=== PATIENT | female | born 1950 | race African-American/Black ===

== ENCOUNTER 2016-04-15 06:32 | Day surgery (SDC) | payer OTHER ==
[2016-02-15 17:42] VITALS: BMI 26.6
[~2016-04-15 06:32] MED LIST: CHONDROITIN SU A/HYALUR SOD 1 KIT IO ONE; EPINEPHrine/PF 1 MG/1 ML (1:1,000) AMPULE SQ ONE; LIDOCAINE HCL 1% PRESERVATIVE FREE - 30ML VIAL IO ONE; LIDOCAINE HCL 2% JELLY (5 ML/TUBE) TP ONE; TOBRA 0.3%/DEXAMETH 0.1% OPHTHALMIC SUSP 2.5 ML BTL TP ONE
[2016-04-15 07:08] VITALS: TEMP 97.7
[2016-04-15] MEDS ORDERED: PHENYLEPHRINE 2.5% OPHTH SOLN 15 ML BOTTLE ONE ×2 (07:09→07:15)
[2016-04-15] MEDS ORDERED: MOXIFLOXACIN HCL 0.5% OPHTHALMIC 3 ML BOTTLE ONE (07:09)
[2016-04-15] MEDS ORDERED: CYCLOPENTOLATE HCL 1% OPHTH SOLN 2 ML BOTTLE ONE (07:09)
[2016-04-15] MEDS ORDERED: TROPICAMIDE 1% OPHTH SOLN 15 ML BOTTLE ONE (07:09)
[2016-04-15] MEDS ORDERED: FLURBIPROFEN 0.03% OPHTH SOLN 2.5 ML BOTTLE ONE (07:16)
[2016-04-15] MEDS ORDERED: EPINEPHrine/PF 1 MG/1 ML (1:1,000) AMPULE ONE (07:18)
[2016-04-15] MEDS ORDERED: TOBRAMYCIN/DEXAMETHASONE OPHTH. OINTMENT 1 TUBE ONE (07:18)
[2016-04-15] MEDS ORDERED: LIDOCAINE HCL 2% JELLY (5 ML/TUBE) ONE (07:19)
[2016-04-15] MEDS ORDERED: POVIDONE-IODINE 5% OPHTHALMIC PREP 30 ML SOLUTION ONE (07:19)
[2016-04-15] MEDS ORDERED: LIDOCAINE HCL/PF 1% SDV 5ML VIAL ONE (07:19)
--- NOTE | 2016-04-15 07:41 | HP ---
History & Physical Update - History History: No Change - Physical Physical: No Change - Assessment Assessment: No Change - Plan Plan: No Change
[2016-04-15] MEDS ORDERED: MIDAZOLAM HCL 2 MG/2 ML SINGLE DOSE VIAL ONE (07:46)
[2016-04-15] MEDS ORDERED: LIDOCAINE HCL 2% JELLY (5 ML/TUBE) TP ONE (07:51)
[2016-04-15] MEDS ORDERED: CHONDROITIN SU A/HYALUR SOD 1 KIT IO ONE (08:02)
[2016-04-15] MEDS ORDERED: LIDOCAINE HCL 1% PRESERVATIVE FREE - 30ML VIAL IO ONE (08:02)
[2016-04-15] MEDS ORDERED: EPINEPHrine/PF 1 MG/1 ML (1:1,000) AMPULE SQ ONE (08:07)
[2016-04-15] MEDS ORDERED: TOBRA 0.3%/DEXAMETH 0.1% OPHTHALMIC SUSP 2.5 ML BTL TP ONE (08:24)
[2016-04-15] MEDS ORDERED: TOBRA 0.3%/DEXAMETH 0.1% OPHTHALMIC SUSP 2.5 ML BTL ONE (08:59)
[2016-04-15 09:21] VITALS: BP 117/49; PULSE 81
--- NOTE | 2016-04-15 11:09 | OP ---
DATE OF OPERATION: 04/15/2016 POSTOPERATIVE DIAGNOSIS: Cataract right eye. PROCEDURE: Phacoemulsification of cataract with posterior chamber lens implant right eye. ANESTHESIA: MAC. COMPLICATIONS: None. DESCRIPTION OF PROCEDURE: After appropriate consent and clearance, the patient was brought to the operating room and administered fractional anesthesia. The patient was prepped and draped in a sterile manner. Attention was turned to the right eye. An incision was made into the anterior chamber followed by injection of lidocaine and viscoelastic. A keratome was used to made a self-sealing corneal incision. Anterior capsulorrhexis was made using a cystotome and Utrata forceps. The lens nucleus was phacoemulsified and aspirated from the eye. Cortical cleanup was performed using the irrigation and aspiration probe. The lens implant was placed with both haptics and optic in the endocapsular bag. Residual viscoelastic was removed from the eye. The patient was discharged to the recovery room in stable condition. The wound was tested to be watertight. PATRICIO DANIELLE M.D. [id number]
== END 2016-04-15 09:24 | disposition home or self-care (01) ==
LOC: JASU-SURG 06:32
PROVIDERS: ATTEND Ophthalmology
PROC: 08RJ3JZ Replacement of Right Lens with Synthetic Substitute, Percutaneous Approach (ICD-10-PCS; principal; 2016-04-15 07:30)
DX: H26.9 Unspecified cataract (principal)

== ENCOUNTER 2016-06-17 17:15 | Emergency (ER) | payer OTHER ==
[2016-06-17 17:28] VITALS: TEMP 98.4; BMI 27.4
--- NOTE | 2016-06-17 22:19 | PDOC ---
History of Present Illness - General Chief Complaint: Chest Pain Stated Complaint: CHEST PAIN Time Seen by Provider: 06/17/16 22:18 Past History - Past Medical History Allergies/Adverse Reactions: Allergies Allergy/AdvReac Type Severity Reaction Status Date / Time No Known Drug Allergies Allergy Verified 04/15/16 07:10 Home Medications: Ambulatory Orders Cholecalciferol (Vitamin D3) [Vitamin D3] 2,000 unit PO DAILY 01/30/16 Flaxseed Oil [Flaxseed] 1,000 mg PO DAILY 01/30/16 Glipizide Xl [Glucotrol Xl -] 5 mg PO DAILY 01/30/16 Lisinopril [Zestril] 30 mg PO DAILY 01/30/16 Metformin HCl [Metformin HCl ER] 1,000 mg PO BIDAC 01/30/16 Simvastatin 10 mg PO HS 01/30/16 Vitamin E 400 unit PO DAILY 01/30/16 Aspirin Coated [Ecotrin -] 81 mg PO DAILY 04/15/16 Anemia: No Asthma: No Cancer: No Cardiac Disorders: No CVA: No COPD: No CHF: No Dementia: No Diabetes: Yes GI Disorders: Yes Disorders: No HTN: Yes Hypercholesterolemia: Yes Liver Disease: No Seizures: No Thyroid Disease: No - Psycho/Social/Smoking Cessation Hx Suicidal Ideation: No Smoking History: Former smoker Have you smoked in the past 12 months: No If you are a former smoker, when did you quit?: ONE YRS AGO Information on smoking cessation initiated: No Hx Alcohol Use: Yes (OCCASIONALLY) Drug/Substance Use Hx: No Substance Use Type: Alcohol Cardiac Specific PMH - Complaint Specific PMHX Pacemaker: No *Physical Exam - Vital Signs Last Vital Signs Temp Pulse Resp BP Pulse Ox 98.4 F 73 18 137/65 98 06/17/16 17:17 06/17/16 17:17 06/17/16 17:17 06/17/16 17:17 06/17/16 17:17
--- NOTE | 2016-06-17 22:20 | PDOC ---
History of Present Illness - General History Source: Patient Exam Limitations: No Limitations - History of Present Illness Initial Comments: 06/17/16 22:34 The patient is a 65 year old female with significant past medical history of hypertension, hyperlipidemia and diabetes who presents to the ED with midsternal chest pain prior to arrival. Patient reports around 4pm today she developed midsternal chest pain that is nonradiating and describes as a discomfort. States 4 days ago while cleaning her home she also developed chest pain with associated nausea and diaphoresis that resolved on its own. She was not diaphoretic or nauseous today. Denies lightheadedness, SOB, jaw pain, shoulder pain, arm pain, leg swelling, or vomiting. At time of evaluation, patient does not have any chest pain. The patient denies fever, chills, cough, abdominal pain, and diarrhea. Allergies: NKDA Social History: No alcohol, tobacco, or drug use reported. Past Surgical History: None reported PCP: Dr. Larry Miranda <Michelle Segovia - Last Filed: 06/17/16 22:34> - General History Source: Patient <StarlaBetinaJordy - Last Filed: 06/17/16 23:57> - General Chief Complaint: Chest Pain Stated Complaint: CHEST PAIN Time Seen by Provider: 06/17/16 22:18 Past History <Michelle Segovia - Last Filed: 06/17/16 22:34> - Past Medical History Anemia: No Asthma: No Cancer: No Cardiac Disorders: No CVA: No COPD: No CHF: No Dementia: No Diabetes: Yes GI Disorders: Yes Disorders: No HTN: Yes Hypercholesterolemia: Yes Liver Disease: No Seizures: No Thyroid Disease: No - Psycho/Social/Smoking Cessation Hx Suicidal Ideation: No Smoking History: Former smoker Have you smoked in the past 12 months: No If you are a former smoker, when did you quit?: ONE YRS AGO Information on smoking cessation initiated: No Hx Alcohol Use: Yes (OCCASIONALLY) Drug/Substance Use Hx: No Substance Use Type: Alcohol <JohnJordy - Last Filed: 06/17/16 23:57> - Past Medical History Allergies/Adverse Reactions: Allergies Allergy/AdvReac Type Severity Reaction Status Date / Time No Known Drug Allergies Allergy Verified 04/15/16 07:10 Home Medications: Ambulatory Orders Cholecalciferol (Vitamin D3) [Vitamin D3] 2,000 unit PO DAILY 01/30/16 Flaxseed Oil [Flaxseed] 1,000 mg PO DAILY 01/30/16 Glipizide Xl [Glucotrol Xl -] 5 mg PO DAILY 01/30/16 Lisinopril [Zestril] 30 mg PO DAILY 01/30/16 Metformin HCl [Metformin HCl ER] 1,000 mg PO BIDAC 01/30/16 Simvastatin 10 mg PO HS 01/30/16 Vitamin E 400 unit PO DAILY 01/30/16 Aspirin Coated [Ecotrin -] 81 mg PO DAILY 04/15/16 Review of Systems - Review of Systems Able to Perform ROS?: Yes Comments:: 06/17/16 22:34 CONSTITUTIONAL: Absent: fever, chills, generalized weakness, malaise, loss of appetite HEENT: Absent: rhinorrhea, nasal congestion, throat pain, throat swelling, difficulty swallowing, mouth swelling, ear pain, eye pain, visual Changes CARDIOVASCULAR: +chest pain Absent: syncope, palpitations, irregular heart rate, lightheadedness , peripheral edema RESPIRATORY: Absent: cough, shortness of breath, dyspnea with exertion, orthopnea, wheezing, stridor, hemoptysis GASTROINTESTINAL: Absent: abdominal pain, abdominal distension, vomiting, diarrhea, constipation, melena, hematochezia GENITOURINARY: Absent: dysuria, frequency, urgency, hesitancy, hematuria, flank pain, genital pain MUSCULOSKELETAL: Absent: myalgia, arthralgia, joint swelling SKIN: Absent: rash, itching, pallor NEUROLOGIC: Absent: headache, focal weakness or paresthesias, dizziness, unsteady gait, seizure, mental status changes, bladder or bowel incontinence <Michelle Segovia - Last Filed: 06/17/16 22:34> *Physical Exam - Vital Signs Last Vital Signs Temp Pulse Resp BP Pulse Ox 98.4 F 73 18 137/65 98 06/17/16 17:17 06/17/16 17:17 06/17/16 17:17 06/17/16 17:17 06/17/16 17:17 - Physical Exam Comments: 06/17/16 22:34 GENERAL: Well developed, well nourished. Awake and alert. No acute distress. HEENT: Normocephalic, atraumatic. PERRLA, EOMI. No conjunctival pallor. Sclera are non- icteric. Moist mucous membranes. Oropharynx is clear. NECK: Supple. Full ROM. No JVD. Carotid pulses 2+ and symmetric, without bruits. No thyromegaly. No lymphadenopathy. CARDIOVASCULAR: Regular rate and rhythm. No murmurs, rubs, or gallops. PULMONARY: No evidence of respiratory distress. Lungs clear to auscultation bilaterally. No wheezing, rales or rhonchi. ABDOMINAL: Soft. Non-tender. Non-distended. No rebound or guarding. No organomegaly. Normoactive bowel sounds. MUSCULOSKELETAL Normal range of motion at all joints. No bony deformities or tenderness. No CVA tenderness. EXTREMITIES: No cyanosis. No clubbing. No edema. No calf tenderness. SKIN: Warm and dry. Normal capillary refill. No rashes. No jaundice. NEUROLOGICAL: Alert, awake, appropriate. Cranial nerves 2-12 intact. Moving all extremities. No focal gross neurological deficits. PSYCHIATRIC: Cooperative. Good eye contact. Appropriate mood and affect. <Michelle Segovia - Last Filed: 06/17/16 22:34> - Vital Signs Last Vital Signs Temp Pulse Resp BP Pulse Ox 98.4 F 73 18 137/65 98 06/17/16 17:17 06/17/16 17:17 06/17/16 17:17 06/17/16 17:17 06/17/16 17:17 <Jordy Lopez - Last Filed: 06/17/16 23:57> Heart Score/ECG Review - ECG Impressions Comment:: 06/17/16 22:35 NSR @69bpm Normal ECG <Michelle Segovia - Last Filed: 06/17/16 22:34> ED Treatment Course - LABORATORY CBC & Chemistry Diagram: 06/17/16 22:25 06/17/16 22:25 <Jordy Lopez - Last Filed: 06/17/16 23:57> Medical Decision Making - Medical Decision Making 06/17/16 23:55 Dr. Lopez: The scribe's documentation has been prepared under my direction and personally reviewed by me in its entirery. I confirm that the note above accurately reflects all work, treatment, procedures, and medical decision making performed by me. Pt labs are negative. Pt has been for 6 hours and has been chest pain free since presentation. Will discharge. <Jordy Lopez - Last Filed: 06/17/16 23:57> *DC/Admit/Observation/Transfer - Attestations Scribe Attestion: 06/17/16 22:35 Documentation prepared by Michelle Segovia, acting as medical assistant secretary for Jordy Lopez MD <Michelle Segovia - Last Filed: 06/17/16 22:34> - Discharge Dispostion Admit: No <Jordy Lopez - Last Filed: 06/17/16 23:57> Diagnosis at time of Disposition: Chest pain Qualifiers: Chest pain type: unspecified Qualified Code(s): R07.9 - Chest pain, unspecified - Discharge Dispostion Disposition: HOME Condition at time of disposition: Stable - Referrals Referrals: Larry Miranda MD [Primary Care Provider] - - Patient Instructions Printed Discharge Instructions: DI for Chest Pain
[2016-06-17 22:43] LABS: BASOPHIL 1.1 % (0-2.0); EOSINOPHIL 3.2 % (0-4.5); MCH 30.1 pg (25.7-33.7); MCHC 33.1 g/dl (32.0-36.0); MEAN CELL VOLUME 90.9 fl (80-96); MEAN PLT VOLUME 7.7 fl (7.5-11.1); NEUTROPHILS 39.3 % (42.8-82.8); PLATELET COUNT 284 K/MM3 (134-434)
[2016-06-17 23:14] LABS: ALBUMIN 3.8 g/dl (3.4-5.0); ANION GAP 11 (8-16); BILIRUBIN,TOTAL 0.3 mg/dL (0.2-1.0); CALCIUM 9.1 mg/dL (8.5-10.1); CO2 27 mmol/L (21-32); CREATININE 0.7 mg/dL (0.55-1.02); GLUCOSE,RANDOM 270 mg/dL (74-106); SGOT/AST 14 U/L (15-37); SGPT/ALT 17 U/L (12-78); TOT PROT 6.7 g/dl (6.4-8.2)
[2016-06-17 23:16] LABS: ALK PHOS 80 U/L (45-117); TROPONIN I < 0.02 ng/ml (0.00-0.05)
[2016-06-18 00:16] VITALS: BP 130/72; PULSE 64
--- NOTE | 2016-06-18 14:14 | EKG ---
Test Reason : Blood Pressure : / mmHG Vent. Rate : 069 BPM Atrial Rate : 069 BPM P-R Int : 158 ms QRS Dur : 086 ms QT Int : 374 ms P-R-T Axes : 050 017 026 degrees QTc Int : 400 ms NORMAL SINUS RHYTHM NORMAL ECG NO PREVIOUS ECGS AVAILABLE Confirmed by SUMEET SALAZAR MD ([id number]) on 06/18/2016 2:14:06 PM Referred By: Confirmed By:SUMEET SALAZAR MD
== END 2016-06-18 00:16 | disposition home or self-care (01) ==
LOC: JER 17:15
DX: R07.9 Chest pain, unspecified (principal); I10 Essential (primary) hypertension; E11.9 Type 2 diabetes mellitus without complications; Z79.84 Long term (current) use of oral hypoglycemic drugs
CPT/HCPCS: 36415; 80053; 82550; 84484; 85025; 93005; 93010; 99284-25

== ENCOUNTER 2016-07-16 09:50 | Inpatient (IN) | payer OTHER ==
--- NOTE | 2016-07-16 10:07 | PDOC ---
History of Present Illness - General History Source: Patient, Family, Old Records Exam Limitations: No Limitations <Breana Portillo - Last Filed: 07/16/16 16:56> - General History Source: Patient, Family Exam Limitations: No Limitations - History of Present Illness Initial Comments: 07/16/16 10:08 The patient is a 65-year-old woman, accompanied by family, with a significant past medical history of hypertension, hypercholesterolemia, diabetes mellitus and GI disorders who presents to the emergency department via walk-in for further evaluation of abdominal pain for the past 3-4 days. Information was obtained by patient;s family, as patient is a poor historian. As per family, the patient has noted to have an unintentional 20 lb weight loss over the past three months. She has been noted to have a loss of appetite, as she easily gets full when she eats snacks and a small ensure bottle. She was noted to complain of lower abdominal pain for the past 4 days. No associated nausea, vomiting, diarrhea or urinary complaints. She is unable to describe the nature of the pain and provide exacerbating/alleviating factors. Patient has not had a full GI workup. No recent fever, chills, cough, shortness of breath. Allergies: No Known Drug Allergies Past Surgical History: None reported Social History: Non-smoker. Drinks 2 beers daily. No recreational drug use. Primary Care Physician: Dr. Larry Miranda [phone]/ [phone] <Jossy Rivera - Last Filed: 07/16/16 17:10> - General Chief Complaint: Pain Stated Complaint: ABD PAIN Time Seen by Provider: 07/16/16 10:07 Past History - Past Medical History Anemia: No Asthma: No Cancer: No Cardiac Disorders: No CVA: No COPD: No CHF: No Dementia: No Diabetes: Yes GI Disorders: Yes Disorders: No HTN: Yes Hypercholesterolemia: Yes Liver Disease: No Seizures: No Thyroid Disease: No - Psycho/Social/Smoking Cessation Hx Anxiety: No Suicidal Ideation: No Smoking History: Never smoked Have you smoked in the past 12 months: No If you are a former smoker, when did you quit?: ONE YRS AGO Hx Alcohol Use: Yes (2 beers daily) Drug/Substance Use Hx: No Substance Use Type: None <Breana Portillo - Last Filed: 07/16/16 16:56> <Jossy Rivera - Last Filed: 07/16/16 17:10> - Past Medical History Allergies/Adverse Reactions: Allergies Allergy/AdvReac Type Severity Reaction Status Date / Time No Known Drug Allergies Allergy Verified 07/16/16 09:56 Home Medications: Ambulatory Orders Glipizide Xl [Glucotrol Xl -] 5 mg PO DAILY 01/30/16 Lisinopril [Zestril] 30 mg PO DAILY 01/30/16 Metformin HCl [Metformin HCl ER] 1,000 mg PO BIDAC 01/30/16 Simvastatin 10 mg PO HS 01/30/16 Aspirin Coated [Ecotrin -] 81 mg PO DAILY 04/15/16 Review of Systems - Review of Systems Able to Perform ROS?: Yes Comments:: 07/16/16 10:08 CONSTITUTIONAL: Present: Loss of appetite. Absent: fever, chills, diaphoresis, generalized weakness, malaise. HEENT: Absent: rhinorrhea, nasal congestion, throat pain, throat swelling, difficulty swallowing, mouth swelling, ear pain, eye pain, visual Changes CARDIOVASCULAR: Absent: chest pain, syncope, palpitations, irregular heart rate , lightheadedness, peripheral edema RESPIRATORY: Absent: cough, shortness of breath, dyspnea with exertion, orthopnea, wheezing, stridor, hemoptysis GASTROINTESTINAL: Present: Abdominal pain. Absent: abdominal distension, nausea , vomiting, diarrhea, constipation, melena, hematochezia GENITOURINARY: Absent: dysuria, frequency, urgency, hesitancy, hematuria, flank pain, genital pain MUSCULOSKELETAL: Absent: myalgia, arthralgia, joint swelling SKIN: Absent: rash, itching, pallor HEMATOLOGIC/IMMUNOLOGIC: Absent: easy bleeding, easy bruising, lymphadenopathy, frequent infections ENDOCRINE: Present: Unexplained weight loss over the past three months. Absent: unexplained weight gain, heat intolerance, cold intolerance NEUROLOGIC: Absent: headache, focal weakness or paresthesias, dizziness, unsteady gait, seizure, mental status changes, bladder or bowel incontinence PSYCHIATRIC: Absent: anxiety, depression, suicidal or homicidal ideation, hallucinations <Jossy Rivera - Last Filed: 07/16/16 17:10> *Physical Exam - Vital Signs Last Vital Signs Temp Pulse Resp BP Pulse Ox 97.5 F L 112 H 20 131/70 97 07/16/16 09:53 07/16/16 09:53 07/16/16 09:53 07/16/16 09:53 07/16/16 09:53 <Breana Portillo - Last Filed: 07/16/16 16:56> - Vital Signs Last Vital Signs Temp Pulse Resp BP Pulse Ox 97.5 F L 112 H 20 131/70 97 07/16/16 09:53 07/16/16 09:53 07/16/16 09:53 07/16/16 09:53 07/16/16 09:53 - Physical Exam Comments: 07/16/16 10:08 GENERAL: Awake and alert. No acute distress. Frail appearing. HEENT: Normocephalic, atraumatic. +Temporal wasting. PERRL, EOMI. No conjunctival pallor. +Sclera are icteric. +Dry mucous membranes. Oropharynx is clear. NECK: Supple. Full ROM. No JVD. CARDIOVASCULAR: Tachycardic rate but regular rate and rhythm. No murmurs, rubs, or gallops. PULMONARY: +Diffuse dyspneic breath sounds that are equal bilaterally. No wheezing, crackles or rhonchi. ABDOMINAL: Firm but soft abdomen. Diffuse tenderness to palpation without rebound or guarding. Non-distended. No organomegaly. Normoactive bowel sounds. MUSCULOSKELETAL: Normal range of motion at all joints. No bony deformities or tenderness. No CVA tenderness. EXTREMITIES: No cyanosis. No clubbing. No edema. No calf tenderness. SKIN: Tenting of the skin. Jaundiced. No rashes. NEUROLOGICAL: Alert, awake, appropriate. Cranial nerves 2-12 intact. Normal speech. PSYCHIATRIC: Cooperative. Good eye contact. Appropriate mood and affect. <Jossy Rivera - Last Filed: 07/16/16 17:10> ED Treatment Course - LABORATORY CBC & Chemistry Diagram: 07/16/16 10:19 07/16/16 10:42 <Breana Portillo - Last Filed: 07/16/16 16:56> - LABORATORY CBC & Chemistry Diagram: 07/16/16 10:19 07/16/16 10:42 - RADIOLOGY Radiograph Interpretation: 07/16/16 11:03 EXAM: RAD/CHEST X-RAY PORTABLE Interpreted by Dr. Pietro Fried IMPRESSION: Single semierect portable chest x-ray. Patient is rotated toward the right side. Mildly uncoiled thoracic aorta. The cardiac silhouette is not enlarged. No evidence of vascular congestion, or pneumothorax. Bilateral basilar atelectatic changes - right greater than the left. No evidence of pneumonia. No large pleural effusion or pneumothorax is seen. Osteoarthritis of the right glenohumeral joint with narrowing of interval between the acromion and humeral head. Cystic changes are noted in the right humeral head. Intact visualized osseous structures. EXAM: CT/HEAD CT WITHOUT CONTRAST Interpreted by Dr. Pietro Fried IMPRESSION: Comparison study MRI of the brain February 23, 2015. Findings. Serial axial images of the brain were obtained from foramen magnum to the cranial vertex without intravenous contrast, with coronal, sagittal reconstruction images. No evidence of hydrocephalus, acute subarachnoid hemorrhage, acute intra-axial or extra-axial fluid collection consistent with subdural or epidural hematoma. No mass effect, midline shift, acute ischemic changes, herniation or edema is present. Normal yancey matter white matter differentiation. The cortical sulci, sylvian fissures, perimesencephalic cisterns are not effaced. The CSF spaces are age-appropriate. Supratentorial periventricular chronic white matter microangiopathic ischemic changes are noted. Examination of the bone windows show no fracture. Normal intracranial physiological calcifications are observed. The cranial vascular calcifications are noted. The visualized paranasal sinuses and mastoid air cells are clear. EXAM: CT/ABDOMEN PELVIS CT W/O CONTR Interpreted by Dr. Jennifer Day IMPRESSION: CT scan of the abdomen pelvis following oral contrast administration only Coronal and sagittal reformatted images were obtained No prior is available for comparison. Abdominal pain. Elevated liver function tests CT scan of the abdomen pelvis following oral contrast administration only Coronal and sagittal reformatted images were obtained No prior is available for comparison. Included lower lung demonstrates a small right pleural effusion with consolidation/atelectasis in the dependent portion of the right lower lobe. There is also consolidation/atelectasis in the right middle lobe and in the left lung base. The heart is within normal limits in size. There is a trace of pericardial effusion The liver measures 18.5 cm in craniocaudal length. The spleen, pancreas, both adrenal glands and both kidneys appear unremarkable except for a small left renal cyst measuring 1 cm. There are is excretion of oral contrast within the pelvicalyceal system of both kidneys suggestive of recent intravenous contrast injection. The gallbladder is adequately distended with mild thickening of its wall and small amount of pericholecystic free fluid. There is free air in the upper abdomen floating anteriorly. There is also a small amount of free air in the pelvis floating, anteriorly. A small amount of hyperdense fluid is seen around the liver suggestive of perforated viscus with extravasation of oral contrast. The stomach is partially distended limiting evaluation of its wall with suggestion of thickening of the gastric antrum wall. Duodenum is not well-visualized. There is mild diffuse dilatation of the small bowel loops with thickening of the jejunal loops. There is significant thickening of the transverse and distal portion of the ascending colon consistent with colitis. A few scattered diverticula are present mainly in the descending and proximal sigmoid colon without evidence of acute diverticulitis. Moderate amount of fecal residue in the distal sigmoid colon rule out impaction. Perirectal fat is clear. A Bacon catheter is present within decompressed urinary bladder with minimal intraluminal air. There is a moderate amount of hyperdense fluid in the pelvis seen anterior and superior to the urinary bladder. L4-L5 moderate degenerative disc disease. Visualized osseous structures appear otherwise intact <Jossy Rivear - Last Filed: 07/16/16 17:10> Medical Decision Making - Medical Decision Making 07/16/16 12:31 65-year-old female with history of hypertension, high cholesterol, diabetes who presents the emergency department with several month history of the loss as well as mid abdominal pain and nausea as well as early satiety. She is jaundiced and appears a bit confused. Differential diagnosis includes but is not limited to: Gastrointestinal cancer, small bowel obstruction, dehydration, acute kidney injury, electrolyte abnormality, toxic/metabolic derangement. Plan: 1. Labs 2. IV fluids for hydration 3. Antiemetics 4. CT scan of the abdomen and pelvis 5. Observe and reevaluate 07/16/16 13:05 Addendum: CT scan of the head was obtained to evaluate the patient's mental status which appeared to be a little confused although she was oriented--that was negative. The labs were reviewed and are noted in the EMR. The BUN/ creatinine are elevated as well as the LFT's as compared to labs done one month ago. Will admit to med/surg for ZAHIRA and dehydration. CT scan of the abdomen and pelvis with oral contrast has been ordered. 07/16/16 16:56 Addendum: Called by radiology for CT scan read: +FF and free air in the abdomen with unclear source of perforated viscous. Also thickening of colon c/ w colitis. The patient has been pancultured and started on Zosyn and Flagyl. Lactate and pre-op labs were sent. Surgery consult was paged--Dr. Louise. Second IV catheter was placed for IVF resuscitation. The patient has been upgraded to the ICU. <Breana Portillo - Last Filed: 07/16/16 16:56> - Medical Decision Making 07/16/16 16:[address] Miranda. Cased discussed. Wants Dr. Louise on board. 07/16/16 16:[address] Louise. <Jossy Rivera - Last Filed: 07/16/16 17:10> *DC/Admit/Observation/Transfer - Discharge Dispostion Admit: Yes - Attestations Physician Attestion: 07/16/16 12:33 I, Dr. Breana Portillo, attest that the scribes documentation that appears above has been prepared under my direction and personally reviewed by me in its entirety. I confirmed that the note above accurately reflects all work, treatment, procedures, and medical decision-making performed by me. <Breana Portillo - Last Filed: 07/16/16 16:56> - Attestations Scribe Attestion: 07/16/16 10:54 Documentation prepared by Jossy Rivera, acting as ophthalmic medical technician for Breana Portillo MD. <Jossy Rivera - Last Filed: 07/16/16 17:10> Diagnosis at time of Disposition: Abdominal pain, Jaundice, Perforated abdominal viscus - Discharge Dispostion Condition at time of disposition: Guarded - Referrals
[2016-07-16] MEDS ORDERED: SODIUM CHLORIDE 1,000 ML IV STA ×4 (10:35→16:51)
[2016-07-16 10:45] LABS: MCH 29.1 pg (25.7-33.7); MCHC 32.5 g/dl (32.0-36.0); MEAN CELL VOLUME 89.4 fl (80-96); MEAN PLT VOLUME 7.5 fl (7.5-11.1); PLATELET COUNT 365 K/MM3 (134-434); RDW 13.3 % (11.6-15.6); WHITE BLOOD COUNT 8.8 K/mm3 (4.0-10.0)
[2016-07-16 11:16] LABS: CALCIUM 9.4 mg/dL (8.5-10.1)
[2016-07-16 11:22] LABS: ALBUMIN 3.2 g/dl (3.4-5.0); BILIRUBIN,TOTAL 0.5 mg/dL (0.2-1.0); CREATININE 2.3 mg/dL (0.55-1.02)
[2016-07-16 11:41] LABS: ALBUMIN 3.3 g/dl (3.4-5.0); ALK PHOS 80 U/L (45-117); ANION GAP 17 (8-16); BILIRUBIN,DIRECT 0.1 mg/dL (0.0-0.2); BILIRUBIN,TOTAL 0.4 mg/dL (0.2-1.0); CALCIUM 9.5 mg/dL (8.5-10.1); CO2 22 mmol/L (21-32); COCKROFT - GAULT 21.1735; CREATININE 2.4 mg/dL (0.55-1.02); GLUCOSE,RANDOM 234 mg/dL (74-106); MAGNESIUM 2.2 mg/dL (1.8-2.4); PHOSPHOROUS 2.1 mg/dL (2.5-4.9); SGOT/AST 124 U/L (15-37); SGPT/ALT 74 U/L (12-78); TOT PROT 6.9 g/dl (6.4-8.2); TROPONIN I < 0.02 ng/ml (0.00-0.05)
--- NOTE | 2016-07-16 13:24 | EKG ---
Test Reason : Blood Pressure : / mmHG Vent. Rate : 108 BPM Atrial Rate : 108 BPM P-R Int : 154 ms QRS Dur : 086 ms QT Int : 316 ms P-R-T Axes : 018 032 022 degrees QTc Int : 423 ms SINUS TACHYCARDIA OTHERWISE NORMAL ECG WHEN COMPARED WITH ECG OF 17-JUN-2016 17:25, VENT. RATE HAS INCREASED BY 39 BPM Confirmed by SUMEET SALAZAR MD ([id number]) on 07/16/2016 1:23:57 PM Referred By: Confirmed By:SUMEET SALAZAR MD
[2016-07-16 14:26] LABS: URINE APPEARANCE SLCLOUDY; URINE BILIRUBIN NEGATIVE (NEGATIVE); URINE COLOR YELLOW; URINE GLUCOSE (UA) 1+ (NEGATIVE); URINE KETONE NEGATIVE (NEGATIVE); URINE LEUK ESTERASE NEGATIVE (NEGATIVE); URINE NITRITE NEGATIVE (NEGATIVE); URINE UROBILINOGEN NEGATIVE E.U./dl (0.2-1.0)
[2016-07-16] MEDS ORDERED: ONDANSETRON 4 MG/2 ML VIAL IVPUSH ONE (14:59)
[2016-07-16 15:14] LABS: URINE BLOOD 2+ (NEGATIVE); URINE PROTEIN 1+ (NEGATIVE)
[2016-07-16] MEDS ORDERED: ONDANSETRON 4 MG/2 ML VIAL ONE (15:47)
[2016-07-16 16:17] LABS: METAMYELOCYTE 6 % (0-2)
[2016-07-16 16:18] LABS: PLATELET ESTIMATE ADEQUATE (NORMAL)
[2016-07-16 16:24] LABS: GRANULAR CASTS 27 /lpf; URINE HYALINE CAST 3 /lpf; URINE MUCUS RARE; URINE RBC 2 /hpf (0-3); URINE WBC 3 /hpf (3-5)
[2016-07-16] MEDS ORDERED: PIPERACILLIN/TAZOB 3.375 GM/50 ML PRE-DOCKED IV ONE (16:49)
[2016-07-16] MEDS ORDERED: METRONIDAZOLE 500 MG PREMIXED 100 ML IVPB ONE ×2 (16:49→17:14)
[2016-07-16] MEDS ORDERED: ACETAMINOPHEN INJECTION 100 ML IVPB ONE (16:51)
[2016-07-16] MEDS ORDERED: ACETAMINOPHEN 1000 MG/100 ML VIAL (NON FORMULARY) IVPB ONE (16:52)
--- NOTE | 2016-07-16 17:05 | CONSULT ---
Consultation: REQUESTING PROVIDER: Dr. Portillo CONSULT REQUEST: We have been asked to medically evaluate this patient for ICU admission. HISTORY OF PRESENT ILLNESS: 65 yr old woman with HTN, DM II, Dementia brought in by for progressively worsening abdominal pain since Thursday. Patient is a poor historian due to her dementia, she is oriented to self, knows this is a hospital, but not date or condition. is primary caregiver and provided the history. Pain started gradually on Thursday after dinner, she lost her appetite and did not eat much after the pain started. He gave her pepto bismal which didn't seem to help much. On Thursday while walking she was complaining of abdominal pain which seemed to be relieved by leaning forward. notes a 20-lb unintentional weight loss in the last 3 months. no previous hx of similar abdominal pain. last bowel movement was in the ED this afternoon. Denies vomiting, complaints of fever, chest pain, palpitations, hematochezia. PCP: Dr. Larry Miranda [phone]/ [phone] PMHx NIDDM II HTN HLD Dementia osteoarthritis Surghx cataract surgery left eye 01/21/2016 Socialx lives with , has one daughter, has a 6th grade education drinks 2-3 12oz cans of coors light daily, chews tobacco REVIEW OF SYSTEMS: CONSTITUTIONAL: Present: loss of appetite, weight change Absent: fever, chills, diaphoresis, generalized weakness, malaise, CARDIOVASCULAR: Absent: chest pain, syncope, palpitations, irregular heart rate, lightheadedness , peripheral edema RESPIRATORY: Absent: cough, shortness of breath, GASTROINTESTINAL: Present: abdominal pain, Absent: abdominal distension, nausea, vomiting, diarrhea, constipation, melena, hematochezia GENITOURINARY: Absent: frequency MUSCULOSKELETAL: Absent: myalgia, arthralgia, joint swelling, back pain, neck pain SKIN: Absent: rash, itching, pallor NEUROLOGIC: Absent: headache, focal weakness or paresthesias, dizziness, unsteady gait, seizure, mental status changes, bladder or bowel incontinence PHYSICAL EXAMINATION Vital Signs - 24 hr 07/16/16 16:52 Temperature 100.8 F H Pulse Rate [ 139 H Apical] Respiratory 28 H Rate Blood Pressure 135/70 [Left Arm] O2 Sat by Pulse 100 Oximetry (%) GENERAL: Awake, alert, and oriented to person, in no acute distress. HEAD: Normal with no signs of trauma. EYES: Pupils constricted-s/p cataract surgery, extraocular movements intact, sclera mildly icteric, conjunctiva clear. No lid lag. EARS, NOSE, THROAT: nares patent, oropharynx clear without exudates. dry mucous membranes. eduntulism. NECK: Normal range of motion, supple without lymphadenopathy, JVD, or masses. LUNGS: Breath sounds equal, clear to auscultation bilaterally. No wheezes, and no crackles. No accessory muscle use. HEART: Regular rate and rhythm, normal S1 and S2 without murmur, rub or gallop. ABDOMEN: Soft, nontender, not distended, hypoactive bowel sounds, no guarding, no rebound, no masses. MUSCULOSKELETAL: Normal range of motion at all joints. No bony deformities or tenderness. UPPER EXTREMITIES: 2+ pulses, warm, well-perfused. No cyanosis. No clubbing. No peripheral edema. 4/5 b/l hand clinical trial head. 4/5 dorsi/plantar flexion strength. LOWER EXTREMITIES: 2+ pulses, warm, well-perfused. No calf tenderness. No peripheral edema. NEUROLOGICAL: Cranial nerves II-XII intact. facial symmetry. follows commands appropriately. PSYCHIATRIC: Cooperative. Good eye contact. SKIN: Warm, dry, reduced turgor, no rashes or lesions noted. Home Medications Medication Instructions Recorded Glipizide Xl [Glucotrol Xl -] 5 mg PO DAILY 01/30/16 Lisinopril [Zestril] 30 mg PO DAILY 01/30/16 Metformin HCl [Metformin HCl ER] 1,000 mg PO BIDAC 01/30/16 Simvastatin 10 mg PO HS 01/30/16 Aspirin Coated [Ecotrin -] 81 mg PO DAILY 04/15/16 Active Medications Generic Name Dose Route Start Last Admin Trade Name Freq PRN Reason Stop Dose Admin Metronidazole 100 mls @ 100 mls/hr 07/16/16 16:49 Flagyl 500mg Premixed Ivpb - IVPB 07/16/16 17:48 ONCE ONE Sodium Chloride 1,000 mls @ 1,000 mls/hr 07/16/16 16:50 Normal Saline - IV 07/16/16 17:49 ASDIR STA Sodium Chloride 1,000 mls @ 1,000 mls/hr 07/16/16 16:51 Normal Saline - IV 07/16/16 17:50 ASDIR STA ASSESSMENT/PLAN: 65 yr old woman with NIDDM II, Dementia, HTN brought by for abdominal pain found to have free in the abdomen on CT scan. Gastrointestinal - Dr. Louise consulted; to OR for Ex-lap to locate source of pneumoperitoneum - NGT in place, NPO - IV zosyn 3.375gm q8hr + flagyl 500mg IVpb q8hr + diflucan 200mg Ivpb q24hr - broad spectrum coverage for gram +/-, enterococcus, and fungal given diabetic pt with likely upper GI source of pneumoperitoneum - transaminitis (isolated AST elevated) likely from ETOH - IVF D5-LR @125ml/hr - pain control post-op Renal - ZAHIRA, 06/17/2016 Cr 0.7 - with elevated BUN, likely pre-renal due to poor po intake - IVF - repeat BMP - hold Lisinopril 30mg po daily and ASA 81mg, avoid nephrotoxic medications - Bacon placed in ED pre-op Infectious Disease - consulted - zosyn + flagyl + diflucan - monitor for fevers, tylenol IVPB - pending blood cultures - lactic acidosis, likely from pneumoperitoneum - IVF Endocrine NIDDM II - currently NPO and for OR - D5+ LR post op, start BGM post-op + NISS - hold glipizide 5mg po Cardivascular HTN - hold lisinopril CAD - hold simvastatin Hematologic - monitor H/H post-op - leukopenia, repeat labs Neurologic Dementia not on medications, monitor closely to prevent unintentional ripping of IV access and NG tube Diet: NPO DVT- SCD's Dispo: We will continue to follow the patient. Thank you for this consultative opportunity. Visit type - Emergency Visit Emergency Visit: Yes ED Registration Date: 07/16/16 Care time: The patient presented to the Emergency Department on the above date and was hospitalized for further evaluation of their emergent condition. - New Patient This patient is new to me today: Yes Date on this admission: 07/16/16 - Critical Care Critical Care patient: Yes Total Critical Care Time (in minutes): 45 Critical Care Statement: The care of this patient involved high complexity decision making to prevent further life threatening deterioration of the patient 's condition and/or to evalute & treat vital organ system(s) failure or risk of failure.
[2016-07-16] MEDS ORDERED: PIPERACILLIN/TAZOB 3.375 GM 50 ML IVPB ONE (17:13)
[2016-07-16 17:21] LABS: MCH 29.2 pg (25.7-33.7); MCHC 32.3 g/dl (32.0-36.0); MEAN CELL VOLUME 90.6 fl (80-96); MEAN PLT VOLUME 7.7 fl (7.5-11.1); PLATELET COUNT 323 K/MM3 (134-434); RDW 13.6 % (11.6-15.6)
[2016-07-16 17:29] LABS: WHITE BLOOD COUNT 0.7 K/mm3 (4.0-10.0)
[2016-07-16 17:38] LABS: INR 1.36 (0.82-1.09); PROTHROMBIN TIME (PATIENT) 15.1 SEC (9.98-11.88)
[2016-07-16 17:40] LABS: ACTIVATED PTT 31.4 SECONDS (26.9-34.4)
[2016-07-16] MEDS ORDERED: ONDANSETRON 4 MG/2 ML VIAL IVPB PRN (17:47)
[2016-07-16] MEDS ORDERED: ROCURONIUM BROMIDE 50 MG/5 ML VIAL ONE (17:53)
[2016-07-16] MEDS ORDERED: PROPOFOL 20 ML ONE (17:53)
[2016-07-16] MEDS ORDERED: ePHEDrine SULFATE 50 MG/1 ML AMPULE ONE (17:53)
[2016-07-16 17:54] LABS: ALBUMIN 2.4 g/dl (3.4-5.0); BILIRUBIN,TOTAL 0.3 mg/dL (0.2-1.0); CALCIUM 7.8 mg/dL (8.5-10.1); COCKROFT - GAULT 42.347; CREATININE 1.2 mg/dL (0.55-1.02)
[2016-07-16] MEDS ORDERED: SODIUM CHLORIDE 1,000 ML IV SCH (18:00)
[2016-07-16] MEDS ORDERED: DESFLURANE GAS 240 ML BOTTLE IH ONE (18:20)
[2016-07-16 18:26] LABS: METAMYELOCYTE 2 % (0-2); PLATELET ESTIMATE ADEQUATE (NORMAL)
[2016-07-16 18:27] LABS: PLATELET COMMENT2 RARE GIANT PLTS
--- NOTE | 2016-07-16 18:34 | CONSULT ---
Consult Consult Specialty:: Surgery Referred by:: Dr. Ruben Juarez Reason for Consultation:: Perforated viscus - History of Present Illness Chief Complaint: Abdominal pain for 3 days, according to the patient's . Denies any vomiting. She has had chronic abdominal pain, she drinks 3-4 cans of beer daily, and chews tobacco. H/O dementia. History of Present Illness: C/O Abdominal pain for 3 days, no vomiting. Has had some abdominal pain for a long time. She drinks beer daily , 3-4 cans, and chews tobacco as per patients . H/O dementia. 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 - Alcohol/Substance Use Hx Alcohol Use: Yes (2 beers daily) - Smoking History Smoking history: Never smoked Have you smoked in the past 12 months: No If you are a former smoker, when did you quit?: ONE YRS AGO - Social History Usual Living Arrangement: With Spouse Home Medications - Allergies Allergies/Adverse Reactions: Allergies Allergy/AdvReac Type Severity Reaction Status Date / Time No Known Drug Allergies Allergy Verified 07/16/16 09:56 - Home Medications Home Medications: Ambulatory Orders Glipizide Xl [Glucotrol Xl -] 5 mg PO DAILY 01/30/16 Lisinopril [Zestril] 30 mg PO DAILY 01/30/16 Metformin HCl [Metformin HCl ER] 1,000 mg PO BIDAC 01/30/16 Simvastatin 10 mg PO HS 01/30/16 Aspirin Coated [Ecotrin -] 81 mg PO DAILY 04/15/16 Review of Systems - Review of Systems Gastrointestinal: reports: Abdominal Pain Physical Exam Vital Signs: Vital Signs Temperature 100.8 F H 07/16/16 16:52 Pulse Rate 124 H 07/16/16 17:58 Respiratory Rate 26 H 07/16/16 17:58 Blood Pressure 97/60 07/16/16 17:58 O2 Sat by Pulse Oximetry (%) 100 07/16/16 17:58 Gastrointestinal: Yes: Soft (No distention , tender in periumbilical area.) Labs: CBC, BMP 07/16/16 17:00 07/16/16 17:00 Imaging - Results Cat Scan: Report Reviewed, Image Reviewed (Free airv intraabdominally , predominantly in upper abdomen.) Problem List - Problems (1) Abdominal pain Code(s): R10.9 - UNSPECIFIED ABDOMINAL PAIN Qualifiers: Abdominal location: periumbilical Qualified Code(s): R10.33 - Periumbilical pain (2) Perforated abdominal viscus Code(s): LBD6222 - (3) Perforated viscus Code(s): R19.8 - OTH SYMPTOMS AND SIGNS INVOLVING THE DGSTV SYS AND ABDOMEN (4) Hypertension Code(s): I10 - ESSENTIAL (PRIMARY) HYPERTENSION Qualifiers: Hypertension type: essential hypertension Qualified Code(s): I10 - Essential (primary) hypertension Assessment/Plan Perforated viscus. ? Gastric perforation , ? liver cirrhosis, Jaundice. Plan : Exploratory laparotomy, repair of perforated viscus, Resuscitation, antibiotics. patient and her have been explained.
[2016-07-16] MEDS ORDERED: MIDAZOLAM HCL 2 MG/2 ML SINGLE DOSE VIAL ONE ×5 (18:56→20:35)
[2016-07-16] MEDS ORDERED: BENZOIN/ALOE VERA/STORAX/TOLU 58 ML BOTTLE ONE (19:21)
[2016-07-16] MEDS ORDERED: NOREPINEPHRINE BITARTRATE 4 MG/4 ML ML IV ONE ×2 (19:35→22:37)
[2016-07-16] MEDS ORDERED: morphine CARPU-JECT 2 MG/1 ML DISP.SYRIN IVPUSH PRN (20:37)
--- NOTE | 2016-07-16 20:59 | OP ---
Operative Note - Note: Operative Date: 07/16/16 Pre-Operative Diagnosis: Perforated abdominal viscus,. Sepsis,. Peritonitis,. hypertension , Lactic acidosis Operation: Exploratory laparotomy,. Repair of perforated duodenal ulcer, enterorhaphy,. Plication and placement of omental patch,. Lysis of peritoneal adhesions,. Peritoneal wash out, and debridement of peritoneal exudate. Findings: 2 cm. perforated ulcer , on anterior wall of second portion of duodenum, Adhesion of gallbladder and under surface of the liver to the duodenum, Diffuse peritonitis, with exudate. Post-Operative Diagnosis: Other (Perforation of the anterior wall of the first portion of the duodenum, peritoneal adhesions of gallbladder and liver, diffuse peritonitis with purulent exudates on the peritoneum and intestine.) Surgeon: Ariadna Louise Raise Driller: Fidelia Ibarra Anesthesiologist/VETERINARY TECHNICIAN INSTRUCTOR: Hollis Granado I Anesthesia: General Estimated Blood Loss (mls): 50 Instrument used (Debridements only): Scissors. Drains & Tubes with Location: Annmarie sump drain in the subheaptic space, brought out through the skin in the right flank. Operative Report Dictated: Yes
[2016-07-16 21:01] LABS: MEAN PLT VOLUME 7.3 fl (7.5-11.1)
[2016-07-16 21:05] LABS: MCH 29.5 pg (25.7-33.7); MCHC 32.8 g/dl (32.0-36.0); MEAN CELL VOLUME 89.9 fl (80-96); PLATELET COUNT 281 K/MM3 (134-434); RDW 13.6 % (11.6-15.6)
[2016-07-16] MEDS ORDERED: PHENYLEPHRINE HCL 10 MG/1 ML SINGLE DOSE VIAL ONE (21:11)
[2016-07-16 21:12] LABS: WHITE BLOOD COUNT 0.7 K/mm3 (4.0-10.0)
[2016-07-16 21:20] LABS: COCKROFT - GAULT 46.1975; CREATININE 1.1 mg/dL (0.55-1.02)
[2016-07-16 21:37] LABS: ARTERIAL BLD GAS O2 SATURATION 99.2 % (90-98.9); ARTERIAL BLOOD GAS BASE EXCESS -9.2 meq/l (-2-2); ARTERIAL BLOOD GAS pH 7.36 (7.35-7.45)
[2016-07-16 21:38] LABS: ART PUNCT SITE ARTERIAL LINE; LPM/O2% 100%; MECH. VENT. ESPRIT; PT. ON O2? YES; TYPE OF O2 OT; VENT RATE 12; VT/PRESS 450
[2016-07-16] MEDS ORDERED: MUPIROCIN 2% TOPICAL OINTMENT FOR DECOLONIZATION NS SCH ×2 (22:00)
[2016-07-16] MEDS ORDERED: CHLORHEXIDINE GLUCONATE 4% CLEANSER FOR DECOLONIZATION TP SCH ×2 (22:00)
[2016-07-16] MEDS ORDERED: FLUCONAZOLE 200 MG PREMIX BAG (IN SALINE) IVPB ONE (22:00)
[2016-07-16] MEDS ORDERED: LACTATED RINGERS SOLUTION 1,000 ML IV STA (22:14)
[2016-07-16] MEDS ORDERED: POTASSIUM CHLORIDE 20 MEQ PREMIX IVPB 100 ML IVPB ONE (22:14)
[2016-07-16] MEDS ORDERED: CALCIUM GLUCONATE 10% - 1,000 MG/10 ML VIAL IVPB ONE (22:14)
[2016-07-16] MEDS: DEXTROSE 5%-LACTATED RINGERS 1,000 ML IV SCH (23:02)
[2016-07-16] MEDS: MUPIROCIN 2% TOPICAL OINTMENT FOR DECOLONIZATION NS SCH (23:02)
[2016-07-16] MEDS: CHLORHEXIDINE GLUCONATE 4% CLEANSER FOR DECOLONIZATION TP SCH (23:03)
[2016-07-16] MEDS: MIDAZOLAM 100 MG in SODIUM CHLORIDE 100 ML IVPB SCH (23:06)
[2016-07-16] MEDS: FENTANYL INJECTION 500 MCG in DEXTROSE 5%-WATER - 90 ML IJ SCH (23:06)
[2016-07-16] MEDS ORDERED: PHENYLEPHRINE HCL 10,000 MCG in DEXTROSE 5%-WATER - 499 ML IV SCH ×2 (23:15→23:45)
[2016-07-16] MEDS: NOREPINEPHRINE BITARTRATE 8,000 MCG in DEXTROSE 5%-WATER - 492 ML IV SCH (23:15)
[2016-07-16] MEDS: PHENYLEPHRINE HCL 10,000 MCG in DEXTROSE 5%-WATER - 499 ML IV SCH (23:45)
[2016-07-16 23:53] VITALS: BMI 27.8
[2016-07-17] MEDS ORDERED: METRONIDAZOLE 500 MG PREMIXED 100 ML IVPB ONE ×2
[2016-07-17] MEDS ORDERED: FLUCONAZOLE 200 MG/D5W 100 ML IVPB ONE ×2
[2016-07-17] MEDS ORDERED: PIPERACILLIN/TAZOB 3.375 GM/50 ML PRE-DOCKED IVPB ONE ×2
[2016-07-17] MEDS: LACTATED RINGERS SOLUTION 1,000 ML IV SCH (00:46)
--- NOTE | 2016-07-17 01:00 | CONSULT ---
Consult Consult Specialty:: Pulmonary Critical Care Referred by:: Dr. Louise Reason for Consultation:: s/p repair of duodenal perforation - History of Present Illness Chief Complaint: Abdominal Pain, s/p Repair of Duodenal Perforation History of Present Illness: The patient is a 65-year-old woman, accompanied by family, with a significant past medical history of hypertension, hypercholesterolemia, diabetes mellitus and GI disorders who presented to the emergency department via walk-in for further evaluation of abdominal pain for the past 3-4 days. Information was obtained by patient's family, as patient is a poor historian. As per family, the patient has noted to have an unintentional 20 lb weight loss over the past three months. She has been noted to have a loss of appetite, as she easily gets full when she eats snacks and a small ensure bottle. She was noted to complain of lower abdominal pain for the past 4 days. No associated nausea, vomiting, diarrhea or urinary complaints. She is unable to describe the nature of the pain and provide exacerbating/alleviating factors. Patient has not had a full GI workup. No recent fever, chills, cough, shortness of breath. W/u via Abd CT revealed free air and surgery then consulted for emergent laparotomy. 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 ...: No - Alcohol/Substance Use Hx Alcohol Use: Yes (2 beers daily) - Smoking History Smoking history: Never smoked Have you smoked in the past 12 months: No If you are a former smoker, when did you quit?: ONE YRS AGO - Social History Usual Living Arrangement: With Spouse Home Medications - Allergies Allergies/Adverse Reactions: Allergies Allergy/AdvReac Type Severity Reaction Status Date / Time No Known Drug Allergies Allergy Verified 07/16/16 09:56 - Home Medications Home Medications: Ambulatory Orders Glipizide Xl [Glucotrol Xl -] 5 mg PO DAILY 01/30/16 Lisinopril [Zestril] 30 mg PO DAILY 01/30/16 Metformin HCl [Metformin HCl ER] 1,000 mg PO BIDAC 01/30/16 Simvastatin 10 mg PO HS 01/30/16 Aspirin Coated [Ecotrin -] 81 mg PO DAILY 04/15/16 Physical Exam Vital Signs: Vital Signs Temperature 99 F 07/16/16 23:30 Pulse Rate 135 H 07/17/16 00:06 Respiratory Rate 18 07/17/16 00:17 Blood Pressure 113/49 07/17/16 00:06 O2 Sat by Pulse Oximetry (%) 100 07/17/16 00:06 Constitutional: Yes: No Distress Eyes: Yes: PERRL HENT: Yes: Atraumatic, Normocephalic Neck: Yes: Supple, Trachea Midline Cardiovascular: Yes: Tachycardia, S1, S2 Respiratory: Yes: Mechanically Ventilated, Rhonchi Gastrointestinal: Yes: Soft, Hypoactive Bowel Sounds ...Rectal Exam: Yes: Deferred Renal/: Yes: Williamson Present Extremities: Yes: WNL Edema: No Peripheral Pulses WNL: Yes (2+ throughout) Integumentary: Yes: WNL Wound/Incision: Yes: Clean/Dry, Dressing Dry and Intact Neurological: Yes: Other (Sedated) Labs: CBC, BMP 07/16/16 20:40 07/16/16 20:40 CBCD WBC 0.7 K/mm3 (4.0-10.0) L* 07/16/16 20:40 RBC 2.93 M/mm3 (3.60-5.2) L 07/16/16 20:40 Hgb 8.6 GM/dL (10.7-15.3) L D 07/16/16 20:40 Hct 26.3 % (32.4-45.2) L D 07/16/16 20:40 MCV 89.9 fl (80-96) 07/16/16 20:40 MCHC 32.8 g/dl (32.0-36.0) 07/16/16 20:40 RDW 13.6 % (11.6-15.6) 07/16/16 20:40 Plt Count 281 K/MM3 (134-434) 07/16/16 20:40 MPV 7.3 fl (7.5-11.1) L 07/16/16 20:40 CMP Sodium 141 mmol/L (136-145) 07/16/16 20:40 Potassium 3.4 mmol/L (3.5-5.1) L 07/16/16 20:40 Chloride 110 mmol/L (98-107) H 07/16/16 20:40 Carbon Dioxide 18 mmol/L (21-32) L 07/16/16 20:40 Anion Gap 13 (8-16) 07/16/16 20:40 BUN 28 mg/dL (7-18) H 07/16/16 20:40 Creatinine 1.1 mg/dL (0.55-1.02) H 07/16/16 20:40 Creat Clearance w eGFR 44.81 (>60) 07/16/16 17:00 Calcium 7.0 mg/dL (8.5-10.1) L 07/16/16 20:40 Total Bilirubin 0.3 mg/dL (0.2-1.0) D 07/16/16 17:00 AST 79 U/L (15-37) H D 07/16/16 17:00 ALT 58 U/L (12-78) D 07/16/16 17:00 Alkaline Phosphatase 60 U/L (45-117) D 07/16/16 17:00 Total Protein 5.0 g/dl (6.4-8.2) L D 07/16/16 17:00 Albumin 2.4 g/dl (3.4-5.0) L D 07/16/16 17:00 ABG Results ABG pH 7.36 (7.35-7.45) 07/16/16 21:32 ABG pCO2 at Pt Temp 27.5 mmHg (35-45) L 07/16/16 21:32 ABG pO2 at Pt Temp 220.0 mmHg (80-100) H* 07/16/16 21:32 ABG HCO3 15.0 meq/L (22-26) L 07/16/16 21:32 ABG O2 Sat (Measured) 99.2 % (90-98.9) H 07/16/16 21:32 ABG O2 Content 10.9 % vol (15-22) L 07/16/16 21:32 ABG Base Excess -9.2 meq/l (-2-2) L 07/16/16 21:32 Problem List - Problems (1) Hypertension Code(s): I10 - ESSENTIAL (PRIMARY) HYPERTENSION Qualifiers: Hypertension type: essential hypertension Qualified Code(s): I10 - Essential (primary) hypertension (2) Perforated abdominal viscus Code(s): [id number] - Assessment/Plan The patient is a 65-year-old woman with a significant past medical history of hypertension, hypercholesterolemia, diabetes mellitus and GI disorders who is now POD#0 s/p emergent repair of perforated duodenal perforation. P: -vent bundle -Midazolam and fentanyl for analgosedation. goal RASS -3--4 -Daily sedation holiday -LR bolus x2L given low cvp -LR maintenance fluid -norepi for goal map >65 -NGT to low intermittent wall suction -pepcid for prophylaxis -monitor abd drainage I/O -williamson to bsd and monitor urine output -Continue antibiotics; f/u cultures and narrow -FSBS q6hrs w/ goal 140-180, low threshold to start insulin gtt -Replete lytes for goal K+>4.0 and Mg+ >2.0 -SCD's -heparin sq when cleared by surgery
[2016-07-17] MEDS ORDERED: METRONIDAZOLE 500 MG PREMIXED 100 ML IVPB SCH (02:00)
[2016-07-17] MEDS: ACETAMINOPHEN 1000 MG/100 ML VIAL (NON FORMULARY) IVPB PRN ×3 (03:30→21:50)
[2016-07-17] MEDS ORDERED: NOREPINEPHRINE BITARTRATE 4 MG/4 ML ML IV ONE ×3 (04:59→22:29)
[2016-07-17] MEDS ORDERED: LACTATED RINGERS SOLUTION 1,000 ML IV STA (05:08)
[2016-07-17 06:28] LABS: BASOPHIL 0.1 % (0-2.0); EOSINOPHIL 8.9 % (0-4.5); MCH 29.2 pg (25.7-33.7); MCHC 32.9 g/dl (32.0-36.0); NEUTROPHILS 67.8 % (42.8-82.8); PLATELET COUNT 240 K/MM3 (134-434); RDW 13.4 % (11.6-15.6)
[2016-07-17 06:48] LABS: ALBUMIN 1.7 g/dl (3.4-5.0); CALCIUM 7.2 mg/dL (8.5-10.1); MAGNESIUM 1.2 mg/dL (1.8-2.4)
[2016-07-17 06:52] LABS: BILIRUBIN,TOTAL 0.4 mg/dL (0.2-1.0); COCKROFT - GAULT 55.4795; CREATININE 1.1 mg/dL (0.55-1.02); PHOSPHOROUS 1.8 mg/dL (2.5-4.9); TOT PROT 3.5 g/dl (6.4-8.2)
--- NOTE | 2016-07-17 07:14 | PN ---
Physical Exam: SUBJECTIVE: Patient seen and examined. Patient intubated, sedated. OBJECTIVE: Vital Signs Period Temp Pulse Resp BP Sys/Major Pulse Ox Last 24 Hr 98.4 F-102.2 F 117-139 14-28 50-135/33-74 100-100 GENERAL: The patient is sedated and intubated. HEAD: Normal with no signs of trauma. EYES: conjunctiva clear. pupild pinpoint. ENT: nares patent, oropharynx with endotracheal tube. NGT, no JVD. NECK: Trachea midline LUNGS: Breath sounds equal, course breath sounds b/l HEART: Regular rate and rhythm, S1, S2 without murmur, rub or gallop. ABDOMEN: no bowel sounds, midline tania in place without incisional discharge or surrounding erythema. tube in place in right mid quadrant draining to suction without leakage or skin breakdown. EXTREMITIES: 2+ b/l radial pulses, A-line in left brachial, 2+ femoral 1+ popliteal pulses, doppler DP pulses. cool extremities, no skin mottling. Laboratory Results - last 24 hr 07/16/16 07/16/16 07/16/16 17:00 17:00 17:00 WBC 0.7 L* D RBC 3.64 Hgb 10.6 L D Hct 33.0 MCV 90.6 MCHC 32.3 RDW 13.6 Plt Count 323 MPV 7.7 Neutrophils % 56.0 Lymphocytes % 20.0 Monocytes % 8.0 Eosinophils % 2.0 Band Neutrophils 12.0 H D Metamyelocytes 2 D Platelet Estimate Adequate Platelet Comment Rare giant plts INR 1.36 H PTT (Actin FS) 31.4 Puncture Site ABG pH ABG pCO2 at Pt Temp ABG pO2 at Pt Temp ABG HCO3 ABG O2 Sat (Measured) ABG O2 Content ABG Base Excess Heber Test O2 Delivery Device Oxygen Flow Rate Vent Mode Vent Rate Mechanical Rate PEEP Pressure Support Vent Sodium 137 Potassium 3.8 Chloride 103 Carbon Dioxide 20 L Anion Gap 14 BUN 32 H D Creatinine 1.2 H D Creat Clearance w eGFR 44.81 POC Glucometer Random Glucose 174 H D Lactic Acid Calcium 7.8 L Total Bilirubin 0.3 D AST 79 H D ALT 58 D Alkaline Phosphatase 60 D Total Protein 5.0 L D Albumin 2.4 L D Blood Type Antibody Screen 07/16/16 07/16/16 07/16/16 17:00 17:00 17:45 WBC RBC Hgb Hct MCV MCHC RDW Plt Count MPV Neutrophils % Lymphocytes % Monocytes % Eosinophils % Band Neutrophils Metamyelocytes Platelet Estimate Platelet Comment INR PTT (Actin FS) Puncture Site ABG pH ABG pCO2 at Pt Temp ABG pO2 at Pt Temp ABG HCO3 ABG O2 Sat (Measured) ABG O2 Content ABG Base Excess Heber Test O2 Delivery Device Oxygen Flow Rate Vent Mode Vent Rate Mechanical Rate PEEP Pressure Support Vent Sodium Potassium Chloride Carbon Dioxide Anion Gap BUN Creatinine Creat Clearance w eGFR POC Glucometer Random Glucose Lactic Acid 5.334 H* Calcium Total Bilirubin AST ALT Alkaline Phosphatase Total Protein Albumin Blood Type O POSITIVE O POSITIVE Antibody Screen Negative Negative 07/16/16 07/16/16 07/16/16 20:40 20:40 21:00 WBC 0.7 L* RBC 2.93 L Hgb 8.6 L D Hct 26.3 L D MCV 89.9 MCHC 32.8 RDW 13.6 Plt Count 281 MPV 7.3 L Neutrophils % Lymphocytes % Monocytes % Eosinophils % Band Neutrophils Metamyelocytes Platelet Estimate Platelet Comment INR PTT (Actin FS) Puncture Site ABG pH ABG pCO2 at Pt Temp ABG pO2 at Pt Temp ABG HCO3 ABG O2 Sat (Measured) ABG O2 Content ABG Base Excess Heber Test O2 Delivery Device Oxygen Flow Rate Vent Mode Vent Rate Mechanical Rate PEEP Pressure Support Vent Sodium 141 Potassium 3.4 L Chloride 110 H Carbon Dioxide 18 L Anion Gap 13 BUN 28 H Creatinine 1.1 H Creat Clearance w eGFR POC Glucometer Random Glucose 129 H D Lactic Acid 4.770 H* Calcium 7.0 L Total Bilirubin AST ALT Alkaline Phosphatase Total Protein Albumin Blood Type Antibody Screen 07/16/16 07/17/16 21:32 05:28 WBC RBC Hgb Hct MCV MCHC RDW Plt Count MPV Neutrophils % Lymphocytes % Monocytes % Eosinophils % Band Neutrophils Metamyelocytes Platelet Estimate Platelet Comment INR PTT (Actin FS) Puncture Site Arterial line ABG pH 7.36 ABG pCO2 at Pt Temp 27.5 L ABG pO2 at Pt Temp 220.0 H* ABG HCO3 15.0 L ABG O2 Sat (Measured) 99.2 H ABG O2 Content 10.9 L ABG Base Excess -9.2 L Heber Test Not applicable O2 Delivery Device Ot Oxygen Flow Rate 100% Vent Mode Ac Vent Rate 12 Mechanical Rate Esprit PEEP 5.0 Pressure Support Vent 450 Sodium Potassium Chloride Carbon Dioxide Anion Gap BUN Creatinine Creat Clearance w eGFR POC Glucometer [phone] Random Glucose Lactic Acid Calcium Total Bilirubin AST ALT Alkaline Phosphatase Total Protein Albumin Blood Type Antibody Screen Active Medications Acetaminophen (Ofirmev Injection -) 1,000 mg IVPB Q6H PRN PRN Reason: FEVER OR PAIN Stop: 07/17/16 21:04 Last Admin: 07/17/16 11:00 Dose: 1,000 mg Chlorhexidine Gluconate (Hibiclens For Decolonization -) 1 applic TP HS AVERY Last Admin: 07/16/16 23:03 Dose: 1 applic Fentanyl (Sublimaze Injection -) 50 mcg IVPUSH [id number] PRN PRN Reason: PAIN Stop: 07/19/16 23:31 Dextrose/Lactated Ringer's (D5-Lr -) 1,000 mls @ 125 mls/hr IV ASDIR AVERY Last Admin: 07/17/16 08:00 Dose: 125 mls/hr Piperacillin Sod/Tazobactam Sod (Zosyn 4.5gm Ivpb (Pre-Docked)) 100 mls @ 200 mls/hr IVPB Q8H-IV AVERY PRN Reason: Protocol Last Admin: 07/17/16 09:26 Dose: 200 mls/hr Fluconazole (Diflucan 200 Mg/Ns Premixed Ivpb -) 100 mls @ 100 mls/hr IVPB DAILY AVERY Last Admin: 07/17/16 09:15 Dose: 100 mls/hr Fentanyl 500 mcg/ Dextrose 100 mls @ 10 mls/hr IJ TITR AVERY PRN Reason: 50 MCG/HR Last Admin: 07/17/16 09:32 Dose: 10 mls/hr Midazolam HCl 100 mg/ Sodium (Chloride) 100 mls @ 5 mls/hr IVPB TITR AVERY; 5 MG/ HR PRN Reason: Protocol Last Titration: 07/17/16 00:48 Dose: 3 mg/hr Norepinephrine Bitartrate 8, (000 mcg/ Dextrose) 500 mls @ 18.75 mls/hr IV TITR AVERY; 5 MCG/MIN PRN Reason: Protocol Last Admin: 07/17/16 08:00 Dose: 56.25 mls/hr Lactated Ringer's (Lactated Ringers Solution) 1,000 mls @ 125 mls/hr IV ASDIR AVERY Last Admin: 07/17/16 00:46 Dose: 125 mls/hr Phenylephrine HCl 10,000 mcg/ (Dextrose) 500 mls @ 120 mls/hr IV TITR AVERY; 40 MCG/MIN PRN Reason: Protocol Last Admin: 07/16/16 23:45 Dose: 120 mls/hr Famotidine/Sodium Chloride (Pepcid 20 Mg Premixed Ivpb -) 50 mls @ 100 mls/hr IVPB BID AVERY Last Admin: 07/17/16 09:26 Dose: 100 mls/hr Sodium Phosphate 30 mm/ (Dextrose) 260 mls @ 65 mls/hr IVPB ONCE ONE Stop: 07/17/16 16:59 Last Admin: 07/17/16 13:54 Dose: 65 mls/hr Morphine Sulfate (Morphine Injection -) 1 mg IVPUSH Q3H PRN PRN Reason: PAIN Mupirocin (Bactroban Ointment (For Decolonization) -) 1 applic NS BID AVERY Stop: 07/21/16 21:59 Last Admin: 07/17/16 09:31 Dose: 1 applic ASSESSMENT/PLAN: 65 yr old woman with HTN, dementia, NIDDM II admitted to ICU with septic shock secondary to perforated duodenal ulcer and peritonitis. Cardivascular Hypotensive with low CVP requring pressors - norepi 18.75mls/hr, phenylephrine 10,000mcg @12ml/hr - d5-Lr @125mls/hr, bolus with NS - 1 unit prbc - attempt to wean pressors - A-line left axilla removed today, nonfuntional Pulmonary endotracheal tube placed 07/16 fio2 60%, ACV, sat 100% Gastrointestinal; s/p repair perforated duodenal ulcer - POD#0 - NGT in place, NPO - IV zosyn 4.5gm q8hr + diflucan 200mg Ivpb q24hr - day 2 - broad spectrum coverage for gram +/-, enterococcus, and fungal given diabetic pt - pepcid ivpb 20g daily - pain control post-op Renal - replete Mag and phosphorus - ZAHIRA improving - IVF - repeat BMP, Mag, phos - Bacon placed in ED pre-op 07/16; 24hr output: 2000, net positive Infectious Disease - consulted - zosyn + diflucan - monitor for fevers, tylenol IVPB 1gm q6hr - pending blood cultures from ED - lactic acidosis from sepsis; aggressive IVF, trend Endocrine NIDDM II - currently NPO - D5+ LR - BGM q6hrs w/ goal 140-180, low threshold to start insulin gtt, NISS Hematologic - monitor H/H post-op - leukopenia likely due to sepsis Neurologic - currently sedated; midazolam 5ml/hr Dementia wrist restraints Diet: NPO DVT- SCD's Visit type - Emergency Visit Emergency Visit: No - New Patient This patient is new to me today: No - Critical Care Critical Care patient: Yes Total Critical Care Time (in minutes): 45 Critical Care Statement: The care of this patient involved high complexity decision making to prevent further life threatening deterioration of the patient 's condition and/or to evalute & treat vital organ system(s) failure or risk of failure.
[2016-07-17] MEDS: NOREPINEPHRINE BITARTRATE 8,000 MCG in DEXTROSE 5%-WATER - 492 ML IV SCH ×2 (08:00→17:05)
[2016-07-17] MEDS: DEXTROSE 5%-LACTATED RINGERS 1,000 ML IV SCH ×3 (08:00→22:13)
--- NOTE | 2016-07-17 08:35 | PN ---
Progress Note, Physician - Current Medication List Current Medications: Active Medications Acetaminophen (Ofirmev Injection -) 1,000 mg IVPB Q6H PRN PRN Reason: FEVER OR PAIN Stop: 07/17/16 21:04 Last Admin: 07/17/16 03:30 Dose: 1,000 mg Chlorhexidine Gluconate (Hibiclens For Decolonization -) 1 applic TP HS AVERY Last Admin: 07/16/16 23:03 Dose: 1 applic Fentanyl (Sublimaze Injection -) 50 mcg IVPUSH [id number] PRN PRN Reason: PAIN Stop: 07/19/16 23:31 Dextrose/Lactated Ringer's (D5-Lr -) 1,000 mls @ 125 mls/hr IV ASDIR AVERY Last Admin: 07/17/16 08:00 Dose: 125 mls/hr Piperacillin Sod/Tazobactam Sod (Zosyn 4.5gm Ivpb (Pre-Docked)) 100 mls @ 200 mls/hr IVPB Q8H-IV AVERY PRN Reason: Protocol Fluconazole (Diflucan 200 Mg/Ns Premixed Ivpb -) 100 mls @ 100 mls/hr IVPB DAILY AVERY Fentanyl 500 mcg/ Dextrose 100 mls @ 10 mls/hr IJ TITR AVERY PRN Reason: 50 MCG/HR Last Titration: 07/17/16 05:42 Dose: 50 mcg/hr Midazolam HCl 100 mg/ Sodium (Chloride) 100 mls @ 5 mls/hr IVPB TITR AVERY; 5 MG/ HR PRN Reason: Protocol Last Titration: 07/17/16 00:48 Dose: 3 mg/hr Norepinephrine Bitartrate 8, (000 mcg/ Dextrose) 500 mls @ 18.75 mls/hr IV TITR AVERY; 5 MCG/MIN PRN Reason: Protocol Last Admin: 07/17/16 08:00 Dose: 56.25 mls/hr Lactated Ringer's (Lactated Ringers Solution) 1,000 mls @ 125 mls/hr IV ASDIR AVERY Last Admin: 07/17/16 00:46 Dose: 125 mls/hr Phenylephrine HCl 10,000 mcg/ (Dextrose) 500 mls @ 120 mls/hr IV TITR AVERY; 40 MCG/MIN PRN Reason: Protocol Last Admin: 07/16/16 23:45 Dose: 120 mls/hr Famotidine/Sodium Chloride (Pepcid 20 Mg Premixed Ivpb -) 50 mls @ 100 mls/hr IVPB BID [facility] Morphine Sulfate (Morphine Injection -) 1 mg IVPUSH Q3H PRN PRN Reason: PAIN Mupirocin (Bactroban Ointment (For Decolonization) -) 1 applic NS BID AVEYR Stop: 07/21/16 21:59 Last Admin: 07/16/16 23:02 Dose: 1 applic - Objective Vital Signs: Vital Signs Temperature 101.0 F H 07/17/16 08:06 Pulse Rate 129 H 07/17/16 08:06 Respiratory Rate 24 07/17/16 08:06 Blood Pressure 92/60 07/17/16 08:06 O2 Sat by Pulse Oximetry (%) 100 07/17/16 00:06 Labs: CBC, BMP 07/17/16 05:30 07/17/16 05:30 INR, PTT INR 1.36 (0.82-1.09) H 07/16/16 17:00 Problem List - Problems (1) Abdominal pain Code(s): R10.9 - UNSPECIFIED ABDOMINAL PAIN Qualifiers: Abdominal location: periumbilical Qualified Code(s): R10.33 - Periumbilical pain (2) Perforated abdominal viscus Code(s): XRM7210 - (3) Perforated viscus Code(s): R19.8 - OTH SYMPTOMS AND SIGNS INVOLVING THE DGSTV SYS AND ABDOMEN (4) Hypertension Code(s): I10 - ESSENTIAL (PRIMARY) HYPERTENSION Qualifiers: Hypertension type: essential hypertension Qualified Code(s): I10 - Essential (primary) hypertension Assessment/Plan Surgery: Patient is intubated , on ventilator. Responds to painful stimulii, moving her extremities. Remains intubated, hypotensive. on Levophed drip, 5 microgram /m Oliguric CVP is 1, oliguric. Hematocrit is 25. Lactic acid increased to 8. WBC is 1000. Patient is not responding to fluids. Phosphorous and calcium is low. Continue volume resuscitation, consider packed RBC transfusion. Antibiotics. Problem: Severe sepsis, lactic acidosis, Hypotension, low CVP, Hypophosphotemia, Oliguria Hypovolenia , not responding to fluids. Consider transfusion of packed RBC. Continue resuscitation. Condition : Critical.
[2016-07-17] MEDS ORDERED: MAGNESIUM SULF 50% (8.12 MEQ/2 ML-1 GM VIAL) IVPB ONE (09:00)
[2016-07-17] MEDS: FLUCONAZOLE 200 MG/NS 100 ML IVPB SCH (09:15)
[2016-07-17] MEDS: PIPERACILLIN/TAZOB 4.5 GM 100 ML IVPB SCH ×2 (09:26→17:04)
[2016-07-17] MEDS: FAMOTIDINE 20 MG/50 ML IVPB 50 ML IVPB SCH ×2 (09:26→22:14)
[2016-07-17] MEDS: MUPIROCIN 2% TOPICAL OINTMENT FOR DECOLONIZATION NS SCH ×2 (09:31→22:14)
[2016-07-17] MEDS: FENTANYL INJECTION 500 MCG in DEXTROSE 5%-WATER - 90 ML IJ SCH ×2 (09:32→22:14)
--- NOTE | 2016-07-17 09:45 | HP ---
DATE OF ADMISSION: DATE OF DICTATION: 07/17/2016 HISTORY OF PRESENT ILLNESS: This is a 65-year-old patient with hypertension, diabetes, being followed in my office, who was brought to the ER by family with complaints of abdominal pain for the last 3 days. When, as part of workup for the abdominal pain, her CT scan of the abdomen showed , surgical consult was obtained, Dr. Louise. Patient was taken to the emergency room immediately from the ER. Case discussed with Dr. Louise, diagnosed to have duodenal ulcer, perforated. Patient had the ulcer patched, and now the patient is in the ICU on respirator, not responding to my verbal orders. PHYSICAL EXAMINATION: General: Patient is on respirator, not responding. Vital signs: BP 92/60, temperature 101, pulse 129. HEENT: Unremarkable. Neck: Supple. Lungs: Few crepitations heard. Abdomen: Abdominal wall intact. Extremities: Legs no edema. Urine output is okay. LABORATORY REPORTS: WBC is 1, hemoglobin 8.5, platelets 240. Chemistry: Sodium 140, potassium 4.1, chloride 108, BUN 22, creatinine 1.1, lactic acid is high at 6.6. IMPRESSION: Perforated viscus status post exploratory laparotomy, patient on respirator, and sepsis. PLAN: Continue IV antibiotics, ID consult Dr. Roach, will continue ICU care. Case discussed with Dr. Louise. It was informed to the family yesterday. DAVID ECHEVARRIA M.D. [id number]
[2016-07-17 10:33] LABS: ALLENS TEST POSITIVE; ART PUNCT SITE RIGHT RADIAL; ARTERIAL BLD GAS O2 SATURATION 97.2 % (90-98.9); ARTERIAL BLOOD GAS BASE EXCESS -7.8 meq/l (-2-2); ARTERIAL BLOOD GAS HCO3 15.6 meq/L (22-26); ARTERIAL BLOOD GAS PO2 89.4 mmHg (80-100); LPM/O2% 60%; MECH. VENT. YES; PT. ON O2? YES; TYPE OF O2 VENT; VENT RATE 12; VT/PRESS 450
--- NOTE | 2016-07-17 11:30 | OP ---
DATE OF OPERATION: 07/16/2016 PREOPERATIVE DIAGNOSIS: 1. Perforated viscus. 2. Diffuse peritonitis. 3. Hypovolemia and shock. 4. Dementia. 5. Hypertension. 6. Sepsis. POSTOPERATIVE DIAGNOSIS: 1. Perforated duodenal ulcer of the first portion of the duodenum on anterior wall. . 2. Generalized peritonitis. 3. Adhesions of the gallbladder and visceral peritoneum and liver to the duodenum and ulcer. OPERATIVE PROCEDURE: 1. Exploratory laparotomy. 2. Plication of perforated duodenal ulcer with viable omental patch and overlay. 3. Lysis of adhesions of gallbladder, liver. 4. Peritoneal washout and irrigation of all quadrants and debridement of exudates and slough on the peritoneal surface. SURGEON: West Torrez M.D. MARKET INVESTIGATOR: Cara Omalley ANESTHESIA: General anesthesia. OPERATIVE DESCRIPTION: This 65-year-old woman came to the emergency room this morning complaining of abdominal pain for 3 days. She denied nausea and vomiting. Patient was seen in the emergency room, confirmed and worked up. She was found to have perforated viscus with free air in the peritoneal cavity. She also had leukopenia. She also was septic with lactic acidosis. She was also dehydrated and hypovolemic. She was placed on an NG tube placed in the emergency room, and fluids were given. Patient was diagnosed to have perforated viscus with sepsis and hypovolemia. Patient was given fluids. Consent was obtained from the patients as the patient was demented for exploratory laparotomy. Risks, benefits, and complications had been discussed with the patient and her . Patient was given antibiotics in the emergency room. Patient was brought in the operating room and general anesthesia was administered. An NG tube was placed in the stomach draining bilious gastric fluid. Patient also had a Bacon catheter with 800 mL of urine. The abdomen was distended, but tense. Patient was given general anesthesia. Fluids were given in a rapid manner. The abdomen was painted and draped. Time-out was called. The abdomen was opened through a vertical midline incision extending just below the umbilicus. Upon entering the abdominal cavity, there was plenty of copious amount of brown smelling peritoneal fluid, which was aspirated. There were multiple peritoneal exudates on the surface of the peritoneum out of the intestine. There was fluid on either side of the upper quadrant, in the pelvis, as well as centrally in the abdominal cavity. This was aspirated. After carefully examining under the liver, the first portion of the duodenum, and the stomach, it was densely adherent to the infundibulum and the proximal aspect of the gallbladder. This was lysed with careful blunt dissection. The liver was also firmly adherent to the stomach and duodenum. This was also carefully released and lysed. When this was done, there was a large ulcer on the first portion of the duodenum on its anterior wall measuring about 2 cm in diameter. This was carefully approximated with cannulas, 3-0 Vicryl sutures in a running [id number] fashion. Prior to this, three 0 silk sutures were placed across the perforation, one just above the ulcer going around the longitudinal direction of the duodenum, next was at the central one through the center of the perforation from one wall to the other through and through, and third just at the lower edge of the ulcer, again going through both the whitaker of the perforation. After the duodenum was closed with continuous 3-0 chromic catgut sutures, a large piece of omentum which was attached to the colon was brought up, placed over the duodenal repair, and 0 silk sutures were tied as an omental patch and omental overlay over the duodenum and the repair. Once this was done, the stomach was distended with air through the NG tube, and no leakage of air was noted from the repair. The abdominal cavity was then thoroughly irrigated with normal saline, irrigating all quadrants as well as the central portion of the peritoneal cavity with about 2 L of normal saline in each. The small bowel was run through the duodenojejunal flexure all the way to the terminal ileum. All exudates on the bowel surface were carefully excised and sent for culture and antibiotic sensitivity examination. The fluid was irrigated also on either side of the liver, in the right upper quadrant, as well as to the left surface to the left of the falciform ligament as well as in the intrahepatic space. All fluid was evacuated. A large Annmarie Sump Drain was then placed under the liver over the stomach and duodenum and brought out through a stab wound in the right flank. The Annmarie Sump was sutured with 0 silk sutures to the abdominal wall. Hemostasis was satisfactory at the end of the procedure. The abdomen was then closed with No. 1 looped PDS sutures in a running fashion. Skin was loosely approximated with tania. Sterile dressing was applied. Estimated blood loss was less than 50 mL Sponge count and instrument count were correct. Patient remains intubated and will be sent to the ICU in satisfactory, but critical condition. Nickolas TAMAYO/[id number] cc: Larry Miranda M.D.
[2016-07-17] MEDS ORDERED: SODIUM CHLORIDE 1,000 ML IV STA ×3 (11:44→16:50)
--- NOTE | 2016-07-17 12:11 | PN ---
Teaching Attending Note Name of Resident: Trevin Terrazas ATTENDING PHYSICIAN STATEMENT I saw and evaluated the patient. I reviewed the resident's note and discussed the case with the resident. I agree with the resident's findings and plan as documented. SUBJECTIVE: Patient seen and examined in the ICU. Remains intubated and sedated. AC Mode of vent, 60% FiO2. NE 12 mcq for hemodynamic support. Noted elevated Lactic acid level. Intake & Output 07/14/16 07/15/16 07/16/16 07/17/16 23:59 23:59 23:59 23:59 Intake Total 9450 4154 Output Total 1925 1450 Balance 7525 2704 Weight 152 lb 4.8 oz 156 lb 2 oz Last Vital Signs Temp Pulse Resp BP Pulse Ox 101.2 F H 130 H 24 81/54 100 07/17/16 10:00 07/17/16 10:05 07/17/16 10:05 07/17/16 10:00 07/17/16 10:05 Active Medications Acetaminophen (Ofirmev Injection -) 1,000 mg IVPB Q6H PRN PRN Reason: FEVER OR PAIN Stop: 07/17/16 21:04 Last Admin: 07/17/16 03:30 Dose: 1,000 mg Chlorhexidine Gluconate (Hibiclens For Decolonization -) 1 applic TP HS [facility] Last Admin: 07/16/16 23:03 Dose: 1 applic Fentanyl (Sublimaze Injection -) 50 mcg IVPUSH [id number] PRN PRN Reason: PAIN Stop: 07/19/16 23:31 Dextrose/Lactated Ringer's (D5-Lr -) 1,000 mls @ 125 mls/hr IV ASDIR AVERY Last Admin: 07/17/16 08:00 Dose: 125 mls/hr Piperacillin Sod/Tazobactam Sod (Zosyn 4.5gm Ivpb (Pre-Docked)) 100 mls @ 200 mls/hr IVPB Q8H-IV AVERY PRN Reason: Protocol Last Admin: 07/17/16 09:26 Dose: 200 mls/hr Fluconazole (Diflucan 200 Mg/Ns Premixed Ivpb -) 100 mls @ 100 mls/hr IVPB DAILY AVERY Last Admin: 07/17/16 09:15 Dose: 100 mls/hr Fentanyl 500 mcg/ Dextrose 100 mls @ 10 mls/hr IJ TITR AVERY PRN Reason: 50 MCG/HR Last Admin: 07/17/16 09:32 Dose: 10 mls/hr Midazolam HCl 100 mg/ Sodium (Chloride) 100 mls @ 5 mls/hr IVPB TITR AVERY; 5 MG/ HR PRN Reason: Protocol Last Titration: 07/17/16 00:48 Dose: 3 mg/hr Norepinephrine Bitartrate 8, (000 mcg/ Dextrose) 500 mls @ 18.75 mls/hr IV TITR AVERY; 5 MCG/MIN PRN Reason: Protocol Last Admin: 07/17/16 08:00 Dose: 56.25 mls/hr Lactated Ringer's (Lactated Ringers Solution) 1,000 mls @ 125 mls/hr IV ASDIR AVERY Last Admin: 07/17/16 00:46 Dose: 125 mls/hr Phenylephrine HCl 10,000 mcg/ (Dextrose) 500 mls @ 120 mls/hr IV TITR AVERY; 40 MCG/MIN PRN Reason: Protocol Last Admin: 07/16/16 23:45 Dose: 120 mls/hr Famotidine/Sodium Chloride (Pepcid 20 Mg Premixed Ivpb -) 50 mls @ 100 mls/hr IVPB BID AVERY Last Admin: 07/17/16 09:26 Dose: 100 mls/hr Sodium Phosphate 30 mm/ (Dextrose) 260 mls @ 65 mls/hr IVPB ONCE ONE Stop: 07/17/16 16:59 Sodium Chloride (Normal Saline -) 1,000 mls @ 1,000 mls/hr IV ASDIR STA Stop: 07/17/16 12:43 Morphine Sulfate (Morphine Injection -) 1 mg IVPUSH Q3H PRN PRN Reason: PAIN Mupirocin (Bactroban Ointment (For Decolonization) -) 1 applic NS BID AVERY Stop: 07/21/16 21:59 Last Admin: 07/17/16 09:31 Dose: 1 applic Constitutional: Yes: Intubated and sedated Eyes: Yes: PERRL HENT: Yes: Atraumatic, Normocephalic Neck: Yes: Supple, Trachea Midline Cardiovascular: Yes: Tachycardia, S1, S2 Respiratory: Yes: Mechanically Ventilated, Rhonchi Gastrointestinal: Yes: Soft, Hypoactive Bowel Sounds ...Rectal Exam: Yes: Deferred Renal/: Yes: Bacon Present Extremities: Yes: WNL Edema: No Peripheral Pulses WNL: Yes (+) PP Integumentary: Yes: WNL Wound/Incision: Yes: Clean/Dry, Dressing Dry and Intact Neurological: Yes: Other (Sedated) Labs: Laboratory Results - last 24 hr 07/16/16 07/16/16 07/16/16 10:19 10:19 10:42 WBC RBC Hgb Hct MCV MCHC RDW Plt Count MPV Neutrophils % 56.0 D Lymphocytes % 21.0 D Monocytes % 8.0 Eosinophils % Basophils % 2.0 Band Neutrophils 5.0 Metamyelocytes 6 H Myelocytes 2 Differential Comment Manual diff done Platelet Estimate Adequate Platelet Comment INR PTT (Actin FS) Puncture Site ABG pH ABG pCO2 at Pt Temp ABG pO2 at Pt Temp ABG HCO3 ABG O2 Sat (Measured) ABG O2 Content ABG Base Excess Heber Test O2 Delivery Device Oxygen Flow Rate Vent Mode Vent Rate Mechanical Rate PEEP Pressure Support Vent Sodium Potassium Chloride Carbon Dioxide Anion Gap BUN Creatinine Creat Clearance w eGFR POC Glucometer Random Glucose Hemoglobin A1c % Lactic Acid Calcium Phosphorus Magnesium Total Bilirubin AST ALT Alkaline Phosphatase CK-MB (CK-2) 4.85 H Total Protein Albumin Urine Color Yellow Urine Appearance Slcloudy Urine pH 5.0 Ur Specific [place] 1.010 Urine Protein 1+ H Urine Glucose (UA) 1+ H Urine Ketones Negative Urine Blood 2+ H Urine Nitrite Negative Urine Bilirubin Negative Urine Urobilinogen Negative Ur Leukocyte Esterase Negative Urine RBC 2 Urine WBC 3 Ur Epithelial Cells Rare Hyaline Casts 3 Granular Casts 27 Urine Mucus Rare Blood Type Antibody Screen 07/16/16 07/16/16 07/16/16 17:00 17:00 17:00 WBC 0.7 L* D RBC 3.64 Hgb 10.6 L D Hct 33.0 MCV 90.6 MCHC 32.3 RDW 13.6 Plt Count 323 MPV 7.7 Neutrophils % 56.0 Lymphocytes % 20.0 Monocytes % 8.0 Eosinophils % 2.0 Basophils % Band Neutrophils 12.0 H D Metamyelocytes 2 D Myelocytes Differential Comment Platelet Estimate Adequate Platelet Comment Rare giant plts INR 1.36 H PTT (Actin FS) 31.4 Puncture Site ABG pH ABG pCO2 at Pt Temp ABG pO2 at Pt Temp ABG HCO3 ABG O2 Sat (Measured) ABG O2 Content ABG Base Excess Heber Test O2 Delivery Device Oxygen Flow Rate Vent Mode Vent Rate Mechanical Rate PEEP Pressure Support Vent Sodium 137 Potassium 3.8 Chloride 103 Carbon Dioxide 20 L Anion Gap 14 BUN 32 H D Creatinine 1.2 H D Creat Clearance w eGFR 44.81 POC Glucometer Random Glucose 174 H D Hemoglobin A1c % Lactic Acid Calcium 7.8 L Phosphorus Magnesium Total Bilirubin 0.3 D AST 79 H D ALT 58 D Alkaline Phosphatase 60 D CK-MB (CK-2) Total Protein 5.0 L D Albumin 2.4 L D Urine Color Urine Appearance Urine pH Ur Specific [place] Urine Protein Urine Glucose (UA) Urine Ketones Urine Blood Urine Nitrite Urine Bilirubin Urine Urobilinogen Ur Leukocyte Esterase Urine RBC Urine WBC Ur Epithelial Cells Hyaline Casts Granular Casts Urine Mucus Blood Type Antibody Screen 07/16/16 07/16/16 07/16/16 17:00 17:00 17:45 WBC RBC Hgb Hct MCV MCHC RDW Plt Count MPV Neutrophils % Lymphocytes % Monocytes % Eosinophils % Basophils % Band Neutrophils Metamyelocytes Myelocytes Differential Comment Platelet Estimate Platelet Comment INR PTT (Actin FS) Puncture Site ABG pH ABG pCO2 at Pt Temp ABG pO2 at Pt Temp ABG HCO3 ABG O2 Sat (Measured) ABG O2 Content ABG Base Excess Heber Test O2 Delivery Device Oxygen Flow Rate Vent Mode Vent Rate Mechanical Rate PEEP Pressure Support Vent Sodium Potassium Chloride Carbon Dioxide Anion Gap BUN Creatinine Creat Clearance w eGFR POC Glucometer Random Glucose Hemoglobin A1c % Lactic Acid 5.334 H* Calcium Phosphorus Magnesium Total Bilirubin AST ALT Alkaline Phosphatase CK-MB (CK-2) Total Protein Albumin Urine Color Urine Appearance Urine pH Ur Specific [place] Urine Protein Urine Glucose (UA) Urine Ketones Urine Blood Urine Nitrite Urine Bilirubin Urine Urobilinogen Ur Leukocyte Esterase Urine RBC Urine WBC Ur Epithelial Cells Hyaline Casts Granular Casts Urine Mucus Blood Type O POSITIVE O POSITIVE Antibody Screen Negative Negative 07/16/16 07/16/16 07/16/16 20:40 20:40 21:00 WBC 0.7 L* RBC 2.93 L Hgb 8.6 L D Hct 26.3 L D MCV 89.9 MCHC 32.8 RDW 13.6 Plt Count 281 MPV 7.3 L Neutrophils % Lymphocytes % Monocytes % Eosinophils % Basophils % Band Neutrophils Metamyelocytes Myelocytes Differential Comment Platelet Estimate Platelet Comment INR PTT (Actin FS) Puncture Site ABG pH ABG pCO2 at Pt Temp ABG pO2 at Pt Temp ABG HCO3 ABG O2 Sat (Measured) ABG O2 Content ABG Base Excess Heber Test O2 Delivery Device Oxygen Flow Rate Vent Mode Vent Rate Mechanical Rate PEEP Pressure Support Vent Sodium 141 Potassium 3.4 L Chloride 110 H Carbon Dioxide 18 L Anion Gap 13 BUN 28 H Creatinine 1.1 H Creat Clearance w eGFR POC Glucometer Random Glucose 129 H D Hemoglobin A1c % Lactic Acid 4.770 H* Calcium 7.0 L Phosphorus Magnesium Total Bilirubin AST ALT Alkaline Phosphatase CK-MB (CK-2) Total Protein Albumin Urine Color Urine Appearance Urine pH Ur Specific [place] Urine Protein Urine Glucose (UA) Urine Ketones Urine Blood Urine Nitrite Urine Bilirubin Urine Urobilinogen Ur Leukocyte Esterase Urine RBC Urine WBC Ur Epithelial Cells Hyaline Casts Granular Casts Urine Mucus Blood Type Antibody Screen 07/16/16 07/17/16 07/17/16 21:32 05:28 05:30 WBC 1.0 L* D RBC 2.91 L Hgb 8.5 L Hct 25.9 L MCV 89.0 MCHC 32.9 RDW 13.4 Plt Count 240 MPV 8.0 Neutrophils % 67.8 D Lymphocytes % 16.6 Monocytes % 6.6 Eosinophils % 8.9 H D Basophils % 0.1 Band Neutrophils Metamyelocytes Myelocytes Differential Comment Platelet Estimate Platelet Comment INR PTT (Actin FS) Puncture Site Arterial line ABG pH 7.36 ABG pCO2 at Pt Temp 27.5 L ABG pO2 at Pt Temp 220.0 H* ABG HCO3 15.0 L ABG O2 Sat (Measured) 99.2 H ABG O2 Content 10.9 L ABG Base Excess -9.2 L Heber Test Not applicable O2 Delivery Device Ot Oxygen Flow Rate 100% Vent Mode Ac Vent Rate 12 Mechanical Rate Esprit PEEP 5.0 Pressure Support Vent 450 Sodium Potassium Chloride Carbon Dioxide Anion Gap BUN Creatinine Creat Clearance w eGFR POC Glucometer 239.99187 Random Glucose Hemoglobin A1c % Lactic Acid Calcium Phosphorus Magnesium Total Bilirubin AST ALT Alkaline Phosphatase CK-MB (CK-2) Total Protein Albumin Urine Color Urine Appearance Urine pH Ur Specific [place] Urine Protein Urine Glucose (UA) Urine Ketones Urine Blood Urine Nitrite Urine Bilirubin Urine Urobilinogen Ur Leukocyte Esterase Urine RBC Urine WBC Ur Epithelial Cells Hyaline Casts Granular Casts Urine Mucus Blood Type Antibody Screen 0507/17/16 07/17/16 05:30 05:30 05:30 WBC RBC Hgb Hct MCV MCHC RDW Plt Count MPV Neutrophils % Lymphocytes % Monocytes % Eosinophils % Basophils % Band Neutrophils Metamyelocytes Myelocytes Differential Comment Platelet Estimate Platelet Comment INR PTT (Actin FS) Puncture Site ABG pH ABG pCO2 at Pt Temp ABG pO2 at Pt Temp ABG HCO3 ABG O2 Sat (Measured) ABG O2 Content ABG Base Excess Heber Test O2 Delivery Device Oxygen Flow Rate Vent Mode Vent Rate Mechanical Rate PEEP Pressure Support Vent Sodium 140 Potassium 4.1 D Chloride 108 H Carbon Dioxide 15 L Anion Gap 17 H BUN 22 H D Creatinine 1.1 H Creat Clearance w eGFR 49.54 POC Glucometer Random Glucose 194 H D Hemoglobin A1c % 6.6 H Lactic Acid 6.641 H* Calcium 7.2 L Phosphorus 1.8 L Magnesium 1.2 L D Total Bilirubin 0.4 D AST 65 H ALT 42 D Alkaline Phosphatase 37 L D CK-MB (CK-2) Total Protein 3.5 L D Albumin 1.7 L D Urine Color Urine Appearance Urine pH Ur Specific [place] Urine Protein Urine Glucose (UA) Urine Ketones Urine Blood Urine Nitrite Urine Bilirubin Urine Urobilinogen Ur Leukocyte Esterase Urine RBC Urine WBC Ur Epithelial Cells Hyaline Casts Granular Casts Urine Mucus Blood Type Antibody Screen 07/17/16 07/17/16 08:45 10:15 WBC RBC Hgb Hct MCV MCHC RDW Plt Count MPV Neutrophils % Lymphocytes % Monocytes % Eosinophils % Basophils % Band Neutrophils Metamyelocytes Myelocytes Differential Comment Platelet Estimate Platelet Comment INR PTT (Actin FS) Puncture Site Right radial ABG pH 7.40 ABG pCO2 at Pt Temp 25.9 L ABG pO2 at Pt Temp 89.4 D ABG HCO3 15.6 L ABG O2 Sat (Measured) 97.2 ABG O2 Content 12.6 L ABG Base Excess -7.8 L Heber Test Positive O2 Delivery Device Vent Oxygen Flow Rate 60% Vent Mode A/c Vent Rate 12 Mechanical Rate Yes PEEP 5.0 Pressure Support Vent 450 Sodium Potassium Chloride Carbon Dioxide Anion Gap BUN Creatinine Creat Clearance w eGFR POC Glucometer Random Glucose Hemoglobin A1c % Lactic Acid 6.590 H* Calcium Phosphorus Magnesium Total Bilirubin AST ALT Alkaline Phosphatase CK-MB (CK-2) Total Protein Albumin Urine Color Urine Appearance Urine pH Ur Specific [place] Urine Protein Urine Glucose (UA) Urine Ketones Urine Blood Urine Nitrite Urine Bilirubin Urine Urobilinogen Ur Leukocyte Esterase Urine RBC Urine WBC Ur Epithelial Cells Hyaline Casts Granular Casts Urine Mucus Blood Type Antibody Screen CXR: ETT in position / increased vascular markings with blunted CP angles Problem List - Problems (1) Hypertension Code(s): I10 - ESSENTIAL (PRIMARY) HYPERTENSION Qualifiers: Hypertension type: essential hypertension Qualified Code(s): I10 - Essential (primary) hypertension (2) Perforated abdominal viscus Code(s): IHI5045 - Assessment/Plan Septic Shock HTN Hypercholesterolemia Diabetes mellitus S/P Repair of a perforated duodenal perforation. P: ABX per ID Sedate Increase IVF / IVF boluses to increased CVP Wean pressors Pepcid Strict I&O Glycemic control Replete lytes VTE prophylaxis 1 unit pRBCs Follow CBC Hopeful extubation by tomorrow if stable Dr Dubon critical care time spent in reviewing chart, evaluating patient and formulating plan 38 min
[2016-07-17] MEDS ORDERED: SODIUM PHOSPHATE - 30 MM in DEXTROSE 5%-WATER - 250 ML IVPB ONE (13:00)
--- NOTE | 2016-07-17 13:51 | PN ---
Progress Note, Physician Chief Complaint: Pt. intubated and sedated in ICU. Still in septic shock on Levophed. Getting Midazolam and Fentanyl for sedation. - Current Medication List Current Medications: Active Medications Acetaminophen (Ofirmev Injection -) 1,000 mg IVPB Q6H PRN PRN Reason: FEVER OR PAIN Stop: 07/17/16 21:04 Last Admin: 07/17/16 03:30 Dose: 1,000 mg Chlorhexidine Gluconate (Hibiclens For Decolonization -) 1 applic TP HS AVERY Last Admin: 07/16/16 23:03 Dose: 1 applic Fentanyl (Sublimaze Injection -) 50 mcg IVPUSH [id number] PRN PRN Reason: PAIN Stop: 07/19/16 23:31 Dextrose/Lactated Ringer's (D5-Lr -) 1,000 mls @ 125 mls/hr IV ASDIR AVERY Last Admin: 07/17/16 08:00 Dose: 125 mls/hr Piperacillin Sod/Tazobactam Sod (Zosyn 4.5gm Ivpb (Pre-Docked)) 100 mls @ 200 mls/hr IVPB Q8H-IV AVERY PRN Reason: Protocol Last Admin: 07/17/16 09:26 Dose: 200 mls/hr Fluconazole (Diflucan 200 Mg/Ns Premixed Ivpb -) 100 mls @ 100 mls/hr IVPB DAILY AVERY Last Admin: 07/17/16 09:15 Dose: 100 mls/hr Fentanyl 500 mcg/ Dextrose 100 mls @ 10 mls/hr IJ TITR AVERY PRN Reason: 50 MCG/HR Last Admin: 07/17/16 09:32 Dose: 10 mls/hr Midazolam HCl 100 mg/ Sodium (Chloride) 100 mls @ 5 mls/hr IVPB TITR AVERY; 5 MG/ HR PRN Reason: Protocol Last Titration: 07/17/16 00:48 Dose: 3 mg/hr Norepinephrine Bitartrate 8, (000 mcg/ Dextrose) 500 mls @ 18.75 mls/hr IV TITR AVERY; 5 MCG/MIN PRN Reason: Protocol Last Admin: 07/17/16 08:00 Dose: 56.25 mls/hr Lactated Ringer's (Lactated Ringers Solution) 1,000 mls @ 125 mls/hr IV ASDIR AVERY Last Admin: 07/17/16 00:46 Dose: 125 mls/hr Phenylephrine HCl 10,000 mcg/ (Dextrose) 500 mls @ 120 mls/hr IV TITR AVERY; 40 MCG/MIN PRN Reason: Protocol Last Admin: 07/16/16 23:45 Dose: 120 mls/hr Famotidine/Sodium Chloride (Pepcid 20 Mg Premixed Ivpb -) 50 mls @ 100 mls/hr IVPB BID AVERY Last Admin: 07/17/16 09:26 Dose: 100 mls/hr Sodium Phosphate 30 mm/ (Dextrose) 260 mls @ 65 mls/hr IVPB ONCE ONE Stop: 07/17/16 16:59 Morphine Sulfate (Morphine Injection -) 1 mg IVPUSH Q3H PRN PRN Reason: PAIN Mupirocin (Bactroban Ointment (For Decolonization) -) 1 applic NS BID AVERY Stop: 07/21/16 21:59 Last Admin: 07/17/16 09:31 Dose: 1 applic - Objective Vital Signs: Vital Signs Temperature 100.4 F H 07/17/16 12:00 Pulse Rate 128 H 07/17/16 12:00 Respiratory Rate 23 07/17/16 12:27 Blood Pressure 89/55 07/17/16 12:00 O2 Sat by Pulse Oximetry (%) 100 07/17/16 10:05 Constitutional: Yes: Well Nourished, No Distress, Calm Cardiovascular: Yes: Tachycardia Respiratory: Yes: Intubated Neurological: Yes: Other (Sedated) Labs: CBC, BMP 07/17/16 05:30 07/17/16 05:30 INR, PTT INR 1.36 (0.82-1.09) H 07/16/16 17:00 Assessment/Plan POD#1 s/p Exploratory laparotomy with jordan patch under GA. Septic shock on Levophed. D/C from anesthesia care. Notify if help needed with any part of patient management we can add assistance.
--- NOTE | 2016-07-17 16:17 | SURG ---
Surgery Reinforcing Steel Erector Note Reinforcing Steel Erector: Fidelia Ibarra PA-C Date of Service: 07/17/16 Diagnosis: Perforated abdominal viscus,. Sepsis,. Peritonitis,. hypertension , Lactic acidosis Procedure: Exploratory laparotomy,. Repair of perforated duodenal ulcer, enterorhaphy,. Plication and placement of omental patch,. Lysis of peritoneal adhesions,. Peritoneal wash out, and debridement of peritoneal exudate. I was present for the entirety of the operative procedure. For further detail, please refer to operative report. Visit type - Case Type Case Type: ED Admission - Emergency Emergency Visit: Yes ED Registration Date: 07/16/16 Care time: The patient presented to the Emergency Department on the above date and was hospitalized for further evaluation of their emergent condition. - New patient This patient is new to me today: Yes Date on this admission: 07/17/16 - Critical Care Critical Care patient: No
[2016-07-17] MEDS: INSULIN SLIDING SCALE (NOVOLOG) 1 VIAL SQ SCH ×2 (17:04→22:15)
--- NOTE | 2016-07-17 19:35 | CONSULT ---
Consult Consult Specialty:: infectious diseases Referred by:: Reason for Consultation:: sepsis,perforation - History of Present Illness History of Present Illness: patient intubated,post op sedated 65-year-old woman, , with a significant past medical history of hypertension, hypercholesterolemia, diabetes mellitus admitted for evaluation of abdominal pain for the past 3-4 days. patient was worked up and found to ahve free air and was taken to the OR and was operated finding a deuodenal perforation on exp lap post op patient in the icu family in the room currently intubated - History Source History Provided By: Family Member, Medical Record Limitations to Obtaining History: Clinical Condition - Past Medical History CRYSTAL ATTACHER: Yes: Dementia ...: No - Alcohol/Substance Use Hx Alcohol Use: Yes (2 beers daily) - Smoking History Smoking history: Never smoked Have you smoked in the past 12 months: No If you are a former smoker, when did you quit?: ONE YRS AGO - Social History Usual Living Arrangement: With Spouse Home Medications - Allergies Allergies/Adverse Reactions: Allergies Allergy/AdvReac Type Severity Reaction Status Date / Time No Known Drug Allergies Allergy Verified 07/16/16 09:56 - Home Medications Home Medications: Ambulatory Orders Glipizide Xl [Glucotrol Xl -] 5 mg PO DAILY 01/30/16 Lisinopril [Zestril] 30 mg PO DAILY 01/30/16 Metformin HCl [Metformin HCl ER] 1,000 mg PO BIDAC 01/30/16 Simvastatin 10 mg PO HS 01/30/16 Aspirin Coated [Ecotrin -] 81 mg PO DAILY 04/15/16 Review of Systems Unable to obtain ROS, reason: unable to obtain Physical Exam Vital Signs: Vital Signs Temperature 100.5 F H 07/17/16 18:00 Pulse Rate 133 H 07/17/16 18:00 Respiratory Rate 20 07/17/16 18:00 Blood Pressure 91/63 07/17/16 18:00 O2 Sat by Pulse Oximetry (%) 100 07/17/16 10:05 Constitutional: Yes: Other Eyes: Yes: Conjunctiva Clear HENT: Yes: Atraumatic, Normocephalic Neck: Yes: Supple, Trachea Midline Cardiovascular: Yes: Regular Rate and Rhythm, Tachycardia Respiratory: Yes: Regular, Intubated, Mechanically Ventilated, Other Gastrointestinal: Yes: Distention, Other (absent bowel sounds ng in place) Renal/: Yes: Bacon Present Musculoskeletal: Yes: WNL Extremities: Yes: WNL Wound/Incision: Yes: Dressing Dry and Intact Neurological: Yes: Other Labs: CBC, BMP 07/17/16 05:30 07/17/16 05:30 Imaging - Results Chest X-ray: Report Reviewed, Image Reviewed Cat Scan: Report Reviewed, Image Reviewed Assessment/Plan Assessment/Plan Septic Shock HTN Hypercholesterolemia Diabetes mellitus S/P Repair of a perforated duodenal perforation. plan have started on abx started on antifungal hydration as per surgery close monitoring critical condition cc time 50 min
[2016-07-17] MEDS: CHLORHEXIDINE GLUCONATE 4% CLEANSER FOR DECOLONIZATION TP SCH (22:14)
[2016-07-17] MEDS: MIDAZOLAM 100 MG in SODIUM CHLORIDE 100 ML IVPB SCH (22:17)
[2016-07-18] MEDS: NOREPINEPHRINE BITARTRATE 8,000 MCG in DEXTROSE 5%-WATER - 492 ML IV SCH ×4 (00:05→23:34)
[2016-07-18] MEDS: PHENYLEPHRINE HCL 10,000 MCG in DEXTROSE 5%-WATER - 499 ML IV SCH (00:58)
[2016-07-18] MEDS ORDERED: PT OWN MED DRAWER 7, Y5N ONE ×2 (01:10→09:00)
[2016-07-18] MEDS: LACTATED RINGERS SOLUTION 1,000 ML IV SCH (01:13)
[2016-07-18] MEDS: PIPERACILLIN/TAZOB 4.5 GM 100 ML IVPB SCH ×3 (01:13→17:03)
[2016-07-18] MEDS ORDERED: LACTATED RINGERS SOLUTION 1,000 ML IV STA (05:27)
[2016-07-18] MEDS ORDERED: SODIUM CHLORIDE 1,000 ML IV STA ×2 (05:29→22:39)
[2016-07-18 06:21] LABS: MCH 29.8 pg (25.7-33.7); MCHC 33.4 g/dl (32.0-36.0); MEAN CELL VOLUME 89.3 fl (80-96); MEAN PLT VOLUME 7.8 fl (7.5-11.1); PLATELET COUNT 129 K/MM3 (134-434); RDW 14.3 % (11.6-15.6); WHITE BLOOD COUNT 3.1 K/mm3 (4.0-10.0)
[2016-07-18] MEDS: INSULIN SLIDING SCALE (NOVOLOG) 1 VIAL SQ SCH ×4 (06:39→22:30)
[2016-07-18 06:46] LABS: ALBUMIN 1.4 g/dl (3.4-5.0); MAGNESIUM 1.8 mg/dL (1.8-2.4)
[2016-07-18 07:00] LABS: BILIRUBIN,TOTAL 0.2 mg/dL (0.2-1.0); COCKROFT - GAULT 55.25; CREATININE 1.2 mg/dL (0.55-1.02); PHOSPHOROUS 4.6 mg/dL (2.5-4.9); TOT PROT 3.5 g/dl (6.4-8.2)
[2016-07-18 07:04] LABS: CALCIUM 6.4 mg/dL (8.5-10.1)
[2016-07-18] MEDS: FENTANYL INJECTION 500 MCG in DEXTROSE 5%-WATER - 90 ML IJ SCH ×2 (07:35→17:04)
[2016-07-18 08:05] LABS: METAMYELOCYTE 6 % (0-2); PLATELET COMMENT2 NO CLOTTING DETECTED; PLATELET ESTIMATE SLT DECREASED (NORMAL); POLYCHROMASIA 1+; SMUDGE CELLS FEW
[2016-07-18 08:06] LABS: ANISOCYTOSIS 2+; HYPOCHROMIA 1+; POIKILOCYTOSIS 2+; TOXIC GRANULATION 1+
[2016-07-18] MEDS: FAMOTIDINE 20 MG/50 ML IVPB 50 ML IVPB SCH ×2 (09:04→22:00)
[2016-07-18] MEDS: FLUCONAZOLE 200 MG/NS 100 ML IVPB SCH (09:04)
[2016-07-18] MEDS: MUPIROCIN 2% TOPICAL OINTMENT FOR DECOLONIZATION NS SCH ×2 (09:08→22:00)
[2016-07-18] MEDS ORDERED: MAGNESIUM SULF 50% (8.12 MEQ/2 ML-1 GM VIAL) IVPB ONE (09:30)
[2016-07-18 09:41] LABS: ARTERIAL BLD GAS O2 SATURATION 95.1 % (90-98.9); ARTERIAL BLOOD GAS BASE EXCESS -12.1 meq/l (-2-2); ARTERIAL BLOOD GAS HCO3 15.9 meq/L (22-26); ARTERIAL BLOOD GAS PO2 84.6 mmHg (80-100)
[2016-07-18 09:42] LABS: ALLENS TEST POSITIVE; ART PUNCT SITE RIGHT RADIAL; LPM/O2% 60; MECH. VENT. YES; PT. ON O2? YES; TYPE OF O2 VENT; VENT RATE 12; VT/PRESS 450
[2016-07-18 09:43] LABS: ARTERIAL BLOOD GAS pH 7.16 (7.35-7.45)
--- NOTE | 2016-07-18 09:58 | PN ---
Progress Note, Physician Chief Complaint: Sedated on respirator History of Present Illness: S/P exploratory lap for perforated duodenal duodenal ulcer - Current Medication List Current Medications: Active Medications Acetaminophen (Ofirmev Injection -) 1,000 mg IVPB Q6H PRN PRN Reason: FEVER OR PAIN Stop: 07/18/16 16:32 Last Admin: 07/17/16 21:50 Dose: 1,000 mg Chlorhexidine Gluconate (Hibiclens For Decolonization -) 1 applic TP HS AVERY Last Admin: 07/17/16 22:14 Dose: 1 applic Fentanyl (Sublimaze Injection -) 50 mcg IVPUSH [id number] PRN PRN Reason: PAIN Stop: 07/19/16 23:31 Dextrose/Lactated Ringer's (D5-Lr -) 1,000 mls @ 125 mls/hr IV ASDIR AVERY Last Admin: 07/17/16 22:13 Dose: 125 mls/hr Piperacillin Sod/Tazobactam Sod (Zosyn 4.5gm Ivpb (Pre-Docked)) 100 mls @ 200 mls/hr IVPB Q8H-IV AVERY PRN Reason: Protocol Last Admin: 07/18/16 09:03 Dose: 200 mls/hr Fluconazole (Diflucan 200 Mg/Ns Premixed Ivpb -) 100 mls @ 100 mls/hr IVPB DAILY AVERY Last Admin: 07/18/16 09:04 Dose: 100 mls/hr Fentanyl 500 mcg/ Dextrose 100 mls @ 10 mls/hr IJ TITR AVERY PRN Reason: 50 MCG/HR Last Admin: 07/18/16 07:35 Dose: 10 mls/hr Midazolam HCl 100 mg/ Sodium (Chloride) 100 mls @ 5 mls/hr IVPB TITR AVERY; 5 MG/ HR PRN Reason: Protocol Last Admin: 07/17/16 22:17 Dose: 3 mls/hr Norepinephrine Bitartrate 8, (000 mcg/ Dextrose) 500 mls @ 18.75 mls/hr IV TITR AVERY; 5 MCG/MIN PRN Reason: Protocol Last Admin: 07/18/16 00:05 Dose: 75 mls/hr Lactated Ringer's (Lactated Ringers Solution) 1,000 mls @ 125 mls/hr IV ASDIR AVERY Last Admin: 07/18/16 01:13 Dose: Not Given Phenylephrine HCl 10,000 mcg/ (Dextrose) 500 mls @ 120 mls/hr IV TITR AVERY; 40 MCG/MIN PRN Reason: Protocol Last Admin: 07/18/16 00:58 Dose: Not Given Famotidine/Sodium Chloride (Pepcid 20 Mg Premixed Ivpb -) 50 mls @ 100 mls/hr IVPB BID AVERY Last Admin: 07/18/16 09:04 Dose: 100 mls/hr Sodium Phosphate 30 mm/ (Dextrose) 260 mls @ 62.5 mls/hr IVPB ONCE ONE Stop: 07/18/16 14:09 Insulin Aspart (Novolog Vial Sliding Scale -) 1 vial SQ ACHS AVERY PRN Reason: Protocol Last Admin: 07/18/16 06:39 Dose: Not Given Morphine Sulfate (Morphine Injection -) 1 mg IVPUSH Q3H PRN PRN Reason: PAIN Mupirocin (Bactroban Ointment (For Decolonization) -) 1 applic NS BID AVERY Stop: 07/21/16 21:59 Last Admin: 07/18/16 09:08 Dose: 1 applic - Objective Vital Signs: Vital Signs Temperature 99.3 F 07/18/16 08:00 Pulse Rate 123 H 07/18/16 08:00 Respiratory Rate 13 07/18/16 08:00 Blood Pressure 88/60 07/18/16 08:00 O2 Sat by Pulse Oximetry (%) 99 07/18/16 08:00 Eyes: Yes: Conjunctiva Clear Neck: Yes: Supple Cardiovascular: Yes: Regular Rate and Rhythm Respiratory: Yes: Mechanically Ventilated, On Venti-Mask Gastrointestinal: Yes: Distention ...Rectal Exam: Yes: Deferred Genitourinary: Yes: Bacon Present Edema: No Labs: CBC, BMP 07/18/16 05:15 07/18/16 05:15 INR, PTT INR 1.36 (0.82-1.09) H 07/16/16 17:00 Assessment/Plan case discussed with Dr Louise Metabolic acidosis, advised rpt ABG
[2016-07-18] MEDS ORDERED: SODIUM PHOSPHATE - 30 MM in DEXTROSE 5%-WATER - 250 ML IVPB ONE (10:00)
--- NOTE | 2016-07-18 10:24 | CONSULT ---
Consult - text type - Consultation Consultation Note: Renal Consult for ZAHIRA and Metabolic Acidosis This is a 65 year old woman with PMhx of hypertension, hypercholesterolemia, diabetes mellitus who presented with Abd pain and found to have perforated Abd viscus s/p emergent Sx now with Septic Shock, ZAHIRA and Metabolic Acidosis. Pt s/ p Exploratory laparotomy with Repair of perforated duodenal ulcer. Pt with hypotension during Sx and during hospital course. Currently in the ICU on Levophed. Sedated on the Vent. Cr improved from 2.4 to 1.2 (baseline 0.6-0.8). Pt with Ph of 7.17 and Bicarb of 19. CVP is ~4. PMhx: as above Allergies: NKDA Family Hx: NC Social Hx: Unable to obtain ROS: Unable to obtain because of clinical status Home Meds: Home Medications Medication Instructions Recorded Glipizide Xl [Glucotrol Xl -] 5 mg PO DAILY 01/30/16 Lisinopril [Zestril] 30 mg PO DAILY 01/30/16 Metformin HCl [Metformin HCl ER] 1,000 mg PO BIDAC 01/30/16 Simvastatin 10 mg PO HS 01/30/16 Aspirin Coated [Ecotrin -] 81 mg PO DAILY 04/15/16 Vital Signs Temperature 99.3 F 07/18/16 08:00 Pulse Rate 122 H 07/18/16 10:14 Respiratory Rate 15 07/18/16 09:20 Blood Pressure 88/60 07/18/16 08:00 O2 Sat by Pulse Oximetry (%) 97 07/18/16 10:14 Intake & Output 07/15/16 07/16/16 07/17/16 07/18/16 23:59 23:59 23:59 23:59 Intake Total 9450 44170 4792 Output Total 9084 2953 600 Balance 7505 2907 6184 Weight 152 lb 4.8 oz 156 lb 2 oz 169 lb 12.095 oz Gen: Sedated on the Vent. HEENT: NC/AT, No JVD, ET Tube in place CVS: RRR, No M/R Lungs: CTA (anterior exam) Abd: Abd pain in palce, sutures appear clean. + distension Ext: Trace LE edema, no clubbing or cyanosis : No bladder distension CBC, BMP 07/18/16 05:15 07/18/16 05:15 Laboratory Tests 07/18/16 07/18/16 05:15 08:40 Lactic Acid 2.093 H* Calcium 6.4 L* Phosphorus 4.6 D Magnesium 1.8 D Albumin 1.4 L Current Medications Acetaminophen (Ofirmev Injection -) 1,000 mg IVPB Q6H PRN PRN Reason: FEVER OR PAIN Stop: 07/18/16 16:32 Last Admin: 07/17/16 21:50 Dose: 1,000 mg Chlorhexidine Gluconate (Hibiclens For Decolonization -) 1 applic TP HS AVERY Last Admin: 07/17/16 22:14 Dose: 1 applic Fentanyl (Sublimaze Injection -) 50 mcg IVPUSH [id number] PRN PRN Reason: PAIN Stop: 07/19/16 23:31 Dextrose/Lactated Ringer's (D5-Lr -) 1,000 mls @ 125 mls/hr IV ASDIR AVERY Last Admin: 07/17/16 22:13 Dose: 125 mls/hr Piperacillin Sod/Tazobactam Sod (Zosyn 4.5gm Ivpb (Pre-Docked)) 100 mls @ 200 mls/hr IVPB Q8H-IV AVERY PRN Reason: Protocol Last Admin: 07/18/16 09:03 Dose: 200 mls/hr Fluconazole (Diflucan 200 Mg/Ns Premixed Ivpb -) 100 mls @ 100 mls/hr IVPB DAILY AVERY Last Admin: 07/18/16 09:04 Dose: 100 mls/hr Fentanyl 500 mcg/ Dextrose 100 mls @ 10 mls/hr IJ TITR AVERY PRN Reason: 50 MCG/HR Last Admin: 07/18/16 07:35 Dose: 10 mls/hr Midazolam HCl 100 mg/ Sodium (Chloride) 100 mls @ 5 mls/hr IVPB TITR AVERY; 5 MG/ HR PRN Reason: Protocol Last Admin: 07/17/16 22:17 Dose: 3 mls/hr Norepinephrine Bitartrate 8, (000 mcg/ Dextrose) 500 mls @ 18.75 mls/hr IV TITR AVERY; 5 MCG/MIN PRN Reason: Protocol Last Admin: 07/18/16 00:05 Dose: 75 mls/hr Lactated Ringer's (Lactated Ringers Solution) 1,000 mls @ 125 mls/hr IV ASDIR AVERY Last Admin: 07/18/16 01:13 Dose: Not Given Phenylephrine HCl 10,000 mcg/ (Dextrose) 500 mls @ 120 mls/hr IV TITR AVERY; 40 MCG/MIN PRN Reason: Protocol Last Admin: 07/18/16 00:58 Dose: Not Given Famotidine/Sodium Chloride (Pepcid 20 Mg Premixed Ivpb -) 50 mls @ 100 mls/hr IVPB BID AVERY Last Admin: 07/18/16 09:04 Dose: 100 mls/hr Sodium Phosphate 30 mm/ (Dextrose) 260 mls @ 62.5 mls/hr IVPB ONCE ONE Stop: 07/18/16 14:09 Insulin Aspart (Novolog Vial Sliding Scale -) 1 vial SQ ACHS AVERY PRN Reason: Protocol Last Admin: 07/18/16 06:39 Dose: Not Given Morphine Sulfate (Morphine Injection -) 1 mg IVPUSH Q3H PRN PRN Reason: PAIN Mupirocin (Bactroban Ointment (For Decolonization) -) 1 applic NS BID AVERY Stop: 07/21/16 21:59 Last Admin: 07/18/16 09:08 Dose: 1 applic A/P 65 year old woman with PMhx of hypertension, hypercholesterolemia, diabetes mellitus who presented with Abd pain and found to have perforated Abd viscus s/ p emergent Sx now with Septic Shock, ZAHIRA and Metabolic Acidosis. #Anion gap Metabolic acidosis with additional Respiratory acidosis Corrected Anion gap is 17.5 with gives a complete anion gap acidosis Expected PCO2 with serum bicarb of 19 is 36.5 indicating additional respiratory acidosis RR to be increased by ICU team with repeat ABG Pt with Renal failure and lactic acidosis that are contributing to metabolic acidosis IVF to obtain CVP of 10-12 Vasopresser to get MAP > 65 no indication for bicarb at this time Trend ABG's and serum Bicarb #Non-oliguric Acute Renal failure now improving pt with good urine output continue IVF and Vasopressers as needed Trend BUN/Cr Dose all meds for Cr Cl less then 30 avoid nephrotoxins (NSSAIDS, IV contrast) #Sepsis/Perforated Abd Viscus ICU Care Surgical Follow up Vent support #Leukopenia/Thrombocytopenia likey from sepsis trend CBC Abx as per ID/ICU #Pleural effusions in setting of Low albumin and Sepsis continue vent support IVF continued for management of shock Thank you Cyril Tubbs DO
[2016-07-18 10:30] LABS: ALLENS TEST POSITIVE; ART PUNCT SITE RIGHT RADIAL; ARTERIAL BLD GAS O2 SATURATION 96.7 % (90-98.9); ARTERIAL BLOOD GAS BASE EXCESS -12.7 meq/l (-2-2); ARTERIAL BLOOD GAS HCO3 14.9 meq/L (22-26); ARTERIAL BLOOD GAS PO2 97.4 mmHg (80-100); LPM/O2% 60; MECH. VENT. YES; PT. ON O2? YES; TYPE OF O2 VENT
[2016-07-18 10:31] LABS: ARTERIAL BLOOD GAS pH 7.17 (7.35-7.45); VENT RATE 12; VT/PRESS 450
[2016-07-18] MEDS ORDERED: NOREPINEPHRINE BITARTRATE 4 MG/4 ML ML IV ONE ×3 (10:52→22:46)
--- NOTE | 2016-07-18 11:20 | PN ---
Progress Note, Physician History of Present Illness: patient still intubated looks more critical that yesterday on pressors which has increased acidotic - Current Medication List Current Medications: Active Medications Acetaminophen (Ofirmev Injection -) 1,000 mg IVPB Q6H PRN PRN Reason: FEVER OR PAIN Stop: 07/18/16 16:32 Last Admin: 07/17/16 21:50 Dose: 1,000 mg Chlorhexidine Gluconate (Hibiclens For Decolonization -) 1 applic TP HS AVERY Last Admin: 07/17/16 22:14 Dose: 1 applic Fentanyl (Sublimaze Injection -) 50 mcg IVPUSH [id number] PRN PRN Reason: PAIN Stop: 07/19/16 23:31 Dextrose/Lactated Ringer's (D5-Lr -) 1,000 mls @ 125 mls/hr IV ASDIR AVERY Last Admin: 07/17/16 22:13 Dose: 125 mls/hr Piperacillin Sod/Tazobactam Sod (Zosyn 4.5gm Ivpb (Pre-Docked)) 100 mls @ 200 mls/hr IVPB Q8H-IV AVERY PRN Reason: Protocol Last Admin: 07/18/16 09:03 Dose: 200 mls/hr Fluconazole (Diflucan 200 Mg/Ns Premixed Ivpb -) 100 mls @ 100 mls/hr IVPB DAILY AVERY Last Admin: 07/18/16 09:04 Dose: 100 mls/hr Fentanyl 500 mcg/ Dextrose 100 mls @ 10 mls/hr IJ TITR AVERY PRN Reason: 50 MCG/HR Last Admin: 07/18/16 07:35 Dose: 10 mls/hr Midazolam HCl 100 mg/ Sodium (Chloride) 100 mls @ 5 mls/hr IVPB TITR AVERY; 5 MG/ HR PRN Reason: Protocol Last Admin: 07/17/16 22:17 Dose: 3 mls/hr Norepinephrine Bitartrate 8, (000 mcg/ Dextrose) 500 mls @ 18.75 mls/hr IV TITR AVERY; 5 MCG/MIN PRN Reason: Protocol Last Admin: 07/18/16 10:58 Dose: 56.25 mls/hr Lactated Ringer's (Lactated Ringers Solution) 1,000 mls @ 125 mls/hr IV ASDIR AVERY Last Admin: 07/18/16 01:13 Dose: Not Given Phenylephrine HCl 10,000 mcg/ (Dextrose) 500 mls @ 120 mls/hr IV TITR AVERY; 40 MCG/MIN PRN Reason: Protocol Last Admin: 07/18/16 00:58 Dose: Not Given Famotidine/Sodium Chloride (Pepcid 20 Mg Premixed Ivpb -) 50 mls @ 100 mls/hr IVPB BID AVERY Last Admin: 07/18/16 09:04 Dose: 100 mls/hr Insulin Aspart (Novolog Vial Sliding Scale -) 1 vial SQ ACHS AVERY PRN Reason: Protocol Last Admin: 07/18/16 10:58 Dose: Not Given Morphine Sulfate (Morphine Injection -) 1 mg IVPUSH Q3H PRN PRN Reason: PAIN Mupirocin (Bactroban Ointment (For Decolonization) -) 1 applic NS BID [facility] Stop: 07/21/16 21:59 Last Admin: 07/18/16 09:08 Dose: 1 applic - Objective Vital Signs: Vital Signs Temperature 99.7 F H 07/18/16 10:00 Pulse Rate 123 H 07/18/16 10:58 Respiratory Rate 14 07/18/16 10:00 Blood Pressure 108/46 07/18/16 10:58 O2 Sat by Pulse Oximetry (%) 97 07/18/16 10:14 Constitutional: Yes: Other Cardiovascular: Yes: Tachycardia Respiratory: Yes: Intubated, Mechanically Ventilated Gastrointestinal: Yes: Other (absent bowel sound,ng with bilious driange, draiange tube present) Musculoskeletal: Yes: WNL Extremities: Yes: WNL Wound/Incision: Yes: Other Psychiatric: Yes: Other Labs: CBC, BMP 07/18/16 05:15 07/18/16 05:15 INR, PTT INR 1.36 (0.82-1.09) H 07/16/16 17:00 Assessment/Plan Problem List - Problems (1) Abdominal pain Code(s): R10.9 - UNSPECIFIED ABDOMINAL PAIN Qualifiers: Qualified Code(s): R10.33 - Periumbilical pain (2) Perforated abdominal viscus Code(s): [id number] - (3) Perforated viscus Code(s): R19.8 - OTH SYMPTOMS AND SIGNS INVOLVING THE DGSTV SYS AND ABDOMEN (4) Hypertension Code(s): I10 - ESSENTIAL (PRIMARY) HYPERTENSION Qualifiers: Qualified Code(s): I10 - Essential (primary) hypertension lactic acidosis plan continue current mgmt follow ph adjust accordingly hydration continue abx cc time 40 min
[2016-07-18] MEDS ORDERED: SODIUM CHLORIDE 500 ML IV STA (11:32)
[2016-07-18] MEDS: DEXTROSE 5%-NORMAL SALINE 1,000 ML IV SCH ×2 (11:42→16:33)
[2016-07-18 11:45] LABS: ALLENS TEST POSITIVE; ART PUNCT SITE LEFT RADIAL; ARTERIAL BLD GAS O2 SATURATION 96.7 % (90-98.9); ARTERIAL BLOOD GAS BASE EXCESS -12.3 meq/l (-2-2); ARTERIAL BLOOD GAS HCO3 14.3 meq/L (22-26); ARTERIAL BLOOD GAS PO2 91.5 mmHg (80-100); LPM/O2% 60; MECH. VENT. YES; PT. ON O2? YES; TYPE OF O2 VENT; VT/PRESS 450
[2016-07-18 11:45] LABS: URINE APPEARANCE CLOUDY; URINE BILIRUBIN NEGATIVE (NEGATIVE); URINE COLOR YELLOW; URINE GLUCOSE (UA) NEGATIVE (NEGATIVE); URINE KETONE NEGATIVE (NEGATIVE); URINE LEUK ESTERASE NEGATIVE (NEGATIVE); URINE NITRITE NEGATIVE (NEGATIVE); URINE UROBILINOGEN NEGATIVE E.U./dl (0.2-1.0)
[2016-07-18 11:46] LABS: ARTERIAL BLOOD GAS pH 7.21 (7.35-7.45); VENT RATE 20
[2016-07-18 11:46] LABS: URINE BLOOD 3+ (NEGATIVE); URINE PROTEIN 2+ (NEGATIVE)
[2016-07-18 12:07] LABS: GRANULAR CASTS 58 /lpf; URINE RBC 2 /hpf (0-3); URINE WBC 9 /hpf (3-5); YEAST MODERATE
--- NOTE | 2016-07-18 12:12 | HP ---
History & Physical Update - History History: No Change - Physical Physical: No Change - Assessment Assessment: No Change - Plan Plan: No Change
--- NOTE | 2016-07-18 12:46 | PN ---
Teaching Attending Note Name of Resident: Trevin Terrazas ATTENDING PHYSICIAN STATEMENT I saw and evaluated the patient. I reviewed the resident's note and discussed the case with the resident. I agree with the resident's findings and plan as documented. SUBJECTIVE: Patient seen and examined in the ICU. Remains intubated and sedated. AC Mode of vent, 60% FiO2. NE 15 mcq for hemodynamic support. Lactic acid level trending down. CVP = 4. CXR: Bilateral pulmonary vascular infiltrates / small effusions Intake & Output 07/15/16 07/16/16 07/17/16 07/18/16 23:59 23:59 23:59 23:59 Intake Total 9450 32748 5917 Output Total 1925 3150 600 Balance 7525 7135 5317 Weight 152 lb 4.8 oz 156 lb 2 oz 169 lb 12.095 oz Last Vital Signs Temp Pulse Resp BP Pulse Ox 99.7 F H 123 H 21 108/46 97 07/18/16 10:00 07/18/16 10:58 07/18/16 11:51 07/18/16 10:58 07/18/16 10:14 Active Medications Acetaminophen (Ofirmev Injection -) 1,000 mg IVPB Q6H PRN PRN Reason: FEVER OR PAIN Stop: 07/18/16 16:32 Last Admin: 07/17/16 21:50 Dose: 1,000 mg Chlorhexidine Gluconate (Hibiclens For Decolonization -) 1 applic TP HS AVERY Last Admin: 07/17/16 22:14 Dose: 1 applic Fentanyl (Sublimaze Injection -) 50 mcg IVPUSH [id number] PRN PRN Reason: PAIN Stop: 07/19/16 23:31 Piperacillin Sod/Tazobactam Sod (Zosyn 4.5gm Ivpb (Pre-Docked)) 100 mls @ 200 mls/hr IVPB Q8H-IV AVERY PRN Reason: Protocol Last Admin: 07/18/16 09:03 Dose: 200 mls/hr Fluconazole (Diflucan 200 Mg/Ns Premixed Ivpb -) 100 mls @ 100 mls/hr IVPB DAILY AVERY Last Admin: 07/18/16 09:04 Dose: 100 mls/hr Fentanyl 500 mcg/ Dextrose 100 mls @ 10 mls/hr IJ TITR AVERY PRN Reason: 50 MCG/HR Last Admin: 07/18/16 07:35 Dose: 10 mls/hr Midazolam HCl 100 mg/ Sodium (Chloride) 100 mls @ 5 mls/hr IVPB TITR AVERY; 5 MG/ HR PRN Reason: Protocol Last Admin: 07/17/16 22:17 Dose: 3 mls/hr Norepinephrine Bitartrate 8, (000 mcg/ Dextrose) 500 mls @ 18.75 mls/hr IV TITR AVERY; 5 MCG/MIN PRN Reason: Protocol Last Admin: 07/18/16 10:58 Dose: 56.25 mls/hr Lactated Ringer's (Lactated Ringers Solution) 1,000 mls @ 125 mls/hr IV ASDIR AVERY Last Admin: 07/18/16 01:13 Dose: Not Given Phenylephrine HCl 10,000 mcg/ (Dextrose) 500 mls @ 120 mls/hr IV TITR AVERY; 40 MCG/MIN PRN Reason: Protocol Last Admin: 07/18/16 00:58 Dose: Not Given Famotidine/Sodium Chloride (Pepcid 20 Mg Premixed Ivpb -) 50 mls @ 100 mls/hr IVPB BID AVERY Last Admin: 07/18/16 09:04 Dose: 100 mls/hr Dextrose/Sodium Chloride (D5-Ns -) 1,000 mls @ 125 mls/hr IV ASDIR AVERY Last Admin: 07/18/16 11:42 Dose: 125 mls/hr Insulin Aspart (Novolog Vial Sliding Scale -) 1 vial SQ ACHS AVERY PRN Reason: Protocol Last Admin: 07/18/16 10:58 Dose: Not Given Morphine Sulfate (Morphine Injection -) 1 mg IVPUSH Q3H PRN PRN Reason: PAIN Mupirocin (Bactroban Ointment (For Decolonization) -) 1 applic NS BID AVERY Stop: 07/21/16 21:59 Last Admin: 07/18/16 09:08 Dose: 1 applic Constitutional: Yes: Intubated and sedated Eyes: Yes: PERRL HENT: Yes: Atraumatic, Normocephalic Neck: Yes: Supple, Trachea Midline Cardiovascular: Yes: Tachycardia, S1, S2 Respiratory: Yes: Mechanically Ventilated, Rhonchi Gastrointestinal: Yes: Soft, Hypoactive Bowel Sounds ...Rectal Exam: Yes: Deferred Renal/: Yes: Bacon Present Extremities: Yes: WNL Edema: No Peripheral Pulses WNL: Yes (+) PP Integumentary: Yes: WNL Wound/Incision: Yes: Clean/Dry, Dressing Dry and Intact Neurological: Yes: Other (Sedated) Labs: Laboratory Results - last 24 hr 07/16/16 07/17/16 07/17/16 17:45 14:00 16:53 WBC RBC Hgb Hct MCV MCHC RDW Plt Count MPV Neutrophils % Lymphocytes % Monocytes % Eosinophils % Band Neutrophils Metamyelocytes Smudge Cells Toxic Granulation Platelet Estimate Platelet Comment Polychromasia Hypochromic-Microcytic Poikilocytosis Anisocytosis Puncture Site ABG pH ABG pCO2 at Pt Temp ABG pO2 at Pt Temp ABG HCO3 ABG O2 Sat (Measured) ABG O2 Content ABG Base Excess Heber Test O2 Delivery Device Oxygen Flow Rate Vent Mode Vent Rate Mechanical Rate PEEP Pressure Support Vent Sodium Potassium Chloride Carbon Dioxide Anion Gap BUN Creatinine Creat Clearance w eGFR POC Glucometer [phone] Random Glucose Lactic Acid 5.457 H* Calcium Phosphorus Magnesium Total Bilirubin AST ALT Alkaline Phosphatase Total Protein Albumin Urine Color Urine Appearance Urine pH Urine Protein Urine Glucose (UA) Urine Ketones Urine Blood Urine Nitrite Urine Bilirubin Urine Urobilinogen Ur Leukocyte Esterase Urine RBC Urine WBC Ur Epithelial Cells Granular Casts Urine Yeast Urine Creatinine Blood Type O POSITIVE Antibody Screen Negative Crossmatch See Detail Spec Expiration Date 07/17/16 07/17/16 07/18/16 20:45 22:10 05:15 WBC 3.1 L D RBC 3.45 L Hgb 10.3 L D Hct 30.9 L D MCV 89.3 MCHC 33.4 RDW 14.3 Plt Count 129 L D MPV 7.8 Neutrophils % 40.0 L D Lymphocytes % 13.0 D Monocytes % 5.0 Eosinophils % 3.0 Band Neutrophils 31.0 H D Metamyelocytes 6 H D Smudge Cells Few Toxic Granulation 1+ Platelet Estimate Slt decreased Platelet Comment No clotting detected Polychromasia 1+ Hypochromic-Microcytic 1+ Poikilocytosis 2+ Anisocytosis 2+ Puncture Site ABG pH ABG pCO2 at Pt Temp ABG pO2 at Pt Temp ABG HCO3 ABG O2 Sat (Measured) ABG O2 Content ABG Base Excess Heber Test O2 Delivery Device Oxygen Flow Rate Vent Mode Vent Rate Mechanical Rate PEEP Pressure Support Vent Sodium Potassium Chloride Carbon Dioxide Anion Gap BUN Creatinine Creat Clearance w eGFR POC Glucometer [phone] Random Glucose Lactic Acid 3.577 H* Calcium Phosphorus Magnesium Total Bilirubin AST ALT Alkaline Phosphatase Total Protein Albumin Urine Color Urine Appearance Urine pH Urine Protein Urine Glucose (UA) Urine Ketones Urine Blood Urine Nitrite Urine Bilirubin Urine Urobilinogen Ur Leukocyte Esterase Urine RBC Urine WBC Ur Epithelial Cells Granular Casts Urine Yeast Urine Creatinine Blood Type Antibody Screen Crossmatch Spec Expiration Date 07/18/16 07/18/16 07/18/16 05:15 05:20 08:40 WBC RBC Hgb Hct MCV MCHC RDW Plt Count MPV Neutrophils % Lymphocytes % Monocytes % Eosinophils % Band Neutrophils Metamyelocytes Smudge Cells Toxic Granulation Platelet Estimate Platelet Comment Polychromasia Hypochromic-Microcytic Poikilocytosis Anisocytosis Puncture Site ABG pH ABG pCO2 at Pt Temp ABG pO2 at Pt Temp ABG HCO3 ABG O2 Sat (Measured) ABG O2 Content ABG Base Excess Heber Test O2 Delivery Device Oxygen Flow Rate Vent Mode Vent Rate Mechanical Rate PEEP Pressure Support Vent Sodium 140 Potassium 4.4 Chloride 110 H Carbon Dioxide 19 L D Anion Gap 11 BUN 19 H Creatinine 1.2 H Creat Clearance w eGFR 44.81 POC Glucometer [phone] Random Glucose 120 H D Lactic Acid 2.093 H* Calcium 6.4 L* Phosphorus 4.6 D Magnesium 1.8 D Total Bilirubin 0.2 D AST 63 H ALT 45 Alkaline Phosphatase 42 L Total Protein 3.5 L Albumin 1.4 L Urine Color Urine Appearance Urine pH Urine Protein Urine Glucose (UA) Urine Ketones Urine Blood Urine Nitrite Urine Bilirubin Urine Urobilinogen Ur Leukocyte Esterase Urine RBC Urine WBC Ur Epithelial Cells Granular Casts Urine Yeast Urine Creatinine Blood Type Antibody Screen Crossmatch Spec Expiration Date 07/18/16 07/18/16 07/18/16 09:35 10:10 10:15 WBC RBC Hgb Hct MCV MCHC RDW Plt Count MPV Neutrophils % Lymphocytes % Monocytes % Eosinophils % Band Neutrophils Metamyelocytes Smudge Cells Toxic Granulation Platelet Estimate Platelet Comment Polychromasia Hypochromic-Microcytic Poikilocytosis Anisocytosis Puncture Site Right radial Right radial ABG pH 7.16 L* D 7.17 L* ABG pCO2 at Pt Temp 46.3 H D 42.9 ABG pO2 at Pt Temp 84.6 97.4 ABG HCO3 15.9 L 14.9 L* ABG O2 Sat (Measured) 95.1 96.7 ABG O2 Content 14.5 L 14.2 L ABG Base Excess -12.1 L* -12.7 L* Heber Test Positive Positive O2 Delivery Device Vent Y Vent Oxygen Flow Rate 60 60 Vent Mode A/c A/c Vent Rate 12 12 Mechanical Rate Yes Yes PEEP 5.0 5.0 Pressure Support Vent 450 450 Sodium Potassium Chloride Carbon Dioxide Anion Gap BUN Creatinine Creat Clearance w eGFR POC Glucometer Random Glucose Lactic Acid Calcium Phosphorus Magnesium Total Bilirubin AST ALT Alkaline Phosphatase Total Protein Albumin Urine Color Urine Appearance Urine pH Urine Protein Urine Glucose (UA) Urine Ketones Urine Blood Urine Nitrite Urine Bilirubin Urine Urobilinogen Ur Leukocyte Esterase Urine RBC Urine WBC Ur Epithelial Cells Granular Casts Urine Yeast Urine Creatinine Blood Type Antibody Screen Crossmatch Spec Expiration Date 07/18/16 07/18/16 07/18/16 10:50 11:00 11:00 WBC RBC Hgb Hct MCV MCHC RDW Plt Count MPV Neutrophils % Lymphocytes % Monocytes % Eosinophils % Band Neutrophils Metamyelocytes Smudge Cells Toxic Granulation Platelet Estimate Platelet Comment Polychromasia Hypochromic-Microcytic Poikilocytosis Anisocytosis Puncture Site ABG pH ABG pCO2 at Pt Temp ABG pO2 at Pt Temp ABG HCO3 ABG O2 Sat (Measured) ABG O2 Content ABG Base Excess Heber Test O2 Delivery Device Oxygen Flow Rate Vent Mode Vent Rate Mechanical Rate PEEP Pressure Support Vent Sodium Potassium Chloride Carbon Dioxide Anion Gap BUN Creatinine Creat Clearance w eGFR POC Glucometer [phone] Random Glucose Lactic Acid Calcium Phosphorus Magnesium Total Bilirubin AST ALT Alkaline Phosphatase Total Protein Albumin Urine Color Yellow Urine Appearance Cloudy Urine pH 5.0 Urine Protein 2+ H Urine Glucose (UA) Negative Urine Ketones Negative Urine Blood 3+ H Urine Nitrite Negative Urine Bilirubin Negative Urine Urobilinogen Negative Ur Leukocyte Esterase Negative Urine RBC 2 Urine WBC 9 Ur Epithelial Cells Rare Granular Casts 58 Urine Yeast Moderate Urine Creatinine 56.3 Blood Type Antibody Screen Crossmatch Spec Expiration Date 07/18/16 11:30 WBC RBC Hgb Hct MCV MCHC RDW Plt Count MPV Neutrophils % Lymphocytes % Monocytes % Eosinophils % Band Neutrophils Metamyelocytes Smudge Cells Toxic Granulation Platelet Estimate Platelet Comment Polychromasia Hypochromic-Microcytic Poikilocytosis Anisocytosis Puncture Site Left radial ABG pH 7.21 L* ABG pCO2 at Pt Temp 36.7 ABG pO2 at Pt Temp 91.5 ABG HCO3 14.3 L* ABG O2 Sat (Measured) 96.7 ABG O2 Content 13.8 L ABG Base Excess -12.3 L* Heber Test Positive O2 Delivery Device Vent Oxygen Flow Rate 60 Vent Mode A/c Vent Rate 20 Mechanical Rate Yes PEEP 5.0 Pressure Support Vent 450 Sodium Potassium Chloride Carbon Dioxide Anion Gap BUN Creatinine Creat Clearance w eGFR POC Glucometer Random Glucose Lactic Acid Calcium Phosphorus Magnesium Total Bilirubin AST ALT Alkaline Phosphatase Total Protein Albumin Urine Color Urine Appearance Urine pH Urine Protein Urine Glucose (UA) Urine Ketones Urine Blood Urine Nitrite Urine Bilirubin Urine Urobilinogen Ur Leukocyte Esterase Urine RBC Urine WBC Ur Epithelial Cells Granular Casts Urine Yeast Urine Creatinine Blood Type Antibody Screen Crossmatch Spec Expiration Date Problem List - Problems (1) Hypertension Code(s): I10 - ESSENTIAL (PRIMARY) HYPERTENSION Qualifiers: Hypertension type: essential hypertension Qualified Code(s): I10 - Essential (primary) hypertension (2) Perforated abdominal viscus Code(s): ODG4300 - Assessment/Plan Septic Shock HTN Hypercholesterolemia Diabetes mellitus S/P Repair of a perforated duodenal perforation. (?) ARDS -> rather suspect Pulmonary vascular congestion PLAN: ABX per ID Sedate IVF boluses to increase CVP Wean pressors Pepcid Strict I&O Glycemic control Replete lytes VTE prophylaxis No blood transfusion today Follow CBC Follow ABG Dr Dubon critical care time spent in reviewing chart, evaluating patient and formulating plan 38 min
--- NOTE | 2016-07-18 12:59 | CONSULT ---
Consult Consult Specialty:: Oncology -hematology Referred by:: Dr. Louise Reason for Consultation:: Neutropenia/thrombocytopenia - History of Present Illness Chief Complaint: 3 days of abdominal pains. Presented with perforation of proximal duodenum and peritonitis. Underwent exploratory lap and repair of duodenal ulceration . Had neutropenia- , now improving and now developing thrombocytopenia. - History Source History Provided By: Medical Record Limitations to Obtaining History: Intubated - Past Medical History PIGMENT PROCESSOR: Yes: Dementia ...: No - Alcohol/Substance Use Hx Alcohol Use: Yes (2 beers daily) - Smoking History Smoking history: Never smoked Have you smoked in the past 12 months: No If you are a former smoker, when did you quit?: ONE YRS AGO - Social History Usual Living Arrangement: With Spouse Home Medications - Allergies Allergies/Adverse Reactions: Allergies Allergy/AdvReac Type Severity Reaction Status Date / Time No Known Drug Allergies Allergy Verified 07/16/16 09:56 - Home Medications Home Medications: Ambulatory Orders Glipizide Xl [Glucotrol Xl -] 5 mg PO DAILY 01/30/16 Lisinopril [Zestril] 30 mg PO DAILY 01/30/16 Metformin HCl [Metformin HCl ER] 1,000 mg PO BIDAC 01/30/16 Simvastatin 10 mg PO HS 01/30/16 Aspirin Coated [Ecotrin -] 81 mg PO DAILY 04/15/16 Physical Exam Vital Signs: Vital Signs Temperature 99.7 F H 07/18/16 10:00 Pulse Rate 123 H 07/18/16 10:58 Respiratory Rate 21 07/18/16 11:51 Blood Pressure 108/46 07/18/16 10:58 O2 Sat by Pulse Oximetry (%) 97 07/18/16 10:14 Constitutional: Yes: Other (intubated) Eyes: No: Sclera Icterus HENT: Yes: Other (E-T tube) Neck: No: Lymphadenopathy, Tenderness Cardiovascular: Yes: Regular Rate and Rhythm Respiratory: Yes: Rhonchi Gastrointestinal: Yes: Normal Bowel Sounds, Other (drainage RLQ, Midline tania distended) Renal/: Yes: Bacon Present Breast(s): Yes: WNL, Left, Right Extremities: Yes: Other (cool and dusky nail beds) Edema: No Integumentary: Yes: Other (dusky cool nail beds). No: Bruising, Rash Wound/Incision: Yes: Elwin Intact Neurological: Yes: Other (intubated and sedated) Labs: CBC, BMP 07/18/16 05:15 07/18/16 05:15 Assessment/Plan 65 year old female presents with 3 days of abdominal pain. Underwent exploratory laporatomy with perforation of either first or second portion of duodenum (both stated).m Had repair with oversew of ulcer. . Had washout of peritoneal exudative cavity Problem: Respirator/ventilatory support Pressor support Sepsis secondary to peritonitis S/P duodenal ulcer repair and peritoneal wash-out Neutropenia secondary to sepsis with toxic granulation and left shift with early WBC forms. Thrombocytopenia which is developing with platelets today of 129K. Suspect sepsis as etiology Anemia- s/p transfusion of packed cells- likely acute and chronic disease +/- component of blood loss. PT/INR elevated with normal PTT Suspect sepsis as underlying etiology of neutropenia thrombocytopenia and coagulopathy . Will check and monitor coags. Will monitor for now. Management per ICU team with respirator/ventilatory management, and antibiotics per I.D.
[2016-07-18] MEDS: ACETAMINOPHEN 1000 MG/100 ML VIAL (NON FORMULARY) IVPB PRN (13:00)
[2016-07-18 15:01] LABS: ARTERIAL BLD GAS O2 SATURATION 97.5 % (90-98.9); ARTERIAL BLOOD GAS BASE EXCESS -11.8 meq/l (-2-2); ARTERIAL BLOOD GAS HCO3 13.7 meq/L (22-26); ARTERIAL BLOOD GAS PO2 93.3 mmHg (80-100)
[2016-07-18 15:02] LABS: ALLENS TEST POSITIVE; ART PUNCT SITE LEFT RADIAL; ARTERIAL BLOOD GAS pH 7.27 (7.35-7.45); LPM/O2% 60; MECH. VENT. YES; PT. ON O2? YES; TYPE OF O2 VENT; VENT RATE 24; VT/PRESS 450
--- NOTE | 2016-07-18 15:13 | PN ---
Physical Exam: SUBJECTIVE: Patient seen and examined. pt sedated and intubated. OBJECTIVE: Vital Signs Period Temp Pulse Resp BP Sys/Major Pulse Ox Last 24 Hr 99.3 F-101.5 F 122-136 13-24 77-108/46-63 96-99 EYES: sclera anicteric, conjunctiva clear. pupils reactive to light. ENT: oropharynx with endotracheal tube, moist mucous membranes. NGT in place. NECK: Trachea midline LUNGS: anterior auscultation clear lung andino. HEART: tachycardiac, S1, S2 without murmur LUNGS: Breath sounds equal, course breath sounds b/l HEART: sinus tachycardia, S1, S2 without murmur, rub or gallop. ABDOMEN: + bowel sounds in 4quadrants, midline tania in place without incisional discharge or surrounding erythema. +distention. tube in place in right mid quadrant draining to suction without leakage or skin breakdown. EXTREMITIES: doppler b/l radial pulses, 2+ femoral 1+ popliteal pulses, doppler DP pulses. cool extremities, no skin mottling. williamson in place. Laboratory Results - last 24 hr 07/17/16 07/17/16 07/17/16 14:00 16:53 20:45 WBC RBC Hgb Hct MCV MCHC RDW Plt Count MPV Neutrophils % Lymphocytes % Monocytes % Eosinophils % Band Neutrophils Metamyelocytes Smudge Cells Toxic Granulation Platelet Estimate Platelet Comment Polychromasia Hypochromic-Microcytic Poikilocytosis Anisocytosis Puncture Site ABG pH ABG pCO2 at Pt Temp ABG pO2 at Pt Temp ABG HCO3 ABG O2 Sat (Measured) ABG O2 Content ABG Base Excess Heber Test O2 Delivery Device Oxygen Flow Rate Vent Mode Vent Rate Mechanical Rate PEEP Pressure Support Vent Sodium Potassium Chloride Carbon Dioxide Anion Gap BUN Creatinine Creat Clearance w eGFR POC Glucometer [phone] Random Glucose Lactic Acid 5.457 H* 3.577 H* Calcium Phosphorus Magnesium Total Bilirubin AST ALT Alkaline Phosphatase Total Protein Albumin Urine Color Urine Appearance Urine pH Urine Protein Urine Glucose (UA) Urine Ketones Urine Blood Urine Nitrite Urine Bilirubin Urine Urobilinogen Ur Leukocyte Esterase Urine RBC Urine WBC Ur Epithelial Cells Granular Casts Urine Yeast Ur Random Sodium Urine Creatinine 07/17/16 07/18/16 07/18/16 22:10 05:15 05:15 WBC 3.1 L D RBC 3.45 L Hgb 10.3 L D Hct 30.9 L D MCV 89.3 MCHC 33.4 RDW 14.3 Plt Count 129 L D MPV 7.8 Neutrophils % 40.0 L D Lymphocytes % 13.0 D Monocytes % 5.0 Eosinophils % 3.0 Band Neutrophils 31.0 H D Metamyelocytes 6 H D Smudge Cells Few Toxic Granulation 1+ Platelet Estimate Slt decreased Platelet Comment No clotting detected Polychromasia 1+ Hypochromic-Microcytic 1+ Poikilocytosis 2+ Anisocytosis 2+ Puncture Site ABG pH ABG pCO2 at Pt Temp ABG pO2 at Pt Temp ABG HCO3 ABG O2 Sat (Measured) ABG O2 Content ABG Base Excess Heber Test O2 Delivery Device Oxygen Flow Rate Vent Mode Vent Rate Mechanical Rate PEEP Pressure Support Vent Sodium 140 Potassium 4.4 Chloride 110 H Carbon Dioxide 19 L D Anion Gap 11 BUN 19 H Creatinine 1.2 H Creat Clearance w eGFR 44.81 POC Glucometer [phone] Random Glucose 120 H D Lactic Acid Calcium 6.4 L* Phosphorus 4.6 D Magnesium 1.8 D Total Bilirubin 0.2 D AST 63 H ALT 45 Alkaline Phosphatase 42 L Total Protein 3.5 L Albumin 1.4 L Urine Color Urine Appearance Urine pH Urine Protein Urine Glucose (UA) Urine Ketones Urine Blood Urine Nitrite Urine Bilirubin Urine Urobilinogen Ur Leukocyte Esterase Urine RBC Urine WBC Ur Epithelial Cells Granular Casts Urine Yeast Ur Random Sodium Urine Creatinine 07/18/16 07/18/16 07/18/16 05:20 08:40 09:35 WBC RBC Hgb Hct MCV MCHC RDW Plt Count MPV Neutrophils % Lymphocytes % Monocytes % Eosinophils % Band Neutrophils Metamyelocytes Smudge Cells Toxic Granulation Platelet Estimate Platelet Comment Polychromasia Hypochromic-Microcytic Poikilocytosis Anisocytosis Puncture Site Right radial ABG pH 7.16 L* D ABG pCO2 at Pt Temp 46.3 H D ABG pO2 at Pt Temp 84.6 ABG HCO3 15.9 L ABG O2 Sat (Measured) 95.1 ABG O2 Content 14.5 L ABG Base Excess -12.1 L* Heber Test Positive O2 Delivery Device Vent Oxygen Flow Rate 60 Vent Mode A/c Vent Rate 12 Mechanical Rate Yes PEEP 5.0 Pressure Support Vent 450 Sodium Potassium Chloride Carbon Dioxide Anion Gap BUN Creatinine Creat Clearance w eGFR POC Glucometer 150.56446 Random Glucose Lactic Acid 2.093 H* Calcium Phosphorus Magnesium Total Bilirubin AST ALT Alkaline Phosphatase Total Protein Albumin Urine Color Urine Appearance Urine pH Urine Protein Urine Glucose (UA) Urine Ketones Urine Blood Urine Nitrite Urine Bilirubin Urine Urobilinogen Ur Leukocyte Esterase Urine RBC Urine WBC Ur Epithelial Cells Granular Casts Urine Yeast Ur Random Sodium Urine Creatinine 07/18/16 07/18/16 07/18/16 10:10 10:15 10:50 WBC RBC Hgb Hct MCV MCHC RDW Plt Count MPV Neutrophils % Lymphocytes % Monocytes % Eosinophils % Band Neutrophils Metamyelocytes Smudge Cells Toxic Granulation Platelet Estimate Platelet Comment Polychromasia Hypochromic-Microcytic Poikilocytosis Anisocytosis Puncture Site Right radial ABG pH 7.17 L* ABG pCO2 at Pt Temp 42.9 ABG pO2 at Pt Temp 97.4 ABG HCO3 14.9 L* ABG O2 Sat (Measured) 96.7 ABG O2 Content 14.2 L ABG Base Excess -12.7 L* Heber Test Positive O2 Delivery Device Y Vent Oxygen Flow Rate 60 Vent Mode A/c Vent Rate 12 Mechanical Rate Yes PEEP 5.0 Pressure Support Vent 450 Sodium Potassium Chloride Carbon Dioxide Anion Gap BUN Creatinine Creat Clearance w eGFR POC Glucometer 56.45304 Random Glucose Lactic Acid Calcium Phosphorus Magnesium Total Bilirubin AST ALT Alkaline Phosphatase Total Protein Albumin Urine Color Urine Appearance Urine pH Urine Protein Urine Glucose (UA) Urine Ketones Urine Blood Urine Nitrite Urine Bilirubin Urine Urobilinogen Ur Leukocyte Esterase Urine RBC Urine WBC Ur Epithelial Cells Granular Casts Urine Yeast Ur Random Sodium Urine Creatinine 07/18/16 07/18/16 07/18/16 11:00 11:00 11:00 WBC RBC Hgb Hct MCV MCHC RDW Plt Count MPV Neutrophils % Lymphocytes % Monocytes % Eosinophils % Band Neutrophils Metamyelocytes Smudge Cells Toxic Granulation Platelet Estimate Platelet Comment Polychromasia Hypochromic-Microcytic Poikilocytosis Anisocytosis Puncture Site ABG pH ABG pCO2 at Pt Temp ABG pO2 at Pt Temp ABG HCO3 ABG O2 Sat (Measured) ABG O2 Content ABG Base Excess Heber Test O2 Delivery Device Oxygen Flow Rate Vent Mode Vent Rate Mechanical Rate PEEP Pressure Support Vent Sodium Potassium Chloride Carbon Dioxide Anion Gap BUN Creatinine Creat Clearance w eGFR POC Glucometer Random Glucose Lactic Acid Calcium Phosphorus Magnesium Total Bilirubin AST ALT Alkaline Phosphatase Total Protein Albumin Urine Color Yellow Urine Appearance Cloudy Urine pH 5.0 Urine Protein 2+ H Urine Glucose (UA) Negative Urine Ketones Negative Urine Blood 3+ H Urine Nitrite Negative Urine Bilirubin Negative Urine Urobilinogen Negative Ur Leukocyte Esterase Negative Urine RBC 2 Urine WBC 9 Ur Epithelial Cells Rare Granular Casts 58 Urine Yeast Moderate Ur Random Sodium 23 Urine Creatinine 56.3 07/18/16 07/18/16 11:30 14:50 WBC RBC Hgb Hct MCV MCHC RDW Plt Count MPV Neutrophils % Lymphocytes % Monocytes % Eosinophils % Band Neutrophils Metamyelocytes Smudge Cells Toxic Granulation Platelet Estimate Platelet Comment Polychromasia Hypochromic-Microcytic Poikilocytosis Anisocytosis Puncture Site Left radial Left radial ABG pH 7.21 L* 7.27 L ABG pCO2 at Pt Temp 36.7 30.6 L ABG pO2 at Pt Temp 91.5 93.3 ABG HCO3 14.3 L* 13.7 L* ABG O2 Sat (Measured) 96.7 97.5 ABG O2 Content 13.8 L 14.4 L ABG Base Excess -12.3 L* -11.8 L* Heber Test Positive Positive O2 Delivery Device Vent Vent Oxygen Flow Rate 60 60 Vent Mode A/c A/c Vent Rate 20 24 Mechanical Rate Yes Yes PEEP 5.0 5.0 Pressure Support Vent 450 450 Sodium Potassium Chloride Carbon Dioxide Anion Gap BUN Creatinine Creat Clearance w eGFR POC Glucometer Random Glucose Lactic Acid Calcium Phosphorus Magnesium Total Bilirubin AST ALT Alkaline Phosphatase Total Protein Albumin Urine Color Urine Appearance Urine pH Urine Protein Urine Glucose (UA) Urine Ketones Urine Blood Urine Nitrite Urine Bilirubin Urine Urobilinogen Ur Leukocyte Esterase Urine RBC Urine WBC Ur Epithelial Cells Granular Casts Urine Yeast Ur Random Sodium Urine Creatinine Active Medications Acetaminophen (Ofirmev Injection -) 1,000 mg IVPB Q6H PRN PRN Reason: FEVER OR PAIN Stop: 07/18/16 16:32 Last Admin: 07/18/16 13:00 Dose: 1,000 mg Chlorhexidine Gluconate (Hibiclens For Decolonization -) 1 applic TP HS [facility] Last Admin: 07/17/16 22:14 Dose: 1 applic Fentanyl (Sublimaze Injection -) 50 mcg IVPUSH [id number] PRN PRN Reason: PAIN Stop: 07/19/16 23:31 Piperacillin Sod/Tazobactam Sod (Zosyn 4.5gm Ivpb (Pre-Docked)) 100 mls @ 200 mls/hr IVPB Q8H-IV [facility] PRN Reason: Protocol Last Admin: 07/18/16 09:03 Dose: 200 mls/hr Fluconazole (Diflucan 200 Mg/Ns Premixed Ivpb -) 100 mls @ 100 mls/hr IVPB DAILY [facility] Last Admin: 07/18/16 09:04 Dose: 100 mls/hr Fentanyl 500 mcg/ Dextrose 100 mls @ 10 mls/hr IJ TITR AVERY PRN Reason: 50 MCG/HR Last Admin: 07/18/16 07:35 Dose: 10 mls/hr Midazolam HCl 100 mg/ Sodium (Chloride) 100 mls @ 5 mls/hr IVPB TITR AVERY; 5 MG/ HR PRN Reason: Protocol Last Admin: 07/17/16 22:17 Dose: 3 mls/hr Norepinephrine Bitartrate 8, (000 mcg/ Dextrose) 500 mls @ 18.75 mls/hr IV TITR AVERY; 5 MCG/MIN PRN Reason: Protocol Last Titration: 07/18/16 12:00 Dose: 25 mcg/min Lactated Ringer's (Lactated Ringers Solution) 1,000 mls @ 125 mls/hr IV ASDIR [facility] Last Admin: 07/18/16 01:13 Dose: Not Given Phenylephrine HCl 10,000 mcg/ (Dextrose) 500 mls @ 120 mls/hr IV TITR AVERY; 40 MCG/MIN PRN Reason: Protocol Last Admin: 07/18/16 00:58 Dose: Not Given Famotidine/Sodium Chloride (Pepcid 20 Mg Premixed Ivpb -) 50 mls @ 100 mls/hr IVPB BID [facility] Last Admin: 07/18/16 09:04 Dose: 100 mls/hr Dextrose/Sodium Chloride (D5-Ns -) 1,000 mls @ 125 mls/hr IV ASDIR [facility] Last Admin: 07/18/16 11:42 Dose: 125 mls/hr Insulin Aspart (Novolog Vial Sliding Scale -) 1 vial SQ ACHS [facility]ERY PRN Reason: Protocol Last Admin: 07/18/16 10:58 Dose: Not Given Morphine Sulfate (Morphine Injection -) 1 mg IVPUSH Q3H PRN PRN Reason: PAIN Mupirocin (Bactroban Ointment (For Decolonization) -) 1 applic NS BID [facility] Stop: 07/21/16 21:59 Last Admin: 07/18/16 09:08 Dose: 1 applic ASSESSMENT/PLAN: 65 yr old woman with HTN, dementia, NIDDM II admitted to ICU with septic shock secondary to perforated duodenal ulcer and peritonitis. Cardivascular Hypotensive with low CVP requring pressors - norepi 15mcg/min, phenylephrine 40mcg/min - continue d5-Lr @125ml//hr and bolus with NS - attempt to wean pressors, maintain goal MAP>65 s/p 1 unit prbc's, no indication for additional prbc's Pulmonary endotracheal tube placed / fio2 60%, ACV, sat 100% increases rr to 24 to compensate for metabolic acidosis Cxy with b/l pulmonary vascular infiltrates, increased in right lower lobe fissure in comparison to yesterday likely due to IVF repeat chest xray to monitor for ARDS, trend ABGs Gastrointestinal; s/p repair perforated duodenal ulcer - POD#1 - NGT in place draining yellow brown secretions, NPO - IV zosyn 4.5gm q8hr + diflucan 200mg Ivpb q24hr - day 3 - pepcid ivpb 20g daily - pain control post-op Renal - replete Mag and phosphorus - ZAHIRA improving - aggressive IVF - repeat BMP, Mag, phos - Williamson placed in ED pre-op 07/16; 24hr output: 900cc, net positive - consult: Dr. Tubbs; Dose all meds for Cr Cl less then 30 Infectious Disease - consulted - zosyn + diflucan - monitor for fevers, tylenol IVPB 1gm q6hr - bld cx neg from ED, pending peritoneal fluid and tissue cx from OR; polymicrobial - lactic acidosis from sepsis improving, continue to trend Endocrine NIDDM II - currently NPO - D5+ LR - BGM q6hrs w/ goal 140-180, low threshold to start insulin gtt, NISS Hematologic - monitor H/H post-op - leukopenia and thrombocytopenia likely due to sepsis - consult Dr. Church Neurologic - currently sedated; midazolam 5ml/hr Dementia wrist restraints Diet: NPO DVT- SCD's Visit type - Emergency Visit Emergency Visit: No - New Patient This patient is new to me today: No - Critical Care Critical Care patient: Yes Total Critical Care Time (in minutes): 40 Critical Care Statement: The care of this patient involved high complexity decision making to prevent further life threatening deterioration of the patient 's condition and/or to evalute & treat vital organ system(s) failure or risk of failure.
--- NOTE | 2016-07-18 17:48 | PN ---
Progress Note, Physician - Current Medication List Current Medications: Active Medications Chlorhexidine Gluconate (Hibiclens For Decolonization -) 1 applic TP HS [facility]ERY Last Admin: 07/17/16 22:14 Dose: 1 applic Fentanyl (Sublimaze Injection -) 50 mcg IVPUSH [id number] PRN PRN Reason: PAIN Stop: 07/19/16 23:31 Piperacillin Sod/Tazobactam Sod (Zosyn 4.5gm Ivpb (Pre-Docked)) 100 mls @ 200 mls/hr IVPB Q8H-IV AVERY PRN Reason: Protocol Last Admin: 07/18/16 17:03 Dose: 200 mls/hr Fluconazole (Diflucan 200 Mg/Ns Premixed Ivpb -) 100 mls @ 100 mls/hr IVPB DAILY [facility] Last Admin: 07/18/16 09:04 Dose: 100 mls/hr Fentanyl 500 mcg/ Dextrose 100 mls @ 10 mls/hr IJ TITR AVERY PRN Reason: 50 MCG/HR Last Admin: 07/18/16 17:04 Dose: 10 mls/hr Midazolam HCl 100 mg/ Sodium (Chloride) 100 mls @ 5 mls/hr IVPB TITR AVERY; 5 MG/ HR PRN Reason: Protocol Last Admin: 07/17/16 22:17 Dose: 3 mls/hr Norepinephrine Bitartrate 8, (000 mcg/ Dextrose) 500 mls @ 18.75 mls/hr IV TITR AVERY; 5 MCG/MIN PRN Reason: Protocol Last Admin: 07/18/16 16:52 Dose: 93.75 mls/hr Lactated Ringer's (Lactated Ringers Solution) 1,000 mls @ 125 mls/hr IV ASDIR [facility] Last Admin: 07/18/16 01:13 Dose: Not Given Phenylephrine HCl 10,000 mcg/ (Dextrose) 500 mls @ 120 mls/hr IV TITR AVERY; 40 MCG/MIN PRN Reason: Protocol Last Admin: 07/18/16 00:58 Dose: Not Given Famotidine/Sodium Chloride (Pepcid 20 Mg Premixed Ivpb -) 50 mls @ 100 mls/hr IVPB BID [facility] Last Admin: 07/18/16 09:04 Dose: 100 mls/hr Dextrose/Sodium Chloride (D5-Ns -) 1,000 mls @ 125 mls/hr IV ASDIR [facility] Last Admin: 07/18/16 16:33 Dose: 125 mls/hr Insulin Aspart (Novolog Vial Sliding Scale -) 1 vial SQ ACHS AVERY PRN Reason: Protocol Last Admin: 07/18/16 17:20 Dose: Not Given Morphine Sulfate (Morphine Injection -) 1 mg IVPUSH Q3H PRN PRN Reason: PAIN Mupirocin (Bactroban Ointment (For Decolonization) -) 1 applic NS BID [facility] Stop: 07/21/16 21:59 Last Admin: 07/18/16 09:08 Dose: 1 applic - Objective Vital Signs: Vital Signs Temperature 99.3 F 07/18/16 16:00 Pulse Rate 122 H 07/18/16 16:52 Respiratory Rate 24 07/18/16 16:00 Blood Pressure 95/56 07/18/16 16:52 O2 Sat by Pulse Oximetry (%) 97 07/18/16 10:14 Labs: CBC, BMP 07/18/16 05:15 07/18/16 05:15 INR, PTT INR 1.36 (0.82-1.09) H 07/16/16 17:00 Problem List - Problems (1) Abdominal pain Code(s): R10.9 - UNSPECIFIED ABDOMINAL PAIN Qualifiers: Qualified Code(s): R10.33 - Periumbilical pain (2) Perforated abdominal viscus Code(s): LZE0752 - (3) Perforated viscus Code(s): R19.8 - OTH SYMPTOMS AND SIGNS INVOLVING THE DGSTV SYS AND ABDOMEN (4) Hypertension Code(s): I10 - ESSENTIAL (PRIMARY) HYPERTENSION Qualifiers: Qualified Code(s): I10 - Essential (primary) hypertension Assessment/Plan Surgery: Patient remains intubated, and sedated. She is oliguric , with low CVP. She is on Levophed drip. and hypotensive , in septic shock. Abdomen mildly distended and abdominal wall is edematous. Continue antibiotics. Bilious drainage from NG tube, Minimal drainage from drainage tube. Lactic acid is improving, still in severe metabolic acidosis. Managed by ICU , critical care team.
[2016-07-18 21:02] LABS: ALLENS TEST POSITIVE; ART PUNCT SITE LEFT RADIAL; ARTERIAL BLD GAS O2 SATURATION 98.6 % (90-98.9)
[2016-07-18 21:03] LABS: ARTERIAL BLOOD GAS BASE EXCESS -11.5 meq/l (-2-2); ARTERIAL BLOOD GAS pH 7.29 (7.35-7.45); LPM/O2% 60%; MECH. VENT. YES; PT. ON O2? YES; TYPE OF O2 MECH VENT; VENT RATE 24; VT/PRESS 450
[2016-07-18 21:04] LABS: ARTERIAL BLOOD GAS HCO3 13.6 meq/L (22-26)
[2016-07-18] MEDS: CHLORHEXIDINE GLUCONATE 4% CLEANSER FOR DECOLONIZATION TP SCH (22:00)
[2016-07-18 22:30] LABS: ARTERIAL BLD GAS O2 SATURATION 97.3 % (90-98.9); ARTERIAL BLOOD GAS BASE EXCESS -11.4 meq/l (-2-2); ARTERIAL BLOOD GAS PO2 95.4 mmHg (80-100)
[2016-07-18 22:31] LABS: ALLENS TEST POSITIVE; ART PUNCT SITE RIGHT RADIAL; ARTERIAL BLOOD GAS HCO3 13.5 meq/L (22-26); LPM/O2% 60%; MECH. VENT. YES; PT. ON O2? YES; TYPE OF O2 MECH VENT; VENT RATE 26; VT/PRESS 450
[2016-07-19] MEDS: DEXTROSE 5%-NORMAL SALINE 1,000 ML IV SCH ×2 (00:03→12:34)
[2016-07-19] MEDS: FENTANYL INJECTION 500 MCG in DEXTROSE 5%-WATER - 90 ML IJ SCH ×2 (00:03→09:04)
[2016-07-19] MEDS: MIDAZOLAM 100 MG in SODIUM CHLORIDE 100 ML IVPB SCH ×2 (00:04→22:36)
[2016-07-19] MEDS: LACTATED RINGERS SOLUTION 1,000 ML IV SCH (00:05)
[2016-07-19] MEDS: PHENYLEPHRINE HCL 10,000 MCG in DEXTROSE 5%-WATER - 499 ML IV SCH (00:06)
[2016-07-19] MEDS: PIPERACILLIN/TAZOB 4.5 GM 100 ML IVPB SCH ×2 (01:18→09:39)
[2016-07-19] MEDS ORDERED: NOREPINEPHRINE BITARTRATE 4 MG/4 ML ML IV ONE ×3 (04:27→17:10)
[2016-07-19] MEDS: NOREPINEPHRINE BITARTRATE 8,000 MCG in DEXTROSE 5%-WATER - 492 ML IV SCH ×2 (04:45→10:47)
[2016-07-19 06:26] LABS: MCH 29.4 pg (25.7-33.7); MCHC 33.2 g/dl (32.0-36.0); MEAN CELL VOLUME 88.5 fl (80-96); RDW 14.4 % (11.6-15.6); WHITE BLOOD COUNT 5.2 K/mm3 (4.0-10.0)
[2016-07-19 06:49] LABS: PLATELET COUNT 33 K/MM3 (134-434)
[2016-07-19] MEDS: INSULIN SLIDING SCALE (NOVOLOG) 1 VIAL SQ SCH ×4 (07:00→22:00)
[2016-07-19 07:12] LABS: ALBUMIN 1.1 g/dl (3.4-5.0); MAGNESIUM 1.9 mg/dL (1.8-2.4)
[2016-07-19 07:17] LABS: BILIRUBIN,TOTAL 0.5 mg/dL (0.2-1.0); COCKROFT - GAULT 46.75; CREATININE 1.4 mg/dL (0.55-1.02); PHOSPHOROUS 3.2 mg/dL (2.5-4.9); TOT PROT 3.2 g/dl (6.4-8.2)
[2016-07-19 07:21] LABS: INR 1.38 (0.82-1.09); PROTHROMBIN TIME (PATIENT) 15.3 SEC (9.98-11.88)
[2016-07-19 07:23] LABS: ACTIVATED PTT 56.4 SECONDS (26.9-34.4)
[2016-07-19 07:37] LABS: CALCIUM 6.4 mg/dL (8.5-10.1)
[2016-07-19 07:44] LABS: ARTERIAL BLD GAS O2 SATURATION 97.2 % (90-98.9); ARTERIAL BLOOD GAS BASE EXCESS -11.9 meq/l (-2-2); ARTERIAL BLOOD GAS HCO3 13.4 meq/L (22-26); ARTERIAL BLOOD GAS PO2 95.5 mmHg (80-100)
[2016-07-19 07:57] LABS: ALLENS TEST POSITIVE; ART PUNCT SITE RIGHT RADIAL; LPM/O2% 60%; MECH. VENT. ESPRIT; PT. ON O2? YES; TYPE OF O2 MEC.VENT; VENT RATE 20; VT/PRESS 450
[2016-07-19 07:58] LABS: ARTERIAL BLOOD GAS pH 7.28 (7.35-7.45)
[2016-07-19] MEDS: FAMOTIDINE 20 MG/50 ML IVPB 50 ML IVPB SCH ×2 (09:00→22:00)
--- NOTE | 2016-07-19 09:07 | PN ---
Progress Note, Physician Chief Complaint: Sedated on respirator History of Present Illness: S/P exploratory lap Septic on respirator - Current Medication List Current Medications: Active Medications Chlorhexidine Gluconate (Hibiclens For Decolonization -) 1 applic TP HS [facility] Last Admin: 07/18/16 22:00 Dose: 1 applic Fentanyl (Sublimaze Injection -) 50 mcg IVPUSH [id number] PRN PRN Reason: PAIN Stop: 07/19/16 23:31 Piperacillin Sod/Tazobactam Sod (Zosyn 4.5gm Ivpb (Pre-Docked)) 100 mls @ 200 mls/hr IVPB Q8H-IV [facility]ERY PRN Reason: Protocol Last Admin: 07/19/16 01:18 Dose: 200 mls/hr Fluconazole (Diflucan 200 Mg/Ns Premixed Ivpb -) 100 mls @ 100 mls/hr IVPB DAILY [facility] Last Admin: 07/18/16 09:04 Dose: 100 mls/hr Fentanyl 500 mcg/ Dextrose 100 mls @ 10 mls/hr IJ TITR AVERY PRN Reason: 50 MCG/HR Last Admin: 07/19/16 00:03 Dose: 10 mls/hr Midazolam HCl 100 mg/ Sodium (Chloride) 100 mls @ 5 mls/hr IVPB TITR AVERY; 5 MG/ HR PRN Reason: Protocol Last Titration: 07/19/16 08:47 Dose: 4 mg/hr Norepinephrine Bitartrate 8, (000 mcg/ Dextrose) 500 mls @ 18.75 mls/hr IV TITR AVERY; 5 MCG/MIN PRN Reason: Protocol Last Titration: 07/19/16 07:30 Dose: 20 mcg/min Lactated Ringer's (Lactated Ringers Solution) 1,000 mls @ 125 mls/hr IV ASDIR [facility] Last Admin: 07/19/16 00:05 Dose: Not Given Phenylephrine HCl 10,000 mcg/ (Dextrose) 500 mls @ 120 mls/hr IV TITR AVERY; 40 MCG/MIN PRN Reason: Protocol Last Admin: 07/19/16 00:06 Dose: Not Given Famotidine/Sodium Chloride (Pepcid 20 Mg Premixed Ivpb -) 50 mls @ 100 mls/hr IVPB BID [facility] Last Admin: 07/18/16 22:00 Dose: 100 mls/hr Dextrose/Sodium Chloride (D5-Ns -) 1,000 mls @ 125 mls/hr IV ASDIR [facility] Last Admin: 07/19/16 00:03 Dose: 125 mls/hr Insulin Aspart (Novolog Vial Sliding Scale -) 1 vial SQ ACHS AVERY PRN Reason: Protocol Last Admin: 07/19/16 07:00 Dose: 4 units Morphine Sulfate (Morphine Injection -) 1 mg IVPUSH Q3H PRN PRN Reason: PAIN Mupirocin (Bactroban Ointment (For Decolonization) -) 1 applic NS BID [facility] Stop: 07/21/16 21:59 Last Admin: 07/18/16 22:00 Dose: 1 applic - Objective Vital Signs: Vital Signs Temperature 99.8 F H 07/19/16 06:00 Pulse Rate 125 H 07/19/16 08:00 Respiratory Rate 26 H 07/19/16 08:00 Blood Pressure 95/61 07/19/16 08:00 O2 Sat by Pulse Oximetry (%) 99 07/18/16 22:00 Constitutional: Yes: Obese (Sedated on respirator) HENT: Yes: WNL Neck: Yes: Supple Cardiovascular: Yes: Tachycardia Respiratory: Yes: Mechanically Ventilated Gastrointestinal: Yes: Hypoactive Bowel Sounds ...Rectal Exam: Yes: Deferred Genitourinary: Yes: Bacon Present Breast(s): Yes: WNL Musculoskeletal: Yes: Muscle Weakness Edema: LLE: 2+, RLE: 2+ Neurological: Yes: Unresponsive Labs: CBC, BMP 07/19/16 05:30 07/19/16 05:30 INR, PTT INR 1.38 (0.82-1.09) H 07/19/16 05:30 Fibrinogen 488.0 mg/dL (238-498) 07/19/16 05:30 Assessment/Plan continue same trt
[2016-07-19] MEDS ORDERED: PT OWN MED DRAWER 7, Y5N ONE (09:10)
--- NOTE | 2016-07-19 09:20 | PN ---
Progress Note (short form) - Note Progress Note: PULMONARY/CCM Pt seen and examined in the ICU. Remains intubated, sedated. Low grade fever overnight. Last Vital Signs Temp Pulse Resp BP Pulse Ox 99.8 F H 125 H 26 H 95/61 99 07/19/16 06:00 07/19/16 08:00 07/19/16 08:00 07/19/16 08:00 07/18/16 22:00 Intake & Output 07/16/16 07/17/16 07/18/16 07/19/16 23:59 23:59 23:59 23:59 Intake Total 9450 11347 64991.5 1724 Output Total 1925 3150 1650 1000 Balance 7525 7135 8398.5 724 Weight 152 lb 4.8 oz 156 lb 2 oz 169 lb 12.095 oz 178 lb 9.6 oz Gen: intubated, sedated, tachypneic Heart: tachycardic, regular Lung: scattered rhonchi Abd: soft, dressings dry/intact Ext: no edema CBC, BMP 07/19/16 05:30 07/19/16 05:30 CXR: pulmonary vascular congestion, bilateral effusions Active Medications Chlorhexidine Gluconate (Hibiclens For Decolonization -) 1 applic TP HS [facility] Last Admin: 07/18/16 22:00 Dose: 1 applic Fentanyl (Sublimaze Injection -) 50 mcg IVPUSH [id number] PRN PRN Reason: PAIN Stop: 07/19/16 23:31 Piperacillin Sod/Tazobactam Sod (Zosyn 4.5gm Ivpb (Pre-Docked)) 100 mls @ 200 mls/hr IVPB Q8H-IV AVERY PRN Reason: Protocol Last Admin: 07/19/16 01:18 Dose: 200 mls/hr Fluconazole (Diflucan 200 Mg/Ns Premixed Ivpb -) 100 mls @ 100 mls/hr IVPB DAILY [facility] Last Admin: 07/18/16 09:04 Dose: 100 mls/hr Fentanyl 500 mcg/ Dextrose 100 mls @ 10 mls/hr IJ TITR AVERY PRN Reason: 50 MCG/HR Last Titration: 07/19/16 09:04 Dose: 25 mcg/hr Midazolam HCl 100 mg/ Sodium (Chloride) 100 mls @ 5 mls/hr IVPB TITR AVERY; 5 MG/ HR PRN Reason: Protocol Last Titration: 07/19/16 09:04 Dose: 3 mg/hr Norepinephrine Bitartrate 8, (000 mcg/ Dextrose) 500 mls @ 18.75 mls/hr IV TITR AVERY; 5 MCG/MIN PRN Reason: Protocol Last Titration: 07/19/16 07:30 Dose: 20 mcg/min Lactated Ringer's (Lactated Ringers Solution) 1,000 mls @ 125 mls/hr IV ASDIR [facility] Last Admin: 07/19/16 00:05 Dose: Not Given Phenylephrine HCl 10,000 mcg/ (Dextrose) 500 mls @ 120 mls/hr IV TITR AVERY; 40 MCG/MIN PRN Reason: Protocol Last Admin: 07/19/16 00:06 Dose: Not Given Famotidine/Sodium Chloride (Pepcid 20 Mg Premixed Ivpb -) 50 mls @ 100 mls/hr IVPB BID [facility] Last Admin: 07/18/16 22:00 Dose: 100 mls/hr Dextrose/Sodium Chloride (D5-Ns -) 1,000 mls @ 125 mls/hr IV ASDIR [facility] Last Admin: 07/19/16 00:03 Dose: 125 mls/hr Insulin Aspart (Novolog Vial Sliding Scale -) 1 vial SQ ACHS [facility]ERY PRN Reason: Protocol Last Admin: 07/19/16 07:00 Dose: 4 units Morphine Sulfate (Morphine Injection -) 1 mg IVPUSH Q3H PRN PRN Reason: PAIN Mupirocin (Bactroban Ointment (For Decolonization) -) 1 applic NS BID [facility] Stop: 07/21/16 21:59 Last Admin: 07/18/16 22:00 Dose: 1 applic A/P Perforated Duodenal Ulcer Peritonitis s/p ex-lap/omental patch repair 07/16 Acute Respiratory Failure Septic Shock Acute Kidney Injury Lactic Acidosis Leukopenia Thrombocytopenia DM - continue antibiotics - f/u OR cultures - IVF to keep CVP 8-12 - titrate pressors to maintain MAP >65 - monitor urine output, creatinine - will need lasix when hemodynamically stable - trend lactate - taper Fio2 to keep Spo2 >90% - monitor ABG - transfuse platelets if <20K - DVT/GI prophylaxis - continue ICU monitoring critical care time spent in reviewing chart, evaluating patient and formulating plan 40 min
[2016-07-19] MEDS ORDERED: SODIUM CHLORIDE 1,000 ML IV STA (10:28)
--- NOTE | 2016-07-19 10:34 | PN ---
Progress Note (short form) - Note Progress Note: Renal Follow up for ZAHIRA/Metabolic acidosis Pt seen and examined in the ICU sedated on Vent FiO2 is 40% on Levophed 25mcg and D5NS at 125cc per hour CVP is 4-5 remains non-oliguric Vital Signs Temperature 99.8 F H 07/19/16 06:00 Pulse Rate 125 H 07/19/16 08:00 Respiratory Rate 27 H 07/19/16 09:15 Blood Pressure 95/61 07/19/16 08:00 O2 Sat by Pulse Oximetry (%) 99 07/18/16 22:00 Intake & Output 07/16/16 07/17/16 07/18/16 07/19/16 23:59 23:59 23:59 23:59 Intake Total 9450 58098 68449.5 1724 Output Total 1925 3150 1650 1000 Balance 7525 7135 8398.5 724 Weight 152 lb 4.8 oz 156 lb 2 oz 169 lb 12.095 oz 178 lb 9.6 oz Gen: Sedated on the Vent. HEENT: NC/AT, No JVD, ET Tube in place CVS: RRR, No M/R Lungs: CTA (anterior exam) Abd: Abd pain in palce, sutures appear clean. + distension Ext: Trace LE edema, no clubbing or cyanosis : No bladder distension CBC, BMP 07/19/16 05:30 07/19/16 05:30 Current Medications Chlorhexidine Gluconate (Hibiclens For Decolonization -) 1 applic TP HS AVERY Last Admin: 07/18/16 22:00 Dose: 1 applic Fentanyl (Sublimaze Injection -) 50 mcg IVPUSH [id number] PRN PRN Reason: PAIN Stop: 07/19/16 23:31 Piperacillin Sod/Tazobactam Sod (Zosyn 4.5gm Ivpb (Pre-Docked)) 100 mls @ 200 mls/hr IVPB Q8H-IV AVERY PRN Reason: Protocol Last Admin: 07/19/16 09:39 Dose: 200 mls/hr Fluconazole (Diflucan 200 Mg/Ns Premixed Ivpb -) 100 mls @ 100 mls/hr IVPB DAILY [facility]ERY Last Admin: 07/18/16 09:04 Dose: 100 mls/hr Fentanyl 500 mcg/ Dextrose 100 mls @ 10 mls/hr IJ TITR AVERY PRN Reason: 50 MCG/HR Last Titration: 07/19/16 09:04 Dose: 25 mcg/hr Midazolam HCl 100 mg/ Sodium (Chloride) 100 mls @ 5 mls/hr IVPB TITR AVERY; 5 MG/ HR PRN Reason: Protocol Last Titration: 07/19/16 09:04 Dose: 3 mg/hr Norepinephrine Bitartrate 8, (000 mcg/ Dextrose) 500 mls @ 18.75 mls/hr IV TITR AVERY; 5 MCG/MIN PRN Reason: Protocol Last Titration: 07/19/16 07:30 Dose: 20 mcg/min Lactated Ringer's (Lactated Ringers Solution) 1,000 mls @ 125 mls/hr IV ASDIR AVERY Last Admin: 07/19/16 00:05 Dose: Not Given Phenylephrine HCl 10,000 mcg/ (Dextrose) 500 mls @ 120 mls/hr IV TITR AVERY; 40 MCG/MIN PRN Reason: Protocol Last Admin: 07/19/16 00:06 Dose: Not Given Famotidine/Sodium Chloride (Pepcid 20 Mg Premixed Ivpb -) 50 mls @ 100 mls/hr IVPB BID AVERY Last Admin: 07/19/16 09:00 Dose: 100 mls/hr Dextrose/Sodium Chloride (D5-Ns -) 1,000 mls @ 125 mls/hr IV ASDIR AVERY Last Admin: 07/19/16 00:03 Dose: 125 mls/hr Sodium Chloride (Normal Saline -) 1,000 mls @ 1,000 mls/hr IV ASDIR STA Stop: 07/19/16 11:27 Insulin Aspart (Novolog Vial Sliding Scale -) 1 vial SQ ACHS AVERY PRN Reason: Protocol Last Admin: 07/19/16 07:00 Dose: 4 units Morphine Sulfate (Morphine Injection -) 1 mg IVPUSH Q3H PRN PRN Reason: PAIN Mupirocin (Bactroban Ointment (For Decolonization) -) 1 applic NS BID AVERY Stop: 07/21/16 21:59 Last Admin: 07/18/16 22:00 Dose: 1 applic A/P 65 year old woman with PMhx of hypertension, hypercholesterolemia, diabetes mellitus who presented with Abd pain and found to have perforated Abd viscus s/ p emergent Sx now with Septic Shock, ZAHIRA and Metabolic Acidosis. #Anion gap Metabolic acidosis secondary to lactic acidosis and renal failure Corrected Anion gap is 21.25 pt with appropriate respiratory compensation at this time no indication for bicarb as ph > 7.1 and bicarb > 10 will need to correct hypoperfusion by improving intravascular volume trend lactic acid levels and renal function #Non-oliguric Acute Renal failure now improving FeNa is 0.35% indicating preserved tubular function pt remains non-oliguric will bolous IVF today in addition to standing IVF to improve renal perfusion Trend BUN/Cr #Sepsis/Perforated Abd Viscus ICU Care Surgical Follow up Vent support #Leukopenia/Thrombocytopenia likely from sepsis Leukopenia is improving Plt counts dropped today repeat CBC this afternoon #Pleural effusions in setting of Low albumin and Sepsis continue vent support IVF continued for management of shock Thank you Cyril Tubbs DO
[2016-07-19] MEDS: FLUCONAZOLE 200 MG/NS 100 ML IVPB SCH (11:27)
[2016-07-19] MEDS: MUPIROCIN 2% TOPICAL OINTMENT FOR DECOLONIZATION NS SCH ×2 (11:27→22:00)
[2016-07-19] MEDS ORDERED: DEXTROSE 50%-WATER - 25 GM/50 ML VIAL ONE ×2 (11:54→12:13)
[2016-07-19] MEDS ORDERED: DEXTROSE 50%-WATER - 25 GM/50 ML VIAL IVPUSH ONE ×4 (11:57→14:45)
[2016-07-19] MEDS ORDERED: DEXTROSE 10%-WATER - 500 ML IV SCH (12:12)
[2016-07-19] MEDS ORDERED: GlUCAGON HUMAN RECOMBINANT 1 MG/VIAL IVPUSH ONE (12:48)
[2016-07-19] MEDS ORDERED: GlUCAGON HUMAN RECOMBINANT 1 MG/VIAL ONE ×2 (12:59→13:41)
[2016-07-19] MEDS ORDERED: GLUCAGON 1 MG KIT IVPUSH ONE (13:40)
[2016-07-19] MEDS ORDERED: DEXTROSE 50%-WATER - 25 GM/50 ML VIAL IVPUSH PRN (13:41)
--- NOTE | 2016-07-19 13:43 | PN ---
Progress Note, Physician - Current Medication List Current Medications: Active Medications Chlorhexidine Gluconate (Hibiclens For Decolonization -) 1 applic TP HS AVERY Last Admin: 07/18/16 22:00 Dose: 1 applic Fentanyl (Sublimaze Injection -) 50 mcg IVPUSH [id number] PRN PRN Reason: PAIN Stop: 07/19/16 23:31 Piperacillin Sod/Tazobactam Sod (Zosyn 4.5gm Ivpb (Pre-Docked)) 100 mls @ 200 mls/hr IVPB Q8H-IV [facility]ERY PRN Reason: Protocol Last Admin: 07/19/16 09:39 Dose: 200 mls/hr Fluconazole (Diflucan 200 Mg/Ns Premixed Ivpb -) 100 mls @ 100 mls/hr IVPB DAILY [facility] Last Admin: 07/19/16 11:27 Dose: 100 mls/hr Fentanyl 500 mcg/ Dextrose 100 mls @ 10 mls/hr IJ TITR AVERY PRN Reason: 50 MCG/HR Last Titration: 07/19/16 10:00 Dose: 30 mcg/hr Midazolam HCl 100 mg/ Sodium (Chloride) 100 mls @ 5 mls/hr IVPB TITR AVERY; 5 MG/ HR PRN Reason: Protocol Last Titration: 07/19/16 09:04 Dose: 3 mg/hr Norepinephrine Bitartrate 8, (000 mcg/ Dextrose) 500 mls @ 18.75 mls/hr IV TITR AVERY; 5 MCG/MIN PRN Reason: Protocol Last Admin: 07/19/16 10:47 Dose: 93.75 mls/hr Lactated Ringer's (Lactated Ringers Solution) 1,000 mls @ 125 mls/hr IV ASDIR AVERY Last Admin: 07/19/16 00:05 Dose: Not Given Phenylephrine HCl 10,000 mcg/ (Dextrose) 500 mls @ 120 mls/hr IV TITR AVERY; 40 MCG/MIN PRN Reason: Protocol Last Admin: 07/19/16 00:06 Dose: Not Given Famotidine/Sodium Chloride (Pepcid 20 Mg Premixed Ivpb -) 50 mls @ 100 mls/hr IVPB BID AVERY Last Admin: 07/19/16 09:00 Dose: 100 mls/hr Dextrose/Sodium Chloride (D5-Ns -) 1,000 mls @ 125 mls/hr IV ASDIR AVERY Last Admin: 07/19/16 12:34 Dose: Not Given Dextrose (D10w (500 Ml Bag) -) 500 mls @ 50 mls/hr IV ASDIR COUNTS INCLUDE 234 BEDS AT THE [facility] Last Admin: 07/19/16 12:33 Dose: 50 mls/hr Insulin Aspart (Novolog Vial Sliding Scale -) 1 vial SQ ACHS AVERY PRN Reason: Protocol Last Admin: 07/19/16 12:34 Dose: Not Given Morphine Sulfate (Morphine Injection -) 1 mg IVPUSH Q3H PRN PRN Reason: PAIN Mupirocin (Bactroban Ointment (For Decolonization) -) 1 applic NS BID [facility]VE[facility] Stop: 07/21/16 21:59 Last Admin: 07/19/16 11:27 Dose: 1 applic - Objective Vital Signs: Vital Signs Temperature 100.3 F H 07/19/16 10:10 Pulse Rate 126 H 07/19/16 12:00 Respiratory Rate 27 H 07/19/16 12:00 Blood Pressure 102/66 07/19/16 12:00 O2 Sat by Pulse Oximetry (%) 97 07/19/16 10:00 Labs: CBC, BMP 07/19/16 05:30 07/19/16 05:30 INR, PTT INR 1.38 (0.82-1.09) H 07/19/16 05:30 Fibrinogen 488.0 mg/dL (238-498) 07/19/16 05:30 Problem List - Problems (1) Abdominal pain Code(s): R10.9 - UNSPECIFIED ABDOMINAL PAIN Qualifiers: Abdominal location: periumbilical Qualified Code(s): R10.33 - Periumbilical pain (2) Perforated abdominal viscus Code(s): [id number] - (3) Perforated viscus Code(s): R19.8 - OTH SYMPTOMS AND SIGNS INVOLVING THE DGSTV SYS AND ABDOMEN (4) Hypertension Code(s): I10 - ESSENTIAL (PRIMARY) HYPERTENSION Qualifiers: Hypertension type: essential hypertension Qualified Code(s): I10 - Essential (primary) hypertension Assessment/Plan Surgery: Patient remaind septic, with metabolic acidosis, hypotensice. She is still on 25 microgram of levophed. Lactic acidosis, thrombocytopenia. Abdominal wound is clean , with no drainage, Drain not draining minimally. Continue resuscitation , antibiotics, correct metabolic acidosis. I have informed the of her grave condition.
[2016-07-19 14:06] LABS: MCH 29.5 pg (25.7-33.7); MEAN CELL VOLUME 89.3 fl (80-96); MEAN PLT VOLUME 8.1 fl (7.5-11.1); RDW 14.7 % (11.6-15.6); WHITE BLOOD COUNT 4.9 K/mm3 (4.0-10.0)
[2016-07-19 14:09] LABS: PLATELET COUNT 18 K/MM3 (134-434)
[2016-07-19] MEDS: SODIUM BICARBONATE 8.4% - 150 MEQ in DEXTROSE 5%-WATER - 1,000 ML IV SCH (14:19)
[2016-07-19] MEDS ORDERED: VASOPRESSIN 20 UNITS/ML VIAL IV ONE ×2 (14:19)
[2016-07-19 14:31] LABS: COCKROFT - GAULT 46.5375; CREATININE 1.5 mg/dL (0.55-1.02)
[2016-07-19 14:34] LABS: CALCIUM 6.2 mg/dL (8.5-10.1)
[2016-07-19] MEDS: VASOPRESSIN 50 UNITS in SODIUM CHLORIDE 97.5 ML IVPB SCH (14:36)
[2016-07-19] MEDS: ACETAMINOPHEN 1000 MG/100 ML VIAL (NON FORMULARY) IVPB PRN (15:30)
[2016-07-19 16:09] LABS: INR 1.46 (0.82-1.09); PROTHROMBIN TIME (PATIENT) 16.2 SEC (9.98-11.88)
--- NOTE | 2016-07-19 16:25 | PN ---
Progress Note (short form) - Note Progress Note: Progress Note: Patient seen in follow up. No events overnight. Remains intubated, pressor dependant. No reports of bleeding as per nurse. Meds reviewed. Current Medications Generic Name Dose Route Start Last Admin Trade Name Freq PRN Reason Stop Dose Admin Acetaminophen 1,000 mg 07/19/16 15:43 07/19/16 15:30 Ofirmev Injection - IVPB 1,000 mg Q6H PRN Administration FEVER Chlorhexidine Gluconate 1 applic 07/16/16 22:00 07/18/16 22:00 Hibiclens For Decolonization - TP 1 applic HS AVERY Administration Fentanyl 50 mcg 07/16/16 23:30 Sublimaze Injection - IVPUSH 07/19/16 23:31 [id number] PRN PAIN Piperacillin Sod/Tazobactam Sod 100 mls @ 200 mls/hr 07/17/16 10:00 07/19/16 09 :39 Zosyn 4.5gm Ivpb (Pre-Docked) IVPB 200 mls/hr Q8H-IV AVERY Administration Protocol Fluconazole 100 mls @ 100 mls/hr 07/17/16 10:00 07/19/16 11:27 Diflucan 200 Mg/Ns Premixed Ivpb - IVPB 100 mls/hr DAILY AVERY Administration Fentanyl 500 mcg/ Dextrose 100 mls @ 10 mls/hr 07/16/16 22:15 07/19/16 10:00 IJ 30 mcg/hr TITR AVERY Titration 50 MCG/HR Midazolam HCl 100 mg/ Sodium 100 mls @ 5 mls/hr 07/16/16 22:15 07/19/16 09:04 Chloride IVPB 3 mg/hr TITR AVERY Titration Protocol 5 MG/HR Norepinephrine Bitartrate 8, 500 mls @ 18.75 mls/hr 07/16/16 23:15 07/19/16 16: 14 000 mcg/ Dextrose IV 12.5 mcg/min TITR AVERY Titration Protocol 5 MCG/MIN Famotidine/Sodium Chloride 50 mls @ 100 mls/hr 07/17/16 10:00 07/19/16 09:00 Pepcid 20 Mg Premixed Ivpb - IVPB 100 mls/hr BID AVERY Administration Dextrose 500 mls @ 50 mls/hr 07/19/16 12:12 07/19/16 12:33 D10w (500 Ml Bag) - IV 50 mls/hr ASDIR AVERY Administration Sodium Bicarbonate 150 meq/ 1,150 mls @ 75 mls/hr 07/19/16 14:30 07/19/16 14:19 Dextrose IV 75 mls/hr Q15H AVERY Administration Vasopressin 50 units/ Sodium 100 mls @ 6 mls/hr 07/19/16 14:16 07/19/16 16:01 Chloride IVPB 4 units/hr ASDIR AVERY Titration Protocol 3 UNITS/HR Insulin Aspart 1 vial 07/17/16 16:30 07/19/16 12:34 Novolog Vial Sliding Scale - SQ Not Given ACHS AVERY Protocol Morphine Sulfate 1 mg 07/16/16 20:37 Morphine Injection - IVPUSH Q3H PRN PAIN Mupirocin 1 applic 07/16/16 22:00 07/19/16 11:27 Bactroban Ointment (For Decolonization) - NS 07/21/16 21:59 1 applic BID AVERY Administration On examination: Last Vital Signs Temp Pulse Resp BP Pulse Ox 100.5 F H 115 H 26 H 80/58 97 07/19/16 14:00 07/19/16 16:01 07/19/16 15:00 07/19/16 16:01 07/19/16 10:00 General: Intubated, sedated. Oropharyngeal: No signs mucosal hemorrhage. Extremities: Perfuesing poorly, cold extremities. Skin: No petechiae. Neuro: Sedated. Labs reviewed: CBC, BMP 07/19/16 13:30 07/19/16 13:30 Assessment: Sepsis with SIRS, severe. Thrombocytopenia likely secondary to her systemic condition. May be component of drug-induced thrombocytopenia, but would not change her regimen. Continue supportive transfusion support - prophylactically maintain platelet count > 20K (while febrile). Unit MDPs ordered today. Prior leukopenia resolved now. Monitor coagulation parameters - can consider cryo if fibrinogen <100. Prognosis guarded.
--- NOTE | 2016-07-19 16:35 | PN ---
Progress Note, Physician History of Present Illness: patient continues to spike fever inspite of being on zosyn lactic acid still high intubated ng tube draiang a lot drainage tube not much good urine ouput - Current Medication List Current Medications: Active Medications Acetaminophen (Ofirmev Injection -) 1,000 mg IVPB Q6H PRN PRN Reason: FEVER Last Admin: 07/19/16 15:30 Dose: 1,000 mg Chlorhexidine Gluconate (Hibiclens For Decolonization -) 1 applic TP HS AVERY Last Admin: 07/18/16 22:00 Dose: 1 applic Fentanyl (Sublimaze Injection -) 50 mcg IVPUSH [id number] PRN PRN Reason: PAIN Stop: 07/19/16 23:31 Fluconazole (Diflucan 200 Mg/Ns Premixed Ivpb -) 100 mls @ 100 mls/hr IVPB DAILY [facility] Last Admin: 07/19/16 11:27 Dose: 100 mls/hr Fentanyl 500 mcg/ Dextrose 100 mls @ 10 mls/hr IJ TITR AVERY PRN Reason: 50 MCG/HR Last Titration: 07/19/16 10:00 Dose: 30 mcg/hr Midazolam HCl 100 mg/ Sodium (Chloride) 100 mls @ 5 mls/hr IVPB TITR AVERY; 5 MG/ HR PRN Reason: Protocol Last Titration: 07/19/16 09:04 Dose: 3 mg/hr Norepinephrine Bitartrate 8, (000 mcg/ Dextrose) 500 mls @ 18.75 mls/hr IV TITR AVERY; 5 MCG/MIN PRN Reason: Protocol Last Titration: 07/19/16 16:14 Dose: 12.5 mcg/min Famotidine/Sodium Chloride (Pepcid 20 Mg Premixed Ivpb -) 50 mls @ 100 mls/hr IVPB BID AVERY Last Admin: 07/19/16 09:00 Dose: 100 mls/hr Dextrose (D10w (500 Ml Bag) -) 500 mls @ 50 mls/hr IV ASDIR AVERY Last Admin: 07/19/16 12:33 Dose: 50 mls/hr Sodium Bicarbonate 150 meq/ (Dextrose) 1,150 mls @ 75 mls/hr IV Q15H AVERY Last Admin: 07/19/16 14:19 Dose: 75 mls/hr Vasopressin 50 units/ Sodium (Chloride) 100 mls @ 6 mls/hr IVPB ASDIR AVERY; 3 UNITS/HR PRN Reason: Protocol Last Titration: 07/19/16 16:01 Dose: 4 units/hr Insulin Aspart (Novolog Vial Sliding Scale -) 1 vial SQ ACHS AVERY PRN Reason: Protocol Last Admin: 07/19/16 12:34 Dose: Not Given Morphine Sulfate (Morphine Injection -) 1 mg IVPUSH Q3H PRN PRN Reason: PAIN Mupirocin (Bactroban Ointment (For Decolonization) -) 1 applic NS BID AVERY Stop: 07/21/16 21:59 Last Admin: 07/19/16 11:27 Dose: 1 applic - Objective Vital Signs: Vital Signs Temperature 100.5 F H 07/19/16 14:00 Pulse Rate 115 H 07/19/16 16:01 Respiratory Rate 26 H 07/19/16 15:00 Blood Pressure 80/58 07/19/16 16:01 O2 Sat by Pulse Oximetry (%) 97 07/19/16 10:00 Constitutional: Yes: Other Neck: Yes: Supple Cardiovascular: Yes: Tachycardia Respiratory: Yes: Intubated, Mechanically Ventilated Gastrointestinal: Yes: Other (absent bowel sounds ng in place draiange in place) Wound/Incision: Yes: Clean/Dry, Other Neurological: Yes: Other Psychiatric: Yes: Other Labs: CBC, BMP 07/19/16 13:30 07/19/16 13:30 INR, PTT INR 1.46 (0.82-1.09) H 07/19/16 14:30 Fibrinogen 429.0 mg/dL (238-498) 07/19/16 14:30 Assessment/Plan Problem List - Problems (1) Abdominal pain Code(s): R10.9 - UNSPECIFIED ABDOMINAL PAIN Qualifiers: Qualified Code(s): R10.33 - Periumbilical pain (2) Perforated abdominal viscus Code(s): [id number] - (3) Perforated viscus Code(s): R19.8 - OTH SYMPTOMS AND SIGNS INVOLVING THE DGSTV SYS AND ABDOMEN (4) Hypertension Code(s): I10 - ESSENTIAL (PRIMARY) HYPERTENSION Qualifiers: Qualified Code(s): I10 - Essential (primary) hypertension lactic acidosis fevers plan continue current mgmt follow ph changed abx will send blood cx one from periphery one from central line rest as per surgery/icu cc time 40 min
[2016-07-19 17:59] LABS: HYPOCHROMIA 1+; PLATELET COMMENT2 NO CLOTTING DETECTED; PLATELET ESTIMATE MARKEDLY DECREASED (NORMAL); POLYCHROMASIA 1+
[2016-07-19 18:00] LABS: ANISOCYTOSIS 1+
[2016-07-19] MEDS: MEROPENEM 1 GM in DEXTROSE 5%-WATER - 100 ML IVPB SCH (18:41)
[2016-07-19 21:23] LABS: MCH 29.4 pg (25.7-33.7); MEAN CELL VOLUME 89.1 fl (80-96); MEAN PLT VOLUME 8.7 fl (7.5-11.1); PLATELET COUNT 67 K/MM3 (134-434); RDW 14.5 % (11.6-15.6)
[2016-07-19] MEDS: CHLORHEXIDINE GLUCONATE 4% CLEANSER FOR DECOLONIZATION TP SCH (22:00)
[2016-07-20] MEDS: MEROPENEM 1 GM in DEXTROSE 5%-WATER - 100 ML IVPB SCH ×3 (02:09→17:21)
[2016-07-20] MEDS: VASOPRESSIN 50 UNITS in SODIUM CHLORIDE 97.5 ML IVPB SCH ×2 (02:10→14:29)
[2016-07-20] MEDS ORDERED: SODIUM BICARBONATE 8.4% 50 MEQ/50 ML VIAL ONE ×3 (02:17→18:41)
[2016-07-20] MEDS: SODIUM BICARBONATE 8.4% - 150 MEQ in DEXTROSE 5%-WATER - 1,000 ML IV SCH ×2 (05:30→21:48)
[2016-07-20] MEDS: INSULIN SLIDING SCALE (NOVOLOG) 1 VIAL SQ SCH ×4 (06:01→21:50)
[2016-07-20 06:07] LABS: MCH 29.3 pg (25.7-33.7); MCHC 33.1 g/dl (32.0-36.0); MEAN CELL VOLUME 88.3 fl (80-96); MEAN PLT VOLUME 9.1 fl (7.5-11.1); PLATELET COUNT 42 K/MM3 (134-434); RDW 14.5 % (11.6-15.6); WHITE BLOOD COUNT 8.2 K/mm3 (4.0-10.0)
[2016-07-20 06:31] LABS: INR 1.46 (0.82-1.09); PROTHROMBIN TIME (PATIENT) 16.2 SEC (9.98-11.88)
[2016-07-20 06:33] LABS: ALBUMIN 1.1 g/dl (3.4-5.0); MAGNESIUM 1.5 mg/dL (1.8-2.4); PHOSPHOROUS 3.3 mg/dL (2.5-4.9)
[2016-07-20 06:36] LABS: BILIRUBIN,TOTAL 0.3 mg/dL (0.2-1.0); COCKROFT - GAULT 46.5375; CREATININE 1.5 mg/dL (0.55-1.02); TOT PROT 3.4 g/dl (6.4-8.2)
[2016-07-20 06:52] LABS: CALCIUM 6.3 mg/dL (8.5-10.1)
[2016-07-20] MEDS: NOREPINEPHRINE BITARTRATE 8,000 MCG in DEXTROSE 5%-WATER - 492 ML IV SCH ×2 (06:58→08:34)
[2016-07-20] MEDS ORDERED: MAGNESIUM SULF 50% (8.12 MEQ/2 ML-1 GM VIAL) IVPB ONE (07:09)
--- NOTE | 2016-07-20 07:18 | PN ---
Progress Note (short form) - Note Progress Note: Renal Follow up for ZAHIRA/Metabolic acidosis Pt seen and examined in the ICU sedated on the Vent CVP is 14 on Levophed and Vasopressin good urine output febrile overnight Vital Signs Temperature 98.4 F 07/20/16 02:00 Pulse Rate 110 H 07/20/16 06:58 Respiratory Rate 26 H 07/20/16 06:54 Blood Pressure 102/50 07/20/16 06:58 O2 Sat by Pulse Oximetry (%) 100 07/19/16 22:00 Intake & Output 07/17/16 07/18/16 07/19/16 07/20/16 23:59 23:59 23:59 23:59 Intake Total 34029 54123.5 5531 Output Total 3150 1650 1960 Balance 7135 8398.5 3571 Weight 156 lb 2 oz 169 lb 12.095 oz 178 lb 9.6 oz Gen: Sedated on the Vent. HEENT: NC/AT, No JVD, ET Tube in place CVS: RRR, No M/R Lungs: CTA (anterior exam) Abd: Abd pain in palce, sutures appear clean. + distension Ext: Trace LE edema, no clubbing or cyanosis : No bladder distension CBC, BMP 07/20/16 05:30 07/20/16 05:30 Laboratory Tests 07/19/16 07/19/16 07/20/16 05:30 05:30 05:30 Lactic Acid 3.349 H* Calcium 6.4 L* 6.3 L* Phosphorus 3.2 D 3.3 Magnesium 1.9 1.5 L D Albumin 1.1 L D 1.1 L 07/20/16 05:45 Lactic Acid 2.291 H* Calcium Phosphorus Magnesium Albumin Current Medications Acetaminophen (Ofirmev Injection -) 1,000 mg IVPB Q6H PRN PRN Reason: FEVER Last Admin: 07/19/16 15:30 Dose: 1,000 mg Chlorhexidine Gluconate (Hibiclens For Decolonization -) 1 applic TP HS AVERY Last Admin: 07/19/16 22:00 Dose: 1 applic Fluconazole (Diflucan 200 Mg/Ns Premixed Ivpb -) 100 mls @ 100 mls/hr IVPB DAILY AVERY Last Admin: 07/19/16 11:27 Dose: 100 mls/hr Fentanyl 500 mcg/ Dextrose 100 mls @ 10 mls/hr IJ TITR AVERY PRN Reason: 50 MCG/HR Last Titration: 07/19/16 10:00 Dose: 30 mcg/hr Midazolam HCl 100 mg/ Sodium (Chloride) 100 mls @ 5 mls/hr IVPB TITR AVERY; 5 MG/ HR PRN Reason: Protocol Last Admin: 07/19/16 22:36 Dose: 3 mls/hr Norepinephrine Bitartrate 8, (000 mcg/ Dextrose) 500 mls @ 18.75 mls/hr IV TITR AVERY; 5 MCG/MIN PRN Reason: Protocol Last Admin: 07/20/16 06:58 Dose: 30 mls/hr Famotidine/Sodium Chloride (Pepcid 20 Mg Premixed Ivpb -) 50 mls @ 100 mls/hr IVPB BID [facility] Last Admin: 07/19/16 22:00 Dose: 100 mls/hr Sodium Bicarbonate 150 meq/ (Dextrose) 1,150 mls @ 75 mls/hr IV Q15H [facility] Last Admin: 07/20/16 05:30 Dose: 75 mls/hr Vasopressin 50 units/ Sodium (Chloride) 100 mls @ 6 mls/hr IVPB ASDIR AVERY; 3 UNITS/HR PRN Reason: Protocol Last Admin: 07/20/16 02:10 Dose: 8 mls/hr Meropenem 1 gm/ Dextrose 100 mls @ 100 mls/hr IVPB Q8H-IV AVERY PRN Reason: Protocol Last Admin: 07/20/16 02:09 Dose: 100 mls/hr Potassium Chloride (Potassium Chloride 10 Meq Premix Ivpb -) 100 mls @ 100 mls/ hr IVPB Q60M [facility] Stop: 07/20/16 10:14 Insulin Aspart (Novolog Vial Sliding Scale -) 1 vial SQ ACHS AVERY PRN Reason: Protocol Last Admin: 07/20/16 06:01 Dose: Not Given Mupirocin (Bactroban Ointment (For Decolonization) -) 1 applic NS BID [facility] Stop: 07/21/16 21:59 Last Admin: 07/19/16 22:00 Dose: 1 applic A/P 65 year old woman with PMhx of hypertension, hypercholesterolemia, diabetes mellitus who presented with Abd pain and found to have perforated Abd viscus s/ p emergent Sx now with Septic Shock, ZAHIRA and Metabolic Acidosis. #Anion gap Metabolic acidosis secondary to lactic acidosis and renal failure ABG this am is pending serum bicarb increased to 18 lactic acid is improved started on bicarb gtt yesterday afternoon, continue for now Goal Ph > 7.2 and bicarb > 15 with gtt keep IVF to profuse and decrease lactic acidosis Trend lactic acidosis daily keep MAP >65 keep CVP > 10-12 #Non-oliguric Acute Renal failure now improving FeNa is 0.35% indicating preserved tubular function continue IVF Trend BUN/Cr avoid nephrotoxins #Sepsis/Perforated Abd Viscus ICU Care Surgical Follow up Vent support #Leukopenia/Thrombocytopenia s/p plt transfusion yesterday #Pleural effusions in setting of Low albumin and Sepsis continue vent support IVF continued for management of shock Thank you Cyril Tubbs DO
[2016-07-20] MEDS: KCL 10 MEQ IVPB 100 ML IVPB SCH ×3 (08:08→09:53)
[2016-07-20] MEDS: FENTANYL INJECTION 500 MCG in DEXTROSE 5%-WATER - 90 ML IJ SCH ×2 (08:35→13:27)
[2016-07-20 08:41] LABS: BURR CELLS 1+; DOHLE BODIES 2+; HYPOCHROMIA 1+; METAMYELOCYTE 1 % (0-2); PLATELET ESTIMATE DECREASED (NORMAL); POLYCHROMASIA FEW; TOXIC GRANULATION 1+
[2016-07-20] MEDS: FAMOTIDINE 20 MG/50 ML IVPB 50 ML IVPB SCH ×2 (09:00→21:50)
[2016-07-20] MEDS: FLUCONAZOLE 200 MG/NS 100 ML IVPB SCH (09:53)
[2016-07-20] MEDS: MUPIROCIN 2% TOPICAL OINTMENT FOR DECOLONIZATION NS SCH ×2 (09:53→21:49)
--- NOTE | 2016-07-20 09:59 | PN ---
Progress Note (short form) - Note Progress Note: PULMONARY/CCM Pt seen and examined in the ICU. Remains intubated, sedated on levophed, bicarb gtts. Low grade fever overnight. Transfused 1 unit monodonor platelets yesterday for thrombocytopenia. Last Vital Signs Temp Pulse Resp BP Pulse Ox 100 F H 104 H 26 H 89/60 100 07/20/16 06:00 07/20/16 09:01 07/20/16 09:01 07/20/16 09:01 07/20/16 08:28 Gen: intubated, sedated, less tachypneic Heart: tachycardic, regular Lung: scattered rhonchi Abd: soft, dressings dry/intact Ext: + edema, dusky fingeres and toes CBC, BMP 07/20/16 05:30 07/20/16 05:30 Active Medications Acetaminophen (Ofirmev Injection -) 1,000 mg IVPB Q6H PRN PRN Reason: FEVER Last Admin: 07/19/16 15:30 Dose: 1,000 mg Chlorhexidine Gluconate (Hibiclens For Decolonization -) 1 applic TP HS [facility] Last Admin: 07/19/16 22:00 Dose: 1 applic Fluconazole (Diflucan 200 Mg/Ns Premixed Ivpb -) 100 mls @ 100 mls/hr IVPB DAILY [facility] Last Admin: 07/20/16 09:53 Dose: 100 mls/hr Fentanyl 500 mcg/ Dextrose 100 mls @ 10 mls/hr IJ TITR AVERY PRN Reason: 50 MCG/HR Last Admin: 07/20/16 08:35 Dose: Not Given Midazolam HCl 100 mg/ Sodium (Chloride) 100 mls @ 5 mls/hr IVPB TITR AVERY; 5 MG/ HR PRN Reason: Protocol Last Admin: 07/19/16 22:36 Dose: 3 mls/hr Norepinephrine Bitartrate 8, (000 mcg/ Dextrose) 500 mls @ 18.75 mls/hr IV TITR AVERY; 5 MCG/MIN PRN Reason: Protocol Last Titration: 07/20/16 08:34 Dose: 7 mcg/min Famotidine/Sodium Chloride (Pepcid 20 Mg Premixed Ivpb -) 50 mls @ 100 mls/hr IVPB BID [facility] Last Admin: 07/20/16 09:00 Dose: 100 mls/hr Sodium Bicarbonate 150 meq/ (Dextrose) 1,150 mls @ 75 mls/hr IV Q15H [facility] Last Admin: 07/20/16 05:30 Dose: 75 mls/hr Vasopressin 50 units/ Sodium (Chloride) 100 mls @ 6 mls/hr IVPB ASDIR AVERY; 3 UNITS/HR PRN Reason: Protocol Last Admin: 07/20/16 02:10 Dose: 8 mls/hr Meropenem 1 gm/ Dextrose 100 mls @ 100 mls/hr IVPB Q8H-IV AVERY PRN Reason: Protocol Last Admin: 07/20/16 09:00 Dose: 100 mls/hr Potassium Chloride (Potassium Chloride 10 Meq Premix Ivpb -) 100 mls @ 100 mls/ hr IVPB Q60M [facility] Stop: 07/20/16 10:14 Last Admin: 07/20/16 09:53 Dose: 100 mls/hr Insulin Aspart (Novolog Vial Sliding Scale -) 1 vial SQ ACHS AVERY PRN Reason: Protocol Last Admin: 07/20/16 06:01 Dose: Not Given Mupirocin (Bactroban Ointment (For Decolonization) -) 1 applic NS BID [facility] Stop: 07/21/16 21:59 Last Admin: 07/20/16 09:53 Dose: 1 applic A/P Perforated Duodenal Ulcer Peritonitis s/p ex-lap/omental patch repair 07/16 Acute Respiratory Failure Septic Shock Acute Kidney Injury Lactic Acidosis Leukopenia/Thrombocytopenia likely from sepsis DM - continue antibiotics - IVF to keep CVP 8-12 - titrate pressors to maintain MAP >65 - monitor urine output, creatinine - will need lasix when hemodynamically stable - trend lactate - taper Fio2 to keep Spo2 >90% - monitor ABG - transfuse platelets if <20K, cryo if fibrinogen <100 - DVT/GI prophylaxis - continue ICU monitoring critical care time spent in reviewing chart, evaluating patient and formulating plan 40 min
[2016-07-20 10:24] LABS: ARTERIAL BLD GAS O2 SATURATION 99.2 % (90-98.9); ARTERIAL BLOOD GAS BASE EXCESS -9.5 meq/l (-2-2); ARTERIAL BLOOD GAS HCO3 14.6 meq/L (22-26); ARTERIAL BLOOD GAS pH 7.36 (7.35-7.45)
[2016-07-20 10:25] LABS: ALLENS TEST POSITIVE; ART PUNCT SITE RIGHT RADIAL; LPM/O2% 60%; MECH. VENT. ESPRIT; PT. ON O2? YES; TYPE OF O2 MEC.VENT; VENT RATE 26; VT/PRESS 400
[2016-07-20] MEDS: ACETAMINOPHEN 1000 MG/100 ML VIAL (NON FORMULARY) IVPB PRN ×3 (10:39→23:26)
[2016-07-20] MEDS ORDERED: DEXTROSE 50%-WATER - 25 GM/50 ML VIAL ONE (11:32)
--- NOTE | 2016-07-20 11:56 | PN ---
Progress Note, Physician Chief Complaint: Comatosed on respirato - Current Medication List Current Medications: Active Medications Acetaminophen (Ofirmev Injection -) 1,000 mg IVPB Q6H PRN PRN Reason: FEVER Last Admin: 07/20/16 10:39 Dose: 1,000 mg Chlorhexidine Gluconate (Hibiclens For Decolonization -) 1 applic TP HS [facility] Last Admin: 07/19/16 22:00 Dose: 1 applic Fluconazole (Diflucan 200 Mg/Ns Premixed Ivpb -) 100 mls @ 100 mls/hr IVPB DAILY [facility] Last Admin: 07/20/16 09:53 Dose: 100 mls/hr Fentanyl 500 mcg/ Dextrose 100 mls @ 10 mls/hr IJ TITR AVERY PRN Reason: 50 MCG/HR Last Admin: 07/20/16 08:35 Dose: Not Given Midazolam HCl 100 mg/ Sodium (Chloride) 100 mls @ 5 mls/hr IVPB TITR AVERY; 5 MG/ HR PRN Reason: Protocol Last Admin: 07/19/16 22:36 Dose: 3 mls/hr Norepinephrine Bitartrate 8, (000 mcg/ Dextrose) 500 mls @ 18.75 mls/hr IV TITR AVERY; 5 MCG/MIN PRN Reason: Protocol Last Titration: 07/20/16 10:38 Dose: 6 mcg/min Famotidine/Sodium Chloride (Pepcid 20 Mg Premixed Ivpb -) 50 mls @ 100 mls/hr IVPB BID [facility] Last Admin: 07/20/16 09:00 Dose: 100 mls/hr Sodium Bicarbonate 150 meq/ (Dextrose) 1,150 mls @ 75 mls/hr IV Q15H [facility] Last Admin: 07/20/16 05:30 Dose: 75 mls/hr Vasopressin 50 units/ Sodium (Chloride) 100 mls @ 6 mls/hr IVPB ASDIR AVERY; 3 UNITS/HR PRN Reason: Protocol Last Admin: 07/20/16 02:10 Dose: 8 mls/hr Meropenem 1 gm/ Dextrose 100 mls @ 100 mls/hr IVPB Q8H-IV [facility]ERY PRN Reason: Protocol Last Admin: 07/20/16 09:00 Dose: 100 mls/hr Insulin Aspart (Novolog Vial Sliding Scale -) 1 vial SQ ACHS AVERY PRN Reason: Protocol Last Admin: 07/20/16 11:42 Dose: Not Given Mupirocin (Bactroban Ointment (For Decolonization) -) 1 applic NS BID [facility] Stop: 07/21/16 21:59 Last Admin: 07/20/16 09:53 Dose: 1 applic - Objective Vital Signs: Vital Signs Temperature 100 F H 07/20/16 06:00 Pulse Rate 105 H 07/20/16 10:38 Respiratory Rate 26 H 07/20/16 11:40 Blood Pressure 95/69 07/20/16 10:38 O2 Sat by Pulse Oximetry (%) 100 07/20/16 09:00 Constitutional: Yes: Other (comatosed) Eyes: Yes: WNL Neck: Yes: WNL Cardiovascular: Yes: WNL, Tachycardia Respiratory: Yes: Mechanically Ventilated Gastrointestinal: Yes: Hypoactive Bowel Sounds ...Rectal Exam: Yes: Deferred Genitourinary: Yes: Bacon Present Edema: Yes Edema: LLE: 1+, RLE: 1+ Labs: CBC, BMP 07/20/16 05:30 07/20/16 05:30 INR, PTT INR 1.46 (0.82-1.09) H 07/20/16 05:30 Fibrinogen 480.0 mg/dL (238-498) 07/20/16 05:30 Assessment/Plan Case discussed with Dr Chance
[2016-07-20] MEDS: DEXTROSE 50%-WATER - 25 GM/50 ML VIAL IVPUSH PRN ×2 (12:17→17:57)
--- NOTE | 2016-07-20 12:26 | PN ---
Progress Note (short form) - Note Progress Note: Progress Note: Patient seen in follow up. No events overnight. Remains intubated, pressor dependant, weaning. No reports of bleeding as per nurse. Received platelets without incident - good response noted with post-transfusion count. Meds reviewed. Current Medications Generic Name Dose Route Start Last Admin Trade Name Freq PRN Reason Stop Dose Admin Acetaminophen 1,000 mg 07/19/16 15:43 07/20/16 10:39 Ofirmev Injection - IVPB 1,000 mg Q6H PRN Administration FEVER Chlorhexidine Gluconate 1 applic 07/16/16 22:00 07/19/16 22:00 Hibiclens For Decolonization - TP 1 applic HS AVERY Administration Dextrose 50 ml 07/20/16 11:54 07/20/16 12:17 D50w (Vial) - IVPUSH 50 ml Q15M PRN Administration BLOOD SUGAR < 60 Fluconazole 100 mls @ 100 mls/hr 07/17/16 10:00 07/20/16 09:53 Diflucan 200 Mg/Ns Premixed Ivpb - IVPB 100 mls/hr DAILY AVERY Administration Norepinephrine Bitartrate 8, 500 mls @ 18.75 mls/hr 07/16/16 23:15 07/20/16 12: 16 000 mcg/ Dextrose IV 5 mcg/min TITR AVERY Titration Protocol 5 MCG/MIN Famotidine/Sodium Chloride 50 mls @ 100 mls/hr 07/17/16 10:00 07/20/16 09:00 Pepcid 20 Mg Premixed Ivpb - IVPB 100 mls/hr BID AVERY Administration Sodium Bicarbonate 150 meq/ 1,150 mls @ 75 mls/hr 07/19/16 14:30 07/20/16 05:30 Dextrose IV 75 mls/hr Q15H AVERY Administration Vasopressin 50 units/ Sodium 100 mls @ 6 mls/hr 07/19/16 14:16 07/20/16 02:10 Chloride IVPB 8 mls/hr ASDIR AVERY Administration Protocol 3 UNITS/HR Meropenem 1 gm/ Dextrose 100 mls @ 100 mls/hr 07/19/16 18:00 07/20/16 09:00 IVPB 100 mls/hr Q8H-IV AVERY Administration Protocol Insulin Aspart 1 vial 07/17/16 16:30 07/20/16 11:42 Novolog Vial Sliding Scale - SQ Not Given ACHS [facility] Protocol Mupirocin 1 applic 07/16/16 22:00 07/20/16 09:53 Bactroban Ointment (For Decolonization) - NS 07/21/16 21:59 1 applic BID AVERY Administration On examination: Last Vital Signs Temp Pulse Resp BP Pulse Ox 100 F H 103 H 26 H 105/80 100 07/20/16 06:00 07/20/16 12:16 07/20/16 11:40 07/20/16 12:16 07/20/16 09:00 General: Intubated, sedated. Oropharyngeal: No signs mucosal hemorrhage. Extremities: Perfuesing poorly, cold extremities. Skin: No petechiae. Neuro: Sedated. Labs reviewed: CBC, BMP 07/20/16 05:30 07/20/16 05:30 Assessment: Sepsis with SIRS, severe. Thrombocytopenia likely secondary to her systemic condition. May be component of drug-induced thrombocytopenia, but would not change her regimen. Continue supportive transfusion support - prophylactically maintain platelet count > 20K (while febrile). Prior leukopenia resolved now. Monitor coagulation parameters daily - can consider cryo if fibrinogen <100.
--- NOTE | 2016-07-20 13:14 | PN ---
Progress Note, Physician History of Present Illness: patient continues to spike fever still intubated patient also needing support to maintain blood pressure on pressors - Current Medication List Current Medications: Active Medications Acetaminophen (Ofirmev Injection -) 1,000 mg IVPB Q6H PRN PRN Reason: FEVER Last Admin: 07/20/16 10:39 Dose: 1,000 mg Chlorhexidine Gluconate (Hibiclens For Decolonization -) 1 applic TP HS AVERY Last Admin: 07/19/16 22:00 Dose: 1 applic Dextrose (D50w (Vial) -) 50 ml IVPUSH Q15M PRN PRN Reason: BLOOD SUGAR < 60 Last Admin: 07/20/16 12:17 Dose: 50 ml Fluconazole (Diflucan 200 Mg/Ns Premixed Ivpb -) 100 mls @ 100 mls/hr IVPB DAILY AVERY Last Admin: 07/20/16 09:53 Dose: 100 mls/hr Norepinephrine Bitartrate 8, (000 mcg/ Dextrose) 500 mls @ 18.75 mls/hr IV TITR AVERY; 5 MCG/MIN PRN Reason: Protocol Last Titration: 07/20/16 12:16 Dose: 5 mcg/min Famotidine/Sodium Chloride (Pepcid 20 Mg Premixed Ivpb -) 50 mls @ 100 mls/hr IVPB BID AVERY Last Admin: 07/20/16 09:00 Dose: 100 mls/hr Sodium Bicarbonate 150 meq/ (Dextrose) 1,150 mls @ 75 mls/hr IV Q15H AVERY Last Admin: 07/20/16 05:30 Dose: 75 mls/hr Vasopressin 50 units/ Sodium (Chloride) 100 mls @ 6 mls/hr IVPB ASDIR AVERY; 3 UNITS/HR PRN Reason: Protocol Last Admin: 07/20/16 02:10 Dose: 8 mls/hr Meropenem 1 gm/ Dextrose 100 mls @ 100 mls/hr IVPB Q8H-IV AVERY PRN Reason: Protocol Last Admin: 07/20/16 09:00 Dose: 100 mls/hr Fentanyl 500 mcg/ Dextrose 100 mls @ 6 mls/hr IJ TITR AVERY; 30 MCG/HR PRN Reason: Protocol Midazolam HCl 100 mg/ Sodium (Chloride) 100 mls @ 1 mls/hr IVPB TITR AVERY; 1 MG/ HR PRN Reason: Protocol Insulin Aspart (Novolog Vial Sliding Scale -) 1 vial SQ ACHS AVERY PRN Reason: Protocol Last Admin: 07/20/16 11:42 Dose: Not Given Mupirocin (Bactroban Ointment (For Decolonization) -) 1 applic NS BID AVERY Stop: 07/21/16 21:59 Last Admin: 07/20/16 09:53 Dose: 1 applic - Objective Vital Signs: Vital Signs Temperature 100 F H 07/20/16 06:00 Pulse Rate 103 H 07/20/16 12:16 Respiratory Rate 26 H 07/20/16 12:55 Blood Pressure 105/80 07/20/16 12:16 O2 Sat by Pulse Oximetry (%) 100 07/20/16 12:55 Constitutional: Yes: Other Cardiovascular: Yes: Regular Rate and Rhythm Respiratory: Yes: Intubated, Mechanically Ventilated Gastrointestinal: Yes: Other (absent bowel sounds) Musculoskeletal: Yes: Other Extremities: Yes: Other Edema: LUE: Trace, RUE: Trace, LLE: Trace, RLE: Trace Wound/Incision: Yes: Clean/Dry, Dressing Dry and Intact Neurological: Yes: Other Labs: CBC, BMP 07/20/16 05:30 07/20/16 05:30 INR, PTT INR 1.46 (0.82-1.09) H 07/20/16 05:30 Fibrinogen 480.0 mg/dL (238-498) 07/20/16 05:30 Assessment/Plan Problem List - Problems (1) Abdominal pain Code(s): R10.9 - UNSPECIFIED ABDOMINAL PAIN Qualifiers: Qualified Code(s): R10.33 - Periumbilical pain (2) Perforated abdominal viscus Code(s): [id number] - (3) Perforated viscus Code(s): R19.8 - OTH SYMPTOMS AND SIGNS INVOLVING THE DGSTV SYS AND ABDOMEN (4) Hypertension Code(s): I10 - ESSENTIAL (PRIMARY) HYPERTENSION Qualifiers: Qualified Code(s): I10 - Essential (primary) hypertension lactic acidosis fevers plan continue current mgmt follow ph changed abx blood cx result noted monitor fever curves rest as per surgery/icu cc time 40 min
[2016-07-20] MEDS ORDERED: VASOPRESSIN 20 UNITS/ML VIAL IV ONE (13:20)
--- NOTE | 2016-07-20 13:24 | PN ---
Progress Note, Physician - Current Medication List Current Medications: Active Medications Acetaminophen (Ofirmev Injection -) 1,000 mg IVPB Q6H PRN PRN Reason: FEVER Last Admin: 07/20/16 10:39 Dose: 1,000 mg Chlorhexidine Gluconate (Hibiclens For Decolonization -) 1 applic TP HS AVERY Last Admin: 07/19/16 22:00 Dose: 1 applic Dextrose (D50w (Vial) -) 50 ml IVPUSH Q15M PRN PRN Reason: BLOOD SUGAR < 60 Last Admin: 07/20/16 12:17 Dose: 50 ml Fluconazole (Diflucan 200 Mg/Ns Premixed Ivpb -) 100 mls @ 100 mls/hr IVPB DAILY AVERY Last Admin: 07/20/16 09:53 Dose: 100 mls/hr Norepinephrine Bitartrate 8, (000 mcg/ Dextrose) 500 mls @ 18.75 mls/hr IV TITR AVERY; 5 MCG/MIN PRN Reason: Protocol Last Titration: 07/20/16 13:15 Dose: 4 mcg/min Famotidine/Sodium Chloride (Pepcid 20 Mg Premixed Ivpb -) 50 mls @ 100 mls/hr IVPB BID AVERY Last Admin: 07/20/16 09:00 Dose: 100 mls/hr Sodium Bicarbonate 150 meq/ (Dextrose) 1,150 mls @ 75 mls/hr IV Q15H AVERY Last Admin: 07/20/16 05:30 Dose: 75 mls/hr Vasopressin 50 units/ Sodium (Chloride) 100 mls @ 6 mls/hr IVPB ASDIR AEVRY; 3 UNITS/HR PRN Reason: Protocol Last Admin: 07/20/16 02:10 Dose: 8 mls/hr Meropenem 1 gm/ Dextrose 100 mls @ 100 mls/hr IVPB Q8H-IV AVERY PRN Reason: Protocol Last Admin: 07/20/16 09:00 Dose: 100 mls/hr Fentanyl 500 mcg/ Dextrose 100 mls @ 6 mls/hr IJ TITR AVERY; 30 MCG/HR PRN Reason: Protocol Midazolam HCl 100 mg/ Sodium (Chloride) 100 mls @ 1 mls/hr IVPB TITR AVERY; 1 MG/ HR PRN Reason: Protocol Insulin Aspart (Novolog Vial Sliding Scale -) 1 vial SQ ACHS AVERY PRN Reason: Protocol Last Admin: 07/20/16 11:42 Dose: Not Given Mupirocin (Bactroban Ointment (For Decolonization) -) 1 applic NS BID AVERY Stop: 07/21/16 21:59 Last Admin: 07/20/16 09:53 Dose: 1 applic - Objective Vital Signs: Vital Signs Temperature 100.4 F H 07/20/16 10:00 Pulse Rate 106 H 07/20/16 13:15 Respiratory Rate 26 H 07/20/16 13:00 Blood Pressure 111/72 07/20/16 13:15 O2 Sat by Pulse Oximetry (%) 100 07/20/16 12:55 Labs: CBC, BMP 07/20/16 05:30 07/20/16 05:30 INR, PTT INR 1.46 (0.82-1.09) H 07/20/16 05:30 Fibrinogen 480.0 mg/dL (238-498) 07/20/16 05:30 Problem List - Problems (1) Abdominal pain Code(s): R10.9 - UNSPECIFIED ABDOMINAL PAIN Qualifiers: Abdominal location: periumbilical Qualified Code(s): R10.33 - Periumbilical pain (2) Perforated abdominal viscus Code(s): [id number] - (3) Perforated viscus Code(s): R19.8 - OTH SYMPTOMS AND SIGNS INVOLVING THE DGSTV SYS AND ABDOMEN (4) Hypertension Code(s): I10 - ESSENTIAL (PRIMARY) HYPERTENSION Qualifiers: Hypertension type: essential hypertension Qualified Code(s): I10 - Essential (primary) hypertension Assessment/Plan Low grade temp. BP 111 systolic, on levophed drip. Thrombocytopenia. Acidosis improving. Still critical. Continue monitoring, acidosis, septic.
[2016-07-20] MEDS: MIDAZOLAM 100 MG in SODIUM CHLORIDE 100 ML IVPB SCH ×2 (13:28→13:30)
[2016-07-20] MEDS ORDERED: PT OWN MED DRAWER 7, Y5N ONE ×2 (16:41→20:13)
[2016-07-20 17:36] LABS: COCKROFT - GAULT 51.7905; CREATININE 1.4 mg/dL (0.55-1.02)
[2016-07-20 17:50] LABS: CALCIUM 6.9 mg/dL (8.5-10.1)
[2016-07-20] MEDS: CHLORHEXIDINE GLUCONATE 4% CLEANSER FOR DECOLONIZATION TP SCH (21:50)
[2016-07-21] MEDS ORDERED: VASOPRESSIN 20 UNITS/ML VIAL IV ONE ×3 (01:14→20:25)
[2016-07-21] MEDS: MEROPENEM 1 GM in DEXTROSE 5%-WATER - 100 ML IVPB SCH ×3 (01:36→17:47)
[2016-07-21] MEDS: FENTANYL INJECTION 500 MCG in DEXTROSE 5%-WATER - 90 ML IJ SCH ×2 (01:37→12:20)
[2016-07-21] MEDS: VASOPRESSIN 50 UNITS in SODIUM CHLORIDE 97.5 ML IVPB SCH ×2 (01:38→15:20)
[2016-07-21] MEDS: ACETAMINOPHEN 1000 MG/100 ML VIAL (NON FORMULARY) IVPB PRN ×3 (05:30→21:55)
[2016-07-21 06:08] LABS: MCH 29.1 pg (25.7-33.7); MCHC 32.9 g/dl (32.0-36.0); MEAN CELL VOLUME 88.5 fl (80-96); MEAN PLT VOLUME 10.2 fl (7.5-11.1); RDW 14.9 % (11.6-15.6); WHITE BLOOD COUNT 8.9 K/mm3 (4.0-10.0)
[2016-07-21] MEDS: INSULIN SLIDING SCALE (NOVOLOG) 1 VIAL SQ SCH ×4 (06:20→21:53)
[2016-07-21 06:22] LABS: INR 1.59 (0.82-1.09); PROTHROMBIN TIME (PATIENT) 17.6 SEC (9.98-11.88)
[2016-07-21 06:24] LABS: ACTIVATED PTT 49.4 SECONDS (26.9-34.4)
[2016-07-21 06:39] LABS: ALBUMIN 1.1 g/dl (3.4-5.0); COCKROFT - GAULT 46.6395; CREATININE 1.6 mg/dL (0.55-1.02); MAGNESIUM 1.8 mg/dL (1.8-2.4)
[2016-07-21 06:41] LABS: BILIRUBIN,TOTAL 0.3 mg/dL (0.2-1.0); TOT PROT 3.4 g/dl (6.4-8.2)
[2016-07-21] MEDS ORDERED: NOREPINEPHRINE BITARTRATE 4 MG/4 ML ML IV ONE (06:42)
[2016-07-21] MEDS: NOREPINEPHRINE BITARTRATE 8,000 MCG in DEXTROSE 5%-WATER - 492 ML IV SCH ×2 (06:43→07:43)
[2016-07-21 06:55] LABS: PLATELET COUNT 29 K/MM3 (134-434)
[2016-07-21 07:18] LABS: CALCIUM 6.8 mg/dL (8.5-10.1)
--- NOTE | 2016-07-21 07:54 | PN ---
Physical Exam: SUBJECTIVE: Patient seen and examined intubated and sedated. required platelets over the weekend. OBJECTIVE: Vital Signs Period Temp Pulse Resp BP Sys/Major Pulse Ox Last 24 Hr 100.4 F-101.8 F 100-107 16-26 81-123/59-98 100-100 HEAD: Normal with no signs of trauma. EYES: pinpoint pupils, edematous sclera, sclera anicteric. ENT: Ears normal, nares patent right NGT in right nostril draining thick green fluid, oropharynx with ET in place. dry mucous membranes. NECK: Trachea midline. LUNGS: coarse breath sounds bilaterally, no wheezes, no crackles, no accessory muscle use. HEART: Regular rate and rhythm, S1, S2 without murmur, rub or gallop. ABDOMEN: distended, firm, scant serous discharge from midline inscion, 1x2 serous fluid filled vesicle in right lower quadrant, sump pump in place with minimal green fluid disharge in tubing. hypoactive bowel sounds. EXTREMITIES: doppler pulses in TP, 1+ radial b/l, dorsalis pedis - nonpalpable, cool, pitting extremity anasarca. left antecubital with fluid filled vesicle. no skin mottling. fingernails are blue. Laboratory Results - last 24 hr 07/16/16 07/19/16 07/20/16 17:45 05:30 05:30 WBC RBC Hgb Hct MCV MCHC RDW Plt Count MPV Neutrophils % 73.0 Lymphocytes % 6.0 L Monocytes % 3.0 L Eosinophils % 5.0 H Band Neutrophils 12.0 H Metamyelocytes 1 D Toxic Granulation 1+ Dohle Bodies 2+ Platelet Estimate Decreased Platelet Comment No clumping noted Polychromasia Few Hypochromic-Microcytic 1+ [place] Cells 1+ INR PTT (Actin FS) Fibrinogen Puncture Site ABG pH ABG pCO2 at Pt Temp ABG pO2 at Pt Temp ABG HCO3 ABG O2 Sat (Measured) ABG O2 Content ABG Base Excess Heber Test O2 Delivery Device Oxygen Flow Rate Vent Mode Vent Rate Mechanical Rate PEEP Pressure Support Vent Sodium Potassium Chloride Carbon Dioxide Anion Gap BUN Creatinine Creat Clearance w eGFR POC Glucometer Random Glucose Lactic Acid Calcium Phosphorus Magnesium Total Bilirubin AST ALT Alkaline Phosphatase Total Protein Albumin Cortisol AM Sample 9.5 Blood Type O POSITIVE Antibody Screen Negative Crossmatch See Detail Spec Expiration Date 07/20/16 07/20/16 07/20/16 10:15 11:28 12:12 WBC RBC Hgb Hct MCV MCHC RDW Plt Count MPV Neutrophils % Lymphocytes % Monocytes % Eosinophils % Band Neutrophils Metamyelocytes Toxic Granulation Dohle Bodies Platelet Estimate Platelet Comment Polychromasia Hypochromic-Microcytic [place] Cells INR PTT (Actin FS) Fibrinogen Puncture Site Right radial ABG pH 7.36 ABG pCO2 at Pt Temp 26.6 L ABG pO2 at Pt Temp 142.0 H D ABG HCO3 14.6 L* ABG O2 Sat (Measured) 99.2 H ABG O2 Content 12.5 L ABG Base Excess -9.5 L Heber Test Positive O2 Delivery Device Mec.vent Oxygen Flow Rate 60% Vent Mode A/c Vent Rate 26 Mechanical Rate Esprit PEEP 5.0 Pressure Support Vent 400 Sodium Potassium Chloride Carbon Dioxide Anion Gap BUN Creatinine Creat Clearance w eGFR POC Glucometer 58.80448 159.29816 Random Glucose Lactic Acid Calcium Phosphorus Magnesium Total Bilirubin AST ALT Alkaline Phosphatase Total Protein Albumin Cortisol AM Sample Blood Type Antibody Screen Crossmatch Spec Expiration Date 07/20/16 07/20/16 07/20/16 17:03 17:03 18:23 WBC RBC Hgb Hct MCV MCHC RDW Plt Count MPV Neutrophils % Lymphocytes % Monocytes % Eosinophils % Band Neutrophils Metamyelocytes Toxic Granulation Dohle Bodies Platelet Estimate Platelet Comment Polychromasia Hypochromic-Microcytic [place] Cells INR PTT (Actin FS) Fibrinogen Puncture Site ABG pH ABG pCO2 at Pt Temp ABG pO2 at Pt Temp ABG HCO3 ABG O2 Sat (Measured) ABG O2 Content ABG Base Excess Heber Test O2 Delivery Device Oxygen Flow Rate Vent Mode Vent Rate Mechanical Rate PEEP Pressure Support Vent Sodium 136 Potassium 3.8 Chloride 107 Carbon Dioxide 17 L Anion Gap 12 BUN 16 Creatinine 1.4 H Creat Clearance w eGFR POC Glucometer 214.03781 Random Glucose 61 L Lactic Acid 3.325 H* Calcium 6.9 L* Phosphorus Magnesium Total Bilirubin AST ALT Alkaline Phosphatase Total Protein Albumin Cortisol AM Sample Blood Type Antibody Screen Crossmatch Spec Expiration Date 07/20/16 07/21/16 07/21/16 21:36 05:15 05:15 WBC 8.9 RBC 2.93 L Hgb 8.5 L Hct 25.9 L MCV 88.5 MCHC 32.9 RDW 14.9 Plt Count 29 L* D MPV 10.2 D Neutrophils % Y Lymphocytes % Y Monocytes % Eosinophils % Band Neutrophils Metamyelocytes Toxic Granulation Dohle Bodies Platelet Estimate Platelet Comment Polychromasia Hypochromic-Microcytic [place] Cells INR PTT (Actin FS) Fibrinogen Puncture Site ABG pH ABG pCO2 at Pt Temp ABG pO2 at Pt Temp ABG HCO3 ABG O2 Sat (Measured) ABG O2 Content ABG Base Excess Heber Test O2 Delivery Device Oxygen Flow Rate Vent Mode Vent Rate Mechanical Rate PEEP Pressure Support Vent Sodium 138 Potassium 3.8 Chloride 103 Carbon Dioxide 17 L Anion Gap 18 H BUN 22 H D Creatinine 1.6 H Creat Clearance w eGFR 32.15 POC Glucometer 155.39594 Random Glucose 79 D Lactic Acid Calcium 6.8 L* Phosphorus 4.0 D Magnesium 1.8 Total Bilirubin 0.3 AST 77 H D ALT 39 D Alkaline Phosphatase 80 Total Protein 3.4 L Albumin 1.1 L Cortisol AM Sample Blood Type Antibody Screen Crossmatch Spec Expiration Date 07/21/16 07/21/16 07/21/16 05:15 05:15 05:48 WBC RBC Hgb Hct MCV MCHC RDW Plt Count MPV Neutrophils % Lymphocytes % Monocytes % Eosinophils % Band Neutrophils Metamyelocytes Toxic Granulation Dohle Bodies Platelet Estimate Platelet Comment Polychromasia Hypochromic-Microcytic [place] Cells INR 1.59 H PTT (Actin FS) 49.4 H Fibrinogen 459.0 Puncture Site ABG pH ABG pCO2 at Pt Temp ABG pO2 at Pt Temp ABG HCO3 ABG O2 Sat (Measured) ABG O2 Content ABG Base Excess Heber Test O2 Delivery Device Oxygen Flow Rate Vent Mode Vent Rate Mechanical Rate PEEP Pressure Support Vent Sodium Potassium Chloride Carbon Dioxide Anion Gap BUN Creatinine Creat Clearance w eGFR POC Glucometer 103.40524 Random Glucose Lactic Acid 4.226 H* Calcium Phosphorus Magnesium Total Bilirubin AST ALT Alkaline Phosphatase Total Protein Albumin Cortisol AM Sample Blood Type Antibody Screen Crossmatch Spec Expiration Date Active Medications Acetaminophen (Ofirmev Injection -) 1,000 mg IVPB Q6H PRN PRN Reason: FEVER Last Admin: 07/21/16 05:30 Dose: 1,000 mg Chlorhexidine Gluconate (Hibiclens For Decolonization -) 1 applic TP HS AVERY Last Admin: 07/20/16 21:50 Dose: 1 applic Dextrose (D50w (Vial) -) 50 ml IVPUSH Q15M PRN PRN Reason: BLOOD SUGAR < 60 Last Admin: 07/20/16 17:57 Dose: 50 ml Fluconazole (Diflucan 200 Mg/Ns Premixed Ivpb -) 100 mls @ 100 mls/hr IVPB DAILY AVERY Last Admin: 07/20/16 09:53 Dose: 100 mls/hr Norepinephrine Bitartrate 8, (000 mcg/ Dextrose) 500 mls @ 18.75 mls/hr IV TITR AVERY; 5 MCG/MIN PRN Reason: Protocol Last Admin: 07/21/16 07:43 Dose: Not Given Famotidine/Sodium Chloride (Pepcid 20 Mg Premixed Ivpb -) 50 mls @ 100 mls/hr IVPB BID AVERY Last Admin: 07/21/16 09:00 Dose: 100 mls/hr Sodium Bicarbonate 150 meq/ (Dextrose) 1,150 mls @ 75 mls/hr IV Q15H AVERY Last Admin: 07/20/16 21:48 Dose: 75 mls/hr Vasopressin 50 units/ Sodium (Chloride) 100 mls @ 6 mls/hr IVPB ASDIR AVERY; 3 UNITS/HR PRN Reason: Protocol Last Admin: 07/21/16 01:38 Dose: 8 mls/hr Meropenem 1 gm/ Dextrose 100 mls @ 100 mls/hr IVPB Q8H-IV AVERY PRN Reason: Protocol Last Admin: 07/21/16 09:00 Dose: 100 mls/hr Fentanyl 500 mcg/ Dextrose 100 mls @ 6 mls/hr IJ TITR AVERY; 30 MCG/HR PRN Reason: Protocol Last Admin: 07/21/16 01:37 Dose: 6 mls/hr Midazolam HCl 100 mg/ Sodium (Chloride) 100 mls @ 1 mls/hr IVPB TITR AVERY; 1 MG/ HR PRN Reason: Protocol Last Titration: 07/20/16 17:42 Dose: 0 mg/hr Insulin Aspart (Novolog Vial Sliding Scale -) 1 vial SQ ACHS AVERY PRN Reason: Protocol Last Admin: 07/21/16 06:20 Dose: Not Given Mupirocin (Bactroban Ointment (For Decolonization) -) 1 applic NS BID AVERY Stop: 07/21/16 21:59 Last Admin: 07/20/16 21:49 Dose: 1 applic ASSESSMENT/PLAN: 65 yr old woman with HTN, dementia, NIDDM II admitted to ICU with septic shock secondary to perforated duodenal ulcer and peritonitis. - chest/abdomen/pelvis with po contrast to r/o abscess as source of fever Cardivascular Hypotensive requiring pressors - improving - vasopressin 6units/hr, (norepi dc'ed) - Bicarb gtt - maintain goal MAP>65, CVP improved to 14, however urine output has declined, 12hr total 200cc. s/p 1 unit prbc's, no indication for additional prbc's Pulmonary endotracheal tube placed 07/16 fio2 50%, ACV, sat 100%, RR 26, titrate to maintain spo2 >90% daily chest xray; currently showing b/l pleural effusions Chest CT without IV contrast, only po Gastrointestinal; s/p repair perforated duodenal ulcer 07/16 - POD#5 - NGT in place draining dark brown secretions, NPO - IV diflucan 200mg Ivpb q24hr - day 5 - Meropenem IV 1gm q8hr - day 2 - pepcid ivpb 20g daily - abd/pelvis CT with po contrast Renal - ZAHIRA - anion metabolic acidosis, in setting of sepsis with lactic acidosis - on Bicarb drip 150meq @75mls/hr - Bacon placed in ED pre-op 07/16; 24hr output: 500cc, net positive - consult: Dr. Tubbs; Dose all meds for Cr Cl less then 30 Infectious Disease, continous fevers on abx - consulted - meropenem + diflucan - monitor for fevers, tylenol IVPB 1gm q6hr, requiring cooling blanket - bld cx and tissue cx growing polymicrobial - lactic acidosis continue to trend Endocrine NIDDM II - currently NPO - D5 Iv push 1 amp when BGM <60 - BGM q6hrs w/ goal 140-180, NISS Hematologic - leukopenia - resolved - thrombocytopenia likely due to sepsis - s/p 1 unit platelet, goal to maintain plts>20,000 - consult Dr. Church Neurologic - sedation on hold today. Dementia wrist restraints Diet: NPO DVT- SCD' given thrombocytopenia Visit type - Emergency Visit Emergency Visit: No - New Patient This patient is new to me today: No - Critical Care Critical Care patient: Yes Total Critical Care Time (in minutes): 40 Critical Care Statement: The care of this patient involved high complexity decision making to prevent further life threatening deterioration of the patient 's condition and/or to evalute & treat vital organ system(s) failure or risk of failure.
[2016-07-21 08:00] LABS: ALLENS TEST POSITIVE; ART PUNCT SITE LEFT BRACHIAL; ARTERIAL BLD GAS O2 SATURATION 98.7 % (90-98.9); ARTERIAL BLOOD GAS BASE EXCESS -8.1 meq/l (-2-2); ARTERIAL BLOOD GAS HCO3 15.8 meq/L (22-26); ARTERIAL BLOOD GAS pH 7.37 (7.35-7.45); LPM/O2% 60%; MECH. VENT. Y; PT. ON O2? YES; TYPE OF O2 VENT
[2016-07-21 08:01] LABS: VENT RATE 26; VT/PRESS 400
[2016-07-21] MEDS ORDERED: PT OWN MED DRAWER 7, Y5N ONE ×2 (08:34→17:08)
[2016-07-21] MEDS: FAMOTIDINE 20 MG/50 ML IVPB 50 ML IVPB SCH ×2 (09:00→21:54)
[2016-07-21 09:10] LABS: PLATELET ESTIMATE MARKEDLY DECREASED (NORMAL)
[2016-07-21] MEDS: FLUCONAZOLE 200 MG/NS 100 ML IVPB SCH (09:56)
[2016-07-21] MEDS: MUPIROCIN 2% TOPICAL OINTMENT FOR DECOLONIZATION NS SCH (09:56)
[2016-07-21] MEDS: CHLORHEXIDINE GLUCONATE 0.12% 15ML CUP MM SCH ×2 (10:13→21:54)
--- NOTE | 2016-07-21 10:47 | PN ---
Progress Note (short form) - Note Progress Note: Renal Follow up for ZAHIRA/Metabolic acidosis Pt seen and examined in the ICU sedated on Vent on Vasopressin, tapered off Levophed On bicarb gtt non-oliguirc CVP is 18-20 Vital Signs Temperature 102 F H 07/21/16 09:59 Pulse Rate 95 H 07/21/16 09:59 Respiratory Rate 26 H 07/21/16 09:59 Blood Pressure 87/62 07/21/16 09:59 O2 Sat by Pulse Oximetry (%) 100 07/21/16 10:39 Intake & Output 07/18/16 07/19/16 07/20/16 07/21/16 23:59 23:59 23:59 23:59 Intake Total 41468.5 5531 2810 875.5 Output Total 1650 1960 1000 100 Balance 8398.5 3571 1810 775.5 Weight 169 lb 12.095 oz 178 lb 9.6 oz 185 lb 8 oz 190 lb 14.4 oz Gen: Sedated on the Vent. HEENT: NC/AT, No JVD, ET Tube in place CVS: RRR, No M/R Lungs: CTA (anterior exam) Abd: Abd pain in palce, sutures appear clean. + distension Ext: Trace LE edema, no clubbing or cyanosis : No bladder distension CBC, BMP 07/21/16 05:15 07/21/16 05:15 Current Medications Acetaminophen (Ofirmev Injection -) 1,000 mg IVPB Q6H PRN PRN Reason: FEVER Last Admin: 07/21/16 05:30 Dose: 1,000 mg Chlorhexidine Gluconate (Hibiclens For Decolonization -) 1 applic TP HS AVERY Last Admin: 07/20/16 21:50 Dose: 1 applic Chlorhexidine Gluconate (Peridex -) 15 ml MM BID AVERY Last Admin: 07/21/16 10:13 Dose: 15 ml Dextrose (D50w (Vial) -) 50 ml IVPUSH Q15M PRN PRN Reason: BLOOD SUGAR < 60 Last Admin: 07/20/16 17:57 Dose: 50 ml Fluconazole (Diflucan 200 Mg/Ns Premixed Ivpb -) 100 mls @ 100 mls/hr IVPB DAILY AVERY Last Admin: 07/21/16 09:56 Dose: 100 mls/hr Norepinephrine Bitartrate 8, (000 mcg/ Dextrose) 500 mls @ 18.75 mls/hr IV TITR AVERY; 5 MCG/MIN PRN Reason: Protocol Last Titration: 07/21/16 09:29 Dose: 0 mcg/min Famotidine/Sodium Chloride (Pepcid 20 Mg Premixed Ivpb -) 50 mls @ 100 mls/hr IVPB BID AVERY Last Admin: 07/21/16 09:00 Dose: 100 mls/hr Sodium Bicarbonate 150 meq/ (Dextrose) 1,150 mls @ 75 mls/hr IV Q15H AVERY Last Admin: 07/20/16 21:48 Dose: 75 mls/hr Vasopressin 50 units/ Sodium (Chloride) 100 mls @ 6 mls/hr IVPB ASDIR AVERY; 3 UNITS/HR PRN Reason: Protocol Last Titration: 07/21/16 09:29 Dose: 6 units/hr Meropenem 1 gm/ Dextrose 100 mls @ 100 mls/hr IVPB Q8H-IV AVERY PRN Reason: Protocol Last Admin: 07/21/16 09:00 Dose: 100 mls/hr Fentanyl 500 mcg/ Dextrose 100 mls @ 6 mls/hr IJ TITR AVERY; 30 MCG/HR PRN Reason: Protocol Last Titration: 07/21/16 10:06 Dose: 0 mcg/hr Midazolam HCl 100 mg/ Sodium (Chloride) 100 mls @ 1 mls/hr IVPB TITR AVERY; 1 MG/ HR PRN Reason: Protocol Last Titration: 07/20/16 17:42 Dose: 0 mg/hr Insulin Aspart (Novolog Vial Sliding Scale -) 1 vial SQ ACHS AVERY PRN Reason: Protocol Last Admin: 07/21/16 06:20 Dose: Not Given Mupirocin (Bactroban Ointment (For Decolonization) -) 1 applic NS BID AVERY Stop: 07/21/16 21:59 Last Admin: 07/21/16 09:56 Dose: 1 applic A/P 65 year old woman with PMhx of hypertension, hypercholesterolemia, diabetes mellitus who presented with Abd pain and found to have perforated Abd viscus s/ p emergent Sx now with Septic Shock, ZAHIRA and Metabolic Acidosis. #Anion gap Metabolic acidosis secondary to lactic acidosis and renal failure Corrected anion gap is 25 lactic acid up trending CVP is at goal, MAP at goal on Vasopressers and IVF on Bicarb gtt, can consider holding as PH > 7.2 and Bicarb > 12 Trend ABG continue Vent support Continue Abx as per ID #Non-oliguric Acute Renal failure Cr remains elevated in setting of sepsis supportive care IVF/Vasopresser to keep CVP and MAP at goal avoid IV contrast #Sepsis/Perforated Abd Viscus ICU Care Surgical Follow up Vent support CT of Abd today #Leukopenia/Thrombocytopenia s/p plt transfusion yesterday #Pleural effusions in setting of Low albumin and Sepsis continue vent support IVF continued for management of shock Thank you Cyril Tubbs DO
[2016-07-21 11:34] LABS: MCH 29.2 pg (25.7-33.7); MEAN CELL VOLUME 88.4 fl (80-96); MEAN PLT VOLUME 9.8 fl (7.5-11.1); RDW 14.5 % (11.6-15.6); WHITE BLOOD COUNT 8.8 K/mm3 (4.0-10.0)
[2016-07-21 11:43] LABS: PLATELET COUNT 22 K/MM3 (134-434)
--- NOTE | 2016-07-21 12:02 | PN ---
Teaching Attending Note Name of Resident: Trevin Terrazas ATTENDING PHYSICIAN STATEMENT I saw and evaluated the patient. I reviewed the resident's note and discussed the case with the resident. I agree with the resident's findings and plan as documented. SUBJECTIVE: Pt seen and examined in the ICU. Remains intubated, sedated, febrile overnight. Levophed gtt tapered off. OBJECTIVE: Last Vital Signs Temp Pulse Resp BP Pulse Ox 102 F H 95 H 26 H 87/62 100 07/21/16 09:59 07/21/16 09:59 07/21/16 09:59 07/21/16 09:59 07/21/16 10:39 Intake & Output 07/18/16 07/19/16 07/20/16 07/21/16 23:59 23:59 23:59 23:59 Intake Total 76127.5 5531 2810 875.5 Output Total 1650 1960 1000 100 Balance 8398.5 3571 1810 775.5 Weight 169 lb 12.095 oz 178 lb 9.6 oz 185 lb 8 oz 190 lb 14.4 oz Gen: intubated, sedated Heart: RRR Lung: scattered rhonchi Abd: soft, dressings dry Ext: + edema, dusky fingertips CBC, BMP 07/21/16 11:00 07/21/16 11:00 Active Medications Acetaminophen (Ofirmev Injection -) 1,000 mg IVPB Q6H PRN PRN Reason: FEVER Last Admin: 07/21/16 05:30 Dose: 1,000 mg Chlorhexidine Gluconate (Hibiclens For Decolonization -) 1 applic TP HS [facility] Last Admin: 07/20/16 21:50 Dose: 1 applic Chlorhexidine Gluconate (Peridex -) 15 ml MM BID [facility] Last Admin: 07/21/16 10:13 Dose: 15 ml Dextrose (D50w (Vial) -) 50 ml IVPUSH Q15M PRN PRN Reason: BLOOD SUGAR < 60 Last Admin: 07/20/16 17:57 Dose: 50 ml Fluconazole (Diflucan 200 Mg/Ns Premixed Ivpb -) 100 mls @ 100 mls/hr IVPB DAILY [facility] Last Admin: 07/21/16 09:56 Dose: 100 mls/hr Norepinephrine Bitartrate 8, (000 mcg/ Dextrose) 500 mls @ 18.75 mls/hr IV TITR [facility]; 5 MCG/MIN PRN Reason: Protocol Last Titration: 07/21/16 09:29 Dose: 0 mcg/min Famotidine/Sodium Chloride (Pepcid 20 Mg Premixed Ivpb -) 50 mls @ 100 mls/hr IVPB BID [facility] Last Admin: 07/21/16 09:00 Dose: 100 mls/hr Sodium Bicarbonate 150 meq/ (Dextrose) 1,150 mls @ 75 mls/hr IV Q15H [facility] Last Admin: 07/20/16 21:48 Dose: 75 mls/hr Vasopressin 50 units/ Sodium (Chloride) 100 mls @ 6 mls/hr IVPB ASDIR [facility]; 3 UNITS/HR PRN Reason: Protocol Last Titration: 07/21/16 09:29 Dose: 6 units/hr Meropenem 1 gm/ Dextrose 100 mls @ 100 mls/hr IVPB Q8H-IV [facility] PRN Reason: Protocol Last Admin: 07/21/16 09:00 Dose: 100 mls/hr Fentanyl 500 mcg/ Dextrose 100 mls @ 6 mls/hr IJ TITR [facility]; 30 MCG/HR PRN Reason: Protocol Last Titration: 07/21/16 10:06 Dose: 0 mcg/hr Midazolam HCl 100 mg/ Sodium (Chloride) 100 mls @ 1 mls/hr IVPB TITR [facility]; 1 MG/ HR PRN Reason: Protocol Last Titration: 07/20/16 17:42 Dose: 0 mg/hr Insulin Aspart (Novolog Vial Sliding Scale -) 1 vial SQ ACHS [facility] PRN Reason: Protocol Last Admin: 07/21/16 06:20 Dose: Not Given Mupirocin (Bactroban Ointment (For Decolonization) -) 1 applic NS BID [facility] Stop: 07/21/16 21:59 Last Admin: 07/21/16 09:56 Dose: 1 applic ASSESSMENT AND PLAN: Perforated Duodenal Ulcer Peritonitis s/p ex-lap/omental patch repair 07/16 Acute Respiratory Failure Septic Shock Acute Kidney Injury Lactic Acidosis Leukopenia/Thrombocytopenia likely from sepsis DM - continue antibiotics - will obtain CT C/A/P to investigate source of fevers - IVF to keep CVP 8-12 - titrate pressors to maintain MAP >65 - monitor urine output, creatinine - will need lasix when hemodynamically stable - trend lactate - taper Fio2 to keep Spo2 >90% - monitor ABG - transfuse platelets if <20K, cryo if fibrinogen <100 - DVT/GI prophylaxis - continue ICU monitoring critical care time spent in reviewing chart, evaluating patient and formulating plan 40 min
[2016-07-21] MEDS ORDERED: SODIUM BICARBONATE 8.4% 50 MEQ/50 ML VIAL ONE (12:14)
[2016-07-21] MEDS: SODIUM BICARBONATE 8.4% - 150 MEQ in DEXTROSE 5%-WATER - 1,000 ML IV SCH (12:20)
[2016-07-21] MEDS: MIDAZOLAM 100 MG in SODIUM CHLORIDE 100 ML IVPB SCH (12:21)
--- NOTE | 2016-07-21 16:12 | PN ---
Progress Note, Physician - Current Medication List Current Medications: Active Medications Acetaminophen (Ofirmev Injection -) 1,000 mg IVPB Q6H PRN PRN Reason: FEVER Last Admin: 07/21/16 15:21 Dose: 1,000 mg Chlorhexidine Gluconate (Hibiclens For Decolonization -) 1 applic TP HS [facility] Last Admin: 07/20/16 21:50 Dose: 1 applic Chlorhexidine Gluconate (Peridex -) 15 ml MM BID [facility] Last Admin: 07/21/16 10:13 Dose: 15 ml Dextrose (D50w (Vial) -) 50 ml IVPUSH Q15M PRN PRN Reason: BLOOD SUGAR < 60 Last Admin: 07/20/16 17:57 Dose: 50 ml Fluconazole (Diflucan 200 Mg/Ns Premixed Ivpb -) 100 mls @ 100 mls/hr IVPB DAILY [facility] Last Admin: 07/21/16 09:56 Dose: 100 mls/hr Norepinephrine Bitartrate 8, (000 mcg/ Dextrose) 500 mls @ 18.75 mls/hr IV TITR [facility]ERY; 5 MCG/MIN PRN Reason: Protocol Last Titration: 07/21/16 09:29 Dose: 0 mcg/min Famotidine/Sodium Chloride (Pepcid 20 Mg Premixed Ivpb -) 50 mls @ 100 mls/hr IVPB BID [facility] Last Admin: 07/21/16 09:00 Dose: 100 mls/hr Sodium Bicarbonate 150 meq/ (Dextrose) 1,150 mls @ 75 mls/hr IV Q15H [facility] Last Admin: 07/21/16 12:20 Dose: 75 mls/hr Vasopressin 50 units/ Sodium (Chloride) 100 mls @ 6 mls/hr IVPB ASDIR [facility]; 3 UNITS/HR PRN Reason: Protocol Last Admin: 07/21/16 15:20 Dose: 12 mls/hr Meropenem 1 gm/ Dextrose 100 mls @ 100 mls/hr IVPB Q8H-IV [facility] PRN Reason: Protocol Last Admin: 07/21/16 09:00 Dose: 100 mls/hr Fentanyl 500 mcg/ Dextrose 100 mls @ 6 mls/hr IJ TITR [facility]ERY; 30 MCG/HR PRN Reason: Protocol Last Admin: 07/21/16 12:20 Dose: Not Given Midazolam HCl 100 mg/ Sodium (Chloride) 100 mls @ 1 mls/hr IVPB TITR [facility]; 1 MG/ HR PRN Reason: Protocol Last Admin: 07/21/16 12:21 Dose: Not Given Insulin Aspart (Novolog Vial Sliding Scale -) 1 vial SQ ACHS [facility] PRN Reason: Protocol Last Admin: 07/21/16 12:09 Dose: Not Given Mupirocin (Bactroban Ointment (For Decolonization) -) 1 applic NS BID [facility] Stop: 07/21/16 21:59 Last Admin: 07/21/16 09:56 Dose: 1 applic - Objective Vital Signs: Vital Signs Temperature 101.4 F H 07/21/16 12:00 Pulse Rate 96 H 07/21/16 15:29 Respiratory Rate 29 H 07/21/16 15:29 Blood Pressure 94/63 07/21/16 15:29 O2 Sat by Pulse Oximetry (%) 100 07/21/16 12:23 Labs: CBC, BMP 07/21/16 11:00 07/21/16 11:00 INR, PTT INR 1.59 (0.82-1.09) H 07/21/16 05:15 Fibrinogen 459.0 mg/dL (238-498) 07/21/16 05:15 Problem List - Problems (1) Abdominal pain Code(s): R10.9 - UNSPECIFIED ABDOMINAL PAIN Qualifiers: Abdominal location: periumbilical Qualified Code(s): R10.33 - Periumbilical pain (2) Perforated abdominal viscus Code(s): [id number] - (3) Perforated viscus Code(s): R19.8 - OTH SYMPTOMS AND SIGNS INVOLVING THE DGSTV SYS AND ABDOMEN (4) Hypertension Code(s): I10 - ESSENTIAL (PRIMARY) HYPERTENSION Qualifiers: Hypertension type: essential hypertension Qualified Code(s): I10 - Essential (primary) hypertension Assessment/Plan patient remains critical. Abdomen : No drainage from the wound. Ct scan : No significant abdominal collection seen, report is pending. She is edematous. Bilateral pleural effusion with consolidation. Remains septic , nor responding to treatment. She is not responsive.
[2016-07-21 17:40] LABS: HYPOCHROMIA FEW; PLATELET ESTIMATE DECREASED (NORMAL)
[2016-07-21] MEDS: PHYTONADIONE 10 MG/1 ML AMP SQ SCH (17:48)
[2016-07-21 18:18] LABS: BASOPHIL 0.3 % (0-2.0); EOSINOPHIL 2.8 % (0-4.5); MCH 28.8 pg (25.7-33.7); MCHC 32.8 g/dl (32.0-36.0); MEAN PLT VOLUME 10.3 fl (7.5-11.1); NEUTROPHILS 86.8 % (42.8-82.8); RDW 14.7 % (11.6-15.6); WHITE BLOOD COUNT 8.3 K/mm3 (4.0-10.0)
[2016-07-21 18:30] LABS: PLATELET COUNT 29 K/MM3 (134-434)
--- NOTE | 2016-07-21 19:12 | PN ---
Progress Note, Physician History of Present Illness: continues to be critical fevers tapering intubated on pressor support - Current Medication List Current Medications: Active Medications Acetaminophen (Ofirmev Injection -) 1,000 mg IVPB Q6H PRN PRN Reason: FEVER Last Admin: 07/21/16 15:21 Dose: 1,000 mg Chlorhexidine Gluconate (Hibiclens For Decolonization -) 1 applic TP HS [facility] Last Admin: 07/20/16 21:50 Dose: 1 applic Chlorhexidine Gluconate (Peridex -) 15 ml MM BID [facility] Last Admin: 07/21/16 10:13 Dose: 15 ml Dextrose (D50w (Vial) -) 50 ml IVPUSH Q15M PRN PRN Reason: BLOOD SUGAR < 60 Last Admin: 07/20/16 17:57 Dose: 50 ml Fluconazole (Diflucan 200 Mg/Ns Premixed Ivpb -) 100 mls @ 100 mls/hr IVPB DAILY [facility] Last Admin: 07/21/16 09:56 Dose: 100 mls/hr Norepinephrine Bitartrate 8, (000 mcg/ Dextrose) 500 mls @ 18.75 mls/hr IV TITR [facility]; 5 MCG/MIN PRN Reason: Protocol Last Titration: 07/21/16 09:29 Dose: 0 mcg/min Famotidine/Sodium Chloride (Pepcid 20 Mg Premixed Ivpb -) 50 mls @ 100 mls/hr IVPB BID [facility] Last Admin: 07/21/16 09:00 Dose: 100 mls/hr Sodium Bicarbonate 150 meq/ (Dextrose) 1,150 mls @ 75 mls/hr IV Q15H [facility] Last Admin: 07/21/16 12:20 Dose: 75 mls/hr Vasopressin 50 units/ Sodium (Chloride) 100 mls @ 6 mls/hr IVPB ASDIR [facility]; 3 UNITS/HR PRN Reason: Protocol Last Admin: 07/21/16 15:20 Dose: 12 mls/hr Meropenem 1 gm/ Dextrose 100 mls @ 100 mls/hr IVPB Q8H-IV [facility] PRN Reason: Protocol Last Admin: 07/21/16 17:47 Dose: 100 mls/hr Fentanyl 500 mcg/ Dextrose 100 mls @ 6 mls/hr IJ TITR [facility]; 30 MCG/HR PRN Reason: Protocol Last Admin: 07/21/16 12:20 Dose: Not Given Midazolam HCl 100 mg/ Sodium (Chloride) 100 mls @ 1 mls/hr IVPB TITR [facility]; 1 MG/ HR PRN Reason: Protocol Last Admin: 07/21/16 12:21 Dose: Not Given Insulin Aspart (Novolog Vial Sliding Scale -) 1 vial SQ ACHS [facility] PRN Reason: Protocol Last Admin: 07/21/16 17:49 Dose: Not Given Mupirocin (Bactroban Ointment (For Decolonization) -) 1 applic NS BID [facility] Stop: 07/21/16 21:59 Last Admin: 07/21/16 09:56 Dose: 1 applic Phytonadione (Aqua Mephyton Injection -) 5 mg SQ DAILY [facility] Stop: 07/24/16 17:29 Last Admin: 07/21/16 17:48 Dose: 5 mg - Objective Vital Signs: Vital Signs Temperature 101.4 F H 07/21/16 12:00 Pulse Rate 96 H 07/21/16 15:29 Respiratory Rate 32 H 07/21/16 17:14 Blood Pressure 94/63 07/21/16 15:29 O2 Sat by Pulse Oximetry (%) 100 07/21/16 12:23 Constitutional: Yes: Other Cardiovascular: Yes: Regular Rate and Rhythm Respiratory: Yes: Intubated, Mechanically Ventilated Gastrointestinal: Yes: Other Edema: LUE: 1+, RUE: 1+, LLE: 1+, RLE: 1+ Neurological: Yes: Other Labs: CBC, BMP 07/21/16 17:30 07/21/16 11:00 INR, PTT INR 1.59 (0.82-1.09) H 07/21/16 05:15 Fibrinogen 459.0 mg/dL (238-498) 07/21/16 05:15 - ....Imaging Chest X-ray: Report Reviewed, Image Reviewed Assessment/Plan Problem List - Problems (1) Abdominal pain Code(s): R10.9 - UNSPECIFIED ABDOMINAL PAIN Qualifiers: Qualified Code(s): R10.33 - Periumbilical pain (2) Perforated abdominal viscus Code(s): [id number] - (3) Perforated viscus Code(s): R19.8 - OTH SYMPTOMS AND SIGNS INVOLVING THE DGSTV SYS AND ABDOMEN (4) Hypertension Code(s): I10 - ESSENTIAL (PRIMARY) HYPERTENSION Qualifiers: Qualified Code(s): I10 - Essential (primary) hypertension lactic acidosis fevers plan continue current mgmt follow ph changed abx blood cx result noted monitor fever curves rest as per surgery/icu cc time 40 min
[2016-07-21] MEDS: CHLORHEXIDINE GLUCONATE 4% CLEANSER FOR DECOLONIZATION TP SCH (21:52)
--- NOTE | 2016-07-21 22:50 | PN ---
Progress Note (short form) - Note Progress Note: PAtient seen and examined intubated/sedated Febrile, hypotensive intubated anasarca Cor: RSR, No murmurs, No gallops Lungs: Clear to P&A Abd: Soft, Normal bowel sounds, No organomegaly Ext:anasarca Abnormal Lab Results 07/21/16 07/21/16 07/21/16 05:15 05:15 07:55 RBC Hgb Hct Plt Count MPV Neutrophils % Monocytes % 1.0 L Eosinophils % 5.0 H Nucleated RBCs 2 H ABG pCO2 at Pt Temp 28.1 L ABG pO2 at Pt Temp 144.0 H ABG HCO3 15.8 L ABG O2 Content 12.2 L ABG Base Excess -8.1 L Sodium Carbon Dioxide BUN Creatinine Random Glucose Lactic Acid Calcium 6.8 L* 07/21/16 07/21/16 07/21/16 11:00 11:00 11:00 RBC 2.90 L Hgb 8.5 L Hct 25.7 L Plt Count 22 L* D MPV Neutrophils % Monocytes % 2.0 L D Eosinophils % Nucleated RBCs ABG pCO2 at Pt Temp ABG pO2 at Pt Temp ABG HCO3 ABG O2 Content ABG Base Excess Sodium Carbon Dioxide BUN Creatinine Random Glucose 115 H D Lactic Acid 4.397 H* Calcium 07/21/16 07/22/16 07/22/16 17:30 05:35 05:35 RBC 2.84 L 2.73 L Hgb 8.2 L 8.0 L Hct 25.0 L 23.9 L Plt Count 29 L* D 33 L* MPV 11.2 H Neutrophils % 86.8 H Monocytes % 0.7 L Eosinophils % Nucleated RBCs ABG pCO2 at Pt Temp ABG pO2 at Pt Temp ABG HCO3 ABG O2 Content ABG Base Excess Sodium 133 L Carbon Dioxide 18 L BUN 28 H D Creatinine 1.7 H Random Glucose 170 H D Lactic Acid Calcium 6.6 L* 07/22/16 05:35 RBC Hgb Hct Plt Count MPV Neutrophils % Monocytes % Eosinophils % Nucleated RBCs ABG pCO2 at Pt Temp ABG pO2 at Pt Temp ABG HCO3 ABG O2 Content ABG Base Excess Sodium Carbon Dioxide BUN Creatinine Random Glucose Lactic Acid 3.883 H* Calcium Active Medications Generic Name Dose Route Start Last Admin Trade Name Freq PRN Reason Stop Dose Admin Acetaminophen 1,000 mg 07/19/16 15:43 07/21/16 21:55 Ofirmev Injection - IVPB 1,000 mg Q6H PRN Administration FEVER Chlorhexidine Gluconate 1 applic 07/16/16 22:00 07/21/16 21:52 Hibiclens For Decolonization - TP 1 applic HS [facility] Administration Chlorhexidine Gluconate 15 ml 07/21/16 10:00 07/21/16 21:54 Peridex - MM 15 ml BID [facility] Administration Dextrose 50 ml 07/20/16 11:54 07/20/16 17:57 D50w (Vial) - IVPUSH 50 ml Q15M PRN Administration BLOOD SUGAR < 60 Fluconazole 100 mls @ 100 mls/hr 07/17/16 10:00 07/21/16 09:56 Diflucan 200 Mg/Ns Premixed Ivpb - IVPB 100 mls/hr DAILY [facility] Administration Norepinephrine Bitartrate 8, 500 mls @ 18.75 mls/hr 07/16/16 23:15 07/22/16 02: 46 000 mcg/ Dextrose IV Not Given TITR [facility] Protocol 5 MCG/MIN Famotidine/Sodium Chloride 50 mls @ 100 mls/hr 07/17/16 10:00 07/21/16 21:54 Pepcid 20 Mg Premixed Ivpb - IVPB 100 mls/hr BID [facility] Administration Sodium Bicarbonate 150 meq/ 1,150 mls @ 75 mls/hr 07/19/16 14:30 07/22/16 02:46 Dextrose IV 75 mls/hr Q15H [facility] Administration Vasopressin 50 units/ Sodium 100 mls @ 6 mls/hr 07/19/16 14:16 07/22/16 02:47 Chloride IVPB 12 mls/hr ASDIR [facility] Administration Protocol 3 UNITS/HR Meropenem 1 gm/ Dextrose 100 mls @ 100 mls/hr 07/19/16 18:00 07/22/16 02:46 IVPB 100 mls/hr Q8H-IV [facility] Administration Protocol Insulin Aspart 1 vial 07/17/16 16:30 07/22/16 06:17 Novolog Vial Sliding Scale - SQ 4 units ACHS [facility] Administration Protocol Phytonadione 5 mg 07/21/16 17:30 07/21/16 17:48 Aqua Mephyton Injection - SQ 07/24/16 17:29 5 mg DAILY [facility] Administration A/P 65 y/o patient with Sepsis with SIRS, severe. Thrombocytopenia likely secondary to her systemic condition. May be component of drug-induced thrombocytopenia, but would not change her regimen. Continue supportive transfusion support - prophylactically maintain platelet count > 20K (while febrile). Monitor coagulation parameters daily - can consider cryo if fibrinogen <100. trial of Vit/.K
[2016-07-22] MEDS ORDERED: SODIUM BICARBONATE 8.4% 50 MEQ/50 ML VIAL ONE ×2 (02:32→21:57)
[2016-07-22] MEDS ORDERED: VASOPRESSIN 20 UNITS/ML VIAL IV ONE ×3 (02:33→23:56)
[2016-07-22] MEDS ORDERED: PT OWN MED DRAWER 7, Y5N ONE ×3 (02:34→16:49)
[2016-07-22] MEDS: SODIUM BICARBONATE 8.4% - 150 MEQ in DEXTROSE 5%-WATER - 1,000 ML IV SCH ×2 (02:46→22:41)
[2016-07-22] MEDS: NOREPINEPHRINE BITARTRATE 8,000 MCG in DEXTROSE 5%-WATER - 492 ML IV SCH (02:46)
[2016-07-22] MEDS: MEROPENEM 1 GM in DEXTROSE 5%-WATER - 100 ML IVPB SCH ×3 (02:46→17:12)
[2016-07-22] MEDS: VASOPRESSIN 50 UNITS in SODIUM CHLORIDE 97.5 ML IVPB SCH ×3 (02:47→16:38)
[2016-07-22] MEDS: INSULIN SLIDING SCALE (NOVOLOG) 1 VIAL SQ SCH ×4 (06:17→22:50)
[2016-07-22 06:27] LABS: MCH 29.3 pg (25.7-33.7); MCHC 33.6 g/dl (32.0-36.0); MEAN CELL VOLUME 87.4 fl (80-96); MEAN PLT VOLUME 11.2 fl (7.5-11.1); RDW 14.7 % (11.6-15.6); WHITE BLOOD COUNT 9.4 K/mm3 (4.0-10.0)
[2016-07-22 06:43] LABS: COCKROFT - GAULT 44.2; CREATININE 1.7 mg/dL (0.55-1.02)
[2016-07-22 06:51] LABS: PLATELET COUNT 33 K/MM3 (134-434)
[2016-07-22 07:00] LABS: CALCIUM 6.6 mg/dL (8.5-10.1)
--- NOTE | 2016-07-22 07:59 | PN ---
Physical Exam: SUBJECTIVE: Patient seen and examined. patient off sedation but nonresponsivel. decreased urine output overnight. increased fluid filled vesicles throughout body, rupture of vesicle in medial right thigh leading to exposed skin. OBJECTIVE: Vital Signs Period Temp Pulse Resp BP Sys/Major Pulse Ox Last 24 Hr 101.4 F-103.3 F 86-103 26-33 82-115/56-79 100-100 HEAD: Normal with no signs of trauma. EYES: pinpoint pupils, edematous sclera, sclera anicteric. ENT: Ears normal, nares patent right NGT in right nostril draining thick green fluid, oropharynx with ET in place. dry mucous membranes. anterior tongue is dark NECK: Trachea midline. LUNGS: coarse breath sounds bilaterally, no wheezes, no crackles, no accessory muscle use. HEART: Regular rate and rhythm, S1, S2 without murmur, rub or gallop. ABDOMEN: distended, firm, scant serous discharge from midline inscion, 2x2 serous fluid filled vesicle in right lower quadrant, sump pump in place with green fluid discharge. hypoactive bowel sounds. EXTREMITIES: nonpalpable pulses in DP/TP/radial b/l, , cool, pitting extremity anasarca. left antecubital with fluid filled vesicle. no skin mottling. fingernails are blue. ruptured vesicle in inner medial thigh covered in xeroform , multiple vesicles in left medial thigh Laboratory Results - last 24 hr 07/18/16 07/18/16 07/19/16 22:54 23:07 13:54 WBC RBC Hgb Hct MCV MCHC RDW Plt Count MPV Neutrophils % Lymphocytes % Monocytes % Eosinophils % Basophils % Band Neutrophils Nucleated RBCs Differential Comment Platelet Estimate Platelet Comment Hypochromic-Microcytic Fibrinogen Anticoagulation Therapy Puncture Site ABG pH ABG pCO2 at Pt Temp ABG pO2 at Pt Temp ABG HCO3 ABG O2 Sat (Measured) ABG O2 Content ABG Base Excess Heber Test O2 Delivery Device Oxygen Flow Rate Vent Mode Vent Rate Mechanical Rate PEEP Pressure Support Vent Sodium Potassium Chloride Carbon Dioxide Anion Gap BUN Creatinine POC Glucometer 54.27681 102.29549 > 400 Random Glucose Lactic Acid Calcium 07/19/16 07/19/16 07/21/16 14:41 14:46 05:15 WBC RBC Hgb Hct MCV MCHC RDW Plt Count MPV Neutrophils % 78.0 Lymphocytes % 15.0 D Monocytes % 1.0 L Eosinophils % 5.0 H Basophils % 1.0 Band Neutrophils Nucleated RBCs 2 H Differential Comment Manual diff done Platelet Estimate Markedly decreased Platelet Comment Hypochromic-Microcytic Fibrinogen Anticoagulation Therapy Puncture Site ABG pH ABG pCO2 at Pt Temp ABG pO2 at Pt Temp ABG HCO3 ABG O2 Sat (Measured) ABG O2 Content ABG Base Excess Heber Test O2 Delivery Device Oxygen Flow Rate Vent Mode Vent Rate Mechanical Rate PEEP Pressure Support Vent Sodium Potassium Chloride Carbon Dioxide Anion Gap BUN Creatinine POC Glucometer < 50 > 400 Random Glucose Lactic Acid Calcium 07/21/16 07/21/16 07/21/16 07:55 11:00 11:00 WBC 8.8 RBC 2.90 L Hgb 8.5 L Hct 25.7 L MCV 88.4 MCHC 33.0 RDW 14.5 Plt Count 22 L* D MPV 9.8 Neutrophils % 80.0 Lymphocytes % 8.0 D Monocytes % 2.0 L D Eosinophils % 1.0 Basophils % Band Neutrophils 9.0 D Nucleated RBCs Differential Comment Platelet Estimate Decreased Platelet Comment No clumping noted Hypochromic-Microcytic Few Fibrinogen Anticoagulation Therapy Y Puncture Site Left brachial ABG pH 7.37 ABG pCO2 at Pt Temp 28.1 L ABG pO2 at Pt Temp 144.0 H ABG HCO3 15.8 L ABG O2 Sat (Measured) 98.7 ABG O2 Content 12.2 L ABG Base Excess -8.1 L Heber Test Positive O2 Delivery Device Vent Oxygen Flow Rate 60% Vent Mode A/c Vent Rate 26 Mechanical Rate Y PEEP 5.0 Pressure Support Vent 400 Sodium Potassium Chloride Carbon Dioxide Anion Gap BUN Creatinine POC Glucometer Random Glucose Lactic Acid 4.397 H* Calcium 07/21/16 07/21/16 07/21/16 11:00 17:30 17:46 WBC 8.3 RBC 2.84 L Hgb 8.2 L Hct 25.0 L MCV 88.0 MCHC 32.8 RDW 14.7 Plt Count 29 L* D MPV 10.3 Neutrophils % 86.8 H Lymphocytes % 9.4 Monocytes % 0.7 L Eosinophils % 2.8 D Basophils % 0.3 Band Neutrophils Nucleated RBCs Differential Comment Platelet Estimate Platelet Comment Hypochromic-Microcytic Fibrinogen Anticoagulation Therapy Puncture Site ABG pH ABG pCO2 at Pt Temp ABG pO2 at Pt Temp ABG HCO3 ABG O2 Sat (Measured) ABG O2 Content ABG Base Excess Heber Test O2 Delivery Device Oxygen Flow Rate Vent Mode Vent Rate Mechanical Rate PEEP Pressure Support Vent Sodium Potassium Chloride Carbon Dioxide Anion Gap BUN Creatinine POC Glucometer 150.98409 Random Glucose 115 H D Lactic Acid Calcium 07/21/16 07/22/16 07/22/16 21:36 05:35 05:35 WBC 9.4 RBC 2.73 L Hgb 8.0 L Hct 23.9 L MCV 87.4 MCHC 33.6 RDW 14.7 Plt Count 33 L* MPV 11.2 H Neutrophils % Y Lymphocytes % Y Monocytes % Eosinophils % Basophils % Band Neutrophils Nucleated RBCs Differential Comment Platelet Estimate Platelet Comment Hypochromic-Microcytic Fibrinogen Anticoagulation Therapy Puncture Site ABG pH ABG pCO2 at Pt Temp ABG pO2 at Pt Temp ABG HCO3 ABG O2 Sat (Measured) ABG O2 Content ABG Base Excess Heber Test O2 Delivery Device Oxygen Flow Rate Vent Mode Vent Rate Mechanical Rate PEEP Pressure Support Vent Sodium 133 L Potassium 4.2 Chloride 99 Carbon Dioxide 18 L Anion Gap 16 BUN 28 H D Creatinine 1.7 H POC Glucometer 160.99960 Random Glucose 170 H D Lactic Acid Calcium 6.6 L* 07/22/16 07/22/16 05:35 05:35 WBC RBC Hgb Hct MCV MCHC RDW Plt Count MPV Neutrophils % Lymphocytes % Monocytes % Eosinophils % Basophils % Band Neutrophils Nucleated RBCs Differential Comment Platelet Estimate Platelet Comment Hypochromic-Microcytic Fibrinogen 466.0 Anticoagulation Therapy Puncture Site ABG pH ABG pCO2 at Pt Temp ABG pO2 at Pt Temp ABG HCO3 ABG O2 Sat (Measured) ABG O2 Content ABG Base Excess Heber Test O2 Delivery Device Oxygen Flow Rate Vent Mode Vent Rate Mechanical Rate PEEP Pressure Support Vent Sodium Potassium Chloride Carbon Dioxide Anion Gap BUN Creatinine POC Glucometer Random Glucose Lactic Acid 3.883 H* Calcium Active Medications Generic Name Dose Route Start Last Admin Trade Name Freq PRN Reason Stop Dose Admin Acetaminophen 1,000 mg 07/19/16 15:43 07/21/16 21:55 Ofirmev Injection - IVPB 1,000 mg Q6H PRN Administration FEVER Chlorhexidine Gluconate 1 applic 07/16/16 22:00 07/21/16 21:52 Hibiclens For Decolonization - TP 1 applic HS [facility] Administration Chlorhexidine Gluconate 15 ml 05/15/17 10:00 07/21/16 21:54 Peridex - MM 15 ml BID [facility] Administration Dextrose 50 ml 07/20/16 11:54 07/20/16 17:57 D50w (Vial) - IVPUSH 50 ml Q15M PRN Administration BLOOD SUGAR < 60 Fluconazole 100 mls @ 100 mls/hr 07/17/16 10:00 07/21/16 09:56 Diflucan 200 Mg/Ns Premixed Ivpb - IVPB 100 mls/hr DAILY [facility] Administration Norepinephrine Bitartrate 8, 500 mls @ 18.75 mls/hr 07/16/16 23:15 07/22/16 02: 46 000 mcg/ Dextrose IV Not Given TITR [facility] Protocol 5 MCG/MIN Famotidine/Sodium Chloride 50 mls @ 100 mls/hr 07/17/16 10:00 07/21/16 21:54 Pepcid 20 Mg Premixed Ivpb - IVPB 100 mls/hr BID [facility] Administration Sodium Bicarbonate 150 meq/ 1,150 mls @ 75 mls/hr 07/19/16 14:30 07/22/16 02:46 Dextrose IV 75 mls/hr Q15H [facility] Administration Vasopressin 50 units/ Sodium 100 mls @ 6 mls/hr 07/19/16 14:16 07/22/16 02:47 Chloride IVPB 12 mls/hr ASDIR [facility] Administration Protocol 3 UNITS/HR Meropenem 1 gm/ Dextrose 100 mls @ 100 mls/hr 07/19/16 18:00 07/22/16 02:46 IVPB 100 mls/hr Q8H-IV [facility] Administration Protocol Insulin Aspart 1 vial 07/17/16 16:30 07/22/16 06:17 Novolog Vial Sliding Scale - SQ 4 units ACHS [facility] Administration Protocol Phytonadione 5 mg 07/21/16 17:30 07/21/16 17:48 Aqua Mephyton Injection - SQ 07/24/16 17:29 5 mg DAILY [facility] Administration ASSESSMENT/PLAN: 65 yr old woman with HTN, dementia, NIDDM II admitted to ICU with septic shock secondary to perforated duodenal ulcer and peritonitis. poor prognosis - dr. Miranda to speak with about prognosis. Cardivascular Hypotensive requiring pressors - improving - vasopressin 6units/hr - Bicarb gtt - maintain goal MAP>65, CVP improved to 17, however urine output has been declining - echo with normal LV systolic fxn, E/A reversal consistent with not diagnostic of poor LV compliance, right venticular systolic pressure is elevated 30- 40mmhg. no pericardial effusion Pulmonary endotracheal tube placed 07/16 fio2 50%, ACV, sat 100%, RR 26, titrate to maintain spo2 >90% daily chest xray; currently showing b/l pleural effusions chest CT - likely atelectasis; patchy peripheral infiltrates Gastrointestinal; s/p repair perforated duodenal ulcer 07/16 - NGT in place draining dark brown secretions, NPO - IV diflucan 200mg Ivpb q24hr - day 6 - Meropenem IV 1gm q8hr - day 3 - pepcid ivpb 20g daily - abd/pelvis CT with po contrast: no discrete abscess, distended gallbladder, pericholecytic fluid, thickened colon, mesenteric edema, colitis. - abdominal ultrasound for better gallbladder visualization Renal - ZAHIRA - anion metabolic acidosis, in setting of sepsis with lactic acidosi - on Bicarb drip 150meq @75mls/hr - Bacon placed in ED pre-op 07/16; 24hr output: 440cc, net positive - corrected calcium 8.5 - consult: Dr. Tubbs; Dose all meds for Cr Cl less then 30 Infectious Disease, continous fevers on abx - consulted - meropenem + diflucan - monitor for fevers, tylenol IVPB 1gm q6hr, requiring cooling blanket - bld cx and tissue cx growing polymicrobial - lactic acidosis; continue to trend Endocrine NIDDM II - currently NPO - D5 Iv push 1 amp when BGM <60 - BGM q6hrs w/ goal 140-180, NISS Hematologic - thrombocytopenia likely due to sepsis, r/o DIC, HIT - vit K IM 5mg sq daily for 3 doses. - goal to maintain plts>20,000 - consult Dr. Church Neurologic - patient off sedation, however non-responsive Dementia wrist restraints Diet: NPO DVT- SCD' given thrombocytopenia Visit type - Emergency Visit Emergency Visit: No - New Patient This patient is new to me today: No - Critical Care Critical Care patient: Yes Total Critical Care Time (in minutes): 40 Critical Care Statement: The care of this patient involved high complexity decision making to prevent further life threatening deterioration of the patient 's condition and/or to evalute & treat vital organ system(s) failure or risk of failure.
[2016-07-22 09:11] LABS: PLATELET ESTIMATE MARKEDLY DECREASED (NORMAL)
--- NOTE | 2016-07-22 09:16 | PN ---
Progress Note, Physician - Current Medication List Current Medications: Active Medications Acetaminophen (Ofirmev Injection -) 1,000 mg IVPB Q6H PRN PRN Reason: FEVER Last Admin: 07/21/16 21:55 Dose: 1,000 mg Chlorhexidine Gluconate (Hibiclens For Decolonization -) 1 applic TP HS AVERY Last Admin: 07/21/16 21:52 Dose: 1 applic Chlorhexidine Gluconate (Peridex -) 15 ml MM BID AVERY Last Admin: 07/21/16 21:54 Dose: 15 ml Dextrose (D50w (Vial) -) 50 ml IVPUSH Q15M PRN PRN Reason: BLOOD SUGAR < 60 Last Admin: 07/20/16 17:57 Dose: 50 ml Fluconazole (Diflucan 200 Mg/Ns Premixed Ivpb -) 100 mls @ 100 mls/hr IVPB DAILY AVERY Last Admin: 07/21/16 09:56 Dose: 100 mls/hr Norepinephrine Bitartrate 8, (000 mcg/ Dextrose) 500 mls @ 18.75 mls/hr IV TITR AVERY; 5 MCG/MIN PRN Reason: Protocol Last Admin: 07/22/16 02:46 Dose: Not Given Famotidine/Sodium Chloride (Pepcid 20 Mg Premixed Ivpb -) 50 mls @ 100 mls/hr IVPB BID AVERY Last Admin: 07/21/16 21:54 Dose: 100 mls/hr Sodium Bicarbonate 150 meq/ (Dextrose) 1,150 mls @ 75 mls/hr IV Q15H AVERY Last Admin: 07/22/16 02:46 Dose: 75 mls/hr Vasopressin 50 units/ Sodium (Chloride) 100 mls @ 6 mls/hr IVPB ASDIR AVERY; 3 UNITS/HR PRN Reason: Protocol Last Admin: 07/22/16 02:47 Dose: 12 mls/hr Meropenem 1 gm/ Dextrose 100 mls @ 100 mls/hr IVPB Q8H-IV AVERY PRN Reason: Protocol Last Admin: 07/22/16 02:46 Dose: 100 mls/hr Insulin Aspart (Novolog Vial Sliding Scale -) 1 vial SQ ACHS AVERY PRN Reason: Protocol Last Admin: 07/22/16 06:17 Dose: 4 units Phytonadione (Aqua Mephyton Injection -) 5 mg SQ DAILY AVERY Stop: 07/24/16 17:29 Last Admin: 07/21/16 17:48 Dose: 5 mg - Objective Vital Signs: Vital Signs Temperature 101.4 F H 07/22/16 06:00 Pulse Rate 86 07/22/16 08:00 Respiratory Rate 30 H 07/22/16 08:54 Blood Pressure 84/58 07/22/16 08:00 O2 Sat by Pulse Oximetry (%) 100 07/22/16 08:54 Labs: CBC, BMP 07/22/16 05:35 07/22/16 05:35 INR, PTT INR 1.59 (0.82-1.09) H 07/21/16 05:15 Fibrinogen 466.0 mg/dL (238-498) 07/22/16 05:35 Problem List - Problems (1) Abdominal pain Code(s): R10.9 - UNSPECIFIED ABDOMINAL PAIN Qualifiers: Abdominal location: periumbilical Qualified Code(s): R10.33 - Periumbilical pain (2) Perforated abdominal viscus Code(s): [id number] - (3) Perforated viscus Code(s): R19.8 - OTH SYMPTOMS AND SIGNS INVOLVING THE DGSTV SYS AND ABDOMEN (4) Hypertension Code(s): I10 - ESSENTIAL (PRIMARY) HYPERTENSION Qualifiers: Hypertension type: essential hypertension Qualified Code(s): I10 - Essential (primary) hypertension Assessment/Plan Surgery: Patient is not doing well, Febrile, hypotensive, thrombocytopenia, lactic acidosis. Not responding to treatment. Continue ICU management,, resuscitation. No drainage from drain, site. Prognosis guarded / poor, I have informed the patients .
[2016-07-22] MEDS: CHLORHEXIDINE GLUCONATE 0.12% 15ML CUP MM SCH ×2 (09:31→22:42)
[2016-07-22] MEDS: PHYTONADIONE 10 MG/1 ML AMP SQ SCH (09:35)
[2016-07-22] MEDS: FAMOTIDINE 20 MG/50 ML IVPB 50 ML IVPB SCH ×2 (09:36→22:42)
[2016-07-22] MEDS: FLUCONAZOLE 200 MG/NS 100 ML IVPB SCH (09:36)
[2016-07-22 09:40] LABS: VENOUS BLOOD GAS HCO3 19.6 meq/L (19-25); VENOUS PH 7.39 (7.32-7.42)
--- NOTE | 2016-07-22 09:41 | PN ---
Progress Note, Physician Chief Complaint: Comatosed on respirator History of Present Illness: Comatosed, Septic and poor prognosis - Current Medication List Current Medications: Active Medications Acetaminophen (Ofirmev Injection -) 1,000 mg IVPB Q6H PRN PRN Reason: FEVER Last Admin: 07/21/16 21:55 Dose: 1,000 mg Chlorhexidine Gluconate (Hibiclens For Decolonization -) 1 applic TP HS AVERY Last Admin: 07/21/16 21:52 Dose: 1 applic Chlorhexidine Gluconate (Peridex -) 15 ml MM BID AVERY Last Admin: 07/22/16 09:31 Dose: 15 ml Dextrose (D50w (Vial) -) 50 ml IVPUSH Q15M PRN PRN Reason: BLOOD SUGAR < 60 Last Admin: 07/20/16 17:57 Dose: 50 ml Fluconazole (Diflucan 200 Mg/Ns Premixed Ivpb -) 100 mls @ 100 mls/hr IVPB DAILY AVERY Last Admin: 07/21/16 09:56 Dose: 100 mls/hr Norepinephrine Bitartrate 8, (000 mcg/ Dextrose) 500 mls @ 18.75 mls/hr IV TITR AEVRY; 5 MCG/MIN PRN Reason: Protocol Last Admin: 07/22/16 02:46 Dose: Not Given Famotidine/Sodium Chloride (Pepcid 20 Mg Premixed Ivpb -) 50 mls @ 100 mls/hr IVPB BID AVERY Last Admin: 07/21/16 21:54 Dose: 100 mls/hr Sodium Bicarbonate 150 meq/ (Dextrose) 1,150 mls @ 75 mls/hr IV Q15H AVERY Last Admin: 07/22/16 02:46 Dose: 75 mls/hr Vasopressin 50 units/ Sodium (Chloride) 100 mls @ 6 mls/hr IVPB ASDIR AVERY; 3 UNITS/HR PRN Reason: Protocol Last Admin: 07/22/16 02:47 Dose: 12 mls/hr Meropenem 1 gm/ Dextrose 100 mls @ 100 mls/hr IVPB Q8H-IV AVERY PRN Reason: Protocol Last Admin: 07/22/16 02:46 Dose: 100 mls/hr Insulin Aspart (Novolog Vial Sliding Scale -) 1 vial SQ ACHS AVERY PRN Reason: Protocol Last Admin: 05/16/17 06:17 Dose: 4 units Phytonadione (Aqua Mephyton Injection -) 5 mg SQ DAILY AVERY Stop: 07/24/16 17:29 Last Admin: 07/21/16 17:48 Dose: 5 mg - Objective Vital Signs: Vital Signs Temperature 101.4 F H 07/22/16 06:00 Pulse Rate 87 07/22/16 09:30 Respiratory Rate 30 H 07/22/16 09:15 Blood Pressure 84/58 07/22/16 08:00 O2 Sat by Pulse Oximetry (%) 95 07/22/16 09:30 Neck: Yes: Supple Cardiovascular: Yes: WNL Respiratory: Yes: Mechanically Ventilated Gastrointestinal: Yes: Hypoactive Bowel Sounds Genitourinary: Yes: Oliguria Extremities: Yes: Cyanosis Peripheral Pulses WNL: No Labs: CBC, BMP 07/22/16 05:35 07/22/16 05:35 INR, PTT INR 1.59 (0.82-1.09) H 07/21/16 05:15 Fibrinogen 466.0 mg/dL (238-498) 07/22/16 05:35 Assessment/Plan prognosis poor
[2016-07-22] MEDS: ACETAMINOPHEN 1000 MG/100 ML VIAL (NON FORMULARY) IVPB PRN (09:43)
[2016-07-22] MEDS ORDERED: PHYTONADIONE 10 MG/1 ML AMP SQ SCH (10:00)
--- NOTE | 2016-07-22 10:42 | PN ---
Progress Note (short form) - Note Progress Note: Renal Follow up for ZAHIRA/Metabolic acidosis Pt seen and examined in the ICU febrile overnight on cooling blanket on Vaospressin CVP 11 on Bicarb gtt Vital Signs Temperature 101.4 F H 07/22/16 06:00 Pulse Rate 87 07/22/16 09:30 Respiratory Rate 30 H 07/22/16 09:15 Blood Pressure 84/58 07/22/16 08:00 O2 Sat by Pulse Oximetry (%) 95 07/22/16 09:30 Intake & Output 07/19/16 07/20/16 07/21/16 07/22/16 23:59 23:59 23:59 23:59 Intake Total 5531 2810 2195.5 1294 Output Total 1960 1000 530 950 Balance 3571 1810 1665.5 344 Weight 178 lb 9.6 oz 185 lb 8 oz 190 lb 14.4 oz 194 lb 3.636 oz Gen: Sedated on the Vent. Cooling blanket in place HEENT: NC/AT, No JVD, ET Tube in place CVS: RRR, No M/R Lungs: Dec BS b/l lung andino Abd: Abd pain in palce, sutures appear clean. + distension Ext: 2+ LE edema : No bladder distension 07/22/16 05:35 07/22/16 05:35 Laboratory Tests 07/22/16 07/22/16 07/22/16 05:35 05:35 05:35 MCV 87.4 Lactic Acid 3.883 H* Calcium 6.6 L* Current Medications Acetaminophen (Ofirmev Injection -) 1,000 mg IVPB Q6H PRN PRN Reason: FEVER Last Admin: 07/22/16 09:43 Dose: 1,000 mg Chlorhexidine Gluconate (Hibiclens For Decolonization -) 1 applic TP HS AVERY Last Admin: 07/21/16 21:52 Dose: 1 applic Chlorhexidine Gluconate (Peridex -) 15 ml MM BID AVERY Last Admin: 07/22/16 09:31 Dose: 15 ml Dextrose (D50w (Vial) -) 50 ml IVPUSH Q15M PRN PRN Reason: BLOOD SUGAR < 60 Last Admin: 07/20/16 17:57 Dose: 50 ml Fluconazole (Diflucan 200 Mg/Ns Premixed Ivpb -) 100 mls @ 100 mls/hr IVPB DAILY AVERY Last Admin: 07/22/16 09:36 Dose: 100 mls/hr Norepinephrine Bitartrate 8, (000 mcg/ Dextrose) 500 mls @ 18.75 mls/hr IV TITR AVERY; 5 MCG/MIN PRN Reason: Protocol Last Admin: 07/22/16 02:46 Dose: Not Given Famotidine/Sodium Chloride (Pepcid 20 Mg Premixed Ivpb -) 50 mls @ 100 mls/hr IVPB BID AVERY Last Admin: 07/22/16 09:36 Dose: 100 mls/hr Sodium Bicarbonate 150 meq/ (Dextrose) 1,150 mls @ 75 mls/hr IV Q15H AVERY Last Admin: 07/22/16 02:46 Dose: 75 mls/hr Vasopressin 50 units/ Sodium (Chloride) 100 mls @ 6 mls/hr IVPB ASDIR AVERY; 3 UNITS/HR PRN Reason: Protocol Last Admin: 07/22/16 02:47 Dose: 12 mls/hr Meropenem 1 gm/ Dextrose 100 mls @ 100 mls/hr IVPB Q8H-IV AVERY PRN Reason: Protocol Last Admin: 07/22/16 09:37 Dose: 100 mls/hr Insulin Aspart (Novolog Vial Sliding Scale -) 1 vial SQ ACHS AVERY PRN Reason: Protocol Last Admin: 07/22/16 06:17 Dose: 4 units Phytonadione (Aqua Mephyton Injection -) 5 mg SQ DAILY [facility] Stop: 07/24/16 17:29 Last Admin: 07/22/16 09:35 Dose: 5 mg A/P 65 year old woman with PMhx of hypertension, hypercholesterolemia, diabetes mellitus who presented with Abd pain and found to have perforated Abd viscus s/ p emergent Sx now with Septic Shock, ZAHIRA and Metabolic Acidosis. #Anion gap Metabolic acidosis secondary to lactic acidosis and renal failure continues to have elevated lactic acid + renal failure continue bicab gtt as per ICU Trend bicarb and ph #Non-oliguric Acute Renal failure Cr slowly up trending over the past 72 hours likely related to renal hypoperfusion in setting of sepsis continue supportive care to maintain MAP and CVP at sepsis goals on bicarb gtt Trend urine output (slowly downtrending), if becomes oliguric can give Lasix challenge #Sepsis/Perforated Abd Viscus CT of the Abd showed ileus, colitis, distended gallbladder ICU Care Surgical Follow up Vent support CT of Abd today #Pleural effusions secondary to 3rd spacing with Low albumin and Sepsis continue vent support IVF continued for management of shock Thank you Cyril Tubbs DO
--- NOTE | 2016-07-22 12:03 | PN ---
Teaching Attending Note Name of Resident: Trevin Terrazas ATTENDING PHYSICIAN STATEMENT I saw and evaluated the patient. I reviewed the resident's note and discussed the case with the resident. I agree with the resident's findings and plan as documented. SUBJECTIVE: Pt seen and examined in the ICU. Remains intubated, poorly responsive off sedation. Persistently febrile, on vasopressin and bicarb gtts. OBJECTIVE: Last Vital Signs Temp Pulse Resp BP Pulse Ox 101.4 F H 81 30 H 95/63 95 07/22/16 06:00 07/22/16 10:00 07/22/16 10:00 07/22/16 10:00 07/22/16 09:30 Intake & Output 07/19/16 07/20/16 07/21/16 07/22/16 23:59 23:59 23:59 23:59 Intake Total 5531 2810 2195.5 1294 Output Total 1960 1000 530 950 Balance 3571 1810 1665.5 344 Weight 178 lb 9.6 oz 185 lb 8 oz 190 lb 14.4 oz 194 lb 3.636 oz Gen: intubated, poorly responsive Heart: RRR Lung: scattered rhonchi Abd: soft, dressings dry Ext: + edema, cyanotic extremities CBC, BMP 07/22/16 05:35 07/22/16 05:35 Active Medications Acetaminophen (Ofirmev Injection -) 1,000 mg IVPB Q6H PRN PRN Reason: FEVER Last Admin: 07/22/16 09:43 Dose: 1,000 mg Chlorhexidine Gluconate (Hibiclens For Decolonization -) 1 applic TP HS AVERY Last Admin: 07/21/16 21:52 Dose: 1 applic Chlorhexidine Gluconate (Peridex -) 15 ml MM BID AVERY Last Admin: 07/22/16 09:31 Dose: 15 ml Dextrose (D50w (Vial) -) 50 ml IVPUSH Q15M PRN PRN Reason: BLOOD SUGAR < 60 Last Admin: 07/20/16 17:57 Dose: 50 ml Fluconazole (Diflucan 200 Mg/Ns Premixed Ivpb -) 100 mls @ 100 mls/hr IVPB DAILY AVERY Last Admin: 07/22/16 09:36 Dose: 100 mls/hr Norepinephrine Bitartrate 8, (000 mcg/ Dextrose) 500 mls @ 18.75 mls/hr IV TITR AVERY; 5 MCG/MIN PRN Reason: Protocol Last Admin: 07/22/16 02:46 Dose: Not Given Famotidine/Sodium Chloride (Pepcid 20 Mg Premixed Ivpb -) 50 mls @ 100 mls/hr IVPB BID [facility] Last Admin: 07/22/16 09:36 Dose: 100 mls/hr Sodium Bicarbonate 150 meq/ (Dextrose) 1,150 mls @ 75 mls/hr IV Q15H AVERY Last Admin: 07/22/16 02:46 Dose: 75 mls/hr Vasopressin 50 units/ Sodium (Chloride) 100 mls @ 6 mls/hr IVPB ASDIR AVERY; 3 UNITS/HR PRN Reason: Protocol Last Admin: 07/22/16 02:47 Dose: 12 mls/hr Meropenem 1 gm/ Dextrose 100 mls @ 100 mls/hr IVPB Q8H-IV AVERY PRN Reason: Protocol Last Admin: 07/22/16 09:37 Dose: 100 mls/hr Insulin Aspart (Novolog Vial Sliding Scale -) 1 vial SQ ACHS AVERY PRN Reason: Protocol Last Admin: 07/22/16 06:17 Dose: 4 units Phytonadione (Aqua Mephyton Injection -) 5 mg SQ DAILY [facility] Stop: 07/24/16 17:29 Last Admin: 07/22/16 09:35 Dose: 5 mg ASSESSMENT AND PLAN: Perforated Duodenal Ulcer Peritonitis s/p ex-lap/omental patch repair 07/16 Acute Respiratory Failure Septic Shock Acute Kidney Injury Lactic Acidosis Leukopenia/Thrombocytopenia likely from sepsis DM - continue antibiotics - f/u cultures - check abdominal ultrasound, LFTs as gall bladder thickened on CT - IVF to keep CVP 8-12 - titrate pressors to maintain MAP >65, minimize IV piggybacks - monitor urine output, creatinine - will need lasix when hemodynamically stable - trend lactate - taper Fio2 to keep Spo2 >90% - monitor ABG - transfuse platelets if <20K, cryo if fibrinogen <100 - DVT/GI prophylaxis - continue ICU monitoring - prognosis is guarded, will need to start discussing with family advanced directives critical care time spent in reviewing chart, evaluating patient and formulating plan 40 min
[2016-07-22] MEDS ORDERED: HEMOQUE CONTROL SOLUTION ONE (13:07)
[2016-07-22] MEDS ORDERED: HEMOQUE TEST 1 EACH EACH ONE (13:08)
--- NOTE | 2016-07-22 14:14 | PN ---
Progress Note, Physician History of Present Illness: intubated sedated patient had ct chest done yesterday pressor support - Current Medication List Current Medications: Active Medications Acetaminophen (Ofirmev Injection -) 1,000 mg IVPB Q6H PRN PRN Reason: FEVER Last Admin: 07/22/16 09:43 Dose: 1,000 mg Chlorhexidine Gluconate (Hibiclens For Decolonization -) 1 applic TP HS AVERY Last Admin: 07/21/16 21:52 Dose: 1 applic Chlorhexidine Gluconate (Peridex -) 15 ml MM BID AVERY Last Admin: 07/22/16 09:31 Dose: 15 ml Dextrose (D50w (Vial) -) 50 ml IVPUSH Q15M PRN PRN Reason: BLOOD SUGAR < 60 Last Admin: 07/20/16 17:57 Dose: 50 ml Fluconazole (Diflucan 200 Mg/Ns Premixed Ivpb -) 100 mls @ 100 mls/hr IVPB DAILY AVERY Last Admin: 07/22/16 09:36 Dose: 100 mls/hr Norepinephrine Bitartrate 8, (000 mcg/ Dextrose) 500 mls @ 18.75 mls/hr IV TITR AVERY; 5 MCG/MIN PRN Reason: Protocol Last Admin: 07/22/16 02:46 Dose: Not Given Famotidine/Sodium Chloride (Pepcid 20 Mg Premixed Ivpb -) 50 mls @ 100 mls/hr IVPB BID AVERY Last Admin: 07/22/16 09:36 Dose: 100 mls/hr Sodium Bicarbonate 150 meq/ (Dextrose) 1,150 mls @ 75 mls/hr IV Q15H AVERY Last Admin: 07/22/16 02:46 Dose: 75 mls/hr Vasopressin 50 units/ Sodium (Chloride) 100 mls @ 6 mls/hr IVPB ASDIR AVERY; 3 UNITS/HR PRN Reason: Protocol Last Admin: 07/22/16 13:47 Dose: 12 mls/hr Meropenem 1 gm/ Dextrose 100 mls @ 100 mls/hr IVPB Q8H-IV AVERY PRN Reason: Protocol Last Admin: 07/22/16 09:37 Dose: 100 mls/hr Insulin Aspart (Novolog Vial Sliding Scale -) 1 vial SQ ACHS AVERY PRN Reason: Protocol Last Admin: 07/22/16 13:30 Dose: 4 units Phytonadione (Aqua Mephyton Injection -) 5 mg SQ DAILY AVERY Stop: 07/24/16 17:29 Last Admin: 07/22/16 09:35 Dose: 5 mg - Objective Vital Signs: Vital Signs Temperature 101.4 F H 07/22/16 06:00 Pulse Rate 82 07/22/16 13:47 Respiratory Rate 28 H 07/22/16 14:01 Blood Pressure 99/68 07/22/16 13:47 O2 Sat by Pulse Oximetry (%) 95 07/22/16 09:35 Constitutional: Yes: Other Cardiovascular: Yes: Regular Rate and Rhythm Respiratory: Yes: Intubated, Mechanically Ventilated Gastrointestinal: Yes: Other (absent bowel sounds) Edema: LUE: 2+, RUE: 2+, LLE: 2+, RLE: 2+ Integumentary: Yes: Other (patient now getting anasarca) Neurological: Yes: Other Labs: CBC, BMP 07/22/16 05:35 07/22/16 05:35 INR, PTT INR 1.59 (0.82-1.09) H 07/21/16 05:15 Fibrinogen 466.0 mg/dL (238-498) 07/22/16 05:35 - ....Imaging Cat Scan: Report Reviewed, Image Reviewed Assessment/Plan Problem List - Problems (1) Abdominal pain Code(s): R10.9 - UNSPECIFIED ABDOMINAL PAIN Qualifiers: Qualified Code(s): R10.33 - Periumbilical pain (2) Perforated abdominal viscus Code(s): [id number] - (3) Perforated viscus Code(s): R19.8 - OTH SYMPTOMS AND SIGNS INVOLVING THE DGSTV SYS AND ABDOMEN (4) Hypertension Code(s): I10 - ESSENTIAL (PRIMARY) HYPERTENSION Qualifiers: Qualified Code(s): I10 - Essential (primary) hypertension lactic acidosis fevers heam note noted generalized swelling plan continue current mgmt nutrition ct chest result noted monitor fever curves rest as per surgery/icu cc time 40 min
[2016-07-22] MEDS: CLINDAMYCIN 600MG PREMIX IVPB 50 ML IVPB SCH ×2 (14:58→17:12)
--- NOTE | 2016-07-22 19:15 | PN ---
Progress Note (short form) - Note Progress Note: Patient seen and examined Intubated , hypotensive on pressor support Family at bedside Last Vital Signs Temp Pulse Resp BP Pulse Ox 100.1 F H 81 28 H 88/54 100 07/22/16 18:00 07/22/16 18:00 07/22/16 18:53 07/22/16 18:00 07/22/16 17:23 Intubated Upper airway sounds RSR [id number]- dressing in place Extensive LE edema CBC, BMP 07/22/16 05:35 07/22/16 05:35 INR, PTT INR 1.59 (0.82-1.09) H 07/21/16 05:15 Fibrinogen 466.0 mg/dL (238-498) 07/22/16 05:35 Current Medications Generic Name Dose Route Start Last Admin Trade Name Freq PRN Reason Stop Dose Admin Acetaminophen 1,000 mg 07/19/16 15:43 07/22/16 09:43 Ofirmev Injection - IVPB 1,000 mg Q6H PRN Administration FEVER Chlorhexidine Gluconate 1 applic 07/16/16 22:00 07/21/16 21:52 Hibiclens For Decolonization - TP 1 applic HS AVERY Administration Chlorhexidine Gluconate 15 ml 07/21/16 10:00 07/22/16 09:31 Peridex - MM 15 ml BID AVERY Administration Dextrose 50 ml 07/20/16 11:54 07/20/16 17:57 D50w (Vial) - IVPUSH 50 ml Q15M PRN Administration BLOOD SUGAR < 60 Fluconazole 100 mls @ 100 mls/hr 07/17/16 10:00 07/22/16 09:36 Diflucan 200 Mg/Ns Premixed Ivpb - IVPB 100 mls/hr DAILY AVERY Administration Norepinephrine Bitartrate 8, 500 mls @ 18.75 mls/hr 07/16/16 23:15 07/22/16 02: 46 000 mcg/ Dextrose IV Not Given TITR AVERY Protocol 5 MCG/MIN Famotidine/Sodium Chloride 50 mls @ 100 mls/hr 07/17/16 10:00 07/22/16 09:36 Pepcid 20 Mg Premixed Ivpb - IVPB 100 mls/hr BID AVERY Administration Sodium Bicarbonate 150 meq/ 1,150 mls @ 75 mls/hr 07/19/16 14:30 07/22/16 02:46 Dextrose IV 75 mls/hr Q15H AVERY Administration Vasopressin 50 units/ Sodium 100 mls @ 6 mls/hr 07/19/16 14:16 07/22/16 16:38 Chloride IVPB Not Given ASDIR AVERY Protocol 3 UNITS/HR Meropenem 1 gm/ Dextrose 100 mls @ 100 mls/hr 07/19/16 18:00 07/22/16 17:12 IVPB 100 mls/hr Q8H-IV AVERY Administration Protocol Clindamycin Phosphate 50 mls @ 100 mls/hr 07/22/16 14:15 07/22/16 17:12 Cleocin 600 Mg Premix Ivpb - IVPB 100 mls/hr Q8H-IV AVERY Administration Insulin Aspart 1 vial 07/17/16 16:30 07/22/16 16:47 Novolog Vial Sliding Scale - SQ 4 units ACHS AVERY Administration Protocol Phytonadione 5 mg 07/21/16 17:30 07/22/16 09:35 Aqua Mephyton Injection - SQ 07/24/16 17:29 5 mg DAILY AVERY Administration Impression: Respiratory Failure Hyptensive S/P exploratory lap Perforation of duodenum Peritonitis Coagulopathy secondary to sepsis Thrombocytopenia secondary to sepsis Plan: Critical care management Pulmonary management Antibiotics per I.D. Transfuse platelets for bleeding or < 20K Transfuse cryoppt for fibrinogen; < 100 No response to Vitamin K - but reasonable in face of antibiotic therapy. Coagulopathy and thrombocytopenia secondary to sepsis
[2016-07-22] MEDS ORDERED: NOREPINEPHRINE BITARTRATE 4 MG/4 ML ML IV ONE (19:43)
[2016-07-22] MEDS: CHLORHEXIDINE GLUCONATE 4% CLEANSER FOR DECOLONIZATION TP SCH (22:41)
[2016-07-23 00:11] LABS: HEPARIN INDUCED PLATELET AB. 0.118 OD (0.000-0.400)
[2016-07-23] MEDS ORDERED: PT OWN MED DRAWER 7, Y5N ONE ×6 (01:45→23:17)
[2016-07-23] MEDS: MEROPENEM 1 GM in DEXTROSE 5%-WATER - 100 ML IVPB SCH ×3 (01:48→17:09)
[2016-07-23] MEDS: NOREPINEPHRINE BITARTRATE 8,000 MCG in DEXTROSE 5%-WATER - 492 ML IV SCH ×2 (01:48→21:02)
[2016-07-23] MEDS: CLINDAMYCIN 600MG PREMIX IVPB 50 ML IVPB SCH ×3 (02:58→17:10)
[2016-07-23] MEDS: VASOPRESSIN 50 UNITS in SODIUM CHLORIDE 97.5 ML IVPB SCH ×3 (03:00→21:02)
[2016-07-23 06:20] LABS: MCH 28.9 pg (25.7-33.7); MCHC 33.2 g/dl (32.0-36.0); MEAN PLT VOLUME 9.9 fl (7.5-11.1)
[2016-07-23] MEDS: INSULIN SLIDING SCALE (NOVOLOG) 1 VIAL SQ SCH ×4 (06:21→21:10)
[2016-07-23 06:51] LABS: COCKROFT - GAULT 53.55; CREATININE 1.4 mg/dL (0.55-1.02); MAGNESIUM 1.6 mg/dL (1.8-2.4); PHOSPHOROUS 3.3 mg/dL (2.5-4.9)
[2016-07-23 06:53] LABS: BILIRUBIN,TOTAL 0.6 mg/dL (0.2-1.0); TOT PROT 3.5 g/dl (6.4-8.2)
[2016-07-23 07:11] LABS: CALCIUM 6.5 mg/dL (8.5-10.1)
--- NOTE | 2016-07-23 07:22 | PN ---
Physical Exam: SUBJECTIVE: Patient seen and examined. remains unresponsive off sedation. Yesterday afternoon had an episode of hypotension requiring addition of levophed. urine output increased since yesterday. OBJECTIVE: Vital Signs Period Temp Pulse Resp BP Sys/Major Pulse Ox Last 24 Hr 98.6 F-100.5 F 81-95 26-30 73-139/52-73 95-100 EYES: pinpoint pupils, edematous sclera, sclera anicteric. ENT: nares patent with NGT in right nostril draining thick green fluid, oropharynx with ET in place. dry mucous membranes. NECK: Trachea midline. LUNGS: diffuse rhonchi anteriorly bilaterally, no wheezes, no crackles. HEART: Regular rate and rhythm, S1, S2 without murmur, rub or gallop. ABDOMEN: distended, firm, scant serous discharge from midline inscion, sump pump in place with green fluid discharge. hypoactive bowel sounds. several ruptured vesicles throughout abdomen with scant serous discharge, covered in xeroform EXTREMITIES: nonpalpable pulses in DP/TP/radial b/l, , cool, anasarca. fingernails are blue. SKIN: multiple ruptured vesicles throughout body (abdomen, inner thighs, neck and arms), multiple fluid filled vesicles throughout body, covered in xeroform NEUROLOGICAL: areflexic at brachioradialis and knee jerk, non responsive to verbal or noxious stimuli Laboratory Results - last 24 hr 07/16/16 07/19/16 07/22/16 17:45 05:30 05:35 Neutrophils % 85.0 H Lymphocytes % 11.0 Monocytes % 3.0 L D Differential Comment Manual diff done Platelet Estimate Markedly decreased VBG pH POC VBG pCO2 POC VBG pO2 Mixed VBG HCO3 Sodium Potassium Chloride Carbon Dioxide Anion Gap BUN Creatinine Creat Clearance w eGFR POC Glucometer Random Glucose Calcium Phosphorus Magnesium Total Bilirubin AST ALT Alkaline Phosphatase Total Protein Albumin Hep-Induced Plt Ab Rapid 0.118 Crossmatch See Detail 07/22/16 07/22/16 07/22/16 06:15 07:20 13:19 Neutrophils % Lymphocytes % Monocytes % Differential Comment Platelet Estimate VBG pH 7.39 POC VBG pCO2 32.9 L POC VBG pO2 34.6 Mixed VBG HCO3 19.6 Sodium Potassium Chloride Carbon Dioxide Anion Gap BUN Creatinine Creat Clearance w eGFR POC Glucometer 206.99557 202.67616 Random Glucose Calcium Phosphorus Magnesium Total Bilirubin AST ALT Alkaline Phosphatase Total Protein Albumin Hep-Induced Plt Ab Rapid Crossmatch 07/22/16 07/22/16 07/23/16 16:16 22:48 05:15 Neutrophils % Lymphocytes % Monocytes % Differential Comment Platelet Estimate VBG pH POC VBG pCO2 POC VBG pO2 Mixed VBG HCO3 Sodium 135 L Potassium 3.3 L D Chloride 96 L Carbon Dioxide 24 D Anion Gap 15 BUN 33 H Creatinine 1.4 H Creat Clearance w eGFR 37.51 POC Glucometer 208.83486 129.91129 Random Glucose 91 D Calcium 6.5 L* Phosphorus 3.3 Magnesium 1.6 L Total Bilirubin 0.6 D AST 224 H D ALT 80 H D Alkaline Phosphatase 84 Total Protein 3.5 L Albumin 1.0 L Hep-Induced Plt Ab Rapid Crossmatch 07/23/16 05:43 Neutrophils % Lymphocytes % Monocytes % Differential Comment Platelet Estimate VBG pH POC VBG pCO2 POC VBG pO2 Mixed VBG HCO3 Sodium Potassium Chloride Carbon Dioxide Anion Gap BUN Creatinine Creat Clearance w eGFR POC Glucometer 113.69996 Random Glucose Calcium Phosphorus Magnesium Total Bilirubin AST ALT Alkaline Phosphatase Total Protein Albumin Hep-Induced Plt Ab Rapid Crossmatch Active Medications Generic Name Dose Route Start Last Admin Trade Name Freq PRN Reason Stop Dose Admin Acetaminophen 1,000 mg 07/19/16 15:43 07/22/16 09:43 Ofirmev Injection - IVPB 1,000 mg Q6H PRN Administration FEVER Chlorhexidine Gluconate 1 applic 07/16/16 22:00 07/22/16 22:41 Hibiclens For Decolonization - TP 1 applic HS [facility] Administration Chlorhexidine Gluconate 15 ml 07/21/16 10:00 07/22/16 22:42 Peridex - MM 15 ml BID [facility] Administration Dextrose 50 ml 07/20/16 11:54 07/20/16 17:57 D50w (Vial) - IVPUSH 50 ml Q15M PRN Administration BLOOD SUGAR < 60 Fluconazole 100 mls @ 100 mls/hr 07/17/16 10:00 07/22/16 09:36 Diflucan 200 Mg/Ns Premixed Ivpb - IVPB 100 mls/hr DAILY [facility] Administration Norepinephrine Bitartrate 8, 500 mls @ 18.75 mls/hr 07/16/16 23:15 07/23/16 01: 48 000 mcg/ Dextrose IV 18.75 mls/hr TITR [facility] Administration Protocol 5 MCG/MIN Famotidine/Sodium Chloride 50 mls @ 100 mls/hr 07/17/16 10:00 07/22/16 22:42 Pepcid 20 Mg Premixed Ivpb - IVPB 100 mls/hr BID [facility] Administration Sodium Bicarbonate 150 meq/ 1,150 mls @ 75 mls/hr 07/19/16 14:30 07/22/16 22:41 Dextrose IV 75 mls/hr Q15H [facility] Administration Vasopressin 50 units/ Sodium 100 mls @ 6 mls/hr 07/19/16 14:16 07/23/16 03:00 Chloride IVPB 4.8 mls/hr ASDIR [facility] Administration Protocol 3 UNITS/HR Meropenem 1 gm/ Dextrose 100 mls @ 100 mls/hr 07/19/16 18:00 07/23/16 01:48 IVPB 100 mls/hr Q8H-IV [facility] Administration Protocol Clindamycin Phosphate 50 mls @ 100 mls/hr 07/22/16 14:15 07/23/16 02:58 Cleocin 600 Mg Premix Ivpb - IVPB 100 mls/hr Q8H-IV [facility] Administration Insulin Aspart 1 vial 07/17/16 16:30 07/23/16 06:21 Novolog Vial Sliding Scale - SQ Not Given ACHS [facility] Protocol Phytonadione 5 mg 07/21/16 17:30 07/22/16 09:35 Aqua Mephyton Injection - SQ 07/24/16 17:29 5 mg DAILY [facility] Administration IMAGING echo with normal LV systolic fxn, E/A reversal consistent with not diagnostic of poor LV compliance, right venticular systolic pressure is elevated 30- 40mmhg. no pericardial effusion - chest CT - likely atelectasis; patchy peripheral infiltrates - abd/pelvis CT with po contrast: no discrete abscess, distended gallbladder, pericholecytic fluid, thickened colon, mesenteric edema, colitis. - abdominal ultrasound: no gallbladder calculi, no biliarry dilation, hepatomegaly and pericholecystic fluid. Intake & Output 07/20/16 07/21/16 07/22/16 07/23/16 23:59 23:59 23:59 23:59 Intake Total 2810 2195.5 2888 2373.6 Output Total 8148 753 2095 750 Balance 1810 1665.5 348 1623.6 Weight 185 lb 8 oz 190 lb 14.4 oz 194 lb 3.636 oz 194 lb 0.108 oz ABG Results ABG pH 7.57 (7.35-7.45) H D 07/23/16 07:15 ABG pCO2 at Pt Temp 26.5 mmHg (35-45) L 07/23/16 07:15 ABG pO2 at Pt Temp 117.0 mmHg (80-100) H D 07/23/16 07:15 ABG HCO3 24.6 meq/L (22-26) 07/23/16 07:15 ABG O2 Sat (Measured) 98.8 % (90-98.9) 07/23/16 07:15 ABG O2 Content 14.4 % vol (15-22) L 07/23/16 07:15 ABG Base Excess 3.3 meq/l (-2-2) H 07/23/16 07:15 ASSESSMENT/PLAN: 65 yr old woman with HTN, dementia, NIDDM II admitted to ICU with septic shock secondary to perforated duodenal ulcer and peritonitis. prognosis gaurded - dr. Miranda to speak with about prognosis. Cardivascular Hypotensive requiring pressors - acute hypotensive episode yesterday afternoon - vasopressin 2.5units/hr + levophed 8mcg, plan to titrate off pressors, maintain CVP goal 8-12 - CVP decreased to 7 this morning, urine output improved last 24hrs. - maintain goal MAP>65, current MAP 75 - bolus NS as needed to maintain BP while titrating off levophed Pulmonary endotracheal tube placed 07/16 fio2 50%, sat 100%, RR 14, titrate to maintain spo2 >90% - decreased RR due to alkalosis on ABG Gastrointestinal; s/p repair perforated duodenal ulcer 07/16, addition of cleocin yesterday - IV diflucan 200mg Ivpb q24hr - day 7 - Meropenem IV 1gm q8hr - day 4 - Cleocin - 600gm q8h - day 1 - pepcid ivpb 20g daily Renal - ZAHIRA (decrease in Cr today) - lactic acidosis continues - discontinue bicarb drip - ABG with alkalosis - Bacon placed in ED pre-op 5/10; 24hr output: 750cc, net positive, improved urine output - corrected calcium 8.5 - repleted Mag/potassium today - consult: Dr. Tubbs; Dose all meds for Cr Cl less then 30 Infectious Disease, continous fevers on abx - consulted - meropenem + diflucan + cleocin - monitor for fevers, tylenol IVPB 1gm q6hr, - fevers decreased, off cooling blanket - lactic acidosis; continue to trend Endocrine NIDDM II - currently NPO - D5 Iv push 1 amp when BGM <60 - BGM q6hrs w/ goal 140-180, NISS Hematologic - thrombocytopenia likely due to sepsis, r/o DIC - daily fibrinogen levels/coags , if fibrinogen level <100 consider cryoppt - addition of platelets and prbc's today due to decreased Hgb/platelet levels - vit K IM 5mg sq daily for 3 doses.(last dose 07/24) - goal to maintain plts>20,000 - consult Dr. Church Neurologic - patient off sedation, however non-responsive Dementia wrist restraints Diet: NPO DVT- SCD' given thrombocytopenia Visit type - Emergency Visit Emergency Visit: No - New Patient This patient is new to me today: No - Critical Care Critical Care patient: Yes Total Critical Care Time (in minutes): 40 Critical Care Statement: The care of this patient involved high complexity decision making to prevent further life threatening deterioration of the patient 's condition and/or to evalute & treat vital organ system(s) failure or risk of failure.
[2016-07-23 07:30] LABS: PLATELET COUNT 17 K/MM3 (134-434)
[2016-07-23 07:43] LABS: ARTERIAL BLD GAS O2 SATURATION 98.8 % (90-98.9); ARTERIAL BLOOD GAS BASE EXCESS 3.3 meq/l (-2-2); ARTERIAL BLOOD GAS HCO3 24.6 meq/L (22-26); ARTERIAL BLOOD GAS pH 7.57 (7.35-7.45)
[2016-07-23 07:44] LABS: ALLENS TEST POSITIVE; ART PUNCT SITE RIGHT RADIAL; LPM/O2% 50%; MECH. VENT. YES; PT. ON O2? YES; TYPE OF O2 VENT; VENT RATE 26; VT/PRESS 400
[2016-07-23] MEDS ORDERED: KCL 10 MEQ IVPB 100 ML IVPB SCH (08:15)
[2016-07-23] MEDS ORDERED: MAGNESIUM SULF 50% (8.12 MEQ/2 ML-1 GM VIAL) IVPB ONE (08:15)
[2016-07-23] MEDS: FLUCONAZOLE 200 MG/NS 100 ML IVPB SCH (09:19)
[2016-07-23] MEDS: FAMOTIDINE 20 MG/50 ML IVPB 50 ML IVPB SCH ×2 (09:19→21:01)
[2016-07-23] MEDS: PHYTONADIONE 10 MG/1 ML AMP SQ SCH (09:20)
[2016-07-23] MEDS: CHLORHEXIDINE GLUCONATE 0.12% 15ML CUP MM SCH ×2 (09:22→21:10)
[2016-07-23] MEDS: SODIUM BICARBONATE 8.4% - 150 MEQ in DEXTROSE 5%-WATER - 1,000 ML IV SCH (09:24)
--- NOTE | 2016-07-23 09:55 | PN ---
Progress Note, Physician Chief Complaint: unrespoding History of Present Illness: On respirator - Current Medication List Current Medications: Active Medications Acetaminophen (Ofirmev Injection -) 1,000 mg IVPB Q6H PRN PRN Reason: FEVER Last Admin: 07/22/16 09:43 Dose: 1,000 mg Chlorhexidine Gluconate (Hibiclens For Decolonization -) 1 applic TP HS [facility] Last Admin: 07/22/16 22:41 Dose: 1 applic Chlorhexidine Gluconate (Peridex -) 15 ml MM BID [facility] Last Admin: 07/23/16 09:22 Dose: 15 ml Dextrose (D50w (Vial) -) 50 ml IVPUSH Q15M PRN PRN Reason: BLOOD SUGAR < 60 Last Admin: 07/20/16 17:57 Dose: 50 ml Fluconazole (Diflucan 200 Mg/Ns Premixed Ivpb -) 100 mls @ 100 mls/hr IVPB DAILY [facility] Last Admin: 07/23/16 09:19 Dose: 100 mls/hr Norepinephrine Bitartrate 8, (000 mcg/ Dextrose) 500 mls @ 18.75 mls/hr IV TITR [facility]; 5 MCG/MIN PRN Reason: Protocol Last Admin: 07/23/16 01:48 Dose: 18.75 mls/hr Famotidine/Sodium Chloride (Pepcid 20 Mg Premixed Ivpb -) 50 mls @ 100 mls/hr IVPB BID [facility] Last Admin: 07/23/16 09:19 Dose: 100 mls/hr Sodium Bicarbonate 150 meq/ (Dextrose) 1,150 mls @ 75 mls/hr IV Q15H [facility] Last Admin: 07/23/16 09:24 Dose: 75 mls/hr Vasopressin 50 units/ Sodium (Chloride) 100 mls @ 6 mls/hr IVPB ASDIR [facility]; 3 UNITS/HR PRN Reason: Protocol Last Admin: 07/23/16 03:00 Dose: 4.8 mls/hr Meropenem 1 gm/ Dextrose 100 mls @ 100 mls/hr IVPB Q8H-IV [facility] PRN Reason: Protocol Last Admin: 07/23/16 09:19 Dose: 100 mls/hr Clindamycin Phosphate (Cleocin 600 Mg Premix Ivpb -) 50 mls @ 100 mls/hr IVPB Q8H-IV [facility] Last Admin: 07/23/16 02:58 Dose: 100 mls/hr Insulin Aspart (Novolog Vial Sliding Scale -) 1 vial SQ ACHS [facility] PRN Reason: Protocol Last Admin: 07/23/16 06:21 Dose: Not Given Phytonadione (Aqua Mephyton Injection -) 5 mg SQ DAILY [facility] Stop: 07/24/16 17:29 Last Admin: 07/23/16 09:20 Dose: 5 mg - Objective Vital Signs: Vital Signs Temperature 98.6 F 07/23/16 06:00 Pulse Rate 94 H 07/23/16 06:00 Respiratory Rate 26 H 07/23/16 06:54 Blood Pressure 111/71 07/23/16 06:00 O2 Sat by Pulse Oximetry (%) 100 07/22/16 20:44 Eyes: Yes: Other (pin point) Neck: Yes: Supple Cardiovascular: Yes: WNL Respiratory: Yes: Mechanically Ventilated Gastrointestinal: Yes: Hypoactive Bowel Sounds ...Rectal Exam: Yes: Deferred Edema: Yes Edema: LLE: 1+, RLE: 1+ Neurological: Yes: Unresponsive Labs: CBC, BMP 07/23/16 05:15 07/23/16 05:15 INR, PTT INR 1.59 (0.82-1.09) H 07/21/16 05:15 Fibrinogen 466.0 mg/dL (238-498) 07/22/16 05:35 Assessment/Plan Poor prgnosis ,will talk to her
--- NOTE | 2016-07-23 10:31 | PN ---
Progress Note (short form) - Note Progress Note: Renal Follow up for ZAHIRA/Metabolic acidosis Pt seen and examined in the ICU afebrile since 6pm remains on pressers CVP is 8 good urine output overnight on bicarb gtt Vital Signs Temperature 97.9 F 07/23/16 10:00 Pulse Rate 104 H 07/23/16 10:00 Respiratory Rate 14 07/23/16 10:00 Blood Pressure 129/81 07/23/16 10:00 O2 Sat by Pulse Oximetry (%) 100 07/22/16 20:44 Intake & Output 07/20/16 07/21/16 07/22/16 07/23/16 23:59 23:59 23:59 23:59 Intake Total 2810 2195.5 2888 1469.6 Output Total 7301 704 2454 750 Balance 1810 1665.5 348 719.6 Weight 185 lb 8 oz 190 lb 14.4 oz 194 lb 3.636 oz 194 lb 0.108 oz Gen: Sedated on the Vent. Cooling blanket in place HEENT: NC/AT, No JVD, ET Tube in place CVS: RRR, No M/R Lungs: Dec BS b/l lung andino Abd: Abd pain in palce, sutures appear clean. + distension Ext: 2+ LE edema : No bladder distension CBC, BMP 07/23/16 05:15 07/23/16 05:15 Laboratory Tests 07/23/16 07/23/16 07/23/16 05:15 05:15 07:15 ABG pH 7.57 H D ABG pCO2 at Pt Temp 26.5 L ABG pO2 at Pt Temp 117.0 H D Lactic Acid 3.980 H* Calcium 6.5 L* Phosphorus 3.3 Magnesium 1.6 L Albumin 1.0 L Current Medications Acetaminophen (Ofirmev Injection -) 1,000 mg IVPB Q6H PRN PRN Reason: FEVER Last Admin: 07/22/16 09:43 Dose: 1,000 mg Chlorhexidine Gluconate (Hibiclens For Decolonization -) 1 applic TP HS [facility] Last Admin: 07/22/16 22:41 Dose: 1 applic Chlorhexidine Gluconate (Peridex -) 15 ml MM BID [facility] Last Admin: 07/23/16 09:22 Dose: 15 ml Dextrose (D50w (Vial) -) 50 ml IVPUSH Q15M PRN PRN Reason: BLOOD SUGAR < 60 Last Admin: 07/20/16 17:57 Dose: 50 ml Fluconazole (Diflucan 200 Mg/Ns Premixed Ivpb -) 100 mls @ 100 mls/hr IVPB DAILY [facility] Last Admin: 07/23/16 09:19 Dose: 100 mls/hr Norepinephrine Bitartrate 8, (000 mcg/ Dextrose) 500 mls @ 18.75 mls/hr IV TITR [facility]ERY; 5 MCG/MIN PRN Reason: Protocol Last Admin: 07/23/16 01:48 Dose: 18.75 mls/hr Famotidine/Sodium Chloride (Pepcid 20 Mg Premixed Ivpb -) 50 mls @ 100 mls/hr IVPB BID [facility] Last Admin: 07/23/16 09:19 Dose: 100 mls/hr Sodium Bicarbonate 150 meq/ (Dextrose) 1,150 mls @ 75 mls/hr IV Q15H [facility] Last Admin: 07/23/16 09:24 Dose: 75 mls/hr Vasopressin 50 units/ Sodium (Chloride) 100 mls @ 6 mls/hr IVPB ASDIR [facility]; 3 UNITS/HR PRN Reason: Protocol Last Admin: 07/23/16 03:00 Dose: 4.8 mls/hr Meropenem 1 gm/ Dextrose 100 mls @ 100 mls/hr IVPB Q8H-IV [facility] PRN Reason: Protocol Last Admin: 07/23/16 09:19 Dose: 100 mls/hr Clindamycin Phosphate (Cleocin 600 Mg Premix Ivpb -) 50 mls @ 100 mls/hr IVPB Q8H-IV [facility] Last Admin: 07/23/16 02:58 Dose: 100 mls/hr Insulin Aspart (Novolog Vial Sliding Scale -) 1 vial SQ ACHS [facility] PRN Reason: Protocol Last Admin: 07/23/16 06:21 Dose: Not Given Phytonadione (Aqua Mephyton Injection -) 5 mg SQ DAILY [facility] Stop: 07/24/16 17:29 Last Admin: 07/23/16 09:20 Dose: 5 mg A/P 65 year old woman with PMhx of hypertension, hypercholesterolemia, diabetes mellitus who presented with Abd pain and found to have perforated Abd viscus s/ p emergent Sx now with Septic Shock, ZAHIRA and Metabolic Acidosis. #Anion gap Metabolic acidosis secondary to lactic acidosis and renal failure ph is now > 7.5 d/c bicarb gtt lactic acidosis persists, continue supportive care with IVF and vasopressers #Non-oliguric Acute Renal failure Cr remains elevated but pt with good urine output continue supportive care to keep MAP > 65 and CVP 10-12 Trend renal function and electrolytes daily #Sepsis/Perforated Abd Viscus CT of the Abd showed ileus, colitis, distended gallbladder ICU Care Surgical Follow up Vent support IVF to keep CVP at gaol will need diuresis given 3rd spacing once hemodynamically stable Thank you Cyril Tubbs DO
[2016-07-23] MEDS ORDERED: SODIUM CHLORIDE 500 ML IV STA (11:26)
--- NOTE | 2016-07-23 12:16 | PN ---
Teaching Attending Note Name of Resident: Trevin Terrazas ATTENDING PHYSICIAN STATEMENT I saw and evaluated the patient. I reviewed the resident's note and discussed the case with the resident. I agree with the resident's findings and plan as documented. SUBJECTIVE: Pt seen and examined in the ICU. Remains intubated, unresponsive off sedation. On levophed and vasopressin gtts. Fever curve finally trending down. OBJECTIVE: Last Vital Signs Temp Pulse Resp BP Pulse Ox 97.9 F 104 H 14 129/81 100 07/23/16 10:00 07/23/16 10:00 07/23/16 10:00 07/23/16 10:00 07/22/16 20:44 Intake & Output 07/20/16 07/21/16 07/22/16 07/23/16 23:59 23:59 23:59 23:59 Intake Total 2810 2195.5 2888 1469.6 Output Total 3891 071 4410 750 Balance 1810 1665.5 348 719.6 Weight 185 lb 8 oz 190 lb 14.4 oz 194 lb 3.636 oz 194 lb 0.108 oz Gen: intubated, unresponsive Heart: tachycardic, regular Lung: scattered rhonchi Abd: soft, dressings intact Ext: + edema CBC, BMP 07/23/16 05:15 07/23/16 05:15 Active Medications Acetaminophen (Ofirmev Injection -) 1,000 mg IVPB Q6H PRN PRN Reason: FEVER Last Admin: 07/22/16 09:43 Dose: 1,000 mg Chlorhexidine Gluconate (Hibiclens For Decolonization -) 1 applic TP HS [facility] Last Admin: 07/22/16 22:41 Dose: 1 applic Chlorhexidine Gluconate (Peridex -) 15 ml MM BID [facility] Last Admin: 07/23/16 09:22 Dose: 15 ml Dextrose (D50w (Vial) -) 50 ml IVPUSH Q15M PRN PRN Reason: BLOOD SUGAR < 60 Last Admin: 07/20/16 17:57 Dose: 50 ml Fluconazole (Diflucan 200 Mg/Ns Premixed Ivpb -) 100 mls @ 100 mls/hr IVPB DAILY [facility] Last Admin: 07/23/16 09:19 Dose: 100 mls/hr Norepinephrine Bitartrate 8, (000 mcg/ Dextrose) 500 mls @ 18.75 mls/hr IV TITR [facility]; 5 MCG/MIN PRN Reason: Protocol Last Admin: 07/23/16 01:48 Dose: 18.75 mls/hr Famotidine/Sodium Chloride (Pepcid 20 Mg Premixed Ivpb -) 50 mls @ 100 mls/hr IVPB BID [facility] Last Admin: 07/23/16 09:19 Dose: 100 mls/hr Vasopressin 50 units/ Sodium (Chloride) 100 mls @ 6 mls/hr IVPB ASDIR [facility]; 3 UNITS/HR PRN Reason: Protocol Last Admin: 07/23/16 03:00 Dose: 4.8 mls/hr Meropenem 1 gm/ Dextrose 100 mls @ 100 mls/hr IVPB Q8H-IV [facility] PRN Reason: Protocol Last Admin: 07/23/16 09:19 Dose: 100 mls/hr Clindamycin Phosphate (Cleocin 600 Mg Premix Ivpb -) 50 mls @ 100 mls/hr IVPB Q8H-IV [facility] Last Admin: 07/23/16 02:58 Dose: 100 mls/hr Sodium Chloride (Normal Saline -) 500 mls @ 500 mls/hr IV ASDIR [facility] Stop: 07/23/16 12:25 Insulin Aspart (Novolog Vial Sliding Scale -) 1 vial SQ ACHS [facility] PRN Reason: Protocol Last Admin: 07/23/16 06:21 Dose: Not Given Phytonadione (Aqua Mephyton Injection -) 5 mg SQ DAILY [facility] Stop: 07/24/16 17:29 Last Admin: 07/23/16 09:20 Dose: 5 mg ASSESSMENT AND PLAN: Perforated Duodenal Ulcer Peritonitis s/p ex-lap/omental patch repair 07/16 Acute Respiratory Failure Septic Shock Acute Kidney Injury Lactic Acidosis Leukopenia/Thrombocytopenia likely from sepsis DM - continue antibiotics - f/u cultures - IVF to keep CVP 8-12 - d/c bicarb gtt - titrate pressors to maintain MAP >65, minimize IV piggybacks - monitor urine output, creatinine - will need lasix when hemodynamically stable - trend lactate - taper Fio2 to keep Spo2 >90% - monitor ABG - transfuse platelets if <20K, cryo if fibrinogen <100 - DVT/GI prophylaxis - continue ICU monitoring - prognosis is guarded, will need to start discussing with family advanced directives critical care time spent in reviewing chart, evaluating patient and formulating plan 40 min
--- NOTE | 2016-07-23 12:52 | PN ---
Progress Note, Physician History of Present Illness: intubated fever curves stabilizing mentally minimally responsive generalized edema - Current Medication List Current Medications: Active Medications Acetaminophen (Ofirmev Injection -) 1,000 mg IVPB Q6H PRN PRN Reason: FEVER Last Admin: 07/22/16 09:43 Dose: 1,000 mg Chlorhexidine Gluconate (Hibiclens For Decolonization -) 1 applic TP HS [facility] Last Admin: 07/22/16 22:41 Dose: 1 applic Chlorhexidine Gluconate (Peridex -) 15 ml MM BID [facility] Last Admin: 07/23/16 09:22 Dose: 15 ml Dextrose (D50w (Vial) -) 50 ml IVPUSH Q15M PRN PRN Reason: BLOOD SUGAR < 60 Last Admin: 07/20/16 17:57 Dose: 50 ml Fluconazole (Diflucan 200 Mg/Ns Premixed Ivpb -) 100 mls @ 100 mls/hr IVPB DAILY [facility] Last Admin: 07/23/16 09:19 Dose: 100 mls/hr Norepinephrine Bitartrate 8, (000 mcg/ Dextrose) 500 mls @ 18.75 mls/hr IV TITR [facility]; 5 MCG/MIN PRN Reason: Protocol Last Admin: 07/23/16 01:48 Dose: 18.75 mls/hr Famotidine/Sodium Chloride (Pepcid 20 Mg Premixed Ivpb -) 50 mls @ 100 mls/hr IVPB BID [facility] Last Admin: 07/23/16 09:19 Dose: 100 mls/hr Vasopressin 50 units/ Sodium (Chloride) 100 mls @ 6 mls/hr IVPB ASDIR [facility]; 3 UNITS/HR PRN Reason: Protocol Last Admin: 07/23/16 03:00 Dose: 4.8 mls/hr Meropenem 1 gm/ Dextrose 100 mls @ 100 mls/hr IVPB Q8H-IV [facility] PRN Reason: Protocol Last Admin: 07/23/16 09:19 Dose: 100 mls/hr Clindamycin Phosphate (Cleocin 600 Mg Premix Ivpb -) 50 mls @ 100 mls/hr IVPB Q8H-IV [facility] Last Admin: 07/23/16 02:58 Dose: 100 mls/hr Insulin Aspart (Novolog Vial Sliding Scale -) 1 vial SQ ACHS [facility] PRN Reason: Protocol Last Admin: 07/23/16 06:21 Dose: Not Given Phytonadione (Aqua Mephyton Injection -) 5 mg SQ DAILY [facility] Stop: 07/24/16 17:29 Last Admin: 07/23/16 09:20 Dose: 5 mg - Objective Vital Signs: Vital Signs Temperature 97.9 F 07/23/16 10:00 Pulse Rate 104 H 07/23/16 10:00 Respiratory Rate 26 H 07/23/16 12:33 Blood Pressure 129/81 07/23/16 10:00 O2 Sat by Pulse Oximetry (%) 100 07/23/16 08:00 Constitutional: Yes: Other Cardiovascular: Yes: S1, S2 Respiratory: Yes: Intubated, Mechanically Ventilated Gastrointestinal: Yes: Other Musculoskeletal: Yes: Other Extremities: Yes: Other Edema: LUE: 2+, RUE: 2+, LLE: 2+, RLE: 2+ Integumentary: Yes: Other (blisters on ext due to fluid) Wound/Incision: Yes: Other Neurological: Yes: Other Labs: CBC, BMP 07/23/16 05:15 07/23/16 05:15 INR, PTT INR 1.59 (0.82-1.09) H 07/21/16 05:15 Fibrinogen 466.0 mg/dL (238-498) 07/22/16 05:35 Assessment/Plan Problem List - Problems (1) Abdominal pain Code(s): R10.9 - UNSPECIFIED ABDOMINAL PAIN Qualifiers: Qualified Code(s): R10.33 - Periumbilical pain (2) Perforated abdominal viscus Code(s): UUE1793 - (3) Perforated viscus Code(s): R19.8 - OTH SYMPTOMS AND SIGNS INVOLVING THE DGSTV SYS AND ABDOMEN (4) Hypertension Code(s): I10 - ESSENTIAL (PRIMARY) HYPERTENSION Qualifiers: Qualified Code(s): I10 - Essential (primary) hypertension lactic acidosis fevers heam note noted generalized swelling plan continue current mgmt nutrition patient mentally not responding - monitor ABG - transfuse platelets if <20K, cryo if fibrinogen <100 - DVT/GI prophylaxis prognosis poor cc time 40 min
--- NOTE | 2016-07-23 17:18 | PN ---
Progress Note (short form) - Note Progress Note: PAtient seen and examined intubated/sedated Last Vital Signs Temp Pulse Resp BP Pulse Ox 97.9 F 90 25 H 118/75 96 07/23/16 12:00 07/23/16 14:00 07/23/16 15:04 07/23/16 14:00 07/23/16 10:05 intubated/sedated anasarca Cor: RSR, No murmurs, No gallops Lungs: Clear to P&A Abd: Soft, Normal bowel sounds, No organomegaly Ext:anasarca, cutaneous blebs Abnormal Lab Results 07/16/16 07/23/16 07/23/16 17:45 05:15 05:15 RBC 2.67 L Hgb 7.7 L Hct 23.2 L Plt Count 17 L* D ABG pH ABG pCO2 at Pt Temp ABG pO2 at Pt Temp ABG O2 Content ABG Base Excess Sodium 135 L Potassium 3.3 L D Chloride 96 L BUN 33 H Creatinine 1.4 H Lactic Acid Calcium 6.5 L* Magnesium 1.6 L AST 224 H D ALT 80 H D Total Protein 3.5 L Albumin 1.0 L Crossmatch See Detail 07/23/16 07/23/16 07/23/16 05:15 07:15 07:37 RBC Hgb Hct Plt Count ABG pH 7.57 H D ABG pCO2 at Pt Temp 26.5 L ABG pO2 at Pt Temp 117.0 H D ABG O2 Content 14.4 L ABG Base Excess 3.3 H Sodium Potassium Chloride BUN Creatinine Lactic Acid 3.980 H* Calcium Magnesium AST ALT Total Protein Albumin Crossmatch See Detail Home Medication List Medication Instructions Recorded Confirmed Type Glipizide Xl [Glucotrol Xl -] 5 mg PO DAILY 01/30/16 07/16/16 History Lisinopril [Zestril] 30 mg PO DAILY 01/30/16 07/16/16 History Metformin HCl [Metformin HCl ER] 1,000 mg PO BIDAC 01/30/16 07/16/16 History Simvastatin 10 mg PO HS 01/30/16 07/16/16 History Aspirin Coated [Ecotrin -] 81 mg PO DAILY 04/15/16 07/16/16 History Active Medications Generic Name Dose Route Start Last Admin Trade Name Freq PRN Reason Stop Dose Admin Acetaminophen 1,000 mg 07/19/16 15:43 07/22/16 09:43 Ofirmev Injection - IVPB 1,000 mg Q6H PRN Administration FEVER Chlorhexidine Gluconate 1 applic 07/16/16 22:00 07/22/16 22:41 Hibiclens For Decolonization - TP 1 applic HS AVERY Administration Chlorhexidine Gluconate 15 ml 07/21/16 10:00 07/23/16 09:22 Peridex - MM 15 ml BID AVERY Administration Dextrose 50 ml 07/20/16 11:54 07/20/16 17:57 D50w (Vial) - IVPUSH 50 ml Q15M PRN Administration BLOOD SUGAR < 60 Fluconazole 100 mls @ 100 mls/hr 07/17/16 10:00 07/23/16 09:19 Diflucan 200 Mg/Ns Premixed Ivpb - IVPB 100 mls/hr DAILY AVERY Administration Norepinephrine Bitartrate 8, 500 mls @ 18.75 mls/hr 07/16/16 23:15 07/23/16 01: 48 000 mcg/ Dextrose IV 18.75 mls/hr TITR AVERY Administration Protocol 5 MCG/MIN Famotidine/Sodium Chloride 50 mls @ 100 mls/hr 07/17/16 10:00 07/23/16 09:19 Pepcid 20 Mg Premixed Ivpb - IVPB 100 mls/hr BID AVERY Administration Vasopressin 50 units/ Sodium 100 mls @ 6 mls/hr 07/19/16 14:16 07/23/16 14:25 Chloride IVPB Not Given ASDIR AVERY Protocol 3 UNITS/HR Meropenem 1 gm/ Dextrose 100 mls @ 100 mls/hr 07/19/16 18:00 07/23/16 17:09 IVPB 100 mls/hr Q8H-IV AVERY Administration Protocol Clindamycin Phosphate 50 mls @ 100 mls/hr 07/22/16 14:15 07/23/16 17:10 Cleocin 600 Mg Premix Ivpb - IVPB 100 mls/hr Q8H-IV AVERY Administration Insulin Aspart 1 vial 07/17/16 16:30 07/23/16 16:42 Novolog Vial Sliding Scale - SQ 6 units ACHS AVERY Administration Protocol Phytonadione 5 mg 07/21/16 17:30 07/23/16 09:20 Aqua Mephyton Injection - SQ 07/24/16 17:29 5 mg DAILY AVERY Administration A/P 65 y/o patient with Sepsis with SIRS, severe. Thrombocytopenia likely secondary to her systemic condition. May be component of drug-induced thrombocytopenia. Continue supportive transfusion support - prophylactically maintain platelet count > 20K (while febrile). Monitor coagulation parameters daily - can consider cryo if fibrinogen <100. trial of Vit/.K monitor coags/CBC
[2016-07-23 18:39] LABS: HYPOCHROMIA 1+; PLATELET ESTIMATE DECREASED (NORMAL)
[2016-07-23] MEDS ORDERED: VASOPRESSIN 20 UNITS/ML VIAL IV ONE (19:36)
[2016-07-23] MEDS ORDERED: NOREPINEPHRINE BITARTRATE 4 MG/4 ML ML IV ONE ×2 (20:57→20:58)
[2016-07-23] MEDS: CHLORHEXIDINE GLUCONATE 4% CLEANSER FOR DECOLONIZATION TP SCH (21:02)
[2016-07-24] MEDS: NOREPINEPHRINE BITARTRATE 8,000 MCG in DEXTROSE 5%-WATER - 492 ML IV SCH (01:42)
[2016-07-24] MEDS: CLINDAMYCIN 600MG PREMIX IVPB 50 ML IVPB SCH ×3 (02:13→17:43)
[2016-07-24] MEDS: MEROPENEM 1 GM in DEXTROSE 5%-WATER - 100 ML IVPB SCH ×3 (02:13→17:44)
[2016-07-24] MEDS ORDERED: ALBUTEROL SO4 2.5/IPRATROPIUM 0.5 INH SOL 3 ML VIAL.NEB. NEB PRN (06:00)
[2016-07-24 06:17] LABS: MCH 29.3 pg (25.7-33.7); MCHC 33.8 g/dl (32.0-36.0); MEAN CELL VOLUME 86.9 fl (80-96); MEAN PLT VOLUME 10.1 fl (7.5-11.1); RDW 13.7 % (11.6-15.6); WHITE BLOOD COUNT 9.4 K/mm3 (4.0-10.0)
[2016-07-24] MEDS: INSULIN SLIDING SCALE (NOVOLOG) 1 VIAL SQ SCH ×4 (06:37→21:46)
[2016-07-24 06:52] LABS: BILIRUBIN,TOTAL 0.7 mg/dL (0.2-1.0); COCKROFT - GAULT 71.4; MAGNESIUM 1.6 mg/dL (1.8-2.4); PHOSPHOROUS 2.9 mg/dL (2.5-4.9); TOT PROT 3.7 g/dl (6.4-8.2)
[2016-07-24] MEDS ORDERED: DEXTROSE 50%-WATER - 25 GM/50 ML VIAL IVPUSH PRN (07:18)
[2016-07-24 07:22] LABS: CALCIUM 6.5 mg/dL (8.5-10.1)
[2016-07-24 07:24] LABS: ALLENS TEST POSITIVE; ART PUNCT SITE LEFT RADIAL; ARTERIAL BLOOD GAS BASE EXCESS 4.3 meq/l (-2-2); ARTERIAL BLOOD GAS HCO3 26.4 meq/L (22-26); ARTERIAL BLOOD GAS PO2 91.7 mmHg (80-100); LPM/O2% 50%; PT. ON O2? YES
[2016-07-24 07:25] LABS: ARTERIAL BLOOD GAS pH 7.55 (7.35-7.45); MECH. VENT. ESPRIT; TYPE OF O2 MEC.VENT; VENT RATE 14; VT/PRESS 400
[2016-07-24] MEDS ORDERED: MAGNESIUM SULF 50% (8.12 MEQ/2 ML-1 GM VIAL) IVPB ONE (07:53)
[2016-07-24] MEDS ORDERED: PT OWN MED DRAWER 7, Y5N ONE ×3 (08:03→21:38)
--- NOTE | 2016-07-24 09:07 | PN ---
Physical Exam: SUBJECTIVE: Patient seen and examined intubated, not sedated. continues to require two pressors uop overnight 300cc intermittent movements of her lower jaw OBJECTIVE: Vital Signs Period Temp Pulse Resp BP Sys/Major Pulse Ox Last 24 Hr 97.9 F-99.8 F 83-113 14-28 89-129/54-81 96-100 EYES: pinpoint pupils, edematous sclera, sclera anicteric. ENT: nares patent with NGT in right nostril draining thick green fluid, oropharynx with ET in place. dry mucous membranes. NECK: Trachea midline. LUNGS: diffuse rhonchi anterior bilaterally, no wheezes, no crackles. HEART: Regular rate and rhythm, S1, S2 without murmur, rub or gallop. ABDOMEN: distended, firm, scant serous discharge from midline inscion, sump pump in place with green fluid discharge. several ruptured vesicles throughout abdomen with scant serous discharge, covered in xeroform EXTREMITIES: nonpalpable pulses in DP/TP/radial b/l, anasarca. fingernails are blue. warm extremities SKIN: multiple ruptured vesicles throughout body (abdomen, inner thighs, neck and arms), multiple fluid filled vesicles throughout body, covered in xeroform NEUROLOGICAL: non responsive to verbal or noxious stimuli. constricted pupils. Laboratory Results - last 24 hr 07/23/16 07/23/16 07/23/16 05:15 07:37 13:10 WBC RBC Hgb Hct MCV MCHC RDW Plt Count MPV Neutrophils % 80.0 Lymphocytes % 16.0 D Monocytes % 3.0 L Band Neutrophils 1.0 D Platelet Estimate Decreased Platelet Comment No clumping noted Hypochromic-Microcytic 1+ Puncture Site ABG pH ABG pCO2 at Pt Temp ABG pO2 at Pt Temp ABG HCO3 ABG O2 Sat (Measured) ABG O2 Content ABG Base Excess Heber Test O2 Delivery Device Oxygen Flow Rate Vent Mode Vent Rate Mechanical Rate PEEP Pressure Support Vent Sodium Potassium Chloride Carbon Dioxide Anion Gap BUN Creatinine Creat Clearance w eGFR POC Glucometer [phone] Random Glucose Calcium Phosphorus Magnesium Total Bilirubin AST ALT Alkaline Phosphatase Total Protein Albumin Blood Type O POSITIVE Antibody Screen Negative Crossmatch See Detail Spec Expiration Date Contracts Specialist 07/23/16 07/24/16 07/24/16 21:09 05:30 05:30 WBC 9.4 D RBC 2.82 L Hgb 8.3 L Hct 24.5 L MCV 86.9 MCHC 33.8 RDW 13.7 Plt Count 26 L* D MPV 10.1 Neutrophils % Y Lymphocytes % Y Monocytes % Band Neutrophils Platelet Estimate Platelet Comment Hypochromic-Microcytic Puncture Site ABG pH ABG pCO2 at Pt Temp ABG pO2 at Pt Temp ABG HCO3 ABG O2 Sat (Measured) ABG O2 Content ABG Base Excess Heber Test O2 Delivery Device Oxygen Flow Rate Vent Mode Vent Rate Mechanical Rate PEEP Pressure Support Vent Sodium 137 Potassium 3.2 L Chloride 96 L Carbon Dioxide 27 Anion Gap 14 BUN 29 H Creatinine 1.0 D Creat Clearance w eGFR 55.30 POC Glucometer 89.31702 Random Glucose 22 L* D Calcium 6.5 L* Phosphorus 2.9 Magnesium 1.6 L Total Bilirubin 0.7 AST 272 H D ALT 83 H Alkaline Phosphatase 81 Total Protein 3.7 L Albumin 1.0 L Blood Type Antibody Screen Crossmatch Spec Expiration Date 07/24/16 07/24/16 07/24/16 06:23 06:53 07:15 WBC RBC Hgb Hct MCV MCHC RDW Plt Count MPV Neutrophils % Lymphocytes % Monocytes % Band Neutrophils Platelet Estimate Platelet Comment Hypochromic-Microcytic Puncture Site Left radial ABG pH 7.55 H ABG pCO2 at Pt Temp 30.0 L ABG pO2 at Pt Temp 91.7 D ABG HCO3 26.4 H ABG O2 Sat (Measured) 98.0 ABG O2 Content 11.5 L ABG Base Excess 4.3 H Heber Test Positive O2 Delivery Device Mec.vent Oxygen Flow Rate 50% Vent Mode A/c Vent Rate 14 Mechanical Rate Esprit PEEP 5.0 Pressure Support Vent 400 Sodium Potassium Chloride Carbon Dioxide Anion Gap BUN Creatinine Creat Clearance w eGFR POC Glucometer < 50 [phone] Random Glucose Calcium Phosphorus Magnesium Total Bilirubin AST ALT Alkaline Phosphatase Total Protein Albumin Blood Type Antibody Screen Crossmatch Spec Expiration Date Active Medications Generic Name Dose Route Start Last Admin Trade Name Freq PRN Reason Stop Dose Admin Acetaminophen 1,000 mg 07/19/16 15:43 07/22/16 09:43 Ofirmev Injection - IVPB 1,000 mg Q6H PRN Administration FEVER Albuterol/Ipratropium 1 amp 07/24/16 06:00 Duoneb - NEB Q6H PRN SHORTNESS OF BREATH Chlorhexidine Gluconate 1 applic 07/16/16 22:00 07/23/16 21:02 Hibiclens For Decolonization - TP 1 applic HS AVERY Administration Chlorhexidine Gluconate 15 ml 07/21/16 10:00 07/23/16 21:10 Peridex - MM 15 ml BID AVERY Administration Dextrose 50 ml 07/24/16 07:18 07/24/16 06:30 D50w (Vial) - IVPUSH 50 ml Q15M PRN Administration BLOOD SUGAR < 60 Fluconazole 100 mls @ 100 mls/hr 07/17/16 10:00 07/23/16 09:19 Diflucan 200 Mg/Ns Premixed Ivpb - IVPB 100 mls/hr DAILY AVERY Administration Norepinephrine Bitartrate 8, 500 mls @ 18.75 mls/hr 07/16/16 23:15 07/24/16 01: 42 000 mcg/ Dextrose IV Not Given TITR AVERY Protocol 5 MCG/MIN Famotidine/Sodium Chloride 50 mls @ 100 mls/hr 07/17/16 10:00 07/23/16 21:01 Pepcid 20 Mg Premixed Ivpb - IVPB 100 mls/hr BID AVERY Administration Vasopressin 50 units/ Sodium 100 mls @ 6 mls/hr 07/19/16 14:16 07/23/16 21:02 Chloride IVPB 4.8 mls/hr ASDIR AVERY Administration Protocol 3 UNITS/HR Meropenem 1 gm/ Dextrose 100 mls @ 100 mls/hr 07/19/16 18:00 07/24/16 02:13 IVPB 100 mls/hr Q8H-IV AVERY Administration Protocol Clindamycin Phosphate 50 mls @ 100 mls/hr 07/22/16 14:15 07/24/16 02:13 Cleocin 600 Mg Premix Ivpb - IVPB 100 mls/hr Q8H-IV AVERY Administration Potassium Chloride 100 mls @ 100 mls/hr 07/24/16 08:00 Potassium Chloride 10 Meq Premix Ivpb - IVPB 07/24/16 09:59 Q60M AVERY Insulin Aspart 1 vial 07/17/16 16:30 07/24/16 06:37 Novolog Vial Sliding Scale - SQ Not Given ACHS AVERY Protocol Phytonadione 5 mg 07/21/16 17:30 07/23/16 09:20 Aqua Mephyton Injection - SQ 07/24/16 17:29 5 mg DAILY AVERY Administration Silver Sulfadiazine 1 applic 07/24/16 10:00 Silvadene - TP DAILY AVERY Intake & Output 07/21/16 07/22/16 07/23/16 07/24/16 23:59 23:59 23:59 23:59 Intake Total 2195.5 2888 3189.0 997.6 Output Total 530 2540 1560 200 Balance 1665.5 348 1629.0 797.6 Weight 190 lb 14.4 oz 194 lb 3.636 oz 194 lb 0.108 oz 183 lb 13.848 oz ASSESSMENT/PLAN: 65 yr old woman with HTN, dementia, NIDDM II admitted to ICU with septic shock secondary to perforated duodenal ulcer and peritonitis. prognosis gaurded - dr. Miranda to speak with about prognosis. Cardivascular Hypotensive requiring pressors - vasopressin 3units/hr + levophed 8mcg, plan to titrate off pressors again today, maintain CVP goal 8-12 - urine output improved last 24hrs, 300cc/12hr from overnight - maintain goal MAP>65, current MAP 75 - bolus NS as needed to maintain BP while titrating off levophed first Pulmonary endotracheal tube placed 07/16 fio2 50%, sat 100%, RR 14 titrate to maintain spo2 >90% - pt RR 24 Gastrointestinal; s/p repair perforated duodenal ulcer 07/16, addition of cleocin yesterday - IV diflucan 200mg Ivpb q24hr - day 8 - Meropenem IV 1gm q8hr - day 5 - Cleocin - 600gm q8h - day 2 - pepcid ivpb 20g daily Renal - ZAHIRA (decrease in Cr today) - lactic acidosis continues - Bacon placed in ED pre-op 07/16; net positive, improved urine output again yesterday - corrected calcium 8.5 - repleted Mag/potassium today - consult: Dr. Tubbs; Dose all meds for Cr Cl less then 30 Infectious Disease, continous fevers on abx - consulted - meropenem + diflucan + cleocin - monitor for fevers, tylenol IVPB 1gm q6hr - lactic acidosis; continue to trend q12h until resolved Endocrine NIDDM II - plan for tube feeds, discussed with Dr. Louise - D5 Iv push 1 amp when BGM <60 - BGM q6hrs w/ goal 140-180, NISS Hematologic - thrombocytopenia likely due to sepsis, r/o DIC - daily fibrinogen levels/coags , if fibrinogen level <100 consider cryoppt - goal to maintain plts>20,000 - consult Dr. Church Neurologic - head CT today for further evaluation due to prolonged unresponsiveness. Dementia wrist restraints Diet: trickle tube feeds through NGT, 10cc/hr, Jevity DVT- SCD' given thrombocytopenia Visit type - Emergency Visit Emergency Visit: No - New Patient This patient is new to me today: No - Critical Care Critical Care patient: Yes Total Critical Care Time (in minutes): 40 Critical Care Statement: The care of this patient involved high complexity decision making to prevent further life threatening deterioration of the patient 's condition and/or to evalute & treat vital organ system(s) failure or risk of failure.
[2016-07-24 09:20] LABS: INR 1.11 (0.82-1.09); PROTHROMBIN TIME (PATIENT) 12.2 SEC (9.98-11.88)
[2016-07-24 09:23] LABS: ACTIVATED PTT 35.2 SECONDS (26.9-34.4)
[2016-07-24] MEDS: KCL 10 MEQ IVPB 100 ML IVPB SCH (09:23)
[2016-07-24] MEDS: FLUCONAZOLE 200 MG/NS 100 ML IVPB SCH (09:24)
[2016-07-24] MEDS: PHYTONADIONE 10 MG/1 ML AMP SQ SCH (09:24)
[2016-07-24] MEDS: CHLORHEXIDINE GLUCONATE 0.12% 15ML CUP MM SCH ×2 (09:25→21:39)
[2016-07-24] MEDS: FAMOTIDINE 20 MG/50 ML IVPB 50 ML IVPB SCH ×2 (09:25→21:39)
--- NOTE | 2016-07-24 09:28 | PN ---
Progress Note, Physician Chief Complaint: Comatosed History of Present Illness: Comatosed on respirator - Current Medication List Current Medications: Active Medications Acetaminophen (Ofirmev Injection -) 1,000 mg IVPB Q6H PRN PRN Reason: FEVER Last Admin: 07/22/16 09:43 Dose: 1,000 mg Albuterol/Ipratropium (Duoneb -) 1 amp NEB Q6H PRN PRN Reason: SHORTNESS OF BREATH Chlorhexidine Gluconate (Hibiclens For Decolonization -) 1 applic TP HS AVERY Last Admin: 07/23/16 21:02 Dose: 1 applic Chlorhexidine Gluconate (Peridex -) 15 ml MM BID AVERY Last Admin: 07/23/16 21:10 Dose: 15 ml Dextrose (D50w (Vial) -) 50 ml IVPUSH Q15M PRN PRN Reason: BLOOD SUGAR < 60 Last Admin: 07/24/16 06:30 Dose: 50 ml Fluconazole (Diflucan 200 Mg/Ns Premixed Ivpb -) 100 mls @ 100 mls/hr IVPB DAILY AVERY Last Admin: 07/23/16 09:19 Dose: 100 mls/hr Norepinephrine Bitartrate 8, (000 mcg/ Dextrose) 500 mls @ 18.75 mls/hr IV TITR AVERY; 5 MCG/MIN PRN Reason: Protocol Last Admin: 07/24/16 01:42 Dose: Not Given Famotidine/Sodium Chloride (Pepcid 20 Mg Premixed Ivpb -) 50 mls @ 100 mls/hr IVPB BID AVERY Last Admin: 07/23/16 21:01 Dose: 100 mls/hr Vasopressin 50 units/ Sodium (Chloride) 100 mls @ 6 mls/hr IVPB ASDIR AVERY; 3 UNITS/HR PRN Reason: Protocol Last Admin: 07/23/16 21:02 Dose: 4.8 mls/hr Meropenem 1 gm/ Dextrose 100 mls @ 100 mls/hr IVPB Q8H-IV AVERY PRN Reason: Protocol Last Admin: 07/24/16 02:13 Dose: 100 mls/hr Clindamycin Phosphate (Cleocin 600 Mg Premix Ivpb -) 50 mls @ 100 mls/hr IVPB Q8H-IV AVERY Last Admin: 07/24/16 02:13 Dose: 100 mls/hr Potassium Chloride (Potassium Chloride 10 Meq Premix Ivpb -) 100 mls @ 100 mls/ hr IVPB Q60M [facility] Stop: 07/24/16 09:59 Insulin Aspart (Novolog Vial Sliding Scale -) 1 vial SQ ACHS [facility] PRN Reason: Protocol Last Admin: 07/24/16 06:37 Dose: Not Given Phytonadione (Aqua Mephyton Injection -) 5 mg SQ DAILY [facility] Stop: 07/24/16 17:29 Last Admin: 07/23/16 09:20 Dose: 5 mg Silver Sulfadiazine (Silvadene -) 1 applic TP DAILY [facility] - Objective Vital Signs: Vital Signs Temperature 98.7 F 07/24/16 06:00 Pulse Rate 84 07/24/16 08:00 Respiratory Rate 14 07/24/16 08:00 Blood Pressure 95/57 07/24/16 08:00 O2 Sat by Pulse Oximetry (%) 100 07/24/16 07:57 Eyes: Yes: Other (constricted) Neck: Yes: Supple Cardiovascular: Yes: Regular Rate and Rhythm Respiratory: Yes: Mechanically Ventilated Gastrointestinal: Yes: Hyperactive Bowel Sounds ...Rectal Exam: Yes: Deferred Edema: LLE: Trace, RLE: Trace Neurological: Yes: Unresponsive Labs: CBC, BMP 07/24/16 05:30 07/24/16 05:30 INR, PTT INR 1.59 (0.82-1.09) H 07/21/16 05:15 Fibrinogen 466.0 mg/dL (238-498) 07/22/16 05:35 Assessment/Plan Case discussed with Dr Chance,will start on NGT feeding
[2016-07-24 09:31] LABS: PLATELET COUNT 26 K/MM3 (134-434)
[2016-07-24] MEDS: SILVER SULFADIAZINE 1% TOP CREAM 50 GM JAR TP SCH (09:50)
[2016-07-24 10:39] LABS: PLATELET ESTIMATE MARKEDLY DECREASED (NORMAL)
--- NOTE | 2016-07-24 11:55 | PN ---
Progress Note (short form) - Note Progress Note: Renal Follow up for ZAHIRA/Metabolic acidosis Pt seen and examined in the ICU on Vent, on Levophed and Vasopressin good urine output CVP is at goal Vital Signs Temperature 100.7 F H 07/24/16 09:46 Pulse Rate 84 07/24/16 09:00 Respiratory Rate 26 H 07/24/16 09:00 Blood Pressure 98/56 07/24/16 09:00 O2 Sat by Pulse Oximetry (%) 100 07/24/16 07:57 Intake & Output 07/21/16 07/22/16 07/23/16 07/24/16 23:59 23:59 23:59 23:59 Intake Total 2195.5 2888 3189.0 997.6 Output Total 530 2540 1560 200 Balance 1665.5 348 1629.0 797.6 Weight 190 lb 14.4 oz 194 lb 3.636 oz 194 lb 0.108 oz 183 lb 13.848 oz Gen: on Vent, NAD HEENT: NC/AT, No JVD, ET Tube in place CVS: RRR, No M/R Lungs: Dec BS b/l lung andino Abd: Abd pain in palce, sutures appear clean. + distension Ext: 2+ LE edema, + bulle : No bladder distension CBC, BMP 07/24/16 05:30 07/24/16 05:30 Laboratory Tests 07/24/16 05:30 Calcium 6.5 L* Phosphorus 2.9 Magnesium 1.6 L Albumin 1.0 L Laboratory Tests 07/24/16 07:15 ABG pH 7.55 H ABG pCO2 at Pt Temp 30.0 L ABG pO2 at Pt Temp 91.7 D ABG HCO3 26.4 H Current Medications Acetaminophen (Ofirmev Injection -) 1,000 mg IVPB Q6H PRN PRN Reason: FEVER Last Admin: 07/22/16 09:43 Dose: 1,000 mg Albuterol/Ipratropium (Duoneb -) 1 amp NEB Q6H PRN PRN Reason: SHORTNESS OF BREATH Chlorhexidine Gluconate (Hibiclens For Decolonization -) 1 applic TP HS [facility] Last Admin: 07/23/16 21:02 Dose: 1 applic Chlorhexidine Gluconate (Peridex -) 15 ml MM BID AVERY Last Admin: 07/24/16 09:25 Dose: 15 ml Dextrose (D50w (Vial) -) 50 ml IVPUSH Q15M PRN PRN Reason: BLOOD SUGAR < 60 Last Admin: 07/24/16 06:30 Dose: 50 ml Fluconazole (Diflucan 200 Mg/Ns Premixed Ivpb -) 100 mls @ 100 mls/hr IVPB DAILY AVERY Last Admin: 07/24/16 09:24 Dose: 100 mls/hr Norepinephrine Bitartrate 8, (000 mcg/ Dextrose) 500 mls @ 18.75 mls/hr IV TITR AVERY; 5 MCG/MIN PRN Reason: Protocol Last Admin: 07/24/16 01:42 Dose: Not Given Famotidine/Sodium Chloride (Pepcid 20 Mg Premixed Ivpb -) 50 mls @ 100 mls/hr IVPB BID AVERY Last Admin: 07/24/16 09:25 Dose: 100 mls/hr Vasopressin 50 units/ Sodium (Chloride) 100 mls @ 6 mls/hr IVPB ASDIR AVERY; 3 UNITS/HR PRN Reason: Protocol Last Admin: 07/23/16 21:02 Dose: 4.8 mls/hr Meropenem 1 gm/ Dextrose 100 mls @ 100 mls/hr IVPB Q8H-IV AVERY PRN Reason: Protocol Last Admin: 07/24/16 09:24 Dose: 100 mls/hr Clindamycin Phosphate (Cleocin 600 Mg Premix Ivpb -) 50 mls @ 100 mls/hr IVPB Q8H-IV AVERY Last Admin: 07/24/16 09:24 Dose: 100 mls/hr Insulin Aspart (Novolog Vial Sliding Scale -) 1 vial SQ ACHS AVERY PRN Reason: Protocol Last Admin: 07/24/16 06:37 Dose: Not Given Phytonadione (Aqua Mephyton Injection -) 5 mg SQ DAILY [facility] Stop: 07/24/16 17:29 Last Admin: 07/24/16 09:24 Dose: 5 mg Silver Sulfadiazine (Silvadene -) 1 applic TP DAILY [facility] Last Admin: 07/24/16 09:50 Dose: 1 applic A/P 65 year old woman with PMhx of hypertension, hypercholesterolemia, diabetes mellitus who presented with Abd pain and found to have perforated Abd viscus s/ p emergent Sx now with Septic Shock, ZAHIRA and Metabolic Acidosis. #Anion gap Metabolic acidosis now resolved and now with resp/metabolic alkalosis ph is now > 7.5 off bicarb gtt Titrate vent settings #Non-oliguric Acute Renal failure renal function improved continue supportive care #Sepsis/Perforated Abd Viscus CT of the Abd showed ileus, colitis, distended gallbladder ICU Care Surgical Follow up Vent support IVF to keep CVP at gaol will need diuresis given 3rd spacing once hemodynamically stable #Hypokalemia/Hypomagnesemia Give IV mag sulfate IV and KCl Trend electrolytes BID Thank you Cyril Tubbs DO
--- NOTE | 2016-07-24 13:33 | PN ---
Teaching Attending Note Name of Resident: Trevin Terrazas ATTENDING PHYSICIAN STATEMENT I saw and evaluated the patient. I reviewed the resident's note and discussed the case with the resident. I agree with the resident's findings and plan as documented. SUBJECTIVE: Pt seen and examined in the ICU. Low grade temp this AM. On low dose levophed and vasopressin gtts. Remains unresponsive despite being off sedation. OBJECTIVE: Last Vital Signs Temp Pulse Resp BP Pulse Ox 100.7 F H 84 25 H 99/59 100 07/24/16 09:46 07/24/16 11:55 07/24/16 12:17 07/24/16 11:55 07/24/16 07:57 Intake & Output 07/21/16 07/22/16 07/23/16 07/24/16 23:59 23:59 23:59 23:59 Intake Total 2195.5 2888 3189.0 997.6 Output Total 530 2540 1560 200 Balance 1665.5 348 1629.0 797.6 Weight 190 lb 14.4 oz 194 lb 3.636 oz 194 lb 0.108 oz 183 lb 13.848 oz Gen: intubated, poorly responsive Heart: RRR Lung: scattered rhonchi Abd: soft, dressings intact Ext: + edema, fingers dusky CBC, BMP 07/24/16 05:30 07/24/16 05:30 ABG Results ABG pH 7.55 (7.35-7.45) H 07/24/16 07:15 ABG pCO2 at Pt Temp 30.0 mmHg (35-45) L 07/24/16 07:15 ABG pO2 at Pt Temp 91.7 mmHg (80-100) D 07/24/16 07:15 ABG HCO3 26.4 meq/L (22-26) H 07/24/16 07:15 ABG O2 Sat (Measured) 98.0 % (90-98.9) 07/24/16 07:15 ABG O2 Content 11.5 % vol (15-22) L 07/24/16 07:15 ABG Base Excess 4.3 meq/l (-2-2) H 07/24/16 07:15 INR, PTT INR 1.11 (0.82-1.09) D 07/24/16 05:30 Fibrinogen 473.0 mg/dL (238-498) 07/24/16 05:30 Active Medications Acetaminophen (Ofirmev Injection -) 1,000 mg IVPB Q6H PRN PRN Reason: FEVER Last Admin: 07/22/16 09:43 Dose: 1,000 mg Albuterol/Ipratropium (Duoneb -) 1 amp NEB Q6H PRN PRN Reason: SHORTNESS OF BREATH Chlorhexidine Gluconate (Hibiclens For Decolonization -) 1 applic TP HS AVERY Last Admin: 07/23/16 21:02 Dose: 1 applic Chlorhexidine Gluconate (Peridex -) 15 ml MM BID AVERY Last Admin: 07/24/16 09:25 Dose: 15 ml Dextrose (D50w (Vial) -) 50 ml IVPUSH Q15M PRN PRN Reason: BLOOD SUGAR < 60 Last Admin: 07/24/16 06:30 Dose: 50 ml Fluconazole (Diflucan 200 Mg/Ns Premixed Ivpb -) 100 mls @ 100 mls/hr IVPB DAILY AVERY Last Admin: 07/24/16 09:24 Dose: 100 mls/hr Norepinephrine Bitartrate 8, (000 mcg/ Dextrose) 500 mls @ 18.75 mls/hr IV TITR AVERY; 5 MCG/MIN PRN Reason: Protocol Last Admin: 07/24/16 01:42 Dose: Not Given Famotidine/Sodium Chloride (Pepcid 20 Mg Premixed Ivpb -) 50 mls @ 100 mls/hr IVPB BID AVERY Last Admin: 07/24/16 09:25 Dose: 100 mls/hr Vasopressin 50 units/ Sodium (Chloride) 100 mls @ 6 mls/hr IVPB ASDIR AVERY; 3 UNITS/HR PRN Reason: Protocol Last Admin: 07/23/16 21:02 Dose: 4.8 mls/hr Meropenem 1 gm/ Dextrose 100 mls @ 100 mls/hr IVPB Q8H-IV AVERY PRN Reason: Protocol Last Admin: 07/24/16 09:24 Dose: 100 mls/hr Clindamycin Phosphate (Cleocin 600 Mg Premix Ivpb -) 50 mls @ 100 mls/hr IVPB Q8H-IV AVERY Last Admin: 07/24/16 09:24 Dose: 100 mls/hr Insulin Aspart (Novolog Vial Sliding Scale -) 1 vial SQ ACHS [facility] PRN Reason: Protocol Last Admin: 07/24/16 11:58 Dose: Not Given Phytonadione (Aqua Mephyton Injection -) 5 mg SQ DAILY [facility] Stop: 07/24/16 17:29 Last Admin: 07/24/16 09:24 Dose: 5 mg Silver Sulfadiazine (Silvadene -) 1 applic TP DAILY [facility] Last Admin: 07/24/16 09:50 Dose: 1 applic ASSESSMENT AND PLAN: Perforated Duodenal Ulcer Peritonitis s/p ex-lap/omental patch repair 07/16 Acute Respiratory Failure Septic Shock Acute Kidney Injury Lactic Acidosis Leukopenia/Thrombocytopenia likely from sepsis DM - CT head today as pt with poor mental status with thrombocytopenia - continue antibiotics - f/u cultures - IVF to keep CVP 8-12 - titrate pressors to maintain MAP >65, minimize IV piggybacks - monitor urine output, creatinine - will need lasix when hemodynamically stable - trend lactate - taper Fio2 to keep Spo2 >90% - monitor ABG - transfuse platelets if <20K, cryo if fibrinogen <100 - DVT/GI prophylaxis - continue ICU monitoring - prognosis is guarded, will need to start discussing with family advanced directives critical care time spent in reviewing chart, evaluating patient and formulating plan 40 min
[2016-07-24] MEDS ORDERED: VASOPRESSIN 20 UNITS/ML VIAL IV ONE (15:24)
[2016-07-24] MEDS: VASOPRESSIN 50 UNITS in SODIUM CHLORIDE 97.5 ML IVPB SCH (15:27)
--- NOTE | 2016-07-24 15:36 | PN ---
Progress Note, Physician History of Present Illness: no gross change mentally not responding plan to do ct scan of the brain intubated - Current Medication List Current Medications: Active Medications Acetaminophen (Ofirmev Injection -) 1,000 mg IVPB Q6H PRN PRN Reason: FEVER Last Admin: 07/22/16 09:43 Dose: 1,000 mg Albuterol/Ipratropium (Duoneb -) 1 amp NEB Q6H PRN PRN Reason: SHORTNESS OF BREATH Chlorhexidine Gluconate (Hibiclens For Decolonization -) 1 applic TP HS [facility] Last Admin: 07/23/16 21:02 Dose: 1 applic Chlorhexidine Gluconate (Peridex -) 15 ml MM BID [facility] Last Admin: 07/24/16 09:25 Dose: 15 ml Dextrose (D50w (Vial) -) 50 ml IVPUSH Q15M PRN PRN Reason: BLOOD SUGAR < 60 Last Admin: 07/24/16 06:30 Dose: 50 ml Fluconazole (Diflucan 200 Mg/Ns Premixed Ivpb -) 100 mls @ 100 mls/hr IVPB DAILY [facility] Last Admin: 07/24/16 09:24 Dose: 100 mls/hr Norepinephrine Bitartrate 8, (000 mcg/ Dextrose) 500 mls @ 18.75 mls/hr IV TITR [facility]ERY; 5 MCG/MIN PRN Reason: Protocol Last Admin: 07/24/16 01:42 Dose: Not Given Famotidine/Sodium Chloride (Pepcid 20 Mg Premixed Ivpb -) 50 mls @ 100 mls/hr IVPB BID [facility] Last Admin: 07/24/16 09:25 Dose: 100 mls/hr Vasopressin 50 units/ Sodium (Chloride) 100 mls @ 6 mls/hr IVPB ASDIR [facility]ERY; 3 UNITS/HR PRN Reason: Protocol Last Admin: 07/24/16 15:27 Dose: 4.8 mls/hr Meropenem 1 gm/ Dextrose 100 mls @ 100 mls/hr IVPB Q8H-IV [facility] PRN Reason: Protocol Last Admin: 07/24/16 09:24 Dose: 100 mls/hr Clindamycin Phosphate (Cleocin 600 Mg Premix Ivpb -) 50 mls @ 100 mls/hr IVPB Q8H-IV [facility] Last Admin: 07/24/16 09:24 Dose: 100 mls/hr Insulin Aspart (Novolog Vial Sliding Scale -) 1 vial SQ ACHS [facility] PRN Reason: Protocol Last Admin: 07/24/16 11:58 Dose: Not Given Phytonadione (Aqua Mephyton Injection -) 5 mg SQ DAILY [facility] Stop: 07/24/16 17:29 Last Admin: 07/24/16 09:24 Dose: 5 mg Silver Sulfadiazine (Silvadene -) 1 applic TP DAILY [facility] Last Admin: 07/24/16 09:50 Dose: 1 applic - Objective Vital Signs: Vital Signs Temperature 100.3 F H 07/24/16 15:21 Pulse Rate 88 07/24/16 15:27 Respiratory Rate 14 07/24/16 15:21 Blood Pressure 102/50 07/24/16 15:27 O2 Sat by Pulse Oximetry (%) 100 07/24/16 10:05 Constitutional: Yes: Other Cardiovascular: Yes: S1, S2 Respiratory: Yes: Intubated, Mechanically Ventilated Gastrointestinal: Yes: Other Edema: LUE: 2+, RUE: 2+, LLE: 2+, RLE: 2+ Psychiatric: Yes: Other Labs: CBC, BMP 07/24/16 05:30 07/24/16 05:30 INR, PTT INR 1.11 (0.82-1.09) D 07/24/16 05:30 Fibrinogen 473.0 mg/dL (238-498) 07/24/16 05:30 - ....Imaging Chest X-ray: Report Reviewed, Image Reviewed Assessment/Plan Problem List - Problems (1) Abdominal pain Code(s): R10.9 - UNSPECIFIED ABDOMINAL PAIN Qualifiers: Qualified Code(s): R10.33 - Periumbilical pain (2) Perforated abdominal viscus Code(s): [id number] - (3) Perforated viscus Code(s): R19.8 - OTH SYMPTOMS AND SIGNS INVOLVING THE DGSTV SYS AND ABDOMEN (4) Hypertension Code(s): I10 - ESSENTIAL (PRIMARY) HYPERTENSION Qualifiers: Qualified Code(s): I10 - Essential (primary) hypertension lactic acidosis fevers heam note noted generalized swelling plan continue current mgmt nutrition patient mentally not responding will follow ct of the brain transfuse platelets if <20K, cryo if fibrinogen <100 as per heam DVT/GI prophylaxis prognosis poor cc time 40 min
[2016-07-24 18:37] LABS: COCKROFT - GAULT 89.25; CREATININE 0.8 mg/dL (0.55-1.02); MAGNESIUM 1.7 mg/dL (1.8-2.4)
[2016-07-24 18:40] LABS: CALCIUM 6.7 mg/dL (8.5-10.1)
--- NOTE | 2016-07-24 20:42 | PN ---
Progress Note, Physician - Current Medication List Current Medications: Active Medications Acetaminophen (Ofirmev Injection -) 1,000 mg IVPB Q6H PRN PRN Reason: FEVER Last Admin: 07/22/16 09:43 Dose: 1,000 mg Albuterol/Ipratropium (Duoneb -) 1 amp NEB Q6H PRN PRN Reason: SHORTNESS OF BREATH Chlorhexidine Gluconate (Hibiclens For Decolonization -) 1 applic TP HS [facility] Last Admin: 07/23/16 21:02 Dose: 1 applic Chlorhexidine Gluconate (Peridex -) 15 ml MM BID [facility] Last Admin: 07/24/16 09:25 Dose: 15 ml Dextrose (D50w (Vial) -) 50 ml IVPUSH Q15M PRN PRN Reason: BLOOD SUGAR < 60 Last Admin: 07/24/16 06:30 Dose: 50 ml Fluconazole (Diflucan 200 Mg/Ns Premixed Ivpb -) 100 mls @ 100 mls/hr IVPB DAILY [facility] Last Admin: 07/24/16 09:24 Dose: 100 mls/hr Norepinephrine Bitartrate 8, (000 mcg/ Dextrose) 500 mls @ 18.75 mls/hr IV TITR [facility]; 5 MCG/MIN PRN Reason: Protocol Last Admin: 07/24/16 01:42 Dose: Not Given Famotidine/Sodium Chloride (Pepcid 20 Mg Premixed Ivpb -) 50 mls @ 100 mls/hr IVPB BID [facility] Last Admin: 07/24/16 09:25 Dose: 100 mls/hr Vasopressin 50 units/ Sodium (Chloride) 100 mls @ 6 mls/hr IVPB ASDIR [facility]; 3 UNITS/HR PRN Reason: Protocol Last Admin: 07/24/16 15:27 Dose: 4.8 mls/hr Meropenem 1 gm/ Dextrose 100 mls @ 100 mls/hr IVPB Q8H-IV [facility] PRN Reason: Protocol Last Admin: 07/24/16 17:44 Dose: 100 mls/hr Clindamycin Phosphate (Cleocin 600 Mg Premix Ivpb -) 50 mls @ 100 mls/hr IVPB Q8H-IV [facility] Last Admin: 07/24/16 17:43 Dose: 100 mls/hr Insulin Aspart (Novolog Vial Sliding Scale -) 1 vial SQ ACHS [facility] PRN Reason: Protocol Last Admin: 07/24/16 18:02 Dose: Not Given Silver Sulfadiazine (Silvadene -) 1 applic TP DAILY [facility] Last Admin: 07/24/16 09:50 Dose: 1 applic - Objective Vital Signs: Vital Signs Temperature 100 F H 07/24/16 20:00 Pulse Rate 89 07/24/16 20:00 Respiratory Rate 27 H 07/24/16 20:24 Blood Pressure 106/63 07/24/16 20:00 O2 Sat by Pulse Oximetry (%) 98 07/24/16 20:24 Labs: CBC, BMP 07/24/16 05:30 07/24/16 17:00 INR, PTT INR 1.11 (0.82-1.09) D 07/24/16 05:30 Fibrinogen 473.0 mg/dL (238-498) 07/24/16 05:30 Problem List - Problems (1) Abdominal pain Code(s): R10.9 - UNSPECIFIED ABDOMINAL PAIN Qualifiers: Abdominal location: periumbilical Qualified Code(s): R10.33 - Periumbilical pain (2) Perforated abdominal viscus Code(s): [id number] - (3) Perforated viscus Code(s): R19.8 - OTH SYMPTOMS AND SIGNS INVOLVING THE DGSTV SYS AND ABDOMEN (4) Hypertension Code(s): I10 - ESSENTIAL (PRIMARY) HYPERTENSION Qualifiers: Hypertension type: essential hypertension Qualified Code(s): I10 - Essential (primary) hypertension Assessment/Plan Patient is not responsive to painfuk or verbal stimulii. CT scan oh head is negative for any acute events. Abdomen: Wound is clean , no drainage, no sign of wound infection. CT abdomen with no intraabdominal collections, abscess. Resume NG tube feeding inton the stomach. ABG and lactic acid is improving. Thrombocytopenia. WNBC is normal. Weaned off pressors. Urine output is adequate. On Clindamycin and Meropenem. Condition guarded.
[2016-07-24] MEDS: CHLORHEXIDINE GLUCONATE 4% CLEANSER FOR DECOLONIZATION TP SCH (21:39)
--- NOTE | 2016-07-24 22:40 | PN ---
Progress Note (short form) - Note Progress Note: PAtient seen and examined intubated unresponsive anasarca Cor: RSR, No murmurs, No gallops Lungs: Clear to P&A Abd: Soft, Normal bowel sounds, No organomegaly Ext:anasarca, cutaneous blebs Labs/meds reviewed A/P 65 y/o patient with Sepsis with SIRS, severe. Thrombocytopenia likely secondary to her systemic condition. May be component of drug-induced thrombocytopenia. Continue supportive transfusion support - prophylactically maintain platelet count > 20K (while febrile). Monitor coagulation parameters daily - can consider cryo if fibrinogen <100. coagulopathy improved on vit.k platelets [id number] monitor coags/CBC
[2016-07-25] MEDS: MEROPENEM 1 GM in DEXTROSE 5%-WATER - 100 ML IVPB SCH ×3 (02:24→18:16)
[2016-07-25] MEDS: NOREPINEPHRINE BITARTRATE 8,000 MCG in DEXTROSE 5%-WATER - 492 ML IV SCH ×2 (02:25→23:30)
[2016-07-25] MEDS: CLINDAMYCIN 600MG PREMIX IVPB 50 ML IVPB SCH ×3 (02:25→18:16)
[2016-07-25] MEDS: ACETAMINOPHEN 1000 MG/100 ML VIAL (NON FORMULARY) IVPB PRN ×2 (02:27→21:13)
[2016-07-25 06:16] LABS: MCH 29.9 pg (25.7-33.7); MCHC 34.4 g/dl (32.0-36.0); MEAN CELL VOLUME 86.9 fl (80-96); MEAN PLT VOLUME 10.9 fl (7.5-11.1); RDW 13.7 % (11.6-15.6); WHITE BLOOD COUNT 10.9 K/mm3 (4.0-10.0)
[2016-07-25] MEDS: INSULIN SLIDING SCALE (NOVOLOG) 1 VIAL SQ SCH ×4 (06:24→22:00)
[2016-07-25 06:30] LABS: INR 1.2 (0.82-1.09); PROTHROMBIN TIME (PATIENT) 13.3 SEC (9.98-11.88)
[2016-07-25 07:00] LABS: ANION GAP 14 (8-16); CO2 26 mmol/L (21-32); CREATININE 0.8 mg/dL (0.55-1.02); GLUCOSE,RANDOM 81 mg/dL (74-106); MAGNESIUM 1.5 mg/dL (1.8-2.4); SGOT/AST 214 U/L (15-37); SGPT/ALT 66 U/L (12-78)
[2016-07-25 07:01] LABS: ALK PHOS 77 U/L (45-117); TOT PROT 3.8 g/dl (6.4-8.2)
[2016-07-25 07:30] LABS: ALLENS TEST POSITIVE; ART PUNCT SITE LEFT RADIAL; ARTERIAL BLD GAS O2 SATURATION 99.2 % (90-98.9); ARTERIAL BLOOD GAS BASE EXCESS 2.9 meq/l (-2-2); ARTERIAL BLOOD GAS HCO3 25.6 meq/L (22-26); LPM/O2% 50%; MECH. VENT. YES; PT. ON O2? YES; TYPE OF O2 VENT; VENT RATE 14; VT/PRESS 400
[2016-07-25 07:34] LABS: PLATELET COUNT 35 K/MM3 (134-434)
[2016-07-25 07:35] LABS: CALCIUM 6.5 mg/dL (8.5-10.1)
[2016-07-25] MEDS ORDERED: PT OWN MED DRAWER 7, Y5N ONE ×2 (08:56→17:21)
--- NOTE | 2016-07-25 09:30 | PN ---
Progress Note, Physician Chief Complaint: comatose History of Present Illness: Septic shock on respirator - Current Medication List Current Medications: Active Medications Acetaminophen (Ofirmev Injection -) 1,000 mg IVPB Q6H PRN PRN Reason: FEVER Last Admin: 07/25/16 02:27 Dose: 1,000 mg Albuterol/Ipratropium (Duoneb -) 1 amp NEB Q6H PRN PRN Reason: SHORTNESS OF BREATH Chlorhexidine Gluconate (Hibiclens For Decolonization -) 1 applic TP HS [facility] Last Admin: 07/24/16 21:39 Dose: 1 applic Chlorhexidine Gluconate (Peridex -) 15 ml MM BID [facility] Last Admin: 07/24/16 21:39 Dose: 15 ml Dextrose (D50w (Vial) -) 50 ml IVPUSH Q15M PRN PRN Reason: BLOOD SUGAR < 60 Last Admin: 07/24/16 06:30 Dose: 50 ml Fluconazole (Diflucan 200 Mg/Ns Premixed Ivpb -) 100 mls @ 100 mls/hr IVPB DAILY [facility] Last Admin: 07/24/16 09:24 Dose: 100 mls/hr Norepinephrine Bitartrate 8, (000 mcg/ Dextrose) 500 mls @ 18.75 mls/hr IV TITR [facility]ERY; 5 MCG/MIN PRN Reason: Protocol Last Admin: 07/25/16 02:25 Dose: 7.5 mls/hr Famotidine/Sodium Chloride (Pepcid 20 Mg Premixed Ivpb -) 50 mls @ 100 mls/hr IVPB BID [facility] Last Admin: 07/24/16 21:39 Dose: 100 mls/hr Vasopressin 50 units/ Sodium (Chloride) 100 mls @ 6 mls/hr IVPB ASDIR AVERY; 3 UNITS/HR PRN Reason: Protocol Last Admin: 07/24/16 15:27 Dose: 4.8 mls/hr Meropenem 1 gm/ Dextrose 100 mls @ 100 mls/hr IVPB Q8H-IV [facility] PRN Reason: Protocol Last Admin: 07/25/16 02:24 Dose: 100 mls/hr Clindamycin Phosphate (Cleocin 600 Mg Premix Ivpb -) 50 mls @ 100 mls/hr IVPB Q8H-IV [facility] Last Admin: 07/25/16 02:25 Dose: 100 mls/hr Insulin Aspart (Novolog Vial Sliding Scale -) 1 vial SQ ACHS [facility] PRN Reason: Protocol Last Admin: 07/25/16 06:24 Dose: Not Given Silver Sulfadiazine (Silvadene -) 1 applic TP DAILY [facility] Last Admin: 07/24/16 09:50 Dose: 1 applic - Objective Vital Signs: Vital Signs Temperature 101.0 F H 07/25/16 08:00 Pulse Rate 87 07/25/16 08:00 Respiratory Rate 24 07/25/16 08:00 Blood Pressure 101/50 07/25/16 08:00 O2 Sat by Pulse Oximetry (%) 100 07/25/16 08:00 Eyes: Yes: WNL HENT: Yes: Atraumatic Neck: Yes: Supple Cardiovascular: Yes: Regular Rate and Rhythm Respiratory: Yes: Mechanically Ventilated Gastrointestinal: Yes: Normal Bowel Sounds ...Rectal Exam: Yes: Deferred Genitourinary: Yes: WNL Edema: No Neurological: Yes: Other (comatose) Labs: CBC, BMP 07/25/16 05:35 07/25/16 05:35 INR, PTT INR 1.20 (0.82-1.09) H 07/25/16 05:35 Fibrinogen 473.0 mg/dL (238-498) 07/24/16 05:30
[2016-07-25] MEDS: FLUCONAZOLE 200 MG/NS 100 ML IVPB SCH (09:41)
[2016-07-25] MEDS: FAMOTIDINE 20 MG/50 ML IVPB 50 ML IVPB SCH (09:41)
[2016-07-25] MEDS: CHLORHEXIDINE GLUCONATE 0.12% 15ML CUP MM SCH ×2 (09:41→21:12)
[2016-07-25] MEDS: SILVER SULFADIAZINE 1% TOP CREAM 50 GM JAR TP SCH (09:42)
[2016-07-25] MEDS ORDERED: VASOPRESSIN 20 UNITS/ML VIAL IV ONE (09:47)
[2016-07-25] MEDS: VASOPRESSIN 50 UNITS in SODIUM CHLORIDE 97.5 ML IVPB SCH ×2 (09:49→14:16)
[2016-07-25] MEDS ORDERED: MAGNESIUM SULF 50% (8.12 MEQ/2 ML-1 GM VIAL) IVPB ONE ×2 (11:30→16:00)
--- NOTE | 2016-07-25 11:32 | PN ---
Teaching Attending Note Name of Resident: Trevin Terrazas ATTENDING PHYSICIAN STATEMENT I saw and evaluated the patient. I reviewed the resident's note and discussed the case with the resident. I agree with the resident's findings and plan as documented. SUBJECTIVE: Patient seen and examined in the ICU. Remains poorly responsive on AC Mode of vent. Remains on NE & Vasopressin for hemodynamic support. Remains unresponsive despite being off sedation for 4 days. OBJECTIVE: Intake & Output 07/22/16 07/23/16 07/24/16 07/25/16 23:59 23:59 23:59 23:59 Intake Total 2888 3189.0 1297.6 637.6 Output Total 2540 1560 510 400 Balance 348 1629.0 787.6 237.6 Weight 194 lb 3.636 oz 194 lb 0.108 oz 183 lb 13.848 oz 167 lb 1.766 oz Last Vital Signs Temp Pulse Resp BP Pulse Ox 99.1 F 85 28 H 100/60 87 L 07/25/16 10:00 07/25/16 10:00 07/25/16 11:21 07/25/16 10:00 07/25/16 09:15 Active Medications Acetaminophen (Ofirmev Injection -) 1,000 mg IVPB Q6H PRN PRN Reason: FEVER Last Admin: 07/25/16 02:27 Dose: 1,000 mg Albuterol/Ipratropium (Duoneb -) 1 amp NEB Q6H PRN PRN Reason: SHORTNESS OF BREATH Chlorhexidine Gluconate (Hibiclens For Decolonization -) 1 applic TP HS [facility] Last Admin: 07/24/16 21:39 Dose: 1 applic Chlorhexidine Gluconate (Peridex -) 15 ml MM BID [facility] Last Admin: 07/25/16 09:41 Dose: 15 ml Dextrose (D50w (Vial) -) 50 ml IVPUSH Q15M PRN PRN Reason: BLOOD SUGAR < 60 Last Admin: 07/24/16 06:30 Dose: 50 ml Fluconazole (Diflucan 200 Mg/Ns Premixed Ivpb -) 100 mls @ 100 mls/hr IVPB DAILY [facility] Last Admin: 07/25/16 09:41 Dose: 100 mls/hr Norepinephrine Bitartrate 8, (000 mcg/ Dextrose) 500 mls @ 18.75 mls/hr IV TITR [facility]ERY; 5 MCG/MIN PRN Reason: Protocol Last Admin: 07/25/16 02:25 Dose: 7.5 mls/hr Famotidine/Sodium Chloride (Pepcid 20 Mg Premixed Ivpb -) 50 mls @ 100 mls/hr IVPB BID [facility] Last Admin: 07/25/16 09:41 Dose: 100 mls/hr Vasopressin 50 units/ Sodium (Chloride) 100 mls @ 6 mls/hr IVPB ASDIR [facility]; 3 UNITS/HR PRN Reason: Protocol Last Admin: 07/25/16 09:49 Dose: 4.8 mls/hr Meropenem 1 gm/ Dextrose 100 mls @ 100 mls/hr IVPB Q8H-IV [facility] PRN Reason: Protocol Last Admin: 07/25/16 09:40 Dose: 100 mls/hr Clindamycin Phosphate (Cleocin 600 Mg Premix Ivpb -) 50 mls @ 100 mls/hr IVPB Q8H-IV [facility] Last Admin: 07/25/16 10:44 Dose: 100 mls/hr Insulin Aspart (Novolog Vial Sliding Scale -) 1 vial SQ ACHS [facility] PRN Reason: Protocol Last Admin: 07/25/16 11:07 Dose: Not Given Magnesium Sulfate (Magnesium Sulfate) 2 gm IVPB ONCE ONE Stop: 07/25/16 10:33 Silver Sulfadiazine (Silvadene -) 1 applic TP DAILY [facility] Last Admin: 07/25/16 09:42 Dose: 1 applic Gen: intubated, poorly responsive Heart: RRR Lung: scattered rhonchi Abd: soft, dressings intact Ext: + edema, fingers dusky Laboratory Results - last 24 hr 07/23/16 07/24/16 07/24/16 16:39 05:30 05:30 WBC RBC Hgb Hct MCV MCHC RDW Plt Count MPV Neutrophils % Lymphocytes % Haptoglobin 269 H INR Fibrinogen Puncture Site ABG pH ABG pCO2 at Pt Temp ABG pO2 at Pt Temp ABG HCO3 ABG O2 Sat (Measured) ABG O2 Content ABG Base Excess Heber Test O2 Delivery Device Oxygen Flow Rate Vent Mode Vent Rate Mechanical Rate PEEP Pressure Support Vent Sodium Potassium Chloride Carbon Dioxide Anion Gap BUN Creatinine Creat Clearance w eGFR POC Glucometer 286.08123 Random Glucose Lactic Acid Calcium Phosphorus Magnesium Total Bilirubin AST ALT Alkaline Phosphatase LD Total 562 H Total Protein Albumin 07/24/16 07/24/16 07/24/16 11:57 17:00 17:00 WBC RBC Hgb Hct MCV MCHC RDW Plt Count MPV Neutrophils % Lymphocytes % Haptoglobin INR Fibrinogen Puncture Site ABG pH ABG pCO2 at Pt Temp ABG pO2 at Pt Temp ABG HCO3 ABG O2 Sat (Measured) ABG O2 Content ABG Base Excess Heber Test O2 Delivery Device Oxygen Flow Rate Vent Mode Vent Rate Mechanical Rate PEEP Pressure Support Vent Sodium 133 L Potassium 3.4 L Chloride 96 L Carbon Dioxide 26 Anion Gap 11 BUN 29 H Creatinine 0.8 Creat Clearance w eGFR POC Glucometer 65.78801 Random Glucose 68 L D Lactic Acid 2.327 H* Calcium 6.7 L* Phosphorus Magnesium 1.7 L Total Bilirubin AST ALT Alkaline Phosphatase LD Total Total Protein Albumin 07/24/16 07/24/16 07/25/16 17:59 21:43 05:35 WBC 10.9 H RBC 2.73 L Hgb 8.2 L Hct 23.8 L MCV 86.9 MCHC 34.4 RDW 13.7 Plt Count 35 L* D MPV 10.9 Neutrophils % Y Lymphocytes % Y Haptoglobin INR Fibrinogen Puncture Site ABG pH ABG pCO2 at Pt Temp ABG pO2 at Pt Temp ABG HCO3 ABG O2 Sat (Measured) ABG O2 Content ABG Base Excess Heber Test O2 Delivery Device Oxygen Flow Rate Vent Mode Vent Rate Mechanical Rate PEEP Pressure Support Vent Sodium Potassium Chloride Carbon Dioxide Anion Gap BUN Creatinine Creat Clearance w eGFR POC Glucometer 68.81613 77.55051 Random Glucose Lactic Acid Calcium Phosphorus Magnesium Total Bilirubin AST ALT Alkaline Phosphatase LD Total Total Protein Albumin 07/25/16 07/25/16 07/25/16 05:35 05:35 05:35 WBC RBC Hgb Hct MCV MCHC RDW Plt Count MPV Neutrophils % Lymphocytes % Haptoglobin INR 1.20 H Fibrinogen 550.0 H Puncture Site ABG pH ABG pCO2 at Pt Temp ABG pO2 at Pt Temp ABG HCO3 ABG O2 Sat (Measured) ABG O2 Content ABG Base Excess Heber Test O2 Delivery Device Oxygen Flow Rate Vent Mode Vent Rate Mechanical Rate PEEP Pressure Support Vent Sodium 136 Potassium 3.4 L Chloride 96 L Carbon Dioxide 26 Anion Gap 14 BUN 26 H Creatinine 0.8 Creat Clearance w eGFR > 60 POC Glucometer Random Glucose 81 Lactic Acid 2.063 H* Calcium 6.5 L* Phosphorus 3.0 Magnesium 1.5 L Total Bilirubin 1.0 D AST 214 H D ALT 66 D Alkaline Phosphatase 77 LD Total Total Protein 3.8 L Albumin 1.0 L 07/25/16 07/25/16 05:40 07:15 WBC RBC Hgb Hct MCV MCHC RDW Plt Count MPV Neutrophils % Lymphocytes % Haptoglobin INR Fibrinogen Puncture Site Left radial ABG pH 7.50 H ABG pCO2 at Pt Temp 32.9 L ABG pO2 at Pt Temp 137.0 H D ABG HCO3 25.6 ABG O2 Sat (Measured) 99.2 H ABG O2 Content 11.5 L ABG Base Excess 2.9 H Heber Test Positive O2 Delivery Device Vent Oxygen Flow Rate 50% Vent Mode A/c Vent Rate 14 Mechanical Rate Yes PEEP 5.0 Pressure Support Vent 400 Sodium Potassium Chloride Carbon Dioxide Anion Gap BUN Creatinine Creat Clearance w eGFR POC Glucometer 94.04703 Random Glucose Lactic Acid Calcium Phosphorus Magnesium Total Bilirubin AST ALT Alkaline Phosphatase LD Total Total Protein Albumin ASSESSMENT AND PLAN: Perforated Duodenal Ulcer Peritonitis s/p ex-lap/omental patch repair 07/16 Acute Respiratory Failure Septic Shock Acute Kidney Injury Lactic Acidosis Leukopenia/Thrombocytopenia likely from sepsis DM Encephalopathy -> etiology to be determined - ABX per ID - IVF to keep CVP 8-12 - titrate pressors to maintain MAP >65 - monitor urine output, creatinine - trend lactate - taper FiO2 to keep Spo2 >90% - monitor ABG - transfuse platelets if <20K, cryo if fibrinogen <100 - DVT/GI prophylaxis - continue ICU monitoring - prognosis appears poor, will need to discuss further GOC with family Dr Dubon critical care time spent in reviewing chart, evaluating patient and formulating plan 40 min
[2016-07-25] MEDS ORDERED: POTASSIUM CHLORIDE ORAL LIQUID 20 MEQ/15 ML PO ONE (11:33)
--- NOTE | 2016-07-25 11:51 | PN ---
Progress Note, Physician History of Present Illness: hypotensive, on Pressor support, vent supported, unresponsive, no significant changes - Current Medication List Current Medications: Active Medications Acetaminophen (Ofirmev Injection -) 1,000 mg IVPB Q6H PRN PRN Reason: FEVER Last Admin: 07/25/16 02:27 Dose: 1,000 mg Albuterol/Ipratropium (Duoneb -) 1 amp NEB Q6H PRN PRN Reason: SHORTNESS OF BREATH Chlorhexidine Gluconate (Hibiclens For Decolonization -) 1 applic TP HS [facility] Last Admin: 07/24/16 21:39 Dose: 1 applic Chlorhexidine Gluconate (Peridex -) 15 ml MM BID [facility] Last Admin: 07/25/16 09:41 Dose: 15 ml Dextrose (D50w (Vial) -) 50 ml IVPUSH Q15M PRN PRN Reason: BLOOD SUGAR < 60 Last Admin: 07/24/16 06:30 Dose: 50 ml Fluconazole (Diflucan 200 Mg/Ns Premixed Ivpb -) 100 mls @ 100 mls/hr IVPB DAILY [facility] Last Admin: 07/25/16 09:41 Dose: 100 mls/hr Norepinephrine Bitartrate 8, (000 mcg/ Dextrose) 500 mls @ 18.75 mls/hr IV TITR [facility]; 5 MCG/MIN PRN Reason: Protocol Last Admin: 07/25/16 02:25 Dose: 7.5 mls/hr Famotidine/Sodium Chloride (Pepcid 20 Mg Premixed Ivpb -) 50 mls @ 100 mls/hr IVPB BID [facility] Last Admin: 07/25/16 09:41 Dose: 100 mls/hr Vasopressin 50 units/ Sodium (Chloride) 100 mls @ 6 mls/hr IVPB ASDIR [facility]; 3 UNITS/HR PRN Reason: Protocol Last Admin: 07/25/16 09:49 Dose: 4.8 mls/hr Meropenem 1 gm/ Dextrose 100 mls @ 100 mls/hr IVPB Q8H-IV [facility] PRN Reason: Protocol Last Admin: 07/25/16 09:40 Dose: 100 mls/hr Clindamycin Phosphate (Cleocin 600 Mg Premix Ivpb -) 50 mls @ 100 mls/hr IVPB Q8H-IV [facility] Last Admin: 07/25/16 10:44 Dose: 100 mls/hr Insulin Aspart (Novolog Vial Sliding Scale -) 1 vial SQ ACHS [facility] PRN Reason: Protocol Last Admin: 07/25/16 11:07 Dose: Not Given Silver Sulfadiazine (Silvadene -) 1 applic TP DAILY [facility] Last Admin: 07/25/16 09:42 Dose: 1 applic - Objective Vital Signs: Vital Signs Temperature 99.1 F 07/25/16 10:00 Pulse Rate 85 07/25/16 10:00 Respiratory Rate 28 H 07/25/16 11:21 Blood Pressure 100/60 07/25/16 10:00 O2 Sat by Pulse Oximetry (%) 87 L 07/25/16 09:15 Constitutional: Yes: Other Cardiovascular: Yes: S1, S2 Respiratory: Yes: Intubated, Mechanically Ventilated Gastrointestinal: Yes: Other Edema: LUE: 2+, RUE: 2+, LLE: 2+, RLE: 2+ Integumentary: Yes: Other Psychiatric: Yes: Other Labs: CBC, BMP 07/25/16 05:35 07/25/16 05:35 INR, PTT INR 1.20 (0.82-1.09) H 07/25/16 05:35 Fibrinogen 550.0 mg/dL (238-498) H 07/25/16 05:35 Assessment/Plan Problem List - Problems (1) Abdominal pain Code(s): R10.9 - UNSPECIFIED ABDOMINAL PAIN Qualifiers: Qualified Code(s): R10.33 - Periumbilical pain (2) Perforated abdominal viscus Code(s): [id number] - (3) Perforated viscus Code(s): R19.8 - OTH SYMPTOMS AND SIGNS INVOLVING THE DGSTV SYS AND ABDOMEN (4) Hypertension Code(s): I10 - ESSENTIAL (PRIMARY) HYPERTENSION Qualifiers: Qualified Code(s): I10 - Essential (primary) hypertension lactic acidosis fevers heam note noted generalized swelling plan continue current mgmt nutrition patient mentally not responding will follow ct of the brain transfuse platelets if <20K, cryo if fibrinogen <100 as per heam DVT/GI prophylaxis urine output decent cc time 40 min
--- NOTE | 2016-07-25 12:19 | PN ---
Progress Note (short form) - Note Progress Note: Renal Follow up for ZAHIRA/Metabolic acidosis Pt seen and examined in the ICU remains on Vent via ET tube on Pressers Vital Signs Temperature 100.8 F H 07/25/16 12:00 Pulse Rate 92 H 07/25/16 12:00 Respiratory Rate 28 H 07/25/16 12:00 Blood Pressure 99/50 07/25/16 12:00 O2 Sat by Pulse Oximetry (%) 87 L 07/25/16 09:15 Intake & Output 07/22/16 07/23/16 07/24/16 07/25/16 23:59 23:59 23:59 23:59 Intake Total 2888 3189.0 1297.6 637.6 Output Total 2540 1560 510 400 Balance 348 1629.0 787.6 237.6 Weight 194 lb 3.636 oz 194 lb 0.108 oz 183 lb 13.848 oz 167 lb 1.766 oz Gen: on Vent, NAD CVS: RRR, No M/R Lungs: Dec BS b/l lung andino Abd: Abd pain in palce, sutures appear clean. + distension Ext: 2+ LE edema, + bulle CBC, BMP 07/25/16 05:35 07/25/16 05:35 Current Medications Acetaminophen (Ofirmev Injection -) 1,000 mg IVPB Q6H PRN PRN Reason: FEVER Last Admin: 07/25/16 02:27 Dose: 1,000 mg Albuterol/Ipratropium (Duoneb -) 1 amp NEB Q6H PRN PRN Reason: SHORTNESS OF BREATH Chlorhexidine Gluconate (Hibiclens For Decolonization -) 1 applic TP HS [facility] Last Admin: 07/24/16 21:39 Dose: 1 applic Chlorhexidine Gluconate (Peridex -) 15 ml MM BID [facility] Last Admin: 07/25/16 09:41 Dose: 15 ml Dextrose (D50w (Vial) -) 50 ml IVPUSH Q15M PRN PRN Reason: BLOOD SUGAR < 60 Last Admin: 07/24/16 06:30 Dose: 50 ml Fluconazole (Diflucan 200 Mg/Ns Premixed Ivpb -) 100 mls @ 100 mls/hr IVPB DAILY [facility] Last Admin: 07/25/16 09:41 Dose: 100 mls/hr Norepinephrine Bitartrate 8, (000 mcg/ Dextrose) 500 mls @ 18.75 mls/hr IV TITR [facility]; 5 MCG/MIN PRN Reason: Protocol Last Admin: 07/25/16 02:25 Dose: 7.5 mls/hr Famotidine/Sodium Chloride (Pepcid 20 Mg Premixed Ivpb -) 50 mls @ 100 mls/hr IVPB BID [facility] Last Admin: 07/25/16 09:41 Dose: 100 mls/hr Vasopressin 50 units/ Sodium (Chloride) 100 mls @ 6 mls/hr IVPB ASDIR [facility]; 3 UNITS/HR PRN Reason: Protocol Last Admin: 07/25/16 09:49 Dose: 4.8 mls/hr Meropenem 1 gm/ Dextrose 100 mls @ 100 mls/hr IVPB Q8H-IV [facility] PRN Reason: Protocol Last Admin: 07/25/16 09:40 Dose: 100 mls/hr Clindamycin Phosphate (Cleocin 600 Mg Premix Ivpb -) 50 mls @ 100 mls/hr IVPB Q8H-IV [facility] Last Admin: 07/25/16 10:44 Dose: 100 mls/hr Insulin Aspart (Novolog Vial Sliding Scale -) 1 vial SQ ACHS [facility] PRN Reason: Protocol Last Admin: 07/25/16 11:07 Dose: Not Given Silver Sulfadiazine (Silvadene -) 1 applic TP DAILY [facility] Last Admin: 07/25/16 09:42 Dose: 1 applic A/P 65 year old woman with PMhx of hypertension, hypercholesterolemia, diabetes mellitus who presented with Abd pain and found to have perforated Abd viscus s/ p emergent Sx now with Septic Shock, ZAHIRA and Metabolic Acidosis. #Anion gap Metabolic acidosis now resolved and now with resp/metabolic alkalosis pt with post hypercapnic metabolic alkalosis trend ph and serum bicarb off bicarb gtt lactic acidosis is improved #Non-oliguric Acute Renal failure renal function improved continue supportive care #Sepsis/Perforated Abd Viscus Treatment as per ICU and Surgery #Hypokalemia/Hypomagnesemia Give IV mag sulfate IV and KCl Trend electrolytes BID Thank you Cyril Tubbs DO
--- NOTE | 2016-07-25 15:18 | PN ---
Progress Note (short form) - Note Progress Note: PAtient seen and examined intubated Last Vital Signs Temp Pulse Resp BP Pulse Ox 101.0 F H 97 H 29 H 95/49 87 L 07/25/16 14:00 07/25/16 14:00 07/25/16 14:10 07/25/16 14:00 07/25/16 09:15 unresponsive anasarca Cor: RSR, No murmurs, No gallops Lungs: Clear to P&A Abd: Soft, Normal bowel sounds, No organomegaly Ext:anasarca, cutaneous blebs Abnormal Lab Results 07/24/16 07/24/16 07/24/16 05:30 17:00 17:00 WBC RBC Hgb Hct Plt Count Haptoglobin 269 H INR Fibrinogen ABG pH ABG pCO2 at Pt Temp ABG pO2 at Pt Temp ABG O2 Sat (Measured) ABG O2 Content ABG Base Excess Sodium 133 L Potassium 3.4 L Chloride 96 L BUN 29 H Random Glucose 68 L D Lactic Acid 2.327 H* Calcium 6.7 L* Magnesium 1.7 L AST Total Protein Albumin 07/25/16 07/25/16 07/25/16 05:35 05:35 05:35 WBC 10.9 H RBC 2.73 L Hgb 8.2 L Hct 23.8 L Plt Count 35 L* D Haptoglobin INR Fibrinogen ABG pH ABG pCO2 at Pt Temp ABG pO2 at Pt Temp ABG O2 Sat (Measured) ABG O2 Content ABG Base Excess Sodium Potassium 3.4 L Chloride 96 L BUN 26 H Random Glucose Lactic Acid 2.063 H* Calcium 6.5 L* Magnesium 1.5 L AST 214 H D Total Protein 3.8 L Albumin 1.0 L 07/25/16 07/25/16 05:35 07:15 WBC RBC Hgb Hct Plt Count Haptoglobin INR 1.20 H Fibrinogen 550.0 H ABG pH 7.50 H ABG pCO2 at Pt Temp 32.9 L ABG pO2 at Pt Temp 137.0 H D ABG O2 Sat (Measured) 99.2 H ABG O2 Content 11.5 L ABG Base Excess 2.9 H Sodium Potassium Chloride BUN Random Glucose Lactic Acid Calcium Magnesium AST Total Protein Albumin Active Medications Generic Name Dose Route Start Last Admin Trade Name Freq PRN Reason Stop Dose Admin Acetaminophen 1,000 mg 07/19/16 15:43 07/25/16 02:27 Ofirmev Injection - IVPB 1,000 mg Q6H PRN Administration FEVER Albuterol/Ipratropium 1 amp 07/24/16 06:00 Duoneb - NEB Q6H PRN SHORTNESS OF BREATH Chlorhexidine Gluconate 1 applic 07/16/16 22:00 07/24/16 21:39 Hibiclens For Decolonization - TP 1 applic HS AVERY Administration Chlorhexidine Gluconate 15 ml 07/21/16 10:00 07/25/16 09:41 Peridex - MM 15 ml BID AVERY Administration Dextrose 50 ml 07/24/16 07:18 07/24/16 06:30 D50w (Vial) - IVPUSH 50 ml Q15M PRN Administration BLOOD SUGAR < 60 Fluconazole 100 mls @ 100 mls/hr 07/17/16 10:00 07/25/16 09:41 Diflucan 200 Mg/Ns Premixed Ivpb - IVPB 100 mls/hr DAILY [facility] Administration Norepinephrine Bitartrate 8, 500 mls @ 18.75 mls/hr 07/16/16 23:15 07/25/16 02: 25 000 mcg/ Dextrose IV 7.5 mls/hr TITR AVERY Administration Protocol 5 MCG/MIN Famotidine/Sodium Chloride 50 mls @ 100 mls/hr 07/17/16 10:00 07/25/16 09:41 Pepcid 20 Mg Premixed Ivpb - IVPB 100 mls/hr BID AVERY Administration Vasopressin 50 units/ Sodium 100 mls @ 6 mls/hr 07/19/16 14:16 07/25/16 09:49 Chloride IVPB 4.8 mls/hr ASDIR AVERY Administration Protocol 3 UNITS/HR Meropenem 1 gm/ Dextrose 100 mls @ 100 mls/hr 07/19/16 18:00 07/25/16 09:40 IVPB 100 mls/hr Q8H-IV AVERY Administration Protocol Clindamycin Phosphate 50 mls @ 100 mls/hr 07/22/16 14:15 07/25/16 10:44 Cleocin 600 Mg Premix Ivpb - IVPB 100 mls/hr Q8H-IV AVERY Administration Insulin Aspart 1 vial 07/17/16 16:30 07/25/16 11:07 Novolog Vial Sliding Scale - SQ Not Given ACHS COUNT INCLUDES THE [facility] Protocol Magnesium Sulfate 2 gm 07/25/16 15:15 Magnesium Sulfate IVPB 07/25/16 15:16 ONCE ONE Silver Sulfadiazine 1 applic 07/24/16 10:00 07/25/16 09:42 Silvadene - TP 1 applic DAILY [facility] Administration A/P 65 y/o patient with Sepsis with SIRS, severe. Thrombocytopenia likely secondary to her systemic condition. May be component of drug-induced thrombocytopenia. Continue supportive transfusion support - prophylactically maintain platelet count > 20K (while febrile). Monitor coagulation parameters daily - can consider cryo if fibrinogen <100. coagulopathy improved on vit.k platelets [id number] HIT neg. monitor CBC PAtient still febrile/unresponsive ? neurology consult check duplex tenzin xt. ? vascular consult
--- NOTE | 2016-07-25 15:44 | PN ---
Physical Exam: SUBJECTIVE: Patient seen and examined. intubated, nonresponsive. initial family meeting to discuss GOC with darshan, 2 sisters and nephew. discussed resuscitation, pt and have not discussed advanced directives in the past. at present he would like full resuscitative efforts, will discuss with family (has one daughter) about further GOC in the event patient continues to be nonresponsive. fevers have re-started OBJECTIVE: Vital Signs Period Temp Pulse Resp BP Sys/Major Pulse Ox Last 24 Hr 99.1 F-103.1 F 85-97 22-29 94-111/49-64 87-100 EYES: pinpoint pupils, edematous sclera, sclera anicteric. ENT: nares patent with NGT in right nostril draining thick green fluid, oropharynx with ET in place. dry mucous membranes. NECK: Trachea midline. LUNGS: diffuse rhonchi anterior bilaterally, no wheezes, no crackles, quiet at bases. HEART: Regular rate and rhythm, S1, S2 without murmur, rub or gallop. ABDOMEN: distended, firm, no discharge from midline inscion, hyperpigmented skin at staple incision sites, sump pump in place with green fluid discharge. several ruptured vesicles throughout abdomen with scant serous discharge, covered in xeroform EXTREMITIES: nonpalpable pulses in DP/TP/radial b/l, anasarca. acrocyanosis extending from fingernails to mid-forearm. cool extremities SKIN: multiple ruptured vesicles throughout body (abdomen, inner thighs, neck and arms), multiple fluid filled vesicles throughout body, covered in xeroform NEUROLOGICAL: non responsive to verbal or noxious stimuli. constricted pupils. Laboratory Results - last 24 hr 07/24/16 07/24/16 07/24/16 05:30 17:00 17:00 WBC RBC Hgb Hct MCV MCHC RDW Plt Count MPV Neutrophils % Lymphocytes % Haptoglobin 269 H INR Fibrinogen Puncture Site ABG pH ABG pCO2 at Pt Temp ABG pO2 at Pt Temp ABG HCO3 ABG O2 Sat (Measured) ABG O2 Content ABG Base Excess Heber Test O2 Delivery Device Oxygen Flow Rate Vent Mode Vent Rate Mechanical Rate PEEP Pressure Support Vent Sodium 133 L Potassium 3.4 L Chloride 96 L Carbon Dioxide 26 Anion Gap 11 BUN 29 H Creatinine 0.8 Creat Clearance w eGFR POC Glucometer Random Glucose 68 L D Lactic Acid 2.327 H* Calcium 6.7 L* Phosphorus Magnesium 1.7 L Total Bilirubin AST ALT Alkaline Phosphatase Ammonia Total Protein Albumin 07/24/16 07/24/16 07/25/16 17:59 21:43 05:35 WBC 10.9 H RBC 2.73 L Hgb 8.2 L Hct 23.8 L MCV 86.9 MCHC 34.4 RDW 13.7 Plt Count 35 L* D MPV 10.9 Neutrophils % Y Lymphocytes % Y Haptoglobin INR Fibrinogen Puncture Site ABG pH ABG pCO2 at Pt Temp ABG pO2 at Pt Temp ABG HCO3 ABG O2 Sat (Measured) ABG O2 Content ABG Base Excess Heber Test O2 Delivery Device Oxygen Flow Rate Vent Mode Vent Rate Mechanical Rate PEEP Pressure Support Vent Sodium Potassium Chloride Carbon Dioxide Anion Gap BUN Creatinine Creat Clearance w eGFR POC Glucometer 68.07856 77.99174 Random Glucose Lactic Acid Calcium Phosphorus Magnesium Total Bilirubin AST ALT Alkaline Phosphatase Ammonia Total Protein Albumin 07/25/16 07/25/16 07/25/16 05:35 05:35 05:35 WBC RBC Hgb Hct MCV MCHC RDW Plt Count MPV Neutrophils % Lymphocytes % Haptoglobin INR 1.20 H Fibrinogen 550.0 H Puncture Site ABG pH ABG pCO2 at Pt Temp ABG pO2 at Pt Temp ABG HCO3 ABG O2 Sat (Measured) ABG O2 Content ABG Base Excess Heber Test O2 Delivery Device Oxygen Flow Rate Vent Mode Vent Rate Mechanical Rate PEEP Pressure Support Vent Sodium 136 Potassium 3.4 L Chloride 96 L Carbon Dioxide 26 Anion Gap 14 BUN 26 H Creatinine 0.8 Creat Clearance w eGFR > 60 POC Glucometer Random Glucose 81 Lactic Acid 2.063 H* Calcium 6.5 L* Phosphorus 3.0 Magnesium 1.5 L Total Bilirubin 1.0 D AST 214 H D ALT 66 D Alkaline Phosphatase 77 Ammonia Total Protein 3.8 L Albumin 1.0 L 07/25/16 07/25/16 07/25/16 05:40 07:15 11:05 WBC RBC Hgb Hct MCV MCHC RDW Plt Count MPV Neutrophils % Lymphocytes % Haptoglobin INR Fibrinogen Puncture Site Left radial ABG pH 7.50 H ABG pCO2 at Pt Temp 32.9 L ABG pO2 at Pt Temp 137.0 H D ABG HCO3 25.6 ABG O2 Sat (Measured) 99.2 H ABG O2 Content 11.5 L ABG Base Excess 2.9 H Heber Test Positive O2 Delivery Device Vent Oxygen Flow Rate 50% Vent Mode A/c Vent Rate 14 Mechanical Rate Yes PEEP 5.0 Pressure Support Vent 400 Sodium Potassium Chloride Carbon Dioxide Anion Gap BUN Creatinine Creat Clearance w eGFR POC Glucometer 94.26560 120.61145 Random Glucose Lactic Acid Calcium Phosphorus Magnesium Total Bilirubin AST ALT Alkaline Phosphatase Ammonia Total Protein Albumin 07/25/16 14:45 WBC RBC Hgb Hct MCV MCHC RDW Plt Count MPV Neutrophils % Lymphocytes % Haptoglobin INR Fibrinogen Puncture Site ABG pH ABG pCO2 at Pt Temp ABG pO2 at Pt Temp ABG HCO3 ABG O2 Sat (Measured) ABG O2 Content ABG Base Excess Heber Test O2 Delivery Device Oxygen Flow Rate Vent Mode Vent Rate Mechanical Rate PEEP Pressure Support Vent Sodium Potassium Chloride Carbon Dioxide Anion Gap BUN Creatinine Creat Clearance w eGFR POC Glucometer Random Glucose Lactic Acid Calcium Phosphorus Magnesium Total Bilirubin AST ALT Alkaline Phosphatase Ammonia 16.87 Total Protein Albumin Active Medications Generic Name Dose Route Start Last Admin Trade Name Freq PRN Reason Stop Dose Admin Acetaminophen 1,000 mg 07/19/16 15:43 07/25/16 02:27 Ofirmev Injection - IVPB 1,000 mg Q6H PRN Administration FEVER Albuterol/Ipratropium 1 amp 07/24/16 06:00 Duoneb - NEB Q6H PRN SHORTNESS OF BREATH Chlorhexidine Gluconate 1 applic 07/16/16 22:00 07/24/16 21:39 Hibiclens For Decolonization - TP 1 applic HS AVERY Administration Chlorhexidine Gluconate 15 ml 07/21/16 10:00 07/25/16 09:41 Peridex - MM 15 ml BID AVERY Administration Dextrose 50 ml 07/24/16 07:18 07/24/16 06:30 D50w (Vial) - IVPUSH 50 ml Q15M PRN Administration BLOOD SUGAR < 60 Fluconazole 100 mls @ 100 mls/hr 07/17/16 10:00 07/25/16 09:41 Diflucan 200 Mg/Ns Premixed Ivpb - IVPB 100 mls/hr DAILY AVERY Administration Norepinephrine Bitartrate 8, 500 mls @ 18.75 mls/hr 07/16/16 23:15 07/25/16 02: 25 000 mcg/ Dextrose IV 7.5 mls/hr TITR AVERY Administration Protocol 5 MCG/MIN Vasopressin 50 units/ Sodium 100 mls @ 6 mls/hr 07/19/16 14:16 07/25/16 09:49 Chloride IVPB 4.8 mls/hr ASDIR AVERY Administration Protocol 3 UNITS/HR Meropenem 1 gm/ Dextrose 100 mls @ 100 mls/hr 07/19/16 18:00 07/25/16 09:40 IVPB 100 mls/hr Q8H-IV AVERY Administration Protocol Clindamycin Phosphate 50 mls @ 100 mls/hr 07/22/16 14:15 07/25/16 10:44 Cleocin 600 Mg Premix Ivpb - IVPB 100 mls/hr Q8H-IV AVERY Administration Insulin Aspart 1 vial 07/17/16 16:30 07/25/16 11:07 Novolog Vial Sliding Scale - SQ Not Given ACHS AVERY Protocol Magnesium Sulfate 2 gm 07/25/16 15:15 Magnesium Sulfate IVPB 07/25/16 15:16 ONCE ONE Silver Sulfadiazine 1 applic 07/24/16 10:00 07/25/16 09:42 Silvadene - TP 1 applic DAILY AVERY Administration ASSESSMENT/PLAN: 65 yr old woman with HTN, dementia, NIDDM II admitted to ICU with septic shock secondary to perforated duodenal ulcer and peritonitis. Cardivascular Hypotensive requiring pressors - vasopressin 3units/hr + levophed 5mcg, plan to titrate off pressors again today, maintain CVP goal 8-12 - urine output: 500cc/24hr - maintain goal MAP>65, current MAP 75 - bolus NS as needed to maintain BP while titrating off levophed first Pulmonary endotracheal tube placed 07/16 fio2 50%, sat 100%, RR 14 titrate to maintain spo2 >90% - pt RR 24 Gastrointestinal; s/p repair perforated duodenal ulcer 07/16, discussed with dr. huizar; able to initiate enteral tube feeds today - IV diflucan 200mg Ivpb q24hr - day 9 - Meropenem IV 1gm q8hr - day 6 - Cleocin - 600gm q8h - day 3 - pepcid ivpb 20g daily Renal - ZAHIRA (decrease in Cr today) - Bacon placed in ED pre-op 07/16; net positive - corrected calcium 8.5 - consult: Dr. Tubbs; Dose all meds for Cr Cl less then 30 Infectious Disease, continous fevers on abx - consulted - meropenem + diflucan + cleocin - monitor for fevers, tylenol IVPB 1gm q6hr Endocrine NIDDM II - plan for tube feeds, discussed with Dr. Huizar - D5 Iv push 1 amp when BGM <60 - BGM q6hrs w/ goal 140-180, NISS Hematologic - extremity ultrasound pending to r/o DVT - thrombocytopenia likely due to sepsis, r/o DIC - daily fibrinogen levels/coags , if fibrinogen level <100 consider cryoppt - goal to maintain plts>20,000 - consult Dr. Church Neurologic - head CT today for further evaluation due to prolonged unresponsiveness. Head CT without acute pathology(no infarct/mass/hemorrhage/midline shift/edema) Dr. Allen consulted for further neurological evaluation Dementia wrist restraints Diet: trickle tube feeds through NGT, 10cc/hr, Jevity DVT- SCD' given thrombocytopenia Visit type - Emergency Visit Emergency Visit: No - New Patient This patient is new to me today: No - Critical Care Critical Care patient: Yes Total Critical Care Time (in minutes): 45 Critical Care Statement: The care of this patient involved high complexity decision making to prevent further life threatening deterioration of the patient 's condition and/or to evalute & treat vital organ system(s) failure or risk of failure.
[2016-07-25] MEDS ORDERED: NOREPINEPHRINE BITARTRATE 4 MG/4 ML ML IV ONE (21:00)
[2016-07-25] MEDS: CHLORHEXIDINE GLUCONATE 4% CLEANSER FOR DECOLONIZATION TP SCH (21:12)
[2016-07-26] MEDS: MEROPENEM 1 GM in DEXTROSE 5%-WATER - 100 ML IVPB SCH ×3 (01:29→18:12)
[2016-07-26] MEDS: CLINDAMYCIN 600MG PREMIX IVPB 50 ML IVPB SCH ×3 (01:29→18:11)
[2016-07-26 06:12] LABS: BASOPHIL 0.4 % (0-2.0); EOSINOPHIL 0.2 % (0-4.5); MCH 30.1 pg (25.7-33.7); MCHC 34.4 g/dl (32.0-36.0); MEAN CELL VOLUME 87.3 fl (80-96); MEAN PLT VOLUME 11.3 fl (7.5-11.1); NEUTROPHILS 81.1 % (42.8-82.8); PLATELET COUNT 60 K/MM3 (134-434); RDW 13.8 % (11.6-15.6); WHITE BLOOD COUNT 9.7 K/mm3 (4.0-10.0)
[2016-07-26 06:33] LABS: INR 1.27 (0.82-1.09)
[2016-07-26 06:34] LABS: ANION GAP 10 (8-16); CO2 28 mmol/L (21-32); CREATININE 0.8 mg/dL (0.55-1.02); GLUCOSE,RANDOM 179 mg/dL (74-106); MAGNESIUM 1.9 mg/dL (1.8-2.4); SGOT/AST 130 U/L (15-37); SGPT/ALT 57 U/L (12-78)
[2016-07-26 06:36] LABS: ALK PHOS 75 U/L (45-117); BILIRUBIN,TOTAL 0.7 mg/dL (0.2-1.0); TOT PROT 4.2 g/dl (6.4-8.2)
[2016-07-26 06:53] LABS: CALCIUM 6.8 mg/dL (8.5-10.1)
[2016-07-26] MEDS: INSULIN SLIDING SCALE (NOVOLOG) 1 VIAL SQ SCH ×4 (07:24→22:30)
[2016-07-26] MEDS ORDERED: PT OWN MED DRAWER 7, Y5N ONE ×3 (07:41→19:52)
[2016-07-26 07:47] LABS: ALLENS TEST POSITIVE; ART PUNCT SITE LEFT RADIAL; ARTERIAL BLOOD GAS BASE EXCESS 4.8 meq/l (-2-2); ARTERIAL BLOOD GAS HCO3 27.5 meq/L (22-26); ARTERIAL BLOOD GAS PO2 69.3 mmHg (80-100); LPM/O2% 50%; MECH. VENT. YES; PT. ON O2? YES; TYPE OF O2 VENT; VENT RATE 14; VT/PRESS 400
[2016-07-26 07:48] LABS: ARTERIAL BLOOD GAS pH 7.54 (7.35-7.45)
--- NOTE | 2016-07-26 09:24 | PN ---
Progress Note, Physician Chief Complaint: The patient is in the ICU, hypotensive, on Pressor support, vent supported, unresponsive, Maintains fair amount of urine - Current Medication List Current Medications: Active Medications Acetaminophen (Ofirmev Injection -) 1,000 mg IVPB Q6H PRN PRN Reason: FEVER Last Admin: 07/25/16 21:13 Dose: 1,000 mg Albuterol/Ipratropium (Duoneb -) 1 amp NEB Q6H PRN PRN Reason: SHORTNESS OF BREATH Chlorhexidine Gluconate (Hibiclens For Decolonization -) 1 applic TP HS AVERY Last Admin: 07/25/16 21:12 Dose: 1 applic Chlorhexidine Gluconate (Peridex -) 15 ml MM BID AVERY Last Admin: 07/25/16 21:12 Dose: 15 ml Dextrose (D50w (Vial) -) 50 ml IVPUSH Q15M PRN PRN Reason: BLOOD SUGAR < 60 Last Admin: 07/24/16 06:30 Dose: 50 ml Fluconazole (Diflucan 200 Mg/Ns Premixed Ivpb -) 100 mls @ 100 mls/hr IVPB DAILY AVERY Last Admin: 07/25/16 09:41 Dose: 100 mls/hr Norepinephrine Bitartrate 8, (000 mcg/ Dextrose) 500 mls @ 18.75 mls/hr IV TITR AVERY; 5 MCG/MIN PRN Reason: Protocol Last Titration: 07/26/16 04:00 Dose: 1 mcg/min Vasopressin 50 units/ Sodium (Chloride) 100 mls @ 6 mls/hr IVPB ASDIR AVERY; 3 UNITS/HR PRN Reason: Protocol Last Admin: 07/25/16 14:16 Dose: Not Given Meropenem 1 gm/ Dextrose 100 mls @ 100 mls/hr IVPB Q8H-IV AVERY PRN Reason: Protocol Last Admin: 07/26/16 01:29 Dose: 100 mls/hr Clindamycin Phosphate (Cleocin 600 Mg Premix Ivpb -) 50 mls @ 100 mls/hr IVPB Q8H-IV AVERY Last Admin: 07/26/16 01:29 Dose: 100 mls/hr Insulin Aspart (Novolog Vial Sliding Scale -) 1 vial SQ ACHS AVERY PRN Reason: Protocol Last Admin: 07/26/16 07:24 Dose: 2 units Ranitidine HCl (Zantac Oral Solution -) 150 mg PO DAILY [facility] Silver Sulfadiazine (Silvadene -) 1 applic TP DAILY [facility] Last Admin: 07/25/16 09:42 Dose: 1 applic - Objective Vital Signs: Vital Signs Temperature 99.7 F H 07/26/16 08:00 Pulse Rate 85 07/26/16 08:00 Respiratory Rate 27 H 07/26/16 08:00 Blood Pressure 84/47 07/26/16 08:00 O2 Sat by Pulse Oximetry (%) 96 07/26/16 08:00 Cardiovascular: Yes: S1, S2 Respiratory: Yes: Mechanically Ventilated Gastrointestinal: Yes: Hypoactive Bowel Sounds Extremities: Yes: Other (Gangrenous changes on all four extremities) Neurological: Yes: Unresponsive Labs: CBC, BMP 07/26/16 05:15 07/26/16 05:15 INR, PTT INR 1.27 (0.82-1.09) H 07/26/16 05:15 Fibrinogen 560.0 mg/dL (238-498) H 07/26/16 05:15 Problem List - Problems (1) Perforated abdominal viscus Code(s): [id number] - (2) ZAHIRA (acute kidney injury) Code(s): N17.9 - ACUTE KIDNEY FAILURE, UNSPECIFIED (3) Hypomagnesemia Code(s): E83.42 - HYPOMAGNESEMIA (4) Metabolic acidemia Code(s): E87.2 - ACIDOSIS (5) Metabolic acidosis Code(s): E87.2 - ACIDOSIS Assessment/Plan 65 y/o female with profound hypotension, hypoperfusion, lactic acidosis, Hypomagnesemia, progressive gangrene of the extremities, poorly responsive, Vent supported. Clinical status detriorating, with no meaningful intervention open at this point to improve her status. No specific interventions suggested at this pont. Will continue supportive care...pressors, antibiotics, electrolyte supplements, correction of acid-base abnormalities etc. Overall prognosis poor. Katty Singer MD
[2016-07-26] MEDS: SILVER SULFADIAZINE 1% TOP CREAM 50 GM JAR TP SCH (09:25)
[2016-07-26] MEDS: CHLORHEXIDINE GLUCONATE 0.12% 15ML CUP MM SCH ×2 (09:25→22:00)
[2016-07-26] MEDS: RANITIDINE HCL 150 MG/10 ML UNIT-DOSE CUP PO SCH (09:28)
[2016-07-26] MEDS: FLUCONAZOLE 200 MG/NS 100 ML IVPB SCH (09:31)
--- NOTE | 2016-07-26 11:44 | PN ---
Progress Note (short form) - Note Progress Note: Patient seen and examined in the ICU. low dose vasopressor continuing low grade temp remaines obtunded, grimaces to pain only negative fluid balance had UE duplex with prelim read of possible DVT, however thrombocytopenic, no heparin started been intubated 10day OBJECTIVE: Vital Signs Temp 99.9 F H 07/26/16 10:00 Pulse 88 07/26/16 10:05 Resp 24 07/26/16 10:05 BP 102/50 07/26/16 10:00 Pulse Ox 96 07/26/16 10:05 Intake & Output 07/25/16 07/25/16 07/26/16 11:59 23:59 11:59 Intake Total 637.6 1353.8 732 Output Total 400 2500 1500 Balance 237.6 -1146.2 -768 Weight 75.8 kg 71.622 kg Intake: IV 147.6 223.8 72 Pitressin - 50 Units In 57.6 28.8 Normal Saline - 97.5 ml @ 3 UNITS/HR 6 mls/hr IVPB ASDIR AVERY Rx#: [id number] Levophed drip 90 195 72 IVPB 250 650 450 Oral 0 0 Tube Feeding 120 320 140 Tube Irrigant 120 160 70 Output: Drainage 800 500 Right Abdomen 800 500 Urine 400 1700 1000 Bacon 400 1700 1000 Other: Voiding Method Indwelling Catheter Indwelling Catheter Indwelling Catheter Bowel Movement Yes: large, green watery, luis 500 cc Yes No # Bowel Movements 1 Weight Measurement Method [facility] Active Medications Acetaminophen (Ofirmev Injection -) 1,000 mg IVPB Q6H PRN PRN Reason: FEVER Last Admin: 07/25/16 21:13 Dose: 1,000 mg Albuterol/Ipratropium (Duoneb -) 1 amp NEB Q6H PRN PRN Reason: SHORTNESS OF BREATH Chlorhexidine Gluconate (Hibiclens For Decolonization -) 1 applic TP HS [facility] Last Admin: 07/25/16 21:12 Dose: 1 applic Chlorhexidine Gluconate (Peridex -) 15 ml MM BID AVERY Last Admin: 07/26/16 09:25 Dose: 15 ml Dextrose (D50w (Vial) -) 50 ml IVPUSH Q15M PRN PRN Reason: BLOOD SUGAR < 60 Last Admin: 07/24/16 06:30 Dose: 50 ml Fluconazole (Diflucan 200 Mg/Ns Premixed Ivpb -) 100 mls @ 100 mls/hr IVPB DAILY [facility] Last Admin: 07/26/16 09:31 Dose: 100 mls/hr Norepinephrine Bitartrate 8, (000 mcg/ Dextrose) 500 mls @ 18.75 mls/hr IV TITR AVERY; 5 MCG/MIN PRN Reason: Protocol Last Titration: 07/26/16 08:00 Dose: 3 mcg/min Vasopressin 50 units/ Sodium (Chloride) 100 mls @ 6 mls/hr IVPB ASDIR AVERY; 3 UNITS/HR PRN Reason: Protocol Last Admin: 07/25/16 14:16 Dose: Not Given Meropenem 1 gm/ Dextrose 100 mls @ 100 mls/hr IVPB Q8H-IV AVERY PRN Reason: Protocol Last Admin: 07/26/16 09:25 Dose: 100 mls/hr Clindamycin Phosphate (Cleocin 600 Mg Premix Ivpb -) 50 mls @ 100 mls/hr IVPB Q8H-IV AVERY Last Admin: 07/26/16 09:25 Dose: 100 mls/hr Insulin Aspart (Novolog Vial Sliding Scale -) 1 vial SQ ACHS AVERY PRN Reason: Protocol Last Admin: 07/26/16 10:51 Dose: 2 units Ranitidine HCl (Zantac Oral Solution -) 150 mg PO DAILY [facility] Last Admin: 07/26/16 09:28 Dose: 150 mg Silver Sulfadiazine (Silvadene -) 1 applic TP DAILY [facility] Last Admin: 07/26/16 09:25 Dose: 1 applic Gen: intubated, poorly responsive, grimaces to noxious stimuli Heart: RRR Lung: scattered rhonchi Abd: soft, dressings intact, + BS Ext: + edema, fingers and toes dusky Neuro: flaccid bilaterally ASSESSMENT AND PLAN: Perforated Duodenal Ulcer Peritonitis s/p ex-lap/omental patch repair 07/16 Acute Respiratory Failure Septic Shock Acute Kidney Injury Lactic Acidosis Leukopenia/Thrombocytopenia likely from sepsis DM Encephalopathy -> etiology to be determined - ABX per ID - IVF to keep CVP 8-12 - titrate pressors to maintain MAP >65 - monitor urine output, creatinine - trend lactate - taper FiO2 to keep Spo2 >90% - monitor ABG, alkalemic and tachypneic - transfuse platelets if <20K, cryo if fibrinogen <100 - DVT/GI prophylaxis - continue ICU monitoring - prognosis appears poor, will need to discuss further GOC/amalia family Kailash Casanova ACNP [phone] CCT
--- NOTE | 2016-07-26 11:54 | PN ---
Progress Note (short form) - Note Progress Note: PAtient seen and examined intubated opens eyes to name Last Vital Signs Temp Pulse Resp BP Pulse Ox 99.9 F H 88 24 102/50 96 07/26/16 10:00 07/26/16 10:05 07/26/16 10:05 07/26/16 10:00 07/26/16 10:05 unresponsive anasarca Cor: RSR, No murmurs, No gallops Lungs: Clear to P&A Abd: Soft, Normal bowel sounds, No organomegaly Ext:anasarca, cutaneous blebs distal fingers discoloration Abnormal Lab Results 07/23/16 07/26/16 07/26/16 07:37 05:15 05:15 RBC 2.81 L Hgb 8.4 L Hct 24.5 L Plt Count 60 L D MPV 11.3 H INR Fibrinogen 560.0 H ABG pH ABG pCO2 at Pt Temp ABG pO2 at Pt Temp ABG HCO3 ABG O2 Content ABG Base Excess BUN Random Glucose Calcium AST Total Protein Albumin Crossmatch See Detail 07/26/16 07/26/16 07/26/16 05:15 05:15 07:00 RBC Hgb Hct Plt Count MPV INR 1.27 H Fibrinogen ABG pH 7.54 H ABG pCO2 at Pt Temp 32.6 L ABG pO2 at Pt Temp 69.3 L D ABG HCO3 27.5 H ABG O2 Content 9.3 L* ABG Base Excess 4.8 H BUN 22 H Random Glucose 179 H D Calcium 6.8 L* AST 130 H D Total Protein 4.2 L Albumin 1.0 L Crossmatch Home Medication List Medication Instructions Recorded Confirmed Type Glipizide Xl [Glucotrol Xl -] 5 mg PO DAILY 01/30/16 07/16/16 History Lisinopril [Zestril] 30 mg PO DAILY 01/30/16 07/16/16 History Metformin HCl [Metformin HCl ER] 1,000 mg PO BIDAC 01/30/16 07/16/16 History Simvastatin 10 mg PO HS 01/30/16 07/16/16 History Aspirin Coated [Ecotrin -] 81 mg PO DAILY 04/15/16 07/16/16 History Active Medications Generic Name Dose Route Start Last Admin Trade Name Freq PRN Reason Stop Dose Admin Acetaminophen 1,000 mg 07/19/16 15:43 07/25/16 21:13 Ofirmev Injection - IVPB 1,000 mg Q6H PRN Administration FEVER Albuterol/Ipratropium 1 amp 07/24/16 06:00 Duoneb - NEB Q6H PRN SHORTNESS OF BREATH Chlorhexidine Gluconate 1 applic 07/16/16 22:00 07/25/16 21:12 Hibiclens For Decolonization - TP 1 applic HS AVERY Administration Chlorhexidine Gluconate 15 ml 07/21/16 10:00 07/26/16 09:25 Peridex - MM 15 ml BID AVERY Administration Dextrose 50 ml 07/24/16 07:18 07/24/16 06:30 D50w (Vial) - IVPUSH 50 ml Q15M PRN Administration BLOOD SUGAR < 60 Fluconazole 100 mls @ 100 mls/hr 07/17/16 10:00 07/26/16 09:31 Diflucan 200 Mg/Ns Premixed Ivpb - IVPB 100 mls/hr DAILY [facility] Administration Norepinephrine Bitartrate 8, 500 mls @ 18.75 mls/hr 07/16/16 23:15 07/26/16 08: 00 000 mcg/ Dextrose IV 3 mcg/min TITR AVERY Titration Protocol 5 MCG/MIN Vasopressin 50 units/ Sodium 100 mls @ 6 mls/hr 07/19/16 14:16 07/25/16 14:16 Chloride IVPB Not Given ASDIR AVERY Protocol 3 UNITS/HR Meropenem 1 gm/ Dextrose 100 mls @ 100 mls/hr 07/19/16 18:00 07/26/16 09:25 IVPB 100 mls/hr Q8H-IV AVERY Administration Protocol Clindamycin Phosphate 50 mls @ 100 mls/hr 07/22/16 14:15 07/26/16 09:25 Cleocin 600 Mg Premix Ivpb - IVPB 100 mls/hr Q8H-IV AVERY Administration Insulin Aspart 1 vial 07/17/16 16:30 07/26/16 10:51 Novolog Vial Sliding Scale - SQ 2 units ACHS AVERY Administration Protocol Ranitidine HCl 150 mg 07/26/16 10:00 07/26/16 09:28 Zantac Oral Solution - PO 150 mg DAILY [facility] Administration Silver Sulfadiazine 1 applic 07/24/16 10:00 07/26/16 09:25 Silvadene - TP 1 applic DAILY [facility] Administration A/P 65 y/o patient with Sepsis with SIRS, severe. Thrombocytopenia likely secondary to her systemic condition. May be component of drug-induced thrombocytopenia. Continue supportive transfusion support - prophylactically maintain platelet count > 20K (while febrile). Monitor coagulation parameters daily coagulopathy improved on vit.k platelets [id number] HIT neg. Duplex --rt. IJV catheter thrombosis and cephalic v. thrombosis will disucss with icu team platelets improving finger discoloration --vascular consult
--- NOTE | 2016-07-26 12:41 | CONSULT ---
Consult - text type - Consultation Consultation Note: Neurology History of Present Illness The patient is a 65-year-old woman, with a significant past medical history of hypertension, hypercholesterolemia, diabetes mellitus and GI disorders who presented to the emergency department via walk-in for further evaluation of abdominal pain for the past 3-4 days with unintentional 20 lb weight loss over the past three months. She required surgical intervention as documented by Dr. Louise. Thereafter, complicated course and patient in ICU, off sedation for several days. CT head without acute changes. Patient not awakening though dose respond to noxious stimulation. On multiple pressors and concern is hypoperfusion and possible anoxic brain injury. Not currently protecting airway and remains intubated and on vent. Past History - Past Medical History Anemia: No Asthma: No Cancer: No Cardiac Disorders: No CVA: No COPD: No CHF: No Dementia: No Diabetes: Yes GI Disorders: Yes Disorders: No HTN: Yes Hypercholesterolemia: Yes Liver Disease: No Seizures: No Thyroid Disease: No - Psycho/Social/Smoking Cessation Hx Anxiety: No Suicidal Ideation: No Smoking History: Never smoked Have you smoked in the past 12 months: No If you are a former smoker, when did you quit?: ONE YRS AGO Hx Alcohol Use: Yes (2 beers daily) Drug/Substance Use Hx: No Substance Use Type: None - Past Medical History Allergies/Adverse Reactions: Allergies Allergy/AdvReac Type Severity Reaction Status Date / Time No Known Drug Allergies Allergy Verified 07/16/16 09:56 Home Medications: Ambulatory Orders Glipizide Xl [Glucotrol Xl -] 5 mg PO DAILY 01/30/16 Lisinopril [Zestril] 30 mg PO DAILY 01/30/16 Metformin HCl [Metformin HCl ER] 1,000 mg PO BIDAC 01/30/16 Simvastatin 10 mg PO HS 01/30/16 Aspirin Coated [Ecotrin -] 81 mg PO DAILY 04/15/16 Review of Systems CONSTITUTIONAL: Present: Loss of appetite. Absent: fever, chills, diaphoresis, generalized weakness, malaise. HEENT: Absent: rhinorrhea, nasal congestion, throat pain, throat swelling, difficulty swallowing, mouth swelling, ear pain, eye pain, visual Changes CARDIOVASCULAR: Absent: chest pain, syncope, palpitations, irregular heart rate , lightheadedness, peripheral edema RESPIRATORY: Absent: cough, shortness of breath, dyspnea with exertion, orthopnea, wheezing, stridor, hemoptysis GASTROINTESTINAL: Present: Abdominal pain. Absent: abdominal distension, nausea , vomiting, diarrhea, constipation, melena, hematochezia GENITOURINARY: Absent: dysuria, frequency, urgency, hesitancy, hematuria, flank pain, genital pain MUSCULOSKELETAL: Absent: myalgia, arthralgia, joint swelling SKIN: Absent: rash, itching, pallor HEMATOLOGIC/IMMUNOLOGIC: Absent: easy bleeding, easy bruising, lymphadenopathy, frequent infections ENDOCRINE: Present: Unexplained weight loss over the past three months. Absent: unexplained weight gain, heat intolerance, cold intolerance NEUROLOGIC: Absent: headache, focal weakness or paresthesias, dizziness, unsteady gait, seizure, mental status changes, bladder or bowel incontinence PSYCHIATRIC: Absent: anxiety, depression, suicidal or homicidal ideation, hallucinations *Physical Exam Vital Signs Period Temp Pulse Resp BP Sys/Major Pulse Ox Last 24 Hr 98.9 F-102.6 F 85-105 19-29 80-112/42-55 96-100 GENERAL: Awake and alert. No acute distress. Frail appearing. HEENT: Normocephalic, atraumatic. +Temporal wasting. PERRL, EOMI. No conjunctival pallor. +Sclera are icteric. +Dry mucous membranes. Oropharynx is clear. NECK: Supple. Full ROM. No JVD. CARDIOVASCULAR: Tachycardic rate but regular rate and rhythm. No murmurs, rubs, or gallops. PULMONARY: +Diffuse dyspneic breath sounds that are equal bilaterally. No wheezing, crackles or rhonchi. ABDOMINAL: Firm but soft abdomen. Diffuse tenderness to palpation without rebound or guarding. Non-distended. No organomegaly. Normoactive bowel sounds. MUSCULOSKELETAL: Normal range of motion at all joints. No bony deformities or tenderness. No CVA tenderness. EXTREMITIES: No cyanosis. No clubbing. No edema. No calf tenderness. SKIN: Tenting of the skin. Jaundiced. No rashes. NEUROLOGICAL: Alert, awake, appropriate. Cranial nerves 2-12 intact. Normal speech. PSYCHIATRIC: Cooperative. Good eye contact. Appropriate mood and affect. CBCD WBC 9.7 K/mm3 (4.0-10.0) 07/26/16 05:15 RBC 2.81 M/mm3 (3.60-5.2) L 07/26/16 05:15 Hgb 8.4 GM/dL (10.7-15.3) L 07/26/16 05:15 Hct 24.5 % (32.4-45.2) L 07/26/16 05:15 MCV 87.3 fl (80-96) 07/26/16 05:15 MCHC 34.4 g/dl (32.0-36.0) 07/26/16 05:15 RDW 13.8 % (11.6-15.6) 07/26/16 05:15 Plt Count 60 K/MM3 (134-434) L D 07/26/16 05:15 MPV 11.3 fl (7.5-11.1) H 07/26/16 05:15 CMP Sodium 140 mmol/L (136-145) 07/26/16 05:15 Potassium 3.9 mmol/L (3.5-5.1) 07/26/16 05:15 Chloride 102 mmol/L (98-107) 07/26/16 05:15 Carbon Dioxide 28 mmol/L (21-32) 07/26/16 05:15 Anion Gap 10 (8-16) 07/26/16 05:15 BUN 22 mg/dL (7-18) H 07/26/16 05:15 Creatinine 0.8 mg/dL (0.55-1.02) 07/26/16 05:15 Creat Clearance w eGFR > 60 (>60) 07/26/16 05:15 Calcium 6.8 mg/dL (8.5-10.1) L* 07/26/16 05:15 Total Bilirubin 0.7 mg/dL (0.2-1.0) D 07/26/16 05:15 AST 130 U/L (15-37) H D 07/26/16 05:15 ALT 57 U/L (12-78) 07/26/16 05:15 Alkaline Phosphatase 75 U/L (45-117) 07/26/16 05:15 Total Protein 4.2 g/dl (6.4-8.2) L 07/26/16 05:15 Albumin 1.0 g/dl (3.4-5.0) L 07/26/16 05:15 EXAM: CT/HEAD CT WITHOUT CONTRAST Interpreted by Dr. Pietro Fried IMPRESSION: Comparison study MRI of the brain February 23, 2015. Findings. Serial axial images of the brain were obtained from foramen magnum to the cranial vertex without intravenous contrast, with coronal, sagittal reconstruction images. No evidence of hydrocephalus, acute subarachnoid hemorrhage, acute intra-axial or extra-axial fluid collection consistent with subdural or epidural hematoma. No mass effect, midline shift, acute ischemic changes, herniation or edema is present. Normal yancey matter white matter differentiation. The cortical sulci, sylvian fissures, perimesencephalic cisterns are not effaced. The CSF spaces are age-appropriate. Supratentorial periventricular chronic white matter microangiopathic ischemic changes are noted. Examination of the bone windows show no fracture. Normal intracranial physiological calcifications are observed. The cranial vascular calcifications are noted. The visualized paranasal sinuses and mastoid air cells are clear. EXAM: CT/ABDOMEN PELVIS CT W/O CONTR Interpreted by Dr. Jennifer Day IMPRESSION: CT scan of the abdomen pelvis following oral contrast administration only Coronal and sagittal reformatted images were obtained No prior is available for comparison. Abdominal pain. Elevated liver function tests CT scan of the abdomen pelvis following oral contrast administration only Coronal and sagittal reformatted images were obtained No prior is available for comparison. Included lower lung demonstrates a small right pleural effusion with consolidation/atelectasis in the dependent portion of the right lower lobe. There is also consolidation/atelectasis in the right middle lobe and in the left lung base. The heart is within normal limits in size. There is a trace of pericardial effusion The liver measures 18.5 cm in craniocaudal length. The spleen, pancreas, both adrenal glands and both kidneys appear unremarkable except for a small left renal cyst measuring 1 cm. There are is excretion of oral contrast within the pelvicalyceal system of both kidneys suggestive of recent intravenous contrast injection. The gallbladder is adequately distended with mild thickening of its wall and small amount of pericholecystic free fluid. There is free air in the upper abdomen floating anteriorly. There is also a small amount of free air in the pelvis floating, anteriorly. A small amount of hyperdense fluid is seen around the liver suggestive of perforated viscus with extravasation of oral contrast. The stomach is partially distended limiting evaluation of its wall with suggestion of thickening of the gastric antrum wall. Duodenum is not well-visualized. There is mild diffuse dilatation of the small bowel loops with thickening of the jejunal loops. There is significant thickening of the transverse and distal portion of the ascending colon consistent with colitis. A few scattered diverticula are present mainly in the descending and proximal sigmoid colon without evidence of acute diverticulitis. Moderate amount of fecal residue in the distal sigmoid colon rule out impaction. Perirectal fat is clear. A Bacon catheter is present within decompressed urinary bladder with minimal intraluminal air. There is a moderate amount of hyperdense fluid in the pelvis seen anterior and superior to the urinary bladder. L4-L5 moderate degenerative disc disease. Visualized osseous structures appear otherwise intact Medical Decision Making 65-year-old woman, with a significant past medical history of hypertension, hypercholesterolemia, diabetes mellitus and GI disorders who required surgical intervention for abdominal distress, complicated course and patient in ICU, off sedation for several days and not waking up. CT head without acute changes. Patient not awakening though dose respond to noxious stimulation. On multiple pressors and concern is hypoperfusion and possible anoxic brain injury. Not currently protecting airway and remains intubated and on vent. Toxic metabolic vs hypoperfusion and anoxic brain injury. Would benefit from MRI but not able to obtain due to vent. May require Trach if unable to be weaned. Has sepsis and getting ongoing treatment. Continue medical optimization and monitor mental status. Thus far, no significant improvement in cognition since sedation weaned.
--- NOTE | 2016-07-26 13:38 | PN ---
Progress Note, Physician Chief Complaint: Remained at her base line no significant improvement in mental status History of Present Illness: 65-year-old F H/O hypertension, hypercholesterolemia, T2DM was presented to ED with abd pain and wt loss underwent exploratory laprotomy for perforated duodenal ulcer on 07/21/16 developed hypotention and sepsis intubated on pressers. p - Current Medication List Current Medications: Active Medications Acetaminophen (Ofirmev Injection -) 1,000 mg IVPB Q6H PRN PRN Reason: FEVER Last Admin: 07/25/16 21:13 Dose: 1,000 mg Albuterol/Ipratropium (Duoneb -) 1 amp NEB Q6H PRN PRN Reason: SHORTNESS OF BREATH Chlorhexidine Gluconate (Hibiclens For Decolonization -) 1 applic TP HS [facility]ERY Last Admin: 07/25/16 21:12 Dose: 1 applic Chlorhexidine Gluconate (Peridex -) 15 ml MM BID [facility] Last Admin: 07/26/16 09:25 Dose: 15 ml Dextrose (D50w (Vial) -) 50 ml IVPUSH Q15M PRN PRN Reason: BLOOD SUGAR < 60 Last Admin: 07/24/16 06:30 Dose: 50 ml Fluconazole (Diflucan 200 Mg/Ns Premixed Ivpb -) 100 mls @ 100 mls/hr IVPB DAILY [facility] Last Admin: 07/26/16 09:31 Dose: 100 mls/hr Norepinephrine Bitartrate 8, (000 mcg/ Dextrose) 500 mls @ 18.75 mls/hr IV TITR [facility]ERY; 5 MCG/MIN PRN Reason: Protocol Last Titration: 07/26/16 08:00 Dose: 3 mcg/min Vasopressin 50 units/ Sodium (Chloride) 100 mls @ 6 mls/hr IVPB ASDIR [facility]ERY; 3 UNITS/HR PRN Reason: Protocol Last Admin: 07/25/16 14:16 Dose: Not Given Meropenem 1 gm/ Dextrose 100 mls @ 100 mls/hr IVPB Q8H-IV [facility] PRN Reason: Protocol Last Admin: 07/26/16 09:25 Dose: 100 mls/hr Clindamycin Phosphate (Cleocin 600 Mg Premix Ivpb -) 50 mls @ 100 mls/hr IVPB Q8H-IV [facility] Last Admin: 07/26/16 09:25 Dose: 100 mls/hr Insulin Aspart (Novolog Vial Sliding Scale -) 1 vial SQ ACHS [facility] PRN Reason: Protocol Last Admin: 07/26/16 10:51 Dose: 2 units Ranitidine HCl (Zantac Oral Solution -) 150 mg PO DAILY [facility] Last Admin: 07/26/16 09:28 Dose: 150 mg Silver Sulfadiazine (Silvadene -) 1 applic TP DAILY [facility] Last Admin: 07/26/16 09:25 Dose: 1 applic - Objective Vital Signs: Vital Signs Temperature 98.9 F 07/26/16 12:00 Pulse Rate 90 07/26/16 12:00 Respiratory Rate 26 H 07/26/16 12:21 Blood Pressure 92/53 07/26/16 12:00 O2 Sat by Pulse Oximetry (%) 96 07/26/16 10:05 Constitutional: Yes: Other (intubated non verbal) Eyes: Yes: Conjunctiva Clear HENT: Yes: Atraumatic, Normocephalic, Other (Intubated) Neck: Yes: WNL, Trachea Midline, Other (IJ at place) Respiratory: Yes: WNL, Regular, CTA Bilaterally, Mechanically Ventilated Edema: Yes Edema: LUE: 2+, RUE: 2+, LLE: 1+, RLE: 1+ Peripheral Pulses WNL: Yes Peripheral Pulses: Right Dorsalis Pedis: 1+, Left Femoral: 1+ Integumentary: Yes: Tenting Neurological: Yes: Unresponsive Labs: CBC, BMP 07/26/16 05:15 07/26/16 05:15 INR, PTT INR 1.27 (0.82-1.09) H 07/26/16 05:15 Fibrinogen 560.0 mg/dL (238-498) H 07/26/16 05:15 Problem List - Problems (1) Perforated abdominal viscus Assessment/Plan: Patient present with Rt UQ pain and with free air, Duodenal ulcer perforation s /p surgery. Code(s): [id number] - (2) Acute metabolic encephalopathy Assessment/Plan: Secondary to hypoperfusion at present non responsive Code(s): G93.41 - METABOLIC ENCEPHALOPATHY (3) Metabolic acidosis Assessment/Plan: Improved Code(s): E87.2 - ACIDOSIS
[2016-07-26] MEDS: VASOPRESSIN 50 UNITS in SODIUM CHLORIDE 97.5 ML IVPB SCH (14:16)
[2016-07-26 18:49] LABS: CALCIUM 7.2 mg/dL (8.5-10.1); COCKROFT - GAULT 102.867; CREATININE 0.6 mg/dL (0.55-1.02)
--- NOTE | 2016-07-26 19:00 | PN ---
Progress Note, Physician History of Present Illness: continues to do poorly minimal response intubated on pressors - Current Medication List Current Medications: Active Medications Acetaminophen (Ofirmev Injection -) 1,000 mg IVPB Q6H PRN PRN Reason: FEVER Last Admin: 07/25/16 21:13 Dose: 1,000 mg Albuterol/Ipratropium (Duoneb -) 1 amp NEB Q6H PRN PRN Reason: SHORTNESS OF BREATH Chlorhexidine Gluconate (Hibiclens For Decolonization -) 1 applic TP HS [facility] Last Admin: 07/25/16 21:12 Dose: 1 applic Chlorhexidine Gluconate (Peridex -) 15 ml MM BID [facility] Last Admin: 07/26/16 09:25 Dose: 15 ml Dextrose (D50w (Vial) -) 50 ml IVPUSH Q15M PRN PRN Reason: BLOOD SUGAR < 60 Last Admin: 07/24/16 06:30 Dose: 50 ml Fluconazole (Diflucan 200 Mg/Ns Premixed Ivpb -) 100 mls @ 100 mls/hr IVPB DAILY [facility] Last Admin: 07/26/16 09:31 Dose: 100 mls/hr Norepinephrine Bitartrate 8, (000 mcg/ Dextrose) 500 mls @ 18.75 mls/hr IV TITR [facility]ERY; 5 MCG/MIN PRN Reason: Protocol Last Titration: 07/26/16 08:00 Dose: 3 mcg/min Vasopressin 50 units/ Sodium (Chloride) 100 mls @ 6 mls/hr IVPB ASDIR [facility]; 3 UNITS/HR PRN Reason: Protocol Last Admin: 07/26/16 14:16 Dose: Not Given Meropenem 1 gm/ Dextrose 100 mls @ 100 mls/hr IVPB Q8H-IV [facility] PRN Reason: Protocol Last Admin: 07/26/16 18:12 Dose: 100 mls/hr Clindamycin Phosphate (Cleocin 600 Mg Premix Ivpb -) 50 mls @ 100 mls/hr IVPB Q8H-IV [facility] Last Admin: 07/26/16 18:11 Dose: 100 mls/hr Insulin Aspart (Novolog Vial Sliding Scale -) 1 vial SQ ACHS [facility] PRN Reason: Protocol Last Admin: 07/26/16 16:30 Dose: Not Given Ranitidine HCl (Zantac Oral Solution -) 150 mg PO DAILY [facility] Last Admin: 07/26/16 09:28 Dose: 150 mg Silver Sulfadiazine (Silvadene -) 1 applic TP DAILY [facility] Last Admin: 07/26/16 09:25 Dose: 1 applic - Objective Vital Signs: Vital Signs Temperature 100.2 F H 07/26/16 18:00 Pulse Rate 96 H 07/26/16 18:00 Respiratory Rate 26 H 07/26/16 18:00 Blood Pressure 95/48 07/26/16 18:00 O2 Sat by Pulse Oximetry (%) 96 07/26/16 10:05 Constitutional: Yes: Other Cardiovascular: Yes: Regular Rate and Rhythm Respiratory: Yes: Intubated, Mechanically Ventilated Gastrointestinal: Yes: Other (absent bowel sounds) Musculoskeletal: Yes: Other Extremities: Yes: Other Integumentary: Yes: Other Labs: CBC, BMP 07/26/16 05:15 07/26/16 18:10 INR, PTT INR 1.27 (0.82-1.09) H 07/26/16 05:15 Fibrinogen 560.0 mg/dL (238-498) H 07/26/16 05:15 Assessment/Plan Problem List - Problems (1) Abdominal pain Code(s): R10.9 - UNSPECIFIED ABDOMINAL PAIN Qualifiers: Qualified Code(s): R10.33 - Periumbilical pain (2) Perforated abdominal viscus Code(s): [id number] - (3) Perforated viscus Code(s): R19.8 - OTH SYMPTOMS AND SIGNS INVOLVING THE DGSTV SYS AND ABDOMEN (4) Hypertension Code(s): I10 - ESSENTIAL (PRIMARY) HYPERTENSION Qualifiers: Qualified Code(s): I10 - Essential (primary) hypertension lactic acidosis fevers heam note noted generalized swelling plan continue current mgmt nutrition patient mentally not responding continue supportive care prognosis henley not look good cc time 40 min
[2016-07-26] MEDS: CHLORHEXIDINE GLUCONATE 4% CLEANSER FOR DECOLONIZATION TP SCH (22:00)
[2016-07-27] MEDS: CLINDAMYCIN 600MG PREMIX IVPB 50 ML IVPB SCH ×3 (02:00→18:29)
[2016-07-27] MEDS: MEROPENEM 1 GM in DEXTROSE 5%-WATER - 100 ML IVPB SCH ×3 (02:30→18:28)
[2016-07-27] MEDS: NOREPINEPHRINE BITARTRATE 8,000 MCG in DEXTROSE 5%-WATER - 492 ML IV SCH ×2 (02:59→23:15)
[2016-07-27] MEDS: INSULIN SLIDING SCALE (NOVOLOG) 1 VIAL SQ SCH ×4 (06:02→22:13)
[2016-07-27 06:41] LABS: BASOPHIL 0.5 % (0-2.0); EOSINOPHIL 0.6 % (0-4.5); MCH 29.1 pg (25.7-33.7); MCHC 33.1 g/dl (32.0-36.0); MEAN CELL VOLUME 87.9 fl (80-96); MEAN PLT VOLUME 11.4 fl (7.5-11.1); NEUTROPHILS 81.7 % (42.8-82.8); PLATELET COUNT 106 K/MM3 (134-434); WHITE BLOOD COUNT 11.9 K/mm3 (4.0-10.0)
[2016-07-27 07:14] LABS: ALK PHOS 76 U/L (45-117); ANION GAP 10 (8-16); BILIRUBIN,TOTAL 0.6 mg/dL (0.2-1.0); CO2 29 mmol/L (21-32); CREATININE 0.6 mg/dL (0.55-1.02); GLUCOSE,RANDOM 252 mg/dL (74-106); MAGNESIUM 1.4 mg/dL (1.8-2.4); PHOSPHOROUS 2.7 mg/dL (2.5-4.9); SGOT/AST 86 U/L (15-37); SGPT/ALT 51 U/L (12-78); TOT PROT 4.4 g/dl (6.4-8.2)
[2016-07-27 07:23] LABS: CALCIUM 6.8 mg/dL (8.5-10.1)
[2016-07-27 07:35] LABS: ARTERIAL BLD GAS O2 SATURATION 96.6 % (90-98.9); ARTERIAL BLOOD GAS BASE EXCESS 4.3 meq/l (-2-2); ARTERIAL BLOOD GAS HCO3 26.6 meq/L (22-26); ARTERIAL BLOOD GAS PO2 80.8 mmHg (80-100); ARTERIAL BLOOD GAS pH 7.53 (7.35-7.45)
[2016-07-27 07:40] LABS: ALLENS TEST POSITIVE; ART PUNCT SITE LEFT RADIAL
[2016-07-27 07:41] LABS: LPM/O2% 50%; MECH. VENT. YES; PT. ON O2? YES; TYPE OF O2 VENT; VENT RATE 14; VT/PRESS 400
--- NOTE | 2016-07-27 09:14 | PN ---
Progress Note (short form) - Note Progress Note: Progress Note: Patient seen and examined in the ICU. Remains on NE 2mcg/min Temp 100.2 Fingers and feet are demarcated and cold Rapid shallow breathing on PS trial (fail) - plus mental status precludes extubation OBJECTIVE: Current Medications Acetaminophen (Ofirmev Injection -) 1,000 mg IVPB Q6H PRN PRN Reason: FEVER Last Admin: 07/25/16 21:13 Dose: 1,000 mg Albuterol/Ipratropium (Duoneb -) 1 amp NEB Q6H PRN PRN Reason: SHORTNESS OF BREATH Chlorhexidine Gluconate (Hibiclens For Decolonization -) 1 applic TP HS [facility] Last Admin: 07/26/16 22:00 Dose: 1 applic Chlorhexidine Gluconate (Peridex -) 15 ml MM BID [facility] Last Admin: 07/26/16 22:00 Dose: 15 ml Dextrose (D50w (Vial) -) 50 ml IVPUSH Q15M PRN PRN Reason: BLOOD SUGAR < 60 Last Admin: 07/24/16 06:30 Dose: 50 ml Fluconazole (Diflucan 200 Mg/Ns Premixed Ivpb -) 100 mls @ 100 mls/hr IVPB DAILY [facility] Last Admin: 07/26/16 09:31 Dose: 100 mls/hr Norepinephrine Bitartrate 8, (000 mcg/ Dextrose) 500 mls @ 18.75 mls/hr IV TITR AVERY; 5 MCG/MIN PRN Reason: Protocol Last Admin: 07/27/16 02:59 Dose: 7.5 mls/hr Vasopressin 50 units/ Sodium (Chloride) 100 mls @ 6 mls/hr IVPB ASDIR AVERY; 3 UNITS/HR PRN Reason: Protocol Last Admin: 07/26/16 14:16 Dose: Not Given Meropenem 1 gm/ Dextrose 100 mls @ 100 mls/hr IVPB Q8H-IV [facility] PRN Reason: Protocol Last Admin: 07/27/16 02:30 Dose: 100 mls/hr Clindamycin Phosphate (Cleocin 600 Mg Premix Ivpb -) 50 mls @ 100 mls/hr IVPB Q8H-IV [facility] Last Admin: 07/27/16 02:00 Dose: 100 mls/hr Insulin Aspart (Novolog Vial Sliding Scale -) 1 vial SQ ACHS [facility] PRN Reason: Protocol Last Admin: 07/27/16 06:02 Dose: 6 units Ranitidine HCl (Zantac Oral Solution -) 150 mg PO DAILY [facility] Last Admin: 07/26/16 09:28 Dose: 150 mg Silver Sulfadiazine (Silvadene -) 1 applic TP DAILY [facility] Last Admin: 07/26/16 09:25 Dose: 1 applic Vital Signs Temp 100.1 F H 07/27/16 06:00 Pulse 105 H 07/27/16 06:00 Resp 24 07/27/16 06:32 BP 100/49 07/27/16 06:00 Pulse Ox 100 07/26/16 22:00 Intake & Output 07/26/16 07/27/16 07/27/16 18:59 06:59 18:59 Intake Total 995.6 694.5 Output Total 1250 800 Balance -254.4 -105.5 Weight 70.624 kg Intake: IV 135.6 104.5 Pitressin - 50 Units In 0 Normal Saline - 97.5 ml @ 3 UNITS/HR 6 mls/hr IVPB ASDIR [facility] Rx#: [id number] Levophed drip 135.6 104.5 IVPB 400 150 Oral 0 Tube Feeding 340 330 Tube Irrigant 120 110 Output: Drainage 900 200 Right Abdomen 900 200 Urine 350 600 Bacon 350 600 Other: Voiding Method Indwelling Catheter Indwelling Catheter Bowel Movement Yes Weight Measurement Method Built in [facility] Gen: intubated, Heart: RRR Lung: scattered rhonchi Abd: soft, dressings intact, + BS Ext: demarcated lower extremities at the ankles, no pules, cold hands and demarcated fingers Neuro: opens eyes spontaneously, grimaces to noxious stimuli CBC, BMP 07/27/16 05:40 07/27/16 05:40 ASSESSMENT AND PLAN: Perforated Duodenal Ulcer Peritonitis s/p ex-lap/omental patch repair 07/16 Acute Respiratory Failure Septic Shock Acute Kidney Injury Lactic Acidosis Leukopenia/Thrombocytopenia likely from sepsis DM Encephalopathy -> likely toxic metabolic - ABX per ID - IVF to keep CVP 8-12 - Stop vasopressin - titrate pressors to maintain MAP >65 - monitor urine output, creatinine - taper FiO2 to keep Spo2 >90% - monitor ABG, alkalemic and tachypneic - DVT/GI prophylaxis - continue ICU monitoring - Thrombocytopenia better - plts now 100 - consider Heparin if there is evidence of clot - Can check arterial dopplers and consider vascular consult, but suspect she will lose her feet and most fingers - Do not think she will be extubatable any time soon, now with prolonged intubation - will need to discuss further GOC/trach with family Lyndon Weinstein Pulm/Critical Care [employer] [id number] CCT
[2016-07-27] MEDS ORDERED: PT OWN MED DRAWER 7, Y5N ONE ×3 (10:06→20:16)
[2016-07-27] MEDS: RANITIDINE HCL 150 MG/10 ML UNIT-DOSE CUP PO SCH (10:08)
[2016-07-27] MEDS: CHLORHEXIDINE GLUCONATE 0.12% 15ML CUP MM SCH ×2 (10:08→22:14)
[2016-07-27] MEDS: FLUCONAZOLE 200 MG/NS 100 ML IVPB SCH (10:09)
[2016-07-27] MEDS: SILVER SULFADIAZINE 1% TOP CREAM 50 GM JAR TP SCH (10:30)
[2016-07-27] MEDS ORDERED: HEMOQUE TEST 1 EACH EACH ONE (13:35)
--- NOTE | 2016-07-27 15:14 | PN ---
Progress Note, Physician Chief Complaint: The patient is in the ICU, hypotensive, on Pressor support, vent supported, unresponsive, Maintains fair amount of urine. Family visiting. 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 - Current Medication List Current Medications: Active Medications Acetaminophen (Ofirmev Injection -) 1,000 mg IVPB Q6H PRN PRN Reason: FEVER Last Admin: 07/25/16 21:13 Dose: 1,000 mg Albuterol/Ipratropium (Duoneb -) 1 amp NEB Q6H PRN PRN Reason: SHORTNESS OF BREATH Chlorhexidine Gluconate (Hibiclens For Decolonization -) 1 applic TP HS [facility] Last Admin: 07/26/16 22:00 Dose: 1 applic Chlorhexidine Gluconate (Peridex -) 15 ml MM BID [facility] Last Admin: 07/27/16 10:08 Dose: 15 ml Dextrose (D50w (Vial) -) 50 ml IVPUSH Q15M PRN PRN Reason: BLOOD SUGAR < 60 Last Admin: 07/24/16 06:30 Dose: 50 ml Fluconazole (Diflucan 200 Mg/Ns Premixed Ivpb -) 100 mls @ 100 mls/hr IVPB DAILY [facility] Last Admin: 07/27/16 10:09 Dose: 100 mls/hr Norepinephrine Bitartrate 8, (000 mcg/ Dextrose) 500 mls @ 18.75 mls/hr IV TITR AVERY; 5 MCG/MIN PRN Reason: Protocol Last Admin: 07/27/16 02:59 Dose: 7.5 mls/hr Meropenem 1 gm/ Dextrose 100 mls @ 100 mls/hr IVPB Q8H-IV [facility] PRN Reason: Protocol Last Admin: 07/27/16 14:04 Dose: 100 mls/hr Clindamycin Phosphate (Cleocin 600 Mg Premix Ivpb -) 50 mls @ 100 mls/hr IVPB Q8H-IV [facility] Last Admin: 07/27/16 10:11 Dose: 100 mls/hr Insulin Aspart (Novolog Vial Sliding Scale -) 1 vial SQ ACHS [facility] PRN Reason: Protocol Last Admin: 07/27/16 14:03 Dose: 4 units Ranitidine HCl (Zantac Oral Solution -) 150 mg PO DAILY [facility] Last Admin: 07/27/16 10:08 Dose: 150 mg Silver Sulfadiazine (Silvadene -) 1 applic TP DAILY [facility] Last Admin: 07/26/16 09:25 Dose: 1 applic - Objective Vital Signs: Vital Signs Temperature 100.3 F H 07/27/16 10:00 Pulse Rate 99 H 07/27/16 10:32 Respiratory Rate 30 H 07/27/16 14:28 Blood Pressure 102/51 07/27/16 10:00 O2 Sat by Pulse Oximetry (%) 99 07/27/16 10:32 Constitutional: Yes: Cachectic Cardiovascular: Yes: S1, S2 Respiratory: Yes: Mechanically Ventilated Gastrointestinal: Yes: Hypoactive Bowel Sounds Genitourinary: Yes: Bacon Present Extremities: Yes: Other (gangrene of toes and fingers) Labs: CBC, BMP 07/27/16 05:40 07/27/16 05:40 INR, PTT INR 1.27 (0.82-1.09) H 07/26/16 05:15 Fibrinogen 596.0 mg/dL (238-498) H 07/27/16 05:40 Problem List - Problems (1) Perforated abdominal viscus Code(s): [id number] - (2) ZAHIRA (acute kidney injury) Code(s): N17.9 - ACUTE KIDNEY FAILURE, UNSPECIFIED (3) Hypomagnesemia Code(s): E83.42 - HYPOMAGNESEMIA (4) Metabolic acidemia Code(s): E87.2 - ACIDOSIS (5) Metabolic acidosis Code(s): E87.2 - ACIDOSIS Assessment/Plan 65 y/o female with profound hypotension, hypoperfusion, lactic acidosis, progressive gangrene of the extremities, poorly responsive, Vent supported. Clinical status detriorating, with no meaningful intervention open at this point to improve her status. Will continue supportive care...pressors, antibiotics, electrolyte supplements, correction of acid-base abnormalities etc. Overall prognosis poor. Had lengthy discussion with the family Katty Singer MD
--- NOTE | 2016-07-27 15:16 | PN ---
Progress Note, Physician Chief Complaint: Remained at her base line no significant improvement in mental status, low grade fever. History of Present Illness: 65-year-old F H/O hypertension, hypercholesterolemia, T2DM, ETOH abuse, was presented to ED with abd pain and wt loss underwent exploratory laprotomy for perforated duodenal ulcer on 07/21/16 developed hypotention and sepsis intubated on pressers. p - Current Medication List Current Medications: Active Medications Acetaminophen (Ofirmev Injection -) 1,000 mg IVPB Q6H PRN PRN Reason: FEVER Last Admin: 07/25/16 21:13 Dose: 1,000 mg Albuterol/Ipratropium (Duoneb -) 1 amp NEB Q6H PRN PRN Reason: SHORTNESS OF BREATH Chlorhexidine Gluconate (Hibiclens For Decolonization -) 1 applic TP HS AVERY Last Admin: 07/26/16 22:00 Dose: 1 applic Chlorhexidine Gluconate (Peridex -) 15 ml MM BID AVERY Last Admin: 07/27/16 10:08 Dose: 15 ml Dextrose (D50w (Vial) -) 50 ml IVPUSH Q15M PRN PRN Reason: BLOOD SUGAR < 60 Last Admin: 07/24/16 06:30 Dose: 50 ml Fluconazole (Diflucan 200 Mg/Ns Premixed Ivpb -) 100 mls @ 100 mls/hr IVPB DAILY [facility]ERY Last Admin: 07/27/16 10:09 Dose: 100 mls/hr Norepinephrine Bitartrate 8, (000 mcg/ Dextrose) 500 mls @ 18.75 mls/hr IV TITR AVERY; 5 MCG/MIN PRN Reason: Protocol Last Admin: 07/27/16 02:59 Dose: 7.5 mls/hr Meropenem 1 gm/ Dextrose 100 mls @ 100 mls/hr IVPB Q8H-IV AVREY PRN Reason: Protocol Last Admin: 07/27/16 14:04 Dose: 100 mls/hr Clindamycin Phosphate (Cleocin 600 Mg Premix Ivpb -) 50 mls @ 100 mls/hr IVPB Q8H-IV AVERY Last Admin: 07/27/16 10:11 Dose: 100 mls/hr Insulin Aspart (Novolog Vial Sliding Scale -) 1 vial SQ ACHS AVERY PRN Reason: Protocol Last Admin: 07/27/16 14:03 Dose: 4 units Ranitidine HCl (Zantac Oral Solution -) 150 mg PO DAILY [facility] Last Admin: 07/27/16 10:08 Dose: 150 mg Silver Sulfadiazine (Silvadene -) 1 applic TP DAILY [facility] Last Admin: 07/26/16 09:25 Dose: 1 applic - Objective Vital Signs: Vital Signs Temperature 100.3 F H 07/27/16 10:00 Pulse Rate 99 H 07/27/16 10:32 Respiratory Rate 30 H 07/27/16 14:28 Blood Pressure 102/51 07/27/16 10:00 O2 Sat by Pulse Oximetry (%) 99 07/27/16 10:32 Labs: CBC, BMP 07/27/16 05:40 07/27/16 05:40 INR, PTT INR 1.27 (0.82-1.09) H 07/26/16 05:15 Fibrinogen 596.0 mg/dL (238-498) H 07/27/16 05:40 - ....Imaging X-ray: Report Reviewed (No significant changes) Problem List - Problems (1) Perforated abdominal viscus Assessment/Plan: Patient present with Rt UQ pain and with free air, Duodenal ulcer perforation s /p surgery. Code(s): RLS2173 - (2) Acute metabolic encephalopathy Assessment/Plan: Secondary to hypoperfusion at present non responsive Code(s): G93.41 - METABOLIC ENCEPHALOPATHY (3) Metabolic acidosis Assessment/Plan: Improved Code(s): E87.2 - ACIDOSIS
--- NOTE | 2016-07-27 16:41 | PN ---
Progress Note (short form) - Note Progress Note: PAtient seen and examined intubated opens eyes to name Last Vital Signs Temp Pulse Resp BP Pulse Ox 100.3 F H 97 H 30 H 108/54 99 07/27/16 10:00 07/27/16 14:00 07/27/16 14:28 07/27/16 14:00 07/27/16 10:32 opens eyes to name anasarca Cor: RSR, No murmurs, No gallops Lungs: Clear to P&A Abd: Soft, Normal bowel sounds, No organomegaly Ext:anasarca, cutaneous blebs distal fingers discoloration Abnormal Lab Results 07/26/16 07/27/16 07/27/16 18:10 05:40 05:40 WBC 11.9 H RBC 2.83 L Hgb 8.2 L Hct 24.8 L Plt Count 106 L D MPV 11.4 H Fibrinogen 596.0 H ABG pH ABG pCO2 at Pt Temp ABG HCO3 ABG O2 Content ABG Base Excess BUN 24 H Random Glucose 175 H Calcium 7.2 L Magnesium AST Total Protein Albumin 07/27/16 07/27/16 05:40 07:15 WBC RBC Hgb Hct Plt Count MPV Fibrinogen ABG pH 7.53 H ABG pCO2 at Pt Temp 31.7 L ABG HCO3 26.6 H ABG O2 Content 12.6 L ABG Base Excess 4.3 H BUN 24 H Random Glucose 252 H D Calcium 6.8 L* Magnesium 1.4 L D AST 86 H D Total Protein 4.4 L Albumin 1.0 L Home Medication List Medication Instructions Recorded Confirmed Type Glipizide Xl [Glucotrol Xl -] 5 mg PO DAILY 01/30/16 07/16/16 History Lisinopril [Zestril] 30 mg PO DAILY 01/30/16 07/16/16 History Metformin HCl [Metformin HCl ER] 1,000 mg PO BIDAC 01/30/16 07/16/16 History Simvastatin 10 mg PO HS 01/30/16 07/16/16 History Aspirin Coated [Ecotrin -] 81 mg PO DAILY 04/15/16 07/16/16 History Active Medications Generic Name Dose Route Start Last Admin Trade Name Freq PRN Reason Stop Dose Admin Acetaminophen 1,000 mg 07/19/16 15:43 07/25/16 21:13 Ofirmev Injection - IVPB 1,000 mg Q6H PRN Administration FEVER Albuterol/Ipratropium 1 amp 07/24/16 06:00 Duoneb - NEB Q6H PRN SHORTNESS OF BREATH Chlorhexidine Gluconate 1 applic 07/16/16 22:00 07/26/16 22:00 Hibiclens For Decolonization - TP 1 applic HS AVERY Administration Chlorhexidine Gluconate 15 ml 07/21/16 10:00 07/27/16 10:08 Peridex - MM 15 ml BID AVERY Administration Dextrose 50 ml 07/24/16 07:18 07/24/16 06:30 D50w (Vial) - IVPUSH 50 ml Q15M PRN Administration BLOOD SUGAR < 60 Fluconazole 100 mls @ 100 mls/hr 07/17/16 10:00 07/27/16 10:09 Diflucan 200 Mg/Ns Premixed Ivpb - IVPB 100 mls/hr DAILY [facility] Administration Norepinephrine Bitartrate 8, 500 mls @ 18.75 mls/hr 07/16/16 23:15 07/27/16 02: 59 000 mcg/ Dextrose IV 7.5 mls/hr TITR AVERY Administration Protocol 5 MCG/MIN Meropenem 1 gm/ Dextrose 100 mls @ 100 mls/hr 07/19/16 18:00 07/27/16 14:04 IVPB 100 mls/hr Q8H-IV AVERY Administration Protocol Clindamycin Phosphate 50 mls @ 100 mls/hr 07/22/16 14:15 07/27/16 10:11 Cleocin 600 Mg Premix Ivpb - IVPB 100 mls/hr Q8H-IV AVERY Administration Insulin Aspart 1 vial 07/17/16 16:30 07/27/16 14:03 Novolog Vial Sliding Scale - SQ 4 units ACHS AVERY Administration Protocol Ranitidine HCl 150 mg 07/26/16 10:00 07/27/16 10:08 Zantac Oral Solution - PO 150 mg DAILY [facility] Administration Silver Sulfadiazine 1 applic 07/24/16 10:00 07/26/16 09:25 Silvadene - TP 1 applic DAILY [facility] Administration A/P 65 y/o patient with Sepsis with SIRS, severe. Thrombocytopenia likely secondary to her systemic condition. May be component of drug-induced thrombocytopenia. Continue supportive transfusion support - prophylactically maintain platelet count > 20K (while febrile). Monitor coagulation parameters daily coagulopathy improved on vit.k platelets [id number] HIT neg. Duplex --rt. IJV catheter thrombosis and cephalic v. thrombosis will disucss with icu team platelets improved will consider intermediate dose lovenox, finger discoloration --due to pressors/sepsis mild coagulopathy--ongoing sepsis/vit. K deficiency from broad spectruma ntibiotics trialof vit. K
[2016-07-27] MEDS: ACETAMINOPHEN 1000 MG/100 ML VIAL (NON FORMULARY) IVPB PRN (16:55)
[2016-07-27 17:04] LABS: MCH 29.1 pg (25.7-33.7); MCHC 32.7 g/dl (32.0-36.0); MEAN CELL VOLUME 88.8 fl (80-96); MEAN PLT VOLUME 11.1 fl (7.5-11.1); PLATELET COUNT 134 K/MM3 (134-434); RDW 14.1 % (11.6-15.6); WHITE BLOOD COUNT 11.9 K/mm3 (4.0-10.0)
[2016-07-27 17:17] LABS: INR 1.34 (0.82-1.09); PROTHROMBIN TIME (PATIENT) 14.8 SEC (9.98-11.88)
[2016-07-27 17:20] LABS: ACTIVATED PTT 34.3 SECONDS (26.9-34.4)
[2016-07-27 18:10] LABS: PLATELET ESTIMATE ADEQUATE (NORMAL)
--- NOTE | 2016-07-27 18:44 | PN ---
Progress Note (short form) - Note Progress Note: Vascular Surgery Pt seen and examined. Called for right IJ clot and cepalic vein SVT. Pt septic, on levophed. Due to pressors, and peripheral vasoconstriction, pt has discoloration of finger tips and feet. Pt has dopplerable and palpable pulses. No need to anticoagulate for right IJ clot and cephalic vein svt. Medical management. Jeff Leon DO
[2016-07-27] MEDS ORDERED: PHYTONADIONE 10 MG/1 ML AMP SQ ONE (21:45)
[2016-07-27] MEDS ORDERED: PHYTONADIONE 10 MG/1 ML AMP ONE (22:06)
[2016-07-27] MEDS: CHLORHEXIDINE GLUCONATE 4% CLEANSER FOR DECOLONIZATION TP SCH (22:13)
[2016-07-27] MEDS: ENOXAPARIN NA (PORCINE) 40 MG/0.4 ML DISP.SYRIN SQ SCH (22:13)
[2016-07-28] MEDS: CLINDAMYCIN 600MG PREMIX IVPB 50 ML IVPB SCH ×3 (02:10→18:06)
[2016-07-28] MEDS: MEROPENEM 1 GM in DEXTROSE 5%-WATER - 100 ML IVPB SCH ×3 (02:10→18:17)
[2016-07-28] MEDS: ACETAMINOPHEN 1000 MG/100 ML VIAL (NON FORMULARY) IVPB PRN ×2 (02:11→11:19)
[2016-07-28] MEDS: INSULIN SLIDING SCALE (NOVOLOG) 1 VIAL SQ SCH ×4 (06:06→22:18)
[2016-07-28 06:25] LABS: MCH 29.2 pg (25.7-33.7); MEAN CELL VOLUME 88.4 fl (80-96); MEAN PLT VOLUME 11.2 fl (7.5-11.1); PLATELET COUNT 176 K/MM3 (134-434); RDW 13.8 % (11.6-15.6); WHITE BLOOD COUNT 12.9 K/mm3 (4.0-10.0)
[2016-07-28 06:50] LABS: CALCIUM 7.1 mg/dL (8.5-10.1)
[2016-07-28 06:56] LABS: ALK PHOS 104 U/L (45-117); ANION GAP 11 (8-16); BILIRUBIN,TOTAL 0.8 mg/dL (0.2-1.0); CO2 29 mmol/L (21-32); COCKROFT - GAULT 83.4785; CREATININE 0.7 mg/dL (0.55-1.02); GLUCOSE,RANDOM 266 mg/dL (74-106); MAGNESIUM 1.5 mg/dL (1.8-2.4); PHOSPHOROUS 3.2 mg/dL (2.5-4.9); SGOT/AST 101 U/L (15-37); SGPT/ALT 66 U/L (12-78); TOT PROT 4.5 g/dl (6.4-8.2)
[2016-07-28 07:26] LABS: ALLENS TEST POSITIVE; ART PUNCT SITE LEFT RADIAL; ARTERIAL BLD GAS O2 SATURATION 99.4 % (90-98.9); ARTERIAL BLOOD GAS BASE EXCESS 3.5 meq/l (-2-2); PT. ON O2? YES
[2016-07-28 07:27] LABS: ARTERIAL BLOOD GAS pH 7.53 (7.35-7.45); LPM/O2% 50%; MECH. VENT. ESPRIT; TYPE OF O2 MEC.VENT; VENT RATE 14; VT/PRESS 400
[2016-07-28] MEDS: CHLORHEXIDINE GLUCONATE 0.12% 15ML CUP MM SCH ×2 (10:00→22:18)
[2016-07-28] MEDS ORDERED: PT OWN MED DRAWER 7, Y5N ONE ×3 (10:42→22:16)
[2016-07-28] MEDS: FLUCONAZOLE 200 MG/NS 100 ML IVPB SCH (10:47)
--- NOTE | 2016-07-28 10:48 | PN ---
Progress Note, Physician Chief Complaint: The patient is in the ICU, hypotensive, on Pressor support, vent supported. More responsive to verbal stimuli than yesterday. maintains good urine output. 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 Family by the patient's bed. - Current Medication List Current Medications: Active Medications Acetaminophen (Ofirmev Injection -) 1,000 mg IVPB Q6H PRN PRN Reason: FEVER Last Admin: 07/28/16 02:11 Dose: 1,000 mg Albuterol/Ipratropium (Duoneb -) 1 amp NEB Q6H PRN PRN Reason: SHORTNESS OF BREATH Chlorhexidine Gluconate (Hibiclens For Decolonization -) 1 applic TP HS [facility] Last Admin: 07/27/16 22:13 Dose: 1 applic Chlorhexidine Gluconate (Peridex -) 15 ml MM BID [facility] Last Admin: 07/27/16 22:14 Dose: 15 ml Dextrose (D50w (Vial) -) 50 ml IVPUSH Q15M PRN PRN Reason: BLOOD SUGAR < 60 Last Admin: 07/24/16 06:30 Dose: 50 ml Enoxaparin Sodium (Lovenox -) 40 mg SQ BID [facility] Last Admin: 07/27/16 22:13 Dose: 40 mg Fluconazole (Diflucan 200 Mg/Ns Premixed Ivpb -) 100 mls @ 100 mls/hr IVPB DAILY [facility] Last Admin: 07/27/16 10:09 Dose: 100 mls/hr Norepinephrine Bitartrate 8, (000 mcg/ Dextrose) 500 mls @ 18.75 mls/hr IV TITR AVERY; 5 MCG/MIN PRN Reason: Protocol Last Titration: 07/28/16 03:00 Dose: 0 mcg/min Meropenem 1 gm/ Dextrose 100 mls @ 100 mls/hr IVPB Q8H-IV AVERY PRN Reason: Protocol Last Admin: 07/28/16 02:10 Dose: 100 mls/hr Clindamycin Phosphate (Cleocin 600 Mg Premix Ivpb -) 50 mls @ 100 mls/hr IVPB Q8H-IV AVERY Last Admin: 07/28/16 02:10 Dose: 100 mls/hr Insulin Aspart (Novolog Vial Sliding Scale -) 1 vial SQ ACHS AVERY PRN Reason: Protocol Last Admin: 07/28/16 06:06 Dose: 8 units Ranitidine HCl (Zantac Oral Solution -) 150 mg PO DAILY [facility] Last Admin: 07/27/16 10:08 Dose: 150 mg Silver Sulfadiazine (Silvadene -) 1 applic TP DAILY [facility] Last Admin: 07/27/16 10:30 Dose: 1 applic - Objective Vital Signs: Vital Signs Temperature 101.2 F H 07/28/16 06:00 Pulse Rate 99 H 07/28/16 10:06 Respiratory Rate 29 H 07/28/16 09:20 Blood Pressure 98/54 07/28/16 06:00 O2 Sat by Pulse Oximetry (%) 100 07/28/16 10:06 Constitutional: Yes: Calm Cardiovascular: Yes: S2 Respiratory: Yes: Mechanically Ventilated Gastrointestinal: Yes: Soft Neurological: Yes: Lethargy (The upper and lower extremities are gangrenous, possibly related to the high doses of pressors that the patient required.) Labs: CBC, BMP 07/28/16 05:35 07/28/16 05:35 INR, PTT INR 1.34 (0.82-1.09) H 07/27/16 16:40 Fibrinogen 581.0 mg/dL (238-498) H 07/28/16 05:35 Problem List - Problems (1) Perforated abdominal viscus Code(s): MDD2883 - (2) ZAHIRA (acute kidney injury) Code(s): N17.9 - ACUTE KIDNEY FAILURE, UNSPECIFIED (3) Hypomagnesemia Code(s): E83.42 - HYPOMAGNESEMIA (4) Metabolic acidemia Code(s): E87.2 - ACIDOSIS (5) Metabolic acidosis Code(s): E87.2 - ACIDOSIS Assessment/Plan 65 y/o female with profound hypotension, hypoperfusion, lactic acidosis, progressive gangrene of the extremities, Vent supported. The patient seems to respond minimally to verbal stimuli. Vascular note noted for the IJ thrombosis. Will continue supportive care...pressors, antibiotics, electrolyte supplements, correction of acid-base abnormalities etc. Overall prognosis poor. Katty Singer MD
[2016-07-28] MEDS: RANITIDINE HCL 150 MG/10 ML UNIT-DOSE CUP PO SCH (10:52)
--- NOTE | 2016-07-28 11:01 | PN ---
Progress Note (short form) - Note Progress Note: Neurology History of Present Illness The patient is a Active Medications Acetaminophen (Ofirmev Injection -) 1,000 mg IVPB Q6H PRN PRN Reason: FEVER Last Admin: 07/28/16 02:11 Dose: 1,000 mg Albuterol/Ipratropium (Duoneb -) 1 amp NEB Q6H PRN PRN Reason: SHORTNESS OF BREATH Chlorhexidine Gluconate (Hibiclens For Decolonization -) 1 applic TP HS [facility] Last Admin: 07/27/16 22:13 Dose: 1 applic Chlorhexidine Gluconate (Peridex -) 15 ml MM BID [facility] Last Admin: 07/27/16 22:14 Dose: 15 ml Dextrose (D50w (Vial) -) 50 ml IVPUSH Q15M PRN PRN Reason: BLOOD SUGAR < 60 Last Admin: 07/24/16 06:30 Dose: 50 ml Enoxaparin Sodium (Lovenox -) 40 mg SQ BID [facility] Last Admin: 07/27/16 22:13 Dose: 40 mg Fluconazole (Diflucan 200 Mg/Ns Premixed Ivpb -) 100 mls @ 100 mls/hr IVPB DAILY [facility] Last Admin: 07/28/16 10:47 Dose: 100 mls/hr Norepinephrine Bitartrate 8, (000 mcg/ Dextrose) 500 mls @ 18.75 mls/hr IV TITR AVERY; 5 MCG/MIN PRN Reason: Protocol Last Titration: 07/28/16 03:00 Dose: 0 mcg/min Meropenem 1 gm/ Dextrose 100 mls @ 100 mls/hr IVPB Q8H-IV AVERY PRN Reason: Protocol Last Admin: 07/28/16 10:45 Dose: 100 mls/hr Clindamycin Phosphate (Cleocin 600 Mg Premix Ivpb -) 50 mls @ 100 mls/hr IVPB Q8H-IV [facility]ERY Last Admin: 07/28/16 02:10 Dose: 100 mls/hr Insulin Aspart (Novolog Vial Sliding Scale -) 1 vial SQ ACHS [facility]ERY PRN Reason: Protocol Last Admin: 07/28/16 06:06 Dose: 8 units Ranitidine HCl (Zantac Oral Solution -) 150 mg PO DAILY [facility] Last Admin: 07/28/16 10:52 Dose: 150 mg Silver Sulfadiazine (Silvadene -) 1 applic TP DAILY [facility] Last Admin: 07/27/16 10:30 Dose: 1 applic *Physical Exam Vital Signs Period Temp Pulse Resp BP Sys/Major Pulse Ox Last 24 Hr 100.1 F-102.1 F 96-105 21-31 91-111/46-56 100-100 GENERAL: Awake Frail appearing. HEENT: Normocephalic, atraumatic. +Temporal wasting. PERRL, EOMI. No conjunctival pallor. +Sclera are icteric. +Dry mucous membranes. Oropharynx is clear. NECK: Supple. Full ROM. No JVD. CARDIOVASCULAR: Tachycardic rate but regular rate and rhythm. No murmurs, rubs, or gallops. PULMONARY: +Diffuse dyspneic breath sounds that are equal bilaterally. No wheezing, crackles or rhonchi. ABDOMINAL: Firm but soft abdomen. Diffuse tenderness to palpation without rebound or guarding. Non-distended. No organomegaly. Normoactive bowel sounds. MUSCULOSKELETAL: Normal range of motion at all joints. No bony deformities or tenderness. No CVA tenderness. EXTREMITIES: No cyanosis. No clubbing. No edema. No calf tenderness. SKIN: Tenting of the skin. Jaundiced. No rashes. NEUROLOGICAL: Intubated, ventilation, opens eyes and minimal movement of extremities but not cooperating with confrontation testing, withdraws to pain PSYCHIATRIC: Cooperative. Good eye contact. Appropriate mood and affect. CBCD WBC 12.9 K/mm3 (4.0-10.0) H 07/28/16 05:35 RBC 2.59 M/mm3 (3.60-5.2) L 07/28/16 05:35 Hgb 7.6 GM/dL (10.7-15.3) L 07/28/16 05:35 Hct 22.9 % (32.4-45.2) L 07/28/16 05:35 MCV 88.4 fl (80-96) 07/28/16 05:35 MCHC 33.0 g/dl (32.0-36.0) 07/28/16 05:35 RDW 13.8 % (11.6-15.6) 07/28/16 05:35 Plt Count 176 K/MM3 (134-434) D 07/28/16 05:35 MPV 11.2 fl (7.5-11.1) H 07/28/16 05:35 CMP Sodium 142 mmol/L (136-145) 07/28/16 05:35 Potassium 4.2 mmol/L (3.5-5.1) 07/28/16 05:35 Chloride 102 mmol/L (98-107) 07/28/16 05:35 Carbon Dioxide 29 mmol/L (21-32) 07/28/16 05:35 Anion Gap 11 (8-16) 07/28/16 05:35 BUN 28 mg/dL (7-18) H 07/28/16 05:35 Creatinine 0.7 mg/dL (0.55-1.02) 07/28/16 05:35 Creat Clearance w eGFR > 60 (>60) 07/28/16 05:35 Calcium 7.1 mg/dL (8.5-10.1) L 07/28/16 05:35 Total Bilirubin 0.8 mg/dL (0.2-1.0) D 07/28/16 05:35 AST 101 U/L (15-37) H 07/28/16 05:35 ALT 66 U/L (12-78) D 07/28/16 05:35 Alkaline Phosphatase 104 U/L (45-117) D 07/28/16 05:35 Total Protein 4.5 g/dl (6.4-8.2) L 07/28/16 05:35 Albumin 1.0 g/dl (3.4-5.0) L 07/28/16 05:35 EXAM: CT/HEAD CT WITHOUT CONTRAST Interpreted by Dr. Pietro Fried IMPRESSION: Comparison study MRI of the brain February 23, 2015. Findings. Serial axial images of the brain were obtained from foramen magnum to the cranial vertex without intravenous contrast, with coronal, sagittal reconstruction images. No evidence of hydrocephalus, acute subarachnoid hemorrhage, acute intra-axial or extra-axial fluid collection consistent with subdural or epidural hematoma. No mass effect, midline shift, acute ischemic changes, herniation or edema is present. Normal yancey matter white matter differentiation. The cortical sulci, sylvian fissures, perimesencephalic cisterns are not effaced. The CSF spaces are age-appropriate. Supratentorial periventricular chronic white matter microangiopathic ischemic changes are noted. Examination of the bone windows show no fracture. Normal intracranial physiological calcifications are observed. The cranial vascular calcifications are noted. The visualized paranasal sinuses and mastoid air cells are clear. EXAM: CT/ABDOMEN PELVIS CT W/O CONTR Interpreted by Dr. Jennifer Day IMPRESSION: CT scan of the abdomen pelvis following oral contrast administration only Coronal and sagittal reformatted images were obtained No prior is available for comparison. Abdominal pain. Elevated liver function tests CT scan of the abdomen pelvis following oral contrast administration only Coronal and sagittal reformatted images were obtained No prior is available for comparison. Included lower lung demonstrates a small right pleural effusion with consolidation/atelectasis in the dependent portion of the right lower lobe. There is also consolidation/atelectasis in the right middle lobe and in the left lung base. The heart is within normal limits in size. There is a trace of pericardial effusion The liver measures 18.5 cm in craniocaudal length. The spleen, pancreas, both adrenal glands and both kidneys appear unremarkable except for a small left renal cyst measuring 1 cm. There are is excretion of oral contrast within the pelvicalyceal system of both kidneys suggestive of recent intravenous contrast injection. The gallbladder is adequately distended with mild thickening of its wall and small amount of pericholecystic free fluid. There is free air in the upper abdomen floating anteriorly. There is also a small amount of free air in the pelvis floating, anteriorly. A small amount of hyperdense fluid is seen around the liver suggestive of perforated viscus with extravasation of oral contrast. The stomach is partially distended limiting evaluation of its wall with suggestion of thickening of the gastric antrum wall. Duodenum is not well-visualized. There is mild diffuse dilatation of the small bowel loops with thickening of the jejunal loops. There is significant thickening of the transverse and distal portion of the ascending colon consistent with colitis. A few scattered diverticula are present mainly in the descending and proximal sigmoid colon without evidence of acute diverticulitis. Moderate amount of fecal residue in the distal sigmoid colon rule out impaction. Perirectal fat is clear. A Bacon catheter is present within decompressed urinary bladder with minimal intraluminal air. There is a moderate amount of hyperdense fluid in the pelvis seen anterior and superior to the urinary bladder. L4-L5 moderate degenerative disc disease. Visualized osseous structures appear otherwise intact Medical Decision Making 65-year-old woman, with a significant past medical history of hypertension, hypercholesterolemia, diabetes mellitus and GI disorders who presented to the emergency department via walk-in for further evaluation of abdominal pain for the past 3-4 days with unintentional 20 lb weight loss over the past three months. She required surgical intervention as documented by Dr. Louise. Thereafter , complicated course and patient in ICU, off sedation for several days. CT head without acute changes. Patient not awakening though dose respond to noxious stimulation. On multiple pressors and concern was hypoperfusion and possible anoxic brain injury over the weekend. Since, has awoken and is keeps eye open, not tracking but producing spontaneous extremity movement. Overbreathing vent, but does have notable gangrene of fingers and toes. protecting airway and remains intubated and on vent. Toxic metabolic vs hypoperfusion and anoxic brain injury. Would benefit from MRI but not able to obtain due to vent. May require Trach if unable to be weaned. Has sepsis and getting ongoing treatment. Continue medical optimization and monitor mental status. Improved and may have been sedation that eventually wore off though took almost a week.
--- NOTE | 2016-07-28 11:10 | PN ---
Physical Exam: SUBJECTIVE: Patient seen and examined awake, spontaneously moves eyes, and right hand. off pressors and sedation family meeting with Dr. Dubon, updated on patient's status and possible need for trach placement. Family does not want her suffer, currently they want to keep her full code. decision yet to be made regarding trach. OBJECTIVE: Vital Signs Period Temp Pulse Resp BP Sys/Major Pulse Ox Last 24 Hr 100.1 F-102.1 F 97-105 21-31 91-111/46-56 100-100 HEAD: Bitemporal wasting EYES: JL, EOMI, sclera anicteric. (scleral edema improved) ENT: nares patent with NGT receiving trickle feeds, oropharynx with ET in place. dry mucous membranes. NECK: Trachea midline. LUNGS: diffuse rhonchi anterior bilaterally, no wheezes, no crackles, quiet at bases. HEART: Regular rate and rhythm, S1, S2 without murmur, rub or gallop. ABDOMEN: soft, no discharge from midline inscion, hyperpigmented skin at staple incision sites, sump pump in place with thick brownish fluid discharge. open ulcers throughout abdomen with scant serous discharge, covered in xeroform EXTREMITIES: doppler pulses in TP/radial b/l, acrocyanosis extending from fingernails to mid-forearm - poor circulation in fingertips. 1+ edema in b/l hands. cool extremities acrocyanosis in toes, marked in 5th digits b/l with skin mottling upto ankles. no edema. SKIN: multiple open ulcers and several fluid filled vesicles (abdomen, inner thighs, neck and arms), NEUROLOGICAL: non responsive to verbal stimuli. spontaneously moves right forearm, makes eye contact with questionable tracking. grimaces when feet and abdomen are touched. Laboratory Results - last 24 hr 07/25/16 07/26/16 07/26/16 21:50 17:53 17:54 WBC RBC Hgb Hct MCV MCHC RDW Plt Count MPV Neutrophils % Lymphocytes % Monocytes % Band Neutrophils Myelocytes Nucleated RBCs Differential Comment Platelet Estimate INR PTT (Actin FS) Fibrinogen Puncture Site ABG pH ABG pCO2 at Pt Temp ABG pO2 at Pt Temp ABG HCO3 ABG O2 Sat (Measured) ABG O2 Content ABG Base Excess Heber Test O2 Delivery Device Oxygen Flow Rate Vent Mode Vent Rate Mechanical Rate PEEP Pressure Support Vent Sodium Potassium Chloride Carbon Dioxide Anion Gap BUN Creatinine Creat Clearance w eGFR POC Glucometer 154.86182 > 400 > 400 Random Glucose Calcium Phosphorus Magnesium Total Bilirubin AST ALT Alkaline Phosphatase Total Protein Albumin 07/26/16 07/27/16 07/27/16 17:57 13:42 16:40 WBC 11.9 H RBC 2.85 L Hgb 8.3 L Hct 25.3 L MCV 88.8 MCHC 32.7 RDW 14.1 Plt Count 134 D MPV 11.1 Neutrophils % 76.0 Lymphocytes % 15.0 D Monocytes % 2.0 L Band Neutrophils 6.0 D Myelocytes 1 D Nucleated RBCs 1 H Differential Comment Manual diff done Platelet Estimate Adequate INR PTT (Actin FS) Fibrinogen Puncture Site ABG pH ABG pCO2 at Pt Temp ABG pO2 at Pt Temp ABG HCO3 ABG O2 Sat (Measured) ABG O2 Content ABG Base Excess Heber Test O2 Delivery Device Oxygen Flow Rate Vent Mode Vent Rate Mechanical Rate PEEP Pressure Support Vent Sodium Potassium Chloride Carbon Dioxide Anion Gap BUN Creatinine Creat Clearance w eGFR POC Glucometer > [phone] Random Glucose Calcium Phosphorus Magnesium Total Bilirubin AST ALT Alkaline Phosphatase Total Protein Albumin 07/27/16 07/27/16 07/27/16 16:40 18:24 21:59 WBC RBC Hgb Hct MCV MCHC RDW Plt Count MPV Neutrophils % Lymphocytes % Monocytes % Band Neutrophils Myelocytes Nucleated RBCs Differential Comment Platelet Estimate INR 1.34 H PTT (Actin FS) 34.3 Fibrinogen Puncture Site ABG pH ABG pCO2 at Pt Temp ABG pO2 at Pt Temp ABG HCO3 ABG O2 Sat (Measured) ABG O2 Content ABG Base Excess Heber Test O2 Delivery Device Oxygen Flow Rate Vent Mode Vent Rate Mechanical Rate PEEP Pressure Support Vent Sodium Potassium Chloride Carbon Dioxide Anion Gap BUN Creatinine Creat Clearance w eGFR POC Glucometer 282.19875 231.00274 Random Glucose Calcium Phosphorus Magnesium Total Bilirubin AST ALT Alkaline Phosphatase Total Protein Albumin 07/28/16 07/28/16 07/28/16 05:35 05:35 05:35 WBC 12.9 H RBC 2.59 L Hgb 7.6 L Hct 22.9 L MCV 88.4 MCHC 33.0 RDW 13.8 Plt Count 176 D MPV 11.2 H Neutrophils % Y Lymphocytes % Y Monocytes % Band Neutrophils Myelocytes Nucleated RBCs Differential Comment Platelet Estimate INR PTT (Actin FS) Fibrinogen 581.0 H Puncture Site ABG pH ABG pCO2 at Pt Temp ABG pO2 at Pt Temp ABG HCO3 ABG O2 Sat (Measured) ABG O2 Content ABG Base Excess Heber Test O2 Delivery Device Oxygen Flow Rate Vent Mode Vent Rate Mechanical Rate PEEP Pressure Support Vent Sodium 142 Potassium 4.2 Chloride 102 Carbon Dioxide 29 Anion Gap 11 BUN 28 H Creatinine 0.7 Creat Clearance w eGFR > 60 POC Glucometer Random Glucose 266 H Calcium 7.1 L Phosphorus 3.2 Magnesium 1.5 L Total Bilirubin 0.8 D AST 101 H ALT 66 D Alkaline Phosphatase 104 D Total Protein 4.5 L Albumin 1.0 L 07/28/16 07/28/16 05:37 07:20 WBC RBC Hgb Hct MCV MCHC RDW Plt Count MPV Neutrophils % Lymphocytes % Monocytes % Band Neutrophils Myelocytes Nucleated RBCs Differential Comment Platelet Estimate INR PTT (Actin FS) Fibrinogen Puncture Site Left radial ABG pH 7.53 H ABG pCO2 at Pt Temp 31.5 L ABG pO2 at Pt Temp 136.0 H D ABG HCO3 26.0 ABG O2 Sat (Measured) 99.4 H ABG O2 Content 10.6 L ABG Base Excess 3.5 H Heber Test Positive O2 Delivery Device Mec.vent Oxygen Flow Rate 50% Vent Mode A/c Vent Rate 14 Mechanical Rate Esprit PEEP 5.0 Pressure Support Vent 400 Sodium Potassium Chloride Carbon Dioxide Anion Gap BUN Creatinine Creat Clearance w eGFR POC Glucometer [phone] Random Glucose Calcium Phosphorus Magnesium Total Bilirubin AST ALT Alkaline Phosphatase Total Protein Albumin Active Medications Generic Name Dose Route Start Last Admin Trade Name Freq PRN Reason Stop Dose Admin Acetaminophen 1,000 mg 07/19/16 15:43 07/28/16 02:11 Ofirmev Injection - IVPB 1,000 mg Q6H PRN Administration FEVER Albuterol/Ipratropium 1 amp 07/24/16 06:00 Duoneb - NEB Q6H PRN SHORTNESS OF BREATH Chlorhexidine Gluconate 1 applic 07/16/16 22:00 07/27/16 22:13 Hibiclens For Decolonization - TP 1 applic HS AVERY Administration Chlorhexidine Gluconate 15 ml 07/21/16 10:00 07/27/16 22:14 Peridex - MM 15 ml BID AVERY Administration Dextrose 50 ml 07/24/16 07:18 07/24/16 06:30 D50w (Vial) - IVPUSH 50 ml Q15M PRN Administration BLOOD SUGAR < 60 Enoxaparin Sodium 40 mg 07/27/16 22:00 07/27/16 22:13 Lovenox - SQ 40 mg BID AVERY Administration Fluconazole 100 mls @ 100 mls/hr 07/17/16 10:00 07/28/16 10:47 Diflucan 200 Mg/Ns Premixed Ivpb - IVPB 100 mls/hr DAILY AVERY Administration Norepinephrine Bitartrate 8, 500 mls @ 18.75 mls/hr 07/16/16 23:15 07/28/16 03: 00 000 mcg/ Dextrose IV 0 mcg/min TITR AVERY Titration Protocol 5 MCG/MIN Meropenem 1 gm/ Dextrose 100 mls @ 100 mls/hr 07/19/16 18:00 07/28/16 10:45 IVPB 100 mls/hr Q8H-IV AVERY Administration Protocol Clindamycin Phosphate 50 mls @ 100 mls/hr 07/22/16 14:15 07/28/16 02:10 Cleocin 600 Mg Premix Ivpb - IVPB 100 mls/hr Q8H-IV AVERY Administration Insulin Aspart 1 vial 07/17/16 16:30 07/28/16 06:06 Novolog Vial Sliding Scale - SQ 8 units ACHS AVERY Administration Protocol Ranitidine HCl 150 mg 07/26/16 10:00 07/28/16 10:52 Zantac Oral Solution - PO 150 mg DAILY AVERY Administration Silver Sulfadiazine 1 applic 07/24/16 10:00 07/27/16 10:30 Silvadene - TP 1 applic DAILY AVERY Administration ASSESSMENT/PLAN: 65 yr old woman with HTN, dementia, NIDDM II admitted to ICU with septic shock secondary to perforated duodenal ulcer and peritonitis. - anasarca improved - pain control with fentanylk drip 50mcg/hr with morphine IVPush 2mg q2hr prn - prognosis is poor. further goc and interventions to be discussed with family. Cardivascular Hypotensive - urine output: 1200cc/24hr - maintain goal MAP>65, current MAP 61 - off pressors, maintain CVP goal 8-12 Pulmonary endotracheal tube placed 5/10 fio2 45%, sat 100%, RR 14 titrate to maintain spo2 >90% - pt RR 30 - will need to discuss trach placement with family Gastrointestinal; s/p repair perforated duodenal ulcer 07/16, - Meropenem IV 1gm q8hr - day 9 - Cleocin - 600gm q8h - day 6 - pepcid ivpb 20g daily - dc'd diflucan, completed 12 days - repeat cultures on 07/19 NGTD Renal - ZAHIRA - normal Cr, ZAHIRA resolved - Bacon placed in ED pre-op 07/16; net positive - corrected calcium 8.5 - consult: Dr. Tubbs; Dose all meds for Cr Cl less then 30 Infectious Disease, continous fevers on abx - consulted - meropenem + cleocin - tylenol IVPB 1gm q6hr + ice packs at axilla, neck, groin. avoid cooling blanket on extremities and on feet. Endocrine NIDDM II - D5 Iv push 1 amp when BGM <60 - BGM q6hrs w/ goal 140-180, NISS Hematologic - cephalic vein SVT and right IJ clot, likley iatrogenic from central line placement - txment with lovenox BID 40sq daily - thrombocytopenia likely due to sepsis, r/o DIC - daily fibrinogen levels/coags , if fibrinogen level <100 consider cryoppt - goal to maintain plts>20,000 - consult Dr. Church Neurologic AMS secondary to prolonged sedative effect or hypoperfusion causing anoxic brain injury Dr. Allen consulted for further neurological evaluation; rec MRI, however not transportable on vent, continue medical management. Dementia Diet: trickle tube feeds through NGT, 10cc/hr, Jevity DVT- SCD' given thrombocytopenia Visit type - Emergency Visit Emergency Visit: No - New Patient This patient is new to me today: No - Critical Care Critical Care patient: Yes Total Critical Care Time (in minutes): 38 Critical Care Statement: The care of this patient involved high complexity decision making to prevent further life threatening deterioration of the patient 's condition and/or to evalute & treat vital organ system(s) failure or risk of failure.
[2016-07-28] MEDS ORDERED: FENTANYL INJECTION 500 MCG in DEXTROSE 5%-WATER - 90 ML IJ SCH (11:30)
[2016-07-28 11:37] LABS: PLATELET ESTIMATE ADEQUATE (NORMAL); TARGET CELLS 2+
[2016-07-28] MEDS: morphine CARPU-JECT 2 MG/1 ML DISP.SYRIN IVPUSH PRN (12:23)
--- NOTE | 2016-07-28 14:07 | PN ---
Teaching Attending Note Name of Resident: Trevin Terrazas ATTENDING PHYSICIAN STATEMENT I saw and evaluated the patient. I reviewed the resident's note and discussed the case with the resident. I agree with the resident's findings and plan as documented. SUBJECTIVE: Patient seen and examined in the ICU. Arousable. Significant mottling and gangrene of all 4 extremities. AC Mode of vent. Off pressors, but BP is marginal. Noted significant pain upon exam. OBJECTIVE: Intake & Output 07/25/16 07/26/16 07/27/16 07/28/16 23:59 23:59 23:59 23:59 Intake Total 1991.4 1682.6 1605.5 536 Output Total 2900 3050 1200 250 Balance -908.6 -1367.4 405.5 286 Weight 167 lb 1.766 oz 157 lb 14.4 oz 155 lb 11.2 oz 149 lb 8 oz Last Vital Signs Temp Pulse Resp BP Pulse Ox 101.2 F H 99 H 29 H 98/54 100 07/28/16 06:00 07/28/16 10:06 07/28/16 14:01 07/28/16 06:00 07/28/16 10:06 Active Medications Acetaminophen (Ofirmev Injection -) 1,000 mg IVPB Q6H PRN PRN Reason: FEVER Last Admin: 07/28/16 11:19 Dose: 1,000 mg Albuterol/Ipratropium (Duoneb -) 1 amp NEB Q6H PRN PRN Reason: SHORTNESS OF BREATH Chlorhexidine Gluconate (Hibiclens For Decolonization -) 1 applic TP HS AVERY Last Admin: 07/27/16 22:13 Dose: 1 applic Chlorhexidine Gluconate (Peridex -) 15 ml MM BID AVERY Last Admin: 07/28/16 10:00 Dose: 15 ml Dextrose (D50w (Vial) -) 50 ml IVPUSH Q15M PRN PRN Reason: BLOOD SUGAR < 60 Last Admin: 07/24/16 06:30 Dose: 50 ml Enoxaparin Sodium (Lovenox -) 40 mg SQ BID AVERY Last Admin: 07/27/16 22:13 Dose: 40 mg Norepinephrine Bitartrate 8, (000 mcg/ Dextrose) 500 mls @ 18.75 mls/hr IV TITR AVERY; 5 MCG/MIN PRN Reason: Protocol Last Titration: 07/28/16 03:00 Dose: 0 mcg/min Meropenem 1 gm/ Dextrose 100 mls @ 100 mls/hr IVPB Q8H-IV AVERY PRN Reason: Protocol Last Admin: 07/28/16 10:45 Dose: 100 mls/hr Clindamycin Phosphate (Cleocin 600 Mg Premix Ivpb -) 50 mls @ 100 mls/hr IVPB Q8H-IV AVERY Last Admin: 07/28/16 11:19 Dose: 100 mls/hr Fentanyl 500 mcg/ Dextrose 100 mls @ 10 mls/hr IJ TITR AVERY PRN Reason: 50 MCG/HR Insulin Aspart (Novolog Vial Sliding Scale -) 1 vial SQ ACHS AVERY PRN Reason: Protocol Last Admin: 07/28/16 12:51 Dose: 8 units Morphine Sulfate (Morphine Injection -) 2 mg IVPUSH Q2H PRN PRN Reason: PAIN Last Admin: 07/28/16 12:23 Dose: 2 mg Ranitidine HCl (Zantac Oral Solution -) 150 mg PO DAILY [facility] Last Admin: 07/28/16 10:52 Dose: 150 mg Silver Sulfadiazine (Silvadene -) 1 applic TP DAILY [facility] Last Admin: 07/27/16 10:30 Dose: 1 applic Gen: intubated, arousable Heart: RRR Lung: scattered rhonchi Abd: soft, dressings intact Ext: cold, hypoperfused, dusky Laboratory Results - last 24 hr 07/25/16 07/26/16 07/26/16 21:50 17:53 17:54 WBC RBC Hgb Hct MCV MCHC RDW Plt Count MPV Neutrophils % Lymphocytes % Monocytes % Eosinophils % Basophils % Band Neutrophils Myelocytes Nucleated RBCs Differential Comment Platelet Estimate Target Cells INR PTT (Actin FS) Fibrinogen Puncture Site ABG pH ABG pCO2 at Pt Temp ABG pO2 at Pt Temp ABG HCO3 ABG O2 Sat (Measured) ABG O2 Content ABG Base Excess Heber Test O2 Delivery Device Oxygen Flow Rate Vent Mode Vent Rate Mechanical Rate PEEP Pressure Support Vent Sodium Potassium Chloride Carbon Dioxide Anion Gap BUN Creatinine Creat Clearance w eGFR POC Glucometer 154.59377 > 400 > 400 Random Glucose Calcium Phosphorus Magnesium Total Bilirubin AST ALT Alkaline Phosphatase Total Protein Albumin 05/20/17 05/21/17 05/21/17 17:57 13:42 16:40 WBC 11.9 H RBC 2.85 L Hgb 8.3 L Hct 25.3 L MCV 88.8 MCHC 32.7 RDW 14.1 Plt Count 134 D MPV 11.1 Neutrophils % 76.0 Lymphocytes % 15.0 D Monocytes % 2.0 L Eosinophils % Basophils % Band Neutrophils 6.0 D Myelocytes 1 D Nucleated RBCs 1 H Differential Comment Manual diff done Platelet Estimate Adequate Target Cells INR PTT (Actin FS) Fibrinogen Puncture Site ABG pH ABG pCO2 at Pt Temp ABG pO2 at Pt Temp ABG HCO3 ABG O2 Sat (Measured) ABG O2 Content ABG Base Excess Heber Test O2 Delivery Device Oxygen Flow Rate Vent Mode Vent Rate Mechanical Rate PEEP Pressure Support Vent Sodium Potassium Chloride Carbon Dioxide Anion Gap BUN Creatinine Creat Clearance w eGFR POC Glucometer > 400 231.92528 Random Glucose Calcium Phosphorus Magnesium Total Bilirubin AST ALT Alkaline Phosphatase Total Protein Albumin 07/27/16 07/27/16 07/27/16 16:40 18:24 21:59 WBC RBC Hgb Hct MCV MCHC RDW Plt Count MPV Neutrophils % Lymphocytes % Monocytes % Eosinophils % Basophils % Band Neutrophils Myelocytes Nucleated RBCs Differential Comment Platelet Estimate Target Cells INR 1.34 H PTT (Actin FS) 34.3 Fibrinogen Puncture Site ABG pH ABG pCO2 at Pt Temp ABG pO2 at Pt Temp ABG HCO3 ABG O2 Sat (Measured) ABG O2 Content ABG Base Excess Heber Test O2 Delivery Device Oxygen Flow Rate Vent Mode Vent Rate Mechanical Rate PEEP Pressure Support Vent Sodium Potassium Chloride Carbon Dioxide Anion Gap BUN Creatinine Creat Clearance w eGFR POC Glucometer 282.01916 231.36051 Random Glucose Calcium Phosphorus Magnesium Total Bilirubin AST ALT Alkaline Phosphatase Total Protein Albumin 07/28/16 07/28/16 07/28/16 05:35 05:35 05:35 WBC 12.9 H RBC 2.59 L Hgb 7.6 L Hct 22.9 L MCV 88.4 MCHC 33.0 RDW 13.8 Plt Count 176 D MPV 11.2 H Neutrophils % 79.0 Lymphocytes % 15.0 Monocytes % 3.0 L Eosinophils % 1.0 Basophils % 1.0 Band Neutrophils Myelocytes 1 Nucleated RBCs Differential Comment Manual diff done Platelet Estimate Adequate Target Cells 2+ INR PTT (Actin FS) Fibrinogen 581.0 H Puncture Site ABG pH ABG pCO2 at Pt Temp ABG pO2 at Pt Temp ABG HCO3 ABG O2 Sat (Measured) ABG O2 Content ABG Base Excess Heber Test O2 Delivery Device Oxygen Flow Rate Vent Mode Vent Rate Mechanical Rate PEEP Pressure Support Vent Sodium 142 Potassium 4.2 Chloride 102 Carbon Dioxide 29 Anion Gap 11 BUN 28 H Creatinine 0.7 Creat Clearance w eGFR > 60 POC Glucometer Random Glucose 266 H Calcium 7.1 L Phosphorus 3.2 Magnesium 1.5 L Total Bilirubin 0.8 D AST 101 H ALT 66 D Alkaline Phosphatase 104 D Total Protein 4.5 L Albumin 1.0 L 07/28/16 07/28/16 07/28/16 05:37 07:20 12:29 WBC RBC Hgb Hct MCV MCHC RDW Plt Count MPV Neutrophils % Lymphocytes % Monocytes % Eosinophils % Basophils % Band Neutrophils Myelocytes Nucleated RBCs Differential Comment Platelet Estimate Target Cells INR PTT (Actin FS) Fibrinogen Puncture Site Left radial ABG pH 7.53 H ABG pCO2 at Pt Temp 31.5 L ABG pO2 at Pt Temp 136.0 H D ABG HCO3 26.0 ABG O2 Sat (Measured) 99.4 H ABG O2 Content 10.6 L ABG Base Excess 3.5 H Heber Test Positive O2 Delivery Device Mec.vent Oxygen Flow Rate 50% Vent Mode A/c Vent Rate 14 Mechanical Rate Esprit PEEP 5.0 Pressure Support Vent 400 Sodium Potassium Chloride Carbon Dioxide Anion Gap BUN Creatinine Creat Clearance w eGFR POC Glucometer 307.52754 306.30874 Random Glucose Calcium Phosphorus Magnesium Total Bilirubin AST ALT Alkaline Phosphatase Total Protein Albumin ASSESSMENT AND PLAN: Perforated Duodenal Ulcer Peritonitis s/p ex-lap/omental patch repair 07/16 Acute Respiratory Failure Septic Shock Acute Kidney Injury Lactic Acidosis Leukopenia/Thrombocytopenia likely from sepsis DM Encephalopathy -> etiology to be determined - ABX per ID - IVF - Minimize pressors use if feasable - monitor urine output, creatinine - taper FiO2 to keep Spo2 >90% - transfuse platelets if <20K, cryo if fibrinogen <100 - DVT/GI prophylaxis - continue ICU monitoring - prognosis appears grave. Long discussion with the family, including the and her daughter. Her reports that she would not want to be on chronic life support. No decision was made. Family is still trying to decide on GOC. Dr Dubon critical care time spent in reviewing chart, evaluating patient and formulating plan 40 min
--- NOTE | 2016-07-28 15:15 | PN ---
Progress Note, Physician Chief Complaint: Remained at her base line , spiked fever, opens eye to verbal command - Current Medication List Current Medications: Active Medications Acetaminophen (Ofirmev Injection -) 1,000 mg IVPB Q6H PRN PRN Reason: FEVER Last Admin: 07/28/16 11:19 Dose: 1,000 mg Albuterol/Ipratropium (Duoneb -) 1 amp NEB Q6H PRN PRN Reason: SHORTNESS OF BREATH Chlorhexidine Gluconate (Hibiclens For Decolonization -) 1 applic TP HS AVERY Last Admin: 07/27/16 22:13 Dose: 1 applic Chlorhexidine Gluconate (Peridex -) 15 ml MM BID AVERY Last Admin: 07/28/16 10:00 Dose: 15 ml Dextrose (D50w (Vial) -) 50 ml IVPUSH Q15M PRN PRN Reason: BLOOD SUGAR < 60 Last Admin: 07/24/16 06:30 Dose: 50 ml Enoxaparin Sodium (Lovenox -) 40 mg SQ BID AVERY Last Admin: 07/27/16 22:13 Dose: 40 mg Norepinephrine Bitartrate 8, (000 mcg/ Dextrose) 500 mls @ 18.75 mls/hr IV TITR AVERY; 5 MCG/MIN PRN Reason: Protocol Last Titration: 07/28/16 03:00 Dose: 0 mcg/min Meropenem 1 gm/ Dextrose 100 mls @ 100 mls/hr IVPB Q8H-IV AVERY PRN Reason: Protocol Last Admin: 07/28/16 10:45 Dose: 100 mls/hr Clindamycin Phosphate (Cleocin 600 Mg Premix Ivpb -) 50 mls @ 100 mls/hr IVPB Q8H-IV AVERY Last Admin: 07/28/16 11:19 Dose: 100 mls/hr Fentanyl 500 mcg/ Dextrose 100 mls @ 10 mls/hr IJ TITR AVERY PRN Reason: 50 MCG/HR Insulin Aspart (Novolog Vial Sliding Scale -) 1 vial SQ ACHS AVERY PRN Reason: Protocol Last Admin: 07/28/16 12:51 Dose: 8 units Morphine Sulfate (Morphine Injection -) 2 mg IVPUSH Q2H PRN PRN Reason: PAIN Last Admin: 07/28/16 12:23 Dose: 2 mg Ranitidine HCl (Zantac Oral Solution -) 150 mg PO DAILY AVERY Last Admin: 07/28/16 10:52 Dose: 150 mg Silver Sulfadiazine (Silvadene -) 1 applic TP DAILY AVERY Last Admin: 07/27/16 10:30 Dose: 1 applic - Objective Vital Signs: Vital Signs Temperature 101.2 F H 07/28/16 06:00 Pulse Rate 99 H 07/28/16 10:06 Respiratory Rate 29 H 07/28/16 14:01 Blood Pressure 98/54 07/28/16 06:00 O2 Sat by Pulse Oximetry (%) 100 07/28/16 10:06 Patient remained intubated minimally responsive HEENT: ETT, NG tube at place, NECK: IJ at place no CHEST: Minimal basal crepts CVS: S1S2 R mild distention BS + EXT: all extremities peripheral gangrene and extensive edema. 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 Code(s): [id number] - (2) Acute metabolic encephalopathy Assessment/Plan: Secondary to hypoperfusion at present minimally responsive Code(s): G93.41 - METABOLIC ENCEPHALOPATHY (3) Metabolic acidosis Assessment/Plan: Improved Code(s): E87.2 - ACIDOSIS (4) ZAHIRA (acute kidney injury) Assessment/Plan: Resolved Code(s): N17.9 - ACUTE KIDNEY FAILURE, UNSPECIFIED (5) Thrombocytopenia Assessment/Plan: PLatelete count improved Code(s): D69.6 - THROMBOCYTOPENIA, UNSPECIFIED
[2016-07-28] MEDS: FENTANYL INJECTION 500 MCG in DEXTROSE 5%-WATER - 90 ML IJ SCH (15:16)
[2016-07-28] MEDS: ENOXAPARIN NA (PORCINE) 40 MG/0.4 ML DISP.SYRIN SQ SCH ×2 (15:33→22:17)
[2016-07-28] MEDS ORDERED: MAGNESIUM SULF 50% (8.12 MEQ/2 ML-1 GM VIAL) IVPB ONE (16:04)
--- NOTE | 2016-07-28 17:23 | PN ---
Progress Note, Physician History of Present Illness: continues to be critical still minimal response mentally intubated and on vent support - Current Medication List Current Medications: Active Medications Acetaminophen (Ofirmev Injection -) 1,000 mg IVPB Q6H PRN PRN Reason: FEVER Last Admin: 07/28/16 11:19 Dose: 1,000 mg Albuterol/Ipratropium (Duoneb -) 1 amp NEB Q6H PRN PRN Reason: SHORTNESS OF BREATH Chlorhexidine Gluconate (Hibiclens For Decolonization -) 1 applic TP HS AVERY Last Admin: 07/27/16 22:13 Dose: 1 applic Chlorhexidine Gluconate (Peridex -) 15 ml MM BID AVERY Last Admin: 07/28/16 10:00 Dose: 15 ml Dextrose (D50w (Vial) -) 50 ml IVPUSH Q15M PRN PRN Reason: BLOOD SUGAR < 60 Last Admin: 07/24/16 06:30 Dose: 50 ml Enoxaparin Sodium (Lovenox -) 40 mg SQ BID AVERY Last Admin: 07/28/16 15:33 Dose: 40 mg Norepinephrine Bitartrate 8, (000 mcg/ Dextrose) 500 mls @ 18.75 mls/hr IV TITR AVERY; 5 MCG/MIN PRN Reason: Protocol Last Titration: 07/28/16 03:00 Dose: 0 mcg/min Meropenem 1 gm/ Dextrose 100 mls @ 100 mls/hr IVPB Q8H-IV AVERY PRN Reason: Protocol Last Admin: 07/28/16 10:45 Dose: 100 mls/hr Clindamycin Phosphate (Cleocin 600 Mg Premix Ivpb -) 50 mls @ 100 mls/hr IVPB Q8H-IV AVERY Last Admin: 07/28/16 11:19 Dose: 100 mls/hr Fentanyl 500 mcg/ Dextrose 100 mls @ 10 mls/hr IJ TITR AVERY PRN Reason: 50 MCG/HR Last Admin: 07/28/16 15:16 Dose: 5 mls/hr Insulin Aspart (Novolog Vial Sliding Scale -) 1 vial SQ ACHS AVERY PRN Reason: Protocol Last Admin: 07/28/16 12:51 Dose: 8 units Morphine Sulfate (Morphine Injection -) 2 mg IVPUSH Q2H PRN PRN Reason: PAIN Last Admin: 07/28/16 12:23 Dose: 2 mg Ranitidine HCl (Zantac Oral Solution -) 150 mg PO DAILY [facility] Last Admin: 07/28/16 10:52 Dose: 150 mg Silver Sulfadiazine (Silvadene -) 1 applic TP DAILY [facility] Last Admin: 07/27/16 10:30 Dose: 1 applic - Objective Vital Signs: Vital Signs Temperature 100.3 F H 07/28/16 16:00 Pulse Rate 94 H 07/28/16 16:00 Respiratory Rate 21 07/28/16 16:00 Blood Pressure 87/45 07/28/16 16:00 O2 Sat by Pulse Oximetry (%) 100 07/28/16 10:06 Constitutional: Yes: Calm, Other Cardiovascular: Yes: Regular Rate and Rhythm Respiratory: Yes: Intubated, Mechanically Ventilated Gastrointestinal: Yes: Soft, Hypoactive Bowel Sounds, Other (draiange tube in place) Musculoskeletal: Yes: Other Extremities: Yes: Other Edema: LUE: 1+, RUE: 1+, LLE: 1+, RLE: 1+ Neurological: Yes: Other Psychiatric: Yes: Other Labs: CBC, BMP 07/28/16 05:35 07/28/16 05:35 INR, PTT INR 1.34 (0.82-1.09) H 07/27/16 16:40 Fibrinogen 581.0 mg/dL (238-498) H 07/28/16 05:35 - ....Imaging Chest X-ray: Report Reviewed, Image Reviewed Assessment/Plan Problem List - Problems (1) Abdominal pain Code(s): R10.9 - UNSPECIFIED ABDOMINAL PAIN Qualifiers: Qualified Code(s): R10.33 - Periumbilical pain (2) Perforated abdominal viscus Code(s): [id number] - (3) Perforated viscus Code(s): R19.8 - OTH SYMPTOMS AND SIGNS INVOLVING THE DGSTV SYS AND ABDOMEN (4) Hypertension Code(s): I10 - ESSENTIAL (PRIMARY) HYPERTENSION Qualifiers: Qualified Code(s): I10 - Essential (primary) hypertension lactic acidosis fevers heam note noted generalized swelling plan continue current mgmt nutrition patient mentally not responding continue supportive care continue to monitor surgery to continue following cc time 40 min
[2016-07-28] MEDS ORDERED: MAGNESIUM SULF 50% (8.12 MEQ/2 ML-1 GM VIAL) ONE (18:06)
--- NOTE | 2016-07-28 19:18 | PN ---
Progress Note, Physician - Current Medication List Current Medications: Active Medications Acetaminophen (Ofirmev Injection -) 1,000 mg IVPB Q6H PRN PRN Reason: FEVER Last Admin: 07/28/16 11:19 Dose: 1,000 mg Albuterol/Ipratropium (Duoneb -) 1 amp NEB Q6H PRN PRN Reason: SHORTNESS OF BREATH Chlorhexidine Gluconate (Hibiclens For Decolonization -) 1 applic TP HS [facility]ERY Last Admin: 07/27/16 22:13 Dose: 1 applic Chlorhexidine Gluconate (Peridex -) 15 ml MM BID [facility]ERY Last Admin: 07/28/16 10:00 Dose: 15 ml Dextrose (D50w (Vial) -) 50 ml IVPUSH Q15M PRN PRN Reason: BLOOD SUGAR < 60 Last Admin: 07/24/16 06:30 Dose: 50 ml Enoxaparin Sodium (Lovenox -) 40 mg SQ BID [facility] Last Admin: 07/28/16 15:33 Dose: 40 mg Norepinephrine Bitartrate 8, (000 mcg/ Dextrose) 500 mls @ 18.75 mls/hr IV TITR AVERY; 5 MCG/MIN PRN Reason: Protocol Last Titration: 07/28/16 03:00 Dose: 0 mcg/min Meropenem 1 gm/ Dextrose 100 mls @ 100 mls/hr IVPB Q8H-IV [facility]ERY PRN Reason: Protocol Last Admin: 07/28/16 18:17 Dose: 100 mls/hr Clindamycin Phosphate (Cleocin 600 Mg Premix Ivpb -) 50 mls @ 100 mls/hr IVPB Q8H-IV [facility] Last Admin: 07/28/16 18:06 Dose: 100 mls/hr Fentanyl 500 mcg/ Dextrose 100 mls @ 10 mls/hr IJ TITR [facility]ERY PRN Reason: 50 MCG/HR Last Admin: 07/28/16 15:16 Dose: 5 mls/hr Fluconazole (Diflucan 200 Mg/D5w Premixed Ivpb -) 100 mls @ 100 mls/hr IVPB DAILY [facility] Insulin Aspart (Novolog Vial Sliding Scale -) 1 vial SQ ACHS [facility]ERY PRN Reason: Protocol Last Admin: 07/28/16 18:08 Dose: 4 unit Morphine Sulfate (Morphine Injection -) 2 mg IVPUSH Q2H PRN PRN Reason: PAIN Last Admin: 07/28/16 12:23 Dose: 2 mg Ranitidine HCl (Zantac Oral Solution -) 150 mg PO DAILY [facility] Last Admin: 07/28/16 10:52 Dose: 150 mg Silver Sulfadiazine (Silvadene -) 1 applic TP DAILY [facility] Last Admin: 07/27/16 10:30 Dose: 1 applic - Objective Vital Signs: Vital Signs Temperature 100.4 F H 07/28/16 18:00 Pulse Rate 84 07/28/16 18:00 Respiratory Rate 25 H 07/28/16 18:00 Blood Pressure 90/45 07/28/16 18:00 O2 Sat by Pulse Oximetry (%) 100 07/28/16 10:06 Labs: CBC, BMP 07/28/16 05:35 07/28/16 05:35 INR, PTT INR 1.34 (0.82-1.09) H 07/27/16 16:40 Fibrinogen 581.0 mg/dL (238-498) H 07/28/16 05:35 Problem List - Problems (1) Abdominal pain Code(s): R10.9 - UNSPECIFIED ABDOMINAL PAIN Qualifiers: Abdominal location: periumbilical Qualified Code(s): R10.33 - Periumbilical pain (2) Perforated abdominal viscus Code(s): CSN0726 - (3) Perforated viscus Code(s): R19.8 - OTH SYMPTOMS AND SIGNS INVOLVING THE DGSTV SYS AND ABDOMEN (4) Hypertension Code(s): I10 - ESSENTIAL (PRIMARY) HYPERTENSION Qualifiers: Hypertension type: essential hypertension Qualified Code(s): I10 - Essential (primary) hypertension Assessment/Plan surgery: patient responds to pain. Abdomen is soft, not distended, she is tolerating tube feeding via Ng tube. She has multiple skin desquamation and blisters on abdominal wall. Drain is draining brownish fluid. Has black discoloration of tips of fingers and toes. with suggestion of dry gangrene, Platelets have improved. Will keep the drain in place, and obtain new cultures. Low grade temperature. She is having bowel movements.
[2016-07-28] MEDS: CHLORHEXIDINE GLUCONATE 4% CLEANSER FOR DECOLONIZATION TP SCH (22:17)
--- NOTE | 2016-07-28 22:41 | PN ---
Progress Note (short form) - Note Progress Note: PAtient seen and examined intubated opens eyes to name Last Vital Signs Temp Pulse Resp BP Pulse Ox 100.2 F H 84 23 84/45 100 07/28/16 22:00 07/28/16 22:00 07/28/16 22:00 07/28/16 22:00 07/28/16 10:06 opens eyes to name anasarca Cor: RSR, No murmurs, No gallops Lungs: Clear to P&A Abd: Soft, Normal bowel sounds, No organomegaly Ext:anasarca, cutaneous blebs distal fingers discoloration Abnormal Lab Results 07/28/16 07/28/16 07/28/16 05:35 05:35 05:35 WBC 12.9 H RBC 2.59 L Hgb 7.6 L Hct 22.9 L MPV 11.2 H Monocytes % 3.0 L Fibrinogen 581.0 H ABG pH ABG pCO2 at Pt Temp ABG pO2 at Pt Temp ABG O2 Sat (Measured) ABG O2 Content ABG Base Excess BUN 28 H Random Glucose 266 H Calcium 7.1 L Magnesium 1.5 L AST 101 H Total Protein 4.5 L Albumin 1.0 L 07/28/16 07:20 WBC RBC Hgb Hct MPV Monocytes % Fibrinogen ABG pH 7.53 H ABG pCO2 at Pt Temp 31.5 L ABG pO2 at Pt Temp 136.0 H D ABG O2 Sat (Measured) 99.4 H ABG O2 Content 10.6 L ABG Base Excess 3.5 H BUN Random Glucose Calcium Magnesium AST Total Protein Albumin Home Medication List Medication Instructions Recorded Confirmed Type Glipizide Xl [Glucotrol Xl -] 5 mg PO DAILY 01/30/16 07/16/16 History Lisinopril [Zestril] 30 mg PO DAILY 01/30/16 07/16/16 History Metformin HCl [Metformin HCl ER] 1,000 mg PO BIDAC 01/30/16 07/16/16 History Simvastatin 10 mg PO HS 01/30/16 07/16/16 History Aspirin Coated [Ecotrin -] 81 mg PO DAILY 04/15/16 07/16/16 History Active Medications Generic Name Dose Route Start Last Admin Trade Name Brennanq PRN Reason Stop Dose Admin Acetaminophen 1,000 mg 07/19/16 15:43 07/28/16 11:19 Ofirmev Injection - IVPB 1,000 mg Q6H PRN Administration FEVER Albuterol/Ipratropium 1 amp 07/24/16 06:00 Duoneb - NEB Q6H PRN SHORTNESS OF BREATH Chlorhexidine Gluconate 1 applic 07/16/16 22:00 07/28/16 22:17 Hibiclens For Decolonization - TP 1 applic HS [facility]ERY Administration Chlorhexidine Gluconate 15 ml 07/21/16 10:00 07/28/16 22:18 Peridex - MM 15 ml BID [facility] Administration Dextrose 50 ml 07/24/16 07:18 07/24/16 06:30 D50w (Vial) - IVPUSH 50 ml Q15M PRN Administration BLOOD SUGAR < 60 Enoxaparin Sodium 40 mg 07/27/16 22:00 07/28/16 22:17 Lovenox - SQ 40 mg BID [facility] Administration Norepinephrine Bitartrate 8, 500 mls @ 18.75 mls/hr 07/16/16 23:15 07/28/16 03: 00 000 mcg/ Dextrose IV 0 mcg/min TITR AVERY Titration Protocol 5 MCG/MIN Meropenem 1 gm/ Dextrose 100 mls @ 100 mls/hr 07/19/16 18:00 07/28/16 18:17 IVPB 100 mls/hr Q8H-IV [facility] Administration Protocol Clindamycin Phosphate 50 mls @ 100 mls/hr 07/22/16 14:15 07/28/16 18:06 Cleocin 600 Mg Premix Ivpb - IVPB 100 mls/hr Q8H-IV [facility] Administration Fentanyl 500 mcg/ Dextrose 100 mls @ 10 mls/hr 07/28/16 12:00 07/28/16 15:16 IJ 5 mls/hr TITR [facility] Administration 50 MCG/HR Fluconazole 100 mls @ 100 mls/hr 07/29/16 10:00 Diflucan 200 Mg/D5w Premixed Ivpb - IVPB DAILY [facility] Insulin Aspart 1 vial 07/17/16 16:30 07/28/16 22:18 Novolog Vial Sliding Scale - SQ 4 unit ACHS [facility] Administration Protocol Morphine Sulfate 2 mg 07/28/16 11:40 07/28/16 12:23 Morphine Injection - IVPUSH 2 mg Q2H PRN Administration PAIN Ranitidine HCl 150 mg 07/26/16 10:00 07/28/16 10:52 Zantac Oral Solution - PO 150 mg DAILY [facility] Administration Silver Sulfadiazine 1 applic 07/24/16 10:00 07/27/16 10:30 Silvadene - TP 1 applic DAILY [facility] Administration A/P 65 y/o patient with Sepsis with SIRS, severe. Thrombocytopenia likely secondary to her systemic condition. May be component of drug-induced thrombocytopenia. Continue supportive transfusion support - prophylactically maintain platelet count > 20K (while febrile). Monitor coagulation parameters daily coagulopathy improved on vit.k platelets nl HIT neg. Duplex --rt. IJV catheter thrombosis and cephalic v. thrombosis will disucss with icu team platelets improved will consider intermediate dose lovenox, gor rt. ij thrombus and catheter in place finger discoloration --due to pressors/sepsis mild coagulopathy--ongoing sepsis/vit. K deficiency from broad spectruma ntibiotics trialof vit. K discusseio regarding goals of care are ongoing
[2016-07-29] MEDS: NOREPINEPHRINE BITARTRATE 8,000 MCG in DEXTROSE 5%-WATER - 492 ML IV SCH ×2 (00:50→08:00)
[2016-07-29] MEDS: MEROPENEM 1 GM in DEXTROSE 5%-WATER - 100 ML IVPB SCH ×3 (02:23→19:00)
[2016-07-29] MEDS: CLINDAMYCIN 600MG PREMIX IVPB 50 ML IVPB SCH ×3 (02:23→19:00)
[2016-07-29 06:00] LABS: MCH 29.1 pg (25.7-33.7); MCHC 32.7 g/dl (32.0-36.0); MEAN CELL VOLUME 88.9 fl (80-96); MEAN PLT VOLUME 10.5 fl (7.5-11.1); PLATELET COUNT 210 K/MM3 (134-434); RDW 14.2 % (11.6-15.6); WHITE BLOOD COUNT 14.1 K/mm3 (4.0-10.0)
[2016-07-29 06:21] LABS: INR 1.36 (0.82-1.09)
[2016-07-29 06:23] LABS: ACTIVATED PTT 38.5 SECONDS (26.9-34.4)
[2016-07-29] MEDS: FENTANYL INJECTION 500 MCG in DEXTROSE 5%-WATER - 90 ML IJ SCH ×2 (06:31→22:33)
[2016-07-29] MEDS: INSULIN SLIDING SCALE (NOVOLOG) 1 VIAL SQ SCH ×4 (06:32→22:04)
[2016-07-29 06:48] LABS: ALK PHOS 95 U/L (45-117); ANION GAP 9 (8-16); BILIRUBIN,TOTAL 0.5 mg/dL (0.2-1.0); CALCIUM 7.5 mg/dL (8.5-10.1); CO2 29 mmol/L (21-32); CREATININE 0.7 mg/dL (0.55-1.02); GLUCOSE,RANDOM 249 mg/dL (74-106); MAGNESIUM 1.8 mg/dL (1.8-2.4); PHOSPHOROUS 3.7 mg/dL (2.5-4.9); SGOT/AST 69 U/L (15-37); SGPT/ALT 60 U/L (12-78); TOT PROT 4.4 g/dl (6.4-8.2)
[2016-07-29 07:36] LABS: ALLENS TEST POSITIVE; ART PUNCT SITE LEFT RADIAL; ARTERIAL BLD GAS O2 SATURATION 98.4 % (90-98.9); ARTERIAL BLOOD GAS HCO3 27.2 meq/L (22-26); PT. ON O2? YES
[2016-07-29 07:37] LABS: ARTERIAL BLOOD GAS pH 7.49 (7.35-7.45); LPM/O2% 45; MECH. VENT. YES; TYPE OF O2 VENT; VENT RATE 14; VT/PRESS 400
--- NOTE | 2016-07-29 07:53 | PN ---
Physical Exam: SUBJECTIVE: Patient seen and examined makes eyes contact, tracks across room. grimaces when abdomen or feet are touched. nods yes or no when asked about pain. nodded yes to pain in throat. looks up at ceiling when asked. OBJECTIVE: Vital Signs Period Temp Pulse Resp BP Sys/Major Pulse Ox Last 24 Hr 99.1 F-101.8 F 83-99 16-30 80-99/39-49 100-100 HEAD: Bitemporal wasting EYES: JL, EOMI, sclera anicteric. ENT: nares patent with NGT receiving trickle feeds, oropharynx with ET in place. moist mucous membranes. NECK: Trachea midline. LUNGS: diffuse rhonchi anterior bilaterally, no wheezes, no crackles, quiet at bases. HEART: Regular rate and rhythm, S1, S2 without murmur, rub or gallop. ABDOMEN: firm area around sump pump with pus discharge and surrounding erythema with discharge from insertion site of tube. no discharge from midline inscion, hyperpigmented skin at staple incision sites , open ulcers throughout abdomen with scant serous discharge, covered in xeroform EXTREMITIES: absent pulses in DP/radial b/l, acrocyanosis extending from fingernails to mid-forearm - poor circulation in fingertips, dry. cold extremities acrocyanosis in toes, marked in 5th digits b/l with skin mottling upto ankles. no edema. fluid filled vesicles at medial ankles b/l. SKIN: multiple open ulcers and several fluid filled vesicles (abdomen, inner thighs, neck and arms), NEUROLOGICAL: responsive to verbal stimuli. spontaneously moves right forearm, makes eye contact with tracking. grimaces when feet and abdomen are touched. follows commands to look upto ceiling, nods yes and no to questions. Laboratory Results - last 24 hr 07/25/16 07/26/16 07/26/16 21:50 17:53 17:54 WBC RBC Hgb Hct MCV MCHC RDW Plt Count MPV Neutrophils % Lymphocytes % Monocytes % Eosinophils % Basophils % Myelocytes Differential Comment Platelet Estimate Target Cells INR PTT (Actin FS) Fibrinogen Anticoagulation Therapy Puncture Site ABG pH ABG pCO2 at Pt Temp ABG pO2 at Pt Temp ABG HCO3 ABG O2 Sat (Measured) ABG O2 Content ABG Base Excess Heber Test O2 Delivery Device Oxygen Flow Rate Vent Mode Vent Rate Mechanical Rate PEEP Pressure Support Vent Sodium Potassium Chloride Carbon Dioxide Anion Gap BUN Creatinine Creat Clearance w eGFR POC Glucometer 154.19671 > 400 > 400 Random Glucose Calcium Phosphorus Magnesium Total Bilirubin AST ALT Alkaline Phosphatase Total Protein Albumin 07/26/16 07/28/16 07/28/16 17:57 05:35 05:35 WBC RBC Hgb Hct MCV MCHC RDW Plt Count MPV Neutrophils % 79.0 Lymphocytes % 15.0 Monocytes % 3.0 L Eosinophils % 1.0 Basophils % 1.0 Myelocytes 1 Differential Comment Manual diff done Platelet Estimate Adequate Target Cells 2+ INR PTT (Actin FS) Fibrinogen 581.0 H Anticoagulation Therapy Puncture Site ABG pH ABG pCO2 at Pt Temp ABG pO2 at Pt Temp ABG HCO3 ABG O2 Sat (Measured) ABG O2 Content ABG Base Excess Heber Test O2 Delivery Device Oxygen Flow Rate Vent Mode Vent Rate Mechanical Rate PEEP Pressure Support Vent Sodium Potassium Chloride Carbon Dioxide Anion Gap BUN Creatinine Creat Clearance w eGFR POC Glucometer > 400 Random Glucose Calcium Phosphorus Magnesium Total Bilirubin AST ALT Alkaline Phosphatase Total Protein Albumin 07/28/16 07/28/16 07/28/16 12:29 17:48 22:05 WBC RBC Hgb Hct MCV MCHC RDW Plt Count MPV Neutrophils % Lymphocytes % Monocytes % Eosinophils % Basophils % Myelocytes Differential Comment Platelet Estimate Target Cells INR PTT (Actin FS) Fibrinogen Anticoagulation Therapy Puncture Site ABG pH ABG pCO2 at Pt Temp ABG pO2 at Pt Temp ABG HCO3 ABG O2 Sat (Measured) ABG O2 Content ABG Base Excess Heber Test O2 Delivery Device Oxygen Flow Rate Vent Mode Vent Rate Mechanical Rate PEEP Pressure Support Vent Sodium Potassium Chloride Carbon Dioxide Anion Gap BUN Creatinine Creat Clearance w eGFR POC Glucometer 306.30878 234.19186 260.27088 Random Glucose Calcium Phosphorus Magnesium Total Bilirubin AST ALT Alkaline Phosphatase Total Protein Albumin 07/29/16 07/29/16 07/29/16 03:00 05:30 05:30 WBC 14.1 H RBC 2.61 L Hgb 7.6 L Hct 23.2 L MCV 88.9 MCHC 32.7 RDW 14.2 Plt Count 210 MPV 10.5 Neutrophils % Y Lymphocytes % Y Monocytes % Eosinophils % Basophils % Myelocytes Differential Comment Platelet Estimate Target Cells INR PTT (Actin FS) Fibrinogen Anticoagulation Therapy Y Puncture Site Left radial ABG pH 7.49 H ABG pCO2 at Pt Temp 35.8 ABG pO2 at Pt Temp 99.0 D ABG HCO3 27.2 H ABG O2 Sat (Measured) 98.4 ABG O2 Content 10.4 L ABG Base Excess 4.0 H Heber Test Positive O2 Delivery Device Vent Oxygen Flow Rate 45 Vent Mode A/c Vent Rate 14 Mechanical Rate Yes PEEP 5.0 Pressure Support Vent 400 Sodium 141 Potassium 4.2 Chloride 103 Carbon Dioxide 29 Anion Gap 9 BUN 35 H D Creatinine 0.7 Creat Clearance w eGFR > 60 POC Glucometer Random Glucose 249 H Calcium 7.5 L Phosphorus 3.7 Magnesium 1.8 Total Bilirubin 0.5 D AST 69 H D ALT 60 Alkaline Phosphatase 95 Total Protein 4.4 L Albumin 1.0 L 07/29/16 07/29/16 05:30 05:45 WBC RBC Hgb Hct MCV MCHC RDW Plt Count MPV Neutrophils % Lymphocytes % Monocytes % Eosinophils % Basophils % Myelocytes Differential Comment Platelet Estimate Target Cells INR 1.36 H PTT (Actin FS) 38.5 H Fibrinogen Anticoagulation Therapy Puncture Site ABG pH ABG pCO2 at Pt Temp ABG pO2 at Pt Temp ABG HCO3 ABG O2 Sat (Measured) ABG O2 Content ABG Base Excess Heber Test O2 Delivery Device Oxygen Flow Rate Vent Mode Vent Rate Mechanical Rate PEEP Pressure Support Vent Sodium Potassium Chloride Carbon Dioxide Anion Gap BUN Creatinine Creat Clearance w eGFR POC Glucometer 304.74233 Random Glucose Calcium Phosphorus Magnesium Total Bilirubin AST ALT Alkaline Phosphatase Total Protein Albumin Active Medications Generic Name Dose Route Start Last Admin Trade Name Freq PRN Reason Stop Dose Admin Acetaminophen 1,000 mg 07/19/16 15:43 07/28/16 11:19 Ofirmev Injection - IVPB 1,000 mg Q6H PRN Administration FEVER Albuterol/Ipratropium 1 amp 07/24/16 06:00 Duoneb - NEB Q6H PRN SHORTNESS OF BREATH Chlorhexidine Gluconate 1 applic 07/16/16 22:00 07/28/16 22:17 Hibiclens For Decolonization - TP 1 applic HS AVERY Administration Chlorhexidine Gluconate 15 ml 07/21/16 10:00 07/28/16 22:18 Peridex - MM 15 ml BID [facility] Administration Dextrose 50 ml 07/24/16 07:18 07/24/16 06:30 D50w (Vial) - IVPUSH 50 ml Q15M PRN Administration BLOOD SUGAR < 60 Enoxaparin Sodium 40 mg 07/27/16 22:00 07/28/16 22:17 Lovenox - SQ 40 mg BID [facility] Administration Norepinephrine Bitartrate 8, 500 mls @ 18.75 mls/hr 07/16/16 23:15 07/29/16 00: 50 000 mcg/ Dextrose IV Not Given TITR [facility] Protocol 5 MCG/MIN Meropenem 1 gm/ Dextrose 100 mls @ 100 mls/hr 07/19/16 18:00 07/29/16 02:23 IVPB 100 mls/hr Q8H-IV [facility] Administration Protocol Clindamycin Phosphate 50 mls @ 100 mls/hr 07/22/16 14:15 07/29/16 02:23 Cleocin 600 Mg Premix Ivpb - IVPB 100 mls/hr Q8H-IV [facility] Administration Fentanyl 500 mcg/ Dextrose 100 mls @ 10 mls/hr 07/28/16 12:00 07/29/16 06:31 IJ 5 mls/hr TITR [facility] Administration 50 MCG/HR Fluconazole 100 mls @ 100 mls/hr 07/29/16 10:00 Diflucan 200 Mg/D5w Premixed Ivpb - IVPB DAILY [facility] Insulin Aspart 1 vial 07/17/16 16:30 07/29/16 06:32 Novolog Vial Sliding Scale - SQ 8 unit ACHS [facility] Administration Protocol Morphine Sulfate 2 mg 07/28/16 11:40 07/28/16 12:23 Morphine Injection - IVPUSH 2 mg Q2H PRN Administration PAIN Ranitidine HCl 150 mg 07/26/16 10:00 07/28/16 10:52 Zantac Oral Solution - PO 150 mg DAILY [facility] Administration Silver Sulfadiazine 1 applic 07/24/16 10:00 07/27/16 10:30 Silvadene - TP 1 applic DAILY [facility] Administration CBC, BMP 07/29/16 05:30 07/29/16 05:30 ASSESSMENT/PLAN: 65 yr old woman with HTN, dementia, NIDDM II admitted to ICU with septic shock secondary to perforated duodenal ulcer and peritonitis. - required to be placed back on pressors - pain control with fentanyl drip 50mcg/hr with morphine IVPush 2mg q2hr prn - prognosis is poor. family updated on need for pressors and increase in white count, drainage from sump pump area, skin desquamation and acrocyanosis. would like to maintain patient's code status for full code. Cardivascular Hypotensive - requiring pressors, placed on dopamine (avoid levophed as it could lead to worsening of the acrocyanosis) - urine output: 750cc/24hr - bolus of NS - maintain goal MAP>65, current MAP 73, earlier MAP was trending down to 58 prior to pressors - maintain CVP goal 8-12 Pulmonary endotracheal tube placed 07/16 fio2 45%, sat 100%, RR 14 titrate to maintain spo2 >90% - pt RR 24 - will need to discuss trach placement with family by this and with Dr. Louise Gastrointestinal; s/p repair perforated duodenal ulcer 07/16, - Meropenem IV 1gm q8hr - day 10 - Cleocin - 600gm q8h - day 7 - Diflucan 200mg IVPB daily, discussed with Dr. Burgess, continue for now - - pepcid ivpb 20g daily - repeat cultures on 07/19 NGTD - ultrasound did not show a collection, small amount of free fluid in ruq. Renal - ZAHIRA - normal Cr, ZAHIRA resolved - Bacon placed in ED pre-op 07/16; net positive - consult: Dr. Tubbs; Dose all meds for Cr Cl less then 30 Infectious Disease, continous fevers on abx - gram stain and cx from insertion site of sump pump - consulted - meropenem + cleocin + diflucan - tylenol IVPB 1gm q6hr + ice packs at axilla, neck, groin. avoid cooling blanket on extremities and on feet. Endocrine NIDDM II - D5 Iv push 1 amp when BGM <60 - BGM q6hrs w/ goal 140-180, NISS Hematologic - cephalic vein SVT and right IJ clot, likley iatrogenic from central line placement - txment with lovenox BID 40sq daily - thrombocytopenia likely due to sepsis, r/o DIC - daily fibrinogen levels/coags , if fibrinogen level <100 consider cryoppt - goal to maintain plts>20,000 - trend H/H, transfuse of hgb <7.0 - consult Dr. Church Neurologic AMS secondary to prolonged sedative effect or hypoperfusion causing anoxic brain injury Dr. Allen consulted for further neurological evaluation; rec MRI, however not transportable on vent, continue medical management. Mental status with purposeful movements today. Dementia Diet: trickle tube feeds through NGT, 10cc/hr, Jevity DVT- lovenox BID Visit type - Emergency Visit Emergency Visit: No - New Patient This patient is new to me today: No - Critical Care Critical Care patient: Yes Total Critical Care Time (in minutes): 45 Critical Care Statement: The care of this patient involved high complexity decision making to prevent further life threatening deterioration of the patient 's condition and/or to evalute & treat vital organ system(s) failure or risk of failure.
[2016-07-29] MEDS ORDERED: NOREPINEPHRINE BITARTRATE 4 MG/4 ML ML IV ONE (08:34)
[2016-07-29 08:41] LABS: PLATELET ESTIMATE ADEQUATE (NORMAL)
[2016-07-29] MEDS: ACETAMINOPHEN 1000 MG/100 ML VIAL (NON FORMULARY) IVPB PRN ×2 (09:17→21:44)
[2016-07-29] MEDS: ENOXAPARIN NA (PORCINE) 40 MG/0.4 ML DISP.SYRIN SQ SCH ×2 (09:31→21:44)
[2016-07-29] MEDS: RANITIDINE HCL 150 MG/10 ML UNIT-DOSE CUP PO SCH (09:31)
[2016-07-29] MEDS ORDERED: PT OWN MED DRAWER 7, Y5N ONE ×2 (09:33→21:25)
[2016-07-29] MEDS ORDERED: FLUCONAZOLE 200 MG/D5W 100 ML IVPB SCH (10:00)
[2016-07-29] MEDS ORDERED: DOPAMINE 400 MG/D5W - 250 ML IVPB ONE (10:02)
--- NOTE | 2016-07-29 10:46 | PN ---
Progress Note, Physician History of Present Illness: patient mental status has improved more awake opens eyes some response purulent drainage noted around the tube - Current Medication List Current Medications: Active Medications Acetaminophen (Ofirmev Injection -) 1,000 mg IVPB Q6H PRN PRN Reason: FEVER Last Admin: 07/29/16 09:17 Dose: 1,000 mg Albuterol/Ipratropium (Duoneb -) 1 amp NEB Q6H PRN PRN Reason: SHORTNESS OF BREATH Chlorhexidine Gluconate (Hibiclens For Decolonization -) 1 applic TP HS [facility] Last Admin: 07/28/16 22:17 Dose: 1 applic Chlorhexidine Gluconate (Peridex -) 15 ml MM BID [facility] Last Admin: 07/28/16 22:18 Dose: 15 ml Dextrose (D50w (Vial) -) 50 ml IVPUSH Q15M PRN PRN Reason: BLOOD SUGAR < 60 Last Admin: 07/24/16 06:30 Dose: 50 ml Enoxaparin Sodium (Lovenox -) 40 mg SQ BID [facility] Last Admin: 07/29/16 09:31 Dose: 40 mg Norepinephrine Bitartrate 8, (000 mcg/ Dextrose) 500 mls @ 18.75 mls/hr IV TITR [facility]; 5 MCG/MIN PRN Reason: Protocol Last Admin: 07/29/16 08:00 Dose: 15 mls/hr Meropenem 1 gm/ Dextrose 100 mls @ 100 mls/hr IVPB Q8H-IV [facility] PRN Reason: Protocol Last Admin: 07/29/16 09:46 Dose: 100 mls/hr Clindamycin Phosphate (Cleocin 600 Mg Premix Ivpb -) 50 mls @ 100 mls/hr IVPB Q8H-IV [facility] Last Admin: 07/29/16 09:31 Dose: 100 mls/hr Fentanyl 500 mcg/ Dextrose 100 mls @ 10 mls/hr IJ TITR [facility] PRN Reason: 50 MCG/HR Last Admin: 07/29/16 06:31 Dose: 5 mls/hr Fluconazole (Diflucan 200 Mg/D5w Premixed Ivpb -) 100 mls @ 100 mls/hr IVPB DAILY [facility] Insulin Aspart (Novolog Vial Sliding Scale -) 1 vial SQ ACHS [facility] PRN Reason: Protocol Last Admin: 07/29/16 06:32 Dose: 8 unit Morphine Sulfate (Morphine Injection -) 2 mg IVPUSH Q2H PRN PRN Reason: PAIN Last Admin: 07/28/16 12:23 Dose: 2 mg Ranitidine HCl (Zantac Oral Solution -) 150 mg PO DAILY [facility] Last Admin: 07/29/16 09:31 Dose: 150 mg Silver Sulfadiazine (Silvadene -) 1 applic TP DAILY [facility] Last Admin: 07/27/16 10:30 Dose: 1 applic - Objective Vital Signs: Vital Signs Temperature 100.6 F H 07/29/16 10:00 Pulse Rate 100 H 07/29/16 10:00 Respiratory Rate 14 07/29/16 10:00 Blood Pressure 115/52 07/29/16 10:00 O2 Sat by Pulse Oximetry (%) 96 07/29/16 09:56 Constitutional: Yes: No Distress, Calm Cardiovascular: Yes: Regular Rate and Rhythm Respiratory: Yes: Intubated, Mechanically Ventilated Gastrointestinal: Yes: Soft, Other (draiange tube fluctuation felt in the area-- probably abscess) Musculoskeletal: Yes: Other Extremities: Yes: Other Edema: RUE: 1+, LLE: 1+, RLE: 1+ Wound/Incision: Yes: Other Neurological: Yes: Alert, Other Psychiatric: Yes: Alert, Other Labs: CBC, BMP 07/29/16 05:30 07/29/16 05:30 INR, PTT INR 1.36 (0.82-1.09) H 07/29/16 05:30 Fibrinogen 560.0 mg/dL (238-498) H 07/29/16 05:30 Assessment/Plan Problem List - Problems (1) Abdominal pain Code(s): R10.9 - UNSPECIFIED ABDOMINAL PAIN Qualifiers: Qualified Code(s): R10.33 - Periumbilical pain (2) Perforated abdominal viscus Code(s): KNA7289 - (3) Perforated viscus Code(s): R19.8 - OTH SYMPTOMS AND SIGNS INVOLVING THE DGSTV SYS AND ABDOMEN (4) Hypertension Code(s): I10 - ESSENTIAL (PRIMARY) HYPERTENSION Qualifiers: Qualified Code(s): I10 - Essential (primary) hypertension lactic acidosis fevers heam note noted generalized swelling plan continue current mgmt nutrition awake drainage tube needs to be removed continue supportive care continue to monitor surgery to continue following u/s of the area to see for the abscess needs to be drained if necessary cc time 40 min
[2016-07-29] MEDS: CHLORHEXIDINE GLUCONATE 0.12% 15ML CUP MM SCH ×2 (11:00→21:44)
[2016-07-29] MEDS: SILVER SULFADIAZINE 1% TOP CREAM 50 GM JAR TP SCH (12:00)
--- NOTE | 2016-07-29 12:05 | PN ---
Teaching Attending Note Name of Resident: Trevin Terrazas ATTENDING PHYSICIAN STATEMENT I saw and evaluated the patient. I reviewed the resident's note and discussed the case with the resident. I agree with the resident's findings and plan as documented. SUBJECTIVE: Patient seen and examined in the ICU. Arousable. Continued mottling and gangrene of all 4 extremities, appears slightly progressed from yesterday. I had a long discussion with the family yesterday, including the and daughter. I explained that use of pressors would worsen her hypoperfused extremities and they understood and accepted the use of pressors if her shock state continued. Unfortunately, this AM she was persistently hypotensive and now back on pressors. A call has been made to update the family. AC Mode of vent. Again we noted significant pain upon exam. OBJECTIVE: Intake & Output 07/26/16 07/27/16 07/28/16 07/29/16 23:59 23:59 23:59 23:59 Intake Total 1682.6 1605.5 1436 690 Output Total 3050 1200 750 200 Balance -1367.4 405.5 686 490 Weight 157 lb 14.4 oz 155 lb 11.2 oz 149 lb 8 oz 148 lb 14.4 oz Last Vital Signs Temp Pulse Resp BP Pulse Ox 100.6 F H 100 H 27 H 115/52 96 07/29/16 10:00 07/29/16 10:00 07/29/16 11:56 07/29/16 10:00 07/29/16 09:56 Active Medications Acetaminophen (Ofirmev Injection -) 1,000 mg IVPB Q6H PRN PRN Reason: FEVER Last Admin: 07/29/16 09:17 Dose: 1,000 mg Albuterol/Ipratropium (Duoneb -) 1 amp NEB Q6H PRN PRN Reason: SHORTNESS OF BREATH Chlorhexidine Gluconate (Hibiclens For Decolonization -) 1 applic TP HS [facility] Last Admin: 07/28/16 22:17 Dose: 1 applic Chlorhexidine Gluconate (Peridex -) 15 ml MM BID [facility] Last Admin: 07/28/16 22:18 Dose: 15 ml Dextrose (D50w (Vial) -) 50 ml IVPUSH Q15M PRN PRN Reason: BLOOD SUGAR < 60 Last Admin: 07/24/16 06:30 Dose: 50 ml Enoxaparin Sodium (Lovenox -) 40 mg SQ BID [facility] Last Admin: 07/29/16 09:31 Dose: 40 mg Norepinephrine Bitartrate 8, (000 mcg/ Dextrose) 500 mls @ 18.75 mls/hr IV TITR AVERY; 5 MCG/MIN PRN Reason: Protocol Last Admin: 07/29/16 08:00 Dose: 15 mls/hr Meropenem 1 gm/ Dextrose 100 mls @ 100 mls/hr IVPB Q8H-IV [facility] PRN Reason: Protocol Last Admin: 07/29/16 09:46 Dose: 100 mls/hr Clindamycin Phosphate (Cleocin 600 Mg Premix Ivpb -) 50 mls @ 100 mls/hr IVPB Q8H-IV [facility] Last Admin: 07/29/16 09:31 Dose: 100 mls/hr Fentanyl 500 mcg/ Dextrose 100 mls @ 10 mls/hr IJ TITR [facility]ERY PRN Reason: 50 MCG/HR Last Admin: 07/29/16 06:31 Dose: 5 mls/hr Fluconazole (Diflucan 200 Mg/D5w Premixed Ivpb -) 100 mls @ 100 mls/hr IVPB DAILY [facility] Insulin Aspart (Novolog Vial Sliding Scale -) 1 vial SQ ACHS [facility] PRN Reason: Protocol Last Admin: 07/29/16 06:32 Dose: 8 unit Morphine Sulfate (Morphine Injection -) 2 mg IVPUSH Q2H PRN PRN Reason: PAIN Last Admin: 07/28/16 12:23 Dose: 2 mg Ranitidine HCl (Zantac Oral Solution -) 150 mg PO DAILY [facility] Last Admin: 07/29/16 09:31 Dose: 150 mg Silver Sulfadiazine (Silvadene -) 1 applic TP DAILY [facility] Last Admin: 07/27/16 10:30 Dose: 1 applic Gen: intubated, arousable Heart: RRR Lung: scattered rhonchi Abd: soft, dressings intact Ext: cold, hypoperfused, dusky Laboratory Results - last 24 hr 07/28/16 07/28/16 07/28/16 12:29 17:48 22:05 WBC RBC Hgb Hct MCV MCHC RDW Plt Count MPV Neutrophils % Lymphocytes % Monocytes % Eosinophils % Basophils % Differential Comment Reactive Lymphocytes Platelet Estimate INR PTT (Actin FS) Fibrinogen Anticoagulation Therapy Puncture Site ABG pH ABG pCO2 at Pt Temp ABG pO2 at Pt Temp ABG HCO3 ABG O2 Sat (Measured) ABG O2 Content ABG Base Excess Heber Test O2 Delivery Device Oxygen Flow Rate Vent Mode Vent Rate Mechanical Rate PEEP Pressure Support Vent Sodium Potassium Chloride Carbon Dioxide Anion Gap BUN Creatinine Creat Clearance w eGFR POC Glucometer 306.03119 234.41587 [phone] Random Glucose Calcium Phosphorus Magnesium Total Bilirubin AST ALT Alkaline Phosphatase Total Protein Albumin 07/29/16 07/29/16 07/29/16 03:00 05:30 05:30 WBC 14.1 H RBC 2.61 L Hgb 7.6 L Hct 23.2 L MCV 88.9 MCHC 32.7 RDW 14.2 Plt Count 210 MPV 10.5 Neutrophils % 85.0 H Lymphocytes % 7.0 L D Monocytes % 5.0 Eosinophils % 1.0 Basophils % 1.0 Differential Comment Manual diff done Reactive Lymphocytes 1 Platelet Estimate Adequate INR PTT (Actin FS) Fibrinogen 560.0 H Anticoagulation Therapy Y Puncture Site Left radial ABG pH 7.49 H ABG pCO2 at Pt Temp 35.8 ABG pO2 at Pt Temp 99.0 D ABG HCO3 27.2 H ABG O2 Sat (Measured) 98.4 ABG O2 Content 10.4 L ABG Base Excess 4.0 H Heber Test Positive O2 Delivery Device Vent Oxygen Flow Rate 45 Vent Mode A/c Vent Rate 14 Mechanical Rate Yes PEEP 5.0 Pressure Support Vent 400 Sodium Potassium Chloride Carbon Dioxide Anion Gap BUN Creatinine Creat Clearance w eGFR POC Glucometer Random Glucose Calcium Phosphorus Magnesium Total Bilirubin AST ALT Alkaline Phosphatase Total Protein Albumin 07/29/16 07/29/16 07/29/16 05:30 05:30 05:45 WBC RBC Hgb Hct MCV MCHC RDW Plt Count MPV Neutrophils % Lymphocytes % Monocytes % Eosinophils % Basophils % Differential Comment Reactive Lymphocytes Platelet Estimate INR 1.36 H PTT (Actin FS) 38.5 H Fibrinogen Anticoagulation Therapy Puncture Site ABG pH ABG pCO2 at Pt Temp ABG pO2 at Pt Temp ABG HCO3 ABG O2 Sat (Measured) ABG O2 Content ABG Base Excess Heber Test O2 Delivery Device Oxygen Flow Rate Vent Mode Vent Rate Mechanical Rate PEEP Pressure Support Vent Sodium 141 Potassium 4.2 Chloride 103 Carbon Dioxide 29 Anion Gap 9 BUN 35 H D Creatinine 0.7 Creat Clearance w eGFR > 60 POC Glucometer [phone] Random Glucose 249 H Calcium 7.5 L Phosphorus 3.7 Magnesium 1.8 Total Bilirubin 0.5 D AST 69 H D ALT 60 Alkaline Phosphatase 95 Total Protein 4.4 L Albumin 1.0 L ASSESSMENT AND PLAN: Perforated Duodenal Ulcer Peritonitis s/p ex-lap/omental patch repair 07/16 Acute Respiratory Failure Septic Shock Acute Kidney Injury Lactic Acidosis Leukopenia/Thrombocytopenia likely from sepsis DM Encephalopathy -> etiology to be determined - ABX per ID - IVF - Minimize pressors use if feasible -> At this point her persistent hypotension warrants continued use of pressors. Will attempt to use dopamine. - monitor urine output, creatinine - taper FiO2 to keep Spo2 >90% - transfuse platelets if <20K, cryo if fibrinogen <100 - DVT/GI prophylaxis - continue ICU monitoring - prognosis appears grave. Family has indicated that Crystal would not want to be maintained on chronic ventilatory support, which I suspect will be her best case scenario. Dr Dubon critical care time spent in reviewing chart, evaluating patient and formulating plan 40 min
--- NOTE | 2016-07-29 12:11 | PN ---
Progress Note, Physician Chief Complaint: more alert , eye contact opens following verbal command still on pressors. verbal command History of Present Illness: 65-year-old F H/O hypertension, hypercholesterolemia, T2DM, ETOH abuse, was presented to ED with abd pain and wt loss underwent exploratory laprotomy for perforated duodenal ulcer on 07/21/16 developed hypotention and sepsis intubated on pressers. p - Current Medication List Current Medications: Active Medications Acetaminophen (Ofirmev Injection -) 1,000 mg IVPB Q6H PRN PRN Reason: FEVER Last Admin: 07/29/16 09:17 Dose: 1,000 mg Albuterol/Ipratropium (Duoneb -) 1 amp NEB Q6H PRN PRN Reason: SHORTNESS OF BREATH Chlorhexidine Gluconate (Hibiclens For Decolonization -) 1 applic TP HS [facility] Last Admin: 07/28/16 22:17 Dose: 1 applic Chlorhexidine Gluconate (Peridex -) 15 ml MM BID [facility] Last Admin: 07/28/16 22:18 Dose: 15 ml Dextrose (D50w (Vial) -) 50 ml IVPUSH Q15M PRN PRN Reason: BLOOD SUGAR < 60 Last Admin: 07/24/16 06:30 Dose: 50 ml Enoxaparin Sodium (Lovenox -) 40 mg SQ BID [facility] Last Admin: 07/29/16 09:31 Dose: 40 mg Norepinephrine Bitartrate 8, (000 mcg/ Dextrose) 500 mls @ 18.75 mls/hr IV TITR AVERY; 5 MCG/MIN PRN Reason: Protocol Last Admin: 07/29/16 08:00 Dose: 15 mls/hr Meropenem 1 gm/ Dextrose 100 mls @ 100 mls/hr IVPB Q8H-IV [facility] PRN Reason: Protocol Last Admin: 07/29/16 09:46 Dose: 100 mls/hr Clindamycin Phosphate (Cleocin 600 Mg Premix Ivpb -) 50 mls @ 100 mls/hr IVPB Q8H-IV [facility] Last Admin: 07/29/16 09:31 Dose: 100 mls/hr Fentanyl 500 mcg/ Dextrose 100 mls @ 10 mls/hr IJ TITR AVERY PRN Reason: 50 MCG/HR Last Admin: 07/29/16 06:31 Dose: 5 mls/hr Fluconazole (Diflucan 200 Mg/D5w Premixed Ivpb -) 100 mls @ 100 mls/hr IVPB DAILY [facility] Insulin Aspart (Novolog Vial Sliding Scale -) 1 vial SQ ACHS [facility]ERY PRN Reason: Protocol Last Admin: 07/29/16 06:32 Dose: 8 unit Morphine Sulfate (Morphine Injection -) 2 mg IVPUSH Q2H PRN PRN Reason: PAIN Last Admin: 07/28/16 12:23 Dose: 2 mg Ranitidine HCl (Zantac Oral Solution -) 150 mg PO DAILY [facility] Last Admin: 07/29/16 09:31 Dose: 150 mg Silver Sulfadiazine (Silvadene -) 1 applic TP DAILY [facility] Last Admin: 07/27/16 10:30 Dose: 1 applic - Objective Vital Signs: Vital Signs Temperature 100.6 F H 07/29/16 10:00 Pulse Rate 100 H 07/29/16 10:00 Respiratory Rate 27 H 07/29/16 11:56 Blood Pressure 115/52 07/29/16 10:00 O2 Sat by Pulse Oximetry (%) 96 07/29/16 09:56 Labs: CBC, BMP 07/29/16 05:30 07/29/16 05:30 INR, PTT INR 1.36 (0.82-1.09) H 07/29/16 05:30 Fibrinogen 560.0 mg/dL (238-498) H 07/29/16 05:30 Problem List - Problems (1) Perforated abdominal viscus Assessment/Plan: Patient present with Rt UQ pain and with free air, Duodenal ulcer perforation s /p surgery. Code(s): WPJ1795 - (2) Acute metabolic encephalopathy Assessment/Plan: Secondary to hypoperfusion and sepsis, gradually improving, Code(s): G93.41 - METABOLIC ENCEPHALOPATHY (3) Metabolic acidosis Assessment/Plan: Improved Code(s): E87.2 - ACIDOSIS (4) ZAHIRA (acute kidney injury) Assessment/Plan: Resolved Code(s): N17.9 - ACUTE KIDNEY FAILURE, UNSPECIFIED (5) Thrombocytopenia Assessment/Plan: PLatelete count improved Code(s): D69.6 - THROMBOCYTOPENIA, UNSPECIFIED (6) Ischemia of extremity Assessment/Plan: Ischemia off all extremities due to prolonged vasopressor use, patient needs pressure to maintain BP Code(s): I99.8 - OTHER DISORDER OF CIRCULATORY SYSTEM
[2016-07-29] MEDS: DOPAMINE 400 MG/D5W - 250 ML IVPB SCH ×2 (12:15→19:00)
--- NOTE | 2016-07-29 12:22 | PN ---
Progress Note (short form) - Note Progress Note: Neurology History of Present Illness The patient is a 65-year-old woman, with a significant past medical history of hypertension, hypercholesterolemia, diabetes mellitus and GI disorders who presented to the emergency department via walk-in for further evaluation of abdominal pain for the past 3-4 days with unintentional 20 lb weight loss over the past three months. She required surgical intervention as documented by Dr. Louise. Thereafter, complicated course and patient in ICU, off sedation for several days. CT head without acute changes. Patient was not awakening initially and remains on multiple pressors and concern was hypoperfusion and possible anoxic brain injury over the weekend. Since, has awoken and is keeps eye open, some tracking and producing spontaneous extremity movement as well following basic commands. Overbreathing vent, but does have notable gangrene of fingers and toes. protecting airway and remains intubated and on vent. Toxic metabolic vs hypoperfusion and anoxic brain injury. Would benefit from MRI but not able to obtain due to vent. May require Trach if unable to be weaned. Has sepsis and getting ongoing treatment. Continue medical optimization and monitor mental status. Active Medications Acetaminophen (Ofirmev Injection -) 1,000 mg IVPB Q6H PRN PRN Reason: FEVER Last Admin: 07/29/16 09:17 Dose: 1,000 mg Albuterol/Ipratropium (Duoneb -) 1 amp NEB Q6H PRN PRN Reason: SHORTNESS OF BREATH Chlorhexidine Gluconate (Hibiclens For Decolonization -) 1 applic TP HS [facility] Last Admin: 07/28/16 22:17 Dose: 1 applic Chlorhexidine Gluconate (Peridex -) 15 ml MM BID [facility] Last Admin: 07/28/16 22:18 Dose: 15 ml Dextrose (D50w (Vial) -) 50 ml IVPUSH Q15M PRN PRN Reason: BLOOD SUGAR < 60 Last Admin: 07/24/16 06:30 Dose: 50 ml Enoxaparin Sodium (Lovenox -) 40 mg SQ BID [facility] Last Admin: 07/29/16 09:31 Dose: 40 mg Norepinephrine Bitartrate 8, (000 mcg/ Dextrose) 500 mls @ 18.75 mls/hr IV TITR AVERY; 5 MCG/MIN PRN Reason: Protocol Last Admin: 07/29/16 08:00 Dose: 15 mls/hr Meropenem 1 gm/ Dextrose 100 mls @ 100 mls/hr IVPB Q8H-IV [facility] PRN Reason: Protocol Last Admin: 07/29/16 09:46 Dose: 100 mls/hr Clindamycin Phosphate (Cleocin 600 Mg Premix Ivpb -) 50 mls @ 100 mls/hr IVPB Q8H-IV [facility] Last Admin: 07/29/16 09:31 Dose: 100 mls/hr Fentanyl 500 mcg/ Dextrose 100 mls @ 10 mls/hr IJ TITR AVERY PRN Reason: 50 MCG/HR Last Admin: 07/29/16 06:31 Dose: 5 mls/hr Fluconazole (Diflucan 200 Mg/D5w Premixed Ivpb -) 100 mls @ 100 mls/hr IVPB DAILY [facility] Dopamine HCl/Dextrose (Dopamine 400 Mg/D5w -) 250 mls @ 12.664 mls/hr IVPB TITR [facility]ERY; 5 MCG/KG/MIN PRN Reason: Protocol Fluconazole (Diflucan 200 Mg/Ns Premixed Ivpb -) 100 mls @ 100 mls/hr IVPB DAILY [facility] Insulin Aspart (Novolog Vial Sliding Scale -) 1 vial SQ ACHS [facility] PRN Reason: Protocol Last Admin: 07/29/16 06:32 Dose: 8 unit Morphine Sulfate (Morphine Injection -) 2 mg IVPUSH Q2H PRN PRN Reason: PAIN Last Admin: 07/28/16 12:23 Dose: 2 mg Ranitidine HCl (Zantac Oral Solution -) 150 mg PO DAILY [facility] Last Admin: 07/29/16 09:31 Dose: 150 mg Silver Sulfadiazine (Silvadene -) 1 applic TP DAILY [facility] Last Admin: 07/27/16 10:30 Dose: 1 applic *Physical Exam Vital Signs Temperature 100.6 F H 07/29/16 10:00 Pulse Rate 100 H 07/29/16 10:00 Respiratory Rate 27 H 07/29/16 11:56 Blood Pressure 115/52 07/29/16 10:00 O2 Sat by Pulse Oximetry (%) 96 07/29/16 09:56 GENERAL: Awake Frail appearing. HEENT: Normocephalic, atraumatic. +Temporal wasting. PERRL, EOMI. No conjunctival pallor. +Sclera are icteric. +Dry mucous membranes. Oropharynx is clear. NECK: Supple. Full ROM. No JVD. CARDIOVASCULAR: Tachycardic rate but regular rate and rhythm. No murmurs, rubs, or gallops. PULMONARY: +Diffuse dyspneic breath sounds that are equal bilaterally. No wheezing, crackles or rhonchi. ABDOMINAL: Firm but soft abdomen. Diffuse tenderness to palpation without rebound or guarding. Non-distended. No organomegaly. Normoactive bowel sounds. MUSCULOSKELETAL: Normal range of motion at all joints. No bony deformities or tenderness. No CVA tenderness. EXTREMITIES: No cyanosis. No clubbing. No edema. No calf tenderness. SKIN: Tenting of the skin. Jaundiced. No rashes. NEUROLOGICAL: Intubated, ventilation, opens eyes and minimal movement of extremities but not cooperating with confrontation testing, withdraws to pain PSYCHIATRIC: Cooperative. Good eye contact. Appropriate mood and affect. CBCD WBC 14.1 K/mm3 (4.0-10.0) H 07/29/16 05:30 RBC 2.61 M/mm3 (3.60-5.2) L 07/29/16 05:30 Hgb 7.6 GM/dL (10.7-15.3) L 07/29/16 05:30 Hct 23.2 % (32.4-45.2) L 07/29/16 05:30 MCV 88.9 fl (80-96) 07/29/16 05:30 MCHC 32.7 g/dl (32.0-36.0) 07/29/16 05:30 RDW 14.2 % (11.6-15.6) 07/29/16 05:30 Plt Count 210 K/MM3 (134-434) 07/29/16 05:30 MPV 10.5 fl (7.5-11.1) 07/29/16 05:30 CMP Sodium 141 mmol/L (136-145) 07/29/16 05:30 Potassium 4.2 mmol/L (3.5-5.1) 07/29/16 05:30 Chloride 103 mmol/L (98-107) 07/29/16 05:30 Carbon Dioxide 29 mmol/L (21-32) 07/29/16 05:30 Anion Gap 9 (8-16) 07/29/16 05:30 BUN 35 mg/dL (7-18) H D 07/29/16 05:30 Creatinine 0.7 mg/dL (0.55-1.02) 07/29/16 05:30 Creat Clearance w eGFR > 60 (>60) 07/29/16 05:30 Calcium 7.5 mg/dL (8.5-10.1) L 07/29/16 05:30 Total Bilirubin 0.5 mg/dL (0.2-1.0) D 07/29/16 05:30 AST 69 U/L (15-37) H D 07/29/16 05:30 ALT 60 U/L (12-78) 07/29/16 05:30 Alkaline Phosphatase 95 U/L (45-117) 07/29/16 05:30 Total Protein 4.4 g/dl (6.4-8.2) L 07/29/16 05:30 Albumin 1.0 g/dl (3.4-5.0) L 07/29/16 05:30 EXAM: CT/HEAD CT WITHOUT CONTRAST Interpreted by Dr. Pietro Fried IMPRESSION: Comparison study MRI of the brain February 23, 2015. Findings. Serial axial images of the brain were obtained from foramen magnum to the cranial vertex without intravenous contrast, with coronal, sagittal reconstruction images. No evidence of hydrocephalus, acute subarachnoid hemorrhage, acute intra-axial or extra-axial fluid collection consistent with subdural or epidural hematoma. No mass effect, midline shift, acute ischemic changes, herniation or edema is present. Normal yancey matter white matter differentiation. The cortical sulci, sylvian fissures, perimesencephalic cisterns are not effaced. The CSF spaces are age-appropriate. Supratentorial periventricular chronic white matter microangiopathic ischemic changes are noted. Examination of the bone windows show no fracture. Normal intracranial physiological calcifications are observed. The cranial vascular calcifications are noted. The visualized paranasal sinuses and mastoid air cells are clear. EXAM: CT/ABDOMEN PELVIS CT W/O CONTR Interpreted by Dr. Jennifer Day IMPRESSION: CT scan of the abdomen pelvis following oral contrast administration only Coronal and sagittal reformatted images were obtained No prior is available for comparison. Abdominal pain. Elevated liver function tests CT scan of the abdomen pelvis following oral contrast administration only Coronal and sagittal reformatted images were obtained No prior is available for comparison. Included lower lung demonstrates a small right pleural effusion with consolidation/atelectasis in the dependent portion of the right lower lobe. There is also consolidation/atelectasis in the right middle lobe and in the left lung base. The heart is within normal limits in size. There is a trace of pericardial effusion The liver measures 18.5 cm in craniocaudal length. The spleen, pancreas, both adrenal glands and both kidneys appear unremarkable except for a small left renal cyst measuring 1 cm. There are is excretion of oral contrast within the pelvicalyceal system of both kidneys suggestive of recent intravenous contrast injection. The gallbladder is adequately distended with mild thickening of its wall and small amount of pericholecystic free fluid. There is free air in the upper abdomen floating anteriorly. There is also a small amount of free air in the pelvis floating, anteriorly. A small amount of hyperdense fluid is seen around the liver suggestive of perforated viscus with extravasation of oral contrast. The stomach is partially distended limiting evaluation of its wall with suggestion of thickening of the gastric antrum wall. Duodenum is not well-visualized. There is mild diffuse dilatation of the small bowel loops with thickening of the jejunal loops. There is significant thickening of the transverse and distal portion of the ascending colon consistent with colitis. A few scattered diverticula are present mainly in the descending and proximal sigmoid colon without evidence of acute diverticulitis. Moderate amount of fecal residue in the distal sigmoid colon rule out impaction. Perirectal fat is clear. A Bacon catheter is present within decompressed urinary bladder with minimal intraluminal air. There is a moderate amount of hyperdense fluid in the pelvis seen anterior and superior to the urinary bladder. L4-L5 moderate degenerative disc disease. Visualized osseous structures appear otherwise intact Medical Decision Making 65-year-old woman, with a significant past medical history of hypertension, hypercholesterolemia, diabetes mellitus and GI disorders who presented to the emergency department via walk-in for further evaluation of abdominal pain for the past 3-4 days with unintentional 20 lb weight loss over the past three months. She required surgical intervention as documented by Dr. Louise. Thereafter , complicated course and patient in ICU, off sedation for several days. CT head without acute changes. Patient was not awakening initially and remains on multiple pressors and concern was hypoperfusion and possible anoxic brain injury over the weekend. Since, has awoken and is keeps eye open, some tracking and producing spontaneous extremity movement as well following basic commands. Toxic metabolic vs hypoperfusion and anoxic brain injury. Would benefit from MRI but not able to obtain due to vent. Continue sepsis treatment May require Trach if unable to be weaned. Continue medical optimization and monitor mental status.
[2016-07-29] MEDS ORDERED: MIDAZOLAM HCL 5 MG/1 ML Single Dose Vial ONE (15:24)
--- NOTE | 2016-07-29 17:30 | PN ---
Progress Note (short form) - Note Progress Note: Patient seen and examined . Seen with ICU team On peripheral view upper and lower extremity ischemia with cyanosis and vasoconstriction Patient awake and responsive to simple questioning -states she is not in pain Last Vital Signs Temp Pulse Resp BP Pulse Ox 98.3 F 95 H 23 92/50 96 07/29/16 14:00 07/29/16 14:00 07/29/16 14:15 07/29/16 14:00 07/29/16 09:56 Ventilatory support Lungs - clear anteriorly Cor -RSR Abd - tania distal upper and lower extremities ischemia /cyanosis areas of skin blistering and slough CBC, BMP 07/29/16 05:30 07/29/16 05:30 INR, PTT INR 1.36 (0.82-1.09) H 07/29/16 05:30 Fibrinogen 560.0 mg/dL (238-498) H 07/29/16 05:30 Current Medications Generic Name Dose Route Start Last Admin Trade Name Freq PRN Reason Stop Dose Admin Acetaminophen 1,000 mg 07/19/16 15:43 07/29/16 09:17 Ofirmev Injection - IVPB 1,000 mg Q6H PRN Administration FEVER Albuterol/Ipratropium 1 amp 07/24/16 06:00 Duoneb - NEB Q6H PRN SHORTNESS OF BREATH Chlorhexidine Gluconate 1 applic 07/16/16 22:00 07/28/16 22:17 Hibiclens For Decolonization - TP 1 applic HS [facility] Administration Chlorhexidine Gluconate 15 ml 07/21/16 10:00 07/28/16 22:18 Peridex - MM 15 ml BID [facility] Administration Dextrose 50 ml 07/24/16 07:18 07/24/16 06:30 D50w (Vial) - IVPUSH 50 ml Q15M PRN Administration BLOOD SUGAR < 60 Enoxaparin Sodium 40 mg 07/27/16 22:00 07/29/16 09:31 Lovenox - SQ 40 mg BID [facility] Administration Norepinephrine Bitartrate 8, 500 mls @ 18.75 mls/hr 07/16/16 23:15 07/29/16 08: 00 000 mcg/ Dextrose IV 15 mls/hr TITR [facility] Administration Protocol 5 MCG/MIN Meropenem 1 gm/ Dextrose 100 mls @ 100 mls/hr 07/19/16 18:00 07/29/16 09:46 IVPB 100 mls/hr Q8H-IV [facility] Administration Protocol Clindamycin Phosphate 50 mls @ 100 mls/hr 07/22/16 14:15 07/29/16 09:31 Cleocin 600 Mg Premix Ivpb - IVPB 100 mls/hr Q8H-IV [facility] Administration Fentanyl 500 mcg/ Dextrose 100 mls @ 10 mls/hr 07/28/16 12:00 07/29/16 06:31 IJ 5 mls/hr TITR [facility] Administration 50 MCG/HR Dopamine HCl/Dextrose 250 mls @ 12.664 mls/hr 07/29/16 12:15 Dopamine 400 Mg/D5w - IVPB TITR [facility] Protocol 5 MCG/KG/MIN Fluconazole 100 mls @ 100 mls/hr 07/30/16 10:00 Diflucan 200 Mg/Ns Premixed Ivpb - IVPB DAILY [facility] Insulin Aspart 1 vial 07/17/16 16:30 07/29/16 06:32 Novolog Vial Sliding Scale - SQ 8 unit ACHS [facility] Administration Protocol Morphine Sulfate 2 mg 07/28/16 11:40 07/28/16 12:23 Morphine Injection - IVPUSH 2 mg Q2H PRN Administration PAIN Ranitidine HCl 150 mg 07/26/16 10:00 07/29/16 09:31 Zantac Oral Solution - PO 150 mg DAILY [facility] Administration Silver Sulfadiazine 1 applic 07/24/16 10:00 07/27/16 10:30 Silvadene - TP 1 applic DAILY [facility] Administration Impression: S/P duodenal perforation Peritonitis Ventilatory support Coagulopathy secondary to sepsis Thrombocytopenia improved Pressor support Distal LE and UE ischemia and cyanosis I.J. thrombosis Unfortunate 65 year old female s/p exploratory lap and repair of perforated duodenum. Resultant periotnitis. Complicated course of sepsis, hypoxic respiratory failure , pressor support, coagulopathy, thrombocytopenia now improved. and thrombosis. Likely ongoing sepsis from ischemia of extremities. Requiring pressors to maintain BP-- which is a Catch 22 for peripheral ischemia. Would maintain lovenox.
--- NOTE | 2016-07-29 17:33 | PN ---
Progress Note (short form) - Note Progress Note: Renal Follow up for ZAHIRA/Metabolic acidosis Pt seen and examined in the ICU on Vent, awake on Levophed Vital Signs Temperature 98.3 F 07/29/16 14:00 Pulse Rate 95 H 07/29/16 14:00 Respiratory Rate 23 07/29/16 14:15 Blood Pressure 92/50 07/29/16 14:00 O2 Sat by Pulse Oximetry (%) 96 07/29/16 09:56 Intake & Output 07/26/16 07/27/16 07/28/16 07/29/16 23:59 23:59 23:59 23:59 Intake Total 1682.6 1605.5 1436 690 Output Total 3050 1200 750 400 Balance -1367.4 405.5 686 290 Weight 157 lb 14.4 oz 155 lb 11.2 oz 149 lb 8 oz 148 lb 14.4 oz Gen: on Vent, NAD CVS: RRR, No M/R Lungs: Dec BS b/l lung andino Abd: Abd pain in palce, sutures appear clean. + distension Ext: Trace to 1+ edema CBC, BMP 07/29/16 05:30 07/29/16 05:30 Laboratory Tests 07/29/16 05:30 Calcium 7.5 L Phosphorus 3.7 Magnesium 1.8 Albumin 1.0 L Current Medications Acetaminophen (Ofirmev Injection -) 1,000 mg IVPB Q6H PRN PRN Reason: FEVER Last Admin: 07/29/16 09:17 Dose: 1,000 mg Albuterol/Ipratropium (Duoneb -) 1 amp NEB Q6H PRN PRN Reason: SHORTNESS OF BREATH Chlorhexidine Gluconate (Hibiclens For Decolonization -) 1 applic TP HS [facility] Last Admin: 07/28/16 22:17 Dose: 1 applic Chlorhexidine Gluconate (Peridex -) 15 ml MM BID [facility] Last Admin: 07/28/16 22:18 Dose: 15 ml Dextrose (D50w (Vial) -) 50 ml IVPUSH Q15M PRN PRN Reason: BLOOD SUGAR < 60 Last Admin: 07/24/16 06:30 Dose: 50 ml Enoxaparin Sodium (Lovenox -) 40 mg SQ BID [facility] Last Admin: 07/29/16 09:31 Dose: 40 mg Norepinephrine Bitartrate 8, (000 mcg/ Dextrose) 500 mls @ 18.75 mls/hr IV TITR AVERY; 5 MCG/MIN PRN Reason: Protocol Last Admin: 07/29/16 08:00 Dose: 15 mls/hr Meropenem 1 gm/ Dextrose 100 mls @ 100 mls/hr IVPB Q8H-IV [facility] PRN Reason: Protocol Last Admin: 07/29/16 09:46 Dose: 100 mls/hr Clindamycin Phosphate (Cleocin 600 Mg Premix Ivpb -) 50 mls @ 100 mls/hr IVPB Q8H-IV [facility] Last Admin: 07/29/16 09:31 Dose: 100 mls/hr Fentanyl 500 mcg/ Dextrose 100 mls @ 10 mls/hr IJ TITR [facility]ERY PRN Reason: 50 MCG/HR Last Admin: 07/29/16 06:31 Dose: 5 mls/hr Dopamine HCl/Dextrose (Dopamine 400 Mg/D5w -) 250 mls @ 12.664 mls/hr IVPB TITR [facility]ERY; 5 MCG/KG/MIN PRN Reason: Protocol Fluconazole (Diflucan 200 Mg/Ns Premixed Ivpb -) 100 mls @ 100 mls/hr IVPB DAILY [facility] Insulin Aspart (Novolog Vial Sliding Scale -) 1 vial SQ ACHS [facility] PRN Reason: Protocol Last Admin: 07/29/16 06:32 Dose: 8 unit Morphine Sulfate (Morphine Injection -) 2 mg IVPUSH Q2H PRN PRN Reason: PAIN Last Admin: 07/28/16 12:23 Dose: 2 mg Ranitidine HCl (Zantac Oral Solution -) 150 mg PO DAILY [facility] Last Admin: 07/29/16 09:31 Dose: 150 mg Silver Sulfadiazine (Silvadene -) 1 applic TP DAILY [facility] Last Admin: 07/27/16 10:30 Dose: 1 applic A/P 65 year old woman with PMhx of hypertension, hypercholesterolemia, diabetes mellitus who presented with Abd pain and found to have perforated Abd viscus s/ p emergent Sx now with Septic Shock, ZAHIRA and Metabolic Acidosis. #Acute Renal failure renal function now improved pt with good urine output trend BUN/cr #Sepsis/Perforated Abd Viscus continue supportive care as per ICU #Peripheral cyanosis titrate pressers as needed supportive care Thank you Cyril Tubbs DO
--- NOTE | 2016-07-29 18:25 | PN ---
Progress Note, Physician - Current Medication List Current Medications: Active Medications Acetaminophen (Ofirmev Injection -) 1,000 mg IVPB Q6H PRN PRN Reason: FEVER Last Admin: 07/29/16 09:17 Dose: 1,000 mg Albuterol/Ipratropium (Duoneb -) 1 amp NEB Q6H PRN PRN Reason: SHORTNESS OF BREATH Chlorhexidine Gluconate (Hibiclens For Decolonization -) 1 applic TP HS [facility] Last Admin: 07/28/16 22:17 Dose: 1 applic Chlorhexidine Gluconate (Peridex -) 15 ml MM BID [facility] Last Admin: 07/28/16 22:18 Dose: 15 ml Dextrose (D50w (Vial) -) 50 ml IVPUSH Q15M PRN PRN Reason: BLOOD SUGAR < 60 Last Admin: 07/24/16 06:30 Dose: 50 ml Enoxaparin Sodium (Lovenox -) 40 mg SQ BID [facility] Last Admin: 07/29/16 09:31 Dose: 40 mg Norepinephrine Bitartrate 8, (000 mcg/ Dextrose) 500 mls @ 18.75 mls/hr IV TITR AVERY; 5 MCG/MIN PRN Reason: Protocol Last Admin: 07/29/16 08:00 Dose: 15 mls/hr Meropenem 1 gm/ Dextrose 100 mls @ 100 mls/hr IVPB Q8H-IV [facility] PRN Reason: Protocol Last Admin: 07/29/16 09:46 Dose: 100 mls/hr Clindamycin Phosphate (Cleocin 600 Mg Premix Ivpb -) 50 mls @ 100 mls/hr IVPB Q8H-IV [facility] Last Admin: 07/29/16 09:31 Dose: 100 mls/hr Fentanyl 500 mcg/ Dextrose 100 mls @ 10 mls/hr IJ TITR AVERY PRN Reason: 50 MCG/HR Last Admin: 07/29/16 06:31 Dose: 5 mls/hr Dopamine HCl/Dextrose (Dopamine 400 Mg/D5w -) 250 mls @ 12.664 mls/hr IVPB TITR [facility]ERY; 5 MCG/KG/MIN PRN Reason: Protocol Fluconazole (Diflucan 200 Mg/Ns Premixed Ivpb -) 100 mls @ 100 mls/hr IVPB DAILY [facility] Insulin Aspart (Novolog Vial Sliding Scale -) 1 vial SQ ACHS [facility] PRN Reason: Protocol Last Admin: 07/29/16 06:32 Dose: 8 unit Morphine Sulfate (Morphine Injection -) 2 mg IVPUSH Q2H PRN PRN Reason: PAIN Last Admin: 07/28/16 12:23 Dose: 2 mg Ranitidine HCl (Zantac Oral Solution -) 150 mg PO DAILY [facility] Last Admin: 07/29/16 09:31 Dose: 150 mg Silver Sulfadiazine (Silvadene -) 1 applic TP DAILY [facility] Last Admin: 07/27/16 10:30 Dose: 1 applic - Objective Vital Signs: Vital Signs Temperature 98.3 F 07/29/16 14:00 Pulse Rate 95 H 07/29/16 14:00 Respiratory Rate 18 07/29/16 16:15 Blood Pressure 92/50 07/29/16 14:00 O2 Sat by Pulse Oximetry (%) 96 07/29/16 09:56 Labs: CBC, BMP 07/29/16 05:30 07/29/16 05:30 INR, PTT INR 1.36 (0.82-1.09) H 07/29/16 05:30 Fibrinogen 560.0 mg/dL (238-498) H 07/29/16 05:30 Problem List - Problems (1) Abdominal pain Code(s): R10.9 - UNSPECIFIED ABDOMINAL PAIN Qualifiers: Abdominal location: periumbilical Qualified Code(s): R10.33 - Periumbilical pain (2) Perforated abdominal viscus Code(s): WLA8381 - (3) Perforated viscus Code(s): R19.8 - OTH SYMPTOMS AND SIGNS INVOLVING THE DGSTV SYS AND ABDOMEN (4) Hypertension Code(s): I10 - ESSENTIAL (PRIMARY) HYPERTENSION Qualifiers: Hypertension type: essential hypertension Qualified Code(s): I10 - Essential (primary) hypertension Assessment/Plan Surgery: Patient has some swelling around the skin at the site of drainage tube exit , frome the skin. Drainage tube is not darining. Drainage tube is removed , with large amount of foul smelling fuid drainage. Colostomy bag placed over the drain site. Cultures from yesterday is pending. Gram stain : Gram negative and yeastlike organisms. Continue multisystem support. Patient is scheduled for tracheostomy for Thursday , 07/31/2016. I have discussed with the patients of the benefits of tracheostomy, and he has agreed. He has been informed of the grave condition she is in at this time. Continue support , nutrition , respiratory and vasopressors as needed. Hematocrit is 23 . transfuse packed RBC .
[2016-07-29] MEDS ORDERED: SODIUM CHLORIDE 500 ML IV STA (19:26)
[2016-07-29] MEDS: CHLORHEXIDINE GLUCONATE 4% CLEANSER FOR DECOLONIZATION TP SCH (21:45)
[2016-07-29] MEDS ORDERED: SODIUM CHLORIDE 0.9% 1000 ML INFUS.BAG IV ONE (22:20)
[2016-07-30] MEDS: MEROPENEM 1 GM in DEXTROSE 5%-WATER - 100 ML IVPB SCH ×3 (02:14→19:14)
[2016-07-30] MEDS: CLINDAMYCIN 600MG PREMIX IVPB 50 ML IVPB SCH ×4 (02:14→20:00)
[2016-07-30 05:47] LABS: BASOPHIL 0.6 % (0-2.0); MCH 28.9 pg (25.7-33.7); MCHC 32.5 g/dl (32.0-36.0); MEAN CELL VOLUME 89.1 fl (80-96); MEAN PLT VOLUME 10.1 fl (7.5-11.1); NEUTROPHILS 85.9 % (42.8-82.8); PLATELET COUNT 304 K/MM3 (134-434); RDW 14.2 % (11.6-15.6); WHITE BLOOD COUNT 16.9 K/mm3 (4.0-10.0)
[2016-07-30 06:12] LABS: ALK PHOS 92 U/L (45-117); ANION GAP 10 (8-16); BILIRUBIN,TOTAL 0.5 mg/dL (0.2-1.0); CALCIUM 7.8 mg/dL (8.5-10.1); CO2 29 mmol/L (21-32); CREATININE 0.5 mg/dL (0.55-1.02); GLUCOSE,RANDOM 159 mg/dL (74-106); MAGNESIUM 1.5 mg/dL (1.8-2.4); PHOSPHOROUS 3.8 mg/dL (2.5-4.9); SGOT/AST 47 U/L (15-37); SGPT/ALT 48 U/L (12-78); TOT PROT 4.3 g/dl (6.4-8.2)
[2016-07-30 06:25] LABS: ALBUMIN 0.9 g/dl (3.4-5.0); COCKROFT - GAULT 116.45
[2016-07-30] MEDS: INSULIN SLIDING SCALE (NOVOLOG) 1 VIAL SQ SCH ×4 (06:28→21:14)
[2016-07-30 07:40] LABS: ARTERIAL BLD GAS O2 SATURATION 95.7 % (90-98.9); ARTERIAL BLOOD GAS BASE EXCESS 3.6 meq/l (-2-2); ARTERIAL BLOOD GAS HCO3 27.5 meq/L (22-26); ARTERIAL BLOOD GAS PO2 82.1 mmHg (80-100); ARTERIAL BLOOD GAS pH 7.44 (7.35-7.45)
[2016-07-30 07:43] LABS: ALLENS TEST POSITIVE; ART PUNCT SITE LEFT RADIAL; LPM/O2% 50%; MECH. VENT. ESPRIT; PT. ON O2? YES; TYPE OF O2 MEC.VENT; VENT RATE 14; VT/PRESS 400
--- NOTE | 2016-07-30 08:57 | PN ---
Physical Exam: SUBJECTIVE: Patient seen and examined. sump pump removed by Dr. Louise yesterday afternoon, replaced with colostomy bag for drainage. patient is awake, alert, moves arms and feet on command. makes eye contact, and tracks, nods yes and no. required to be on dopamine. attempted wean by Dr. Miranda, pt desaturated to 68 on cpap mode, unable tolerate. placed back on ACV. consent obtained to insert central line today from . OBJECTIVE: Vital Signs Period Temp Pulse Resp BP Sys/Major Pulse Ox Last 24 Hr 98.3 F-101.5 F 93-108 14-29 76-123/44-79 96-96 HEAD: Bitemporal wasting EYES: JL, EOMI, sclera anicteric. ENT: nares patent with NGT receiving trickle feeds, oropharynx with ET in place. moist mucous membranes. NECK: Trachea midline. LUNGS: diffuse rhonchi anterior bilaterally, no wheezes, no crackles, quiet at bases. HEART: tachycardia, regular rhythm, S1, S2 without murmur, rub or gallop. ABDOMEN: subq collection decreased, with colectomy placed over sump pump tube insertion site. surrounding erythema no discharge from midline inscion, hyperpigmented skin at staple incision sites , open ulcers throughout abdomen with scant serous discharge, covered in xeroform EXTREMITIES: absent pulses in DP/radial b/l, acrocyanosis extending from fingernails to mid-forearm - poor circulation in fingertips, dry. cold extremities acrocyanosis in toes, marked in 5th digits b/l with skin mottling upto ankles. no edema. fluid filled vesicles at medial ankles b/l. SKIN: multiple open ulcers and several fluid filled vesicles (abdomen, inner thighs, neck and arms), erythema on anterior left anterior thigh. NEUROLOGICAL: responsive to verbal stimuli. spontaneously moves right forearm and left condon, some flexion at fingers and minimally moves feet with delay on command, makes eye contact with tracking. grimaces when feet and abdomen are touched. follows commands to look upto ceiling, nods yes and no to questions. Laboratory Results - last 24 hr 07/29/16 07/29/16 07/29/16 12:20 17:57 22:02 WBC RBC Hgb Hct MCV MCHC RDW Plt Count MPV Neutrophils % Lymphocytes % Monocytes % Eosinophils % Basophils % Fibrinogen Puncture Site ABG pH ABG pCO2 at Pt Temp ABG pO2 at Pt Temp ABG HCO3 ABG O2 Sat (Measured) ABG O2 Content ABG Base Excess Heber Test O2 Delivery Device Oxygen Flow Rate Vent Mode Vent Rate Mechanical Rate PEEP Pressure Support Vent Sodium Potassium Chloride Carbon Dioxide Anion Gap BUN Creatinine Creat Clearance w eGFR POC Glucometer 254.32238 218.57002 189.03924 Random Glucose Calcium Phosphorus Magnesium Total Bilirubin AST ALT Alkaline Phosphatase Total Protein Albumin Blood Type Antibody Screen Crossmatch 07/30/16 07/30/16 07/30/16 05:25 05:25 05:25 WBC 16.9 H RBC 2.41 L Hgb 7.0 L Hct 21.4 L MCV 89.1 MCHC 32.5 RDW 14.2 Plt Count 304 D MPV 10.1 Neutrophils % 85.9 H Lymphocytes % 7.4 L Monocytes % 5.1 Eosinophils % 1.0 Basophils % 0.6 Fibrinogen 641.0 H Puncture Site ABG pH ABG pCO2 at Pt Temp ABG pO2 at Pt Temp ABG HCO3 ABG O2 Sat (Measured) ABG O2 Content ABG Base Excess Heber Test O2 Delivery Device Oxygen Flow Rate Vent Mode Vent Rate Mechanical Rate PEEP Pressure Support Vent Sodium 143 Potassium 4.2 Chloride 104 Carbon Dioxide 29 Anion Gap 10 BUN 27 H D Creatinine 0.5 L D Creat Clearance w eGFR > 60 POC Glucometer Random Glucose 159 H D Calcium 7.8 L Phosphorus 3.8 Magnesium 1.5 L Total Bilirubin 0.5 AST 47 H D ALT 48 Alkaline Phosphatase 92 Total Protein 4.3 L Albumin 0.9 L Blood Type Antibody Screen Crossmatch 07/30/16 07/30/16 07/30/16 05:32 07:35 07:35 WBC RBC Hgb Hct MCV MCHC RDW Plt Count MPV Neutrophils % Lymphocytes % Monocytes % Eosinophils % Basophils % Fibrinogen Puncture Site Left radial ABG pH 7.44 ABG pCO2 at Pt Temp 40.8 ABG pO2 at Pt Temp 82.1 ABG HCO3 27.5 H ABG O2 Sat (Measured) 95.7 ABG O2 Content 10.6 L ABG Base Excess 3.6 H Heber Test Positive O2 Delivery Device Mec.vent Oxygen Flow Rate 50% Vent Mode A/c Vent Rate 14 Mechanical Rate Esprit PEEP 5.0 Pressure Support Vent 400 Sodium Potassium Chloride Carbon Dioxide Anion Gap BUN Creatinine Creat Clearance w eGFR POC Glucometer [phone] Random Glucose Calcium Phosphorus Magnesium Total Bilirubin AST ALT Alkaline Phosphatase Total Protein Albumin Blood Type O POSITIVE Antibody Screen Negative Crossmatch See Detail Active Medications Generic Name Dose Route Start Last Admin Trade Name Freq PRN Reason Stop Dose Admin Acetaminophen 1,000 mg 07/19/16 15:43 07/29/16 21:44 Ofirmev Injection - IVPB 1,000 mg Q6H PRN Administration FEVER Albuterol/Ipratropium 1 amp 07/24/16 06:00 Duoneb - NEB Q6H PRN SHORTNESS OF BREATH Chlorhexidine Gluconate 1 applic 07/16/16 22:00 07/29/16 21:45 Hibiclens For Decolonization - TP 1 applic HS [facility] Administration Chlorhexidine Gluconate 15 ml 07/21/16 10:00 07/29/16 21:44 Peridex - MM 15 ml BID [facility] Administration Dextrose 50 ml 07/24/16 07:18 07/24/16 06:30 D50w (Vial) - IVPUSH 50 ml Q15M PRN Administration BLOOD SUGAR < 60 Enoxaparin Sodium 40 mg 07/27/16 22:00 07/29/16 21:44 Lovenox - SQ 40 mg BID [facility] Administration Norepinephrine Bitartrate 8, 500 mls @ 18.75 mls/hr 07/16/16 23:15 07/29/16 19: 00 000 mcg/ Dextrose IV 0 mcg/min TITR [facility]ERY Titration Protocol 5 MCG/MIN Meropenem 1 gm/ Dextrose 100 mls @ 100 mls/hr 07/19/16 18:00 07/30/16 02:14 IVPB 100 mls/hr Q8H-IV [facility] Administration Protocol Clindamycin Phosphate 50 mls @ 100 mls/hr 07/22/16 14:15 07/30/16 02:14 Cleocin 600 Mg Premix Ivpb - IVPB 100 mls/hr Q8H-IV [facility] Administration Fentanyl 500 mcg/ Dextrose 100 mls @ 10 mls/hr 07/28/16 12:00 07/29/16 22:33 IJ 7 mls/hr TITR [facility]ERY Administration 50 MCG/HR Dopamine HCl/Dextrose 250 mls @ 12.664 mls/hr 07/29/16 12:15 07/29/16 19:00 Dopamine 400 Mg/D5w - IVPB 25.328 mls/hr TITR [facility]ERY Administration Protocol 5 MCG/KG/MIN Fluconazole 100 mls @ 100 mls/hr 07/30/16 10:00 Diflucan 200 Mg/Ns Premixed Ivpb - IVPB DAILY [facility] Insulin Aspart 1 vial 07/17/16 16:30 07/30/16 06:28 Novolog Vial Sliding Scale - SQ 2 unit ACHS [facility] Administration Protocol Morphine Sulfate 2 mg 07/28/16 11:40 07/28/16 12:23 Morphine Injection - IVPUSH 2 mg Q2H PRN Administration PAIN Ranitidine HCl 150 mg 07/26/16 10:00 07/29/16 09:31 Zantac Oral Solution - PO 150 mg DAILY [facility] Administration Silver Sulfadiazine 1 applic 07/24/16 10:00 07/29/16 12:00 Silvadene - TP 1 applic DAILY [facility] Administration ASSESSMENT/PLAN: 65 yr old woman with HTN, dementia, NIDDM II admitted to ICU with septic shock secondary to perforated duodenal ulcer and peritonitis. - pain control with fentanyl drip 50mcg/hr with morphine IVPush 2mg q2hr prn - prognosis is poor. family would like to maintain patient's code status for full code. Cardivascular Hypotensive - requiring pressors, placed on dopamine (avoid levophed as it could lead to worsening of the acrocyanosis) - urine output: 1006cc/24hr - maintain goal MAP>65, current MAP 61 - bolus NS prn, ZAHIRA resolved, expect her to be able to manage fluid balance Pulmonary endotracheal tube placed 07/16 fio2 50%, sat 100%, RR 14 titrate to maintain spo2 >90% - pt RR 22 - did not tolerate wean - trach placement this Thursday with Dr. Louise Gastrointestinal; s/p repair perforated duodenal ulcer 07/16, - Meropenem IV 1gm q8hr - day 11 - Cleocin - 600gm q8h - day 8 - Diflucan 200mg IVPB daily, discussed with Dr. Burgess, continue for now - Day 14 - pepcid ivpb 20g daily - wound gram stain from sump pump insertion with gram neg polymorphic WBC and yeast-like organism, cx NGTD - concern for fistula at site - discharge is feculant, pus and appears to contain feeds. - feeds currently held Renal - - Bacon placed in ED pre-op 07/16 - consult: Dr. Tubbs; Dose all meds for Cr Cl less then 30 Infectious Disease, continous fevers on abx - gram stain and cx from insertion site of sump pump; gram stain with gram neg polymorphic WBC and yeast like organisms - consulted - meropenem + cleocin + diflucan - tylenol IVPB 1gm q6hr + ice packs at axilla, neck, groin. avoid cooling blanket on extremities and on feet. Endocrine NIDDM II - D5 Iv push 1 amp when BGM <60 - BGM q6hrs w/ goal 140-180, NISS Hematologic - cephalic vein SVT and right IJ clot, likley iatrogenic from central line placement - txment with lovenox BID 40sq daily - thrombocytopenia likely due to sepsis, r/o DIC - daily fibrinogen levels/coags , if fibrinogen level <100 consider cryoppt - goal to maintain plts>20,000 - trend H/H, transfuse of hgb <7.0, - transusion of 1 unit today - consult Dr. Church Neurologic AMS secondary to prolonged sedative effect or hypoperfusion causing anoxic brain injury Dr. Allen consulted for further neurological evaluation; rec MRI, however not transportable on vent, continue medical management. Mental status with purposeful movements today and increased extremity movement Dementia Diet: trickle tube feeds through NGT, 10cc/hr, Jevity - held due to concern for fistula between GI tract and pump insertion site DVT- lovenox BID Visit type - Emergency Visit Emergency Visit: No - New Patient This patient is new to me today: No - Critical Care Critical Care patient: Yes Total Critical Care Time (in minutes): 40 Critical Care Statement: The care of this patient involved high complexity decision making to prevent further life threatening deterioration of the patient 's condition and/or to evalute & treat vital organ system(s) failure or risk of failure.
[2016-07-30] MEDS: ENOXAPARIN NA (PORCINE) 40 MG/0.4 ML DISP.SYRIN SQ SCH ×2 (09:16→21:16)
[2016-07-30] MEDS: FLUCONAZOLE 200 MG/NS 100 ML IVPB SCH (09:16)
[2016-07-30] MEDS: CHLORHEXIDINE GLUCONATE 0.12% 15ML CUP MM SCH ×2 (09:17→21:16)
[2016-07-30] MEDS: RANITIDINE HCL 150 MG/10 ML UNIT-DOSE CUP PO SCH (09:17)
[2016-07-30] MEDS: ACETAMINOPHEN 1000 MG/100 ML VIAL (NON FORMULARY) IVPB PRN (09:35)
[2016-07-30] MEDS: morphine CARPU-JECT 2 MG/1 ML DISP.SYRIN IVPUSH PRN (09:53)
[2016-07-30] MEDS ORDERED: HEMOQUE TEST 1 EACH EACH ONE (11:30)
--- NOTE | 2016-07-30 11:33 | PN ---
Teaching Attending Note Name of Resident: Trevin Terrazas ATTENDING PHYSICIAN STATEMENT I saw and evaluated the patient. I reviewed the resident's note and discussed the case with the resident. I agree with the resident's findings and plan as documented. SUBJECTIVE: Pt seen and examined in the ICU. Remains intubated, poorly responsive off sedation. Weaning trial attempted but pt became tachypneic, hypoxic and in respiratory distress, placed back on volume assist control. Remains on dopamine gtt. OBJECTIVE: Last Vital Signs Temp Pulse Resp BP Pulse Ox 99.8 F H 109 H 24 108/55 96 07/30/16 10:00 07/30/16 10:00 07/30/16 10:00 07/30/16 10:00 07/29/16 09:56 Intake & Output 07/27/16 07/28/16 07/29/16 07/30/16 23:59 23:59 23:59 23:59 Intake Total 1605.5 1436 3162 1006.8 Output Total 1826 191 2440 Balance 405.5 686 2162 1006.8 Weight 155 lb 11.2 oz 149 lb 8 oz 148 lb 14.4 oz 149 lb 4.047 oz Gen: intubated, poorly responsive Heart: tachycardic, regular Lung: scattered rhonchi Abd: feculent drainage from right abdomen Ext: + edema, distal gangrene CBC, BMP 07/30/16 05:25 07/30/16 05:25 Active Medications Acetaminophen (Ofirmev Injection -) 1,000 mg IVPB Q6H PRN PRN Reason: FEVER Last Admin: 07/30/16 09:35 Dose: 1,000 mg Albuterol/Ipratropium (Duoneb -) 1 amp NEB Q6H PRN PRN Reason: SHORTNESS OF BREATH Chlorhexidine Gluconate (Hibiclens For Decolonization -) 1 applic TP HS [facility] Last Admin: 07/29/16 21:45 Dose: 1 applic Chlorhexidine Gluconate (Peridex -) 15 ml MM BID [facility] Last Admin: 07/30/16 09:17 Dose: 15 ml Dextrose (D50w (Vial) -) 50 ml IVPUSH Q15M PRN PRN Reason: BLOOD SUGAR < 60 Last Admin: 07/24/16 06:30 Dose: 50 ml Enoxaparin Sodium (Lovenox -) 40 mg SQ BID [facility] Last Admin: 07/30/16 09:16 Dose: 40 mg Norepinephrine Bitartrate 8, (000 mcg/ Dextrose) 500 mls @ 18.75 mls/hr IV TITR AVERY; 5 MCG/MIN PRN Reason: Protocol Last Titration: 07/29/16 19:00 Dose: 0 mcg/min Meropenem 1 gm/ Dextrose 100 mls @ 100 mls/hr IVPB Q8H-IV [facility] PRN Reason: Protocol Last Admin: 07/30/16 09:16 Dose: 100 mls/hr Clindamycin Phosphate (Cleocin 600 Mg Premix Ivpb -) 50 mls @ 100 mls/hr IVPB Q8H-IV [facility] Last Admin: 07/30/16 02:14 Dose: 100 mls/hr Fentanyl 500 mcg/ Dextrose 100 mls @ 10 mls/hr IJ TITR [facility] PRN Reason: 50 MCG/HR Last Admin: 07/29/16 22:33 Dose: 7 mls/hr Dopamine HCl/Dextrose (Dopamine 400 Mg/D5w -) 250 mls @ 12.664 mls/hr IVPB TITR [facility]; 5 MCG/KG/MIN PRN Reason: Protocol Last Admin: 07/29/16 19:00 Dose: 25.328 mls/hr Fluconazole (Diflucan 200 Mg/Ns Premixed Ivpb -) 100 mls @ 100 mls/hr IVPB DAILY [facility] Last Admin: 07/30/16 09:16 Dose: 100 mls/hr Insulin Aspart (Novolog Vial Sliding Scale -) 1 vial SQ ACHS [facility] PRN Reason: Protocol Last Admin: 07/30/16 06:28 Dose: 2 unit Morphine Sulfate (Morphine Injection -) 2 mg IVPUSH Q2H PRN PRN Reason: PAIN Last Admin: 07/30/16 09:53 Dose: 2 mg Ranitidine HCl (Zantac Oral Solution -) 150 mg PO DAILY [facility] Last Admin: 07/30/16 09:17 Dose: 150 mg Silver Sulfadiazine (Silvadene -) 1 applic TP DAILY [facility] Last Admin: 07/29/16 12:00 Dose: 1 applic ASSESSMENT AND PLAN: Perforated Duodenal Ulcer Peritonitis s/p ex-lap/omental patch repair 07/16 Acute Respiratory Failure Septic Shock Lactic Acidosis Leukopenia/Thrombocytopenia likely from sepsis DM - continue antibiotics - f/u cultures - IVF to keep CVP 8-12 - titrate pressors to maintain MAP >65, minimize IV piggybacks - monitor urine output, creatinine - will need lasix when hemodynamically stable - taper Fio2 to keep Spo2 >90% - monitor ABG - DVT/GI prophylaxis - continue ICU monitoring - prognosis is guarded, continue discussions regarding advanced directives and goals of care - will need tracheostomy for failure to wean critical care time spent in reviewing chart, evaluating patient and formulating plan 40 min
[2016-07-30 11:35] LABS: ARTERIAL BLD GAS O2 SATURATION 99.9 % (90-98.9); ARTERIAL BLOOD GAS BASE EXCESS 4.1 meq/l (-2-2); ARTERIAL BLOOD GAS HCO3 28.4 meq/L (22-26); ARTERIAL BLOOD GAS pH 7.42 (7.35-7.45)
[2016-07-30 11:36] LABS: ALLENS TEST POSITIVE; ART PUNCT SITE LEFT RADIAL; LPM/O2% 90%; MECH. VENT. ESPRIT; PT. ON O2? YES; TYPE OF O2 MEC.VENT; VENT RATE 14; VT/PRESS 400
--- NOTE | 2016-07-30 12:20 | PN ---
Progress Note (short form) - Note Progress Note: Neurology History of Present Illness The patient is a 65-year-old woman, with a significant past medical history of hypertension, hypercholesterolemia, diabetes mellitus and GI disorders who presented to the emergency department via walk-in for further evaluation of abdominal pain for the past 3-4 days with unintentional 20 lb weight loss over the past three months. She required surgical intervention as documented by Dr. Louise. Thereafter, complicated course and patient in ICU, off sedation for several days. CT head without acute changes. Patient was not awakening initially and remains on multiple pressors and concern was hypoperfusion and possible anoxic brain injury over the weekend. Since, has awoken and is keeps eye open, some tracking and producing spontaneous extremity movement as well following basic commands. Overbreathing vent, but does have notable gangrene of fingers and toes. protecting airway and remains intubated and on vent. Toxic metabolic vs hypoperfusion and anoxic brain injury. Would benefit from MRI but not able to obtain due to vent. May require Trach if unable to be weaned. Has sepsis and getting ongoing treatment. Failed weaning trial this morning. More fatigued appearing when I examiner her. Active Medications Acetaminophen (Ofirmev Injection -) 1,000 mg IVPB Q6H PRN PRN Reason: FEVER Last Admin: 07/30/16 09:35 Dose: 1,000 mg Albuterol/Ipratropium (Duoneb -) 1 amp NEB Q6H PRN PRN Reason: SHORTNESS OF BREATH Chlorhexidine Gluconate (Hibiclens For Decolonization -) 1 applic TP HS [facility] Last Admin: 07/29/16 21:45 Dose: 1 applic Chlorhexidine Gluconate (Peridex -) 15 ml MM BID [facility] Last Admin: 07/30/16 09:17 Dose: 15 ml Dextrose (D50w (Vial) -) 50 ml IVPUSH Q15M PRN PRN Reason: BLOOD SUGAR < 60 Last Admin: 07/24/16 06:30 Dose: 50 ml Enoxaparin Sodium (Lovenox -) 40 mg SQ BID [facility] Last Admin: 07/30/16 09:16 Dose: 40 mg Norepinephrine Bitartrate 8, (000 mcg/ Dextrose) 500 mls @ 18.75 mls/hr IV TITR [facility]; 5 MCG/MIN PRN Reason: Protocol Last Titration: 07/29/16 19:00 Dose: 0 mcg/min Meropenem 1 gm/ Dextrose 100 mls @ 100 mls/hr IVPB Q8H-IV [facility] PRN Reason: Protocol Last Admin: 07/30/16 09:16 Dose: 100 mls/hr Clindamycin Phosphate (Cleocin 600 Mg Premix Ivpb -) 50 mls @ 100 mls/hr IVPB Q8H-IV [facility] Last Admin: 07/30/16 02:14 Dose: 100 mls/hr Fentanyl 500 mcg/ Dextrose 100 mls @ 10 mls/hr IJ TITR [facility] PRN Reason: 50 MCG/HR Last Admin: 07/29/16 22:33 Dose: 7 mls/hr Dopamine HCl/Dextrose (Dopamine 400 Mg/D5w -) 250 mls @ 12.664 mls/hr IVPB TITR [facility]; 5 MCG/KG/MIN PRN Reason: Protocol Last Admin: 07/29/16 19:00 Dose: 25.328 mls/hr Fluconazole (Diflucan 200 Mg/Ns Premixed Ivpb -) 100 mls @ 100 mls/hr IVPB DAILY [facility] Last Admin: 07/30/16 09:16 Dose: 100 mls/hr Insulin Aspart (Novolog Vial Sliding Scale -) 1 vial SQ ACHS [facility] PRN Reason: Protocol Last Admin: 07/30/16 06:28 Dose: 2 unit Midodrine (Proamatine -) 2.5 mg PO BID-MID [facility] Morphine Sulfate (Morphine Injection -) 2 mg IVPUSH Q2H PRN PRN Reason: PAIN Last Admin: 07/30/16 09:53 Dose: 2 mg Ranitidine HCl (Zantac Oral Solution -) 150 mg PO DAILY [facility] Last Admin: 07/30/16 09:17 Dose: 150 mg Silver Sulfadiazine (Silvadene -) 1 applic TP DAILY [facility] Last Admin: 07/29/16 12:00 Dose: 1 applic *Physical Exam Vital Signs Temperature 99.8 F H 07/30/16 10:00 Pulse Rate 109 H 07/30/16 10:00 Respiratory Rate 24 07/30/16 10:00 Blood Pressure 108/55 07/30/16 10:00 O2 Sat by Pulse Oximetry (%) 96 07/29/16 09:56 GENERAL: Awake Frail appearing. HEENT: Normocephalic, atraumatic. +Temporal wasting. PERRL, EOMI. No conjunctival pallor. +Sclera are icteric. +Dry mucous membranes. Oropharynx is clear. NECK: Supple. Full ROM. No JVD. CARDIOVASCULAR: Tachycardic rate but regular rate and rhythm. No murmurs, rubs, or gallops. PULMONARY: +Diffuse dyspneic breath sounds that are equal bilaterally. No wheezing, crackles or rhonchi. ABDOMINAL: Firm but soft abdomen. Diffuse tenderness to palpation without rebound or guarding. Non-distended. No organomegaly. Normoactive bowel sounds. MUSCULOSKELETAL: Normal range of motion at all joints. No bony deformities or tenderness. No CVA tenderness. EXTREMITIES: No cyanosis. No clubbing. No edema. No calf tenderness. SKIN: Tenting of the skin. Jaundiced. No rashes. NEUROLOGICAL: Intubated, ventilation, opens eyes and minimal movement of extremities but not cooperating with confrontation testing, withdraws to pain PSYCHIATRIC: Cooperative. Good eye contact. Appropriate mood and affect. CBCD WBC 16.9 K/mm3 (4.0-10.0) H 07/30/16 05:25 RBC 2.41 M/mm3 (3.60-5.2) L 07/30/16 05:25 Hgb 7.0 GM/dL (10.7-15.3) L 07/30/16 05:25 Hct 21.4 % (32.4-45.2) L 07/30/16 05:25 MCV 89.1 fl (80-96) 07/30/16 05:25 MCHC 32.5 g/dl (32.0-36.0) 07/30/16 05:25 RDW 14.2 % (11.6-15.6) 07/30/16 05:25 Plt Count 304 K/MM3 (134-434) D 07/30/16 05:25 MPV 10.1 fl (7.5-11.1) 07/30/16 05:25 CMP Sodium 143 mmol/L (136-145) 07/30/16 05:25 Potassium 4.2 mmol/L (3.5-5.1) 07/30/16 05:25 Chloride 104 mmol/L (98-107) 07/30/16 05:25 Carbon Dioxide 29 mmol/L (21-32) 07/30/16 05:25 Anion Gap 10 (8-16) 07/30/16 05:25 BUN 27 mg/dL (7-18) H D 07/30/16 05:25 Creatinine 0.5 mg/dL (0.55-1.02) L D 07/30/16 05:25 Creat Clearance w eGFR > 60 (>60) 07/30/16 05:25 Calcium 7.8 mg/dL (8.5-10.1) L 07/30/16 05:25 Total Bilirubin 0.5 mg/dL (0.2-1.0) 07/30/16 05:25 AST 47 U/L (15-37) H D 07/30/16 05:25 ALT 48 U/L (12-78) 07/30/16 05:25 Alkaline Phosphatase 92 U/L (45-117) 07/30/16 05:25 Total Protein 4.3 g/dl (6.4-8.2) L 07/30/16 05:25 Albumin 0.9 g/dl (3.4-5.0) L 07/30/16 05:25 EXAM: CT/HEAD CT WITHOUT CONTRAST Interpreted by Dr. Pietro Fried IMPRESSION: Comparison study MRI of the brain February 23, 2015. Findings. Serial axial images of the brain were obtained from foramen magnum to the cranial vertex without intravenous contrast, with coronal, sagittal reconstruction images. No evidence of hydrocephalus, acute subarachnoid hemorrhage, acute intra-axial or extra-axial fluid collection consistent with subdural or epidural hematoma. No mass effect, midline shift, acute ischemic changes, herniation or edema is present. Normal yancey matter white matter differentiation. The cortical sulci, sylvian fissures, perimesencephalic cisterns are not effaced. The CSF spaces are age-appropriate. Supratentorial periventricular chronic white matter microangiopathic ischemic changes are noted. Examination of the bone windows show no fracture. Normal intracranial physiological calcifications are observed. The cranial vascular calcifications are noted. The visualized paranasal sinuses and mastoid air cells are clear. EXAM: CT/ABDOMEN PELVIS CT W/O CONTR Interpreted by Dr. Jennifer Day IMPRESSION: CT scan of the abdomen pelvis following oral contrast administration only Coronal and sagittal reformatted images were obtained No prior is available for comparison. Abdominal pain. Elevated liver function tests CT scan of the abdomen pelvis following oral contrast administration only Coronal and sagittal reformatted images were obtained No prior is available for comparison. Included lower lung demonstrates a small right pleural effusion with consolidation/atelectasis in the dependent portion of the right lower lobe. There is also consolidation/atelectasis in the right middle lobe and in the left lung base. The heart is within normal limits in size. There is a trace of pericardial effusion The liver measures 18.5 cm in craniocaudal length. The spleen, pancreas, both adrenal glands and both kidneys appear unremarkable except for a small left renal cyst measuring 1 cm. There are is excretion of oral contrast within the pelvicalyceal system of both kidneys suggestive of recent intravenous contrast injection. The gallbladder is adequately distended with mild thickening of its wall and small amount of pericholecystic free fluid. There is free air in the upper abdomen floating anteriorly. There is also a small amount of free air in the pelvis floating, anteriorly. A small amount of hyperdense fluid is seen around the liver suggestive of perforated viscus with extravasation of oral contrast. The stomach is partially distended limiting evaluation of its wall with suggestion of thickening of the gastric antrum wall. Duodenum is not well-visualized. There is mild diffuse dilatation of the small bowel loops with thickening of the jejunal loops. There is significant thickening of the transverse and distal portion of the ascending colon consistent with colitis. A few scattered diverticula are present mainly in the descending and proximal sigmoid colon without evidence of acute diverticulitis. Moderate amount of fecal residue in the distal sigmoid colon rule out impaction. Perirectal fat is clear. A Bacon catheter is present within decompressed urinary bladder with minimal intraluminal air. There is a moderate amount of hyperdense fluid in the pelvis seen anterior and superior to the urinary bladder. L4-L5 moderate degenerative disc disease. Visualized osseous structures appear otherwise intact Medical Decision Making 65-year-old woman, with a significant past medical history of hypertension, hypercholesterolemia, diabetes mellitus and GI disorders who presented to the emergency department via walk-in for further evaluation of abdominal pain for the past 3-4 days with unintentional 20 lb weight loss over the past three months. She required surgical intervention as documented by Dr. Louise. Thereafter , complicated course and patient in ICU, off sedation for several days. CT head without acute changes. Patient was not awakening initially and remains on multiple pressors and concern was hypoperfusion and possible anoxic brain injury over the weekend. Since, has awoken and is keeps eye open, some tracking and producing spontaneous extremity movement as well following basic commands. Toxic metabolic vs hypoperfusion and anoxic brain injury. Would benefit from MRI but not able to obtain due to vent. Continue sepsis treatment May require Trach if unable to be weaned. Failed weaning trial, fatigued appearing Continue medical optimization and monitor mental status.
--- NOTE | 2016-07-30 12:21 | PN ---
Progress Note, Physician Chief Complaint: Remained at her base line , spiked fever, opens eye to verbal command History of Present Illness: 65-year-old F H/O hypertension, hypercholesterolemia, T2DM, ETOH abuse, was presented to ED with abd pain and wt loss underwent exploratory laprotomy for perforated duodenal ulcer on 07/21/16 developed hypotention and sepsis intubated on pressers. - Current Medication List Current Medications: Active Medications Acetaminophen (Ofirmev Injection -) 1,000 mg IVPB Q6H PRN PRN Reason: FEVER Last Admin: 07/30/16 09:35 Dose: 1,000 mg Albuterol/Ipratropium (Duoneb -) 1 amp NEB Q6H PRN PRN Reason: SHORTNESS OF BREATH Chlorhexidine Gluconate (Hibiclens For Decolonization -) 1 applic TP HS [facility] Last Admin: 07/29/16 21:45 Dose: 1 applic Chlorhexidine Gluconate (Peridex -) 15 ml MM BID [facility] Last Admin: 07/30/16 09:17 Dose: 15 ml Dextrose (D50w (Vial) -) 50 ml IVPUSH Q15M PRN PRN Reason: BLOOD SUGAR < 60 Last Admin: 07/24/16 06:30 Dose: 50 ml Enoxaparin Sodium (Lovenox -) 40 mg SQ BID [facility] Last Admin: 07/30/16 09:16 Dose: 40 mg Norepinephrine Bitartrate 8, (000 mcg/ Dextrose) 500 mls @ 18.75 mls/hr IV TITR [facility]; 5 MCG/MIN PRN Reason: Protocol Last Titration: 07/29/16 19:00 Dose: 0 mcg/min Meropenem 1 gm/ Dextrose 100 mls @ 100 mls/hr IVPB Q8H-IV [facility] PRN Reason: Protocol Last Admin: 07/30/16 09:16 Dose: 100 mls/hr Clindamycin Phosphate (Cleocin 600 Mg Premix Ivpb -) 50 mls @ 100 mls/hr IVPB Q8H-IV [facility] Last Admin: 07/30/16 02:14 Dose: 100 mls/hr Fentanyl 500 mcg/ Dextrose 100 mls @ 10 mls/hr IJ TITR [facility] PRN Reason: 50 MCG/HR Last Admin: 07/29/16 22:33 Dose: 7 mls/hr Dopamine HCl/Dextrose (Dopamine 400 Mg/D5w -) 250 mls @ 12.664 mls/hr IVPB TITR [facility]; 5 MCG/KG/MIN PRN Reason: Protocol Last Admin: 07/29/16 19:00 Dose: 25.328 mls/hr Fluconazole (Diflucan 200 Mg/Ns Premixed Ivpb -) 100 mls @ 100 mls/hr IVPB DAILY [facility] Last Admin: 07/30/16 09:16 Dose: 100 mls/hr Insulin Aspart (Novolog Vial Sliding Scale -) 1 vial SQ ACHS [facility] PRN Reason: Protocol Last Admin: 07/30/16 06:28 Dose: 2 unit Midodrine (Proamatine -) 2.5 mg PO BID-MID [facility] Morphine Sulfate (Morphine Injection -) 2 mg IVPUSH Q2H PRN PRN Reason: PAIN Last Admin: 07/30/16 09:53 Dose: 2 mg Ranitidine HCl (Zantac Oral Solution -) 150 mg PO DAILY [facility] Last Admin: 07/30/16 09:17 Dose: 150 mg Silver Sulfadiazine (Silvadene -) 1 applic TP DAILY [facility] Last Admin: 07/29/16 12:00 Dose: 1 applic - Objective Vital Signs: Vital Signs Temperature 99.8 F H 07/30/16 10:00 Pulse Rate 109 H 07/30/16 10:00 Respiratory Rate 24 07/30/16 10:00 Blood Pressure 108/55 07/30/16 10:00 O2 Sat by Pulse Oximetry (%) 96 07/29/16 09:56 P Exam: Patient remained at base line, on Vent pressors and TPN HEENT: Mm most, ETT and NG Tube at place NECK: B/L Central line at place CHEST: Monmal basl crepts CVS; S1S2 R ABD: No distention, non tender fistula Rt UQ discharging exudates. EXT: all extremities distal gangrene, excoriation of skin and extremity edema. HOME COORDINATOR: Minimally responsive to verabl command , opens eye , no limb activity. Constitutional: Yes: Well Nourished Labs: CBC, BMP 07/30/16 05:25 07/30/16 05:25 INR, PTT INR 1.36 (0.82-1.09) H 07/29/16 05:30 Fibrinogen 641.0 mg/dL (238-498) H 07/30/16 05:25 Problem List - Problems (1) Perforated abdominal viscus Code(s): YQA8011 - (2) Acute metabolic encephalopathy Code(s): G93.41 - METABOLIC ENCEPHALOPATHY (3) Metabolic acidosis Code(s): E87.2 - ACIDOSIS (4) ZAHIRA (acute kidney injury) Code(s): N17.9 - ACUTE KIDNEY FAILURE, UNSPECIFIED (5) Thrombocytopenia Code(s): D69.6 - THROMBOCYTOPENIA, UNSPECIFIED (6) Ischemia of extremity Code(s): I99.8 - OTHER DISORDER OF CIRCULATORY SYSTEM
[2016-07-30] MEDS: SILVER SULFADIAZINE 1% TOP CREAM 50 GM JAR TP SCH (13:00)
--- NOTE | 2016-07-30 13:18 | PN ---
Progress Note (short form) - Note Progress Note: Renal Follow up for ZAHIRA/Metabolic acidosis Pt seen and examined in the ICU sedated on the Vent, FiO2 is 60% failed weaning as per ICU good urine output on Pressers Vital Signs Temperature 99.8 F H 07/30/16 10:00 Pulse Rate 92 H 07/30/16 12:00 Respiratory Rate 18 07/30/16 12:00 Blood Pressure 100/52 07/30/16 12:00 O2 Sat by Pulse Oximetry (%) 96 07/29/16 09:56 Intake & Output 07/27/16 07/28/16 07/29/16 07/30/16 23:59 23:59 23:59 23:59 Intake Total 1605.5 1436 3162 1006.8 Output Total 5413 032 4537 Balance 405.5 686 2162 1006.8 Weight 155 lb 11.2 oz 149 lb 8 oz 148 lb 14.4 oz 149 lb 4.047 oz Gen: on Vent, NAD CVS: RRR, No M/R Lungs: Dec BS b/l lung andino Abd: Abd pain in palce, sutures appear clean. + distension Ext: Trace to 1+ edema CBC, BMP 07/30/16 05:25 07/30/16 05:25 Current Medications Acetaminophen (Ofirmev Injection -) 1,000 mg IVPB Q6H PRN PRN Reason: FEVER Last Admin: 07/30/16 09:35 Dose: 1,000 mg Albuterol/Ipratropium (Duoneb -) 1 amp NEB Q6H PRN PRN Reason: SHORTNESS OF BREATH Chlorhexidine Gluconate (Hibiclens For Decolonization -) 1 applic TP HS [facility] Last Admin: 07/29/16 21:45 Dose: 1 applic Chlorhexidine Gluconate (Peridex -) 15 ml MM BID [facility] Last Admin: 07/30/16 09:17 Dose: 15 ml Dextrose (D50w (Vial) -) 50 ml IVPUSH Q15M PRN PRN Reason: BLOOD SUGAR < 60 Last Admin: 07/24/16 06:30 Dose: 50 ml Enoxaparin Sodium (Lovenox -) 40 mg SQ BID [facility] Last Admin: 07/30/16 09:16 Dose: 40 mg Norepinephrine Bitartrate 8, (000 mcg/ Dextrose) 500 mls @ 18.75 mls/hr IV TITR [facility]; 5 MCG/MIN PRN Reason: Protocol Last Titration: 07/29/16 19:00 Dose: 0 mcg/min Meropenem 1 gm/ Dextrose 100 mls @ 100 mls/hr IVPB Q8H-IV [facility] PRN Reason: Protocol Last Admin: 07/30/16 09:16 Dose: 100 mls/hr Clindamycin Phosphate (Cleocin 600 Mg Premix Ivpb -) 50 mls @ 100 mls/hr IVPB Q8H-IV [facility] Last Admin: 07/30/16 02:14 Dose: 100 mls/hr Fentanyl 500 mcg/ Dextrose 100 mls @ 10 mls/hr IJ TITR [facility] PRN Reason: 50 MCG/HR Last Admin: 07/29/16 22:33 Dose: 7 mls/hr Dopamine HCl/Dextrose (Dopamine 400 Mg/D5w -) 250 mls @ 12.664 mls/hr IVPB TITR [facility]; 5 MCG/KG/MIN PRN Reason: Protocol Last Admin: 07/29/16 19:00 Dose: 25.328 mls/hr Fluconazole (Diflucan 200 Mg/Ns Premixed Ivpb -) 100 mls @ 100 mls/hr IVPB DAILY [facility] Last Admin: 07/30/16 09:16 Dose: 100 mls/hr Insulin Aspart (Novolog Vial Sliding Scale -) 1 vial SQ ACHS [facility] PRN Reason: Protocol Last Admin: 07/30/16 06:28 Dose: 2 unit Midodrine (Proamatine -) 2.5 mg PO BID-MID [facility] Morphine Sulfate (Morphine Injection -) 2 mg IVPUSH Q2H PRN PRN Reason: PAIN Last Admin: 07/30/16 09:53 Dose: 2 mg Ranitidine HCl (Zantac Oral Solution -) 150 mg PO DAILY [facility] Last Admin: 07/30/16 09:17 Dose: 150 mg Silver Sulfadiazine (Silvadene -) 1 applic TP DAILY [facility] Last Admin: 07/29/16 12:00 Dose: 1 applic A/P 65 year old woman with PMhx of hypertension, hypercholesterolemia, diabetes mellitus who presented with Abd pain and found to have perforated Abd viscus s/ p emergent Sx now with Septic Shock, ZAHIRA and Metabolic Acidosis. #Sepsis/Perforated Abd Viscus Continue Vasopressers, titrate as per ICU on Vent, failed weaning and will likely require trach ICU monitoring #Peripheral cyanosis titrate pressers as needed supportive care #Anemia Trend CBC Transfuse as per ICU protocol #Hypomagnesemia Mag Sulfate 2g IV x 1 Trend mg daily #Renal Failure Renal function now improved and stable #Metabolic acidosis No resolved Thank you Cyril Tubbs DO
[2016-07-30] MEDS ORDERED: MAGNESIUM SULF 50% (8.12 MEQ/2 ML-1 GM VIAL) IVPB ONE (14:15)
[2016-07-30] MEDS ORDERED: SODIUM CHLORIDE 500 ML IV STA (16:16)
--- NOTE | 2016-07-30 16:30 | PN ---
Progress Note, Physician - Current Medication List Current Medications: Active Medications Acetaminophen (Ofirmev Injection -) 1,000 mg IVPB Q6H PRN PRN Reason: FEVER Last Admin: 07/30/16 09:35 Dose: 1,000 mg Albuterol/Ipratropium (Duoneb -) 1 amp NEB Q6H PRN PRN Reason: SHORTNESS OF BREATH Chlorhexidine Gluconate (Hibiclens For Decolonization -) 1 applic TP HS [facility] Last Admin: 07/29/16 21:45 Dose: 1 applic Chlorhexidine Gluconate (Peridex -) 15 ml MM BID [facility] Last Admin: 07/30/16 09:17 Dose: 15 ml Dextrose (D50w (Vial) -) 50 ml IVPUSH Q15M PRN PRN Reason: BLOOD SUGAR < 60 Last Admin: 07/24/16 06:30 Dose: 50 ml Enoxaparin Sodium (Lovenox -) 40 mg SQ BID [facility] Last Admin: 07/30/16 09:16 Dose: 40 mg Norepinephrine Bitartrate 8, (000 mcg/ Dextrose) 500 mls @ 18.75 mls/hr IV TITR [facility]; 5 MCG/MIN PRN Reason: Protocol Last Titration: 07/29/16 19:00 Dose: 0 mcg/min Meropenem 1 gm/ Dextrose 100 mls @ 100 mls/hr IVPB Q8H-IV [facility] PRN Reason: Protocol Last Admin: 07/30/16 09:16 Dose: 100 mls/hr Clindamycin Phosphate (Cleocin 600 Mg Premix Ivpb -) 50 mls @ 100 mls/hr IVPB Q8H-IV [facility] Last Admin: 07/30/16 02:14 Dose: 100 mls/hr Fentanyl 500 mcg/ Dextrose 100 mls @ 10 mls/hr IJ TITR [facility] PRN Reason: 50 MCG/HR Last Admin: 07/29/16 22:33 Dose: 7 mls/hr Dopamine HCl/Dextrose (Dopamine 400 Mg/D5w -) 250 mls @ 12.664 mls/hr IVPB TITR [facility]; 5 MCG/KG/MIN PRN Reason: Protocol Last Admin: 07/29/16 19:00 Dose: 25.328 mls/hr Fluconazole (Diflucan 200 Mg/Ns Premixed Ivpb -) 100 mls @ 100 mls/hr IVPB DAILY [facility] Last Admin: 07/30/16 09:16 Dose: 100 mls/hr Sodium Chloride (Normal Saline -) 500 mls @ 500 mls/hr IV ASDIR STA Stop: 07/30/16 17:15 Insulin Aspart (Novolog Vial Sliding Scale -) 1 vial SQ ACHS [facility] PRN Reason: Protocol Last Admin: 07/30/16 06:28 Dose: 2 unit Midodrine (Proamatine -) 2.5 mg PO BID-MID [facility] Morphine Sulfate (Morphine Injection -) 2 mg IVPUSH Q2H PRN PRN Reason: PAIN Last Admin: 07/30/16 09:53 Dose: 2 mg Ranitidine HCl (Zantac Oral Solution -) 150 mg PO DAILY [facility] Last Admin: 07/30/16 09:17 Dose: 150 mg Silver Sulfadiazine (Silvadene -) 1 applic TP DAILY [facility] Last Admin: 07/29/16 12:00 Dose: 1 applic - Objective Vital Signs: Vital Signs Temperature 99.2 F 07/30/16 14:00 Pulse Rate 98 H 07/30/16 14:00 Respiratory Rate 18 07/30/16 16:20 Blood Pressure 86/50 07/30/16 14:00 O2 Sat by Pulse Oximetry (%) 96 07/29/16 09:56 Labs: CBC, BMP 07/30/16 05:25 07/30/16 05:25 INR, PTT INR 1.36 (0.82-1.09) H 07/29/16 05:30 Fibrinogen 641.0 mg/dL (238-498) H 07/30/16 05:25 Problem List - Problems (1) Abdominal pain Code(s): R10.9 - UNSPECIFIED ABDOMINAL PAIN Qualifiers: Abdominal location: periumbilical Qualified Code(s): R10.33 - Periumbilical pain (2) Perforated abdominal viscus Code(s): [id number] - (3) Perforated viscus Code(s): R19.8 - OTH SYMPTOMS AND SIGNS INVOLVING THE DGSTV SYS AND ABDOMEN (4) Hypertension Code(s): I10 - ESSENTIAL (PRIMARY) HYPERTENSION Qualifiers: Hypertension type: essential hypertension Qualified Code(s): I10 - Essential (primary) hypertension Assessment/Plan Surgery: Patient responds to painful stimuli . Abdomen is oft , not distended, She is having bowel movements. 700 ml of brownish fluid is draining from drain site, ? intestinal fistula. will obtain Ct scan with oral and IV contrast. WBC is rising. Discussed with ICU team.
[2016-07-30] MEDS ORDERED: NOREPINEPHRINE BITARTRATE 4 MG/4 ML ML IV ONE (19:02)
[2016-07-30] MEDS: DOPAMINE 400 MG/D5W - 250 ML IVPB SCH (19:13)
[2016-07-30] MEDS: FENTANYL INJECTION 500 MCG in DEXTROSE 5%-WATER - 90 ML IJ SCH (19:13)
[2016-07-30] MEDS: MIDODRINE HCL 2.5 MG TABLET PO SCH (19:14)
[2016-07-30] MEDS: CHLORHEXIDINE GLUCONATE 4% CLEANSER FOR DECOLONIZATION TP SCH (21:14)
[2016-07-30] MEDS ORDERED: PT OWN MED DRAWER 7, Y5N ONE (21:16)
[2016-07-31] MEDS: FENTANYL INJECTION 500 MCG in DEXTROSE 5%-WATER - 90 ML IJ SCH ×4 (01:43→18:23)
[2016-07-31] MEDS: MEROPENEM 1 GM in DEXTROSE 5%-WATER - 100 ML IVPB SCH ×2 (01:43→09:14)
[2016-07-31] MEDS: CLINDAMYCIN 600MG PREMIX IVPB 50 ML IVPB SCH ×3 (01:43→17:47)
[2016-07-31 06:14] LABS: MCH 28.8 pg (25.7-33.7); MCHC 32.8 g/dl (32.0-36.0); MEAN PLT VOLUME 9.4 fl (7.5-11.1); PLATELET COUNT 339 K/MM3 (134-434); RDW 14.9 % (11.6-15.6); WHITE BLOOD COUNT 13.5 K/mm3 (4.0-10.0)
[2016-07-31 06:31] LABS: ALK PHOS 85 U/L (45-117); ANION GAP 10 (8-16); BILIRUBIN,TOTAL 0.5 mg/dL (0.2-1.0); CALCIUM 7.8 mg/dL (8.5-10.1); CO2 29 mmol/L (21-32); CREATININE 0.3 mg/dL (0.55-1.02); GLUCOSE,RANDOM 146 mg/dL (74-106); MAGNESIUM 1.6 mg/dL (1.8-2.4); PHOSPHOROUS 3.3 mg/dL (2.5-4.9); SGOT/AST 35 U/L (15-37); SGPT/ALT 37 U/L (12-78); TOT PROT 4.3 g/dl (6.4-8.2)
[2016-07-31] MEDS: INSULIN SLIDING SCALE (NOVOLOG) 1 VIAL SQ SCH ×4 (06:36→22:07)
[2016-07-31 06:58] LABS: ALBUMIN 0.9 g/dl (3.4-5.0); COCKROFT - GAULT 196.35
--- NOTE | 2016-07-31 07:10 | PN ---
Physical Exam: SUBJECTIVE: Patient seen and examined. abdominal CT scan with po contrast with fistula. awake, alert, follows simple commands, able to nod yes and no. feeds held since yesterday. OBJECTIVE: Vital Signs Period Temp Pulse Resp BP Sys/Major Pulse Ox Last 24 Hr 98 F-101 F 85-109 14-27 82-108/41-62 99 HEAD: Bitemporal wasting EYES: JL, EOMI, sclera anicteric. ENT: NGT in place, oropharynx with ET in place. dry mucous membranes. NECK: Trachea midline. LUNGS: diffuse rhonchi, few crackles, anterior bilaterally, no wheezes, quiet at bases. HEART: regular rate/rhythm, S1, S2 without murmur, rub or gallop. ABDOMEN: colectomy placed over sump pump tube insertion site. surrounding erythema, soft abdomen. no discharge from midline inscion, hyperpigmented skin at staple incision sites , incision is healing, open ulcers throughout abdomen with scant serous discharge, covered in xeroform EXTREMITIES: absent pulses in DP/radial b/l, acrocyanosis extending from fingernails to mid-forearm, grangrene at fingertips to 1st joint, dry. cold extremities acrocyanosis in toes, marked in 5th digits b/l with skin mottling upto ankles. no edema. scant fluid filled vesicles at medial ankles b/l. SKIN: multiple open ulcers (abdomen, inner thighs, neck and arms), erythema on anterior left thigh. NEUROLOGICAL: responsive to verbal stimuli. spontaneously moves right forearm and left condon, some flexion at fingers and minimally moves feet with delay on command, makes eye contact with tracking to the right. grimaces when feet and abdomen are touched, retracts to painful stimuli, follows commands to look upto ceiling, nods yes and no to questions. Laboratory Results - last 24 hr 07/30/16 07/30/16 07/30/16 05:25 05:32 07:35 Fibrinogen 641.0 H Puncture Site ABG pH ABG pCO2 at Pt Temp ABG pO2 at Pt Temp ABG HCO3 ABG O2 Sat (Measured) ABG O2 Content ABG Base Excess Heber Test O2 Delivery Device Oxygen Flow Rate Vent Mode Vent Rate Mechanical Rate PEEP Pressure Support Vent Sodium Potassium Chloride Carbon Dioxide Anion Gap BUN Creatinine Creat Clearance w eGFR POC Glucometer [phone] Random Glucose Calcium Phosphorus Magnesium Total Bilirubin AST ALT Alkaline Phosphatase Total Protein Albumin Blood Type O POSITIVE Antibody Screen Negative Crossmatch See Detail 07/30/16 07/30/16 07/30/16 07:35 11:30 11:33 Fibrinogen Puncture Site Left radial Left radial ABG pH 7.44 7.42 ABG pCO2 at Pt Temp 40.8 44.3 ABG pO2 at Pt Temp 82.1 304.0 H* ABG HCO3 27.5 H 28.4 H ABG O2 Sat (Measured) 95.7 99.9 H* ABG O2 Content 10.6 L 11.3 L ABG Base Excess 3.6 H 4.1 H Heber Test Positive Positive O2 Delivery Device Mec.vent Mec.vent Oxygen Flow Rate 50% 90% Vent Mode A/c A/c Vent Rate 14 14 Mechanical Rate Esprit Esprit PEEP 5.0 5.0 Pressure Support Vent 400 400 Sodium Potassium Chloride Carbon Dioxide Anion Gap BUN Creatinine Creat Clearance w eGFR POC Glucometer [phone] Random Glucose Calcium Phosphorus Magnesium Total Bilirubin AST ALT Alkaline Phosphatase Total Protein Albumin Blood Type Antibody Screen Crossmatch 07/30/16 07/31/16 07/31/16 21:13 05:40 06:18 Fibrinogen Puncture Site ABG pH ABG pCO2 at Pt Temp ABG pO2 at Pt Temp ABG HCO3 ABG O2 Sat (Measured) ABG O2 Content ABG Base Excess Heber Test O2 Delivery Device Oxygen Flow Rate Vent Mode Vent Rate Mechanical Rate PEEP Pressure Support Vent Sodium 144 Potassium 4.3 Chloride 105 Carbon Dioxide 29 Anion Gap 10 BUN 21 H D Creatinine 0.3 L D Creat Clearance w eGFR > 60 POC Glucometer 181.34814 165.26431 Random Glucose 146 H Calcium 7.8 L Phosphorus 3.3 Magnesium 1.6 L Total Bilirubin 0.5 AST 35 D ALT 37 D Alkaline Phosphatase 85 Total Protein 4.3 L Albumin 0.9 L Blood Type Antibody Screen Crossmatch Active Medications Generic Name Dose Route Start Last Admin Trade Name Freq PRN Reason Stop Dose Admin Acetaminophen 1,000 mg 07/19/16 15:43 07/30/16 09:35 Ofirmev Injection - IVPB 1,000 mg Q6H PRN Administration FEVER Albuterol/Ipratropium 1 amp 07/24/16 06:00 07/31/16 03:50 Duoneb - NEB 1 amp Q6H PRN Administration SHORTNESS OF BREATH Chlorhexidine Gluconate 1 applic 07/16/16 22:00 07/30/16 21:14 Hibiclens For Decolonization - TP 1 applic HS AVERY Administration Chlorhexidine Gluconate 15 ml 07/21/16 10:00 07/30/16 21:16 Peridex - MM 15 ml BID AVERY Administration Dextrose 50 ml 07/24/16 07:18 07/24/16 06:30 D50w (Vial) - IVPUSH 50 ml Q15M PRN Administration BLOOD SUGAR < 60 Enoxaparin Sodium 40 mg 07/27/16 22:00 07/30/16 21:16 Lovenox - SQ 40 mg BID AVERY Administration Norepinephrine Bitartrate 8, 500 mls @ 18.75 mls/hr 07/16/16 23:15 07/29/16 19: 00 000 mcg/ Dextrose IV 0 mcg/min TITR AVERY Titration Protocol 5 MCG/MIN Meropenem 1 gm/ Dextrose 100 mls @ 100 mls/hr 07/19/16 18:00 07/31/16 01:43 IVPB 100 mls/hr Q8H-IV AVERY Administration Protocol Clindamycin Phosphate 50 mls @ 100 mls/hr 07/22/16 14:15 07/31/16 01:43 Cleocin 600 Mg Premix Ivpb - IVPB 100 mls/hr Q8H-IV AVERY Administration Fentanyl 500 mcg/ Dextrose 100 mls @ 10 mls/hr 07/28/16 12:00 07/31/16 01:43 IJ 15 mls/hr TITR AVERY Administration 50 MCG/HR Dopamine HCl/Dextrose 250 mls @ 12.664 mls/hr 07/29/16 12:15 07/30/16 19:13 Dopamine 400 Mg/D5w - IVPB 25.328 mls/hr TITR AVERY Administration Protocol 5 MCG/KG/MIN Fluconazole 100 mls @ 100 mls/hr 07/30/16 10:00 07/30/16 09:16 Diflucan 200 Mg/Ns Premixed Ivpb - IVPB 100 mls/hr DAILY AVERY Administration Insulin Aspart 1 vial 07/17/16 16:30 07/31/16 06:36 Novolog Vial Sliding Scale - SQ 2 unit ACHS AVERY Administration Protocol Midodrine 2.5 mg 07/30/16 18:00 07/30/16 19:14 Proamatine - PO Not Given BID-MID AVERY Morphine Sulfate 2 mg 07/28/16 11:40 07/30/16 09:53 Morphine Injection - IVPUSH 2 mg Q2H PRN Administration PAIN Ranitidine HCl 150 mg 07/26/16 10:00 07/30/16 09:17 Zantac Oral Solution - PO 150 mg DAILY AVERY Administration Silver Sulfadiazine 1 applic 07/24/16 10:00 07/30/16 13:00 Silvadene - TP 1 applic DAILY AVERY Administration ASSESSMENT/PLAN: 65 yr old woman with HTN, dementia, NIDDM II admitted to ICU with septic shock secondary to perforated duodenal ulcer and peritonitis, 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 - pain control with fentanyl and morphine Card[facility]ascular Hypotensive - requiring pressors, placed on dopamine (avoid levophed as it could lead to worsening of the acrocyanosis) - urine output: 300cc/12hr - maintain goal MAP>65, current MAP 47 - bolus NS prn, ZAHIRA resolved, expect her to be able to manage fluid balance - to start TPN today - right IJ central line placed today 07/31 Pulmonary endotracheal tube placed 07/16 fio2 40%, sat 100%, RR 14 titrate to maintain spo2 >90% - pt RR 26 - patient is not able to tolerate weaning trials. - possible trach placement this Thursday with Dr. Louise Gastrointestinal; s/p repair perforated duodenal ulcer 07/16, - Meropenem IV 1gm q8hr - day 12 - Cleocin - 600gm q8h - day 9 - Diflucan 200mg IVPB daily, discussed with Dr. Burgess, continue for now - Day 15 - pepcid ivpb 20g daily - enterocutaenous fistula with colostomy bag -- stop tube feeds, bowel rest and monitor output - to start on TPN today Renal - - Bacon placed in ED pre-op 07/16 - consult: Dr. Tubbs; Dose all meds for Cr Cl less then 30 Infectious Disease - consulted - meropenem + cleocin + diflucan - tylenol IVPB 1gm q6hr for fevers + ice packs at axilla, neck, groin. avoid cooling blanket on extremities and on feet. Endocrine NIDDM II - D5 Iv push 1 amp when BGM <60 - BGM q6hrs w/ goal 140-180, NISS Hematologic - cephalic vein SVT and right IJ clot, likley iatrogenic from central line placement - txment with lovenox BID 40sq daily - thrombocytopenia likely due to sepsis, r/o DIC - daily fibrinogen levels/coags , if fibrinogen level <100 consider cryoppt - goal to maintain plts>20,000 - trend H/H, transfuse of hgb <7.0, - consult Dr. Church Neurologic AMS secondary to prolonged sedative effect or hypoperfusion causing anoxic brain injury Dr. Allen consulted for further neurological evaluation; rec MRI, however not transportable on vent, continue medical management. Mental status with purposeful movements today and increased extremity movement Dementia Diet: TPN DVT- lovenox BID Visit type - Emergency Visit Emergency Visit: No - New Patient This patient is new to me today: No - Critical Care Critical Care patient: Yes Total Critical Care Time (in minutes): 45 Critical Care Statement: The care of this patient involved high complexity decision making to prevent further life threatening deterioration of the patient 's condition and/or to evalute & treat vital organ system(s) failure or risk of failure.
[2016-07-31] MEDS ORDERED: MAGNESIUM SULF 50% (8.12 MEQ/2 ML-1 GM VIAL) IVPB ONE (07:17)
[2016-07-31 07:35] LABS: ARTERIAL BLD GAS O2 SATURATION 95.6 % (90-98.9); ARTERIAL BLOOD GAS BASE EXCESS 4.6 meq/l (-2-2); ARTERIAL BLOOD GAS HCO3 28.8 meq/L (22-26); ARTERIAL BLOOD GAS pH 7.44 (7.35-7.45)
[2016-07-31 07:37] LABS: ALLENS TEST POSITIVE
[2016-07-31 07:38] LABS: ART PUNCT SITE LEFT RADIAL; LPM/O2% 40%; MECH. VENT. YES; PT. ON O2? YES; TYPE OF O2 VENT; VENT RATE 14; VT/PRESS 400
[2016-07-31] MEDS: FLUCONAZOLE 200 MG/NS 100 ML IVPB SCH (09:14)
[2016-07-31] MEDS: ENOXAPARIN NA (PORCINE) 40 MG/0.4 ML DISP.SYRIN SQ SCH ×2 (09:15→21:23)
[2016-07-31] MEDS: SILVER SULFADIAZINE 1% TOP CREAM 50 GM JAR TP SCH (09:15)
[2016-07-31] MEDS: RANITIDINE HCL 150 MG/10 ML UNIT-DOSE CUP PO SCH (09:15)
[2016-07-31] MEDS: CHLORHEXIDINE GLUCONATE 0.12% 15ML CUP MM SCH ×2 (09:15→21:22)
[2016-07-31] MEDS: MIDODRINE HCL 2.5 MG TABLET PO SCH (09:16)
--- NOTE | 2016-07-31 11:50 | PN ---
Progress Note (short form) - Note Progress Note: Neurology History of Present Illness The patient is a 65-year-old woman, with a significant past medical history of hypertension, hypercholesterolemia, diabetes mellitus and GI disorders who presented to the emergency department via walk-in for further evaluation of abdominal pain for the past 3-4 days with unintentional 20 lb weight loss over the past three months. She required surgical intervention as documented by Dr. Louise. Thereafter, complicated course and patient in ICU, off sedation for several days. CT head without acute changes. Patient was not awakening initially and remains on multiple pressors and concern was hypoperfusion and possible anoxic brain injury over the weekend. Since, has awoken and is keeps eye open, some tracking and producing spontaneous extremity movement as well following basic commands. 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 Overbreathing vent, but does have notable gangrene of fingers and toes. protecting airway and remains intubated and on vent. Toxic metabolic vs hypoperfusion and anoxic brain injury. Would benefit from MRI but not able to obtain due to vent. May require Trach if unable to be weaned, failed weaning trial. Has sepsis and getting ongoing treatment. Remains on blood pressure support with pressors. *Physical Exam Last Vital Signs Temp Pulse Resp BP Pulse Ox 99.2 F 90 17 88/46 95 07/31/16 10:07/31/16 10:00 07/31/16 10:07/31/16 10:07/31/16 09:47 GENERAL: Awake Frail appearing. HEENT: Normocephalic, atraumatic. +Temporal wasting. PERRL, EOMI. No conjunctival pallor. +Sclera are icteric. +Dry mucous membranes. Oropharynx is clear. NECK: Supple. Full ROM. No JVD. CARDIOVASCULAR: Tachycardic rate but regular rate and rhythm. No murmurs, rubs, or gallops. PULMONARY: +Diffuse dyspneic breath sounds that are equal bilaterally. No wheezing, crackles or rhonchi. ABDOMINAL: Firm but soft abdomen. Diffuse tenderness to palpation without rebound or guarding. Non-distended. No organomegaly. Normoactive bowel sounds. MUSCULOSKELETAL: Normal range of motion at all joints. No bony deformities or tenderness. No CVA tenderness. EXTREMITIES: No cyanosis. No clubbing. No edema. No calf tenderness. SKIN: Tenting of the skin. Jaundiced. No rashes. NEUROLOGICAL: Intubated, ventilation, opens eyes and minimal movement of extremities but not cooperating with confrontation testing, withdraws to pain PSYCHIATRIC: Cooperative. Good eye contact. Appropriate mood and affect. CBCD WBC 13.5 K/mm3 (4.0-10.0) H 07/31/16 05:40 RBC 2.69 M/mm3 (3.60-5.2) L 07/31/16 05:40 Hgb 7.8 GM/dL (10.7-15.3) L D 07/31/16 05:40 Hct 23.7 % (32.4-45.2) L 07/31/16 05:40 MCV 88.0 fl (80-96) 07/31/16 05:40 MCHC 32.8 g/dl (32.0-36.0) 07/31/16 05:40 RDW 14.9 % (11.6-15.6) 07/31/16 05:40 Plt Count 339 K/MM3 (134-434) 07/31/16 05:40 MPV 9.4 fl (7.5-11.1) 07/31/16 05:40 CMP Sodium 144 mmol/L (136-145) 07/31/16 05:40 Potassium 4.3 mmol/L (3.5-5.1) 07/31/16 05:40 Chloride 105 mmol/L (98-107) 07/31/16 05:40 Carbon Dioxide 29 mmol/L (21-32) 07/31/16 05:40 Anion Gap 10 (8-16) 07/31/16 05:40 BUN 21 mg/dL (7-18) H D 07/31/16 05:40 Creatinine 0.3 mg/dL (0.55-1.02) L D 07/31/16 05:40 Creat Clearance w eGFR > 60 (>60) 07/31/16 05:40 Calcium 7.8 mg/dL (8.5-10.1) L 07/31/16 05:40 Total Bilirubin 0.5 mg/dL (0.2-1.0) 07/31/16 05:40 AST 35 U/L (15-37) D 07/31/16 05:40 ALT 37 U/L (12-78) D 07/31/16 05:40 Alkaline Phosphatase 85 U/L (45-117) 07/31/16 05:40 Total Protein 4.3 g/dl (6.4-8.2) L 07/31/16 05:40 Albumin 0.9 g/dl (3.4-5.0) L 07/31/16 05:40 EXAM: CT/HEAD CT WITHOUT CONTRAST Interpreted by Dr. Pietro Fried IMPRESSION: Comparison study MRI of the brain February 23, 2015. Findings. Serial axial images of the brain were obtained from foramen magnum to the cranial vertex without intravenous contrast, with coronal, sagittal reconstruction images. No evidence of hydrocephalus, acute subarachnoid hemorrhage, acute intra-axial or extra-axial fluid collection consistent with subdural or epidural hematoma. No mass effect, midline shift, acute ischemic changes, herniation or edema is present. Normal yancey matter white matter differentiation. The cortical sulci, sylvian fissures, perimesencephalic cisterns are not effaced. The CSF spaces are age-appropriate. Supratentorial periventricular chronic white matter microangiopathic ischemic changes are noted. Examination of the bone windows show no fracture. Normal intracranial physiological calcifications are observed. The cranial vascular calcifications are noted. The visualized paranasal sinuses and mastoid air cells are clear. Medical Decision Making 65-year-old woman, with a significant past medical history of hypertension, hypercholesterolemia, diabetes mellitus and GI disorders who presented to the emergency department via walk-in for further evaluation of abdominal pain for the past 3-4 days with unintentional 20 lb weight loss over the past three months. She required surgical intervention as documented by Dr. Louise. Thereafter , complicated course and patient in ICU, off sedation for several days. CT head without acute changes. Patient was not awakening initially and remains on multiple pressors and concern was hypoperfusion and possible anoxic brain injury over the weekend. Since, has awoken and is keeps eye open, some tracking and producing spontaneous extremity movement as well following basic commands. Toxic metabolic vs hypoperfusion and anoxic brain injury. Would benefit from MRI but not able to obtain due to vent. Fistula mgmt per Dr. Louise Continue sepsis treatment May require Trach if unable to be weaned, defer to pulm On pressors, monitor blood pressures Medical mgmt for pleural effusions Continue medical optimization and monitor mental status.
--- NOTE | 2016-07-31 12:33 | PN ---
Progress Note (short form) - Note Progress Note: Renal Follow up for ZAHIRA/Metabolic acidosis Pt seen and examined in the ICU sedated on Fentayl on Vent via ET tube CT showed fistula from stomach/duodenum to abd wall Vital Signs Temperature 99.2 F 07/31/16 10:00 Pulse Rate 90 07/31/16 10:00 Respiratory Rate 16 07/31/16 12:24 Blood Pressure 88/46 07/31/16 10:00 O2 Sat by Pulse Oximetry (%) 100 07/31/16 12:25 Intake & Output 07/28/16 07/29/16 07/30/16 07/31/16 23:59 23:59 23:59 23:59 Intake Total 1436 3162 2449.6 624 Output Total 750 1000 700 300 Balance 686 2162 1749.6 324 Weight 149 lb 8 oz 148 lb 14.4 oz 149 lb 4.047 oz 151 lb 3.794 oz Gen: on Vent, NAD CVS: RRR, No M/R Lungs: Dec BS b/l lung andino Abd: Dressing on Abd, mild distension Ext: Trace to 1+ edema CBC, BMP 07/31/16 05:40 07/31/16 05:40 Current Medications Acetaminophen (Ofirmev Injection -) 1,000 mg IVPB Q6H PRN PRN Reason: FEVER Last Admin: 07/30/16 09:35 Dose: 1,000 mg Albuterol/Ipratropium (Duoneb -) 1 amp NEB Q6H PRN PRN Reason: SHORTNESS OF BREATH Last Admin: 07/31/16 03:50 Dose: 1 amp Chlorhexidine Gluconate (Hibiclens For Decolonization -) 1 applic TP HS [facility] Last Admin: 07/30/16 21:14 Dose: 1 applic Chlorhexidine Gluconate (Peridex -) 15 ml MM BID AVERY Last Admin: 07/31/16 09:15 Dose: 15 ml Dextrose (D50w (Vial) -) 50 ml IVPUSH Q15M PRN PRN Reason: BLOOD SUGAR < 60 Last Admin: 07/24/16 06:30 Dose: 50 ml Enoxaparin Sodium (Lovenox -) 40 mg SQ BID [facility] Last Admin: 07/31/16 09:15 Dose: 40 mg Norepinephrine Bitartrate 8, (000 mcg/ Dextrose) 500 mls @ 18.75 mls/hr IV TITR AVERY; 5 MCG/MIN PRN Reason: Protocol Last Titration: 07/29/16 19:00 Dose: 0 mcg/min Meropenem 1 gm/ Dextrose 100 mls @ 100 mls/hr IVPB Q8H-IV AVERY PRN Reason: Protocol Last Admin: 07/31/16 09:14 Dose: 100 mls/hr Clindamycin Phosphate (Cleocin 600 Mg Premix Ivpb -) 50 mls @ 100 mls/hr IVPB Q8H-IV AVERY Last Admin: 07/31/16 09:14 Dose: 100 mls/hr Fentanyl 500 mcg/ Dextrose 100 mls @ 10 mls/hr IJ TITR AVERY PRN Reason: 50 MCG/HR Last Admin: 07/31/16 08:46 Dose: 15 mls/hr Dopamine HCl/Dextrose (Dopamine 400 Mg/D5w -) 250 mls @ 12.664 mls/hr IVPB TITR AVERY; 5 MCG/KG/MIN PRN Reason: Protocol Last Admin: 07/30/16 19:13 Dose: 25.328 mls/hr Fluconazole (Diflucan 200 Mg/Ns Premixed Ivpb -) 100 mls @ 100 mls/hr IVPB DAILY AVERY Last Admin: 07/31/16 09:14 Dose: 100 mls/hr Insulin Aspart (Novolog Vial Sliding Scale -) 1 vial SQ ACHS AVERY PRN Reason: Protocol Last Admin: 07/31/16 11:16 Dose: Not Given Midazolam HCl (Versed -) 2 mg IVPUSH ONCE ONE Stop: 07/31/16 12:29 Midodrine (Proamatine -) 2.5 mg PO BID-MID [facility] Last Admin: 07/31/16 09:16 Dose: Not Given Ranitidine HCl (Zantac Oral Solution -) 150 mg PO DAILY AVERY Last Admin: 07/31/16 09:15 Dose: 150 mg Silver Sulfadiazine (Silvadene -) 1 applic TP DAILY AVERY Last Admin: 07/31/16 09:15 Dose: 1 applic A/P 65 year old woman with PMhx of hypertension, hypercholesterolemia, diabetes mellitus who presented with Abd pain and found to have perforated Abd viscus s/ p emergent Sx now with Septic Shock, ZAHIRA and Metabolic Acidosis. #Sepsis/Perforated Abd Viscus ICU monitoring Supportive Care MAP > 65, CVP > 10-12 Surgical follow up #Peripheral cyanosis titrate pressers as needed supportive care #Anemia Trend CBC Transfuse as per ICU protocol #Hypomagnesemia Mag Sulfate 2g IV x 1 Trend mg daily #Renal Failure Renal function now improved and stable #Metabolic acidosis No resolved Thank you Cyril Tubbs DO
[2016-07-31 12:38] LABS: PLATELET ESTIMATE ADEQUATE (NORMAL)
[2016-07-31] MEDS ORDERED: MIDAZOLAM HCL 2 MG/2 ML SINGLE DOSE VIAL IVPUSH ONE (12:45)
[2016-07-31] MEDS ORDERED: MIDODRINE HCL 2.5 MG TABLET PO SCH (13:10)
--- NOTE | 2016-07-31 13:13 | PN ---
Progress Note, Physician Chief Complaint: Remained at her base line , spiked fever, opens eye to verbal command History of Present Illness: 65-year-old F H/O hypertension, hypercholesterolemia, T2DM, ETOH abuse, was presented to ED with abd pain and wt loss underwent exploratory laprotomy for perforated duodenal ulcer on 07/21/16 developed hypotention and sepsis intubated on pressers. - Current Medication List Current Medications: Active Medications Acetaminophen (Ofirmev Injection -) 1,000 mg IVPB Q6H PRN PRN Reason: FEVER Last Admin: 07/30/16 09:35 Dose: 1,000 mg Albuterol/Ipratropium (Duoneb -) 1 amp NEB Q6H PRN PRN Reason: SHORTNESS OF BREATH Last Admin: 07/31/16 03:50 Dose: 1 amp Chlorhexidine Gluconate (Hibiclens For Decolonization -) 1 applic TP HS AVERY Last Admin: 07/30/16 21:14 Dose: 1 applic Chlorhexidine Gluconate (Peridex -) 15 ml MM BID AVERY Last Admin: 07/31/16 09:15 Dose: 15 ml Dextrose (D50w (Vial) -) 50 ml IVPUSH Q15M PRN PRN Reason: BLOOD SUGAR < 60 Last Admin: 07/24/16 06:30 Dose: 50 ml Enoxaparin Sodium (Lovenox -) 40 mg SQ BID AVERY Last Admin: 07/31/16 09:15 Dose: 40 mg Norepinephrine Bitartrate 8, (000 mcg/ Dextrose) 500 mls @ 18.75 mls/hr IV TITR AVERY; 5 MCG/MIN PRN Reason: Protocol Last Titration: 07/29/16 19:00 Dose: 0 mcg/min Meropenem 1 gm/ Dextrose 100 mls @ 100 mls/hr IVPB Q8H-IV AVERY PRN Reason: Protocol Last Admin: 07/31/16 09:14 Dose: 100 mls/hr Clindamycin Phosphate (Cleocin 600 Mg Premix Ivpb -) 50 mls @ 100 mls/hr IVPB Q8H-IV AVERY Last Admin: 07/31/16 09:14 Dose: 100 mls/hr Fentanyl 500 mcg/ Dextrose 100 mls @ 10 mls/hr IJ TITR AVERY PRN Reason: 50 MCG/HR Last Admin: 07/31/16 08:46 Dose: 15 mls/hr Dopamine HCl/Dextrose (Dopamine 400 Mg/D5w -) 250 mls @ 12.664 mls/hr IVPB TITR AVERY; 5 MCG/KG/MIN PRN Reason: Protocol Last Admin: 07/30/16 19:13 Dose: 25.328 mls/hr Fluconazole (Diflucan 200 Mg/Ns Premixed Ivpb -) 100 mls @ 100 mls/hr IVPB DAILY [facility] Last Admin: 07/31/16 09:14 Dose: 100 mls/hr Insulin Aspart (Novolog Vial Sliding Scale -) 1 vial SQ ACHS AVERY PRN Reason: Protocol Last Admin: 07/31/16 11:16 Dose: Not Given Midodrine (Proamatine -) 5 mg PO BID-MID AVERY Ranitidine HCl (Zantac Oral Solution -) 150 mg PO DAILY [facility] Last Admin: 07/31/16 09:15 Dose: 150 mg Silver Sulfadiazine (Silvadene -) 1 applic TP DAILY [facility] Last Admin: 07/31/16 09:15 Dose: 1 applic - Objective Vital Signs: Vital Signs Temperature 99.2 F 07/31/16 10:00 Pulse Rate 90 07/31/16 10:00 Respiratory Rate 16 07/31/16 12:24 Blood Pressure 88/46 07/31/16 10:00 O2 Sat by Pulse Oximetry (%) 100 07/31/16 12:25 P exam; Patient remained at base line, on Vent pressors and TPN HEENT: Mm most, ETT and NG Tube at place NECK: B/L Central line at place CHEST: Monmal basl crepts CVS; S1S2 R ABD: No distention, non tender fistula Rt UQ discharging exudates. EXT: all extremities distal gangrene, excoriation of skin and extremity edema. TELECOM ANALYST: Minimally responsive to verabl command , opens eye , no limb activity. Labs: CBC, BMP 07/31/16 05:40 07/31/16 05:40 INR, PTT INR 1.36 (0.82-1.09) H 07/29/16 05:30 Fibrinogen > 700.0 mg/dL (238-498) H 07/31/16 05:40 Problem List - Problems (1) Perforated abdominal viscus Code(s): IPS0655 - (2) Acute metabolic encephalopathy Code(s): G93.41 - METABOLIC ENCEPHALOPATHY (3) Metabolic acidosis Code(s): E87.2 - ACIDOSIS (4) ZAHIRA (acute kidney injury) Code(s): N17.9 - ACUTE KIDNEY FAILURE, UNSPECIFIED (5) Thrombocytopenia Code(s): D69.6 - THROMBOCYTOPENIA, UNSPECIFIED (6) Ischemia of extremity Code(s): I99.8 - OTHER DISORDER OF CIRCULATORY SYSTEM
--- NOTE | 2016-07-31 14:26 | PN ---
Teaching Attending Note Name of Resident: Trevin Terrazas ATTENDING PHYSICIAN STATEMENT I saw and evaluated the patient. I reviewed the resident's note and discussed the case with the resident. I agree with the resident's findings and plan as documented. SUBJECTIVE: I saw and evaluated the patient. I reviewed the resident's note and discussed the case with the resident. I agree with the resident's findings and plan as documented. SUBJECTIVE: Patient seen and examined in the ICU. Weaning attempts yesterday results in hypoxemia. Arousable and able to follow some simple commands. Mottling and gangrene of the 4 extremities appears about the same. CT : fistula formation / no intra-abdominal collection Intake & Output 07/28/16 07/29/16 07/30/16 07/31/16 23:59 23:59 23:59 23:59 Intake Total 1436 3162 2449.6 624 Output Total 750 1000 700 300 Balance 686 2162 1749.6 324 Weight 149 lb 8 oz 148 lb 14.4 oz 149 lb 4.047 oz 151 lb 3.794 oz Last Vital Signs Temp Pulse Resp BP Pulse Ox 99.2 F 104 H 16 103/50 100 07/31/16 10:00 07/31/16 12:00 07/31/16 12:24 07/31/16 12:00 07/31/16 12:25 Active Medications Acetaminophen (Ofirmev Injection -) 1,000 mg IVPB Q6H PRN PRN Reason: FEVER Last Admin: 07/30/16 09:35 Dose: 1,000 mg Albuterol/Ipratropium (Duoneb -) 1 amp NEB Q6H PRN PRN Reason: SHORTNESS OF BREATH Last Admin: 07/31/16 03:50 Dose: 1 amp Chlorhexidine Gluconate (Hibiclens For Decolonization -) 1 applic TP HS [facility] Last Admin: 07/30/16 21:14 Dose: 1 applic Chlorhexidine Gluconate (Peridex -) 15 ml MM BID [facility] Last Admin: 07/31/16 09:15 Dose: 15 ml Dextrose (D50w (Vial) -) 50 ml IVPUSH Q15M PRN PRN Reason: BLOOD SUGAR < 60 Last Admin: 07/24/16 06:30 Dose: 50 ml Enoxaparin Sodium (Lovenox -) 40 mg SQ BID [facility] Last Admin: 07/31/16 09:15 Dose: 40 mg Norepinephrine Bitartrate 8, (000 mcg/ Dextrose) 500 mls @ 18.75 mls/hr IV TITR [facility]; 5 MCG/MIN PRN Reason: Protocol Last Titration: 07/29/16 19:00 Dose: 0 mcg/min Meropenem 1 gm/ Dextrose 100 mls @ 100 mls/hr IVPB Q8H-IV [facility] PRN Reason: Protocol Last Admin: 07/31/16 09:14 Dose: 100 mls/hr Clindamycin Phosphate (Cleocin 600 Mg Premix Ivpb -) 50 mls @ 100 mls/hr IVPB Q8H-IV [facility] Last Admin: 07/31/16 09:14 Dose: 100 mls/hr Fentanyl 500 mcg/ Dextrose 100 mls @ 10 mls/hr IJ TITR [facility] PRN Reason: 50 MCG/HR Last Admin: 07/31/16 08:46 Dose: 15 mls/hr Dopamine HCl/Dextrose (Dopamine 400 Mg/D5w -) 250 mls @ 12.664 mls/hr IVPB TITR [facility]; 5 MCG/KG/MIN PRN Reason: Protocol Last Admin: 07/30/16 19:13 Dose: 25.328 mls/hr Fluconazole (Diflucan 200 Mg/Ns Premixed Ivpb -) 100 mls @ 100 mls/hr IVPB DAILY [facility] Last Admin: 07/31/16 09:14 Dose: 100 mls/hr Insulin Aspart (Novolog Vial Sliding Scale -) 1 vial SQ ACHS [facility] PRN Reason: Protocol Last Admin: 07/31/16 11:16 Dose: Not Given Midodrine (Proamatine -) 5 mg PO BID-MID [facility] Ranitidine HCl (Zantac Oral Solution -) 150 mg PO DAILY [facility] Last Admin: 07/31/16 09:15 Dose: 150 mg Silver Sulfadiazine (Silvadene -) 1 applic TP DAILY [facility] Last Admin: 07/31/16 09:15 Dose: 1 applic Gen: intubated, arousable Heart: RRR Lung: scattered rhonchi Abd: soft, dressings intact Ext: cold, hypoperfused, dusky Laboratory Results - last 24 hr 07/30/16 07/31/16 07/31/16 21:13 05:40 05:40 WBC 13.5 H RBC 2.69 L Hgb 7.8 L D Hct 23.7 L MCV 88.0 MCHC 32.8 RDW 14.9 Plt Count 339 MPV 9.4 Neutrophils % 86.0 H Lymphocytes % 8.0 Monocytes % 6.0 Differential Comment Manual diff done Platelet Estimate Adequate Fibrinogen > 700.0 H Puncture Site ABG pH ABG pCO2 at Pt Temp ABG pO2 at Pt Temp ABG HCO3 ABG O2 Sat (Measured) ABG O2 Content ABG Base Excess Heber Test O2 Delivery Device Oxygen Flow Rate Vent Mode Vent Rate Mechanical Rate PEEP Pressure Support Vent Sodium Potassium Chloride Carbon Dioxide Anion Gap BUN Creatinine Creat Clearance w eGFR POC Glucometer 181.87158 Random Glucose Calcium Phosphorus Magnesium Total Bilirubin AST ALT Alkaline Phosphatase Total Protein Albumin 07/31/16 07/31/16 07/31/16 05:40 06:18 07:15 WBC RBC Hgb Hct MCV MCHC RDW Plt Count MPV Neutrophils % Lymphocytes % Monocytes % Differential Comment Platelet Estimate Fibrinogen Puncture Site Left radial ABG pH 7.44 ABG pCO2 at Pt Temp 43.4 ABG pO2 at Pt Temp 80.0 D ABG HCO3 28.8 H ABG O2 Sat (Measured) 95.6 ABG O2 Content 14.6 L ABG Base Excess 4.6 H Heber Test Positive O2 Delivery Device Vent Oxygen Flow Rate 40% Vent Mode A/c Vent Rate 14 Mechanical Rate Yes PEEP 5.0 Pressure Support Vent 400 Sodium 144 Potassium 4.3 Chloride 105 Carbon Dioxide 29 Anion Gap 10 BUN 21 H D Creatinine 0.3 L D Creat Clearance w eGFR > 60 POC Glucometer 165.84432 Random Glucose 146 H Calcium 7.8 L Phosphorus 3.3 Magnesium 1.6 L Total Bilirubin 0.5 AST 35 D ALT 37 D Alkaline Phosphatase 85 Total Protein 4.3 L Albumin 0.9 L 07/31/16 10:29 WBC RBC Hgb Hct MCV MCHC RDW Plt Count MPV Neutrophils % Lymphocytes % Monocytes % Differential Comment Platelet Estimate Fibrinogen Puncture Site ABG pH ABG pCO2 at Pt Temp ABG pO2 at Pt Temp ABG HCO3 ABG O2 Sat (Measured) ABG O2 Content ABG Base Excess Heber Test O2 Delivery Device Oxygen Flow Rate Vent Mode Vent Rate Mechanical Rate PEEP Pressure Support Vent Sodium Potassium Chloride Carbon Dioxide Anion Gap BUN Creatinine Creat Clearance w eGFR POC Glucometer 185.96377 Random Glucose Calcium Phosphorus Magnesium Total Bilirubin AST ALT Alkaline Phosphatase Total Protein Albumin ASSESSMENT AND PLAN: Perforated Duodenal Ulcer Peritonitis s/p ex-lap/omental patch repair 07/16 Acute Respiratory Failure Septic Shock Acute Kidney Injury Lactic Acidosis Leukopenia/Thrombocytopenia likely from sepsis DM Encephalopathy -> etiology to be determined - ABX per ID - IVF - Minimize pressors use if feasible -> At this point her persistent hypotension warrants continued use of pressors -> Dopamine. - monitor urine output, creatinine - taper FiO2 to keep Spo2 >90% - transfuse platelets if <20K, cryo if fibrinogen <100 - DVT/GI prophylaxis - continue ICU monitoring - Not an ideal candidate for wean given overall condition and persistent shock - TPN to be started today - prognosis appears grave. Family has indicated that Crystal would not want to be maintained on chronic ventilatory support, which I suspect will be her best case scenario. Dr Dubon critical care time spent in reviewing chart, evaluating patient and formulating plan 40 min
[2016-07-31] MEDS: DOPAMINE 400 MG/D5W - 250 ML IVPB SCH (14:39)
[2016-07-31] MEDS ORDERED: [UNRECOGNIZED DRUG - OTHER] IVPB SCH (16:00)
[2016-07-31] MEDS ORDERED: POTASSIUM PHOSPHATE IVPB SCH (16:00)
[2016-07-31] MEDS ORDERED: POTASSIUM CHLORIDE IVPB SCH (16:00)
[2016-07-31] MEDS ORDERED: MAGNESIUM SULFATE IVPB SCH (16:00)
--- NOTE | 2016-07-31 16:22 | PN ---
Progress Note, Physician - Current Medication List Current Medications: Active Medications Acetaminophen (Ofirmev Injection -) 1,000 mg IVPB Q6H PRN PRN Reason: FEVER Last Admin: 07/30/16 09:35 Dose: 1,000 mg Albuterol/Ipratropium (Duoneb -) 1 amp NEB Q6H PRN PRN Reason: SHORTNESS OF BREATH Last Admin: 07/31/16 03:50 Dose: 1 amp Chlorhexidine Gluconate (Hibiclens For Decolonization -) 1 applic TP HS [facility] Last Admin: 07/30/16 21:14 Dose: 1 applic Chlorhexidine Gluconate (Peridex -) 15 ml MM BID [facility] Last Admin: 07/31/16 09:15 Dose: 15 ml Dextrose (D50w (Vial) -) 50 ml IVPUSH Q15M PRN PRN Reason: BLOOD SUGAR < 60 Last Admin: 07/24/16 06:30 Dose: 50 ml Enoxaparin Sodium (Lovenox -) 40 mg SQ BID [facility] Last Admin: 07/31/16 09:15 Dose: 40 mg Norepinephrine Bitartrate 8, (000 mcg/ Dextrose) 500 mls @ 18.75 mls/hr IV TITR [facility]; 5 MCG/MIN PRN Reason: Protocol Last Titration: 07/29/16 19:00 Dose: 0 mcg/min Meropenem 1 gm/ Dextrose 100 mls @ 100 mls/hr IVPB Q8H-IV [facility] PRN Reason: Protocol Last Admin: 07/31/16 09:14 Dose: 100 mls/hr Clindamycin Phosphate (Cleocin 600 Mg Premix Ivpb -) 50 mls @ 100 mls/hr IVPB Q8H-IV [facility] Last Admin: 07/31/16 09:14 Dose: 100 mls/hr Fentanyl 500 mcg/ Dextrose 100 mls @ 10 mls/hr IJ TITR [facility] PRN Reason: 50 MCG/HR Last Admin: 07/31/16 14:38 Dose: 15 mls/hr Dopamine HCl/Dextrose (Dopamine 400 Mg/D5w -) 250 mls @ 12.664 mls/hr IVPB TITR [facility]; 5 MCG/KG/MIN PRN Reason: Protocol Last Admin: 07/31/16 14:39 Dose: 25.328 mls/hr Fluconazole (Diflucan 200 Mg/Ns Premixed Ivpb -) 100 mls @ 100 mls/hr IVPB DAILY [facility] Last Admin: 07/31/16 09:14 Dose: 100 mls/hr Potassium Chloride 40 meq/Potassium Phosphate 15 mm/Magnesium Sulfate 1.47 gm/ Thiamine HCl 100 mg/Multivitamins/Minerals 10 ml/Sterile Water/ Amino Acids/ Dextrose 1,000 mls @ 41.667 mls/hr IVPB DAILY@1600 [facility] Fat Emulsion Intravenous (Intralipid -) 250 mls @ 20.833 mls/hr IV DAILY@2200 [facility] Famotidine/Sodium Chloride (Pepcid 20 Mg Premixed Ivpb -) 50 mls @ 100 mls/hr IVPB BID [facility] Insulin Aspart (Novolog Vial Sliding Scale -) 1 vial SQ ACHS [facility] PRN Reason: Protocol Last Admin: 07/31/16 11:16 Dose: Not Given Silver Sulfadiazine (Silvadene -) 1 applic TP DAILY [facility] Last Admin: 07/31/16 09:15 Dose: 1 applic - Objective Vital Signs: Vital Signs Temperature 97.8 F 07/31/16 14:00 Pulse Rate 93 H 07/31/16 14:39 Respiratory Rate 16 07/31/16 15:16 Blood Pressure 66/38 07/31/16 14:39 O2 Sat by Pulse Oximetry (%) 100 07/31/16 12:25 Labs: CBC, BMP 07/31/16 05:40 07/31/16 05:40 INR, PTT INR 1.36 (0.82-1.09) H 07/29/16 05:30 Fibrinogen > 700.0 mg/dL (238-498) H 07/31/16 05:40 Problem List - Problems (1) Abdominal pain Code(s): R10.9 - UNSPECIFIED ABDOMINAL PAIN Qualifiers: Abdominal location: periumbilical Qualified Code(s): R10.33 - Periumbilical pain (2) Perforated abdominal viscus Code(s): [id number] - (3) Perforated viscus Code(s): R19.8 - OTH SYMPTOMS AND SIGNS INVOLVING THE DGSTV SYS AND ABDOMEN (4) Hypertension Code(s): I10 - ESSENTIAL (PRIMARY) HYPERTENSION Qualifiers: Hypertension type: essential hypertension Qualified Code(s): I10 - Essential (primary) hypertension Assessment/Plan Surgery: 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 There is no evidence of any subhepatic collection . 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 Will keep NPO, hyperalimentation. Consider tracheostomy, I have informed the patient's about the benefits of tracheostomy and risks associated with it. She remains critical , with guarded prognosis.
[2016-07-31] MEDS ORDERED: PHENYLEPHRINE HCL 20,000 MCG in SODIUM CHLORIDE 248 ML IVPB SCH ×2 (18:15→18:19)
[2016-07-31] MEDS ORDERED: PHENYLEPHRINE HCL 10 MG/1 ML SINGLE DOSE VIAL ONE (18:42)
--- NOTE | 2016-07-31 20:21 | PN ---
Progress Note, Physician History of Present Illness: drainage tube removed lot of purulent material i think now there is fistula continues to be critical patient restarted on low dose of dopamine for blood pressure as patient again has become hypotensive - Current Medication List Current Medications: Active Medications Acetaminophen (Ofirmev Injection -) 1,000 mg IVPB Q6H PRN PRN Reason: FEVER Last Admin: 07/30/16 09:35 Dose: 1,000 mg Albuterol/Ipratropium (Duoneb -) 1 amp NEB Q6H PRN PRN Reason: SHORTNESS OF BREATH Last Admin: 07/31/16 03:50 Dose: 1 amp Chlorhexidine Gluconate (Hibiclens For Decolonization -) 1 applic TP HS [facility] Last Admin: 07/30/16 21:14 Dose: 1 applic Chlorhexidine Gluconate (Peridex -) 15 ml MM BID [facility] Last Admin: 07/31/16 09:15 Dose: 15 ml Dextrose (D50w (Vial) -) 50 ml IVPUSH Q15M PRN PRN Reason: BLOOD SUGAR < 60 Last Admin: 07/24/16 06:30 Dose: 50 ml Enoxaparin Sodium (Lovenox -) 40 mg SQ BID [facility] Last Admin: 07/31/16 09:15 Dose: 40 mg Norepinephrine Bitartrate 8, (000 mcg/ Dextrose) 500 mls @ 18.75 mls/hr IV TITR [facility]; 5 MCG/MIN PRN Reason: Protocol Last Titration: 07/29/16 19:00 Dose: 0 mcg/min Meropenem 1 gm/ Dextrose 100 mls @ 100 mls/hr IVPB Q8H-IV [facility] PRN Reason: Protocol Last Admin: 07/31/16 09:14 Dose: 100 mls/hr Clindamycin Phosphate (Cleocin 600 Mg Premix Ivpb -) 50 mls @ 100 mls/hr IVPB Q8H-IV [facility] Last Admin: 07/31/16 17:47 Dose: 100 mls/hr Fentanyl 500 mcg/ Dextrose 100 mls @ 10 mls/hr IJ TITR [facility] PRN Reason: 50 MCG/HR Last Admin: 07/31/16 18:23 Dose: 15 mls/hr Dopamine HCl/Dextrose (Dopamine 400 Mg/D5w -) 250 mls @ 12.664 mls/hr IVPB TITR [facility]; 5 MCG/KG/MIN PRN Reason: Protocol Last Admin: 07/31/16 14:39 Dose: 25.328 mls/hr Fluconazole (Diflucan 200 Mg/Ns Premixed Ivpb -) 100 mls @ 100 mls/hr IVPB DAILY [facility] Last Admin: 07/31/16 09:14 Dose: 100 mls/hr Potassium Chloride 40 meq/Potassium Phosphate 15 mm/Magnesium Sulfate 1.47 gm/ Thiamine HCl 100 mg/Multivitamins/Minerals 10 ml/Sterile Water/ Amino Acids/ Dextrose 1,000 mls @ 41.667 mls/hr IVPB DAILY@1600 [facility] Last Admin: 07/31/16 17:00 Dose: 41.667 mls/hr Fat Emulsion Intravenous (Intralipid -) 250 mls @ 20.833 mls/hr IV DAILY@2200 [facility] Famotidine/Sodium Chloride (Pepcid 20 Mg Premixed Ivpb -) 50 mls @ 100 mls/hr IVPB BID [facility] Phenylephrine HCl 20,000 mcg/ (Sodium Chloride) 250 mls @ 75 mls/hr IVPB ASDIR [facility]; 100 MCG/MIN PRN Reason: Protocol Insulin Aspart (Novolog Vial Sliding Scale -) 1 vial SQ ACHS [facility] PRN Reason: Protocol Last Admin: 07/31/16 17:47 Dose: 2 unit Silver Sulfadiazine (Silvadene -) 1 applic TP DAILY [facility] Last Admin: 07/31/16 09:15 Dose: 1 applic - Objective Vital Signs: Vital Signs Temperature 100.1 F H 07/31/16 20:00 Pulse Rate 84 07/31/16 18:00 Respiratory Rate 14 07/31/16 20:00 Blood Pressure 112/51 07/31/16 20:00 O2 Sat by Pulse Oximetry (%) 100 07/31/16 19:59 Constitutional: Yes: Other Cardiovascular: Yes: Regular Rate and Rhythm, Other (low bp) Gastrointestinal: Yes: Other (draiange from the fistula site) Musculoskeletal: Yes: Other Extremities: Yes: Other Edema: LUE: 2+, RUE: 2+, LLE: 2+, RLE: 2+ Wound/Incision: Yes: Other Neurological: Yes: Alert, Other Psychiatric: Yes: Alert, Other Labs: CBC, BMP 07/31/16 05:40 07/31/16 05:40 INR, PTT INR 1.36 (0.82-1.09) H 07/29/16 05:30 Fibrinogen > 700.0 mg/dL (238-498) H 07/31/16 05:40 - ....Imaging Chest X-ray: Report Reviewed, Image Reviewed Assessment/Plan Problem List - Problems (1) Abdominal pain Code(s): R10.9 - UNSPECIFIED ABDOMINAL PAIN Qualifiers: Qualified Code(s): R10.33 - Periumbilical pain (2) Perforated abdominal viscus Code(s): [id number] - (3) Perforated viscus Code(s): R19.8 - OTH SYMPTOMS AND SIGNS INVOLVING THE DGSTV SYS AND ABDOMEN (4) Hypertension Code(s): I10 - ESSENTIAL (PRIMARY) HYPERTENSION Qualifiers: Qualified Code(s): I10 - Essential (primary) hypertension lactic acidosis fevers heam note noted generalized swelling plan continue current mgmt nutrition awake draiange tube removed continue to monitor surgery to continue following plan is to do trach on the patient bp still very labile cc time 40 min
--- NOTE | 2016-07-31 20:24 | PN ---
Progress Note, Physician History of Present Illness: continues to have low bp now phenylepinephrine added considering trach tomorrow - Current Medication List Current Medications: Active Medications Acetaminophen (Ofirmev Injection -) 1,000 mg IVPB Q6H PRN PRN Reason: FEVER Last Admin: 07/30/16 09:35 Dose: 1,000 mg Albuterol/Ipratropium (Duoneb -) 1 amp NEB Q6H PRN PRN Reason: SHORTNESS OF BREATH Last Admin: 07/31/16 03:50 Dose: 1 amp Chlorhexidine Gluconate (Hibiclens For Decolonization -) 1 applic TP HS [facility] Last Admin: 07/30/16 21:14 Dose: 1 applic Chlorhexidine Gluconate (Peridex -) 15 ml MM BID [facility] Last Admin: 07/31/16 09:15 Dose: 15 ml Dextrose (D50w (Vial) -) 50 ml IVPUSH Q15M PRN PRN Reason: BLOOD SUGAR < 60 Last Admin: 07/24/16 06:30 Dose: 50 ml Enoxaparin Sodium (Lovenox -) 40 mg SQ BID [facility] Last Admin: 07/31/16 09:15 Dose: 40 mg Norepinephrine Bitartrate 8, (000 mcg/ Dextrose) 500 mls @ 18.75 mls/hr IV TITR [facility]; 5 MCG/MIN PRN Reason: Protocol Last Titration: 07/29/16 19:00 Dose: 0 mcg/min Meropenem 1 gm/ Dextrose 100 mls @ 100 mls/hr IVPB Q8H-IV [facility] PRN Reason: Protocol Last Admin: 07/31/16 09:14 Dose: 100 mls/hr Clindamycin Phosphate (Cleocin 600 Mg Premix Ivpb -) 50 mls @ 100 mls/hr IVPB Q8H-IV [facility] Last Admin: 07/31/16 17:47 Dose: 100 mls/hr Fentanyl 500 mcg/ Dextrose 100 mls @ 10 mls/hr IJ TITR [facility] PRN Reason: 50 MCG/HR Last Admin: 07/31/16 18:23 Dose: 15 mls/hr Dopamine HCl/Dextrose (Dopamine 400 Mg/D5w -) 250 mls @ 12.664 mls/hr IVPB TITR [facility]; 5 MCG/KG/MIN PRN Reason: Protocol Last Admin: 07/31/16 14:39 Dose: 25.328 mls/hr Fluconazole (Diflucan 200 Mg/Ns Premixed Ivpb -) 100 mls @ 100 mls/hr IVPB DAILY [facility] Last Admin: 07/31/16 09:14 Dose: 100 mls/hr Potassium Chloride 40 meq/Potassium Phosphate 15 mm/Magnesium Sulfate 1.47 gm/ Thiamine HCl 100 mg/Multivitamins/Minerals 10 ml/Sterile Water/ Amino Acids/ Dextrose 1,000 mls @ 41.667 mls/hr IVPB DAILY@1600 [facility] Last Admin: 07/31/16 17:00 Dose: 41.667 mls/hr Fat Emulsion Intravenous (Intralipid -) 250 mls @ 20.833 mls/hr IV DAILY@2200 [facility] Famotidine/Sodium Chloride (Pepcid 20 Mg Premixed Ivpb -) 50 mls @ 100 mls/hr IVPB BID [facility] Phenylephrine HCl 20,000 mcg/ (Sodium Chloride) 250 mls @ 75 mls/hr IVPB ASDIR [facility]; 100 MCG/MIN PRN Reason: Protocol Insulin Aspart (Novolog Vial Sliding Scale -) 1 vial SQ ACHS [facility] PRN Reason: Protocol Last Admin: 07/31/16 17:47 Dose: 2 unit Silver Sulfadiazine (Silvadene -) 1 applic TP DAILY [facility] Last Admin: 07/31/16 09:15 Dose: 1 applic - Objective Vital Signs: Vital Signs Temperature 100.1 F H 07/31/16 20:00 Pulse Rate 84 07/31/16 18:00 Respiratory Rate 14 07/31/16 20:00 Blood Pressure 112/51 07/31/16 20:00 O2 Sat by Pulse Oximetry (%) 100 07/31/16 19:59 Constitutional: Yes: Other Cardiovascular: Yes: Regular Rate and Rhythm Respiratory: Yes: Intubated, Mechanically Ventilated Gastrointestinal: Yes: Hypoactive Bowel Sounds, Other Musculoskeletal: Yes: Other Extremities: Yes: Other Wound/Incision: Yes: Other Neurological: Yes: Alert, Other Labs: CBC, BMP 07/31/16 05:40 07/31/16 05:40 INR, PTT INR 1.36 (0.82-1.09) H 07/29/16 05:30 Fibrinogen > 700.0 mg/dL (238-498) H 07/31/16 05:40 Assessment/Plan Problem List - Problems (1) Abdominal pain Code(s): R10.9 - UNSPECIFIED ABDOMINAL PAIN Qualifiers: Qualified Code(s): R10.33 - Periumbilical pain (2) Perforated abdominal viscus Code(s): [id number] - (3) Perforated viscus Code(s): R19.8 - OTH SYMPTOMS AND SIGNS INVOLVING THE DGSTV SYS AND ABDOMEN (4) Hypertension Code(s): I10 - ESSENTIAL (PRIMARY) HYPERTENSION Qualifiers: Qualified Code(s): I10 - Essential (primary) hypertension lactic acidosis fevers heam note noted generalized swelling plan contiues to be critical blood pressure very fluid on 2 pressors still not able to maintain the pressure plan is for trach continue current mgmt will see how patient is going to progress cc time 40 min
[2016-07-31] MEDS ORDERED: PT OWN MED DRAWER 7, Y5N ONE (21:13)
[2016-07-31] MEDS: CHLORHEXIDINE GLUCONATE 4% CLEANSER FOR DECOLONIZATION TP SCH (21:23)
[2016-07-31] MEDS: FAMOTIDINE 20 MG/50 ML IVPB 50 ML IVPB SCH (21:23)
[2016-07-31] MEDS: FAT EMULSIONS 250 ML IV SCH (21:55)
[2016-08-01] MEDS: FENTANYL INJECTION 500 MCG in DEXTROSE 5%-WATER - 90 ML IJ SCH ×5 (00:26→21:57)
[2016-08-01] MEDS: DOPAMINE 400 MG/D5W - 250 ML IVPB SCH ×3 (00:27→21:56)
[2016-08-01] MEDS: CLINDAMYCIN 600MG PREMIX IVPB 50 ML IVPB SCH ×3 (02:34→17:53)
[2016-08-01] MEDS: MEROPENEM 1 GM in DEXTROSE 5%-WATER - 100 ML IVPB SCH ×3 (02:36→17:39)
[2016-08-01] MEDS: INSULIN SLIDING SCALE (NOVOLOG) 1 VIAL SQ SCH ×4 (06:25→22:30)
[2016-08-01 07:36] LABS: ARTERIAL BLD GAS O2 SATURATION 97.4 % (90-98.9); ARTERIAL BLOOD GAS BASE EXCESS 1.2 meq/l (-2-2); ARTERIAL BLOOD GAS HCO3 25.3 meq/L (22-26); ARTERIAL BLOOD GAS pH 7.42 (7.35-7.45)
[2016-08-01 07:37] LABS: ALLENS TEST POSITIVE; ART PUNCT SITE LEFT RADIAL; LPM/O2% 40; MECH. VENT. YES; PT. ON O2? YES; TYPE OF O2 VENT; VENT RATE 14; VT/PRESS 400
[2016-08-01] MEDS ORDERED: PT OWN MED DRAWER 7, Y5N ONE ×2 (08:52→19:54)
--- NOTE | 2016-08-01 09:07 | PN ---
Physical Exam: SUBJECTIVE: Patient seen and examined given NS IVF boluses for MAP <55 yesterday with improvement. today she is less arousable than yesterday, attempted to mouth words. trach stap moved to lower lip, has more thick [id number] oral secretions. opens eyes to verbal stimuli and touch. spontanously moves left and right arm L> R. OBJECTIVE: Vital Signs Period Temp Pulse Resp BP Sys/Major Pulse Ox Last 24 Hr 97.8 F-100.1 F 83-104 11-20 66-112/38-52 95-100 HEAD: Bitemporal wasting EYES: constricted pupils, sluggish perrla, sclera anicteric. ENT: NGT in place, oropharynx with ET in place. viscous oral secretions. NECK: Trachea midline. LUNGS: diffuse rhonchi and crackles, anterior bilaterally, no wheezes, quiet at bases. HEART: regular rate/rhythm, S1, S2 without murmur, rub or gallop. ABDOMEN: colos .hitesh placed over sump pump tube insertion site. surrounding erythema, soft abdomen. no discharge from midline inscion, incision is healing, open ulcers throughout abdomen with scant serous discharge, covered in xeroform EXTREMITIES: absent pulses in DP/radial b/l, acrocyanosis extending from fingernails to mid-forearm, grangrene at fingertips to 1st joint, dry. cold extremities acrocyanosis in toes, marked in 4th and 5th digits b/l with skin mottling upto ankles. 1+ edema b/l legs from feet to thigh L>R. scant fluid filled vesicles at medial ankles b/l. SKIN: multiple open ulcers (abdomen, inner thighs, neck and arms), erythema on anterior left and right thigh. NEUROLOGICAL: opens eyes, spontaneously moves right forearm and left condon, makes eye contact with tracking to her right. grimaces when feet and abdomen are touched, retracts to painful stimuli Laboratory Results - last 24 hr 07/31/16 07/31/16 07/31/16 05:40 05:40 10:29 Neutrophils % 86.0 H Lymphocytes % 8.0 Monocytes % 6.0 Differential Comment Manual diff done Platelet Estimate Adequate Fibrinogen > 700.0 H Puncture Site ABG pH ABG pCO2 at Pt Temp ABG pO2 at Pt Temp ABG HCO3 ABG O2 Sat (Measured) ABG O2 Content ABG Base Excess Ehber Test O2 Delivery Device Oxygen Flow Rate Vent Mode Vent Rate Mechanical Rate PEEP Pressure Support Vent POC Glucometer [id number] 07/31/16 07/31/16 08/01/16 17:16 22:05 07:15 Neutrophils % Lymphocytes % Monocytes % Differential Comment Platelet Estimate Fibrinogen Puncture Site Left radial ABG pH 7.42 ABG pCO2 at Pt Temp 40.3 ABG pO2 at Pt Temp 91.0 ABG HCO3 25.3 ABG O2 Sat (Measured) 97.4 ABG O2 Content 10.6 L ABG Base Excess 1.2 Heber Test Positive O2 Delivery Device Vent Oxygen Flow Rate 40 Vent Mode A/c Vent Rate 14 Mechanical Rate Yes PEEP 5.0 Pressure Support Vent 400 POC Glucometer 188.32543 190.37531 Active Medications Generic Name Dose Route Start Last Admin Trade Name Freq PRN Reason Stop Dose Admin Acetaminophen 1,000 mg 07/19/16 15:43 07/30/16 09:35 Ofirmev Injection - IVPB 1,000 mg Q6H PRN Administration FEVER Albuterol/Ipratropium 1 amp 07/24/16 06:00 07/31/16 03:50 Duoneb - NEB 1 amp Q6H PRN Administration SHORTNESS OF BREATH Chlorhexidine Gluconate 1 applic 07/16/16 22:00 07/31/16 21:23 Hibiclens For Decolonization - TP 1 applic HS AVERY Administration Chlorhexidine Gluconate 15 ml 07/21/16 10:00 07/31/16 21:22 Peridex - MM 15 ml BID AVERY Administration Dextrose 50 ml 07/24/16 07:18 07/24/16 06:30 D50w (Vial) - IVPUSH 50 ml Q15M PRN Administration BLOOD SUGAR < 60 Enoxaparin Sodium 40 mg 07/27/16 22:00 07/31/16 21:23 Lovenox - SQ 40 mg BID AVERY Administration Norepinephrine Bitartrate 8, 500 mls @ 18.75 mls/hr 07/16/16 23:15 07/29/16 19: 00 000 mcg/ Dextrose IV 0 mcg/min TITR AVERY Titration Protocol 5 MCG/MIN Meropenem 1 gm/ Dextrose 100 mls @ 100 mls/hr 07/19/16 18:00 08/01/16 02:36 IVPB 100 mls/hr Q8H-IV AVERY Administration Protocol Clindamycin Phosphate 50 mls @ 100 mls/hr 07/22/16 14:15 08/01/16 02:34 Cleocin 600 Mg Premix Ivpb - IVPB 100 mls/hr Q8H-IV AVERY Administration Fentanyl 500 mcg/ Dextrose 100 mls @ 10 mls/hr 07/28/16 12:00 08/01/16 06:24 IJ 20 mls/hr TITR AVERY Administration 50 MCG/HR Dopamine HCl/Dextrose 250 mls @ 12.664 mls/hr 07/29/16 12:15 08/01/16 00:27 Dopamine 400 Mg/D5w - IVPB 25.328 mls/hr TITR AVERY Administration Protocol 5 MCG/KG/MIN Fluconazole 100 mls @ 100 mls/hr 07/30/16 10:00 07/31/16 09:14 Diflucan 200 Mg/Ns Premixed Ivpb - IVPB 100 mls/hr DAILY AVERY Administration Potassium Chloride 40 meq/ 1,000 mls @ 41.667 mls/hr 07/31/16 16:00 07/31/16 17 :00 Potassium Phosphate 15 mm/ IVPB 41.667 mls/hr Magnesium Sulfate 1.47 gm/ DAILY@1600 AVERY Administration Thiamine HCl 100 mg/ Multivitamins/Minerals 10 ml/ Sterile Water/ Amino Acids/ Dextrose Fat Emulsion Intravenous 250 mls @ 20.833 mls/hr 07/31/16 22:00 07/31/16 21:55 Intralipid - IV 20.833 mls/hr DAILY@2200 AVERY Administration Famotidine/Sodium Chloride 50 mls @ 100 mls/hr 07/31/16 22:00 07/31/16 21:23 Pepcid 20 Mg Premixed Ivpb - IVPB 100 mls/hr BID AVERY Administration Phenylephrine HCl 20,000 mcg/ 250 mls @ 75 mls/hr 07/31/16 18:19 07/31/16 21:23 Sodium Chloride IVPB Not Given ASDIR AVERY Protocol 100 MCG/MIN Insulin Aspart 1 vial 07/17/16 16:30 08/01/16 06:25 Novolog Vial Sliding Scale - SQ 4 unit ACHS AVERY Administration Protocol Silver Sulfadiazine 1 applic 07/24/16 10:00 07/31/16 09:15 Silvadene - TP 1 applic DAILY AVERY Administration Intake & Output 07/29/16 07/30/16 07/31/16 08/01/16 23:59 23:59 23:59 23:59 Intake Total 3162 2449.6 02864 1438 Output Total 1000 700 900 450 Balance 2162 1749.6 33983 988 Weight 148 lb 14.4 oz 149 lb 4.047 oz 151 lb 3.794 oz 158 lb 8.198 oz ASSESSMENT/PLAN: 65 yr old woman with HTN, dementia, NIDDM II admitted to ICU with septic shock secondary to perforated duodenal ulcer and peritonitis, 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 - pain control with fentanyl and morphine Cardivascular Hypotensive - requiring pressors, placed on dopamine (avoid levophed as it could lead to worsening of the acrocyanosis, consider titrating dopamine up and/ or intiating phenylephrine for additional pressure support) - urine output: 900cc/24hr - maintain goal MAP>65, current MAP 72 - limit fluids, as currently edematous, MAP at goal, expect her to be able to manage fluid balance - monitor urine output - right IJ central line placed today 07/31 Pulmonary endotracheal tube placed 07/16 fio2 40%, sat 100%, RR 14 titrate to maintain spo2 >90% - pt RR 20 - patient is not able to tolerate weaning trials. - not a candidate for weaning - trach placement today with Dr. Louise, if possible, consent obtained from , placed in chart Gastrointestinal; s/p repair perforated duodenal ulcer 07/16, - Meropenem IV 1gm q8hr - day 13 - Cleocin - 600gm q8h - day 10 - Diflucan 200mg IVPB daily, discussed with Dr. Burgess, continue for now - Day 16 - pepcid ivpb 20g daily - enterocutaenous fistula with colostomy bag -- stop tube feeds, bowel rest and monitor output - placed on TPN (day 2) Renal - - Bacon placed in ED pre-op 07/16 - consult: Dr. Tubbs Infectious Disease - consulted - meropenem + cleocin + diflucan - tylenol IVPB 1gm q6hr for fevers + ice packs at axilla, neck, groin. avoid cooling blanket on extremities and on feet. -- fevers possible from multiple sources including gangrene and fistula Endocrine NIDDM II - D5 Iv push 1 amp when BGM <60 - BGM q6hrs w/ goal 140-180, NISS. - insulin to be added to TPN. Hematologic - cephalic vein SVT and right IJ clot, likley iatrogenic from central line placement - txment with lovenox BID 40sq daily - thrombocytopenia likely due to sepsis, r/o DIC - daily fibrinogen levels/coags , if fibrinogen level <100 consider cryoppt - goal to maintain plts>20,000 - trend H/H, transfuse of hgb <7.0, - consult Dr. Church Neurologic AMS secondary to prolonged sedative effect or hypoperfusion causing anoxic brain injury Dr. Allen consulted for further neurological evaluation; rec MRI, however not transportable on vent, continue medical management. lethargic today. Dementia Diet: TPN DVT- lovenox BID Visit type - Emergency Visit Emergency Visit: No - New Patient This patient is new to me today: No - Critical Care Critical Care patient: Yes Total Critical Care Time (in minutes): 37 Critical Care Statement: The care of this patient involved high complexity decision making to prevent further life threatening deterioration of the patient 's condition and/or to evalute & treat vital organ system(s) failure or risk of failure.
[2016-08-01] MEDS: FAMOTIDINE 20 MG/50 ML IVPB 50 ML IVPB SCH ×2 (09:12→21:32)
[2016-08-01] MEDS: CHLORHEXIDINE GLUCONATE 0.12% 15ML CUP MM SCH ×2 (09:13→21:32)
[2016-08-01] MEDS: SILVER SULFADIAZINE 1% TOP CREAM 50 GM JAR TP SCH ×2 (09:13→09:14)
[2016-08-01] MEDS: ENOXAPARIN NA (PORCINE) 40 MG/0.4 ML DISP.SYRIN SQ SCH ×2 (09:13→21:32)
[2016-08-01] MEDS: FLUCONAZOLE 200 MG/NS 100 ML IVPB SCH (09:13)
[2016-08-01 10:34] LABS: MCH 29.4 pg (25.7-33.7); MCHC 32.9 g/dl (32.0-36.0); MEAN CELL VOLUME 89.2 fl (80-96); MEAN PLT VOLUME 8.7 fl (7.5-11.1); PLATELET COUNT 340 K/MM3 (134-434); RDW 14.7 % (11.6-15.6); WHITE BLOOD COUNT 12.5 K/mm3 (4.0-10.0)
[2016-08-01 10:40] LABS: ANION GAP 8 (8-16); BILIRUBIN,TOTAL 0.3 mg/dL (0.2-1.0); CALCIUM 7.2 mg/dL (8.5-10.1); CO2 26 mmol/L (21-32); CREATININE 0.4 mg/dL (0.55-1.02); GLUCOSE,RANDOM 179 mg/dL (74-106); SGOT/AST 34 U/L (15-37); SGPT/ALT 31 U/L (12-78); TOT PROT 4.2 g/dl (6.4-8.2)
[2016-08-01 10:41] LABS: ALK PHOS 82 U/L (45-117)
[2016-08-01 10:48] LABS: ALBUMIN 0.9 g/dl (3.4-5.0)
--- NOTE | 2016-08-01 11:16 | PN ---
Progress Note, Physician Chief Complaint: Remained at her base line , spiked fever, opens eye to verbal command, yesterday hypotensive so 2nd pressor added. History of Present Illness: 65-year-old F H/O hypertension, hypercholesterolemia, T2DM, ETOH abuse, was presented to ED with abd pain and wt loss underwent exploratory laprotomy for perforated duodenal ulcer on 07/21/16 developed hypotention and sepsis intubated on pressers. - Current Medication List Current Medications: Active Medications Acetaminophen (Ofirmev Injection -) 1,000 mg IVPB Q6H PRN PRN Reason: FEVER Last Admin: 07/30/16 09:35 Dose: 1,000 mg Albuterol/Ipratropium (Duoneb -) 1 amp NEB Q6H PRN PRN Reason: SHORTNESS OF BREATH Last Admin: 07/31/16 03:50 Dose: 1 amp Chlorhexidine Gluconate (Hibiclens For Decolonization -) 1 applic TP HS AVERY Last Admin: 07/31/16 21:23 Dose: 1 applic Chlorhexidine Gluconate (Peridex -) 15 ml MM BID AVERY Last Admin: 08/01/16 09:13 Dose: 15 ml Dextrose (D50w (Vial) -) 50 ml IVPUSH Q15M PRN PRN Reason: BLOOD SUGAR < 60 Last Admin: 07/24/16 06:30 Dose: 50 ml Enoxaparin Sodium (Lovenox -) 40 mg SQ BID AVERY Last Admin: 08/01/16 09:13 Dose: 40 mg Norepinephrine Bitartrate 8, (000 mcg/ Dextrose) 500 mls @ 18.75 mls/hr IV TITR AVERY; 5 MCG/MIN PRN Reason: Protocol Last Titration: 07/29/16 19:00 Dose: 0 mcg/min Meropenem 1 gm/ Dextrose 100 mls @ 100 mls/hr IVPB Q8H-IV AVERY PRN Reason: Protocol Last Admin: 08/01/16 09:11 Dose: 100 mls/hr Clindamycin Phosphate (Cleocin 600 Mg Premix Ivpb -) 50 mls @ 100 mls/hr IVPB Q8H-IV AVERY Last Admin: 08/01/16 09:12 Dose: 100 mls/hr Fentanyl 500 mcg/ Dextrose 100 mls @ 10 mls/hr IJ TITR AVERY PRN Reason: 50 MCG/HR Last Admin: 08/01/16 06:24 Dose: 20 mls/hr Dopamine HCl/Dextrose (Dopamine 400 Mg/D5w -) 250 mls @ 12.664 mls/hr IVPB TITR AVERY; 5 MCG/KG/MIN PRN Reason: Protocol Last Admin: 08/01/16 00:27 Dose: 25.328 mls/hr Fluconazole (Diflucan 200 Mg/Ns Premixed Ivpb -) 100 mls @ 100 mls/hr IVPB DAILY [facility] Last Admin: 08/01/16 09:13 Dose: 100 mls/hr Potassium Chloride 40 meq/Potassium Phosphate 15 mm/Magnesium Sulfate 1.47 gm/ Thiamine HCl 100 mg/Multivitamins/Minerals 10 ml/Sterile Water/ Amino Acids/ Dextrose 1,000 mls @ 41.667 mls/hr IVPB DAILY@1600 [facility] Last Admin: 07/31/16 17:00 Dose: 41.667 mls/hr Fat Emulsion Intravenous (Intralipid -) 250 mls @ 20.833 mls/hr IV DAILY@2200 [facility] Last Admin: 07/31/16 21:55 Dose: 20.833 mls/hr Famotidine/Sodium Chloride (Pepcid 20 Mg Premixed Ivpb -) 50 mls @ 100 mls/hr IVPB BID [facility] Last Admin: 08/01/16 09:12 Dose: 100 mls/hr Phenylephrine HCl 20,000 mcg/ (Sodium Chloride) 250 mls @ 75 mls/hr IVPB ASDIR AVERY; 100 MCG/MIN PRN Reason: Protocol Last Admin: 07/31/16 21:23 Dose: Not Given Insulin Aspart (Novolog Vial Sliding Scale -) 1 vial SQ ACHS AVERY PRN Reason: Protocol Last Admin: 08/01/16 06:25 Dose: 4 unit Silver Sulfadiazine (Silvadene -) 1 applic TP DAILY [facility] Last Admin: 08/01/16 09:14 Dose: 1 applic - Objective Vital Signs: Vital Signs Temperature 100.5 F H 08/01/16 09:55 Pulse Rate 90 08/01/16 10:36 Respiratory Rate 18 08/01/16 10:08 Blood Pressure 108/46 08/01/16 10:08 O2 Sat by Pulse Oximetry (%) 96 08/01/16 10:36 Constitutional: Yes: Other (Intubated following verbal command) Eyes: Yes: WNL, Conjunctiva Clear, EOM Intact HENT: Yes: WNL, Atraumatic, Normocephalic, Other (ETT and NG tube at place) Neck: Yes: Other (IJ at place) Cardiovascular: Yes: WNL, Regular Rate and Rhythm, S1, S2 Respiratory: Yes: WNL, Other (Still intubated) Extremities: Yes: Shortened (excoriation and perpheral gangerene due to vasoconstrictors), Other Edema: Yes Edema: LUE: 1+, RUE: 1+, LLE: 1+ Peripheral Pulses WNL: Yes Integumentary: Yes: Other (Extensive excoriation and peeling of skin) Neurological: Yes: Other (Responds to Vebal command) Labs: CBC, BMP 08/01/16 10:00 08/01/16 10:00 INR, PTT INR 1.36 (0.82-1.09) H 07/29/16 05:30 Fibrinogen > 700.0 mg/dL (238-498) H 07/31/16 05:40 - ....Imaging X-ray: Report Reviewed (B/L Central cathter) Problem List - Problems (1) Perforated abdominal viscus Assessment/Plan: Patient present with Rt UQ pain and with free air, Duodenal ulcer perforation s /p surgery. now fistula formation draining exudates. Code(s): OBA1275 - (2) Acute metabolic encephalopathy Assessment/Plan: Secondary to hypoperfusion at present gradually improving. Code(s): G93.41 - METABOLIC ENCEPHALOPATHY (3) Metabolic acidosis Assessment/Plan: Improved Code(s): E87.2 - ACIDOSIS (4) ZAHIRA (acute kidney injury) Assessment/Plan: Resolved Code(s): N17.9 - ACUTE KIDNEY FAILURE, UNSPECIFIED (5) Thrombocytopenia Assessment/Plan: Due to sepsis, Platelet count improved Code(s): D69.6 - THROMBOCYTOPENIA, UNSPECIFIED (6) Ischemia of extremity Assessment/Plan: Ischemia off all extremities due to prolonged vasopressor use, patient needs pressure to maintain BP Code(s): I99.8 - OTHER DISORDER OF CIRCULATORY SYSTEM (7) Sepsis Assessment/Plan: Due to perforated gastric ulcer on abx and pressors Prognosis is guarded. Code(s): A41.9 - SEPSIS, UNSPECIFIED ORGANISM
[2016-08-01 11:46] LABS: MAGNESIUM 1.6 mg/dL (1.8-2.4)
--- NOTE | 2016-08-01 12:35 | PN ---
Teaching Attending Note Name of Resident: Trevin Terrazas ATTENDING PHYSICIAN STATEMENT I saw and evaluated the patient. I reviewed the resident's note and discussed the case with the resident. I agree with the resident's findings and plan as documented. SUBJECTIVE: Patient seen and examined in the ICU. Remains on Dopamine 10 mcq for hemodynamic support. Arousable and able to follow some simple commands. No gross change in her mottling and gangrene of the 4 extremities. Intake & Output 07/29/16 07/30/16 07/31/16 08/01/16 23:59 23:59 23:59 23:59 Intake Total 3162 2449.6 91195 1438 Output Total 1000 700 900 450 Balance 2162 1749.6 54620 988 Weight 148 lb 14.4 oz 149 lb 4.047 oz 151 lb 3.794 oz 158 lb 8.198 oz Last Vital Signs Temp Pulse Resp BP Pulse Ox 100.8 F H 92 H 16 86/65 92 L 08/01/16 11:59 08/01/16 11:59 08/01/16 12:10 08/01/16 11:59 08/01/16 12:10 Active Medications Acetaminophen (Ofirmev Injection -) 1,000 mg IVPB Q6H PRN PRN Reason: FEVER Last Admin: 07/30/16 09:35 Dose: 1,000 mg Albuterol/Ipratropium (Duoneb -) 1 amp NEB Q6H PRN PRN Reason: SHORTNESS OF BREATH Last Admin: 07/31/16 03:50 Dose: 1 amp Chlorhexidine Gluconate (Hibiclens For Decolonization -) 1 applic TP HS AVERY Last Admin: 07/31/16 21:23 Dose: 1 applic Chlorhexidine Gluconate (Peridex -) 15 ml MM BID AVERY Last Admin: 08/01/16 09:13 Dose: 15 ml Dextrose (D50w (Vial) -) 50 ml IVPUSH Q15M PRN PRN Reason: BLOOD SUGAR < 60 Last Admin: 07/24/16 06:30 Dose: 50 ml Enoxaparin Sodium (Lovenox -) 40 mg SQ BID AVERY Last Admin: 08/01/16 09:13 Dose: 40 mg Norepinephrine Bitartrate 8, (000 mcg/ Dextrose) 500 mls @ 18.75 mls/hr IV TITR AVERY; 5 MCG/MIN PRN Reason: Protocol Last Titration: 07/29/16 19:00 Dose: 0 mcg/min Meropenem 1 gm/ Dextrose 100 mls @ 100 mls/hr IVPB Q8H-IV AVERY PRN Reason: Protocol Last Admin: 08/01/16 09:11 Dose: 100 mls/hr Clindamycin Phosphate (Cleocin 600 Mg Premix Ivpb -) 50 mls @ 100 mls/hr IVPB Q8H-IV AVERY Last Admin: 08/01/16 09:12 Dose: 100 mls/hr Fentanyl 500 mcg/ Dextrose 100 mls @ 10 mls/hr IJ TITR AVERY PRN Reason: 50 MCG/HR Last Admin: 08/01/16 11:36 Dose: 20 mls/hr Dopamine HCl/Dextrose (Dopamine 400 Mg/D5w -) 250 mls @ 12.664 mls/hr IVPB TITR AVERY; 5 MCG/KG/MIN PRN Reason: Protocol Last Admin: 08/01/16 11:50 Dose: 25.7 mls/hr Fluconazole (Diflucan 200 Mg/Ns Premixed Ivpb -) 100 mls @ 100 mls/hr IVPB DAILY [facility] Last Admin: 08/01/16 09:13 Dose: 100 mls/hr Potassium Chloride 40 meq/Potassium Phosphate 15 mm/Magnesium Sulfate 1.47 gm/ Thiamine HCl 100 mg/Multivitamins/Minerals 10 ml/Sterile Water/ Amino Acids/ Dextrose 1,000 mls @ 41.667 mls/hr IVPB DAILY@1600 [facility] Last Admin: 07/31/16 17:00 Dose: 41.667 mls/hr Fat Emulsion Intravenous (Intralipid -) 250 mls @ 20.833 mls/hr IV DAILY@2200 [facility] Last Admin: 07/31/16 21:55 Dose: 20.833 mls/hr Famotidine/Sodium Chloride (Pepcid 20 Mg Premixed Ivpb -) 50 mls @ 100 mls/hr IVPB BID AVERY Last Admin: 08/01/16 09:12 Dose: 100 mls/hr Phenylephrine HCl 20,000 mcg/ (Sodium Chloride) 250 mls @ 75 mls/hr IVPB ASDIR AVERY; 100 MCG/MIN PRN Reason: Protocol Last Admin: 07/31/16 21:23 Dose: Not Given Insulin Aspart (Novolog Vial Sliding Scale -) 1 vial SQ ACHS [facility] PRN Reason: Protocol Last Admin: 08/01/16 06:25 Dose: 4 unit Silver Sulfadiazine (Silvadene -) 1 applic TP DAILY [facility] Last Admin: 08/01/16 09:14 Dose: 1 applic Gen: intubated, arousable Heart: RRR Lung: scattered rhonchi Abd: soft, dressings intact Ext: cold, hypoperfused, dusky Laboratory Results - last 24 hr 07/31/16 07/31/16 07/31/16 05:40 17:16 22:05 WBC RBC Hgb Hct MCV MCHC RDW Plt Count MPV Neutrophils % 86.0 H Lymphocytes % 8.0 Monocytes % 6.0 Differential Comment Manual diff done Platelet Estimate Adequate Puncture Site ABG pH ABG pCO2 at Pt Temp ABG pO2 at Pt Temp ABG HCO3 ABG O2 Sat (Measured) ABG O2 Content ABG Base Excess Heber Test O2 Delivery Device Oxygen Flow Rate Vent Mode Vent Rate Mechanical Rate PEEP Pressure Support Vent Sodium Potassium Chloride Carbon Dioxide Anion Gap BUN Creatinine Creat Clearance w eGFR POC Glucometer 188.60357 190.82640 Random Glucose Calcium Magnesium Total Bilirubin AST ALT Alkaline Phosphatase Total Protein Albumin 08/01/16 08/01/16 08/01/16 05:40 07:15 10:00 WBC 12.5 H RBC 2.57 L Hgb 7.6 L Hct 23.0 L MCV 89.2 MCHC 32.9 RDW 14.7 Plt Count 340 MPV 8.7 Neutrophils % Y Lymphocytes % Y Monocytes % Differential Comment Platelet Estimate Puncture Site Left radial ABG pH 7.42 ABG pCO2 at Pt Temp 40.3 ABG pO2 at Pt Temp 91.0 ABG HCO3 25.3 ABG O2 Sat (Measured) 97.4 ABG O2 Content 10.6 L ABG Base Excess 1.2 Heber Test Positive O2 Delivery Device Vent Oxygen Flow Rate 40 Vent Mode A/c Vent Rate 14 Mechanical Rate Yes PEEP 5.0 Pressure Support Vent 400 Sodium Potassium Chloride Carbon Dioxide Anion Gap BUN Creatinine Creat Clearance w eGFR POC Glucometer 182.28859 Random Glucose Calcium Magnesium Total Bilirubin AST ALT Alkaline Phosphatase Total Protein Albumin 08/01/16 08/01/16 10:00 10:00 WBC RBC Hgb Hct MCV MCHC RDW Plt Count MPV Neutrophils % Lymphocytes % Monocytes % Differential Comment Platelet Estimate Puncture Site ABG pH ABG pCO2 at Pt Temp ABG pO2 at Pt Temp ABG HCO3 ABG O2 Sat (Measured) ABG O2 Content ABG Base Excess Heber Test O2 Delivery Device Oxygen Flow Rate Vent Mode Vent Rate Mechanical Rate PEEP Pressure Support Vent Sodium 143 Potassium 4.6 Chloride 109 H Carbon Dioxide 26 Anion Gap 8 BUN 21 H Creatinine 0.4 L D Creat Clearance w eGFR > 60 POC Glucometer Random Glucose 179 H D Calcium 7.2 L Magnesium 1.6 L Cancelled Total Bilirubin 0.3 D AST 34 ALT 31 Alkaline Phosphatase 82 Total Protein 4.2 L Albumin 0.9 L ASSESSMENT AND PLAN: Perforated Duodenal Ulcer Peritonitis s/p ex-lap/omental patch repair 07/16 Acute Respiratory Failure Septic Shock Acute Kidney Injury Lactic Acidosis Leukopenia/Thrombocytopenia likely from sepsis DM Encephalopathy -> etiology to be determined - ABX per ID - IVF - Minimize pressors use if feasible -> At this point her persistent hypotension warrants continued use of pressors -> Dopamine. I discussed in detail with her family that if they want full/aggressive treatment are necessary. - monitor urine output, creatinine - taper FiO2 to keep Spo2 >90% - transfuse platelets if <20K, cryo if fibrinogen <100 - DVT/GI prophylaxis - continue ICU monitoring - Not an ideal candidate for wean given overall condition and persistent shock - TPN - prognosis appears grave. Family has indicated that Crystal would not want to be maintained on chronic ventilatory support, which I suspect will be her best case scenario. Dr Dubon critical care time spent in reviewing chart, evaluating patient and formulating plan 40 min
--- NOTE | 2016-08-01 12:39 | PN ---
Progress Note (short form) - Note Progress Note: Neurology History of Present Illness The patient is a 65-year-old woman, with a significant past medical history of hypertension, hypercholesterolemia, diabetes mellitus and GI disorders who presented to the emergency department via walk-in for further evaluation of abdominal pain for the past 3-4 days with unintentional 20 lb weight loss over the past three months. She required surgical intervention as documented by Dr. Louise. Thereafter, complicated course and patient in ICU, off sedation for several days. CT head without acute changes. Patient was not awakening initially and remains on multiple pressors and concern was hypoperfusion and possible anoxic brain injury over the weekend. Since, has awoken and is keeps eye open, some tracking and producing spontaneous extremity movement as well following basic commands. 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 Overbreathing vent, but does have notable gangrene of fingers and toes. protecting airway and remains intubated and on vent. Toxic metabolic vs hypoperfusion and anoxic brain injury. Would benefit from MRI but not able to obtain due to vent. On vent, failed weaning trial. Has sepsis and getting ongoing treatment. Remains on blood pressure support with pressors, ill appearing today. Minimally responsive, not actively following commands. *Physical Exam Vital Signs Temperature 100.8 F H 08/01/16 11:59 Pulse Rate 92 H 08/01/16 11:59 Respiratory Rate 16 08/01/16 12:10 Blood Pressure 86/65 08/01/16 11:59 O2 Sat by Pulse Oximetry (%) 92 L 08/01/16 12:10 GENERAL: Awake Frail appearing. HEENT: Normocephalic, atraumatic. +Temporal wasting. PERRL, EOMI. No conjunctival pallor. +Sclera are icteric. +Dry mucous membranes. Oropharynx is clear. NECK: Supple. Full ROM. No JVD. CARDIOVASCULAR: Tachycardic rate but regular rate and rhythm. No murmurs, rubs, or gallops. PULMONARY: +Diffuse dyspneic breath sounds that are equal bilaterally. No wheezing, crackles or rhonchi. ABDOMINAL: Firm but soft abdomen. Diffuse tenderness to palpation without rebound or guarding. Non-distended. No organomegaly. Normoactive bowel sounds. MUSCULOSKELETAL: Normal range of motion at all joints. No bony deformities or tenderness. No CVA tenderness. EXTREMITIES: No cyanosis. No clubbing. No edema. No calf tenderness. SKIN: Tenting of the skin. Jaundiced. No rashes. NEUROLOGICAL: Intubated, ventilation, opens eyes and minimal movement of extremities but not cooperating with confrontation testing, withdraws to pain, not actively following commands PSYCHIATRIC: Cooperative. Good eye contact. Appropriate mood and affect. CBCD WBC 12.5 K/mm3 (4.0-10.0) H 08/01/16 10:00 RBC 2.57 M/mm3 (3.60-5.2) L 08/01/16 10:00 Hgb 7.6 GM/dL (10.7-15.3) L 08/01/16 10:00 Hct 23.0 % (32.4-45.2) L 08/01/16 10:00 MCV 89.2 fl (80-96) 08/01/16 10:00 MCHC 32.9 g/dl (32.0-36.0) 08/01/16 10:00 RDW 14.7 % (11.6-15.6) 08/01/16 10:00 Plt Count 340 K/MM3 (134-434) 08/01/16 10:00 MPV 8.7 fl (7.5-11.1) 08/01/16 10:00 CMP Sodium 143 mmol/L (136-145) 08/01/16 10:00 Potassium 4.6 mmol/L (3.5-5.1) 08/01/16 10:00 Chloride 109 mmol/L (98-107) H 08/01/16 10:00 Carbon Dioxide 26 mmol/L (21-32) 08/01/16 10:00 Anion Gap 8 (8-16) 08/01/16 10:00 BUN 21 mg/dL (7-18) H 08/01/16 10:00 Creatinine 0.4 mg/dL (0.55-1.02) L D 08/01/16 10:00 Creat Clearance w eGFR > 60 (>60) 08/01/16 10:00 Calcium 7.2 mg/dL (8.5-10.1) L 08/01/16 10:00 Total Bilirubin 0.3 mg/dL (0.2-1.0) D 08/01/16 10:00 AST 34 U/L (15-37) 08/01/16 10:00 ALT 31 U/L (12-78) 08/01/16 10:00 Alkaline Phosphatase 82 U/L (45-117) 08/01/16 10:00 Total Protein 4.2 g/dl (6.4-8.2) L 08/01/16 10:00 Albumin 0.9 g/dl (3.4-5.0) L 08/01/16 10:00 EXAM: CT/HEAD CT WITHOUT CONTRAST Interpreted by Dr. Pietro Fried IMPRESSION: Comparison study MRI of the brain February 23, 2015. Findings. Serial axial images of the brain were obtained from foramen magnum to the cranial vertex without intravenous contrast, with coronal, sagittal reconstruction images. No evidence of hydrocephalus, acute subarachnoid hemorrhage, acute intra-axial or extra-axial fluid collection consistent with subdural or epidural hematoma. No mass effect, midline shift, acute ischemic changes, herniation or edema is present. Normal yancey matter white matter differentiation. The cortical sulci, sylvian fissures, perimesencephalic cisterns are not effaced. The CSF spaces are age-appropriate. Supratentorial periventricular chronic white matter microangiopathic ischemic changes are noted. Examination of the bone windows show no fracture. Normal intracranial physiological calcifications are observed. The cranial vascular calcifications are noted. The visualized paranasal sinuses and mastoid air cells are clear. Medical Decision Making 65-year-old woman, with a significant past medical history of hypertension, hypercholesterolemia, diabetes mellitus and GI disorders who presented to the emergency department via walk-in for further evaluation of abdominal pain for the past 3-4 days with unintentional 20 lb weight loss over the past three months. She required surgical intervention as documented by Dr. Louise. Thereafter , complicated course and patient in ICU, off sedation for several days. CT head without acute changes. Patient was not awakening initially and remains on multiple pressors and concern was hypoperfusion and possible anoxic brain injury over the weekend. Since, has awoken and is keeps eye open, some tracking and producing spontaneous extremity movement as well following basic commands. Toxic metabolic vs hypoperfusion and anoxic brain injury. Would benefit from MRI but not able to obtain due to vent. Fistula mgmt per Dr. Louise Continue sepsis treatment Unable to be weaned off vent, mgmt per pulm On pressors, monitor blood pressures Medical mgmt for pleural effusions Continue medical optimization and monitor mental status Ill appearing.
[2016-08-01 12:46] LABS: PLATELET ESTIMATE ADEQUATE (NORMAL)
--- NOTE | 2016-08-01 13:17 | PN ---
Progress Note (short form) - Note Progress Note: Renal Follow up for ZAHIRA/Metabolic acidosis Pt seen and examined in the ICU sedated on the vent via ET tube on Dopamine on TPN Vital Signs Temperature 100.8 F H 08/01/16 11:59 Pulse Rate 92 H 08/01/16 11:59 Respiratory Rate 21 08/01/16 12:15 Blood Pressure 86/65 08/01/16 11:59 O2 Sat by Pulse Oximetry (%) 92 L 08/01/16 12:10 Intake & Output 07/29/16 07/30/16 07/31/16 08/01/16 23:59 23:59 23:59 23:59 Intake Total 3162 2449.6 71580 1438 Output Total 1000 700 900 450 Balance 2162 1749.6 00718 988 Weight 148 lb 14.4 oz 149 lb 4.047 oz 151 lb 3.794 oz 158 lb 8.198 oz Gen: on Vent, NAD CVS: RRR, No M/R Lungs: Dec BS b/l lung andino Abd: Dressing on Abd, Ostomy in place, Ext: No edema, cyanosis/gangrne of both feet and hands CBC, BMP 08/01/16 10:00 08/01/16 10:00 Laboratory Tests 07/30/16 07/31/16 08/01/16 05:25 05:40 10:00 Calcium 7.8 L 7.8 L 7.2 L Phosphorus 3.8 3.3 Magnesium 1.5 L 1.6 L 1.6 L Albumin 0.9 L 0.9 L 0.9 L Current Medications Acetaminophen (Ofirmev Injection -) 1,000 mg IVPB Q6H PRN PRN Reason: FEVER Last Admin: 07/30/16 09:35 Dose: 1,000 mg Albuterol/Ipratropium (Duoneb -) 1 amp NEB Q6H PRN PRN Reason: SHORTNESS OF BREATH Last Admin: 07/31/16 03:50 Dose: 1 amp Chlorhexidine Gluconate (Hibiclens For Decolonization -) 1 applic TP HS AVERY Last Admin: 07/31/16 21:23 Dose: 1 applic Chlorhexidine Gluconate (Peridex -) 15 ml MM BID [facility]ERY Last Admin: 08/01/16 09:13 Dose: 15 ml Dextrose (D50w (Vial) -) 50 ml IVPUSH Q15M PRN PRN Reason: BLOOD SUGAR < 60 Last Admin: 07/24/16 06:30 Dose: 50 ml Enoxaparin Sodium (Lovenox -) 40 mg SQ BID AVERY Last Admin: 08/01/16 09:13 Dose: 40 mg Norepinephrine Bitartrate 8, (000 mcg/ Dextrose) 500 mls @ 18.75 mls/hr IV TITR AVERY; 5 MCG/MIN PRN Reason: Protocol Last Titration: 07/29/16 19:00 Dose: 0 mcg/min Meropenem 1 gm/ Dextrose 100 mls @ 100 mls/hr IVPB Q8H-IV AVERY PRN Reason: Protocol Last Admin: 08/01/16 09:11 Dose: 100 mls/hr Clindamycin Phosphate (Cleocin 600 Mg Premix Ivpb -) 50 mls @ 100 mls/hr IVPB Q8H-IV AVERY Last Admin: 08/01/16 09:12 Dose: 100 mls/hr Fentanyl 500 mcg/ Dextrose 100 mls @ 10 mls/hr IJ TITR AVERY PRN Reason: 50 MCG/HR Last Admin: 08/01/16 11:36 Dose: 20 mls/hr Dopamine HCl/Dextrose (Dopamine 400 Mg/D5w -) 250 mls @ 12.664 mls/hr IVPB TITR AVERY; 5 MCG/KG/MIN PRN Reason: Protocol Last Admin: 08/01/16 11:50 Dose: 25.7 mls/hr Fluconazole (Diflucan 200 Mg/Ns Premixed Ivpb -) 100 mls @ 100 mls/hr IVPB DAILY [facility] Last Admin: 08/01/16 09:13 Dose: 100 mls/hr Potassium Chloride 40 meq/Potassium Phosphate 15 mm/Magnesium Sulfate 1.47 gm/ Thiamine HCl 100 mg/Multivitamins/Minerals 10 ml/Sterile Water/ Amino Acids/ Dextrose 1,000 mls @ 41.667 mls/hr IVPB DAILY@1600 [facility] Last Admin: 07/31/16 17:00 Dose: 41.667 mls/hr Fat Emulsion Intravenous (Intralipid -) 250 mls @ 20.833 mls/hr IV DAILY@2200 [facility] Last Admin: 07/31/16 21:55 Dose: 20.833 mls/hr Famotidine/Sodium Chloride (Pepcid 20 Mg Premixed Ivpb -) 50 mls @ 100 mls/hr IVPB BID [facility] Last Admin: 08/01/16 09:12 Dose: 100 mls/hr Phenylephrine HCl 20,000 mcg/ (Sodium Chloride) 250 mls @ 75 mls/hr IVPB ASDIR AVERY; 100 MCG/MIN PRN Reason: Protocol Last Admin: 07/31/16 21:23 Dose: Not Given Insulin Aspart (Novolog Vial Sliding Scale -) 1 vial SQ ACHS AVERY PRN Reason: Protocol Last Admin: 08/01/16 06:25 Dose: 4 unit Silver Sulfadiazine (Silvadene -) 1 applic TP DAILY [facility] Last Admin: 08/01/16 09:14 Dose: 1 applic A/P 65 year old woman with PMhx of hypertension, hypercholesterolemia, diabetes mellitus who presented with Abd pain and found to have perforated Abd viscus s/ p emergent Sx now with Septic Shock, ZAHIRA and Metabolic Acidosis. #Sepsis/Perforated Abd Viscus/Abcess continue supportive care as per ICU and Sx #Acute Renal failure, now resolved Trend BUN/Cr and urine output #Hypomagnesemia/Electrolyte imbalance Check Mg daily (added to am labs) continue TPN Thank you Cyril Tubbs DO
[2016-08-01] MEDS ORDERED: MAGNESIUM SULFATE IVPB SCH (16:00)
[2016-08-01] MEDS ORDERED: POTASSIUM CHLORIDE IVPB SCH (16:00)
[2016-08-01] MEDS ORDERED: THIAMINE HCL IVPB SCH (16:00)
[2016-08-01] MEDS ORDERED: [UNRECOGNIZED DRUG - OTHER] IVPB SCH (16:00)
[2016-08-01] MEDS: PHENYLEPHRINE HCL 20,000 MCG in SODIUM CHLORIDE 248 ML IVPB SCH (16:15)
[2016-08-01] MEDS: CHLORHEXIDINE GLUCONATE 4% CLEANSER FOR DECOLONIZATION TP SCH (21:31)
[2016-08-01] MEDS: FAT EMULSIONS 250 ML IV SCH (21:36)
[2016-08-02] MEDS: MEROPENEM 1 GM in DEXTROSE 5%-WATER - 100 ML IVPB SCH ×4 (01:26→17:33)
[2016-08-02] MEDS: CLINDAMYCIN 600MG PREMIX IVPB 50 ML IVPB SCH ×3 (01:26→17:37)
[2016-08-02] MEDS: FENTANYL INJECTION 500 MCG in DEXTROSE 5%-WATER - 90 ML IJ SCH ×4 (04:00→22:15)
[2016-08-02] MEDS: INSULIN SLIDING SCALE (NOVOLOG) 1 VIAL SQ SCH ×4 (06:10→22:00)
[2016-08-02 06:35] LABS: MCH 29.3 pg (25.7-33.7); MCHC 32.6 g/dl (32.0-36.0); MEAN CELL VOLUME 89.9 fl (80-96); MEAN PLT VOLUME 8.9 fl (7.5-11.1); PLATELET COUNT 388 K/MM3 (134-434); RDW 14.6 % (11.6-15.6); WHITE BLOOD COUNT 12.4 K/mm3 (4.0-10.0)
[2016-08-02 07:01] LABS: CALCIUM 7.3 mg/dL (8.5-10.1); COCKROFT - GAULT 154.598; CREATININE 0.4 mg/dL (0.55-1.02); MAGNESIUM 1.6 mg/dL (1.8-2.4); PHOSPHOROUS 2.5 mg/dL (2.5-4.9)
[2016-08-02 07:55] LABS: ARTERIAL BLD GAS O2 SATURATION 97.8 % (90-98.9); ARTERIAL BLOOD GAS BASE EXCESS 0.2 meq/l (-2-2); ARTERIAL BLOOD GAS HCO3 24.3 meq/L (22-26); ARTERIAL BLOOD GAS PO2 96.5 mmHg (80-100); ARTERIAL BLOOD GAS pH 7.41 (7.35-7.45)
[2016-08-02 07:58] LABS: ALLENS TEST POSITIVE; ART PUNCT SITE LEFT RADIAL; LPM/O2% 40%; MECH. VENT. ESPRIT; PT. ON O2? YES; TYPE OF O2 MEC.VENT
[2016-08-02 07:59] LABS: VENT RATE 14; VT/PRESS 400
--- NOTE | 2016-08-02 09:23 | PN ---
Progress Note (short form) - Note Progress Note: Patient seen and examined in the ICU. Remains on Dopamine 10 mcq for hemodynamic support. Arousable and able to follow some simple commands. Line of demarcation appear stable but there is worsening of changes to both of her hands. Intake & Output 07/30/16 07/31/16 08/01/16 08/02/16 23:59 23:59 23:59 23:59 Intake Total 2449.6 53594 3453 913.9 Output Total 009 826 3464 500 Balance 1749.6 15384 1953 413.9 Weight 149 lb 4.047 oz 151 lb 3.794 oz 158 lb 8.198 oz 158 lb 3.2 oz Last Vital Signs Temp Pulse Resp BP Pulse Ox 100.1 F H 97 H 20 94/46 100 08/02/16 06:00 08/02/16 09:10 08/02/16 09:10 08/02/16 09:10 08/02/16 08:54 Active Medications Acetaminophen (Ofirmev Injection -) 1,000 mg IVPB Q6H PRN PRN Reason: FEVER Last Admin: 07/30/16 09:35 Dose: 1,000 mg Albuterol/Ipratropium (Duoneb -) 1 amp NEB Q6H PRN PRN Reason: SHORTNESS OF BREATH Last Admin: 07/31/16 03:50 Dose: 1 amp Chlorhexidine Gluconate (Hibiclens For Decolonization -) 1 applic TP HS AVERY Last Admin: 08/01/16 21:31 Dose: 1 applic Chlorhexidine Gluconate (Peridex -) 15 ml MM BID [facility] Last Admin: 08/01/16 21:32 Dose: 15 ml Dextrose (D50w (Vial) -) 50 ml IVPUSH Q15M PRN PRN Reason: BLOOD SUGAR < 60 Last Admin: 07/24/16 06:30 Dose: 50 ml Enoxaparin Sodium (Lovenox -) 40 mg SQ BID [facility] Last Admin: 08/01/16 21:32 Dose: 40 mg Norepinephrine Bitartrate 8, (000 mcg/ Dextrose) 500 mls @ 18.75 mls/hr IV TITR AVERY; 5 MCG/MIN PRN Reason: Protocol Last Titration: 07/29/16 19:00 Dose: 0 mcg/min Meropenem 1 gm/ Dextrose 100 mls @ 100 mls/hr IVPB Q8H-IV AVERY PRN Reason: Protocol Last Admin: 08/02/16 01:26 Dose: 100 mls/hr Clindamycin Phosphate (Cleocin 600 Mg Premix Ivpb -) 50 mls @ 100 mls/hr IVPB Q8H-IV AVERY Last Admin: 08/02/16 01:26 Dose: 100 mls/hr Fentanyl 500 mcg/ Dextrose 100 mls @ 10 mls/hr IJ TITR AVERY PRN Reason: 50 MCG/HR Last Admin: 08/02/16 04:00 Dose: 20 mls/hr Dopamine HCl/Dextrose (Dopamine 400 Mg/D5w -) 250 mls @ 12.664 mls/hr IVPB TITR AVERY; 5 MCG/KG/MIN PRN Reason: Protocol Last Admin: 08/01/16 21:56 Dose: 25.328 mls/hr Fluconazole (Diflucan 200 Mg/Ns Premixed Ivpb -) 100 mls @ 100 mls/hr IVPB DAILY [facility] Last Admin: 08/01/16 09:13 Dose: 100 mls/hr Fat Emulsion Intravenous (Intralipid -) 250 mls @ 20.833 mls/hr IV DAILY@2200 [facility] Last Admin: 08/01/16 21:36 Dose: 20.833 mls/hr Famotidine/Sodium Chloride (Pepcid 20 Mg Premixed Ivpb -) 50 mls @ 100 mls/hr IVPB BID [facility] Last Admin: 08/01/16 21:32 Dose: 100 mls/hr Potassium Chloride 30 meq/Magnesium Sulfate 2.46 gm/Thiamine HCl 100 mg/ Multivitamins/Minerals 10 ml/Chromium/Copper/Manganese/Seleni/Zn 1 ml/ Sterile Water/Amino Acids/ Dextrose 1,000 mls @ 41.667 mls/hr IVPB DAILY@1600 [facility] Last Admin: 08/01/16 16:16 Dose: 41.667 mls/hr Phenylephrine HCl 20,000 mcg/ (Sodium Chloride) 250 mls @ 75 mls/hr IVPB ASDIR AVERY; 100 MCG/MIN PRN Reason: Protocol Stop: 08/02/16 18:18 Last Admin: 08/01/16 16:15 Dose: Not Given Insulin Aspart (Novolog Vial Sliding Scale -) 1 vial SQ ACHS AVERY PRN Reason: Protocol Last Admin: 08/02/16 06:10 Dose: 8 unit Silver Sulfadiazine (Silvadene -) 1 applic TP DAILY [facility] Last Admin: 08/01/16 09:14 Dose: 1 applic Gen: intubated, arousable Heart: RRR Lung: scattered rhonchi Abd: soft, dressings intact Ext: cold, hypoperfused, dusky Laboratory Results - last 24 hr 08/01/16 08/01/16 08/01/16 05:40 10:00 10:00 WBC 12.5 H RBC 2.57 L Hgb 7.6 L Hct 23.0 L MCV 89.2 MCHC 32.9 RDW 14.7 Plt Count 340 MPV 8.7 Neutrophils % 79.0 Lymphocytes % 15.0 D Monocytes % 4.0 Eosinophils % 1.0 Differential Comment Manual diff done Plasma Cells 1 Platelet Estimate Adequate Puncture Site ABG pH ABG pCO2 at Pt Temp ABG pO2 at Pt Temp ABG HCO3 ABG O2 Sat (Measured) ABG O2 Content ABG Base Excess Heber Test O2 Delivery Device Oxygen Flow Rate Vent Mode Vent Rate Mechanical Rate PEEP Pressure Support Vent Sodium 143 Potassium 4.6 Chloride 109 H Carbon Dioxide 26 Anion Gap 8 BUN 21 H Creatinine 0.4 L D Creat Clearance w eGFR > 60 POC Glucometer 182.76888 Random Glucose 179 H D Calcium 7.2 L Phosphorus Magnesium 1.6 L Total Bilirubin 0.3 D AST 34 ALT 31 Alkaline Phosphatase 82 Total Protein 4.2 L Albumin 0.9 L 08/01/16 08/01/16 08/01/16 10:00 12:29 23:18 WBC RBC Hgb Hct MCV MCHC RDW Plt Count MPV Neutrophils % Lymphocytes % Monocytes % Eosinophils % Differential Comment Plasma Cells Platelet Estimate Puncture Site ABG pH ABG pCO2 at Pt Temp ABG pO2 at Pt Temp ABG HCO3 ABG O2 Sat (Measured) ABG O2 Content ABG Base Excess Heber Test O2 Delivery Device Oxygen Flow Rate Vent Mode Vent Rate Mechanical Rate PEEP Pressure Support Vent Sodium Potassium Chloride Carbon Dioxide Anion Gap BUN Creatinine Creat Clearance w eGFR POC Glucometer 134.95378 275.25564 Random Glucose Calcium Phosphorus Magnesium Cancelled Total Bilirubin AST ALT Alkaline Phosphatase Total Protein Albumin 08/02/16 08/02/16 08/02/16 05:40 05:40 07:50 WBC 12.4 H RBC 2.37 L Hgb 6.9 L* Hct 21.3 L MCV 89.9 MCHC 32.6 RDW 14.6 Plt Count 388 MPV 8.9 Neutrophils % Y Lymphocytes % Y Monocytes % Eosinophils % Differential Comment Plasma Cells Platelet Estimate Puncture Site Left radial ABG pH 7.41 ABG pCO2 at Pt Temp 39.5 ABG pO2 at Pt Temp 96.5 ABG HCO3 24.3 ABG O2 Sat (Measured) 97.8 ABG O2 Content 9.6 L* ABG Base Excess 0.2 Heber Test Positive O2 Delivery Device Mec.vent Oxygen Flow Rate 40% Vent Mode A/c Vent Rate 14 Mechanical Rate Esprit PEEP 5.0 Pressure Support Vent 400 Sodium 141 Potassium 4.6 Chloride 107 Carbon Dioxide 25 Anion Gap 9 BUN 20 H Creatinine 0.4 L Creat Clearance w eGFR POC Glucometer Random Glucose 283 H D Calcium 7.3 L Phosphorus 2.5 D Magnesium 1.6 L Total Bilirubin AST ALT Alkaline Phosphatase Total Protein Albumin ASSESSMENT AND PLAN: Perforated Duodenal Ulcer Peritonitis s/p ex-lap/omental patch repair 07/16 Acute Respiratory Failure Septic Shock Acute Kidney Injury Lactic Acidosis Leukopenia/Thrombocytopenia likely from sepsis DM Encephalopathy -> etiology to be determined - ABX per ID - IVF - Ideally would want to minimize pressors use -> At this point her persistent hypotension warrants continued use of pressors -> Dopamine. I previously this in discussed in detail with her family that if they want full/aggressive treatment. - monitor urine output, creatinine - taper FiO2 to keep Spo2 >90% - transfuse platelets if <20K, cryo if fibrinogen <100 - DVT/GI prophylaxis - continue ICU monitoring - Not an ideal candidate for wean given overall condition and persistent shock - TPN - prognosis appears grave. Family has indicated that Crystal would not want to be maintained on chronic ventilatory support, which I suspect will be her best case scenario. Dr Dubon critical care time spent in reviewing chart, evaluating patient and formulating plan 40 min
--- NOTE | 2016-08-02 10:01 | PN ---
Progress Note, Physician Chief Complaint: Remained at her base line , spiked fever, opens eye to verbal command, but now only pressors dependent. History of Present Illness: 65-year-old F H/O hypertension, hypercholesterolemia, T2DM, ETOH abuse, was presented to ED with abd pain and wt loss underwent exploratory laprotomy for perforated duodenal ulcer on 07/21/16 developed hypotention and sepsis intubated on pressors and TPN. - Current Medication List Current Medications: Active Medications Acetaminophen (Ofirmev Injection -) 1,000 mg IVPB Q6H PRN PRN Reason: FEVER Last Admin: 07/30/16 09:35 Dose: 1,000 mg Albuterol/Ipratropium (Duoneb -) 1 amp NEB Q6H PRN PRN Reason: SHORTNESS OF BREATH Last Admin: 07/31/16 03:50 Dose: 1 amp Chlorhexidine Gluconate (Hibiclens For Decolonization -) 1 applic TP HS AVERY Last Admin: 08/01/16 21:31 Dose: 1 applic Chlorhexidine Gluconate (Peridex -) 15 ml MM BID [facility]ERY Last Admin: 08/01/16 21:32 Dose: 15 ml Dextrose (D50w (Vial) -) 50 ml IVPUSH Q15M PRN PRN Reason: BLOOD SUGAR < 60 Last Admin: 07/24/16 06:30 Dose: 50 ml Enoxaparin Sodium (Lovenox -) 40 mg SQ BID AVERY Last Admin: 08/01/16 21:32 Dose: 40 mg Norepinephrine Bitartrate 8, (000 mcg/ Dextrose) 500 mls @ 18.75 mls/hr IV TITR AVERY; 5 MCG/MIN PRN Reason: Protocol Last Titration: 07/29/16 19:00 Dose: 0 mcg/min Meropenem 1 gm/ Dextrose 100 mls @ 100 mls/hr IVPB Q8H-IV AVERY PRN Reason: Protocol Last Admin: 08/02/16 01:26 Dose: 100 mls/hr Clindamycin Phosphate (Cleocin 600 Mg Premix Ivpb -) 50 mls @ 100 mls/hr IVPB Q8H-IV AVERY Last Admin: 08/02/16 01:26 Dose: 100 mls/hr Fentanyl 500 mcg/ Dextrose 100 mls @ 10 mls/hr IJ TITR AVERY PRN Reason: 50 MCG/HR Last Admin: 08/02/16 04:00 Dose: 20 mls/hr Dopamine HCl/Dextrose (Dopamine 400 Mg/D5w -) 250 mls @ 12.664 mls/hr IVPB TITR AVERY; 5 MCG/KG/MIN PRN Reason: Protocol Last Admin: 08/01/16 21:56 Dose: 25.328 mls/hr Fluconazole (Diflucan 200 Mg/Ns Premixed Ivpb -) 100 mls @ 100 mls/hr IVPB DAILY [facility] Last Admin: 08/01/16 09:13 Dose: 100 mls/hr Fat Emulsion Intravenous (Intralipid -) 250 mls @ 20.833 mls/hr IV DAILY@2200 [facility] Last Admin: 08/01/16 21:36 Dose: 20.833 mls/hr Famotidine/Sodium Chloride (Pepcid 20 Mg Premixed Ivpb -) 50 mls @ 100 mls/hr IVPB BID [facility] Last Admin: 08/01/16 21:32 Dose: 100 mls/hr Potassium Chloride 30 meq/Magnesium Sulfate 2.46 gm/Thiamine HCl 100 mg/ Multivitamins/Minerals 10 ml/Chromium/Copper/Manganese/Seleni/Zn 1 ml/ Sterile Water/Amino Acids/ Dextrose 1,000 mls @ 41.667 mls/hr IVPB DAILY@1600 [facility] Last Admin: 08/01/16 16:16 Dose: 41.667 mls/hr Phenylephrine HCl 20,000 mcg/ (Sodium Chloride) 250 mls @ 75 mls/hr IVPB ASDIR AVERY; 100 MCG/MIN PRN Reason: Protocol Stop: 08/02/16 18:18 Last Admin: 08/01/16 16:15 Dose: Not Given Insulin Aspart (Novolog Vial Sliding Scale -) 1 vial SQ ACHS AVERY PRN Reason: Protocol Last Admin: 08/02/16 06:10 Dose: 8 unit Silver Sulfadiazine (Silvadene -) 1 applic TP DAILY [facility] Last Admin: 08/01/16 09:14 Dose: 1 applic - Objective Vital Signs: Vital Signs Temperature 100.1 F H 08/02/16 06:00 Pulse Rate 97 H 08/02/16 09:10 Respiratory Rate 20 08/02/16 09:20 Blood Pressure 94/46 08/02/16 09:10 O2 Sat by Pulse Oximetry (%) 100 08/02/16 08:54 Patient remained at base line, on Vent pressors and TPN HEENT: Mm most, ETT and NG Tube at place NECK: B/L Central line at place CHEST: Monmal basl crepts CVS; S1S2 R ABD: No distention, non tender fistula Rt UQ discharging exudates. EXT: all extremities distal gangrene, excoriation of skin and extremity edema. BINGO CLERK: Minimally responsive to verabl command , opens eye , no limb activity. Labs: CBC, BMP 08/02/16 05:40 08/02/16 05:40 INR, PTT INR 1.36 (0.82-1.09) H 07/29/16 05:30 Fibrinogen > 700.0 mg/dL (238-498) H 07/31/16 05:40 Problem List - Problems (1) Perforated abdominal viscus Assessment/Plan: Patient present with Rt UQ pain and with free air, Duodenal ulcer perforation s /p surgery. now fistula formation draining exudates. Code(s): [id number] - (2) Acute metabolic encephalopathy Assessment/Plan: Secondary to hypoperfusion due to septic shock, at present gradually improving. Code(s): G93.41 - METABOLIC ENCEPHALOPATHY (3) Metabolic acidosis Code(s): E87.2 - ACIDOSIS (4) ZAHIRA (acute kidney injury) Assessment/Plan: Resolved Code(s): N17.9 - ACUTE KIDNEY FAILURE, UNSPECIFIED (5) Thrombocytopenia Assessment/Plan: Due to sepsis, Platelet count improved Code(s): D69.6 - THROMBOCYTOPENIA, UNSPECIFIED (6) Ischemia of extremity Assessment/Plan: Ischemia off all extremities due to prolonged vasopressor use, patient needs pressure to maintain BP Code(s): I99.8 - OTHER DISORDER OF CIRCULATORY SYSTEM (7) Sepsis Assessment/Plan: Due to perforated gastric ulcer on abx and pressors. Prognosis is guarded. Code(s): A41.9 - SEPSIS, UNSPECIFIED ORGANISM
[2016-08-02] MEDS: ENOXAPARIN NA (PORCINE) 40 MG/0.4 ML DISP.SYRIN SQ SCH ×2 (10:04→22:00)
[2016-08-02] MEDS: FAMOTIDINE 20 MG/50 ML IVPB 50 ML IVPB SCH ×2 (10:04→22:00)
[2016-08-02] MEDS: SILVER SULFADIAZINE 1% TOP CREAM 50 GM JAR TP SCH (10:07)
[2016-08-02] MEDS: CHLORHEXIDINE GLUCONATE 0.12% 15ML CUP MM SCH ×2 (10:07→22:00)
[2016-08-02 10:28] LABS: ANISOCYTOSIS 1+; HYPOCHROMIA 2+; PLATELET COMMENT2 NO CLOTTING DETECTED; PLATELET ESTIMATE ADEQUATE (NORMAL); POIKILOCYTOSIS 1+; POLYCHROMASIA 1+; SMUDGE CELLS FEW
--- NOTE | 2016-08-02 10:43 | PN ---
Progress Note (short form) - Note Progress Note: Renal Follow up for ZAHIRA/Metabolic acidosis Pt seen and examined in the ICU awake on vent via ET tube on Fentayl and Levophed good urine output Vital Signs Temperature 100.1 F H 08/02/16 06:00 Pulse Rate 97 H 08/02/16 09:10 Respiratory Rate 20 08/02/16 09:20 Blood Pressure 94/46 08/02/16 09:10 O2 Sat by Pulse Oximetry (%) 100 08/02/16 08:54 Intake & Output 07/30/16 07/31/16 08/01/16 08/02/16 23:59 23:59 23:59 23:59 Intake Total 2449.6 17545 3453 913.9 Output Total 973 521 3045 500 Balance 1749.6 56047 1953 413.9 Weight 149 lb 4.047 oz 151 lb 3.794 oz 158 lb 8.198 oz 158 lb 3.2 oz Gen: on Vent, NAD CVS: RRR, No M/R Lungs: Dec BS b/l lung andino Abd: Dressing on Abd, Ostomy in place, Ext: No edema, cyanosis/gangrne of both feet and hands CBC, BMP 08/02/16 05:40 08/02/16 05:40 Laboratory Tests 08/02/16 05:40 Calcium 7.3 L Phosphorus 2.5 D Magnesium 1.6 L Current Medications Acetaminophen (Ofirmev Injection -) 1,000 mg IVPB Q6H PRN PRN Reason: FEVER Last Admin: 07/30/16 09:35 Dose: 1,000 mg Albuterol/Ipratropium (Duoneb -) 1 amp NEB Q6H PRN PRN Reason: SHORTNESS OF BREATH Last Admin: 07/31/16 03:50 Dose: 1 amp Chlorhexidine Gluconate (Hibiclens For Decolonization -) 1 applic TP HS [facility] Last Admin: 08/01/16 21:31 Dose: 1 applic Chlorhexidine Gluconate (Peridex -) 15 ml MM BID [facility] Last Admin: 08/02/16 10:07 Dose: 15 ml Dextrose (D50w (Vial) -) 50 ml IVPUSH Q15M PRN PRN Reason: BLOOD SUGAR < 60 Last Admin: 07/24/16 06:30 Dose: 50 ml Enoxaparin Sodium (Lovenox -) 40 mg SQ BID [facility] Last Admin: 08/02/16 10:04 Dose: 40 mg Norepinephrine Bitartrate 8, (000 mcg/ Dextrose) 500 mls @ 18.75 mls/hr IV TITR [facility]; 5 MCG/MIN PRN Reason: Protocol Last Titration: 07/29/16 19:00 Dose: 0 mcg/min Meropenem 1 gm/ Dextrose 100 mls @ 100 mls/hr IVPB Q8H-IV [facility] PRN Reason: Protocol Last Admin: 08/02/16 10:06 Dose: 100 mls/hr Clindamycin Phosphate (Cleocin 600 Mg Premix Ivpb -) 50 mls @ 100 mls/hr IVPB Q8H-IV [facility] Last Admin: 08/02/16 10:05 Dose: 100 mls/hr Fentanyl 500 mcg/ Dextrose 100 mls @ 10 mls/hr IJ TITR [facility] PRN Reason: 50 MCG/HR Last Admin: 08/02/16 10:02 Dose: 20 mls/hr Dopamine HCl/Dextrose (Dopamine 400 Mg/D5w -) 250 mls @ 12.664 mls/hr IVPB TITR [facility]; 5 MCG/KG/MIN PRN Reason: Protocol Last Admin: 08/01/16 21:56 Dose: 25.328 mls/hr Fluconazole (Diflucan 200 Mg/Ns Premixed Ivpb -) 100 mls @ 100 mls/hr IVPB DAILY [facility] Last Admin: 08/01/16 09:13 Dose: 100 mls/hr Fat Emulsion Intravenous (Intralipid -) 250 mls @ 20.833 mls/hr IV DAILY@2200 [facility] Last Admin: 08/01/16 21:36 Dose: 20.833 mls/hr Famotidine/Sodium Chloride (Pepcid 20 Mg Premixed Ivpb -) 50 mls @ 100 mls/hr IVPB BID [facility] Last Admin: 08/02/16 10:04 Dose: 100 mls/hr Potassium Chloride 30 meq/Magnesium Sulfate 2.46 gm/Thiamine HCl 100 mg/ Multivitamins/Minerals 10 ml/Chromium/Copper/Manganese/Seleni/Zn 1 ml/ Sterile Water/Amino Acids/ Dextrose 1,000 mls @ 41.667 mls/hr IVPB DAILY@1600 [facility] Last Admin: 08/01/16 16:16 Dose: 41.667 mls/hr Phenylephrine HCl 20,000 mcg/ (Sodium Chloride) 250 mls @ 75 mls/hr IVPB ASDIR [facility]ERY; 100 MCG/MIN PRN Reason: Protocol Stop: 08/02/16 18:18 Last Admin: 08/01/16 16:15 Dose: Not Given Insulin Aspart (Novolog Vial Sliding Scale -) 1 vial SQ ACHS [facility] PRN Reason: Protocol Last Admin: 08/02/16 06:10 Dose: 8 unit Silver Sulfadiazine (Silvadene -) 1 applic TP DAILY [facility] Last Admin: 08/02/16 10:07 Dose: 1 applic A/P 65 year old woman with PMhx of hypertension, hypercholesterolemia, diabetes mellitus who presented with Abd pain and found to have perforated Abd viscus s/ p emergent Sx now with Septic Shock, ZAHIRA and Metabolic Acidosis. #Sepsis/Perforated Abd Viscus/Abcess continue supportive care as per ICU and Sx #Acute Renal failure, now resolved Renal function stable keep MAP > 65 #Hypomagnesemia/Electrolyte imbalance on TPN with Mg Give additional IV Mg today to keep above 2 #Anemia Hgb 6.9, transfuse as per ICU protocol Thank you Cyril Tubbs DO
--- NOTE | 2016-08-02 10:44 | PN ---
Progress Note, Physician History of Present Illness: patient opening eyes to verbal commands still requiring pressors critical - Current Medication List Current Medications: Active Medications Acetaminophen (Ofirmev Injection -) 1,000 mg IVPB Q6H PRN PRN Reason: FEVER Last Admin: 07/30/16 09:35 Dose: 1,000 mg Albuterol/Ipratropium (Duoneb -) 1 amp NEB Q6H PRN PRN Reason: SHORTNESS OF BREATH Last Admin: 07/31/16 03:50 Dose: 1 amp Chlorhexidine Gluconate (Hibiclens For Decolonization -) 1 applic TP HS [facility] Last Admin: 08/01/16 21:31 Dose: 1 applic Chlorhexidine Gluconate (Peridex -) 15 ml MM BID [facility] Last Admin: 08/02/16 10:07 Dose: 15 ml Dextrose (D50w (Vial) -) 50 ml IVPUSH Q15M PRN PRN Reason: BLOOD SUGAR < 60 Last Admin: 07/24/16 06:30 Dose: 50 ml Enoxaparin Sodium (Lovenox -) 40 mg SQ BID [facility] Last Admin: 08/02/16 10:04 Dose: 40 mg Norepinephrine Bitartrate 8, (000 mcg/ Dextrose) 500 mls @ 18.75 mls/hr IV TITR [facility]; 5 MCG/MIN PRN Reason: Protocol Last Titration: 07/29/16 19:00 Dose: 0 mcg/min Meropenem 1 gm/ Dextrose 100 mls @ 100 mls/hr IVPB Q8H-IV [facility] PRN Reason: Protocol Last Admin: 08/02/16 10:06 Dose: 100 mls/hr Clindamycin Phosphate (Cleocin 600 Mg Premix Ivpb -) 50 mls @ 100 mls/hr IVPB Q8H-IV [facility] Last Admin: 08/02/16 10:05 Dose: 100 mls/hr Fentanyl 500 mcg/ Dextrose 100 mls @ 10 mls/hr IJ TITR [facility] PRN Reason: 50 MCG/HR Last Admin: 08/02/16 10:02 Dose: 20 mls/hr Dopamine HCl/Dextrose (Dopamine 400 Mg/D5w -) 250 mls @ 12.664 mls/hr IVPB TITR [facility]; 5 MCG/KG/MIN PRN Reason: Protocol Last Admin: 08/01/16 21:56 Dose: 25.328 mls/hr Fluconazole (Diflucan 200 Mg/Ns Premixed Ivpb -) 100 mls @ 100 mls/hr IVPB DAILY [facility] Last Admin: 08/01/16 09:13 Dose: 100 mls/hr Fat Emulsion Intravenous (Intralipid -) 250 mls @ 20.833 mls/hr IV DAILY@2200 [facility] Last Admin: 08/01/16 21:36 Dose: 20.833 mls/hr Famotidine/Sodium Chloride (Pepcid 20 Mg Premixed Ivpb -) 50 mls @ 100 mls/hr IVPB BID [facility] Last Admin: 08/02/16 10:04 Dose: 100 mls/hr Potassium Chloride 30 meq/Magnesium Sulfate 2.46 gm/Thiamine HCl 100 mg/ Multivitamins/Minerals 10 ml/Chromium/Copper/Manganese/Seleni/Zn 1 ml/ Sterile Water/Amino Acids/ Dextrose 1,000 mls @ 41.667 mls/hr IVPB DAILY@1600 [facility] Last Admin: 08/01/16 16:16 Dose: 41.667 mls/hr Phenylephrine HCl 20,000 mcg/ (Sodium Chloride) 250 mls @ 75 mls/hr IVPB ASDIR [facility]ERY; 100 MCG/MIN PRN Reason: Protocol Stop: 08/02/16 18:18 Last Admin: 08/01/16 16:15 Dose: Not Given Insulin Aspart (Novolog Vial Sliding Scale -) 1 vial SQ ACHS [facility] PRN Reason: Protocol Last Admin: 08/02/16 06:10 Dose: 8 unit Silver Sulfadiazine (Silvadene -) 1 applic TP DAILY [facility] Last Admin: 08/02/16 10:07 Dose: 1 applic - Objective Vital Signs: Vital Signs Temperature 100.1 F H 08/02/16 06:00 Pulse Rate 97 H 08/02/16 09:10 Respiratory Rate 20 08/02/16 09:20 Blood Pressure 94/46 08/02/16 09:10 O2 Sat by Pulse Oximetry (%) 100 08/02/16 08:54 Constitutional: Yes: Other Cardiovascular: Yes: Regular Rate and Rhythm Respiratory: Yes: Intubated, Mechanically Ventilated Gastrointestinal: Yes: Soft, Hypoactive Bowel Sounds, Other (fistula present) Musculoskeletal: Yes: Other Extremities: Yes: Other (tips of the finger gangrenous) Wound/Incision: Yes: Other Neurological: Yes: Alert, Other Labs: CBC, BMP 08/02/16 05:40 08/02/16 05:40 INR, PTT INR 1.36 (0.82-1.09) H 07/29/16 05:30 Fibrinogen > 700.0 mg/dL (238-498) H 07/31/16 05:40 Assessment/Plan Problem List - Problems (1) Abdominal pain Code(s): R10.9 - UNSPECIFIED ABDOMINAL PAIN Qualifiers: Qualified Code(s): R10.33 - Periumbilical pain (2) Perforated abdominal viscus Code(s): [id number] - (3) Perforated viscus Code(s): R19.8 - OTH SYMPTOMS AND SIGNS INVOLVING THE DGSTV SYS AND ABDOMEN (4) Hypertension Code(s): I10 - ESSENTIAL (PRIMARY) HYPERTENSION Qualifiers: Qualified Code(s): I10 - Essential (primary) hypertension lactic acidosis fevers generalized swelling gangrene of the tip of the fingers noted plan contiues to be critical blood pressure very fluid on pressors still not able to maintain the pressure continue current mgmt will see how patient is going to progress cc time 40 min
[2016-08-02] MEDS: FLUCONAZOLE 200 MG/NS 100 ML IVPB SCH (12:58)
[2016-08-02] MEDS: DOPAMINE 400 MG/D5W - 250 ML IVPB SCH (12:59)
[2016-08-02] MEDS ORDERED: MAGNESIUM SULFATE IVPB SCH (16:00)
[2016-08-02] MEDS ORDERED: [UNRECOGNIZED DRUG - OTHER] IVPB SCH (16:00)
[2016-08-02] MEDS ORDERED: POTASSIUM CHLORIDE IVPB SCH (16:00)
[2016-08-02] MEDS ORDERED: INSULIN REGULAR IVPB SCH (16:00)
[2016-08-02] MEDS: PHENYLEPHRINE HCL 20,000 MCG in SODIUM CHLORIDE 248 ML IVPB SCH (17:35)
[2016-08-02] MEDS ORDERED: PT OWN MED DRAWER 7, Y5N ONE (19:44)
[2016-08-02] MEDS: CHLORHEXIDINE GLUCONATE 4% CLEANSER FOR DECOLONIZATION TP SCH (22:00)
[2016-08-02] MEDS: FAT EMULSIONS 250 ML IV SCH (22:00)
[2016-08-03] MEDS: CLINDAMYCIN 600MG PREMIX IVPB 50 ML IVPB SCH ×3 (01:51→18:59)
[2016-08-03] MEDS: MEROPENEM 1 GM in DEXTROSE 5%-WATER - 100 ML IVPB SCH ×3 (01:52→18:59)
[2016-08-03] MEDS: FENTANYL INJECTION 500 MCG in DEXTROSE 5%-WATER - 90 ML IJ SCH ×4 (01:52→20:31)
[2016-08-03] MEDS: DOPAMINE 400 MG/D5W - 250 ML IVPB SCH ×2 (01:53→13:03)
[2016-08-03 06:15] LABS: MCH 29.2 pg (25.7-33.7); MCHC 33.5 g/dl (32.0-36.0); MEAN PLT VOLUME 8.8 fl (7.5-11.1); PLATELET COUNT 395 K/MM3 (134-434); RDW 15.2 % (11.6-15.6); WHITE BLOOD COUNT 13.8 K/mm3 (4.0-10.0)
[2016-08-03] MEDS: INSULIN SLIDING SCALE (NOVOLOG) 1 VIAL SQ SCH ×4 (06:21→22:40)
[2016-08-03 06:52] LABS: ALK PHOS 102 U/L (45-117); ANION GAP 10 (8-16); BILIRUBIN,TOTAL 0.5 mg/dL (0.2-1.0); CALCIUM 7.5 mg/dL (8.5-10.1); CO2 25 mmol/L (21-32); CREATININE 0.4 mg/dL (0.55-1.02); GLUCOSE,RANDOM 290 mg/dL (74-106); MAGNESIUM 1.7 mg/dL (1.8-2.4); PHOSPHOROUS 2.2 mg/dL (2.5-4.9); SGOT/AST 30 U/L (15-37); SGPT/ALT 25 U/L (12-78); TOT PROT 4.7 g/dl (6.4-8.2)
[2016-08-03 07:00] LABS: ALBUMIN 0.9 g/dl (3.4-5.0)
[2016-08-03] MEDS ORDERED: MAGNESIUM 4GM/H20 - 100 ML IVPB ONE (07:15)
[2016-08-03] MEDS ORDERED: POTASSIUM PHOSPHATE 15 MM in DEXTROSE 5%-WATER - 250 ML IVPB ONE (07:15)
--- NOTE | 2016-08-03 07:15 | PN ---
Progress Note (short form) - Note Progress Note: Renal Follow up for ZAHIRA/Metabolic acidosis Pt seen and examined in the ICU On Phenyleprine 50mcg on Fentanyl good urine output on TPN Vital Signs Temperature 99.7 F H 08/03/16 02:00 Pulse Rate 101 H 08/03/16 04:00 Respiratory Rate 16 08/03/16 04:22 Blood Pressure 119/59 08/03/16 04:00 O2 Sat by Pulse Oximetry (%) 98 08/02/16 22:00 Intake & Output 07/31/16 08/01/16 08/02/16 08/03/16 23:59 23:59 23:59 23:59 Intake Total 05396 3453 2864.7 Output Total 900 1500 1850 Balance 37757 1953 1014.7 Weight 151 lb 3.794 oz 158 lb 8.198 oz 158 lb 3.2 oz 158 lb 4.8 oz Gen: on Vent, NAD CVS: RRR, No M/R Lungs: Dec BS b/l lung andino Abd: Dressing on Abd, Ostomy in place, Ext: No edema, cyanosis/gangrne of both feet and hands CBC, BMP 08/03/16 05:20 08/03/16 05:20 Laboratory Tests 08/03/16 05:20 Phosphorus 2.2 L Magnesium 1.7 L Albumin 0.9 L Current Medications Acetaminophen (Ofirmev Injection -) 1,000 mg IVPB Q6H PRN PRN Reason: FEVER Last Admin: 07/30/16 09:35 Dose: 1,000 mg Albuterol/Ipratropium (Duoneb -) 1 amp NEB Q6H PRN PRN Reason: SHORTNESS OF BREATH Last Admin: 07/31/16 03:50 Dose: 1 amp Chlorhexidine Gluconate (Hibiclens For Decolonization -) 1 applic TP HS [facility] Last Admin: 08/02/16 22:00 Dose: 1 applic Chlorhexidine Gluconate (Peridex -) 15 ml MM BID [facility] Last Admin: 08/02/16 22:00 Dose: 15 ml Dextrose (D50w (Vial) -) 50 ml IVPUSH Q15M PRN PRN Reason: BLOOD SUGAR < 60 Last Admin: 07/24/16 06:30 Dose: 50 ml Enoxaparin Sodium (Lovenox -) 40 mg SQ BID [facility] Last Admin: 08/02/16 22:00 Dose: 40 mg Norepinephrine Bitartrate 8, (000 mcg/ Dextrose) 500 mls @ 18.75 mls/hr IV TITR [facility]; 5 MCG/MIN PRN Reason: Protocol Last Titration: 07/29/16 19:00 Dose: 0 mcg/min Meropenem 1 gm/ Dextrose 100 mls @ 100 mls/hr IVPB Q8H-IV [facility] PRN Reason: Protocol Last Admin: 08/03/16 01:52 Dose: 100 mls/hr Clindamycin Phosphate (Cleocin 600 Mg Premix Ivpb -) 50 mls @ 100 mls/hr IVPB Q8H-IV [facility] Last Admin: 08/03/16 01:51 Dose: 100 mls/hr Fentanyl 500 mcg/ Dextrose 100 mls @ 10 mls/hr IJ TITR [facility] PRN Reason: 50 MCG/HR Last Admin: 08/03/16 01:52 Dose: 20 mls/hr Dopamine HCl/Dextrose (Dopamine 400 Mg/D5w -) 250 mls @ 12.664 mls/hr IVPB TITR [facility]; 5 MCG/KG/MIN PRN Reason: Protocol Last Admin: 08/03/16 01:53 Dose: 25.328 mls/hr Fluconazole (Diflucan 200 Mg/Ns Premixed Ivpb -) 100 mls @ 100 mls/hr IVPB DAILY [facility] Last Admin: 08/02/16 12:58 Dose: 100 mls/hr Fat Emulsion Intravenous (Intralipid -) 250 mls @ 20.833 mls/hr IV DAILY@2200 [facility] Last Admin: 08/02/16 22:00 Dose: 20.833 mls/hr Famotidine/Sodium Chloride (Pepcid 20 Mg Premixed Ivpb -) 50 mls @ 100 mls/hr IVPB BID [facility] Last Admin: 08/02/16 22:00 Dose: 100 mls/hr Potassium Chloride 30 meq/Magnesium Sulfate 2.46 gm/Insulin Human Regular 10 units / Folic Acid 1 mg/ Thiamine HCl 100 mg/ Multivitamins/Minerals 10 ml/ Sterile Water/Amino Acids/ Dextrose 1,200 mls @ 41.667 mls/hr IVPB DAILY@1600 [facility] Last Admin: 08/02/16 17:37 Dose: 41.667 mls/hr Insulin Aspart (Novolog Vial Sliding Scale -) 1 vial SQ ACHS [facility] PRN Reason: Protocol Last Admin: 08/03/16 06:21 Dose: 8 unit Silver Sulfadiazine (Silvadene -) 1 applic TP DAILY [facility] Last Admin: 08/02/16 10:07 Dose: 1 applic A/P 65 year old woman with PMhx of hypertension, hypercholesterolemia, diabetes mellitus who presented with Abd pain and found to have perforated Abd viscus s/ p emergent Sx now with Septic Shock, ZAHIRA and Metabolic Acidosis. #Sepsis/Perforated Abd Viscus/Abscess continue supportive care as per ICU and Sx pressers/IVF as needed to maintain MAP and CVP #Acute Renal failure, now resolved Renal function stable keep MAP > 65 #Hypomagnesemia/Hypophospahtemia on TPN with Mg Give additional IV Mg and PHos today #Anemia s/p transfusion with good response Prognosis guarded Cyril Tubbs DO
[2016-08-03 07:48] LABS: ARTERIAL BLD GAS O2 SATURATION 97.7 % (90-98.9); ARTERIAL BLOOD GAS BASE EXCESS 0.9 meq/l (-2-2); ARTERIAL BLOOD GAS HCO3 24.5 meq/L (22-26); ARTERIAL BLOOD GAS PO2 91.7 mmHg (80-100); ARTERIAL BLOOD GAS pH 7.43 (7.35-7.45)
[2016-08-03 07:55] LABS: ALLENS TEST POSITIVE; ART PUNCT SITE RIGHT BRACHIAL; LPM/O2% 40%; MECH. VENT. ESPRIT; PT. ON O2? YES; TYPE OF O2 MEC.VENT; VENT RATE 14; VT/PRESS 400
[2016-08-03] MEDS: ENOXAPARIN NA (PORCINE) 40 MG/0.4 ML DISP.SYRIN SQ SCH ×2 (09:11→21:26)
[2016-08-03] MEDS: CHLORHEXIDINE GLUCONATE 0.12% 15ML CUP MM SCH ×2 (09:12→21:26)
[2016-08-03] MEDS: SILVER SULFADIAZINE 1% TOP CREAM 50 GM JAR TP SCH (09:12)
[2016-08-03] MEDS: FAMOTIDINE 20 MG/50 ML IVPB 50 ML IVPB SCH ×2 (09:15→21:26)
--- NOTE | 2016-08-03 09:21 | PN ---
Progress Note (short form) - Note Progress Note: Patient seen and examined in the ICU. Currently on Dopamine 8 mcq for hemodynamic support. Arousable and able to follow some simple commands. Line of demarcation appear stable from yesterday. CXR : Some slight improvement in the right base otherwise no change / ETT in position Intake & Output 07/31/16 08/01/16 08/02/16 08/03/16 23:59 23:59 23:59 23:59 Intake Total 48681 3453 2864.7 916 Output Total 900 1500 1850 800 Balance 74350 1953 1014.7 116 Weight 151 lb 3.794 oz 158 lb 8.198 oz 158 lb 3.2 oz 158 lb 4.8 oz Last Vital Signs Temp Pulse Resp BP Pulse Ox 99.6 F 108 H 16 120/82 97 08/03/16 06:00 08/03/16 06:00 08/03/16 08:36 08/03/16 06:00 08/03/16 08:36 Active Medications Acetaminophen (Ofirmev Injection -) 1,000 mg IVPB Q6H PRN PRN Reason: FEVER Last Admin: 07/30/16 09:35 Dose: 1,000 mg Albuterol/Ipratropium (Duoneb -) 1 amp NEB Q6H PRN PRN Reason: SHORTNESS OF BREATH Last Admin: 07/31/16 03:50 Dose: 1 amp Chlorhexidine Gluconate (Hibiclens For Decolonization -) 1 applic TP HS [facility] Last Admin: 08/02/16 22:00 Dose: 1 applic Chlorhexidine Gluconate (Peridex -) 15 ml MM BID [facility] Last Admin: 08/03/16 09:12 Dose: 15 ml Dextrose (D50w (Vial) -) 50 ml IVPUSH Q15M PRN PRN Reason: BLOOD SUGAR < 60 Last Admin: 07/24/16 06:30 Dose: 50 ml Enoxaparin Sodium (Lovenox -) 40 mg SQ BID [facility] Last Admin: 08/03/16 09:11 Dose: 40 mg Norepinephrine Bitartrate 8, (000 mcg/ Dextrose) 500 mls @ 18.75 mls/hr IV TITR [facility]; 5 MCG/MIN PRN Reason: Protocol Last Titration: 07/29/16 19:00 Dose: 0 mcg/min Meropenem 1 gm/ Dextrose 100 mls @ 100 mls/hr IVPB Q8H-IV [facility] PRN Reason: Protocol Last Admin: 08/03/16 09:11 Dose: 100 mls/hr Clindamycin Phosphate (Cleocin 600 Mg Premix Ivpb -) 50 mls @ 100 mls/hr IVPB Q8H-IV [facility] Last Admin: 08/03/16 09:11 Dose: 100 mls/hr Fentanyl 500 mcg/ Dextrose 100 mls @ 10 mls/hr IJ TITR [facility] PRN Reason: 50 MCG/HR Last Admin: 08/03/16 08:49 Dose: 20 mls/hr Dopamine HCl/Dextrose (Dopamine 400 Mg/D5w -) 250 mls @ 12.664 mls/hr IVPB TITR [facility]; 5 MCG/KG/MIN PRN Reason: Protocol Last Admin: 08/03/16 01:53 Dose: 25.328 mls/hr Fluconazole (Diflucan 200 Mg/Ns Premixed Ivpb -) 100 mls @ 100 mls/hr IVPB DAILY [facility] Last Admin: 08/02/16 12:58 Dose: 100 mls/hr Fat Emulsion Intravenous (Intralipid -) 250 mls @ 20.833 mls/hr IV DAILY@2200 [facility] Last Admin: 08/02/16 22:00 Dose: 20.833 mls/hr Famotidine/Sodium Chloride (Pepcid 20 Mg Premixed Ivpb -) 50 mls @ 100 mls/hr IVPB BID [facility] Last Admin: 08/03/16 09:15 Dose: 100 mls/hr Potassium Chloride 30 meq/Magnesium Sulfate 2.46 gm/Insulin Human Regular 10 units / Folic Acid 1 mg/ Thiamine HCl 100 mg/ Multivitamins/Minerals 10 ml/ Sterile Water/Amino Acids/ Dextrose 1,200 mls @ 41.667 mls/hr IVPB DAILY@1600 [facility] Last Admin: 08/02/16 17:37 Dose: 41.667 mls/hr Potassium Phosphate 15 mm/ (Dextrose) 255 mls @ 62.5 mls/hr IVPB ONCE ONE Stop: 08/03/16 11:19 Insulin Aspart (Novolog Vial Sliding Scale -) 1 vial SQ ACHS [facility] PRN Reason: Protocol Last Admin: 08/03/16 06:21 Dose: 8 unit Silver Sulfadiazine (Silvadene -) 1 applic TP DAILY [facility] Last Admin: 08/03/16 09:12 Dose: 1 applic Gen: intubated, arousable Heart: RRR Lung: scattered rhonchi Abd: soft, dressings intact Ext: cold, hypoperfused, blackened Laboratory Results - last 24 hr 07/30/16 08/02/16 08/02/16 07:35 05:40 12:45 WBC RBC Hgb Hct MCV MCHC RDW Plt Count MPV Neutrophils % 80.0 Lymphocytes % 10.0 D Monocytes % 9.0 D Band Neutrophils 1.0 D Nucleated RBCs 1 H Smudge Cells Few Platelet Estimate Adequate Platelet Comment No clotting detected Polychromasia 1+ Hypochromic-Microcytic 2+ Poikilocytosis 1+ Anisocytosis 1+ Puncture Site ABG pH ABG pCO2 at Pt Temp ABG pO2 at Pt Temp ABG HCO3 ABG O2 Sat (Measured) ABG O2 Content ABG Base Excess Heber Test O2 Delivery Device Oxygen Flow Rate Vent Mode Vent Rate Mechanical Rate PEEP Pressure Support Vent Sodium Potassium Chloride Carbon Dioxide Anion Gap BUN Creatinine Creat Clearance w eGFR POC Glucometer Random Glucose Calcium Phosphorus Magnesium Total Bilirubin AST ALT Alkaline Phosphatase Total Protein Albumin Blood Type O POSITIVE O POSITIVE Antibody Screen Negative Negative Crossmatch See Detail See Detail 08/02/16 08/03/16 08/03/16 16:49 05:20 05:20 WBC 13.8 H RBC 3.45 L D Hgb 10.1 L D Hct 30.0 L D MCV 87.0 MCHC 33.5 RDW 15.2 Plt Count 395 MPV 8.8 Neutrophils % Y Lymphocytes % Y Monocytes % Band Neutrophils Nucleated RBCs Smudge Cells Platelet Estimate Platelet Comment Polychromasia Hypochromic-Microcytic Poikilocytosis Anisocytosis Puncture Site ABG pH ABG pCO2 at Pt Temp ABG pO2 at Pt Temp ABG HCO3 ABG O2 Sat (Measured) ABG O2 Content ABG Base Excess Heber Test O2 Delivery Device Oxygen Flow Rate Vent Mode Vent Rate Mechanical Rate PEEP Pressure Support Vent Sodium 140 Potassium 4.8 Chloride 105 Carbon Dioxide 25 Anion Gap 10 BUN 17 Creatinine 0.4 L Creat Clearance w eGFR > 60 POC Glucometer [phone] Random Glucose 290 H Calcium 7.5 L Phosphorus 2.2 L Magnesium 1.7 L Total Bilirubin 0.5 D AST 30 ALT 25 Alkaline Phosphatase 102 D Total Protein 4.7 L Albumin 0.9 L Blood Type Antibody Screen Crossmatch 08/03/16 08/03/16 05:21 07:45 WBC RBC Hgb Hct MCV MCHC RDW Plt Count MPV Neutrophils % Lymphocytes % Monocytes % Band Neutrophils Nucleated RBCs Smudge Cells Platelet Estimate Platelet Comment Polychromasia Hypochromic-Microcytic Poikilocytosis Anisocytosis Puncture Site Right brachial ABG pH 7.43 ABG pCO2 at Pt Temp 38.4 ABG pO2 at Pt Temp 91.7 ABG HCO3 24.5 ABG O2 Sat (Measured) 97.7 ABG O2 Content 13.7 L ABG Base Excess 0.9 Heber Test Positive O2 Delivery Device Mec.vent Oxygen Flow Rate 40% Vent Mode A/c Vent Rate 14 Mechanical Rate Esprit PEEP 5.0 Pressure Support Vent 400 Sodium Potassium Chloride Carbon Dioxide Anion Gap BUN Creatinine Creat Clearance w eGFR POC Glucometer [phone] Random Glucose Calcium Phosphorus Magnesium Total Bilirubin AST ALT Alkaline Phosphatase Total Protein Albumin Blood Type Antibody Screen Crossmatch ASSESSMENT AND PLAN: Perforated Duodenal Ulcer Peritonitis s/p ex-lap/omental patch repair 07/16 Acute Respiratory Failure Septic Shock Acute Kidney Injury Lactic Acidosis Leukopenia/Thrombocytopenia likely from sepsis DM Encephalopathy -> etiology to be determined - ABX per ID - IVF - Ideally would want to minimize pressors use -> At this point her persistent hypotension warrants continued use of pressors -> Dopamine. I previously this in discussed in detail with her family that if they want full/aggressive treatment. - monitor urine output, creatinine - taper FiO2 to keep Spo2 >90% - transfuse platelets if <20K, cryo if fibrinogen <100 - DVT/GI prophylaxis - continue ICU monitoring - Not an ideal candidate for wean given overall condition and persistent shock - New TPN orders written - prognosis appears grave. Family has indicated that Crystal would not want to be maintained on chronic ventilatory support, which I suspect will be her best case scenario. Dr Dubon critical care time spent in reviewing chart, evaluating patient and formulating plan 40 min
[2016-08-03 09:31] LABS: METAMYELOCYTE 1 % (0-2)
[2016-08-03 09:32] LABS: PLATELET ESTIMATE ADEQUATE (NORMAL); SMUDGE CELLS 1
--- NOTE | 2016-08-03 11:42 | PN ---
Progress Note, Physician History of Present Illness: patient opening eyes to verbal commands still requiring pressors critical no specific change still bp not stable - Current Medication List Current Medications: Active Medications Acetaminophen (Ofirmev Injection -) 1,000 mg IVPB Q6H PRN PRN Reason: FEVER Last Admin: 07/30/16 09:35 Dose: 1,000 mg Albuterol/Ipratropium (Duoneb -) 1 amp NEB Q6H PRN PRN Reason: SHORTNESS OF BREATH Last Admin: 07/31/16 03:50 Dose: 1 amp Chlorhexidine Gluconate (Hibiclens For Decolonization -) 1 applic TP HS [facility] Last Admin: 08/02/16 22:00 Dose: 1 applic Chlorhexidine Gluconate (Peridex -) 15 ml MM BID [facility] Last Admin: 08/03/16 09:12 Dose: 15 ml Dextrose (D50w (Vial) -) 50 ml IVPUSH Q15M PRN PRN Reason: BLOOD SUGAR < 60 Last Admin: 07/24/16 06:30 Dose: 50 ml Enoxaparin Sodium (Lovenox -) 40 mg SQ BID [facility] Last Admin: 08/03/16 09:11 Dose: 40 mg Norepinephrine Bitartrate 8, (000 mcg/ Dextrose) 500 mls @ 18.75 mls/hr IV TITR [facility]; 5 MCG/MIN PRN Reason: Protocol Last Titration: 07/29/16 19:00 Dose: 0 mcg/min Meropenem 1 gm/ Dextrose 100 mls @ 100 mls/hr IVPB Q8H-IV [facility] PRN Reason: Protocol Last Admin: 08/03/16 09:11 Dose: 100 mls/hr Clindamycin Phosphate (Cleocin 600 Mg Premix Ivpb -) 50 mls @ 100 mls/hr IVPB Q8H-IV [facility] Last Admin: 08/03/16 09:11 Dose: 100 mls/hr Fentanyl 500 mcg/ Dextrose 100 mls @ 10 mls/hr IJ TITR [facility] PRN Reason: 50 MCG/HR Last Admin: 08/03/16 08:49 Dose: 20 mls/hr Dopamine HCl/Dextrose (Dopamine 400 Mg/D5w -) 250 mls @ 12.664 mls/hr IVPB TITR [facility]; 5 MCG/KG/MIN PRN Reason: Protocol Last Admin: 08/03/16 01:53 Dose: 25.328 mls/hr Fluconazole (Diflucan 200 Mg/Ns Premixed Ivpb -) 100 mls @ 100 mls/hr IVPB DAILY [facility] Last Admin: 08/02/16 12:58 Dose: 100 mls/hr Fat Emulsion Intravenous (Intralipid -) 250 mls @ 20.833 mls/hr IV DAILY@2200 [facility] Last Admin: 08/02/16 22:00 Dose: 20.833 mls/hr Famotidine/Sodium Chloride (Pepcid 20 Mg Premixed Ivpb -) 50 mls @ 100 mls/hr IVPB BID [facility] Last Admin: 08/03/16 09:15 Dose: 100 mls/hr Potassium Chloride 30 meq/Magnesium Sulfate 2.46 gm/Insulin Human Regular 10 units / Folic Acid 1 mg/ Thiamine HCl 100 mg/ Multivitamins/Minerals 10 ml/ Sterile Water/Amino Acids/ Dextrose 1,200 mls @ 41.667 mls/hr IVPB DAILY@1600 [facility] Last Admin: 08/02/16 17:37 Dose: 41.667 mls/hr Insulin Aspart (Novolog Vial Sliding Scale -) 1 vial SQ ACHS [facility] PRN Reason: Protocol Last Admin: 08/03/16 06:21 Dose: 8 unit Silver Sulfadiazine (Silvadene -) 1 applic TP DAILY [facility] Last Admin: 08/03/16 09:12 Dose: 1 applic - Objective Vital Signs: Vital Signs Temperature 99.6 F 08/03/16 06:00 Pulse Rate 108 H 08/03/16 06:00 Respiratory Rate 18 08/03/16 10:01 Blood Pressure 120/82 08/03/16 06:00 O2 Sat by Pulse Oximetry (%) 97 08/03/16 08:36 Constitutional: Yes: Other Cardiovascular: Yes: Regular Rate and Rhythm Respiratory: Yes: Intubated, Mechanically Ventilated Musculoskeletal: Yes: Other Extremities: Yes: Other (gangrene of the tip of the fingers) Integumentary: Yes: Other Wound/Incision: Yes: Other Neurological: Yes: Alert Labs: CBC, BMP 08/03/16 05:20 08/03/16 05:20 INR, PTT INR 1.36 (0.82-1.09) H 07/29/16 05:30 Fibrinogen > 700.0 mg/dL (238-498) H 07/31/16 05:40 Assessment/Plan Problem List - Problems (1) Abdominal pain Code(s): R10.9 - UNSPECIFIED ABDOMINAL PAIN Qualifiers: Qualified Code(s): R10.33 - Periumbilical pain (2) Perforated abdominal viscus Code(s): [id number] - (3) Perforated viscus Code(s): R19.8 - OTH SYMPTOMS AND SIGNS INVOLVING THE DGSTV SYS AND ABDOMEN (4) Hypertension Code(s): I10 - ESSENTIAL (PRIMARY) HYPERTENSION Qualifiers: Qualified Code(s): I10 - Essential (primary) hypertension lactic acidosis fevers generalized swelling gangrene of the tip of the fingers noted plan contiues to be critical continues to be on pressors further plan needs to me made rest as per icu cc time 40 min
[2016-08-03] MEDS ORDERED: PT OWN MED DRAWER 7, Y5N ONE ×2 (13:15→20:36)
[2016-08-03] MEDS: FLUCONAZOLE 200 MG/NS 100 ML IVPB SCH (13:17)
--- NOTE | 2016-08-03 15:16 | PN ---
Progress Note, Physician Chief Complaint: Awake on verbal commands History of Present Illness: S/P exploratory lap and omantal patch repair of perforated duodenal ulcer - Current Medication List Current Medications: Active Medications Acetaminophen (Ofirmev Injection -) 1,000 mg IVPB Q6H PRN PRN Reason: FEVER Last Admin: 07/30/16 09:35 Dose: 1,000 mg Albuterol/Ipratropium (Duoneb -) 1 amp NEB Q6H PRN PRN Reason: SHORTNESS OF BREATH Last Admin: 07/31/16 03:50 Dose: 1 amp Chlorhexidine Gluconate (Hibiclens For Decolonization -) 1 applic TP HS AVERY Last Admin: 08/02/16 22:00 Dose: 1 applic Chlorhexidine Gluconate (Peridex -) 15 ml MM BID AVERY Last Admin: 08/03/16 09:12 Dose: 15 ml Dextrose (D50w (Vial) -) 50 ml IVPUSH Q15M PRN PRN Reason: BLOOD SUGAR < 60 Last Admin: 07/24/16 06:30 Dose: 50 ml Enoxaparin Sodium (Lovenox -) 40 mg SQ BID AVERY Last Admin: 08/03/16 09:11 Dose: 40 mg Norepinephrine Bitartrate 8, (000 mcg/ Dextrose) 500 mls @ 18.75 mls/hr IV TITR AVERY; 5 MCG/MIN PRN Reason: Protocol Last Titration: 07/29/16 19:00 Dose: 0 mcg/min Meropenem 1 gm/ Dextrose 100 mls @ 100 mls/hr IVPB Q8H-IV AVERY PRN Reason: Protocol Last Admin: 08/03/16 09:11 Dose: 100 mls/hr Clindamycin Phosphate (Cleocin 600 Mg Premix Ivpb -) 50 mls @ 100 mls/hr IVPB Q8H-IV AVERY Last Admin: 08/03/16 09:11 Dose: 100 mls/hr Fentanyl 500 mcg/ Dextrose 100 mls @ 10 mls/hr IJ TITR AVERY PRN Reason: 50 MCG/HR Last Admin: 08/03/16 14:55 Dose: 20 mls/hr Dopamine HCl/Dextrose (Dopamine 400 Mg/D5w -) 250 mls @ 12.664 mls/hr IVPB TITR AVERY; 5 MCG/KG/MIN PRN Reason: Protocol Last Admin: 08/03/16 13:03 Dose: 20.262 mls/hr Fluconazole (Diflucan 200 Mg/Ns Premixed Ivpb -) 100 mls @ 100 mls/hr IVPB DAILY [facility] Last Admin: 08/03/16 13:17 Dose: 100 mls/hr Fat Emulsion Intravenous (Intralipid -) 250 mls @ 20.833 mls/hr IV DAILY@2200 [facility] Last Admin: 08/02/16 22:00 Dose: 20.833 mls/hr Famotidine/Sodium Chloride (Pepcid 20 Mg Premixed Ivpb -) 50 mls @ 100 mls/hr IVPB BID [facility] Last Admin: 08/03/16 09:15 Dose: 100 mls/hr Potassium Chloride 30 meq/Magnesium Sulfate 2.46 gm/Insulin Human Regular 10 units / Folic Acid 1 mg/ Thiamine HCl 100 mg/ Multivitamins/Minerals 10 ml/ Sterile Water/Amino Acids/ Dextrose 1,200 mls @ 41.667 mls/hr IVPB DAILY@1600 [facility] Last Admin: 08/02/16 17:37 Dose: 41.667 mls/hr Sodium Phosphate 30 mm/Magnesium Sulfate 2 gm/Insulin Human Regular 10 units / Thiamine HCl 100 mg/Multivitamins/Minerals 10 ml/Sterile Water/ Amino Acids/ Dextrose 1,200 mls @ 41.667 mls/hr IV DAILY@1600 [facility] Insulin Aspart (Novolog Vial Sliding Scale -) 1 vial SQ ACHS [facility] PRN Reason: Protocol Last Admin: 08/03/16 13:12 Dose: 8 unit Silver Sulfadiazine (Silvadene -) 1 applic TP DAILY [facility] Last Admin: 08/03/16 09:12 Dose: 1 applic - Objective Vital Signs: Vital Signs Temperature 99.1 F 08/03/16 08:00 Pulse Rate 100 H 08/03/16 10:00 Respiratory Rate 17 08/03/16 14:27 Blood Pressure 118/66 08/03/16 10:00 O2 Sat by Pulse Oximetry (%) 97 08/03/16 08:36 Eyes: Yes: WNL HENT: Yes: WNL Neck: Yes: WNL Cardiovascular: Yes: Regular Rate and Rhythm Respiratory: Yes: Mechanically Ventilated Gastrointestinal: Yes: Hypoactive Bowel Sounds ...Rectal Exam: Yes: Deferred Genitourinary: Yes: Bacon Present Edema: No Labs: CBC, BMP 08/03/16 05:20 08/03/16 05:20 INR, PTT INR 1.36 (0.82-1.09) H 07/29/16 05:30 Fibrinogen > 700.0 mg/dL (238-498) H 07/31/16 05:40 Assessment/Plan continue ICU care
[2016-08-03] MEDS ORDERED: SODIUM PHOSPHATE IV SCH (16:00)
[2016-08-03] MEDS ORDERED: INSULIN REGULAR IV SCH (16:00)
[2016-08-03] MEDS ORDERED: MAGNESIUM SULFATE IV SCH (16:00)
[2016-08-03] MEDS ORDERED: [UNRECOGNIZED DRUG - OTHER] IV SCH (16:00)
--- NOTE | 2016-08-03 20:48 | PN ---
Progress Note, Physician - Current Medication List Current Medications: Active Medications Acetaminophen (Ofirmev Injection -) 1,000 mg IVPB Q6H PRN PRN Reason: FEVER Last Admin: 07/30/16 09:35 Dose: 1,000 mg Albuterol/Ipratropium (Duoneb -) 1 amp NEB Q6H PRN PRN Reason: SHORTNESS OF BREATH Last Admin: 07/31/16 03:50 Dose: 1 amp Chlorhexidine Gluconate (Hibiclens For Decolonization -) 1 applic TP HS AVERY Last Admin: 08/02/16 22:00 Dose: 1 applic Chlorhexidine Gluconate (Peridex -) 15 ml MM BID AVERY Last Admin: 08/03/16 09:12 Dose: 15 ml Dextrose (D50w (Vial) -) 50 ml IVPUSH Q15M PRN PRN Reason: BLOOD SUGAR < 60 Last Admin: 07/24/16 06:30 Dose: 50 ml Enoxaparin Sodium (Lovenox -) 40 mg SQ BID AVERY Last Admin: 08/03/16 09:11 Dose: 40 mg Norepinephrine Bitartrate 8, (000 mcg/ Dextrose) 500 mls @ 18.75 mls/hr IV TITR AVERY; 5 MCG/MIN PRN Reason: Protocol Last Titration: 07/29/16 19:00 Dose: 0 mcg/min Meropenem 1 gm/ Dextrose 100 mls @ 100 mls/hr IVPB Q8H-IV AVERY PRN Reason: Protocol Last Admin: 08/03/16 18:59 Dose: 100 mls/hr Clindamycin Phosphate (Cleocin 600 Mg Premix Ivpb -) 50 mls @ 100 mls/hr IVPB Q8H-IV AVERY Last Admin: 08/03/16 18:59 Dose: 100 mls/hr Fentanyl 500 mcg/ Dextrose 100 mls @ 10 mls/hr IJ TITR AVERY PRN Reason: 50 MCG/HR Last Admin: 08/03/16 20:31 Dose: 20 mls/hr Dopamine HCl/Dextrose (Dopamine 400 Mg/D5w -) 250 mls @ 12.664 mls/hr IVPB TITR AVERY; 5 MCG/KG/MIN PRN Reason: Protocol Last Admin: 08/03/16 13:03 Dose: 20.262 mls/hr Fluconazole (Diflucan 200 Mg/Ns Premixed Ivpb -) 100 mls @ 100 mls/hr IVPB DAILY [facility] Last Admin: 08/03/16 13:17 Dose: 100 mls/hr Fat Emulsion Intravenous (Intralipid -) 250 mls @ 20.833 mls/hr IV DAILY@2200 [facility] Last Admin: 08/02/16 22:00 Dose: 20.833 mls/hr Famotidine/Sodium Chloride (Pepcid 20 Mg Premixed Ivpb -) 50 mls @ 100 mls/hr IVPB BID [facility] Last Admin: 08/03/16 09:15 Dose: 100 mls/hr Sodium Phosphate 30 mm/Magnesium Sulfate 2 gm/Insulin Human Regular 10 units / Thiamine HCl 100 mg/Multivitamins/Minerals 10 ml/Sterile Water/ Amino Acids/ Dextrose 1,200 mls @ 41.667 mls/hr IV DAILY@1600 [facility] Last Admin: 08/03/16 19:00 Dose: 50 mls/hr Insulin Aspart (Novolog Vial Sliding Scale -) 1 vial SQ ACHS [facility] PRN Reason: Protocol Last Admin: 08/03/16 19:13 Dose: 6 unit Silver Sulfadiazine (Silvadene -) 1 applic TP DAILY [facility] Last Admin: 08/03/16 09:12 Dose: 1 applic - Objective Vital Signs: Vital Signs Temperature 99.8 F H 08/03/16 20:00 Pulse Rate 110 H 08/03/16 20:00 Respiratory Rate 16 08/03/16 20:00 Blood Pressure 95/48 08/03/16 20:00 O2 Sat by Pulse Oximetry (%) 97 08/03/16 08:36 Labs: CBC, BMP 08/03/16 05:20 08/03/16 05:20 INR, PTT INR 1.36 (0.82-1.09) H 07/29/16 05:30 Fibrinogen > 700.0 mg/dL (238-498) H 07/31/16 05:40 Problem List - Problems (1) Abdominal pain Code(s): R10.9 - UNSPECIFIED ABDOMINAL PAIN Qualifiers: Abdominal location: periumbilical Qualified Code(s): R10.33 - Periumbilical pain (2) Perforated abdominal viscus Code(s): [id number] - (3) Perforated viscus Code(s): R19.8 - OTH SYMPTOMS AND SIGNS INVOLVING THE DGSTV SYS AND ABDOMEN (4) Hypertension Code(s): I10 - ESSENTIAL (PRIMARY) HYPERTENSION Qualifiers: Hypertension type: essential hypertension Qualified Code(s): I10 - Essential (primary) hypertension Assessment/Plan Surgery: remains critical.. Entreocutaneous fistula with high output. Continue TPN, support. Antibiotics. Abdominal wound is clean
[2016-08-03] MEDS: CHLORHEXIDINE GLUCONATE 4% CLEANSER FOR DECOLONIZATION TP SCH (21:25)
[2016-08-03] MEDS: FAT EMULSIONS 250 ML IV SCH (21:25)
[2016-08-04] MEDS: MEROPENEM 1 GM in DEXTROSE 5%-WATER - 100 ML IVPB SCH ×3 (01:35→17:32)
[2016-08-04] MEDS: CLINDAMYCIN 600MG PREMIX IVPB 50 ML IVPB SCH ×3 (01:35→17:35)
[2016-08-04] MEDS: FENTANYL INJECTION 500 MCG in DEXTROSE 5%-WATER - 90 ML IJ SCH ×3 (01:35→18:35)
[2016-08-04 06:17] LABS: MCH 28.7 pg (25.7-33.7); MCHC 32.9 g/dl (32.0-36.0); MEAN CELL VOLUME 87.2 fl (80-96); MEAN PLT VOLUME 8.4 fl (7.5-11.1); PLATELET COUNT 398 K/MM3 (134-434); RDW 14.8 % (11.6-15.6); WHITE BLOOD COUNT 15.1 K/mm3 (4.0-10.0)
[2016-08-04] MEDS: INSULIN SLIDING SCALE (NOVOLOG) 1 VIAL SQ SCH ×4 (06:23→21:48)
[2016-08-04 06:45] LABS: ANION GAP 8 (8-16); BILIRUBIN,TOTAL 0.5 mg/dL (0.2-1.0); CALCIUM 7.7 mg/dL (8.5-10.1); CO2 27 mmol/L (21-32); CREATININE 0.3 mg/dL (0.55-1.02); GLUCOSE,RANDOM 241 mg/dL (74-106); MAGNESIUM 1.5 mg/dL (1.8-2.4); PHOSPHOROUS 3.5 mg/dL (2.5-4.9); SGOT/AST 24 U/L (15-37); SGPT/ALT 20 U/L (12-78); TOT PROT 4.6 g/dl (6.4-8.2)
[2016-08-04 06:46] LABS: ALK PHOS 111 U/L (45-117)
[2016-08-04 07:05] LABS: ALBUMIN 0.8 g/dl (3.4-5.0)
--- NOTE | 2016-08-04 07:36 | PN ---
Physical Exam: SUBJECTIVE: Patient seen and examined. lethargic today. opens eyes to verbal and tactile stimuli but not following commands. OBJECTIVE: Vital Signs Period Temp Pulse Resp BP Sys/Major Pulse Ox Last 24 Hr 99.1 F-99.8 F 89-110 14-26 95-132/46-86 97-98 HEAD: Bitemporal wasting EYES: sluggish reaction to light b/l with constricted pupils, sclera anicteric. ENT: NGT in place, oropharynx with ET in place. dry mucous membranes. NECK: Trachea midline. RIJ site cdi, LIJ site ttp, no discharge or erythema LUNGS: diffuse rales, few crackles, anterior bilaterally, no wheezes, quiet at bases. HEART: regular rate/rhythm, S1, S2 without murmur, rub or gallop. ABDOMEN: colectomy placed over sump pump tube insertion site with surrounding erythema/firmness, soft abdomen in left/lower/upper abdomen no discharge from midline inscion, hyperpigmented skin at staple incision sites , incision is healing, open ulcers throughout abdomen with scant serous discharge, covered in xeroform EXTREMITIES: absent pulses in DP/radial b/l, acrocyanosis extending from fingernails to mid-forearm, trace edema in b/l hands and arms. left hand: gangrene at fingertips upto to DIP joint in 2nd-5th digits, surrounding erythema on palm and dorsum of hand with mottling. right hand: gangrene at fingertips upto DIP joint in 1st - 5th digits acrocyanosis in toes, marked in 5th digits b/l with skin mottling upto ankles. trace +edema. scant fluid filled vesicles at medial ankles b/l. SKIN: multiple open ulcers (abdomen, inner thighs, neck and arms), erythema on anterior left thigh and medial right thigh, ulcer posterior/lateral right thigh. NEUROLOGICAL: responsive to verbal stimuli. grimaces when feet and abdomen are touched, retracts to painful stimuli. lethargic, easily arousable but does not stay awake Laboratory Results - last 24 hr 08/03/16 08/03/16 08/03/16 05:20 07:45 13:09 WBC RBC Hgb Hct MCV MCHC RDW Plt Count MPV Neutrophils % 69.0 Lymphocytes % 12.0 Monocytes % 8.0 Eosinophils % 2.0 D Band Neutrophils 8.0 D Metamyelocytes 1 Nucleated RBCs 1 H Smudge Cells 1 Platelet Estimate Adequate Platelet Comment No clumping noted Puncture Site Right brachial ABG pH 7.43 ABG pCO2 at Pt Temp 38.4 ABG pO2 at Pt Temp 91.7 ABG HCO3 24.5 ABG O2 Sat (Measured) 97.7 ABG O2 Content 13.7 L ABG Base Excess 0.9 Heber Test Positive O2 Delivery Device Mec.vent Oxygen Flow Rate 40% Vent Mode A/c Vent Rate 14 Mechanical Rate Esprit PEEP 5.0 Pressure Support Vent 400 Sodium Potassium Chloride Carbon Dioxide Anion Gap BUN Creatinine Creat Clearance w eGFR POC Glucometer [phone] Random Glucose Calcium Phosphorus Magnesium Total Bilirubin AST ALT Alkaline Phosphatase Total Protein Albumin 08/03/16 08/03/16 08/04/16 19:10 22:35 05:19 WBC RBC Hgb Hct MCV MCHC RDW Plt Count MPV Neutrophils % Lymphocytes % Monocytes % Eosinophils % Band Neutrophils Metamyelocytes Nucleated RBCs Smudge Cells Platelet Estimate Platelet Comment Puncture Site ABG pH ABG pCO2 at Pt Temp ABG pO2 at Pt Temp ABG HCO3 ABG O2 Sat (Measured) ABG O2 Content ABG Base Excess Heber Test O2 Delivery Device Oxygen Flow Rate Vent Mode Vent Rate Mechanical Rate PEEP Pressure Support Vent Sodium Potassium Chloride Carbon Dioxide Anion Gap BUN Creatinine Creat Clearance w eGFR POC Glucometer [phone] [phone] Random Glucose Calcium Phosphorus Magnesium Total Bilirubin AST ALT Alkaline Phosphatase Total Protein Albumin 08/04/16 08/04/16 05:20 05:20 WBC 15.1 H RBC 3.13 L Hgb 9.0 L D Hct 27.3 L MCV 87.2 MCHC 32.9 RDW 14.8 Plt Count 398 MPV 8.4 Neutrophils % Y Lymphocytes % Y Monocytes % Eosinophils % Band Neutrophils Metamyelocytes Nucleated RBCs Smudge Cells Platelet Estimate Platelet Comment Puncture Site ABG pH ABG pCO2 at Pt Temp ABG pO2 at Pt Temp ABG HCO3 ABG O2 Sat (Measured) ABG O2 Content ABG Base Excess Heber Test O2 Delivery Device Oxygen Flow Rate Vent Mode Vent Rate Mechanical Rate PEEP Pressure Support Vent Sodium 137 Potassium 4.5 Chloride 102 Carbon Dioxide 27 Anion Gap 8 BUN 19 H Creatinine 0.3 L D Creat Clearance w eGFR > 60 POC Glucometer Random Glucose 241 H Calcium 7.7 L Phosphorus 3.5 D Magnesium 1.5 L Total Bilirubin 0.5 AST 24 ALT 20 Alkaline Phosphatase 111 Total Protein 4.6 L Albumin 0.8 L Active Medications Generic Name Dose Route Start Last Admin Trade Name Brennanq PRN Reason Stop Dose Admin Acetaminophen 1,000 mg 07/19/16 15:43 07/30/16 09:35 Ofirmev Injection - IVPB 1,000 mg Q6H PRN Administration FEVER Albuterol/Ipratropium 1 amp 07/24/16 06:00 07/31/16 03:50 Duoneb - NEB 1 amp Q6H PRN Administration SHORTNESS OF BREATH Chlorhexidine Gluconate 1 applic 07/16/16 22:00 08/03/16 21:25 Hibiclens For Decolonization - TP 1 applic HS AVERY Administration Chlorhexidine Gluconate 15 ml 07/21/16 10:00 08/03/16 21:26 Peridex - MM 15 ml BID AVERY Administration Dextrose 50 ml 07/24/16 07:18 07/24/16 06:30 D50w (Vial) - IVPUSH 50 ml Q15M PRN Administration BLOOD SUGAR < 60 Norepinephrine Bitartrate 8, 500 mls @ 18.75 mls/hr 07/16/16 23:15 07/29/16 19: 00 000 mcg/ Dextrose IV 0 mcg/min TITR AVERY Titration Protocol 5 MCG/MIN Meropenem 1 gm/ Dextrose 100 mls @ 100 mls/hr 07/19/16 18:00 08/04/16 01:35 IVPB 100 mls/hr Q8H-IV AVERY Administration Protocol Clindamycin Phosphate 50 mls @ 100 mls/hr 07/22/16 14:15 08/04/16 01:35 Cleocin 600 Mg Premix Ivpb - IVPB 100 mls/hr Q8H-IV AVERY Administration Fentanyl 500 mcg/ Dextrose 100 mls @ 10 mls/hr 07/28/16 12:00 08/04/16 01:35 IJ 20 mls/hr TITR AVERY Administration 50 MCG/HR Dopamine HCl/Dextrose 250 mls @ 12.664 mls/hr 07/29/16 12:15 08/04/16 06:24 Dopamine 400 Mg/D5w - IVPB 0 mcg/kg/min TITR AVERY Titration Protocol 5 MCG/KG/MIN Fluconazole 100 mls @ 100 mls/hr 07/30/16 10:00 08/03/16 13:17 Diflucan 200 Mg/Ns Premixed Ivpb - IVPB 100 mls/hr DAILY AVERY Administration Fat Emulsion Intravenous 250 mls @ 20.833 mls/hr 07/31/16 22:00 08/03/16 21:25 Intralipid - IV 20.833 mls/hr DAILY@2200 AVERY Administration Famotidine/Sodium Chloride 50 mls @ 100 mls/hr 07/31/16 22:00 08/03/16 21:26 Pepcid 20 Mg Premixed Ivpb - IVPB 100 mls/hr BID AVERY Administration Sodium Phosphate 30 mm/ 1,200 mls @ 41.667 mls/hr 08/03/16 16:00 08/03/16 19:00 Magnesium Sulfate 2 gm/ IV 50 mls/hr Insulin Human Regular 10 units DAILY@1600 AVERY Administration / Thiamine HCl 100 mg/ Multivitamins/Minerals 10 ml/ Sterile Water/ Amino Acids/ Dextrose Insulin Aspart 1 vial 07/17/16 16:30 08/04/16 06:23 Novolog Vial Sliding Scale - SQ 6 unit ACHS AVERY Administration Protocol Silver Sulfadiazine 1 applic 07/24/16 10:00 08/03/16 09:12 Silvadene - TP 1 applic DAILY AVERY Administration ASSESSMENT/PLAN: 65 yr old woman with HTN, dementia, NIDDM II admitted to ICU with septic shock secondary to perforated duodenal ulcer and peritonitis, 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 - pain control with fentanyl and morphine Cardivascular Hypotensive - off pressors - dopamine dc'd at 6am today --(avoid levophed as it could lead to worsening of the acrocyanosis, consider titrating dopamine up and/or intiating phenylephrine for additional pressure support) - urine output: 2L/24hr - maintain goal MAP>65, current MAP 75 - limit fluids, as currently edematous, MAP at goal, expect her to be able to manage fluid balance - monitor urine output - right IJ central line placed 07/31 Pulmonary endotracheal tube placed 07/16 fio2 40%, sat 100%, RR 14 titrate to maintain spo2 >90% - pt RR 30 - patient is not able to tolerate weaning trials. - not a candidate for weaning - trach placement with Dr. Louise, possibly tomorrow, consent obtained from , placed in chart Gastrointestinal; s/p repair perforated duodenal ulcer 07/16, - Meropenem IV 1gm q8hr - day 16 - Cleocin - 600gm q8h - day 13 - Diflucan 200mg IVPB daily, discussed with Dr. Burgess, continue for now - Day 19 - pepcid ivpb 20g daily - enterocutaenous fistula with colostomy bag -- stop tube feeds, bowel rest and monitor output - placed on TPN (day 5) Renal - Bacon placed in ED pre-op 07/16 - consult: Dr. Tubbs Infectious Disease - consulted - meropenem + cleocin + diflucan - tylenol IVPB 1gm q6hr for fevers + ice packs at axilla, neck, groin. avoid cooling blanket on extremities and on feet. -- fevers possible from multiple sources including gangrene, skin ulcers and fistula Endocrine NIDDM II - D5 Iv push 1 amp when BGM <60 - BGM q6hrs w/ goal 140-180, NISS. Hematologic - cephalic vein SVT and right IJ clot, likley iatrogenic from central line placement - txment with lovenox BID 40sq daily - thrombocytopenia likely due to sepsis, r/o DIC - daily fibrinogen levels/coags , if fibrinogen level <100 consider cryoppt - goal to maintain plts>20,000 - trend H/H, transfuse of hgb <7.0, - consult Dr. Church Neurologic AMS secondary to prolonged sedative effect or hypoperfusion causing anoxic brain injury Dr. Allen consulted for further neurological evaluation; rec MRI, however not transportable on vent, continue medical management. lethargic today. Dementia Diet: TPN DVT- lovenox BID 40 sq Visit type - Emergency Visit Emergency Visit: No - New Patient This patient is new to me today: No - Critical Care Critical Care patient: Yes Total Critical Care Time (in minutes): 38 Critical Care Statement: The care of this patient involved high complexity decision making to prevent further life threatening deterioration of the patient 's condition and/or to evalute & treat vital organ system(s) failure or risk of failure.
[2016-08-04 07:51] LABS: ARTERIAL BLD GAS O2 SATURATION 97.3 % (90-98.9); ARTERIAL BLOOD GAS BASE EXCESS 1.8 meq/l (-2-2); ARTERIAL BLOOD GAS HCO3 24.7 meq/L (22-26); ARTERIAL BLOOD GAS PO2 85.4 mmHg (80-100); ARTERIAL BLOOD GAS pH 7.48 (7.35-7.45)
[2016-08-04 08:19] LABS: ALLENS TEST POSITIVE; ART PUNCT SITE RIGHT BRACHIAL; LPM/O2% 40; PT. ON O2? YES; TYPE OF O2 VENT; VT/PRESS 400
[2016-08-04 08:20] LABS: VENT RATE 14
--- NOTE | 2016-08-04 08:38 | PN ---
Progress Note (short form) - Note Progress Note: Renal Follow up for ZAHIRA/Metabolic acidosis Pt seen and examined in the ICU sedated on the Vent FiO2 40% Off pressers good urine output low grade temp this am Vital Signs Temperature 100.3 F H 08/04/16 08:00 Pulse Rate 97 H 08/04/16 08:00 Respiratory Rate 19 08/04/16 08:00 Blood Pressure 94/66 08/04/16 08:00 O2 Sat by Pulse Oximetry (%) 96 08/04/16 08:00 Intake & Output 08/01/16 08/02/16 08/03/16 08/04/16 23:59 23:59 23:59 23:59 Intake Total 3453 2864.7 2580 950 Output Total 1500 1850 2000 500 Balance 1953 1014.7 580 450 Weight 158 lb 8.198 oz 158 lb 3.2 oz 158 lb 4.8 oz 159 lb 11.2 oz Gen: on Vent, NAD CVS: RRR, No M/R Lungs: Dec BS b/l lung andino Abd: Dressing on Abd, Ostomy in place, Ext: No edema, cyanosis/gangrne of both feet and hands CBC, BMP 08/04/16 05:20 08/04/16 05:20 Laboratory Tests 08/04/16 05:20 Calcium 7.7 L Phosphorus 3.5 D Magnesium 1.5 L Current Medications Acetaminophen (Ofirmev Injection -) 1,000 mg IVPB Q6H PRN PRN Reason: FEVER Last Admin: 07/30/16 09:35 Dose: 1,000 mg Albuterol/Ipratropium (Duoneb -) 1 amp NEB Q6H PRN PRN Reason: SHORTNESS OF BREATH Last Admin: 07/31/16 03:50 Dose: 1 amp Chlorhexidine Gluconate (Hibiclens For Decolonization -) 1 applic TP HS AVERY Last Admin: 08/03/16 21:25 Dose: 1 applic Chlorhexidine Gluconate (Peridex -) 15 ml MM BID AVERY Last Admin: 08/03/16 21:26 Dose: 15 ml Dextrose (D50w (Vial) -) 50 ml IVPUSH Q15M PRN PRN Reason: BLOOD SUGAR < 60 Last Admin: 07/24/16 06:30 Dose: 50 ml Norepinephrine Bitartrate 8, (000 mcg/ Dextrose) 500 mls @ 18.75 mls/hr IV TITR AVERY; 5 MCG/MIN PRN Reason: Protocol Last Titration: 07/29/16 19:00 Dose: 0 mcg/min Meropenem 1 gm/ Dextrose 100 mls @ 100 mls/hr IVPB Q8H-IV AVERY PRN Reason: Protocol Last Admin: 08/04/16 01:35 Dose: 100 mls/hr Clindamycin Phosphate (Cleocin 600 Mg Premix Ivpb -) 50 mls @ 100 mls/hr IVPB Q8H-IV AVERY Last Admin: 08/04/16 01:35 Dose: 100 mls/hr Fentanyl 500 mcg/ Dextrose 100 mls @ 10 mls/hr IJ TITR AVERY PRN Reason: 50 MCG/HR Last Admin: 08/04/16 01:35 Dose: 20 mls/hr Dopamine HCl/Dextrose (Dopamine 400 Mg/D5w -) 250 mls @ 12.664 mls/hr IVPB TITR AVERY; 5 MCG/KG/MIN PRN Reason: Protocol Last Titration: 08/04/16 06:24 Dose: 0 mcg/kg/min Fluconazole (Diflucan 200 Mg/Ns Premixed Ivpb -) 100 mls @ 100 mls/hr IVPB DAILY [facility] Last Admin: 08/03/16 13:17 Dose: 100 mls/hr Fat Emulsion Intravenous (Intralipid -) 250 mls @ 20.833 mls/hr IV DAILY@2200 [facility] Last Admin: 08/03/16 21:25 Dose: 20.833 mls/hr Famotidine/Sodium Chloride (Pepcid 20 Mg Premixed Ivpb -) 50 mls @ 100 mls/hr IVPB BID [facility] Last Admin: 08/03/16 21:26 Dose: 100 mls/hr Sodium Phosphate 30 mm/Magnesium Sulfate 2 gm/Insulin Human Regular 10 units / Thiamine HCl 100 mg/Multivitamins/Minerals 10 ml/Sterile Water/ Amino Acids/ Dextrose 1,200 mls @ 41.667 mls/hr IV DAILY@1600 [facility] Last Admin: 08/03/16 19:00 Dose: 50 mls/hr Insulin Aspart (Novolog Vial Sliding Scale -) 1 vial SQ ACHS AVERY PRN Reason: Protocol Last Admin: 08/04/16 06:23 Dose: 6 unit Silver Sulfadiazine (Silvadene -) 1 applic TP DAILY AVERY Last Admin: 08/03/16 09:12 Dose: 1 applic A/P 65 year old woman with PMhx of hypertension, hypercholesterolemia, diabetes mellitus who presented with Abd pain and found to have perforated Abd viscus s/ p emergent Sx now with Septic Shock, ZAHIRA and Metabolic Acidosis. #Sepsis/Perforated Abd Viscus/Abscess off pressers continue abx as per ID ICU monitoring Vent support surgical follow up #Acute Renal failure, now resolved renal function stable and pt with good urine output #Hypomagnesemia/Hypophospahtemia on TPN with Mg Supplement Mg #Anemia Trend CBC transfuse as per ICU protocol #Distal Ischemia off pressers supportive care prognosis guarded Cyril Tubbs DO
[2016-08-04] MEDS ORDERED: PT OWN MED DRAWER 7, Y5N ONE ×2 (09:07→23:47)
[2016-08-04] MEDS: CHLORHEXIDINE GLUCONATE 0.12% 15ML CUP MM SCH ×2 (09:12→21:22)
[2016-08-04] MEDS: FLUCONAZOLE 200 MG/NS 100 ML IVPB SCH (09:33)
[2016-08-04] MEDS: FAMOTIDINE 20 MG/50 ML IVPB 50 ML IVPB SCH ×2 (09:34→21:20)
[2016-08-04] MEDS: SILVER SULFADIAZINE 1% TOP CREAM 50 GM JAR TP SCH (09:36)
--- NOTE | 2016-08-04 10:40 | PN ---
Teaching Attending Note Name of Resident: Trevin Terrazas ATTENDING PHYSICIAN STATEMENT I saw and evaluated the patient. I reviewed the resident's note and discussed the case with the resident. I agree with the resident's findings and plan as documented. SUBJECTIVE: Patient seen and examined in the ICU. Currently off Dopamine from 6AM. Lethargic but arousable and able to follow some simple commands. Lines of demarcation appear stable from yesterday. CXR : minimal change / ETT in position Intake & Output 08/01/16 08/02/16 08/03/16 08/04/16 23:59 23:59 23:59 23:59 Intake Total 3453 2864.7 2580 950 Output Total 1500 1850 2000 500 Balance 1953 1014.7 580 450 Weight 158 lb 8.198 oz 158 lb 3.2 oz 158 lb 4.8 oz 159 lb 11.2 oz Last Vital Signs Temp Pulse Resp BP Pulse Ox 100.2 F H 98 H 20 103/65 98 08/04/16 10:00 08/04/16 10:00 08/04/16 10:00 08/04/16 10:00 08/04/16 09:00 Active Medications Acetaminophen (Ofirmev Injection -) 1,000 mg IVPB Q6H PRN PRN Reason: FEVER Last Admin: 07/30/16 09:35 Dose: 1,000 mg Albuterol/Ipratropium (Duoneb -) 1 amp NEB Q6H PRN PRN Reason: SHORTNESS OF BREATH Last Admin: 07/31/16 03:50 Dose: 1 amp Chlorhexidine Gluconate (Hibiclens For Decolonization -) 1 applic TP HS AVERY Last Admin: 08/03/16 21:25 Dose: 1 applic Chlorhexidine Gluconate (Peridex -) 15 ml MM BID [facility] Last Admin: 08/04/16 09:12 Dose: 15 ml Dextrose (D50w (Vial) -) 50 ml IVPUSH Q15M PRN PRN Reason: BLOOD SUGAR < 60 Last Admin: 07/24/16 06:30 Dose: 50 ml Enoxaparin Sodium (Lovenox -) 40 mg SQ BID AVERY Norepinephrine Bitartrate 8, (000 mcg/ Dextrose) 500 mls @ 18.75 mls/hr IV TITR AVERY; 5 MCG/MIN PRN Reason: Protocol Last Titration: 07/29/16 19:00 Dose: 0 mcg/min Meropenem 1 gm/ Dextrose 100 mls @ 100 mls/hr IVPB Q8H-IV [facility] PRN Reason: Protocol Last Admin: 08/04/16 09:33 Dose: 100 mls/hr Clindamycin Phosphate (Cleocin 600 Mg Premix Ivpb -) 50 mls @ 100 mls/hr IVPB Q8H-IV [facility] Last Admin: 08/04/16 09:09 Dose: 100 mls/hr Fentanyl 500 mcg/ Dextrose 100 mls @ 10 mls/hr IJ TITR [facility]ERY PRN Reason: 50 MCG/HR Last Admin: 08/04/16 01:35 Dose: 20 mls/hr Dopamine HCl/Dextrose (Dopamine 400 Mg/D5w -) 250 mls @ 12.664 mls/hr IVPB TITR AVERY; 5 MCG/KG/MIN PRN Reason: Protocol Last Titration: 08/04/16 06:24 Dose: 0 mcg/kg/min Fluconazole (Diflucan 200 Mg/Ns Premixed Ivpb -) 100 mls @ 100 mls/hr IVPB DAILY [facility] Last Admin: 08/04/16 09:33 Dose: 100 mls/hr Fat Emulsion Intravenous (Intralipid -) 250 mls @ 20.833 mls/hr IV DAILY@2200 [facility] Last Admin: 08/03/16 21:25 Dose: 20.833 mls/hr Famotidine/Sodium Chloride (Pepcid 20 Mg Premixed Ivpb -) 50 mls @ 100 mls/hr IVPB BID [facility] Last Admin: 08/04/16 09:34 Dose: 100 mls/hr Sodium Phosphate 30 mm/Magnesium Sulfate 2 gm/Insulin Human Regular 10 units / Thiamine HCl 100 mg/Multivitamins/Minerals 10 ml/Sterile Water/ Amino Acids/ Dextrose 1,200 mls @ 41.667 mls/hr IV DAILY@1600 [facility] Last Admin: 08/03/16 19:00 Dose: 50 mls/hr Insulin Aspart (Novolog Vial Sliding Scale -) 1 vial SQ ACHS [facility] PRN Reason: Protocol Last Admin: 08/04/16 06:23 Dose: 6 unit Silver Sulfadiazine (Silvadene -) 1 applic TP DAILY [facility] Last Admin: 08/04/16 09:36 Dose: 1 applic Gen: intubated, arousable Heart: RRR Lung: scattered rhonchi Abd: soft, dressings intact Ext: cold, hypoperfused, blackened Laboratory Results - last 24 hr 08/03/16 08/03/16 08/03/16 13:09 19:10 22:35 WBC RBC Hgb Hct MCV MCHC RDW Plt Count MPV Neutrophils % Lymphocytes % Puncture Site ABG pH ABG pCO2 at Pt Temp ABG pO2 at Pt Temp ABG HCO3 ABG O2 Sat (Measured) ABG O2 Content ABG Base Excess Heber Test O2 Delivery Device Oxygen Flow Rate Vent Mode Vent Rate PEEP Pressure Support Vent Sodium Potassium Chloride Carbon Dioxide Anion Gap BUN Creatinine Creat Clearance w eGFR POC Glucometer 341.69848 263.60975 233.67384 Random Glucose Calcium Phosphorus Magnesium Total Bilirubin AST ALT Alkaline Phosphatase Total Protein Albumin 08/04/16 08/04/16 08/04/16 05:19 05:20 05:20 WBC 15.1 H RBC 3.13 L Hgb 9.0 L D Hct 27.3 L MCV 87.2 MCHC 32.9 RDW 14.8 Plt Count 398 MPV 8.4 Neutrophils % Y Lymphocytes % Y Puncture Site ABG pH ABG pCO2 at Pt Temp ABG pO2 at Pt Temp ABG HCO3 ABG O2 Sat (Measured) ABG O2 Content ABG Base Excess Heber Test O2 Delivery Device Oxygen Flow Rate Vent Mode Vent Rate PEEP Pressure Support Vent Sodium 137 Potassium 4.5 Chloride 102 Carbon Dioxide 27 Anion Gap 8 BUN 19 H Creatinine 0.3 L D Creat Clearance w eGFR > 60 POC Glucometer 274.40160 Random Glucose 241 H Calcium 7.7 L Phosphorus 3.5 D Magnesium 1.5 L Total Bilirubin 0.5 AST 24 ALT 20 Alkaline Phosphatase 111 Total Protein 4.6 L Albumin 0.8 L 08/04/16 08:00 WBC RBC Hgb Hct MCV MCHC RDW Plt Count MPV Neutrophils % Lymphocytes % Puncture Site Right brachial ABG pH 7.48 H ABG pCO2 at Pt Temp 33.9 L ABG pO2 at Pt Temp 85.4 ABG HCO3 24.7 ABG O2 Sat (Measured) 97.3 ABG O2 Content 12.9 L ABG Base Excess 1.8 Heber Test Positive O2 Delivery Device Vent Oxygen Flow Rate 40 Vent Mode A/c Vent Rate 14 PEEP 5.0 Pressure Support Vent 400 Sodium Potassium Chloride Carbon Dioxide Anion Gap BUN Creatinine Creat Clearance w eGFR POC Glucometer Random Glucose Calcium Phosphorus Magnesium Total Bilirubin AST ALT Alkaline Phosphatase Total Protein Albumin ASSESSMENT AND PLAN: Perforated Duodenal Ulcer Peritonitis s/p ex-lap/omental patch repair 07/16 Acute Respiratory Failure Septic Shock Acute Kidney Injury Lactic Acidosis Leukopenia/Thrombocytopenia likely from sepsis DM Encephalopathy -> etiology to be determined - ABX per ID - IVF - monitor urine output, creatinine - taper FiO2 to keep Spo2 >90% - transfuse platelets if <20K, cryo if fibrinogen <100 - DVT/GI prophylaxis - continue ICU monitoring - Not an ideal candidate for wean given overall condition and persistent shock - New TPN orders written - prognosis appears grave. Family has indicated that Crystal would not want to be maintained on chronic ventilatory support, which I suspect will be her best case scenario. Dr Dubon critical care time spent in reviewing chart, evaluating patient and formulating plan 40 min
[2016-08-04] MEDS: ENOXAPARIN NA (PORCINE) 40 MG/0.4 ML DISP.SYRIN SQ SCH ×2 (11:30→21:21)
[2016-08-04 12:37] LABS: METAMYELOCYTE 2 % (0-2)
[2016-08-04 12:38] LABS: PLATELET ESTIMATE ADEQUATE (NORMAL)
--- NOTE | 2016-08-04 12:47 | PN ---
Progress Note, Physician Chief Complaint: On respirator History of Present Illness: Septic shock S/P omental patch for perforated duodenum Has fistula ,on hyperal - Current Medication List Current Medications: Active Medications Acetaminophen (Ofirmev Injection -) 1,000 mg IVPB Q6H PRN PRN Reason: FEVER Last Admin: 07/30/16 09:35 Dose: 1,000 mg Albuterol/Ipratropium (Duoneb -) 1 amp NEB Q6H PRN PRN Reason: SHORTNESS OF BREATH Last Admin: 07/31/16 03:50 Dose: 1 amp Chlorhexidine Gluconate (Hibiclens For Decolonization -) 1 applic TP HS AVERY Last Admin: 08/03/16 21:25 Dose: 1 applic Chlorhexidine Gluconate (Peridex -) 15 ml MM BID [facility] Last Admin: 08/04/16 09:12 Dose: 15 ml Dextrose (D50w (Vial) -) 50 ml IVPUSH Q15M PRN PRN Reason: BLOOD SUGAR < 60 Last Admin: 07/24/16 06:30 Dose: 50 ml Enoxaparin Sodium (Lovenox -) 40 mg SQ BID [facility] Last Admin: 08/04/16 11:30 Dose: 40 mg Norepinephrine Bitartrate 8, (000 mcg/ Dextrose) 500 mls @ 18.75 mls/hr IV TITR AVERY; 5 MCG/MIN PRN Reason: Protocol Last Titration: 07/29/16 19:00 Dose: 0 mcg/min Meropenem 1 gm/ Dextrose 100 mls @ 100 mls/hr IVPB Q8H-IV [facility] PRN Reason: Protocol Last Admin: 08/04/16 09:33 Dose: 100 mls/hr Clindamycin Phosphate (Cleocin 600 Mg Premix Ivpb -) 50 mls @ 100 mls/hr IVPB Q8H-IV [facility] Last Admin: 08/04/16 09:09 Dose: 100 mls/hr Fentanyl 500 mcg/ Dextrose 100 mls @ 10 mls/hr IJ TITR [facility]ERY PRN Reason: 50 MCG/HR Last Admin: 08/04/16 12:08 Dose: 20 mls/hr Dopamine HCl/Dextrose (Dopamine 400 Mg/D5w -) 250 mls @ 12.664 mls/hr IVPB TITR AVERY; 5 MCG/KG/MIN PRN Reason: Protocol Last Titration: 08/04/16 06:24 Dose: 0 mcg/kg/min Fluconazole (Diflucan 200 Mg/Ns Premixed Ivpb -) 100 mls @ 100 mls/hr IVPB DAILY [facility] Last Admin: 08/04/16 09:33 Dose: 100 mls/hr Fat Emulsion Intravenous (Intralipid -) 250 mls @ 20.833 mls/hr IV DAILY@2200 [facility] Last Admin: 08/03/16 21:25 Dose: 20.833 mls/hr Famotidine/Sodium Chloride (Pepcid 20 Mg Premixed Ivpb -) 50 mls @ 100 mls/hr IVPB BID [facility] Last Admin: 08/04/16 09:34 Dose: 100 mls/hr Sodium Phosphate 30 mm/Magnesium Sulfate 2 gm/Insulin Human Regular 10 units / Thiamine HCl 100 mg/Multivitamins/Minerals 10 ml/Sterile Water/ Amino Acids/ Dextrose 1,200 mls @ 41.667 mls/hr IV DAILY@1600 [facility] Last Admin: 08/03/16 19:00 Dose: 50 mls/hr Insulin Aspart (Novolog Vial Sliding Scale -) 1 vial SQ ACHS [facility] PRN Reason: Protocol Last Admin: 08/04/16 11:41 Dose: 4 unit Silver Sulfadiazine (Silvadene -) 1 applic TP DAILY [facility] Last Admin: 08/04/16 09:36 Dose: 1 applic - Objective Vital Signs: Vital Signs Temperature 100.5 F H 08/04/16 12:00 Pulse Rate 109 H 08/04/16 12:00 Respiratory Rate 22 08/04/16 12:01 Blood Pressure 137/67 08/04/16 12:00 O2 Sat by Pulse Oximetry (%) 100 08/04/16 11:37 Constitutional: Yes: Moderate Distress Eyes: Yes: WNL HENT: Yes: WNL Neck: Yes: Supple Cardiovascular: Yes: Tachycardia Respiratory: Yes: Mechanically Ventilated Gastrointestinal: Yes: Soft, Other (Fistula draining) Neurological: Yes: Confusion Labs: CBC, BMP 08/04/16 05:20 08/04/16 05:20 INR, PTT INR 1.36 (0.82-1.09) H 07/29/16 05:30 Fibrinogen > 700.0 mg/dL (238-498) H 07/31/16 05:40 Assessment/Plan Continue trt as per ICU attending
[2016-08-04] MEDS: DOPAMINE 400 MG/D5W - 250 ML IVPB SCH (16:06)
[2016-08-04] MEDS: INSULIN REGULAR IV SCH (16:07)
[2016-08-04] MEDS: [UNRECOGNIZED DRUG - OTHER] IV SCH (16:07)
[2016-08-04] MEDS: MAGNESIUM SULFATE IV SCH (16:07)
[2016-08-04] MEDS: SODIUM PHOSPHATE IV SCH (16:07)
--- NOTE | 2016-08-04 16:44 | PN ---
Progress Note, Physician History of Present Illness: no new issues/events status quo on pressors fevers better - Current Medication List Current Medications: Active Medications Acetaminophen (Ofirmev Injection -) 1,000 mg IVPB Q6H PRN PRN Reason: FEVER Last Admin: 07/30/16 09:35 Dose: 1,000 mg Albuterol/Ipratropium (Duoneb -) 1 amp NEB Q6H PRN PRN Reason: SHORTNESS OF BREATH Last Admin: 07/31/16 03:50 Dose: 1 amp Chlorhexidine Gluconate (Hibiclens For Decolonization -) 1 applic TP HS [facility] Last Admin: 08/03/16 21:25 Dose: 1 applic Chlorhexidine Gluconate (Peridex -) 15 ml MM BID [facility] Last Admin: 08/04/16 09:12 Dose: 15 ml Dextrose (D50w (Vial) -) 50 ml IVPUSH Q15M PRN PRN Reason: BLOOD SUGAR < 60 Last Admin: 07/24/16 06:30 Dose: 50 ml Enoxaparin Sodium (Lovenox -) 40 mg SQ BID [facility] Last Admin: 08/04/16 11:30 Dose: 40 mg Norepinephrine Bitartrate 8, (000 mcg/ Dextrose) 500 mls @ 18.75 mls/hr IV TITR AVERY; 5 MCG/MIN PRN Reason: Protocol Last Titration: 07/29/16 19:00 Dose: 0 mcg/min Meropenem 1 gm/ Dextrose 100 mls @ 100 mls/hr IVPB Q8H-IV [facility] PRN Reason: Protocol Last Admin: 08/04/16 09:33 Dose: 100 mls/hr Clindamycin Phosphate (Cleocin 600 Mg Premix Ivpb -) 50 mls @ 100 mls/hr IVPB Q8H-IV [facility] Last Admin: 08/04/16 09:09 Dose: 100 mls/hr Fentanyl 500 mcg/ Dextrose 100 mls @ 10 mls/hr IJ TITR [facility]ERY PRN Reason: 50 MCG/HR Last Admin: 08/04/16 12:08 Dose: 20 mls/hr Dopamine HCl/Dextrose (Dopamine 400 Mg/D5w -) 250 mls @ 12.664 mls/hr IVPB TITR AVERY; 5 MCG/KG/MIN PRN Reason: Protocol Last Admin: 08/04/16 16:06 Dose: Not Given Fluconazole (Diflucan 200 Mg/Ns Premixed Ivpb -) 100 mls @ 100 mls/hr IVPB DAILY [facility] Last Admin: 08/04/16 09:33 Dose: 100 mls/hr Fat Emulsion Intravenous (Intralipid -) 250 mls @ 20.833 mls/hr IV DAILY@2200 [facility] Last Admin: 08/03/16 21:25 Dose: 20.833 mls/hr Famotidine/Sodium Chloride (Pepcid 20 Mg Premixed Ivpb -) 50 mls @ 100 mls/hr IVPB BID [facility] Last Admin: 08/04/16 09:34 Dose: 100 mls/hr Sodium Phosphate 15 mm/Magnesium Sulfate 4 gm/Insulin Human Regular 20 units / Thiamine HCl 100 mg/Multivitamins/Minerals 10 ml/Sodium Chloride 40 meq/Chromium /Copper/Manganese/Seleni/Zn 1 ml/ Sterile Water/Amino Acids/ Dextrose 1,200 mls @ 50 mls/hr IV DAILY@1600 [facility] Last Admin: 08/04/16 16:07 Dose: 50 mls/hr Insulin Aspart (Novolog Vial Sliding Scale -) 1 vial SQ ACHS [facility] PRN Reason: Protocol Last Admin: 08/04/16 16:08 Dose: 6 unit Silver Sulfadiazine (Silvadene -) 1 applic TP DAILY [facility] Last Admin: 08/04/16 09:36 Dose: 1 applic - Objective Vital Signs: Vital Signs Temperature 100.5 F H 08/04/16 15:04 Pulse Rate 100 H 08/04/16 15:04 Respiratory Rate 23 08/04/16 15:04 Blood Pressure 115/64 08/04/16 15:04 O2 Sat by Pulse Oximetry (%) 100 08/04/16 11:37 Constitutional: Yes: Other Cardiovascular: Yes: Regular Rate and Rhythm Respiratory: Yes: Intubated, Mechanically Ventilated Gastrointestinal: Yes: Soft Genitourinary: Yes: Bacon Present Musculoskeletal: Yes: Other Extremities: Yes: Other (finger tip gangrene) Neurological: Yes: Alert, Other Psychiatric: Yes: Other Labs: CBC, BMP 08/04/16 05:20 08/04/16 05:20 INR, PTT INR 1.36 (0.82-1.09) H 07/29/16 05:30 Fibrinogen > 700.0 mg/dL (238-498) H 07/31/16 05:40 Assessment/Plan Problem List - Problems (1) Abdominal pain Code(s): R10.9 - UNSPECIFIED ABDOMINAL PAIN Qualifiers: Qualified Code(s): R10.33 - Periumbilical pain (2) Perforated abdominal viscus Code(s): PWI0785 - (3) Perforated viscus Code(s): R19.8 - OTH SYMPTOMS AND SIGNS INVOLVING THE DGSTV SYS AND ABDOMEN (4) Hypertension Code(s): I10 - ESSENTIAL (PRIMARY) HYPERTENSION Qualifiers: Qualified Code(s): I10 - Essential (primary) hypertension lactic acidosis fevers generalized swelling gangrene of the tip of the fingers noted cx from the wound noted plan contiues to be critical continues to be on pressors further plan needs to me made rest as per icu will add levofloxacillin to the regimen cc time 40 min
[2016-08-04] MEDS: LEVOFLOXACIN 750 MG IVPB 150 ML IVPB SCH (17:35)
[2016-08-04] MEDS: CHLORHEXIDINE GLUCONATE 4% CLEANSER FOR DECOLONIZATION TP SCH (21:20)
[2016-08-04] MEDS: FAT EMULSIONS 250 ML IV SCH (21:22)
[2016-08-05] MEDS: MEROPENEM 1 GM in DEXTROSE 5%-WATER - 100 ML IVPB SCH ×3 (01:04→17:25)
[2016-08-05] MEDS: CLINDAMYCIN 600MG PREMIX IVPB 50 ML IVPB SCH ×3 (01:04→17:25)
[2016-08-05] MEDS: INSULIN SLIDING SCALE (NOVOLOG) 1 VIAL SQ SCH ×4 (06:15→23:00)
[2016-08-05 06:24] LABS: BASOPHIL 0.8 % (0-2.0); EOSINOPHIL 1.7 % (0-4.5); MCH 28.6 pg (25.7-33.7); MCHC 32.7 g/dl (32.0-36.0); MEAN CELL VOLUME 87.5 fl (80-96); MEAN PLT VOLUME 8.6 fl (7.5-11.1); NEUTROPHILS 82.1 % (42.8-82.8); PLATELET COUNT 433 K/MM3 (134-434); RDW 14.3 % (11.6-15.6); WHITE BLOOD COUNT 14.8 K/mm3 (4.0-10.0)
[2016-08-05 06:52] LABS: MAGNESIUM 1.8 mg/dL (1.8-2.4); PHOSPHOROUS 3.6 mg/dL (2.5-4.9)
[2016-08-05 06:54] LABS: BILIRUBIN,DIRECT 0.2 mg/dL (0.0-0.2); BILIRUBIN,TOTAL 0.4 mg/dL (0.2-1.0); CALCIUM 7.8 mg/dL (8.5-10.1); COCKROFT - GAULT 204.051; CREATININE 0.3 mg/dL (0.55-1.02); TOT PROT 4.7 g/dl (6.4-8.2)
[2016-08-05 06:56] LABS: ALBUMIN 0.9 g/dl (3.4-5.0)
--- NOTE | 2016-08-05 07:28 | PN ---
Physical Exam: SUBJECTIVE: Patient seen and examined opens eyes to verbal and tactile stimuli. grimaces when abdomen is touched. lethargic OBJECTIVE: Vital Signs Period Temp Pulse Resp BP Sys/Major Pulse Ox Last 24 Hr 99.1 F-100.5 F 84-109 18-27 86-137/45-67 96-100 HEAD: Bitemporal wasting EYES: sluggish reaction to light b/l with constricted pupils, sclera anicteric. ENT: NGT in place, oropharynx with ET in place. dry mucous membranes. NECK: Trachea midline. RIJ site cdi - no discharge or erythema LUNGS: diffuse rales and rhonchi, anterior bilaterally, no wheezes, quiet at bases. HEART: regular rate/rhythm, S1, S2 without murmur, rub or gallop. ABDOMEN: colectomy placed over sump pump tube insertion site with surrounding erythema/firmness, soft abdomen in left/lower/upper abdomen no discharge from midline inscion, hyperpigmented skin at staple incision sites , incision is healing, open ulcers throughout abdomen with scant serous discharge, covered in xeroform EXTREMITIES: absent pulses in DP/radial b/l, acrocyanosis extending from fingernails to mid-forearm, trace edema in b/l hands and arms. left hand: gangrene at fingertips upto to DIP joint in 2nd-5th digits, surrounding erythema on palm and dorsum of hand with mottling. right hand: gangrene at fingertips upto DIP joint in 1st - 5th digits no edema in legs. acrocyanosis in toes, marked in 5th digits b/l with skin mottling upto ankles. trace +edema. scant fluid filled vesicles at medial ankles b/l. SKIN: skin weeping throughout, multiple open ulcers (abdomen, inner thighs, neck and arms), erythema on anterior left thigh and medial right thigh, ulcer posterior/lateral right thigh. skin sloughing on left dorsum of hand. NEUROLOGICAL: responsive to verbal stimuli. grimaces when feet and abdomen are touched, lethargic, easily arousable but does not stay awake. is not making eye contact/tracking or moving extremities. Laboratory Results - last 24 hr 08/04/16 08/04/16 08/04/16 05:20 08:00 11:37 WBC RBC Hgb Hct MCV MCHC RDW Plt Count MPV Neutrophils % 80.0 Lymphocytes % 9.0 D Monocytes % 7.0 Eosinophils % Basophils % 1.0 Metamyelocytes 2 D Myelocytes 1 Differential Comment Manual diff done Platelet Estimate Adequate Puncture Site Right brachial ABG pH 7.48 H ABG pCO2 at Pt Temp 33.9 L ABG pO2 at Pt Temp 85.4 ABG HCO3 24.7 ABG O2 Sat (Measured) 97.3 ABG O2 Content 12.9 L ABG Base Excess 1.8 Heber Test Positive O2 Delivery Device Vent Oxygen Flow Rate 40 Vent Mode A/c Vent Rate 14 PEEP 5.0 Pressure Support Vent 400 Sodium Potassium Chloride Carbon Dioxide Anion Gap BUN Creatinine POC Glucometer [phone] Random Glucose Calcium Phosphorus Magnesium Total Bilirubin Direct Bilirubin AST ALT Alkaline Phosphatase Total Protein Albumin Triglycerides 08/04/16 08/04/16 08/05/16 15:57 21:34 05:30 WBC RBC Hgb Hct MCV MCHC RDW Plt Count MPV Neutrophils % Lymphocytes % Monocytes % Eosinophils % Basophils % Metamyelocytes Myelocytes Differential Comment Platelet Estimate Puncture Site ABG pH ABG pCO2 at Pt Temp ABG pO2 at Pt Temp ABG HCO3 ABG O2 Sat (Measured) ABG O2 Content ABG Base Excess Heber Test O2 Delivery Device Oxygen Flow Rate Vent Mode Vent Rate PEEP Pressure Support Vent Sodium Potassium Chloride Carbon Dioxide Anion Gap BUN Creatinine POC Glucometer 252.73891 283.26592 Random Glucose Calcium Phosphorus 3.6 Magnesium 1.8 Total Bilirubin Direct Bilirubin AST ALT Alkaline Phosphatase Total Protein Albumin Triglycerides 08/05/16 08/05/16 05:30 05:30 WBC 14.8 H RBC 2.96 L Hgb 8.5 L Hct 25.9 L MCV 87.5 MCHC 32.7 RDW 14.3 Plt Count 433 MPV 8.6 Neutrophils % 82.1 Lymphocytes % 6.8 L D Monocytes % 8.6 Eosinophils % 1.7 Basophils % 0.8 Metamyelocytes Myelocytes Differential Comment Platelet Estimate Puncture Site ABG pH ABG pCO2 at Pt Temp ABG pO2 at Pt Temp ABG HCO3 ABG O2 Sat (Measured) ABG O2 Content ABG Base Excess Heber Test O2 Delivery Device Oxygen Flow Rate Vent Mode Vent Rate PEEP Pressure Support Vent Sodium 137 Potassium 4.1 Chloride 101 Carbon Dioxide 26 Anion Gap 10 BUN 22 H Creatinine 0.3 L POC Glucometer Random Glucose 171 H D Calcium 7.8 L Phosphorus Magnesium Total Bilirubin 0.4 Direct Bilirubin 0.2 D AST 27 ALT 20 Alkaline Phosphatase 124 H Total Protein 4.7 L Albumin 0.9 L Triglycerides 215 H Active Medications Generic Name Dose Route Start Last Admin Trade Name Freq PRN Reason Stop Dose Admin Acetaminophen 1,000 mg 07/19/16 15:43 07/30/16 09:35 Ofirmev Injection - IVPB 1,000 mg Q6H PRN Administration FEVER Albuterol/Ipratropium 1 amp 07/24/16 06:00 07/31/16 03:50 Duoneb - NEB 1 amp Q6H PRN Administration SHORTNESS OF BREATH Chlorhexidine Gluconate 1 applic 07/16/16 22:00 08/04/16 21:20 Hibiclens For Decolonization - TP 1 applic HS AVERY Administration Chlorhexidine Gluconate 15 ml 07/21/16 10:00 08/04/16 21:22 Peridex - MM 15 ml BID [facility] Administration Dextrose 50 ml 07/24/16 07:18 07/24/16 06:30 D50w (Vial) - IVPUSH 50 ml Q15M PRN Administration BLOOD SUGAR < 60 Enoxaparin Sodium 40 mg 08/04/16 10:15 08/04/16 21:21 Lovenox - SQ 40 mg BID [facility] Administration Meropenem 1 gm/ Dextrose 100 mls @ 100 mls/hr 07/19/16 18:00 08/05/16 01:04 IVPB 100 mls/hr Q8H-IV [facility] Administration Protocol Clindamycin Phosphate 50 mls @ 100 mls/hr 07/22/16 14:15 08/05/16 01:04 Cleocin 600 Mg Premix Ivpb - IVPB 100 mls/hr Q8H-IV [facility] Administration Fentanyl 500 mcg/ Dextrose 100 mls @ 10 mls/hr 07/28/16 12:00 08/04/16 18:35 IJ 20 mls/hr TITR AVERY Administration 50 MCG/HR Dopamine HCl/Dextrose 250 mls @ 12.664 mls/hr 07/29/16 12:15 08/04/16 16:06 Dopamine 400 Mg/D5w - IVPB Not Given TITR [facility] Protocol 5 MCG/KG/MIN Fluconazole 100 mls @ 100 mls/hr 07/30/16 10:00 08/04/16 09:33 Diflucan 200 Mg/Ns Premixed Ivpb - IVPB 100 mls/hr DAILY [facility] Administration Fat Emulsion Intravenous 250 mls @ 20.833 mls/hr 07/31/16 22:00 08/04/16 21:22 Intralipid - IV 20.833 mls/hr DAILY@2200 [facility] Administration Famotidine/Sodium Chloride 50 mls @ 100 mls/hr 07/31/16 22:00 08/04/16 21:20 Pepcid 20 Mg Premixed Ivpb - IVPB 100 mls/hr BID [facility] Administration Sodium Phosphate 15 mm/ 1,200 mls @ 50 mls/hr 08/04/16 16:00 08/04/16 16:07 Magnesium Sulfate 4 gm/ IV 50 mls/hr Insulin Human Regular 20 units DAILY@1600 [facility] Administration / Thiamine HCl 100 mg/ Multivitamins/Minerals 10 ml/ Sodium Chloride 40 meq/ Chromium/Copper/Manganese/ Seleni/Zn 1 ml/ Sterile Water/ Amino Acids/ Dextrose Levofloxacin 150 mls @ 100 mls/hr 08/04/16 17:00 08/04/16 17:35 Levaquin 750 Mg Premixed Ivpb - IVPB 100 mls/hr DAILY [facility] Administration Insulin Aspart 1 vial 07/17/16 16:30 08/05/16 06:15 Novolog Vial Sliding Scale - SQ 2 unit ACHS [facility] Administration Protocol Silver Sulfadiazine 1 applic 07/24/16 10:00 08/04/16 09:36 Silvadene - TP 1 applic DAILY [facility] Administration Intake & Output 08/02/16 08/03/16 08/04/16 08/05/16 23:59 23:59 23:59 23:59 Intake Total 2864.7 2580 2290 1290 Output Total 1850 2000 1625 500 Balance 1014.7 580 665 790 Weight 158 lb 3.2 oz 158 lb 4.8 oz 159 lb 11.2 oz 156 lb 9.6 oz ASSESSMENT/PLAN: 65 yr old woman with HTN, dementia, NIDDM II admitted to ICU with septic shock secondary to perforated duodenal ulcer and peritonitis, 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 - pain control with fentanyl and versed, pt appeared agitated this afternoon with biting Cardivascular Hypotensive - off pressors - urine output: 1625/24hr - maintain goal MAP>65, current MAP 73 - limit fluids, MAP at goal, expect her to be able to manage fluid balance - monitor urine output - right IJ central line placed 07/31 Pulmonary endotracheal tube placed 07/16 fio2 40%, sat 100%, RR 14 titrate to maintain spo2 >90% - pt RR 21 - patient is not able to tolerate weaning trials. - not a candidate for weaning - discussed with Dr. Louise regarding trach placement, possibly this coming thursday , consent obtained from , placed in chart Gastrointestinal; s/p repair perforated duodenal ulcer 07/16, - Meropenem IV 1gm q8hr - day 17 - Cleocin - 600gm q8h - day 14 - Diflucan 200mg IVPB daily, discussed with Dr. Burgess, continue for now - Day 20 - Rocephin 750gm daily IVPB - Day 2 - pepcid ivpb 20g daily - enterocutaenous fistula with colostomy bag -- stop tube feeds, bowel rest and NG tube to wall suction, monitor output - placed on TPN (day 6) Renal - Bacon placed in ED pre-op 07/16 - consult: Dr. Tubbs Infectious Disease - consulted - meropenem + cleocin + diflucan + levofloxacin - tylenol IVPB 1gm q6hr for fevers + ice packs at axilla, neck, groin. avoid cooling blanket on extremities and on feet. -- fevers possible from multiple sources including gangrene, skin ulcers and fistula Endocrine NIDDM II - D5 Iv push 1 amp when BGM <60 - BGM q6hrs w/ goal 140-180, NISS. Hematologic - cephalic vein SVT and right IJ clot, likley iatrogenic from central line placement - txment with lovenox BID 40sq daily - thrombocytopenia likely due to sepsis, r/o DIC - daily fibrinogen levels/coags , if fibrinogen level <100 consider cryoppt - goal to maintain plts>20,000 - trend H/H, transfuse of hgb <7.0, - consult Dr. Church Neurologic AMS secondary to prolonged sedative effect or hypoperfusion causing anoxic brain injury Dr. Allen consulted for further neurological evaluation; rec MRI, however not transportable on vent, continue medical management. lethargic today. Dementia Diet: TPN DVT- lovenox BID 40 sq Visit type - Emergency Visit Emergency Visit: No - New Patient This patient is new to me today: No - Critical Care Critical Care patient: Yes Total Critical Care Time (in minutes): 37 Critical Care Statement: The care of this patient involved high complexity decision making to prevent further life threatening deterioration of the patient 's condition and/or to evalute & treat vital organ system(s) failure or risk of failure.
--- NOTE | 2016-08-05 09:51 | PN ---
Progress Note, Physician Chief Complaint: Has response to verbal commands - Current Medication List Current Medications: Active Medications Acetaminophen (Ofirmev Injection -) 1,000 mg IVPB Q6H PRN PRN Reason: FEVER Last Admin: 07/30/16 09:35 Dose: 1,000 mg Albuterol/Ipratropium (Duoneb -) 1 amp NEB Q6H PRN PRN Reason: SHORTNESS OF BREATH Last Admin: 07/31/16 03:50 Dose: 1 amp Chlorhexidine Gluconate (Hibiclens For Decolonization -) 1 applic TP HS [facility] Last Admin: 08/04/16 21:20 Dose: 1 applic Chlorhexidine Gluconate (Peridex -) 15 ml MM BID [facility] Last Admin: 08/04/16 21:22 Dose: 15 ml Dextrose (D50w (Vial) -) 50 ml IVPUSH Q15M PRN PRN Reason: BLOOD SUGAR < 60 Last Admin: 07/24/16 06:30 Dose: 50 ml Enoxaparin Sodium (Lovenox -) 40 mg SQ BID [facility] Last Admin: 08/04/16 21:21 Dose: 40 mg Meropenem 1 gm/ Dextrose 100 mls @ 100 mls/hr IVPB Q8H-IV [facility] PRN Reason: Protocol Last Admin: 08/05/16 01:04 Dose: 100 mls/hr Clindamycin Phosphate (Cleocin 600 Mg Premix Ivpb -) 50 mls @ 100 mls/hr IVPB Q8H-IV [facility] Last Admin: 08/05/16 01:04 Dose: 100 mls/hr Fentanyl 500 mcg/ Dextrose 100 mls @ 10 mls/hr IJ TITR [facility] PRN Reason: 50 MCG/HR Last Admin: 08/04/16 18:35 Dose: 20 mls/hr Dopamine HCl/Dextrose (Dopamine 400 Mg/D5w -) 250 mls @ 12.664 mls/hr IVPB TITR [facility]; 5 MCG/KG/MIN PRN Reason: Protocol Last Admin: 08/04/16 16:06 Dose: Not Given Fluconazole (Diflucan 200 Mg/Ns Premixed Ivpb -) 100 mls @ 100 mls/hr IVPB DAILY [facility] Last Admin: 08/04/16 09:33 Dose: 100 mls/hr Fat Emulsion Intravenous (Intralipid -) 250 mls @ 20.833 mls/hr IV DAILY@2200 [facility] Last Admin: 08/04/16 21:22 Dose: 20.833 mls/hr Famotidine/Sodium Chloride (Pepcid 20 Mg Premixed Ivpb -) 50 mls @ 100 mls/hr IVPB BID [facility] Last Admin: 08/04/16 21:20 Dose: 100 mls/hr Sodium Phosphate 15 mm/Magnesium Sulfate 4 gm/Insulin Human Regular 20 units / Thiamine HCl 100 mg/Multivitamins/Minerals 10 ml/Sodium Chloride 40 meq/Chromium /Copper/Manganese/Seleni/Zn 1 ml/ Sterile Water/Amino Acids/ Dextrose 1,200 mls @ 50 mls/hr IV DAILY@1600 [facility] Last Admin: 08/04/16 16:07 Dose: 50 mls/hr Levofloxacin (Levaquin 750 Mg Premixed Ivpb -) 150 mls @ 100 mls/hr IVPB DAILY [facility] Last Admin: 08/04/16 17:35 Dose: 100 mls/hr Insulin Aspart (Novolog Vial Sliding Scale -) 1 vial SQ ACHS [facility] PRN Reason: Protocol Last Admin: 08/05/16 06:15 Dose: 2 unit Silver Sulfadiazine (Silvadene -) 1 applic TP DAILY [facility] Last Admin: 08/04/16 09:36 Dose: 1 applic - Objective Vital Signs: Vital Signs Temperature 99.6 F 08/05/16 06:00 Pulse Rate 90 08/05/16 08:00 Respiratory Rate 19 08/05/16 08:00 Blood Pressure 107/46 08/05/16 08:00 O2 Sat by Pulse Oximetry (%) 97 08/04/16 21:00 Constitutional: Yes: Moderate Distress Eyes: Yes: WNL Neck: Yes: WNL Cardiovascular: Yes: WNL Respiratory: Yes: Mechanically Ventilated Gastrointestinal: Yes: Other (Has drining fistula) Genitourinary: Yes: Bacon Present Breast(s): Yes: WNL Musculoskeletal: Yes: Muscle Weakness Peripheral Pulses WNL: Yes Neurological: Yes: Oriented Labs: CBC, BMP 08/05/16 05:30 08/05/16 05:30 INR, PTT INR 1.36 (0.82-1.09) H 07/29/16 05:30 Fibrinogen > 700.0 mg/dL (238-498) H 05/25/17 05:40 Assessment/Plan Tracheostomy, will discuss with Dr Louise
[2016-08-05] MEDS: FLUCONAZOLE 200 MG/NS 100 ML IVPB SCH (09:55)
[2016-08-05] MEDS ORDERED: PT OWN MED DRAWER 7, Y5N ONE ×2 (10:07→17:24)
[2016-08-05] MEDS: ENOXAPARIN NA (PORCINE) 40 MG/0.4 ML DISP.SYRIN SQ SCH ×2 (10:10→21:56)
[2016-08-05] MEDS: FAMOTIDINE 20 MG/50 ML IVPB 50 ML IVPB SCH ×2 (10:11→21:56)
[2016-08-05] MEDS: LEVOFLOXACIN 750 MG IVPB 150 ML IVPB SCH (10:11)
[2016-08-05] MEDS: CHLORHEXIDINE GLUCONATE 0.12% 15ML CUP MM SCH ×2 (10:12→21:56)
[2016-08-05] MEDS: SILVER SULFADIAZINE 1% TOP CREAM 50 GM JAR TP SCH (10:13)
--- NOTE | 2016-08-05 10:55 | PN ---
Progress Note (short form) - Note Progress Note: Renal Follow up for ZAHIRA/Metabolic acidosis Pt seen and examined in the ICU sedated on the vent off pressers good urine output Vital Signs Temperature 99.6 F 08/05/16 06:00 Pulse Rate 92 H 08/05/16 10:00 Respiratory Rate 19 08/05/16 10:00 Blood Pressure 108/53 08/05/16 10:00 O2 Sat by Pulse Oximetry (%) 98 08/05/16 09:00 Intake & Output 08/02/16 08/03/16 08/04/16 08/05/16 23:59 23:59 23:59 23:59 Intake Total 2864.7 2580 2290 1290 Output Total 1850 2000 1625 500 Balance 1014.7 580 665 790 Weight 158 lb 3.2 oz 158 lb 4.8 oz 159 lb 11.2 oz 156 lb 9.6 oz Gen: on Vent, NAD CVS: RRR, No M/R Lungs: Dec BS b/l lung andino Abd: Dressing on Abd, Ostomy in place, Ext: No edema, cyanosis/gangrne of both feet and hands CBC, BMP 08/05/16 05:30 08/05/16 05:30 Laboratory Tests 08/05/16 05:30 Calcium 7.8 L Albumin 0.9 L Current Medications Acetaminophen (Ofirmev Injection -) 1,000 mg IVPB Q6H PRN PRN Reason: FEVER Last Admin: 07/30/16 09:35 Dose: 1,000 mg Albuterol/Ipratropium (Duoneb -) 1 amp NEB Q6H PRN PRN Reason: SHORTNESS OF BREATH Last Admin: 07/31/16 03:50 Dose: 1 amp Chlorhexidine Gluconate (Hibiclens For Decolonization -) 1 applic TP HS [facility] Last Admin: 08/04/16 21:20 Dose: 1 applic Chlorhexidine Gluconate (Peridex -) 15 ml MM BID [facility] Last Admin: 08/05/16 10:12 Dose: 15 ml Dextrose (D50w (Vial) -) 50 ml IVPUSH Q15M PRN PRN Reason: BLOOD SUGAR < 60 Last Admin: 07/24/16 06:30 Dose: 50 ml Enoxaparin Sodium (Lovenox -) 40 mg SQ BID [facility] Last Admin: 08/05/16 10:10 Dose: 40 mg Meropenem 1 gm/ Dextrose 100 mls @ 100 mls/hr IVPB Q8H-IV [facility] PRN Reason: Protocol Last Admin: 08/05/16 10:11 Dose: 100 mls/hr Clindamycin Phosphate (Cleocin 600 Mg Premix Ivpb -) 50 mls @ 100 mls/hr IVPB Q8H-IV [facility] Last Admin: 08/05/16 10:11 Dose: 100 mls/hr Fentanyl 500 mcg/ Dextrose 100 mls @ 10 mls/hr IJ TITR [facility] PRN Reason: 50 MCG/HR Last Admin: 08/04/16 18:35 Dose: 20 mls/hr Dopamine HCl/Dextrose (Dopamine 400 Mg/D5w -) 250 mls @ 12.664 mls/hr IVPB TITR [facility]; 5 MCG/KG/MIN PRN Reason: Protocol Last Admin: 08/04/16 16:06 Dose: Not Given Fluconazole (Diflucan 200 Mg/Ns Premixed Ivpb -) 100 mls @ 100 mls/hr IVPB DAILY [facility] Last Admin: 08/05/16 09:55 Dose: 100 mls/hr Fat Emulsion Intravenous (Intralipid -) 250 mls @ 20.833 mls/hr IV DAILY@2200 [facility] Last Admin: 08/04/16 21:22 Dose: 20.833 mls/hr Famotidine/Sodium Chloride (Pepcid 20 Mg Premixed Ivpb -) 50 mls @ 100 mls/hr IVPB BID [facility] Last Admin: 08/05/16 10:11 Dose: 100 mls/hr Sodium Phosphate 15 mm/Magnesium Sulfate 4 gm/Insulin Human Regular 20 units / Thiamine HCl 100 mg/Multivitamins/Minerals 10 ml/Sodium Chloride 40 meq/Chromium /Copper/Manganese/Seleni/Zn 1 ml/ Sterile Water/Amino Acids/ Dextrose 1,200 mls @ 50 mls/hr IV DAILY@1600 [facility] Last Admin: 08/04/16 16:07 Dose: 50 mls/hr Levofloxacin (Levaquin 750 Mg Premixed Ivpb -) 150 mls @ 100 mls/hr IVPB DAILY [facility] Last Admin: 08/05/16 10:11 Dose: 100 mls/hr Insulin Aspart (Novolog Vial Sliding Scale -) 1 vial SQ ACHS [facility] PRN Reason: Protocol Last Admin: 08/05/16 06:15 Dose: 2 unit Silver Sulfadiazine (Silvadene -) 1 applic TP DAILY [facility] Last Admin: 08/05/16 10:13 Dose: 1 applic A/P 65 year old woman with PMhx of hypertension, hypercholesterolemia, diabetes mellitus who presented with Abd pain and found to have perforated Abd viscus s/ p emergent Sx now with Septic Shock, ZAHIRA and Metabolic Acidosis. #Sepsis/Perforated Abd Viscus/Abscess Supportive Care ICU monitionrg Surgical follow up #Acute Renal failure, now resolved renal function stable and pt with good urine output #Hypomagnesemia/Hypophospahtemia improved today continue TPN Trend electrolytes daily #Hypoalbuminemia continue TPN surgical follow up #Anemia Trend CBC transfuse as per ICU protocol #Distal Ischemia off pressers supportive care prognosis guarded Cyril Tubbs DO
[2016-08-05] MEDS: FENTANYL INJECTION 500 MCG in DEXTROSE 5%-WATER - 90 ML IJ SCH ×3 (11:22→21:53)
--- NOTE | 2016-08-05 11:59 | PN ---
Teaching Attending Note Name of Resident: Trevin Terrazas ATTENDING PHYSICIAN STATEMENT I saw and evaluated the patient. I reviewed the resident's note and discussed the case with the resident. I agree with the resident's findings and plan as documented. SUBJECTIVE: Pt seen and examined in the ICU. Remains intubated, sedated. Grimaces with pain. Low grade fevers overnight. OBJECTIVE: Last Vital Signs Temp Pulse Resp BP Pulse Ox 100.8 F H 92 H 19 108/53 94 L 08/05/16 10:00 08/05/16 10:00 08/05/16 10:00 08/05/16 10:00 08/05/16 09:45 Intake & Output 08/02/16 08/03/16 08/04/16 08/05/16 23:59 23:59 23:59 23:59 Intake Total 2864.7 2580 2290 1290 Output Total 1850 2000 1625 500 Balance 1014.7 580 665 790 Weight 158 lb 3.2 oz 158 lb 4.8 oz 159 lb 11.2 oz 156 lb 9.6 oz Gen: intubated, sedated Heart: RRR Lung: distant breath sounds Abd: open ulcers, +fistula Ext: multiple ulcers, +dry gangrene, + edema CBC, BMP 08/05/16 05:30 08/05/16 05:30 Active Medications Acetaminophen (Ofirmev Injection -) 1,000 mg IVPB Q6H PRN PRN Reason: FEVER Last Admin: 07/30/16 09:35 Dose: 1,000 mg Albuterol/Ipratropium (Duoneb -) 1 amp NEB Q6H PRN PRN Reason: SHORTNESS OF BREATH Last Admin: 07/31/16 03:50 Dose: 1 amp Chlorhexidine Gluconate (Hibiclens For Decolonization -) 1 applic TP HS [facility] Last Admin: 08/04/16 21:20 Dose: 1 applic Chlorhexidine Gluconate (Peridex -) 15 ml MM BID [facility] Last Admin: 08/05/16 10:12 Dose: 15 ml Dextrose (D50w (Vial) -) 50 ml IVPUSH Q15M PRN PRN Reason: BLOOD SUGAR < 60 Last Admin: 07/24/16 06:30 Dose: 50 ml Enoxaparin Sodium (Lovenox -) 40 mg SQ BID [facility] Last Admin: 08/05/16 10:10 Dose: 40 mg Meropenem 1 gm/ Dextrose 100 mls @ 100 mls/hr IVPB Q8H-IV [facility] PRN Reason: Protocol Last Admin: 08/05/16 10:11 Dose: 100 mls/hr Clindamycin Phosphate (Cleocin 600 Mg Premix Ivpb -) 50 mls @ 100 mls/hr IVPB Q8H-IV [facility] Last Admin: 08/05/16 10:11 Dose: 100 mls/hr Fentanyl 500 mcg/ Dextrose 100 mls @ 10 mls/hr IJ TITR [facility] PRN Reason: 50 MCG/HR Last Admin: 08/05/16 11:22 Dose: 20 mls/hr Dopamine HCl/Dextrose (Dopamine 400 Mg/D5w -) 250 mls @ 12.664 mls/hr IVPB TITR [facility]; 5 MCG/KG/MIN PRN Reason: Protocol Last Admin: 08/04/16 16:06 Dose: Not Given Fluconazole (Diflucan 200 Mg/Ns Premixed Ivpb -) 100 mls @ 100 mls/hr IVPB DAILY [facility] Last Admin: 08/05/16 09:55 Dose: 100 mls/hr Fat Emulsion Intravenous (Intralipid -) 250 mls @ 20.833 mls/hr IV DAILY@2200 [facility] Last Admin: 08/04/16 21:22 Dose: 20.833 mls/hr Famotidine/Sodium Chloride (Pepcid 20 Mg Premixed Ivpb -) 50 mls @ 100 mls/hr IVPB BID [facility] Last Admin: 08/05/16 10:11 Dose: 100 mls/hr Sodium Phosphate 15 mm/Magnesium Sulfate 4 gm/Insulin Human Regular 20 units / Thiamine HCl 100 mg/Multivitamins/Minerals 10 ml/Sodium Chloride 40 meq/Chromium /Copper/Manganese/Seleni/Zn 1 ml/ Sterile Water/Amino Acids/ Dextrose 1,200 mls @ 50 mls/hr IV DAILY@1600 [facility] Last Admin: 08/04/16 16:07 Dose: 50 mls/hr Levofloxacin (Levaquin 750 Mg Premixed Ivpb -) 150 mls @ 100 mls/hr IVPB DAILY [facility] Last Admin: 08/05/16 10:11 Dose: 100 mls/hr Insulin Aspart (Novolog Vial Sliding Scale -) 1 vial SQ ACHS [facility] PRN Reason: Protocol Last Admin: 08/05/16 06:15 Dose: 2 unit Silver Sulfadiazine (Silvadene -) 1 applic TP DAILY [facility] Last Admin: 08/05/16 10:13 Dose: 1 applic ASSESSMENT AND PLAN: Perforated Duodenal Ulcer Peritonitis s/p ex-lap/omental patch repair 07/16 Enterocutaneous Fistula Acute Respiratory Failure Septic Shock Lactic Acidosis Leukopenia/Thrombocytopenia likely from sepsis DM DVT Gangrene - continue antibiotics per ID - IVF to keep CVP 8-12 - titrate pressors to maintain MAP >65, minimize IV piggybacks - monitor urine output, creatinine - will need lasix when hemodynamically stable - taper Fio2 to keep Spo2 >90% - vascular re-evaluation for gangrene - continue anticoagulation - same TPN - DVT/GI prophylaxis - continue ICU monitoring - prognosis is guarded, continue discussions regarding advanced directives and goals of care - will need tracheostomy for failure to wean critical care time spent in reviewing chart, evaluating patient and formulating plan 40 min
--- NOTE | 2016-08-05 12:22 | PN ---
Progress Note (short form) - Note Progress Note: Neurology History of Present Illness The patient is a 65-year-old woman, with a significant past medical history of hypertension, hypercholesterolemia, diabetes mellitus and GI disorders who presented to the emergency department via walk-in for further evaluation of abdominal pain for the past 3-4 days with unintentional 20 lb weight loss over the past three months. She required surgical intervention as documented by Dr. Louise. Thereafter, complicated course and patient in ICU, off sedation for several days. CT head without acute changes. Patient was not awakening initially and remains on multiple pressors and concern was hypoperfusion and possible anoxic brain injury over the weekend. Since, has awoken and is keeps eye open, some tracking and producing spontaneous extremity movement as well following basic commands. 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 Overbreathing vent, but does have notable gangrene of fingers and toes. protecting airway and remains intubated and on vent. Toxic metabolic vs hypoperfusion and anoxic brain injury. Would benefit from MRI but not able to obtain due to vent. On vent, failed weaning trial. Has sepsis and getting ongoing treatment. Remains on blood pressure support with pressors, ill appearing. Minimally responsive, not actively following commands. Goals of care to be considered as patient without significant improvements through hospital course. *Physical Exam Vital Signs Temperature 100.8 F H 08/05/16 10:00 Pulse Rate 92 H 08/05/16 10:00 Respiratory Rate 19 08/05/16 12:05 Blood Pressure 108/53 08/05/16 10:00 O2 Sat by Pulse Oximetry (%) 94 L 08/05/16 09:45 GENERAL: Awake Frail appearing. HEENT: Normocephalic, atraumatic. +Temporal wasting. PERRL, EOMI. No conjunctival pallor. +Sclera are icteric. +Dry mucous membranes. Oropharynx is clear. NECK: Supple. Full ROM. No JVD. CARDIOVASCULAR: Tachycardic rate but regular rate and rhythm. No murmurs, rubs, or gallops. PULMONARY: +Diffuse dyspneic breath sounds that are equal bilaterally. No wheezing, crackles or rhonchi. ABDOMINAL: Firm but soft abdomen. Diffuse tenderness to palpation without rebound or guarding. Non-distended. No organomegaly. Normoactive bowel sounds. MUSCULOSKELETAL: Normal range of motion at all joints. No bony deformities or tenderness. No CVA tenderness. EXTREMITIES: No cyanosis. No clubbing. No edema. No calf tenderness. SKIN: Tenting of the skin. Jaundiced. No rashes. NEUROLOGICAL: Intubated, ventilation, opens eyes and minimal movement of extremities but not cooperating with confrontation testing, withdraws to pain, not actively following commands PSYCHIATRIC: Cooperative. Good eye contact. Appropriate mood and affect. CBCD WBC 14.8 K/mm3 (4.0-10.0) H 08/05/16 05:30 RBC 2.96 M/mm3 (3.60-5.2) L 08/05/16 05:30 Hgb 8.5 GM/dL (10.7-15.3) L 08/05/16 05:30 Hct 25.9 % (32.4-45.2) L 08/05/16 05:30 MCV 87.5 fl (80-96) 08/05/16 05:30 MCHC 32.7 g/dl (32.0-36.0) 08/05/16 05:30 RDW 14.3 % (11.6-15.6) 08/05/16 05:30 Plt Count 433 K/MM3 (134-434) 08/05/16 05:30 MPV 8.6 fl (7.5-11.1) 08/05/16 05:30 CMP Sodium 137 mmol/L (136-145) 08/05/16 05:30 Potassium 4.1 mmol/L (3.5-5.1) 08/05/16 05:30 Chloride 101 mmol/L (98-107) 08/05/16 05:30 Carbon Dioxide 26 mmol/L (21-32) 08/05/16 05:30 Anion Gap 10 (8-16) 08/05/16 05:30 BUN 22 mg/dL (7-18) H 08/05/16 05:30 Creatinine 0.3 mg/dL (0.55-1.02) L 08/05/16 05:30 Creat Clearance w eGFR > 60 (>60) 08/04/16 05:20 Calcium 7.8 mg/dL (8.5-10.1) L 08/05/16 05:30 Total Bilirubin 0.4 mg/dL (0.2-1.0) 08/05/16 05:30 AST 27 U/L (15-37) 08/05/16 05:30 ALT 20 U/L (12-78) 08/05/16 05:30 Alkaline Phosphatase 124 U/L (45-117) H 08/05/16 05:30 Total Protein 4.7 g/dl (6.4-8.2) L 08/05/16 05:30 Albumin 0.9 g/dl (3.4-5.0) L 08/05/16 05:30 EXAM: CT/HEAD CT WITHOUT CONTRAST Interpreted by Dr. Pietro Fried IMPRESSION: Comparison study MRI of the brain February 23, 2015. Findings. Serial axial images of the brain were obtained from foramen magnum to the cranial vertex without intravenous contrast, with coronal, sagittal reconstruction images. No evidence of hydrocephalus, acute subarachnoid hemorrhage, acute intra-axial or extra-axial fluid collection consistent with subdural or epidural hematoma. No mass effect, midline shift, acute ischemic changes, herniation or edema is present. Normal yancey matter white matter differentiation. The cortical sulci, sylvian fissures, perimesencephalic cisterns are not effaced. The CSF spaces are age-appropriate. Supratentorial periventricular chronic white matter microangiopathic ischemic changes are noted. Examination of the bone windows show no fracture. Normal intracranial physiological calcifications are observed. The cranial vascular calcifications are noted. The visualized paranasal sinuses and mastoid air cells are clear. Medical Decision Making 65-year-old woman, with a significant past medical history of hypertension, hypercholesterolemia, diabetes mellitus and GI disorders who presented to the emergency department via walk-in for further evaluation of abdominal pain for the past 3-4 days with unintentional 20 lb weight loss over the past three months. She required surgical intervention as documented by Dr. Louise. Thereafter , complicated course and patient in ICU, off sedation for several days. CT head without acute changes. Patient was not awakening initially and remains on multiple pressors and concern was hypoperfusion and possible anoxic brain injury over the weekend. Since, has awoken and is keeps eye open, some tracking and producing spontaneous extremity movement as well following basic commands. Toxic metabolic vs hypoperfusion and anoxic brain injury. Would benefit from MRI but not able to obtain due to vent. Fistula mgmt per Dr. Louise Continue sepsis treatment Unable to be weaned off vent, mgmt per pulm On pressors, monitor blood pressures Medical mgmt for pleural effusions Continue medical optimization and monitor mental status Ill appearing ? Goals of care Prognosis looks poor
[2016-08-05] MEDS: DOPAMINE 400 MG/D5W - 250 ML IVPB SCH (13:14)
[2016-08-05] MEDS ORDERED: MIDAZOLAM HCL 2 MG/2 ML SINGLE DOSE VIAL IVPUSH PRN (13:50)
--- NOTE | 2016-08-05 14:27 | PN ---
Progress Note, Physician History of Present Illness: patient still on vent continues to be critical opens eyes no gross changes - Current Medication List Current Medications: Active Medications Acetaminophen (Ofirmev Injection -) 1,000 mg IVPB Q6H PRN PRN Reason: FEVER Last Admin: 07/30/16 09:35 Dose: 1,000 mg Chlorhexidine Gluconate (Hibiclens For Decolonization -) 1 applic TP HS [facility] Last Admin: 08/04/16 21:20 Dose: 1 applic Chlorhexidine Gluconate (Peridex -) 15 ml MM BID [facility] Last Admin: 08/05/16 10:12 Dose: 15 ml Dextrose (D50w (Vial) -) 50 ml IVPUSH Q15M PRN PRN Reason: BLOOD SUGAR < 60 Last Admin: 07/24/16 06:30 Dose: 50 ml Enoxaparin Sodium (Lovenox -) 40 mg SQ BID [facility] Last Admin: 08/05/16 10:10 Dose: 40 mg Meropenem 1 gm/ Dextrose 100 mls @ 100 mls/hr IVPB Q8H-IV [facility] PRN Reason: Protocol Last Admin: 08/05/16 10:11 Dose: 100 mls/hr Fentanyl 500 mcg/ Dextrose 100 mls @ 10 mls/hr IJ TITR [facility] PRN Reason: 50 MCG/HR Last Admin: 08/05/16 11:22 Dose: 20 mls/hr Dopamine HCl/Dextrose (Dopamine 400 Mg/D5w -) 250 mls @ 12.664 mls/hr IVPB TITR [facility]; 5 MCG/KG/MIN PRN Reason: Protocol Last Admin: 08/05/16 13:14 Dose: Not Given Fluconazole (Diflucan 200 Mg/Ns Premixed Ivpb -) 100 mls @ 100 mls/hr IVPB DAILY [facility] Last Admin: 08/05/16 09:55 Dose: 100 mls/hr Fat Emulsion Intravenous (Intralipid -) 250 mls @ 20.833 mls/hr IV DAILY@2200 [facility] Last Admin: 08/04/16 21:22 Dose: 20.833 mls/hr Famotidine/Sodium Chloride (Pepcid 20 Mg Premixed Ivpb -) 50 mls @ 100 mls/hr IVPB BID [facility] Last Admin: 08/05/16 10:11 Dose: 100 mls/hr Sodium Phosphate 15 mm/Magnesium Sulfate 4 gm/Insulin Human Regular 20 units / Thiamine HCl 100 mg/Multivitamins/Minerals 10 ml/Sodium Chloride 40 meq/Chromium /Copper/Manganese/Seleni/Zn 1 ml/ Sterile Water/Amino Acids/ Dextrose 1,200 mls @ 50 mls/hr IV DAILY@1600 [facility] Last Admin: 08/04/16 16:07 Dose: 50 mls/hr Levofloxacin (Levaquin 750 Mg Premixed Ivpb -) 150 mls @ 100 mls/hr IVPB DAILY [facility] Last Admin: 08/05/16 10:11 Dose: 100 mls/hr Clindamycin Phosphate (Cleocin 600 Mg Premix Ivpb -) 50 mls @ 100 mls/hr IVPB Q8H-IV [facility] Insulin Aspart (Novolog Vial Sliding Scale -) 1 vial SQ ACHS [facility] PRN Reason: Protocol Last Admin: 08/05/16 13:14 Dose: 2 unit Midazolam HCl (Versed -) 2 mg IVPUSH Q4H PRN PRN Reason: AGITATION Silver Sulfadiazine (Silvadene -) 1 applic TP DAILY [facility] Last Admin: 08/05/16 10:13 Dose: 1 applic - Objective Vital Signs: Vital Signs Temperature 100.9 F H 08/05/16 14:00 Pulse Rate 93 H 08/05/16 14:00 Respiratory Rate 21 08/05/16 14:00 Blood Pressure 112/54 08/05/16 14:00 O2 Sat by Pulse Oximetry (%) 94 L 08/05/16 09:45 Constitutional: Yes: Other Cardiovascular: Yes: Regular Rate and Rhythm Respiratory: Yes: Intubated, Mechanically Ventilated Gastrointestinal: Yes: Other Musculoskeletal: Yes: Other Extremities: Yes: Other Neurological: Yes: Alert, Other Labs: CBC, BMP 08/05/16 05:30 08/05/16 05:30 INR, PTT INR 1.36 (0.82-1.09) H 07/29/16 05:30 Fibrinogen > 700.0 mg/dL (238-498) H 07/31/16 05:40 Assessment/Plan Problem List - Problems (1) Abdominal pain Code(s): R10.9 - UNSPECIFIED ABDOMINAL PAIN Qualifiers: Qualified Code(s): R10.33 - Periumbilical pain (2) Perforated abdominal viscus Code(s): PSQ5055 - (3) Perforated viscus Code(s): R19.8 - OTH SYMPTOMS AND SIGNS INVOLVING THE DGSTV SYS AND ABDOMEN (4) Hypertension Code(s): I10 - ESSENTIAL (PRIMARY) HYPERTENSION Qualifiers: Qualified Code(s): I10 - Essential (primary) hypertension lactic acidosis fevers generalized swelling gangrene of the tip of the fingers noted plan contiues to be critical off of pressors will consider stopping clinda patient prognosis is poor mentally though patient opens eyes rest as per icu cc time 40 min
[2016-08-05] MEDS: [UNRECOGNIZED DRUG - OTHER] IV SCH (16:34)
[2016-08-05] MEDS: INSULIN REGULAR IV SCH (16:34)
[2016-08-05] MEDS: MAGNESIUM SULFATE IV SCH (16:34)
[2016-08-05] MEDS: SODIUM PHOSPHATE IV SCH (16:34)
[2016-08-05] MEDS: FAT EMULSIONS 250 ML IV SCH (21:54)
[2016-08-05] MEDS: CHLORHEXIDINE GLUCONATE 4% CLEANSER FOR DECOLONIZATION TP SCH (21:54)
[2016-08-06] MEDS: CLINDAMYCIN 600MG PREMIX IVPB 50 ML IVPB SCH ×2 (01:35→08:59)
[2016-08-06] MEDS: MEROPENEM 1 GM in DEXTROSE 5%-WATER - 100 ML IVPB SCH ×3 (02:00→17:31)
[2016-08-06] MEDS ORDERED: PT OWN MED DRAWER 7, Y5N ONE ×4 (06:30→21:27)
[2016-08-06] MEDS: INSULIN SLIDING SCALE (NOVOLOG) 1 VIAL SQ SCH ×4 (06:38→21:43)
[2016-08-06 07:08] LABS: MCH 29.5 pg (25.7-33.7); MCHC 33.5 g/dl (32.0-36.0); MEAN PLT VOLUME 8.2 fl (7.5-11.1); PLATELET COUNT 442 K/MM3 (134-434); RDW 14.5 % (11.6-15.6); WHITE BLOOD COUNT 15.1 K/mm3 (4.0-10.0)
--- NOTE | 2016-08-06 07:38 | PN ---
Physical Exam: SUBJECTIVE: Patient seen and examined opens eyes to verbal and tactile stimuli but does not make eye contact or stay awake, lethargic. OBJECTIVE: Vital Signs Period Temp Pulse Resp BP Sys/Major Pulse Ox Last 24 Hr 99.7 F-101 F 84-98 17-25 93-117/45-61 94-98 HEAD: Bitemporal wasting. facial erythema and skin sloughing EYES: sluggish reaction to light b/l with constricted pupils, sclera anicteric. ENT: NGT in place, oropharynx with ET in place. dry mucous membranes. NECK: Trachea midline. RIJ site cdi - no discharge or erythema LUNGS: diffuse rales and rhonchi, anterior bilaterally, no wheezes, quiet at bases. HEART: regular rate/rhythm, S1, S2 without murmur, rub or gallop. ABDOMEN: colectomy placed over sump pump tube insertion site with surrounding erythema/firmness, soft abdomen in left/lower/upper abdomen periumbilicus with serous with scant pus-like discharge,open ulcers throughout abdomen with scant serous discharge, covered in xeroform EXTREMITIES: 2+ left radial pulse, weak right radial pulse, no pulse in DPl b/l , acrocyanosis extending from fingernails to mid-forearm, left hand: gangrene at fingertips upto to pIP joint in 2nd-5th digits, surrounding erythema on palm and dorsum of hand with mottling. right hand: gangrene at fingertips upto pIP joint in 1st - 5th digits no edema in legs. acrocyanosis in toes, marked in 5th digits b/l with skin mottling upto ankles. no edema. SKIN: skin weeping throughout, multiple open ulcers (abdomen, inner thighs, neck and arms), erythema on anterior left thigh and medial right thigh, ulcer posterior/lateral right thigh. skin sloughing on left dorsum of hand. NEUROLOGICAL: responsive to verbal stimuli. grimaces when feet and abdomen are touched, lethargic, easily arousable but does not stay awake. is not making eye contact/tracking or moving extremities. Laboratory Results - last 24 hr 08/01/16 08/02/16 08/02/16 16:45 05:45 05:51 WBC RBC Hgb Hct MCV MCHC RDW Plt Count MPV Neutrophils % Lymphocytes % POC Glucometer 226.86778 327.40073 321.71160 Blood Type Antibody Screen Crossmatch 08/02/16 08/02/16 08/02/16 12:45 22:06 22:08 WBC RBC Hgb Hct MCV MCHC RDW Plt Count MPV Neutrophils % Lymphocytes % POC Glucometer > 400 > 400 Blood Type O POSITIVE Antibody Screen Negative Crossmatch See Detail 08/02/16 08/03/16 08/05/16 22:17 15:52 05:37 WBC RBC Hgb Hct MCV MCHC RDW Plt Count MPV Neutrophils % Lymphocytes % POC Glucometer 259.04283 > 400 194.15615 Blood Type Antibody Screen Crossmatch 08/05/16 08/05/16 08/05/16 11:38 17:06 22:52 WBC RBC Hgb Hct MCV MCHC RDW Plt Count MPV Neutrophils % Lymphocytes % POC Glucometer 175.23550 190.54661 [phone] Blood Type Antibody Screen Crossmatch 08/06/16 08/06/16 05:52 06:16 WBC 15.1 H RBC 2.85 L Hgb 8.4 L Hct 25.1 L MCV 88.0 MCHC 33.5 RDW 14.5 Plt Count 442 H MPV 8.2 Neutrophils % Y Lymphocytes % Y POC Glucometer 198.51135 Blood Type Antibody Screen Crossmatch Active Medications Generic Name Dose Route Start Last Admin Trade Name Freq PRN Reason Stop Dose Admin Acetaminophen 1,000 mg 07/19/16 15:43 07/30/16 09:35 Ofirmev Injection - IVPB 1,000 mg Q6H PRN Administration FEVER Chlorhexidine Gluconate 1 applic 07/16/16 22:00 08/05/16 21:54 Hibiclens For Decolonization - TP 1 applic HS AVERY Administration Chlorhexidine Gluconate 15 ml 07/21/16 10:00 08/05/16 21:56 Peridex - MM 15 ml BID [facility]ERY Administration Dextrose 50 ml 07/24/16 07:18 07/24/16 06:30 D50w (Vial) - IVPUSH 50 ml Q15M PRN Administration BLOOD SUGAR < 60 Enoxaparin Sodium 40 mg 08/04/16 10:15 08/05/16 21:56 Lovenox - SQ 40 mg BID [facility]ERY Administration Meropenem 1 gm/ Dextrose 100 mls @ 100 mls/hr 07/19/16 18:00 08/06/16 02:00 IVPB 100 mls/hr Q8H-IV [facility]ERY Administration Protocol Fentanyl 500 mcg/ Dextrose 100 mls @ 10 mls/hr 07/28/16 12:00 08/05/16 21:53 IJ 20 mls/hr TITR AVERY Administration 50 MCG/HR Dopamine HCl/Dextrose 250 mls @ 12.664 mls/hr 07/29/16 12:15 08/05/16 13:14 Dopamine 400 Mg/D5w - IVPB Not Given TITR AVERY Protocol 5 MCG/KG/MIN Fluconazole 100 mls @ 100 mls/hr 07/30/16 10:00 08/05/16 09:55 Diflucan 200 Mg/Ns Premixed Ivpb - IVPB 100 mls/hr DAILY [facility] Administration Fat Emulsion Intravenous 250 mls @ 20.833 mls/hr 07/31/16 22:00 08/05/16 21:54 Intralipid - IV 20.833 mls/hr DAILY@2200 [facility] Administration Famotidine/Sodium Chloride 50 mls @ 100 mls/hr 07/31/16 22:00 08/05/16 21:56 Pepcid 20 Mg Premixed Ivpb - IVPB 100 mls/hr BID [facility] Administration Sodium Phosphate 15 mm/ 1,200 mls @ 50 mls/hr 08/04/16 16:00 08/05/16 16:34 Magnesium Sulfate 4 gm/ IV 50 mls/hr Insulin Human Regular 20 units DAILY@1600 [facility] Administration / Thiamine HCl 100 mg/ Multivitamins/Minerals 10 ml/ Sodium Chloride 40 meq/ Chromium/Copper/Manganese/ Seleni/Zn 1 ml/ Sterile Water/ Amino Acids/ Dextrose Levofloxacin 150 mls @ 100 mls/hr 08/04/16 17:00 08/05/16 10:11 Levaquin 750 Mg Premixed Ivpb - IVPB 100 mls/hr DAILY [facility] Administration Clindamycin Phosphate 50 mls @ 100 mls/hr 08/05/16 18:00 08/06/16 01:35 Cleocin 600 Mg Premix Ivpb - IVPB 100 mls/hr Q8H-IV [facility] Administration Insulin Aspart 1 vial 07/17/16 16:30 08/06/16 06:38 Novolog Vial Sliding Scale - SQ 2 unit ACHS [facility]ERY Administration Protocol Midazolam HCl 2 mg 08/05/16 13:50 Versed - IVPUSH Q4H PRN AGITATION Silver Sulfadiazine 1 applic 07/24/16 10:00 08/05/16 10:13 Silvadene - TP 1 applic DAILY [facility] Administration Intake & Output 08/03/16 08/04/16 08/05/16 08/06/16 23:59 23:59 23:59 23:59 Intake Total 2580 2290 2680 911 Output Total 1999 1625 1325 730 Balance 436 518 1448 181 Weight 158 lb 4.8 oz 159 lb 11.2 oz 156 lb 9.6 oz 156 lb 11.979 oz ASSESSMENT/PLAN: 65 yr old woman with HTN, dementia, NIDDM II admitted to ICU with septic shock secondary to perforated duodenal ulcer and peritonitis, 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 - updated family regarding patient's declining status, possibility of amputation. Mr Ward says "this is not what Crystal would have wanted, our mothers both were amputated at the knee and she would not want that done to her. " He will be discussing goals of care with the rest of the family and his daughter. Cardivascular Hypotensive - off pressors - urine output: 1325/24hr - maintain goal MAP>65, current MAP 69 - limit fluids, MAP at goal, expect her to be able to manage fluid balance - monitor urine output - right IJ central line placed 07/31 Pulmonary endotracheal tube placed 07/16 fio2 40%, sat 100%, RR 14 titrate to maintain spo2 >90% - pt RR 18 - patient is not able to tolerate weaning trials. - not a candidate for weaning - discussed with Dr. Louise regarding trach placement, possibly this coming thursday , consent obtained from , placed in chart Gastrointestinal; s/p repair perforated duodenal ulcer 07/16, - Meropenem IV 1gm q8hr - day 18 - Cleocin - 600gm q8h - day 15 - Diflucan 200mg IVPB daily, discussed with Dr. Burgess, continue for now - Day 21 - Rocephin 750gm daily IVPB - Day 3 - pepcid ivpb 20g daily - enterocutaenous fistula with colostomy bag -- stop tube feeds, bowel rest and NG tube to wall suction, monitor output - placed on TPN (day 7) Renal - Bacon placed in ED pre-op 07/16 - consult: Dr. Tubbs Infectious Disease - consulted - meropenem + cleocin + diflucan + levofloxacin - tylenol IVPB 1gm q6hr for fevers + ice packs at axilla, neck, groin. avoid cooling blanket on extremities and on feet. -- fevers possible from multiple sources including gangrene, skin ulcers and fistula Endocrine NIDDM II - D5 Iv push 1 amp when BGM <60 - BGM q6hrs w/ goal 140-180, NISS. Hematologic - cephalic vein SVT and right IJ clot, likley iatrogenic from central line placement - txment with lovenox BID 40sq daily - thrombocytopenia likely due to sepsis, r/o DIC - daily fibrinogen levels/coags , if fibrinogen level <100 consider cryoppt - goal to maintain plts>20,000 - trend H/H, transfuse of hgb <7.0, - leucocytosis trending up, likely from multiple sources - consult Dr. Church Neurologic AMS secondary to prolonged sedative effect or hypoperfusion causing anoxic brain injury Dr. Allen consulted for further neurological evaluation; rec MRI, however not transportable on vent, continue medical management. lethargic today. Dementia Diet: TPN DVT- lovenox BID 40 sq Visit type - Emergency Visit Emergency Visit: No - New Patient This patient is new to me today: No - Critical Care Critical Care patient: Yes Total Critical Care Time (in minutes): 39 Critical Care Statement: The care of this patient involved high complexity decision making to prevent further life threatening deterioration of the patient 's condition and/or to evalute & treat vital organ system(s) failure or risk of failure.
[2016-08-06 07:39] LABS: CALCIUM 7.9 mg/dL (8.5-10.1)
[2016-08-06 07:40] LABS: CREATININE 0.4 mg/dL (0.55-1.02); PHOSPHOROUS 3.6 mg/dL (2.5-4.9)
[2016-08-06 07:54] LABS: ARTERIAL BLD GAS O2 SATURATION 98.5 % (90-98.9); ARTERIAL BLOOD GAS BASE EXCESS 2.1 meq/l (-2-2); ARTERIAL BLOOD GAS HCO3 25.4 meq/L (22-26); ARTERIAL BLOOD GAS pH 7.46 (7.35-7.45)
[2016-08-06 08:00] LABS: ALLENS TEST POSITIVE; ART PUNCT SITE LEFT RADIAL; LPM/O2% 40%; PT. ON O2? YES
[2016-08-06 08:01] LABS: MECH. VENT. ESPRIT; TYPE OF O2 MEC.VENT; VENT RATE 14; VT/PRESS 400
[2016-08-06] MEDS: FENTANYL INJECTION 500 MCG in DEXTROSE 5%-WATER - 90 ML IJ SCH ×4 (08:36→20:45)
[2016-08-06] MEDS: FLUCONAZOLE 200 MG/NS 100 ML IVPB SCH (08:59)
[2016-08-06] MEDS: LEVOFLOXACIN 750 MG IVPB 150 ML IVPB SCH (08:59)
[2016-08-06] MEDS: FAMOTIDINE 20 MG/50 ML IVPB 50 ML IVPB SCH ×2 (09:00→21:41)
[2016-08-06] MEDS: CHLORHEXIDINE GLUCONATE 0.12% 15ML CUP MM SCH ×2 (09:00→21:43)
[2016-08-06] MEDS: ENOXAPARIN NA (PORCINE) 40 MG/0.4 ML DISP.SYRIN SQ SCH (09:00)
[2016-08-06 10:59] LABS: PLATELET ESTIMATE ADEQUATE (NORMAL)
--- NOTE | 2016-08-06 13:10 | PN ---
Progress Note (short form) - Note Progress Note: Renal Follow up for ZAHIRA/Metabolic acidosis Pt seen and examined in the ICU awake on mild sedation off pressers good urine output Vital Signs Temperature 100.9 F H 08/06/16 10:00 Pulse Rate 96 H 08/06/16 12:00 Respiratory Rate 24 08/06/16 12:25 Blood Pressure 111/54 08/06/16 12:00 O2 Sat by Pulse Oximetry (%) 100 08/06/16 09:15 Intake & Output 08/03/16 08/04/16 08/05/16 08/06/16 23:59 23:59 23:59 23:59 Intake Total 2580 2290 2680 911 Output Total 1999 1625 1325 730 Balance 927 104 1411 181 Weight 158 lb 4.8 oz 159 lb 11.2 oz 156 lb 9.6 oz 156 lb 11.979 oz Gen: on Vent, NAD CVS: RRR, No M/R Lungs: Dec BS b/l lung andino Abd: Dressing on Abd, Ostomy in place, Ext: No edema, cyanosis/gangrne of both feet and hands CBC, BMP 08/06/16 06:16 08/06/16 06:16 Laboratory Tests 08/06/16 06:16 Calcium 7.9 L Phosphorus 3.6 Magnesium 2.0 Current Medications Acetaminophen (Ofirmev Injection -) 1,000 mg IVPB Q6H PRN PRN Reason: FEVER Last Admin: 07/30/16 09:35 Dose: 1,000 mg Chlorhexidine Gluconate (Hibiclens For Decolonization -) 1 applic TP HS [facility] Last Admin: 08/05/16 21:54 Dose: 1 applic Chlorhexidine Gluconate (Peridex -) 15 ml MM BID [facility] Last Admin: 08/06/16 09:00 Dose: 15 ml Dextrose (D50w (Vial) -) 50 ml IVPUSH Q15M PRN PRN Reason: BLOOD SUGAR < 60 Last Admin: 07/24/16 06:30 Dose: 50 ml Enoxaparin Sodium (Lovenox -) 40 mg SQ BID [facility] Last Admin: 08/06/16 09:00 Dose: 40 mg Meropenem 1 gm/ Dextrose 100 mls @ 100 mls/hr IVPB Q8H-IV [facility]ERY PRN Reason: Protocol Last Admin: 08/06/16 09:00 Dose: 100 mls/hr Fentanyl 500 mcg/ Dextrose 100 mls @ 10 mls/hr IJ TITR AVERY PRN Reason: 50 MCG/HR Last Admin: 08/06/16 08:36 Dose: 20 mls/hr Dopamine HCl/Dextrose (Dopamine 400 Mg/D5w -) 250 mls @ 12.664 mls/hr IVPB TITR AVERY; 5 MCG/KG/MIN PRN Reason: Protocol Last Admin: 08/05/16 13:14 Dose: Not Given Fluconazole (Diflucan 200 Mg/Ns Premixed Ivpb -) 100 mls @ 100 mls/hr IVPB DAILY [facility] Last Admin: 08/06/16 08:59 Dose: 100 mls/hr Fat Emulsion Intravenous (Intralipid -) 250 mls @ 20.833 mls/hr IV DAILY@2200 [facility] Last Admin: 08/05/16 21:54 Dose: 20.833 mls/hr Famotidine/Sodium Chloride (Pepcid 20 Mg Premixed Ivpb -) 50 mls @ 100 mls/hr IVPB BID [facility] Last Admin: 08/06/16 09:00 Dose: 100 mls/hr Sodium Phosphate 15 mm/Magnesium Sulfate 4 gm/Insulin Human Regular 20 units / Thiamine HCl 100 mg/Multivitamins/Minerals 10 ml/Sodium Chloride 40 meq/Chromium /Copper/Manganese/Seleni/Zn 1 ml/ Sterile Water/Amino Acids/ Dextrose 1,200 mls @ 50 mls/hr IV DAILY@1600 [facility] Last Admin: 08/05/16 16:34 Dose: 50 mls/hr Levofloxacin (Levaquin 750 Mg Premixed Ivpb -) 150 mls @ 100 mls/hr IVPB DAILY [facility] Last Admin: 08/06/16 08:59 Dose: 100 mls/hr Clindamycin Phosphate (Cleocin 600 Mg Premix Ivpb -) 50 mls @ 100 mls/hr IVPB Q8H-IV [facility] Last Admin: 08/06/16 08:59 Dose: 100 mls/hr Insulin Aspart (Novolog Vial Sliding Scale -) 1 vial SQ ACHS [facility]ERY PRN Reason: Protocol Last Admin: 08/06/16 11:47 Dose: 6 unit Midazolam HCl (Versed -) 2 mg IVPUSH Q4H PRN PRN Reason: AGITATION Silver Sulfadiazine (Silvadene -) 1 applic TP DAILY [facility] Last Admin: 08/05/16 10:13 Dose: 1 applic A/P 65 year old woman with PMhx of hypertension, hypercholesterolemia, diabetes mellitus who presented with Abd pain and found to have perforated Abd viscus s/ p emergent Sx now with Septic Shock, ZAHIRA and Metabolic Acidosis. #Sepsis/Perforated Abd Viscus/Abscess off pressers continue management as per ICU #Acute Renal failure, now resolved good urine output BUN/Cr stable #Hypomagnesemia/Hypophospahtemia improved today continue TPN Trend electrolytes daily #Hypoalbuminemia continue TPN #Anemia Trend CBC transfuse as per ICU protocol #Distal Ischemia off pressers supportive care prognosis guarded Cyril Tubbs DO
--- NOTE | 2016-08-06 13:33 | PN ---
Progress Note, Physician - Current Medication List Current Medications: Active Medications Acetaminophen (Ofirmev Injection -) 1,000 mg IVPB Q6H PRN PRN Reason: FEVER Last Admin: 07/30/16 09:35 Dose: 1,000 mg Chlorhexidine Gluconate (Hibiclens For Decolonization -) 1 applic TP HS [facility] Last Admin: 08/05/16 21:54 Dose: 1 applic Chlorhexidine Gluconate (Peridex -) 15 ml MM BID [facility] Last Admin: 08/06/16 09:00 Dose: 15 ml Dextrose (D50w (Vial) -) 50 ml IVPUSH Q15M PRN PRN Reason: BLOOD SUGAR < 60 Last Admin: 07/24/16 06:30 Dose: 50 ml Enoxaparin Sodium (Lovenox -) 40 mg SQ BID [facility] Last Admin: 08/06/16 09:00 Dose: 40 mg Meropenem 1 gm/ Dextrose 100 mls @ 100 mls/hr IVPB Q8H-IV AVERY PRN Reason: Protocol Last Admin: 08/06/16 09:00 Dose: 100 mls/hr Fentanyl 500 mcg/ Dextrose 100 mls @ 10 mls/hr IJ TITR AVERY PRN Reason: 50 MCG/HR Last Admin: 08/06/16 08:36 Dose: 20 mls/hr Dopamine HCl/Dextrose (Dopamine 400 Mg/D5w -) 250 mls @ 12.664 mls/hr IVPB TITR AVERY; 5 MCG/KG/MIN PRN Reason: Protocol Last Admin: 08/05/16 13:14 Dose: Not Given Fluconazole (Diflucan 200 Mg/Ns Premixed Ivpb -) 100 mls @ 100 mls/hr IVPB DAILY [facility] Last Admin: 08/06/16 08:59 Dose: 100 mls/hr Fat Emulsion Intravenous (Intralipid -) 250 mls @ 20.833 mls/hr IV DAILY@2200 [facility] Last Admin: 08/05/16 21:54 Dose: 20.833 mls/hr Famotidine/Sodium Chloride (Pepcid 20 Mg Premixed Ivpb -) 50 mls @ 100 mls/hr IVPB BID [facility] Last Admin: 08/06/16 09:00 Dose: 100 mls/hr Sodium Phosphate 15 mm/Magnesium Sulfate 4 gm/Insulin Human Regular 20 units / Thiamine HCl 100 mg/Multivitamins/Minerals 10 ml/Sodium Chloride 40 meq/Chromium /Copper/Manganese/Seleni/Zn 1 ml/ Sterile Water/Amino Acids/ Dextrose 1,200 mls @ 50 mls/hr IV DAILY@1600 [facility] Last Admin: 08/05/16 16:34 Dose: 50 mls/hr Levofloxacin (Levaquin 750 Mg Premixed Ivpb -) 150 mls @ 100 mls/hr IVPB DAILY [facility] Last Admin: 08/06/16 08:59 Dose: 100 mls/hr Clindamycin Phosphate (Cleocin 600 Mg Premix Ivpb -) 50 mls @ 100 mls/hr IVPB Q8H-IV [facility] Last Admin: 08/06/16 08:59 Dose: 100 mls/hr Insulin Aspart (Novolog Vial Sliding Scale -) 1 vial SQ ACHS [facility] PRN Reason: Protocol Last Admin: 08/06/16 11:47 Dose: 6 unit Midazolam HCl (Versed -) 2 mg IVPUSH Q4H PRN PRN Reason: AGITATION Silver Sulfadiazine (Silvadene -) 1 applic TP DAILY [facility] Last Admin: 08/05/16 10:13 Dose: 1 applic - Objective Vital Signs: Vital Signs Temperature 100.9 F H 08/06/16 10:00 Pulse Rate 96 H 08/06/16 12:00 Respiratory Rate 24 08/06/16 12:25 Blood Pressure 111/54 08/06/16 12:00 O2 Sat by Pulse Oximetry (%) 100 08/06/16 09:15 Labs: CBC, BMP 08/06/16 06:16 08/06/16 06:16 INR, PTT INR 1.36 (0.82-1.09) H 07/29/16 05:30 Fibrinogen > 700.0 mg/dL (238-498) H 07/31/16 05:40 Problem List - Problems (1) Abdominal pain Code(s): R10.9 - UNSPECIFIED ABDOMINAL PAIN Qualifiers: Abdominal location: periumbilical Qualified Code(s): R10.33 - Periumbilical pain (2) Perforated abdominal viscus Code(s): TYP3661 - (3) Perforated viscus Code(s): R19.8 - OTH SYMPTOMS AND SIGNS INVOLVING THE DGSTV SYS AND ABDOMEN (4) Hypertension Code(s): I10 - ESSENTIAL (PRIMARY) HYPERTENSION Qualifiers: Hypertension type: essential hypertension Qualified Code(s): I10 - Essential (primary) hypertension Assessment/Plan patient is off pressors, responds to pain. Has gangrene of fingers of both hands. She is scheduled for tracheostomy tomorrow. Still has output from the enterocutaneous fistula, volume reducing , 50 ml in 24 hours, NG drainage also diminished.
--- NOTE | 2016-08-06 13:36 | PN ---
Teaching Attending Note Name of Resident: Trevin Terrazas ATTENDING PHYSICIAN STATEMENT I saw and evaluated the patient. I reviewed the resident's note and discussed the case with the resident. I agree with the resident's findings and plan as documented. SUBJECTIVE: Pt seen and examined in the ICU. Remains intubated, poorly responsive on light sedation. Febrile overnight. OBJECTIVE: Last Vital Signs Temp Pulse Resp BP Pulse Ox 100.9 F H 96 H 24 111/54 100 08/06/16 10:00 08/06/16 12:00 08/06/16 12:25 08/06/16 12:00 08/06/16 09:15 Intake & Output 08/03/16 08/04/16 08/05/16 08/06/16 23:59 23:59 23:59 23:59 Intake Total 2580 2290 2680 911 Output Total 1999 1625 1325 730 Balance 583 958 8433 181 Weight 158 lb 4.8 oz 159 lb 11.2 oz 156 lb 9.6 oz 156 lb 11.979 oz Gen: intubated, poorly responsive Heart: RRR Lung: scattered rhonchi Abd: soft, dressings intact, +fistula Ext: multiple ulcers, dry gangrene of feet, fingers CBC, BMP 08/06/16 06:16 08/06/16 06:16 Active Medications Acetaminophen (Ofirmev Injection -) 1,000 mg IVPB Q6H PRN PRN Reason: FEVER Last Admin: 07/30/16 09:35 Dose: 1,000 mg Chlorhexidine Gluconate (Hibiclens For Decolonization -) 1 applic TP HS [facility] Last Admin: 08/05/16 21:54 Dose: 1 applic Chlorhexidine Gluconate (Peridex -) 15 ml MM BID [facility] Last Admin: 08/06/16 09:00 Dose: 15 ml Dextrose (D50w (Vial) -) 50 ml IVPUSH Q15M PRN PRN Reason: BLOOD SUGAR < 60 Last Admin: 07/24/16 06:30 Dose: 50 ml Enoxaparin Sodium (Lovenox -) 40 mg SQ BID [facility] Last Admin: 08/06/16 09:00 Dose: 40 mg Meropenem 1 gm/ Dextrose 100 mls @ 100 mls/hr IVPB Q8H-IV [facility] PRN Reason: Protocol Last Admin: 08/06/16 09:00 Dose: 100 mls/hr Fentanyl 500 mcg/ Dextrose 100 mls @ 10 mls/hr IJ TITR [facility]ERY PRN Reason: 50 MCG/HR Last Admin: 08/06/16 08:36 Dose: 20 mls/hr Dopamine HCl/Dextrose (Dopamine 400 Mg/D5w -) 250 mls @ 12.664 mls/hr IVPB TITR AVERY; 5 MCG/KG/MIN PRN Reason: Protocol Last Admin: 08/05/16 13:14 Dose: Not Given Fluconazole (Diflucan 200 Mg/Ns Premixed Ivpb -) 100 mls @ 100 mls/hr IVPB DAILY [facility] Last Admin: 08/06/16 08:59 Dose: 100 mls/hr Fat Emulsion Intravenous (Intralipid -) 250 mls @ 20.833 mls/hr IV DAILY@2200 [facility] Last Admin: 08/05/16 21:54 Dose: 20.833 mls/hr Famotidine/Sodium Chloride (Pepcid 20 Mg Premixed Ivpb -) 50 mls @ 100 mls/hr IVPB BID [facility] Last Admin: 08/06/16 09:00 Dose: 100 mls/hr Sodium Phosphate 15 mm/Magnesium Sulfate 4 gm/Insulin Human Regular 20 units / Thiamine HCl 100 mg/Multivitamins/Minerals 10 ml/Sodium Chloride 40 meq/Chromium /Copper/Manganese/Seleni/Zn 1 ml/ Sterile Water/Amino Acids/ Dextrose 1,200 mls @ 50 mls/hr IV DAILY@1600 [facility] Last Admin: 08/05/16 16:34 Dose: 50 mls/hr Levofloxacin (Levaquin 750 Mg Premixed Ivpb -) 150 mls @ 100 mls/hr IVPB DAILY [facility] Last Admin: 08/06/16 08:59 Dose: 100 mls/hr Clindamycin Phosphate (Cleocin 600 Mg Premix Ivpb -) 50 mls @ 100 mls/hr IVPB Q8H-IV [facility] Last Admin: 08/06/16 08:59 Dose: 100 mls/hr Insulin Aspart (Novolog Vial Sliding Scale -) 1 vial SQ ACHS [facility] PRN Reason: Protocol Last Admin: 08/06/16 11:47 Dose: 6 unit Midazolam HCl (Versed -) 2 mg IVPUSH Q4H PRN PRN Reason: AGITATION Silver Sulfadiazine (Silvadene -) 1 applic TP DAILY [facility] Last Admin: 08/05/16 10:13 Dose: 1 applic ASSESSMENT AND PLAN: Perforated Duodenal Ulcer Peritonitis s/p ex-lap/omental patch repair 07/16 Enterocutaneous Fistula Acute Respiratory Failure Septic Shock Lactic Acidosis Leukopenia/Thrombocytopenia likely from sepsis DM DVT Gangrene - continue antibiotics per ID - IVF to keep CVP 8-12 - monitoring off pressors, maintain MAP >65, minimize IV piggybacks - monitor urine output, creatinine - will need lasix hemodynamically stable - taper Fio2 to keep Spo2 >90% - continue anticoagulation - same TPN - DVT/GI prophylaxis - continue ICU monitoring - prognosis is guarded, continue discussions regarding advanced directives and goals of care - will need tracheostomy for failure to wean pending family goals of care but recommend compassionate extubation and comfort care critical care time spent in reviewing chart, evaluating patient and formulating plan 40 min
--- NOTE | 2016-08-06 13:46 | PN ---
Progress Note (short form) - Note Progress Note: Neurology History of Present Illness The patient is a 65-year-old woman, with a significant past medical history of hypertension, hypercholesterolemia, diabetes mellitus and GI disorders who presented to the emergency department via walk-in for further evaluation of abdominal pain for the past 3-4 days with unintentional 20 lb weight loss over the past three months. She required surgical intervention as documented by Dr. Louise. Thereafter, complicated course and patient in ICU, off sedation for several days. CT head without acute changes. Patient was not awakening initially and remains on multiple pressors and concern was hypoperfusion and possible anoxic brain injury over the weekend. Since, has awoken and is keeps eye open, some tracking and producing spontaneous extremity movement as well following basic commands. 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 Overbreathing vent, but does have notable gangrene of fingers and toes. protecting airway and remains intubated and on vent. Toxic metabolic vs hypoperfusion and anoxic brain injury. Would benefit from MRI but not able to obtain due to vent. On vent, failed weaning trial. Has sepsis and getting ongoing treatment. No longer on pressers but remains minimally responsive, not actively following commands. Goals of care to be considered as patient without significant improvements through hospital course. *Physical Exam Vital Signs Temperature 100.9 F H 08/06/16 10:00 Pulse Rate 96 H 08/06/16 12:00 Respiratory Rate 24 08/06/16 12:25 Blood Pressure 111/54 08/06/16 12:00 O2 Sat by Pulse Oximetry (%) 100 08/06/16 09:15 GENERAL: Awake Frail appearing. HEENT: Normocephalic, atraumatic. +Temporal wasting. PERRL, EOMI. No conjunctival pallor. +Sclera are icteric. +Dry mucous membranes. Oropharynx is clear. NECK: Supple. Full ROM. No JVD. CARDIOVASCULAR: Tachycardic rate but regular rate and rhythm. No murmurs, rubs, or gallops. PULMONARY: +Diffuse dyspneic breath sounds that are equal bilaterally. No wheezing, crackles or rhonchi. ABDOMINAL: Firm but soft abdomen. Diffuse tenderness to palpation without rebound or guarding. Non-distended. No organomegaly. Normoactive bowel sounds. MUSCULOSKELETAL: Normal range of motion at all joints. No bony deformities or tenderness. No CVA tenderness. EXTREMITIES: No cyanosis. No clubbing. No edema. No calf tenderness. SKIN: Tenting of the skin. Jaundiced. No rashes. NEUROLOGICAL: Intubated, ventilation, opens eyes and minimal movement of extremities but not cooperating with confrontation testing, withdraws to pain, not actively following commands PSYCHIATRIC: Cooperative. Good eye contact. Appropriate mood and affect. CBCD WBC 14.8 K/mm3 (4.0-10.0) H 08/05/16 05:30 RBC 2.96 M/mm3 (3.60-5.2) L 08/05/16 05:30 Hgb 8.5 GM/dL (10.7-15.3) L 08/05/16 05:30 Hct 25.9 % (32.4-45.2) L 08/05/16 05:30 MCV 87.5 fl (80-96) 08/05/16 05:30 MCHC 32.7 g/dl (32.0-36.0) 08/05/16 05:30 RDW 14.3 % (11.6-15.6) 08/05/16 05:30 Plt Count 433 K/MM3 (134-434) 08/05/16 05:30 MPV 8.6 fl (7.5-11.1) 08/05/16 05:30 CMP Sodium 137 mmol/L (136-145) 08/05/16 05:30 Potassium 4.1 mmol/L (3.5-5.1) 08/05/16 05:30 Chloride 101 mmol/L (98-107) 08/05/16 05:30 Carbon Dioxide 26 mmol/L (21-32) 08/05/16 05:30 Anion Gap 10 (8-16) 08/05/16 05:30 BUN 22 mg/dL (7-18) H 08/05/16 05:30 Creatinine 0.3 mg/dL (0.55-1.02) L 08/05/16 05:30 Creat Clearance w eGFR > 60 (>60) 08/04/16 05:20 Calcium 7.8 mg/dL (8.5-10.1) L 08/05/16 05:30 Total Bilirubin 0.4 mg/dL (0.2-1.0) 08/05/16 05:30 AST 27 U/L (15-37) 08/05/16 05:30 ALT 20 U/L (12-78) 08/05/16 05:30 Alkaline Phosphatase 124 U/L (45-117) H 08/05/16 05:30 Total Protein 4.7 g/dl (6.4-8.2) L 08/05/16 05:30 Albumin 0.9 g/dl (3.4-5.0) L 08/05/16 05:30 EXAM: CT/HEAD CT WITHOUT CONTRAST Interpreted by Dr. Pietro Fried IMPRESSION: Comparison study MRI of the brain February 23, 2015. Findings. Serial axial images of the brain were obtained from foramen magnum to the cranial vertex without intravenous contrast, with coronal, sagittal reconstruction images. No evidence of hydrocephalus, acute subarachnoid hemorrhage, acute intra-axial or extra-axial fluid collection consistent with subdural or epidural hematoma. No mass effect, midline shift, acute ischemic changes, herniation or edema is present. Normal yancey matter white matter differentiation. The cortical sulci, sylvian fissures, perimesencephalic cisterns are not effaced. The CSF spaces are age-appropriate. Supratentorial periventricular chronic white matter microangiopathic ischemic changes are noted. Examination of the bone windows show no fracture. Normal intracranial physiological calcifications are observed. The cranial vascular calcifications are noted. The visualized paranasal sinuses and mastoid air cells are clear. Medical Decision Making 65-year-old woman, with a significant past medical history of hypertension, hypercholesterolemia, diabetes mellitus and GI disorders who presented to the emergency department via walk-in for further evaluation of abdominal pain for the past 3-4 days with unintentional 20 lb weight loss over the past three months. She required surgical intervention as documented by Dr. Louise. Thereafter , complicated course and patient in ICU, off sedation for several days. CT head without acute changes. Patient was not awakening initially and remains on multiple pressors and concern was hypoperfusion and possible anoxic brain injury over the weekend. Since, has awoken and is keeps eye open, some tracking and producing spontaneous extremity movement as well following basic commands. Toxic metabolic vs hypoperfusion and anoxic brain injury. Would benefit from MRI but not able to obtain due to vent. Fistula mgmt per Dr. Louise Continue sepsis treatment Unable to be weaned off vent, mgmt per pulm Not currently on pressors, monitor blood pressures Continued medical management for multiple complications Ill appearing ? Goals of care
[2016-08-06] MEDS: SILVER SULFADIAZINE 1% TOP CREAM 50 GM JAR TP SCH (13:55)
[2016-08-06] MEDS: DOPAMINE 400 MG/D5W - 250 ML IVPB SCH (13:56)
--- NOTE | 2016-08-06 15:10 | PN ---
Progress Note, Physician Chief Complaint: Awake History of Present Illness: Off dobutamine - Current Medication List Current Medications: Active Medications Acetaminophen (Ofirmev Injection -) 1,000 mg IVPB Q6H PRN PRN Reason: FEVER Last Admin: 07/30/16 09:35 Dose: 1,000 mg Chlorhexidine Gluconate (Hibiclens For Decolonization -) 1 applic TP HS [facility] Last Admin: 08/05/16 21:54 Dose: 1 applic Chlorhexidine Gluconate (Peridex -) 15 ml MM BID [facility] Last Admin: 08/06/16 09:00 Dose: 15 ml Dextrose (D50w (Vial) -) 50 ml IVPUSH Q15M PRN PRN Reason: BLOOD SUGAR < 60 Last Admin: 07/24/16 06:30 Dose: 50 ml Enoxaparin Sodium (Lovenox -) 40 mg SQ BID [facility] Last Admin: 08/06/16 09:00 Dose: 40 mg Meropenem 1 gm/ Dextrose 100 mls @ 100 mls/hr IVPB Q8H-IV AVERY PRN Reason: Protocol Last Admin: 08/06/16 09:00 Dose: 100 mls/hr Fentanyl 500 mcg/ Dextrose 100 mls @ 10 mls/hr IJ TITR AVERY PRN Reason: 50 MCG/HR Last Admin: 08/06/16 13:51 Dose: 20 mls/hr Fluconazole (Diflucan 200 Mg/Ns Premixed Ivpb -) 100 mls @ 100 mls/hr IVPB DAILY [facility] Last Admin: 08/06/16 08:59 Dose: 100 mls/hr Fat Emulsion Intravenous (Intralipid -) 250 mls @ 20.833 mls/hr IV DAILY@2200 [facility] Last Admin: 08/05/16 21:54 Dose: 20.833 mls/hr Famotidine/Sodium Chloride (Pepcid 20 Mg Premixed Ivpb -) 50 mls @ 100 mls/hr IVPB BID [facility] Last Admin: 08/06/16 09:00 Dose: 100 mls/hr Sodium Phosphate 15 mm/Magnesium Sulfate 4 gm/Insulin Human Regular 20 units / Thiamine HCl 100 mg/Multivitamins/Minerals 10 ml/Sodium Chloride 40 meq/Chromium /Copper/Manganese/Seleni/Zn 1 ml/ Sterile Water/Amino Acids/ Dextrose 1,200 mls @ 50 mls/hr IV DAILY@1600 [facility] Last Admin: 08/05/16 16:34 Dose: 50 mls/hr Levofloxacin (Levaquin 750 Mg Premixed Ivpb -) 150 mls @ 100 mls/hr IVPB DAILY [facility] Last Admin: 08/06/16 08:59 Dose: 100 mls/hr Clindamycin Phosphate (Cleocin 600 Mg Premix Ivpb -) 50 mls @ 100 mls/hr IVPB Q8H-IV [facility] Last Admin: 08/06/16 08:59 Dose: 100 mls/hr Insulin Aspart (Novolog Vial Sliding Scale -) 1 vial SQ ACHS AVERY PRN Reason: Protocol Last Admin: 08/06/16 11:47 Dose: 6 unit Midazolam HCl (Versed -) 2 mg IVPUSH Q4H PRN PRN Reason: AGITATION - Objective Vital Signs: Vital Signs Temperature 100.9 F H 08/06/16 10:00 Pulse Rate 100 H 08/06/16 14:00 Respiratory Rate 19 08/06/16 14:20 Blood Pressure 106/54 08/06/16 14:00 O2 Sat by Pulse Oximetry (%) 100 08/06/16 09:15 Constitutional: Yes: Cachectic Eyes: Yes: WNL HENT: Yes: WNL Neck: Yes: Supple Cardiovascular: Yes: Tachycardia Respiratory: Yes: Mechanically Ventilated Gastrointestinal: Yes: Other (Draing fistula) ...Rectal Exam: Yes: Deferred Extremities: Yes: Cold, Cyanosis Labs: CBC, BMP 08/06/16 06:16 08/06/16 06:16 INR, PTT INR 1.36 (0.82-1.09) H 07/29/16 05:30 Fibrinogen > 700.0 mg/dL (238-498) H 07/31/16 05:40 Assessment/Plan Neurology consult appreciated Will need tracheostomy before transfer
[2016-08-06] MEDS: [UNRECOGNIZED DRUG - OTHER] IV SCH (16:25)
[2016-08-06] MEDS: MAGNESIUM SULFATE IV SCH (16:25)
[2016-08-06] MEDS: SODIUM PHOSPHATE IV SCH (16:25)
[2016-08-06] MEDS: INSULIN REGULAR IV SCH (16:25)
--- NOTE | 2016-08-06 16:28 | PN ---
Progress Note, Physician History of Present Illness: patient still on vent continues to be critical opens eyes minimal response though - Current Medication List Current Medications: Active Medications Acetaminophen (Ofirmev Injection -) 1,000 mg IVPB Q6H PRN PRN Reason: FEVER Last Admin: 07/30/16 09:35 Dose: 1,000 mg Chlorhexidine Gluconate (Hibiclens For Decolonization -) 1 applic TP HS [facility] Last Admin: 08/05/16 21:54 Dose: 1 applic Chlorhexidine Gluconate (Peridex -) 15 ml MM BID [facility] Last Admin: 08/06/16 09:00 Dose: 15 ml Dextrose (D50w (Vial) -) 50 ml IVPUSH Q15M PRN PRN Reason: BLOOD SUGAR < 60 Last Admin: 07/24/16 06:30 Dose: 50 ml Enoxaparin Sodium (Lovenox -) 40 mg SQ BID [facility] Last Admin: 08/06/16 09:00 Dose: 40 mg Meropenem 1 gm/ Dextrose 100 mls @ 100 mls/hr IVPB Q8H-IV AVERY PRN Reason: Protocol Last Admin: 08/06/16 09:00 Dose: 100 mls/hr Fentanyl 500 mcg/ Dextrose 100 mls @ 10 mls/hr IJ TITR AVERY PRN Reason: 50 MCG/HR Last Admin: 08/06/16 13:51 Dose: 20 mls/hr Fluconazole (Diflucan 200 Mg/Ns Premixed Ivpb -) 100 mls @ 100 mls/hr IVPB DAILY [facility] Last Admin: 08/06/16 08:59 Dose: 100 mls/hr Fat Emulsion Intravenous (Intralipid -) 250 mls @ 20.833 mls/hr IV DAILY@2200 [facility] Last Admin: 08/05/16 21:54 Dose: 20.833 mls/hr Famotidine/Sodium Chloride (Pepcid 20 Mg Premixed Ivpb -) 50 mls @ 100 mls/hr IVPB BID [facility] Last Admin: 08/06/16 09:00 Dose: 100 mls/hr Sodium Phosphate 15 mm/Magnesium Sulfate 4 gm/Insulin Human Regular 20 units / Thiamine HCl 100 mg/Multivitamins/Minerals 10 ml/Sodium Chloride 40 meq/Chromium /Copper/Manganese/Seleni/Zn 1 ml/ Sterile Water/Amino Acids/ Dextrose 1,200 mls @ 50 mls/hr IV DAILY@1600 [facility] Last Admin: 08/06/16 16:25 Dose: 50 mls/hr Levofloxacin (Levaquin 750 Mg Premixed Ivpb -) 150 mls @ 100 mls/hr IVPB DAILY [facility] Last Admin: 08/06/16 08:59 Dose: 100 mls/hr Insulin Aspart (Novolog Vial Sliding Scale -) 1 vial SQ ACHS [facility] PRN Reason: Protocol Last Admin: 08/06/16 11:47 Dose: 6 unit Midazolam HCl (Versed -) 2 mg IVPUSH Q4H PRN PRN Reason: AGITATION - Objective Vital Signs: Vital Signs Temperature 100.4 F H 08/06/16 15:00 Pulse Rate 98 H 08/06/16 16:00 Respiratory Rate 21 08/06/16 16:00 Blood Pressure 104/54 08/06/16 16:00 O2 Sat by Pulse Oximetry (%) 100 08/06/16 09:15 Constitutional: Yes: Calm, Other Cardiovascular: Yes: Regular Rate and Rhythm Respiratory: Yes: Intubated, Mechanically Ventilated Gastrointestinal: Yes: Soft, Other (minimal draiange from fistula) Musculoskeletal: Yes: Other Extremities: Yes: Other (gangrene of the tip of fingers of toes and hands) Wound/Incision: Yes: Other Neurological: Yes: Alert, Other Labs: CBC, BMP 08/06/16 06:16 08/06/16 06:16 INR, PTT INR 1.36 (0.82-1.09) H 07/29/16 05:30 Fibrinogen > 700.0 mg/dL (238-498) H 07/31/16 05:40 - ....Imaging Chest X-ray: Report Reviewed, Image Reviewed Assessment/Plan Problem List - Problems (1) Abdominal pain Code(s): R10.9 - UNSPECIFIED ABDOMINAL PAIN Qualifiers: Qualified Code(s): R10.33 - Periumbilical pain (2) Perforated abdominal viscus Code(s): [id number] - (3) Perforated viscus Code(s): R19.8 - OTH SYMPTOMS AND SIGNS INVOLVING THE DGSTV SYS AND ABDOMEN (4) Hypertension Code(s): I10 - ESSENTIAL (PRIMARY) HYPERTENSION Qualifiers: Qualified Code(s): I10 - Essential (primary) hypertension lactic acidosis fevers generalized swelling gangrene of the tip of the fingers noted plan contiues to be critical off of pressors family discussing the next step will stop clinda and see how patient does further plan needs to me made rest as per icu cc time 40 min
[2016-08-06] MEDS: FAT EMULSIONS 250 ML IV SCH (21:42)
[2016-08-06] MEDS: CHLORHEXIDINE GLUCONATE 4% CLEANSER FOR DECOLONIZATION TP SCH (21:44)
[2016-08-07] MEDS: MEROPENEM 1 GM in DEXTROSE 5%-WATER - 100 ML IVPB SCH ×3 (02:25→17:15)
[2016-08-07 06:00] LABS: MCH 28.5 pg (25.7-33.7); MCHC 32.8 g/dl (32.0-36.0); MEAN PLT VOLUME 8.1 fl (7.5-11.1); PLATELET COUNT 577 K/MM3 (134-434); RDW 14.3 % (11.6-15.6); WHITE BLOOD COUNT 17.3 K/mm3 (4.0-10.0)
[2016-08-07] MEDS: INSULIN SLIDING SCALE (NOVOLOG) 1 VIAL SQ SCH ×4 (06:03→21:20)
[2016-08-07 06:24] LABS: CALCIUM 8.4 mg/dL (8.5-10.1); CREATININE 0.4 mg/dL (0.55-1.02); PHOSPHOROUS 3.7 mg/dL (2.5-4.9)
[2016-08-07 07:16] LABS: ARTERIAL BLOOD GAS HCO3 25.5 meq/L (22-26); ARTERIAL BLOOD GAS pH 7.45 (7.35-7.45)
[2016-08-07 07:17] LABS: ALLENS TEST POSITIVE; ART PUNCT SITE LEFT RADIAL; LPM/O2% 40%; MECH. VENT. ESPRIT; PT. ON O2? YES; TYPE OF O2 MEC.VENT
[2016-08-07 07:18] LABS: VENT RATE 14; VT/PRESS 400
[2016-08-07 07:38] LABS: METAMYELOCYTE 3 % (0-2)
--- NOTE | 2016-08-07 07:42 | PN ---
Physical Exam: SUBJECTIVE: Patient seen and examined. lethargic, minimally responsive to verbal stimuli, grimaces when hands, feet and abdomen are touched. Called the to arrange family meeting, he will be coming at 3pm to discuss GOC. OBJECTIVE: Vital Signs Period Temp Pulse Resp BP Sys/Major Pulse Ox Last 24 Hr 99.8 F-100.9 F 86-100 14-24 103-122/52-60 98-100 HEAD: Bitemporal wasting. facial erythema and skin sloughing EYES: sluggish reaction to light b/l with constricted pupils, sclera anicteric. ENT: NGT in place, oropharynx with ET in place. dry mucous membranes. NECK: Trachea midline. RIJ site cdi - no discharge or erythema LUNGS: diffuse rales and rhonchi, anterior bilaterally, no wheezes, quiet at bases. HEART: regular rate/rhythm, S1, S2 without murmur, rub or gallop. ABDOMEN: colectomy placed over sump pump tube insertion site with surrounding erythema/firmness, soft abdomen in left/lower/upper abdomen periumbilicus with serous with scant pus-like discharge,open ulcers throughout abdomen with scant serous discharge, covered in xeroform EXTREMITIES: 2+ left radial pulse, weak right radial pulse, no pulse in DP b/l, acrocyanosis extending from fingernails to mid-forearm, left hand: gangrene at fingertips upto to pIP joint in 2nd-5th digits, surrounding erythema on palm and dorsum of hand with mottling. right hand: gangrene at fingertips upto pIP joint in 1st - 5th digits no edema in legs. acrocyanosis in toes, marked in 5th digits b/l with skin mottling upto ankles. no edema. SKIN: multiple open ulcers (abdomen, inner thighs, neck and arms), erythema on anterior left thigh and medial right thigh, ulcer posterior/lateral right thigh. skin sloughing on left dorsum of hand. no edema NEUROLOGICAL: opens eyes to verbal stimuli. grimaces when feet, hands, and abdomen are touched, lethargic, easily arousable but does not stay awake. is not making eye contact/tracking or moving extremities. Laboratory Results - last 24 hr 08/05/16 08/06/16 08/06/16 05:30 06:16 06:16 WBC RBC Hgb Hct MCV MCHC RDW Plt Count MPV Neutrophils % 77.0 Lymphocytes % 11.0 D Monocytes % 9.0 Band Neutrophils 1.0 D Metamyelocytes Myelocytes 2 D Differential Comment Manual diff done Platelet Estimate Adequate Puncture Site ABG pH ABG pCO2 at Pt Temp ABG pO2 at Pt Temp ABG HCO3 ABG O2 Sat (Measured) ABG O2 Content ABG Base Excess Heber Test O2 Delivery Device Oxygen Flow Rate Vent Mode Vent Rate Mechanical Rate PEEP Pressure Support Vent Sodium 138 Potassium 3.9 Chloride 101 Carbon Dioxide 25 Anion Gap 12 BUN 27 H D Creatinine 0.4 L D POC Glucometer Random Glucose 183 H Calcium 7.9 L Phosphorus 3.6 Magnesium 2.0 Zinc 65 08/06/16 08/06/16 08/06/16 07:40 11:28 16:15 WBC RBC Hgb Hct MCV MCHC RDW Plt Count MPV Neutrophils % Lymphocytes % Monocytes % Band Neutrophils Metamyelocytes Myelocytes Differential Comment Platelet Estimate Puncture Site Left radial ABG pH 7.46 H ABG pCO2 at Pt Temp 35.9 ABG pO2 at Pt Temp 101.0 H ABG HCO3 25.4 ABG O2 Sat (Measured) 98.5 ABG O2 Content 11.3 L ABG Base Excess 2.1 H Heber Test Positive O2 Delivery Device Mec.vent Oxygen Flow Rate 40% Vent Mode A/c Vent Rate 14 Mechanical Rate Esprit PEEP 5.0 Pressure Support Vent 400 Sodium Potassium Chloride Carbon Dioxide Anion Gap BUN Creatinine POC Glucometer 256.21087 150.24975 Random Glucose Calcium Phosphorus Magnesium Zinc 08/06/16 08/07/16 08/07/16 21:20 05:30 05:30 WBC 17.3 H RBC 3.01 L Hgb 8.6 L Hct 26.2 L MCV 87.0 MCHC 32.8 RDW 14.3 Plt Count 577 H D MPV 8.1 Neutrophils % 79.0 Lymphocytes % 10.0 Monocytes % 8.0 Band Neutrophils Metamyelocytes 3 H D Myelocytes Differential Comment Platelet Estimate Puncture Site ABG pH ABG pCO2 at Pt Temp ABG pO2 at Pt Temp ABG HCO3 ABG O2 Sat (Measured) ABG O2 Content ABG Base Excess Heber Test O2 Delivery Device Oxygen Flow Rate Vent Mode Vent Rate Mechanical Rate PEEP Pressure Support Vent Sodium 137 Potassium 3.8 Chloride 99 Carbon Dioxide 28 Anion Gap 10 BUN 32 H Creatinine 0.4 L POC Glucometer 155.12812 Random Glucose 215 H Calcium 8.4 L Phosphorus 3.7 Magnesium 2.0 Zinc 08/07/16 07:05 WBC RBC Hgb Hct MCV MCHC RDW Plt Count MPV Neutrophils % Lymphocytes % Monocytes % Band Neutrophils Metamyelocytes Myelocytes Differential Comment Platelet Estimate Puncture Site Left radial ABG pH 7.45 ABG pCO2 at Pt Temp 37.4 ABG pO2 at Pt Temp 119.0 H ABG HCO3 25.5 ABG O2 Sat (Measured) 99.0 H ABG O2 Content 12.2 L ABG Base Excess 2.0 Heber Test Positive O2 Delivery Device Mec.vent Oxygen Flow Rate 40% Vent Mode A/c Vent Rate 14 Mechanical Rate Esprit PEEP 5.0 Pressure Support Vent 400 Sodium Potassium Chloride Carbon Dioxide Anion Gap BUN Creatinine POC Glucometer Random Glucose Calcium Phosphorus Magnesium Zinc Active Medications Generic Name Dose Route Start Last Admin Trade Name Freq PRN Reason Stop Dose Admin Acetaminophen 1,000 mg 07/19/16 15:43 07/30/16 09:35 Ofirmev Injection - IVPB 1,000 mg Q6H PRN Administration FEVER Chlorhexidine Gluconate 1 applic 07/16/16 22:00 08/06/16 21:44 Hibiclens For Decolonization - TP 1 applic HS AVERY Administration Chlorhexidine Gluconate 15 ml 07/21/16 10:00 08/06/16 21:43 Peridex - MM 15 ml BID AVERY Administration Dextrose 50 ml 07/24/16 07:18 07/24/16 06:30 D50w (Vial) - IVPUSH 50 ml Q15M PRN Administration BLOOD SUGAR < 60 Enoxaparin Sodium 40 mg 08/04/16 10:15 08/06/16 09:00 Lovenox - SQ 40 mg BID AVERY Administration Meropenem 1 gm/ Dextrose 100 mls @ 100 mls/hr 07/19/16 18:00 08/07/16 02:25 IVPB 100 mls/hr Q8H-IV AVERY Administration Protocol Fentanyl 500 mcg/ Dextrose 100 mls @ 10 mls/hr 07/28/16 12:00 08/06/16 20:45 IJ Not Given TITR AVERY 50 MCG/HR Fluconazole 100 mls @ 100 mls/hr 07/30/16 10:00 08/06/16 08:59 Diflucan 200 Mg/Ns Premixed Ivpb - IVPB 100 mls/hr DAILY [facility]ERY Administration Fat Emulsion Intravenous 250 mls @ 20.833 mls/hr 07/31/16 22:00 08/06/16 21:42 Intralipid - IV 20.833 mls/hr DAILY@2200 AVERY Administration Famotidine/Sodium Chloride 50 mls @ 100 mls/hr 07/31/16 22:00 08/06/16 21:41 Pepcid 20 Mg Premixed Ivpb - IVPB 100 mls/hr BID AVERY Administration Sodium Phosphate 15 mm/ 1,200 mls @ 50 mls/hr 08/04/16 16:00 08/06/16 16:25 Magnesium Sulfate 4 gm/ IV 50 mls/hr Insulin Human Regular 20 units DAILY@1600 AVERY Administration / Thiamine HCl 100 mg/ Multivitamins/Minerals 10 ml/ Sodium Chloride 40 meq/ Chromium/Copper/Manganese/ Seleni/Zn 1 ml/ Sterile Water/ Amino Acids/ Dextrose Levofloxacin 150 mls @ 100 mls/hr 08/04/16 17:00 08/06/16 08:59 Levaquin 750 Mg Premixed Ivpb - IVPB 100 mls/hr DAILY AVERY Administration Insulin Aspart 1 vial 07/17/16 16:30 08/07/16 06:03 Novolog Vial Sliding Scale - SQ 4 unit ACHS AVERY Administration Protocol Midazolam HCl 2 mg 08/05/16 13:50 Versed - IVPUSH Q4H PRN AGITATION Intake & Output 08/04/16 08/05/16 08/06/16 08/07/16 23:59 23:59 23:59 23:59 Intake Total 2290 2680 2381 1029 Output Total 1625 1325 1180 500 Balance 665 1355 1201 529 Weight 159 lb 11.2 oz 156 lb 9.6 oz 156 lb 11.979 oz 158 lb ASSESSMENT/PLAN: 65 yr old woman with HTN, dementia, NIDDM II admitted to ICU with septic shock secondary to perforated duodenal ulcer and peritonitis, 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 -GOC to be discussed with family today. Cardivascular Hypotensive - off pressors - urine output: 1180/24hr - maintain goal MAP>65, current MAP 69 - limit fluids, MAP at goal, expect her to be able to manage fluid balance - monitor urine output - right IJ central line placed 07/31 Pulmonary endotracheal tube placed 07/16 fio2 40%, sat 100%, RR 14 titrate to maintain spo2 >90% - pt RR 16 - tolerated CPAP for few minutes, however became tachpneic and tachycardic. - will defer trach until GOC clarified with family. Gastrointestinal; s/p repair perforated duodenal ulcer 07/16, - Meropenem IV 1gm q8hr - day - Diflucan 200mg IVPB daily, discussed with Dr. Burgess, continue for now - Day 22 - Rocephin 750gm daily IVPB - Day 4 - pepcid ivpb 20g daily - enterocutaenous fistula with colostomy bag -- stop tube feeds, bowel rest and NG tube to wall suction, monitor output - placed on TPN (day 8) - Cleocin - dc'd - 600gm q8h - 15 days Renal - Bacon placed in ED pre-op 07/16 - consult: Dr. Tubbs Infectious Disease - consulted - meropenem + diflucan + levofloxacin - tylenol IVPB 1gm q6hr for fevers + ice packs at axilla, neck, groin. avoid cooling blanket on extremities and on feet. -- fevers possible from multiple sources including gangrene, skin ulcers and fistula Endocrine NIDDM II - D5 Iv push 1 amp when BGM <60 - BGM q6hrs w/ goal 140-180, NISS. Hematologic - cephalic vein SVT and right IJ clot, likley iatrogenic from central line placement - txment with lovenox BID 40sq daily - thrombocytopenia likely due to sepsis, r/o DIC - daily fibrinogen levels/coags , if fibrinogen level <100 consider cryoppt - goal to maintain plts>20,000 - trend H/H, transfuse of hgb <7.0, - leucocytosis trending up, likely from multiple sources - consult Dr. Church Neurologic AMS secondary to prolonged sedative effect or hypoperfusion causing anoxic brain injury Dr. Allen consulted for further neurological evaluation; rec MRI, however not transportable on vent, continue medical management. lethargic today. Dementia Diet: TPN DVT- lovenox BID 40 sq Visit type - Emergency Visit Emergency Visit: No - New Patient This patient is new to me today: No - Critical Care Critical Care patient: Yes Total Critical Care Time (in minutes): 37 Critical Care Statement: The care of this patient involved high complexity decision making to prevent further life threatening deterioration of the patient 's condition and/or to evalute & treat vital organ system(s) failure or risk of failure.
[2016-08-07] MEDS ORDERED: PT OWN MED DRAWER 7, Y5N ONE ×2 (08:41→16:51)
[2016-08-07] MEDS: CHLORHEXIDINE GLUCONATE 0.12% 15ML CUP MM SCH ×2 (09:35→21:12)
[2016-08-07] MEDS: LEVOFLOXACIN 750 MG IVPB 150 ML IVPB SCH (09:35)
[2016-08-07] MEDS: FAMOTIDINE 20 MG/50 ML IVPB 50 ML IVPB SCH ×2 (09:36→21:12)
--- NOTE | 2016-08-07 09:46 | PN ---
Progress Note, Physician Chief Complaint: BP stable History of Present Illness: On respirator - Current Medication List Current Medications: Active Medications Acetaminophen (Ofirmev Injection -) 1,000 mg IVPB Q6H PRN PRN Reason: FEVER Last Admin: 07/30/16 09:35 Dose: 1,000 mg Chlorhexidine Gluconate (Hibiclens For Decolonization -) 1 applic TP HS [facility] Last Admin: 08/06/16 21:44 Dose: 1 applic Chlorhexidine Gluconate (Peridex -) 15 ml MM BID [facility] Last Admin: 08/07/16 09:35 Dose: 15 ml Dextrose (D50w (Vial) -) 50 ml IVPUSH Q15M PRN PRN Reason: BLOOD SUGAR < 60 Last Admin: 07/24/16 06:30 Dose: 50 ml Enoxaparin Sodium (Lovenox -) 40 mg SQ BID [facility] Last Admin: 08/06/16 09:00 Dose: 40 mg Meropenem 1 gm/ Dextrose 100 mls @ 100 mls/hr IVPB Q8H-IV [facility] PRN Reason: Protocol Last Admin: 08/07/16 09:35 Dose: 100 mls/hr Fentanyl 500 mcg/ Dextrose 100 mls @ 10 mls/hr IJ TITR [facility] PRN Reason: 50 MCG/HR Last Admin: 08/06/16 20:45 Dose: Not Given Fluconazole (Diflucan 200 Mg/Ns Premixed Ivpb -) 100 mls @ 100 mls/hr IVPB DAILY [facility] Last Admin: 08/06/16 08:59 Dose: 100 mls/hr Fat Emulsion Intravenous (Intralipid -) 250 mls @ 20.833 mls/hr IV DAILY@2200 [facility] Last Admin: 08/06/16 21:42 Dose: 20.833 mls/hr Famotidine/Sodium Chloride (Pepcid 20 Mg Premixed Ivpb -) 50 mls @ 100 mls/hr IVPB BID [facility] Last Admin: 08/07/16 09:36 Dose: 100 mls/hr Sodium Phosphate 15 mm/Magnesium Sulfate 4 gm/Insulin Human Regular 20 units / Thiamine HCl 100 mg/Multivitamins/Minerals 10 ml/Sodium Chloride 40 meq/Chromium /Copper/Manganese/Seleni/Zn 1 ml/ Sterile Water/Amino Acids/ Dextrose 1,200 mls @ 50 mls/hr IV DAILY@1600 [facility] Last Admin: 08/06/16 16:25 Dose: 50 mls/hr Levofloxacin (Levaquin 750 Mg Premixed Ivpb -) 150 mls @ 100 mls/hr IVPB DAILY [facility] Last Admin: 08/07/16 09:35 Dose: 100 mls/hr Insulin Aspart (Novolog Vial Sliding Scale -) 1 vial SQ ACHS [facility] PRN Reason: Protocol Last Admin: 08/07/16 06:03 Dose: 4 unit Midazolam HCl (Versed -) 2 mg IVPUSH Q4H PRN PRN Reason: AGITATION - Objective Vital Signs: Vital Signs Temperature 100.2 F H 08/07/16 04:00 Pulse Rate 103 H 08/07/16 08:00 Respiratory Rate 21 08/07/16 08:32 Blood Pressure 136/64 08/07/16 08:00 O2 Sat by Pulse Oximetry (%) 94 L 08/07/16 08:32 Constitutional: Yes: Moderate Distress Eyes: Yes: WNL HENT: Yes: WNL Neck: Yes: WNL Respiratory: Yes: Mechanically Ventilated Gastrointestinal: Yes: Other (fistula draineng) Genitourinary: Yes: Bacon Present Edema: No Labs: CBC, BMP 08/07/16 05:30 08/07/16 05:30 INR, PTT INR 1.36 (0.82-1.09) H 07/29/16 05:30 Fibrinogen > 700.0 mg/dL (238-498) H 07/31/16 05:40 Assessment/Plan Cleared for tracheostomy
[2016-08-07] MEDS: FLUCONAZOLE 200 MG/NS 100 ML IVPB SCH (10:22)
[2016-08-07] MEDS ORDERED: HEMOQUE TEST 1 EACH EACH ONE (10:29)
[2016-08-07] MEDS: FENTANYL INJECTION 500 MCG in DEXTROSE 5%-WATER - 90 ML IJ SCH ×2 (11:28→17:28)
--- NOTE | 2016-08-07 11:56 | PN ---
Teaching Attending Note Name of Resident: Trevin Terrazas ATTENDING PHYSICIAN STATEMENT I saw and evaluated the patient. I reviewed the resident's note and discussed the case with the resident. I agree with the resident's findings and plan as documented. SUBJECTIVE: Pt seen and examined in the ICU. Clinically unchanged, remains intubated, poorly responsive. Low grade fevers overnight. OBJECTIVE: Last Vital Signs Temp Pulse Resp BP Pulse Ox 99.9 F H 92 H 19 104/54 99 08/07/16 10:00 08/07/16 10:00 08/07/16 10:00 08/07/16 10:00 08/07/16 09:00 Intake & Output 08/04/16 08/05/16 08/06/16 08/07/16 23:59 23:59 23:59 23:59 Intake Total 2290 2680 2381 1029 Output Total 1625 1325 1180 500 Balance 665 1355 1201 529 Weight 159 lb 11.2 oz 156 lb 9.6 oz 156 lb 11.979 oz 158 lb Gen: intubated, poorly responsive Heart: RRR Lung: scattered rhonchi Abd: soft, nontender Ext: + edema, gangrenous feet, fingers CBC, BMP 08/07/16 05:30 08/07/16 05:30 Active Medications Acetaminophen (Ofirmev Injection -) 1,000 mg IVPB Q6H PRN PRN Reason: FEVER Last Admin: 07/30/16 09:35 Dose: 1,000 mg Chlorhexidine Gluconate (Hibiclens For Decolonization -) 1 applic TP HS [facility] Last Admin: 08/06/16 21:44 Dose: 1 applic Chlorhexidine Gluconate (Peridex -) 15 ml MM BID [facility] Last Admin: 08/07/16 09:35 Dose: 15 ml Dextrose (D50w (Vial) -) 50 ml IVPUSH Q15M PRN PRN Reason: BLOOD SUGAR < 60 Last Admin: 07/24/16 06:30 Dose: 50 ml Enoxaparin Sodium (Lovenox -) 40 mg SQ BID [facility] Last Admin: 08/06/16 09:00 Dose: 40 mg Meropenem 1 gm/ Dextrose 100 mls @ 100 mls/hr IVPB Q8H-IV [facility] PRN Reason: Protocol Last Admin: 08/07/16 09:35 Dose: 100 mls/hr Fentanyl 500 mcg/ Dextrose 100 mls @ 10 mls/hr IJ TITR [facility] PRN Reason: 50 MCG/HR Last Admin: 08/07/16 11:28 Dose: 20 mls/hr Fluconazole (Diflucan 200 Mg/Ns Premixed Ivpb -) 100 mls @ 100 mls/hr IVPB DAILY [facility] Last Admin: 08/07/16 10:22 Dose: 100 mls/hr Fat Emulsion Intravenous (Intralipid -) 250 mls @ 20.833 mls/hr IV DAILY@2200 [facility] Last Admin: 08/06/16 21:42 Dose: 20.833 mls/hr Famotidine/Sodium Chloride (Pepcid 20 Mg Premixed Ivpb -) 50 mls @ 100 mls/hr IVPB BID [facility] Last Admin: 08/07/16 09:36 Dose: 100 mls/hr Sodium Phosphate 15 mm/Magnesium Sulfate 4 gm/Insulin Human Regular 20 units / Thiamine HCl 100 mg/Multivitamins/Minerals 10 ml/Sodium Chloride 40 meq/Chromium /Copper/Manganese/Seleni/Zn 1 ml/ Sterile Water/Amino Acids/ Dextrose 1,200 mls @ 50 mls/hr IV DAILY@1600 [facility] Last Admin: 08/06/16 16:25 Dose: 50 mls/hr Levofloxacin (Levaquin 750 Mg Premixed Ivpb -) 150 mls @ 100 mls/hr IVPB DAILY [facility] Last Admin: 08/07/16 09:35 Dose: 100 mls/hr Insulin Aspart (Novolog Vial Sliding Scale -) 1 vial SQ ACHS [facility] PRN Reason: Protocol Last Admin: 08/07/16 10:38 Dose: 4 unit Midazolam HCl (Versed -) 2 mg IVPUSH Q4H PRN PRN Reason: AGITATION ASSESSMENT AND PLAN: Perforated Duodenal Ulcer Peritonitis s/p ex-lap/omental patch repair 07/16 Enterocutaneous Fistula Acute Respiratory Failure Septic Shock Lactic Acidosis Leukopenia/Thrombocytopenia likely from sepsis DM DVT Gangrene - continue antibiotics per ID - IVF to keep CVP 8-12 - monitoring off pressors, maintain MAP >65, minimize IV piggybacks - monitor urine output, creatinine - lasix trials if remains hemodynamically stable - taper Fio2 to keep Spo2 >90% - continue anticoagulation - same TPN - DVT/GI prophylaxis - continue ICU monitoring - prognosis is guarded, continue discussions regarding advanced directives and goals of care - recommend compassionate extubation and comfort care due to failure to wean, anticipated amputations, poor quality of life - will speak to family again when they arrive
--- NOTE | 2016-08-07 12:07 | PN ---
Progress Note (short form) - Note Progress Note: Renal Follow up for ZAHIRA/Metabolic acidosis Pt seen and examined in the ICU sedated on the vent no overnight evnets low grade fevers this am good urine output on TPN Vital Signs Temperature 99.9 F H 08/07/16 10:00 Pulse Rate 93 H 08/07/16 11:00 Respiratory Rate 19 08/07/16 11:57 Blood Pressure 104/53 08/07/16 11:00 O2 Sat by Pulse Oximetry (%) 99 08/07/16 11:57 Intake & Output 08/04/16 08/05/16 08/06/16 08/07/16 23:59 23:59 23:59 23:59 Intake Total 2290 2680 2381 1029 Output Total 1625 1325 1180 500 Balance 665 1355 1201 529 Weight 159 lb 11.2 oz 156 lb 9.6 oz 156 lb 11.979 oz 158 lb Gen: on Vent, NAD CVS: RRR, No M/R Lungs: Dec BS b/l lung andino Abd: Dressing on Abd, Ostomy in place, Ext: No edema, cyanosis/gangrne of both feet and hands CBC, BMP 08/07/16 05:30 08/07/16 05:30 Current Medications Acetaminophen (Ofirmev Injection -) 1,000 mg IVPB Q6H PRN PRN Reason: FEVER Last Admin: 07/30/16 09:35 Dose: 1,000 mg Chlorhexidine Gluconate (Hibiclens For Decolonization -) 1 applic TP HS [facility] Last Admin: 08/06/16 21:44 Dose: 1 applic Chlorhexidine Gluconate (Peridex -) 15 ml MM BID [facility] Last Admin: 08/07/16 09:35 Dose: 15 ml Dextrose (D50w (Vial) -) 50 ml IVPUSH Q15M PRN PRN Reason: BLOOD SUGAR < 60 Last Admin: 07/24/16 06:30 Dose: 50 ml Enoxaparin Sodium (Lovenox -) 40 mg SQ BID [facility] Last Admin: 08/06/16 09:00 Dose: 40 mg Meropenem 1 gm/ Dextrose 100 mls @ 100 mls/hr IVPB Q8H-IV [facility] PRN Reason: Protocol Last Admin: 08/07/16 09:35 Dose: 100 mls/hr Fentanyl 500 mcg/ Dextrose 100 mls @ 10 mls/hr IJ TITR [facility] PRN Reason: 50 MCG/HR Last Admin: 08/07/16 11:28 Dose: 20 mls/hr Fluconazole (Diflucan 200 Mg/Ns Premixed Ivpb -) 100 mls @ 100 mls/hr IVPB DAILY [facility] Last Admin: 08/07/16 10:22 Dose: 100 mls/hr Fat Emulsion Intravenous (Intralipid -) 250 mls @ 20.833 mls/hr IV DAILY@2200 [facility] Last Admin: 08/06/16 21:42 Dose: 20.833 mls/hr Famotidine/Sodium Chloride (Pepcid 20 Mg Premixed Ivpb -) 50 mls @ 100 mls/hr IVPB BID [facility] Last Admin: 08/07/16 09:36 Dose: 100 mls/hr Sodium Phosphate 15 mm/Magnesium Sulfate 4 gm/Insulin Human Regular 20 units / Thiamine HCl 100 mg/Multivitamins/Minerals 10 ml/Sodium Chloride 40 meq/Chromium /Copper/Manganese/Seleni/Zn 1 ml/ Sterile Water/Amino Acids/ Dextrose 1,200 mls @ 50 mls/hr IV DAILY@1600 [facility] Last Admin: 08/06/16 16:25 Dose: 50 mls/hr Levofloxacin (Levaquin 750 Mg Premixed Ivpb -) 150 mls @ 100 mls/hr IVPB DAILY [facility] Last Admin: 08/07/16 09:35 Dose: 100 mls/hr Insulin Aspart (Novolog Vial Sliding Scale -) 1 vial SQ ACHS [facility] PRN Reason: Protocol Last Admin: 08/07/16 10:38 Dose: 4 unit Midazolam HCl (Versed -) 2 mg IVPUSH Q4H PRN PRN Reason: AGITATION A/P 65 year old woman with PMhx of hypertension, hypercholesterolemia, diabetes mellitus who presented with Abd pain and found to have perforated Abd viscus s/ p emergent Sx now with Septic Shock, ZAHIRA and Metabolic Acidosis. #Sepsis/Perforated Abd Viscus/Abscess ICU Monitoring Vent support surgical follow up #Acute Renal Failure and electrolyte abnormalities Renal function improved and stable electrolytes WNL on TPN Will sign off case at this time please call with any questions or concerns prognosis remains guarded Cyril Tubbs DO
[2016-08-07] MEDS: ACETAMINOPHEN 1000 MG/100 ML VIAL (NON FORMULARY) IVPB PRN (13:55)
--- NOTE | 2016-08-07 15:39 | PN ---
Progress Note (short form) - Note Progress Note: CCM Had family meeting with and family members, explained pt's current condition and poor prognosis. states that she would not have wanted to live bedbound, vent dependent in a care home. He would like to make her palliative care with compassionate extubation but would like to discuss with his daughter before proceeding. Kevin Chance MD
--- NOTE | 2016-08-07 16:30 | PN ---
Progress Note, Physician History of Present Illness: patient still on vent continues to be critical opens eyes minimal response though - Current Medication List Current Medications: Active Medications Acetaminophen (Ofirmev Injection -) 1,000 mg IVPB Q6H PRN PRN Reason: FEVER Last Admin: 08/07/16 13:55 Dose: 1,000 mg Chlorhexidine Gluconate (Hibiclens For Decolonization -) 1 applic TP HS [facility] Last Admin: 08/06/16 21:44 Dose: 1 applic Chlorhexidine Gluconate (Peridex -) 15 ml MM BID [facility] Last Admin: 08/07/16 09:35 Dose: 15 ml Dextrose (D50w (Vial) -) 50 ml IVPUSH Q15M PRN PRN Reason: BLOOD SUGAR < 60 Last Admin: 07/24/16 06:30 Dose: 50 ml Enoxaparin Sodium (Lovenox -) 40 mg SQ BID [facility] Last Admin: 08/06/16 09:00 Dose: 40 mg Meropenem 1 gm/ Dextrose 100 mls @ 100 mls/hr IVPB Q8H-IV [facility] PRN Reason: Protocol Last Admin: 08/07/16 09:35 Dose: 100 mls/hr Fentanyl 500 mcg/ Dextrose 100 mls @ 10 mls/hr IJ TITR [facility] PRN Reason: 50 MCG/HR Last Admin: 08/07/16 11:28 Dose: 20 mls/hr Fluconazole (Diflucan 200 Mg/Ns Premixed Ivpb -) 100 mls @ 100 mls/hr IVPB DAILY [facility] Last Admin: 08/07/16 10:22 Dose: 100 mls/hr Fat Emulsion Intravenous (Intralipid -) 250 mls @ 20.833 mls/hr IV DAILY@2200 [facility] Last Admin: 08/06/16 21:42 Dose: 20.833 mls/hr Famotidine/Sodium Chloride (Pepcid 20 Mg Premixed Ivpb -) 50 mls @ 100 mls/hr IVPB BID [facility] Last Admin: 08/07/16 09:36 Dose: 100 mls/hr Sodium Phosphate 15 mm/Magnesium Sulfate 4 gm/Insulin Human Regular 20 units / Thiamine HCl 100 mg/Multivitamins/Minerals 10 ml/Sodium Chloride 40 meq/Chromium /Copper/Manganese/Seleni/Zn 1 ml/ Sterile Water/Amino Acids/ Dextrose 1,200 mls @ 50 mls/hr IV DAILY@1600 [facility] Last Admin: 08/06/16 16:25 Dose: 50 mls/hr Levofloxacin (Levaquin 750 Mg Premixed Ivpb -) 150 mls @ 100 mls/hr IVPB DAILY [facility] Last Admin: 08/07/16 09:35 Dose: 100 mls/hr Insulin Aspart (Novolog Vial Sliding Scale -) 1 vial SQ ACHS [facility] PRN Reason: Protocol Last Admin: 08/07/16 10:38 Dose: 4 unit Midazolam HCl (Versed -) 2 mg IVPUSH Q4H PRN PRN Reason: AGITATION - Objective Vital Signs: Vital Signs Temperature 101.1 F H 08/07/16 14:00 Pulse Rate 91 H 08/07/16 14:00 Respiratory Rate 18 08/07/16 14:30 Blood Pressure 106/53 08/07/16 14:00 O2 Sat by Pulse Oximetry (%) 99 08/07/16 11:57 Constitutional: Yes: Other Cardiovascular: Yes: Regular Rate and Rhythm Respiratory: Yes: Intubated, Mechanically Ventilated Gastrointestinal: Yes: Soft Musculoskeletal: Yes: Other Extremities: Yes: Other Integumentary: Yes: Other (skin changes mummification) Neurological: Yes: Alert, Other Labs: CBC, BMP 08/07/16 05:30 08/07/16 05:30 INR, PTT INR 1.36 (0.82-1.09) H 07/29/16 05:30 Fibrinogen > 700.0 mg/dL (238-498) H 07/31/16 05:40 - ....Imaging Chest X-ray: Report Reviewed, Image Reviewed Assessment/Plan Problem List - Problems (1) Abdominal pain Code(s): R10.9 - UNSPECIFIED ABDOMINAL PAIN Qualifiers: Qualified Code(s): R10.33 - Periumbilical pain (2) Perforated abdominal viscus Code(s): BJV0536 - (3) Perforated viscus Code(s): R19.8 - OTH SYMPTOMS AND SIGNS INVOLVING THE DGSTV SYS AND ABDOMEN (4) Hypertension Code(s): I10 - ESSENTIAL (PRIMARY) HYPERTENSION Qualifiers: Qualified Code(s): I10 - Essential (primary) hypertension lactic acidosis fevers generalized swelling gangrene of the tip of the fingers noted plan contiues to be critical off of pressors family discussing the next step fevers will consider restarting clinda further plan needs to me made rest as per icu cc time 40 min
[2016-08-07] MEDS: [UNRECOGNIZED DRUG - OTHER] IV SCH (17:14)
[2016-08-07] MEDS: MAGNESIUM SULFATE IV SCH (17:14)
[2016-08-07] MEDS: INSULIN REGULAR IV SCH (17:14)
[2016-08-07] MEDS: SODIUM PHOSPHATE IV SCH (17:14)
[2016-08-07] MEDS: FAT EMULSIONS 250 ML IV SCH (21:12)
[2016-08-07] MEDS: CHLORHEXIDINE GLUCONATE 4% CLEANSER FOR DECOLONIZATION TP SCH (21:13)
[2016-08-08] MEDS ORDERED: PT OWN MED DRAWER 7, Y5N ONE ×5 (00:55→20:17)
[2016-08-08] MEDS: MEROPENEM 1 GM in DEXTROSE 5%-WATER - 100 ML IVPB SCH ×3 (01:04→17:20)
[2016-08-08 06:23] LABS: MCH 29.6 pg (25.7-33.7); MCHC 33.8 g/dl (32.0-36.0); MEAN CELL VOLUME 87.6 fl (80-96); MEAN PLT VOLUME 7.8 fl (7.5-11.1); PLATELET COUNT 539 K/MM3 (134-434); RDW 14.5 % (11.6-15.6)
[2016-08-08 06:57] LABS: CALCIUM 8.2 mg/dL (8.5-10.1); COCKROFT - GAULT 205.8785; CREATININE 0.3 mg/dL (0.55-1.02); MAGNESIUM 2.1 mg/dL (1.8-2.4); PHOSPHOROUS 3.5 mg/dL (2.5-4.9)
[2016-08-08] MEDS: INSULIN SLIDING SCALE (NOVOLOG) 1 VIAL SQ SCH ×4 (07:23→22:09)
[2016-08-08 07:37] LABS: ALLENS TEST POSITIVE; ART PUNCT SITE LEFT RADIAL; ARTERIAL BLD GAS O2 SATURATION 97.4 % (90-98.9); ARTERIAL BLOOD GAS BASE EXCESS 2.8 meq/l (-2-2); ARTERIAL BLOOD GAS HCO3 26.3 meq/L (22-26); ARTERIAL BLOOD GAS PO2 96.6 mmHg (80-100); ARTERIAL BLOOD GAS pH 7.44 (7.35-7.45); LPM/O2% 40%; MECH. VENT. ESPRIT; PT'S TEMP 100.4; PT. ON O2? YES; TYPE OF O2 MEC.VENT; VENT RATE 14; VT/PRESS 400
[2016-08-08 08:51] LABS: PLATELET ESTIMATE INCREASED (NORMAL)
[2016-08-08] MEDS: FLUCONAZOLE 200 MG/NS 100 ML IVPB SCH (09:50)
[2016-08-08] MEDS: CHLORHEXIDINE GLUCONATE 0.12% 15ML CUP MM SCH ×2 (09:51→21:36)
[2016-08-08] MEDS: FENTANYL INJECTION 500 MCG in DEXTROSE 5%-WATER - 90 ML IJ SCH ×3 (09:56→17:29)
[2016-08-08] MEDS: LEVOFLOXACIN 750 MG IVPB 150 ML IVPB SCH (10:40)
[2016-08-08] MEDS: FAMOTIDINE 20 MG/50 ML IVPB 50 ML IVPB SCH ×2 (11:12→21:36)
--- NOTE | 2016-08-08 11:12 | PN ---
Progress Note (short form) - Note Progress Note: Neurology History of Present Illness The patient is a 65-year-old woman, with a significant past medical history of hypertension, hypercholesterolemia, diabetes mellitus and GI disorders who presented to the emergency department via walk-in for further evaluation of abdominal pain for the past 3-4 days with unintentional 20 lb weight loss over the past three months. She required surgical intervention as documented by Dr. Louise. Thereafter, complicated course and patient in ICU, off sedation for several days. CT head without acute changes. Patient was not awakening initially and remains on multiple pressors and concern was hypoperfusion and possible anoxic brain injury over the weekend. Since, has awoken and is keeps eye open, some tracking and producing spontaneous extremity movement as well following basic commands. 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 Overbreathing vent, but does have notable gangrene of fingers and toes. protecting airway and remains intubated and on vent. Toxic metabolic vs hypoperfusion and anoxic brain injury. Would benefit from MRI but not able to obtain due to vent. On vent, failed weaning trial. Has sepsis and getting ongoing treatment. No longer on pressers but remains minimally responsive, not actively following commands. Goals of care to be considered as patient without significant improvements through hospital course. Nurse informed me that plan is for trach today. *Physical Exam Vital Signs Temperature 100.5 F H 08/08/16 07:00 Pulse Rate 97 H 08/08/16 09:00 Respiratory Rate 20 08/08/16 09:00 Blood Pressure 135/75 08/08/16 07:00 O2 Sat by Pulse Oximetry (%) 100 08/08/16 09:00 GENERAL: Awake Frail appearing. HEENT: Normocephalic, atraumatic. +Temporal wasting. PERRL, EOMI. No conjunctival pallor. +Sclera are icteric. +Dry mucous membranes. Oropharynx is clear. NECK: Supple. Full ROM. No JVD. CARDIOVASCULAR: Tachycardic rate but regular rate and rhythm. No murmurs, rubs, or gallops. PULMONARY: +Diffuse dyspneic breath sounds that are equal bilaterally. No wheezing, crackles or rhonchi. ABDOMINAL: Firm but soft abdomen. Diffuse tenderness to palpation without rebound or guarding. Non-distended. No organomegaly. Normoactive bowel sounds. MUSCULOSKELETAL: Normal range of motion at all joints. No bony deformities or tenderness. No CVA tenderness. EXTREMITIES: No cyanosis. No clubbing. No edema. No calf tenderness. SKIN: Tenting of the skin. Jaundiced. No rashes. NEUROLOGICAL: Intubated, ventilation, opens eyes and minimal movement of extremities but not cooperating with confrontation testing, withdraws to pain, not actively following commands CBCD WBC 18.0 K/mm3 (4.0-10.0) H 08/08/16 05:10 RBC 2.78 M/mm3 (3.60-5.2) L 08/08/16 05:10 Hgb 8.2 GM/dL (10.7-15.3) L 08/08/16 05:10 Hct 24.4 % (32.4-45.2) L 08/08/16 05:10 MCV 87.6 fl (80-96) 08/08/16 05:10 MCHC 33.8 g/dl (32.0-36.0) 08/08/16 05:10 RDW 14.5 % (11.6-15.6) 08/08/16 05:10 Plt Count 539 K/MM3 (134-434) H 08/08/16 05:10 MPV 7.8 fl (7.5-11.1) 08/08/16 05:10 CMP Sodium 138 mmol/L (136-145) 08/08/16 05:10 Potassium 3.7 mmol/L (3.5-5.1) 08/08/16 05:10 Chloride 100 mmol/L (98-107) 08/08/16 05:10 Carbon Dioxide 26 mmol/L (21-32) 08/08/16 05:10 Anion Gap 12 (8-16) 08/08/16 05:10 BUN 27 mg/dL (7-18) H 08/08/16 05:10 Creatinine 0.3 mg/dL (0.55-1.02) L D 08/08/16 05:10 Creat Clearance w eGFR > 60 (>60) 08/04/16 05:20 Calcium 8.2 mg/dL (8.5-10.1) L 08/08/16 05:10 Total Bilirubin 0.4 mg/dL (0.2-1.0) 08/05/16 05:30 AST 27 U/L (15-37) 08/05/16 05:30 ALT 20 U/L (12-78) 08/05/16 05:30 Alkaline Phosphatase 124 U/L (45-117) H 08/05/16 05:30 Total Protein 4.7 g/dl (6.4-8.2) L 08/05/16 05:30 Albumin 0.9 g/dl (3.4-5.0) L 08/05/16 05:30 EXAM: CT/HEAD CT WITHOUT CONTRAST Interpreted by Dr. Pietro Fried IMPRESSION: Comparison study MRI of the brain February 23, 2015. Findings. Serial axial images of the brain were obtained from foramen magnum to the cranial vertex without intravenous contrast, with coronal, sagittal reconstruction images. No evidence of hydrocephalus, acute subarachnoid hemorrhage, acute intra-axial or extra-axial fluid collection consistent with subdural or epidural hematoma. No mass effect, midline shift, acute ischemic changes, herniation or edema is present. Normal yancey matter white matter differentiation. The cortical sulci, sylvian fissures, perimesencephalic cisterns are not effaced. The CSF spaces are age-appropriate. Supratentorial periventricular chronic white matter microangiopathic ischemic changes are noted. Examination of the bone windows show no fracture. Normal intracranial physiological calcifications are observed. The cranial vascular calcifications are noted. The visualized paranasal sinuses and mastoid air cells are clear. Medical Decision Making 65-year-old woman, with a significant past medical history of hypertension, hypercholesterolemia, diabetes mellitus and GI disorders who presented to the emergency department via walk-in for further evaluation of abdominal pain for the past 3-4 days with unintentional 20 lb weight loss over the past three months. She required surgical intervention as documented by Dr. Louise. Thereafter , complicated course and patient in ICU, off sedation for several days. CT head without acute changes. Patient was not awakening initially and remains on multiple pressors and concern was hypoperfusion and possible anoxic brain injury over the weekend. Since, has awoken and is keeps eye open, some tracking and producing spontaneous extremity movement as well following basic commands. Toxic metabolic vs hypoperfusion and anoxic brain injury. Would benefit from MRI but not able to obtain due to vent. Continue sepsis treatment Unable to be weaned off vent, mgmt per pulm, PCP/surgery planning for trach, defer to them regarding this Not currently on pressors, monitor blood pressures Continued medical management for multiple complications Ill appearing ? Goals of care
--- NOTE | 2016-08-08 11:17 | PN ---
Teaching Attending Note Name of Resident: Thuy Jurado ATTENDING PHYSICIAN STATEMENT I saw and evaluated the patient. I reviewed the resident's note and discussed the case with the resident. I agree with the resident's findings and plan as documented. SUBJECTIVE: Patient seen and examined in the ICU. Remains off pressors. Lethargic but arousable. Not following commands. Intake & Output 08/05/16 08/06/16 08/07/16 08/08/16 23:59 23:59 23:59 23:59 Intake Total 2680 2381 2520 637 Output Total 1325 1180 1550 550 Balance 1355 1201 970 87 Weight 156 lb 9.6 oz 156 lb 11.979 oz 158 lb 155 lb 8 oz Last Vital Signs Temp Pulse Resp BP Pulse Ox 100.5 F H 97 H 20 135/75 100 08/08/16 07:00 08/08/16 09:00 08/08/16 09:00 08/08/16 07:00 08/08/16 09:00 Active Medications Acetaminophen (Ofirmev Injection -) 1,000 mg IVPB Q6H PRN PRN Reason: FEVER Last Admin: 08/07/16 13:55 Dose: 1,000 mg Chlorhexidine Gluconate (Hibiclens For Decolonization -) 1 applic TP HS [facility] Last Admin: 08/07/16 21:13 Dose: 1 applic Chlorhexidine Gluconate (Peridex -) 15 ml MM BID [facility] Last Admin: 08/08/16 09:51 Dose: 15 ml Dextrose (D50w (Vial) -) 50 ml IVPUSH Q15M PRN PRN Reason: BLOOD SUGAR < 60 Last Admin: 07/24/16 06:30 Dose: 50 ml Enoxaparin Sodium (Lovenox -) 40 mg SQ BID [facility] Last Admin: 08/06/16 09:00 Dose: 40 mg Meropenem 1 gm/ Dextrose 100 mls @ 100 mls/hr IVPB Q8H-IV [facility] PRN Reason: Protocol Last Admin: 08/08/16 09:50 Dose: 100 mls/hr Fentanyl 500 mcg/ Dextrose 100 mls @ 10 mls/hr IJ TITR [facility] PRN Reason: 50 MCG/HR Last Admin: 08/08/16 09:56 Dose: 20 mls/hr Fluconazole (Diflucan 200 Mg/Ns Premixed Ivpb -) 100 mls @ 100 mls/hr IVPB DAILY [facility] Last Admin: 08/08/16 09:50 Dose: 100 mls/hr Fat Emulsion Intravenous (Intralipid -) 250 mls @ 20.833 mls/hr IV DAILY@2200 [facility] Last Admin: 08/07/16 21:12 Dose: 20.833 mls/hr Famotidine/Sodium Chloride (Pepcid 20 Mg Premixed Ivpb -) 50 mls @ 100 mls/hr IVPB BID [facility] Last Admin: 08/07/16 21:12 Dose: 100 mls/hr Sodium Phosphate 15 mm/Magnesium Sulfate 4 gm/Insulin Human Regular 20 units / Thiamine HCl 100 mg/Multivitamins/Minerals 10 ml/Sodium Chloride 40 meq/Chromium /Copper/Manganese/Seleni/Zn 1 ml/ Sterile Water/Amino Acids/ Dextrose 1,200 mls @ 50 mls/hr IV DAILY@1600 [facility] Last Admin: 08/07/16 17:14 Dose: 50 mls/hr Levofloxacin (Levaquin 750 Mg Premixed Ivpb -) 150 mls @ 100 mls/hr IVPB DAILY [facility] Last Admin: 08/08/16 10:40 Dose: 100 mls/hr Insulin Aspart (Novolog Vial Sliding Scale -) 1 vial SQ ACHS [facility] PRN Reason: Protocol Last Admin: 08/08/16 07:23 Dose: 2 unit Midazolam HCl (Versed -) 2 mg IVPUSH Q4H PRN PRN Reason: AGITATION Gen: intubated, arousable Heart: RRR Lung: scattered rhonchi Abd: soft, dressings intact Ext: cold, hypoperfused, blackened Laboratory Results - last 24 hr 08/07/16 08/08/16 08/08/16 16:15 05:10 05:10 WBC 18.0 H RBC 2.78 L Hgb 8.2 L Hct 24.4 L MCV 87.6 MCHC 33.8 RDW 14.5 Plt Count 539 H MPV 7.8 Neutrophils % 89.0 H Lymphocytes % 4.0 L D Monocytes % 7.0 Differential Comment Manual diff done Platelet Estimate Increased Puncture Site Patient Temperature ABG pH ABG pCO2 at Pt Temp ABG pO2 at Pt Temp ABG HCO3 ABG O2 Sat (Measured) ABG O2 Content ABG Base Excess Heber Test O2 Delivery Device Oxygen Flow Rate Vent Mode Vent Rate Mechanical Rate PEEP Pressure Support Vent Sodium 138 Potassium 3.7 Chloride 100 Carbon Dioxide 26 Anion Gap 12 BUN 27 H Creatinine 0.3 L D POC Glucometer 161.28680 Random Glucose 193 H Calcium 8.2 L Phosphorus 3.5 Magnesium 2.1 08/08/16 07:20 WBC RBC Hgb Hct MCV MCHC RDW Plt Count MPV Neutrophils % Lymphocytes % Monocytes % Differential Comment Platelet Estimate Puncture Site Left radial Patient Temperature 100.4 ABG pH 7.44 ABG pCO2 at Pt Temp 39.8 ABG pO2 at Pt Temp 96.6 D ABG HCO3 26.3 H ABG O2 Sat (Measured) 97.4 ABG O2 Content 15.5 ABG Base Excess 2.8 H Heber Test Positive O2 Delivery Device Mec.vent Oxygen Flow Rate 40% Vent Mode A/c Vent Rate 14 Mechanical Rate Esprit PEEP 5.0 Pressure Support Vent 400 Sodium Potassium Chloride Carbon Dioxide Anion Gap BUN Creatinine POC Glucometer Random Glucose Calcium Phosphorus Magnesium ASSESSMENT AND PLAN: Perforated Duodenal Ulcer Peritonitis s/p ex-lap/omental patch repair 07/16 Acute Respiratory Failure Septic Shock Acute Kidney Injury Lactic Acidosis Leukopenia/Thrombocytopenia likely from sepsis DM Encephalopathy -> etiology to be determined - ABX per ID - IVF - monitor urine output, creatinine - taper FiO2 to keep Spo2 >90% - transfuse platelets if <20K, cryo if fibrinogen <100 - DVT/GI prophylaxis - continue ICU monitoring - Not an ideal candidate for wean given overall condition and persistent shock - New TPN orders written - For Andrew Dubon critical care time spent in reviewing chart, evaluating patient and formulating plan 40 min
[2016-08-08] MEDS: ACETAMINOPHEN 1000 MG/100 ML VIAL (NON FORMULARY) IVPB PRN (12:37)
--- NOTE | 2016-08-08 13:22 | PN ---
Physical Exam: SUBJECTIVE: Patient seen and examined. She is lethargic, opening eyes but not following commands. No overnight events. OBJECTIVE: Vital Signs Period Temp Pulse Resp BP Sys/Major Pulse Ox Last 24 Hr 98.7 F-101.1 F 82-100 14-24 99-135/48-75 96-100 GENERAL: The patient is awake, not following commands, lethargic. HEAD: Normal with no signs of trauma, facial erythema. EYES: extraocular movements not assessed, sclera anicteric, conjunctiva clear. ENT: dry mucous membranes, NGT. NECK: Trachea midline, full range of motion, supple, RIJ, no skin changes, no erythema, swelling, drainage.. LUNGS: Breath sounds equal, rhales and rhonchi bilaterally, no wheezes, no crackles, no accessory muscle use. HEART: Regular rate and rhythm, S1, S2 without murmur, rub or gallop. ABDOMEN: Soft, colectome placed in RLW, tenderness and firmness to palpation, no guarding, no rebound, xeroform placed over open ulcers throughout abdomen. EXTREMITIES: lower extremities: acrocyanosis in toes with skin mottling upto ankles, no edema, upper extremities: acrocyanosis in toes with skin mottling upto wrists, weak pulses in radial and DP. NEUROLOGICAL: Sedated, on mech ventilation, not following commands, gait not observed. PSYCH: opens eyes to verbal stimuli and grimaces when palpated especially in hands, feet. Laboratory Results - last 24 hr 08/07/16 08/07/16 08/08/16 16:15 21:19 05:10 WBC 18.0 H RBC 2.78 L Hgb 8.2 L Hct 24.4 L MCV 87.6 MCHC 33.8 RDW 14.5 Plt Count 539 H MPV 7.8 Neutrophils % 89.0 H Lymphocytes % 4.0 L D Monocytes % 7.0 Differential Comment Manual diff done Platelet Estimate Increased Puncture Site Patient Temperature ABG pH ABG pCO2 at Pt Temp ABG pO2 at Pt Temp ABG HCO3 ABG O2 Sat (Measured) ABG O2 Content ABG Base Excess Heber Test O2 Delivery Device Oxygen Flow Rate Vent Mode Vent Rate Mechanical Rate PEEP Pressure Support Vent Sodium Potassium Chloride Carbon Dioxide Anion Gap BUN Creatinine POC Glucometer 161.49613 158.89628 Random Glucose Calcium Phosphorus Magnesium 08/08/16 08/08/16 08/08/16 05:10 07:20 11:19 WBC RBC Hgb Hct MCV MCHC RDW Plt Count MPV Neutrophils % Lymphocytes % Monocytes % Differential Comment Platelet Estimate Puncture Site Left radial Patient Temperature 100.4 ABG pH 7.44 ABG pCO2 at Pt Temp 39.8 ABG pO2 at Pt Temp 96.6 D ABG HCO3 26.3 H ABG O2 Sat (Measured) 97.4 ABG O2 Content 15.5 ABG Base Excess 2.8 H Heber Test Positive O2 Delivery Device Mec.vent Oxygen Flow Rate 40% Vent Mode A/c Vent Rate 14 Mechanical Rate Esprit PEEP 5.0 Pressure Support Vent 400 Sodium 138 Potassium 3.7 Chloride 100 Carbon Dioxide 26 Anion Gap 12 BUN 27 H Creatinine 0.3 L D POC Glucometer [phone] Random Glucose 193 H Calcium 8.2 L Phosphorus 3.5 Magnesium 2.1 Active Medications Generic Name Dose Route Start Last Admin Trade Name Freq PRN Reason Stop Dose Admin Acetaminophen 1,000 mg 07/19/16 15:43 08/08/16 12:37 Ofirmev Injection - IVPB 1,000 mg Q6H PRN Administration FEVER Chlorhexidine Gluconate 1 applic 07/16/16 22:00 08/07/16 21:13 Hibiclens For Decolonization - TP 1 applic HS [facility] Administration Chlorhexidine Gluconate 15 ml 07/21/16 10:00 08/08/16 09:51 Peridex - MM 15 ml BID [facility] Administration Dextrose 50 ml 07/24/16 07:18 07/24/16 06:30 D50w (Vial) - IVPUSH 50 ml Q15M PRN Administration BLOOD SUGAR < 60 Enoxaparin Sodium 40 mg 08/04/16 10:15 08/06/16 09:00 Lovenox - SQ 40 mg BID [facility] Administration Meropenem 1 gm/ Dextrose 100 mls @ 100 mls/hr 07/19/16 18:00 08/08/16 09:50 IVPB 100 mls/hr Q8H-IV [facility] Administration Protocol Fentanyl 500 mcg/ Dextrose 100 mls @ 10 mls/hr 07/28/16 12:00 08/08/16 11:13 IJ Not Given TITR [facility] 50 MCG/HR Fluconazole 100 mls @ 100 mls/hr 07/30/16 10:00 08/08/16 09:50 Diflucan 200 Mg/Ns Premixed Ivpb - IVPB 100 mls/hr DAILY [facility] Administration Fat Emulsion Intravenous 250 mls @ 20.833 mls/hr 07/31/16 22:00 08/07/16 21:12 Intralipid - IV 20.833 mls/hr DAILY@2200 [facility] Administration Famotidine/Sodium Chloride 50 mls @ 100 mls/hr 07/31/16 22:00 08/08/16 11:12 Pepcid 20 Mg Premixed Ivpb - IVPB 100 mls/hr BID [facility] Administration Sodium Phosphate 15 mm/ 1,200 mls @ 50 mls/hr 08/04/16 16:00 08/07/16 17:14 Magnesium Sulfate 4 gm/ IV 50 mls/hr Insulin Human Regular 20 units DAILY@1600 [facility] Administration / Thiamine HCl 100 mg/ Multivitamins/Minerals 10 ml/ Sodium Chloride 40 meq/ Chromium/Copper/Manganese/ Seleni/Zn 1 ml/ Sterile Water/ Amino Acids/ Dextrose Levofloxacin 150 mls @ 100 mls/hr 08/04/16 17:00 08/08/16 10:40 Levaquin 750 Mg Premixed Ivpb - IVPB 100 mls/hr DAILY [facility] Administration Insulin Aspart 1 vial 07/17/16 16:30 08/08/16 11:21 Novolog Vial Sliding Scale - SQ 4 unit ACHS [facility] Administration Protocol Midazolam HCl 2 mg 08/05/16 13:50 Versed - IVPUSH Q4H PRN AGITATION ASSESSMENT/PLAN: 65 yr old woman with HTN, dementia, NIDDM II admitted to ICU with septic shock secondary to perforated duodenal ulcer and peritonitis, 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 Cardivascular off pressors maintain goal MAP>65, current MAP 71 - limit fluids, MAP at goal, expect her to be able to manage fluid balance - monitor urine output - right IJ central line placed 07/31, will change today or tomorrow Pulmonary endotracheal tube placed 07/16 fio2 40%, sat 100%, RR 14 titrate to maintain spo2 >90% RR 16 will trach today Gastrointestinal; s/p repair perforated duodenal ulcer 07/16, cont Meropenem IV 1gm q8hr cont Diflucan 200mg IVPB daily cont Levaquin pepcid ivpb 20g daily enterocutaenous fistula with colostomy bag stop tube feeds, bowel rest and NG tube to wall suction, monitor output placed on TPN (day 9) Renal - Bacon placed in ED pre-op 07/16 - consult: Dr. Tubbs Infectious Disease consulted -meropenem + diflucan + levofloxacin - tylenol IVPB 1gm q6hr for fevers + ice packs at axilla, neck, groin. avoid cooling blanket on extremities and on feet. -- fevers possible from multiple sources including gangrene, skin ulcers and fistula Endocrine NIDDM II D5 Iv push 1 amp when BGM <60 BGM q6hrs w/ goal 140-180, NISS. Hematologic cephalic vein SVT and right IJ clot, likley iatrogenic from central line placement - txment with lovenox BID 40sq daily thrombocytopenia likely due to sepsis, r/o DIC - daily fibrinogen levels/coags, if fibrinogen level <100 consider cryoppt goal to maintain plts>20,000 trend H/H, transfuse of hgb <7.0, leukocytosis trending up, likely from multiple sources consult Dr. Church Neurologic AMS secondary to prolonged sedative effect or hypoperfusion causing anoxic brain injury Dr. Allen consulted for further neurological evaluation; rec MRI, however not transportable on vent, continue medical management. lethargic today. Dementia Diet: TPN DVT- lovenox BID 40 sq Disposition: monitor in ICU Problem List - Problems (1) ZAHIRA (acute kidney injury) Code(s): N17.9 - ACUTE KIDNEY FAILURE, UNSPECIFIED (2) Abdominal pain Code(s): R10.9 - UNSPECIFIED ABDOMINAL PAIN Qualifiers: Abdominal location: periumbilical Qualified Code(s): R10.33 - Periumbilical pain (3) Hypertension Code(s): I10 - ESSENTIAL (PRIMARY) HYPERTENSION Qualifiers: Hypertension type: essential hypertension Qualified Code(s): I10 - Essential (primary) hypertension (4) Perforated abdominal viscus Code(s): [id number] - (5) Sepsis Code(s): A41.9 - SEPSIS, UNSPECIFIED ORGANISM Visit type - Emergency Visit Emergency Visit: Yes ED Registration Date: 07/16/16 Care time: The patient presented to the Emergency Department on the above date and was hospitalized for further evaluation of their emergent condition. - New Patient This patient is new to me today: No - Critical Care Critical Care patient: Yes Total Critical Care Time (in minutes): 50 Critical Care Statement: The care of this patient involved high complexity decision making to prevent further life threatening deterioration of the patient 's condition and/or to evalute & treat vital organ system(s) failure or risk of failure.
[2016-08-08] MEDS ORDERED: ePHEDrine SULFATE 50 MG/1 ML AMPULE ONE (13:31)
[2016-08-08] MEDS ORDERED: KETAMINE HCL 200 MG/20 ML VIAL ONE (13:31)
[2016-08-08] MEDS ORDERED: SODIUM CHLORIDE 0.9% P/F 10 ML VIAL IJ ONE (13:32)
[2016-08-08] MEDS ORDERED: MIDAZOLAM HCL 2 MG/2 ML SINGLE DOSE VIAL ONE ×2 (13:34)
--- NOTE | 2016-08-08 13:42 | PN ---
Progress Note, Physician History of Present Illness: patient still on vent family had a long discussion decided for trach patient has been spiking fevers for last couple of days post clinda - Current Medication List Current Medications: Active Medications Acetaminophen (Ofirmev Injection -) 1,000 mg IVPB Q6H PRN PRN Reason: FEVER Last Admin: 08/08/16 12:37 Dose: 1,000 mg Chlorhexidine Gluconate (Hibiclens For Decolonization -) 1 applic TP HS [facility] Last Admin: 08/07/16 21:13 Dose: 1 applic Chlorhexidine Gluconate (Peridex -) 15 ml MM BID [facility] Last Admin: 08/08/16 09:51 Dose: 15 ml Dextrose (D50w (Vial) -) 50 ml IVPUSH Q15M PRN PRN Reason: BLOOD SUGAR < 60 Last Admin: 07/24/16 06:30 Dose: 50 ml Enoxaparin Sodium (Lovenox -) 40 mg SQ BID [facility] Last Admin: 08/06/16 09:00 Dose: 40 mg Meropenem 1 gm/ Dextrose 100 mls @ 100 mls/hr IVPB Q8H-IV [facility] PRN Reason: Protocol Last Admin: 08/08/16 09:50 Dose: 100 mls/hr Fentanyl 500 mcg/ Dextrose 100 mls @ 10 mls/hr IJ TITR [facility] PRN Reason: 50 MCG/HR Last Admin: 08/08/16 11:13 Dose: Not Given Fluconazole (Diflucan 200 Mg/Ns Premixed Ivpb -) 100 mls @ 100 mls/hr IVPB DAILY [facility] Last Admin: 08/08/16 09:50 Dose: 100 mls/hr Fat Emulsion Intravenous (Intralipid -) 250 mls @ 20.833 mls/hr IV DAILY@2200 [facility] Last Admin: 08/07/16 21:12 Dose: 20.833 mls/hr Famotidine/Sodium Chloride (Pepcid 20 Mg Premixed Ivpb -) 50 mls @ 100 mls/hr IVPB BID [facility] Last Admin: 08/08/16 11:12 Dose: 100 mls/hr Sodium Phosphate 15 mm/Magnesium Sulfate 4 gm/Insulin Human Regular 20 units / Thiamine HCl 100 mg/Multivitamins/Minerals 10 ml/Sodium Chloride 40 meq/Chromium /Copper/Manganese/Seleni/Zn 1 ml/ Sterile Water/Amino Acids/ Dextrose 1,200 mls @ 50 mls/hr IV DAILY@1600 [facility] Stop: 08/08/16 15:59 Last Admin: 08/07/16 17:14 Dose: 50 mls/hr Levofloxacin (Levaquin 750 Mg Premixed Ivpb -) 150 mls @ 100 mls/hr IVPB DAILY [facility] Last Admin: 08/08/16 10:40 Dose: 100 mls/hr Sodium Phosphate 15 mm/Magnesium Sulfate 2.95 gm/Insulin Human Regular 20 units / Thiamine HCl 100 mg/Multivitamins/Minerals 10 ml/Sodium Chloride 40 meq/ Chromium/Copper/Manganese/Seleni/Zn 1 ml/ Potassium Chloride 20 meq/ Sterile Water / Amino Acids/ Dextrose 1,200 mls @ 50 mls/hr IV DAILY@1600 [facility] Insulin Aspart (Novolog Vial Sliding Scale -) 1 vial SQ ACHS [facility] PRN Reason: Protocol Last Admin: 08/08/16 11:21 Dose: 4 unit Midazolam HCl (Versed -) 2 mg IVPUSH Q4H PRN PRN Reason: AGITATION - Objective Vital Signs: Vital Signs Temperature 100.8 F H 08/08/16 11:00 Pulse Rate 93 H 08/08/16 12:00 Respiratory Rate 20 08/08/16 12:00 Blood Pressure 99/48 08/08/16 12:00 O2 Sat by Pulse Oximetry (%) 100 08/08/16 11:35 Constitutional: Yes: Other Cardiovascular: Yes: Regular Rate and Rhythm Respiratory: Yes: Intubated, Mechanically Ventilated Gastrointestinal: Yes: Soft, Hypoactive Bowel Sounds, Other Musculoskeletal: Yes: Other (mummification of fingers of both hands and also toes of both legs) Extremities: Yes: Other Neurological: Yes: Alert, Other Psychiatric: Yes: Alert Labs: CBC, BMP 08/08/16 05:10 08/08/16 05:10 INR, PTT INR 1.36 (0.82-1.09) H 07/29/16 05:30 Fibrinogen > 700.0 mg/dL (238-498) H 07/31/16 05:40 Assessment/Plan Problem List - Problems (1) Abdominal pain Code(s): R10.9 - UNSPECIFIED ABDOMINAL PAIN Qualifiers: Qualified Code(s): R10.33 - Periumbilical pain (2) Perforated abdominal viscus Code(s): [id number] - (3) Perforated viscus Code(s): R19.8 - OTH SYMPTOMS AND SIGNS INVOLVING THE DGSTV SYS AND ABDOMEN (4) Hypertension Code(s): I10 - ESSENTIAL (PRIMARY) HYPERTENSION Qualifiers: Qualified Code(s): I10 - Essential (primary) hypertension lactic acidosis fevers generalized swelling gangrene of the tip of the fingers noted plan contiues to be critical off of pressors plan now to do trach stillf jai restarted clinda further plan needs to me made rest as per icu cc time 40 min
[2016-08-08] MEDS: CLINDAMYCIN 300 MG PREMIX IVPB 50 ML IVPB SCH ×2 (13:52→17:20)
--- NOTE | 2016-08-08 14:40 | PN ---
Progress Note, Physician Chief Complaint: Awake History of Present Illness: Scheduled for tracheostomy - Current Medication List Current Medications: Active Medications Acetaminophen (Ofirmev Injection -) 1,000 mg IVPB Q6H PRN PRN Reason: FEVER Last Admin: 08/08/16 12:37 Dose: 1,000 mg Chlorhexidine Gluconate (Hibiclens For Decolonization -) 1 applic TP HS [facility] Last Admin: 08/07/16 21:13 Dose: 1 applic Chlorhexidine Gluconate (Peridex -) 15 ml MM BID [facility] Last Admin: 08/08/16 09:51 Dose: 15 ml Dextrose (D50w (Vial) -) 50 ml IVPUSH Q15M PRN PRN Reason: BLOOD SUGAR < 60 Last Admin: 07/24/16 06:30 Dose: 50 ml Enoxaparin Sodium (Lovenox -) 40 mg SQ BID [facility] Last Admin: 08/06/16 09:00 Dose: 40 mg Meropenem 1 gm/ Dextrose 100 mls @ 100 mls/hr IVPB Q8H-IV [facility] PRN Reason: Protocol Last Admin: 08/08/16 09:50 Dose: 100 mls/hr Fentanyl 500 mcg/ Dextrose 100 mls @ 10 mls/hr IJ TITR [facility] PRN Reason: 50 MCG/HR Last Admin: 08/08/16 11:13 Dose: Not Given Fluconazole (Diflucan 200 Mg/Ns Premixed Ivpb -) 100 mls @ 100 mls/hr IVPB DAILY [facility] Last Admin: 08/08/16 09:50 Dose: 100 mls/hr Fat Emulsion Intravenous (Intralipid -) 250 mls @ 20.833 mls/hr IV DAILY@2200 [facility] Last Admin: 08/07/16 21:12 Dose: 20.833 mls/hr Famotidine/Sodium Chloride (Pepcid 20 Mg Premixed Ivpb -) 50 mls @ 100 mls/hr IVPB BID [facility] Last Admin: 08/08/16 11:12 Dose: 100 mls/hr Sodium Phosphate 15 mm/Magnesium Sulfate 4 gm/Insulin Human Regular 20 units / Thiamine HCl 100 mg/Multivitamins/Minerals 10 ml/Sodium Chloride 40 meq/Chromium /Copper/Manganese/Seleni/Zn 1 ml/ Sterile Water/Amino Acids/ Dextrose 1,200 mls @ 50 mls/hr IV DAILY@1600 [facility] Stop: 08/08/16 15:59 Last Admin: 08/07/16 17:14 Dose: 50 mls/hr Levofloxacin (Levaquin 750 Mg Premixed Ivpb -) 150 mls @ 100 mls/hr IVPB DAILY [facility] Last Admin: 08/08/16 10:40 Dose: 100 mls/hr Sodium Phosphate 15 mm/Magnesium Sulfate 2.95 gm/Insulin Human Regular 20 units / Thiamine HCl 100 mg/Multivitamins/Minerals 10 ml/Sodium Chloride 40 meq/ Chromium/Copper/Manganese/Seleni/Zn 1 ml/ Potassium Chloride 20 meq/ Sterile Water / Amino Acids/ Dextrose 1,200 mls @ 50 mls/hr IV DAILY@1600 [facility] Clindamycin Phosphate (Cleocin 300 Mg Premix Ivpb) 50 mls @ 100 mls/hr IVPB Q8H -IV [facility] Last Admin: 08/08/16 13:52 Dose: 104 mls/hr Insulin Aspart (Novolog Vial Sliding Scale -) 1 vial SQ ACHS [facility] PRN Reason: Protocol Last Admin: 08/08/16 11:21 Dose: 4 unit Midazolam HCl (Versed -) 2 mg IVPUSH Q4H PRN PRN Reason: AGITATION - Objective Vital Signs: Vital Signs Temperature 99.5 F 08/08/16 14:00 Pulse Rate 86 08/08/16 14:00 Respiratory Rate 20 08/08/16 14:00 Blood Pressure 99/50 08/08/16 14:00 O2 Sat by Pulse Oximetry (%) 100 08/08/16 11:35 Eyes: Yes: WNL HENT: Yes: WNL Neck: Yes: WNL Cardiovascular: Yes: Tachycardia Respiratory: Yes: Mechanically Ventilated Gastrointestinal: Yes: Normal Bowel Sounds ...Rectal Exam: Yes: Deferred Genitourinary: Yes: Bacon Present Breast(s): Yes: WNL Neurological: Yes: Alert, Other (Has some response to verbal commands) Labs: CBC, BMP 08/08/16 05:10 08/08/16 05:10 INR, PTT INR 1.36 (0.82-1.09) H 07/29/16 05:30 Fibrinogen > 700.0 mg/dL (238-498) H 07/31/16 05:40 Assessment/Plan Cleared for tracheostomy
[2016-08-08] MEDS ORDERED: INSULIN REGULAR IV SCH (16:00)
[2016-08-08] MEDS ORDERED: MAGNESIUM SULFATE IV SCH (16:00)
[2016-08-08] MEDS ORDERED: [UNRECOGNIZED DRUG - OTHER] IV SCH (16:00)
[2016-08-08] MEDS ORDERED: SODIUM PHOSPHATE IV SCH (16:00)
--- NOTE | 2016-08-08 16:46 | OP ---
Operative Note - Note: Operative Date: 08/08/16 Pre-Operative Diagnosis: Respiratory failure , sepsis. Ventilator dfependent Operation: Tracheostomy. Post-Operative Diagnosis: Same as Pre-op Surgeon: Ariadna Louise Instrumentation And Controls Technician: Fidelia Ibarra Anesthesiologist/GAS AND OIL SERVICER: Shon Souza Anesthesia: General Estimated Blood Loss (mls): 10 Operative Report Dictated: Yes
[2016-08-08] MEDS: CHLORHEXIDINE GLUCONATE 4% CLEANSER FOR DECOLONIZATION TP SCH (21:35)
[2016-08-08] MEDS: FAT EMULSIONS 250 ML IV SCH (21:35)
--- NOTE | 2016-08-08 21:58 | PROC ---
Central Line Insertion Indication: Poor Venous Access, Vasopressor Risks and Benefits Explained: Yes Consent on Chart: Yes Central Line: Triple Lumen Catheter Anesthesia: 1% Lidocaine Sterile Technique: Yes Ultrasound Guided Assistance: No Position: Right Subclavian Post Insertion: Yes: Bilateral Breath Sounds, Bilateral Chest Expansion, Chest X-Ray Ordered Sterile Dressing Applied: Yes
[2016-08-09] MEDS: FENTANYL INJECTION 500 MCG in DEXTROSE 5%-WATER - 90 ML IJ SCH ×3 (00:39→22:19)
[2016-08-09] MEDS: CLINDAMYCIN 300 MG PREMIX IVPB 50 ML IVPB SCH ×3 (01:57→18:08)
[2016-08-09] MEDS: MEROPENEM 1 GM in DEXTROSE 5%-WATER - 100 ML IVPB SCH ×3 (01:57→17:44)
[2016-08-09] MEDS ORDERED: HEMOQUE TEST 1 EACH EACH ONE (05:26)
[2016-08-09] MEDS: INSULIN SLIDING SCALE (NOVOLOG) 1 VIAL SQ SCH ×4 (06:11→22:15)
[2016-08-09 06:29] LABS: MCH 30.1 pg (25.7-33.7); MCHC 34.5 g/dl (32.0-36.0); MEAN CELL VOLUME 87.3 fl (80-96); MEAN PLT VOLUME 8.4 fl (7.5-11.1); PLATELET COUNT 619 K/MM3 (134-434); RDW 14.1 % (11.6-15.6); WHITE BLOOD COUNT 18.9 K/mm3 (4.0-10.0)
[2016-08-09] MEDS: ACETAMINOPHEN 1000 MG/100 ML VIAL (NON FORMULARY) IVPB PRN (06:45)
[2016-08-09 06:56] LABS: GLUCOSE,RANDOM 187 mg/dL (74-106); PHOSPHOROUS 3.5 mg/dL (2.5-4.9); SGOT/AST 28 U/L (15-37)
[2016-08-09 06:58] LABS: ALK PHOS 133 U/L (45-117); ANION GAP 8 (8-16); BILIRUBIN,TOTAL 0.4 mg/dL (0.2-1.0); CO2 28 mmol/L (21-32); COCKROFT - GAULT 202.3595; CREATININE 0.3 mg/dL (0.55-1.02); MAGNESIUM 1.8 mg/dL (1.8-2.4); SGPT/ALT 17 U/L (12-78); TOT PROT 5.4 g/dl (6.4-8.2)
[2016-08-09 07:05] LABS: ALBUMIN 0.9 g/dl (3.4-5.0)
[2016-08-09] MEDS ORDERED: PT OWN MED DRAWER 7, Y5N ONE ×3 (08:28→20:52)
[2016-08-09] MEDS: FAMOTIDINE 20 MG/50 ML IVPB 50 ML IVPB SCH ×2 (09:50→22:16)
[2016-08-09] MEDS: LEVOFLOXACIN 750 MG IVPB 150 ML IVPB SCH (09:50)
[2016-08-09] MEDS: CHLORHEXIDINE GLUCONATE 0.12% 15ML CUP MM SCH ×2 (09:50→22:16)
[2016-08-09] MEDS: FLUCONAZOLE 200 MG/NS 100 ML IVPB SCH (09:50)
[2016-08-09] MEDS: ENOXAPARIN NA (PORCINE) 40 MG/0.4 ML DISP.SYRIN SQ SCH ×2 (09:51→22:14)
--- NOTE | 2016-08-09 10:06 | PN ---
Progress Note (short form) - Note Progress Note: Post op day#1.S/P Trachiostomy under GA uneventful.P 95,BP110/53 and Spo2 96% on O2 40%.Patient stable.No any anesthesia related problem.Patient DC from the anesthesia care.
--- NOTE | 2016-08-09 10:42 | PN ---
Progress Note (short form) - Note Progress Note: Seen and examined in the ICU Trach placed New TLC placed BP stable off pressors Low grade fevers Current Medications Acetaminophen (Ofirmev Injection -) 1,000 mg IVPB Q6H PRN PRN Reason: FEVER Last Admin: 08/09/16 06:45 Dose: 1,000 mg Chlorhexidine Gluconate (Hibiclens For Decolonization -) 1 applic TP HS [facility] Last Admin: 08/08/16 21:35 Dose: 1 applic Chlorhexidine Gluconate (Peridex -) 15 ml MM BID [facility] Last Admin: 08/09/16 09:50 Dose: 15 ml Dextrose (D50w (Vial) -) 50 ml IVPUSH Q15M PRN PRN Reason: BLOOD SUGAR < 60 Last Admin: 07/24/16 06:30 Dose: 50 ml Enoxaparin Sodium (Lovenox -) 40 mg SQ BID [facility] Last Admin: 08/09/16 09:51 Dose: 40 mg Meropenem 1 gm/ Dextrose 100 mls @ 100 mls/hr IVPB Q8H-IV [facility] PRN Reason: Protocol Last Admin: 08/09/16 09:50 Dose: 100 mls/hr Fentanyl 500 mcg/ Dextrose 100 mls @ 10 mls/hr IJ TITR [facility] PRN Reason: 50 MCG/HR Last Admin: 08/09/16 00:39 Dose: 10 mls/hr Fluconazole (Diflucan 200 Mg/Ns Premixed Ivpb -) 100 mls @ 100 mls/hr IVPB DAILY [facility] Last Admin: 08/09/16 09:50 Dose: 100 mls/hr Fat Emulsion Intravenous (Intralipid -) 250 mls @ 20.833 mls/hr IV DAILY@2200 [facility] Last Admin: 08/08/16 21:35 Dose: 20.833 mls/hr Famotidine/Sodium Chloride (Pepcid 20 Mg Premixed Ivpb -) 50 mls @ 100 mls/hr IVPB BID [facility] Last Admin: 08/09/16 09:50 Dose: 100 mls/hr Levofloxacin (Levaquin 750 Mg Premixed Ivpb -) 150 mls @ 100 mls/hr IVPB DAILY [facility] Last Admin: 08/09/16 09:50 Dose: 100 mls/hr Sodium Phosphate 15 mm/Magnesium Sulfate 2.95 gm/Insulin Human Regular 20 units / Thiamine HCl 100 mg/Multivitamins/Minerals 10 ml/Sodium Chloride 40 meq/ Chromium/Copper/Manganese/Seleni/Zn 1 ml/ Potassium Chloride 20 meq/ Sterile Water / Amino Acids/ Dextrose 1,200 mls @ 50 mls/hr IV DAILY@1600 [facility] Last Admin: 08/08/16 17:18 Dose: 50 mls/hr Clindamycin Phosphate (Cleocin 300 Mg Premix Ivpb) 50 mls @ 100 mls/hr IVPB Q8H -IV [facility] Last Admin: 08/09/16 09:50 Dose: 100 mls/hr Insulin Aspart (Novolog Vial Sliding Scale -) 1 vial SQ ACHS [facility] PRN Reason: Protocol Last Admin: 08/09/16 06:11 Dose: 6 unit Midazolam HCl (Versed -) 2 mg IVPUSH Q4H PRN PRN Reason: AGITATION Last Admin: 08/08/16 21:37 Dose: 2 mg Vital Signs Period Temp Pulse Resp BP Sys/Major Pulse Ox Last 24 Hr 98.7 F-101.4 F 80-101 14-24 94-126/42-68 94-100 Intake & Output 08/06/16 08/07/16 08/08/16 08/09/16 23:59 23:59 23:59 23:59 Intake Total 2381 2520 2097 820 Output Total 1180 1550 1605 300 Balance 1201 970 492 520 Weight 71.1 kg 71.668 kg 70.534 kg 70.443 kg Exam: Calm, trach in place HEENT: PERRL CV: RRR Pulm: corase Abd: SNTND Ext: wrapped, cold CBCD WBC 18.9 K/mm3 (4.0-10.0) H 08/09/16 05:20 RBC 2.82 M/mm3 (3.60-5.2) L 08/09/16 05:20 Hgb 8.5 GM/dL (10.7-15.3) L 08/09/16 05:20 Hct 24.6 % (32.4-45.2) L 08/09/16 05:20 MCV 87.3 fl (80-96) 08/09/16 05:20 MCHC 34.5 g/dl (32.0-36.0) 08/09/16 05:20 RDW 14.1 % (11.6-15.6) 08/09/16 05:20 Plt Count 619 K/MM3 (134-434) H 08/09/16 05:20 MPV 8.4 fl (7.5-11.1) 08/09/16 05:20 CMP Sodium 137 mmol/L (136-145) 08/09/16 05:20 Potassium 3.7 mmol/L (3.5-5.1) 08/09/16 05:20 Chloride 101 mmol/L (98-107) 08/09/16 05:20 Carbon Dioxide 28 mmol/L (21-32) 08/09/16 05:20 Anion Gap 8 (8-16) 08/09/16 05:20 BUN 24 mg/dL (7-18) H 08/09/16 05:20 Creatinine 0.3 mg/dL (0.55-1.02) L 08/09/16 05:20 Creat Clearance w eGFR > 60 (>60) 08/09/16 05:20 Random Glucose 187 mg/dL (74-106) H 08/09/16 05:20 Calcium 8.0 mg/dL (8.5-10.1) L 08/09/16 05:20 Total Bilirubin 0.4 mg/dL (0.2-1.0) 08/09/16 05:20 AST 28 U/L (15-37) 08/09/16 05:20 ALT 17 U/L (12-78) 08/09/16 05:20 Alkaline Phosphatase 133 U/L (45-117) H 08/09/16 05:20 Total Protein 5.4 g/dl (6.4-8.2) L 08/09/16 05:20 Albumin 0.9 g/dl (3.4-5.0) L 08/09/16 05:20 CARDIAC ENZYMES Creatine Kinase 373 IU/L (26-192) H D 07/16/16 10:42 Troponin I < 0.02 ng/ml (0.00-0.05) 07/16/16 10:42 ASSESSMENT AND PLAN: Perforated Duodenal Ulcer Peritonitis s/p ex-lap/omental patch repair 07/16 Acute Respiratory Failure Septic Shock Acute Kidney Injury Lactic Acidosis Leukopenia/Thrombocytopenia likely from sepsis DM Encephalopathy -> etiology to be determined - ABX per ID - IVF - monitor urine output, creatinine - taper FiO2 to keep Spo2 >90% - VAP precautions - transfuse platelets if <20K, cryo if fibrinogen <100 - DVT/GI prophylaxis - continue ICU monitoring - Not an ideal candidate for wean given overall condition and persistent shock - Cont TPN Prudencio Pulm/CCM CCT: 35m
--- NOTE | 2016-08-09 11:32 | PN ---
Progress Note, Physician History of Present Illness: continues to be critical trach done no changes still spiking fevers maintaining bp - Current Medication List Current Medications: Active Medications Acetaminophen (Ofirmev Injection -) 1,000 mg IVPB Q6H PRN PRN Reason: FEVER Last Admin: 08/09/16 06:45 Dose: 1,000 mg Chlorhexidine Gluconate (Hibiclens For Decolonization -) 1 applic TP HS [facility] Last Admin: 08/08/16 21:35 Dose: 1 applic Chlorhexidine Gluconate (Peridex -) 15 ml MM BID [facility] Last Admin: 08/09/16 09:50 Dose: 15 ml Dextrose (D50w (Vial) -) 50 ml IVPUSH Q15M PRN PRN Reason: BLOOD SUGAR < 60 Last Admin: 07/24/16 06:30 Dose: 50 ml Enoxaparin Sodium (Lovenox -) 40 mg SQ BID [facility] Last Admin: 08/09/16 09:51 Dose: 40 mg Meropenem 1 gm/ Dextrose 100 mls @ 100 mls/hr IVPB Q8H-IV [facility] PRN Reason: Protocol Last Admin: 08/09/16 09:50 Dose: 100 mls/hr Fentanyl 500 mcg/ Dextrose 100 mls @ 10 mls/hr IJ TITR [facility] PRN Reason: 50 MCG/HR Last Admin: 08/09/16 00:39 Dose: 10 mls/hr Fluconazole (Diflucan 200 Mg/Ns Premixed Ivpb -) 100 mls @ 100 mls/hr IVPB DAILY [facility] Last Admin: 08/09/16 09:50 Dose: 100 mls/hr Fat Emulsion Intravenous (Intralipid -) 250 mls @ 20.833 mls/hr IV DAILY@2200 [facility] Last Admin: 08/08/16 21:35 Dose: 20.833 mls/hr Famotidine/Sodium Chloride (Pepcid 20 Mg Premixed Ivpb -) 50 mls @ 100 mls/hr IVPB BID [facility] Last Admin: 08/09/16 09:50 Dose: 100 mls/hr Levofloxacin (Levaquin 750 Mg Premixed Ivpb -) 150 mls @ 100 mls/hr IVPB DAILY [facility] Last Admin: 08/09/16 09:50 Dose: 100 mls/hr Sodium Phosphate 15 mm/Magnesium Sulfate 2.95 gm/Insulin Human Regular 20 units / Thiamine HCl 100 mg/Multivitamins/Minerals 10 ml/Sodium Chloride 40 meq/ Chromium/Copper/Manganese/Seleni/Zn 1 ml/ Potassium Chloride 20 meq/ Sterile Water / Amino Acids/ Dextrose 1,200 mls @ 50 mls/hr IV DAILY@1600 [facility] Last Admin: 08/08/16 17:18 Dose: 50 mls/hr Clindamycin Phosphate (Cleocin 300 Mg Premix Ivpb) 50 mls @ 100 mls/hr IVPB Q8H -IV [facility] Last Admin: 08/09/16 09:50 Dose: 100 mls/hr Insulin Aspart (Novolog Vial Sliding Scale -) 1 vial SQ ACHS [facility] PRN Reason: Protocol Last Admin: 08/09/16 06:11 Dose: 6 unit Midazolam HCl (Versed -) 2 mg IVPUSH Q4H PRN PRN Reason: AGITATION Last Admin: 08/08/16 21:37 Dose: 2 mg - Objective Vital Signs: Vital Signs Temperature 101.4 F H 08/09/16 06:00 Pulse Rate 99 H 08/09/16 10:00 Respiratory Rate 26 H 08/09/16 10:00 Blood Pressure 126/42 08/09/16 06:00 O2 Sat by Pulse Oximetry (%) 100 08/09/16 11:19 Constitutional: Yes: Other Cardiovascular: Yes: Regular Rate and Rhythm Respiratory: Yes: Mechanically Ventilated, Other (trach) Gastrointestinal: Yes: Other Musculoskeletal: Yes: Other Extremities: Yes: Other (dry gangrene of the tips of toes and fingers) Neurological: Yes: Alert, Other (just opens eyes) Labs: CBC, BMP 08/09/16 05:20 08/09/16 05:20 INR, PTT INR 1.36 (0.82-1.09) H 07/29/16 05:30 Fibrinogen > 700.0 mg/dL (238-498) H 07/31/16 05:40 Assessment/Plan Problem List - Problems (1) Abdominal pain Code(s): R10.9 - UNSPECIFIED ABDOMINAL PAIN Qualifiers: Qualified Code(s): R10.33 - Periumbilical pain (2) Perforated abdominal viscus Code(s): [id number] - (3) Perforated viscus Code(s): R19.8 - OTH SYMPTOMS AND SIGNS INVOLVING THE DGSTV SYS AND ABDOMEN (4) Hypertension Code(s): I10 - ESSENTIAL (PRIMARY) HYPERTENSION Qualifiers: Qualified Code(s): I10 - Essential (primary) hypertension lactic acidosis fevers generalized swelling gangrene of the tip of the fingers noted plan continues to be critical continue current mgmt watch for fevers tracheostomy done patient prognosis is poor mentally though patient opens eyes rest as per icu cc time 40 min
[2016-08-09 12:16] LABS: INR 1.5 (0.82-1.09); PROTHROMBIN TIME (PATIENT) 16.6 SEC (9.98-11.88)
--- NOTE | 2016-08-09 13:14 | PN ---
Progress Note, Physician Chief Complaint: Fever persists History of Present Illness: S/P tracheotomy - Current Medication List Current Medications: Active Medications Acetaminophen (Ofirmev Injection -) 1,000 mg IVPB Q6H PRN PRN Reason: FEVER Last Admin: 08/09/16 06:45 Dose: 1,000 mg Chlorhexidine Gluconate (Hibiclens For Decolonization -) 1 applic TP HS [facility] BEDS AT [facility] Last Admin: 08/08/16 21:35 Dose: 1 applic Chlorhexidine Gluconate (Peridex -) 15 ml MM BID [facility] 234 BEDS AT [facility] Last Admin: 08/09/16 09:50 Dose: 15 ml Dextrose (D50w (Vial) -) 50 ml IVPUSH Q15M PRN PRN Reason: BLOOD SUGAR < 60 Last Admin: 07/24/16 06:30 Dose: 50 ml Enoxaparin Sodium (Lovenox -) 40 mg SQ BID [facility] 234 BEDS [facility] Last Admin: 08/09/16 09:51 Dose: 40 mg Meropenem 1 gm/ Dextrose 100 mls @ 100 mls/hr IVPB Q8H-IV [facility] PRN Reason: Protocol Last Admin: 08/09/16 09:50 Dose: 100 mls/hr Fentanyl 500 mcg/ Dextrose 100 mls @ 10 mls/hr IJ TITR [facility] PRN Reason: 50 MCG/HR Last Admin: 08/09/16 11:50 Dose: 10 mls/hr Fluconazole (Diflucan 200 Mg/Ns Premixed Ivpb -) 100 mls @ 100 mls/hr IVPB DAILY [facility] 234 BEDS AT [facility] Last Admin: 08/09/16 09:50 Dose: 100 mls/hr Fat Emulsion Intravenous (Intralipid -) 250 mls @ 20.833 mls/hr IV DAILY@2200 [facility] 234 BEDS AT [facility] Last Admin: 08/08/16 21:35 Dose: 20.833 mls/hr Famotidine/Sodium Chloride (Pepcid 20 Mg Premixed Ivpb -) 50 mls @ 100 mls/hr IVPB BID [facility] 234 BEDS AT [facility] Last Admin: 08/09/16 09:50 Dose: 100 mls/hr Levofloxacin (Levaquin 750 Mg Premixed Ivpb -) 150 mls @ 100 mls/hr IVPB DAILY [facility] 234 BEDS AT [facility] Last Admin: 08/09/16 09:50 Dose: 100 mls/hr Sodium Phosphate 15 mm/Magnesium Sulfate 2.95 gm/Insulin Human Regular 20 units / Thiamine HCl 100 mg/Multivitamins/Minerals 10 ml/Sodium Chloride 40 meq/ Chromium/Copper/Manganese/Seleni/Zn 1 ml/ Potassium Chloride 20 meq/ Sterile Water / Amino Acids/ Dextrose 1,200 mls @ 50 mls/hr IV DAILY@1600 [facility]S [facility]CLUDE 234 BEDS AT [facility] Stop: 08/09/16 15:59 Last Admin: 08/08/16 17:18 Dose: 50 mls/hr Clindamycin Phosphate (Cleocin 300 Mg Premix Ivpb) 50 mls @ 100 mls/hr IVPB Q8H -IV [facility] Last Admin: 08/09/16 09:50 Dose: 100 mls/hr Sodium Phosphate 15 mm/Magnesium Sulfate 2.95 gm/Insulin Human Regular 20 units / Thiamine HCl 100 mg/ Sodium Chloride 40 meq/ Potassium Chloride 20 meq/ Multivitamins /Minerals 10 ml/ Sterile Water / Amino Acids/ Dextrose 1,200 mls @ 50 mls/hr IV DAILY@1600 [facility]CLUDE 234 BEDS AT [facility] Insulin Aspart (Novolog Vial Sliding Scale -) 1 vial SQ ACHS COUNTS [facility]CLUDE 234 BEDS AT [facility] PRN Reason: Protocol Last Admin: 08/09/16 11:52 Dose: 2 unit Midazolam HCl (Versed -) 2 mg IVPUSH Q4H PRN PRN Reason: AGITATION Last Admin: 08/08/16 21:37 Dose: 2 mg - Objective Vital Signs: Vital Signs Temperature 100.4 F H 08/09/16 12:00 Pulse Rate 95 H 08/09/16 12:00 Respiratory Rate 19 08/09/16 12:00 Blood Pressure 100/49 08/09/16 12:00 O2 Sat by Pulse Oximetry (%) 100 08/09/16 11:19 Constitutional: Yes: Moderate Distress Eyes: Yes: WNL HENT: Yes: WNL Neck: Yes: WNL Cardiovascular: Yes: WNL Respiratory: Yes: Mechanically Ventilated Gastrointestinal: Yes: Hypoactive Bowel Sounds, Other ( Fistula draing less 150cc/24 hrs) ...Rectal Exam: Yes: Deferred Genitourinary: Yes: Bacon Present Neurological: Yes: Alert Labs: CBC, BMP 08/09/16 05:20 08/09/16 05:20 INR, PTT INR 1.50 (0.82-1.09) H 08/09/16 11:30 Fibrinogen > 700.0 mg/dL (238-498) H 07/31/16 05:40 Assessment/Plan As per ICU attending
--- NOTE | 2016-08-09 14:10 | OP ---
DATE OF OPERATION: DATE OF DICTATION: 08/08/2016 PREOPERATIVE DIAGNOSES: Status post perforated duodenal ulcer, status post repair, septic shock, diffuse arterial insufficiency, respirator dependent, respiratory failure, and prolonged intubation. OPERATIVE PROCEDURE: Tracheostomy. POSTOPERATIVE DIAGNOSES: Status post perforated duodenal ulcer, status post repair, septic shock, diffuse arterial insufficiency, respirator dependent, respiratory failure, and prolonged intubation. Patient was brought in, intubated, and on a ventilator from the ICU. Patient was positioned with neck in extension. Neck was painted and draped. Patient was given general anesthesia. Timeout was called. A vertical midline incision was made in the midline in the suprasternal area in the lower neck. I was able to incise the skin, subcutaneous tissue, platysma, and deep cervical fascia. The anterior jugular veins were ligated with silk sutures and divided. Strap muscles were then divided in the midline and the pretracheal fascia was identified and incised. The tracheal rings were then identified. The trachea was stabilized with a tracheal hook around the cricoid and a vertical tracheotomy was made over the 3rd and 4th tracheal rings. A No. 7 double-lumen Portex tracheostomy tube was then inserted through the tracheotomy, after withdrawing the endotracheal tube. The balloon was inflated. Tracheostomy tube was connected to the ventilator . The tracheostomy was then anchored with 0 silk sutures and a strap around the neck. Patient was transferred back to the ICU in satisfactory and stable condition. Nickolas [id number] MTDD
[2016-08-09] MEDS: [UNRECOGNIZED DRUG - OTHER] IV SCH (16:00)
[2016-08-09] MEDS: SODIUM PHOSPHATE IV SCH (16:00)
[2016-08-09] MEDS: INSULIN REGULAR IV SCH (16:00)
[2016-08-09] MEDS: MAGNESIUM SULFATE IV SCH (16:00)
[2016-08-09] MEDS: CHLORHEXIDINE GLUCONATE 4% CLEANSER FOR DECOLONIZATION TP SCH (22:09)
[2016-08-09] MEDS: FAT EMULSIONS 250 ML IV SCH (22:14)
[2016-08-10] MEDS: MEROPENEM 1 GM in DEXTROSE 5%-WATER - 100 ML IVPB SCH ×3 (01:31→17:15)
[2016-08-10] MEDS: CLINDAMYCIN 300 MG PREMIX IVPB 50 ML IVPB SCH ×3 (01:32→17:15)
[2016-08-10 06:06] LABS: MCH 29.1 pg (25.7-33.7); MCHC 33.4 g/dl (32.0-36.0); PLATELET COUNT 611 K/MM3 (134-434); RDW 14.1 % (11.6-15.6); WHITE BLOOD COUNT 18.4 K/mm3 (4.0-10.0)
[2016-08-10] MEDS: INSULIN SLIDING SCALE (NOVOLOG) 1 VIAL SQ SCH ×4 (06:24→22:30)
[2016-08-10 06:43] LABS: CALCIUM 8.2 mg/dL (8.5-10.1); COCKROFT - GAULT 203.915; CREATININE 0.3 mg/dL (0.55-1.02); MAGNESIUM 1.8 mg/dL (1.8-2.4); PHOSPHOROUS 3.4 mg/dL (2.5-4.9)
[2016-08-10] MEDS ORDERED: PT OWN MED DRAWER 7, Y5N ONE ×3 (07:37→20:03)
[2016-08-10] MEDS: FENTANYL INJECTION 500 MCG in DEXTROSE 5%-WATER - 90 ML IJ SCH (09:21)
[2016-08-10] MEDS: ACETAMINOPHEN 1000 MG/100 ML VIAL (NON FORMULARY) IVPB PRN (09:23)
[2016-08-10] MEDS: FAMOTIDINE 20 MG/50 ML IVPB 50 ML IVPB SCH ×2 (09:23→22:00)
[2016-08-10] MEDS: LEVOFLOXACIN 750 MG IVPB 150 ML IVPB SCH (09:24)
[2016-08-10] MEDS: CHLORHEXIDINE GLUCONATE 0.12% 15ML CUP MM SCH ×2 (09:25→22:00)
[2016-08-10] MEDS: FLUCONAZOLE 200 MG/NS 100 ML IVPB SCH (09:25)
[2016-08-10] MEDS: ENOXAPARIN NA (PORCINE) 40 MG/0.4 ML DISP.SYRIN SQ SCH ×2 (09:26→22:00)
--- NOTE | 2016-08-10 11:32 | PN ---
Progress Note (short form) - Note Progress Note: PULM / CCM -Seen and examined in the ICU -Trach in place -BP stable off pressors -CPAP trials in progress ACTIVE MEDS: Acetaminophen (Ofirmev Injection -) 1,000 mg IVPB Q6H PRN PRN Reason: FEVER Last Admin: 08/10/16 09:23 Dose: 1,000 mg Chlorhexidine Gluconate (Hibiclens For Decolonization -) 1 applic TP HS [facility] Last Admin: 08/09/16 22:09 Dose: 1 applic Chlorhexidine Gluconate (Peridex -) 15 ml MM BID [facility] Last Admin: 08/10/16 09:25 Dose: 15 ml Dextrose (D50w (Vial) -) 50 ml IVPUSH Q15M PRN PRN Reason: BLOOD SUGAR < 60 Last Admin: 07/24/16 06:30 Dose: 50 ml Enoxaparin Sodium (Lovenox -) 40 mg SQ BID [facility] Last Admin: 08/10/16 09:26 Dose: 40 mg Meropenem 1 gm/ Dextrose 100 mls @ 100 mls/hr IVPB Q8H-IV [facility] PRN Reason: Protocol Last Admin: 08/10/16 09:22 Dose: 100 mls/hr Fentanyl 500 mcg/ Dextrose 100 mls @ 10 mls/hr IJ TITR [facility] PRN Reason: 50 MCG/HR Last Admin: 08/10/16 09:21 Dose: 10 mls/hr Fluconazole (Diflucan 200 Mg/Ns Premixed Ivpb -) 100 mls @ 100 mls/hr IVPB DAILY [facility] Last Admin: 08/10/16 09:25 Dose: 100 mls/hr Fat Emulsion Intravenous (Intralipid -) 250 mls @ 20.833 mls/hr IV DAILY@2200 [facility] Last Admin: 08/09/16 22:14 Dose: 20.833 mls/hr Famotidine/Sodium Chloride (Pepcid 20 Mg Premixed Ivpb -) 50 mls @ 100 mls/hr IVPB BID [facility] Last Admin: 08/10/16 09:23 Dose: 100 mls/hr Levofloxacin (Levaquin 750 Mg Premixed Ivpb -) 150 mls @ 100 mls/hr IVPB DAILY [facility] Last Admin: 08/10/16 09:24 Dose: 100 mls/hr Clindamycin Phosphate (Cleocin 300 Mg Premix Ivpb) 50 mls @ 100 mls/hr IVPB Q8H -IV [facility] Last Admin: 08/10/16 09:21 Dose: 100 mls/hr Sodium Phosphate 15 mm/Magnesium Sulfate 2.95 gm/Insulin Human Regular 20 units / Thiamine HCl 100 mg/ Sodium Chloride 40 meq/ Potassium Chloride 20 meq/ Multivitamins /Minerals 10 ml/ Sterile Water / Amino Acids/ Dextrose 1,200 mls @ 50 mls/hr IV DAILY@1600 [facility] Last Admin: 08/09/16 16:00 Dose: 50 mls/hr Insulin Aspart (Novolog Vial Sliding Scale -) 1 vial SQ ACHS [facility] PRN Reason: Protocol Last Admin: 08/10/16 11:11 Dose: 2 unit V/S Period Temp Pulse Resp BP Sys/Major Pulse Ox Last 24 Hr 100.2 F-101.2 F 95-104 16-25 94-133/44-80 97-100 Intake & Output 08/07/16 08/08/16 08/09/16 08/10/16 23:59 23:59 23:59 23:59 Intake Total 2520 2097 2580 720 Output Total 1550 1605 1500 360 Balance 549 294 0443 360 Weight 71.668 kg 70.534 kg 70.443 kg 70.987 kg EXAM: GEN: Elderly woman in bed, Trached, sick, gangrenous fingers & toes HEENT: PERRL, an-icteric, MMM Pulm: coarse CV: nml S1 S2, RRR ABD: obese, superficial xeroform dressings, R LQ fistula, + BS, S/S N/T X4Q EXT: thready distal pulses, xeroform wrappings & gangrenous fingers & toes. NEURO: Tracks but completly encephalopathic CBC, BMP 08/10/16 05:15 08/10/16 05:15 Microbiology 07/29/16 03:00 Drainage (Swab) Gram Stain - Final 07/29/16 03:00 Drainage (Swab) Wound Culture - Final Acinetobacter Baumannii/Haemol Yeast Like Organism 07/19/16 17:10 Blood - Peripheral Venous Blood Culture - Final NO GROWTH AFTER 5 DAYS INCUBATION 07/19/16 17:10 Blood - Peripheral Venous Blood Culture - Final NO GROWTH AFTER 5 DAYS INCUBATION 07/19/16 17:00 Blood - Central Line Blood Culture - Final NO GROWTH AFTER 5 DAYS INCUBATION 07/16/16 17:00 Blood - Peripheral Venous Blood Culture - Final NO GROWTH AFTER 5 DAYS INCUBATION 07/16/16 17:00 Blood - Peripheral Venous Blood Culture - Final NO GROWTH AFTER 5 DAYS INCUBATION 07/16/16 19:28 Tissue-Other Gram Stain - Final 07/16/16 19:28 Tissue-Other Tissue Culture - Final Escherichia Coli Enterobacter Aerogenes Streptococcus Viridans Yeast Like Organism#2 07/16/16 19:28 Tissue-Other Anaerobic Culture - Final Streptococcus Viridans 07/16/16 19:00 Peritoneal Fluid Gram Stain - Final 07/16/16 19:00 Peritoneal Fluid Body Fluid Culture - Final Escherichia Coli Streptococcus Viridans Yeast Like Organism Enterobacter Aerogenes 07/16/16 19:00 Peritoneal Fluid Anaerobic Culture - Final Streptococcus Viridans 07/16/16 23:45 Nose MRSA Screen - Final NO MRSA ISOLATED 07/16/16 23:45 Nares - Mrsa Screen - Right MRSA Screen - Final NO MRSA ISOLATED 07/16/16 13:45 Urine - Urine - Catheterized Urine Culture - Final NO GROWTH OBTAINED CXR: NONE ASSESS: S/p Perforated Duodenal Ulcer s/p ex-lap/omental patch repair 07/16 Septic Shock Smoldering Peritonitis Respiratory Failure Acute Kidney Injury Lactic Acidosis Leukopenia/Thrombocytopenia likely from sepsis DM Encephalopathy -> etiology to be determined PLAN: - Cont vent Weaning - Taper FiO2 to keep Spo2 >90% - VAP precautions - ABX per ID - monitor UOP - Trend BUN/Cr - transfuse platelets if <20K, cryo if fibrinogen <100 - Cont TPN - Spoke w/ Vanessa Granado from [place] --> Transfer to LTACH - DVT/GI prophylaxis [id number] Pulm/CCM CCT: 37m
--- NOTE | 2016-08-10 13:03 | PN ---
Progress Note, Physician History of Present Illness: patient slightly better on cpap tolerating still with fevers - Current Medication List Current Medications: Active Medications Acetaminophen (Ofirmev Injection -) 1,000 mg IVPB Q6H PRN PRN Reason: FEVER Last Admin: 08/10/16 09:23 Dose: 1,000 mg Chlorhexidine Gluconate (Hibiclens For Decolonization -) 1 applic TP HS [facility] Last Admin: 08/09/16 22:09 Dose: 1 applic Chlorhexidine Gluconate (Peridex -) 15 ml MM BID [facility] Last Admin: 08/10/16 09:25 Dose: 15 ml Dextrose (D50w (Vial) -) 50 ml IVPUSH Q15M PRN PRN Reason: BLOOD SUGAR < 60 Last Admin: 07/24/16 06:30 Dose: 50 ml Enoxaparin Sodium (Lovenox -) 40 mg SQ BID [facility] Last Admin: 08/10/16 09:26 Dose: 40 mg Meropenem 1 gm/ Dextrose 100 mls @ 100 mls/hr IVPB Q8H-IV [facility] PRN Reason: Protocol Last Admin: 08/10/16 09:22 Dose: 100 mls/hr Fentanyl 500 mcg/ Dextrose 100 mls @ 10 mls/hr IJ TITR [facility] PRN Reason: 50 MCG/HR Last Admin: 08/10/16 09:21 Dose: 10 mls/hr Fluconazole (Diflucan 200 Mg/Ns Premixed Ivpb -) 100 mls @ 100 mls/hr IVPB DAILY [facility] Last Admin: 08/10/16 09:25 Dose: 100 mls/hr Fat Emulsion Intravenous (Intralipid -) 250 mls @ 20.833 mls/hr IV DAILY@2200 [facility] Last Admin: 08/09/16 22:14 Dose: 20.833 mls/hr Famotidine/Sodium Chloride (Pepcid 20 Mg Premixed Ivpb -) 50 mls @ 100 mls/hr IVPB BID [facility] Last Admin: 08/10/16 09:23 Dose: 100 mls/hr Levofloxacin (Levaquin 750 Mg Premixed Ivpb -) 150 mls @ 100 mls/hr IVPB DAILY [facility] Last Admin: 08/10/16 09:24 Dose: 100 mls/hr Clindamycin Phosphate (Cleocin 300 Mg Premix Ivpb) 50 mls @ 100 mls/hr IVPB Q8H -IV [facility] Last Admin: 08/10/16 09:21 Dose: 100 mls/hr Sodium Phosphate 15 mm/Magnesium Sulfate 2.95 gm/Insulin Human Regular 20 units / Thiamine HCl 100 mg/ Sodium Chloride 40 meq/ Potassium Chloride 20 meq/ Multivitamins /Minerals 10 ml/ Sterile Water / Amino Acids/ Dextrose 1,200 mls @ 50 mls/hr IV DAILY@1600 [facility] Last Admin: 08/09/16 16:00 Dose: 50 mls/hr Insulin Aspart (Novolog Vial Sliding Scale -) 1 vial SQ ACHS [facility] PRN Reason: Protocol Last Admin: 08/10/16 11:11 Dose: 2 unit - Objective Vital Signs: Vital Signs Temperature 100 F H 08/10/16 11:24 Pulse Rate 95 H 08/10/16 11:24 Respiratory Rate 22 08/10/16 11:37 Blood Pressure 103/49 08/10/16 11:24 O2 Sat by Pulse Oximetry (%) 100 08/10/16 11:43 Constitutional: Yes: Other Eyes: Yes: Other (opens eyes sometimes follows commands) Neck: Yes: Other (traceostomy) Cardiovascular: Yes: Regular Rate and Rhythm Respiratory: Yes: Mechanically Ventilated, Other (tracehostomy) Gastrointestinal: Yes: Soft, Other (minimal draiange thro the fistula) Musculoskeletal: Yes: Other Extremities: Yes: Other (mummification of her fingers--dry gangrene) Wound/Incision: Yes: Other Neurological: Yes: Alert, Other (minimal response to commands) Psychiatric: Yes: Other Labs: CBC, BMP 08/10/16 05:15 08/10/16 05:15 INR, PTT INR 1.50 (0.82-1.09) H 08/09/16 11:30 Fibrinogen > 700.0 mg/dL (238-498) H 07/31/16 05:40 - ....Imaging Chest X-ray: Report Reviewed, Image Reviewed Assessment/Plan Problem List - Problems (1) Abdominal pain Code(s): R10.9 - UNSPECIFIED ABDOMINAL PAIN Qualifiers: Qualified Code(s): R10.33 - Periumbilical pain (2) Perforated abdominal viscus Code(s): [id number] - (3) Perforated viscus Code(s): R19.8 - OTH SYMPTOMS AND SIGNS INVOLVING THE DGSTV SYS AND ABDOMEN (4) Hypertension Code(s): I10 - ESSENTIAL (PRIMARY) HYPERTENSION Qualifiers: Qualified Code(s): I10 - Essential (primary) hypertension lactic acidosis fevers generalized swelling gangrene of the tip of the fingers noted plan continues to be critical continue current mgmt watch for fevers continue to monitor labx rest as per icu cc time 40 min
--- NOTE | 2016-08-10 15:35 | PN ---
Progress Note, Physician Chief Complaint: feels OK History of Present Illness: On respirator being weaned Continues to spike fever - Current Medication List Current Medications: Active Medications Acetaminophen (Ofirmev Injection -) 1,000 mg IVPB Q6H PRN PRN Reason: FEVER Last Admin: 08/10/16 09:23 Dose: 1,000 mg Chlorhexidine Gluconate (Hibiclens For Decolonization -) 1 applic TP HS [facility] Last Admin: 08/09/16 22:09 Dose: 1 applic Chlorhexidine Gluconate (Peridex -) 15 ml MM BID [facility] Last Admin: 08/10/16 09:25 Dose: 15 ml Dextrose (D50w (Vial) -) 50 ml IVPUSH Q15M PRN PRN Reason: BLOOD SUGAR < 60 Last Admin: 07/24/16 06:30 Dose: 50 ml Enoxaparin Sodium (Lovenox -) 40 mg SQ BID [facility] Last Admin: 08/10/16 09:26 Dose: 40 mg Meropenem 1 gm/ Dextrose 100 mls @ 100 mls/hr IVPB Q8H-IV [facility] PRN Reason: Protocol Last Admin: 08/10/16 09:22 Dose: 100 mls/hr Fentanyl 500 mcg/ Dextrose 100 mls @ 10 mls/hr IJ TITR [facility] PRN Reason: 50 MCG/HR Last Admin: 08/10/16 09:21 Dose: 10 mls/hr Fluconazole (Diflucan 200 Mg/Ns Premixed Ivpb -) 100 mls @ 100 mls/hr IVPB DAILY [facility] Last Admin: 08/10/16 09:25 Dose: 100 mls/hr Fat Emulsion Intravenous (Intralipid -) 250 mls @ 20.833 mls/hr IV DAILY@2200 [facility] Last Admin: 08/09/16 22:14 Dose: 20.833 mls/hr Famotidine/Sodium Chloride (Pepcid 20 Mg Premixed Ivpb -) 50 mls @ 100 mls/hr IVPB BID [facility] Last Admin: 08/10/16 09:23 Dose: 100 mls/hr Levofloxacin (Levaquin 750 Mg Premixed Ivpb -) 150 mls @ 100 mls/hr IVPB DAILY [facility] Last Admin: 08/10/16 09:24 Dose: 100 mls/hr Clindamycin Phosphate (Cleocin 300 Mg Premix Ivpb) 50 mls @ 100 mls/hr IVPB Q8H -IV [facility] Last Admin: 08/10/16 09:21 Dose: 100 mls/hr Sodium Phosphate 15 mm/Magnesium Sulfate 2.95 gm/Insulin Human Regular 20 units / Thiamine HCl 100 mg/ Sodium Chloride 40 meq/ Potassium Chloride 20 meq/ Multivitamins /Minerals 10 ml/ Sterile Water / Amino Acids/ Dextrose 1,200 mls @ 50 mls/hr IV DAILY@1600 [facility] Last Admin: 08/09/16 16:00 Dose: 50 mls/hr Insulin Aspart (Novolog Vial Sliding Scale -) 1 vial SQ ACHS [facility] PRN Reason: Protocol Last Admin: 08/10/16 11:11 Dose: 2 unit - Objective Vital Signs: Vital Signs Temperature 98.9 F 08/10/16 14:00 Pulse Rate 85 08/10/16 14:00 Respiratory Rate 22 08/10/16 14:00 Blood Pressure 95/50 08/10/16 14:00 O2 Sat by Pulse Oximetry (%) 100 08/10/16 11:43 Constitutional: Yes: Mild Distress Eyes: Yes: WNL HENT: Yes: WNL, Tonsillar Exudate Cardiovascular: Yes: WNL Respiratory: Yes: Mechanically Ventilated Gastrointestinal: Yes: WNL ...Rectal Exam: Yes: WNL Genitourinary: Yes: WNL Musculoskeletal: Yes: Muscle Weakness Labs: CBC, BMP 08/10/16 05:15 08/10/16 05:15 INR, PTT INR 1.50 (0.82-1.09) H 08/09/16 11:30 Fibrinogen > 700.0 mg/dL (238-498) H 07/31/16 05:40 Assessment/Plan Continue same trt
[2016-08-10] MEDS: INSULIN REGULAR IV SCH (16:00)
[2016-08-10] MEDS: [UNRECOGNIZED DRUG - OTHER] IV SCH (16:00)
[2016-08-10] MEDS: SODIUM PHOSPHATE IV SCH (16:00)
[2016-08-10] MEDS: MAGNESIUM SULFATE IV SCH (16:00)
--- NOTE | 2016-08-10 21:07 | PN ---
Progress Note (short form) - Note Progress Note: 65 year old female history of hypertension, HLD, DM, came to hospital for abdominal pain and had surgery for perforation and developed some complication and developed anoxic brain injury she recently had tracheostomy and off pressures. She also developed gangrene due to pressures. On examianton opens her eye, and have eye contact, spontaneously blinking and unable to follow command she is on mild sedation and on fentanyl drip pupils are reactive, corneal reflex is present breathing spontaneously, bp is maintained CT reviewed Assessment and Plan- Anxoic encephalopathy with cognitive dysfunction, overall prgnosis is guarded. There is no active issue, spoke to Nurse taking care of Patient She seems to be stable continue current level of supportive care Dr Castellon would follow Regards Bradley García MD
[2016-08-10] MEDS: CHLORHEXIDINE GLUCONATE 4% CLEANSER FOR DECOLONIZATION TP SCH (22:00)
[2016-08-10] MEDS: FAT EMULSIONS 250 ML IV SCH (22:00)
[2016-08-11] MEDS: FENTANYL INJECTION 500 MCG in DEXTROSE 5%-WATER - 90 ML IJ SCH ×2 (00:01→06:04)
[2016-08-11] MEDS: CLINDAMYCIN 300 MG PREMIX IVPB 50 ML IVPB SCH ×3 (01:46→17:30)
[2016-08-11] MEDS: MEROPENEM 1 GM in DEXTROSE 5%-WATER - 100 ML IVPB SCH ×3 (01:47→17:41)
[2016-08-11] MEDS ORDERED: HEMOQUE TEST 1 EACH EACH ONE (04:59)
[2016-08-11] MEDS: ACETAMINOPHEN 1000 MG/100 ML VIAL (NON FORMULARY) IVPB PRN (05:15)
[2016-08-11] MEDS: INSULIN SLIDING SCALE (NOVOLOG) 1 VIAL SQ SCH ×4 (06:02→21:21)
[2016-08-11 06:20] LABS: MCH 28.9 pg (25.7-33.7); MCHC 32.8 g/dl (32.0-36.0); MEAN CELL VOLUME 88.2 fl (80-96); MEAN PLT VOLUME 7.9 fl (7.5-11.1); PLATELET COUNT 625 K/MM3 (134-434); RDW 14.1 % (11.6-15.6); WHITE BLOOD COUNT 16.5 K/mm3 (4.0-10.0)
[2016-08-11 06:42] LABS: CALCIUM 7.9 mg/dL (8.5-10.1); COCKROFT - GAULT 203.915; CREATININE 0.3 mg/dL (0.55-1.02); MAGNESIUM 1.7 mg/dL (1.8-2.4); PHOSPHOROUS 3.5 mg/dL (2.5-4.9)
[2016-08-11] MEDS ORDERED: PT OWN MED DRAWER 7, Y5N ONE ×2 (09:20→16:29)
[2016-08-11] MEDS: LEVOFLOXACIN 750 MG IVPB 150 ML IVPB SCH (09:22)
[2016-08-11] MEDS: FAMOTIDINE 20 MG/50 ML IVPB 50 ML IVPB SCH ×2 (09:22→21:06)
[2016-08-11] MEDS: ENOXAPARIN NA (PORCINE) 40 MG/0.4 ML DISP.SYRIN SQ SCH ×2 (09:22→21:05)
[2016-08-11] MEDS: CHLORHEXIDINE GLUCONATE 0.12% 15ML CUP MM SCH ×2 (09:23→21:07)
[2016-08-11 09:48] LABS: ARTERIAL BLD GAS O2 SATURATION 97.3 % (90-98.9); ARTERIAL BLOOD GAS BASE EXCESS 3.7 meq/l (-2-2); ARTERIAL BLOOD GAS HCO3 27.4 meq/L (22-26); ARTERIAL BLOOD GAS pH 7.46 (7.35-7.45)
[2016-08-11 09:51] LABS: ALLENS TEST POSITIVE; ART PUNCT SITE RIGHT BRACHIAL; LPM/O2% 40%; PT. ON O2? YES; TYPE OF O2 CPAP
[2016-08-11 09:52] LABS: MECH. VENT. Y; VT/PRESS PSV 10CM
--- NOTE | 2016-08-11 11:30 | PN ---
Progress Note (short form) - Note Progress Note: Neurology History of Present Illness The patient is a 65-year-old woman, with a significant past medical history of hypertension, hypercholesterolemia, diabetes mellitus and GI disorders who presented to the emergency department via walk-in for further evaluation of abdominal pain for the past 3-4 days with unintentional 20 lb weight loss over the past three months. She required surgical intervention as documented by Dr. Louise. Thereafter, complicated course and patient in ICU, off sedation for several days. CT head without acute changes. Patient was not awakening initially and concern was hypoperfusion and possible anoxic brain injury. 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 Since, has awoken and is keeps eye open, occasional tracking and previously occasional spontaneous extremity movement but minimal now. Does have notable gangrene of fingers and toes. protecting airway and remains intubated and on vent, status post trach as she was not able to tolerate weaning. Toxic metabolic vs hypoperfusion and anoxic brain injury. Would benefit from MRI but not able to obtain due to vent. Has sepsis and getting ongoing treatment. Remains minimally responsive, not actively following commands. *Physical Exam Vital Signs Temperature 99.5 F 08/11/16 08:00 Pulse Rate 90 08/11/16 09:00 Respiratory Rate 19 08/11/16 10:08 Blood Pressure 107/55 08/11/16 08:00 O2 Sat by Pulse Oximetry (%) 97 08/11/16 10:08 GENERAL: Awake Frail appearing. HEENT: Normocephalic, atraumatic. +Temporal wasting. PERRL, EOMI. No conjunctival pallor. +Sclera are icteric. +Dry mucous membranes. Oropharynx is clear. NECK: Supple. Full ROM. No JVD. CARDIOVASCULAR: Tachycardic rate but regular rate and rhythm. No murmurs, rubs, or gallops. PULMONARY: +Diffuse dyspneic breath sounds that are equal bilaterally. No wheezing, crackles or rhonchi. ABDOMINAL: Firm but soft abdomen. Diffuse tenderness to palpation without rebound or guarding. Non-distended. No organomegaly. Normoactive bowel sounds. MUSCULOSKELETAL: Normal range of motion at all joints. No bony deformities or tenderness. No CVA tenderness. EXTREMITIES: No cyanosis. No clubbing. No edema. No calf tenderness. SKIN: Tenting of the skin. Jaundiced. No rashes. NEUROLOGICAL: Trached, ventilation, opens eyes and minimal movement of extremities but not cooperating with confrontation testing, withdraws to pain, not actively following commands, not tracking CBCD WBC 16.5 K/mm3 (4.0-10.0) H 08/11/16 05:20 RBC 2.70 M/mm3 (3.60-5.2) L 08/11/16 05:20 Hgb 7.8 GM/dL (10.7-15.3) L 08/11/16 05:20 Hct 23.8 % (32.4-45.2) L 08/11/16 05:20 MCV 88.2 fl (80-96) 08/11/16 05:20 MCHC 32.8 g/dl (32.0-36.0) 08/11/16 05:20 RDW 14.1 % (11.6-15.6) 08/11/16 05:20 Plt Count 625 K/MM3 (134-434) H 08/11/16 05:20 MPV 7.9 fl (7.5-11.1) 08/11/16 05:20 CMP Sodium 140 mmol/L (136-145) 08/11/16 05:20 Potassium 3.7 mmol/L (3.5-5.1) 08/11/16 05:20 Chloride 103 mmol/L (98-107) 08/11/16 05:20 Carbon Dioxide 27 mmol/L (21-32) 08/11/16 05:20 Anion Gap 10 (8-16) 08/11/16 05:20 BUN 20 mg/dL (7-18) H 08/11/16 05:20 Creatinine 0.3 mg/dL (0.55-1.02) L 08/11/16 05:20 Creat Clearance w eGFR > 60 (>60) 08/09/16 05:20 Calcium 7.9 mg/dL (8.5-10.1) L 08/11/16 05:20 Total Bilirubin 0.4 mg/dL (0.2-1.0) 08/09/16 05:20 AST 28 U/L (15-37) 08/09/16 05:20 ALT 17 U/L (12-78) 08/09/16 05:20 Alkaline Phosphatase 133 U/L (45-117) H 08/09/16 05:20 Total Protein 5.4 g/dl (6.4-8.2) L 08/09/16 05:20 Albumin 0.9 g/dl (3.4-5.0) L 08/09/16 05:20 EXAM: CT/HEAD CT WITHOUT CONTRAST IMPRESSION: Comparison study MRI of the brain February 23, 2015. Findings. Serial axial images of the brain were obtained from foramen magnum to the cranial vertex without intravenous contrast, with coronal, sagittal reconstruction images. No evidence of hydrocephalus, acute subarachnoid hemorrhage, acute intra-axial or extra-axial fluid collection consistent with subdural or epidural hematoma. No mass effect, midline shift, acute ischemic changes, herniation or edema is present. Normal yancey matter white matter differentiation. The cortical sulci, sylvian fissures, perimesencephalic cisterns are not effaced. The CSF spaces are age-appropriate. Supratentorial periventricular chronic white matter microangiopathic ischemic changes are noted. Examination of the bone windows show no fracture. Normal intracranial physiological calcifications are observed. The cranial vascular calcifications are noted. The visualized paranasal sinuses and mastoid air cells are clear. Medical Decision Making 65-year-old woman, with a significant past medical history of hypertension, hypercholesterolemia, diabetes mellitus and GI disorders who presented to the emergency department via walk-in for further evaluation of abdominal pain for the past 3-4 days with unintentional 20 lb weight loss over the past three months. She required surgical intervention as documented by Dr. Louise. Thereafter , complicated course and patient in ICU, off sedation for several days. CT head without acute changes. Patient was not awakening initially and concern was hypoperfusion and possible anoxic brain injury. Since, has awoken and is keeps eye open, some tracking previously and producing spontaneous extremity movement previously. Toxic metabolic vs hypoperfusion and anoxic brain injury. Would benefit from MRI but not able to obtain due to vent. Continue sepsis treatment Unable to be weaned off vent, status post trach Not currently on pressors, monitor blood pressures Continued medical management for multiple complications Medically complicated ? Goals of care
--- NOTE | 2016-08-11 11:50 | PN ---
Teaching Attending Note Name of Resident: Trevin Terrazas ATTENDING PHYSICIAN STATEMENT I saw and evaluated the patient. I reviewed the resident's note and discussed the case with the resident. I agree with the resident's findings and plan as documented. SUBJECTIVE: Patient seen and examined in the ICU. Remains off pressors. Lethargic and less arousable today. Intake & Output 08/08/16 08/09/16 08/10/16 08/11/16 23:59 23:59 23:59 23:59 Intake Total 2097 2580 2548 820 Output Total 1605 1500 1380 500 Balance 492 1080 1168 320 Weight 155 lb 8 oz 155 lb 4.8 oz 156 lb 8 oz 154 lb Last Vital Signs Temp Pulse Resp BP Pulse Ox 99.5 F 92 H 19 128/57 97 08/11/16 08:00 08/11/16 10:00 08/11/16 10:08 08/11/16 10:00 08/11/16 10:08 Active Medications Acetaminophen (Ofirmev Injection -) 1,000 mg IVPB Q6H PRN PRN Reason: FEVER Last Admin: 08/11/16 05:15 Dose: 1,000 mg Chlorhexidine Gluconate (Hibiclens For Decolonization -) 1 applic TP HS [facility] Last Admin: 08/10/16 22:00 Dose: 1 applic Chlorhexidine Gluconate (Peridex -) 15 ml MM BID [facility] Last Admin: 08/11/16 09:23 Dose: 15 ml Dextrose (D50w (Vial) -) 50 ml IVPUSH Q15M PRN PRN Reason: BLOOD SUGAR < 60 Last Admin: 07/24/16 06:30 Dose: 50 ml Enoxaparin Sodium (Lovenox -) 40 mg SQ BID [facility] Last Admin: 08/11/16 09:22 Dose: 40 mg Meropenem 1 gm/ Dextrose 100 mls @ 100 mls/hr IVPB Q8H-IV [facility] PRN Reason: Protocol Last Admin: 08/11/16 09:22 Dose: 100 mls/hr Fluconazole (Diflucan 200 Mg/Ns Premixed Ivpb -) 100 mls @ 100 mls/hr IVPB DAILY [facility] Last Admin: 08/10/16 09:25 Dose: 100 mls/hr Fat Emulsion Intravenous (Intralipid -) 250 mls @ 20.833 mls/hr IV DAILY@2200 [facility] Last Admin: 08/10/16 22:00 Dose: 20.833 mls/hr Famotidine/Sodium Chloride (Pepcid 20 Mg Premixed Ivpb -) 50 mls @ 100 mls/hr IVPB BID [facility] Last Admin: 08/11/16 09:22 Dose: 100 mls/hr Levofloxacin (Levaquin 750 Mg Premixed Ivpb -) 150 mls @ 100 mls/hr IVPB DAILY [facility] Last Admin: 08/11/16 09:22 Dose: 100 mls/hr Clindamycin Phosphate (Cleocin 300 Mg Premix Ivpb) 50 mls @ 100 mls/hr IVPB Q8H -IV [facility] Last Admin: 08/11/16 09:21 Dose: 100 mls/hr Sodium Phosphate 15 mm/Magnesium Sulfate 2.95 gm/Insulin Human Regular 20 units / Thiamine HCl 100 mg/ Sodium Chloride 40 meq/ Potassium Chloride 20 meq/ Multivitamins /Minerals 10 ml/ Sterile Water / Amino Acids/ Dextrose 1,200 mls @ 50 mls/hr IV DAILY@1600 [facility] Last Admin: 08/10/16 16:00 Dose: 50 mls/hr Insulin Aspart (Novolog Vial Sliding Scale -) 1 vial SQ ACHS [facility] PRN Reason: Protocol Last Admin: 08/11/16 06:02 Dose: 2 unit Gen: Trached, arousable Heart: RRR Lung: scattered rhonchi Abd: soft, dressings intact Ext: cold, hypoperfused, blackened Laboratory Results - last 24 hr 08/10/16 08/10/16 08/10/16 10:51 17:23 23:11 WBC RBC Hgb Hct MCV MCHC RDW Plt Count MPV Puncture Site ABG pH ABG pCO2 at Pt Temp ABG pO2 at Pt Temp ABG HCO3 ABG O2 Sat (Measured) ABG O2 Content ABG Base Excess Heber Test O2 Delivery Device Oxygen Flow Rate Vent Mode Mechanical Rate PEEP Pressure Support Vent Sodium Potassium Chloride Carbon Dioxide Anion Gap BUN Creatinine POC Glucometer 193.82390 154.19259 186.98391 Random Glucose Calcium Phosphorus Magnesium 08/11/16 08/11/16 08/11/16 05:09 05:20 05:20 WBC 16.5 H RBC 2.70 L Hgb 7.8 L Hct 23.8 L MCV 88.2 MCHC 32.8 RDW 14.1 Plt Count 625 H MPV 7.9 Puncture Site ABG pH ABG pCO2 at Pt Temp ABG pO2 at Pt Temp ABG HCO3 ABG O2 Sat (Measured) ABG O2 Content ABG Base Excess Heber Test O2 Delivery Device Oxygen Flow Rate Vent Mode Mechanical Rate PEEP Pressure Support Vent Sodium 140 Potassium 3.7 Chloride 103 Carbon Dioxide 27 Anion Gap 10 BUN 20 H Creatinine 0.3 L POC Glucometer 194.21933 Random Glucose 169 H Calcium 7.9 L Phosphorus 3.5 Magnesium 1.7 L 08/11/16 09:45 WBC RBC Hgb Hct MCV MCHC RDW Plt Count MPV Puncture Site Right brachial ABG pH 7.46 H ABG pCO2 at Pt Temp 39.1 ABG pO2 at Pt Temp 87.0 ABG HCO3 27.4 H ABG O2 Sat (Measured) 97.3 ABG O2 Content 11.1 L ABG Base Excess 3.7 H Heber Test Positive O2 Delivery Device Cpap Oxygen Flow Rate 40% Vent Mode Cpap Mechanical Rate Y PEEP 5.0 Pressure Support Vent Psv 10cm Sodium Potassium Chloride Carbon Dioxide Anion Gap BUN Creatinine POC Glucometer Random Glucose Calcium Phosphorus Magnesium CXR: No gross change / Trach intact ASSESSMENT AND PLAN: Perforated Duodenal Ulcer Peritonitis s/p ex-lap/omental patch repair 07/16 Acute Respiratory Failure Septic Shock Acute Kidney Injury Lactic Acidosis Leukopenia/Thrombocytopenia likely from sepsis DM Encephalopathy -> etiology to be determined - ABX per ID - monitor urine output, creatinine - taper FiO2 to keep Spo2 >90% - transfuse platelets if <20K, cryo if fibrinogen <100 - DVT/GI prophylaxis - CPAP trials as tolerated - New TPN orders written Dr Dubon critical care time spent in reviewing chart, evaluating patient and formulating plan 40 min
--- NOTE | 2016-08-11 13:51 | PN ---
Progress Note, Physician - Current Medication List Current Medications: Active Medications Acetaminophen (Ofirmev Injection -) 1,000 mg IVPB Q6H PRN PRN Reason: FEVER Last Admin: 08/11/16 05:15 Dose: 1,000 mg Chlorhexidine Gluconate (Hibiclens For Decolonization -) 1 applic TP HS [facility] Last Admin: 08/10/16 22:00 Dose: 1 applic Chlorhexidine Gluconate (Peridex -) 15 ml MM BID [facility] Last Admin: 08/11/16 09:23 Dose: 15 ml Dextrose (D50w (Vial) -) 50 ml IVPUSH Q15M PRN PRN Reason: BLOOD SUGAR < 60 Last Admin: 07/24/16 06:30 Dose: 50 ml Enoxaparin Sodium (Lovenox -) 40 mg SQ BID [facility] Last Admin: 08/11/16 09:22 Dose: 40 mg Meropenem 1 gm/ Dextrose 100 mls @ 100 mls/hr IVPB Q8H-IV [facility] PRN Reason: Protocol Last Admin: 08/11/16 09:22 Dose: 100 mls/hr Fluconazole (Diflucan 200 Mg/Ns Premixed Ivpb -) 100 mls @ 100 mls/hr IVPB DAILY [facility] Last Admin: 08/10/16 09:25 Dose: 100 mls/hr Fat Emulsion Intravenous (Intralipid -) 250 mls @ 20.833 mls/hr IV DAILY@2200 [facility] Last Admin: 08/10/16 22:00 Dose: 20.833 mls/hr Famotidine/Sodium Chloride (Pepcid 20 Mg Premixed Ivpb -) 50 mls @ 100 mls/hr IVPB BID [facility] Last Admin: 08/11/16 09:22 Dose: 100 mls/hr Levofloxacin (Levaquin 750 Mg Premixed Ivpb -) 150 mls @ 100 mls/hr IVPB DAILY [facility] Last Admin: 08/11/16 09:22 Dose: 100 mls/hr Clindamycin Phosphate (Cleocin 300 Mg Premix Ivpb) 50 mls @ 100 mls/hr IVPB Q8H -IV [facility] Last Admin: 08/11/16 09:21 Dose: 100 mls/hr Sodium Phosphate 15 mm/Magnesium Sulfate 2.95 gm/Insulin Human Regular 20 units / Thiamine HCl 100 mg/ Sodium Chloride 40 meq/ Potassium Chloride 20 meq/ Multivitamins /Minerals 10 ml/ Sterile Water / Amino Acids/ Dextrose 1,200 mls @ 50 mls/hr IV DAILY@1600 [facility] Last Admin: 08/10/16 16:00 Dose: 50 mls/hr Insulin Aspart (Novolog Vial Sliding Scale -) 1 vial SQ ACHS [facility] PRN Reason: Protocol Last Admin: 08/11/16 06:02 Dose: 2 unit - Objective Vital Signs: Vital Signs Temperature 99.5 F 08/11/16 08:00 Pulse Rate 93 H 08/11/16 12:00 Respiratory Rate 23 08/11/16 12:00 Blood Pressure 118/56 08/11/16 12:00 O2 Sat by Pulse Oximetry (%) 97 08/11/16 10:08 Labs: CBC, BMP 08/11/16 05:20 08/11/16 05:20 INR, PTT INR 1.50 (0.82-1.09) H 08/09/16 11:30 Fibrinogen > 700.0 mg/dL (238-498) H 07/31/16 05:40 Problem List - Problems (1) Abdominal pain Code(s): R10.9 - UNSPECIFIED ABDOMINAL PAIN Qualifiers: Abdominal location: periumbilical Qualified Code(s): R10.33 - Periumbilical pain (2) Perforated abdominal viscus Code(s): NRM4129 - (3) Perforated viscus Code(s): R19.8 - OTH SYMPTOMS AND SIGNS INVOLVING THE DGSTV SYS AND ABDOMEN (4) Hypertension Code(s): I10 - ESSENTIAL (PRIMARY) HYPERTENSION Qualifiers: Hypertension type: essential hypertension Qualified Code(s): I10 - Essential (primary) hypertension Assessment/Plan Surgery: patient is opening her eyes. Still draining bilious material from right flank. Maintain NG tube to suction , and TPN.
--- NOTE | 2016-08-11 14:57 | PN ---
Progress Note, Physician Chief Complaint: Has some response to verbal commands History of Present Illness: On TPN,fistula drainage less - Current Medication List Current Medications: Active Medications Acetaminophen (Ofirmev Injection -) 1,000 mg IVPB Q6H PRN PRN Reason: FEVER Last Admin: 08/11/16 05:15 Dose: 1,000 mg Chlorhexidine Gluconate (Hibiclens For Decolonization -) 1 applic TP HS [facility] Last Admin: 08/10/16 22:00 Dose: 1 applic Chlorhexidine Gluconate (Peridex -) 15 ml MM BID [facility] Last Admin: 08/11/16 09:23 Dose: 15 ml Dextrose (D50w (Vial) -) 50 ml IVPUSH Q15M PRN PRN Reason: BLOOD SUGAR < 60 Last Admin: 07/24/16 06:30 Dose: 50 ml Enoxaparin Sodium (Lovenox -) 40 mg SQ BID [facility] Last Admin: 08/11/16 09:22 Dose: 40 mg Meropenem 1 gm/ Dextrose 100 mls @ 100 mls/hr IVPB Q8H-IV [facility] PRN Reason: Protocol Last Admin: 08/11/16 09:22 Dose: 100 mls/hr Fluconazole (Diflucan 200 Mg/Ns Premixed Ivpb -) 100 mls @ 100 mls/hr IVPB DAILY [facility] Last Admin: 08/10/16 09:25 Dose: 100 mls/hr Fat Emulsion Intravenous (Intralipid -) 250 mls @ 20.833 mls/hr IV DAILY@2200 [facility] Last Admin: 08/10/16 22:00 Dose: 20.833 mls/hr Famotidine/Sodium Chloride (Pepcid 20 Mg Premixed Ivpb -) 50 mls @ 100 mls/hr IVPB BID [facility] Last Admin: 08/11/16 09:22 Dose: 100 mls/hr Levofloxacin (Levaquin 750 Mg Premixed Ivpb -) 150 mls @ 100 mls/hr IVPB DAILY [facility] Last Admin: 08/11/16 09:22 Dose: 100 mls/hr Clindamycin Phosphate (Cleocin 300 Mg Premix Ivpb) 50 mls @ 100 mls/hr IVPB Q8H -IV [facility] Last Admin: 08/11/16 09:21 Dose: 100 mls/hr Sodium Phosphate 15 mm/Magnesium Sulfate 2.95 gm/Insulin Human Regular 20 units / Thiamine HCl 100 mg/ Sodium Chloride 40 meq/ Potassium Chloride 20 meq/ Multivitamins /Minerals 10 ml/ Sterile Water / Amino Acids/ Dextrose 1,200 mls @ 50 mls/hr IV DAILY@1600 [facility] Last Admin: 08/10/16 16:00 Dose: 50 mls/hr Insulin Aspart (Novolog Vial Sliding Scale -) 1 vial SQ ACHS [facility] PRN Reason: Protocol Last Admin: 08/11/16 06:02 Dose: 2 unit - Objective Vital Signs: Vital Signs Temperature 99.5 F 08/11/16 08:00 Pulse Rate 93 H 08/11/16 12:00 Respiratory Rate 20 08/11/16 14:05 Blood Pressure 118/56 08/11/16 12:00 O2 Sat by Pulse Oximetry (%) 97 08/11/16 10:08 Constitutional: Yes: Moderate Distress Eyes: Yes: WNL HENT: Yes: WNL Neck: Yes: WNL Cardiovascular: Yes: WNL Respiratory: Yes: Mechanically Ventilated Gastrointestinal: Yes: Distention ...Rectal Exam: Yes: Deferred Genitourinary: Yes: Bacon Present Neurological: Yes: Lethargy Labs: CBC, BMP 08/11/16 05:20 08/11/16 05:20 INR, PTT INR 1.50 (0.82-1.09) H 08/09/16 11:30 Fibrinogen > 700.0 mg/dL (238-498) H 07/31/16 05:40 Assessment/Plan Orders as per ICU atteding
[2016-08-11] MEDS: FLUCONAZOLE 200 MG/NS 100 ML IVPB SCH (15:26)
[2016-08-11] MEDS: [UNRECOGNIZED DRUG - OTHER] IV SCH (15:27)
[2016-08-11] MEDS: MAGNESIUM SULFATE IV SCH (15:27)
[2016-08-11] MEDS: INSULIN REGULAR IV SCH (15:27)
[2016-08-11] MEDS: SODIUM PHOSPHATE IV SCH (15:27)
--- NOTE | 2016-08-11 19:25 | PN ---
Physical Exam: SUBJECTIVE: Patient seen and examined. opens eyes to verbal and tactile stimuli, does not stay awake, does not follow commands. intermittently spontanously moves left arm across body, more movement in left than right. contraction seen in calves, no movement in feet or at ankles. OBJECTIVE: Vital Signs Period Temp Pulse Resp BP Sys/Major Pulse Ox Last 24 Hr 99.5 F-100.9 F 80-118 13-28 104-153/54-79 97-100 HEAD: Bitemporal wasting. facial erythema and skin sloughing EYES: sluggish reaction to light b/l with constricted pupils, sclera anicteric. ENT: NGT in place to wall suction,s/p trachostomy NECK: Trachea midline with trach, scant mucus-like watery discharge on anterior portion of trach, otherwise to erythema. LIJ site CDI. LUNGS: diffuse rhonchi, anterior bilaterally, no wheezes, quiet at bases. HEART: regular rate/rhythm, S1, S2 without murmur, rub or gallop. ABDOMEN: colectomy placed over sump pump tube insertion site, soft abdomen, breakdown of skin at incision site at umbilicus with scant pus-like discharge, open ulcers throughout abdomen with scant serous discharge, covered in xeroform EXTREMITIES: 2+ left radial pulse, weak right radial pulse, no pulse in DP b/l, acrocyanosis extending from fingernails to mid-forearm, left hand: gangrene at fingertips upto to pIP joint in 2nd-5th digits, surrounding erythema on palm and dorsum of hand with mottling. contracted fingers. right hand: gangrene at fingertips upto pIP joint in 1st - 5th digits, contracted fingers. no edema in legs. acrocyanosis in toes, marked in 5th digits b/l with skin mottling upto ankles. no edema. SKIN: multiple open ulcers throughout body, no edema NEUROLOGICAL: opens eyes to verbal stimuli. grimaces when feet, hands, and abdomen are touched, lethargic, easily arousable but does not stay awake. is not making eye contact/tracking. Laboratory Results - last 24 hr 08/10/16 08/10/16 08/10/16 10:51 17:23 23:11 WBC RBC Hgb Hct MCV MCHC RDW Plt Count MPV Puncture Site ABG pH ABG pCO2 at Pt Temp ABG pO2 at Pt Temp ABG HCO3 ABG O2 Sat (Measured) ABG O2 Content ABG Base Excess Heber Test O2 Delivery Device Oxygen Flow Rate Vent Mode Mechanical Rate PEEP Pressure Support Vent Sodium Potassium Chloride Carbon Dioxide Anion Gap BUN Creatinine POC Glucometer 193.18819 154.53208 186.89708 Random Glucose Calcium Phosphorus Magnesium 08/11/16 08/11/16 08/11/16 05:09 05:20 05:20 WBC 16.5 H RBC 2.70 L Hgb 7.8 L Hct 23.8 L MCV 88.2 MCHC 32.8 RDW 14.1 Plt Count 625 H MPV 7.9 Puncture Site ABG pH ABG pCO2 at Pt Temp ABG pO2 at Pt Temp ABG HCO3 ABG O2 Sat (Measured) ABG O2 Content ABG Base Excess Heber Test O2 Delivery Device Oxygen Flow Rate Vent Mode Mechanical Rate PEEP Pressure Support Vent Sodium 140 Potassium 3.7 Chloride 103 Carbon Dioxide 27 Anion Gap 10 BUN 20 H Creatinine 0.3 L POC Glucometer 194.67081 Random Glucose 169 H Calcium 7.9 L Phosphorus 3.5 Magnesium 1.7 L 08/11/16 08/11/16 08/11/16 09:45 11:57 16:24 WBC RBC Hgb Hct MCV MCHC RDW Plt Count MPV Puncture Site Right brachial ABG pH 7.46 H ABG pCO2 at Pt Temp 39.1 ABG pO2 at Pt Temp 87.0 ABG HCO3 27.4 H ABG O2 Sat (Measured) 97.3 ABG O2 Content 11.1 L ABG Base Excess 3.7 H Heber Test Positive O2 Delivery Device Cpap Oxygen Flow Rate 40% Vent Mode Cpap Mechanical Rate Y PEEP 5.0 Pressure Support Vent Psv 10cm Sodium Potassium Chloride Carbon Dioxide Anion Gap BUN Creatinine POC Glucometer 172.05642 97.05863 Random Glucose Calcium Phosphorus Magnesium Active Medications Generic Name Dose Route Start Last Admin Trade Name Freq PRN Reason Stop Dose Admin Acetaminophen 1,000 mg 07/19/16 15:43 08/11/16 05:15 Ofirmev Injection - IVPB 1,000 mg Q6H PRN Administration FEVER Chlorhexidine Gluconate 1 applic 07/16/16 22:00 08/10/16 22:00 Hibiclens For Decolonization - TP 1 applic HS AVERY Administration Chlorhexidine Gluconate 15 ml 07/21/16 10:00 08/11/16 09:23 Peridex - MM 15 ml BID AVERY Administration Dextrose 50 ml 07/24/16 07:18 07/24/16 06:30 D50w (Vial) - IVPUSH 50 ml Q15M PRN Administration BLOOD SUGAR < 60 Enoxaparin Sodium 40 mg 08/04/16 10:15 08/11/16 09:22 Lovenox - SQ 40 mg BID AVERY Administration Meropenem 1 gm/ Dextrose 100 mls @ 100 mls/hr 07/19/16 18:00 08/11/16 17:41 IVPB 100 mls/hr Q8H-IV AVERY Administration Protocol Fluconazole 100 mls @ 100 mls/hr 07/30/16 10:00 08/11/16 15:26 Diflucan 200 Mg/Ns Premixed Ivpb - IVPB 100 mls/hr DAILY AVERY Administration Fat Emulsion Intravenous 250 mls @ 20.833 mls/hr 07/31/16 22:00 08/10/16 22:00 Intralipid - IV 20.833 mls/hr DAILY@2200 AVERY Administration Famotidine/Sodium Chloride 50 mls @ 100 mls/hr 07/31/16 22:00 08/11/16 09:22 Pepcid 20 Mg Premixed Ivpb - IVPB 100 mls/hr BID AVERY Administration Levofloxacin 150 mls @ 100 mls/hr 08/04/16 17:00 08/11/16 09:22 Levaquin 750 Mg Premixed Ivpb - IVPB 100 mls/hr DAILY AVERY Administration Clindamycin Phosphate 50 mls @ 100 mls/hr 08/08/16 13:45 08/11/16 17:30 Cleocin 300 Mg Premix Ivpb IVPB 100 mls/hr Q8H-IV AVERY Administration Sodium Phosphate 15 mm/ 1,200 mls @ 50 mls/hr 08/09/16 16:00 08/11/16 15:27 Magnesium Sulfate 2.95 gm/ IV 50 mls/hr Insulin Human Regular 20 units DAILY@1600 AVERY Administration / Thiamine HCl 100 mg/ Sodium Chloride 40 meq/ Potassium Chloride 20 meq/ Multivitamins /Minerals 10 ml/ Sterile Water / Amino Acids/ Dextrose Insulin Aspart 1 vial 07/17/16 16:30 08/11/16 17:42 Novolog Vial Sliding Scale - SQ Not Given ACHS [facility] Protocol ASSESSMENT/PLAN: 65 yr old woman with HTN, dementia, NIDDM II admitted to ICU with septic shock secondary to perforated duodenal ulcer and peritonitis, 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 Cardivascular Normotensive - maintain goal MAP>65 - monitor urine output - left IJ central line placed 08/08 Pulmonary trach placed 08/08 fio2 40%, sat 100%, RR 14 titrate to maintain spo2 >90% - tolerated CPAP for approx 20hrs 08/10, and 5 hours 08/11, continue trials, however do not anticipate pt to tolerate trach collar given acute abdominal process and increased pulmonary congestion/prolonged intubation/septic shock - referral to LTAC initiated Gastrointestinal; s/p repair perforated duodenal ulcer 07/16, - Meropenem IV 1gm q8hr - day - Diflucan 200mg IVPB daily, discussed with Dr. Burgess, continue for now - Day - Rocephin 750gm daily IVPB - Day 8 - Cleocin restarted - 300mg IVPB q8hr - 19 days - pepcid ivpb 20g daily - enterocutaenous fistula with colostomy bag -- stop tube feeds, bowel rest and NG tube to wall suction, monitor output - placed on TPN (day 12) Renal - Bacon placed in ED pre-op 07/16 - consult: Dr. Tubbs Infectious Disease - consulted - meropenem + diflucan + levofloxacin + cleocin - tylenol IVPB 1gm q6hr for fevers + ice packs at axilla, neck, groin. avoid cooling blanket on extremities and on feet. -- fevers possible from multiple sources including gangrene, skin ulcers and fistula - wound cx sent from periumbilicus Endocrine NIDDM II - D5 Iv push 1 amp when BGM <60 - BGM q6hrs w/ goal 140-180, NISS. Hematologic - cephalic vein SVT and right IJ clot, likley iatrogenic from central line placement - txment with lovenox BID 40sq daily - thrombocytopenia likely due to sepsis, r/o DIC - daily fibrinogen levels/coags , if fibrinogen level <100 consider cryoppt - goal to maintain plts>20,000 - trend H/H, transfuse of hgb <7.0, - leucocytosis trending up, likely from multiple sources - consult Dr. Church Neurologic AMS secondary to prolonged sedative effect or hypoperfusion causing anoxic brain injury Dr. Allen consulted for further neurological evaluation; rec MRI, however not transportable on vent, continue medical management. lethargic today. Dementia Musck - will require amputation of gangrenous extremities once medically stable and demarcation occurs. Diet: TPN(fluid volume increased today) DVT- lovenox BID 40 sq Visit type - Emergency Visit Emergency Visit: No - New Patient This patient is new to me today: No - Critical Care Critical Care patient: Yes Total Critical Care Time (in minutes): 37 Critical Care Statement: The care of this patient involved high complexity decision making to prevent further life threatening deterioration of the patient 's condition and/or to evalute & treat vital organ system(s) failure or risk of failure.
[2016-08-11] MEDS: CHLORHEXIDINE GLUCONATE 4% CLEANSER FOR DECOLONIZATION TP SCH (21:05)
[2016-08-11] MEDS: FAT EMULSIONS 250 ML IV SCH (21:07)
[2016-08-12] MEDS: MEROPENEM 1 GM in DEXTROSE 5%-WATER - 100 ML IVPB SCH ×3 (02:30→17:11)
[2016-08-12] MEDS: CLINDAMYCIN 300 MG PREMIX IVPB 50 ML IVPB SCH ×3 (03:00→17:11)
[2016-08-12] MEDS: INSULIN SLIDING SCALE (NOVOLOG) 1 VIAL SQ SCH ×4 (06:21→22:16)
--- NOTE | 2016-08-12 07:51 | PN ---
Physical Exam: SUBJECTIVE: Patient seen and examined opens eyes to verbal and tactile stimuli, opened mouth on command and tried to stick out tongue to command. intermittent movements at b/l hands, and arms. minimal movement in feet and legs. OBJECTIVE: Vital Signs Period Temp Pulse Resp BP Sys/Major Pulse Ox Last 24 Hr 99.5 F-100.8 F 87-103 12-23 104-130/54-69 97-100 HEAD: Bitemporal wasting. facial erythema and skin sloughing EYES:PERRLA, sclera anicteric. ENT: NGT in place to wall suction, s/p trachostomy NECK: Trachea midline with trach, scant mucus-like watery discharge on anterior portion of trach, otherwise no erythema. LIJ site CDI. LUNGS: intermittent rhonchi, anterior bilaterally, no wheezes, quiet at bases. HEART: regular rate/rhythm, S1, S2 without murmur, rub or gallop. ABDOMEN: colectomy placed over sump pump tube insertion site, soft abdomen, breakdown of skin at incision site at umbilicus with scant pus-like discharge, open ulcers throughout abdomen with scant serous discharge, covered in xeroform EXTREMITIES: 2+ left radial pulse, 1+ right radial pulse, no pulse in DP b/l, acrocyanosis extending from fingernails to mid-forearm, left hand: gangrene at fingertips upto to pIP joint in 2nd-5th digits, surrounding erythema on palm and dorsum of hand with mottling. contracted fingers. right hand: gangrene at fingertips upto pIP joint in 1st - 5th digits, contracted fingers. no edema in legs. acrocyanosis in toes, marked in 5th digits b/l with skin mottling upto ankles. no edema. SKIN: multiple open ulcers throughout body, no edema NEUROLOGICAL: opens eyes to verbal stimuli. grimaces when feet, hands, and abdomen are touched, lethargic, easily arousable but does not stay awake. is not making eye contact/tracking. Laboratory Results - last 24 hr 08/11/16 08/11/16 08/11/16 09:45 11:57 16:24 Puncture Site Right brachial ABG pH 7.46 H ABG pCO2 at Pt Temp 39.1 ABG pO2 at Pt Temp 87.0 ABG HCO3 27.4 H ABG O2 Sat (Measured) 97.3 ABG O2 Content 11.1 L ABG Base Excess 3.7 H Heber Test Positive O2 Delivery Device Cpap Oxygen Flow Rate 40% Vent Mode Cpap Mechanical Rate Y PEEP 5.0 Pressure Support Vent Psv 10cm POC Glucometer 172.70385 97.52580 08/11/16 08/12/16 21:20 06:16 Puncture Site ABG pH ABG pCO2 at Pt Temp ABG pO2 at Pt Temp ABG HCO3 ABG O2 Sat (Measured) ABG O2 Content ABG Base Excess Heber Test O2 Delivery Device Oxygen Flow Rate Vent Mode Mechanical Rate PEEP Pressure Support Vent POC Glucometer 186.75254 333.67890 Active Medications Generic Name Dose Route Start Last Admin Trade Name Freq PRN Reason Stop Dose Admin Acetaminophen 1,000 mg 07/19/16 15:43 08/11/16 05:15 Ofirmev Injection - IVPB 1,000 mg Q6H PRN Administration FEVER Chlorhexidine Gluconate 1 applic 07/16/16 22:00 08/11/16 21:05 Hibiclens For Decolonization - TP 1 applic HS AVERY Administration Chlorhexidine Gluconate 15 ml 07/21/16 10:00 08/11/16 21:07 Peridex - MM 15 ml BID AVERY Administration Dextrose 50 ml 07/24/16 07:18 07/24/16 06:30 D50w (Vial) - IVPUSH 50 ml Q15M PRN Administration BLOOD SUGAR < 60 Enoxaparin Sodium 40 mg 08/04/16 10:15 08/11/16 21:05 Lovenox - SQ 40 mg BID AVERY Administration Meropenem 1 gm/ Dextrose 100 mls @ 100 mls/hr 07/19/16 18:00 08/12/16 02:30 IVPB 100 mls/hr Q8H-IV AVERY Administration Protocol Fluconazole 100 mls @ 100 mls/hr 07/30/16 10:00 08/11/16 15:26 Diflucan 200 Mg/Ns Premixed Ivpb - IVPB 100 mls/hr DAILY AVERY Administration Fat Emulsion Intravenous 250 mls @ 20.833 mls/hr 07/31/16 22:00 08/11/16 21:07 Intralipid - IV 20.833 mls/hr DAILY@2200 AVERY Administration Famotidine/Sodium Chloride 50 mls @ 100 mls/hr 07/31/16 22:00 08/11/16 21:06 Pepcid 20 Mg Premixed Ivpb - IVPB 100 mls/hr BID AVERY Administration Levofloxacin 150 mls @ 100 mls/hr 08/04/16 17:00 08/11/16 09:22 Levaquin 750 Mg Premixed Ivpb - IVPB 100 mls/hr DAILY AVERY Administration Clindamycin Phosphate 50 mls @ 100 mls/hr 08/08/16 13:45 08/12/16 03:00 Cleocin 300 Mg Premix Ivpb IVPB 100 mls/hr Q8H-IV AVERY Administration Sodium Phosphate 15 mm/ 1,200 mls @ 50 mls/hr 08/09/16 16:00 08/11/16 15:27 Magnesium Sulfate 2.95 gm/ IV 50 mls/hr Insulin Human Regular 20 units DAILY@1600 AVERY Administration / Thiamine HCl 100 mg/ Sodium Chloride 40 meq/ Potassium Chloride 20 meq/ Multivitamins /Minerals 10 ml/ Sterile Water / Amino Acids/ Dextrose Insulin Aspart 1 vial 07/17/16 16:30 08/12/16 06:21 Novolog Vial Sliding Scale - SQ 8 unit ACHS AVERY Administration Protocol ASSESSMENT/PLAN: 65 yr old woman with HTN, dementia, NIDDM II admitted to ICU with septic shock secondary to perforated duodenal ulcer and peritonitis, 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 to discuss GOC Cardivascular Normotensive - maintain goal MAP>65 - monitor urine output - left IJ central line placed 6/2 Pulmonary trach placed 6/2 fio2 40%, sat 100%, RR 14 titrate to maintain spo2 >90% - tolerated CPAP for approx 20hrs /4, and 5 hours 6/5, 3 hours 6/6, continue trials, however do not anticipate pt to tolerate trach collar given acute abdominal process and increased pulmonary congestion/prolonged intubation/ septic shock - referral to LTAC initiated Gastrointestinal; s/p repair perforated duodenal ulcer 07/16, - Meropenem IV 1gm q8hr - day 24 - Diflucan 200mg IVPB daily, discussed with Dr. Burgess, continue for now - Day 27 - Rocephin 750gm daily IVPB - Day 9 - Cleocin restarted - 300mg IVPB q8hr - 20 days - pepcid ivpb 20g daily - enterocutaenous fistula with colostomy bag -- stop tube feeds, bowel rest and NG tube to wall suction, monitor output - once output stops can restart enteral feeds - placed on TPN (day 12) Renal - Bacon placed in ED pre-op 07/16 - consult: Dr. Tubbs Infectious Disease - consulted - meropenem + diflucan + levofloxacin + cleocin - tylenol IVPB 1gm q6hr for fevers + ice packs at axilla, neck, groin. avoid cooling blanket on extremities and on feet. -- fevers possible from multiple sources including gangrene, skin ulcers and fistula - wound cx sent from periumbilicus Endocrine NIDDM II - BGM q6hrs w/ goal 140-180, NISS. Hematologic - cephalic vein SVT and right IJ clot, likley iatrogenic from central line placement - txment with lovenox BID 40sq daily - thrombocytosis likely reactive due to sepsis - trend H/H, transfuse of hgb <7.0, - leucocytosis trending up, likely from multiple sources - consult Dr. Church Neurologic cognition improved today consult: Dr. Allen consulted for further neurological evaluation; rec MRI, however not transportable on vent, continue medical management. lethargic today. Dementia Musck - will require amputation of gangrenous extremities once medically stable and demarcation occurs. Diet: TPN(fluid volume increased today) DVT- lovenox BID 40 sq Visit type - Emergency Visit Emergency Visit: No - New Patient This patient is new to me today: No - Critical Care Critical Care patient: Yes Total Critical Care Time (in minutes): 37 Critical Care Statement: The care of this patient involved high complexity decision making to prevent further life threatening deterioration of the patient 's condition and/or to evalute & treat vital organ system(s) failure or risk of failure.
[2016-08-12] MEDS: FLUCONAZOLE 200 MG/NS 100 ML IVPB SCH (10:06)
[2016-08-12] MEDS: FAMOTIDINE 20 MG/50 ML IVPB 50 ML IVPB SCH ×2 (10:06→22:03)
[2016-08-12] MEDS: LEVOFLOXACIN 750 MG IVPB 150 ML IVPB SCH (10:09)
[2016-08-12] MEDS: ENOXAPARIN NA (PORCINE) 40 MG/0.4 ML DISP.SYRIN SQ SCH ×2 (10:10→22:04)
[2016-08-12] MEDS: CHLORHEXIDINE GLUCONATE 0.12% 15ML CUP MM SCH ×2 (10:11→22:05)
--- NOTE | 2016-08-12 11:41 | PN ---
Teaching Attending Note Name of Resident: Trevin Terrazas ATTENDING PHYSICIAN STATEMENT I saw and evaluated the patient. I reviewed the resident's note and discussed the case with the resident. I agree with the resident's findings and plan as documented. SUBJECTIVE: Patient seen and examined in the ICU. Remains off pressors. Awakens to tactile stimuli. AC mode of vent, 40% FiO2. Intake & Output 08/09/16 08/10/16 08/11/16 08/12/16 23:59 23:59 23:59 23:59 Intake Total 2580 2548 2080 1152 Output Total 1500 1380 1350 500 Balance 1080 1168 730 652 Weight 155 lb 4.8 oz 156 lb 8 oz 154 lb 158 lb Last Vital Signs Temp Pulse Resp BP Pulse Ox 101.1 F H 105 H 25 H 124/60 97 08/12/16 10:00 08/12/16 10:00 08/12/16 11:26 08/12/16 10:00 08/12/16 09:56 Active Medications Acetaminophen (Ofirmev Injection -) 1,000 mg IVPB Q6H PRN PRN Reason: FEVER Last Admin: 08/11/16 05:15 Dose: 1,000 mg Chlorhexidine Gluconate (Hibiclens For Decolonization -) 1 applic TP HS AVERY Last Admin: 08/11/16 21:05 Dose: 1 applic Chlorhexidine Gluconate (Peridex -) 15 ml MM BID AVERY Last Admin: 08/12/16 10:11 Dose: 15 ml Dextrose (D50w (Vial) -) 50 ml IVPUSH Q15M PRN PRN Reason: BLOOD SUGAR < 60 Last Admin: 07/24/16 06:30 Dose: 50 ml Enoxaparin Sodium (Lovenox -) 40 mg SQ BID AVERY Last Admin: 08/12/16 10:10 Dose: 40 mg Meropenem 1 gm/ Dextrose 100 mls @ 100 mls/hr IVPB Q8H-IV AVERY PRN Reason: Protocol Last Admin: 08/12/16 10:10 Dose: 100 mls/hr Fluconazole (Diflucan 200 Mg/Ns Premixed Ivpb -) 100 mls @ 100 mls/hr IVPB DAILY AVERY Last Admin: 08/12/16 10:06 Dose: 100 mls/hr Fat Emulsion Intravenous (Intralipid -) 250 mls @ 20.833 mls/hr IV DAILY@2200 [facility] Last Admin: 08/11/16 21:07 Dose: 20.833 mls/hr Famotidine/Sodium Chloride (Pepcid 20 Mg Premixed Ivpb -) 50 mls @ 100 mls/hr IVPB BID [facility] Last Admin: 08/12/16 10:06 Dose: 100 mls/hr Levofloxacin (Levaquin 750 Mg Premixed Ivpb -) 150 mls @ 100 mls/hr IVPB DAILY [facility] Last Admin: 08/12/16 10:09 Dose: 100 mls/hr Clindamycin Phosphate (Cleocin 300 Mg Premix Ivpb) 50 mls @ 100 mls/hr IVPB Q8H -IV [facility] Last Admin: 08/12/16 10:08 Dose: 100 mls/hr Sodium Phosphate 15 mm/Magnesium Sulfate 2.95 gm/Insulin Human Regular 20 units / Thiamine HCl 100 mg/ Sodium Chloride 40 meq/ Potassium Chloride 20 meq/ Multivitamins /Minerals 10 ml/ Sterile Water / Amino Acids/ Dextrose 1,200 mls @ 50 mls/hr IV DAILY@1600 [facility] Last Admin: 08/11/16 15:27 Dose: 50 mls/hr Insulin Aspart (Novolog Vial Sliding Scale -) 1 vial SQ ACHS [facility] PRN Reason: Protocol Last Admin: 08/12/16 06:21 Dose: 8 unit Gen: Trached, arousable Heart: RRR Lung: scattered rhonchi Abd: soft, dressings intact Ext: cold, hypoperfused, blackened Laboratory Results - last 24 hr 08/11/16 08/11/16 08/11/16 11:57 16:24 21:20 POC Glucometer 172.40717 97.56667 186.84943 08/12/16 06:16 POC Glucometer 333.35634 ASSESSMENT AND PLAN: Perforated Duodenal Ulcer Peritonitis s/p ex-lap/omental patch repair 07/16 Acute Respiratory Failure Septic Shock Acute Kidney Injury Lactic Acidosis Leukopenia/Thrombocytopenia likely from sepsis DM Encephalopathy -> etiology to be determined - ABX per ID - monitor urine output, creatinine - taper FiO2 to keep Spo2 >90% - transfuse platelets if <20K, cryo if fibrinogen <100 - DVT/GI prophylaxis - CPAP trials as tolerated - New TPN orders to be written Dr Dubon critical care time spent in reviewing chart, evaluating patient and formulating plan 35 min
[2016-08-12] MEDS ORDERED: FENTANYL PATCH WASTE TD PRN (11:59)
[2016-08-12] MEDS ORDERED: fentaNYL 25mcg/hr PATCH.TD72 TD SCH (12:00)
[2016-08-12 12:21] LABS: BASOPHIL 0.9 % (0-2.0); EOSINOPHIL 1.4 % (0-4.5); MCH 28.8 pg (25.7-33.7); MEAN CELL VOLUME 87.3 fl (80-96); NEUTROPHILS 81.1 % (42.8-82.8); PLATELET COUNT 553 K/MM3 (134-434); RDW 14.1 % (11.6-15.6); WHITE BLOOD COUNT 16.3 K/mm3 (4.0-10.0)
[2016-08-12 12:50] LABS: CALCIUM 8.2 mg/dL (8.5-10.1); COCKROFT - GAULT 308.8135; CREATININE 0.2 mg/dL (0.55-1.02); MAGNESIUM 1.6 mg/dL (1.8-2.4); PHOSPHOROUS 3.2 mg/dL (2.5-4.9)
--- NOTE | 2016-08-12 14:05 | SURG ---
Surgery Care Technician Note Care Technician: Fidelia Ibarra PA-C Date of Service: 08/08/16 Diagnosis: Respiratory failure , sepsis. Ventilator dependent Procedure: Tracheostomy I was present for the entirety of the operative procedure. For further detail, please refer to operative report. Visit type - Case Type Case Type: ED Admission - Emergency Emergency Visit: Yes ED Registration Date: 07/16/16 Care time: The patient presented to the Emergency Department on the above date and was hospitalized for further evaluation of their emergent condition. - New patient This patient is new to me today: No - Critical Care Critical Care patient: No
--- NOTE | 2016-08-12 15:32 | PN ---
Progress Note (short form) - Note Progress Note: Neurology History of Present Illness The patient is a 65-year-old woman, with a significant past medical history of hypertension, hypercholesterolemia, diabetes mellitus and GI disorders who presented to the emergency department via walk-in for further evaluation of abdominal pain for the past 3-4 days with unintentional 20 lb weight loss over the past three months. She required surgical intervention as documented by Dr. Louise. Thereafter, complicated course and patient in ICU, off sedation for several days. CT head without acute changes. Patient was not awakening initially and concern was hypoperfusion and possible anoxic brain injury. 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 Since, has awoken and is keeps eye open, occasional tracking and previously occasional spontaneous extremity movement but minimal now. Does have notable gangrene of fingers and toes. protecting airway and remains intubated and on vent, status post trach as she was not able to tolerate weaning. Toxic metabolic vs hypoperfusion and anoxic brain injury. Would benefit from MRI but not able to obtain due to vent. Has sepsis and getting ongoing treatment. Patient was able to follow me across the room with her eyes, previously opening mouth and sticking out tongue to command with resident. Remains awake, not performing complex commands. *Physical Exam Last Vital Signs Temp Pulse Resp BP Pulse Ox 100.8 F H 98 H 20 126/69 97 08/12/16 14:00 08/12/16 14:00 08/12/16 14:32 08/12/16 14:00 08/12/16 09:56 GENERAL: Awake Frail appearing. HEENT: Normocephalic, atraumatic. +Temporal wasting. PERRL, EOMI. No conjunctival pallor. +Sclera are icteric. +Dry mucous membranes. Oropharynx is clear. NECK: Supple. Full ROM. No JVD. CARDIOVASCULAR: Tachycardic rate but regular rate and rhythm. No murmurs, rubs, or gallops. PULMONARY: +Diffuse dyspneic breath sounds that are equal bilaterally. No wheezing, crackles or rhonchi. ABDOMINAL: Firm but soft abdomen. Diffuse tenderness to palpation without rebound or guarding. Non-distended. No organomegaly. Normoactive bowel sounds. MUSCULOSKELETAL: Normal range of motion at all joints. No bony deformities or tenderness. No CVA tenderness. EXTREMITIES: No cyanosis. No clubbing. No edema. No calf tenderness. SKIN: Tenting of the skin. Jaundiced. No rashes. NEUROLOGICAL: Trached, ventilation, opens eyes and minimal movement of extremities but not cooperating with confrontation testing, withdraws to pain, not following complex commands, not tracking CBCD WBC 16.3 K/mm3 (4.0-10.0) H 08/12/16 12:00 RBC 2.54 M/mm3 (3.60-5.2) L 08/12/16 12:00 Hgb 7.3 GM/dL (10.7-15.3) L 08/12/16 12:00 Hct 22.2 % (32.4-45.2) L 08/12/16 12:00 MCV 87.3 fl (80-96) 08/12/16 12:00 MCHC 33.0 g/dl (32.0-36.0) 08/12/16 12:00 RDW 14.1 % (11.6-15.6) 08/12/16 12:00 Plt Count 553 K/MM3 (134-434) H 08/12/16 12:00 MPV 7.0 fl (7.5-11.1) L D 08/12/16 12:00 CMP Sodium 140 mmol/L (136-145) 08/12/16 12:00 Potassium 4.0 mmol/L (3.5-5.1) 08/12/16 12:00 Chloride 103 mmol/L (98-107) 08/12/16 12:00 Carbon Dioxide 28 mmol/L (21-32) 08/12/16 12:00 Anion Gap 9 (8-16) 08/12/16 12:00 BUN 17 mg/dL (7-18) 08/12/16 12:00 Creatinine 0.2 mg/dL (0.55-1.02) L D 08/12/16 12:00 Creat Clearance w eGFR > 60 (>60) 08/09/16 05:20 Calcium 8.2 mg/dL (8.5-10.1) L 08/12/16 12:00 Total Bilirubin 0.4 mg/dL (0.2-1.0) 08/09/16 05:20 AST 28 U/L (15-37) 08/09/16 05:20 ALT 17 U/L (12-78) 08/09/16 05:20 Alkaline Phosphatase 133 U/L (45-117) H 08/09/16 05:20 Total Protein 5.4 g/dl (6.4-8.2) L 08/09/16 05:20 Albumin 0.9 g/dl (3.4-5.0) L 08/09/16 05:20 EXAM: CT/HEAD CT WITHOUT CONTRAST IMPRESSION: Comparison study MRI of the brain February 23, 2015. Findings. Serial axial images of the brain were obtained from foramen magnum to the cranial vertex without intravenous contrast, with coronal, sagittal reconstruction images. No evidence of hydrocephalus, acute subarachnoid hemorrhage, acute intra-axial or extra-axial fluid collection consistent with subdural or epidural hematoma. No mass effect, midline shift, acute ischemic changes, herniation or edema is present. Normal yancey matter white matter differentiation. The cortical sulci, sylvian fissures, perimesencephalic cisterns are not effaced. The CSF spaces are age-appropriate. Supratentorial periventricular chronic white matter microangiopathic ischemic changes are noted. Examination of the bone windows show no fracture. Normal intracranial physiological calcifications are observed. The cranial vascular calcifications are noted. The visualized paranasal sinuses and mastoid air cells are clear. Medical Decision Making 65-year-old woman, with a significant past medical history of hypertension, hypercholesterolemia, diabetes mellitus and GI disorders who presented to the emergency department via walk-in for further evaluation of abdominal pain for the past 3-4 days with unintentional 20 lb weight loss over the past three months. She required surgical intervention as documented by Dr. Louise. Thereafter , complicated course and patient in ICU, off sedation for several days. CT head without acute changes. Patient was not awakening initially and concern was hypoperfusion and possible anoxic brain injury. Since, has awoken and is keeps eye open, some tracking previously and producing spontaneous extremity movement previously. Toxic metabolic vs hypoperfusion and anoxic brain injury. Would benefit from MRI but not able to obtain due to vent. Continue sepsis treatment Unable to be weaned off vent, status post trach Not currently on pressors, monitor blood pressures Continued medical management for multiple complications Medically complicated Mental status appears to be stable, monitor for increased ability to follow commands and perform higher order tasks
--- NOTE | 2016-08-12 15:34 | PN ---
Progress Note, Physician Chief Complaint: On respirator History of Present Illness: weaning attempted - Current Medication List Current Medications: Active Medications Acetaminophen (Ofirmev Injection -) 1,000 mg IVPB Q6H PRN PRN Reason: FEVER Last Admin: 08/11/16 05:15 Dose: 1,000 mg Chlorhexidine Gluconate (Hibiclens For Decolonization -) 1 applic TP HS [facility] Last Admin: 08/11/16 21:05 Dose: 1 applic Chlorhexidine Gluconate (Peridex -) 15 ml MM BID [facility] Last Admin: 08/12/16 10:11 Dose: 15 ml Dextrose (D50w (Vial) -) 50 ml IVPUSH Q15M PRN PRN Reason: BLOOD SUGAR < 60 Last Admin: 07/24/16 06:30 Dose: 50 ml Enoxaparin Sodium (Lovenox -) 40 mg SQ BID [facility] Last Admin: 08/12/16 10:10 Dose: 40 mg Fentanyl (Duragesic 25mcg Patch -) 1 patch TD Q72H [facility] Stop: 08/19/16 11:59 Last Admin: 08/12/16 13:03 Dose: 1 patch Meropenem 1 gm/ Dextrose 100 mls @ 100 mls/hr IVPB Q8H-IV [facility] PRN Reason: Protocol Last Admin: 08/12/16 10:10 Dose: 100 mls/hr Fluconazole (Diflucan 200 Mg/Ns Premixed Ivpb -) 100 mls @ 100 mls/hr IVPB DAILY [facility] Last Admin: 08/12/16 10:06 Dose: 100 mls/hr Fat Emulsion Intravenous (Intralipid -) 250 mls @ 20.833 mls/hr IV DAILY@2200 [facility] Last Admin: 08/11/16 21:07 Dose: 20.833 mls/hr Famotidine/Sodium Chloride (Pepcid 20 Mg Premixed Ivpb -) 50 mls @ 100 mls/hr IVPB BID [facility] Last Admin: 08/12/16 10:06 Dose: 100 mls/hr Levofloxacin (Levaquin 750 Mg Premixed Ivpb -) 150 mls @ 100 mls/hr IVPB DAILY [facility] Last Admin: 08/12/16 10:09 Dose: 100 mls/hr Clindamycin Phosphate (Cleocin 300 Mg Premix Ivpb) 50 mls @ 100 mls/hr IVPB Q8H -IV [facility] Last Admin: 08/12/16 10:08 Dose: 100 mls/hr Sodium Phosphate 15 mm/Magnesium Sulfate 2.95 gm/Insulin Human Regular 20 units / Thiamine HCl 100 mg/ Sodium Chloride 40 meq/ Potassium Chloride 20 meq/ Multivitamins /Minerals 10 ml/ Sterile Water / Amino Acids/ Dextrose 1,200 mls @ 50 mls/hr IV DAILY@1600 [facility] Last Admin: 08/11/16 15:27 Dose: 50 mls/hr Insulin Aspart (Novolog Vial Sliding Scale -) 1 vial SQ ACHS [facility] PRN Reason: Protocol Last Admin: 08/12/16 12:15 Dose: Not Given Miscellaneous (Duragesic Patch Waste) 1 each TD PRN PRN PRN Reason: PAIN - Objective Vital Signs: Vital Signs Temperature 100.8 F H 08/12/16 14:00 Pulse Rate 98 H 08/12/16 14:00 Respiratory Rate 20 08/12/16 14:32 Blood Pressure 126/69 08/12/16 14:00 O2 Sat by Pulse Oximetry (%) 97 08/12/16 09:56 Constitutional: Yes: Mild Distress Eyes: Yes: WNL HENT: Yes: WNL Neck: Yes: WNL Cardiovascular: Yes: WNL, Tachycardia Respiratory: Yes: Mechanically Ventilated Gastrointestinal: Yes: Hypoactive Bowel Sounds Edema: No Neurological: Yes: Alert Labs: CBC, BMP 08/12/16 12:00 08/12/16 12:00 INR, PTT INR 1.50 (0.82-1.09) H 08/09/16 11:30 Fibrinogen > 700.0 mg/dL (238-498) H 07/31/16 05:40
[2016-08-12] MEDS ORDERED: PT OWN MED DRAWER 7, Y5N ONE (17:02)
--- NOTE | 2016-08-12 17:10 | PN ---
Progress Note, Physician History of Present Illness: continues to be status quo on ventilator with trach in place still with fevers and high wbc patient has drainage from around the wound - Current Medication List Current Medications: Active Medications Acetaminophen (Ofirmev Injection -) 1,000 mg IVPB Q6H PRN PRN Reason: FEVER Last Admin: 08/11/16 05:15 Dose: 1,000 mg Chlorhexidine Gluconate (Hibiclens For Decolonization -) 1 applic TP HS [facility] Last Admin: 08/11/16 21:05 Dose: 1 applic Chlorhexidine Gluconate (Peridex -) 15 ml MM BID [facility] Last Admin: 08/12/16 10:11 Dose: 15 ml Dextrose (D50w (Vial) -) 50 ml IVPUSH Q15M PRN PRN Reason: BLOOD SUGAR < 60 Last Admin: 07/24/16 06:30 Dose: 50 ml Enoxaparin Sodium (Lovenox -) 40 mg SQ BID [facility] Last Admin: 08/12/16 10:10 Dose: 40 mg Fentanyl (Duragesic 25mcg Patch -) 1 patch TD Q72H [facility] Stop: 08/19/16 11:59 Last Admin: 08/12/16 13:03 Dose: 1 patch Meropenem 1 gm/ Dextrose 100 mls @ 100 mls/hr IVPB Q8H-IV [facility] PRN Reason: Protocol Last Admin: 08/12/16 10:10 Dose: 100 mls/hr Fluconazole (Diflucan 200 Mg/Ns Premixed Ivpb -) 100 mls @ 100 mls/hr IVPB DAILY [facility] Last Admin: 08/12/16 10:06 Dose: 100 mls/hr Fat Emulsion Intravenous (Intralipid -) 250 mls @ 20.833 mls/hr IV DAILY@2200 [facility] Last Admin: 08/11/16 21:07 Dose: 20.833 mls/hr Famotidine/Sodium Chloride (Pepcid 20 Mg Premixed Ivpb -) 50 mls @ 100 mls/hr IVPB BID [facility] Last Admin: 08/12/16 10:06 Dose: 100 mls/hr Levofloxacin (Levaquin 750 Mg Premixed Ivpb -) 150 mls @ 100 mls/hr IVPB DAILY [facility] Last Admin: 08/12/16 10:09 Dose: 100 mls/hr Clindamycin Phosphate (Cleocin 300 Mg Premix Ivpb) 50 mls @ 100 mls/hr IVPB Q8H -IV [facility] Last Admin: 08/12/16 10:08 Dose: 100 mls/hr Sodium Phosphate 15 mm/Magnesium Sulfate 2.95 gm/Insulin Human Regular 20 units / Thiamine HCl 100 mg/ Sodium Chloride 40 meq/ Potassium Chloride 20 meq/ Multivitamins /Minerals 10 ml/ Sterile Water / Amino Acids/ Dextrose 1,200 mls @ 50 mls/hr IV DAILY@1600 [facility] Last Admin: 08/11/16 15:27 Dose: 50 mls/hr Insulin Aspart (Novolog Vial Sliding Scale -) 1 vial SQ ACHS [facility] PRN Reason: Protocol Last Admin: 08/12/16 12:15 Dose: Not Given Miscellaneous (Duragesic Patch Waste) 1 each TD PRN PRN PRN Reason: PAIN - Objective Vital Signs: Vital Signs Temperature 100.8 F H 08/12/16 14:00 Pulse Rate 94 H 08/12/16 16:00 Respiratory Rate 18 08/12/16 16:49 Blood Pressure 120/62 08/12/16 16:00 O2 Sat by Pulse Oximetry (%) 97 08/12/16 09:56 Constitutional: Yes: Other Cardiovascular: Yes: Regular Rate and Rhythm Respiratory: Yes: Mechanically Ventilated, Other (trach) Gastrointestinal: Yes: Soft, Other Musculoskeletal: Yes: Other Extremities: Yes: Other (mummification of the fingers and toes) Wound/Incision: Yes: Draining, Other Neurological: Yes: Alert, Other Labs: CBC, BMP 08/12/16 12:00 08/12/16 12:00 INR, PTT INR 1.50 (0.82-1.09) H 08/09/16 11:30 Fibrinogen > 700.0 mg/dL (238-498) H 07/31/16 05:40 - ....Imaging Chest X-ray: Report Reviewed, Image Reviewed Assessment/Plan Problem List - Problems (1) Abdominal pain Code(s): R10.9 - UNSPECIFIED ABDOMINAL PAIN Qualifiers: Qualified Code(s): R10.33 - Periumbilical pain (2) Perforated abdominal viscus Code(s): [id number] - (3) Perforated viscus Code(s): R19.8 - OTH SYMPTOMS AND SIGNS INVOLVING THE DGSTV SYS AND ABDOMEN (4) Hypertension Code(s): I10 - ESSENTIAL (PRIMARY) HYPERTENSION Qualifiers: Qualified Code(s): I10 - Essential (primary) hypertension lactic acidosis fevers generalized swelling gangrene of the tip of the fingers noted plan continues to be critical continue current mgmt watch for fevers continue to monitor labx rest as per icu pls send cx from the wound cc time 40 min
--- NOTE | 2016-08-12 17:12 | PN ---
Progress Note, Physician History of Present Illness: family in room intubated still with low grade fevers wound cx awaited - Current Medication List Current Medications: Active Medications Acetaminophen (Ofirmev Injection -) 1,000 mg IVPB Q6H PRN PRN Reason: FEVER Last Admin: 08/11/16 05:15 Dose: 1,000 mg Chlorhexidine Gluconate (Hibiclens For Decolonization -) 1 applic TP HS [facility] Last Admin: 08/11/16 21:05 Dose: 1 applic Chlorhexidine Gluconate (Peridex -) 15 ml MM BID [facility] Last Admin: 08/12/16 10:11 Dose: 15 ml Dextrose (D50w (Vial) -) 50 ml IVPUSH Q15M PRN PRN Reason: BLOOD SUGAR < 60 Last Admin: 07/24/16 06:30 Dose: 50 ml Enoxaparin Sodium (Lovenox -) 40 mg SQ BID [facility] Last Admin: 08/12/16 10:10 Dose: 40 mg Fentanyl (Duragesic 25mcg Patch -) 1 patch TD Q72H [facility] Stop: 08/19/16 11:59 Last Admin: 08/12/16 13:03 Dose: 1 patch Meropenem 1 gm/ Dextrose 100 mls @ 100 mls/hr IVPB Q8H-IV [facility] PRN Reason: Protocol Last Admin: 08/12/16 10:10 Dose: 100 mls/hr Fluconazole (Diflucan 200 Mg/Ns Premixed Ivpb -) 100 mls @ 100 mls/hr IVPB DAILY [facility] Last Admin: 08/12/16 10:06 Dose: 100 mls/hr Fat Emulsion Intravenous (Intralipid -) 250 mls @ 20.833 mls/hr IV DAILY@2200 [facility] Last Admin: 08/11/16 21:07 Dose: 20.833 mls/hr Famotidine/Sodium Chloride (Pepcid 20 Mg Premixed Ivpb -) 50 mls @ 100 mls/hr IVPB BID [facility] Last Admin: 08/12/16 10:06 Dose: 100 mls/hr Levofloxacin (Levaquin 750 Mg Premixed Ivpb -) 150 mls @ 100 mls/hr IVPB DAILY [facility] Last Admin: 08/12/16 10:09 Dose: 100 mls/hr Clindamycin Phosphate (Cleocin 300 Mg Premix Ivpb) 50 mls @ 100 mls/hr IVPB Q8H -IV [facility] Last Admin: 08/12/16 10:08 Dose: 100 mls/hr Sodium Phosphate 15 mm/Magnesium Sulfate 2.95 gm/Insulin Human Regular 20 units / Thiamine HCl 100 mg/ Sodium Chloride 40 meq/ Potassium Chloride 20 meq/ Multivitamins /Minerals 10 ml/ Sterile Water / Amino Acids/ Dextrose 1,200 mls @ 50 mls/hr IV DAILY@1600 [facility] Last Admin: 08/11/16 15:27 Dose: 50 mls/hr Insulin Aspart (Novolog Vial Sliding Scale -) 1 vial SQ ACHS [facility] PRN Reason: Protocol Last Admin: 08/12/16 12:15 Dose: Not Given Miscellaneous (Duragesic Patch Waste) 1 each TD PRN PRN PRN Reason: PAIN - Objective Vital Signs: Vital Signs Temperature 100.8 F H 08/12/16 14:00 Pulse Rate 94 H 08/12/16 16:00 Respiratory Rate 18 08/12/16 16:49 Blood Pressure 120/62 08/12/16 16:00 O2 Sat by Pulse Oximetry (%) 97 08/12/16 09:56 Constitutional: Yes: Other Cardiovascular: Yes: Regular Rate and Rhythm Respiratory: Yes: Mechanically Ventilated, Other Gastrointestinal: Yes: Soft, Other Musculoskeletal: Yes: Other Wound/Incision: Yes: Other (fistula still draining) Neurological: Yes: Other (opens eyes) Labs: CBC, BMP 08/12/16 12:00 08/12/16 12:00 INR, PTT INR 1.50 (0.82-1.09) H 08/09/16 11:30 Fibrinogen > 700.0 mg/dL (238-498) H 07/31/16 05:40 - ....Imaging Chest X-ray: Report Reviewed, Image Reviewed Assessment/Plan Problem List - Problems (1) Abdominal pain Code(s): R10.9 - UNSPECIFIED ABDOMINAL PAIN Qualifiers: Qualified Code(s): R10.33 - Periumbilical pain (2) Perforated abdominal viscus Code(s): [id number] - (3) Perforated viscus Code(s): R19.8 - OTH SYMPTOMS AND SIGNS INVOLVING THE DGSTV SYS AND ABDOMEN (4) Hypertension Code(s): I10 - ESSENTIAL (PRIMARY) HYPERTENSION Qualifiers: Qualified Code(s): I10 - Essential (primary) hypertension lactic acidosis fevers generalized swelling gangrene of the tip of the fingers noted plan continues to be critical continue current mgmt watch for fevers continue to monitor labx rest as per icu await for cx report cc time 40 min
[2016-08-12] MEDS: SODIUM PHOSPHATE IV SCH (17:23)
[2016-08-12] MEDS: [UNRECOGNIZED DRUG - OTHER] IV SCH (17:23)
[2016-08-12] MEDS: MAGNESIUM SULFATE IV SCH (17:23)
[2016-08-12] MEDS: INSULIN REGULAR IV SCH (17:23)
[2016-08-12] MEDS: FAT EMULSIONS 250 ML IV SCH (22:01)
[2016-08-12] MEDS: CHLORHEXIDINE GLUCONATE 4% CLEANSER FOR DECOLONIZATION TP SCH (22:01)
[2016-08-12] MEDS ORDERED: HEMOQUE TEST 1 EACH EACH ONE (22:09)
[2016-08-13] MEDS: MEROPENEM 1 GM in DEXTROSE 5%-WATER - 100 ML IVPB SCH ×3 (01:29→17:03)
[2016-08-13] MEDS: CLINDAMYCIN 300 MG PREMIX IVPB 50 ML IVPB SCH ×3 (01:30→17:02)
[2016-08-13] MEDS: INSULIN SLIDING SCALE (NOVOLOG) 1 VIAL SQ SCH ×4 (06:13→23:25)
[2016-08-13 06:20] LABS: MCH 27.9 pg (25.7-33.7); MCHC 32.1 g/dl (32.0-36.0); MEAN PLT VOLUME 7.5 fl (7.5-11.1); PLATELET COUNT 607 K/MM3 (134-434); RDW 14.2 % (11.6-15.6); WHITE BLOOD COUNT 16.6 K/mm3 (4.0-10.0)
[2016-08-13 06:41] LABS: CALCIUM 8.1 mg/dL (8.5-10.1); COCKROFT - GAULT 207.417; CREATININE 0.3 mg/dL (0.55-1.02); MAGNESIUM 1.7 mg/dL (1.8-2.4); PHOSPHOROUS 3.3 mg/dL (2.5-4.9)
[2016-08-13 09:00] LABS: HYPOCHROMIA 1+; PLATELET ESTIMATE INCREASED (NORMAL)
--- NOTE | 2016-08-13 09:56 | PN ---
Progress Note, Physician Chief Complaint: Has minimal response to verbal commands History of Present Illness: Septic shock followed by respiratory failure Intestinal fistula - Current Medication List Current Medications: Active Medications Acetaminophen (Ofirmev Injection -) 1,000 mg IVPB Q6H PRN PRN Reason: FEVER Last Admin: 08/11/16 05:15 Dose: 1,000 mg Chlorhexidine Gluconate (Hibiclens For Decolonization -) 1 applic TP HS [facility] Last Admin: 08/12/16 22:01 Dose: 1 applic Chlorhexidine Gluconate (Peridex -) 15 ml MM BID [facility] Last Admin: 08/12/16 22:05 Dose: 15 ml Dextrose (D50w (Vial) -) 50 ml IVPUSH Q15M PRN PRN Reason: BLOOD SUGAR < 60 Last Admin: 07/24/16 06:30 Dose: 50 ml Enoxaparin Sodium (Lovenox -) 40 mg SQ BID [facility] Last Admin: 08/12/16 22:04 Dose: 40 mg Fentanyl (Duragesic 25mcg Patch -) 1 patch TD Q72H [facility] Stop: 08/19/16 11:59 Last Admin: 08/12/16 13:03 Dose: 1 patch Meropenem 1 gm/ Dextrose 100 mls @ 100 mls/hr IVPB Q8H-IV [facility] PRN Reason: Protocol Last Admin: 08/13/16 01:29 Dose: 100 mls/hr Fluconazole (Diflucan 200 Mg/Ns Premixed Ivpb -) 100 mls @ 100 mls/hr IVPB DAILY [facility] Last Admin: 08/12/16 10:06 Dose: 100 mls/hr Fat Emulsion Intravenous (Intralipid -) 250 mls @ 20.833 mls/hr IV DAILY@2200 [facility] Last Admin: 08/12/16 22:01 Dose: 20.833 mls/hr Famotidine/Sodium Chloride (Pepcid 20 Mg Premixed Ivpb -) 50 mls @ 100 mls/hr IVPB BID [facility] Last Admin: 08/12/16 22:03 Dose: 100 mls/hr Levofloxacin (Levaquin 750 Mg Premixed Ivpb -) 150 mls @ 100 mls/hr IVPB DAILY [facility] Last Admin: 08/12/16 10:09 Dose: 100 mls/hr Clindamycin Phosphate (Cleocin 300 Mg Premix Ivpb) 50 mls @ 100 mls/hr IVPB Q8H -IV [facility] Last Admin: 08/13/16 01:30 Dose: 100 mls/hr Sodium Phosphate 15 mm/Magnesium Sulfate 2.95 gm/Insulin Human Regular 20 units / Thiamine HCl 100 mg/ Sodium Chloride 40 meq/ Potassium Chloride 20 meq/ Multivitamins /Minerals 10 ml/ Sterile Water / Amino Acids/ Dextrose 1,200 mls @ 50 mls/hr IV DAILY@1600 [facility] Last Admin: 08/12/16 17:23 Dose: 50 mls/hr Insulin Aspart (Novolog Vial Sliding Scale -) 1 vial SQ ACHS [facility] PRN Reason: Protocol Last Admin: 08/13/16 06:13 Dose: 2 unit Miscellaneous (Duragesic Patch Waste) 1 each TD PRN PRN PRN Reason: PAIN - Objective Vital Signs: Vital Signs Temperature 100.2 F H 08/13/16 08:00 Pulse Rate 96 H 08/13/16 08:00 Respiratory Rate 22 08/13/16 08:00 Blood Pressure 127/62 08/13/16 08:00 O2 Sat by Pulse Oximetry (%) 96 08/13/16 08:00 Constitutional: Yes: Moderate Distress Eyes: Yes: WNL HENT: Yes: WNL Neck: Yes: Supple Cardiovascular: Yes: Tachycardia Respiratory: Yes: Mechanically Ventilated Gastrointestinal: Yes: Hypoactive Bowel Sounds ...Rectal Exam: Yes: Deferred Genitourinary: Yes: Bacon Present Labs: CBC, BMP 08/13/16 05:30 08/13/16 05:30 INR, PTT INR 1.50 (0.82-1.09) H 08/09/16 11:30 Fibrinogen > 700.0 mg/dL (238-498) H 07/31/16 05:40 Assessment/Plan Transfer to floor
[2016-08-13] MEDS ORDERED: PT OWN MED DRAWER 7, Y5N ONE ×3 (11:23→18:43)
[2016-08-13] MEDS: FAMOTIDINE 20 MG/50 ML IVPB 50 ML IVPB SCH ×2 (11:25→23:08)
[2016-08-13] MEDS: LEVOFLOXACIN 750 MG IVPB 150 ML IVPB SCH (11:25)
[2016-08-13] MEDS: CHLORHEXIDINE GLUCONATE 0.12% 15ML CUP MM SCH ×2 (11:26→23:09)
[2016-08-13] MEDS: ENOXAPARIN NA (PORCINE) 40 MG/0.4 ML DISP.SYRIN SQ SCH ×2 (11:26→23:08)
--- NOTE | 2016-08-13 11:30 | PN ---
Progress Note (short form) - Note Progress Note: Neurology History of Present Illness The patient is a 65-year-old woman, with a significant past medical history of hypertension, hypercholesterolemia, diabetes mellitus and GI disorders who presented to the emergency department via walk-in for further evaluation of abdominal pain for the past 3-4 days with unintentional 20 lb weight loss over the past three months. She required surgical intervention as documented by Dr. Louise. Thereafter, complicated course and patient in ICU, off sedation for several days. CT head without acute changes. Patient was not awakening initially and concern was hypoperfusion and possible anoxic brain injury. 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 Since, has awoken and is keeps eye open, occasional tracking and previously occasional spontaneous extremity movement but minimal now. Does have notable gangrene of fingers and toes. protecting airway and remains intubated and on vent, status post trach as she was not able to tolerate weaning. Toxic metabolic vs hypoperfusion and anoxic brain injury. Would benefit from MRI but not able to obtain due to vent. Has sepsis and getting ongoing treatment. Previously opening mouth and sticking out tongue to command with resident but no significant cognitive activity at this time. Remains awake, not performing complex commands. *Physical Exam Vital Signs Period Temp Pulse Resp BP Sys/Major Pulse Ox Last 24 Hr 99.9 F-100.8 F 88-102 15-28 119-140/57-81 96-99 GENERAL: Awake Frail appearing. HEENT: Normocephalic, atraumatic. +Temporal wasting. PERRL, EOMI. No conjunctival pallor. +Sclera are icteric. +Dry mucous membranes. Oropharynx is clear. NECK: Supple. Full ROM. No JVD. CARDIOVASCULAR: Tachycardic rate but regular rate and rhythm. No murmurs, rubs, or gallops. PULMONARY: +Diffuse dyspneic breath sounds that are equal bilaterally. No wheezing, crackles or rhonchi. ABDOMINAL: Firm but soft abdomen. Diffuse tenderness to palpation without rebound or guarding. Non-distended. No organomegaly. Normoactive bowel sounds. MUSCULOSKELETAL: Normal range of motion at all joints. No bony deformities or tenderness. No CVA tenderness. EXTREMITIES: No cyanosis. No clubbing. No edema. No calf tenderness. SKIN: Tenting of the skin. Jaundiced. No rashes. NEUROLOGICAL: Trached, ventilation, opens eyes and minimal movement of extremities but not cooperating with confrontation testing, withdraws to pain, not following complex commands, not tracking CBCD WBC 16.6 K/mm3 (4.0-10.0) H 08/13/16 05:30 RBC 2.66 M/mm3 (3.60-5.2) L 08/13/16 05:30 Hgb 7.4 GM/dL (10.7-15.3) L 08/13/16 05:30 Hct 23.2 % (32.4-45.2) L 08/13/16 05:30 MCV 87.0 fl (80-96) 08/13/16 05:30 MCHC 32.1 g/dl (32.0-36.0) 08/13/16 05:30 RDW 14.2 % (11.6-15.6) 08/13/16 05:30 Plt Count 607 K/MM3 (134-434) H 08/13/16 05:30 MPV 7.5 fl (7.5-11.1) 08/13/16 05:30 CMP Sodium 137 mmol/L (136-145) 08/13/16 05:30 Potassium 4.2 mmol/L (3.5-5.1) 08/13/16 05:30 Chloride 101 mmol/L (98-107) 08/13/16 05:30 Carbon Dioxide 28 mmol/L (21-32) 08/13/16 05:30 Anion Gap 8 (8-16) 08/13/16 05:30 BUN 16 mg/dL (7-18) 08/13/16 05:30 Creatinine 0.3 mg/dL (0.55-1.02) L D 08/13/16 05:30 Creat Clearance w eGFR > 60 (>60) 08/09/16 05:20 Calcium 8.1 mg/dL (8.5-10.1) L 08/13/16 05:30 Total Bilirubin 0.4 mg/dL (0.2-1.0) 08/09/16 05:20 AST 28 U/L (15-37) 08/09/16 05:20 ALT 17 U/L (12-78) 08/09/16 05:20 Alkaline Phosphatase 133 U/L (45-117) H 08/09/16 05:20 Total Protein 5.4 g/dl (6.4-8.2) L 08/09/16 05:20 Albumin 0.9 g/dl (3.4-5.0) L 08/09/16 05:20 EXAM: CT/HEAD CT WITHOUT CONTRAST IMPRESSION: Comparison study MRI of the brain February 23, 2015. Findings. Serial axial images of the brain were obtained from foramen magnum to the cranial vertex without intravenous contrast, with coronal, sagittal reconstruction images. No evidence of hydrocephalus, acute subarachnoid hemorrhage, acute intra-axial or extra-axial fluid collection consistent with subdural or epidural hematoma. No mass effect, midline shift, acute ischemic changes, herniation or edema is present. Normal yancey matter white matter differentiation. The cortical sulci, sylvian fissures, perimesencephalic cisterns are not effaced. The CSF spaces are age-appropriate. Supratentorial periventricular chronic white matter microangiopathic ischemic changes are noted. Examination of the bone windows show no fracture. Normal intracranial physiological calcifications are observed. The cranial vascular calcifications are noted. The visualized paranasal sinuses and mastoid air cells are clear. Medical Decision Making 65-year-old woman, with a significant past medical history of hypertension, hypercholesterolemia, diabetes mellitus and GI disorders who presented to the emergency department via walk-in for further evaluation of abdominal pain for the past 3-4 days with unintentional 20 lb weight loss over the past three months. She required surgical intervention as documented by Dr. Louise. Thereafter , complicated course and patient in ICU, off sedation for several days. CT head without acute changes. Patient was not awakening initially and concern was hypoperfusion and possible anoxic brain injury. Since, has awoken and is keeps eye open, some tracking previously and producing spontaneous extremity movement previously. Toxic metabolic vs hypoperfusion and anoxic brain injury. Would benefit from MRI but not able to obtain due to vent. Continue sepsis treatment Unable to be weaned off vent, status post trach Not currently on pressors, monitor blood pressures Continued medical management for multiple complications Mental status appears to be stable, monitor for increased ability to follow commands and perform higher order tasks Supposed to be transferred to floor today
--- NOTE | 2016-08-13 11:44 | PN ---
Teaching Attending Note Name of Resident: Trevin Terrazas ATTENDING PHYSICIAN STATEMENT I saw and evaluated the patient. I reviewed the resident's note and discussed the case with the resident. I agree with the resident's findings and plan as documented. SUBJECTIVE: Pt seen and examined in the ICU. Vented, poorly responsive. Off pressors. Low grade fevers persist. OBJECTIVE: Last Vital Signs Temp Pulse Resp BP Pulse Ox 100.8 F H 102 H 28 H 127/65 97 08/13/16 10:00 08/13/16 10:40 08/13/16 10:15 08/13/16 10:00 08/13/16 10:40 Intake & Output 08/10/16 08/11/16 08/12/16 08/13/16 23:59 23:59 23:59 23:59 Intake Total 2548 2080 2263 1052 Output Total 1380 1350 1400 400 Balance 1168 730 863 652 Weight 156 lb 8 oz 154 lb 158 lb 159 lb 3 oz Gen: vented, poorly responsive Heart: tachycardic, regular Lung: scattered rhonchi Abd: soft, +fistula Ext: + edema, dry gangrene of bilateral feet, fingers CBC, BMP 08/13/16 05:30 08/13/16 05:30 Active Medications Acetaminophen (Ofirmev Injection -) 1,000 mg IVPB Q6H PRN PRN Reason: FEVER Last Admin: 08/11/16 05:15 Dose: 1,000 mg Chlorhexidine Gluconate (Hibiclens For Decolonization -) 1 applic TP HS [facility] Last Admin: 08/12/16 22:01 Dose: 1 applic Chlorhexidine Gluconate (Peridex -) 15 ml MM BID [facility] Last Admin: 08/13/16 11:26 Dose: 15 ml Dextrose (D50w (Vial) -) 50 ml IVPUSH Q15M PRN PRN Reason: BLOOD SUGAR < 60 Last Admin: 07/24/16 06:30 Dose: 50 ml Enoxaparin Sodium (Lovenox -) 40 mg SQ BID [facility] Last Admin: 08/13/16 11:26 Dose: 40 mg Fentanyl (Duragesic 25mcg Patch -) 1 patch TD Q72H [facility] Stop: 08/19/16 11:59 Last Admin: 08/12/16 13:03 Dose: 1 patch Meropenem 1 gm/ Dextrose 100 mls @ 100 mls/hr IVPB Q8H-IV [facility] PRN Reason: Protocol Last Admin: 08/13/16 11:25 Dose: 100 mls/hr Fluconazole (Diflucan 200 Mg/Ns Premixed Ivpb -) 100 mls @ 100 mls/hr IVPB DAILY [facility] Last Admin: 08/12/16 10:06 Dose: 100 mls/hr Fat Emulsion Intravenous (Intralipid -) 250 mls @ 20.833 mls/hr IV DAILY@2200 [facility] Last Admin: 08/12/16 22:01 Dose: 20.833 mls/hr Famotidine/Sodium Chloride (Pepcid 20 Mg Premixed Ivpb -) 50 mls @ 100 mls/hr IVPB BID [facility] Last Admin: 08/13/16 11:25 Dose: 100 mls/hr Levofloxacin (Levaquin 750 Mg Premixed Ivpb -) 150 mls @ 100 mls/hr IVPB DAILY [facility] Last Admin: 08/13/16 11:25 Dose: 100 mls/hr Clindamycin Phosphate (Cleocin 300 Mg Premix Ivpb) 50 mls @ 100 mls/hr IVPB Q8H -IV [facility] Last Admin: 08/13/16 11:25 Dose: 100 mls/hr Sodium Phosphate 15 mm/Magnesium Sulfate 2.95 gm/Insulin Human Regular 20 units / Thiamine HCl 100 mg/ Sodium Chloride 40 meq/ Potassium Chloride 20 meq/ Multivitamins /Minerals 10 ml/ Sterile Water / Amino Acids/ Dextrose 1,200 mls @ 50 mls/hr IV DAILY@1600 [facility] Last Admin: 08/12/16 17:23 Dose: 50 mls/hr Insulin Aspart (Novolog Vial Sliding Scale -) 1 vial SQ ACHS [facility] PRN Reason: Protocol Last Admin: 08/13/16 06:13 Dose: 2 unit Miscellaneous (Duragesic Patch Waste) 1 each TD PRN PRN PRN Reason: PAIN ASSESSMENT AND PLAN: Perforated Duodenal Ulcer Peritonitis s/p ex-lap/omental patch repair 07/16 Enterocutaneous Fistula Acute Respiratory Failure Septic Shock Lactic Acidosis Leukopenia/Thrombocytopenia likely from sepsis DM DVT Gangrene - antibiotics per ID - monitoring off pressors, maintain MAP >65 - monitor urine output, creatinine - taper Fio2 to keep Spo2 >90% - continue anticoagulation - same TPN - spontaneous breathing trials as tolerated - DVT/GI prophylaxis - prognosis is poor, continue discussions regarding advanced directives and goals of care - recommend palliative due to failure to wean, anticipated amputations, poor quality of life - can monitor on vent floor
--- NOTE | 2016-08-13 11:53 | PN ---
Physical Exam: SUBJECTIVE: Patient seen and examined. opens eyes to verbal and tactile stimuli, not following commands today. placed on SIMV mode OBJECTIVE: Vital Signs Period Temp Pulse Resp BP Sys/Major Pulse Ox Last 24 Hr 99.9 F-100.8 F 88-102 15-28 119-140/57-81 96-99 HEAD: Bitemporal wasting. facial erythema and skin sloughing EYES:PERRLA, sclera anicteric. ENT: NGT in place to wall suction, s/p trachostomy NECK: Trachea midline with trach, scant discharge, some drooling of water mucus from mouth, LIJ site CDI. LUNGS: anterior bilaterally, no wheezes, quiet at bases, coarse breath sounds HEART: regular rate/rhythm, S1, S2 without murmur, rub or gallop. ABDOMEN: colectomy placed over sump pump tube insertion site, soft abdomen, breakdown of skin at incision site at umbilicus with scant pus-like discharge, open ulcers throughout abdomen with scant serous discharge, covered in xeroform. s EXTREMITIES: 2+ left radial pulse, 1+ right radial pulse, no pulse in DP b/l, acrocyanosis extending from fingernails to mid-forearm, left hand: gangrene at fingertips upto to pIP joint in 2nd-5th digits, surrounding erythema on palm and dorsum of hand with mottling. contracted fingers. right hand: gangrene at fingertips upto pIP joint in 1st - 5th digits, contracted fingers. no edema in legs. acrocyanosis in toes, marked in 5th digits b/l with skin mottling upto ankles. no edema. SKIN: multiple open ulcers throughout body, no edema, few ulcers with eschars NEUROLOGICAL: opens eyes to verbal stimuli. grimaces when feet, hands, and abdomen are touched, lethargic, easily arousable but does not stay awake. is not making eye contact/tracking. Laboratory Results - last 24 hr 08/12/16 08/12/16 08/12/16 12:00 12:00 12:00 WBC 16.3 H RBC 2.54 L Hgb 7.3 L Hct 22.2 L MCV 87.3 MCHC 33.0 RDW 14.1 Plt Count 553 H MPV 7.0 L D Neutrophils % 81.1 Lymphocytes % 7.4 L D Monocytes % 9.2 Eosinophils % 1.4 Basophils % 0.9 Myelocytes Differential Comment Platelet Estimate Hypochromic-Microcytic Sodium 140 Potassium 4.0 Chloride 103 Carbon Dioxide 28 Anion Gap 9 BUN 17 Creatinine 0.2 L D POC Glucometer [phone] Random Glucose 111 H D Calcium 8.2 L Phosphorus 3.2 Magnesium 1.6 L 08/12/16 08/12/16 08/13/16 17:19 22:11 05:30 WBC 16.6 H RBC 2.66 L Hgb 7.4 L Hct 23.2 L MCV 87.0 MCHC 32.1 RDW 14.2 Plt Count 607 H MPV 7.5 Neutrophils % 88.0 H Lymphocytes % 7.0 L Monocytes % 4.0 Eosinophils % Basophils % Myelocytes 1 D Differential Comment Manual diff done Platelet Estimate Increased Hypochromic-Microcytic 1+ Sodium Potassium Chloride Carbon Dioxide Anion Gap BUN Creatinine POC Glucometer 149.59605 [phone] Random Glucose Calcium Phosphorus Magnesium 08/13/16 05:30 WBC RBC Hgb Hct MCV MCHC RDW Plt Count MPV Neutrophils % Lymphocytes % Monocytes % Eosinophils % Basophils % Myelocytes Differential Comment Platelet Estimate Hypochromic-Microcytic Sodium 137 Potassium 4.2 Chloride 101 Carbon Dioxide 28 Anion Gap 8 BUN 16 Creatinine 0.3 L D POC Glucometer Random Glucose 172 H D Calcium 8.1 L Phosphorus 3.3 Magnesium 1.7 L Active Medications Generic Name Dose Route Start Last Admin Trade Name Freq PRN Reason Stop Dose Admin Acetaminophen 1,000 mg 07/19/16 15:43 08/11/16 05:15 Ofirmev Injection - IVPB 1,000 mg Q6H PRN Administration FEVER Chlorhexidine Gluconate 1 applic 07/16/16 22:00 08/12/16 22:01 Hibiclens For Decolonization - TP 1 applic HS [facility] Administration Chlorhexidine Gluconate 15 ml 07/21/16 10:00 08/13/16 11:26 Peridex - MM 15 ml BID [facility] Administration Dextrose 50 ml 07/24/16 07:18 07/24/16 06:30 D50w (Vial) - IVPUSH 50 ml Q15M PRN Administration BLOOD SUGAR < 60 Enoxaparin Sodium 40 mg 08/04/16 10:15 08/13/16 11:26 Lovenox - SQ 40 mg BID [facility] Administration Fentanyl 1 patch 08/12/16 12:00 08/12/16 13:03 Duragesic 25mcg Patch - TD 08/19/16 11:59 1 patch Q72H [facility] Administration Meropenem 1 gm/ Dextrose 100 mls @ 100 mls/hr 07/19/16 18:00 08/13/16 11:25 IVPB 100 mls/hr Q8H-IV [facility] Administration Protocol Fluconazole 100 mls @ 100 mls/hr 07/30/16 10:00 08/12/16 10:06 Diflucan 200 Mg/Ns Premixed Ivpb - IVPB 100 mls/hr DAILY [facility] Administration Fat Emulsion Intravenous 250 mls @ 20.833 mls/hr 07/31/16 22:00 08/12/16 22:01 Intralipid - IV 20.833 mls/hr DAILY@2200 [facility] Administration Famotidine/Sodium Chloride 50 mls @ 100 mls/hr 07/31/16 22:00 08/13/16 11:25 Pepcid 20 Mg Premixed Ivpb - IVPB 100 mls/hr BID [facility] Administration Levofloxacin 150 mls @ 100 mls/hr 08/04/16 17:00 08/13/16 11:25 Levaquin 750 Mg Premixed Ivpb - IVPB 100 mls/hr DAILY [facility] Administration Clindamycin Phosphate 50 mls @ 100 mls/hr 08/08/16 13:45 08/13/16 11:25 Cleocin 300 Mg Premix Ivpb IVPB 100 mls/hr Q8H-IV [facility] Administration Sodium Phosphate 15 mm/ 1,200 mls @ 50 mls/hr 08/09/16 16:00 08/12/16 17:23 Magnesium Sulfate 2.95 gm/ IV 50 mls/hr Insulin Human Regular 20 units DAILY@1600 [facility] Administration / Thiamine HCl 100 mg/ Sodium Chloride 40 meq/ Potassium Chloride 20 meq/ Multivitamins /Minerals 10 ml/ Sterile Water / Amino Acids/ Dextrose Insulin Aspart 1 vial 07/17/16 16:30 08/13/16 06:13 Novolog Vial Sliding Scale - SQ 2 unit ACHS [facility] Administration Protocol Miscellaneous 1 each 08/12/16 11:59 Duragesic Patch Waste TD PRN PRN PAIN ASSESSMENT/PLAN: 65 yr old woman with HTN, dementia, NIDDM II admitted to ICU with septic shock secondary to perforated duodenal ulcer and peritonitis, 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 to discuss GOC Cardivascular Normotensive - maintain goal MAP>65 - monitor urine output - left IJ central line placed /2 Pulmonary trach placed 6/ fio2 40%, sat 100%, RR 14 titrate to maintain spo2 >90% - referral to LTAC initiated, discussed case with Radha (tj manufacturer representative) ; pt needs plan regarding fistula and extermities, she will present the case to tj, awaiting decision from insurance and tj facility. - discussed with , he is unsure about LTAC given distance, however he will discuss with his daughter Gastrointestinal; s/p repair perforated duodenal ulcer 07/16, - Meropenem IV 1gm q8hr - day 25 - Diflucan 200mg IVPB daily, discussed with Dr. Burgess, continue for now - Day 28 - Rocephin 750gm daily IVPB - Day 10 - Cleocin restarted - 300mg IVPB q8hr - 21 days - pepcid ivpb 20g daily - enterocutaenous fistula with colostomy bag -- stop tube feeds, bowel rest and NG tube to wall suction, monitor output - once output stops can restart enteral feeds - placed on TPN (day 13) Renal - Bacon placed in ED pre-op 07/16 - consult: Dr. Tubbs Infectious Disease - consulted - meropenem + diflucan + levofloxacin + cleocin - tylenol IVPB 1gm q6hr for fevers + ice packs at axilla, neck, groin. avoid cooling blanket on extremities and on feet. -- fevers possible from multiple sources including gangrene, skin ulcers and fistula - wound cx sent from [facility]bil[facility] Endocrine NIDDM II - BGM q6hrs w/ goal 140-180, NISS. Hematologic - cephalic vein SVT and right IJ clot, likley iatrogenic from central line placement - txment with lovenox BID 40sq daily - thrombocytosis likely reactive due to sepsis - trend H/H, transfuse of hgb <7.0, - leucocytosis trending up, likely from multiple sources - consult Dr. Church Neurologic consult: Dr. Allen consulted for further neurological evaluation; rec MRI, however not transportable on vent, continue medical management. lethargic today. Dementia Musck - will require amputation of gangrenous extremities once medically stable and demarcation occurs. Diet: TPN DVT- lovenox BID 40 sq (continue for 3 months since initiated to treat right IJ clot) Dispo: can be monitored on vent Med-surg floor, will likely need SNF placement at time of discharge Visit type - Emergency Visit Emergency Visit: No - New Patient This patient is new to me today: No - Critical Care Critical Care patient: Yes Total Critical Care Time (in minutes): 36 Critical Care Statement: The care of this patient involved high complexity decision making to prevent further life threatening deterioration of the patient 's condition and/or to evalute & treat vital organ system(s) failure or risk of failure.
[2016-08-13] MEDS: FLUCONAZOLE 200 MG/NS 100 ML IVPB SCH (13:07)
--- NOTE | 2016-08-13 17:23 | PN ---
Progress Note, Physician History of Present Illness: no events low grade temp no changes intubated - Current Medication List Current Medications: Active Medications Acetaminophen (Ofirmev Injection -) 1,000 mg IVPB Q6H PRN PRN Reason: FEVER Last Admin: 08/11/16 05:15 Dose: 1,000 mg Chlorhexidine Gluconate (Hibiclens For Decolonization -) 1 applic TP HS [facility] Last Admin: 08/12/16 22:01 Dose: 1 applic Chlorhexidine Gluconate (Peridex -) 15 ml MM BID [facility] Last Admin: 08/13/16 11:26 Dose: 15 ml Dextrose (D50w (Vial) -) 50 ml IVPUSH Q15M PRN PRN Reason: BLOOD SUGAR < 60 Last Admin: 07/24/16 06:30 Dose: 50 ml Enoxaparin Sodium (Lovenox -) 40 mg SQ BID [facility] Last Admin: 08/13/16 11:26 Dose: 40 mg Fentanyl (Duragesic 25mcg Patch -) 1 patch TD Q72H [facility] Stop: 08/19/16 11:59 Last Admin: 08/12/16 13:03 Dose: 1 patch Meropenem 1 gm/ Dextrose 100 mls @ 100 mls/hr IVPB Q8H-IV [facility] PRN Reason: Protocol Last Admin: 08/13/16 17:03 Dose: 100 mls/hr Fluconazole (Diflucan 200 Mg/Ns Premixed Ivpb -) 100 mls @ 100 mls/hr IVPB DAILY [facility] Last Admin: 08/13/16 13:07 Dose: 100 mls/hr Fat Emulsion Intravenous (Intralipid -) 250 mls @ 20.833 mls/hr IV DAILY@2200 [facility] Last Admin: 08/12/16 22:01 Dose: 20.833 mls/hr Famotidine/Sodium Chloride (Pepcid 20 Mg Premixed Ivpb -) 50 mls @ 100 mls/hr IVPB BID [facility] Last Admin: 08/13/16 11:25 Dose: 100 mls/hr Levofloxacin (Levaquin 750 Mg Premixed Ivpb -) 150 mls @ 100 mls/hr IVPB DAILY [facility] Last Admin: 08/13/16 11:25 Dose: 100 mls/hr Clindamycin Phosphate (Cleocin 300 Mg Premix Ivpb) 50 mls @ 100 mls/hr IVPB Q8H -IV [facility] Last Admin: 08/13/16 17:02 Dose: 100 mls/hr Sodium Phosphate 15 mm/Magnesium Sulfate 2.95 gm/Insulin Human Regular 20 units / Thiamine HCl 100 mg/ Sodium Chloride 40 meq/ Potassium Chloride 20 meq/ Multivitamins /Minerals 10 ml/ Sterile Water / Amino Acids/ Dextrose 1,200 mls @ 50 mls/hr IV DAILY@1600 [facility] Last Admin: 08/12/16 17:23 Dose: 50 mls/hr Insulin Aspart (Novolog Vial Sliding Scale -) 1 vial SQ ACHS [facility] PRN Reason: Protocol Last Admin: 08/13/16 17:02 Dose: 2 unit Miscellaneous (Duragesic Patch Waste) 1 each TD PRN PRN PRN Reason: PAIN - Objective Vital Signs: Vital Signs Temperature 100.7 F H 08/13/16 14:00 Pulse Rate 100 H 08/13/16 16:00 Respiratory Rate 24 08/13/16 16:00 Blood Pressure 112/64 08/13/16 16:00 O2 Sat by Pulse Oximetry (%) 100 08/13/16 11:00 Constitutional: Yes: Other Cardiovascular: Yes: Regular Rate and Rhythm Respiratory: Yes: Mechanically Ventilated, Other (trach) Gastrointestinal: Yes: Other Musculoskeletal: Yes: Other Extremities: Yes: Other Neurological: Yes: Alert Labs: CBC, BMP 08/13/16 05:30 08/13/16 05:30 INR, PTT INR 1.50 (0.82-1.09) H 08/09/16 11:30 Fibrinogen > 700.0 mg/dL (238-498) H 07/31/16 05:40 Assessment/Plan Problem List - Problems (1) Abdominal pain Code(s): R10.9 - UNSPECIFIED ABDOMINAL PAIN Qualifiers: Qualified Code(s): R10.33 - Periumbilical pain (2) Perforated abdominal viscus Code(s): [id number] - (3) Perforated viscus Code(s): R19.8 - OTH SYMPTOMS AND SIGNS INVOLVING THE DGSTV SYS AND ABDOMEN (4) Hypertension Code(s): I10 - ESSENTIAL (PRIMARY) HYPERTENSION Qualifiers: Qualified Code(s): I10 - Essential (primary) hypertension lactic acidosis fevers generalized swelling gangrene of the tip of the fingers noted plan continues to be critical final decision to be made continue current mgmt watch for fevers continue to monitor labx rest as per icu await for cx report cc time 40 min
[2016-08-13] MEDS: [UNRECOGNIZED DRUG - OTHER] IV SCH (18:48)
[2016-08-13] MEDS: MAGNESIUM SULFATE IV SCH (18:48)
[2016-08-13] MEDS: INSULIN REGULAR IV SCH (18:48)
[2016-08-13] MEDS: SODIUM PHOSPHATE IV SCH (18:48)
[2016-08-13] MEDS ORDERED: FENTANYL PATCH WASTE MC PRN (19:11)
[2016-08-13] MEDS ORDERED: DEXTROSE 50%-WATER - 25 GM/50 ML VIAL IVPUSH PRN (19:11)
[2016-08-13] MEDS ORDERED: CHLORHEXIDINE GLUCONATE 4% CLEANSER FOR DECOLONIZATION TP SCH (22:00)
[2016-08-13] MEDS ORDERED: INSULIN (NOVOLOG) ASPART 100 UNITS/ML 10ML VIAL ONE (23:04)
[2016-08-13] MEDS: FAT EMULSIONS 250 ML IV SCH (23:07)
[2016-08-14] MEDS: MEROPENEM 1 GM in DEXTROSE 5%-WATER - 100 ML IVPB SCH ×3 (02:13→18:15)
[2016-08-14] MEDS: CLINDAMYCIN 300 MG PREMIX IVPB 50 ML IVPB SCH ×3 (02:13→18:15)
[2016-08-14] MEDS: INSULIN SLIDING SCALE (NOVOLOG) 1 VIAL SQ SCH ×4 (06:59→23:16)
[2016-08-14 08:15] LABS: EOSINOPHIL 1.4 % (0-4.5); MCH 28.2 pg (25.7-33.7); MCHC 32.4 g/dl (32.0-36.0); MEAN CELL VOLUME 87.1 fl (80-96); MEAN PLT VOLUME 7.4 fl (7.5-11.1); NEUTROPHILS 78.3 % (42.8-82.8); PLATELET COUNT 586 K/MM3 (134-434); RDW 14.5 % (11.6-15.6); WHITE BLOOD COUNT 16.3 K/mm3 (4.0-10.0)
[2016-08-14 08:29] LABS: CALCIUM 7.8 mg/dL (8.5-10.1); COCKROFT - GAULT 207.417; CREATININE 0.3 mg/dL (0.55-1.02); MAGNESIUM 1.8 mg/dL (1.8-2.4); PHOSPHOROUS 3.1 mg/dL (2.5-4.9)
[2016-08-14] MEDS ORDERED: PT OWN MED DRAWER 7, Y5N ONE ×3 (09:07→22:57)
[2016-08-14] MEDS: FLUCONAZOLE 200 MG/D5W 100 ML IVPB SCH (09:10)
[2016-08-14] MEDS: ENOXAPARIN NA (PORCINE) 40 MG/0.4 ML DISP.SYRIN SQ SCH ×2 (09:16→22:59)
[2016-08-14] MEDS ORDERED: FLUCONAZOLE 200 MG/NS 100 ML IVPB SCH (10:00)
[2016-08-14] MEDS: CHLORHEXIDINE GLUCONATE 0.12% 15ML CUP MM SCH ×2 (10:06→22:59)
[2016-08-14] MEDS: LEVOFLOXACIN 750 MG IVPB 150 ML IVPB SCH (10:08)
--- NOTE | 2016-08-14 11:55 | PN ---
Progress Note (short form) - Note Progress Note: PULMONARY Vented on volume assist control. Low grade fevers overnight. Remains poorly responsive. Last Vital Signs Temp Pulse Resp BP Pulse Ox 97.6 F 100 H 22 152/90 95 08/14/16 09:26 08/14/16 09:26 08/14/16 10:15 08/14/16 09:26 08/13/16 18:00 Gen: vented, poorly responsive Heart: tachycardic, regular Lung: scattered rhonchi Abd: soft, nontender Ext: multiple ulcers, dry gangrene of bilateral feet, fingers CBC, BMP 08/14/16 07:00 08/14/16 07:00 Active Medications Acetaminophen (Ofirmev Injection -) 1,000 mg IVPB Q6H PRN PRN Reason: FEVER Chlorhexidine Gluconate (Peridex -) 15 ml MM BID [facility] Last Admin: 08/14/16 10:06 Dose: 15 ml Dextrose (D50w (Vial) -) 50 ml IVPUSH Q15M PRN PRN Reason: BLOOD SUGAR < 60 Enoxaparin Sodium (Lovenox -) 40 mg SQ BID [facility] Last Admin: 08/14/16 09:16 Dose: 40 mg Fentanyl (Duragesic 25mcg Patch -) 1 patch TD Q72H [facility] Stop: 08/19/16 11:59 Clindamycin Phosphate (Cleocin 300 Mg Premix Ivpb) 50 mls @ 100 mls/hr IVPB Q8H -IV [facility] Last Admin: 08/14/16 02:13 Dose: 100 mls/hr Fat Emulsion Intravenous (Intralipid -) 250 mls @ 20.833 mls/hr IV DAILY@2200 [facility] Last Admin: 08/13/16 23:07 Dose: 20.833 mls/hr Levofloxacin (Levaquin 750 Mg Premixed Ivpb -) 150 mls @ 100 mls/hr IVPB DAILY [facility] Last Admin: 08/14/16 10:08 Dose: 100 mls/hr Meropenem 1 gm/ Dextrose 100 mls @ 100 mls/hr IVPB Q8H-IV [facility] PRN Reason: Protocol Last Admin: 08/14/16 11:38 Dose: 100 mls/hr Famotidine/Sodium Chloride (Pepcid 20 Mg Premixed Ivpb -) 50 mls @ 100 mls/hr IVPB BID [facility] Last Admin: 08/13/16 23:08 Dose: 100 mls/hr Sodium Phosphate 15 mm/Magnesium Sulfate 2.95 gm/Insulin Human Regular 20 units / Thiamine HCl 100 mg/ Sodium Chloride 40 meq/ Potassium Chloride 20 meq/ Multivitamins /Minerals 10 ml/ Sterile Water / Amino Acids/ Dextrose 1,200 mls @ 50 mls/hr IV DAILY@1600 [facility] Fluconazole (Diflucan 200 Mg/D5w Premixed Ivpb -) 100 mls @ 100 mls/hr IVPB DAILY [facility] Last Admin: 08/14/16 09:10 Dose: 100 mls/hr Insulin Aspart (Novolog Vial Sliding Scale -) 1 vial SQ ACHS [facility] PRN Reason: Protocol Last Admin: 08/14/16 11:37 Dose: 2 units Miscellaneous (Duragesic Patch Waste) 1 each TD PRN PRN PRN Reason: PAIN A/P Perforated Duodenal Ulcer Peritonitis s/p ex-lap/omental patch repair 07/16 Enterocutaneous Fistula Acute Respiratory Failure Septic Shock Lactic Acidosis Leukopenia/Thrombocytopenia likely from sepsis DM DVT Gangrene - antibiotics per ID - taper Fio2 to keep Spo2 >90% - continue anticoagulation - minimize sedation to assess mental status - same TPN - spontaneous breathing trials as tolerated - DVT/GI prophylaxis - prognosis is poor, continue discussions regarding advanced directives and goals of care - recommend palliative due to failure to wean, anticipated amputations, poor quality of life
[2016-08-14] MEDS: FAMOTIDINE 20 MG/50 ML IVPB 50 ML IVPB SCH ×2 (12:09→22:59)
--- NOTE | 2016-08-14 12:51 | PN ---
Progress Note (short form) - Note Progress Note: Neurology History of Present Illness The patient is a 65-year-old woman, with a significant past medical history of hypertension, hypercholesterolemia, diabetes mellitus and GI disorders who presented to the emergency department via walk-in for further evaluation of abdominal pain for the past 3-4 days with unintentional 20 lb weight loss over the past three months. She required surgical intervention as documented by Dr. Louise. Thereafter, complicated course and patient in ICU, off sedation for several days. CT head without acute changes. Patient was not awakening initially and concern was hypoperfusion and possible anoxic brain injury. 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 Since, has awoken and is keeps eye open, occasional tracking and previously occasional spontaneous extremity movement but minimal now. Does have notable gangrene of fingers and toes. protecting airway and remains intubated and on vent, status post trach as she was not able to tolerate weaning. Toxic metabolic vs hypoperfusion and anoxic brain injury. Would benefit from MRI but not able to obtain due to vent. Has sepsis and getting ongoing treatment. Previously opening mouth and sticking out tongue to command with resident but no significant cognitive activity at this time. Remains awake, not performing complex commands. Has been downgraded from ICU to floor status. *Physical Exam Vital Signs Temperature 97.6 F 08/14/16 09:26 Pulse Rate 100 H 08/14/16 09:26 Respiratory Rate 22 08/14/16 10:15 Blood Pressure 152/90 08/14/16 09:26 O2 Sat by Pulse Oximetry (%) 95 08/13/16 18:00 GENERAL: Awake Frail appearing. HEENT: Normocephalic, atraumatic. +Temporal wasting. PERRL, EOMI. No conjunctival pallor. +Sclera are icteric. +Dry mucous membranes. Oropharynx is clear. NECK: Supple. Full ROM. No JVD. CARDIOVASCULAR: Tachycardic rate but regular rate and rhythm. No murmurs, rubs, or gallops. PULMONARY: +Diffuse dyspneic breath sounds that are equal bilaterally. No wheezing, crackles or rhonchi. ABDOMINAL: Firm but soft abdomen. Diffuse tenderness to palpation without rebound or guarding. Non-distended. No organomegaly. Normoactive bowel sounds. MUSCULOSKELETAL: Normal range of motion at all joints. No bony deformities or tenderness. No CVA tenderness. EXTREMITIES: No cyanosis. No clubbing. No edema. No calf tenderness. SKIN: Tenting of the skin. Jaundiced. No rashes. NEUROLOGICAL: Trached, ventilation, opens eyes and minimal movement of extremities but not cooperating with confrontation testing, withdraws to pain, not following complex commands, not tracking CBCD WBC 16.3 K/mm3 (4.0-10.0) H 08/14/16 07:00 RBC 2.61 M/mm3 (3.60-5.2) L 08/14/16 07:00 Hgb 7.4 GM/dL (10.7-15.3) L 08/14/16 07:00 Hct 22.7 % (32.4-45.2) L 08/14/16 07:00 MCV 87.1 fl (80-96) 08/14/16 07:00 MCHC 32.4 g/dl (32.0-36.0) 08/14/16 07:00 RDW 14.5 % (11.6-15.6) 08/14/16 07:00 Plt Count 586 K/MM3 (134-434) H 08/14/16 07:00 MPV 7.4 fl (7.5-11.1) L 08/14/16 07:00 CMP Sodium 137 mmol/L (136-145) 08/14/16 07:00 Potassium 4.3 mmol/L (3.5-5.1) 08/14/16 07:00 Chloride 100 mmol/L (98-107) 08/14/16 07:00 Carbon Dioxide 27 mmol/L (21-32) 08/14/16 07:00 Anion Gap 10 (8-16) 08/14/16 07:00 BUN 14 mg/dL (7-18) 08/14/16 07:00 Creatinine 0.3 mg/dL (0.55-1.02) L 08/14/16 07:00 Creat Clearance w eGFR > 60 (>60) 08/09/16 05:20 Calcium 7.8 mg/dL (8.5-10.1) L 08/14/16 07:00 Total Bilirubin 0.4 mg/dL (0.2-1.0) 08/09/16 05:20 AST 28 U/L (15-37) 08/09/16 05:20 ALT 17 U/L (12-78) 08/09/16 05:20 Alkaline Phosphatase 133 U/L (45-117) H 08/09/16 05:20 Total Protein 5.4 g/dl (6.4-8.2) L 08/09/16 05:20 Albumin 0.9 g/dl (3.4-5.0) L 08/09/16 05:20 EXAM: CT/HEAD CT WITHOUT CONTRAST IMPRESSION: Comparison study MRI of the brain February 23, 2015. Findings. Serial axial images of the brain were obtained from foramen magnum to the cranial vertex without intravenous contrast, with coronal, sagittal reconstruction images. No evidence of hydrocephalus, acute subarachnoid hemorrhage, acute intra-axial or extra-axial fluid collection consistent with subdural or epidural hematoma. No mass effect, midline shift, acute ischemic changes, herniation or edema is present. Normal yancey matter white matter differentiation. The cortical sulci, sylvian fissures, perimesencephalic cisterns are not effaced. The CSF spaces are age-appropriate. Supratentorial periventricular chronic white matter microangiopathic ischemic changes are noted. Examination of the bone windows show no fracture. Normal intracranial physiological calcifications are observed. The cranial vascular calcifications are noted. The visualized paranasal sinuses and mastoid air cells are clear. Medical Decision Making 65-year-old woman, with a significant past medical history of hypertension, hypercholesterolemia, diabetes mellitus and GI disorders who presented to the emergency department via walk-in for further evaluation of abdominal pain for the past 3-4 days with unintentional 20 lb weight loss over the past three months. She required surgical intervention as documented by Dr. Louise. Thereafter , complicated course and patient in ICU, off sedation for several days. CT head without acute changes. Patient was not awakening initially and concern was hypoperfusion and possible anoxic brain injury. Since, has awoken and is keeps eye open, some tracking previously and producing spontaneous extremity movement previously. Toxic metabolic vs hypoperfusion and anoxic brain injury. Would benefit from MRI but not able to obtain due to vent. Continue sepsis treatment Unable to be weaned off vent, status post trach Not currently on pressors, monitor blood pressures Continued medical management for multiple complications Mental status appears to be stable, monitor for increased ability to follow commands and perform higher order tasks Transferred to floor, encouraged continued close monitoring, patient with prolonged hospitalization Prognosis guarded
--- NOTE | 2016-08-14 14:02 | PN ---
Progress Note (short form) - Note Progress Note: Renal Follow up for ZAHIRA/Metabolic acidosis Pt seen and examined at the bedside awake on the trach FiO2 40% on TPN asked to follow up for management of TPN Vital Signs Temperature 97.6 F 08/14/16 09:26 Pulse Rate 100 H 08/14/16 09:26 Respiratory Rate 22 08/14/16 10:15 Blood Pressure 152/90 08/14/16 09:26 O2 Sat by Pulse Oximetry (%) 95 08/13/16 18:00 Intake & Output 08/11/16 08/12/16 08/13/16 08/14/16 23:59 23:59 23:59 23:59 Intake Total 2080 2263 2465 970 Output Total 1350 1400 1250 650 Balance 351 104 1343 320 Weight 154 lb 158 lb 159 lb 3 oz Gen: on Vent, NAD CVS: RRR, No M/R Lungs: Dec BS b/l lung andino Abd: Dressing on Abd, Ostomy in place, Ext: 2+ edema in LE CBC, BMP 08/14/16 07:00 08/14/16 07:00 Laboratory Tests 08/14/16 07:00 Calcium 7.8 L Phosphorus 3.1 Magnesium 1.8 Current Medications Acetaminophen (Ofirmev Injection -) 1,000 mg IVPB Q6H PRN PRN Reason: FEVER Chlorhexidine Gluconate (Peridex -) 15 ml MM BID [facility] Last Admin: 08/14/16 10:06 Dose: 15 ml Dextrose (D50w (Vial) -) 50 ml IVPUSH Q15M PRN PRN Reason: BLOOD SUGAR < 60 Enoxaparin Sodium (Lovenox -) 40 mg SQ BID [facility] Last Admin: 08/14/16 09:16 Dose: 40 mg Fentanyl (Duragesic 25mcg Patch -) 1 patch TD Q72H [facility] Stop: 08/19/16 11:59 Clindamycin Phosphate (Cleocin 300 Mg Premix Ivpb) 50 mls @ 100 mls/hr IVPB Q8H -IV [facility] Last Admin: 08/14/16 12:09 Dose: 100 mls/hr Fat Emulsion Intravenous (Intralipid -) 250 mls @ 20.833 mls/hr IV DAILY@2200 [facility] Last Admin: 08/13/16 23:07 Dose: 20.833 mls/hr Levofloxacin (Levaquin 750 Mg Premixed Ivpb -) 150 mls @ 100 mls/hr IVPB DAILY [facility] Last Admin: 08/14/16 10:08 Dose: 100 mls/hr Meropenem 1 gm/ Dextrose 100 mls @ 100 mls/hr IVPB Q8H-IV [facility] PRN Reason: Protocol Last Admin: 08/14/16 11:38 Dose: 100 mls/hr Famotidine/Sodium Chloride (Pepcid 20 Mg Premixed Ivpb -) 50 mls @ 100 mls/hr IVPB BID [facility] Last Admin: 08/14/16 12:09 Dose: 100 mls/hr Sodium Phosphate 15 mm/Magnesium Sulfate 2.95 gm/Insulin Human Regular 20 units / Thiamine HCl 100 mg/ Sodium Chloride 40 meq/ Potassium Chloride 20 meq/ Multivitamins /Minerals 10 ml/ Sterile Water / Amino Acids/ Dextrose 1,200 mls @ 50 mls/hr IV DAILY@1600 [facility] Fluconazole (Diflucan 200 Mg/D5w Premixed Ivpb -) 100 mls @ 100 mls/hr IVPB DAILY [facility] Last Admin: 08/14/16 09:10 Dose: 100 mls/hr Insulin Aspart (Novolog Vial Sliding Scale -) 1 vial SQ ACHS [facility] PRN Reason: Protocol Last Admin: 08/14/16 11:37 Dose: 2 units Miscellaneous (Duragesic Patch Waste) 1 each TD PRN PRN PRN Reason: PAIN A/P 65 year old woman with PMhx of hypertension, hypercholesterolemia, diabetes mellitus who presented with Abd pain and found to have perforated Abd viscus s/ p emergent Sx now with Septic Shock, ZAHIRA and Metabolic Acidosis. #Sepsis/Perforated Abd Viscus/Abscess Vent support Abx as per ID #NPO on TPN/Electrolyte abnormalities continue TPN Trend K/Mg/PHos daily #Edema from 3rd spacing continue TPN for nutirtional support may need diuretics if pt continues to be in positive balance prognosis remains guarded Cyril Tubbs DO
--- NOTE | 2016-08-14 15:03 | PN ---
Progress Note, Physician Chief Complaint: Awake on respirator History of Present Illness: S/P tracheostomy, on respirator - Current Medication List Current Medications: Active Medications Acetaminophen (Ofirmev Injection -) 1,000 mg IVPB Q6H PRN PRN Reason: FEVER Chlorhexidine Gluconate (Peridex -) 15 ml MM BID [facility] Last Admin: 08/14/16 10:06 Dose: 15 ml Dextrose (D50w (Vial) -) 50 ml IVPUSH Q15M PRN PRN Reason: BLOOD SUGAR < 60 Enoxaparin Sodium (Lovenox -) 40 mg SQ BID [facility] Last Admin: 08/14/16 09:16 Dose: 40 mg Fentanyl (Duragesic 25mcg Patch -) 1 patch TD Q72H [facility] Stop: 08/19/16 11:59 Clindamycin Phosphate (Cleocin 300 Mg Premix Ivpb) 50 mls @ 100 mls/hr IVPB Q8H -IV [facility] Last Admin: 08/14/16 12:09 Dose: 100 mls/hr Fat Emulsion Intravenous (Intralipid -) 250 mls @ 20.833 mls/hr IV DAILY@2200 [facility] Last Admin: 08/13/16 23:07 Dose: 20.833 mls/hr Levofloxacin (Levaquin 750 Mg Premixed Ivpb -) 150 mls @ 100 mls/hr IVPB DAILY [facility] Last Admin: 08/14/16 10:08 Dose: 100 mls/hr Meropenem 1 gm/ Dextrose 100 mls @ 100 mls/hr IVPB Q8H-IV [facility] PRN Reason: Protocol Last Admin: 08/14/16 11:38 Dose: 100 mls/hr Famotidine/Sodium Chloride (Pepcid 20 Mg Premixed Ivpb -) 50 mls @ 100 mls/hr IVPB BID [facility] Last Admin: 08/14/16 12:09 Dose: 100 mls/hr Sodium Phosphate 15 mm/Magnesium Sulfate 2.95 gm/Insulin Human Regular 20 units / Thiamine HCl 100 mg/ Sodium Chloride 40 meq/ Potassium Chloride 20 meq/ Multivitamins /Minerals 10 ml/ Sterile Water / Amino Acids/ Dextrose 1,200 mls @ 50 mls/hr IV DAILY@1600 [facility] Fluconazole (Diflucan 200 Mg/D5w Premixed Ivpb -) 100 mls @ 100 mls/hr IVPB DAILY [facility] Last Admin: 08/14/16 09:10 Dose: 100 mls/hr Insulin Aspart (Novolog Vial Sliding Scale -) 1 vial SQ ACHS [facility] PRN Reason: Protocol Last Admin: 08/14/16 11:37 Dose: 2 units Miscellaneous (Duragesic Patch Waste) 1 each TD PRN PRN PRN Reason: PAIN - Objective Vital Signs: Vital Signs Temperature 97.6 F 08/14/16 09:26 Pulse Rate 100 H 08/14/16 09:26 Respiratory Rate 21 08/14/16 14:20 Blood Pressure 152/90 08/14/16 09:26 O2 Sat by Pulse Oximetry (%) 95 08/13/16 18:00 Constitutional: Yes: Moderate Distress Eyes: Yes: Conjunctiva Clear HENT: Yes: Other (Tracheostomy present) Neck: Yes: Supple Cardiovascular: Yes: Tachycardia Respiratory: Yes: Mechanically Ventilated Gastrointestinal: Yes: Hypoactive Bowel Sounds ...Rectal Exam: Yes: Deferred Musculoskeletal: Yes: Muscle Weakness Edema: LLE: 1+, RLE: 1+ Wound/Incision: Yes: Clean/Dry Labs: CBC, BMP 08/14/16 07:00 08/14/16 07:00 INR, PTT INR 1.50 (0.82-1.09) H 08/09/16 11:30 Fibrinogen > 700.0 mg/dL (238-498) H 07/31/16 05:40 Assessment/Plan Continue same trt
--- NOTE | 2016-08-14 15:33 | PN ---
Progress Note, Physician History of Present Illness: transferred to [facility] on trach awake on ventilator - Current Medication List Current Medications: Active Medications Acetaminophen (Ofirmev Injection -) 1,000 mg IVPB Q6H PRN PRN Reason: FEVER Chlorhexidine Gluconate (Peridex -) 15 ml MM BID [facility] Last Admin: 08/14/16 10:06 Dose: 15 ml Dextrose (D50w (Vial) -) 50 ml IVPUSH Q15M PRN PRN Reason: BLOOD SUGAR < 60 Enoxaparin Sodium (Lovenox -) 40 mg SQ BID [facility] Last Admin: 08/14/16 09:16 Dose: 40 mg Fentanyl (Duragesic 25mcg Patch -) 1 patch TD Q72H [facility] Stop: 08/19/16 11:59 Clindamycin Phosphate (Cleocin 300 Mg Premix Ivpb) 50 mls @ 100 mls/hr IVPB Q8H -IV [facility] Last Admin: 08/14/16 12:09 Dose: 100 mls/hr Fat Emulsion Intravenous (Intralipid -) 250 mls @ 20.833 mls/hr IV DAILY@2200 [facility] Last Admin: 08/13/16 23:07 Dose: 20.833 mls/hr Levofloxacin (Levaquin 750 Mg Premixed Ivpb -) 150 mls @ 100 mls/hr IVPB DAILY [facility] Last Admin: 08/14/16 10:08 Dose: 100 mls/hr Meropenem 1 gm/ Dextrose 100 mls @ 100 mls/hr IVPB Q8H-IV [facility] PRN Reason: Protocol Last Admin: 08/14/16 11:38 Dose: 100 mls/hr Famotidine/Sodium Chloride (Pepcid 20 Mg Premixed Ivpb -) 50 mls @ 100 mls/hr IVPB BID [facility] Last Admin: 08/14/16 12:09 Dose: 100 mls/hr Fluconazole (Diflucan 200 Mg/D5w Premixed Ivpb -) 100 mls @ 100 mls/hr IVPB DAILY [facility] Last Admin: 08/14/16 09:10 Dose: 100 mls/hr Magnesium Sulfate 4 gm/Insulin Human Regular 20 units / Thiamine HCl 100 mg/ Sodium Chloride 30 meq/ Potassium Chloride 10 meq/ Multivitamins /Minerals 10 ml / Potassium Phosphate 40 mm/ Folic Acid 1 mg/ Sterile Water/ Amino Acids / Dextrose 1,500 mls @ 62.5 mls/hr IVPB DAILY@1600 [facility] Insulin Aspart (Novolog Vial Sliding Scale -) 1 vial SQ ACHS [facility] PRN Reason: Protocol Last Admin: 08/14/16 11:37 Dose: 2 units Miscellaneous (Duragesic Patch Waste) 1 each TD PRN PRN PRN Reason: PAIN - Objective Vital Signs: Vital Signs Temperature 97.6 F 08/14/16 09:26 Pulse Rate 100 H 08/14/16 09:26 Respiratory Rate 21 08/14/16 14:20 Blood Pressure 152/90 08/14/16 09:26 O2 Sat by Pulse Oximetry (%) 95 08/13/16 18:00 Constitutional: Yes: No Distress Cardiovascular: Yes: Regular Rate and Rhythm Respiratory: Yes: Mechanically Ventilated, Other (trach in place) Gastrointestinal: Yes: Soft, Other (fistula) Musculoskeletal: Yes: Other Extremities: Yes: Other (dry gangrene of the fingers) Neurological: Yes: Alert, Other Psychiatric: Yes: Other Labs: CBC, BMP 08/14/16 07:00 08/14/16 07:00 INR, PTT INR 1.50 (0.82-1.09) H 08/09/16 11:30 Fibrinogen > 700.0 mg/dL (238-498) H 07/31/16 05:40 Assessment/Plan Problem List - Problems (1) Abdominal pain Code(s): R10.9 - UNSPECIFIED ABDOMINAL PAIN Qualifiers: Qualified Code(s): R10.33 - Periumbilical pain (2) Perforated abdominal viscus Code(s): QLW6821 - (3) Perforated viscus Code(s): R19.8 - OTH SYMPTOMS AND SIGNS INVOLVING THE DGSTV SYS AND ABDOMEN (4) Hypertension Code(s): I10 - ESSENTIAL (PRIMARY) HYPERTENSION Qualifiers: Qualified Code(s): I10 - Essential (primary) hypertension lactic acidosis fevers generalized swelling gangrene of the tip of the fingers noted plan continue current mgmt supportive treatment continue abx nutrition rest as per primary team
[2016-08-14] MEDS ORDERED: SODIUM PHOSPHATE IV SCH (16:00)
[2016-08-14] MEDS ORDERED: [UNRECOGNIZED DRUG - OTHER] IV SCH (16:00)
[2016-08-14] MEDS ORDERED: INSULIN REGULAR IV SCH (16:00)
[2016-08-14] MEDS ORDERED: MAGNESIUM SULFATE IV SCH (16:00)
[2016-08-14] MEDS: MAGNESIUM SULFATE IVPB SCH (18:16)
[2016-08-14] MEDS: THIAMINE HCL IVPB SCH (18:16)
[2016-08-14] MEDS: INSULIN REGULAR IVPB SCH (18:16)
[2016-08-14] MEDS: [UNRECOGNIZED DRUG - OTHER] IVPB SCH (18:16)
[2016-08-14] MEDS: FAT EMULSIONS 250 ML IV SCH (23:00)
[2016-08-15] MEDS ORDERED: PT OWN MED DRAWER 7, Y5N ONE ×2 (00:55→21:23)
[2016-08-15] MEDS: CLINDAMYCIN 300 MG PREMIX IVPB 50 ML IVPB SCH ×3 (01:47→17:00)
[2016-08-15] MEDS: MEROPENEM 1 GM in DEXTROSE 5%-WATER - 100 ML IVPB SCH ×3 (01:47→17:00)
[2016-08-15] MEDS ORDERED: INSULIN (NOVOLOG) ASPART 100 UNITS/ML 10ML VIAL ONE (06:20)
[2016-08-15] MEDS: INSULIN SLIDING SCALE (NOVOLOG) 1 VIAL SQ SCH ×4 (07:01→22:49)
[2016-08-15 07:36] LABS: EOSINOPHIL 1.4 % (0-4.5); MCHC 33.6 g/dl (32.0-36.0); MEAN CELL VOLUME 86.4 fl (80-96); MEAN PLT VOLUME 7.5 fl (7.5-11.1); NEUTROPHILS 80.1 % (42.8-82.8); PLATELET COUNT 564 K/MM3 (134-434); RDW 13.9 % (11.6-15.6); WHITE BLOOD COUNT 15.9 K/mm3 (4.0-10.0)
[2016-08-15 07:57] LABS: ALK PHOS 180 U/L (45-117); ANION GAP 8 (8-16); BILIRUBIN,TOTAL 0.4 mg/dL (0.2-1.0); CALCIUM 8.1 mg/dL (8.5-10.1); CO2 27 mmol/L (21-32); CREATININE 0.3 mg/dL (0.55-1.02); GLUCOSE,RANDOM 183 mg/dL (74-106); MAGNESIUM 1.9 mg/dL (1.8-2.4); PHOSPHOROUS 3.6 mg/dL (2.5-4.9); SGOT/AST 25 U/L (15-37); SGPT/ALT 18 U/L (12-78); TOT PROT 5.9 g/dl (6.4-8.2)
[2016-08-15] MEDS: LEVOFLOXACIN 750 MG IVPB 150 ML IVPB SCH (09:07)
--- NOTE | 2016-08-15 09:53 | PN ---
Progress Note, Physician Chief Complaint: No new complaints History of Present Illness: On respirator - Current Medication List Current Medications: Active Medications Acetaminophen (Ofirmev Injection -) 1,000 mg IVPB Q6H PRN PRN Reason: FEVER Chlorhexidine Gluconate (Peridex -) 15 ml MM BID [facility] Last Admin: 08/14/16 22:59 Dose: 15 ml Dextrose (D50w (Vial) -) 50 ml IVPUSH Q15M PRN PRN Reason: BLOOD SUGAR < 60 Enoxaparin Sodium (Lovenox -) 40 mg SQ BID [facility] Last Admin: 08/14/16 22:59 Dose: 40 mg Fentanyl (Duragesic 25mcg Patch -) 1 patch TD Q72H [facility] Stop: 08/19/16 11:59 Clindamycin Phosphate (Cleocin 300 Mg Premix Ivpb) 50 mls @ 100 mls/hr IVPB Q8H -IV [facility] Last Admin: 08/15/16 01:47 Dose: 100 mls/hr Fat Emulsion Intravenous (Intralipid -) 250 mls @ 20.833 mls/hr IV DAILY@2200 [facility] Last Admin: 08/14/16 23:00 Dose: 20.833 mls/hr Levofloxacin (Levaquin 750 Mg Premixed Ivpb -) 150 mls @ 100 mls/hr IVPB DAILY [facility] Last Admin: 08/15/16 09:07 Dose: 100 mls/hr Meropenem 1 gm/ Dextrose 100 mls @ 100 mls/hr IVPB Q8H-IV [facility] PRN Reason: Protocol Last Admin: 08/15/16 01:47 Dose: 100 mls/hr Famotidine/Sodium Chloride (Pepcid 20 Mg Premixed Ivpb -) 50 mls @ 100 mls/hr IVPB BID [facility] Last Admin: 08/14/16 22:59 Dose: 100 mls/hr Fluconazole (Diflucan 200 Mg/D5w Premixed Ivpb -) 100 mls @ 100 mls/hr IVPB DAILY [facility] Last Admin: 08/14/16 09:10 Dose: 100 mls/hr Magnesium Sulfate 4 gm/Insulin Human Regular 20 units / Thiamine HCl 100 mg/ Sodium Chloride 30 meq/ Potassium Chloride 10 meq/ Multivitamins /Minerals 10 ml / Potassium Phosphate 40 mm/ Folic Acid 1 mg/ Sterile Water/ Amino Acids / Dextrose 1,500 mls @ 62.5 mls/hr IVPB DAILY@1600 [facility] Last Admin: 08/14/16 18:16 Dose: 62.5 mls/hr Insulin Aspart (Novolog Vial Sliding Scale -) 1 vial SQ ACHS [facility] PRN Reason: Protocol Last Admin: 08/15/16 07:01 Dose: Not Given Miscellaneous (Duragesic Patch Waste) 1 each TD PRN PRN PRN Reason: PAIN - Objective Vital Signs: Vital Signs Temperature 100.0 F H 08/15/16 02:00 Pulse Rate 103 H 08/15/16 02:00 Respiratory Rate 19 08/15/16 07:08 Blood Pressure 140/64 08/15/16 02:00 O2 Sat by Pulse Oximetry (%) 96 08/14/16 09:00 Constitutional: Yes: Mild Distress Eyes: Yes: WNL HENT: Yes: WNL Neck: Yes: WNL Cardiovascular: Yes: Pulse Irregular Respiratory: Yes: Mechanically Ventilated Gastrointestinal: Yes: Normal Bowel Sounds ...Rectal Exam: Yes: Deferred Genitourinary: Yes: Bacon Present Musculoskeletal: Yes: WNL Edema: No Integumentary: Yes: WNL Neurological: Yes: Lethargy Psychiatric: Yes: Alert Labs: CBC, BMP 08/15/16 06:30 08/15/16 06:30 INR, PTT INR 1.50 (0.82-1.09) H 08/09/16 11:30 Fibrinogen > 700.0 mg/dL (238-498) H 07/31/16 05:40 Assessment/Plan Respiratory settings change to SIMv
--- NOTE | 2016-08-15 09:59 | PN ---
Progress Note (short form) - Note Progress Note: Neurology History of Present Illness The patient is a 65-year-old woman, with a significant past medical history of hypertension, hypercholesterolemia, diabetes mellitus and GI disorders who presented to the emergency department via walk-in for further evaluation of abdominal pain for the past 3-4 days with unintentional 20 lb weight loss over the past three months. She required surgical intervention as documented by Dr. Louise. Thereafter, complicated course and patient in ICU, off sedation for several days. CT head without acute changes. Patient was not awakening initially and concern was hypoperfusion and possible anoxic brain injury. 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 Since, has awoken and is keeps eye open, occasional tracking and previously occasional spontaneous extremity movement but minimal now. Does have notable gangrene of fingers and toes. protecting airway and remains intubated and on vent, status post trach as she was not able to tolerate weaning. Toxic metabolic vs hypoperfusion and anoxic brain injury. Would benefit from MRI but not able to obtain due to vent. Has sepsis and getting ongoing treatment. Previously opening mouth and sticking out tongue to command with resident but no significant cognitive activity at this time. Remains awake, not performing complex commands. Has been downgraded from ICU to floor status and minimal activity. *Physical Exam Vital Signs Temperature 100.0 F H 08/15/16 02:00 Pulse Rate 103 H 08/15/16 02:00 Respiratory Rate 19 08/15/16 07:08 Blood Pressure 140/64 08/15/16 02:00 O2 Sat by Pulse Oximetry (%) 96 08/14/16 09:00 GENERAL: Awake Frail appearing. HEENT: Normocephalic, atraumatic. +Temporal wasting. PERRL, EOMI. No conjunctival pallor. +Sclera are icteric. +Dry mucous membranes. Oropharynx is clear. NECK: Supple. Full ROM. No JVD. CARDIOVASCULAR: Tachycardic rate but regular rate and rhythm. No murmurs, rubs, or gallops. PULMONARY: +Diffuse dyspneic breath sounds that are equal bilaterally. No wheezing, crackles or rhonchi. ABDOMINAL: Firm but soft abdomen. Diffuse tenderness to palpation without rebound or guarding. Non-distended. No organomegaly. Normoactive bowel sounds. MUSCULOSKELETAL: Normal range of motion at all joints. No bony deformities or tenderness. No CVA tenderness. EXTREMITIES: No cyanosis. No clubbing. No edema. No calf tenderness. SKIN: Tenting of the skin. Jaundiced. No rashes. NEUROLOGICAL: Trached, ventilation, opens eyes and minimal movement of extremities but not cooperating with confrontation testing, withdraws to pain, not following complex commands, not tracking CBCD WBC 15.9 K/mm3 (4.0-10.0) H 08/15/16 06:30 RBC 2.57 M/mm3 (3.60-5.2) L 08/15/16 06:30 Hgb 7.4 GM/dL (10.7-15.3) L 08/15/16 06:30 Hct 22.2 % (32.4-45.2) L 08/15/16 06:30 MCV 86.4 fl (80-96) 08/15/16 06:30 MCHC 33.6 g/dl (32.0-36.0) 08/15/16 06:30 RDW 13.9 % (11.6-15.6) 08/15/16 06:30 Plt Count 564 K/MM3 (134-434) H 08/15/16 06:30 MPV 7.5 fl (7.5-11.1) 08/15/16 06:30 CMP Sodium 134 mmol/L (136-145) L 08/15/16 06:30 Potassium 4.6 mmol/L (3.5-5.1) 08/15/16 06:30 Chloride 99 mmol/L (98-107) 08/15/16 06:30 Carbon Dioxide 27 mmol/L (21-32) 08/15/16 06:30 Anion Gap 8 (8-16) 08/15/16 06:30 BUN 15 mg/dL (7-18) 08/15/16 06:30 Creatinine 0.3 mg/dL (0.55-1.02) L 08/15/16 06:30 Creat Clearance w eGFR > 60 (>60) 08/15/16 06:30 Calcium 8.1 mg/dL (8.5-10.1) L 08/15/16 06:30 Total Bilirubin 0.4 mg/dL (0.2-1.0) 08/15/16 06:30 AST 25 U/L (15-37) 08/15/16 06:30 ALT 18 U/L (12-78) 08/15/16 06:30 Alkaline Phosphatase 180 U/L (45-117) H D 08/15/16 06:30 Total Protein 5.9 g/dl (6.4-8.2) L 08/15/16 06:30 Albumin 1.0 g/dl (3.4-5.0) L 08/15/16 06:30 EXAM: CT/HEAD CT WITHOUT CONTRAST IMPRESSION: Comparison study MRI of the brain February 23, 2015. Findings. Serial axial images of the brain were obtained from foramen magnum to the cranial vertex without intravenous contrast, with coronal, sagittal reconstruction images. No evidence of hydrocephalus, acute subarachnoid hemorrhage, acute intra-axial or extra-axial fluid collection consistent with subdural or epidural hematoma. No mass effect, midline shift, acute ischemic changes, herniation or edema is present. Normal yacney matter white matter differentiation. The cortical sulci, sylvian fissures, perimesencephalic cisterns are not effaced. The CSF spaces are age-appropriate. Supratentorial periventricular chronic white matter microangiopathic ischemic changes are noted. Examination of the bone windows show no fracture. Normal intracranial physiological calcifications are observed. The cranial vascular calcifications are noted. The visualized paranasal sinuses and mastoid air cells are clear. Medical Decision Making 65-year-old woman, with a significant past medical history of hypertension, hypercholesterolemia, diabetes mellitus and GI disorders who presented to the emergency department via walk-in for further evaluation of abdominal pain for the past 3-4 days with unintentional 20 lb weight loss over the past three months. She required surgical intervention as documented by Dr. Louise. Thereafter , complicated course and patient in ICU, off sedation for several days. CT head without acute changes. Patient was not awakening initially and concern was hypoperfusion and possible anoxic brain injury. Since, has awoken and is keeps eye open, some tracking previously and producing spontaneous extremity movement previously. Toxic metabolic vs hypoperfusion and anoxic brain injury. Would benefit from MRI but not able to obtain due to vent. Continue sepsis treatment Unable to be weaned off vent, status post trach Not currently on pressors, monitor blood pressures Continued medical management for multiple complications Mental status appears to be stable, monitor for increased ability to follow commands and perform higher order tasks Transferred to floor, encouraged continued close monitoring, patient with prolonged hospitalization Prognosis guarded Dr. Lieberman covering this weekend if needed
[2016-08-15] MEDS: FLUCONAZOLE 200 MG/D5W 100 ML IVPB SCH (10:03)
[2016-08-15] MEDS: FAMOTIDINE 20 MG/50 ML IVPB 50 ML IVPB SCH ×2 (10:03→22:42)
[2016-08-15] MEDS: ENOXAPARIN NA (PORCINE) 40 MG/0.4 ML DISP.SYRIN SQ SCH ×2 (10:03→22:42)
[2016-08-15] MEDS: CHLORHEXIDINE GLUCONATE 0.12% 15ML CUP MM SCH ×2 (10:04→22:42)
[2016-08-15] MEDS: fentaNYL 25mcg/hr PATCH.TD72 TD SCH (11:31)
--- NOTE | 2016-08-15 12:10 | PN ---
Progress Note (short form) - Note Progress Note: PULMONARY CHART REVIEWED NO CHANGE IN OVERALL EXAM A/P Perforated Duodenal Ulcer Peritonitis s/p ex-lap/omental patch repair 07/16 Enterocutaneous Fistula Acute Respiratory Failure Septic Shock Lactic Acidosis Leukopenia/Thrombocytopenia likely from sepsis DM DVT Gangrene - antibiotics per ID - taper Fio2 to keep Spo2 >90% - continue anticoagulation - same TPN - would continue same vent settings - DVT/GI prophylaxis - prognosis is poor, continue discussions regarding advanced directives and goals of care - recommend palliative due to failure to wean, anticipated amputations, poor quality of life Rhonda STARR MD
--- NOTE | 2016-08-15 13:15 | PN ---
Progress Note (short form) - Note Progress Note: Renal Follow up for ZAHIRA/Metabolic acidosis Pt seen and examined at the bedside awake and alert appers to have some discomfort, Fentalyl patch just changed on FiO2 40% no fevers good urine output Vital Signs Temperature 98.4 F 08/15/16 10:00 Pulse Rate 105 H 08/15/16 10:00 Respiratory Rate 21 08/15/16 10:33 Blood Pressure 144/69 08/15/16 10:00 O2 Sat by Pulse Oximetry (%) 96 08/14/16 09:00 Intake & Output 08/12/16 08/13/16 08/14/16 08/15/16 23:59 23:59 23:59 23:59 Intake Total 2263 2465 2170 1012.5 Output Total 1400 1250 1250 1225 Balance 863 1215 920 -212.5 Weight 158 lb 159 lb 3 oz Gen: on Vent, NAD CVS: RRR, No M/R Lungs: Dec BS b/l lung andino Abd: Dressing on Abd, Ostomy in place, Ext: 2+ edema in LE CBC, BMP 08/15/16 06:30 08/15/16 06:30 Current Medications Acetaminophen (Ofirmev Injection -) 1,000 mg IVPB Q6H PRN PRN Reason: FEVER Chlorhexidine Gluconate (Peridex -) 15 ml MM BID [facility] Last Admin: 08/15/16 10:04 Dose: 15 ml Dextrose (D50w (Vial) -) 50 ml IVPUSH Q15M PRN PRN Reason: BLOOD SUGAR < 60 Enoxaparin Sodium (Lovenox -) 40 mg SQ BID [facility] Last Admin: 08/15/16 10:03 Dose: 40 mg Fentanyl (Duragesic 25mcg Patch -) 1 patch TD Q72H [facility] Stop: 08/19/16 11:59 Last Admin: 08/15/16 11:31 Dose: 1 patch Clindamycin Phosphate (Cleocin 300 Mg Premix Ivpb) 50 mls @ 100 mls/hr IVPB Q8H -IV [facility] Last Admin: 08/15/16 10:04 Dose: 100 mls/hr Fat Emulsion Intravenous (Intralipid -) 250 mls @ 20.833 mls/hr IV DAILY@2200 [facility] Last Admin: 08/14/16 23:00 Dose: 20.833 mls/hr Levofloxacin (Levaquin 750 Mg Premixed Ivpb -) 150 mls @ 100 mls/hr IVPB DAILY [facility] Last Admin: 08/15/16 09:07 Dose: 100 mls/hr Meropenem 1 gm/ Dextrose 100 mls @ 100 mls/hr IVPB Q8H-IV [facility] PRN Reason: Protocol Last Admin: 08/15/16 10:02 Dose: 100 mls/hr Famotidine/Sodium Chloride (Pepcid 20 Mg Premixed Ivpb -) 50 mls @ 100 mls/hr IVPB BID [facility] Last Admin: 08/15/16 10:03 Dose: 100 mls/hr Fluconazole (Diflucan 200 Mg/D5w Premixed Ivpb -) 100 mls @ 100 mls/hr IVPB DAILY [facility] Last Admin: 08/15/16 10:03 Dose: 100 mls/hr Magnesium Sulfate 4 gm/Insulin Human Regular 20 units / Thiamine HCl 100 mg/ Sodium Chloride 30 meq/ Potassium Chloride 10 meq/ Multivitamins /Minerals 10 ml / Potassium Phosphate 40 mm/ Folic Acid 1 mg/ Sterile Water/ Amino Acids / Dextrose 1,500 mls @ 62.5 mls/hr IVPB DAILY@1600 [facility] Last Admin: 08/14/16 18:16 Dose: 62.5 mls/hr Insulin Aspart (Novolog Vial Sliding Scale -) 1 vial SQ ACHS [facility] PRN Reason: Protocol Last Admin: 08/15/16 11:25 Dose: 4 units Miscellaneous (Duragesic Patch Waste) 1 each TD PRN PRN PRN Reason: PAIN A/P 65 year old woman with PMhx of hypertension, hypercholesterolemia, diabetes mellitus who presented with Abd pain and found to have perforated Abd viscus s/ p emergent Sx now with Septic Shock, ZAHIRA and Metabolic Acidosis. #Sepsis/Perforated Abd Viscus/Abscess hemodynamically stable surgical follow up vent support #NPO on TPN/Electrolyte abnormalities continue TPN Trend K/Mg/PHos daily #Edema from 3rd spacing continue TPN for nutritional support start Lasix 20mg daily, trend urine output, will try to achieve negative balance prognosis remains guarded Cyril Tubbs DO
[2016-08-15] MEDS ORDERED: FUROSEMIDE 40 MG/5 ML UNIT-DOSE CUP NGT SCH (14:00)
[2016-08-15] MEDS: FUROSEMIDE 40 MG/4 ML INJECTABLE VIAL IVPB SCH (15:44)
[2016-08-15] MEDS: ACETAMINOPHEN 1000 MG/100 ML VIAL (NON FORMULARY) IVPB PRN (15:49)
[2016-08-15] MEDS: MAGNESIUM SULFATE IVPB SCH (17:01)
[2016-08-15] MEDS: THIAMINE HCL IVPB SCH (17:01)
[2016-08-15] MEDS: INSULIN REGULAR IVPB SCH (17:01)
[2016-08-15] MEDS: [UNRECOGNIZED DRUG - OTHER] IVPB SCH (17:01)
[2016-08-15] MEDS: FAT EMULSIONS 250 ML IV SCH (22:39)
[2016-08-16] MEDS: CLINDAMYCIN 300 MG PREMIX IVPB 50 ML IVPB SCH ×3 (01:20→17:37)
[2016-08-16] MEDS: MEROPENEM 1 GM in DEXTROSE 5%-WATER - 100 ML IVPB SCH ×3 (01:20→17:37)
[2016-08-16] MEDS: INSULIN SLIDING SCALE (NOVOLOG) 1 VIAL SQ SCH ×4 (06:44→23:11)
--- NOTE | 2016-08-16 09:17 | PN ---
Progress Note, Physician Chief Complaint: Not responding to verbal commands History of Present Illness: On respirator NGT blocked ,will DC - Current Medication List Current Medications: Active Medications Acetaminophen (Ofirmev Injection -) 1,000 mg IVPB Q6H PRN PRN Reason: FEVER Last Admin: 08/15/16 15:49 Dose: 1,000 mg Chlorhexidine Gluconate (Peridex -) 15 ml MM BID [facility] Last Admin: 08/15/16 22:42 Dose: 15 ml Dextrose (D50w (Vial) -) 50 ml IVPUSH Q15M PRN PRN Reason: BLOOD SUGAR < 60 Enoxaparin Sodium (Lovenox -) 40 mg SQ BID [facility] Last Admin: 08/15/16 22:42 Dose: 40 mg Fentanyl (Duragesic 25mcg Patch -) 1 patch TD Q72H [facility] Stop: 08/19/16 11:59 Last Admin: 08/15/16 11:31 Dose: 1 patch Furosemide (Lasix Injection -) 20 mg IVPB DAILY [facility] Last Admin: 08/15/16 15:44 Dose: 20 mg Clindamycin Phosphate (Cleocin 300 Mg Premix Ivpb) 50 mls @ 100 mls/hr IVPB Q8H -IV [facility] Last Admin: 08/16/16 01:20 Dose: 100 mls/hr Fat Emulsion Intravenous (Intralipid -) 250 mls @ 20.833 mls/hr IV DAILY@2200 [facility] Last Admin: 08/15/16 22:39 Dose: 20.833 mls/hr Levofloxacin (Levaquin 750 Mg Premixed Ivpb -) 150 mls @ 100 mls/hr IVPB DAILY [facility] Last Admin: 08/15/16 09:07 Dose: 100 mls/hr Meropenem 1 gm/ Dextrose 100 mls @ 100 mls/hr IVPB Q8H-IV [facility] PRN Reason: Protocol Last Admin: 08/16/16 01:20 Dose: 100 mls/hr Famotidine/Sodium Chloride (Pepcid 20 Mg Premixed Ivpb -) 50 mls @ 100 mls/hr IVPB BID [facility] Last Admin: 08/15/16 22:42 Dose: 100 mls/hr Fluconazole (Diflucan 200 Mg/D5w Premixed Ivpb -) 100 mls @ 100 mls/hr IVPB DAILY [facility] Last Admin: 08/15/16 10:03 Dose: 100 mls/hr Magnesium Sulfate 4 gm/Insulin Human Regular 20 units / Thiamine HCl 100 mg/ Sodium Chloride 30 meq/ Potassium Chloride 10 meq/ Multivitamins /Minerals 10 ml / Potassium Phosphate 40 mm/ Folic Acid 1 mg/ Sterile Water/ Amino Acids / Dextrose 1,500 mls @ 62.5 mls/hr IVPB DAILY@1600 [facility] Last Admin: 08/15/16 17:01 Dose: 62.5 mls/hr Insulin Aspart (Novolog Vial Sliding Scale -) 1 vial SQ ACHS [facility] PRN Reason: Protocol Last Admin: 08/16/16 06:44 Dose: 2 units Miscellaneous (Duragesic Patch Waste) 1 each TD PRN PRN PRN Reason: PAIN - Objective Vital Signs: Vital Signs Temperature 100.8 F H 08/16/16 06:00 Pulse Rate 107 H 08/16/16 06:00 Respiratory Rate 20 08/16/16 06:30 Blood Pressure 128/52 08/16/16 06:00 O2 Sat by Pulse Oximetry (%) 95 08/15/16 09:00 Constitutional: Yes: Mild Distress Eyes: Yes: WNL HENT: Yes: WNL Neck: Yes: WNL Respiratory: Yes: Mechanically Ventilated Gastrointestinal: Yes: Hypoactive Bowel Sounds ...Rectal Exam: Yes: Deferred Genitourinary: Yes: Bacon Present Neurological: Yes: Other (comatosed) Labs: CBC, BMP 08/15/16 06:30 08/15/16 06:30 INR, PTT INR 1.50 (0.82-1.09) H 08/09/16 11:30 Fibrinogen > 700.0 mg/dL (238-498) H 07/31/16 05:40
[2016-08-16] MEDS ORDERED: PT OWN MED DRAWER 7, Y5N ONE ×3 (10:19→22:48)
[2016-08-16] MEDS: ACETAMINOPHEN 1000 MG/100 ML VIAL (NON FORMULARY) IVPB PRN (10:28)
[2016-08-16] MEDS: FUROSEMIDE 40 MG/4 ML INJECTABLE VIAL IVPB SCH (10:28)
[2016-08-16] MEDS: FAMOTIDINE 20 MG/50 ML IVPB 50 ML IVPB SCH ×2 (10:29→22:56)
[2016-08-16] MEDS: CHLORHEXIDINE GLUCONATE 0.12% 15ML CUP MM SCH ×2 (10:29→22:57)
[2016-08-16] MEDS: FLUCONAZOLE 200 MG/D5W 100 ML IVPB SCH (10:30)
[2016-08-16] MEDS: ENOXAPARIN NA (PORCINE) 40 MG/0.4 ML DISP.SYRIN SQ SCH ×2 (11:20→22:56)
[2016-08-16] MEDS: LEVOFLOXACIN 750 MG IVPB 150 ML IVPB SCH (11:27)
--- NOTE | 2016-08-16 11:43 | PN ---
Progress Note, Physician Chief Complaint: The patient iseen in her bed. Poorly responsive, vent supported through Tracheostomy, TPN infusing. Maintains good urine output. - Current Medication List Current Medications: Active Medications Acetaminophen (Ofirmev Injection -) 1,000 mg IVPB Q6H PRN PRN Reason: FEVER Last Admin: 08/16/16 10:28 Dose: 1,000 mg Chlorhexidine Gluconate (Peridex -) 15 ml MM BID [facility] Last Admin: 08/16/16 10:29 Dose: 15 ml Dextrose (D50w (Vial) -) 50 ml IVPUSH Q15M PRN PRN Reason: BLOOD SUGAR < 60 Enoxaparin Sodium (Lovenox -) 40 mg SQ BID [facility] Last Admin: 08/16/16 11:20 Dose: 40 mg Fentanyl (Duragesic 25mcg Patch -) 1 patch TD Q72H [facility] Stop: 08/19/16 11:59 Last Admin: 08/15/16 11:31 Dose: 1 patch Furosemide (Lasix Injection -) 20 mg IVPB DAILY [facility] Last Admin: 08/16/16 10:28 Dose: 20 mg Clindamycin Phosphate (Cleocin 300 Mg Premix Ivpb) 50 mls @ 100 mls/hr IVPB Q8H -IV [facility] Last Admin: 08/16/16 10:59 Dose: 100 mls/hr Fat Emulsion Intravenous (Intralipid -) 250 mls @ 20.833 mls/hr IV DAILY@2200 [facility] Last Admin: 08/15/16 22:39 Dose: 20.833 mls/hr Levofloxacin (Levaquin 750 Mg Premixed Ivpb -) 150 mls @ 100 mls/hr IVPB DAILY [facility] Last Admin: 08/16/16 11:27 Dose: 100 mls/hr Meropenem 1 gm/ Dextrose 100 mls @ 100 mls/hr IVPB Q8H-IV [facility] PRN Reason: Protocol Last Admin: 08/16/16 11:27 Dose: 100 mls/hr Famotidine/Sodium Chloride (Pepcid 20 Mg Premixed Ivpb -) 50 mls @ 100 mls/hr IVPB BID [facility] Last Admin: 08/16/16 10:29 Dose: 100 mls/hr Fluconazole (Diflucan 200 Mg/D5w Premixed Ivpb -) 100 mls @ 100 mls/hr IVPB DAILY [facility] Last Admin: 08/16/16 10:30 Dose: 100 mls/hr Magnesium Sulfate 4 gm/Insulin Human Regular 20 units / Thiamine HCl 100 mg/ Sodium Chloride 30 meq/ Potassium Chloride 10 meq/ Multivitamins /Minerals 10 ml / Potassium Phosphate 40 mm/ Folic Acid 1 mg/ Sterile Water/ Amino Acids / Dextrose 1,500 mls @ 62.5 mls/hr IVPB DAILY@1600 [facility] Last Admin: 08/15/16 17:01 Dose: 62.5 mls/hr Insulin Aspart (Novolog Vial Sliding Scale -) 1 vial SQ ACHS [facility] PRN Reason: Protocol Last Admin: 08/16/16 11:23 Dose: 4 units Miscellaneous (Duragesic Patch Waste) 1 each TD PRN PRN PRN Reason: PAIN - Objective Vital Signs: Vital Signs Temperature 102.4 F H 08/16/16 09:26 Pulse Rate 110 H 08/16/16 09:26 Respiratory Rate 25 H 08/16/16 10:30 Blood Pressure 141/71 08/16/16 09:26 O2 Sat by Pulse Oximetry (%) 95 08/15/16 09:00 Constitutional: Yes: Mild Distress Neck: Yes: Other (Tracheostomy) Cardiovascular: Yes: S1, S2 Respiratory: Yes: Mechanically Ventilated Gastrointestinal: Yes: Hypoactive Bowel Sounds Neurological: Yes: Unresponsive Labs: CBC, BMP 08/15/16 06:30 08/15/16 06:30 INR, PTT INR 1.50 (0.82-1.09) H 08/09/16 11:30 Fibrinogen > 700.0 mg/dL (238-498) H 07/31/16 05:40 Problem List - Problems (1) Perforated abdominal viscus Code(s): [id number] - (2) ZAHIRA (acute kidney injury) Code(s): N17.9 - ACUTE KIDNEY FAILURE, UNSPECIFIED (3) Hypomagnesemia Code(s): E83.42 - HYPOMAGNESEMIA (4) Metabolic acidemia Code(s): E87.2 - ACIDOSIS (5) Metabolic acidosis Code(s): E87.2 - ACIDOSIS Assessment/Plan 65 y/o female with recent ZAHIRA. real functions improved since. S/p Perforated viscus, s/p colectome. Receiving TPN for nutritional supplements. Continues to be febrile. ID java developer consultant following. No specific changes in treatments suggested at this point. Katty Singer MD
--- NOTE | 2016-08-16 12:27 | PN ---
Progress Note (short form) - Note Progress Note: PULMONARY Vented on volume assist control. Remains poorly responsive, febrile. Last Vital Signs Temp Pulse Resp BP Pulse Ox 102.4 F H 110 H 25 H 141/71 95 08/16/16 09:26 08/16/16 09:26 08/16/16 10:30 08/16/16 09:26 08/15/16 09:00 Gen: vented, poorly responsive Heart: tachycardic, regular Lung: scattered rhonchi Abd: soft, nontender Ext: multiple ulcers, dry gangrene of bilateral feet, fingers CBC, BMP 08/15/16 06:30 08/15/16 06:30 Active Medications Acetaminophen (Ofirmev Injection -) 1,000 mg IVPB Q6H PRN PRN Reason: FEVER Last Admin: 08/16/16 10:28 Dose: 1,000 mg Chlorhexidine Gluconate (Peridex -) 15 ml MM BID [facility] Last Admin: 08/16/16 10:29 Dose: 15 ml Dextrose (D50w (Vial) -) 50 ml IVPUSH Q15M PRN PRN Reason: BLOOD SUGAR < 60 Enoxaparin Sodium (Lovenox -) 40 mg SQ BID [facility] Last Admin: 08/16/16 11:20 Dose: 40 mg Fentanyl (Duragesic 25mcg Patch -) 1 patch TD Q72H [facility] Stop: 08/19/16 11:59 Last Admin: 08/15/16 11:31 Dose: 1 patch Furosemide (Lasix Injection -) 20 mg IVPB DAILY [facility] Last Admin: 08/16/16 10:28 Dose: 20 mg Clindamycin Phosphate (Cleocin 300 Mg Premix Ivpb) 50 mls @ 100 mls/hr IVPB Q8H -IV [facility] Last Admin: 08/16/16 10:59 Dose: 100 mls/hr Fat Emulsion Intravenous (Intralipid -) 250 mls @ 20.833 mls/hr IV DAILY@2200 [facility] Last Admin: 08/15/16 22:39 Dose: 20.833 mls/hr Levofloxacin (Levaquin 750 Mg Premixed Ivpb -) 150 mls @ 100 mls/hr IVPB DAILY [facility] Last Admin: 08/16/16 11:27 Dose: 100 mls/hr Meropenem 1 gm/ Dextrose 100 mls @ 100 mls/hr IVPB Q8H-IV [facility] PRN Reason: Protocol Last Admin: 08/16/16 11:27 Dose: 100 mls/hr Famotidine/Sodium Chloride (Pepcid 20 Mg Premixed Ivpb -) 50 mls @ 100 mls/hr IVPB BID [facility] Last Admin: 08/16/16 10:29 Dose: 100 mls/hr Fluconazole (Diflucan 200 Mg/D5w Premixed Ivpb -) 100 mls @ 100 mls/hr IVPB DAILY [facility] Last Admin: 08/16/16 10:30 Dose: 100 mls/hr Magnesium Sulfate 4 gm/Insulin Human Regular 20 units / Thiamine HCl 100 mg/ Sodium Chloride 30 meq/ Potassium Chloride 10 meq/ Multivitamins /Minerals 10 ml / Potassium Phosphate 40 mm/ Folic Acid 1 mg/ Sterile Water/ Amino Acids / Dextrose 1,500 mls @ 62.5 mls/hr IVPB DAILY@1600 [facility] Last Admin: 08/15/16 17:01 Dose: 62.5 mls/hr Insulin Aspart (Novolog Vial Sliding Scale -) 1 vial SQ ACHS [facility] PRN Reason: Protocol Last Admin: 08/16/16 11:23 Dose: 4 units Miscellaneous (Duragesic Patch Waste) 1 each TD PRN PRN PRN Reason: PAIN A/P Perforated Duodenal Ulcer Peritonitis s/p ex-lap/omental patch repair 5/10 Enterocutaneous Fistula Acute Respiratory Failure Septic Shock Lactic Acidosis Leukopenia/Thrombocytopenia likely from sepsis DM DVT Gangrene - antibiotics per ID - taper Fio2 to keep Spo2 >90% - continue anticoagulation - minimize sedation to assess mental status - TPN per renal - spontaneous breathing trials as tolerated - DVT/GI prophylaxis - prognosis is poor, continue discussions regarding advanced directives and goals of care - recommend palliative due to failure to wean, anticipated amputations, poor quality of life
--- NOTE | 2016-08-16 15:27 | PN ---
Progress Note, Physician History of Present Illness: patient improving stable on vent no events overnight trach and vent - Current Medication List Current Medications: Active Medications Acetaminophen (Ofirmev Injection -) 1,000 mg IVPB Q6H PRN PRN Reason: FEVER Last Admin: 08/16/16 10:28 Dose: 1,000 mg Chlorhexidine Gluconate (Peridex -) 15 ml MM BID [facility] Last Admin: 08/16/16 10:29 Dose: 15 ml Dextrose (D50w (Vial) -) 50 ml IVPUSH Q15M PRN PRN Reason: BLOOD SUGAR < 60 Enoxaparin Sodium (Lovenox -) 40 mg SQ BID [facility] Last Admin: 08/16/16 11:20 Dose: 40 mg Fentanyl (Duragesic 25mcg Patch -) 1 patch TD Q72H [facility] Stop: 08/19/16 11:59 Last Admin: 08/15/16 11:31 Dose: 1 patch Furosemide (Lasix Injection -) 20 mg IVPB DAILY [facility] Last Admin: 08/16/16 10:28 Dose: 20 mg Clindamycin Phosphate (Cleocin 300 Mg Premix Ivpb) 50 mls @ 100 mls/hr IVPB Q8H -IV [facility] Last Admin: 08/16/16 10:59 Dose: 100 mls/hr Fat Emulsion Intravenous (Intralipid -) 250 mls @ 20.833 mls/hr IV DAILY@2200 [facility] Last Admin: 08/15/16 22:39 Dose: 20.833 mls/hr Levofloxacin (Levaquin 750 Mg Premixed Ivpb -) 150 mls @ 100 mls/hr IVPB DAILY [facility] Last Admin: 08/16/16 11:27 Dose: 100 mls/hr Meropenem 1 gm/ Dextrose 100 mls @ 100 mls/hr IVPB Q8H-IV [facility] PRN Reason: Protocol Last Admin: 08/16/16 11:27 Dose: 100 mls/hr Famotidine/Sodium Chloride (Pepcid 20 Mg Premixed Ivpb -) 50 mls @ 100 mls/hr IVPB BID [facility] Last Admin: 08/16/16 10:29 Dose: 100 mls/hr Fluconazole (Diflucan 200 Mg/D5w Premixed Ivpb -) 100 mls @ 100 mls/hr IVPB DAILY [facility] Last Admin: 08/16/16 10:30 Dose: 100 mls/hr Magnesium Sulfate 4 gm/Insulin Human Regular 20 units / Thiamine HCl 100 mg/ Sodium Chloride 30 meq/ Potassium Chloride 10 meq/ Multivitamins /Minerals 10 ml / Potassium Phosphate 40 mm/ Folic Acid 1 mg/ Sterile Water/ Amino Acids / Dextrose 1,500 mls @ 62.5 mls/hr IVPB DAILY@1600 [facility] Last Admin: 08/15/16 17:01 Dose: 62.5 mls/hr Insulin Aspart (Novolog Vial Sliding Scale -) 1 vial SQ ACHS [facility] PRN Reason: Protocol Last Admin: 08/16/16 11:23 Dose: 4 units Miscellaneous (Duragesic Patch Waste) 1 each TD PRN PRN PRN Reason: PAIN - Objective Vital Signs: Vital Signs Temperature 102.4 F H 08/16/16 09:26 Pulse Rate 110 H 08/16/16 09:26 Respiratory Rate 24 08/16/16 13:58 Blood Pressure 141/71 08/16/16 09:26 O2 Sat by Pulse Oximetry (%) 95 08/15/16 09:00 Constitutional: Yes: Calm, Other Cardiovascular: Yes: Regular Rate and Rhythm Respiratory: Yes: Mechanically Ventilated, Other (trach) Gastrointestinal: Yes: Normal Bowel Sounds, Soft Musculoskeletal: Yes: Other Extremities: Yes: Other (dry gangrene of all the toes and fingers) Neurological: Yes: Alert Psychiatric: Yes: Alert Labs: CBC, BMP 08/15/16 06:30 08/15/16 06:30 INR, PTT INR 1.50 (0.82-1.09) H 08/09/16 11:30 Fibrinogen > 700.0 mg/dL (238-498) H 07/31/16 05:40 - ....Imaging Chest X-ray: Report Reviewed, Image Reviewed Assessment/Plan Problem List - Problems (1) Abdominal pain Code(s): R10.9 - UNSPECIFIED ABDOMINAL PAIN Qualifiers: Qualified Code(s): R10.33 - Periumbilical pain (2) Perforated abdominal viscus Code(s): [id number] - (3) Perforated viscus Code(s): R19.8 - OTH SYMPTOMS AND SIGNS INVOLVING THE DGSTV SYS AND ABDOMEN (4) Hypertension Code(s): I10 - ESSENTIAL (PRIMARY) HYPERTENSION Qualifiers: Qualified Code(s): I10 - Essential (primary) hypertension lactic acidosis fevers generalized swelling gangrene of the tip of the fingers noted plan continue current mgmt supportive treatment continue abx nutrition rest as per primary team will stop clinda tomorrow
--- NOTE | 2016-08-16 15:31 | PN ---
Progress Note, Physician History of Present Illness: patient stable spiked a fever patient mentally much more awake and alert responding on vent/trach - Current Medication List Current Medications: Active Medications Acetaminophen (Ofirmev Injection -) 1,000 mg IVPB Q6H PRN PRN Reason: FEVER Last Admin: 08/16/16 10:28 Dose: 1,000 mg Chlorhexidine Gluconate (Peridex -) 15 ml MM BID [facility] Last Admin: 08/16/16 10:29 Dose: 15 ml Dextrose (D50w (Vial) -) 50 ml IVPUSH Q15M PRN PRN Reason: BLOOD SUGAR < 60 Enoxaparin Sodium (Lovenox -) 40 mg SQ BID [facility] Last Admin: 08/16/16 11:20 Dose: 40 mg Fentanyl (Duragesic 25mcg Patch -) 1 patch TD Q72H [facility] Stop: 08/19/16 11:59 Last Admin: 08/15/16 11:31 Dose: 1 patch Furosemide (Lasix Injection -) 20 mg IVPB DAILY [facility] Last Admin: 08/16/16 10:28 Dose: 20 mg Clindamycin Phosphate (Cleocin 300 Mg Premix Ivpb) 50 mls @ 100 mls/hr IVPB Q8H -IV [facility] Last Admin: 08/16/16 10:59 Dose: 100 mls/hr Fat Emulsion Intravenous (Intralipid -) 250 mls @ 20.833 mls/hr IV DAILY@2200 [facility] Last Admin: 08/15/16 22:39 Dose: 20.833 mls/hr Levofloxacin (Levaquin 750 Mg Premixed Ivpb -) 150 mls @ 100 mls/hr IVPB DAILY [facility] Last Admin: 08/16/16 11:27 Dose: 100 mls/hr Meropenem 1 gm/ Dextrose 100 mls @ 100 mls/hr IVPB Q8H-IV [facility] PRN Reason: Protocol Last Admin: 08/16/16 11:27 Dose: 100 mls/hr Famotidine/Sodium Chloride (Pepcid 20 Mg Premixed Ivpb -) 50 mls @ 100 mls/hr IVPB BID [facility] Last Admin: 08/16/16 10:29 Dose: 100 mls/hr Fluconazole (Diflucan 200 Mg/D5w Premixed Ivpb -) 100 mls @ 100 mls/hr IVPB DAILY [facility] Last Admin: 08/16/16 10:30 Dose: 100 mls/hr Magnesium Sulfate 4 gm/Insulin Human Regular 20 units / Thiamine HCl 100 mg/ Sodium Chloride 30 meq/ Potassium Chloride 10 meq/ Multivitamins /Minerals 10 ml / Potassium Phosphate 40 mm/ Folic Acid 1 mg/ Sterile Water/ Amino Acids / Dextrose 1,500 mls @ 62.5 mls/hr IVPB DAILY@1600 [facility] Last Admin: 08/15/16 17:01 Dose: 62.5 mls/hr Insulin Aspart (Novolog Vial Sliding Scale -) 1 vial SQ ACHS [facility] PRN Reason: Protocol Last Admin: 08/16/16 11:23 Dose: 4 units Miscellaneous (Duragesic Patch Waste) 1 each TD PRN PRN PRN Reason: PAIN - Objective Vital Signs: Vital Signs Temperature 102.4 F H 08/16/16 09:26 Pulse Rate 110 H 08/16/16 09:26 Respiratory Rate 24 08/16/16 13:58 Blood Pressure 141/71 08/16/16 09:26 O2 Sat by Pulse Oximetry (%) 95 08/15/16 09:00 Constitutional: Yes: Calm, Other Neck: Yes: Other Cardiovascular: Yes: Regular Rate and Rhythm Respiratory: Yes: Regular, CTA Bilaterally Gastrointestinal: Yes: Other (fistula draianing) Musculoskeletal: Yes: Other Extremities: Yes: Other Wound/Incision: Yes: Other Neurological: Yes: Alert, Oriented Psychiatric: Yes: Alert, Oriented Labs: CBC, BMP 08/15/16 06:30 08/15/16 06:30 INR, PTT INR 1.50 (0.82-1.09) H 08/09/16 11:30 Fibrinogen > 700.0 mg/dL (238-498) H 07/31/16 05:40 Assessment/Plan Problem List - Problems (1) Abdominal pain Code(s): R10.9 - UNSPECIFIED ABDOMINAL PAIN Qualifiers: Qualified Code(s): R10.33 - Periumbilical pain (2) Perforated abdominal viscus Code(s): TIX9669 - (3) Perforated viscus Code(s): R19.8 - OTH SYMPTOMS AND SIGNS INVOLVING THE DGSTV SYS AND ABDOMEN (4) Hypertension Code(s): I10 - ESSENTIAL (PRIMARY) HYPERTENSION Qualifiers: Qualified Code(s): I10 - Essential (primary) hypertension lactic acidosis fevers generalized swelling gangrene of the tip of the fingers noted plan continue current mgmt supportive treatment continue abx nutrition rest as per primary team will stop clinda fever control will send sputum cx
[2016-08-16] MEDS: INSULIN REGULAR IVPB SCH (17:38)
[2016-08-16] MEDS: MAGNESIUM SULFATE IVPB SCH (17:38)
[2016-08-16] MEDS: [UNRECOGNIZED DRUG - OTHER] IVPB SCH (17:38)
[2016-08-16] MEDS: THIAMINE HCL IVPB SCH (17:38)
[2016-08-16] MEDS: FAT EMULSIONS 250 ML IV SCH (22:53)
[2016-08-17] MEDS: MEROPENEM 1 GM in DEXTROSE 5%-WATER - 100 ML IVPB SCH ×3 (02:09→18:31)
[2016-08-17] MEDS: CLINDAMYCIN 300 MG PREMIX IVPB 50 ML IVPB SCH ×3 (02:09→17:36)
[2016-08-17] MEDS: INSULIN SLIDING SCALE (NOVOLOG) 1 VIAL SQ SCH ×4 (06:13→23:42)
[2016-08-17] MEDS: ENOXAPARIN NA (PORCINE) 40 MG/0.4 ML DISP.SYRIN SQ SCH ×2 (10:10→23:02)
--- NOTE | 2016-08-17 11:54 | PN ---
Progress Note, Physician Chief Complaint: The patient seen in her bed. More alert. Maintains good urine output- Dark. TPN infusing - Current Medication List Current Medications: Active Medications Acetaminophen (Ofirmev Injection -) 1,000 mg IVPB Q6H PRN PRN Reason: FEVER Last Admin: 08/16/16 10:28 Dose: 1,000 mg Chlorhexidine Gluconate (Peridex -) 15 ml MM BID [facility] Last Admin: 08/16/16 22:57 Dose: 15 ml Dextrose (D50w (Vial) -) 50 ml IVPUSH Q15M PRN PRN Reason: BLOOD SUGAR < 60 Enoxaparin Sodium (Lovenox -) 40 mg SQ BID [facility] Last Admin: 08/17/16 10:10 Dose: 40 mg Fentanyl (Duragesic 25mcg Patch -) 1 patch TD Q72H [facility] Stop: 08/19/16 11:59 Last Admin: 08/15/16 11:31 Dose: 1 patch Furosemide (Lasix Injection -) 20 mg IVPB DAILY [facility] Last Admin: 08/16/16 10:28 Dose: 20 mg Clindamycin Phosphate (Cleocin 300 Mg Premix Ivpb) 50 mls @ 100 mls/hr IVPB Q8H -IV [facility] Last Admin: 08/17/16 10:10 Dose: 100 mls/hr Fat Emulsion Intravenous (Intralipid -) 250 mls @ 20.833 mls/hr IV DAILY@2200 [facility] Last Admin: 08/16/16 22:53 Dose: 20.833 mls/hr Levofloxacin (Levaquin 750 Mg Premixed Ivpb -) 150 mls @ 100 mls/hr IVPB DAILY [facility] Last Admin: 08/16/16 11:27 Dose: 100 mls/hr Meropenem 1 gm/ Dextrose 100 mls @ 100 mls/hr IVPB Q8H-IV [facility] PRN Reason: Protocol Last Admin: 08/17/16 11:06 Dose: 100 mls/hr Famotidine/Sodium Chloride (Pepcid 20 Mg Premixed Ivpb -) 50 mls @ 100 mls/hr IVPB BID [facility] Last Admin: 08/16/16 22:56 Dose: 100 mls/hr Fluconazole (Diflucan 200 Mg/D5w Premixed Ivpb -) 100 mls @ 100 mls/hr IVPB DAILY [facility] Last Admin: 08/16/16 10:30 Dose: 100 mls/hr Magnesium Sulfate 4 gm/Insulin Human Regular 20 units / Thiamine HCl 100 mg/ Sodium Chloride 30 meq/ Potassium Chloride 10 meq/ Multivitamins /Minerals 10 ml / Potassium Phosphate 40 mm/ Folic Acid 1 mg/ Sterile Water/ Amino Acids / Dextrose 1,500 mls @ 62.5 mls/hr IVPB DAILY@1600 [facility] Last Admin: 08/16/16 17:38 Dose: 62.5 mls/hr Insulin Aspart (Novolog Vial Sliding Scale -) 1 vial SQ ACHS [facility] PRN Reason: Protocol Last Admin: 08/17/16 06:13 Dose: 2 units Miscellaneous (Duragesic Patch Waste) 1 each TD PRN PRN PRN Reason: PAIN - Objective Vital Signs: Vital Signs Temperature 100.2 F H 08/17/16 02:00 Pulse Rate 102 H 08/17/16 02:00 Respiratory Rate 14 08/17/16 10:43 Blood Pressure 141/67 08/17/16 02:00 O2 Sat by Pulse Oximetry (%) 95 08/15/16 09:00 Constitutional: Yes: Diaphoresis, Mild Distress Neck: Yes: Trachea Midline Cardiovascular: Yes: S1, S2 Respiratory: Yes: Diminished, Poor Air Entry Gastrointestinal: Yes: Hypoactive Bowel Sounds Genitourinary: Yes: Bacon Present Labs: CBC, BMP 08/15/16 06:30 08/15/16 06:30 INR, PTT INR 1.50 (0.82-1.09) H 08/09/16 11:30 Fibrinogen > 700.0 mg/dL (238-498) H 07/31/16 05:40 Problem List - Problems (1) Perforated abdominal viscus Code(s): RDX5769 - (2) ZAHIRA (acute kidney injury) Code(s): N17.9 - ACUTE KIDNEY FAILURE, UNSPECIFIED (3) Hypomagnesemia Code(s): E83.42 - HYPOMAGNESEMIA (4) Metabolic acidemia Code(s): E87.2 - ACIDOSIS (5) Metabolic acidosis Code(s): E87.2 - ACIDOSIS Assessment/Plan 65 y/o female with recent ZAHIRA. Renal functions improved since. S/p Perforated viscus, s/p colectomy. Receiving TPN for nutritional supplements. Continues to be febrile. ID professional housing consultant following. No specific changes in treatments suggested at this point. Katty Singer MD
[2016-08-17] MEDS: FUROSEMIDE 40 MG/4 ML INJECTABLE VIAL IVPB SCH (12:11)
[2016-08-17] MEDS ORDERED: FAMOTIDINE 20 MG/50 ML IVPB 50 ML IVPB SCH (12:15)
[2016-08-17] MEDS ORDERED: FAMOTIDINE 20 MG/50 ML IVPB 50 ML IVPB ONE (12:15)
[2016-08-17] MEDS: FAMOTIDINE 20 MG/50 ML IVPB 50 ML IVPB SCH ×2 (12:16→23:02)
--- NOTE | 2016-08-17 12:27 | PN ---
Progress Note, Physician History of Present Illness: patient stable spiked a fever patient mentally much more awake and alert responding on vent/trach - Current Medication List Current Medications: Active Medications Acetaminophen (Ofirmev Injection -) 1,000 mg IVPB Q6H PRN PRN Reason: FEVER Last Admin: 08/16/16 10:28 Dose: 1,000 mg Chlorhexidine Gluconate (Peridex -) 15 ml MM BID [facility] Last Admin: 08/16/16 22:57 Dose: 15 ml Dextrose (D50w (Vial) -) 50 ml IVPUSH Q15M PRN PRN Reason: BLOOD SUGAR < 60 Enoxaparin Sodium (Lovenox -) 40 mg SQ BID [facility] Last Admin: 08/17/16 10:10 Dose: 40 mg Fentanyl (Duragesic 25mcg Patch -) 1 patch TD Q72H [facility] Stop: 08/19/16 11:59 Last Admin: 08/15/16 11:31 Dose: 1 patch Furosemide (Lasix Injection -) 20 mg IVPB DAILY [facility] Last Admin: 08/17/16 12:11 Dose: 20 mg Clindamycin Phosphate (Cleocin 300 Mg Premix Ivpb) 50 mls @ 100 mls/hr IVPB Q8H -IV [facility] Last Admin: 08/17/16 10:10 Dose: 100 mls/hr Fat Emulsion Intravenous (Intralipid -) 250 mls @ 20.833 mls/hr IV DAILY@2200 [facility] Last Admin: 08/16/16 22:53 Dose: 20.833 mls/hr Levofloxacin (Levaquin 750 Mg Premixed Ivpb -) 150 mls @ 100 mls/hr IVPB DAILY [facility] Last Admin: 08/16/16 11:27 Dose: 100 mls/hr Meropenem 1 gm/ Dextrose 100 mls @ 100 mls/hr IVPB Q8H-IV [facility] PRN Reason: Protocol Last Admin: 08/17/16 11:06 Dose: 100 mls/hr Famotidine/Sodium Chloride (Pepcid 20 Mg Premixed Ivpb -) 50 mls @ 100 mls/hr IVPB BID [facility] Last Admin: 08/17/16 12:16 Dose: Not Given Fluconazole (Diflucan 200 Mg/D5w Premixed Ivpb -) 100 mls @ 100 mls/hr IVPB DAILY [facility] Last Admin: 08/16/16 10:30 Dose: 100 mls/hr Magnesium Sulfate 4 gm/Insulin Human Regular 20 units / Thiamine HCl 100 mg/ Sodium Chloride 30 meq/ Potassium Chloride 10 meq/ Multivitamins /Minerals 10 ml / Potassium Phosphate 40 mm/ Folic Acid 1 mg/ Sterile Water/ Amino Acids / Dextrose 1,500 mls @ 62.5 mls/hr IVPB DAILY@1600 [facility] Last Admin: 08/16/16 17:38 Dose: 62.5 mls/hr Famotidine/Sodium Chloride (Pepcid 20 Mg Premixed Ivpb -) 50 mls @ 100 mls/hr IVPB ONCE ONE Stop: 08/17/16 12:44 Last Admin: 08/17/16 12:12 Dose: 100 mls/hr Insulin Aspart (Novolog Vial Sliding Scale -) 1 vial SQ ACHS [facility] PRN Reason: Protocol Last Admin: 08/17/16 06:13 Dose: 2 units Miscellaneous (Duragesic Patch Waste) 1 each TD PRN PRN PRN Reason: PAIN - Objective Vital Signs: Vital Signs Temperature 100.2 F H 08/17/16 02:00 Pulse Rate 102 H 08/17/16 02:00 Respiratory Rate 14 08/17/16 10:43 Blood Pressure 141/67 08/17/16 02:00 O2 Sat by Pulse Oximetry (%) 95 08/15/16 09:00 Constitutional: Yes: Calm Neck: Yes: Supple Cardiovascular: Yes: Regular Rate and Rhythm Respiratory: Yes: Regular, CTA Bilaterally Gastrointestinal: Yes: Soft Musculoskeletal: Yes: Other Extremities: Yes: Other Neurological: Yes: Alert Labs: CBC, BMP 08/15/16 06:30 08/15/16 06:30 INR, PTT INR 1.50 (0.82-1.09) H 08/09/16 11:30 Fibrinogen > 700.0 mg/dL (238-498) H 07/31/16 05:40 Assessment/Plan Problem List - Problems (1) Abdominal pain Code(s): R10.9 - UNSPECIFIED ABDOMINAL PAIN Qualifiers: Qualified Code(s): R10.33 - Periumbilical pain (2) Perforated abdominal viscus Code(s): [id number] - (3) Perforated viscus Code(s): R19.8 - OTH SYMPTOMS AND SIGNS INVOLVING THE DGSTV SYS AND ABDOMEN (4) Hypertension Code(s): I10 - ESSENTIAL (PRIMARY) HYPERTENSION Qualifiers: Qualified Code(s): I10 - Essential (primary) hypertension lactic acidosis fevers generalized swelling gangrene of the tip of the fingers noted plan continue current mgmt continue suctioning await for sputum cx ct rest of abx and diflucan rest as per primary
--- NOTE | 2016-08-17 12:37 | PN ---
Progress Note (short form) - Note Progress Note: PULMONARY Vented on volume assist control. Peak pressures high today, secretions noted to be thick by RT. Remains poorly responsive, febrile. Last Vital Signs Temp Pulse Resp BP Pulse Ox 100.2 F H 102 H 14 141/67 95 08/17/16 02:00 08/17/16 02:00 08/17/16 10:43 08/17/16 02:00 08/15/16 09:00 Gen: vented, poorly responsive Heart: tachycardic, regular Lung: scattered rhonchi Abd: soft, nontender Ext: multiple ulcers, dry gangrene of bilateral feet, fingers CBC, BMP 08/15/16 06:30 08/15/16 06:30 Active Medications Acetaminophen (Ofirmev Injection -) 1,000 mg IVPB Q6H PRN PRN Reason: FEVER Last Admin: 08/16/16 10:28 Dose: 1,000 mg Chlorhexidine Gluconate (Peridex -) 15 ml MM BID [facility] Last Admin: 08/16/16 22:57 Dose: 15 ml Dextrose (D50w (Vial) -) 50 ml IVPUSH Q15M PRN PRN Reason: BLOOD SUGAR < 60 Enoxaparin Sodium (Lovenox -) 40 mg SQ BID [facility] Last Admin: 08/17/16 10:10 Dose: 40 mg Fentanyl (Duragesic 25mcg Patch -) 1 patch TD Q72H [facility] Stop: 08/19/16 11:59 Last Admin: 08/15/16 11:31 Dose: 1 patch Furosemide (Lasix Injection -) 20 mg IVPB DAILY [facility] Last Admin: 08/17/16 12:11 Dose: 20 mg Clindamycin Phosphate (Cleocin 300 Mg Premix Ivpb) 50 mls @ 100 mls/hr IVPB Q8H -IV [facility] Last Admin: 08/17/16 10:10 Dose: 100 mls/hr Fat Emulsion Intravenous (Intralipid -) 250 mls @ 20.833 mls/hr IV DAILY@2200 [facility] Last Admin: 08/16/16 22:53 Dose: 20.833 mls/hr Levofloxacin (Levaquin 750 Mg Premixed Ivpb -) 150 mls @ 100 mls/hr IVPB DAILY [facility] Last Admin: 08/16/16 11:27 Dose: 100 mls/hr Meropenem 1 gm/ Dextrose 100 mls @ 100 mls/hr IVPB Q8H-IV [facility] PRN Reason: Protocol Last Admin: 08/17/16 11:06 Dose: 100 mls/hr Famotidine/Sodium Chloride (Pepcid 20 Mg Premixed Ivpb -) 50 mls @ 100 mls/hr IVPB BID [facility] Last Admin: 08/17/16 12:16 Dose: Not Given Fluconazole (Diflucan 200 Mg/D5w Premixed Ivpb -) 100 mls @ 100 mls/hr IVPB DAILY [facility] Last Admin: 08/16/16 10:30 Dose: 100 mls/hr Magnesium Sulfate 4 gm/Insulin Human Regular 20 units / Thiamine HCl 100 mg/ Sodium Chloride 30 meq/ Potassium Chloride 10 meq/ Multivitamins /Minerals 10 ml / Potassium Phosphate 40 mm/ Folic Acid 1 mg/ Sterile Water/ Amino Acids / Dextrose 1,500 mls @ 62.5 mls/hr IVPB DAILY@1600 [facility] Last Admin: 08/16/16 17:38 Dose: 62.5 mls/hr Famotidine/Sodium Chloride (Pepcid 20 Mg Premixed Ivpb -) 50 mls @ 100 mls/hr IVPB ONCE ONE Stop: 08/17/16 12:44 Last Admin: 08/17/16 12:12 Dose: 100 mls/hr Insulin Aspart (Novolog Vial Sliding Scale -) 1 vial SQ ACHS [facility] PRN Reason: Protocol Last Admin: 08/17/16 06:13 Dose: 2 units Miscellaneous (Duragesic Patch Waste) 1 each TD PRN PRN PRN Reason: PAIN A/P Perforated Duodenal Ulcer Peritonitis s/p ex-lap/omental patch repair 07/16 Enterocutaneous Fistula Acute Respiratory Failure Septic Shock Lactic Acidosis Leukopenia/Thrombocytopenia likely from sepsis DM DVT Gangrene - will add inhaled bronchodilators - antibiotics per ID - taper Fio2 to keep Spo2 >90% - continue anticoagulation - minimize sedation to assess mental status - TPN per renal - spontaneous breathing trials as tolerated - DVT/GI prophylaxis - prognosis is poor, continue discussions regarding advanced directives and goals of care - recommend palliative due to failure to wean, anticipated amputations, poor quality of life
[2016-08-17] MEDS: ALBUTEROL SO4 2.5/IPRATROPIUM 0.5 INH SOL 3 ML VIAL.NEB. NEB SCH ×3 (13:00→23:26)
[2016-08-17] MEDS: morphine CARPU-JECT 2 MG/1 ML DISP.SYRIN IVPUSH PRN (13:05)
[2016-08-17] MEDS: CHLORHEXIDINE GLUCONATE 0.12% 15ML CUP MM SCH ×2 (13:07→23:03)
[2016-08-17] MEDS: FLUCONAZOLE 200 MG/D5W 100 ML IVPB SCH (13:09)
--- NOTE | 2016-08-17 14:08 | PN ---
Progress Note, Physician Chief Complaint: Has minimal response History of Present Illness: On respirator - Current Medication List Current Medications: Active Medications Acetaminophen (Ofirmev Injection -) 1,000 mg IVPB Q6H PRN PRN Reason: FEVER Last Admin: 08/16/16 10:28 Dose: 1,000 mg Albuterol/Ipratropium (Duoneb -) 1 amp NEB QIDR [facility] Last Admin: 08/17/16 13:00 Dose: 1 amp Chlorhexidine Gluconate (Peridex -) 15 ml MM BID [facility] Last Admin: 08/17/16 13:07 Dose: 15 ml Dextrose (D50w (Vial) -) 50 ml IVPUSH Q15M PRN PRN Reason: BLOOD SUGAR < 60 Enoxaparin Sodium (Lovenox -) 40 mg SQ BID [facility] Last Admin: 08/17/16 10:10 Dose: 40 mg Fentanyl (Duragesic 25mcg Patch -) 1 patch TD Q72H [facility] Stop: 08/19/16 11:59 Last Admin: 08/15/16 11:31 Dose: 1 patch Furosemide (Lasix Injection -) 20 mg IVPB DAILY [facility] Last Admin: 08/17/16 12:11 Dose: 20 mg Clindamycin Phosphate (Cleocin 300 Mg Premix Ivpb) 50 mls @ 100 mls/hr IVPB Q8H -IV [facility] Last Admin: 08/17/16 10:10 Dose: 100 mls/hr Fat Emulsion Intravenous (Intralipid -) 250 mls @ 20.833 mls/hr IV DAILY@2200 [facility] Last Admin: 08/16/16 22:53 Dose: 20.833 mls/hr Levofloxacin (Levaquin 750 Mg Premixed Ivpb -) 150 mls @ 100 mls/hr IVPB DAILY [facility] Last Admin: 08/16/16 11:27 Dose: 100 mls/hr Meropenem 1 gm/ Dextrose 100 mls @ 100 mls/hr IVPB Q8H-IV [facility] PRN Reason: Protocol Last Admin: 08/17/16 11:06 Dose: 100 mls/hr Famotidine/Sodium Chloride (Pepcid 20 Mg Premixed Ivpb -) 50 mls @ 100 mls/hr IVPB BID [facility] Last Admin: 08/17/16 12:16 Dose: Not Given Fluconazole (Diflucan 200 Mg/D5w Premixed Ivpb -) 100 mls @ 100 mls/hr IVPB DAILY [facility] Last Admin: 08/17/16 13:09 Dose: 100 mls/hr Magnesium Sulfate 4 gm/Insulin Human Regular 20 units / Thiamine HCl 100 mg/ Sodium Chloride 30 meq/ Potassium Chloride 10 meq/ Multivitamins /Minerals 10 ml / Potassium Phosphate 40 mm/ Folic Acid 1 mg/ Sterile Water/ Amino Acids / Dextrose 1,500 mls @ 62.5 mls/hr IVPB DAILY@1600 [facility] Last Admin: 08/16/16 17:38 Dose: 62.5 mls/hr Insulin Aspart (Novolog Vial Sliding Scale -) 1 vial SQ ACHS [facility] PRN Reason: Protocol Last Admin: 08/17/16 13:07 Dose: 4 units Miscellaneous (Duragesic Patch Waste) 1 each TD PRN PRN PRN Reason: PAIN Morphine Sulfate (Morphine Injection -) 2 mg IVPUSH Q4H PRN PRN Reason: PAIN Last Admin: 08/17/16 13:05 Dose: 2 mg - Objective Vital Signs: Vital Signs Temperature 99.3 F 08/17/16 10:00 Pulse Rate 118 H 08/17/16 10:00 Respiratory Rate 14 08/17/16 10:43 Blood Pressure 160/83 08/17/16 10:00 O2 Sat by Pulse Oximetry (%) 95 08/15/16 09:00 Constitutional: Yes: Mild Distress Eyes: Yes: WNL HENT: Yes: WNL Neck: Yes: WNL Cardiovascular: Yes: WNL Respiratory: Yes: Mechanically Ventilated Gastrointestinal: Yes: Normal Bowel Sounds Genitourinary: Yes: Bacon Present Labs: CBC, BMP 08/15/16 06:30 08/15/16 06:30 INR, PTT INR 1.50 (0.82-1.09) H 08/09/16 11:30 Fibrinogen > 700.0 mg/dL (238-498) H 07/31/16 05:40 Assessment/Plan continue same trt
[2016-08-17] MEDS: LEVOFLOXACIN 750 MG IVPB 150 ML IVPB SCH (14:16)
[2016-08-17] MEDS ORDERED: ALBUTEROL SO4 2.5/IPRATROPIUM 0.5 INH SOL 3 ML VIAL.NEB. NEB SCH (18:00)
[2016-08-17] MEDS: THIAMINE HCL IVPB SCH (18:03)
[2016-08-17] MEDS: MAGNESIUM SULFATE IVPB SCH (18:03)
[2016-08-17] MEDS: INSULIN REGULAR IVPB SCH (18:03)
[2016-08-17] MEDS: [UNRECOGNIZED DRUG - OTHER] IVPB SCH (18:03)
[2016-08-17] MEDS: FAT EMULSIONS 250 ML IV SCH (23:01)
[2016-08-17] MEDS: ACETAMINOPHEN 1000 MG/100 ML VIAL (NON FORMULARY) IVPB PRN (23:03)
[2016-08-18] MEDS ORDERED: PT OWN MED DRAWER 7, Y5N ONE ×3 (01:44→17:55)
--- NOTE | 2016-08-18 01:44 | RAPID ---
Physical Examination Vital Signs: Vital Signs Temperature 100.0 F H 08/18/16 01:06 Pulse Rate 117 H 08/18/16 00:47 Respiratory Rate 18 08/18/16 00:47 Blood Pressure 142/114 08/18/16 00:47 O2 Sat by Pulse Oximetry (%) 92 L 08/17/16 09:00 Findings/Remarks: Seen at bedside for diaphoresis and increased RR Pt.non-verbal at baseline Dipahoretic at bedside unable to get 02 sat High peak pressures on vent Suctioned Physical: Vital Signs Period Temp Pulse Resp BP Sys/Major Pulse Ox Last 24 Hr 98.7 F-100.2 F 102-118 14-28 110-160/55-114 92 GEN: Non- Verbal HEENT:NCAT, PERRL CARD: Stach S1, S2 RESP: Decreased BS at bases ABD: Wound purulent with foul ordor, Soft, BS Present EXT: Cyanotic toes with sloughing CBCD WBC 15.9 K/mm3 (4.0-10.0) H 08/15/16 06:30 RBC 2.57 M/mm3 (3.60-5.2) L 08/15/16 06:30 Hgb 7.4 GM/dL (10.7-15.3) L 08/15/16 06:30 Hct 22.2 % (32.4-45.2) L 08/15/16 06:30 MCV 86.4 fl (80-96) 08/15/16 06:30 MCHC 33.6 g/dl (32.0-36.0) 08/15/16 06:30 RDW 13.9 % (11.6-15.6) 08/15/16 06:30 Plt Count 564 K/MM3 (134-434) H 08/15/16 06:30 MPV 7.5 fl (7.5-11.1) 08/15/16 06:30 CMP Sodium 134 mmol/L (136-145) L 08/15/16 06:30 Potassium 4.6 mmol/L (3.5-5.1) 08/15/16 06:30 Chloride 99 mmol/L (98-107) 08/15/16 06:30 Carbon Dioxide 27 mmol/L (21-32) 08/15/16 06:30 Anion Gap 8 (8-16) 08/15/16 06:30 BUN 15 mg/dL (7-18) 08/15/16 06:30 Creatinine 0.3 mg/dL (0.55-1.02) L 08/15/16 06:30 Creat Clearance w eGFR > 60 (>60) 08/15/16 06:30 Random Glucose 183 mg/dL (74-106) H 08/15/16 06:30 Calcium 8.1 mg/dL (8.5-10.1) L 08/15/16 06:30 Total Bilirubin 0.4 mg/dL (0.2-1.0) 08/15/16 06:30 AST 25 U/L (15-37) 08/15/16 06:30 ALT 18 U/L (12-78) 08/15/16 06:30 Alkaline Phosphatase 180 U/L (45-117) H D 08/15/16 06:30 Total Protein 5.9 g/dl (6.4-8.2) L 08/15/16 06:30 Albumin 1.0 g/dl (3.4-5.0) L 08/15/16 06:30 CARDIAC ENZYMES Creatine Kinase 373 IU/L (26-192) H D 07/16/16 10:42 Troponin I < 0.02 ng/ml (0.00-0.05) 07/16/16 10:42 A/P.) 65 F with ARF/Septic shock in mod. distress SEPSIS vs. MO - Stat LA, CBC, Repeat Cx's - Stat CXR - TROP/EKG - ABG - Consider transfer to ICU once bed avail - CC Time: 35 minutes Labs: CBC, BMP 08/15/16 06:30 08/15/16 06:30
[2016-08-18 01:45] LABS: ARTERIAL BLOOD GAS BASE EXCESS -0.4 meq/l (-2-2); ARTERIAL BLOOD GAS HCO3 28.6 meq/L (22-26)
[2016-08-18 01:48] LABS: ALLENS TEST POSITIVE; ART PUNCT SITE LEFT RADIAL; LPM/O2% 40; MECH. VENT. YES; PT. ON O2? YES; TYPE OF O2 VENT; VENT RATE 14; VT/PRESS 350
--- NOTE | 2016-08-18 01:50 | RAPID ---
Physical Examination Vital Signs: Vital Signs Temperature 100.0 F H 08/18/16 01:06 Pulse Rate 117 H 08/18/16 00:47 Respiratory Rate 18 08/18/16 00:47 Blood Pressure 142/114 08/18/16 00:47 O2 Sat by Pulse Oximetry (%) 92 L 08/17/16 09:00 Constitutional: Yes: Diaphoresis, Mild Distress, Thin HENT: Yes: Atraumatic, Normocephalic Cardiovascular: Yes: Tachycardia, S1, S2 Respiratory: Yes: Mechanically Ventilated (tracheostomy), Rhonchi, SOB, Wheezes Gastrointestinal: Yes: Normal Bowel Sounds, Soft Renal/: Yes: Bacon Present Edema: No Peripheral Pulses: Left Radial: 2+, Right Radial: 2+, Left Doralis Pedis: 2+, Right Dorsalis Pedis: 2+ Integumentary: Yes: Other (ganrenous feet, sloughig of skin whole body) Neurological: Yes: Aphasia, Tremors Labs: CBC, BMP 08/15/16 06:30 08/15/16 06:30 Rapid Response - Rapid Response Assessment: Called to evaluate patient due to patient being profusely diaphoretic if the face and chest. Patient is trached and vented. Currently being treated for sepsis. #diaphoresis/tachycardia/temp 100.2 rectal: -sepsis secondary to peritonitis? pna? vs acute cardiac event -on IV antibiotics Meropenam, clinda, levo -patient unable to speak or express feelings of discomfort; she is in bed eyes open , -stat cbc, cmp, lactic acid, abg, UA, benson cultures -stat CXR -troponins , ekg Results/interventions: -increase in wbcs; already on IV antibiotics -lactic acid wnl: -first abg consistent with acidosis acute hypercarbia: increased respiratory rate; -no significant change on CXR -ECG showing atrial enlargement, no st t wave abnormalities -troponin negative; second pending -Second abg improved; not candidate for ICU ; patient stabilized; vital stable -f/u cultures
[2016-08-18 01:54] LABS: MCH 27.9 pg (25.7-33.7); MCHC 31.7 g/dl (32.0-36.0); MEAN CELL VOLUME 87.9 fl (80-96); MEAN PLT VOLUME 7.3 fl (7.5-11.1); PLATELET COUNT 602 K/MM3 (134-434); RDW 14.5 % (11.6-15.6); WHITE BLOOD COUNT 20.5 K/mm3 (4.0-10.0)
[2016-08-18 02:34] LABS: ALBUMIN 1.2 g/dl (3.4-5.0); ANION GAP 8 (8-16); BILIRUBIN,TOTAL 0.3 mg/dL (0.2-1.0); CALCIUM 8.7 mg/dL (8.5-10.1); CO2 29 mmol/L (21-32); CREATININE 0.3 mg/dL (0.55-1.02); GLUCOSE,RANDOM 199 mg/dL (74-106); SGOT/AST 23 U/L (15-37); SGPT/ALT 20 U/L (12-78); TOT PROT 6.8 g/dl (6.4-8.2)
[2016-08-18 02:35] LABS: ALK PHOS 198 U/L (45-117)
[2016-08-18 02:36] LABS: TROPONIN I 0.03 ng/ml (0.00-0.05)
[2016-08-18] MEDS: MEROPENEM 1 GM in DEXTROSE 5%-WATER - 100 ML IVPB SCH ×3 (02:36→20:08)
[2016-08-18] MEDS: CLINDAMYCIN 300 MG PREMIX IVPB 50 ML IVPB SCH ×2 (02:36→12:48)
[2016-08-18 02:42] LABS: ALLENS TEST POSITIVE; ART PUNCT SITE LEFT RADIAL; ARTERIAL BLD GAS O2 SATURATION 99.8 % (90-98.9); ARTERIAL BLOOD GAS BASE EXCESS 1.7 meq/l (-2-2); PT. ON O2? YES
[2016-08-18 02:43] LABS: ARTERIAL BLOOD GAS pH 7.29 (7.35-7.45); LPM/O2% 60; MECH. VENT. YES; TYPE OF O2 VENT; VENT RATE 18; VT/PRESS 400
[2016-08-18 04:59] LABS: ANISOCYTOSIS 1+; HYPOCHROMIA 1+
[2016-08-18] MEDS: INSULIN SLIDING SCALE (NOVOLOG) 1 VIAL SQ SCH ×4 (06:19→22:37)
[2016-08-18] MEDS: ACETAMINOPHEN 1000 MG/100 ML VIAL (NON FORMULARY) IVPB PRN (06:19)
[2016-08-18] MEDS: ALBUTEROL SO4 2.5/IPRATROPIUM 0.5 INH SOL 3 ML VIAL.NEB. NEB SCH ×3 (06:50→18:30)
[2016-08-18 08:03] LABS: BASOPHIL 0.7 % (0-2.0); EOSINOPHIL 1.5 % (0-4.5); MCH 28.7 pg (25.7-33.7); MCHC 32.4 g/dl (32.0-36.0); MEAN CELL VOLUME 88.7 fl (80-96); MEAN PLT VOLUME 7.4 fl (7.5-11.1); NEUTROPHILS 81.6 % (42.8-82.8); PLATELET COUNT 535 K/MM3 (134-434); RDW 14.5 % (11.6-15.6); WHITE BLOOD COUNT 21.7 K/mm3 (4.0-10.0)
[2016-08-18 08:45] LABS: ALBUMIN 1.2 g/dl (3.4-5.0); ALK PHOS 183 U/L (45-117); ANION GAP 7 (8-16); BILIRUBIN,TOTAL 0.3 mg/dL (0.2-1.0); CO2 30 mmol/L (21-32); CREATININE 0.3 mg/dL (0.55-1.02); GLUCOSE,RANDOM 217 mg/dL (74-106); SGOT/AST 22 U/L (15-37); SGPT/ALT 19 U/L (12-78); TOT PROT 6.6 g/dl (6.4-8.2)
[2016-08-18] MEDS: ENOXAPARIN NA (PORCINE) 40 MG/0.4 ML DISP.SYRIN SQ SCH ×2 (11:07→22:21)
[2016-08-18] MEDS: CHLORHEXIDINE GLUCONATE 0.12% 15ML CUP MM SCH ×2 (11:26→22:22)
--- NOTE | 2016-08-18 12:01 | PN ---
Progress Note (short form) - Note Progress Note: Neurology History of Present Illness The patient is a 65-year-old woman, with a significant past medical history of hypertension, hypercholesterolemia, diabetes mellitus and GI disorders who presented to the emergency department via walk-in for further evaluation of abdominal pain for the past 3-4 days with unintentional 20 lb weight loss over the past three months. She required surgical intervention as documented by Dr. Louise. Thereafter, complicated course and patient in ICU, off sedation for several days. CT head without acute changes. Patient was not awakening initially and concern was hypoperfusion and possible anoxic brain injury. 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 Since, has awoken and is keeps eye open, occasional tracking and previously occasional spontaneous extremity movement but minimal now. Does have notable gangrene of fingers and toes. protecting airway and remains intubated and on vent, status post trach as she was not able to tolerate weaning. Toxic metabolic vs hypoperfusion and anoxic brain injury. Would benefit from MRI but not able to obtain due to vent. Has sepsis and getting ongoing treatment. Previously opening mouth and sticking out tongue to command with resident but no significant cognitive activity at this time. Has been downgraded from ICU to floor status and minimal activity. Rapid response overnight and repeat ABG's completed, respiratory optimized. Nurse mentioned possible ENT evaluation. *Physical Exam Vital Signs Temperature 100.8 F H 08/18/16 11:30 Pulse Rate 110 H 08/18/16 11:30 Respiratory Rate 22 08/18/16 11:30 Blood Pressure 150/60 08/18/16 11:30 O2 Sat by Pulse Oximetry (%) 92 L 08/17/16 09:00 GENERAL: Awake Frail appearing. HEENT: Normocephalic, atraumatic. +Temporal wasting. PERRL, EOMI. No conjunctival pallor. +Sclera are icteric. +Dry mucous membranes. Oropharynx is clear. NECK: Supple. Full ROM. No JVD. CARDIOVASCULAR: Tachycardic rate but regular rate and rhythm. No murmurs, rubs, or gallops. PULMONARY: +Diffuse dyspneic breath sounds that are equal bilaterally. No wheezing, crackles or rhonchi. ABDOMINAL: Firm but soft abdomen. Diffuse tenderness to palpation without rebound or guarding. Non-distended. No organomegaly. Normoactive bowel sounds. MUSCULOSKELETAL: Normal range of motion at all joints. No bony deformities or tenderness. No CVA tenderness. EXTREMITIES: No cyanosis. No clubbing. No edema. No calf tenderness. SKIN: Tenting of the skin. Jaundiced. No rashes. NEUROLOGICAL: Trached, ventilation, opens eyes and minimal movement of extremities but not cooperating with confrontation testing, withdraws to pain, not following complex commands, not tracking CBCD WBC 21.7 K/mm3 (4.0-10.0) H 08/18/16 06:30 RBC 2.50 M/mm3 (3.60-5.2) L 08/18/16 06:30 Hgb 7.2 GM/dL (10.7-15.3) L 08/18/16 06:30 Hct 22.1 % (32.4-45.2) L 08/18/16 06:30 MCV 88.7 fl (80-96) 08/18/16 06:30 MCHC 32.4 g/dl (32.0-36.0) 08/18/16 06:30 RDW 14.5 % (11.6-15.6) 08/18/16 06:30 Plt Count 535 K/MM3 (134-434) H 08/18/16 06:30 MPV 7.4 fl (7.5-11.1) L 08/18/16 06:30 CMP Sodium 135 mmol/L (136-145) L 08/18/16 06:30 Potassium 5.4 mmol/L (3.5-5.1) H 08/18/16 06:30 Chloride 98 mmol/L (98-107) 08/18/16 06:30 Carbon Dioxide 30 mmol/L (21-32) 08/18/16 06:30 Anion Gap 7 (8-16) L 08/18/16 06:30 BUN 22 mg/dL (7-18) H 08/18/16 06:30 Creatinine 0.3 mg/dL (0.55-1.02) L 08/18/16 06:30 Creat Clearance w eGFR > 60 (>60) 08/18/16 06:30 Calcium 9.0 mg/dL (8.5-10.1) 08/18/16 06:30 Total Bilirubin 0.3 mg/dL (0.2-1.0) 08/18/16 06:30 AST 22 U/L (15-37) 08/18/16 06:30 ALT 19 U/L (12-78) 08/18/16 06:30 Alkaline Phosphatase 183 U/L (45-117) H 08/18/16 06:30 Total Protein 6.6 g/dl (6.4-8.2) 08/18/16 06:30 Albumin 1.2 g/dl (3.4-5.0) L 08/18/16 06:30 EXAM: CT/HEAD CT WITHOUT CONTRAST IMPRESSION: Comparison study MRI of the brain February 23, 2015. Findings. Serial axial images of the brain were obtained from foramen magnum to the cranial vertex without intravenous contrast, with coronal, sagittal reconstruction images. No evidence of hydrocephalus, acute subarachnoid hemorrhage, acute intra-axial or extra-axial fluid collection consistent with subdural or epidural hematoma. No mass effect, midline shift, acute ischemic changes, herniation or edema is present. Normal yancey matter white matter differentiation. The cortical sulci, sylvian fissures, perimesencephalic cisterns are not effaced. The CSF spaces are age-appropriate. Supratentorial periventricular chronic white matter microangiopathic ischemic changes are noted. Examination of the bone windows show no fracture. Normal intracranial physiological calcifications are observed. The cranial vascular calcifications are noted. The visualized paranasal sinuses and mastoid air cells are clear. Medical Decision Making 65-year-old woman, with a significant past medical history of hypertension, hypercholesterolemia, diabetes mellitus and GI disorders who presented to the emergency department via walk-in for further evaluation of abdominal pain for the past 3-4 days with unintentional 20 lb weight loss over the past three months. She required surgical intervention as documented by Dr. Louise. Thereafter , complicated course and patient in ICU, off sedation for several days. CT head without acute changes. Patient was not awakening initially and concern was hypoperfusion and possible anoxic brain injury. Since, has awoken and is keeps eye open, some tracking previously and producing spontaneous extremity movement previously. Toxic metabolic vs hypoperfusion and anoxic brain injury. Would benefit from MRI but not able to obtain due to vent. Continue sepsis treatment Unable to be weaned off vent, status post trach Had respiratory intstability overnight, stabilized Continued medical management for multiple complications More somnolent today Encourage continued close monitoring, patient with prolonged hospitalization Prognosis guarded
[2016-08-18] MEDS ORDERED: INSULIN (NOVOLOG) ASPART 100 UNITS/ML 10ML VIAL ONE ×2 (12:28→18:44)
[2016-08-18] MEDS: FENTANYL PATCH WASTE TD PRN (12:50)
[2016-08-18] MEDS: fentaNYL 25mcg/hr PATCH.TD72 TD SCH (12:51)
--- NOTE | 2016-08-18 12:51 | PN ---
Progress Note (short form) - Note Progress Note: Events from overnight noted. Remains on AC mode of vent. I adjusted her vent settings. 40% FiO2. Intake & Output 08/15/16 08/16/16 08/17/16 08/18/16 23:59 23:59 23:59 23:59 Intake Total 2782.5 2556 2496.5 1203.5 Output Total 2500 2400 1700 Balance 282.5 156 796.5 1203.5 Last Vital Signs Temp Pulse Resp BP Pulse Ox 100.8 F H 110 H 22 150/60 92 L 08/18/16 11:30 08/18/16 11:30 08/18/16 11:30 08/18/16 11:30 08/17/16 09:00 Active Medications Acetaminophen (Ofirmev Injection -) 1,000 mg IVPB Q6H PRN PRN Reason: FEVER Last Admin: 08/18/16 06:19 Dose: 1,000 mg Albuterol/Ipratropium (Duoneb -) 1 amp NEB QIDR [facility] Last Admin: 08/18/16 11:15 Dose: 1 amp Chlorhexidine Gluconate (Peridex -) 15 ml MM BID [facility] Last Admin: 08/18/16 11:26 Dose: 15 ml Dextrose (D50w (Vial) -) 50 ml IVPUSH Q15M PRN PRN Reason: BLOOD SUGAR < 60 Enoxaparin Sodium (Lovenox -) 40 mg SQ BID [facility] Last Admin: 08/18/16 11:07 Dose: 40 mg Fentanyl (Duragesic 25mcg Patch -) 1 patch TD Q72H [facility] Stop: 08/19/16 11:59 Last Admin: 08/15/16 11:31 Dose: 1 patch Furosemide (Lasix Injection -) 20 mg IVPB DAILY [facility] Last Admin: 08/17/16 12:11 Dose: 20 mg Clindamycin Phosphate (Cleocin 300 Mg Premix Ivpb) 50 mls @ 100 mls/hr IVPB Q8H -IV [facility] Last Admin: 08/18/16 12:48 Dose: 100 mls/hr Fat Emulsion Intravenous (Intralipid -) 250 mls @ 20.833 mls/hr IV DAILY@2200 [facility] Last Admin: 08/17/16 23:01 Dose: 20.833 mls/hr Levofloxacin (Levaquin 750 Mg Premixed Ivpb -) 150 mls @ 100 mls/hr IVPB DAILY [facility] Last Admin: 08/17/16 14:16 Dose: 100 mls/hr Meropenem 1 gm/ Dextrose 100 mls @ 100 mls/hr IVPB Q8H-IV [facility] PRN Reason: Protocol Last Admin: 08/18/16 11:28 Dose: 100 mls/hr Famotidine/Sodium Chloride (Pepcid 20 Mg Premixed Ivpb -) 50 mls @ 100 mls/hr IVPB BID [facility] Last Admin: 08/17/16 23:02 Dose: 100 mls/hr Fluconazole (Diflucan 200 Mg/D5w Premixed Ivpb -) 100 mls @ 100 mls/hr IVPB DAILY [facility] Last Admin: 08/17/16 13:09 Dose: 100 mls/hr Magnesium Sulfate 4 gm/Insulin Human Regular 20 units / Thiamine HCl 100 mg/ Sodium Chloride 30 meq/ Potassium Chloride 10 meq/ Multivitamins /Minerals 10 ml / Potassium Phosphate 40 mm/ Folic Acid 1 mg/ Sterile Water/ Amino Acids / Dextrose 1,500 mls @ 62.5 mls/hr IVPB DAILY@1600 [facility] Last Admin: 08/17/16 18:03 Dose: 62.5 mls/hr Insulin Aspart (Novolog Vial Sliding Scale -) 1 vial SQ ACHS [facility] PRN Reason: Protocol Last Admin: 08/18/16 12:48 Dose: 4 units Miscellaneous (Duragesic Patch Waste) 1 each TD PRN PRN PRN Reason: PAIN Morphine Sulfate (Morphine Injection -) 2 mg IVPUSH Q4H PRN PRN Reason: PAIN Last Admin: 08/17/16 13:05 Dose: 2 mg Gen: Trached, arousable Heart: RRR Lung: scattered rhonchi Abd: soft, dressings intact Ext: cold, hypoperfused, blackened Laboratory Results - last 24 hr 08/17/16 08/17/16 08/18/16 16:26 23:41 01:07 WBC RBC Hgb Hct MCV MCHC RDW Plt Count MPV Neutrophils % Lymphocytes % Monocytes % Eosinophils % Basophils % Band Neutrophils Hypochromic-Microcytic Anisocytosis Puncture Site ABG pH ABG pCO2 at Pt Temp ABG pO2 at Pt Temp ABG HCO3 ABG O2 Sat (Measured) ABG O2 Content ABG Base Excess Heber Test O2 Delivery Device Oxygen Flow Rate Vent Mode Vent Rate Mechanical Rate PEEP Pressure Support Vent Sodium Potassium Chloride Carbon Dioxide Anion Gap BUN Creatinine Creat Clearance w eGFR POC Glucometer 240 221 Random Glucose Lactic Acid 1.0 Calcium Total Bilirubin AST ALT Alkaline Phosphatase Creatine Kinase Troponin I Total Protein Albumin 08/18/16 08/18/16 08/18/16 01:30 01:37 01:37 WBC 20.5 H RBC 2.64 L Hgb 7.4 L Hct 23.2 L MCV 87.9 MCHC 31.7 L RDW 14.5 Plt Count 602 H MPV 7.3 L Neutrophils % 76.0 Lymphocytes % 11.0 D Monocytes % 10.0 Eosinophils % 2.0 Basophils % Band Neutrophils 1.0 Hypochromic-Microcytic 1+ Anisocytosis 1+ Puncture Site Left radial ABG pH 7.20 L* D ABG pCO2 at Pt Temp 76.5 H* D ABG pO2 at Pt Temp 194.0 H* ABG HCO3 28.6 H ABG O2 Sat (Measured) 99.0 H ABG O2 Content 14.4 L ABG Base Excess -0.4 Heber Test Positive O2 Delivery Device Vent Oxygen Flow Rate 40 Vent Mode A/c Vent Rate 14 Mechanical Rate Yes PEEP 5.0 Pressure Support Vent 350 Sodium 135 L Potassium 4.8 Chloride 98 Carbon Dioxide 29 Anion Gap 8 BUN 21 H D Creatinine 0.3 L Creat Clearance w eGFR > 60 POC Glucometer Random Glucose 199 H Lactic Acid Calcium 8.7 Total Bilirubin 0.3 D AST 23 ALT 20 Alkaline Phosphatase 198 H Creatine Kinase Troponin I Total Protein 6.8 Albumin 1.2 L 08/18/16 08/18/16 08/18/16 01:37 02:00 06:17 WBC RBC Hgb Hct MCV MCHC RDW Plt Count MPV Neutrophils % Lymphocytes % Monocytes % Eosinophils % Basophils % Band Neutrophils Hypochromic-Microcytic Anisocytosis Puncture Site Left radial ABG pH 7.29 L ABG pCO2 at Pt Temp 59.5 H D ABG pO2 at Pt Temp 258.0 H* ABG HCO3 28.0 H ABG O2 Sat (Measured) 99.8 H* ABG O2 Content 10.7 L ABG Base Excess 1.7 Heber Test Positive O2 Delivery Device Vent Oxygen Flow Rate 60 Vent Mode A/c Vent Rate 18 Mechanical Rate Yes PEEP 5.0 Pressure Support Vent 400 Sodium Potassium Chloride Carbon Dioxide Anion Gap BUN Creatinine Creat Clearance w eGFR POC Glucometer 232 Random Glucose Lactic Acid Calcium Total Bilirubin AST ALT Alkaline Phosphatase Creatine Kinase 35 Troponin I 0.03 Total Protein Albumin 08/18/16 08/18/16 08/18/16 06:30 06:30 12:25 WBC 21.7 H RBC 2.50 L Hgb 7.2 L Hct 22.1 L MCV 88.7 MCHC 32.4 RDW 14.5 Plt Count 535 H MPV 7.4 L Neutrophils % 81.6 Lymphocytes % 5.5 L D Monocytes % 10.7 H Eosinophils % 1.5 Basophils % 0.7 Band Neutrophils Hypochromic-Microcytic Anisocytosis Puncture Site ABG pH ABG pCO2 at Pt Temp ABG pO2 at Pt Temp ABG HCO3 ABG O2 Sat (Measured) ABG O2 Content ABG Base Excess Heber Test O2 Delivery Device Oxygen Flow Rate Vent Mode Vent Rate Mechanical Rate PEEP Pressure Support Vent Sodium 135 L Potassium 5.4 H Chloride 98 Carbon Dioxide 30 Anion Gap 7 L BUN 22 H Creatinine 0.3 L Creat Clearance w eGFR > 60 POC Glucometer 213 Random Glucose 217 H Lactic Acid Calcium 9.0 Total Bilirubin 0.3 AST 22 ALT 19 Alkaline Phosphatase 183 H Creatine Kinase Troponin I Total Protein 6.6 Albumin 1.2 L ASSESSMENT AND PLAN: Perforated Duodenal Ulcer Peritonitis s/p ex-lap/omental patch repair 07/16 Acute Respiratory Failure Septic Shock Acute Kidney Injury Lactic Acidosis Leukopenia/Thrombocytopenia likely from sepsis DM Encephalopathy -> etiology to be determined - Vent settings were adjusted to address hypercapnia - ABX per ID - monitor urine output, creatinine - taper FiO2 to keep Spo2 >90% - transfuse platelets if <20K, cryo if fibrinogen <100 - DVT/GI prophylaxis - Would continue family discussions regarding GOC Dr Dubon
[2016-08-18] MEDS: morphine CARPU-JECT 2 MG/1 ML DISP.SYRIN IVPUSH PRN ×3 (13:03→23:21)
[2016-08-18] MEDS: FAMOTIDINE 20 MG/50 ML IVPB 50 ML IVPB SCH ×2 (13:17→22:21)
[2016-08-18] MEDS: FUROSEMIDE 40 MG/4 ML INJECTABLE VIAL IVPB SCH (14:01)
--- NOTE | 2016-08-18 14:50 | PN ---
Progress Note, Physician History of Present Illness: patient continues to spike low grade temp mentally she is awake on vent trach' still with suctioning - Current Medication List Current Medications: Active Medications Acetaminophen (Ofirmev Injection -) 1,000 mg IVPB Q6H PRN PRN Reason: FEVER Last Admin: 08/18/16 06:19 Dose: 1,000 mg Albuterol/Ipratropium (Duoneb -) 1 amp NEB QIDR [facility] Last Admin: 08/18/16 11:15 Dose: 1 amp Chlorhexidine Gluconate (Peridex -) 15 ml MM BID [facility] Last Admin: 08/18/16 11:26 Dose: 15 ml Dextrose (D50w (Vial) -) 50 ml IVPUSH Q15M PRN PRN Reason: BLOOD SUGAR < 60 Enoxaparin Sodium (Lovenox -) 40 mg SQ BID [facility] Last Admin: 08/18/16 11:07 Dose: 40 mg Fentanyl (Duragesic 25mcg Patch -) 1 patch TD Q72H [facility] Stop: 08/19/16 11:59 Last Admin: 08/18/16 12:51 Dose: 1 patch Furosemide (Lasix Injection -) 20 mg IVPB DAILY [facility] Last Admin: 08/18/16 14:01 Dose: 20 mg Fat Emulsion Intravenous (Intralipid -) 250 mls @ 20.833 mls/hr IV DAILY@2200 [facility] Last Admin: 08/17/16 23:01 Dose: 20.833 mls/hr Levofloxacin (Levaquin 750 Mg Premixed Ivpb -) 150 mls @ 100 mls/hr IVPB DAILY [facility] Last Admin: 08/17/16 14:16 Dose: 100 mls/hr Meropenem 1 gm/ Dextrose 100 mls @ 100 mls/hr IVPB Q8H-IV [facility] PRN Reason: Protocol Last Admin: 08/18/16 11:28 Dose: 100 mls/hr Famotidine/Sodium Chloride (Pepcid 20 Mg Premixed Ivpb -) 50 mls @ 100 mls/hr IVPB BID [facility] Last Admin: 08/18/16 13:17 Dose: 100 mls/hr Fluconazole (Diflucan 200 Mg/D5w Premixed Ivpb -) 100 mls @ 100 mls/hr IVPB DAILY [facility] Last Admin: 08/17/16 13:09 Dose: 100 mls/hr Magnesium Sulfate 4 gm/Insulin Human Regular 20 units / Thiamine HCl 100 mg/ Sodium Chloride 30 meq/ Potassium Chloride 10 meq/ Multivitamins /Minerals 10 ml / Potassium Phosphate 40 mm/ Folic Acid 1 mg/ Sterile Water/ Amino Acids / Dextrose 1,500 mls @ 62.5 mls/hr IVPB DAILY@1600 [facility] Last Admin: 08/17/16 18:03 Dose: 62.5 mls/hr Insulin Aspart (Novolog Vial Sliding Scale -) 1 vial SQ ACHS [facility] PRN Reason: Protocol Last Admin: 08/18/16 12:48 Dose: 4 units Miscellaneous (Duragesic Patch Waste) 1 each TD PRN PRN PRN Reason: PAIN Last Admin: 08/18/16 12:50 Dose: 1 each Morphine Sulfate (Morphine Injection -) 2 mg IVPUSH Q4H PRN PRN Reason: PAIN Last Admin: 08/18/16 13:03 Dose: 2 mg - Objective Vital Signs: Vital Signs Temperature 100.8 F H 08/18/16 11:30 Pulse Rate 108 H 08/18/16 14:00 Respiratory Rate 18 08/18/16 14:00 Blood Pressure 120/60 08/18/16 14:00 O2 Sat by Pulse Oximetry (%) 92 L 08/17/16 09:00 Constitutional: Yes: Calm Cardiovascular: Yes: Regular Rate and Rhythm Respiratory: Yes: Mechanically Ventilated, Other (thick secretions) Musculoskeletal: Yes: Other Extremities: Yes: Other (mummification) Neurological: Yes: Alert, Other Psychiatric: Yes: Alert Labs: CBC, BMP 08/18/16 06:30 08/18/16 06:30 INR, PTT INR 1.50 (0.82-1.09) H 08/09/16 11:30 Fibrinogen > 700.0 mg/dL (238-498) H 07/31/16 05:40 Assessment/Plan Problem List - Problems (1) Abdominal pain Code(s): R10.9 - UNSPECIFIED ABDOMINAL PAIN Qualifiers: Qualified Code(s): R10.33 - Periumbilical pain (2) Perforated abdominal viscus Code(s): [id number] - (3) Perforated viscus Code(s): R19.8 - OTH SYMPTOMS AND SIGNS INVOLVING THE DGSTV SYS AND ABDOMEN (4) Hypertension Code(s): I10 - ESSENTIAL (PRIMARY) HYPERTENSION Qualifiers: Qualified Code(s): I10 - Essential (primary) hypertension lactic acidosis fevers generalized swelling gangrene of the tip of the fingers noted pseudomonas pneumonia plan continue current mgmt continue suctioning sputum cx noted patient is now growing pseudomonas inspite of meropenam will await for sensitivities once we have sensitivities then we will decide further mgmt
[2016-08-18] MEDS: FLUCONAZOLE 200 MG/D5W 100 ML IVPB SCH (14:54)
--- NOTE | 2016-08-18 15:00 | PN ---
Progress Note, Physician Chief Complaint: Remained at her base line , low grade fever , opens eye to verbal command History of Present Illness: 65-year-old F H/O hypertension, hypercholesterolemia, T2DM, ETOH abuse, was presented to ED with abd pain and wt loss underwent exploratory laprotomy for perforated duodenal ulcer on 07/21/16 developed hypotention and sepsis intubate now on trach, colostomy and TPN. - Current Medication List Current Medications: Active Medications Acetaminophen (Ofirmev Injection -) 1,000 mg IVPB Q6H PRN PRN Reason: FEVER Last Admin: 08/18/16 06:19 Dose: 1,000 mg Albuterol/Ipratropium (Duoneb -) 1 amp NEB QIDR [facility] Last Admin: 08/18/16 11:15 Dose: 1 amp Chlorhexidine Gluconate (Peridex -) 15 ml MM BID [facility] Last Admin: 08/18/16 11:26 Dose: 15 ml Dextrose (D50w (Vial) -) 50 ml IVPUSH Q15M PRN PRN Reason: BLOOD SUGAR < 60 Enoxaparin Sodium (Lovenox -) 40 mg SQ BID [facility] Last Admin: 08/18/16 11:07 Dose: 40 mg Fentanyl (Duragesic 25mcg Patch -) 1 patch TD Q72H [facility] Stop: 08/19/16 11:59 Last Admin: 08/18/16 12:51 Dose: 1 patch Furosemide (Lasix Injection -) 20 mg IVPB DAILY [facility] Last Admin: 08/18/16 14:01 Dose: 20 mg Fat Emulsion Intravenous (Intralipid -) 250 mls @ 20.833 mls/hr IV DAILY@2200 [facility] Last Admin: 08/17/16 23:01 Dose: 20.833 mls/hr Levofloxacin (Levaquin 750 Mg Premixed Ivpb -) 150 mls @ 100 mls/hr IVPB DAILY [facility] Last Admin: 08/17/16 14:16 Dose: 100 mls/hr Meropenem 1 gm/ Dextrose 100 mls @ 100 mls/hr IVPB Q8H-IV [facility] PRN Reason: Protocol Last Admin: 08/18/16 11:28 Dose: 100 mls/hr Famotidine/Sodium Chloride (Pepcid 20 Mg Premixed Ivpb -) 50 mls @ 100 mls/hr IVPB BID [facility] Last Admin: 08/18/16 13:17 Dose: 100 mls/hr Fluconazole (Diflucan 200 Mg/D5w Premixed Ivpb -) 100 mls @ 100 mls/hr IVPB DAILY [facility] Last Admin: 08/18/16 14:54 Dose: 100 mls/hr Magnesium Sulfate 4 gm/Insulin Human Regular 20 units / Thiamine HCl 100 mg/ Sodium Chloride 30 meq/ Potassium Chloride 10 meq/ Multivitamins /Minerals 10 ml / Potassium Phosphate 40 mm/ Folic Acid 1 mg/ Sterile Water/ Amino Acids / Dextrose 1,500 mls @ 62.5 mls/hr IVPB DAILY@1600 [facility] Last Admin: 08/17/16 18:03 Dose: 62.5 mls/hr Insulin Aspart (Novolog Vial Sliding Scale -) 1 vial SQ ACHS [facility] PRN Reason: Protocol Last Admin: 08/18/16 12:48 Dose: 4 units Miscellaneous (Duragesic Patch Waste) 1 each TD PRN PRN PRN Reason: PAIN Last Admin: 08/18/16 12:50 Dose: 1 each Morphine Sulfate (Morphine Injection -) 2 mg IVPUSH Q4H PRN PRN Reason: PAIN Last Admin: 08/18/16 13:03 Dose: 2 mg - Objective Vital Signs: Vital Signs Temperature 100.8 F H 08/18/16 11:30 Pulse Rate 108 H 08/18/16 14:00 Respiratory Rate 18 08/18/16 14:00 Blood Pressure 120/60 08/18/16 14:00 O2 Sat by Pulse Oximetry (%) 92 L 08/17/16 09:00 Patient remained altered minimally responsive HEENT: Trach at the place, need intermittent Vent support, mm most, anemia NECK; IJJ at place, no JVD CHEST: Good AE minimal crepts ABD; discharge from stoma, exudative collection EXT; extensive edema, skin peeling and gangrene of distal extremities 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 Derm; extensive skin peeling and gangrene of fingers and toes, p Labs: CBC, BMP 08/18/16 06:30 08/18/16 06:30 INR, PTT INR 1.50 (0.82-1.09) H 08/09/16 11:30 Fibrinogen > 700.0 mg/dL (238-498) H 07/31/16 05:40 Problem List - Problems (1) Perforated abdominal viscus Assessment/Plan: Patient present with Rt UQ pain and with free air, Duodenal ulcer perforation s /p surgery. now fistula formation draining exudates. Code(s): [id number] - (2) Acute metabolic encephalopathy Assessment/Plan: Secondary to hypoperfusion due to septic shock, at present gradually improving. Code(s): G93.41 - METABOLIC ENCEPHALOPATHY (3) Metabolic acidosis Assessment/Plan: Improved Code(s): E87.2 - ACIDOSIS (4) ZAHIRA (acute kidney injury) Assessment/Plan: Resolved Code(s): N17.9 - ACUTE KIDNEY FAILURE, UNSPECIFIED (5) Thrombocytopenia Assessment/Plan: Due to sepsis, Platelet count improved Code(s): D69.6 - THROMBOCYTOPENIA, UNSPECIFIED (6) Ischemia of extremity Assessment/Plan: Ischemia off all extremities due to prolonged vasopressor use, patient needs pressure to maintain BP Code(s): I99.8 - OTHER DISORDER OF CIRCULATORY SYSTEM (7) Sepsis Assessment/Plan: Due to perforated gastric ulcer on abx and pressors. Prognosis is guarded. Code(s): A41.9 - SEPSIS, UNSPECIFIED ORGANISM
[2016-08-18] MEDS: LEVOFLOXACIN 750 MG IVPB 150 ML IVPB SCH (15:58)
--- NOTE | 2016-08-18 16:29 | PN ---
Progress Note, Physician - Current Medication List Current Medications: Active Medications Acetaminophen (Ofirmev Injection -) 1,000 mg IVPB Q6H PRN PRN Reason: FEVER Last Admin: 08/18/16 06:19 Dose: 1,000 mg Albuterol/Ipratropium (Duoneb -) 1 amp NEB QIDR [facility] Last Admin: 08/18/16 11:15 Dose: 1 amp Chlorhexidine Gluconate (Peridex -) 15 ml MM BID [facility] Last Admin: 08/18/16 11:26 Dose: 15 ml Dextrose (D50w (Vial) -) 50 ml IVPUSH Q15M PRN PRN Reason: BLOOD SUGAR < 60 Enoxaparin Sodium (Lovenox -) 40 mg SQ BID [facility] Last Admin: 08/18/16 11:07 Dose: 40 mg Fentanyl (Duragesic 25mcg Patch -) 1 patch TD Q72H [facility] Stop: 08/19/16 11:59 Last Admin: 08/18/16 12:51 Dose: 1 patch Furosemide (Lasix Injection -) 20 mg IVPB DAILY [facility] Last Admin: 08/18/16 14:01 Dose: 20 mg Fat Emulsion Intravenous (Intralipid -) 250 mls @ 20.833 mls/hr IV DAILY@2200 [facility] Last Admin: 08/17/16 23:01 Dose: 20.833 mls/hr Levofloxacin (Levaquin 750 Mg Premixed Ivpb -) 150 mls @ 100 mls/hr IVPB DAILY [facility] Last Admin: 08/18/16 15:58 Dose: 100 mls/hr Meropenem 1 gm/ Dextrose 100 mls @ 100 mls/hr IVPB Q8H-IV [facility] PRN Reason: Protocol Last Admin: 08/18/16 11:28 Dose: 100 mls/hr Famotidine/Sodium Chloride (Pepcid 20 Mg Premixed Ivpb -) 50 mls @ 100 mls/hr IVPB BID [facility] Last Admin: 08/18/16 13:17 Dose: 100 mls/hr Fluconazole (Diflucan 200 Mg/D5w Premixed Ivpb -) 100 mls @ 100 mls/hr IVPB DAILY [facility] Last Admin: 08/18/16 14:54 Dose: 100 mls/hr Magnesium Sulfate 4 gm/Insulin Human Regular 20 units / Thiamine HCl 100 mg/ Sodium Chloride 30 meq/ Potassium Chloride 10 meq/ Multivitamins /Minerals 10 ml / Potassium Phosphate 40 mm/ Folic Acid 1 mg/ Sterile Water/ Amino Acids / Dextrose 1,500 mls @ 62.5 mls/hr IVPB DAILY@1600 [facility] Last Admin: 08/17/16 18:03 Dose: 62.5 mls/hr Insulin Aspart (Novolog Vial Sliding Scale -) 1 vial SQ ACHS [facility] PRN Reason: Protocol Last Admin: 08/18/16 12:48 Dose: 4 units Miscellaneous (Duragesic Patch Waste) 1 each TD PRN PRN PRN Reason: PAIN Last Admin: 08/18/16 12:50 Dose: 1 each Morphine Sulfate (Morphine Injection -) 2 mg IVPUSH Q4H PRN PRN Reason: PAIN Last Admin: 08/18/16 13:03 Dose: 2 mg - Objective Vital Signs: Vital Signs Temperature 100.6 F H 08/18/16 15:45 Pulse Rate 104 H 08/18/16 15:45 Respiratory Rate 20 08/18/16 15:45 Blood Pressure 112/58 08/18/16 15:45 O2 Sat by Pulse Oximetry (%) 92 L 08/17/16 09:00 Labs: CBC, BMP 08/18/16 06:30 08/18/16 06:30 INR, PTT INR 1.50 (0.82-1.09) H 08/09/16 11:30 Fibrinogen > 700.0 mg/dL (238-498) H 07/31/16 05:40 Problem List - Problems (1) Abdominal pain Code(s): R10.9 - UNSPECIFIED ABDOMINAL PAIN Qualifiers: Abdominal location: periumbilical Qualified Code(s): R10.33 - Periumbilical pain (2) Perforated abdominal viscus Code(s): [id number] - (3) Perforated viscus Code(s): R19.8 - OTH SYMPTOMS AND SIGNS INVOLVING THE DGSTV SYS AND ABDOMEN (4) Hypertension Code(s): I10 - ESSENTIAL (PRIMARY) HYPERTENSION Qualifiers: Hypertension type: essential hypertension Qualified Code(s): I10 - Essential (primary) hypertension Assessment/Plan surgery: Patient is on a ventilator, has some drainage from drain site. Unable to feed the patient , consider placing feeding tube beyond the pylorus, by g.I.for enteral feeding. Will requset g.i.
--- NOTE | 2016-08-18 17:03 | PN ---
Progress Note (short form) - Note Progress Note: Renal Follow up for ZAHIRA/Metabolic acidosis Pt seen and examined at the bedside on Vent on TPN Chart reviewed Vital Signs Temperature 100.6 F H 08/18/16 15:45 Pulse Rate 104 H 08/18/16 15:45 Respiratory Rate 20 08/18/16 15:45 Blood Pressure 112/58 08/18/16 15:45 O2 Sat by Pulse Oximetry (%) 92 L 08/17/16 09:00 Gen: on Vent, NAD CVS: RRR, No M/R Lungs: Dec BS b/l lung andino Abd: Dressing on Abd, Ostomy in place, Ext: 2+ edema in LE CBC, BMP 08/18/16 06:30 08/18/16 06:30 Current Medications Acetaminophen (Ofirmev Injection -) 1,000 mg IVPB Q6H PRN PRN Reason: FEVER Last Admin: 08/18/16 06:19 Dose: 1,000 mg Albuterol/Ipratropium (Duoneb -) 1 amp NEB QIDR [facility] Last Admin: 08/18/16 11:15 Dose: 1 amp Chlorhexidine Gluconate (Peridex -) 15 ml MM BID [facility] Last Admin: 08/18/16 11:26 Dose: 15 ml Dextrose (D50w (Vial) -) 50 ml IVPUSH Q15M PRN PRN Reason: BLOOD SUGAR < 60 Enoxaparin Sodium (Lovenox -) 40 mg SQ BID [facility] Last Admin: 08/18/16 11:07 Dose: 40 mg Fentanyl (Duragesic 25mcg Patch -) 1 patch TD Q72H [facility] Stop: 08/19/16 11:59 Last Admin: 08/18/16 12:51 Dose: 1 patch Furosemide (Lasix Injection -) 20 mg IVPB DAILY [facility] Last Admin: 08/18/16 14:01 Dose: 20 mg Fat Emulsion Intravenous (Intralipid -) 250 mls @ 20.833 mls/hr IV DAILY@2200 [facility] Last Admin: 08/17/16 23:01 Dose: 20.833 mls/hr Levofloxacin (Levaquin 750 Mg Premixed Ivpb -) 150 mls @ 100 mls/hr IVPB DAILY [facility] Last Admin: 08/18/16 15:58 Dose: 100 mls/hr Meropenem 1 gm/ Dextrose 100 mls @ 100 mls/hr IVPB Q8H-IV [facility] PRN Reason: Protocol Last Admin: 08/18/16 11:28 Dose: 100 mls/hr Famotidine/Sodium Chloride (Pepcid 20 Mg Premixed Ivpb -) 50 mls @ 100 mls/hr IVPB BID [facility] Last Admin: 08/18/16 13:17 Dose: 100 mls/hr Fluconazole (Diflucan 200 Mg/D5w Premixed Ivpb -) 100 mls @ 100 mls/hr IVPB DAILY [facility] Last Admin: 08/18/16 14:54 Dose: 100 mls/hr Magnesium Sulfate 4 gm/Insulin Human Regular 20 units / Thiamine HCl 100 mg/ Sodium Chloride 30 meq/ Potassium Chloride 10 meq/ Multivitamins /Minerals 10 ml / Potassium Phosphate 40 mm/ Folic Acid 1 mg/ Sterile Water/ Amino Acids / Dextrose 1,500 mls @ 62.5 mls/hr IVPB DAILY@1600 [facility] Last Admin: 08/17/16 18:03 Dose: 62.5 mls/hr Insulin Aspart (Novolog Vial Sliding Scale -) 1 vial SQ ACHS [facility] PRN Reason: Protocol Last Admin: 08/18/16 12:48 Dose: 4 units Miscellaneous (Duragesic Patch Waste) 1 each TD PRN PRN PRN Reason: PAIN Last Admin: 08/18/16 12:50 Dose: 1 each Morphine Sulfate (Morphine Injection -) 2 mg IVPUSH Q4H PRN PRN Reason: PAIN Last Admin: 08/18/16 13:03 Dose: 2 mg A/P 65 year old woman with PMhx of hypertension, hypercholesterolemia, diabetes mellitus who presented with Abd pain and found to have perforated Abd viscus s/ p emergent Sx now with Septic Shock, ZAHIRA and Metabolic Acidosis. #Sepsis/Perforated Abd Viscus/Abscess management as per Sx/ID #NPO on TPN/Electrolyte abnormalities continue TPN will reduce K content in TPN as pt iwth mild hyperkalmiea Trend electrolytes dailsy #Edema from 3rd spacing continue TPN for nutritional support continue Lasix daily prognosis remains guarded Cyril Tubbs DO
[2016-08-18] MEDS: INSULIN REGULAR IVPB SCH (18:12)
[2016-08-18] MEDS: [UNRECOGNIZED DRUG - OTHER] IVPB SCH (18:12)
[2016-08-18] MEDS: THIAMINE HCL IVPB SCH (18:12)
[2016-08-18] MEDS: MAGNESIUM SULFATE IVPB SCH (18:12)
[2016-08-18] MEDS: FAT EMULSIONS 250 ML IV SCH (22:20)
[2016-08-19] MEDS: MEROPENEM 1 GM in DEXTROSE 5%-WATER - 100 ML IVPB SCH ×2 (01:21→09:45)
[2016-08-19] MEDS: ACETAMINOPHEN 1000 MG/100 ML VIAL (NON FORMULARY) IVPB PRN ×2 (01:24→12:28)
[2016-08-19] MEDS: morphine CARPU-JECT 2 MG/1 ML DISP.SYRIN IVPUSH PRN ×3 (03:07→16:46)
[2016-08-19] MEDS: INSULIN SLIDING SCALE (NOVOLOG) 1 VIAL SQ SCH ×3 (06:04→18:21)
[2016-08-19] MEDS: ALBUTEROL SO4 2.5/IPRATROPIUM 0.5 INH SOL 3 ML VIAL.NEB. NEB SCH ×4 (06:15→17:13)
[2016-08-19 07:44] LABS: MCH 28.7 pg (25.7-33.7); MCHC 32.9 g/dl (32.0-36.0); MEAN CELL VOLUME 87.3 fl (80-96); MEAN PLT VOLUME 7.7 fl (7.5-11.1); PLATELET COUNT 520 K/MM3 (134-434); RDW 14.6 % (11.6-15.6); WHITE BLOOD COUNT 14.2 K/mm3 (4.0-10.0)
[2016-08-19 08:11] LABS: ALBUMIN 1.2 g/dl (3.4-5.0); ANION GAP 9 (8-16); CALCIUM 8.7 mg/dL (8.5-10.1); CO2 29 mmol/L (21-32); GLUCOSE,RANDOM 192 mg/dL (74-106)
[2016-08-19 08:15] LABS: ALK PHOS 165 U/L (45-117); BILIRUBIN,TOTAL 0.3 mg/dL (0.2-1.0); CREATININE 0.3 mg/dL (0.55-1.02); PHOSPHOROUS 3.1 mg/dL (2.5-4.9); SGOT/AST 20 U/L (15-37); SGPT/ALT 18 U/L (12-78)
[2016-08-19] MEDS ORDERED: PT OWN MED DRAWER 7, Y5N ONE ×2 (09:14→11:00)
[2016-08-19 09:38] LABS: PLATELET ESTIMATE INCREASED (NORMAL)
[2016-08-19] MEDS: FUROSEMIDE 40 MG/4 ML INJECTABLE VIAL IVPB SCH (11:21)
[2016-08-19] MEDS: ENOXAPARIN NA (PORCINE) 40 MG/0.4 ML DISP.SYRIN SQ SCH (11:23)
[2016-08-19] MEDS: CHLORHEXIDINE GLUCONATE 0.12% 15ML CUP MM SCH ×2 (11:23→22:36)
[2016-08-19] MEDS ORDERED: INSULIN (NOVOLOG) ASPART 100 UNITS/ML 10ML VIAL ONE ×2 (12:06→19:22)
[2016-08-19] MEDS: FAMOTIDINE 20 MG/50 ML IVPB 50 ML IVPB SCH ×2 (13:17→22:35)
--- NOTE | 2016-08-19 14:08 | PN ---
Progress Note (short form) - Note Progress Note: Neurology History of Present Illness The patient is a 65-year-old woman, with a significant past medical history of hypertension, hypercholesterolemia, diabetes mellitus and GI disorders who presented to the emergency department via walk-in for further evaluation of abdominal pain for the past 3-4 days with unintentional 20 lb weight loss over the past three months. She required surgical intervention as documented by Dr. Louise. Thereafter, complicated course and patient in ICU, off sedation for several days. CT head without acute changes. Patient was not awakening initially and concern was hypoperfusion and possible anoxic brain injury. 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 Since, has awoken and is keeps eye open, occasional tracking and previously occasional spontaneous extremity movement but minimal now. Does have notable gangrene of fingers and toes. protecting airway and remains intubated and on vent, status post trach as she was not able to tolerate weaning. Toxic metabolic vs hypoperfusion and anoxic brain injury. Would benefit from MRI but not able to obtain due to vent. Has sepsis and getting ongoing treatment. Previously opening mouth and sticking out tongue to command but no significant cognitive activity at this time. Has been downgraded from ICU to floor status and minimal activity. *Physical Exam Last Vital Signs Temp Pulse Resp BP Pulse Ox 101.5 F H 104 H 16 130/60 92 L 08/19/16 11:54 08/19/16 11:07 08/19/16 11:07 08/19/16 11:07 08/17/16 09:00 GENERAL: Awake Frail appearing. HEENT: Normocephalic, atraumatic. +Temporal wasting. PERRL, EOMI. No conjunctival pallor. +Sclera are icteric. +Dry mucous membranes. Oropharynx is clear. NECK: Supple. Full ROM. No JVD. CARDIOVASCULAR: Tachycardic rate but regular rate and rhythm. No murmurs, rubs, or gallops. PULMONARY: +Diffuse dyspneic breath sounds that are equal bilaterally. No wheezing, crackles or rhonchi. ABDOMINAL: Firm but soft abdomen. Diffuse tenderness to palpation without rebound or guarding. Non-distended. No organomegaly. Normoactive bowel sounds. MUSCULOSKELETAL: Normal range of motion at all joints. No bony deformities or tenderness. No CVA tenderness. EXTREMITIES: No cyanosis. No clubbing. No edema. No calf tenderness. SKIN: Tenting of the skin. Jaundiced. No rashes. NEUROLOGICAL: Trached, ventilation, opens eyes and minimal movement of extremities but not cooperating with confrontation testing, withdraws to pain, not following complex commands, not tracking CBCD WBC 14.2 K/mm3 (4.0-10.0) H D 08/19/16 05:30 RBC 2.32 M/mm3 (3.60-5.2) L 08/19/16 05:30 Hgb 6.7 GM/dL (10.7-15.3) L* 08/19/16 05:30 Hct 20.3 % (32.4-45.2) L 08/19/16 05:30 MCV 87.3 fl (80-96) 08/19/16 05:30 MCHC 32.9 g/dl (32.0-36.0) 08/19/16 05:30 RDW 14.6 % (11.6-15.6) 08/19/16 05:30 Plt Count 520 K/MM3 (134-434) H 08/19/16 05:30 MPV 7.7 fl (7.5-11.1) 08/19/16 05:30 CMP Sodium 135 mmol/L (136-145) L 08/19/16 05:30 Potassium 4.6 mmol/L (3.5-5.1) 08/19/16 05:30 Chloride 97 mmol/L (98-107) L 08/19/16 05:30 Carbon Dioxide 29 mmol/L (21-32) 08/19/16 05:30 Anion Gap 9 (8-16) 08/19/16 05:30 BUN 21 mg/dL (7-18) H 08/19/16 05:30 Creatinine 0.3 mg/dL (0.55-1.02) L 08/19/16 05:30 Creat Clearance w eGFR > 60 (>60) 08/19/16 05:30 Calcium 8.7 mg/dL (8.5-10.1) 08/19/16 05:30 Total Bilirubin 0.3 mg/dL (0.2-1.0) 08/19/16 05:30 AST 20 U/L (15-37) 08/19/16 05:30 ALT 18 U/L (12-78) 08/19/16 05:30 Alkaline Phosphatase 165 U/L (45-117) H 08/19/16 05:30 Total Protein 6.0 g/dl (6.4-8.2) L 08/19/16 05:30 Albumin 1.2 g/dl (3.4-5.0) L 08/19/16 05:30 EXAM: CT/HEAD CT WITHOUT CONTRAST IMPRESSION: Comparison study MRI of the brain February 23, 2015. Findings. Serial axial images of the brain were obtained from foramen magnum to the cranial vertex without intravenous contrast, with coronal, sagittal reconstruction images. No evidence of hydrocephalus, acute subarachnoid hemorrhage, acute intra-axial or extra-axial fluid collection consistent with subdural or epidural hematoma. No mass effect, midline shift, acute ischemic changes, herniation or edema is present. Normal yancey matter white matter differentiation. The cortical sulci, sylvian fissures, perimesencephalic cisterns are not effaced. The CSF spaces are age-appropriate. Supratentorial periventricular chronic white matter microangiopathic ischemic changes are noted. Examination of the bone windows show no fracture. Normal intracranial physiological calcifications are observed. The cranial vascular calcifications are noted. The visualized paranasal sinuses and mastoid air cells are clear. Medical Decision Making 65-year-old woman, with a significant past medical history of hypertension, hypercholesterolemia, diabetes mellitus and GI disorders who presented to the emergency department via walk-in for further evaluation of abdominal pain for the past 3-4 days with unintentional 20 lb weight loss over the past three months. She required surgical intervention as documented by Dr. Louise. Thereafter , complicated course and patient in ICU, off sedation for several days. CT head without acute changes. Patient was not awakening initially and concern was hypoperfusion and possible anoxic brain injury. Since, has awoken and is keeps eye open, some tracking previously and producing spontaneous extremity movement previously. Toxic metabolic vs hypoperfusion and anoxic brain injury. Would benefit from MRI but not able to obtain due to vent. Continue sepsis treatment Unable to be weaned off vent, status post trach Had respiratory intstability overnight, stabilized Continued medical management for multiple complications Remains somnolent Encourage continued close monitoring, patient with prolonged hospitalization Prognosis guarded
--- NOTE | 2016-08-19 14:10 | PN ---
Progress Note, Physician History of Present Illness: still spiking high fevers cx result noted secretions present - Current Medication List Current Medications: Active Medications Acetaminophen (Ofirmev Injection -) 1,000 mg IVPB Q6H PRN PRN Reason: FEVER Last Admin: 08/19/16 12:28 Dose: 1,000 mg Albuterol/Ipratropium (Duoneb -) 1 amp NEB QIDR [facility] Last Admin: 08/19/16 11:39 Dose: 1 amp Chlorhexidine Gluconate (Peridex -) 15 ml MM BID [facility] Last Admin: 08/19/16 11:23 Dose: 15 ml Dextrose (D50w (Vial) -) 50 ml IVPUSH Q15M PRN PRN Reason: BLOOD SUGAR < 60 Enoxaparin Sodium (Lovenox -) 40 mg SQ BID [facility] Last Admin: 08/19/16 11:23 Dose: 40 mg Furosemide (Lasix Injection -) 20 mg IVPB DAILY [facility] Last Admin: 08/19/16 11:21 Dose: 20 mg Fat Emulsion Intravenous (Intralipid -) 250 mls @ 20.833 mls/hr IV DAILY@2200 [facility] Last Admin: 08/18/16 22:20 Dose: 20.833 mls/hr Levofloxacin (Levaquin 750 Mg Premixed Ivpb -) 150 mls @ 100 mls/hr IVPB DAILY [facility] Last Admin: 08/18/16 15:58 Dose: 100 mls/hr Meropenem 1 gm/ Dextrose 100 mls @ 100 mls/hr IVPB Q8H-IV [facility] PRN Reason: Protocol Last Admin: 08/19/16 09:45 Dose: 100 mls/hr Famotidine/Sodium Chloride (Pepcid 20 Mg Premixed Ivpb -) 50 mls @ 100 mls/hr IVPB BID [facility] Last Admin: 08/19/16 13:17 Dose: 100 mls/hr Fluconazole (Diflucan 200 Mg/D5w Premixed Ivpb -) 100 mls @ 100 mls/hr IVPB DAILY [facility] Last Admin: 08/18/16 14:54 Dose: 100 mls/hr Magnesium Sulfate 4 gm/Insulin Human Regular 20 units / Thiamine HCl 100 mg/ Sodium Chloride 30 meq/ Potassium Chloride 10 meq/ Multivitamins /Minerals 10 ml / Potassium Phosphate 40 mm/ Folic Acid 1 mg/ Sterile Water/ Amino Acids / Dextrose 1,500 mls @ 62.5 mls/hr IVPB DAILY@1600 [facility] Last Admin: 08/18/16 18:12 Dose: 62.5 mls/hr Insulin Aspart (Novolog Vial Sliding Scale -) 1 vial SQ ACHS [facility] PRN Reason: Protocol Last Admin: 08/19/16 12:41 Dose: 2 units Miscellaneous (Duragesic Patch Waste) 1 each TD PRN PRN PRN Reason: PAIN Last Admin: 08/18/16 12:50 Dose: 1 each Morphine Sulfate (Morphine Injection -) 2 mg IVPUSH Q4H PRN PRN Reason: PAIN Last Admin: 08/19/16 11:12 Dose: 2 mg - Objective Vital Signs: Vital Signs Temperature 101.5 F H 08/19/16 11:54 Pulse Rate 104 H 08/19/16 11:07 Respiratory Rate 16 08/19/16 11:07 Blood Pressure 130/60 08/19/16 11:07 O2 Sat by Pulse Oximetry (%) 92 L 08/17/16 09:00 Constitutional: Yes: No Distress, Calm Cardiovascular: Yes: Regular Rate and Rhythm Respiratory: Yes: Mechanically Ventilated, Other (secretions) Gastrointestinal: Yes: Soft, Other Musculoskeletal: Yes: Other Extremities: Yes: Other Wound/Incision: Yes: Other Neurological: Yes: Alert Psychiatric: Yes: Alert, Other Labs: CBC, BMP 08/19/16 05:30 08/19/16 05:30 INR, PTT INR 1.50 (0.82-1.09) H 08/09/16 11:30 Fibrinogen > 700.0 mg/dL (238-498) H 07/31/16 05:40 Assessment/Plan Problem List - Problems (1) Abdominal pain Code(s): R10.9 - UNSPECIFIED ABDOMINAL PAIN Qualifiers: Qualified Code(s): R10.33 - Periumbilical pain (2) Perforated abdominal viscus Code(s): [id number] - (3) Perforated viscus Code(s): R19.8 - OTH SYMPTOMS AND SIGNS INVOLVING THE DGSTV SYS AND ABDOMEN (4) Hypertension Code(s): I10 - ESSENTIAL (PRIMARY) HYPERTENSION Qualifiers: Qualified Code(s): I10 - Essential (primary) hypertension lactic acidosis fevers generalized swelling gangrene of the tip of the fingers noted pseudomonas pneumonia plan patient stable continue suctioning cx result noted abx changed to zosyn will monitor fevers rest as per primary team
--- NOTE | 2016-08-19 14:30 | PN ---
Progress Note, Physician Chief Complaint: Remained at her base line ,spiked high grade fever , opens eye to verbal command, sputum Grew Pseudomonas, drop in H/H. History of Present Illness: 65-year-old F H/O hypertension, hypercholesterolemia, T2DM, ETOH abuse, was presented to ED with abd pain and wt loss underwent exploratory laprotomy for perforated duodenal ulcer on 07/21/16 developed hypotention and sepsis intubate now on trach, colostomy and TPN.spiking high grade fever. - Current Medication List Current Medications: Active Medications Acetaminophen (Ofirmev Injection -) 1,000 mg IVPB Q6H PRN PRN Reason: FEVER Last Admin: 08/19/16 12:28 Dose: 1,000 mg Albuterol/Ipratropium (Duoneb -) 1 amp NEB QIDR [facility] Last Admin: 08/19/16 11:39 Dose: 1 amp Chlorhexidine Gluconate (Peridex -) 15 ml MM BID [facility] Last Admin: 08/19/16 11:23 Dose: 15 ml Dextrose (D50w (Vial) -) 50 ml IVPUSH Q15M PRN PRN Reason: BLOOD SUGAR < 60 Enoxaparin Sodium (Lovenox -) 40 mg SQ BID [facility] Last Admin: 08/19/16 11:23 Dose: 40 mg Furosemide (Lasix Injection -) 20 mg IVPB DAILY [facility] Last Admin: 08/19/16 11:21 Dose: 20 mg Fat Emulsion Intravenous (Intralipid -) 250 mls @ 20.833 mls/hr IV DAILY@2200 [facility] Last Admin: 08/18/16 22:20 Dose: 20.833 mls/hr Levofloxacin (Levaquin 750 Mg Premixed Ivpb -) 150 mls @ 100 mls/hr IVPB DAILY [facility] Last Admin: 08/18/16 15:58 Dose: 100 mls/hr Meropenem 1 gm/ Dextrose 100 mls @ 100 mls/hr IVPB Q8H-IV [facility] PRN Reason: Protocol Last Admin: 08/19/16 09:45 Dose: 100 mls/hr Famotidine/Sodium Chloride (Pepcid 20 Mg Premixed Ivpb -) 50 mls @ 100 mls/hr IVPB BID [facility] Last Admin: 08/19/16 13:17 Dose: 100 mls/hr Fluconazole (Diflucan 200 Mg/D5w Premixed Ivpb -) 100 mls @ 100 mls/hr IVPB DAILY [facility] Last Admin: 08/18/16 14:54 Dose: 100 mls/hr Magnesium Sulfate 4 gm/Insulin Human Regular 20 units / Thiamine HCl 100 mg/ Sodium Chloride 30 meq/ Potassium Chloride 10 meq/ Multivitamins /Minerals 10 ml / Potassium Phosphate 40 mm/ Folic Acid 1 mg/ Sterile Water/ Amino Acids / Dextrose 1,500 mls @ 62.5 mls/hr IVPB DAILY@1600 [facility] Last Admin: 08/18/16 18:12 Dose: 62.5 mls/hr Insulin Aspart (Novolog Vial Sliding Scale -) 1 vial SQ ACHS [facility] PRN Reason: Protocol Last Admin: 08/19/16 12:41 Dose: 2 units Miscellaneous (Duragesic Patch Waste) 1 each TD PRN PRN PRN Reason: PAIN Last Admin: 08/18/16 12:50 Dose: 1 each Morphine Sulfate (Morphine Injection -) 2 mg IVPUSH Q4H PRN PRN Reason: PAIN Last Admin: 08/19/16 11:12 Dose: 2 mg - Objective Vital Signs: Vital Signs Temperature 101.5 F H 08/19/16 11:54 Pulse Rate 104 H 08/19/16 11:07 Respiratory Rate 16 08/19/16 11:07 Blood Pressure 130/60 08/19/16 11:07 O2 Sat by Pulse Oximetry (%) 92 L 08/17/16 09:00 Patient remained altered minimally responsive HEENT: Trach at the place, need intermittent Vent support, mm most, anemia NECK; IJJ at place, no JVD CHEST: Good AE minimal crepts ABD; discharge from stoma, exudation collection EXT; extensive edema, skin peeling and gangrene of distal extremities [employer]; 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 Derm; extensive skin peeling and gangrene of fingers and toes, p Constitutional: Yes: Ashen, Cachectic, Diaphoresis HENT: Yes: Atraumatic Labs: CBC, BMP 08/19/16 05:30 08/19/16 05:30 INR, PTT INR 1.50 (0.82-1.09) H 08/09/16 11:30 Fibrinogen > 700.0 mg/dL (238-498) H 07/31/16 05:40 Problem List - Problems (1) Perforated abdominal viscus Code(s): [id number] - (2) Acute metabolic encephalopathy Code(s): G93.41 - METABOLIC ENCEPHALOPATHY (3) Metabolic acidosis Code(s): E87.2 - ACIDOSIS (4) ZAHIRA (acute kidney injury) Code(s): N17.9 - ACUTE KIDNEY FAILURE, UNSPECIFIED (5) Thrombocytopenia Code(s): D69.6 - THROMBOCYTOPENIA, UNSPECIFIED (6) Ischemia of extremity Code(s): I99.8 - OTHER DISORDER OF CIRCULATORY SYSTEM (7) Sepsis Assessment/Plan: Due to perforated gastric ulcer on abx off pressors, spiked fever on Dual Pseudomnas coverage Prognosis is guarded. Code(s): A41.9 - SEPSIS, UNSPECIFIED ORGANISM
[2016-08-19] MEDS: FLUCONAZOLE 200 MG/D5W 100 ML IVPB SCH (14:38)
--- NOTE | 2016-08-19 15:22 | PN ---
Progress Note (short form) - Note Progress Note: Renal Follow up for ZAHIRA/Metabolic acidosis Pt seen and examined at the bedside remains intubated on vent, awake Vital Signs Temperature 101.5 F H 08/19/16 11:54 Pulse Rate 104 H 08/19/16 11:07 Respiratory Rate 16 08/19/16 11:07 Blood Pressure 130/60 08/19/16 11:07 O2 Sat by Pulse Oximetry (%) 92 L 08/17/16 09:00 Intake & Output 08/16/16 08/17/16 08/18/16 08/19/16 23:59 23:59 23:59 23:59 Intake Total 2556 2496.5 2906.5 1167 Output Total 2400 1700 1600 900 Balance 156 796.5 1306.5 267 Gen: on Vent, NAD CVS: RRR, No M/R Lungs: Dec BS b/l lung andino Abd: Dressing on Abd, Ostomy in place, Ext: 2+ edema in LE CBC, BMP 08/19/16 05:30 08/19/16 05:30 Laboratory Tests 08/19/16 05:30 Calcium 8.7 Phosphorus 3.1 Albumin 1.2 L Current Medications Acetaminophen (Ofirmev Injection -) 1,000 mg IVPB Q6H PRN PRN Reason: FEVER Last Admin: 08/19/16 12:28 Dose: 1,000 mg Albuterol/Ipratropium (Duoneb -) 1 amp NEB QIDR [facility] Last Admin: 08/19/16 11:39 Dose: 1 amp Chlorhexidine Gluconate (Peridex -) 15 ml MM BID [facility] Last Admin: 08/19/16 11:23 Dose: 15 ml Dextrose (D50w (Vial) -) 50 ml IVPUSH Q15M PRN PRN Reason: BLOOD SUGAR < 60 Enoxaparin Sodium (Lovenox -) 40 mg SQ BID [facility] Last Admin: 08/19/16 11:23 Dose: 40 mg Furosemide (Lasix Injection -) 20 mg IVPB DAILY [facility] Last Admin: 08/19/16 11:21 Dose: 20 mg Fat Emulsion Intravenous (Intralipid -) 250 mls @ 20.833 mls/hr IV DAILY@2200 [facility] Last Admin: 08/18/16 22:20 Dose: 20.833 mls/hr Levofloxacin (Levaquin 750 Mg Premixed Ivpb -) 150 mls @ 100 mls/hr IVPB DAILY [facility] Last Admin: 08/18/16 15:58 Dose: 100 mls/hr Famotidine/Sodium Chloride (Pepcid 20 Mg Premixed Ivpb -) 50 mls @ 100 mls/hr IVPB BID [facility] Last Admin: 08/19/16 13:17 Dose: 100 mls/hr Fluconazole (Diflucan 200 Mg/D5w Premixed Ivpb -) 100 mls @ 100 mls/hr IVPB DAILY [facility] Last Admin: 08/19/16 14:38 Dose: 100 mls/hr Magnesium Sulfate 4 gm/Insulin Human Regular 20 units / Thiamine HCl 100 mg/ Sodium Chloride 30 meq/ Potassium Chloride 10 meq/ Multivitamins /Minerals 10 ml / Potassium Phosphate 40 mm/ Folic Acid 1 mg/ Sterile Water/ Amino Acids / Dextrose 1,500 mls @ 62.5 mls/hr IVPB DAILY@1600 [facility] Last Admin: 08/18/16 18:12 Dose: 62.5 mls/hr Piperacillin Sod/Tazobactam Sod (Zosyn 4.5gm Ivpb (Pre-Docked)) 100 mls @ 200 mls/hr IVPB Q6H-IV [facility]ERY PRN Reason: Protocol Insulin Aspart (Novolog Vial Sliding Scale -) 1 vial SQ ACHS [facility]ERY PRN Reason: Protocol Last Admin: 08/19/16 12:41 Dose: 2 units Miscellaneous (Duragesic Patch Waste) 1 each TD PRN PRN PRN Reason: PAIN Last Admin: 08/18/16 12:50 Dose: 1 each Morphine Sulfate (Morphine Injection -) 2 mg IVPUSH Q4H PRN PRN Reason: PAIN Last Admin: 08/19/16 11:12 Dose: 2 mg A/P 65 year old woman with PMhx of hypertension, hypercholesterolemia, diabetes mellitus who presented with Abd pain and found to have perforated Abd viscus s/ p emergent Sx now with Septic Shock, ZAHIRA and Metabolic Acidosis. #Sepsis/Perforated Abd Viscus/Abscess management as per Sx/ID #NPO on TPN/Electrolyte abnormalities Continue current TPN Trend electrolytes daily #Edema from 3rd spacing continue TPN for nutritional support continue Lasix daily prognosis remains guarded Cyril Tubbs DO
[2016-08-19] MEDS: PIPERACILLIN/TAZOB 4.5 GM 100 ML IVPB SCH ×2 (15:52→22:35)
--- NOTE | 2016-08-19 16:17 | PN ---
Progress Note (short form) - Note Progress Note: Remains on AC mode of vent. Breathing is less labored today. 40% FiO2. Noted sputum grew Pseudomonas (Sensitive to Zosyn). Intake & Output 08/16/16 08/17/16 08/18/16 08/19/16 23:59 23:59 23:59 23:59 Intake Total 2556 2496.5 2906.5 1267 Output Total 2400 1700 1600 2300 Balance 156 796.5 1306.5 -1033 Last Vital Signs Temp Pulse Resp BP Pulse Ox 99.6 F 104 H 16 108/58 92 L 08/19/16 14:32 08/19/16 14:32 08/19/16 14:32 08/19/16 14:32 08/17/16 09:00 Active Medications Acetaminophen (Ofirmev Injection -) 1,000 mg IVPB Q6H PRN PRN Reason: FEVER Last Admin: 08/19/16 12:28 Dose: 1,000 mg Albuterol/Ipratropium (Duoneb -) 1 amp NEB QIDR [facility] Last Admin: 08/19/16 11:39 Dose: 1 amp Chlorhexidine Gluconate (Peridex -) 15 ml MM BID [facility] Last Admin: 08/19/16 11:23 Dose: 15 ml Dextrose (D50w (Vial) -) 50 ml IVPUSH Q15M PRN PRN Reason: BLOOD SUGAR < 60 Enoxaparin Sodium (Lovenox -) 40 mg SQ BID [facility] Last Admin: 08/19/16 11:23 Dose: 40 mg Furosemide (Lasix Injection -) 20 mg IVPB DAILY [facility] Last Admin: 08/19/16 11:21 Dose: 20 mg Fat Emulsion Intravenous (Intralipid -) 250 mls @ 20.833 mls/hr IV DAILY@2200 [facility] Last Admin: 08/18/16 22:20 Dose: 20.833 mls/hr Levofloxacin (Levaquin 750 Mg Premixed Ivpb -) 150 mls @ 100 mls/hr IVPB DAILY [facility] Last Admin: 08/18/16 15:58 Dose: 100 mls/hr Famotidine/Sodium Chloride (Pepcid 20 Mg Premixed Ivpb -) 50 mls @ 100 mls/hr IVPB BID [facility] Last Admin: 08/19/16 13:17 Dose: 100 mls/hr Fluconazole (Diflucan 200 Mg/D5w Premixed Ivpb -) 100 mls @ 100 mls/hr IVPB DAILY [facility] Last Admin: 08/19/16 14:38 Dose: 100 mls/hr Magnesium Sulfate 4 gm/Insulin Human Regular 20 units / Thiamine HCl 100 mg/ Sodium Chloride 30 meq/ Potassium Chloride 10 meq/ Multivitamins /Minerals 10 ml / Potassium Phosphate 40 mm/ Folic Acid 1 mg/ Sterile Water/ Amino Acids / Dextrose 1,500 mls @ 62.5 mls/hr IVPB DAILY@1600 [facility] Last Admin: 08/18/16 18:12 Dose: 62.5 mls/hr Piperacillin Sod/Tazobactam Sod (Zosyn 4.5gm Ivpb (Pre-Docked)) 100 mls @ 200 mls/hr IVPB Q6H-IV [facility]ERY PRN Reason: Protocol Last Admin: 08/19/16 15:52 Dose: 200 mls/hr Insulin Aspart (Novolog Vial Sliding Scale -) 1 vial SQ ACHS [facility] PRN Reason: Protocol Last Admin: 08/19/16 12:41 Dose: 2 units Miscellaneous (Duragesic Patch Waste) 1 each TD PRN PRN PRN Reason: PAIN Last Admin: 08/18/16 12:50 Dose: 1 each Morphine Sulfate (Morphine Injection -) 2 mg IVPUSH Q4H PRN PRN Reason: PAIN Last Admin: 08/19/16 11:12 Dose: 2 mg Gen: Trached, arousable Heart: RRR Lung: scattered rhonchi Abd: soft, dressings intact Ext: cold, hypoperfused, blackened Laboratory Results - last 24 hr 08/18/16 08/18/16 08/18/16 18:07 18:26 22:28 WBC RBC Hgb Hct MCV MCHC RDW Plt Count MPV Neutrophils % Lymphocytes % Monocytes % Eosinophils % Basophils % Band Neutrophils Platelet Estimate Sodium Potassium Chloride Carbon Dioxide Anion Gap BUN Creatinine Creat Clearance w eGFR POC Glucometer 190 191 Random Glucose Calcium Phosphorus Magnesium 1.9 Total Bilirubin AST ALT Alkaline Phosphatase Troponin I Total Protein Albumin Blood Type Antibody Screen Crossmatch 08/19/16 08/19/16 08/19/16 05:30 05:30 05:30 WBC 14.2 H D RBC 2.32 L Hgb 6.7 L* Hct 20.3 L MCV 87.3 MCHC 32.9 RDW 14.6 Plt Count 520 H MPV 7.7 Neutrophils % 70.0 Lymphocytes % 10.0 D Monocytes % 9.0 Eosinophils % 6.0 H D Basophils % 2.0 Band Neutrophils 3.0 D Platelet Estimate Increased Sodium 135 L Potassium 4.6 Chloride 97 L Carbon Dioxide 29 Anion Gap 9 BUN 21 H Creatinine 0.3 L Creat Clearance w eGFR > 60 POC Glucometer Random Glucose 192 H Calcium 8.7 Phosphorus 3.1 Magnesium Total Bilirubin 0.3 AST 20 ALT 18 Alkaline Phosphatase 165 H Troponin I 0.03 Total Protein 6.0 L Albumin 1.2 L Blood Type Antibody Screen Crossmatch 08/19/16 08/19/16 08/19/16 05:35 05:37 09:30 WBC RBC Hgb Hct MCV MCHC RDW Plt Count MPV Neutrophils % Lymphocytes % Monocytes % Eosinophils % Basophils % Band Neutrophils Platelet Estimate Sodium Potassium Chloride Carbon Dioxide Anion Gap BUN Creatinine Creat Clearance w eGFR POC Glucometer 29 204 Random Glucose Calcium Phosphorus Magnesium Total Bilirubin AST ALT Alkaline Phosphatase Troponin I Total Protein Albumin Blood Type O POSITIVE Antibody Screen Negative Crossmatch See Detail 08/19/16 12:25 WBC RBC Hgb Hct MCV MCHC RDW Plt Count MPV Neutrophils % Lymphocytes % Monocytes % Eosinophils % Basophils % Band Neutrophils Platelet Estimate Sodium Potassium Chloride Carbon Dioxide Anion Gap BUN Creatinine Creat Clearance w eGFR POC Glucometer 196 Random Glucose Calcium Phosphorus Magnesium Total Bilirubin AST ALT Alkaline Phosphatase Troponin I Total Protein Albumin Blood Type Antibody Screen Crossmatch ASSESSMENT AND PLAN: Perforated Duodenal Ulcer Peritonitis s/p ex-lap/omental patch repair 07/16 Acute Respiratory Failure Septic Shock Acute Kidney Injury Lactic Acidosis Leukopenia/Thrombocytopenia likely from sepsis DM Encephalopathy -> etiology to be determined - Maintain current vent settings - ABX per ID - taper FiO2 to keep Spo2 >90% - transfuse platelets if <20K, cryo if fibrinogen <100 - DVT/GI prophylaxis - Would continue family discussions regarding GOC -> Overall expected outcome for meaningful recovery is not expected. previously stated that Crystal would not want to be maintained on chronic support in a skilled facility Dr Dubon
[2016-08-19] MEDS: LEVOFLOXACIN 750 MG IVPB 150 ML IVPB SCH (16:45)
[2016-08-19] MEDS: THIAMINE HCL IVPB SCH (18:20)
[2016-08-19] MEDS: INSULIN REGULAR IVPB SCH (18:20)
[2016-08-19] MEDS: [UNRECOGNIZED DRUG - OTHER] IVPB SCH (18:20)
[2016-08-19] MEDS: MAGNESIUM SULFATE IVPB SCH (18:20)
[2016-08-19] MEDS: FAT EMULSIONS 250 ML IV SCH (22:37)
[2016-08-20] MEDS: INSULIN SLIDING SCALE (NOVOLOG) 1 VIAL SQ SCH ×5 (00:01→21:27)
[2016-08-20] MEDS: ENOXAPARIN NA (PORCINE) 40 MG/0.4 ML DISP.SYRIN SQ SCH ×3 (00:03→21:27)
[2016-08-20] MEDS: morphine CARPU-JECT 2 MG/1 ML DISP.SYRIN IVPUSH PRN ×3 (00:27→15:28)
[2016-08-20] MEDS: PIPERACILLIN/TAZOB 4.5 GM 100 ML IVPB SCH ×4 (03:39→21:25)
[2016-08-20] MEDS: ALBUTEROL SO4 2.5/IPRATROPIUM 0.5 INH SOL 3 ML VIAL.NEB. NEB SCH ×3 (05:59→18:40)
[2016-08-20] MEDS ORDERED: INSULIN (NOVOLOG) ASPART 100 UNITS/ML 10ML VIAL ONE (07:15)
[2016-08-20 07:52] LABS: BASOPHIL 1.2 % (0-2.0); EOSINOPHIL 4.6 % (0-4.5); MCH 28.8 pg (25.7-33.7); MCHC 34.1 g/dl (32.0-36.0); MEAN CELL VOLUME 84.5 fl (80-96); MEAN PLT VOLUME 7.6 fl (7.5-11.1); PLATELET COUNT 473 K/MM3 (134-434); RDW 14.9 % (11.6-15.6); WHITE BLOOD COUNT 14.2 K/mm3 (4.0-10.0)
[2016-08-20 08:51] LABS: ALBUMIN 1.2 g/dl (3.4-5.0); ALK PHOS 182 U/L (45-117); ANION GAP 11 (8-16); BILIRUBIN,TOTAL 0.5 mg/dL (0.2-1.0); CALCIUM 8.9 mg/dL (8.5-10.1); CO2 27 mmol/L (21-32); CREATININE 0.4 mg/dL (0.55-1.02); GLUCOSE,RANDOM 162 mg/dL (74-106); MAGNESIUM 1.5 mg/dL (1.8-2.4); PHOSPHOROUS 3.6 mg/dL (2.5-4.9); SGOT/AST 21 U/L (15-37); SGPT/ALT 16 U/L (12-78); TOT PROT 6.2 g/dl (6.4-8.2)
[2016-08-20] MEDS: LEVOFLOXACIN 750 MG IVPB 150 ML IVPB SCH (09:19)
[2016-08-20] MEDS: FAMOTIDINE 20 MG/50 ML IVPB 50 ML IVPB SCH ×2 (11:05→21:27)
[2016-08-20] MEDS: FUROSEMIDE 40 MG/4 ML INJECTABLE VIAL IVPB SCH (11:06)
[2016-08-20] MEDS: FLUCONAZOLE 200 MG/D5W 100 ML IVPB SCH (12:01)
[2016-08-20] MEDS: CHLORHEXIDINE GLUCONATE 0.12% 15ML CUP MM SCH ×2 (12:04→21:29)
--- NOTE | 2016-08-20 12:20 | PN ---
Progress Note, Physician History of Present Illness: PULMONARY MORE AWAKE,ON VENT SUPPORT,AC MODE - RESP DISTRESS,-TACHYPNEA - Current Medication List Current Medications: Active Medications Acetaminophen (Ofirmev Injection -) 1,000 mg IVPB Q6H PRN PRN Reason: FEVER Last Admin: 08/19/16 12:28 Dose: 1,000 mg Albuterol/Ipratropium (Duoneb -) 1 amp NEB QIDR [facility] Last Admin: 08/20/16 05:59 Dose: 1 amp Chlorhexidine Gluconate (Peridex -) 15 ml MM BID [facility] Last Admin: 08/20/16 12:04 Dose: Not Given Dextrose (D50w (Vial) -) 50 ml IVPUSH Q15M PRN PRN Reason: BLOOD SUGAR < 60 Enoxaparin Sodium (Lovenox -) 40 mg SQ BID [facility] Last Admin: 08/20/16 11:06 Dose: 40 mg Furosemide (Lasix Injection -) 20 mg IVPB DAILY [facility] Last Admin: 08/20/16 11:06 Dose: 20 mg Fat Emulsion Intravenous (Intralipid -) 250 mls @ 20.833 mls/hr IV DAILY@2200 [facility] Last Admin: 08/19/16 22:37 Dose: 20.833 mls/hr Levofloxacin (Levaquin 750 Mg Premixed Ivpb -) 150 mls @ 100 mls/hr IVPB DAILY [facility] Last Admin: 08/20/16 09:19 Dose: 100 mls/hr Famotidine/Sodium Chloride (Pepcid 20 Mg Premixed Ivpb -) 50 mls @ 100 mls/hr IVPB BID [facility] Last Admin: 08/20/16 11:05 Dose: 100 mls/hr Fluconazole (Diflucan 200 Mg/D5w Premixed Ivpb -) 100 mls @ 100 mls/hr IVPB DAILY [facility] Last Admin: 08/20/16 12:01 Dose: 100 mls/hr Magnesium Sulfate 4 gm/Insulin Human Regular 20 units / Thiamine HCl 100 mg/ Sodium Chloride 30 meq/ Potassium Chloride 10 meq/ Multivitamins /Minerals 10 ml / Potassium Phosphate 40 mm/ Folic Acid 1 mg/ Sterile Water/ Amino Acids / Dextrose 1,500 mls @ 62.5 mls/hr IVPB DAILY@1600 [facility] Last Admin: 08/19/16 18:20 Dose: 62.5 mls/hr Piperacillin Sod/Tazobactam Sod (Zosyn 4.5gm Ivpb (Pre-Docked)) 100 mls @ 200 mls/hr IVPB Q6H-IV [facility] PRN Reason: Protocol Last Admin: 08/20/16 08:10 Dose: 200 mls/hr Insulin Aspart (Novolog Vial Sliding Scale -) 1 vial SQ ACHS [facility] PRN Reason: Protocol Last Admin: 08/20/16 12:00 Dose: 2 units Miscellaneous (Duragesic Patch Waste) 1 each TD PRN PRN PRN Reason: PAIN Last Admin: 08/18/16 12:50 Dose: 1 each Morphine Sulfate (Morphine Injection -) 2 mg IVPUSH Q4H PRN PRN Reason: PAIN Last Admin: 08/20/16 08:09 Dose: 2 mg - Objective Vital Signs: Vital Signs Temperature 99.1 F 08/20/16 06:00 Pulse Rate 102 H 08/20/16 06:00 Respiratory Rate 16 08/20/16 06:25 Blood Pressure 125/64 08/20/16 06:00 O2 Sat by Pulse Oximetry (%) 92 L 08/17/16 09:00 Constitutional: Yes: Well Nourished, Calm Eyes: Yes: WNL HENT: Yes: WNL Neck: Yes: Supple (TEACH) Cardiovascular: Yes: Regular Rate and Rhythm, S1, S2 Respiratory: Yes: Rhonchi (FEW RHONCHI) Gastrointestinal: Yes: Soft Extremities: Yes: Cool Edema: No Labs: CBC, BMP 08/20/16 06:00 08/20/16 06:00 INR, PTT INR 1.50 (0.82-1.09) H 08/09/16 11:30 Fibrinogen > 700.0 mg/dL (238-498) H 07/31/16 05:40 Problem List - Problems (1) ZAHIRA (acute kidney injury) Code(s): N17.9 - ACUTE KIDNEY FAILURE, UNSPECIFIED (2) Acute metabolic encephalopathy Code(s): G93.41 - METABOLIC ENCEPHALOPATHY (3) Ischemia of extremity Code(s): I99.8 - OTHER DISORDER OF CIRCULATORY SYSTEM (4) Metabolic acidemia Code(s): E87.2 - ACIDOSIS (5) Perforated abdominal viscus Code(s): WKC7349 - (6) Sepsis Code(s): A41.9 - SEPSIS, UNSPECIFIED ORGANISM (7) Acute respiratory failure Code(s): J96.00 - ACUTE RESPIRATORY FAILURE, UNSP W HYPOXIA OR HYPERCAPNIA Assessment/Plan A/P Perforated Duodenal Ulcer Peritonitis s/p ex-lap/omental patch repair 07/16 Enterocutaneous Fistula Acute Respiratory Failure S/P Septic Shock Lactic Acidosis resolved Leukopenia/Thrombocytopenia resolved DM DVT Gangrene - inhaled bronchodilators - antibiotics per ID - taper Fio2 to keep Spo2 >90% - continue anticoagulation - TPN per renal - spontaneous breathing trials as tolerated - DVT/GI prophylaxis - prognosis is poor, continue discussions regarding advanced directives and goals of care - recommend palliative due to failure to wean, anticipated amputations, poor quality of life DR OSEI
--- NOTE | 2016-08-20 12:56 | PN ---
Progress Note (short form) - Note Progress Note: Renal Follow up for ZAHIRA/Metabolic acidosis Pt seen and examined at the bedside no overnight events on the vent via trach getting TPN Vital Signs Temperature 99.1 F 08/20/16 06:00 Pulse Rate 102 H 08/20/16 06:00 Respiratory Rate 16 08/20/16 06:25 Blood Pressure 125/64 08/20/16 06:00 O2 Sat by Pulse Oximetry (%) 92 L 08/17/16 09:00 Intake & Output 08/17/16 08/18/16 08/19/16 08/20/16 23:59 23:59 23:59 23:59 Intake Total 2496.5 2906.5 2801 1340 Output Total 1700 1600 2350 1200 Balance 796.5 1306.5 451 140 Weight 154 lb 4 oz Gen: on Vent, NAD CVS: RRR, No M/R Lungs: Dec BS b/l lung andino Abd: Dressing on Abd, Ostomy in place, Ext: 2+ edema in LE CBC, BMP 08/20/16 06:00 08/20/16 06:00 Laboratory Tests 08/20/16 06:00 Calcium 8.9 Phosphorus 3.6 Magnesium 1.5 L D Albumin 1.2 L Current Medications Acetaminophen (Ofirmev Injection -) 1,000 mg IVPB Q6H PRN PRN Reason: FEVER Last Admin: 08/19/16 12:28 Dose: 1,000 mg Albuterol/Ipratropium (Duoneb -) 1 amp NEB QIDR [facility] Last Admin: 08/20/16 05:59 Dose: 1 amp Chlorhexidine Gluconate (Peridex -) 15 ml MM BID [facility] Last Admin: 08/20/16 12:04 Dose: Not Given Dextrose (D50w (Vial) -) 50 ml IVPUSH Q15M PRN PRN Reason: BLOOD SUGAR < 60 Enoxaparin Sodium (Lovenox -) 40 mg SQ BID [facility] Last Admin: 08/20/16 11:06 Dose: 40 mg Furosemide (Lasix Injection -) 20 mg IVPB DAILY [facility] Last Admin: 08/20/16 11:06 Dose: 20 mg Fat Emulsion Intravenous (Intralipid -) 250 mls @ 20.833 mls/hr IV DAILY@2200 [facility] Last Admin: 08/19/16 22:37 Dose: 20.833 mls/hr Levofloxacin (Levaquin 750 Mg Premixed Ivpb -) 150 mls @ 100 mls/hr IVPB DAILY [facility] Last Admin: 08/20/16 09:19 Dose: 100 mls/hr Famotidine/Sodium Chloride (Pepcid 20 Mg Premixed Ivpb -) 50 mls @ 100 mls/hr IVPB BID [facility] Last Admin: 08/20/16 11:05 Dose: 100 mls/hr Fluconazole (Diflucan 200 Mg/D5w Premixed Ivpb -) 100 mls @ 100 mls/hr IVPB DAILY [facility] Last Admin: 08/20/16 12:01 Dose: 100 mls/hr Magnesium Sulfate 4 gm/Insulin Human Regular 20 units / Thiamine HCl 100 mg/ Sodium Chloride 30 meq/ Potassium Chloride 10 meq/ Multivitamins /Minerals 10 ml / Potassium Phosphate 40 mm/ Folic Acid 1 mg/ Sterile Water/ Amino Acids / Dextrose 1,500 mls @ 62.5 mls/hr IVPB DAILY@1600 [facility] Last Admin: 08/19/16 18:20 Dose: 62.5 mls/hr Piperacillin Sod/Tazobactam Sod (Zosyn 4.5gm Ivpb (Pre-Docked)) 100 mls @ 200 mls/hr IVPB Q6H-IV [facility] PRN Reason: Protocol Last Admin: 08/20/16 08:10 Dose: 200 mls/hr Insulin Aspart (Novolog Vial Sliding Scale -) 1 vial SQ ACHS [facility] PRN Reason: Protocol Last Admin: 08/20/16 12:00 Dose: 2 units Miscellaneous (Duragesic Patch Waste) 1 each TD PRN PRN PRN Reason: PAIN Last Admin: 08/18/16 12:50 Dose: 1 each A/P 65 year old woman with PMhx of hypertension, hypercholesterolemia, diabetes mellitus who presented with Abd pain and found to have perforated Abd viscus s/ p emergent Sx now with Septic Shock, ZAHIRA and Metabolic Acidosis. #Sepsis/Perforated Abd Viscus/Abscess management as per Sx/ID #NPO on TPN/Electrolyte abnormalities TPN adjusted today to increase NaCL and Mg content continue to monitor electrolytes daily #Edema from 3rd spacing continue TPN for nutritional support continue Lasix daily prognosis remains guarded Cyril Tubbs DO
--- NOTE | 2016-08-20 13:23 | PN ---
Progress Note (short form) - Note Progress Note: Neurology History of Present Illness The patient is a 65-year-old woman, with a significant past medical history of hypertension, hypercholesterolemia, diabetes mellitus and GI disorders who presented to the emergency department via walk-in for further evaluation of abdominal pain for the past 3-4 days with unintentional 20 lb weight loss over the past three months. She required surgical intervention as documented by Dr. Louise. Thereafter, complicated course and patient in ICU, off sedation for several days. CT head without acute changes. Patient was not awakening initially and concern was hypoperfusion and possible anoxic brain injury. 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 Since, has awoken and is keeps eye open, occasional tracking and previously occasional spontaneous extremity movement but minimal now. Does have notable gangrene of fingers and toes. protecting airway and remains intubated and on vent, status post trach as she was not able to tolerate weaning. Toxic metabolic vs hypoperfusion and anoxic brain injury. Would benefit from MRI but not able to obtain due to vent. Has sepsis and getting ongoing treatment. Previously opening mouth and sticking out tongue to command but no significant cognitive activity at this time. Has been downgraded from ICU to floor status and minimal activity. Not interactive with me. Nurse informed me she moved her left arm earlier, required blood yesterday. *Physical Exam Vital Signs Temperature 99.1 F 08/20/16 06:00 Pulse Rate 102 H 08/20/16 06:00 Respiratory Rate 16 08/20/16 06:25 Blood Pressure 125/64 08/20/16 06:00 O2 Sat by Pulse Oximetry (%) 92 L 08/17/16 09:00 GENERAL: Awake Frail appearing. HEENT: Normocephalic, atraumatic. +Temporal wasting. PERRL, EOMI. No conjunctival pallor. +Sclera are icteric. +Dry mucous membranes. Oropharynx is clear. NECK: Supple. Full ROM. No JVD. CARDIOVASCULAR: Tachycardic rate but regular rate and rhythm. No murmurs, rubs, or gallops. PULMONARY: +Diffuse dyspneic breath sounds that are equal bilaterally. No wheezing, crackles or rhonchi. ABDOMINAL: Firm but soft abdomen. Diffuse tenderness to palpation without rebound or guarding. Non-distended. No organomegaly. Normoactive bowel sounds. MUSCULOSKELETAL: Normal range of motion at all joints. No bony deformities or tenderness. No CVA tenderness. EXTREMITIES: No cyanosis. No clubbing. No edema. No calf tenderness. SKIN: Tenting of the skin. Jaundiced. No rashes. NEUROLOGICAL: Trached, ventilation, opens eyes and minimal movement of extremities but not cooperating with confrontation testing, withdraws to pain, not following complex commands, not tracking CBCD WBC 14.2 K/mm3 (4.0-10.0) H 08/20/16 06:00 RBC 3.26 M/mm3 (3.60-5.2) L D 08/20/16 06:00 Hgb 9.4 GM/dL (10.7-15.3) L D 08/20/16 06:00 Hct 27.5 % (32.4-45.2) L D 08/20/16 06:00 MCV 84.5 fl (80-96) 08/20/16 06:00 MCHC 34.1 g/dl (32.0-36.0) 08/20/16 06:00 RDW 14.9 % (11.6-15.6) 08/20/16 06:00 Plt Count 473 K/MM3 (134-434) H 08/20/16 06:00 MPV 7.6 fl (7.5-11.1) 08/20/16 06:00 CMP Sodium 134 mmol/L (136-145) L 08/20/16 06:00 Potassium 4.6 mmol/L (3.5-5.1) 08/20/16 06:00 Chloride 96 mmol/L (98-107) L 08/20/16 06:00 Carbon Dioxide 27 mmol/L (21-32) 08/20/16 06:00 Anion Gap 11 (8-16) 08/20/16 06:00 BUN 20 mg/dL (7-18) H 08/20/16 06:00 Creatinine 0.4 mg/dL (0.55-1.02) L D 08/20/16 06:00 Creat Clearance w eGFR > 60 (>60) 08/20/16 06:00 Calcium 8.9 mg/dL (8.5-10.1) 08/20/16 06:00 Total Bilirubin 0.5 mg/dL (0.2-1.0) D 08/20/16 06:00 AST 21 U/L (15-37) 08/20/16 06:00 ALT 16 U/L (12-78) 08/20/16 06:00 Alkaline Phosphatase 182 U/L (45-117) H 08/20/16 06:00 Total Protein 6.2 g/dl (6.4-8.2) L 08/20/16 06:00 Albumin 1.2 g/dl (3.4-5.0) L 08/20/16 06:00 EXAM: CT/HEAD CT WITHOUT CONTRAST IMPRESSION: Comparison study MRI of the brain February 23, 2015. Findings. Serial axial images of the brain were obtained from foramen magnum to the cranial vertex without intravenous contrast, with coronal, sagittal reconstruction images. No evidence of hydrocephalus, acute subarachnoid hemorrhage, acute intra-axial or extra-axial fluid collection consistent with subdural or epidural hematoma. No mass effect, midline shift, acute ischemic changes, herniation or edema is present. Normal yancey matter white matter differentiation. The cortical sulci, sylvian fissures, perimesencephalic cisterns are not effaced. The CSF spaces are age-appropriate. Supratentorial periventricular chronic white matter microangiopathic ischemic changes are noted. Examination of the bone windows show no fracture. Normal intracranial physiological calcifications are observed. The cranial vascular calcifications are noted. The visualized paranasal sinuses and mastoid air cells are clear. Medical Decision Making 65-year-old woman, with a significant past medical history of hypertension, hypercholesterolemia, diabetes mellitus and GI disorders who presented to the emergency department via walk-in for further evaluation of abdominal pain for the past 3-4 days with unintentional 20 lb weight loss over the past three months. She required surgical intervention as documented by Dr. Louise. Thereafter , complicated course and patient in ICU, off sedation for several days. CT head without acute changes. Patient was not awakening initially and concern was hypoperfusion and possible anoxic brain injury. Since, has awoken and is keeps eye open, some tracking previously and producing spontaneous extremity movement previously. Toxic metabolic vs hypoperfusion and anoxic brain injury. Would benefit from MRI but not able to obtain due to vent. Continue sepsis treatment Unable to be weaned off vent, status post trach Had respiratory intstability overnight, stabilized Continued medical management for multiple complications Remains somnolent Encourage continued close monitoring, patient with prolonged hospitalization Prognosis guarded
--- NOTE | 2016-08-20 15:00 | PN ---
Progress Note, Physician History of Present Illness: low grade temp but no high spikes continues to be on vent secretions present - Current Medication List Current Medications: Active Medications Acetaminophen (Ofirmev Injection -) 1,000 mg IVPB Q6H PRN PRN Reason: FEVER Last Admin: 08/19/16 12:28 Dose: 1,000 mg Albuterol/Ipratropium (Duoneb -) 1 amp NEB QIDR [facility] Last Admin: 08/20/16 05:59 Dose: 1 amp Chlorhexidine Gluconate (Peridex -) 15 ml MM BID [facility] Last Admin: 08/20/16 12:04 Dose: Not Given Dextrose (D50w (Vial) -) 50 ml IVPUSH Q15M PRN PRN Reason: BLOOD SUGAR < 60 Enoxaparin Sodium (Lovenox -) 40 mg SQ BID [facility] Last Admin: 08/20/16 11:06 Dose: 40 mg Furosemide (Lasix Injection -) 20 mg IVPB DAILY [facility] Last Admin: 08/20/16 11:06 Dose: 20 mg Fat Emulsion Intravenous (Intralipid -) 250 mls @ 20.833 mls/hr IV DAILY@2200 [facility] Last Admin: 08/19/16 22:37 Dose: 20.833 mls/hr Levofloxacin (Levaquin 750 Mg Premixed Ivpb -) 150 mls @ 100 mls/hr IVPB DAILY [facility] Last Admin: 08/20/16 09:19 Dose: 100 mls/hr Famotidine/Sodium Chloride (Pepcid 20 Mg Premixed Ivpb -) 50 mls @ 100 mls/hr IVPB BID [facility] Last Admin: 08/20/16 11:05 Dose: 100 mls/hr Fluconazole (Diflucan 200 Mg/D5w Premixed Ivpb -) 100 mls @ 100 mls/hr IVPB DAILY [facility] Last Admin: 08/20/16 12:01 Dose: 100 mls/hr Magnesium Sulfate 4 gm/Insulin Human Regular 20 units / Thiamine HCl 100 mg/ Sodium Chloride 30 meq/ Potassium Chloride 10 meq/ Multivitamins /Minerals 10 ml / Potassium Phosphate 40 mm/ Folic Acid 1 mg/ Sterile Water/ Amino Acids / Dextrose 1,500 mls @ 62.5 mls/hr IVPB DAILY@1600 [facility] Stop: 08/20/16 15:59 Last Admin: 08/19/16 18:20 Dose: 62.5 mls/hr Piperacillin Sod/Tazobactam Sod (Zosyn 4.5gm Ivpb (Pre-Docked)) 100 mls @ 200 mls/hr IVPB Q6H-IV [facility] PRN Reason: Protocol Last Admin: 08/20/16 08:10 Dose: 200 mls/hr Magnesium Sulfate 4 gm/Insulin Human Regular 20 units / Thiamine HCl 100 mg/ Sodium Chloride 40 meq/ Potassium Chloride 10 meq/ Multivitamins /Minerals 10 ml / Potassium Phosphate 40 mm/ Folic Acid 1 mg/ Sterile Water/ Amino Acids / Dextrose 1,500 mls @ 62.5 mls/hr IVPB DAILY@1600 [facility] Insulin Aspart (Novolog Vial Sliding Scale -) 1 vial SQ ACHS [facility] PRN Reason: Protocol Last Admin: 08/20/16 12:00 Dose: 2 units Miscellaneous (Duragesic Patch Waste) 1 each TD PRN PRN PRN Reason: PAIN Last Admin: 08/18/16 12:50 Dose: 1 each - Objective Vital Signs: Vital Signs Temperature 99.1 F 08/20/16 13:49 Pulse Rate 106 H 08/20/16 13:49 Respiratory Rate 18 08/20/16 13:49 Blood Pressure 127/72 08/20/16 13:49 O2 Sat by Pulse Oximetry (%) 92 L 08/17/16 09:00 Constitutional: Yes: No Distress, Calm Cardiovascular: Yes: Regular Rate and Rhythm Respiratory: Yes: Mechanically Ventilated, Other (trach) Gastrointestinal: Yes: Normal Bowel Sounds, Soft Musculoskeletal: Yes: Other Extremities: Yes: Other Neurological: Yes: Alert, Other Labs: CBC, BMP 08/20/16 06:00 08/20/16 06:00 INR, PTT INR 1.50 (0.82-1.09) H 08/09/16 11:30 Fibrinogen > 700.0 mg/dL (238-498) H 07/31/16 05:40 Assessment/Plan Problem List - Problems (1) Abdominal pain Code(s): R10.9 - UNSPECIFIED ABDOMINAL PAIN Qualifiers: Qualified Code(s): R10.33 - Periumbilical pain (2) Perforated abdominal viscus Code(s): [id number] - (3) Perforated viscus Code(s): R19.8 - OTH SYMPTOMS AND SIGNS INVOLVING THE DGSTV SYS AND ABDOMEN (4) Hypertension Code(s): I10 - ESSENTIAL (PRIMARY) HYPERTENSION Qualifiers: Qualified Code(s): I10 - Essential (primary) hypertension lactic acidosis fevers generalized swelling gangrene of the tip of the fingers noted pseudomonas pneumonia plan patient stable continue suctioning resp physio nutritional support
[2016-08-20] MEDS: fentaNYL 25mcg/hr PATCH.TD72 TD SCH (15:29)
--- NOTE | 2016-08-20 15:34 | PN ---
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 - Current Medication List Current Medications: Active Medications Acetaminophen (Ofirmev Injection -) 1,000 mg IVPB Q6H PRN PRN Reason: FEVER Last Admin: 08/19/16 12:28 Dose: 1,000 mg Albuterol/Ipratropium (Duoneb -) 1 amp NEB QIDR [facility] Last Admin: 08/20/16 05:59 Dose: 1 amp Chlorhexidine Gluconate (Peridex -) 15 ml MM BID [facility] Last Admin: 08/20/16 12:04 Dose: Not Given Dextrose (D50w (Vial) -) 50 ml IVPUSH Q15M PRN PRN Reason: BLOOD SUGAR < 60 Enoxaparin Sodium (Lovenox -) 40 mg SQ BID [facility] Last Admin: 08/20/16 11:06 Dose: 40 mg Fentanyl (Duragesic 25mcg Patch -) 1 patch TD Q72H [facility] Furosemide (Lasix Injection -) 20 mg IVPB DAILY [facility] Last Admin: 08/20/16 11:06 Dose: 20 mg Fat Emulsion Intravenous (Intralipid -) 250 mls @ 20.833 mls/hr IV DAILY@2200 [facility] Last Admin: 08/19/16 22:37 Dose: 20.833 mls/hr Levofloxacin (Levaquin 750 Mg Premixed Ivpb -) 150 mls @ 100 mls/hr IVPB DAILY [facility] Last Admin: 08/20/16 09:19 Dose: 100 mls/hr Famotidine/Sodium Chloride (Pepcid 20 Mg Premixed Ivpb -) 50 mls @ 100 mls/hr IVPB BID [facility] Last Admin: 08/20/16 11:05 Dose: 100 mls/hr Fluconazole (Diflucan 200 Mg/D5w Premixed Ivpb -) 100 mls @ 100 mls/hr IVPB DAILY [facility] Last Admin: 08/20/16 12:01 Dose: 100 mls/hr Magnesium Sulfate 4 gm/Insulin Human Regular 20 units / Thiamine HCl 100 mg/ Sodium Chloride 30 meq/ Potassium Chloride 10 meq/ Multivitamins /Minerals 10 ml / Potassium Phosphate 40 mm/ Folic Acid 1 mg/ Sterile Water/ Amino Acids / Dextrose 1,500 mls @ 62.5 mls/hr IVPB DAILY@1600 [facility] Stop: 08/20/16 15:59 Last Admin: 08/19/16 18:20 Dose: 62.5 mls/hr Piperacillin Sod/Tazobactam Sod (Zosyn 4.5gm Ivpb (Pre-Docked)) 100 mls @ 200 mls/hr IVPB Q6H-IV [facility] PRN Reason: Protocol Last Admin: 08/20/16 14:59 Dose: 200 mls/hr Magnesium Sulfate 4 gm/Insulin Human Regular 20 units / Thiamine HCl 100 mg/ Sodium Chloride 40 meq/ Potassium Chloride 10 meq/ Multivitamins /Minerals 10 ml / Potassium Phosphate 40 mm/ Folic Acid 1 mg/ Sterile Water/ Amino Acids / Dextrose 1,500 mls @ 62.5 mls/hr IVPB DAILY@1600 [facility] Insulin Aspart (Novolog Vial Sliding Scale -) 1 vial SQ ACHS [facility] PRN Reason: Protocol Last Admin: 08/20/16 12:00 Dose: 2 units Miscellaneous (Duragesic Patch Waste) 1 each TD PRN PRN PRN Reason: PAIN Last Admin: 08/18/16 12:50 Dose: 1 each Morphine Sulfate (Morphine Injection -) 2 mg IVPUSH Q4H PRN PRN Reason: PAIN - Objective Vital Signs: Vital Signs Temperature 99.1 F 08/20/16 13:49 Pulse Rate 106 H 08/20/16 13:49 Respiratory Rate 20 08/20/16 14:25 Blood Pressure 127/72 08/20/16 13:49 O2 Sat by Pulse Oximetry (%) 92 L 08/17/16 09:00 Patient remained altered minimally responsive HEENT: Trach at the place, need intermittent Vent support, mm most, anemia NECK; IJJ at place, no JVD CHEST: Good AE minimal crepts ABD; discharge from stoma, exudative collection EXT; extensive edema, skin peeling and gangrene of distal extremities 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 Derm; extensive skin peeling and gangrene of fingers and toes, p Labs: CBC, BMP 08/20/16 06:00 08/20/16 06:00 INR, PTT INR 1.50 (0.82-1.09) H 08/09/16 11:30 Fibrinogen > 700.0 mg/dL (238-498) H 07/31/16 05:40 Problem List - Problems (1) Perforated abdominal viscus Code(s): [id number] - (2) Acute metabolic encephalopathy Code(s): G93.41 - METABOLIC ENCEPHALOPATHY (3) Metabolic acidosis Code(s): E87.2 - ACIDOSIS (4) ZAHIRA (acute kidney injury) Code(s): N17.9 - ACUTE KIDNEY FAILURE, UNSPECIFIED (5) Thrombocytopenia Code(s): D69.6 - THROMBOCYTOPENIA, UNSPECIFIED (6) Ischemia of extremity Code(s): I99.8 - OTHER DISORDER OF CIRCULATORY SYSTEM (7) Sepsis Assessment/Plan: Due to perforated gastric ulcer on abx off pressors, spiked fever on Dual Pseudomnas coverage, yesterday DC Meropenom add Zosyn as per culture and sensitivity Prognosis is guarded. Code(s): A41.9 - SEPSIS, UNSPECIFIED ORGANISM
[2016-08-20] MEDS: FENTANYL PATCH WASTE TD PRN (15:54)
[2016-08-20] MEDS: MAGNESIUM SULFATE IVPB SCH (18:01)
[2016-08-20] MEDS: THIAMINE HCL IVPB SCH (18:01)
[2016-08-20] MEDS: [UNRECOGNIZED DRUG - OTHER] IVPB SCH (18:01)
[2016-08-20] MEDS: INSULIN REGULAR IVPB SCH (18:01)
[2016-08-20] MEDS: FAT EMULSIONS 250 ML IV SCH (21:26)
[2016-08-21] MEDS: morphine CARPU-JECT 2 MG/1 ML DISP.SYRIN IVPUSH PRN ×2 (02:00→14:16)
[2016-08-21] MEDS: PIPERACILLIN/TAZOB 4.5 GM 100 ML IVPB SCH ×4 (03:38→21:55)
[2016-08-21] MEDS: ALBUTEROL SO4 2.5/IPRATROPIUM 0.5 INH SOL 3 ML VIAL.NEB. NEB SCH ×4 (05:17→18:00)
[2016-08-21] MEDS: INSULIN SLIDING SCALE (NOVOLOG) 1 VIAL SQ SCH ×4 (06:26→22:02)
[2016-08-21 07:49] LABS: EOSINOPHIL 3.1 % (0-4.5); MCH 28.7 pg (25.7-33.7); MEAN CELL VOLUME 84.5 fl (80-96); MEAN PLT VOLUME 7.5 fl (7.5-11.1); NEUTROPHILS 73.2 % (42.8-82.8); PLATELET COUNT 469 K/MM3 (134-434); RDW 15.1 % (11.6-15.6); WHITE BLOOD COUNT 14.4 K/mm3 (4.0-10.0)
--- NOTE | 2016-08-21 09:49 | PN ---
Progress Note, Physician - Current Medication List Current Medications: Active Medications Acetaminophen (Ofirmev Injection -) 1,000 mg IVPB Q6H PRN PRN Reason: FEVER Last Admin: 08/19/16 12:28 Dose: 1,000 mg Albuterol/Ipratropium (Duoneb -) 1 amp NEB QIDR [facility] Last Admin: 08/21/16 05:17 Dose: 1 amp Chlorhexidine Gluconate (Peridex -) 15 ml MM BID [facility] Last Admin: 08/20/16 21:29 Dose: 15 ml Dextrose (D50w (Vial) -) 50 ml IVPUSH Q15M PRN PRN Reason: BLOOD SUGAR < 60 Enoxaparin Sodium (Lovenox -) 40 mg SQ BID [facility] Last Admin: 08/20/16 21:27 Dose: 40 mg Fentanyl (Duragesic 25mcg Patch -) 1 patch TD Q72H [facility] Last Admin: 08/20/16 15:29 Dose: 1 patch Furosemide (Lasix Injection -) 20 mg IVPB DAILY [facility] Last Admin: 08/20/16 11:06 Dose: 20 mg Fat Emulsion Intravenous (Intralipid -) 250 mls @ 20.833 mls/hr IV DAILY@2200 [facility] Last Admin: 08/20/16 21:26 Dose: 20.833 mls/hr Levofloxacin (Levaquin 750 Mg Premixed Ivpb -) 150 mls @ 100 mls/hr IVPB DAILY [facility] Last Admin: 08/20/16 09:19 Dose: 100 mls/hr Famotidine/Sodium Chloride (Pepcid 20 Mg Premixed Ivpb -) 50 mls @ 100 mls/hr IVPB BID [facility] Last Admin: 08/20/16 21:27 Dose: 100 mls/hr Fluconazole (Diflucan 200 Mg/D5w Premixed Ivpb -) 100 mls @ 100 mls/hr IVPB DAILY [facility] Last Admin: 08/20/16 12:01 Dose: 100 mls/hr Piperacillin Sod/Tazobactam Sod (Zosyn 4.5gm Ivpb (Pre-Docked)) 100 mls @ 200 mls/hr IVPB Q6H-IV [facility] PRN Reason: Protocol Last Admin: 08/21/16 03:38 Dose: 200 mls/hr Magnesium Sulfate 4 gm/Insulin Human Regular 20 units / Thiamine HCl 100 mg/ Sodium Chloride 40 meq/ Potassium Chloride 10 meq/ Multivitamins /Minerals 10 ml / Potassium Phosphate 40 mm/ Folic Acid 1 mg/ Sterile Water/ Amino Acids / Dextrose 1,500 mls @ 62.5 mls/hr IVPB DAILY@1600 [facility] Last Admin: 08/20/16 18:01 Dose: 62.5 mls/hr Insulin Aspart (Novolog Vial Sliding Scale -) 1 vial SQ ACHS [facility] PRN Reason: Protocol Last Admin: 08/21/16 06:26 Dose: 4 units Miscellaneous (Duragesic Patch Waste) 1 each TD PRN PRN PRN Reason: PAIN Last Admin: 08/20/16 15:54 Dose: 1 each Morphine Sulfate (Morphine Injection -) 2 mg IVPUSH Q4H PRN PRN Reason: PAIN Last Admin: 08/21/16 02:00 Dose: 2 mg - Objective Vital Signs: Vital Signs Temperature 99 F 08/20/16 22:00 Pulse Rate 100 H 08/20/16 22:00 Respiratory Rate 16 08/21/16 06:20 Blood Pressure 124/67 08/20/16 22:00 O2 Sat by Pulse Oximetry (%) 97 08/20/16 09:00 Labs: CBC, BMP 08/21/16 06:00 INR, PTT INR 1.50 (0.82-1.09) H 08/09/16 11:30 Fibrinogen > 700.0 mg/dL (238-498) H 07/31/16 05:40 Problem List - Problems (1) Abdominal pain Code(s): R10.9 - UNSPECIFIED ABDOMINAL PAIN Qualifiers: Abdominal location: periumbilical Qualified Code(s): R10.33 - Periumbilical pain (2) Perforated abdominal viscus Code(s): [id number] - (3) Perforated viscus Code(s): R19.8 - OTH SYMPTOMS AND SIGNS INVOLVING THE DGSTV SYS AND ABDOMEN (4) Hypertension Code(s): I10 - ESSENTIAL (PRIMARY) HYPERTENSION Qualifiers: Hypertension type: essential hypertension Qualified Code(s): I10 - Essential (primary) hypertension Assessment/Plan 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 Can consider , upper g.i / and upper endoscopy to consider placing a feeding tube beyond the pylorus, / PEG tube. Discussed with Will request consult with Dr. Garcia. Has dry gangrene pof legs and hands.
[2016-08-21 10:06] LABS: ALBUMIN 1.2 g/dl (3.4-5.0); ALK PHOS 184 U/L (45-117); ANION GAP 10 (8-16); BILIRUBIN,TOTAL 0.3 mg/dL (0.2-1.0); CALCIUM 8.6 mg/dL (8.5-10.1); CO2 29 mmol/L (21-32); CREATININE 0.4 mg/dL (0.55-1.02); GLUCOSE,RANDOM 203 mg/dL (74-106); MAGNESIUM 1.8 mg/dL (1.8-2.4); PHOSPHOROUS 3.7 mg/dL (2.5-4.9); SGOT/AST 21 U/L (15-37); SGPT/ALT 15 U/L (12-78); TOT PROT 6.3 g/dl (6.4-8.2)
[2016-08-21] MEDS: FUROSEMIDE 40 MG/4 ML INJECTABLE VIAL IVPB SCH ×2 (11:08→11:11)
[2016-08-21] MEDS: ENOXAPARIN NA (PORCINE) 40 MG/0.4 ML DISP.SYRIN SQ SCH ×2 (11:12→21:56)
--- NOTE | 2016-08-21 11:26 | PN ---
Progress Note (short form) - Note Progress Note: NAD on AC mode of vent. 40% FiO2. Intake & Output 08/18/16 08/19/16 08/20/16 08/21/16 23:59 23:59 23:59 23:59 Intake Total 2906.5 2801 2480 1130 Output Total 1600 2350 4200 500 Balance 1306.5 451 -1720 630 Weight 154 lb 4 oz Last Vital Signs Temp Pulse Resp BP Pulse Ox 99 F 104 H 18 130/80 97 08/20/16 22:00 08/21/16 11:05 08/21/16 11:05 08/21/16 11:05 08/20/16 09:00 Active Medications Acetaminophen (Ofirmev Injection -) 1,000 mg IVPB Q6H PRN PRN Reason: FEVER Last Admin: 08/19/16 12:28 Dose: 1,000 mg Albuterol/Ipratropium (Duoneb -) 1 amp NEB QIDR [facility] Last Admin: 08/21/16 05:17 Dose: 1 amp Chlorhexidine Gluconate (Peridex -) 15 ml MM BID [facility] Last Admin: 08/20/16 21:29 Dose: 15 ml Dextrose (D50w (Vial) -) 50 ml IVPUSH Q15M PRN PRN Reason: BLOOD SUGAR < 60 Enoxaparin Sodium (Lovenox -) 40 mg SQ BID [facility] Last Admin: 08/21/16 11:12 Dose: 40 mg Fentanyl (Duragesic 25mcg Patch -) 1 patch TD Q72H [facility] Last Admin: 08/20/16 15:29 Dose: 1 patch Furosemide (Lasix Injection -) 20 mg IVPB DAILY [facility] Last Admin: 08/21/16 11:11 Dose: 20 mg Fat Emulsion Intravenous (Intralipid -) 250 mls @ 20.833 mls/hr IV DAILY@2200 [facility] Last Admin: 08/20/16 21:26 Dose: 20.833 mls/hr Famotidine/Sodium Chloride (Pepcid 20 Mg Premixed Ivpb -) 50 mls @ 100 mls/hr IVPB BID [facility] Last Admin: 08/20/16 21:27 Dose: 100 mls/hr Piperacillin Sod/Tazobactam Sod (Zosyn 4.5gm Ivpb (Pre-Docked)) 100 mls @ 200 mls/hr IVPB Q6H-IV [facility] PRN Reason: Protocol Last Admin: 08/21/16 09:55 Dose: 200 mls/hr Magnesium Sulfate 4 gm/Insulin Human Regular 20 units / Thiamine HCl 100 mg/ Sodium Chloride 40 meq/ Potassium Chloride 10 meq/ Multivitamins /Minerals 10 ml / Potassium Phosphate 40 mm/ Folic Acid 1 mg/ Sterile Water/ Amino Acids / Dextrose 1,500 mls @ 62.5 mls/hr IVPB DAILY@1600 [facility] Last Admin: 08/20/16 18:01 Dose: 62.5 mls/hr Insulin Aspart (Novolog Vial Sliding Scale -) 1 vial SQ ACHS [facility] PRN Reason: Protocol Last Admin: 08/21/16 06:26 Dose: 4 units Miscellaneous (Duragesic Patch Waste) 1 each TD PRN PRN PRN Reason: PAIN Last Admin: 08/20/16 15:54 Dose: 1 each Morphine Sulfate (Morphine Injection -) 2 mg IVPUSH Q4H PRN PRN Reason: PAIN Last Admin: 08/21/16 02:00 Dose: 2 mg Gen: Trached, arousable Heart: RRR Lung: scattered rhonchi Abd: soft, dressings intact Ext: cold, hypoperfused, blackened Laboratory Results - last 24 hr 08/20/16 08/20/16 08/20/16 11:29 17:16 21:06 WBC RBC Hgb Hct MCV MCHC RDW Plt Count MPV Neutrophils % Lymphocytes % Monocytes % Eosinophils % Basophils % Sodium Potassium Chloride Carbon Dioxide Anion Gap BUN Creatinine Creat Clearance w eGFR POC Glucometer 218 172 128 Random Glucose Calcium Phosphorus Magnesium Total Bilirubin AST ALT Alkaline Phosphatase Total Protein Albumin 08/21/16 08/21/16 08/21/16 05:26 06:00 06:00 WBC 14.4 H RBC 3.29 L Hgb 9.5 L Hct 27.8 L MCV 84.5 MCHC 34.0 RDW 15.1 Plt Count 469 H MPV 7.5 Neutrophils % 73.2 Lymphocytes % 13.0 D Monocytes % 9.7 Eosinophils % 3.1 Basophils % 1.0 Sodium 135 L Potassium 4.4 Chloride 96 L Carbon Dioxide 29 Anion Gap 10 BUN 22 H Creatinine 0.4 L Creat Clearance w eGFR > 60 POC Glucometer 202 Random Glucose 203 H D Calcium 8.6 Phosphorus 3.7 Magnesium 1.8 Total Bilirubin 0.3 D AST 21 ALT 15 Alkaline Phosphatase 184 H Total Protein 6.3 L Albumin 1.2 L ASSESSMENT AND PLAN: Perforated Duodenal Ulcer Peritonitis s/p ex-lap/omental patch repair 07/16 Acute Respiratory Failure Septic Shock Acute Kidney Injury Lactic Acidosis Leukopenia/Thrombocytopenia likely from sepsis DM Encephalopathy -> etiology to be determined - Maintain current vent settings - ABX per ID - taper FiO2 to keep Spo2 >90% - transfuse platelets if <20K, cryo if fibrinogen <100 - DVT/GI prophylaxis - Would continue family discussions regarding GOC -> Overall expected outcome for meaningful recovery is not expected. previously stated that Crystal would not want to be maintained on chronic support in a skilled facility Dr Dubon
[2016-08-21] MEDS: FAMOTIDINE 20 MG/50 ML IVPB 50 ML IVPB SCH ×2 (11:53→21:57)
[2016-08-21] MEDS: CHLORHEXIDINE GLUCONATE 0.12% 15ML CUP MM SCH ×2 (12:00→21:57)
[2016-08-21] MEDS: LEVOFLOXACIN 750 MG IVPB 150 ML IVPB SCH (12:00)
[2016-08-21] MEDS: FLUCONAZOLE 200 MG/D5W 100 ML IVPB SCH ×2 (12:00→16:44)
[2016-08-21] MEDS ORDERED: PT OWN MED DRAWER 7, Y5N ONE ×3 (13:35→21:51)
[2016-08-21] MEDS ORDERED: FLUCONAZOLE 200 MG/D5W 100 ML IVPB ONE (13:45)
--- NOTE | 2016-08-21 14:01 | PN ---
Progress Note, Physician Chief Complaint: Remained at her base line , low grade fever , opens eye to verbal command, on Vent Saturating well. History of Present Illness: 65-year-old F H/O hypertension, hypercholesterolemia, T2DM, ETOH abuse, was presented to ED with abd pain and weight loss underwent exploratory laprotomy for perforated duodenal ulcer on 07/21/16 developed hypotention and sepsis intubate now on trach, colostomy and TPN.on Vent - Current Medication List Current Medications: Active Medications Acetaminophen (Ofirmev Injection -) 1,000 mg IVPB Q6H PRN PRN Reason: FEVER Last Admin: 08/19/16 12:28 Dose: 1,000 mg Albuterol/Ipratropium (Duoneb -) 1 amp NEB QIDR [facility] Last Admin: 08/21/16 12:00 Dose: 1 amp Chlorhexidine Gluconate (Peridex -) 15 ml MM BID [facility] Last Admin: 08/20/16 21:29 Dose: 15 ml Dextrose (D50w (Vial) -) 50 ml IVPUSH Q15M PRN PRN Reason: BLOOD SUGAR < 60 Enoxaparin Sodium (Lovenox -) 40 mg SQ BID [facility] Last Admin: 08/21/16 11:12 Dose: 40 mg Fentanyl (Duragesic 25mcg Patch -) 1 patch TD Q72H [facility] Last Admin: 08/20/16 15:29 Dose: 1 patch Furosemide (Lasix Injection -) 20 mg IVPB DAILY [facility] Last Admin: 08/21/16 11:11 Dose: 20 mg Fat Emulsion Intravenous (Intralipid -) 250 mls @ 20.833 mls/hr IV DAILY@2200 [facility] Last Admin: 08/20/16 21:26 Dose: 20.833 mls/hr Famotidine/Sodium Chloride (Pepcid 20 Mg Premixed Ivpb -) 50 mls @ 100 mls/hr IVPB BID [facility] Last Admin: 08/21/16 11:53 Dose: 100 mls/hr Piperacillin Sod/Tazobactam Sod (Zosyn 4.5gm Ivpb (Pre-Docked)) 100 mls @ 200 mls/hr IVPB Q6H-IV [facility] PRN Reason: Protocol Last Admin: 08/21/16 09:55 Dose: 200 mls/hr Magnesium Sulfate 4 gm/Insulin Human Regular 20 units / Thiamine HCl 100 mg/ Sodium Chloride 40 meq/ Potassium Chloride 10 meq/ Multivitamins /Minerals 10 ml / Potassium Phosphate 40 mm/ Folic Acid 1 mg/ Sterile Water/ Amino Acids / Dextrose 1,500 mls @ 62.5 mls/hr IVPB DAILY@1600 [facility] Last Admin: 08/20/16 18:01 Dose: 62.5 mls/hr Fluconazole (Diflucan 200 Mg/D5w Premixed Ivpb -) 100 mls @ 100 mls/hr IVPB DAILY [facility] Levofloxacin (Levaquin 750 Mg Premixed Ivpb -) 150 mls @ 100 mls/hr IVPB DAILY@ 0800 [facility] Insulin Aspart (Novolog Vial Sliding Scale -) 1 vial SQ ACHS [facility] PRN Reason: Protocol Last Admin: 08/21/16 13:00 Dose: 2 units Miscellaneous (Duragesic Patch Waste) 1 each TD PRN PRN PRN Reason: PAIN Last Admin: 08/20/16 15:54 Dose: 1 each Morphine Sulfate (Morphine Injection -) 2 mg IVPUSH Q4H PRN PRN Reason: PAIN Last Admin: 08/21/16 02:00 Dose: 2 mg - Objective Vital Signs: Vital Signs Temperature 98.8 F 08/21/16 12:00 Pulse Rate 104 H 08/21/16 11:05 Respiratory Rate 18 08/21/16 13:25 Blood Pressure 130/80 08/21/16 11:05 O2 Sat by Pulse Oximetry (%) 97 08/20/16 09:00 Patient remained altered minimally responsive, on Vent HEENT: Trach at the place, need intermittent Vent support, mm most, anemia NECK; IJJ at place, no JVD CHEST: Good AE minimal crepts ABD; discharge from stoma, exudative collection EXT; extensive edema, skin peeling and 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 Derm; extensive skin peeling and gangrene of fingers and toes, p Labs: CBC, BMP 08/21/16 06:00 08/21/16 06:00 INR, PTT INR 1.50 (0.82-1.09) H 08/09/16 11:30 Fibrinogen > 700.0 mg/dL (238-498) H 07/31/16 05:40 Problem List - Problems (1) Perforated abdominal viscus Assessment/Plan: Patient present with Rt UQ pain and with free air, Duodenal ulcer perforation s /p surgery. now fistula formation draining exudates. Code(s): [id number] - (2) Acute metabolic encephalopathy Assessment/Plan: Secondary to hypoperfusion due to septic shock, at present gradually improving. Code(s): G93.41 - METABOLIC ENCEPHALOPATHY (3) Metabolic acidosis Assessment/Plan: Improved Code(s): E87.2 - ACIDOSIS (4) ZAHIRA (acute kidney injury) Assessment/Plan: Resolved Code(s): N17.9 - ACUTE KIDNEY FAILURE, UNSPECIFIED (5) Thrombocytopenia Assessment/Plan: Due to sepsis, Platelet count improved Code(s): D69.6 - THROMBOCYTOPENIA, UNSPECIFIED (6) Ischemia of extremity Assessment/Plan: Ischemia off all extremities due to prolonged vasopressor use, patient needs pressure to maintain BP Code(s): I99.8 - OTHER DISORDER OF CIRCULATORY SYSTEM (7) Sepsis Assessment/Plan: Due to perforated gastric ulcer on abx and pressors. Prognosis is guarded. Code(s): A41.9 - SEPSIS, UNSPECIFIED ORGANISM
--- NOTE | 2016-08-21 14:01 | PN ---
Progress Note, Physician History of Present Illness: patient continues to be intubated now becoming afebrile - Current Medication List Current Medications: Active Medications Acetaminophen (Ofirmev Injection -) 1,000 mg IVPB Q6H PRN PRN Reason: FEVER Last Admin: 08/19/16 12:28 Dose: 1,000 mg Albuterol/Ipratropium (Duoneb -) 1 amp NEB QIDR [facility] Last Admin: 08/21/16 12:00 Dose: 1 amp Chlorhexidine Gluconate (Peridex -) 15 ml MM BID [facility] Last Admin: 08/20/16 21:29 Dose: 15 ml Dextrose (D50w (Vial) -) 50 ml IVPUSH Q15M PRN PRN Reason: BLOOD SUGAR < 60 Enoxaparin Sodium (Lovenox -) 40 mg SQ BID [facility] Last Admin: 08/21/16 11:12 Dose: 40 mg Fentanyl (Duragesic 25mcg Patch -) 1 patch TD Q72H [facility] Last Admin: 08/20/16 15:29 Dose: 1 patch Furosemide (Lasix Injection -) 20 mg IVPB DAILY [facility] Last Admin: 08/21/16 11:11 Dose: 20 mg Fat Emulsion Intravenous (Intralipid -) 250 mls @ 20.833 mls/hr IV DAILY@2200 [facility] Last Admin: 08/20/16 21:26 Dose: 20.833 mls/hr Famotidine/Sodium Chloride (Pepcid 20 Mg Premixed Ivpb -) 50 mls @ 100 mls/hr IVPB BID [facility] Last Admin: 08/21/16 11:53 Dose: 100 mls/hr Piperacillin Sod/Tazobactam Sod (Zosyn 4.5gm Ivpb (Pre-Docked)) 100 mls @ 200 mls/hr IVPB Q6H-IV [facility] PRN Reason: Protocol Last Admin: 08/21/16 09:55 Dose: 200 mls/hr Magnesium Sulfate 4 gm/Insulin Human Regular 20 units / Thiamine HCl 100 mg/ Sodium Chloride 40 meq/ Potassium Chloride 10 meq/ Multivitamins /Minerals 10 ml / Potassium Phosphate 40 mm/ Folic Acid 1 mg/ Sterile Water/ Amino Acids / Dextrose 1,500 mls @ 62.5 mls/hr IVPB DAILY@1600 [facility] Last Admin: 08/20/16 18:01 Dose: 62.5 mls/hr Fluconazole (Diflucan 200 Mg/D5w Premixed Ivpb -) 100 mls @ 100 mls/hr IVPB DAILY [facility] Levofloxacin (Levaquin 750 Mg Premixed Ivpb -) 150 mls @ 100 mls/hr IVPB DAILY@ 0800 [facility] Insulin Aspart (Novolog Vial Sliding Scale -) 1 vial SQ ACHS [facility] PRN Reason: Protocol Last Admin: 08/21/16 13:00 Dose: 2 units Miscellaneous (Duragesic Patch Waste) 1 each TD PRN PRN PRN Reason: PAIN Last Admin: 08/20/16 15:54 Dose: 1 each Morphine Sulfate (Morphine Injection -) 2 mg IVPUSH Q4H PRN PRN Reason: PAIN Last Admin: 08/21/16 02:00 Dose: 2 mg - Objective Vital Signs: Vital Signs Temperature 98.8 F 08/21/16 12:00 Pulse Rate 104 H 08/21/16 11:05 Respiratory Rate 18 08/21/16 13:25 Blood Pressure 130/80 08/21/16 11:05 O2 Sat by Pulse Oximetry (%) 97 08/20/16 09:00 Constitutional: Yes: No Distress, Calm Cardiovascular: Yes: Regular Rate and Rhythm Respiratory: Yes: Mechanically Ventilated, Other (secretions less) Gastrointestinal: Yes: Normal Bowel Sounds, Soft Musculoskeletal: Yes: Other Extremities: Yes: Other (dry gangrene of both toes and fingers) Neurological: Yes: Alert, Other Labs: CBC, BMP 08/21/16 06:00 08/21/16 06:00 INR, PTT INR 1.50 (0.82-1.09) H 08/09/16 11:30 Fibrinogen > 700.0 mg/dL (238-498) H 07/31/16 05:40 Assessment/Plan Problem List - Problems (1) Abdominal pain Code(s): R10.9 - UNSPECIFIED ABDOMINAL PAIN Qualifiers: Qualified Code(s): R10.33 - Periumbilical pain (2) Perforated abdominal viscus Code(s): [id number] - (3) Perforated viscus Code(s): R19.8 - OTH SYMPTOMS AND SIGNS INVOLVING THE DGSTV SYS AND ABDOMEN (4) Hypertension Code(s): I10 - ESSENTIAL (PRIMARY) HYPERTENSION Qualifiers: Qualified Code(s): I10 - Essential (primary) hypertension lactic acidosis fevers generalized swelling gangrene of the tip of the fingers noted pseudomonas pneumonia plan patient stable continue suctioning patient on tpn will need [facility] plan of nutrition rest as per primary
--- NOTE | 2016-08-21 14:02 | PN ---
Progress Note (short form) - Note Progress Note: Neurology History of Present Illness The patient is a 65-year-old woman, with a significant past medical history of hypertension, hypercholesterolemia, diabetes mellitus and GI disorders who presented to the emergency department via walk-in for further evaluation of abdominal pain for the past 3-4 days with unintentional 20 lb weight loss over the past three months. She required surgical intervention as documented by Dr. Louise. Thereafter, complicated course and patient in ICU, off sedation for several days. CT head without acute changes. Patient was not awakening initially and concern was hypoperfusion and possible anoxic brain injury. 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 Since, has awoken and is keeps eye open, occasional tracking and previously occasional spontaneous extremity movement but minimal now. Does have notable gangrene of fingers and toes. protecting airway and remains intubated and on vent, status post trach as she was not able to tolerate weaning. Toxic metabolic vs hypoperfusion and anoxic brain injury. Would benefit from MRI but not able to obtain due to vent. Has sepsis and getting ongoing treatment. Previously opening mouth and sticking out tongue to command but no significant cognitive activity at this time. Has been downgraded from ICU to floor status and minimal activity. Not interactive with me. No significant clinical improvement thus far. *Physical Exam Vital Signs Temperature 98.8 F 08/21/16 12:00 Pulse Rate 104 H 08/21/16 11:05 Respiratory Rate 18 08/21/16 13:25 Blood Pressure 130/80 08/21/16 11:05 O2 Sat by Pulse Oximetry (%) 97 08/20/16 09:00 GENERAL: Awake Frail appearing. HEENT: Normocephalic, atraumatic. +Temporal wasting. PERRL, EOMI. No conjunctival pallor. +Sclera are icteric. +Dry mucous membranes. Oropharynx is clear. NECK: Supple. Full ROM. No JVD. CARDIOVASCULAR: Tachycardic rate but regular rate and rhythm. No murmurs, rubs, or gallops. PULMONARY: +Diffuse dyspneic breath sounds that are equal bilaterally. No wheezing, crackles or rhonchi. ABDOMINAL: Firm but soft abdomen. Diffuse tenderness to palpation without rebound or guarding. Non-distended. No organomegaly. Normoactive bowel sounds. MUSCULOSKELETAL: Normal range of motion at all joints. No bony deformities or tenderness. No CVA tenderness. EXTREMITIES: No cyanosis. No clubbing. No edema. No calf tenderness. SKIN: Tenting of the skin. Jaundiced. No rashes. NEUROLOGICAL: Trached, ventilation, opens eyes and minimal movement of extremities but not cooperating with confrontation testing, withdraws to pain, not following complex commands, not tracking CBCD WBC 14.4 K/mm3 (4.0-10.0) H 08/21/16 06:00 RBC 3.29 M/mm3 (3.60-5.2) L 08/21/16 06:00 Hgb 9.5 GM/dL (10.7-15.3) L 08/21/16 06:00 Hct 27.8 % (32.4-45.2) L 08/21/16 06:00 MCV 84.5 fl (80-96) 08/21/16 06:00 MCHC 34.0 g/dl (32.0-36.0) 08/21/16 06:00 RDW 15.1 % (11.6-15.6) 08/21/16 06:00 Plt Count 469 K/MM3 (134-434) H 08/21/16 06:00 MPV 7.5 fl (7.5-11.1) 08/21/16 06:00 CMP Sodium 135 mmol/L (136-145) L 08/21/16 06:00 Potassium 4.4 mmol/L (3.5-5.1) 08/21/16 06:00 Chloride 96 mmol/L (98-107) L 08/21/16 06:00 Carbon Dioxide 29 mmol/L (21-32) 08/21/16 06:00 Anion Gap 10 (8-16) 08/21/16 06:00 BUN 22 mg/dL (7-18) H 08/21/16 06:00 Creatinine 0.4 mg/dL (0.55-1.02) L 08/21/16 06:00 Creat Clearance w eGFR > 60 (>60) 08/21/16 06:00 Calcium 8.6 mg/dL (8.5-10.1) 08/21/16 06:00 Total Bilirubin 0.3 mg/dL (0.2-1.0) D 08/21/16 06:00 AST 21 U/L (15-37) 08/21/16 06:00 ALT 15 U/L (12-78) 08/21/16 06:00 Alkaline Phosphatase 184 U/L (45-117) H 08/21/16 06:00 Total Protein 6.3 g/dl (6.4-8.2) L 08/21/16 06:00 Albumin 1.2 g/dl (3.4-5.0) L 08/21/16 06:00 EXAM: CT/HEAD CT WITHOUT CONTRAST IMPRESSION: Comparison study MRI of the brain February 23, 2015. Findings. Serial axial images of the brain were obtained from foramen magnum to the cranial vertex without intravenous contrast, with coronal, sagittal reconstruction images. No evidence of hydrocephalus, acute subarachnoid hemorrhage, acute intra-axial or extra-axial fluid collection consistent with subdural or epidural hematoma. No mass effect, midline shift, acute ischemic changes, herniation or edema is present. Normal yancey matter white matter differentiation. The cortical sulci, sylvian fissures, perimesencephalic cisterns are not effaced. The CSF spaces are age-appropriate. Supratentorial periventricular chronic white matter microangiopathic ischemic changes are noted. Examination of the bone windows show no fracture. Normal intracranial physiological calcifications are observed. The cranial vascular calcifications are noted. The visualized paranasal sinuses and mastoid air cells are clear. Medical Decision Making 65-year-old woman, with a significant past medical history of hypertension, hypercholesterolemia, diabetes mellitus and GI disorders who presented to the emergency department via walk-in for further evaluation of abdominal pain for the past 3-4 days with unintentional 20 lb weight loss over the past three months. She required surgical intervention as documented by Dr. Louise. Thereafter , complicated course and patient in ICU, off sedation for several days. CT head without acute changes. Patient was not awakening initially and concern was hypoperfusion and possible anoxic brain injury. Since, has awoken and is keeps eye open, some tracking previously and producing spontaneous extremity movement previously. Toxic metabolic vs hypoperfusion and anoxic brain injury. Would benefit from MRI but not able to obtain due to vent. Continue sepsis treatment Unable to be weaned off vent, status post trach Had respiratory intstability overnight, stabilized Continued medical management for multiple complications Remains somnolent Encourage continued close monitoring, patient with prolonged hospitalization Prognosis guarded
--- NOTE | 2016-08-21 15:05 | PN ---
Progress Note (short form) - Note Progress Note: Renal Follow up for ZAHIRA/Metabolic acidosis Pt seen and examined at the bedside on Vent, A/C ,40% FiO2 afebrile on TPN Vital Signs Temperature 98.8 F 08/21/16 12:00 Pulse Rate 104 H 08/21/16 11:05 Respiratory Rate 18 08/21/16 13:25 Blood Pressure 130/80 08/21/16 11:05 O2 Sat by Pulse Oximetry (%) 97 08/20/16 09:00 Intake & Output 08/18/16 08/19/16 08/20/16 08/21/16 23:59 23:59 23:59 23:59 Intake Total 2906.5 2801 2480 1180 Output Total 1600 2350 4200 500 Balance 1306.5 451 -1720 680 Weight 154 lb 4 oz Gen: on Vent, NAD CVS: RRR, No M/R Lungs: Dec BS b/l lung andino Ext: 2+ edema in LE CBC, BMP 08/21/16 06:00 08/21/16 06:00 Current Medications Acetaminophen (Ofirmev Injection -) 1,000 mg IVPB Q6H PRN PRN Reason: FEVER Last Admin: 08/19/16 12:28 Dose: 1,000 mg Albuterol/Ipratropium (Duoneb -) 1 amp NEB QIDR [facility] Last Admin: 08/21/16 12:00 Dose: 1 amp Chlorhexidine Gluconate (Peridex -) 15 ml MM BID [facility] Last Admin: 08/20/16 21:29 Dose: 15 ml Dextrose (D50w (Vial) -) 50 ml IVPUSH Q15M PRN PRN Reason: BLOOD SUGAR < 60 Enoxaparin Sodium (Lovenox -) 40 mg SQ BID [facility] Last Admin: 08/21/16 11:12 Dose: 40 mg Fentanyl (Duragesic 25mcg Patch -) 1 patch TD Q72H [facility] Last Admin: 08/20/16 15:29 Dose: 1 patch Furosemide (Lasix Injection -) 20 mg IVPB DAILY [facility] Last Admin: 08/21/16 11:11 Dose: 20 mg Fat Emulsion Intravenous (Intralipid -) 250 mls @ 20.833 mls/hr IV DAILY@2200 [facility] Last Admin: 08/20/16 21:26 Dose: 20.833 mls/hr Famotidine/Sodium Chloride (Pepcid 20 Mg Premixed Ivpb -) 50 mls @ 100 mls/hr IVPB BID [facility] Last Admin: 08/21/16 11:53 Dose: 100 mls/hr Piperacillin Sod/Tazobactam Sod (Zosyn 4.5gm Ivpb (Pre-Docked)) 100 mls @ 200 mls/hr IVPB Q6H-IV [facility] PRN Reason: Protocol Last Admin: 08/21/16 09:55 Dose: 200 mls/hr Magnesium Sulfate 4 gm/Insulin Human Regular 20 units / Thiamine HCl 100 mg/ Sodium Chloride 40 meq/ Potassium Chloride 10 meq/ Multivitamins /Minerals 10 ml / Potassium Phosphate 40 mm/ Folic Acid 1 mg/ Sterile Water/ Amino Acids / Dextrose 1,500 mls @ 62.5 mls/hr IVPB DAILY@1600 [facility] Last Admin: 08/20/16 18:01 Dose: 62.5 mls/hr Fluconazole (Diflucan 200 Mg/D5w Premixed Ivpb -) 100 mls @ 100 mls/hr IVPB DAILY [facility] Insulin Aspart (Novolog Vial Sliding Scale -) 1 vial SQ ACHS [facility] PRN Reason: Protocol Last Admin: 08/21/16 13:00 Dose: 2 units Miscellaneous (Duragesic Patch Waste) 1 each TD PRN PRN PRN Reason: PAIN Last Admin: 08/20/16 15:54 Dose: 1 each Morphine Sulfate (Morphine Injection -) 2 mg IVPUSH Q4H PRN PRN Reason: PAIN Last Admin: 08/21/16 14:16 Dose: 2 mg A/P 65 year old woman with PMhx of hypertension, hypercholesterolemia, diabetes mellitus who presented with Abd pain and found to have perforated Abd viscus s/ p emergent Sx now with Septic Shock, ZAHIRA and Metabolic Acidosis. #Sepsis/Perforated Abd Viscus/Abscess management as per Sx/ID Vent support #NPO on TPN/Electrolyte abnormalities Continue currnet TPN Monitor Elcectrolytes daily #Edema from 3rd spacing continue TPN for nutritional support continue Lasix daily prognosis remains guarded Cyril Tubbs DO
--- NOTE | 2016-08-21 15:52 | PN ---
Progress Note (short form) - Note Progress Note: Spoke with Dr. Louise today. Explained that he wanted some form of enteral tube placed to give contrast through to assess fistula healing and possibly start enteral feeds. 12Fr. enteral feeding tube placed through left nare without difficulty, air gallardo auscultated in luq and tethered to nose at 60cm steve. - Ordered CXR / AXR to assess for tube position - Spoke w/ Dr. Ford, radiologist. needed clarification as to what he wanted done in terms of evaluating fistula / treating fistula. I called Dr. Louise and gave him Dr. Ford's number so that they could discuss things further.
[2016-08-21] MEDS: INSULIN REGULAR IVPB SCH (18:52)
[2016-08-21] MEDS: THIAMINE HCL IVPB SCH (18:52)
[2016-08-21] MEDS: MAGNESIUM SULFATE IVPB SCH (18:52)
[2016-08-21] MEDS: [UNRECOGNIZED DRUG - OTHER] IVPB SCH (18:52)
[2016-08-21] MEDS: FAT EMULSIONS 250 ML IV SCH (21:56)
[2016-08-22] MEDS: ALBUTEROL SO4 2.5/IPRATROPIUM 0.5 INH SOL 3 ML VIAL.NEB. NEB SCH ×5 (00:36→23:09)
[2016-08-22] MEDS: PIPERACILLIN/TAZOB 4.5 GM 100 ML IVPB SCH ×4 (02:46→21:39)
[2016-08-22] MEDS: INSULIN SLIDING SCALE (NOVOLOG) 1 VIAL SQ SCH ×4 (06:34→21:44)
[2016-08-22 07:38] LABS: BASOPHIL 1.1 % (0-2.0); EOSINOPHIL 4.7 % (0-4.5); MCH 28.6 pg (25.7-33.7); MCHC 33.6 g/dl (32.0-36.0); MEAN CELL VOLUME 85.2 fl (80-96); MEAN PLT VOLUME 7.2 fl (7.5-11.1); NEUTROPHILS 74.3 % (42.8-82.8); PLATELET COUNT 420 K/MM3 (134-434); RDW 14.7 % (11.6-15.6); WHITE BLOOD COUNT 11.6 K/mm3 (4.0-10.0)
[2016-08-22] MEDS ORDERED: LEVOFLOXACIN 750 MG IVPB 150 ML IVPB SCH (08:00)
[2016-08-22 08:14] LABS: ALBUMIN 1.3 g/dl (3.4-5.0); ANION GAP 9 (8-16); CALCIUM 8.3 mg/dL (8.5-10.1); CO2 28 mmol/L (21-32); CREATININE 0.3 mg/dL (0.55-1.02); GLUCOSE,RANDOM 217 mg/dL (74-106); PHOSPHOROUS 3.3 mg/dL (2.5-4.9); SGOT/AST 19 U/L (15-37); SGPT/ALT 15 U/L (12-78)
[2016-08-22 08:15] LABS: ALK PHOS 201 U/L (45-117); BILIRUBIN,TOTAL 0.6 mg/dL (0.2-1.0); TOT PROT 6.3 g/dl (6.4-8.2)
[2016-08-22] MEDS ORDERED: PT OWN MED DRAWER 7, Y5N ONE (09:27)
[2016-08-22] MEDS: ENOXAPARIN NA (PORCINE) 40 MG/0.4 ML DISP.SYRIN SQ SCH ×2 (09:50→21:39)
[2016-08-22] MEDS: CHLORHEXIDINE GLUCONATE 0.12% 15ML CUP MM SCH ×2 (09:50→23:26)
[2016-08-22] MEDS: FUROSEMIDE 40 MG/4 ML INJECTABLE VIAL IVPB SCH (11:01)
--- NOTE | 2016-08-22 12:07 | PN ---
Progress Note (short form) - Note Progress Note: Renal Follow up for ZAHIRA/Metabolic acidosis Pt seen and examined at the bedside on Vent, A/C ,40% FiO2 febrile this am NGT placed yesterday by GI on TPN Vital Signs Temperature 100.5 F H 08/22/16 02:23 Pulse Rate 96 H 08/22/16 10:57 Respiratory Rate 19 08/22/16 10:57 Blood Pressure 124/60 08/22/16 10:57 O2 Sat by Pulse Oximetry (%) 97 08/20/16 09:00 Intake & Output 08/19/16 08/20/16 08/21/16 08/22/16 23:59 23:59 23:59 23:59 Intake Total 2801 2480 2210 1317 Output Total 2350 4200 2020 400 Balance 451 -1720 190 917 Weight 154 lb 4 oz Gen: on Vent, NAD CVS: RRR, No M/R Lungs: Dec BS b/l lung andino Ext: 2+ edema in LE CBC, BMP 08/22/16 06:45 08/22/16 06:45 Current Medications Acetaminophen (Ofirmev Injection -) 1,000 mg IVPB Q6H PRN PRN Reason: FEVER Last Admin: 08/19/16 12:28 Dose: 1,000 mg Albuterol/Ipratropium (Duoneb -) 1 amp NEB QIDR [facility] Last Admin: 08/22/16 06:58 Dose: 1 amp Chlorhexidine Gluconate (Peridex -) 15 ml MM BID [facility] Last Admin: 08/22/16 09:50 Dose: 15 ml Dextrose (D50w (Vial) -) 50 ml IVPUSH Q15M PRN PRN Reason: BLOOD SUGAR < 60 Enoxaparin Sodium (Lovenox -) 40 mg SQ BID [facility] Last Admin: 08/22/16 09:50 Dose: 40 mg Fentanyl (Duragesic 25mcg Patch -) 1 patch TD Q72H [facility] Last Admin: 08/20/16 15:29 Dose: 1 patch Furosemide (Lasix Injection -) 20 mg IVPB DAILY [facility] Last Admin: 08/22/16 11:01 Dose: 20 mg Fat Emulsion Intravenous (Intralipid -) 250 mls @ 20.833 mls/hr IV DAILY@2200 [facility] Last Admin: 08/21/16 21:56 Dose: 20.833 mls/hr Famotidine/Sodium Chloride (Pepcid 20 Mg Premixed Ivpb -) 50 mls @ 100 mls/hr IVPB BID [facility] Last Admin: 08/21/16 21:57 Dose: 100 mls/hr Piperacillin Sod/Tazobactam Sod (Zosyn 4.5gm Ivpb (Pre-Docked)) 100 mls @ 200 mls/hr IVPB Q6H-IV [facility] PRN Reason: Protocol Last Admin: 08/22/16 09:49 Dose: 200 mls/hr Magnesium Sulfate 4 gm/Insulin Human Regular 20 units / Thiamine HCl 100 mg/ Sodium Chloride 40 meq/ Potassium Chloride 10 meq/ Multivitamins /Minerals 10 ml / Potassium Phosphate 40 mm/ Folic Acid 1 mg/ Sterile Water/ Amino Acids / Dextrose 1,500 mls @ 62.5 mls/hr IVPB DAILY@1600 [facility] Last Admin: 08/21/16 18:52 Dose: 62.5 mls/hr Fluconazole (Diflucan 200 Mg/D5w Premixed Ivpb -) 100 mls @ 100 mls/hr IVPB DAILY [facility] Last Admin: 08/21/16 16:44 Dose: 100 mls/hr Insulin Aspart (Novolog Vial Sliding Scale -) 1 vial SQ ACHS [facility] PRN Reason: Protocol Last Admin: 08/22/16 06:34 Dose: 4 units Miscellaneous (Duragesic Patch Waste) 1 each TD PRN PRN PRN Reason: PAIN Last Admin: 08/20/16 15:54 Dose: 1 each Morphine Sulfate (Morphine Injection -) 2 mg IVPUSH Q4H PRN PRN Reason: PAIN Last Admin: 08/21/16 14:16 Dose: 2 mg A/P 65 year old woman with PMhx of hypertension, hypercholesterolemia, diabetes mellitus who presented with Abd pain and found to have perforated Abd viscus s/ p emergent Sx now with Septic Shock, ZAHIRA and Metabolic Acidosis. #Sepsis/Perforated Abd Viscus/Abscess management as per Sx/ID Vent support Febrile today, f/u cultures #NPO on TPN/Electrolyte abnormalities will increase NaCl content in TPN as pt with hyponatremia and w/o signs of over volume overload #Edema from 3rd spacing improved continue TPN and Lasix prognosis remains guarded Cyril Tubbs DO
--- NOTE | 2016-08-22 12:17 | PN ---
Progress Note, Physician Chief Complaint: Remained at her base line , low grade fever , opens eye to verbal command, on Vent Saturating well. History of Present Illness: 65-year-old F H/O hypertension, hypercholesterolemia, T2DM, ETOH abuse, was presented to ED with abd pain and weight loss underwent exploratory laprotomy for perforated duodenal ulcer on 07/21/16 developed hypotention and sepsis intubate now on trach, colostomy and TPN.on Vent - Current Medication List Current Medications: Active Medications Acetaminophen (Ofirmev Injection -) 1,000 mg IVPB Q6H PRN PRN Reason: FEVER Last Admin: 08/19/16 12:28 Dose: 1,000 mg Albuterol/Ipratropium (Duoneb -) 1 amp NEB QIDR [facility] Last Admin: 08/22/16 06:58 Dose: 1 amp Chlorhexidine Gluconate (Peridex -) 15 ml MM BID [facility] Last Admin: 08/22/16 09:50 Dose: 15 ml Dextrose (D50w (Vial) -) 50 ml IVPUSH Q15M PRN PRN Reason: BLOOD SUGAR < 60 Enoxaparin Sodium (Lovenox -) 40 mg SQ BID [facility] Last Admin: 08/22/16 09:50 Dose: 40 mg Fentanyl (Duragesic 25mcg Patch -) 1 patch TD Q72H [facility] Last Admin: 08/20/16 15:29 Dose: 1 patch Furosemide (Lasix Injection -) 20 mg IVPB DAILY [facility] Last Admin: 08/22/16 11:01 Dose: 20 mg Fat Emulsion Intravenous (Intralipid -) 250 mls @ 20.833 mls/hr IV DAILY@2200 [facility] Last Admin: 08/21/16 21:56 Dose: 20.833 mls/hr Famotidine/Sodium Chloride (Pepcid 20 Mg Premixed Ivpb -) 50 mls @ 100 mls/hr IVPB BID [facility] Last Admin: 08/21/16 21:57 Dose: 100 mls/hr Piperacillin Sod/Tazobactam Sod (Zosyn 4.5gm Ivpb (Pre-Docked)) 100 mls @ 200 mls/hr IVPB Q6H-IV [facility] PRN Reason: Protocol Last Admin: 08/22/16 09:49 Dose: 200 mls/hr Magnesium Sulfate 4 gm/Insulin Human Regular 20 units / Thiamine HCl 100 mg/ Sodium Chloride 40 meq/ Potassium Chloride 10 meq/ Multivitamins /Minerals 10 ml / Potassium Phosphate 40 mm/ Folic Acid 1 mg/ Sterile Water/ Amino Acids / Dextrose 1,500 mls @ 62.5 mls/hr IVPB DAILY@1600 [facility] Last Admin: 08/21/16 18:52 Dose: 62.5 mls/hr Fluconazole (Diflucan 200 Mg/D5w Premixed Ivpb -) 100 mls @ 100 mls/hr IVPB DAILY [facility] Last Admin: 08/21/16 16:44 Dose: 100 mls/hr Insulin Aspart (Novolog Vial Sliding Scale -) 1 vial SQ ACHS [facility] PRN Reason: Protocol Last Admin: 08/22/16 06:34 Dose: 4 units Miscellaneous (Duragesic Patch Waste) 1 each TD PRN PRN PRN Reason: PAIN Last Admin: 08/20/16 15:54 Dose: 1 each Morphine Sulfate (Morphine Injection -) 2 mg IVPUSH Q4H PRN PRN Reason: PAIN Last Admin: 08/21/16 14:16 Dose: 2 mg - Objective Vital Signs: Vital Signs Temperature 100.5 F H 08/22/16 02:23 Pulse Rate 96 H 08/22/16 10:57 Respiratory Rate 19 08/22/16 10:57 Blood Pressure 124/60 08/22/16 10:57 O2 Sat by Pulse Oximetry (%) 97 08/20/16 09:00 P Exam; Patient remained altered minimally responsive, on Vent HEENT: Trach at the place on Vent , need intermittent Vent support, mm most, anemia NECK; IJJ at place, no JVD CHEST: Good AE minimal crepts ABD; Colostomy bag at place, discahrge from abd fistula, discharge +, BS + , EXT; extensive edema, skin peeling and gangrene of distal extremities [employer]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 Derm; Extensive skin peeling and gangrene of fingers and toes, p Labs: CBC, BMP 08/22/16 06:45 08/22/16 06:45 INR, PTT INR 1.50 (0.82-1.09) H 08/09/16 11:30 Fibrinogen > 700.0 mg/dL (238-498) H 07/31/16 05:40 Problem List - Problems (1) Perforated abdominal viscus Assessment/Plan: Patient present with Rt UQ pain and with free air, Duodenal ulcer perforation s /p surgery. now fistula formation draining exudates.fistula still has discharge evaluate by surgery. and GI consult Code(s): [id number] - (2) Acute metabolic encephalopathy Assessment/Plan: Secondary to hypoperfusion due to septic shock, at present no significant improvement , most likely hypoxic encephalopathy. Code(s): G93.41 - METABOLIC ENCEPHALOPATHY (3) Metabolic acidosis Assessment/Plan: Improved Code(s): E87.2 - ACIDOSIS (4) ZAHIRA (acute kidney injury) Code(s): N17.9 - ACUTE KIDNEY FAILURE, UNSPECIFIED (5) Thrombocytopenia Assessment/Plan: Due to sepsis, Platelet count improved Code(s): D69.6 - THROMBOCYTOPENIA, UNSPECIFIED (6) Ischemia of extremity Code(s): I99.8 - OTHER DISORDER OF CIRCULATORY SYSTEM (7) Sepsis Assessment/Plan: Due to perforated gastric now of pressors, onIV fluconazole and Zosyn F/U cultures.s. Prognosis is guarded. Code(s): A41.9 - SEPSIS, UNSPECIFIED ORGANISM
[2016-08-22] MEDS: FAMOTIDINE 20 MG/50 ML IVPB 50 ML IVPB SCH ×2 (12:56→21:39)
[2016-08-22] MEDS ORDERED: INSULIN (NOVOLOG) ASPART 100 UNITS/ML 10ML VIAL ONE (12:59)
--- NOTE | 2016-08-22 13:28 | PN ---
Progress Note, Physician History of Present Illness: PULMONARY NO CHANGE ON VENT SUPPORT AC MODE,LETHARGIC - Current Medication List Current Medications: Active Medications Acetaminophen (Ofirmev Injection -) 1,000 mg IVPB Q6H PRN PRN Reason: FEVER Last Admin: 08/19/16 12:28 Dose: 1,000 mg Albuterol/Ipratropium (Duoneb -) 1 amp NEB QIDR [facility] Last Admin: 08/22/16 12:31 Dose: 1 amp Chlorhexidine Gluconate (Peridex -) 15 ml MM BID [facility] Last Admin: 08/22/16 09:50 Dose: 15 ml Dextrose (D50w (Vial) -) 50 ml IVPUSH Q15M PRN PRN Reason: BLOOD SUGAR < 60 Enoxaparin Sodium (Lovenox -) 40 mg SQ BID [facility] Last Admin: 08/22/16 09:50 Dose: 40 mg Fentanyl (Duragesic 25mcg Patch -) 1 patch TD Q72H [facility] Last Admin: 08/20/16 15:29 Dose: 1 patch Furosemide (Lasix Injection -) 20 mg IVPB DAILY [facility] Last Admin: 08/22/16 11:01 Dose: 20 mg Fat Emulsion Intravenous (Intralipid -) 250 mls @ 20.833 mls/hr IV DAILY@2200 [facility] Last Admin: 08/21/16 21:56 Dose: 20.833 mls/hr Famotidine/Sodium Chloride (Pepcid 20 Mg Premixed Ivpb -) 50 mls @ 100 mls/hr IVPB BID [facility] Last Admin: 08/22/16 12:56 Dose: 100 mls/hr Piperacillin Sod/Tazobactam Sod (Zosyn 4.5gm Ivpb (Pre-Docked)) 100 mls @ 200 mls/hr IVPB Q6H-IV [facility] PRN Reason: Protocol Last Admin: 08/22/16 09:49 Dose: 200 mls/hr Magnesium Sulfate 4 gm/Insulin Human Regular 20 units / Thiamine HCl 100 mg/ Sodium Chloride 40 meq/ Potassium Chloride 10 meq/ Multivitamins /Minerals 10 ml / Potassium Phosphate 40 mm/ Folic Acid 1 mg/ Sterile Water/ Amino Acids / Dextrose 1,500 mls @ 62.5 mls/hr IVPB DAILY@1600 [facility] Last Admin: 08/21/16 18:52 Dose: 62.5 mls/hr Fluconazole (Diflucan 200 Mg/D5w Premixed Ivpb -) 100 mls @ 100 mls/hr IVPB DAILY [facility] Last Admin: 08/21/16 16:44 Dose: 100 mls/hr Insulin Aspart (Novolog Vial Sliding Scale -) 1 vial SQ ACHS [facility] PRN Reason: Protocol Last Admin: 08/22/16 12:59 Dose: 2 units Miscellaneous (Duragesic Patch Waste) 1 each TD PRN PRN PRN Reason: PAIN Last Admin: 08/20/16 15:54 Dose: 1 each Morphine Sulfate (Morphine Injection -) 2 mg IVPUSH Q4H PRN PRN Reason: PAIN Last Admin: 08/21/16 14:16 Dose: 2 mg - Objective Vital Signs: Vital Signs Temperature 100.5 F H 08/22/16 12:15 Pulse Rate 96 H 08/22/16 10:57 Respiratory Rate 16 08/22/16 12:56 Blood Pressure 124/60 08/22/16 10:57 O2 Sat by Pulse Oximetry (%) 97 08/20/16 09:00 Constitutional: Yes: Thin, Other (LETHARGIC) Eyes: Yes: WNL HENT: Yes: WNL Neck: Yes: WNL (TRACH) Cardiovascular: Yes: Regular Rate and Rhythm, S1, S2 Respiratory: Yes: Rhonchi (SCATTERED [place]ARYB[place] RHONCHI) Gastrointestinal: Yes: Normal Bowel Sounds, Soft Extremities: Yes: Other (EXT BLACKENED,COOL) Edema: Yes Labs: CBC, BMP 08/22/16 06:45 08/22/16 06:45 INR, PTT INR 1.50 (0.82-1.09) H 08/09/16 11:30 Fibrinogen > 700.0 mg/dL (238-498) H 07/31/16 05:40 Problem List - Problems (1) ZAHIRA (acute kidney injury) Code(s): N17.9 - ACUTE KIDNEY FAILURE, UNSPECIFIED (2) Acute metabolic encephalopathy Code(s): G93.41 - METABOLIC ENCEPHALOPATHY (3) Ischemia of extremity Code(s): I99.8 - OTHER DISORDER OF CIRCULATORY SYSTEM (4) Metabolic acidemia Code(s): E87.2 - ACIDOSIS (5) Perforated abdominal viscus Code(s): [id number] - (6) Sepsis Code(s): A41.9 - SEPSIS, UNSPECIFIED ORGANISM (7) Acute respiratory failure Code(s): J96.00 - ACUTE RESPIRATORY FAILURE, UNSP W HYPOXIA OR HYPERCAPNIA Assessment/Plan A/P Perforated Duodenal Ulcer Peritonitis s/p ex-lap/omental patch repair 07/16 Enterocutaneous Fistula Acute Respiratory Failure S/P Septic Shock Lactic Acidosis resolved Leukopenia/Thrombocytopenia resolved DM DVT Gangrene - inhaled bronchodilators - antibiotics per ID - taper Fio2 to keep Spo2 >90% - continue anticoagulation - TPN per renal - vent support ac mode - DVT/GI prophylaxis - prognosis is poor, continue discussions regarding advanced directives and goals of care - recommend palliative due to failure to wean, anticipated amputations, poor quality of life - prognosis poor DR OSEI
[2016-08-22] MEDS: morphine CARPU-JECT 2 MG/1 ML DISP.SYRIN IVPUSH PRN (13:31)
[2016-08-22] MEDS: FLUCONAZOLE 200 MG/D5W 100 ML IVPB SCH (13:39)
--- NOTE | 2016-08-22 13:49 | PN ---
Progress Note, Physician History of Present Illness: patient continues to be intubated still with low grade fever - Current Medication List Current Medications: Active Medications Acetaminophen (Ofirmev Injection -) 1,000 mg IVPB Q6H PRN PRN Reason: FEVER Last Admin: 08/19/16 12:28 Dose: 1,000 mg Albuterol/Ipratropium (Duoneb -) 1 amp NEB QIDR [facility] Last Admin: 08/22/16 12:31 Dose: 1 amp Chlorhexidine Gluconate (Peridex -) 15 ml MM BID [facility] Last Admin: 08/22/16 09:50 Dose: 15 ml Dextrose (D50w (Vial) -) 50 ml IVPUSH Q15M PRN PRN Reason: BLOOD SUGAR < 60 Enoxaparin Sodium (Lovenox -) 40 mg SQ BID [facility] Last Admin: 08/22/16 09:50 Dose: 40 mg Fentanyl (Duragesic 25mcg Patch -) 1 patch TD Q72H [facility] Last Admin: 08/20/16 15:29 Dose: 1 patch Furosemide (Lasix Injection -) 20 mg IVPB DAILY [facility] Last Admin: 08/22/16 11:01 Dose: 20 mg Fat Emulsion Intravenous (Intralipid -) 250 mls @ 20.833 mls/hr IV DAILY@2200 [facility] Last Admin: 08/21/16 21:56 Dose: 20.833 mls/hr Famotidine/Sodium Chloride (Pepcid 20 Mg Premixed Ivpb -) 50 mls @ 100 mls/hr IVPB BID [facility] Last Admin: 08/22/16 12:56 Dose: 100 mls/hr Piperacillin Sod/Tazobactam Sod (Zosyn 4.5gm Ivpb (Pre-Docked)) 100 mls @ 200 mls/hr IVPB Q6H-IV [facility] PRN Reason: Protocol Last Admin: 08/22/16 09:49 Dose: 200 mls/hr Magnesium Sulfate 4 gm/Insulin Human Regular 20 units / Thiamine HCl 100 mg/ Sodium Chloride 40 meq/ Potassium Chloride 10 meq/ Multivitamins /Minerals 10 ml / Potassium Phosphate 40 mm/ Folic Acid 1 mg/ Sterile Water/ Amino Acids / Dextrose 1,500 mls @ 62.5 mls/hr IVPB DAILY@1600 [facility] Last Admin: 08/21/16 18:52 Dose: 62.5 mls/hr Fluconazole (Diflucan 200 Mg/D5w Premixed Ivpb -) 100 mls @ 100 mls/hr IVPB DAILY [facility] Last Admin: 08/22/16 13:39 Dose: 100 mls/hr Insulin Aspart (Novolog Vial Sliding Scale -) 1 vial SQ ACHS [facility] PRN Reason: Protocol Last Admin: 08/22/16 12:59 Dose: 2 units Miscellaneous (Duragesic Patch Waste) 1 each TD PRN PRN PRN Reason: PAIN Last Admin: 08/20/16 15:54 Dose: 1 each Morphine Sulfate (Morphine Injection -) 2 mg IVPUSH Q4H PRN PRN Reason: PAIN Last Admin: 08/22/16 13:31 Dose: 2 mg - Objective Vital Signs: Vital Signs Temperature 100.5 F H 08/22/16 12:15 Pulse Rate 96 H 08/22/16 10:57 Respiratory Rate 16 08/22/16 12:56 Blood Pressure 124/60 08/22/16 10:57 O2 Sat by Pulse Oximetry (%) 97 08/20/16 09:00 Constitutional: Yes: No Distress Cardiovascular: Yes: Regular Rate and Rhythm Respiratory: Yes: Mechanically Ventilated Gastrointestinal: Yes: Normal Bowel Sounds, Soft Musculoskeletal: Yes: Other Extremities: Yes: Other Neurological: Yes: Alert, Other Psychiatric: Yes: Alert Labs: CBC, BMP 08/22/16 06:45 08/22/16 06:45 INR, PTT INR 1.50 (0.82-1.09) H 08/09/16 11:30 Fibrinogen > 700.0 mg/dL (238-498) H 07/31/16 05:40 Assessment/Plan Problem List - Problems (1) Abdominal pain Code(s): R10.9 - UNSPECIFIED ABDOMINAL PAIN Qualifiers: Qualified Code(s): R10.33 - Periumbilical pain (2) Perforated abdominal viscus Code(s): [id number] - (3) Perforated viscus Code(s): R19.8 - OTH SYMPTOMS AND SIGNS INVOLVING THE DGSTV SYS AND ABDOMEN (4) Hypertension Code(s): I10 - ESSENTIAL (PRIMARY) HYPERTENSION Qualifiers: Qualified Code(s): I10 - Essential (primary) hypertension lactic acidosis fevers generalized swelling gangrene of the tip of the fingers noted pseudomonas pneumonia plan patient stable continue suctioning tripple lume to be changed
--- NOTE | 2016-08-22 14:13 | PN ---
Progress Note, Physician - Current Medication List Current Medications: Active Medications Acetaminophen (Ofirmev Injection -) 1,000 mg IVPB Q6H PRN PRN Reason: FEVER Last Admin: 08/19/16 12:28 Dose: 1,000 mg Albuterol/Ipratropium (Duoneb -) 1 amp NEB QIDR [facility] Last Admin: 08/22/16 12:31 Dose: 1 amp Chlorhexidine Gluconate (Peridex -) 15 ml MM BID [facility] Last Admin: 08/22/16 09:50 Dose: 15 ml Dextrose (D50w (Vial) -) 50 ml IVPUSH Q15M PRN PRN Reason: BLOOD SUGAR < 60 Enoxaparin Sodium (Lovenox -) 40 mg SQ BID [facility] Last Admin: 08/22/16 09:50 Dose: 40 mg Fentanyl (Duragesic 25mcg Patch -) 1 patch TD Q72H [facility] Last Admin: 08/20/16 15:29 Dose: 1 patch Furosemide (Lasix Injection -) 20 mg IVPB DAILY [facility] Last Admin: 08/22/16 11:01 Dose: 20 mg Fat Emulsion Intravenous (Intralipid -) 250 mls @ 20.833 mls/hr IV DAILY@2200 [facility] Last Admin: 08/21/16 21:56 Dose: 20.833 mls/hr Famotidine/Sodium Chloride (Pepcid 20 Mg Premixed Ivpb -) 50 mls @ 100 mls/hr IVPB BID [facility] Last Admin: 08/22/16 12:56 Dose: 100 mls/hr Piperacillin Sod/Tazobactam Sod (Zosyn 4.5gm Ivpb (Pre-Docked)) 100 mls @ 200 mls/hr IVPB Q6H-IV [facility] PRN Reason: Protocol Last Admin: 08/22/16 09:49 Dose: 200 mls/hr Magnesium Sulfate 4 gm/Insulin Human Regular 20 units / Thiamine HCl 100 mg/ Sodium Chloride 40 meq/ Potassium Chloride 10 meq/ Multivitamins /Minerals 10 ml / Potassium Phosphate 40 mm/ Folic Acid 1 mg/ Sterile Water/ Amino Acids / Dextrose 1,500 mls @ 62.5 mls/hr IVPB DAILY@1600 [facility] Last Admin: 08/21/16 18:52 Dose: 62.5 mls/hr Fluconazole (Diflucan 200 Mg/D5w Premixed Ivpb -) 100 mls @ 100 mls/hr IVPB DAILY [facility] Last Admin: 08/22/16 13:39 Dose: 100 mls/hr Insulin Aspart (Novolog Vial Sliding Scale -) 1 vial SQ ACHS [facility] PRN Reason: Protocol Last Admin: 08/22/16 12:59 Dose: 2 units Miscellaneous (Duragesic Patch Waste) 1 each TD PRN PRN PRN Reason: PAIN Last Admin: 08/20/16 15:54 Dose: 1 each Morphine Sulfate (Morphine Injection -) 2 mg IVPUSH Q4H PRN PRN Reason: PAIN Last Admin: 08/22/16 13:31 Dose: 2 mg - Objective Vital Signs: Vital Signs Temperature 100.5 F H 08/22/16 12:15 Pulse Rate 96 H 08/22/16 10:57 Respiratory Rate 16 08/22/16 12:56 Blood Pressure 124/60 08/22/16 10:57 O2 Sat by Pulse Oximetry (%) 97 08/20/16 09:00 Labs: CBC, BMP 08/22/16 06:45 08/22/16 06:45 INR, PTT INR 1.50 (0.82-1.09) H 08/09/16 11:30 Fibrinogen > 700.0 mg/dL (238-498) H 07/31/16 05:40 Problem List - Problems (1) Abdominal pain Code(s): R10.9 - UNSPECIFIED ABDOMINAL PAIN Qualifiers: Abdominal location: periumbilical Qualified Code(s): R10.33 - Periumbilical pain (2) Perforated abdominal viscus Code(s): [id number] - (3) Perforated viscus Code(s): R19.8 - OTH SYMPTOMS AND SIGNS INVOLVING THE DGSTV SYS AND ABDOMEN (4) Hypertension Code(s): I10 - ESSENTIAL (PRIMARY) HYPERTENSION Qualifiers: Hypertension type: essential hypertension Qualified Code(s): I10 - Essential (primary) hypertension Assessment/Plan Drainage from fistula is very minimal. I have asked Dr. duval to do a gastrograffin g.i.study to assess the closure of the enteric fistula. If the fistula is closed , patient can be put on enteral feeding. request made. Remains on ventilator.
[2016-08-22] MEDS ORDERED: POTASSIUM CHLORIDE ORAL LIQUID 20 MEQ/15 ML ONE (14:45)
--- NOTE | 2016-08-22 15:57 | PN ---
Progress Note (short form) - Note Progress Note: Neurology History of Present Illness The patient is a 65-year-old woman, with a significant past medical history of hypertension, hypercholesterolemia, diabetes mellitus and GI disorders who presented to the emergency department via walk-in for further evaluation of abdominal pain for the past 3-4 days with unintentional 20 lb weight loss over the past three months. She required surgical intervention as documented by Dr. Louise. Thereafter, complicated course and patient in ICU, off sedation for several days. CT head without acute changes. Patient was not awakening initially and concern was hypoperfusion and possible anoxic brain injury. 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 Since, has awoken and is keeps eye open, occasional tracking and previously occasional spontaneous extremity movement but minimal now. Does have notable gangrene of fingers and toes. protecting airway and remains intubated and on vent, status post trach as she was not able to tolerate weaning. Toxic metabolic vs hypoperfusion and anoxic brain injury. Would benefit from MRI but not able to obtain due to vent. Has sepsis and getting ongoing treatment. Previously opening mouth and sticking out tongue to command but no significant cognitive activity at this time. Has been downgraded from ICU to floor status and minimal activity. Getting ongoing medical care. *Physical Exam Vital Signs Temperature 100.6 F H 08/22/16 15:43 Pulse Rate 106 H 08/22/16 15:43 Respiratory Rate 19 08/22/16 15:43 Blood Pressure 122/70 08/22/16 15:43 O2 Sat by Pulse Oximetry (%) 97 08/20/16 09:00 GENERAL: Awake Frail appearing. HEENT: Normocephalic, atraumatic. +Temporal wasting. PERRL, EOMI. No conjunctival pallor. +Sclera are icteric. +Dry mucous membranes. Oropharynx is clear. NECK: Supple. Full ROM. No JVD. CARDIOVASCULAR: Tachycardic rate but regular rate and rhythm. No murmurs, rubs, or gallops. PULMONARY: +Diffuse dyspneic breath sounds that are equal bilaterally. No wheezing, crackles or rhonchi. ABDOMINAL: Firm but soft abdomen. Diffuse tenderness to palpation without rebound or guarding. Non-distended. No organomegaly. Normoactive bowel sounds. MUSCULOSKELETAL: Normal range of motion at all joints. No bony deformities or tenderness. No CVA tenderness. EXTREMITIES: No cyanosis. No clubbing. No edema. No calf tenderness. SKIN: Tenting of the skin. Jaundiced. No rashes. NEUROLOGICAL: Trached, ventilation, opens eyes and minimal movement of extremities but not cooperating with confrontation testing, withdraws to pain, not following complex commands, not tracking CBCD WBC 11.6 K/mm3 (4.0-10.0) H 08/22/16 06:45 RBC 3.21 M/mm3 (3.60-5.2) L 08/22/16 06:45 Hgb 9.2 GM/dL (10.7-15.3) L 08/22/16 06:45 Hct 27.3 % (32.4-45.2) L 08/22/16 06:45 MCV 85.2 fl (80-96) 08/22/16 06:45 MCHC 33.6 g/dl (32.0-36.0) 08/22/16 06:45 RDW 14.7 % (11.6-15.6) 08/22/16 06:45 Plt Count 420 K/MM3 (134-434) 08/22/16 06:45 MPV 7.2 fl (7.5-11.1) L 08/22/16 06:45 CMP Sodium 133 mmol/L (136-145) L 08/22/16 06:45 Potassium 4.3 mmol/L (3.5-5.1) 08/22/16 06:45 Chloride 96 mmol/L (98-107) L 08/22/16 06:45 Carbon Dioxide 28 mmol/L (21-32) 08/22/16 06:45 Anion Gap 9 (8-16) 08/22/16 06:45 BUN 21 mg/dL (7-18) H 08/22/16 06:45 Creatinine 0.3 mg/dL (0.55-1.02) L D 08/22/16 06:45 Creat Clearance w eGFR > 60 (>60) 08/22/16 06:45 Calcium 8.3 mg/dL (8.5-10.1) L 08/22/16 06:45 Total Bilirubin 0.6 mg/dL (0.2-1.0) D 08/22/16 06:45 AST 19 U/L (15-37) 08/22/16 06:45 ALT 15 U/L (12-78) 08/22/16 06:45 Alkaline Phosphatase 201 U/L (45-117) H 08/22/16 06:45 Total Protein 6.3 g/dl (6.4-8.2) L 08/22/16 06:45 Albumin 1.3 g/dl (3.4-5.0) L 08/22/16 06:45 EXAM: CT/HEAD CT WITHOUT CONTRAST IMPRESSION: Comparison study MRI of the brain February 23, 2015. Findings. Serial axial images of the brain were obtained from foramen magnum to the cranial vertex without intravenous contrast, with coronal, sagittal reconstruction images. No evidence of hydrocephalus, acute subarachnoid hemorrhage, acute intra-axial or extra-axial fluid collection consistent with subdural or epidural hematoma. No mass effect, midline shift, acute ischemic changes, herniation or edema is present. Normal yancey matter white matter differentiation. The cortical sulci, sylvian fissures, perimesencephalic cisterns are not effaced. The CSF spaces are age-appropriate. Supratentorial periventricular chronic white matter microangiopathic ischemic changes are noted. Examination of the bone windows show no fracture. Normal intracranial physiological calcifications are observed. The cranial vascular calcifications are noted. The visualized paranasal sinuses and mastoid air cells are clear. Medical Decision Making 65-year-old woman, with a significant past medical history of hypertension, hypercholesterolemia, diabetes mellitus and GI disorders who presented to the emergency department via walk-in for further evaluation of abdominal pain for the past 3-4 days with unintentional 20 lb weight loss over the past three months. She required surgical intervention as documented by Dr. Louise. Thereafter , complicated course and patient in ICU, off sedation for several days. CT head without acute changes. Patient was not awakening initially and concern was hypoperfusion and possible anoxic brain injury. Since, has awoken and is keeps eye open, some tracking previously and producing spontaneous extremity movement previously. Toxic metabolic vs hypoperfusion and anoxic brain injury. Would benefit from MRI but not able to obtain due to vent. Continue sepsis treatment Unable to be weaned off vent, status post trach Had respiratory intstability overnight, stabilized Continued medical management for multiple complications Remains somnolent Encourage continued close monitoring, patient with prolonged hospitalization No significant improvement Prognosis guarded
[2016-08-22] MEDS ORDERED: INSULIN REGULAR IVPB SCH (16:00)
[2016-08-22] MEDS ORDERED: MAGNESIUM SULFATE IVPB SCH (16:00)
[2016-08-22] MEDS ORDERED: THIAMINE HCL IVPB SCH (16:00)
[2016-08-22] MEDS ORDERED: [UNRECOGNIZED DRUG - OTHER] IVPB SCH (16:00)
[2016-08-22] MEDS: ACETAMINOPHEN 1000 MG/100 ML VIAL (NON FORMULARY) IVPB PRN (19:20)
[2016-08-22] MEDS: FAT EMULSIONS 250 ML IV SCH (21:41)
[2016-08-23] MEDS: morphine CARPU-JECT 2 MG/1 ML DISP.SYRIN IVPUSH PRN (01:59)
[2016-08-23] MEDS: PIPERACILLIN/TAZOB 4.5 GM 100 ML IVPB SCH ×4 (02:00→20:55)
[2016-08-23] MEDS: INSULIN SLIDING SCALE (NOVOLOG) 1 VIAL SQ SCH ×4 (06:32→23:05)
[2016-08-23] MEDS: ALBUTEROL SO4 2.5/IPRATROPIUM 0.5 INH SOL 3 ML VIAL.NEB. NEB SCH ×4 (06:48→23:25)
[2016-08-23 08:00] LABS: BASOPHIL 0.5 % (0-2.0); EOSINOPHIL 5.4 % (0-4.5); MCH 28.6 pg (25.7-33.7); MCHC 33.6 g/dl (32.0-36.0); MEAN CELL VOLUME 85.2 fl (80-96); MEAN PLT VOLUME 7.4 fl (7.5-11.1); NEUTROPHILS 73.2 % (42.8-82.8); PLATELET COUNT 436 K/MM3 (134-434); RDW 14.8 % (11.6-15.6); WHITE BLOOD COUNT 10.9 K/mm3 (4.0-10.0)
[2016-08-23 08:25] LABS: ANION GAP 10 (8-16); CALCIUM 8.5 mg/dL (8.5-10.1); CO2 28 mmol/L (21-32); CREATININE 0.3 mg/dL (0.55-1.02); GLUCOSE,RANDOM 156 mg/dL (74-106); MAGNESIUM 1.8 mg/dL (1.8-2.4); PHOSPHOROUS 3.7 mg/dL (2.5-4.9)
--- NOTE | 2016-08-23 09:56 | PN ---
Progress Note (short form) - Note Progress Note: Renal Follow up for ZAHIRA/Metabolic acidosis Pt seen and examined at the bedside on Vent, A/C mode, 40% FiO2 nurse reports some drainage from Abd wound good urine output Vital Signs Temperature 100.8 F H 08/22/16 19:30 Pulse Rate 104 H 08/22/16 19:30 Respiratory Rate 16 08/23/16 06:25 Blood Pressure 130/64 08/22/16 19:30 O2 Sat by Pulse Oximetry (%) 97 08/22/16 11:00 Intake & Output 08/20/16 08/21/16 08/22/16 08/23/16 23:59 23:59 23:59 23:59 Intake Total 2480 2210 2447 1103.5 Output Total 4200 2020 2220 600 Balance -1720 190 227 503.5 Weight 154 lb 4 oz Gen: on Vent, NAD CVS: RRR, No M/R Lungs: Dec BS b/l lung andino Ext: 1+ edema in LE CBC, BMP 08/23/16 06:45 08/23/16 06:45 Laboratory Tests 08/21/16 08/23/16 06:00 06:45 Calcium 8.6 8.5 Phosphorus 3.7 3.7 Magnesium 1.8 1.8 Albumin 1.2 L Current Medications Acetaminophen (Ofirmev Injection -) 1,000 mg IVPB Q6H PRN PRN Reason: FEVER Last Admin: 08/22/16 19:20 Dose: 1,000 mg Albuterol/Ipratropium (Duoneb -) 1 amp NEB QIDR [facility] Last Admin: 08/23/16 06:48 Dose: 1 amp Chlorhexidine Gluconate (Peridex -) 15 ml MM BID [facility] Last Admin: 08/22/16 23:26 Dose: 15 ml Dextrose (D50w (Vial) -) 50 ml IVPUSH Q15M PRN PRN Reason: BLOOD SUGAR < 60 Enoxaparin Sodium (Lovenox -) 40 mg SQ BID [facility] Last Admin: 08/22/16 21:39 Dose: 40 mg Fentanyl (Duragesic 25mcg Patch -) 1 patch TD Q72H [facility] Last Admin: 08/20/16 15:29 Dose: 1 patch Furosemide (Lasix Injection -) 20 mg IVPB DAILY [facility] Last Admin: 08/22/16 11:01 Dose: 20 mg Fat Emulsion Intravenous (Intralipid -) 250 mls @ 20.833 mls/hr IV DAILY@2200 [facility] Last Admin: 08/22/16 21:41 Dose: 20.833 mls/hr Famotidine/Sodium Chloride (Pepcid 20 Mg Premixed Ivpb -) 50 mls @ 100 mls/hr IVPB BID [facility] Last Admin: 08/22/16 21:39 Dose: 100 mls/hr Piperacillin Sod/Tazobactam Sod (Zosyn 4.5gm Ivpb (Pre-Docked)) 100 mls @ 200 mls/hr IVPB Q6H-IV [facility] PRN Reason: Protocol Last Admin: 08/23/16 08:44 Dose: 200 mls/hr Fluconazole (Diflucan 200 Mg/D5w Premixed Ivpb -) 100 mls @ 100 mls/hr IVPB DAILY [facility] Last Admin: 08/22/16 13:39 Dose: 100 mls/hr Magnesium Sulfate 4 gm/Insulin Human Regular 20 units / Thiamine HCl 100 mg/ Sodium Chloride 60 meq/ Potassium Chloride 10 meq/ Multivitamins /Minerals 10 ml / Potassium Phosphate 40 mm/ Folic Acid 1 mg/ Chromium/Copper/Manganese/Seleni/ Zn 1 ml/ Sterile Water/Amino Acids/ Dextrose 1,500 mls @ 62.5 mls/hr IVPB DAILY @1600 [facility] Last Admin: 08/22/16 18:47 Dose: 62.5 mls/hr Insulin Aspart (Novolog Vial Sliding Scale -) 1 vial SQ ACHS [facility] PRN Reason: Protocol Last Admin: 08/23/16 06:32 Dose: 2 units Miscellaneous (Duragesic Patch Waste) 1 each TD PRN PRN PRN Reason: PAIN Last Admin: 08/20/16 15:54 Dose: 1 each Morphine Sulfate (Morphine Injection -) 2 mg IVPUSH Q4H PRN PRN Reason: PAIN Last Admin: 08/23/16 01:59 Dose: 2 mg A/P 65 year old woman with PMhx of hypertension, hypercholesterolemia, diabetes mellitus who presented with Abd pain and found to have perforated Abd viscus s/ p emergent Sx now with Septic Shock, ZAHIRA and Metabolic Acidosis. #Sepsis/Perforated Abd Viscus/Abscess Abx as per ID Surgial follow up Vent support #NPO on TPN/Electrolyte abnormalities contniue present TPN Trend electrolytes daily #Edema from 3rd spacing improved continue TPN and Lasix prognosis guarded Cyril Tubbs DO
[2016-08-23] MEDS ORDERED: PT OWN MED DRAWER 7, Y5N ONE (10:07)
[2016-08-23] MEDS: ENOXAPARIN NA (PORCINE) 40 MG/0.4 ML DISP.SYRIN SQ SCH ×2 (10:09→22:06)
[2016-08-23] MEDS: FAMOTIDINE 20 MG/50 ML IVPB 50 ML IVPB SCH ×2 (10:10→22:06)
[2016-08-23] MEDS: FUROSEMIDE 40 MG/4 ML INJECTABLE VIAL IVPB SCH (10:10)
[2016-08-23] MEDS: FLUCONAZOLE 200 MG/D5W 100 ML IVPB SCH (10:10)
[2016-08-23] MEDS: CHLORHEXIDINE GLUCONATE 0.12% 15ML CUP MM SCH ×2 (10:11→22:06)
--- NOTE | 2016-08-23 12:57 | PN ---
Progress Note (short form) - Note Progress Note: Neurology History of Present Illness The patient is a 65-year-old woman, with a significant past medical history of hypertension, hypercholesterolemia, diabetes mellitus and GI disorders who presented to the emergency department via walk-in for further evaluation of abdominal pain for the past 3-4 days with unintentional 20 lb weight loss over the past three months. She required surgical intervention as documented by Dr. Louise. Thereafter, complicated course and patient in ICU, off sedation for several days. CT head without acute changes. Patient was not awakening initially and concern was hypoperfusion and possible anoxic brain injury. 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 Since, has awoken and is keeps eye open, occasional tracking and previously occasional spontaneous extremity movement but minimal now. Does have notable gangrene of fingers and toes. protecting airway and remains intubated and on vent, status post trach as she was not able to tolerate weaning. Toxic metabolic vs hypoperfusion and anoxic brain injury. Would benefit from MRI but not able to obtain due to vent. Has sepsis and getting ongoing treatment. Previously opening mouth and sticking out tongue to command but no significant cognitive activity at this time. *Physical Exam Vital Signs Temperature 99.2 F 08/23/16 10:00 Pulse Rate 104 H 08/23/16 10:00 Respiratory Rate 19 08/23/16 11:51 Blood Pressure 130/59 08/23/16 10:00 O2 Sat by Pulse Oximetry (%) 97 08/22/16 11:00 GENERAL: Awake Frail appearing. HEENT: Normocephalic, atraumatic. +Temporal wasting. PERRL, EOMI. No conjunctival pallor. +Sclera are icteric. +Dry mucous membranes. Oropharynx is clear. NECK: Supple. Full ROM. No JVD. CARDIOVASCULAR: Tachycardic rate but regular rate and rhythm. No murmurs, rubs, or gallops. PULMONARY: +Diffuse dyspneic breath sounds that are equal bilaterally. No wheezing, crackles or rhonchi. ABDOMINAL: Firm but soft abdomen. Diffuse tenderness to palpation without rebound or guarding. Non-distended. No organomegaly. Normoactive bowel sounds. MUSCULOSKELETAL: Normal range of motion at all joints. No bony deformities or tenderness. No CVA tenderness. EXTREMITIES: No cyanosis. No clubbing. No edema. No calf tenderness. SKIN: Tenting of the skin. Jaundiced. No rashes. NEUROLOGICAL: Trached, ventilation, opens eyes and minimal movement of extremities but not cooperating with confrontation testing, withdraws to pain, not following complex commands, not tracking CBCD WBC 10.9 K/mm3 (4.0-10.0) H 08/23/16 06:45 RBC 3.29 M/mm3 (3.60-5.2) L 08/23/16 06:45 Hgb 9.4 GM/dL (10.7-15.3) L 08/23/16 06:45 Hct 28.0 % (32.4-45.2) L 08/23/16 06:45 MCV 85.2 fl (80-96) 08/23/16 06:45 MCHC 33.6 g/dl (32.0-36.0) 08/23/16 06:45 RDW 14.8 % (11.6-15.6) 08/23/16 06:45 Plt Count 436 K/MM3 (134-434) H 08/23/16 06:45 MPV 7.4 fl (7.5-11.1) L 08/23/16 06:45 CMP Sodium 135 mmol/L (136-145) L 08/23/16 06:45 Potassium 4.2 mmol/L (3.5-5.1) 08/23/16 06:45 Chloride 97 mmol/L (98-107) L 08/23/16 06:45 Carbon Dioxide 28 mmol/L (21-32) 08/23/16 06:45 Anion Gap 10 (8-16) 08/23/16 06:45 BUN 19 mg/dL (7-18) H 08/23/16 06:45 Creatinine 0.3 mg/dL (0.55-1.02) L 08/23/16 06:45 Creat Clearance w eGFR > 60 (>60) 08/22/16 06:45 Calcium 8.5 mg/dL (8.5-10.1) 08/23/16 06:45 Total Bilirubin 0.6 mg/dL (0.2-1.0) D 08/22/16 06:45 AST 19 U/L (15-37) 08/22/16 06:45 ALT 15 U/L (12-78) 08/22/16 06:45 Alkaline Phosphatase 201 U/L (45-117) H 08/22/16 06:45 Total Protein 6.3 g/dl (6.4-8.2) L 08/22/16 06:45 Albumin 1.3 g/dl (3.4-5.0) L 08/22/16 06:45 EXAM: CT/HEAD CT WITHOUT CONTRAST IMPRESSION: Comparison study MRI of the brain February 23, 2015. Findings. Serial axial images of the brain were obtained from foramen magnum to the cranial vertex without intravenous contrast, with coronal, sagittal reconstruction images. No evidence of hydrocephalus, acute subarachnoid hemorrhage, acute intra-axial or extra-axial fluid collection consistent with subdural or epidural hematoma. No mass effect, midline shift, acute ischemic changes, herniation or edema is present. Normal yancey matter white matter differentiation. The cortical sulci, sylvian fissures, perimesencephalic cisterns are not effaced. The CSF spaces are age-appropriate. Supratentorial periventricular chronic white matter microangiopathic ischemic changes are noted. Examination of the bone windows show no fracture. Normal intracranial physiological calcifications are observed. The cranial vascular calcifications are noted. The visualized paranasal sinuses and mastoid air cells are clear. Medical Decision Making 65-year-old woman, with a significant past medical history of hypertension, hypercholesterolemia, diabetes mellitus and GI disorders who presented to the emergency department via walk-in for further evaluation of abdominal pain for the past 3-4 days with unintentional 20 lb weight loss over the past three months. She required surgical intervention as documented by Dr. Louise. Thereafter , complicated course and patient in ICU, off sedation for several days. CT head without acute changes. Patient was not awakening initially and concern was hypoperfusion and possible anoxic brain injury. Since, has awoken and is keeps eye open, some tracking previously and producing spontaneous extremity movement previously. Toxic metabolic vs hypoperfusion and anoxic brain injury. Would benefit from MRI but not able to obtain due to vent. Ongoing sepsis treatment Unable to be weaned off vent, status post trach Had respiratory intstability overnight, stabilized Continued medical management for multiple complications No significant improvement Prognosis guarded Dr Barroso will be following up
--- NOTE | 2016-08-23 13:11 | PN ---
Progress Note, Physician History of Present Illness: pulmonary more awake on vent support,ac mode - Current Medication List Current Medications: Active Medications Acetaminophen (Ofirmev Injection -) 1,000 mg IVPB Q6H PRN PRN Reason: FEVER Last Admin: 08/22/16 19:20 Dose: 1,000 mg Albuterol/Ipratropium (Duoneb -) 1 amp NEB QIDR [facility] Last Admin: 08/23/16 11:53 Dose: 1 amp Chlorhexidine Gluconate (Peridex -) 15 ml MM BID [facility] Last Admin: 08/23/16 10:11 Dose: 15 ml Dextrose (D50w (Vial) -) 50 ml IVPUSH Q15M PRN PRN Reason: BLOOD SUGAR < 60 Enoxaparin Sodium (Lovenox -) 40 mg SQ BID [facility] Last Admin: 08/23/16 10:09 Dose: 40 mg Fentanyl (Duragesic 25mcg Patch -) 1 patch TD Q72H [facility] Last Admin: 08/20/16 15:29 Dose: 1 patch Furosemide (Lasix Injection -) 20 mg IVPB DAILY [facility] Last Admin: 08/23/16 10:10 Dose: 20 mg Fat Emulsion Intravenous (Intralipid -) 250 mls @ 20.833 mls/hr IV DAILY@2200 [facility] Last Admin: 08/22/16 21:41 Dose: 20.833 mls/hr Famotidine/Sodium Chloride (Pepcid 20 Mg Premixed Ivpb -) 50 mls @ 100 mls/hr IVPB BID [facility] Last Admin: 08/23/16 10:10 Dose: 100 mls/hr Piperacillin Sod/Tazobactam Sod (Zosyn 4.5gm Ivpb (Pre-Docked)) 100 mls @ 200 mls/hr IVPB Q6H-IV [facility] PRN Reason: Protocol Last Admin: 08/23/16 08:44 Dose: 200 mls/hr Fluconazole (Diflucan 200 Mg/D5w Premixed Ivpb -) 100 mls @ 100 mls/hr IVPB DAILY [facility] Last Admin: 08/23/16 10:10 Dose: 100 mls/hr Magnesium Sulfate 4 gm/Insulin Human Regular 20 units / Thiamine HCl 100 mg/ Sodium Chloride 60 meq/ Potassium Chloride 10 meq/ Multivitamins /Minerals 10 ml / Potassium Phosphate 40 mm/ Folic Acid 1 mg/ Chromium/Copper/Manganese/Seleni/ Zn 1 ml/ Sterile Water/Amino Acids/ Dextrose 1,500 mls @ 62.5 mls/hr IVPB DAILY @1600 [facility] Last Admin: 08/22/16 18:47 Dose: 62.5 mls/hr Insulin Aspart (Novolog Vial Sliding Scale -) 1 vial SQ ACHS [facility] PRN Reason: Protocol Last Admin: 08/23/16 11:04 Dose: 4 units Miscellaneous (Duragesic Patch Waste) 1 each TD PRN PRN PRN Reason: PAIN Last Admin: 08/20/16 15:54 Dose: 1 each Morphine Sulfate (Morphine Injection -) 2 mg IVPUSH Q4H PRN PRN Reason: PAIN Last Admin: 08/23/16 01:59 Dose: 2 mg - Objective Vital Signs: Vital Signs Temperature 99.2 F 08/23/16 10:00 Pulse Rate 104 H 08/23/16 10:00 Respiratory Rate 19 08/23/16 11:51 Blood Pressure 130/59 08/23/16 10:00 O2 Sat by Pulse Oximetry (%) 97 08/22/16 11:00 Constitutional: Yes: Calm, Thin Eyes: Yes: WNL HENT: Yes: WNL Neck: Yes: Supple (trach) Cardiovascular: Yes: Regular Rate and Rhythm, S1, S2 Respiratory: Yes: Rhonchi (few scattered elia rhonchi) Gastrointestinal: Yes: Normal Bowel Sounds, Soft Extremities: Yes: Other (blackened ,cool) Edema: Yes Labs: CBC, BMP 08/23/16 06:45 08/23/16 06:45 INR, PTT INR 1.50 (0.82-1.09) H 08/09/16 11:30 Fibrinogen > 700.0 mg/dL (238-498) H 07/31/16 05:40 Problem List - Problems (1) ZAHIRA (acute kidney injury) Code(s): N17.9 - ACUTE KIDNEY FAILURE, UNSPECIFIED (2) Acute metabolic encephalopathy Code(s): G93.41 - METABOLIC ENCEPHALOPATHY (3) Ischemia of extremity Code(s): I99.8 - OTHER DISORDER OF CIRCULATORY SYSTEM (4) Metabolic acidemia Code(s): E87.2 - ACIDOSIS (5) Perforated abdominal viscus Code(s): [id number] - (6) Sepsis Code(s): A41.9 - SEPSIS, UNSPECIFIED ORGANISM (7) Acute respiratory failure Code(s): J96.00 - ACUTE RESPIRATORY FAILURE, UNSP W HYPOXIA OR HYPERCAPNIA Assessment/Plan A/P Perforated Duodenal Ulcer Peritonitis s/p ex-lap/omental patch repair 07/16 Enterocutaneous Fistula Acute Respiratory Failure S/P Septic Shock Lactic Acidosis resolved Leukopenia/Thrombocytopenia resolved DM DVT Gangrene - inhaled bronchodilators - antibiotics per ID - taper Fio2 to keep Spo2 >90% - continue anticoagulation - TPN per renal - vent support ac mode - DVT/GI prophylaxis - prognosis is poor, continue discussions regarding advanced directives and goals of care - recommend palliative due to failure to wean, anticipated amputations, poor quality of life DR OSEI
[2016-08-23] MEDS: fentaNYL 25mcg/hr PATCH.TD72 TD SCH ×2 (14:11→15:16)
--- NOTE | 2016-08-23 15:46 | PN ---
Progress Note, Physician Chief Complaint: Remained at her base line , low grade fever , opens eye to verbal command, on Vent Saturating well. History of Present Illness: 65-year-old F H/O hypertension, hypercholesterolemia, T2DM, ETOH abuse, was presented to ED with abd pain and weight loss underwent exploratory laprotomy for perforated duodenal ulcer on 07/21/16 developed hypotention and sepsis intubate now on trach, colostomy and TPN.on Vent - Current Medication List Current Medications: Active Medications Acetaminophen (Ofirmev Injection -) 1,000 mg IVPB Q6H PRN PRN Reason: FEVER Last Admin: 08/22/16 19:20 Dose: 1,000 mg Albuterol/Ipratropium (Duoneb -) 1 amp NEB QIDR [facility] Last Admin: 08/23/16 11:53 Dose: 1 amp Chlorhexidine Gluconate (Peridex -) 15 ml MM BID [facility] Last Admin: 08/23/16 10:11 Dose: 15 ml Dextrose (D50w (Vial) -) 50 ml IVPUSH Q15M PRN PRN Reason: BLOOD SUGAR < 60 Enoxaparin Sodium (Lovenox -) 40 mg SQ BID [facility] Last Admin: 08/23/16 10:09 Dose: 40 mg Fentanyl (Duragesic 25mcg Patch -) 1 patch TD Q72H [facility] Last Admin: 08/23/16 15:16 Dose: Not Given Furosemide (Lasix Injection -) 20 mg IVPB DAILY [facility] Last Admin: 08/23/16 10:10 Dose: 20 mg Fat Emulsion Intravenous (Intralipid -) 250 mls @ 20.833 mls/hr IV DAILY@2200 [facility] Last Admin: 08/22/16 21:41 Dose: 20.833 mls/hr Famotidine/Sodium Chloride (Pepcid 20 Mg Premixed Ivpb -) 50 mls @ 100 mls/hr IVPB BID [facility] Last Admin: 08/23/16 10:10 Dose: 100 mls/hr Piperacillin Sod/Tazobactam Sod (Zosyn 4.5gm Ivpb (Pre-Docked)) 100 mls @ 200 mls/hr IVPB Q6H-IV [facility] PRN Reason: Protocol Last Admin: 08/23/16 14:03 Dose: 200 mls/hr Fluconazole (Diflucan 200 Mg/D5w Premixed Ivpb -) 100 mls @ 100 mls/hr IVPB DAILY [facility] Last Admin: 08/23/16 10:10 Dose: 100 mls/hr Magnesium Sulfate 4 gm/Insulin Human Regular 20 units / Thiamine HCl 100 mg/ Sodium Chloride 60 meq/ Potassium Chloride 10 meq/ Multivitamins /Minerals 10 ml / Potassium Phosphate 40 mm/ Folic Acid 1 mg/ Chromium/Copper/Manganese/Seleni/ Zn 1 ml/ Sterile Water/Amino Acids/ Dextrose 1,500 mls @ 62.5 mls/hr IVPB DAILY @1600 [facility] Stop: 08/23/16 15:59 Last Admin: 08/22/16 18:47 Dose: 62.5 mls/hr Magnesium Sulfate 4 gm/Insulin Human Regular 20 units / Thiamine HCl 100 mg/ Sodium Chloride 60 meq/ Potassium Chloride 10 meq/ Multivitamins /Minerals 10 ml / Potassium Phosphate 40 mm/ Folic Acid 1 mg/ Sterile Water/ Amino Acids / Dextrose 1,500 mls @ 62.5 mls/hr IVPB DAILY@1600 [facility] Insulin Aspart (Novolog Vial Sliding Scale -) 1 vial SQ ACHS [facility] PRN Reason: Protocol Last Admin: 08/23/16 11:04 Dose: 4 units Miscellaneous (Duragesic Patch Waste) 1 each TD PRN PRN PRN Reason: PAIN Last Admin: 08/20/16 15:54 Dose: 1 each - Objective Vital Signs: Vital Signs Temperature 100.3 F H 08/23/16 14:39 Pulse Rate 106 H 08/23/16 14:39 Respiratory Rate 16 08/23/16 14:39 Blood Pressure 110/53 08/23/16 14:39 O2 Sat by Pulse Oximetry (%) 97 08/22/16 11:00 P Exam Patient remained altered minimally responsive, on Vent HEENT: Trach at the place, need intermittent Vent support, mm most, anemia NECK; IJJ at place, no JVD CHEST: Good AE minimal crepts ABD; discharge from stoma, exudative collection EXT; extensive edema, skin peeling and gangrene of distal extremities 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 Derm; extensive skin peeling and gangrene of fingers and toes, p Labs: CBC, BMP 08/23/16 06:45 08/23/16 06:45 INR, PTT INR 1.50 (0.82-1.09) H 08/09/16 11:30 Fibrinogen > 700.0 mg/dL (238-498) H 07/31/16 05:40 Problem List - Problems (1) Perforated abdominal viscus Assessment/Plan: Patient present with Rt UQ pain and with free air, Duodenal ulcer perforation s /p surgery. now fistula formation draining exudates.fistula still has discharge evaluate by surgery. and GI consult Code(s): [id number] - (2) Acute metabolic encephalopathy Assessment/Plan: Secondary to hypoperfusion due to septic shock, at present no significant improvement , most likely hypoxic encephalopathy. Code(s): G93.41 - METABOLIC ENCEPHALOPATHY (3) Metabolic acidosis Assessment/Plan: Improved Code(s): E87.2 - ACIDOSIS (4) ZAHIRA (acute kidney injury) Assessment/Plan: Resolved Code(s): N17.9 - ACUTE KIDNEY FAILURE, UNSPECIFIED (5) Thrombocytopenia Assessment/Plan: Due to sepsis, Platelet count improved Code(s): D69.6 - THROMBOCYTOPENIA, UNSPECIFIED (6) Ischemia of extremity Assessment/Plan: Ischemia off all extremities due to prolonged vasopressor use, patient needs pressure to maintain BP Code(s): I99.8 - OTHER DISORDER OF CIRCULATORY SYSTEM (7) Sepsis Assessment/Plan: Due to perforated gastric now of pressors, onIV fluconazole and Zosyn F/U cultures.s. Prognosis is guarded. Code(s): A41.9 - SEPSIS, UNSPECIFIED ORGANISM
[2016-08-23] MEDS: ACETAMINOPHEN 1000 MG/100 ML VIAL (NON FORMULARY) IVPB PRN (15:52)
[2016-08-23] MEDS: MAGNESIUM SULFATE IVPB SCH (16:09)
[2016-08-23] MEDS: INSULIN REGULAR IVPB SCH (16:09)
[2016-08-23] MEDS: THIAMINE HCL IVPB SCH (16:09)
[2016-08-23] MEDS: [UNRECOGNIZED DRUG - OTHER] IVPB SCH (16:09)
[2016-08-23] MEDS: FAT EMULSIONS 250 ML IV SCH (22:05)
[2016-08-24] MEDS: PIPERACILLIN/TAZOB 4.5 GM 100 ML IVPB SCH ×4 (02:11→20:47)
[2016-08-24] MEDS: ACETAMINOPHEN 1000 MG/100 ML VIAL (NON FORMULARY) IVPB PRN ×2 (05:32→15:45)
[2016-08-24] MEDS: INSULIN SLIDING SCALE (NOVOLOG) 1 VIAL SQ SCH ×4 (06:25→22:35)
[2016-08-24] MEDS: ALBUTEROL SO4 2.5/IPRATROPIUM 0.5 INH SOL 3 ML VIAL.NEB. NEB SCH ×4 (06:45→23:07)
[2016-08-24 07:42] LABS: ALBUMIN 1.4 g/dl (3.4-5.0); ANION GAP 9 (8-16); CALCIUM 8.7 mg/dL (8.5-10.1); CO2 29 mmol/L (21-32); GLUCOSE,RANDOM 160 mg/dL (74-106); MAGNESIUM 1.9 mg/dL (1.8-2.4); PHOSPHOROUS 3.6 mg/dL (2.5-4.9); SGOT/AST 16 U/L (15-37)
[2016-08-24 07:45] LABS: ALK PHOS 184 U/L (45-117); BILIRUBIN,TOTAL 0.3 mg/dL (0.2-1.0); CREATININE 0.3 mg/dL (0.55-1.02); SGPT/ALT 13 U/L (12-78); TOT PROT 6.3 g/dl (6.4-8.2)
[2016-08-24 07:54] LABS: BASOPHIL 0.8 % (0-2.0); EOSINOPHIL 4.1 % (0-4.5); MCH 28.8 pg (25.7-33.7); MCHC 33.8 g/dl (32.0-36.0); MEAN CELL VOLUME 85.1 fl (80-96); MEAN PLT VOLUME 7.6 fl (7.5-11.1); NEUTROPHILS 70.6 % (42.8-82.8); PLATELET COUNT 414 K/MM3 (134-434); RDW 14.8 % (11.6-15.6)
[2016-08-24] MEDS: FAMOTIDINE 20 MG/50 ML IVPB 50 ML IVPB SCH ×2 (10:42→22:10)
[2016-08-24] MEDS: ENOXAPARIN NA (PORCINE) 40 MG/0.4 ML DISP.SYRIN SQ SCH ×2 (10:42→22:10)
[2016-08-24] MEDS ORDERED: PT OWN MED DRAWER 7, Y5N ONE (10:48)
[2016-08-24] MEDS: CHLORHEXIDINE GLUCONATE 0.12% 15ML CUP MM SCH ×2 (10:49→22:12)
[2016-08-24] MEDS: FUROSEMIDE 40 MG/4 ML INJECTABLE VIAL IVPB SCH (10:53)
[2016-08-24] MEDS: FLUCONAZOLE 200 MG/D5W 100 ML IVPB SCH (12:03)
--- NOTE | 2016-08-24 12:41 | PN ---
Progress Note, Physician History of Present Illness: PULMONARY AWAKE ,ALERT ON VENT SUPPORT AC MODE,-RESP DISTRESS - Current Medication List Current Medications: Active Medications Acetaminophen (Ofirmev Injection -) 1,000 mg IVPB Q6H PRN PRN Reason: FEVER Last Admin: 08/24/16 05:32 Dose: 1,000 mg Albuterol/Ipratropium (Duoneb -) 1 amp NEB QIDR [facility] Last Admin: 08/24/16 11:15 Dose: 1 amp Chlorhexidine Gluconate (Peridex -) 15 ml MM BID [facility] Last Admin: 08/24/16 10:49 Dose: 15 ml Dextrose (D50w (Vial) -) 50 ml IVPUSH Q15M PRN PRN Reason: BLOOD SUGAR < 60 Enoxaparin Sodium (Lovenox -) 40 mg SQ BID [facility] Last Admin: 08/24/16 10:42 Dose: 40 mg Fentanyl (Duragesic 25mcg Patch -) 1 patch TD Q72H [facility] Last Admin: 08/23/16 15:16 Dose: Not Given Furosemide (Lasix Injection -) 20 mg IVPB DAILY [facility] Last Admin: 08/24/16 10:53 Dose: 20 mg Fat Emulsion Intravenous (Intralipid -) 250 mls @ 20.833 mls/hr IV DAILY@2200 [facility] Last Admin: 08/23/16 22:05 Dose: 20.833 mls/hr Famotidine/Sodium Chloride (Pepcid 20 Mg Premixed Ivpb -) 50 mls @ 100 mls/hr IVPB BID [facility] Last Admin: 08/24/16 10:42 Dose: 100 mls/hr Piperacillin Sod/Tazobactam Sod (Zosyn 4.5gm Ivpb (Pre-Docked)) 100 mls @ 200 mls/hr IVPB Q6H-IV [facility] PRN Reason: Protocol Last Admin: 08/24/16 08:49 Dose: 200 mls/hr Fluconazole (Diflucan 200 Mg/D5w Premixed Ivpb -) 100 mls @ 100 mls/hr IVPB DAILY [facility] Last Admin: 08/24/16 12:03 Dose: 100 mls/hr Magnesium Sulfate 4 gm/Insulin Human Regular 20 units / Thiamine HCl 100 mg/ Sodium Chloride 60 meq/ Potassium Chloride 10 meq/ Multivitamins /Minerals 10 ml / Potassium Phosphate 40 mm/ Folic Acid 1 mg/ Sterile Water/ Amino Acids / Dextrose 1,500 mls @ 62.5 mls/hr IVPB DAILY@1600 [facility] Last Admin: 08/23/16 16:09 Dose: 62.5 mls/hr Insulin Aspart (Novolog Vial Sliding Scale -) 1 vial SQ ACHS [facility] PRN Reason: Protocol Last Admin: 08/24/16 12:08 Dose: 4 units Miscellaneous (Duragesic Patch Waste) 1 each TD PRN PRN PRN Reason: PAIN Last Admin: 08/20/16 15:54 Dose: 1 each - Objective Vital Signs: Vital Signs Temperature 99.0 F 08/24/16 09:30 Pulse Rate 96 H 08/24/16 09:30 Respiratory Rate 25 H 08/24/16 10:26 Blood Pressure 140/52 08/24/16 09:30 O2 Sat by Pulse Oximetry (%) 97 08/22/16 11:00 Constitutional: Yes: Calm, Thin Eyes: Yes: WNL HENT: Yes: WNL Neck: Yes: Supple (TRACH) Cardiovascular: Yes: Regular Rate and Rhythm, S1, S2 Respiratory: Yes: Rhonchi (FEW SCATTERED MARYBEL RHONCHI) Gastrointestinal: Yes: Normal Bowel Sounds, Soft Extremities: Yes: Cool, Other (BLACKENED ,COOL) Edema: Yes Labs: CBC, BMP 08/24/16 06:25 08/24/16 06:25 INR, PTT INR 1.50 (0.82-1.09) H 08/09/16 11:30 Fibrinogen > 700.0 mg/dL (238-498) H 07/31/16 05:40 Problem List - Problems (1) ZAHIRA (acute kidney injury) Code(s): N17.9 - ACUTE KIDNEY FAILURE, UNSPECIFIED (2) Acute metabolic encephalopathy Code(s): G93.41 - METABOLIC ENCEPHALOPATHY (3) Ischemia of extremity Code(s): I99.8 - OTHER DISORDER OF CIRCULATORY SYSTEM (4) Metabolic acidemia Code(s): E87.2 - ACIDOSIS (5) Perforated abdominal viscus Code(s): [id number] - (6) Sepsis Code(s): A41.9 - SEPSIS, UNSPECIFIED ORGANISM (7) Acute respiratory failure Code(s): J96.00 - ACUTE RESPIRATORY FAILURE, UNSP W HYPOXIA OR HYPERCAPNIA Assessment/Plan A/P Perforated Duodenal Ulcer Peritonitis s/p ex-lap/omental patch repair 07/16 Enterocutaneous Fistula Acute Respiratory Failure S/P Septic Shock Lactic Acidosis resolved Leukopenia/Thrombocytopenia resolved DM DVT Gangrene - inhaled bronchodilators - antibiotics per ID - anticoagulation - TPN per renal - vent support ac mode - DVT/GI prophylaxis - prognosis is poor, continue discussions regarding advanced directives and goals of care - recommend palliative due to failure to wean, anticipated amputations, poor quality of life DR OSEI
--- NOTE | 2016-08-24 13:25 | PN ---
Progress Note, Physician History of Present Illness: patient still having low grade fever but overall patient stable mental staus responds secretions decreasing - Current Medication List Current Medications: Active Medications Acetaminophen (Ofirmev Injection -) 1,000 mg IVPB Q6H PRN PRN Reason: FEVER Last Admin: 08/24/16 05:32 Dose: 1,000 mg Albuterol/Ipratropium (Duoneb -) 1 amp NEB QIDR [facility] Last Admin: 08/24/16 11:15 Dose: 1 amp Chlorhexidine Gluconate (Peridex -) 15 ml MM BID [facility] Last Admin: 08/24/16 10:49 Dose: 15 ml Dextrose (D50w (Vial) -) 50 ml IVPUSH Q15M PRN PRN Reason: BLOOD SUGAR < 60 Enoxaparin Sodium (Lovenox -) 40 mg SQ BID [facility] Last Admin: 08/24/16 10:42 Dose: 40 mg Fentanyl (Duragesic 25mcg Patch -) 1 patch TD Q72H [facility] Last Admin: 08/23/16 15:16 Dose: Not Given Furosemide (Lasix Injection -) 20 mg IVPB DAILY [facility] Last Admin: 08/24/16 10:53 Dose: 20 mg Fat Emulsion Intravenous (Intralipid -) 250 mls @ 20.833 mls/hr IV DAILY@2200 [facility] Last Admin: 08/23/16 22:05 Dose: 20.833 mls/hr Famotidine/Sodium Chloride (Pepcid 20 Mg Premixed Ivpb -) 50 mls @ 100 mls/hr IVPB BID [facility] Last Admin: 08/24/16 10:42 Dose: 100 mls/hr Piperacillin Sod/Tazobactam Sod (Zosyn 4.5gm Ivpb (Pre-Docked)) 100 mls @ 200 mls/hr IVPB Q6H-IV [facility] PRN Reason: Protocol Last Admin: 08/24/16 08:49 Dose: 200 mls/hr Fluconazole (Diflucan 200 Mg/D5w Premixed Ivpb -) 100 mls @ 100 mls/hr IVPB DAILY [facility] Last Admin: 08/24/16 12:03 Dose: 100 mls/hr Magnesium Sulfate 4 gm/Insulin Human Regular 20 units / Thiamine HCl 100 mg/ Sodium Chloride 60 meq/ Potassium Chloride 10 meq/ Multivitamins /Minerals 10 ml / Potassium Phosphate 40 mm/ Folic Acid 1 mg/ Sterile Water/ Amino Acids / Dextrose 1,500 mls @ 62.5 mls/hr IVPB DAILY@1600 [facility] Last Admin: 08/23/16 16:09 Dose: 62.5 mls/hr Insulin Aspart (Novolog Vial Sliding Scale -) 1 vial SQ ACHS [facility] PRN Reason: Protocol Last Admin: 08/24/16 12:08 Dose: 4 units Miscellaneous (Duragesic Patch Waste) 1 each TD PRN PRN PRN Reason: PAIN Last Admin: 08/20/16 15:54 Dose: 1 each Morphine Sulfate (Morphine Injection -) 2 mg IVPUSH Q4H PRN PRN Reason: PAIN - Objective Vital Signs: Vital Signs Temperature 99.0 F 08/24/16 09:30 Pulse Rate 96 H 08/24/16 09:30 Respiratory Rate 25 H 08/24/16 10:26 Blood Pressure 140/52 08/24/16 09:30 O2 Sat by Pulse Oximetry (%) 97 08/22/16 11:00 Constitutional: Yes: Calm Cardiovascular: Yes: Regular Rate and Rhythm Respiratory: Yes: Mechanically Ventilated, Other Gastrointestinal: Yes: Normal Bowel Sounds, Soft, Other (ng tube in place) Musculoskeletal: Yes: Other Extremities: Yes: Other (gangrene of the toes) Neurological: Yes: Alert, Other Labs: CBC, BMP 08/24/16 06:25 08/24/16 06:25 INR, PTT INR 1.50 (0.82-1.09) H 08/09/16 11:30 Fibrinogen > 700.0 mg/dL (238-498) H 07/31/16 05:40 Assessment/Plan Problem List - Problems (1) Abdominal pain Code(s): R10.9 - UNSPECIFIED ABDOMINAL PAIN Qualifiers: Qualified Code(s): R10.33 - Periumbilical pain (2) Perforated abdominal viscus Code(s): [id number] - (3) Perforated viscus Code(s): R19.8 - OTH SYMPTOMS AND SIGNS INVOLVING THE DGSTV SYS AND ABDOMEN (4) Hypertension Code(s): I10 - ESSENTIAL (PRIMARY) HYPERTENSION Qualifiers: Qualified Code(s): I10 - Essential (primary) hypertension lactic acidosis fevers generalized swelling gangrene of the tip of the fingers noted pseudomonas pneumonia plan patient stable continue suctioning tripple lumen still not changed patient s tripple lumen needs to be changed pt still spiking fevers--low grade-
--- NOTE | 2016-08-24 13:33 | PN ---
Progress Note (short form) - Note Progress Note: Neurology History of Present Illness The patient is a 65-year-old woman, with a significant past medical history of hypertension, hypercholesterolemia, diabetes mellitus and GI disorders who presented to the emergency department via walk-in for further evaluation of abdominal pain for the past 3-4 days with unintentional 20 lb weight loss over the past three months. She required surgical intervention as documented by Dr. Louise. Thereafter, complicated course and patient in ICU, off sedation for several days. CT head without acute changes. Patient was not awakening initially and concern was hypoperfusion and possible anoxic brain injury. 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 Since, has awoken and is keeps eye open, occasional tracking and previously occasional spontaneous extremity movement but minimal now. Does have notable gangrene of fingers and toes. protecting airway and remains intubated and on vent, status post trach as she was not able to tolerate weaning. Toxic metabolic vs hypoperfusion and anoxic brain injury. Has sepsis and getting ongoing treatment. Previously opening mouth and sticking out tongue to command but no significant cognitive activity at this time. *Physical Exam Vital Signs Temperature 99.0 F 08/24/16 09:30 Pulse Rate 96 H 08/24/16 09:30 Respiratory Rate 25 H 08/24/16 10:26 Blood Pressure 140/52 08/24/16 09:30 O2 Sat by Pulse Oximetry (%) 97 08/22/16 11:00 GENERAL: Awake Frail appearing. HEENT: Normocephalic, atraumatic. +Temporal wasting. PERRL, EOMI. No conjunctival pallor. +Sclera are icteric. +Dry mucous membranes. Oropharynx is clear. NECK: Supple. Full ROM. No JVD. CARDIOVASCULAR: Tachycardic rate but regular rate and rhythm. No murmurs, rubs, or gallops. PULMONARY: +Diffuse dyspneic breath sounds that are equal bilaterally. No wheezing, crackles or rhonchi. ABDOMINAL: Firm but soft abdomen. Diffuse tenderness to palpation without rebound or guarding. Non-distended. No organomegaly. Normoactive bowel sounds. MUSCULOSKELETAL: Normal range of motion at all joints. No bony deformities or tenderness. No CVA tenderness. EXTREMITIES: No cyanosis. No clubbing. No edema. No calf tenderness. SKIN: Tenting of the skin. Jaundiced. No rashes. NEUROLOGICAL: Trached, ventilation, opens eyes and minimal movement of extremities but not cooperating with confrontation testing, withdraws to pain, not following complex commands, not tracking CBCD WBC 10.0 K/mm3 (4.0-10.0) 08/24/16 06:25 RBC 3.17 M/mm3 (3.60-5.2) L 08/24/16 06:25 Hgb 9.1 GM/dL (10.7-15.3) L 08/24/16 06:25 Hct 27.0 % (32.4-45.2) L 08/24/16 06:25 MCV 85.1 fl (80-96) 08/24/16 06:25 MCHC 33.8 g/dl (32.0-36.0) 08/24/16 06:25 RDW 14.8 % (11.6-15.6) 08/24/16 06:25 Plt Count 414 K/MM3 (134-434) 08/24/16 06:25 MPV 7.6 fl (7.5-11.1) 08/24/16 06:25 CMP Sodium 138 mmol/L (136-145) 08/24/16 06:25 Potassium 4.1 mmol/L (3.5-5.1) 08/24/16 06:25 Chloride 100 mmol/L (98-107) 08/24/16 06:25 Carbon Dioxide 29 mmol/L (21-32) 08/24/16 06:25 Anion Gap 9 (8-16) 08/24/16 06:25 BUN 20 mg/dL (7-18) H 08/24/16 06:25 Creatinine 0.3 mg/dL (0.55-1.02) L 08/24/16 06:25 Creat Clearance w eGFR > 60 (>60) 08/24/16 06:25 Calcium 8.7 mg/dL (8.5-10.1) 08/24/16 06:25 Total Bilirubin 0.3 mg/dL (0.2-1.0) D 08/24/16 06:25 AST 16 U/L (15-37) 08/24/16 06:25 ALT 13 U/L (12-78) 08/24/16 06:25 Alkaline Phosphatase 184 U/L (45-117) H 08/24/16 06:25 Total Protein 6.3 g/dl (6.4-8.2) L 08/24/16 06:25 Albumin 1.4 g/dl (3.4-5.0) L 08/24/16 06:25 Medical Decision Making 65-year-old woman, with a significant past medical history of hypertension, hypercholesterolemia, diabetes mellitus and GI disorders who presented to the emergency department via walk-in for further evaluation of abdominal pain for the past 3-4 days with unintentional 20 lb weight loss over the past three months. She required surgical intervention as documented by Dr. Louise. Thereafter , complicated course and patient in ICU, off sedation for several days. CT head without acute changes. Patient was not awakening initially and concern was hypoperfusion and possible anoxic brain injury. Since, has awoken and is keeps eye open, some tracking previously and producing spontaneous extremity movement previously. Minimal activity Toxic metabolic vs hypoperfusion and anoxic brain injury. Would benefit from MRI but not able to obtain due to vent. Ongoing sepsis treatment Unable to be weaned off vent, status post trach Had respiratory intstability overnight, stabilized Continued medical management for multiple complications No significant improvement Prognosis guarded No further rec'd at this time
[2016-08-24] MEDS: morphine CARPU-JECT 2 MG/1 ML DISP.SYRIN IVPUSH PRN (14:30)
--- NOTE | 2016-08-24 14:47 | PN ---
Progress Note, Physician Chief Complaint: Remained at her base line , low grade fever , opens eye to verbal command, on Vent Saturating well. History of Present Illness: 65-year-old F H/O hypertension, hypercholesterolemia, T2DM, ETOH abuse, was presented to ED with abd pain and weight loss underwent exploratory laprotomy for perforated duodenal ulcer on 07/21/16 developed hypotention and sepsis intubate now on trach, colostomy and TPN.on Vent and IV abxfor Pseudomonas. - Current Medication List Current Medications: Active Medications Acetaminophen (Ofirmev Injection -) 1,000 mg IVPB Q6H PRN PRN Reason: FEVER Last Admin: 08/24/16 05:32 Dose: 1,000 mg Albuterol/Ipratropium (Duoneb -) 1 amp NEB QIDR [facility] Last Admin: 08/24/16 11:15 Dose: 1 amp Chlorhexidine Gluconate (Peridex -) 15 ml MM BID [facility] Last Admin: 08/24/16 10:49 Dose: 15 ml Dextrose (D50w (Vial) -) 50 ml IVPUSH Q15M PRN PRN Reason: BLOOD SUGAR < 60 Enoxaparin Sodium (Lovenox -) 40 mg SQ BID [facility] Last Admin: 08/24/16 10:42 Dose: 40 mg Fentanyl (Duragesic 25mcg Patch -) 1 patch TD Q72H [facility] Last Admin: 08/23/16 15:16 Dose: Not Given Furosemide (Lasix Injection -) 20 mg IVPB DAILY [facility] Last Admin: 08/24/16 10:53 Dose: 20 mg Fat Emulsion Intravenous (Intralipid -) 250 mls @ 20.833 mls/hr IV DAILY@2200 [facility] Last Admin: 08/23/16 22:05 Dose: 20.833 mls/hr Famotidine/Sodium Chloride (Pepcid 20 Mg Premixed Ivpb -) 50 mls @ 100 mls/hr IVPB BID [facility] Last Admin: 08/24/16 10:42 Dose: 100 mls/hr Piperacillin Sod/Tazobactam Sod (Zosyn 4.5gm Ivpb (Pre-Docked)) 100 mls @ 200 mls/hr IVPB Q6H-IV [facility] PRN Reason: Protocol Last Admin: 08/24/16 14:31 Dose: 200 mls/hr Fluconazole (Diflucan 200 Mg/D5w Premixed Ivpb -) 100 mls @ 100 mls/hr IVPB DAILY [facility] Last Admin: 08/24/16 12:03 Dose: 100 mls/hr Magnesium Sulfate 4 gm/Insulin Human Regular 20 units / Thiamine HCl 100 mg/ Sodium Chloride 60 meq/ Potassium Chloride 10 meq/ Multivitamins /Minerals 10 ml / Potassium Phosphate 40 mm/ Folic Acid 1 mg/ Sterile Water/ Amino Acids / Dextrose 1,500 mls @ 62.5 mls/hr IVPB DAILY@1600 [facility] Last Admin: 08/23/16 16:09 Dose: 62.5 mls/hr Insulin Aspart (Novolog Vial Sliding Scale -) 1 vial SQ ACHS [facility] PRN Reason: Protocol Last Admin: 08/24/16 12:08 Dose: 4 units Miscellaneous (Duragesic Patch Waste) 1 each TD PRN PRN PRN Reason: PAIN Last Admin: 08/20/16 15:54 Dose: 1 each Morphine Sulfate (Morphine Injection -) 2 mg IVPUSH Q4H PRN PRN Reason: PAIN Last Admin: 08/24/16 14:30 Dose: 2 mg - Objective Vital Signs: Vital Signs Temperature 99.0 F 08/24/16 09:30 Pulse Rate 96 H 08/24/16 09:30 Respiratory Rate 18 08/24/16 13:56 Blood Pressure 140/52 08/24/16 09:30 O2 Sat by Pulse Oximetry (%) 97 08/22/16 11:00 P Exam Patient remained altered minimally responsive, on Vent HEENT: Trach at the place, need intermittent Vent support, mm most, anemia NECK; IJJ at place, no JVD CHEST: Good AE minimal crepts ABD; discharge from stoma, exudative collection EXT; extensive edema, skin peeling and gangrene of distal extremities 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 Derm; extensive skin peeling and gangrene of fingers and toes, Labs: CBC, BMP 08/24/16 06:25 08/24/16 06:25 INR, PTT INR 1.50 (0.82-1.09) H 08/09/16 11:30 Fibrinogen > 700.0 mg/dL (238-498) H 07/31/16 05:40 Problem List - Problems (1) Perforated abdominal viscus Assessment/Plan: Patient present with Rt UQ pain and with free air, Duodenal ulcer perforation s /p surgery. now fistula formation draining exudates.fistula still has discharge evaluate by surgery. and GI consult, patient has colostomy bag at place, abdominal wound discharging pus. Code(s): [id number] - (2) Acute metabolic encephalopathy Assessment/Plan: Secondary to hypoperfusion due to septic shock, at present no significant improvement , most likely hypoxic encephalopathy. Code(s): G93.41 - METABOLIC ENCEPHALOPATHY (3) ZAHIRA (acute kidney injury) Code(s): N17.9 - ACUTE KIDNEY FAILURE, UNSPECIFIED (4) Thrombocytopenia Code(s): D69.6 - THROMBOCYTOPENIA, UNSPECIFIED (5) Ischemia of extremity Assessment/Plan: Ischemia off all extremities due to prolonged vasopressor use, patient needed pressure to maintain BP, woundsare healing slowly. Code(s): I99.8 - OTHER DISORDER OF CIRCULATORY SYSTEM (6) Sepsis Assessment/Plan: Due to perforated gastric now off pressors, onIV fluconazole and Zosyn F/U cultures.s. Prognosis is guarded. Code(s): A41.9 - SEPSIS, UNSPECIFIED ORGANISM (7) Severe malnutrition Assessment/Plan: On TPN Code(s): E43 - UNSPECIFIED SEVERE PROTEIN-CALORIE MALNUTRITION
[2016-08-24] MEDS: MAGNESIUM SULFATE IVPB SCH (17:38)
[2016-08-24] MEDS: [UNRECOGNIZED DRUG - OTHER] IVPB SCH (17:38)
[2016-08-24] MEDS: INSULIN REGULAR IVPB SCH (17:38)
[2016-08-24] MEDS: THIAMINE HCL IVPB SCH (17:38)
[2016-08-24] MEDS: FAT EMULSIONS 250 ML IV SCH (22:10)
[2016-08-25] MEDS: ACETAMINOPHEN 1000 MG/100 ML VIAL (NON FORMULARY) IVPB PRN (01:50)
[2016-08-25] MEDS: PIPERACILLIN/TAZOB 4.5 GM 100 ML IVPB SCH ×4 (02:20→21:15)
[2016-08-25] MEDS: INSULIN SLIDING SCALE (NOVOLOG) 1 VIAL SQ SCH ×4 (06:01→21:23)
[2016-08-25] MEDS: ALBUTEROL SO4 2.5/IPRATROPIUM 0.5 INH SOL 3 ML VIAL.NEB. NEB SCH ×3 (06:45→17:15)
[2016-08-25 07:42] LABS: BASOPHIL 1.2 % (0-2.0); EOSINOPHIL 6.3 % (0-4.5); MCH 28.6 pg (25.7-33.7); MCHC 33.3 g/dl (32.0-36.0); MEAN CELL VOLUME 85.8 fl (80-96); MEAN PLT VOLUME 7.6 fl (7.5-11.1); NEUTROPHILS 61.4 % (42.8-82.8); PLATELET COUNT 424 K/MM3 (134-434); RDW 14.8 % (11.6-15.6); WHITE BLOOD COUNT 7.8 K/mm3 (4.0-10.0)
[2016-08-25 07:58] LABS: ALBUMIN 1.3 g/dl (3.4-5.0); ALK PHOS 163 U/L (45-117); ANION GAP 7 (8-16); BILIRUBIN,TOTAL 0.3 mg/dL (0.2-1.0); CALCIUM 8.5 mg/dL (8.5-10.1); CO2 29 mmol/L (21-32); CREATININE 0.3 mg/dL (0.55-1.02); GLUCOSE,RANDOM 130 mg/dL (74-106); SGOT/AST 19 U/L (15-37); SGPT/ALT 14 U/L (12-78); TOT PROT 6.2 g/dl (6.4-8.2)
[2016-08-25] MEDS: FUROSEMIDE 40 MG/4 ML INJECTABLE VIAL IVPB SCH (10:19)
[2016-08-25] MEDS: FLUCONAZOLE 200 MG/D5W 100 ML IVPB SCH (10:24)
[2016-08-25] MEDS: CHLORHEXIDINE GLUCONATE 0.12% 15ML CUP MM SCH ×2 (10:42→22:49)
--- NOTE | 2016-08-25 11:35 | PN ---
Progress Note (short form) - Note Progress Note: Renal Follow up for ZAHIRA/Metabolic acidosis Pt seen and examined at the bedside on Vent, A/C mode, 40% FiO2 febrile overnight Vital Signs Temperature 99.2 F 08/25/16 06:58 Pulse Rate 91 H 08/25/16 06:58 Respiratory Rate 22 08/25/16 10:40 Blood Pressure 141/64 08/25/16 06:58 O2 Sat by Pulse Oximetry (%) 97 08/22/16 11:00 Intake & Output 08/22/16 08/23/16 08/24/16 08/25/16 23:59 23:59 23:59 23:59 Intake Total 2447 1903.5 2465 450 Output Total 2220 2100 2200 400 Balance 227 -196.5 265 50 Gen: on Vent, NAD CVS: RRR, No M/R Lungs: Dec BS b/l lung andino Ext: 1+ edema in LE CBC, BMP 08/25/16 06:00 08/25/16 06:00 Laboratory Tests 08/25/16 06:00 Albumin 1.3 L Current Medications Acetaminophen (Ofirmev Injection -) 1,000 mg IVPB Q6H PRN PRN Reason: FEVER Last Admin: 08/25/16 01:50 Dose: 1,000 mg Albuterol/Ipratropium (Duoneb -) 1 amp NEB QIDR [facility] Last Admin: 08/25/16 11:08 Dose: 1 amp Chlorhexidine Gluconate (Peridex -) 15 ml MM BID [facility] Last Admin: 08/24/16 22:12 Dose: 15 ml Dextrose (D50w (Vial) -) 50 ml IVPUSH Q15M PRN PRN Reason: BLOOD SUGAR < 60 Enoxaparin Sodium (Lovenox -) 40 mg SQ BID [facility] Last Admin: 08/24/16 22:10 Dose: 40 mg Fentanyl (Duragesic 25mcg Patch -) 1 patch TD Q72H [facility] Last Admin: 08/23/16 15:16 Dose: Not Given Furosemide (Lasix Injection -) 20 mg IVPB DAILY [facility] Last Admin: 08/25/16 10:19 Dose: 20 mg Fat Emulsion Intravenous (Intralipid -) 250 mls @ 20.833 mls/hr IV DAILY@2200 [facility] Last Admin: 08/24/16 22:10 Dose: 20.833 mls/hr Famotidine/Sodium Chloride (Pepcid 20 Mg Premixed Ivpb -) 50 mls @ 100 mls/hr IVPB BID [facility] Last Admin: 08/24/16 22:10 Dose: 100 mls/hr Piperacillin Sod/Tazobactam Sod (Zosyn 4.5gm Ivpb (Pre-Docked)) 100 mls @ 200 mls/hr IVPB Q6H-IV [facility] PRN Reason: Protocol Last Admin: 08/25/16 08:38 Dose: 200 mls/hr Fluconazole (Diflucan 200 Mg/D5w Premixed Ivpb -) 100 mls @ 100 mls/hr IVPB DAILY [facility] Last Admin: 08/25/16 10:24 Dose: 100 mls/hr Magnesium Sulfate 4 gm/Insulin Human Regular 20 units / Thiamine HCl 100 mg/ Sodium Chloride 60 meq/ Potassium Chloride 10 meq/ Multivitamins /Minerals 10 ml / Potassium Phosphate 40 mm/ Folic Acid 1 mg/ Sterile Water/ Amino Acids / Dextrose 1,500 mls @ 62.5 mls/hr IVPB DAILY@1600 [facility] Last Admin: 08/24/16 17:38 Dose: 62.5 mls/hr Insulin Aspart (Novolog Vial Sliding Scale -) 1 vial SQ ACHS [facility] PRN Reason: Protocol Last Admin: 08/25/16 06:01 Dose: Not Given Miscellaneous (Duragesic Patch Waste) 1 each TD PRN PRN PRN Reason: PAIN Last Admin: 08/20/16 15:54 Dose: 1 each Morphine Sulfate (Morphine Injection -) 2 mg IVPUSH Q4H PRN PRN Reason: PAIN Last Admin: 08/24/16 14:30 Dose: 2 mg A/P 65 year old woman with PMhx of hypertension, hypercholesterolemia, diabetes mellitus who presented with Abd pain and found to have perforated Abd viscus s/ p emergent Sx now with Septic Shock, ZAHIRA and Metabolic Acidosis. #Sepsis/Perforated Abd Viscus/Abscess Abx as per ID Surgical follow up Vent support #NPO on TPN/Electrolyte abnormalities will maitian TPN with the same Rx Trend electrolytes daily #Edema from 3rd spacing continue Lasix prognosis guarded Cyril Tubbs DO
[2016-08-25] MEDS: ENOXAPARIN NA (PORCINE) 40 MG/0.4 ML DISP.SYRIN SQ SCH ×2 (12:16→21:16)
[2016-08-25] MEDS: FAMOTIDINE 20 MG/50 ML IVPB 50 ML IVPB SCH ×2 (12:33→21:17)
--- NOTE | 2016-08-25 13:38 | PN ---
Progress Note, Physician History of Present Illness: pulmonary less responsive today,remains on vent support,ac mode - Current Medication List Current Medications: Active Medications Acetaminophen (Ofirmev Injection -) 1,000 mg IVPB Q6H PRN PRN Reason: FEVER Last Admin: 08/25/16 01:50 Dose: 1,000 mg Albuterol/Ipratropium (Duoneb -) 1 amp NEB QIDR [facility] BEDS AT [facility] Last Admin: 08/25/16 11:08 Dose: 1 amp Chlorhexidine Gluconate (Peridex -) 15 ml MM BID [facility] 234 B[facility]S AT [facility] Last Admin: 08/24/16 22:12 Dose: 15 ml Dextrose (D50w (Vial) -) 50 ml IVPUSH Q15M PRN PRN Reason: BLOOD SUGAR < 60 Enoxaparin Sodium (Lovenox -) 40 mg SQ BID [facility] 234 [facility]S AT [facility] Last Admin: 08/25/16 12:16 Dose: 40 mg Fentanyl (Duragesic 25mcg Patch -) 1 patch TD Q72H [facility] 234 BEDS AT [facility] Last Admin: 08/23/16 15:16 Dose: Not Given Furosemide (Lasix Injection -) 20 mg IVPB DAILY [facility] 234 B[facility]S AT [facility] Last Admin: 08/25/16 10:19 Dose: 20 mg Fat Emulsion Intravenous (Intralipid -) 250 mls @ 20.833 mls/hr IV DAILY@2200 [facility] 234 [facility]S [facility] Last Admin: 08/24/16 22:10 Dose: 20.833 mls/hr Famotidine/Sodium Chloride (Pepcid 20 Mg Premixed Ivpb -) 50 mls @ 100 mls/hr IVPB BID [facility] 234 B[facility]S AT [facility] Last Admin: 08/25/16 12:33 Dose: 100 mls/hr Piperacillin Sod/Tazobactam Sod (Zosyn 4.5gm Ivpb (Pre-Docked)) 100 mls @ 200 mls/hr IVPB Q6H-IV [facility] PRN Reason: Protocol Last Admin: 08/25/16 08:38 Dose: 200 mls/hr Fluconazole (Diflucan 200 Mg/D5w Premixed Ivpb -) 100 mls @ 100 mls/hr IVPB DAILY [facility] 234 BEDS AT [facility] Last Admin: 08/25/16 10:24 Dose: 100 mls/hr Magnesium Sulfate 4 gm/Insulin Human Regular 20 units / Thiamine HCl 100 mg/ Sodium Chloride 60 meq/ Potassium Chloride 10 meq/ Multivitamins /Minerals 10 ml / Potassium Phosphate 40 mm/ Folic Acid 1 mg/ Sterile Water/ Amino Acids / Dextrose 1,500 mls @ 62.5 mls/hr IVPB DAILY@1600 [facility] Last Admin: 08/24/16 17:38 Dose: 62.5 mls/hr Insulin Aspart (Novolog Vial Sliding Scale -) 1 vial SQ ACHS [facility] PRN Reason: Protocol Last Admin: 08/25/16 12:35 Dose: 2 units Miscellaneous (Duragesic Patch Waste) 1 each TD PRN PRN PRN Reason: PAIN Last Admin: 08/20/16 15:54 Dose: 1 each Morphine Sulfate (Morphine Injection -) 2 mg IVPUSH Q4H PRN PRN Reason: PAIN Last Admin: 08/24/16 14:30 Dose: 2 mg - Objective Vital Signs: Vital Signs Temperature 99.2 F 08/25/16 10:00 Pulse Rate 88 08/25/16 10:00 Respiratory Rate 22 08/25/16 10:40 Blood Pressure 138/54 08/25/16 10:00 O2 Sat by Pulse Oximetry (%) 97 08/22/16 11:00 Constitutional: Yes: Calm, Thin Eyes: Yes: WNL Neck: Yes: Supple (+trach) Cardiovascular: Yes: Regular Rate and Rhythm, S1, S2 Respiratory: Yes: Rhonchi (few scattered rhonchi) Gastrointestinal: Yes: Normal Bowel Sounds, Soft Extremities: Yes: Cool, Other (blackened ,cool) Edema: No Labs: CBC, BMP 08/25/16 06:00 08/25/16 06:00 INR, PTT INR 1.50 (0.82-1.09) H 08/09/16 11:30 Fibrinogen > 700.0 mg/dL (238-498) H 07/31/16 05:40 Problem List - Problems (1) ZAHIRA (acute kidney injury) Code(s): N17.9 - ACUTE KIDNEY FAILURE, UNSPECIFIED (2) Acute metabolic encephalopathy Code(s): G93.41 - METABOLIC ENCEPHALOPATHY (3) Ischemia of extremity Code(s): I99.8 - OTHER DISORDER OF CIRCULATORY SYSTEM (4) Metabolic acidemia Code(s): E87.2 - ACIDOSIS (5) Perforated abdominal viscus Code(s): [id number] - (6) Sepsis Code(s): A41.9 - SEPSIS, UNSPECIFIED ORGANISM (7) Acute respiratory failure Code(s): J96.00 - ACUTE RESPIRATORY FAILURE, UNSP W HYPOXIA OR HYPERCAPNIA Assessment/Plan A/P Perforated Duodenal Ulcer Peritonitis s/p ex-lap/omental patch repair 07/16 Enterocutaneous Fistula Acute Respiratory Failure S/P Septic Shock Lactic Acidosis resolved Leukopenia/Thrombocytopenia resolved DM DVT Gangrene extremities - inhaled bronchodilators - antibiotics per ID - anticoagulation - TPN per renal - vent support ac mode - DVT/GI prophylaxis - prognosis is poor, continue discussions regarding advanced directives and goals of care - recommend palliative due to failure to wean, anticipated amputations, poor quality of life DR OSEI
--- NOTE | 2016-08-25 15:41 | PN ---
Progress Note, Physician - Current Medication List Current Medications: Active Medications Acetaminophen (Ofirmev Injection -) 1,000 mg IVPB Q6H PRN PRN Reason: FEVER Last Admin: 08/25/16 01:50 Dose: 1,000 mg Albuterol/Ipratropium (Duoneb -) 1 amp NEB QIDR [facility] Last Admin: 08/25/16 11:08 Dose: 1 amp Chlorhexidine Gluconate (Peridex -) 15 ml MM BID [facility] Last Admin: 08/24/16 22:12 Dose: 15 ml Dextrose (D50w (Vial) -) 50 ml IVPUSH Q15M PRN PRN Reason: BLOOD SUGAR < 60 Enoxaparin Sodium (Lovenox -) 40 mg SQ BID [facility] Last Admin: 08/25/16 12:16 Dose: 40 mg Fentanyl (Duragesic 25mcg Patch -) 1 patch TD Q72H [facility] Last Admin: 08/23/16 15:16 Dose: Not Given Furosemide (Lasix Injection -) 20 mg IVPB DAILY [facility] Last Admin: 08/25/16 10:19 Dose: 20 mg Fat Emulsion Intravenous (Intralipid -) 250 mls @ 20.833 mls/hr IV DAILY@2200 [facility] Last Admin: 08/24/16 22:10 Dose: 20.833 mls/hr Famotidine/Sodium Chloride (Pepcid 20 Mg Premixed Ivpb -) 50 mls @ 100 mls/hr IVPB BID [facility] Last Admin: 08/25/16 12:33 Dose: 100 mls/hr Piperacillin Sod/Tazobactam Sod (Zosyn 4.5gm Ivpb (Pre-Docked)) 100 mls @ 200 mls/hr IVPB Q6H-IV [facility] PRN Reason: Protocol Last Admin: 08/25/16 08:38 Dose: 200 mls/hr Fluconazole (Diflucan 200 Mg/D5w Premixed Ivpb -) 100 mls @ 100 mls/hr IVPB DAILY [facility] Last Admin: 08/25/16 10:24 Dose: 100 mls/hr Magnesium Sulfate 4 gm/Insulin Human Regular 20 units / Thiamine HCl 100 mg/ Sodium Chloride 60 meq/ Potassium Chloride 10 meq/ Multivitamins /Minerals 10 ml / Potassium Phosphate 40 mm/ Folic Acid 1 mg/ Sterile Water/ Amino Acids / Dextrose 1,500 mls @ 62.5 mls/hr IVPB DAILY@1600 [facility] Last Admin: 08/24/16 17:38 Dose: 62.5 mls/hr Insulin Aspart (Novolog Vial Sliding Scale -) 1 vial SQ ACHS [facility] PRN Reason: Protocol Last Admin: 08/25/16 12:35 Dose: 2 units Miscellaneous (Duragesic Patch Waste) 1 each TD PRN PRN PRN Reason: PAIN Last Admin: 08/20/16 15:54 Dose: 1 each Morphine Sulfate (Morphine Injection -) 2 mg IVPUSH Q4H PRN PRN Reason: PAIN Last Admin: 08/24/16 14:30 Dose: 2 mg - Objective Vital Signs: Vital Signs Temperature 99.2 F 08/25/16 10:00 Pulse Rate 88 08/25/16 10:00 Respiratory Rate 25 H 08/25/16 15:15 Blood Pressure 138/54 08/25/16 10:00 O2 Sat by Pulse Oximetry (%) 97 08/22/16 11:00 Labs: CBC, BMP 08/25/16 06:00 08/25/16 06:00 INR, PTT INR 1.50 (0.82-1.09) H 08/09/16 11:30 Fibrinogen > 700.0 mg/dL (238-498) H 07/31/16 05:40 Problem List - Problems (1) Abdominal pain Code(s): R10.9 - UNSPECIFIED ABDOMINAL PAIN Qualifiers: Abdominal location: periumbilical Qualified Code(s): R10.33 - Periumbilical pain (2) Perforated abdominal viscus Code(s): [id number] - (3) Perforated viscus Code(s): R19.8 - OTH SYMPTOMS AND SIGNS INVOLVING THE DGSTV SYS AND ABDOMEN (4) Hypertension Code(s): I10 - ESSENTIAL (PRIMARY) HYPERTENSION Qualifiers: Hypertension type: essential hypertension Qualified Code(s): I10 - Essential (primary) hypertension Assessment/Plan Surgery: Patient had a CT scan, contrast is seen in large bowel. there is no subhepatic collection, ? small surahepatic coolection. Will resume feeding with clear water , through the feeding tube, today. I have discussed with Dr. Ramos, for change of triple lumen catheter tomorrow. Continue supportive care.
--- NOTE | 2016-08-25 17:20 | PN ---
Progress Note, Physician Chief Complaint: Remained at her base line , low grade fever , opens eye to verbal command, on Vent Saturating well. History of Present Illness: 65-year-old F H/O hypertension, hypercholesterolemia, T2DM, ETOH abuse, was presented to ED with abd pain and weight loss underwent exploratory laprotomy for perforated duodenal ulcer on 07/21/16 developed hypotention and sepsis intubate now on trach, colostomy and TPN.on Vent and IV abxfor Pseudomonas. - Current Medication List Current Medications: Active Medications Acetaminophen (Ofirmev Injection -) 1,000 mg IVPB Q6H PRN PRN Reason: FEVER Last Admin: 08/25/16 01:50 Dose: 1,000 mg Albuterol/Ipratropium (Duoneb -) 1 amp NEB QIDR [facility] Last Admin: 08/25/16 11:08 Dose: 1 amp Chlorhexidine Gluconate (Peridex -) 15 ml MM BID [facility] Last Admin: 08/24/16 22:12 Dose: 15 ml Dextrose (D50w (Vial) -) 50 ml IVPUSH Q15M PRN PRN Reason: BLOOD SUGAR < 60 Enoxaparin Sodium (Lovenox -) 40 mg SQ BID [facility] Last Admin: 08/25/16 12:16 Dose: 40 mg Fentanyl (Duragesic 25mcg Patch -) 1 patch TD Q72H [facility] Last Admin: 08/23/16 15:16 Dose: Not Given Furosemide (Lasix Injection -) 20 mg IVPB DAILY [facility] Last Admin: 08/25/16 10:19 Dose: 20 mg Fat Emulsion Intravenous (Intralipid -) 250 mls @ 20.833 mls/hr IV DAILY@2200 [facility] Last Admin: 08/24/16 22:10 Dose: 20.833 mls/hr Famotidine/Sodium Chloride (Pepcid 20 Mg Premixed Ivpb -) 50 mls @ 100 mls/hr IVPB BID [facility] Last Admin: 08/25/16 12:33 Dose: 100 mls/hr Piperacillin Sod/Tazobactam Sod (Zosyn 4.5gm Ivpb (Pre-Docked)) 100 mls @ 200 mls/hr IVPB Q6H-IV [facility] PRN Reason: Protocol Last Admin: 08/25/16 16:52 Dose: 200 mls/hr Fluconazole (Diflucan 200 Mg/D5w Premixed Ivpb -) 100 mls @ 100 mls/hr IVPB DAILY [facility] Last Admin: 08/25/16 10:24 Dose: 100 mls/hr Magnesium Sulfate 4 gm/Insulin Human Regular 20 units / Thiamine HCl 100 mg/ Sodium Chloride 60 meq/ Potassium Chloride 10 meq/ Multivitamins /Minerals 10 ml / Potassium Phosphate 40 mm/ Folic Acid 1 mg/ Sterile Water/ Amino Acids / Dextrose 1,500 mls @ 62.5 mls/hr IVPB DAILY@1600 [facility] Last Admin: 08/24/16 17:38 Dose: 62.5 mls/hr Insulin Aspart (Novolog Vial Sliding Scale -) 1 vial SQ ACHS [facility] PRN Reason: Protocol Last Admin: 08/25/16 12:35 Dose: 2 units Miscellaneous (Duragesic Patch Waste) 1 each TD PRN PRN PRN Reason: PAIN Last Admin: 08/20/16 15:54 Dose: 1 each Morphine Sulfate (Morphine Injection -) 2 mg IVPUSH Q4H PRN PRN Reason: PAIN Last Admin: 08/24/16 14:30 Dose: 2 mg - Objective Vital Signs: Vital Signs Temperature 99.2 F 08/25/16 10:00 Pulse Rate 88 08/25/16 10:00 Respiratory Rate 25 H 08/25/16 15:15 Blood Pressure 138/54 08/25/16 10:00 O2 Sat by Pulse Oximetry (%) 97 08/22/16 11:00 P Exam Patient remained altered minimally responsive, on Vent HEENT: Trach at the place, need intermittent Vent support, mm most, anemia NECK; IJJ at place, no JVD CHEST: Good AE minimal crepts ABD; discharge from stoma, exudative collection EXT; extensive edema, skin peeling and gangrene of distal extremities [employer]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 Derm; extensive skin peeling and gangrene of fingers and toes, Labs: CBC, BMP 08/25/16 06:00 08/25/16 06:00 INR, PTT INR 1.50 (0.82-1.09) H 08/09/16 11:30 Fibrinogen > 700.0 mg/dL (238-498) H 07/31/16 05:40 Problem List - Problems (1) Perforated abdominal viscus Assessment/Plan: Patient present with Rt UQ pain and with free air, Duodenal ulcer perforation s /p surgery. now fistula formation draining exudates.fistula still has discharge evaluate by surgery. and GI consult, patient has colostomy bag at place, abdominal wound discharging pus. Code(s): [id number] - (2) Acute metabolic encephalopathy Assessment/Plan: Secondary to hypoperfusion due to septic shock, at present no significant improvement , most likely hypoxic encephalopathy. Code(s): G93.41 - METABOLIC ENCEPHALOPATHY (3) ZAHIRA (acute kidney injury) Assessment/Plan: Resolved Code(s): N17.9 - ACUTE KIDNEY FAILURE, UNSPECIFIED (4) Thrombocytopenia Assessment/Plan: Due to sepsis, Platelet count improved Code(s): D69.6 - THROMBOCYTOPENIA, UNSPECIFIED (5) Ischemia of extremity Assessment/Plan: Ischemia off all extremities due to prolonged vasopressor use, patient needed pressure to maintain BP, woundsare healing slowly. Code(s): I99.8 - OTHER DISORDER OF CIRCULATORY SYSTEM (6) Sepsis Assessment/Plan: Due to perforated gastric now off pressors, onIV fluconazole and Zosyn F/U cultures.s. Prognosis is guarded. Code(s): A41.9 - SEPSIS, UNSPECIFIED ORGANISM (7) Severe malnutrition Assessment/Plan: On TPN Code(s): E43 - UNSPECIFIED SEVERE PROTEIN-CALORIE MALNUTRITION
[2016-08-25] MEDS: [UNRECOGNIZED DRUG - OTHER] IVPB SCH (17:45)
[2016-08-25] MEDS: THIAMINE HCL IVPB SCH (17:45)
[2016-08-25] MEDS: INSULIN REGULAR IVPB SCH (17:45)
[2016-08-25] MEDS: MAGNESIUM SULFATE IVPB SCH (17:45)
--- NOTE | 2016-08-25 18:42 | PN ---
Progress Note, Physician History of Present Illness: patient stable events noted patient going for central line change and aspiration of diaphg collection also started on minimal feeds - Current Medication List Current Medications: Active Medications Acetaminophen (Ofirmev Injection -) 1,000 mg IVPB Q6H PRN PRN Reason: FEVER Last Admin: 08/25/16 01:50 Dose: 1,000 mg Albuterol/Ipratropium (Duoneb -) 1 amp NEB QIDR [facility] Last Admin: 08/25/16 11:08 Dose: 1 amp Chlorhexidine Gluconate (Peridex -) 15 ml MM BID [facility] Last Admin: 08/25/16 10:42 Dose: Not Given Dextrose (D50w (Vial) -) 50 ml IVPUSH Q15M PRN PRN Reason: BLOOD SUGAR < 60 Enoxaparin Sodium (Lovenox -) 40 mg SQ BID [facility] Last Admin: 08/25/16 12:16 Dose: 40 mg Fentanyl (Duragesic 25mcg Patch -) 1 patch TD Q72H [facility] Last Admin: 08/23/16 15:16 Dose: Not Given Furosemide (Lasix Injection -) 20 mg IVPB DAILY [facility] Last Admin: 08/25/16 10:19 Dose: 20 mg Fat Emulsion Intravenous (Intralipid -) 250 mls @ 20.833 mls/hr IV DAILY@2200 [facility] Last Admin: 08/24/16 22:10 Dose: 20.833 mls/hr Famotidine/Sodium Chloride (Pepcid 20 Mg Premixed Ivpb -) 50 mls @ 100 mls/hr IVPB BID [facility] Last Admin: 08/25/16 12:33 Dose: 100 mls/hr Piperacillin Sod/Tazobactam Sod (Zosyn 4.5gm Ivpb (Pre-Docked)) 100 mls @ 200 mls/hr IVPB Q6H-IV [facility] PRN Reason: Protocol Last Admin: 08/25/16 16:52 Dose: 200 mls/hr Fluconazole (Diflucan 200 Mg/D5w Premixed Ivpb -) 100 mls @ 100 mls/hr IVPB DAILY [facility] Last Admin: 08/25/16 10:24 Dose: 100 mls/hr Magnesium Sulfate 4 gm/Insulin Human Regular 20 units / Thiamine HCl 100 mg/ Sodium Chloride 60 meq/ Potassium Chloride 10 meq/ Multivitamins /Minerals 10 ml / Potassium Phosphate 40 mm/ Folic Acid 1 mg/ Sterile Water/ Amino Acids / Dextrose 1,500 mls @ 62.5 mls/hr IVPB DAILY@1600 [facility] Last Admin: 08/25/16 17:45 Dose: 62.5 mls/hr Insulin Aspart (Novolog Vial Sliding Scale -) 1 vial SQ ACHS [facility] PRN Reason: Protocol Last Admin: 08/25/16 17:41 Dose: 2 units Miscellaneous (Duragesic Patch Waste) 1 each TD PRN PRN PRN Reason: PAIN Last Admin: 08/20/16 15:54 Dose: 1 each Morphine Sulfate (Morphine Injection -) 2 mg IVPUSH Q4H PRN PRN Reason: PAIN Last Admin: 08/24/16 14:30 Dose: 2 mg - Objective Vital Signs: Vital Signs Temperature 99.2 F 08/25/16 18:00 Pulse Rate 94 H 08/25/16 18:00 Respiratory Rate 18 08/25/16 18:00 Blood Pressure 133/69 08/25/16 18:00 O2 Sat by Pulse Oximetry (%) 97 08/22/16 11:00 Constitutional: Yes: No Distress, Calm Cardiovascular: Yes: Regular Rate and Rhythm Respiratory: Yes: Regular, CTA Bilaterally Gastrointestinal: Yes: Normal Bowel Sounds, Soft Musculoskeletal: Yes: Other Extremities: Yes: Other Neurological: Yes: Alert Psychiatric: Yes: Alert Labs: CBC, BMP 08/25/16 06:00 08/25/16 06:00 INR, PTT INR 1.50 (0.82-1.09) H 08/09/16 11:30 Fibrinogen > 700.0 mg/dL (238-498) H 07/31/16 05:40 Assessment/Plan Problem List - Problems (1) Abdominal pain Code(s): R10.9 - UNSPECIFIED ABDOMINAL PAIN Qualifiers: Qualified Code(s): R10.33 - Periumbilical pain (2) Perforated abdominal viscus Code(s): [id number] - (3) Perforated viscus Code(s): R19.8 - OTH SYMPTOMS AND SIGNS INVOLVING THE DGSTV SYS AND ABDOMEN (4) Hypertension Code(s): I10 - ESSENTIAL (PRIMARY) HYPERTENSION Qualifiers: Qualified Code(s): I10 - Essential (primary) hypertension lactic acidosis fevers generalized swelling gangrene of the tip of the fingers noted pseudomonas pneumonia plan patient stable continue suctioning tripple lumen to be changed drainage of collection
[2016-08-25] MEDS ORDERED: PT OWN MED DRAWER 7, Y5N ONE (20:46)
[2016-08-25] MEDS: FAT EMULSIONS 250 ML IV SCH (21:15)
[2016-08-26] MEDS: PIPERACILLIN/TAZOB 4.5 GM 100 ML IVPB SCH ×4 (02:56→23:41)
[2016-08-26] MEDS: morphine CARPU-JECT 2 MG/1 ML DISP.SYRIN IVPUSH PRN (03:02)
[2016-08-26] MEDS: ALBUTEROL SO4 2.5/IPRATROPIUM 0.5 INH SOL 3 ML VIAL.NEB. NEB SCH ×3 (06:00→11:32)
[2016-08-26] MEDS: INSULIN SLIDING SCALE (NOVOLOG) 1 VIAL SQ SCH ×4 (06:52→23:52)
[2016-08-26 08:23] LABS: BASOPHIL 0.9 % (0-2.0); EOSINOPHIL 2.6 % (0-4.5); MCH 28.9 pg (25.7-33.7); MCHC 33.8 g/dl (32.0-36.0); MEAN CELL VOLUME 85.3 fl (80-96); MEAN PLT VOLUME 7.8 fl (7.5-11.1); NEUTROPHILS 68.2 % (42.8-82.8); PLATELET COUNT 421 K/MM3 (134-434); RDW 14.8 % (11.6-15.6); WHITE BLOOD COUNT 9.4 K/mm3 (4.0-10.0)
[2016-08-26 08:58] LABS: ALBUMIN 1.4 g/dl (3.4-5.0); ALK PHOS 175 U/L (45-117); ANION GAP 7 (8-16); BILIRUBIN,TOTAL 0.5 mg/dL (0.2-1.0); CALCIUM 8.4 mg/dL (8.5-10.1); CO2 28 mmol/L (21-32); CREATININE 0.3 mg/dL (0.55-1.02); GLUCOSE,RANDOM 218 mg/dL (74-106); MAGNESIUM 1.7 mg/dL (1.8-2.4); SGOT/AST 23 U/L (15-37); SGPT/ALT 18 U/L (12-78); TOT PROT 6.4 g/dl (6.4-8.2)
[2016-08-26] MEDS: CHLORHEXIDINE GLUCONATE 0.12% 15ML CUP MM SCH ×2 (10:08→23:43)
--- NOTE | 2016-08-26 11:28 | PN ---
Progress Note (short form) - Note Progress Note: PULMONARY Vented on volume assist control. No fevers recorded. Last Vital Signs Temp Pulse Resp BP Pulse Ox 99.8 F H 94 H 16 118/68 97 08/26/16 10:00 08/26/16 10:00 08/26/16 10:00 08/26/16 10:00 08/22/16 11:00 Gen: vented, poorly responsive Heart: tachycardic, regular Lung: scattered rhonchi Abd: soft, nontender Ext: multiple ulcers, dry gangrene of bilateral feet, fingers CBC, BMP 08/26/16 06:45 08/26/16 06:45 Active Medications Acetaminophen (Ofirmev Injection -) 1,000 mg IVPB Q6H PRN PRN Reason: FEVER Last Admin: 08/25/16 01:50 Dose: 1,000 mg Albuterol/Ipratropium (Duoneb -) 1 amp NEB QIDR [facility] Last Admin: 08/26/16 06:00 Dose: 1 amp Chlorhexidine Gluconate (Peridex -) 15 ml MM BID [facility] Last Admin: 08/26/16 10:08 Dose: 15 ml Dextrose (D50w (Vial) -) 50 ml IVPUSH Q15M PRN PRN Reason: BLOOD SUGAR < 60 Enoxaparin Sodium (Lovenox -) 40 mg SQ BID [facility] Last Admin: 08/25/16 21:16 Dose: 40 mg Fentanyl (Duragesic 25mcg Patch -) 1 patch TD Q72H [facility] Last Admin: 08/23/16 15:16 Dose: Not Given Furosemide (Lasix Injection -) 20 mg IVPB DAILY [facility] Last Admin: 08/25/16 10:19 Dose: 20 mg Fat Emulsion Intravenous (Intralipid -) 250 mls @ 20.833 mls/hr IV DAILY@2200 [facility] Last Admin: 08/25/16 21:15 Dose: 20.833 mls/hr Famotidine/Sodium Chloride (Pepcid 20 Mg Premixed Ivpb -) 50 mls @ 100 mls/hr IVPB BID [facility] Last Admin: 08/25/16 21:17 Dose: 100 mls/hr Piperacillin Sod/Tazobactam Sod (Zosyn 4.5gm Ivpb (Pre-Docked)) 100 mls @ 200 mls/hr IVPB Q6H-IV [facility] PRN Reason: Protocol Last Admin: 08/26/16 10:06 Dose: 200 mls/hr Fluconazole (Diflucan 200 Mg/D5w Premixed Ivpb -) 100 mls @ 100 mls/hr IVPB DAILY [facility] Last Admin: 08/25/16 10:24 Dose: 100 mls/hr Magnesium Sulfate 4 gm/Insulin Human Regular 20 units / Thiamine HCl 100 mg/ Sodium Chloride 60 meq/ Potassium Chloride 10 meq/ Multivitamins /Minerals 10 ml / Potassium Phosphate 40 mm/ Folic Acid 1 mg/ Sterile Water/ Amino Acids / Dextrose 1,500 mls @ 62.5 mls/hr IVPB DAILY@1600 [facility] Last Admin: 08/25/16 17:45 Dose: 62.5 mls/hr Insulin Aspart (Novolog Vial Sliding Scale -) 1 vial SQ ACHS [facility] PRN Reason: Protocol Last Admin: 08/26/16 06:52 Dose: 4 units Miscellaneous (Duragesic Patch Waste) 1 each TD PRN PRN PRN Reason: PAIN Last Admin: 08/20/16 15:54 Dose: 1 each Morphine Sulfate (Morphine Injection -) 2 mg IVPUSH Q4H PRN PRN Reason: PAIN Last Admin: 08/26/16 03:02 Dose: 2 mg A/P Perforated Duodenal Ulcer Peritonitis s/p ex-lap/omental patch repair 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
[2016-08-26] MEDS: FUROSEMIDE 40 MG/4 ML INJECTABLE VIAL IVPB SCH (11:31)
[2016-08-26] MEDS: FAMOTIDINE 20 MG/50 ML IVPB 50 ML IVPB SCH ×2 (11:37→23:43)
--- NOTE | 2016-08-26 11:38 | PN ---
Progress Note (short form) - Note Progress Note: Renal Follow up for ZAHIRA/Metabolic acidosis Pt seen and examined at the bedside on Vent, A/C mode, 40% FiO2 no fevers overnight Vital Signs Temperature 99.8 F H 08/26/16 10:00 Pulse Rate 94 H 08/26/16 10:00 Respiratory Rate 16 08/26/16 10:00 Blood Pressure 118/68 08/26/16 10:00 O2 Sat by Pulse Oximetry (%) 97 08/22/16 11:00 Intake & Output 08/23/16 08/24/16 08/25/16 08/26/16 23:59 23:59 23:59 23:59 Intake Total 1903.5 2465 2610 1125 Output Total 2100 2200 1900 700 Balance -196.5 265 710 425 Gen: on Vent, NAD CVS: RRR, No M/R Lungs: Dec BS b/l lung andino Ext: 1+ edema in LE CBC, BMP 08/26/16 06:45 08/26/16 06:45 Current Medications Acetaminophen (Ofirmev Injection -) 1,000 mg IVPB Q6H PRN PRN Reason: FEVER Last Admin: 08/25/16 01:50 Dose: 1,000 mg Albuterol/Ipratropium (Duoneb -) 1 amp NEB QIDR [facility] Last Admin: 08/26/16 11:32 Dose: 1 amp Chlorhexidine Gluconate (Peridex -) 15 ml MM BID [facility] Last Admin: 08/26/16 10:08 Dose: 15 ml Dextrose (D50w (Vial) -) 50 ml IVPUSH Q15M PRN PRN Reason: BLOOD SUGAR < 60 Enoxaparin Sodium (Lovenox -) 40 mg SQ BID [facility] Last Admin: 08/25/16 21:16 Dose: 40 mg Fentanyl (Duragesic 25mcg Patch -) 1 patch TD Q72H [facility] Last Admin: 08/23/16 15:16 Dose: Not Given Furosemide (Lasix Injection -) 20 mg IVPB DAILY [facility] Last Admin: 08/26/16 11:31 Dose: 20 mg Fat Emulsion Intravenous (Intralipid -) 250 mls @ 20.833 mls/hr IV DAILY@2200 [facility] Last Admin: 08/25/16 21:15 Dose: 20.833 mls/hr Famotidine/Sodium Chloride (Pepcid 20 Mg Premixed Ivpb -) 50 mls @ 100 mls/hr IVPB BID [facility] Last Admin: 08/26/16 11:37 Dose: 100 mls/hr Piperacillin Sod/Tazobactam Sod (Zosyn 4.5gm Ivpb (Pre-Docked)) 100 mls @ 200 mls/hr IVPB Q6H-IV [facility] PRN Reason: Protocol Last Admin: 08/26/16 10:06 Dose: 200 mls/hr Fluconazole (Diflucan 200 Mg/D5w Premixed Ivpb -) 100 mls @ 100 mls/hr IVPB DAILY [facility] Last Admin: 08/25/16 10:24 Dose: 100 mls/hr Magnesium Sulfate 4 gm/Insulin Human Regular 20 units / Thiamine HCl 100 mg/ Sodium Chloride 60 meq/ Potassium Chloride 10 meq/ Multivitamins /Minerals 10 ml / Potassium Phosphate 40 mm/ Folic Acid 1 mg/ Sterile Water/ Amino Acids / Dextrose 1,500 mls @ 62.5 mls/hr IVPB DAILY@1600 [facility] Last Admin: 08/25/16 17:45 Dose: 62.5 mls/hr Insulin Aspart (Novolog Vial Sliding Scale -) 1 vial SQ ACHS [facility] PRN Reason: Protocol Last Admin: 08/26/16 06:52 Dose: 4 units Miscellaneous (Duragesic Patch Waste) 1 each TD PRN PRN PRN Reason: PAIN Last Admin: 08/20/16 15:54 Dose: 1 each Morphine Sulfate (Morphine Injection -) 2 mg IVPUSH Q4H PRN PRN Reason: PAIN Last Admin: 08/26/16 03:02 Dose: 2 mg A/P 65 year old woman with PMhx of hypertension, hypercholesterolemia, diabetes mellitus who presented with Abd pain and found to have perforated Abd viscus s/ p emergent Sx now with Septic Shock, ZAHIRA and Metabolic Acidosis. #Sepsis/Perforated Abd Viscus/Abscess Abx as per ID Surgical follow up Vent support #NPO on TPN/Electrolyte abnormalities continue TPN for now enteral feeding when ok with sx #Edema from 3rd spacing continue Lasix prognosis guarded Cyril Tubbs DO
[2016-08-26] MEDS ORDERED: INSULIN (NOVOLOG) ASPART 100 UNITS/ML 10ML VIAL ONE (12:18)
[2016-08-26] MEDS: ENOXAPARIN NA (PORCINE) 40 MG/0.4 ML DISP.SYRIN SQ SCH ×2 (12:34→23:43)
[2016-08-26] MEDS: FLUCONAZOLE 200 MG/D5W 100 ML IVPB SCH (12:38)
[2016-08-26] MEDS: fentaNYL 25mcg/hr PATCH.TD72 TD SCH (15:05)
[2016-08-26] MEDS: FENTANYL PATCH WASTE TD PRN (15:18)
--- NOTE | 2016-08-26 16:01 | PN ---
Progress Note, Physician Chief Complaint: Remained at her base line , low grade fever , opens eye to verbal command, on Vent Saturating well. FS are poorly controlled History of Present Illness: 65-year-old F H/O hypertension, hypercholesterolemia, T2DM, ETOH abuse, was presented to ED with abd pain and weight loss underwent exploratory laprotomy for perforated duodenal ulcer on 07/21/16 developed hypotention and sepsis intubate now on trach, colostomy and TPN.on Vent and IV abxfor Pseudomonas., abdominal wound still dischargung with abscess formation. - Current Medication List Current Medications: Active Medications Acetaminophen (Ofirmev Injection -) 1,000 mg IVPB Q6H PRN PRN Reason: FEVER Last Admin: 08/25/16 01:50 Dose: 1,000 mg Chlorhexidine Gluconate (Peridex -) 15 ml MM BID [facility] Last Admin: 08/26/16 10:08 Dose: 15 ml Dextrose (D50w (Vial) -) 50 ml IVPUSH Q15M PRN PRN Reason: BLOOD SUGAR < 60 Enoxaparin Sodium (Lovenox -) 40 mg SQ BID [facility] Last Admin: 08/26/16 12:34 Dose: Not Given Fentanyl (Duragesic 25mcg Patch -) 1 patch TD Q72H [facility] Last Admin: 08/26/16 15:05 Dose: 1 patch Furosemide (Lasix Injection -) 20 mg IVPB DAILY [facility] Last Admin: 08/26/16 11:31 Dose: 20 mg Fat Emulsion Intravenous (Intralipid -) 250 mls @ 20.833 mls/hr IV DAILY@2200 [facility] Last Admin: 08/25/16 21:15 Dose: 20.833 mls/hr Famotidine/Sodium Chloride (Pepcid 20 Mg Premixed Ivpb -) 50 mls @ 100 mls/hr IVPB BID [facility] Last Admin: 08/26/16 11:37 Dose: 100 mls/hr Fluconazole (Diflucan 200 Mg/D5w Premixed Ivpb -) 100 mls @ 100 mls/hr IVPB DAILY [facility] Last Admin: 08/26/16 12:38 Dose: 100 mls/hr Magnesium Sulfate 4 gm/Insulin Human Regular 20 units / Thiamine HCl 100 mg/ Sodium Chloride 60 meq/ Potassium Chloride 10 meq/ Multivitamins /Minerals 10 ml / Potassium Phosphate 40 mm/ Folic Acid 1 mg/ Sterile Water/ Amino Acids / Dextrose 1,500 mls @ 62.5 mls/hr IVPB DAILY@1600 [facility] Last Admin: 08/25/16 17:45 Dose: 62.5 mls/hr Insulin Aspart (Novolog Vial Sliding Scale -) 1 vial SQ ACHS [facility] PRN Reason: Protocol Last Admin: 08/26/16 12:38 Dose: 4 units Insulin Detemir (Levemir Vial) 8 units SQ HS [facility] Miscellaneous (Duragesic Patch Waste) 1 each TD PRN PRN PRN Reason: PAIN Last Admin: 08/26/16 15:18 Dose: 1 each Morphine Sulfate (Morphine Injection -) 2 mg IVPUSH Q4H PRN PRN Reason: PAIN Last Admin: 08/26/16 03:02 Dose: 2 mg - Objective Vital Signs: Vital Signs Temperature 98.9 F 08/26/16 15:01 Pulse Rate 98 H 08/26/16 15:01 Respiratory Rate 17 08/26/16 15:01 Blood Pressure 136/100 08/26/16 15:01 O2 Sat by Pulse Oximetry (%) 97 08/22/16 11:00 P Exam Patient remained altered minimally responsive, on Vent HEENT: Trach at the place, need intermittent Vent support, mm most, anemia NECK; Rt Subclavian at place, due for change, no JVD CHEST: Good AE minimal crepts ABD; discharge from stoma, exudative collection BS + EXT; extensive edema, skin peeling and gangrene of distal 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 Derm; extensive skin peeling and gangrene of fingers and toes, Labs: CBC, BMP 08/26/16 06:45 08/26/16 06:45 INR, PTT INR 1.50 (0.82-1.09) H 08/09/16 11:30 Fibrinogen > 700.0 mg/dL (238-498) H 07/31/16 05:40 Problem List - Problems (1) Perforated abdominal viscus Assessment/Plan: Patient present with Rt UQ pain and with free air, Duodenal ulcer perforation s /p surgery. now fistula formation draining exudates.fistula still has discharge evaluate by surgery. and GI consult, patient has colostomy bag at place, abdominal wound discharging pus. Schedule for ID Guided abscess drainage. Code(s): [id number] - (2) Acute metabolic encephalopathy Assessment/Plan: Secondary to hypoperfusion due to septic shock, at present no significant improvement , most likely hypoxic encephalopathy. Code(s): G93.41 - METABOLIC ENCEPHALOPATHY (3) Thrombocytopenia Assessment/Plan: Due to sepsis, Platelet count improved Code(s): D69.6 - THROMBOCYTOPENIA, UNSPECIFIED (4) Ischemia of extremity Assessment/Plan: Ischemia off all extremities due to prolonged vasopressor use, patient needed pressure to maintain BP, now off pressors wound care healing slowly. Code(s): I99.8 - OTHER DISORDER OF CIRCULATORY SYSTEM (5) Sepsis Assessment/Plan: Due to perforated gastric now off pressors, on I V fluconazole and Zosyn F/U cultures.Prognosis is guarded. TWBC normal, remained afebrile. Code(s): A41.9 - SEPSIS, UNSPECIFIED ORGANISM (6) Severe malnutrition Assessment/Plan: On TPN and Tube feeding tolerating well. Code(s): E43 - UNSPECIFIED SEVERE PROTEIN-CALORIE MALNUTRITION
--- NOTE | 2016-08-26 16:46 | PN ---
Progress Note, Physician History of Present Illness: patient stable events noted line changed collection aspirated - Current Medication List Current Medications: Active Medications Acetaminophen (Ofirmev Injection -) 1,000 mg IVPB Q6H PRN PRN Reason: FEVER Last Admin: 08/25/16 01:50 Dose: 1,000 mg Chlorhexidine Gluconate (Peridex -) 15 ml MM BID [facility] Last Admin: 08/26/16 10:08 Dose: 15 ml Dextrose (D50w (Vial) -) 50 ml IVPUSH Q15M PRN PRN Reason: BLOOD SUGAR < 60 Enoxaparin Sodium (Lovenox -) 40 mg SQ BID [facility] Last Admin: 08/26/16 12:34 Dose: Not Given Fentanyl (Duragesic 25mcg Patch -) 1 patch TD Q72H [facility] Last Admin: 08/26/16 15:05 Dose: 1 patch Furosemide (Lasix Injection -) 20 mg IVPB DAILY [facility] Last Admin: 08/26/16 11:31 Dose: 20 mg Fat Emulsion Intravenous (Intralipid -) 250 mls @ 20.833 mls/hr IV DAILY@2200 [facility] Last Admin: 08/25/16 21:15 Dose: 20.833 mls/hr Famotidine/Sodium Chloride (Pepcid 20 Mg Premixed Ivpb -) 50 mls @ 100 mls/hr IVPB BID [facility] Last Admin: 08/26/16 11:37 Dose: 100 mls/hr Fluconazole (Diflucan 200 Mg/D5w Premixed Ivpb -) 100 mls @ 100 mls/hr IVPB DAILY [facility] Last Admin: 08/26/16 12:38 Dose: 100 mls/hr Magnesium Sulfate 4 gm/Insulin Human Regular 20 units / Thiamine HCl 100 mg/ Sodium Chloride 60 meq/ Potassium Chloride 10 meq/ Multivitamins /Minerals 10 ml / Potassium Phosphate 40 mm/ Folic Acid 1 mg/ Sterile Water/ Amino Acids / Dextrose 1,500 mls @ 62.5 mls/hr IVPB DAILY@1600 [facility] Last Admin: 08/25/16 17:45 Dose: 62.5 mls/hr Piperacillin Sod/Tazobactam Sod (Zosyn 4.5gm Ivpb (Pre-Docked)) 100 mls @ 200 mls/hr IVPB Q6H-IV [facility] PRN Reason: Protocol Insulin Aspart (Novolog Vial Sliding Scale -) 1 vial SQ ACHS [facility] PRN Reason: Protocol Last Admin: 08/26/16 12:38 Dose: 4 units Insulin Detemir (Levemir Vial) 8 units SQ HS [facility] Miscellaneous (Duragesic Patch Waste) 1 each TD PRN PRN PRN Reason: PAIN Last Admin: 08/26/16 15:18 Dose: 1 each Morphine Sulfate (Morphine Injection -) 2 mg IVPUSH Q4H PRN PRN Reason: PAIN Last Admin: 08/26/16 03:02 Dose: 2 mg - Objective Vital Signs: Vital Signs Temperature 98.9 F 08/26/16 15:01 Pulse Rate 110 H 08/26/16 16:40 Respiratory Rate 21 08/26/16 16:40 Blood Pressure 119/65 08/26/16 16:40 O2 Sat by Pulse Oximetry (%) 99 08/26/16 16:40 Constitutional: Yes: No Distress, Calm Neck: Yes: Other Cardiovascular: Yes: Regular Rate and Rhythm Respiratory: Yes: Mechanically Ventilated, Other (trach) Gastrointestinal: Yes: Normal Bowel Sounds, Soft, Other (fistula low output) Musculoskeletal: Yes: Other Extremities: Yes: Other (dry gangrene of toes of hand anf feet) Neurological: Yes: Alert, Other Psychiatric: Yes: Alert Labs: CBC, BMP 08/26/16 06:45 08/26/16 06:45 INR, PTT INR 1.50 (0.82-1.09) H 08/09/16 11:30 Fibrinogen > 700.0 mg/dL (238-498) H 07/31/16 05:40 Assessment/Plan Problem List - Problems (1) Abdominal pain Code(s): R10.9 - UNSPECIFIED ABDOMINAL PAIN Qualifiers: Qualified Code(s): R10.33 - Periumbilical pain (2) Perforated abdominal viscus Code(s): [id number] - (3) Perforated viscus Code(s): R19.8 - OTH SYMPTOMS AND SIGNS INVOLVING THE DGSTV SYS AND ABDOMEN (4) Hypertension Code(s): I10 - ESSENTIAL (PRIMARY) HYPERTENSION Qualifiers: Qualified Code(s): I10 - Essential (primary) hypertension lactic acidosis fevers generalized swelling gangrene of the tip of the fingers noted pseudomonas pneumonia plan patient stable continue suctioning await for results of fluid nutrition rest as per primary
[2016-08-26] MEDS: [UNRECOGNIZED DRUG - OTHER] IVPB SCH (17:35)
[2016-08-26] MEDS: MAGNESIUM SULFATE IVPB SCH (17:35)
[2016-08-26] MEDS: THIAMINE HCL IVPB SCH (17:35)
[2016-08-26] MEDS: INSULIN REGULAR IVPB SCH (17:35)
--- NOTE | 2016-08-26 18:06 | PN ---
Progress Note, Physician - Current Medication List Current Medications: Active Medications Acetaminophen (Ofirmev Injection -) 1,000 mg IVPB Q6H PRN PRN Reason: FEVER Last Admin: 08/25/16 01:50 Dose: 1,000 mg Chlorhexidine Gluconate (Peridex -) 15 ml MM BID [facility] Last Admin: 08/26/16 10:08 Dose: 15 ml Dextrose (D50w (Vial) -) 50 ml IVPUSH Q15M PRN PRN Reason: BLOOD SUGAR < 60 Enoxaparin Sodium (Lovenox -) 40 mg SQ BID [facility] Last Admin: 08/26/16 12:34 Dose: Not Given Fentanyl (Duragesic 25mcg Patch -) 1 patch TD Q72H [facility] Last Admin: 08/26/16 15:05 Dose: 1 patch Furosemide (Lasix Injection -) 20 mg IVPB DAILY [facility] Last Admin: 08/26/16 11:31 Dose: 20 mg Fat Emulsion Intravenous (Intralipid -) 250 mls @ 20.833 mls/hr IV DAILY@2200 [facility] Last Admin: 08/25/16 21:15 Dose: 20.833 mls/hr Famotidine/Sodium Chloride (Pepcid 20 Mg Premixed Ivpb -) 50 mls @ 100 mls/hr IVPB BID [facility] Last Admin: 08/26/16 11:37 Dose: 100 mls/hr Fluconazole (Diflucan 200 Mg/D5w Premixed Ivpb -) 100 mls @ 100 mls/hr IVPB DAILY [facility] Last Admin: 08/26/16 12:38 Dose: 100 mls/hr Magnesium Sulfate 4 gm/Insulin Human Regular 20 units / Thiamine HCl 100 mg/ Sodium Chloride 60 meq/ Potassium Chloride 10 meq/ Multivitamins /Minerals 10 ml / Potassium Phosphate 40 mm/ Folic Acid 1 mg/ Sterile Water/ Amino Acids / Dextrose 1,500 mls @ 62.5 mls/hr IVPB DAILY@1600 [facility] Last Admin: 08/26/16 17:35 Dose: 62.5 mls/hr Piperacillin Sod/Tazobactam Sod (Zosyn 4.5gm Ivpb (Pre-Docked)) 100 mls @ 200 mls/hr IVPB Q6H-IV [facility] PRN Reason: Protocol Insulin Aspart (Novolog Vial Sliding Scale -) 1 vial SQ ACHS [facility] PRN Reason: Protocol Last Admin: 08/26/16 12:38 Dose: 4 units Insulin Detemir (Levemir Vial) 8 units SQ HS [facility] Miscellaneous (Duragesic Patch Waste) 1 each TD PRN PRN PRN Reason: PAIN Last Admin: 08/26/16 15:18 Dose: 1 each Morphine Sulfate (Morphine Injection -) 2 mg IVPUSH Q4H PRN PRN Reason: PAIN Last Admin: 08/26/16 03:02 Dose: 2 mg - Objective Vital Signs: Vital Signs Temperature 98.9 F 08/26/16 15:01 Pulse Rate 108 H 08/26/16 17:15 Respiratory Rate 22 08/26/16 17:15 Blood Pressure 115/63 08/26/16 17:15 O2 Sat by Pulse Oximetry (%) 96 08/26/16 17:15 Labs: CBC, BMP 08/26/16 06:45 08/26/16 06:45 INR, PTT INR 1.50 (0.82-1.09) H 08/09/16 11:30 Fibrinogen > 700.0 mg/dL (238-498) H 07/31/16 05:40 Problem List - Problems (1) Abdominal pain Code(s): R10.9 - UNSPECIFIED ABDOMINAL PAIN Qualifiers: Abdominal location: periumbilical Qualified Code(s): R10.33 - Periumbilical pain (2) Perforated abdominal viscus Code(s): [id number] - (3) Perforated viscus Code(s): R19.8 - OTH SYMPTOMS AND SIGNS INVOLVING THE DGSTV SYS AND ABDOMEN (4) Hypertension Code(s): I10 - ESSENTIAL (PRIMARY) HYPERTENSION Qualifiers: Hypertension type: essential hypertension Qualified Code(s): I10 - Essential (primary) hypertension Assessment/Plan Surgery: Subcapsular liver abscess has been drained by interventional radiology. Ernesto pus noted. A catheter is place at thr site of the enteric fistula/ Patient is getting feeding via feeding tube in the stomach. WBC has improved. Request for feeding tube by interventional radiology , made. IV line has been changed. Continue antibiotics, Improve nutrition.
[2016-08-26] MEDS ORDERED: MAGNESIUM SULF 50% (8.12 MEQ/2 ML-1 GM VIAL) IVPB ONE (21:30)
[2016-08-26] MEDS ORDERED: PT OWN MED DRAWER 7, Y5N ONE (21:44)
[2016-08-26] MEDS ORDERED: INSULIN DETEMIR 100 UNITS/ML MDV SQ SCH (22:00)
[2016-08-26] MEDS: FAT EMULSIONS 250 ML IV SCH (23:41)
[2016-08-27] MEDS: morphine CARPU-JECT 2 MG/1 ML DISP.SYRIN IVPUSH PRN ×4 (00:04→14:52)
[2016-08-27] MEDS: ACETAMINOPHEN 1000 MG/100 ML VIAL (NON FORMULARY) IVPB PRN ×2 (03:21→16:54)
[2016-08-27] MEDS: PIPERACILLIN/TAZOB 4.5 GM 100 ML IVPB SCH ×4 (03:21→22:52)
[2016-08-27] MEDS: INSULIN SLIDING SCALE (NOVOLOG) 1 VIAL SQ SCH ×4 (06:38→23:20)
[2016-08-27 07:39] LABS: BASOPHIL 0.8 % (0-2.0); EOSINOPHIL 2.3 % (0-4.5); MCH 28.5 pg (25.7-33.7); MCHC 33.5 g/dl (32.0-36.0); MEAN CELL VOLUME 85.2 fl (80-96); MEAN PLT VOLUME 7.6 fl (7.5-11.1); PLATELET COUNT 427 K/MM3 (134-434); RDW 14.8 % (11.6-15.6)
[2016-08-27 08:41] LABS: ALBUMIN 1.5 g/dl (3.4-5.0); ALK PHOS 186 U/L (45-117); ANION GAP 8 (8-16); BILIRUBIN,TOTAL 0.4 mg/dL (0.2-1.0); CALCIUM 8.8 mg/dL (8.5-10.1); CO2 29 mmol/L (21-32); CREATININE 0.3 mg/dL (0.55-1.02); GLUCOSE,RANDOM 198 mg/dL (74-106); MAGNESIUM 2.3 mg/dL (1.8-2.4); PHOSPHOROUS 3.7 mg/dL (2.5-4.9); SGOT/AST 32 U/L (15-37); SGPT/ALT 28 U/L (12-78); TOT PROT 6.6 g/dl (6.4-8.2)
[2016-08-27] MEDS ORDERED: PT OWN MED DRAWER 7, Y5N ONE ×2 (08:59→18:03)
[2016-08-27] MEDS: FLUCONAZOLE 200 MG/D5W 100 ML IVPB SCH (09:17)
[2016-08-27] MEDS: FAMOTIDINE 20 MG/50 ML IVPB 50 ML IVPB SCH ×2 (09:17→22:54)
[2016-08-27] MEDS: FUROSEMIDE 40 MG/4 ML INJECTABLE VIAL IVPB SCH (09:18)
[2016-08-27] MEDS: ENOXAPARIN NA (PORCINE) 40 MG/0.4 ML DISP.SYRIN SQ SCH ×2 (09:19→22:54)
[2016-08-27] MEDS: CHLORHEXIDINE GLUCONATE 0.12% 15ML CUP MM SCH ×2 (09:20→22:56)
--- NOTE | 2016-08-27 12:24 | PN ---
Progress Note (short form) - Note Progress Note: Renal Follow up for ZAHIRA/Metabolic acidosis Pt seen and examined at the bedside on Vent, 40% FiO2 NGT feeds started yesterday at low rate Vital Signs Temperature 98.9 F 08/27/16 06:00 Pulse Rate 101 H 08/27/16 09:00 Respiratory Rate 19 08/27/16 10:20 Blood Pressure 133/65 08/27/16 09:00 O2 Sat by Pulse Oximetry (%) 96 08/26/16 17:15 Intake & Output 08/24/16 08/25/16 08/26/16 08/27/16 23:59 23:59 23:59 23:59 Intake Total 2465 2610 2875 910 Output Total 2200 1900 2575 400 Balance 265 710 300 510 Gen: on Vent, NAD CVS: RRR, No M/R Lungs: Dec BS b/l lung andino Ext: 1+ edema in LE CBC, BMP 08/27/16 06:30 08/27/16 06:30 Laboratory Tests 08/27/16 08/27/16 06:30 06:30 Hemoglobin A1c % 7.4 H D Calcium 8.8 Phosphorus 3.7 Albumin 1.5 L Current Medications Acetaminophen (Ofirmev Injection -) 1,000 mg IVPB Q6H PRN PRN Reason: FEVER Last Admin: 08/27/16 03:21 Dose: 1,000 mg Chlorhexidine Gluconate (Peridex -) 15 ml MM BID [facility] Last Admin: 08/27/16 09:20 Dose: 15 ml Dextrose (D50w (Vial) -) 50 ml IVPUSH Q15M PRN PRN Reason: BLOOD SUGAR < 60 Enoxaparin Sodium (Lovenox -) 40 mg SQ BID [facility] Last Admin: 08/27/16 09:19 Dose: 40 mg Fentanyl (Duragesic 25mcg Patch -) 1 patch TD Q72H [facility] Last Admin: 08/26/16 15:05 Dose: 1 patch Furosemide (Lasix Injection -) 20 mg IVPB DAILY [facility] Last Admin: 08/27/16 09:18 Dose: 20 mg Fat Emulsion Intravenous (Intralipid -) 250 mls @ 20.833 mls/hr IV DAILY@2200 [facility] Last Admin: 08/26/16 23:41 Dose: 20.833 mls/hr Famotidine/Sodium Chloride (Pepcid 20 Mg Premixed Ivpb -) 50 mls @ 100 mls/hr IVPB BID [facility] Last Admin: 08/27/16 09:17 Dose: 100 mls/hr Fluconazole (Diflucan 200 Mg/D5w Premixed Ivpb -) 100 mls @ 100 mls/hr IVPB DAILY [facility] Last Admin: 08/27/16 09:17 Dose: 100 mls/hr Magnesium Sulfate 4 gm/Insulin Human Regular 20 units / Thiamine HCl 100 mg/ Sodium Chloride 60 meq/ Potassium Chloride 10 meq/ Multivitamins /Minerals 10 ml / Potassium Phosphate 40 mm/ Folic Acid 1 mg/ Sterile Water/ Amino Acids / Dextrose 1,500 mls @ 62.5 mls/hr IVPB DAILY@1600 [facility] Last Admin: 08/26/16 17:35 Dose: 62.5 mls/hr Piperacillin Sod/Tazobactam Sod (Zosyn 4.5gm Ivpb (Pre-Docked)) 100 mls @ 200 mls/hr IVPB Q6H-IV [facility] PRN Reason: Protocol Last Admin: 08/27/16 09:17 Dose: 200 mls/hr Insulin Aspart (Novolog Vial Sliding Scale -) 1 vial SQ ACHS [facility] PRN Reason: Protocol Last Admin: 08/27/16 12:14 Dose: 6 units Insulin Detemir (Levemir Vial) 8 units SQ HS [facility] Last Admin: 08/26/16 23:42 Dose: 8 units Miscellaneous (Duragesic Patch Waste) 1 each TD PRN PRN PRN Reason: PAIN Last Admin: 08/26/16 15:18 Dose: 1 each Morphine Sulfate (Morphine Injection -) 2 mg IVPUSH Q4H PRN PRN Reason: PAIN Last Admin: 08/27/16 09:17 Dose: 2 mg A/P 65 year old woman with PMhx of hypertension, hypercholesterolemia, diabetes mellitus who presented with Abd pain and found to have perforated Abd viscus s/ p emergent Sx now with Septic Shock, ZAHIRA and Metabolic Acidosis. #Sepsis/Perforated Abd Viscus/Abscess Abx as per ID Surgical follow up Vent support #TPN/Electrolyte abnormalities started on enteral feeds yesterday if tolerating it well can plan to discontinue TPN tomorrow if ok with sx continue same TPN Rx for today trend electrolytes #Edema from 3rd spacing continue Lasix prognosis guarded Cyril Tubbs DO
--- NOTE | 2016-08-27 13:20 | PN ---
Progress Note, Physician History of Present Illness: PULMONARY POORLY RESPONSIVE ON VENT SUPPORT AC MODE.AFEBRILE - Current Medication List Current Medications: Active Medications Acetaminophen (Ofirmev Injection -) 1,000 mg IVPB Q6H PRN PRN Reason: FEVER Last Admin: 08/27/16 03:21 Dose: 1,000 mg Chlorhexidine Gluconate (Peridex -) 15 ml MM BID [facility] Last Admin: 08/27/16 09:20 Dose: 15 ml Dextrose (D50w (Vial) -) 50 ml IVPUSH Q15M PRN PRN Reason: BLOOD SUGAR < 60 Enoxaparin Sodium (Lovenox -) 40 mg SQ BID [facility] Last Admin: 08/27/16 09:19 Dose: 40 mg Fentanyl (Duragesic 25mcg Patch -) 1 patch TD Q72H [facility] Last Admin: 08/26/16 15:05 Dose: 1 patch Furosemide (Lasix Injection -) 20 mg IVPB DAILY [facility] Last Admin: 08/27/16 09:18 Dose: 20 mg Fat Emulsion Intravenous (Intralipid -) 250 mls @ 20.833 mls/hr IV DAILY@2200 [facility] Last Admin: 08/26/16 23:41 Dose: 20.833 mls/hr Famotidine/Sodium Chloride (Pepcid 20 Mg Premixed Ivpb -) 50 mls @ 100 mls/hr IVPB BID [facility] Last Admin: 08/27/16 09:17 Dose: 100 mls/hr Fluconazole (Diflucan 200 Mg/D5w Premixed Ivpb -) 100 mls @ 100 mls/hr IVPB DAILY [facility] Last Admin: 08/27/16 09:17 Dose: 100 mls/hr Magnesium Sulfate 4 gm/Insulin Human Regular 20 units / Thiamine HCl 100 mg/ Sodium Chloride 60 meq/ Potassium Chloride 10 meq/ Multivitamins /Minerals 10 ml / Potassium Phosphate 40 mm/ Folic Acid 1 mg/ Sterile Water/ Amino Acids / Dextrose 1,500 mls @ 62.5 mls/hr IVPB DAILY@1600 [facility] Last Admin: 08/26/16 17:35 Dose: 62.5 mls/hr Piperacillin Sod/Tazobactam Sod (Zosyn 4.5gm Ivpb (Pre-Docked)) 100 mls @ 200 mls/hr IVPB Q6H-IV [facility] PRN Reason: Protocol Last Admin: 08/27/16 09:17 Dose: 200 mls/hr Insulin Aspart (Novolog Vial Sliding Scale -) 1 vial SQ ACHS [facility] PRN Reason: Protocol Last Admin: 08/27/16 12:14 Dose: 6 units Insulin Detemir (Levemir Vial) 8 units SQ HS [facility] Last Admin: 08/26/16 23:42 Dose: 8 units Miscellaneous (Duragesic Patch Waste) 1 each TD PRN PRN PRN Reason: PAIN Last Admin: 08/26/16 15:18 Dose: 1 each Morphine Sulfate (Morphine Injection -) 2 mg IVPUSH Q4H PRN PRN Reason: PAIN Last Admin: 08/27/16 09:17 Dose: 2 mg - Objective Vital Signs: Vital Signs Temperature 98.9 F 08/27/16 06:00 Pulse Rate 101 H 08/27/16 09:00 Respiratory Rate 19 08/27/16 10:20 Blood Pressure 133/65 08/27/16 09:00 O2 Sat by Pulse Oximetry (%) 96 08/26/16 17:15 Constitutional: Yes: Thin, Other (POORLY RESPONSIVE) Eyes: Yes: WNL HENT: Yes: WNL Neck: Yes: Supple (TRACH) Cardiovascular: Yes: Regular Rate and Rhythm, S1, S2 Respiratory: Yes: Rhonchi Gastrointestinal: Yes: Normal Bowel Sounds, Soft Extremities: Yes: Cool, Other (GANGRENE FEET,FINGERS) Edema: Yes Labs: CBC, BMP 08/27/16 06:30 08/27/16 06:30 INR, PTT INR 1.50 (0.82-1.09) H 08/09/16 11:30 Fibrinogen > 700.0 mg/dL (238-498) H 07/31/16 05:40 Problem List - Problems (1) ZAHIRA (acute kidney injury) Code(s): N17.9 - ACUTE KIDNEY FAILURE, UNSPECIFIED (2) Acute metabolic encephalopathy Code(s): G93.41 - METABOLIC ENCEPHALOPATHY (3) Ischemia of extremity Code(s): I99.8 - OTHER DISORDER OF CIRCULATORY SYSTEM (4) Metabolic acidemia Code(s): E87.2 - ACIDOSIS (5) Perforated abdominal viscus Code(s): [id number] - (6) Sepsis Code(s): A41.9 - SEPSIS, UNSPECIFIED ORGANISM (7) Acute respiratory failure Code(s): J96.00 - ACUTE RESPIRATORY FAILURE, UNSP W HYPOXIA OR HYPERCAPNIA Assessment/Plan A/P Perforated Duodenal Ulcer Peritonitis s/p ex-lap/omental patch repair 07/16 Enterocutaneous Fistula Acute Respiratory Failure S/P Septic Shock Lactic Acidosis resolved Leukopenia/Thrombocytopenia resolved DM DVT Gangrene extremities - inhaled bronchodilators - antibiotics per ID - anticoagulation - TPN per renal - vent support ac mode - DVT/GI prophylaxis - prognosis is poor, continue discussions regarding advanced directives and goals of care - recommend palliative due to failure to wean, anticipated amputations, poor quality of life DR OSEI
--- NOTE | 2016-08-27 13:41 | PN ---
Progress Note, Physician Chief Complaint: Remained at her base line yesterday subcapsular hepatic abscess drianged and IV access changed, , low grade fever , opens eye to verbal command, on Vent Saturating well. FS are poorly controlled History of Present Illness: 65-year-old F H/O hypertension, hypercholesterolemia, T2DM, ETOH abuse, was presented to ED with abd pain and weight loss underwent exploratory laprotomy for perforated duodenal ulcer on 07/21/16 developed hypotention and sepsis intubate now on trach, colostomy and TPN.on Vent and IV abxfor Pseudomonas., abdominal wound still dischargung with abscess formation. - Current Medication List Current Medications: Active Medications Acetaminophen (Ofirmev Injection -) 1,000 mg IVPB Q6H PRN PRN Reason: FEVER Last Admin: 08/27/16 03:21 Dose: 1,000 mg Chlorhexidine Gluconate (Peridex -) 15 ml MM BID [facility] Last Admin: 08/27/16 09:20 Dose: 15 ml Dextrose (D50w (Vial) -) 50 ml IVPUSH Q15M PRN PRN Reason: BLOOD SUGAR < 60 Enoxaparin Sodium (Lovenox -) 40 mg SQ BID [facility] Last Admin: 08/27/16 09:19 Dose: 40 mg Fentanyl (Duragesic 25mcg Patch -) 1 patch TD Q72H [facility] Last Admin: 08/26/16 15:05 Dose: 1 patch Furosemide (Lasix Injection -) 20 mg IVPB DAILY [facility] Last Admin: 08/27/16 09:18 Dose: 20 mg Fat Emulsion Intravenous (Intralipid -) 250 mls @ 20.833 mls/hr IV DAILY@2200 [facility] Last Admin: 08/26/16 23:41 Dose: 20.833 mls/hr Famotidine/Sodium Chloride (Pepcid 20 Mg Premixed Ivpb -) 50 mls @ 100 mls/hr IVPB BID [facility] Last Admin: 08/27/16 09:17 Dose: 100 mls/hr Fluconazole (Diflucan 200 Mg/D5w Premixed Ivpb -) 100 mls @ 100 mls/hr IVPB DAILY [facility] Last Admin: 08/27/16 09:17 Dose: 100 mls/hr Magnesium Sulfate 4 gm/Insulin Human Regular 20 units / Thiamine HCl 100 mg/ Sodium Chloride 60 meq/ Potassium Chloride 10 meq/ Multivitamins /Minerals 10 ml / Potassium Phosphate 40 mm/ Folic Acid 1 mg/ Sterile Water/ Amino Acids / Dextrose 1,500 mls @ 62.5 mls/hr IVPB DAILY@1600 [facility] Last Admin: 08/26/16 17:35 Dose: 62.5 mls/hr Piperacillin Sod/Tazobactam Sod (Zosyn 4.5gm Ivpb (Pre-Docked)) 100 mls @ 200 mls/hr IVPB Q6H-IV [facility] PRN Reason: Protocol Last Admin: 08/27/16 09:17 Dose: 200 mls/hr Insulin Aspart (Novolog Vial Sliding Scale -) 1 vial SQ ACHS [facility] PRN Reason: Protocol Last Admin: 08/27/16 12:14 Dose: 6 units Insulin Detemir (Levemir Vial) 8 units SQ HS [facility] Last Admin: 08/26/16 23:42 Dose: 8 units Miscellaneous (Duragesic Patch Waste) 1 each TD PRN PRN PRN Reason: PAIN Last Admin: 08/26/16 15:18 Dose: 1 each Morphine Sulfate (Morphine Injection -) 2 mg IVPUSH Q4H PRN PRN Reason: PAIN Last Admin: 08/27/16 09:17 Dose: 2 mg - Objective Vital Signs: Vital Signs Temperature 98.9 F 08/27/16 06:00 Pulse Rate 101 H 08/27/16 09:00 Respiratory Rate 19 08/27/16 10:20 Blood Pressure 133/65 08/27/16 09:00 O2 Sat by Pulse Oximetry (%) 96 08/26/16 17:15 Labs: CBC, BMP 08/27/16 06:30 08/27/16 06:30 INR, PTT INR 1.50 (0.82-1.09) H 08/09/16 11:30 Fibrinogen > 700.0 mg/dL (238-498) H 07/31/16 05:40 Problem List - Problems (1) Perforated abdominal viscus Assessment/Plan: Patient present with Rt UQ pain and with free air, Duodenal ulcer perforation s /p surgery. now fistula formation draining exudates.fistula still has discharge evaluate by surgery. and GI consult, patient has colostomy bag at place, abdominal wound discharging pus. Schedule for ID Guided abscess drainage. Code(s): [id number] - (2) Acute metabolic encephalopathy Assessment/Plan: Secondary to hypoperfusion due to septic shock, at present no significant improvement , most likely hypoxic encephalopathy. Code(s): G93.41 - METABOLIC ENCEPHALOPATHY (3) Ischemia of extremity Code(s): I99.8 - OTHER DISORDER OF CIRCULATORY SYSTEM (4) Sepsis Code(s): A41.9 - SEPSIS, UNSPECIFIED ORGANISM (5) Severe malnutrition Code(s): E43 - UNSPECIFIED SEVERE PROTEIN-CALORIE MALNUTRITION (6) Hepatic abscess Assessment/Plan: SUB capsular hepatic abscess drainged Code(s): K75.0 - ABSCESS OF LIVER (7) Diabetes mellitus Assessment/Plan: poorly controlled add basal insulin Levimir 10 unit daily. Code(s): E11.9 - TYPE 2 DIABETES MELLITUS WITHOUT COMPLICATIONS Qualifiers: Diabetes mellitus type: type 2
[2016-08-27] MEDS: OFLOXACIN 0.3% OPHTHALMIC SOLUTION 5 ML BOTTLE OD SCH ×3 (14:50→22:55)
[2016-08-27] MEDS: prednisoLONE ACETATE 1% OPHTH SUSP 5 ML BOTTLE OD SCH ×2 (14:51→22:55)
[2016-08-27] MEDS: MAGNESIUM SULFATE IVPB SCH (16:53)
[2016-08-27] MEDS: [UNRECOGNIZED DRUG - OTHER] IVPB SCH (16:53)
[2016-08-27] MEDS: INSULIN REGULAR IVPB SCH (16:53)
[2016-08-27] MEDS: THIAMINE HCL IVPB SCH (16:53)
--- NOTE | 2016-08-27 17:28 | PN ---
Progress Note, Physician History of Present Illness: patient stable events noted no new issues - Current Medication List Current Medications: Active Medications Acetaminophen (Ofirmev Injection -) 1,000 mg IVPB Q6H PRN PRN Reason: FEVER Last Admin: 08/27/16 16:54 Dose: 1,000 mg Chlorhexidine Gluconate (Peridex -) 15 ml MM BID [facility] Last Admin: 08/27/16 09:20 Dose: 15 ml Dextrose (D50w (Vial) -) 50 ml IVPUSH Q15M PRN PRN Reason: BLOOD SUGAR < 60 Enoxaparin Sodium (Lovenox -) 40 mg SQ BID [facility] Last Admin: 08/27/16 09:19 Dose: 40 mg Fentanyl (Duragesic 25mcg Patch -) 1 patch TD Q72H [facility] Last Admin: 08/26/16 15:05 Dose: 1 patch Furosemide (Lasix Injection -) 20 mg IVPB DAILY [facility] Last Admin: 08/27/16 09:18 Dose: 20 mg Fat Emulsion Intravenous (Intralipid -) 250 mls @ 20.833 mls/hr IV DAILY@2200 [facility] Last Admin: 08/26/16 23:41 Dose: 20.833 mls/hr Famotidine/Sodium Chloride (Pepcid 20 Mg Premixed Ivpb -) 50 mls @ 100 mls/hr IVPB BID [facility] Last Admin: 08/27/16 09:17 Dose: 100 mls/hr Fluconazole (Diflucan 200 Mg/D5w Premixed Ivpb -) 100 mls @ 100 mls/hr IVPB DAILY [facility] Last Admin: 08/27/16 09:17 Dose: 100 mls/hr Magnesium Sulfate 4 gm/Insulin Human Regular 20 units / Thiamine HCl 100 mg/ Sodium Chloride 60 meq/ Potassium Chloride 10 meq/ Multivitamins /Minerals 10 ml / Potassium Phosphate 40 mm/ Folic Acid 1 mg/ Sterile Water/ Amino Acids / Dextrose 1,500 mls @ 62.5 mls/hr IVPB DAILY@1600 [facility] Last Admin: 08/27/16 16:53 Dose: 62.5 mls/hr Piperacillin Sod/Tazobactam Sod (Zosyn 4.5gm Ivpb (Pre-Docked)) 100 mls @ 200 mls/hr IVPB Q6H-IV [facility] PRN Reason: Protocol Last Admin: 08/27/16 14:51 Dose: 200 mls/hr Insulin Aspart (Novolog Vial Sliding Scale -) 1 vial SQ ACHS [facility] PRN Reason: Protocol Last Admin: 08/27/16 16:54 Dose: 2 units Insulin Detemir (Levemir Vial) 12 units SQ HS [facility] Miscellaneous (Duragesic Patch Waste) 1 each TD PRN PRN PRN Reason: PAIN Last Admin: 08/26/16 15:18 Dose: 1 each Morphine Sulfate (Morphine Injection -) 2 mg IVPUSH Q4H PRN PRN Reason: PAIN Last Admin: 08/27/16 14:52 Dose: 2 mg Ofloxacin (Ocuflox 0.3% Eye Drops -) 1 drop OD Q4HWA [facility] Last Admin: 08/27/16 14:50 Dose: Not Given Prednisolone Acetate (Pred Forte 1% -) 1 drop OD BID [facility] Last Admin: 08/27/16 14:51 Dose: Not Given - Objective Vital Signs: Vital Signs Temperature 100.1 F H 08/27/16 14:34 Pulse Rate 108 H 08/27/16 14:34 Respiratory Rate 16 08/27/16 14:34 Blood Pressure 110/56 08/27/16 14:34 O2 Sat by Pulse Oximetry (%) 96 08/26/16 17:15 Constitutional: Yes: Calm Cardiovascular: Yes: Regular Rate and Rhythm Respiratory: Yes: Mechanically Ventilated, Other (trach in place) Gastrointestinal: Yes: Normal Bowel Sounds, Soft, Other Genitourinary: Yes: Bacon Present Musculoskeletal: Yes: Other Extremities: Yes: Other Neurological: Yes: Alert Psychiatric: Yes: Alert Labs: CBC, BMP 08/27/16 06:30 08/27/16 06:30 INR, PTT INR 1.50 (0.82-1.09) H 08/09/16 11:30 Fibrinogen > 700.0 mg/dL (238-498) H 07/31/16 05:40 Assessment/Plan Problem List - Problems (1) Abdominal pain Code(s): R10.9 - UNSPECIFIED ABDOMINAL PAIN Qualifiers: Qualified Code(s): R10.33 - Periumbilical pain (2) Perforated abdominal viscus Code(s): [id number] - (3) Perforated viscus Code(s): R19.8 - OTH SYMPTOMS AND SIGNS INVOLVING THE DGSTV SYS AND ABDOMEN (4) Hypertension Code(s): I10 - ESSENTIAL (PRIMARY) HYPERTENSION Qualifiers: Qualified Code(s): I10 - Essential (primary) hypertension lactic acidosis fevers generalized swelling gangrene of the tip of the fingers noted pseudomonas pneumonia plan patient stable continue suctioning await for results of fluid intermediate manager plan for nutrition need to be made rest as per primary
[2016-08-27] MEDS ORDERED: INSULIN DETEMIR 100 UNITS/ML MDV SQ SCH (22:00)
[2016-08-27] MEDS: FAT EMULSIONS 250 ML IV SCH (22:53)
[2016-08-28] MEDS: morphine CARPU-JECT 2 MG/1 ML DISP.SYRIN IVPUSH PRN ×3 (00:02→14:30)
[2016-08-28] MEDS: PIPERACILLIN/TAZOB 4.5 GM 100 ML IVPB SCH ×4 (03:09→20:55)
[2016-08-28] MEDS: OFLOXACIN 0.3% OPHTHALMIC SOLUTION 5 ML BOTTLE OD SCH ×5 (06:32→21:01)
[2016-08-28] MEDS: INSULIN SLIDING SCALE (NOVOLOG) 1 VIAL SQ SCH ×4 (06:36→21:00)
[2016-08-28 08:11] LABS: BASOPHIL 0.9 % (0-2.0); EOSINOPHIL 3.4 % (0-4.5); MCH 29.1 pg (25.7-33.7); MEAN CELL VOLUME 85.7 fl (80-96); MEAN PLT VOLUME 7.8 fl (7.5-11.1); NEUTROPHILS 67.2 % (42.8-82.8); PLATELET COUNT 408 K/MM3 (134-434); RDW 14.9 % (11.6-15.6); WHITE BLOOD COUNT 9.6 K/mm3 (4.0-10.0)
[2016-08-28 08:42] LABS: ALBUMIN 1.5 g/dl (3.4-5.0); ANION GAP 7 (8-16); CALCIUM 8.9 mg/dL (8.5-10.1); CO2 29 mmol/L (21-32); GLUCOSE,RANDOM 195 mg/dL (74-106); MAGNESIUM 1.7 mg/dL (1.8-2.4)
[2016-08-28 08:46] LABS: ALK PHOS 182 U/L (45-117); BILIRUBIN,TOTAL 0.6 mg/dL (0.2-1.0); CREATININE 0.4 mg/dL (0.55-1.02); PHOSPHOROUS 3.9 mg/dL (2.5-4.9); SGOT/AST 19 U/L (15-37); SGPT/ALT 24 U/L (12-78); TOT PROT 6.6 g/dl (6.4-8.2)
[2016-08-28] MEDS: FUROSEMIDE 40 MG/4 ML INJECTABLE VIAL IVPB SCH (10:30)
[2016-08-28] MEDS: CHLORHEXIDINE GLUCONATE 0.12% 15ML CUP MM SCH ×2 (10:31→21:01)
[2016-08-28] MEDS: prednisoLONE ACETATE 1% OPHTH SUSP 5 ML BOTTLE OD SCH ×2 (10:31→21:01)
--- NOTE | 2016-08-28 11:19 | PN ---
Progress Note (short form) - Note Progress Note: PULMONARY Vented on volume assist control. Febrile to 100.8 this AM. Remains poorly responsive. Last Vital Signs Temp Pulse Resp BP Pulse Ox 100.8 F H 94 H 18 122/68 96 08/28/16 09:53 08/28/16 09:53 08/28/16 09:53 08/28/16 09:53 08/27/16 22:00 Gen: vented, poorly responsive Heart: tachycardic, regular Lung: scattered rhonchi Abd: soft, nontender Ext: multiple ulcers, dry gangrene of bilateral feet, fingers CBC, BMP 08/28/16 07:00 08/28/16 07:00 Active Medications Acetaminophen (Ofirmev Injection -) 1,000 mg IVPB Q6H PRN PRN Reason: FEVER Last Admin: 08/27/16 16:54 Dose: 1,000 mg Chlorhexidine Gluconate (Peridex -) 15 ml MM BID [facility] Last Admin: 08/28/16 10:31 Dose: 15 ml Dextrose (D50w (Vial) -) 50 ml IVPUSH Q15M PRN PRN Reason: BLOOD SUGAR < 60 Enoxaparin Sodium (Lovenox -) 40 mg SQ BID [facility] Last Admin: 08/27/16 22:54 Dose: 40 mg Fentanyl (Duragesic 25mcg Patch -) 1 patch TD Q72H [facility] Last Admin: 08/26/16 15:05 Dose: 1 patch Furosemide (Lasix Injection -) 20 mg IVPB DAILY [facility] Last Admin: 08/28/16 10:30 Dose: 20 mg Fat Emulsion Intravenous (Intralipid -) 250 mls @ 20.833 mls/hr IV DAILY@2200 [facility] Last Admin: 08/27/16 22:53 Dose: 20.833 mls/hr Famotidine/Sodium Chloride (Pepcid 20 Mg Premixed Ivpb -) 50 mls @ 100 mls/hr IVPB BID [facility] Last Admin: 08/27/16 22:54 Dose: 100 mls/hr Fluconazole (Diflucan 200 Mg/D5w Premixed Ivpb -) 100 mls @ 100 mls/hr IVPB DAILY [facility] Last Admin: 08/27/16 09:17 Dose: 100 mls/hr Magnesium Sulfate 4 gm/Insulin Human Regular 20 units / Thiamine HCl 100 mg/ Sodium Chloride 60 meq/ Potassium Chloride 10 meq/ Multivitamins /Minerals 10 ml / Potassium Phosphate 40 mm/ Folic Acid 1 mg/ Sterile Water/ Amino Acids / Dextrose 1,500 mls @ 62.5 mls/hr IVPB DAILY@1600 [facility] Last Admin: 08/27/16 16:53 Dose: 62.5 mls/hr Piperacillin Sod/Tazobactam Sod (Zosyn 4.5gm Ivpb (Pre-Docked)) 100 mls @ 200 mls/hr IVPB Q6H-IV [facility] PRN Reason: Protocol Last Admin: 08/28/16 10:39 Dose: 200 mls/hr Insulin Aspart (Novolog Vial Sliding Scale -) 1 vial SQ ACHS [facility] PRN Reason: Protocol Last Admin: 08/28/16 06:36 Dose: 4 units Insulin Detemir (Levemir Vial) 12 units SQ HS [facility] Last Admin: 08/27/16 22:54 Dose: 12 units Miscellaneous (Duragesic Patch Waste) 1 each TD PRN PRN PRN Reason: PAIN Last Admin: 08/26/16 15:18 Dose: 1 each Morphine Sulfate (Morphine Injection -) 2 mg IVPUSH Q4H PRN PRN Reason: PAIN Last Admin: 08/28/16 04:11 Dose: 2 mg Ofloxacin (Ocuflox 0.3% Eye Drops -) 1 drop OD Q4HWA [facility] Last Admin: 08/28/16 10:30 Dose: 1 drop Prednisolone Acetate (Pred Forte 1% -) 1 drop OD BID [facility] Last Admin: 08/28/16 10:31 Dose: 1 drop A/P Perforated Duodenal Ulcer Peritonitis s/p ex-lap/omental patch repair 07/16 Enterocutaneous Fistula Acute Respiratory Failure s/p Tracheostomy s/p Septic Shock DM DVT Gangrene - antibiotics per ID - taper Fio2 to keep Spo2 >90% - continue anticoagulation - enteral feeds as tolerated - spontaneous breathing trials as tolerated - DVT/GI prophylaxis - prognosis is poor, continue discussions regarding advanced directives and goals of care - recommend palliative due to failure to wean, anticipated amputations, poor quality of life
[2016-08-28] MEDS ORDERED: INSULIN (NOVOLOG) ASPART 100 UNITS/ML 10ML VIAL ONE ×3 (11:23→20:47)
[2016-08-28] MEDS: FAMOTIDINE 20 MG/50 ML IVPB 50 ML IVPB SCH ×2 (11:25→21:01)
[2016-08-28 11:53] LABS: INR 1.31 (0.82-1.09); PROTHROMBIN TIME (PATIENT) 14.5 SEC (9.98-11.88)
[2016-08-28] MEDS: FLUCONAZOLE 200 MG/D5W 100 ML IVPB SCH (12:24)
[2016-08-28] MEDS: ENOXAPARIN NA (PORCINE) 40 MG/0.4 ML DISP.SYRIN SQ SCH ×2 (12:34→21:00)
--- NOTE | 2016-08-28 15:06 | PN ---
Progress Note, Physician - Current Medication List Current Medications: Active Medications Acetaminophen (Ofirmev Injection -) 1,000 mg IVPB Q6H PRN PRN Reason: FEVER Last Admin: 08/27/16 16:54 Dose: 1,000 mg Chlorhexidine Gluconate (Peridex -) 15 ml MM BID [facility] Last Admin: 08/28/16 10:31 Dose: 15 ml Dextrose (D50w (Vial) -) 50 ml IVPUSH Q15M PRN PRN Reason: BLOOD SUGAR < 60 Enoxaparin Sodium (Lovenox -) 40 mg SQ BID [facility] Last Admin: 08/28/16 12:34 Dose: 40 mg Fentanyl (Duragesic 25mcg Patch -) 1 patch TD Q72H [facility] Last Admin: 08/26/16 15:05 Dose: 1 patch Furosemide (Lasix Injection -) 20 mg IVPB DAILY [facility] Last Admin: 08/28/16 10:30 Dose: 20 mg Fat Emulsion Intravenous (Intralipid -) 250 mls @ 20.833 mls/hr IV DAILY@2200 [facility] Last Admin: 08/27/16 22:53 Dose: 20.833 mls/hr Famotidine/Sodium Chloride (Pepcid 20 Mg Premixed Ivpb -) 50 mls @ 100 mls/hr IVPB BID [facility] Last Admin: 08/28/16 11:25 Dose: 100 mls/hr Fluconazole (Diflucan 200 Mg/D5w Premixed Ivpb -) 100 mls @ 100 mls/hr IVPB DAILY [facility] Last Admin: 08/28/16 12:24 Dose: 100 mls/hr Magnesium Sulfate 4 gm/Insulin Human Regular 20 units / Thiamine HCl 100 mg/ Sodium Chloride 60 meq/ Potassium Chloride 10 meq/ Multivitamins /Minerals 10 ml / Potassium Phosphate 40 mm/ Folic Acid 1 mg/ Sterile Water/ Amino Acids / Dextrose 1,500 mls @ 62.5 mls/hr IVPB DAILY@1600 [facility] Last Admin: 08/27/16 16:53 Dose: 62.5 mls/hr Piperacillin Sod/Tazobactam Sod (Zosyn 4.5gm Ivpb (Pre-Docked)) 100 mls @ 200 mls/hr IVPB Q6H-IV [facility] PRN Reason: Protocol Last Admin: 08/28/16 14:30 Dose: 200 mls/hr Insulin Aspart (Novolog Vial Sliding Scale -) 1 vial SQ ACHS [facility] PRN Reason: Protocol Last Admin: 08/28/16 11:30 Dose: 4 units Insulin Detemir (Levemir Vial) 12 units SQ HS [facility] Last Admin: 08/27/16 22:54 Dose: 12 units Miscellaneous (Duragesic Patch Waste) 1 each TD PRN PRN PRN Reason: PAIN Last Admin: 08/26/16 15:18 Dose: 1 each Morphine Sulfate (Morphine Injection -) 2 mg IVPUSH Q4H PRN PRN Reason: PAIN Last Admin: 08/28/16 14:30 Dose: 2 mg Ofloxacin (Ocuflox 0.3% Eye Drops -) 1 drop OD Q4HWA [facility] Last Admin: 08/28/16 14:29 Dose: 1 drop Prednisolone Acetate (Pred Forte 1% -) 1 drop OD BID [facility] Last Admin: 08/28/16 10:31 Dose: 1 drop - Objective Vital Signs: Vital Signs Temperature 100.8 F H 08/28/16 09:53 Pulse Rate 94 H 08/28/16 09:53 Respiratory Rate 21 08/28/16 14:42 Blood Pressure 122/68 08/28/16 09:53 O2 Sat by Pulse Oximetry (%) 96 08/27/16 22:00 Labs: CBC, BMP 08/28/16 07:00 08/28/16 07:00 INR, PTT INR 1.31 (0.82-1.09) H 08/28/16 10:30 Fibrinogen > 700.0 mg/dL (238-498) H 07/31/16 05:40 Problem List - Problems (1) Abdominal pain Code(s): R10.9 - UNSPECIFIED ABDOMINAL PAIN Qualifiers: Abdominal location: periumbilical Qualified Code(s): R10.33 - Periumbilical pain (2) Perforated abdominal viscus Code(s): [id number] - (3) Perforated viscus Code(s): R19.8 - OTH SYMPTOMS AND SIGNS INVOLVING THE DGSTV SYS AND ABDOMEN (4) Hypertension Code(s): I10 - ESSENTIAL (PRIMARY) HYPERTENSION Qualifiers: Hypertension type: essential hypertension Qualified Code(s): I10 - Essential (primary) hypertension Assessment/Plan Surgery: 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 Will incease tube feeding. Culture of pus in negative for aerobic and anearobic organims. All abdominal skin tania are removed. Continue supportive care.
--- NOTE | 2016-08-28 15:16 | PN ---
Progress Note, Physician History of Present Illness: patient looks more sleepy today was more alert according to the nursing in the morning still continues to have low grade fever - Current Medication List Current Medications: Active Medications Acetaminophen (Ofirmev Injection -) 1,000 mg IVPB Q6H PRN PRN Reason: FEVER Last Admin: 08/27/16 16:54 Dose: 1,000 mg Chlorhexidine Gluconate (Peridex -) 15 ml MM BID [facility] Last Admin: 08/28/16 10:31 Dose: 15 ml Dextrose (D50w (Vial) -) 50 ml IVPUSH Q15M PRN PRN Reason: BLOOD SUGAR < 60 Enoxaparin Sodium (Lovenox -) 40 mg SQ BID [facility] Last Admin: 08/28/16 12:34 Dose: 40 mg Fentanyl (Duragesic 25mcg Patch -) 1 patch TD Q72H [facility] Last Admin: 08/26/16 15:05 Dose: 1 patch Furosemide (Lasix Injection -) 20 mg IVPB DAILY [facility] Last Admin: 08/28/16 10:30 Dose: 20 mg Fat Emulsion Intravenous (Intralipid -) 250 mls @ 20.833 mls/hr IV DAILY@2200 [facility] Last Admin: 08/27/16 22:53 Dose: 20.833 mls/hr Famotidine/Sodium Chloride (Pepcid 20 Mg Premixed Ivpb -) 50 mls @ 100 mls/hr IVPB BID [facility] Last Admin: 08/28/16 11:25 Dose: 100 mls/hr Fluconazole (Diflucan 200 Mg/D5w Premixed Ivpb -) 100 mls @ 100 mls/hr IVPB DAILY [facility] Last Admin: 08/28/16 12:24 Dose: 100 mls/hr Magnesium Sulfate 4 gm/Insulin Human Regular 20 units / Thiamine HCl 100 mg/ Sodium Chloride 60 meq/ Potassium Chloride 10 meq/ Multivitamins /Minerals 10 ml / Potassium Phosphate 40 mm/ Folic Acid 1 mg/ Sterile Water/ Amino Acids / Dextrose 1,500 mls @ 62.5 mls/hr IVPB DAILY@1600 [facility] Last Admin: 08/27/16 16:53 Dose: 62.5 mls/hr Piperacillin Sod/Tazobactam Sod (Zosyn 4.5gm Ivpb (Pre-Docked)) 100 mls @ 200 mls/hr IVPB Q6H-IV [facility] PRN Reason: Protocol Last Admin: 08/28/16 14:30 Dose: 200 mls/hr Insulin Aspart (Novolog Vial Sliding Scale -) 1 vial SQ ACHS [facility] PRN Reason: Protocol Last Admin: 08/28/16 11:30 Dose: 4 units Insulin Detemir (Levemir Vial) 12 units SQ HS [facility] Last Admin: 08/27/16 22:54 Dose: 12 units Miscellaneous (Duragesic Patch Waste) 1 each TD PRN PRN PRN Reason: PAIN Last Admin: 08/26/16 15:18 Dose: 1 each Morphine Sulfate (Morphine Injection -) 2 mg IVPUSH Q4H PRN PRN Reason: PAIN Last Admin: 08/28/16 14:30 Dose: 2 mg Ofloxacin (Ocuflox 0.3% Eye Drops -) 1 drop OD Q4HWA [facility] Last Admin: 08/28/16 14:29 Dose: 1 drop Prednisolone Acetate (Pred Forte 1% -) 1 drop OD BID [facility] Last Admin: 08/28/16 10:31 Dose: 1 drop - Objective Vital Signs: Vital Signs Temperature 100.8 F H 08/28/16 09:53 Pulse Rate 94 H 08/28/16 09:53 Respiratory Rate 21 08/28/16 14:42 Blood Pressure 122/68 08/28/16 09:53 O2 Sat by Pulse Oximetry (%) 96 08/27/16 22:00 Constitutional: Yes: Calm Cardiovascular: Yes: Regular Rate and Rhythm Respiratory: Yes: Mechanically Ventilated, Other Gastrointestinal: Yes: Soft Musculoskeletal: Yes: Other Extremities: Yes: Other Wound/Incision: Yes: Clean/Dry, Other (tania removed) Neurological: Yes: Alert Labs: CBC, BMP 08/28/16 07:00 08/28/16 07:00 INR, PTT INR 1.31 (0.82-1.09) H 08/28/16 10:30 Fibrinogen > 700.0 mg/dL (238-498) H 07/31/16 05:40 Assessment/Plan Problem List - Problems (1) Abdominal pain Code(s): R10.9 - UNSPECIFIED ABDOMINAL PAIN Qualifiers: Qualified Code(s): R10.33 - Periumbilical pain (2) Perforated abdominal viscus Code(s): [id number] - (3) Perforated viscus Code(s): R19.8 - OTH SYMPTOMS AND SIGNS INVOLVING THE DGSTV SYS AND ABDOMEN (4) Hypertension Code(s): I10 - ESSENTIAL (PRIMARY) HYPERTENSION Qualifiers: Qualified Code(s): I10 - Essential (primary) hypertension lactic acidosis fevers generalized swelling gangrene of the tip of the fingers noted pseudomonas pneumonia plan patient stable continue suctioning results of aspiration negative so far still continues to have low grade temp
[2016-08-28] MEDS ORDERED: MAGNESIUM SULF 50% (8.12 MEQ/2 ML-1 GM VIAL) IVPB ONE (15:30)
--- NOTE | 2016-08-28 15:41 | PN ---
Progress Note (short form) - Note Progress Note: Renal Follow up for ZAHIRA/Metabolic acidosis Pt seen and examined at the bedside on Vent, 40% FiO2 Febrile this am on TPn Vital Signs Temperature 99.5 F 08/28/16 15:28 Pulse Rate 107 H 08/28/16 15:28 Respiratory Rate 24 08/28/16 15:28 Blood Pressure 134/61 08/28/16 15:28 O2 Sat by Pulse Oximetry (%) 96 08/27/16 22:00 Intake & Output 08/25/16 08/26/16 08/27/16 08/28/16 23:59 23:59 23:59 23:59 Intake Total 2610 2875 3020 660 Output Total 1900 2575 1670 1410 Balance 134 576 2394 -750 Weight 146 lb Gen: on Vent, NAD CVS: RRR, No M/R Lungs: Dec BS b/l lung andino Ext: 1+ edema in LE CBC, BMP 08/28/16 07:00 08/28/16 07:00 Current Medications Acetaminophen (Ofirmev Injection -) 1,000 mg IVPB Q6H PRN PRN Reason: FEVER Last Admin: 08/27/16 16:54 Dose: 1,000 mg Chlorhexidine Gluconate (Peridex -) 15 ml MM BID [facility] Last Admin: 08/28/16 10:31 Dose: 15 ml Dextrose (D50w (Vial) -) 50 ml IVPUSH Q15M PRN PRN Reason: BLOOD SUGAR < 60 Enoxaparin Sodium (Lovenox -) 40 mg SQ BID [facility] Last Admin: 08/28/16 12:34 Dose: 40 mg Fentanyl (Duragesic 25mcg Patch -) 1 patch TD Q72H [facility] Last Admin: 08/26/16 15:05 Dose: 1 patch Furosemide (Lasix Injection -) 20 mg IVPB DAILY [facility] Last Admin: 08/28/16 10:30 Dose: 20 mg Fat Emulsion Intravenous (Intralipid -) 250 mls @ 20.833 mls/hr IV DAILY@2200 [facility] Last Admin: 08/27/16 22:53 Dose: 20.833 mls/hr Famotidine/Sodium Chloride (Pepcid 20 Mg Premixed Ivpb -) 50 mls @ 100 mls/hr IVPB BID [facility] Last Admin: 08/28/16 11:25 Dose: 100 mls/hr Fluconazole (Diflucan 200 Mg/D5w Premixed Ivpb -) 100 mls @ 100 mls/hr IVPB DAILY [facility] Last Admin: 08/28/16 12:24 Dose: 100 mls/hr Magnesium Sulfate 4 gm/Insulin Human Regular 20 units / Thiamine HCl 100 mg/ Sodium Chloride 60 meq/ Potassium Chloride 10 meq/ Multivitamins /Minerals 10 ml / Potassium Phosphate 40 mm/ Folic Acid 1 mg/ Sterile Water/ Amino Acids / Dextrose 1,500 mls @ 62.5 mls/hr IVPB DAILY@1600 [facility] Last Admin: 08/27/16 16:53 Dose: 62.5 mls/hr Piperacillin Sod/Tazobactam Sod (Zosyn 4.5gm Ivpb (Pre-Docked)) 100 mls @ 200 mls/hr IVPB Q6H-IV [facility] PRN Reason: Protocol Last Admin: 08/28/16 14:30 Dose: 200 mls/hr Insulin Aspart (Novolog Vial Sliding Scale -) 1 vial SQ ACHS [facility] PRN Reason: Protocol Last Admin: 08/28/16 11:30 Dose: 4 units Insulin Detemir (Levemir Vial) 12 units SQ HS [facility] Last Admin: 08/27/16 22:54 Dose: 12 units Miscellaneous (Duragesic Patch Waste) 1 each TD PRN PRN PRN Reason: PAIN Last Admin: 08/26/16 15:18 Dose: 1 each Morphine Sulfate (Morphine Injection -) 2 mg IVPUSH Q4H PRN PRN Reason: PAIN Last Admin: 08/28/16 14:30 Dose: 2 mg Ofloxacin (Ocuflox 0.3% Eye Drops -) 1 drop OD Q4HWA [facility] Last Admin: 08/28/16 14:29 Dose: 1 drop Prednisolone Acetate (Pred Forte 1% -) 1 drop OD BID [facility] Last Admin: 08/28/16 10:31 Dose: 1 drop A/P 65 year old woman with PMhx of hypertension, hypercholesterolemia, diabetes mellitus who presented with Abd pain and found to have perforated Abd viscus s/ p emergent Sx now with Septic Shock, ZAHIRA and Metabolic Acidosis. #Sepsis/Perforated Abd Viscus/Abscess Abx as per ID Surgical follow up Vent support on Abx but spiking fevers, ID following #TPN/Electrolyte abnormalities on TPN and low rate GT feeds if able to tolerate enteral nutrition at at rate that meets nutritional demands can d/c TPN continue present tpn for now #Edema from 3rd spacing continue Lasix prognosis guarded Cyril Tubbs DO
--- NOTE | 2016-08-28 15:52 | PN ---
Progress Note, Physician Chief Complaint: Remained at her base line yesterday subcapsular hepatic abscess drained and IV access changed, , low grade fever , opens eye to verbal command, on Vent Saturating well. FS are poorly controlled History of Present Illness: 65-year-old F H/O hypertension, hypercholesterolemia, T2DM, ETOH abuse, was presented to ED with abd pain and weight loss underwent exploratory laprotomy for perforated duodenal ulcer on 07/21/16 developed hypotention and sepsis intubate now on trach, colostomy and TPN.on Vent and IV abxfor Pseudomonas., abdominal wound still dischargung with abscess formation. - Current Medication List Current Medications: Active Medications Acetaminophen (Ofirmev Injection -) 1,000 mg IVPB Q6H PRN PRN Reason: FEVER Last Admin: 08/27/16 16:54 Dose: 1,000 mg Chlorhexidine Gluconate (Peridex -) 15 ml MM BID [facility] Last Admin: 08/28/16 10:31 Dose: 15 ml Dextrose (D50w (Vial) -) 50 ml IVPUSH Q15M PRN PRN Reason: BLOOD SUGAR < 60 Enoxaparin Sodium (Lovenox -) 40 mg SQ BID [facility] Last Admin: 08/28/16 12:34 Dose: 40 mg Fentanyl (Duragesic 25mcg Patch -) 1 patch TD Q72H [facility] Last Admin: 08/26/16 15:05 Dose: 1 patch Furosemide (Lasix Injection -) 20 mg IVPB DAILY [facility] Last Admin: 08/28/16 10:30 Dose: 20 mg Fat Emulsion Intravenous (Intralipid -) 250 mls @ 20.833 mls/hr IV DAILY@2200 [facility] Last Admin: 08/27/16 22:53 Dose: 20.833 mls/hr Famotidine/Sodium Chloride (Pepcid 20 Mg Premixed Ivpb -) 50 mls @ 100 mls/hr IVPB BID [facility] Last Admin: 08/28/16 11:25 Dose: 100 mls/hr Fluconazole (Diflucan 200 Mg/D5w Premixed Ivpb -) 100 mls @ 100 mls/hr IVPB DAILY [facility] Last Admin: 08/28/16 12:24 Dose: 100 mls/hr Magnesium Sulfate 4 gm/Insulin Human Regular 20 units / Thiamine HCl 100 mg/ Sodium Chloride 60 meq/ Potassium Chloride 10 meq/ Multivitamins /Minerals 10 ml / Potassium Phosphate 40 mm/ Folic Acid 1 mg/ Sterile Water/ Amino Acids / Dextrose 1,500 mls @ 62.5 mls/hr IVPB DAILY@1600 [facility] Last Admin: 08/27/16 16:53 Dose: 62.5 mls/hr Piperacillin Sod/Tazobactam Sod (Zosyn 4.5gm Ivpb (Pre-Docked)) 100 mls @ 200 mls/hr IVPB Q6H-IV [facility] PRN Reason: Protocol Last Admin: 08/28/16 14:30 Dose: 200 mls/hr Insulin Aspart (Novolog Vial Sliding Scale -) 1 vial SQ ACHS [facility] PRN Reason: Protocol Last Admin: 08/28/16 11:30 Dose: 4 units Insulin Detemir (Levemir Vial) 12 units SQ HS [facility] Last Admin: 08/27/16 22:54 Dose: 12 units Miscellaneous (Duragesic Patch Waste) 1 each TD PRN PRN PRN Reason: PAIN Last Admin: 08/26/16 15:18 Dose: 1 each Morphine Sulfate (Morphine Injection -) 2 mg IVPUSH Q4H PRN PRN Reason: PAIN Last Admin: 08/28/16 14:30 Dose: 2 mg Ofloxacin (Ocuflox 0.3% Eye Drops -) 1 drop OD Q4HWA [facility] Last Admin: 08/28/16 14:29 Dose: 1 drop Prednisolone Acetate (Pred Forte 1% -) 1 drop OD BID [facility] Last Admin: 08/28/16 10:31 Dose: 1 drop - Objective Vital Signs: Vital Signs Temperature 99.5 F 08/28/16 15:28 Pulse Rate 107 H 08/28/16 15:28 Respiratory Rate 24 08/28/16 15:28 Blood Pressure 134/61 08/28/16 15:28 O2 Sat by Pulse Oximetry (%) 96 08/27/16 22:00 P Exam Patient remained altered minimally responsive, on Vent HEENT: Trach at the place, need intermittent Vent support, mm most, anemia NECK; Rt Subclavian at place, due for change, no JVD CHEST: Good AE minimal crepts ABD; discharge from stoma, exudative collection BS + EXT; extensive edema, skin peeling and gangrene of distal extremities [employer]; 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 Derm; extensive skin peeling and gangrene of fingers and toes, Labs: CBC, BMP 08/28/16 07:00 08/28/16 07:00 INR, PTT INR 1.31 (0.82-1.09) H 08/28/16 10:30 Fibrinogen > 700.0 mg/dL (238-498) H 07/31/16 05:40 Problem List - Problems (1) Perforated abdominal viscus Assessment/Plan: Patient present with Rt UQ pain and with free air, Duodenal ulcer perforation s /p surgery. now fistula formation draining exudates.fistula still has discharge evaluate by surgery. and GI consult, patient has colostomy bag at place, abdominal wound discharging pus. underwent ID Guided abscess drainage. Code(s): [id number] - (2) Acute metabolic encephalopathy Assessment/Plan: Secondary to hypoperfusion due to septic shock, at present no significant improvement , most likely hypoxic encephalopathy. Code(s): G93.41 - METABOLIC ENCEPHALOPATHY (3) Ischemia of extremity Code(s): I99.8 - OTHER DISORDER OF CIRCULATORY SYSTEM (4) Sepsis Assessment/Plan: Due to perforated gastric now off pressors, on I V fluconazole and Zosyn F/U cultures.Prognosis is guarded. TWBC normal. Code(s): A41.9 - SEPSIS, UNSPECIFIED ORGANISM (5) Severe malnutrition Assessment/Plan: On TPN and Tube feeding tolerating well.Schedule for G tube in am Code(s): E43 - UNSPECIFIED SEVERE PROTEIN-CALORIE MALNUTRITION (6) Hepatic abscess Assessment/Plan: SUB capsular hepatic abscess drainged Code(s): K75.0 - ABSCESS OF LIVER (7) Diabetes mellitus Assessment/Plan: poorly controlled add basal insulin Levimir 15 unit daily. Code(s): E11.9 - TYPE 2 DIABETES MELLITUS WITHOUT COMPLICATIONS Qualifiers: Diabetes mellitus type: type 2
[2016-08-28] MEDS: MAGNESIUM SULFATE IVPB SCH (17:42)
[2016-08-28] MEDS: INSULIN REGULAR IVPB SCH (17:42)
[2016-08-28] MEDS: THIAMINE HCL IVPB SCH (17:42)
[2016-08-28] MEDS: [UNRECOGNIZED DRUG - OTHER] IVPB SCH (17:42)
[2016-08-28] MEDS ORDERED: PT OWN MED DRAWER 7, Y5N ONE (20:47)
[2016-08-28] MEDS: FAT EMULSIONS 250 ML IV SCH (21:00)
[2016-08-28] MEDS: INSULIN DETEMIR 100 UNITS/ML MDV SQ SCH (21:00)
[2016-08-29] MEDS ORDERED: PT OWN MED DRAWER 7, Y5N ONE ×4 (02:21→10:21)
[2016-08-29] MEDS: PIPERACILLIN/TAZOB 4.5 GM 100 ML IVPB SCH ×4 (02:22→21:55)
[2016-08-29] MEDS: ACETAMINOPHEN 1000 MG/100 ML VIAL (NON FORMULARY) IVPB PRN ×2 (02:23→16:45)
[2016-08-29] MEDS: OFLOXACIN 0.3% OPHTHALMIC SOLUTION 5 ML BOTTLE OD SCH ×5 (06:31→22:30)
[2016-08-29] MEDS: INSULIN SLIDING SCALE (NOVOLOG) 1 VIAL SQ SCH ×4 (06:47→22:51)
[2016-08-29 07:55] LABS: BASOPHIL 1.1 % (0-2.0); EOSINOPHIL 4.4 % (0-4.5); MCH 28.9 pg (25.7-33.7); MCHC 33.2 g/dl (32.0-36.0); MEAN PLT VOLUME 7.8 fl (7.5-11.1); PLATELET COUNT 413 K/MM3 (134-434); RDW 15.2 % (11.6-15.6); WHITE BLOOD COUNT 9.4 K/mm3 (4.0-10.0)
[2016-08-29 08:03] LABS: ANION GAP 7 (8-16); CALCIUM 9.2 mg/dL (8.5-10.1); CO2 29 mmol/L (21-32); CREATININE 0.3 mg/dL (0.55-1.02); GLUCOSE,RANDOM 166 mg/dL (74-106); MAGNESIUM 1.9 mg/dL (1.8-2.4); PHOSPHOROUS 4.1 mg/dL (2.5-4.9)
[2016-08-29] MEDS: morphine CARPU-JECT 2 MG/1 ML DISP.SYRIN IVPUSH PRN (09:09)
[2016-08-29] MEDS: FUROSEMIDE 40 MG/4 ML INJECTABLE VIAL IVPB SCH (09:10)
[2016-08-29] MEDS: FAMOTIDINE 20 MG/50 ML IVPB 50 ML IVPB SCH ×2 (09:10→22:27)
[2016-08-29] MEDS: FLUCONAZOLE 200 MG/D5W 100 ML IVPB SCH (09:11)
[2016-08-29] MEDS: prednisoLONE ACETATE 1% OPHTH SUSP 5 ML BOTTLE OD SCH ×2 (09:11→22:28)
[2016-08-29] MEDS: ENOXAPARIN NA (PORCINE) 40 MG/0.4 ML DISP.SYRIN SQ SCH ×3 (09:11→22:26)
[2016-08-29] MEDS: CHLORHEXIDINE GLUCONATE 0.12% 15ML CUP MM SCH ×2 (09:12→22:29)
[2016-08-29] MEDS ORDERED: GlUCAGON HUMAN RECOMBINANT 1 MG/VIAL IVPUSH ONE (13:00)
[2016-08-29] MEDS: fentaNYL 25mcg/hr PATCH.TD72 TD SCH (14:18)
[2016-08-29] MEDS: FENTANYL PATCH WASTE TD PRN (14:22)
--- NOTE | 2016-08-29 15:51 | PN ---
Progress Note, Physician History of Present Illness: no changes no new findings - Current Medication List Current Medications: Active Medications Acetaminophen (Ofirmev Injection -) 1,000 mg IVPB Q6H PRN PRN Reason: FEVER Last Admin: 08/29/16 02:23 Dose: 1,000 mg Chlorhexidine Gluconate (Peridex -) 15 ml MM BID [facility] Last Admin: 08/29/16 09:12 Dose: 15 ml Dextrose (D50w (Vial) -) 50 ml IVPUSH Q15M PRN PRN Reason: BLOOD SUGAR < 60 Enoxaparin Sodium (Lovenox -) 40 mg SQ BID [facility] Last Admin: 08/29/16 09:26 Dose: Not Given Fentanyl (Duragesic 25mcg Patch -) 1 patch TD Q72H [facility] Last Admin: 08/29/16 14:18 Dose: 1 patch Furosemide (Lasix Injection -) 20 mg IVPB DAILY [facility] Last Admin: 08/29/16 09:10 Dose: 20 mg Fat Emulsion Intravenous (Intralipid -) 250 mls @ 20.833 mls/hr IV DAILY@2200 [facility] Last Admin: 08/28/16 21:00 Dose: 20.833 mls/hr Famotidine/Sodium Chloride (Pepcid 20 Mg Premixed Ivpb -) 50 mls @ 100 mls/hr IVPB BID [facility] Last Admin: 08/29/16 09:10 Dose: 100 mls/hr Fluconazole (Diflucan 200 Mg/D5w Premixed Ivpb -) 100 mls @ 100 mls/hr IVPB DAILY [facility] Last Admin: 08/29/16 09:11 Dose: 100 mls/hr Magnesium Sulfate 4 gm/Insulin Human Regular 20 units / Thiamine HCl 100 mg/ Sodium Chloride 60 meq/ Potassium Chloride 10 meq/ Multivitamins /Minerals 10 ml / Potassium Phosphate 40 mm/ Folic Acid 1 mg/ Sterile Water/ Amino Acids / Dextrose 1,500 mls @ 62.5 mls/hr IVPB DAILY@1600 [facility] Stop: 08/29/16 15:59 Last Admin: 08/28/16 17:42 Dose: 62.5 mls/hr Piperacillin Sod/Tazobactam Sod (Zosyn 4.5gm Ivpb (Pre-Docked)) 100 mls @ 200 mls/hr IVPB Q6H-IV [facility] PRN Reason: Protocol Last Admin: 08/29/16 14:17 Dose: 200 mls/hr Magnesium Sulfate 4 gm/Insulin Human Regular 20 units / Thiamine HCl 100 mg/ Sodium Chloride 60 meq/ Potassium Chloride 10 meq/ Multivitamins /Minerals 10 ml / Potassium Phosphate 40 mm/ Folic Acid 1 mg/ Chromium/Copper/Manganese/Seleni/ Zn 1 ml/ Sterile Water/Amino Acids/ Dextrose 1,500 mls @ 62.5 mls/hr IVPB DAILY @1600 [facility] Insulin Aspart (Novolog Vial Sliding Scale -) 1 vial SQ ACHS [facility] PRN Reason: Protocol Last Admin: 08/29/16 13:03 Dose: 2 units Insulin Detemir (Levemir Vial) 15 units SQ HS [facility] Last Admin: 08/28/16 21:00 Dose: 15 units Miscellaneous (Duragesic Patch Waste) 1 each TD PRN PRN PRN Reason: PAIN Last Admin: 08/29/16 14:22 Dose: 1 each Morphine Sulfate (Morphine Injection -) 2 mg IVPUSH Q4H PRN PRN Reason: PAIN Last Admin: 08/29/16 09:09 Dose: 2 mg Ofloxacin (Ocuflox 0.3% Eye Drops -) 1 drop OD Q4HWA [facility] Last Admin: 08/29/16 14:18 Dose: 1 drop Prednisolone Acetate (Pred Forte 1% -) 1 drop OD BID [facility] Last Admin: 08/29/16 09:11 Dose: 1 drop - Objective Vital Signs: Vital Signs Temperature 100.9 F H 08/29/16 15:32 Pulse Rate 100 H 08/29/16 15:32 Respiratory Rate 26 H 08/29/16 15:32 Blood Pressure 136/81 08/29/16 15:32 O2 Sat by Pulse Oximetry (%) 96 08/27/16 22:00 Constitutional: Yes: No Distress, Calm Cardiovascular: Yes: Regular Rate and Rhythm Respiratory: Yes: Mechanically Ventilated, Other Gastrointestinal: Yes: Normal Bowel Sounds, Soft Musculoskeletal: Yes: Other Extremities: Yes: Other (patient has gangrene of the ext) Neurological: Yes: Alert, Other Labs: CBC, BMP 08/29/16 06:15 08/29/16 06:15 INR, PTT INR 1.31 (0.82-1.09) H 08/28/16 10:30 Fibrinogen > 700.0 mg/dL (238-498) H 07/31/16 05:40 Assessment/Plan Problem List - Problems (1) Abdominal pain Code(s): R10.9 - UNSPECIFIED ABDOMINAL PAIN Qualifiers: Qualified Code(s): R10.33 - Periumbilical pain (2) Perforated abdominal viscus Code(s): [id number] - (3) Perforated viscus Code(s): R19.8 - OTH SYMPTOMS AND SIGNS INVOLVING THE DGSTV SYS AND ABDOMEN (4) Hypertension Code(s): I10 - ESSENTIAL (PRIMARY) HYPERTENSION Qualifiers: Qualified Code(s): I10 - Essential (primary) hypertension lactic acidosis fevers generalized swelling gangrene of the tip of the fingers noted pseudomonas pneumonia plan patient stable continue suctioning results of aspiration negative so far chcf plan needs to be made
--- NOTE | 2016-08-29 15:56 | PN ---
Progress Note (short form) - Note Progress Note: Renal Follow up for ZAHIRA/Metabolic acidosis Pt seen and examined at the bedside s/p G-tube placement Vital Signs Temperature 100.9 F H 08/29/16 15:32 Pulse Rate 100 H 08/29/16 15:32 Respiratory Rate 26 H 08/29/16 15:32 Blood Pressure 136/81 08/29/16 15:32 O2 Sat by Pulse Oximetry (%) 96 08/27/16 22:00 Intake & Output 08/26/16 08/27/16 08/28/16 08/29/16 23:59 23:59 23:59 23:59 Intake Total 2875 3020 2140 2034.2 Output Total 2575 1670 1910 1735 Balance 300 1350 230 299.2 Weight 146 lb Gen: on Vent, NAD CVS: RRR, No M/R Lungs: Dec BS b/l lung andino Ext: 1+ edema in LE CBC, BMP 08/29/16 06:15 08/29/16 06:15 Current Medications Acetaminophen (Ofirmev Injection -) 1,000 mg IVPB Q6H PRN PRN Reason: FEVER Last Admin: 08/29/16 02:23 Dose: 1,000 mg Chlorhexidine Gluconate (Peridex -) 15 ml MM BID [facility] Last Admin: 08/29/16 09:12 Dose: 15 ml Dextrose (D50w (Vial) -) 50 ml IVPUSH Q15M PRN PRN Reason: BLOOD SUGAR < 60 Enoxaparin Sodium (Lovenox -) 40 mg SQ BID [facility] Last Admin: 08/29/16 09:26 Dose: Not Given Fentanyl (Duragesic 25mcg Patch -) 1 patch TD Q72H [facility] Last Admin: 08/29/16 14:18 Dose: 1 patch Furosemide (Lasix Injection -) 20 mg IVPB DAILY [facility] Last Admin: 08/29/16 09:10 Dose: 20 mg Fat Emulsion Intravenous (Intralipid -) 250 mls @ 20.833 mls/hr IV DAILY@2200 [facility] Last Admin: 08/28/16 21:00 Dose: 20.833 mls/hr Famotidine/Sodium Chloride (Pepcid 20 Mg Premixed Ivpb -) 50 mls @ 100 mls/hr IVPB BID [facility] Last Admin: 08/29/16 09:10 Dose: 100 mls/hr Fluconazole (Diflucan 200 Mg/D5w Premixed Ivpb -) 100 mls @ 100 mls/hr IVPB DAILY [facility] Last Admin: 08/29/16 09:11 Dose: 100 mls/hr Magnesium Sulfate 4 gm/Insulin Human Regular 20 units / Thiamine HCl 100 mg/ Sodium Chloride 60 meq/ Potassium Chloride 10 meq/ Multivitamins /Minerals 10 ml / Potassium Phosphate 40 mm/ Folic Acid 1 mg/ Sterile Water/ Amino Acids / Dextrose 1,500 mls @ 62.5 mls/hr IVPB DAILY@1600 [facility] Stop: 08/29/16 15:59 Last Admin: 08/28/16 17:42 Dose: 62.5 mls/hr Piperacillin Sod/Tazobactam Sod (Zosyn 4.5gm Ivpb (Pre-Docked)) 100 mls @ 200 mls/hr IVPB Q6H-IV [facility] PRN Reason: Protocol Last Admin: 08/29/16 14:17 Dose: 200 mls/hr Magnesium Sulfate 4 gm/Insulin Human Regular 20 units / Thiamine HCl 100 mg/ Sodium Chloride 60 meq/ Potassium Chloride 10 meq/ Multivitamins /Minerals 10 ml / Potassium Phosphate 40 mm/ Folic Acid 1 mg/ Chromium/Copper/Manganese/Seleni/ Zn 1 ml/ Sterile Water/Amino Acids/ Dextrose 1,500 mls @ 62.5 mls/hr IVPB DAILY @1600 [facility] Insulin Aspart (Novolog Vial Sliding Scale -) 1 vial SQ ACHS [facility] PRN Reason: Protocol Last Admin: 08/29/16 13:03 Dose: 2 units Insulin Detemir (Levemir Vial) [address] [facility] Last Admin: 08/28/16 21:00 Dose: 15 units Miscellaneous (Duragesic Patch Waste) 1 each TD PRN PRN PRN Reason: PAIN Last Admin: 08/29/16 14:22 Dose: 1 each Morphine Sulfate (Morphine Injection -) 2 mg IVPUSH Q4H PRN PRN Reason: PAIN Ofloxacin (Ocuflox 0.3% Eye Drops -) 1 drop OD Q4HWA [facility] Last Admin: 08/29/16 14:18 Dose: 1 drop Prednisolone Acetate (Pred Forte 1% -) 1 drop OD BID [facility] Last Admin: 08/29/16 09:11 Dose: 1 drop A/P 65 year old woman with PMhx of hypertension, hypercholesterolemia, diabetes mellitus who presented with Abd pain and found to have perforated Abd viscus s/ p emergent Sx now with Septic Shock, ZAHIRA and Metabolic Acidosis. #Sepsis/Perforated Abd Viscus/Abscess Abx as per ID Surgical follow up Vent support on Abx but spiking fevers, ID following #TPN/Electrolyte abnormalities s/p G-tube placement continue TPN For now until tube feeds can be started #Edema from 3rd spacing continue Lasix prognosis guarded Cyril Tubbs DO
--- NOTE | 2016-08-29 16:02 | PN ---
Progress Note, Physician History of Present Illness: pulmonary more responsive on vent support,ac mode,febrile - Current Medication List Current Medications: Active Medications Acetaminophen (Ofirmev Injection -) 1,000 mg IVPB Q6H PRN PRN Reason: FEVER Last Admin: 08/29/16 02:23 Dose: 1,000 mg Chlorhexidine Gluconate (Peridex -) 15 ml MM BID [facility] Last Admin: 08/29/16 09:12 Dose: 15 ml Dextrose (D50w (Vial) -) 50 ml IVPUSH Q15M PRN PRN Reason: BLOOD SUGAR < 60 Enoxaparin Sodium (Lovenox -) 40 mg SQ BID [facility] Last Admin: 08/29/16 09:26 Dose: Not Given Fentanyl (Duragesic 25mcg Patch -) 1 patch TD Q72H [facility] Last Admin: 08/29/16 14:18 Dose: 1 patch Furosemide (Lasix Injection -) 20 mg IVPB DAILY [facility] Last Admin: 08/29/16 09:10 Dose: 20 mg Fat Emulsion Intravenous (Intralipid -) 250 mls @ 20.833 mls/hr IV DAILY@2200 [facility] Last Admin: 08/28/16 21:00 Dose: 20.833 mls/hr Famotidine/Sodium Chloride (Pepcid 20 Mg Premixed Ivpb -) 50 mls @ 100 mls/hr IVPB BID [facility] Last Admin: 08/29/16 09:10 Dose: 100 mls/hr Fluconazole (Diflucan 200 Mg/D5w Premixed Ivpb -) 100 mls @ 100 mls/hr IVPB DAILY [facility] Last Admin: 08/29/16 09:11 Dose: 100 mls/hr Magnesium Sulfate 4 gm/Insulin Human Regular 20 units / Thiamine HCl 100 mg/ Sodium Chloride 60 meq/ Potassium Chloride 10 meq/ Multivitamins /Minerals 10 ml / Potassium Phosphate 40 mm/ Folic Acid 1 mg/ Sterile Water/ Amino Acids / Dextrose 1,500 mls @ 62.5 mls/hr IVPB DAILY@1600 [facility] Stop: 08/29/16 15:59 Last Admin: 08/28/16 17:42 Dose: 62.5 mls/hr Piperacillin Sod/Tazobactam Sod (Zosyn 4.5gm Ivpb (Pre-Docked)) 100 mls @ 200 mls/hr IVPB Q6H-IV [facility] PRN Reason: Protocol Last Admin: 08/29/16 14:17 Dose: 200 mls/hr Magnesium Sulfate 4 gm/Insulin Human Regular 20 units / Thiamine HCl 100 mg/ Sodium Chloride 60 meq/ Potassium Chloride 10 meq/ Multivitamins /Minerals 10 ml / Potassium Phosphate 40 mm/ Folic Acid 1 mg/ Chromium/Copper/Manganese/Seleni/ Zn 1 ml/ Sterile Water/Amino Acids/ Dextrose 1,500 mls @ 62.5 mls/hr IVPB DAILY @1600 [facility] Insulin Aspart (Novolog Vial Sliding Scale -) 1 vial SQ ACHS [facility] PRN Reason: Protocol Last Admin: 08/29/16 13:03 Dose: 2 units Insulin Detemir (Levemir Vial) 15 units SQ HS [facility] Last Admin: 08/28/16 21:00 Dose: 15 units Miscellaneous (Duragesic Patch Waste) 1 each TD PRN PRN PRN Reason: PAIN Last Admin: 08/29/16 14:22 Dose: 1 each Morphine Sulfate (Morphine Injection -) 2 mg IVPUSH Q4H PRN PRN Reason: PAIN Ofloxacin (Ocuflox 0.3% Eye Drops -) 1 drop OD Q4HWA [facility] Last Admin: 08/29/16 14:18 Dose: 1 drop Prednisolone Acetate (Pred Forte 1% -) 1 drop OD BID [facility] Last Admin: 08/29/16 09:11 Dose: 1 drop - Objective Vital Signs: Vital Signs Temperature 100.9 F H 08/29/16 15:32 Pulse Rate 100 H 08/29/16 15:32 Respiratory Rate 26 H 08/29/16 15:32 Blood Pressure 136/81 08/29/16 15:32 O2 Sat by Pulse Oximetry (%) 96 08/27/16 22:00 Constitutional: Yes: Calm, Thin, Other Eyes: Yes: WNL HENT: Yes: WNL Neck: Yes: Supple (trach) Cardiovascular: Yes: Regular Rate and Rhythm, S1, S2 Respiratory: Yes: Rhonchi (few scattered rhonchi) Gastrointestinal: Yes: Normal Bowel Sounds, Soft Extremities: Yes: Other (gangrene both feet,and hands) Edema: Yes Labs: CBC, BMP 08/29/16 06:15 08/29/16 06:15 INR, PTT INR 1.31 (0.82-1.09) H 08/28/16 10:30 Fibrinogen > 700.0 mg/dL (238-498) H 07/31/16 05:40 Problem List - Problems (1) ZAHIRA (acute kidney injury) Code(s): N17.9 - ACUTE KIDNEY FAILURE, UNSPECIFIED (2) Acute metabolic encephalopathy Code(s): G93.41 - METABOLIC ENCEPHALOPATHY (3) Ischemia of extremity Code(s): I99.8 - OTHER DISORDER OF CIRCULATORY SYSTEM (4) Metabolic acidemia Code(s): E87.2 - ACIDOSIS (5) Perforated abdominal viscus Code(s): JEP6435 - (6) Sepsis Code(s): A41.9 - SEPSIS, UNSPECIFIED ORGANISM (7) Acute respiratory failure Code(s): J96.00 - ACUTE RESPIRATORY FAILURE, UNSP W HYPOXIA OR HYPERCAPNIA Assessment/Plan A/P Perforated Duodenal Ulcer Peritonitis s/p ex-lap/omental patch repair 07/16 Enterocutaneous Fistula Acute Respiratory Failure S/P Septic Shock Lactic Acidosis resolved Leukopenia/Thrombocytopenia resolved DM DVT Gangrene extremities - inhaled bronchodilators - antibiotics per ID - anticoagulation - TPN per renal - vent support ac mode - DVT/GI prophylaxis - prognosis is poor, continue discussions regarding advanced directives and goals of care - recommend palliative due to failure to wean, anticipated amputations, poor quality of life DR OSEI
[2016-08-29] MEDS: INSULIN REGULAR IVPB SCH (16:45)
[2016-08-29] MEDS: [UNRECOGNIZED DRUG - OTHER] IVPB SCH (16:45)
[2016-08-29] MEDS: MAGNESIUM SULFATE IVPB SCH (16:45)
[2016-08-29] MEDS: THIAMINE HCL IVPB SCH (16:45)
--- NOTE | 2016-08-29 18:13 | PN ---
Progress Note, Physician Chief Complaint: Remained at her base line yesterday subcapsular hepatic abscess drained and IV access changed, , low grade fever , opens eye to verbal command, on Vent Saturating well. FS are poorly controlled History of Present Illness: 65-year-old F H/O hypertension, hypercholesterolemia, T2DM, ETOH abuse, was presented to ED with abd pain and weight loss underwent exploratory laprotomy for perforated duodenal ulcer on 07/21/16 developed hypotention and sepsis intubate now on trach, colostomy and TPN.on Vent and IV abxfor Pseudomonas., abdominal wound still pus discharge with. FS are better controlled underwent G Tube placement by IR.. - Current Medication List Current Medications: Active Medications Acetaminophen (Ofirmev Injection -) 1,000 mg IVPB Q6H PRN PRN Reason: FEVER Last Admin: 08/29/16 16:45 Dose: 1,000 mg Chlorhexidine Gluconate (Peridex -) 15 ml MM BID [facility] Last Admin: 08/29/16 09:12 Dose: 15 ml Dextrose (D50w (Vial) -) 50 ml IVPUSH Q15M PRN PRN Reason: BLOOD SUGAR < 60 Enoxaparin Sodium (Lovenox -) 40 mg SQ BID [facility] Last Admin: 08/29/16 09:26 Dose: Not Given Fentanyl (Duragesic 25mcg Patch -) 1 patch TD Q72H [facility] Last Admin: 08/29/16 14:18 Dose: 1 patch Furosemide (Lasix Injection -) 20 mg IVPB DAILY [facility] Last Admin: 08/29/16 09:10 Dose: 20 mg Fat Emulsion Intravenous (Intralipid -) 250 mls @ 20.833 mls/hr IV DAILY@2200 [facility] Last Admin: 08/28/16 21:00 Dose: 20.833 mls/hr Famotidine/Sodium Chloride (Pepcid 20 Mg Premixed Ivpb -) 50 mls @ 100 mls/hr IVPB BID [facility] Last Admin: 08/29/16 09:10 Dose: 100 mls/hr Fluconazole (Diflucan 200 Mg/D5w Premixed Ivpb -) 100 mls @ 100 mls/hr IVPB DAILY [facility] Last Admin: 08/29/16 09:11 Dose: 100 mls/hr Piperacillin Sod/Tazobactam Sod (Zosyn 4.5gm Ivpb (Pre-Docked)) 100 mls @ 200 mls/hr IVPB Q6H-IV [facility] PRN Reason: Protocol Last Admin: 08/29/16 14:17 Dose: 200 mls/hr Magnesium Sulfate 4 gm/Insulin Human Regular 20 units / Thiamine HCl 100 mg/ Sodium Chloride 60 meq/ Potassium Chloride 10 meq/ Multivitamins /Minerals 10 ml / Potassium Phosphate 40 mm/ Folic Acid 1 mg/ Chromium/Copper/Manganese/Seleni/ Zn 1 ml/ Sterile Water/Amino Acids/ Dextrose 1,500 mls @ 62.5 mls/hr IVPB DAILY @1600 [facility] Last Admin: 08/29/16 16:45 Dose: 62.5 mls/hr Insulin Aspart (Novolog Vial Sliding Scale -) 1 vial SQ ACHS [facility] PRN Reason: Protocol Last Admin: 08/29/16 16:46 Dose: 2 units Insulin Detemir (Levemir Vial) 15 units SQ HS [facility] Last Admin: 08/28/16 21:00 Dose: 15 units Miscellaneous (Duragesic Patch Waste) 1 each TD PRN PRN PRN Reason: PAIN Last Admin: 08/29/16 14:22 Dose: 1 each Morphine Sulfate (Morphine Injection -) 2 mg IVPUSH Q4H PRN PRN Reason: PAIN Ofloxacin (Ocuflox 0.3% Eye Drops -) 1 drop OD Q4HWA [facility] Last Admin: 08/29/16 14:18 Dose: 1 drop Prednisolone Acetate (Pred Forte 1% -) 1 drop OD BID [facility] Last Admin: 08/29/16 09:11 Dose: 1 drop - Objective Vital Signs: Vital Signs Temperature 100.9 F H 08/29/16 15:32 Pulse Rate 100 H 08/29/16 15:32 Respiratory Rate 26 H 08/29/16 15:32 Blood Pressure 136/81 08/29/16 15:32 O2 Sat by Pulse Oximetry (%) 96 08/27/16 22:00 P Exam Patient remained altered minimally responsive, on Vent HEENT: Trach at the place, need intermittent Vent support, mm most, anemia NECK; Rt Subclavian at place, due for change, no JVD CHEST: Good AE minimal crepts ABD; S/P PEG tube, minimal discharge from wouynd, colostomy at place BS + EXT; extensive edema, skin peeling and gangrene of distal extremities [employer]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 Derm; gradually healing extensive skin peeling and gangrene of fingers and toes , Labs: CBC, BMP 08/29/16 06:15 08/29/16 06:15 INR, PTT INR 1.31 (0.82-1.09) H 08/28/16 10:30 Fibrinogen > 700.0 mg/dL (238-498) H 07/31/16 05:40 Problem List - Problems (1) Perforated abdominal viscus Assessment/Plan: Patient present with Rt UQ pain and with free air, Duodenal ulcer perforation s /p surgery. now fistula formation draining exudates.fistula still has discharge evaluate by surgery. and GI consult, patient has colostomy bag at place, abdominal wound discharging pus. underwent ID Guided abscess drainage. Code(s): [id number] - (2) Acute metabolic encephalopathy Assessment/Plan: Secondary to hypoperfusion due to septic shock, at present no significant improvement , most likely hypoxic encephalopathy. Code(s): G93.41 - METABOLIC ENCEPHALOPATHY (3) Ischemia of extremity Assessment/Plan: Ischemia off all extremities due to prolonged vasopressor use, patient needed pressure to maintain BP, now off pressors wound care healing slowly. Code(s): I99.8 - OTHER DISORDER OF CIRCULATORY SYSTEM (4) Sepsis Assessment/Plan: Due to perforated gastric now off pressors, on I V fluconazole and Zosyn F/U cultures.Prognosis is guarded. TWBC normal. Code(s): A41.9 - SEPSIS, UNSPECIFIED ORGANISM (5) Severe malnutrition Assessment/Plan: On TPN and Tube feeding tolerating well. S/P PEG tube good to start feeding after 24 hrs as per IR instructions. Code(s): E43 - UNSPECIFIED SEVERE PROTEIN-CALORIE MALNUTRITION (6) Hepatic abscess Assessment/Plan: SUB capsular hepatic abscess drainged Code(s): K75.0 - ABSCESS OF LIVER (7) Diabetes mellitus Assessment/Plan: Better controlled add basal insulin Levimir 15 unit daily. Code(s): E11.9 - TYPE 2 DIABETES MELLITUS WITHOUT COMPLICATIONS Qualifiers: Diabetes mellitus type: type 2
[2016-08-29] MEDS: FAT EMULSIONS 250 ML IV SCH (22:25)
[2016-08-29] MEDS: INSULIN DETEMIR 100 UNITS/ML MDV SQ SCH (22:25)
[2016-08-30] MEDS: PIPERACILLIN/TAZOB 4.5 GM 100 ML IVPB SCH ×4 (02:25→22:26)
[2016-08-30] MEDS: OFLOXACIN 0.3% OPHTHALMIC SOLUTION 5 ML BOTTLE OD SCH ×5 (05:47→22:29)
[2016-08-30] MEDS: INSULIN SLIDING SCALE (NOVOLOG) 1 VIAL SQ SCH ×4 (06:01→22:28)
[2016-08-30 08:41] LABS: BASOPHIL 0.9 % (0-2.0); EOSINOPHIL 2.3 % (0-4.5); MCH 29.3 pg (25.7-33.7); MCHC 33.3 g/dl (32.0-36.0); MEAN CELL VOLUME 88.1 fl (80-96); MEAN PLT VOLUME 8.1 fl (7.5-11.1); NEUTROPHILS 65.3 % (42.8-82.8); PLATELET COUNT 457 K/MM3 (134-434); WHITE BLOOD COUNT 9.6 K/mm3 (4.0-10.0)
[2016-08-30 08:54] LABS: ALBUMIN 1.6 g/dl (3.4-5.0); ANION GAP 9 (8-16); CALCIUM 9.3 mg/dL (8.5-10.1); CO2 29 mmol/L (21-32); CREATININE 0.4 mg/dL (0.55-1.02); GLUCOSE,RANDOM 228 mg/dL (74-106); MAGNESIUM 1.8 mg/dL (1.8-2.4); PHOSPHOROUS 3.7 mg/dL (2.5-4.9); SGOT/AST 19 U/L (15-37); SGPT/ALT 18 U/L (12-78)
[2016-08-30 08:56] LABS: ALK PHOS 178 U/L (45-117); BILIRUBIN,TOTAL 0.3 mg/dL (0.2-1.0); TOT PROT 7.2 g/dl (6.4-8.2)
--- NOTE | 2016-08-30 08:59 | PN ---
Progress Note (short form) - Note Progress Note: Renal Follow up for ZAHIRA/Metabolic acidosis Pt seen and examined at the bedside no overnight events G-tube feeds started this am Vital Signs Temperature 98.8 F 08/30/16 06:09 Pulse Rate 100 H 08/30/16 06:09 Respiratory Rate 18 08/30/16 06:55 Blood Pressure 136/78 08/30/16 06:09 O2 Sat by Pulse Oximetry (%) 96 08/27/16 22:00 Intake & Output 08/27/16 08/28/16 08/29/16 08/30/16 23:59 23:59 23:59 23:59 Intake Total 3020 2140 3314.2 400 Output Total 1670 1910 2160 510 Balance 1879 112 0973.2 -110 Weight 146 lb Gen: on Vent, NAD CVS: RRR, No M/R Lungs: Dec BS b/l lung andino Ext: 1+ edema in LE CBC, BMP 08/30/16 06:00 Current Medications Acetaminophen (Ofirmev Injection -) 1,000 mg IVPB Q6H PRN PRN Reason: FEVER Last Admin: 08/29/16 16:45 Dose: 1,000 mg Chlorhexidine Gluconate (Peridex -) 15 ml MM BID [facility] Last Admin: 08/29/16 22:29 Dose: 15 ml Dextrose (D50w (Vial) -) 50 ml IVPUSH Q15M PRN PRN Reason: BLOOD SUGAR < 60 Enoxaparin Sodium (Lovenox -) 40 mg SQ BID [facility] Last Admin: 08/29/16 22:26 Dose: 40 mg Fentanyl (Duragesic 25mcg Patch -) 1 patch TD Q72H [facility] Last Admin: 08/29/16 14:18 Dose: 1 patch Furosemide (Lasix Injection -) 20 mg IVPB DAILY [facility] Last Admin: 08/29/16 09:10 Dose: 20 mg Fat Emulsion Intravenous (Intralipid -) 250 mls @ 20.833 mls/hr IV DAILY@2200 [facility] Last Admin: 08/29/16 22:25 Dose: 20.833 mls/hr Famotidine/Sodium Chloride (Pepcid 20 Mg Premixed Ivpb -) 50 mls @ 100 mls/hr IVPB BID [facility] Last Admin: 08/29/16 22:27 Dose: 100 mls/hr Fluconazole (Diflucan 200 Mg/D5w Premixed Ivpb -) 100 mls @ 100 mls/hr IVPB DAILY [facility] Last Admin: 08/29/16 09:11 Dose: 100 mls/hr Piperacillin Sod/Tazobactam Sod (Zosyn 4.5gm Ivpb (Pre-Docked)) 100 mls @ 200 mls/hr IVPB Q6H-IV [facility] PRN Reason: Protocol Last Admin: 08/30/16 02:25 Dose: 200 mls/hr Magnesium Sulfate 4 gm/Insulin Human Regular 20 units / Thiamine HCl 100 mg/ Sodium Chloride 60 meq/ Potassium Chloride 10 meq/ Multivitamins /Minerals 10 ml / Potassium Phosphate 40 mm/ Folic Acid 1 mg/ Chromium/Copper/Manganese/Seleni/ Zn 1 ml/ Sterile Water/Amino Acids/ Dextrose 1,500 mls @ 62.5 mls/hr IVPB DAILY @1600 [facility] Last Admin: 08/29/16 16:45 Dose: 62.5 mls/hr Insulin Aspart (Novolog Vial Sliding Scale -) 1 vial SQ ACHS [facility] PRN Reason: Protocol Last Admin: 08/30/16 06:01 Dose: 4 units Insulin Detemir (Levemir Vial) 15 units SQ HS [facility] Last Admin: 08/29/16 22:25 Dose: 15 units Miscellaneous (Duragesic Patch Waste) 1 each TD PRN PRN PRN Reason: PAIN Last Admin: 08/29/16 14:22 Dose: 1 each Morphine Sulfate (Morphine Injection -) 2 mg IVPUSH Q4H PRN PRN Reason: PAIN Ofloxacin (Ocuflox 0.3% Eye Drops -) 1 drop OD Q4HWA [facility] Last Admin: 08/30/16 05:47 Dose: 1 drop Prednisolone Acetate (Pred Forte 1% -) 1 drop OD BID [facility] Last Admin: 08/29/16 22:28 Dose: 1 drop A/P 65 year old woman with PMhx of hypertension, hypercholesterolemia, diabetes mellitus who presented with Abd pain and found to have perforated Abd viscus s/ p emergent Sx now with Septic Shock, ZAHIRA and Metabolic Acidosis. #Sepsis/Perforated Abd Viscus/Abscess Contnue Abx supportive care vent support s/p IR drainage #TPN/Electrolyte abnormalities will stop TPN today as tube feeds started free water with tube feeds as well trend electrolytes #Edema from 3rd spacing continue Lasix can transition to PO lasix via G-tube Cyril Tubbs DO
[2016-08-30] MEDS: ENOXAPARIN NA (PORCINE) 40 MG/0.4 ML DISP.SYRIN SQ SCH ×2 (09:20→22:27)
[2016-08-30] MEDS: prednisoLONE ACETATE 1% OPHTH SUSP 5 ML BOTTLE OD SCH ×2 (09:22→22:30)
[2016-08-30] MEDS: CHLORHEXIDINE GLUCONATE 0.12% 15ML CUP MM SCH ×2 (09:22→22:29)
[2016-08-30] MEDS: FAMOTIDINE 20 MG/50 ML IVPB 50 ML IVPB SCH ×2 (10:21→22:29)
[2016-08-30] MEDS: FLUCONAZOLE 200 MG/D5W 100 ML IVPB SCH (11:30)
--- NOTE | 2016-08-30 12:49 | PN ---
Progress Note, Physician Chief Complaint: Remained at her base line yesterday subcapsular hepatic abscess drained and IV access changed, , low grade fever , opens eye to verbal command, on Vent Saturating well. FS are poorly conttrolled History of Present Illness: 65-year-old F H/O hypertension, hypercholesterolemia, T2DM, ETOH abuse, was presented to ED with abd pain and weight loss underwent exploratory laprotomy for perforated duodenal ulcer on 07/21/16 developed hypotention and sepsis intubate now on trach, colostomy and TPN.on Vent and IV abxfor Pseudomonas., abdominal wound still pus discharge with. FS are better controlled underwent G Tube placement by IR.dean will start feeding.. - Current Medication List Current Medications: Active Medications Acetaminophen (Ofirmev Injection -) 1,000 mg IVPB Q6H PRN PRN Reason: FEVER Last Admin: 08/29/16 16:45 Dose: 1,000 mg Chlorhexidine Gluconate (Peridex -) 15 ml MM BID [facility] Last Admin: 08/30/16 09:22 Dose: 15 ml Dextrose (D50w (Vial) -) 50 ml IVPUSH Q15M PRN PRN Reason: BLOOD SUGAR < 60 Enoxaparin Sodium (Lovenox -) 40 mg SQ BID [facility] Last Admin: 08/30/16 09:20 Dose: 40 mg Fentanyl (Duragesic 25mcg Patch -) 1 patch TD Q72H [facility] Last Admin: 08/29/16 14:18 Dose: 1 patch Furosemide (Lasix -) 20 mg GT DAILY [facility] Famotidine/Sodium Chloride (Pepcid 20 Mg Premixed Ivpb -) 50 mls @ 100 mls/hr IVPB BID [facility] Last Admin: 08/30/16 10:21 Dose: 100 mls/hr Fluconazole (Diflucan 200 Mg/D5w Premixed Ivpb -) 100 mls @ 100 mls/hr IVPB DAILY [facility] Last Admin: 08/30/16 11:30 Dose: 100 mls/hr Piperacillin Sod/Tazobactam Sod (Zosyn 4.5gm Ivpb (Pre-Docked)) 100 mls @ 200 mls/hr IVPB Q6H-IV [facility] PRN Reason: Protocol Last Admin: 08/30/16 09:20 Dose: 200 mls/hr Magnesium Sulfate 4 gm/Insulin Human Regular 20 units / Thiamine HCl 100 mg/ Sodium Chloride 60 meq/ Potassium Chloride 10 meq/ Multivitamins /Minerals 10 ml / Potassium Phosphate 40 mm/ Folic Acid 1 mg/ Chromium/Copper/Manganese/Seleni/ Zn 1 ml/ Sterile Water/Amino Acids/ Dextrose 1,500 mls @ 62.5 mls/hr IVPB DAILY @1600 [facility] Stop: 08/30/16 17:00 Last Admin: 08/29/16 16:45 Dose: 62.5 mls/hr Insulin Aspart (Novolog Vial Sliding Scale -) 1 vial SQ ACHS [facility] PRN Reason: Protocol Last Admin: 08/30/16 11:50 Dose: 4 units Insulin Detemir (Levemir Vial) 15 units SQ HS [facility] Last Admin: 08/29/16 22:25 Dose: 15 units Miscellaneous (Duragesic Patch Waste) 1 each TD PRN PRN PRN Reason: PAIN Last Admin: 08/29/16 14:22 Dose: 1 each Morphine Sulfate (Morphine Injection -) 2 mg IVPUSH Q4H PRN PRN Reason: PAIN Ofloxacin (Ocuflox 0.3% Eye Drops -) 1 drop OD Q4HWA [facility] Last Admin: 08/30/16 09:21 Dose: 1 drop Prednisolone Acetate (Pred Forte 1% -) 1 drop OD BID [facility] Last Admin: 08/30/16 09:22 Dose: 1 drop - Objective Vital Signs: Vital Signs Temperature 99.5 F 08/30/16 10:30 Pulse Rate 106 H 08/30/16 10:30 Respiratory Rate 23 08/30/16 10:42 Blood Pressure 129/94 08/30/16 10:30 O2 Sat by Pulse Oximetry (%) 96 08/27/16 22:00 P Exam Patient remained altered minimally responsive, on Vent HEENT: Trach at the place, need intermittent Vent support, mm most, anemia NECK; Rt Subclavian at place, due for change, no JVD CHEST: Good AE minimal crepts ABD; S/P PEG tube, minimal discharge from wound drainage, colostomy at place, stapes removed, BS + EXT; extensive edema, skin peeling and gangrene of distal extremities [employer]; 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 Derm; gradually healing extensive skin peeling and gangrene of fingers and toes , Labs: CBC, BMP 08/30/16 06:00 08/30/16 06:00 INR, PTT INR 1.31 (0.82-1.09) H 08/28/16 10:30 Fibrinogen > 700.0 mg/dL (238-498) H 07/31/16 05:40 Problem List - Problems (1) Perforated abdominal viscus Assessment/Plan: Patient present with Rt UQ pain and with free air, Duodenal ulcer perforation s /p surgery. now fistula formation draining exudates.fistula still has discharge evaluate by surgery. and GI consult, patient has colostomy bag at place, abdominal wound discharging pus. underwent ID Guided abscess drainage. Code(s): LXM3754 - (2) Acute metabolic encephalopathy Assessment/Plan: Secondary to hypoperfusion due to septic shock, at present no significant improvement , most likely hypoxic encephalopathy. Code(s): G93.41 - METABOLIC ENCEPHALOPATHY (3) Ischemia of extremity Assessment/Plan: Ischemia off all extremities due to prolonged vasopressor use, patient needed pressure to maintain BP, now off pressors wound care healing slowly. Code(s): I99.8 - OTHER DISORDER OF CIRCULATORY SYSTEM (4) Sepsis Assessment/Plan: Due to perforated gastric now off pressors, on I V fluconazole and Zosyn F/U cultures.Prognosis is guarded. TWBC normal. Code(s): A41.9 - SEPSIS, UNSPECIFIED ORGANISM (5) Severe malnutrition Assessment/Plan: On TPN and Tube feeding tolerating well. S/P PEG tube good to start feeding as per IR instructions. Code(s): E43 - UNSPECIFIED SEVERE PROTEIN-CALORIE MALNUTRITION (6) Hepatic abscess Assessment/Plan: SUB capsular hepatic abscess I and D drain at place. Code(s): K75.0 - ABSCESS OF LIVER (7) Diabetes mellitus Assessment/Plan: Better controlled add basal insulin Levimir 15 unit daily. will increse to 16 uunits Code(s): E11.9 - TYPE 2 DIABETES MELLITUS WITHOUT COMPLICATIONS Qualifiers: Diabetes mellitus type: type 2
--- NOTE | 2016-08-30 12:56 | PN ---
Progress Note (short form) - Note Progress Note: NAD on AC mode of vent. Noted enteral feeds started. Intake & Output 08/27/16 08/28/16 08/29/16 08/30/16 23:59 23:59 23:59 23:59 Intake Total 3020 2140 3314.2 400 Output Total 1670 1910 2160 510 Balance 7427 079 2118.2 -110 Weight 146 lb Last Vital Signs Temp Pulse Resp BP Pulse Ox 99.5 F 106 H 23 129/94 96 08/30/16 10:30 08/30/16 10:30 08/30/16 10:42 08/30/16 10:30 08/27/16 22:00 Active Medications Acetaminophen (Ofirmev Injection -) 1,000 mg IVPB Q6H PRN PRN Reason: FEVER Last Admin: 08/29/16 16:45 Dose: 1,000 mg Chlorhexidine Gluconate (Peridex -) 15 ml MM BID [facility] Last Admin: 08/30/16 09:22 Dose: 15 ml Dextrose (D50w (Vial) -) 50 ml IVPUSH Q15M PRN PRN Reason: BLOOD SUGAR < 60 Enoxaparin Sodium (Lovenox -) 40 mg SQ BID [facility] Last Admin: 08/30/16 09:20 Dose: 40 mg Fentanyl (Duragesic 25mcg Patch -) 1 patch TD Q72H [facility] Last Admin: 08/29/16 14:18 Dose: 1 patch Furosemide (Lasix -) 20 mg GT DAILY [facility] Famotidine/Sodium Chloride (Pepcid 20 Mg Premixed Ivpb -) 50 mls @ 100 mls/hr IVPB BID [facility] Last Admin: 08/30/16 10:21 Dose: 100 mls/hr Fluconazole (Diflucan 200 Mg/D5w Premixed Ivpb -) 100 mls @ 100 mls/hr IVPB DAILY [facility] Last Admin: 08/30/16 11:30 Dose: 100 mls/hr Piperacillin Sod/Tazobactam Sod (Zosyn 4.5gm Ivpb (Pre-Docked)) 100 mls @ 200 mls/hr IVPB Q6H-IV [facility] PRN Reason: Protocol Last Admin: 08/30/16 09:20 Dose: 200 mls/hr Magnesium Sulfate 4 gm/Insulin Human Regular 20 units / Thiamine HCl 100 mg/ Sodium Chloride 60 meq/ Potassium Chloride 10 meq/ Multivitamins /Minerals 10 ml / Potassium Phosphate 40 mm/ Folic Acid 1 mg/ Chromium/Copper/Manganese/Seleni/ Zn 1 ml/ Sterile Water/Amino Acids/ Dextrose 1,500 mls @ 62.5 mls/hr IVPB DAILY @1600 [facility] Stop: 08/30/16 17:00 Last Admin: 08/29/16 16:45 Dose: 62.5 mls/hr Insulin Aspart (Novolog Vial Sliding Scale -) 1 vial SQ ACHS [facility] PRN Reason: Protocol Last Admin: 08/30/16 11:50 Dose: 4 units Insulin Detemir (Levemir Vial) 18 units SQ HS [facility] Miscellaneous (Duragesic Patch Waste) 1 each TD PRN PRN PRN Reason: PAIN Last Admin: 08/29/16 14:22 Dose: 1 each Morphine Sulfate (Morphine Injection -) 2 mg IVPUSH Q4H PRN PRN Reason: PAIN Ofloxacin (Ocuflox 0.3% Eye Drops -) 1 drop OD Q4HWA [facility] Last Admin: 08/30/16 09:21 Dose: 1 drop Prednisolone Acetate (Pred Forte 1% -) 1 drop OD BID [facility] Last Admin: 08/30/16 09:22 Dose: 1 drop Gen: Trached, arousable Heart: RRR Lung: scattered rhonchi Abd: soft, dressings intact Ext: cold, hypoperfused, blackened Laboratory Results - last 24 hr 08/29/16 08/29/16 08/29/16 13:02 16:43 22:42 WBC RBC Hgb Hct MCV MCHC RDW Plt Count MPV Neutrophils % Lymphocytes % Monocytes % Eosinophils % Basophils % Sodium Potassium Chloride Carbon Dioxide Anion Gap BUN Creatinine Creat Clearance w eGFR POC Glucometer 174 200 223 Random Glucose Calcium Phosphorus Magnesium Total Bilirubin AST ALT Alkaline Phosphatase Total Protein Albumin 08/30/16 08/30/16 08/30/16 05:51 06:00 06:00 WBC 9.6 RBC 3.11 L Hgb 9.1 L Hct 27.4 L MCV 88.1 MCHC 33.3 RDW 15.0 Plt Count 457 H MPV 8.1 Neutrophils % 65.3 Lymphocytes % 21.8 D Monocytes % 9.7 Eosinophils % 2.3 Basophils % 0.9 Sodium 138 Potassium 4.1 Chloride 100 Carbon Dioxide 29 Anion Gap 9 BUN 20 H Creatinine 0.4 L D Creat Clearance w eGFR > 60 POC Glucometer 247 Random Glucose 228 H D Calcium 9.3 Phosphorus 3.7 Magnesium 1.8 Total Bilirubin 0.3 D AST 19 ALT 18 D Alkaline Phosphatase 178 H Total Protein 7.2 Albumin 1.6 L 08/30/16 11:35 WBC RBC Hgb Hct MCV MCHC RDW Plt Count MPV Neutrophils % Lymphocytes % Monocytes % Eosinophils % Basophils % Sodium Potassium Chloride Carbon Dioxide Anion Gap BUN Creatinine Creat Clearance w eGFR POC Glucometer 210 Random Glucose Calcium Phosphorus Magnesium Total Bilirubin AST ALT Alkaline Phosphatase Total Protein Albumin ASSESSMENT AND PLAN: Perforated Duodenal Ulcer Peritonitis s/p ex-lap/omental patch repair 07/16 Acute Respiratory Failure Septic Shock Acute Kidney Injury Lactic Acidosis Leukopenia/Thrombocytopenia likely from sepsis DM Encephalopathy -> etiology to be determined - Maintain current vent settings - ABX per ID - taper FiO2 to keep Spo2 >90% - DVT/GI prophylaxis - TPN to be stopped and enteral feeds to be maximized as tolerated Dr Dubon
[2016-08-30] MEDS: FUROSEMIDE 20 MG TABLET (FP) GT SCH (13:52)
--- NOTE | 2016-08-30 14:05 | PN ---
Progress Note, Physician History of Present Illness: no changes no new findings feeding being increased midline wound drainag cx send - Current Medication List Current Medications: Active Medications Acetaminophen (Ofirmev Injection -) 1,000 mg IVPB Q6H PRN PRN Reason: FEVER Last Admin: 08/29/16 16:45 Dose: 1,000 mg Chlorhexidine Gluconate (Peridex -) 15 ml MM BID [facility] Last Admin: 08/30/16 09:22 Dose: 15 ml Dextrose (D50w (Vial) -) 50 ml IVPUSH Q15M PRN PRN Reason: BLOOD SUGAR < 60 Enoxaparin Sodium (Lovenox -) 40 mg SQ BID [facility] Last Admin: 08/30/16 09:20 Dose: 40 mg Fentanyl (Duragesic 25mcg Patch -) 1 patch TD Q72H [facility] Last Admin: 08/29/16 14:18 Dose: 1 patch Furosemide (Lasix -) 20 mg GT DAILY [facility] Famotidine/Sodium Chloride (Pepcid 20 Mg Premixed Ivpb -) 50 mls @ 100 mls/hr IVPB BID [facility] Last Admin: 08/30/16 10:21 Dose: 100 mls/hr Fluconazole (Diflucan 200 Mg/D5w Premixed Ivpb -) 100 mls @ 100 mls/hr IVPB DAILY [facility] Last Admin: 08/30/16 11:30 Dose: 100 mls/hr Piperacillin Sod/Tazobactam Sod (Zosyn 4.5gm Ivpb (Pre-Docked)) 100 mls @ 200 mls/hr IVPB Q6H-IV [facility] PRN Reason: Protocol Last Admin: 08/30/16 09:20 Dose: 200 mls/hr Magnesium Sulfate 4 gm/Insulin Human Regular 20 units / Thiamine HCl 100 mg/ Sodium Chloride 60 meq/ Potassium Chloride 10 meq/ Multivitamins /Minerals 10 ml / Potassium Phosphate 40 mm/ Folic Acid 1 mg/ Chromium/Copper/Manganese/Seleni/ Zn 1 ml/ Sterile Water/Amino Acids/ Dextrose 1,500 mls @ 62.5 mls/hr IVPB DAILY @1600 [facility] Stop: 08/30/16 17:00 Last Admin: 08/29/16 16:45 Dose: 62.5 mls/hr Insulin Aspart (Novolog Vial Sliding Scale -) 1 vial SQ ACHS [facility] PRN Reason: Protocol Last Admin: 08/30/16 11:50 Dose: 4 units Insulin Detemir (Levemir Vial) 18 units SQ HS [facility] Miscellaneous (Duragesic Patch Waste) 1 each TD PRN PRN PRN Reason: PAIN Last Admin: 08/29/16 14:22 Dose: 1 each Morphine Sulfate (Morphine Injection -) 2 mg IVPUSH Q4H PRN PRN Reason: PAIN Ofloxacin (Ocuflox 0.3% Eye Drops -) 1 drop OD Q4HWA [facility] Last Admin: 08/30/16 09:21 Dose: 1 drop Prednisolone Acetate (Pred Forte 1% -) 1 drop OD BID [facility] Last Admin: 08/30/16 09:22 Dose: 1 drop - Objective Vital Signs: Vital Signs Temperature 99.5 F 08/30/16 10:30 Pulse Rate 106 H 08/30/16 10:30 Respiratory Rate 23 08/30/16 10:42 Blood Pressure 129/94 08/30/16 10:30 O2 Sat by Pulse Oximetry (%) 96 08/27/16 22:00 Constitutional: Yes: No Distress, Calm Cardiovascular: Yes: Regular Rate and Rhythm Respiratory: Yes: Mechanically Ventilated, Other Gastrointestinal: Yes: Normal Bowel Sounds, Soft Musculoskeletal: Yes: Other Extremities: Yes: Other Integumentary: Yes: Other (gangrene of the fingers and toes) Neurological: Yes: Alert Psychiatric: Yes: Alert Labs: CBC, BMP 08/30/16 06:00 08/30/16 06:00 INR, PTT INR 1.31 (0.82-1.09) H 08/28/16 10:30 Fibrinogen > 700.0 mg/dL (238-498) H 07/31/16 05:40 Assessment/Plan Problem List - Problems (1) Abdominal pain Code(s): R10.9 - UNSPECIFIED ABDOMINAL PAIN Qualifiers: Qualified Code(s): R10.33 - Periumbilical pain (2) Perforated abdominal viscus Code(s): [id number] - (3) Perforated viscus Code(s): R19.8 - OTH SYMPTOMS AND SIGNS INVOLVING THE DGSTV SYS AND ABDOMEN (4) Hypertension Code(s): I10 - ESSENTIAL (PRIMARY) HYPERTENSION Qualifiers: Qualified Code(s): I10 - Essential (primary) hypertension lactic acidosis fevers generalized swelling gangrene of the tip of the fingers noted pseudomonas pneumonia plan patient stable continue suctioning results of aspiration negative so far intermission coordinator plan needs to be made await for cx report
--- NOTE | 2016-08-30 14:41 | PN ---
Progress Note, Physician - Current Medication List Current Medications: Active Medications Acetaminophen (Ofirmev Injection -) 1,000 mg IVPB Q6H PRN PRN Reason: FEVER Last Admin: 08/29/16 16:45 Dose: 1,000 mg Chlorhexidine Gluconate (Peridex -) 15 ml MM BID [facility] Last Admin: 08/30/16 09:22 Dose: 15 ml Dextrose (D50w (Vial) -) 50 ml IVPUSH Q15M PRN PRN Reason: BLOOD SUGAR < 60 Enoxaparin Sodium (Lovenox -) 40 mg SQ BID [facility] Last Admin: 08/30/16 09:20 Dose: 40 mg Fentanyl (Duragesic 25mcg Patch -) 1 patch TD Q72H [facility] Last Admin: 08/29/16 14:18 Dose: 1 patch Furosemide (Lasix -) 20 mg GT DAILY [facility] Last Admin: 08/30/16 13:52 Dose: 20 mg Famotidine/Sodium Chloride (Pepcid 20 Mg Premixed Ivpb -) 50 mls @ 100 mls/hr IVPB BID [facility] Last Admin: 08/30/16 10:21 Dose: 100 mls/hr Fluconazole (Diflucan 200 Mg/D5w Premixed Ivpb -) 100 mls @ 100 mls/hr IVPB DAILY [facility] Last Admin: 08/30/16 11:30 Dose: 100 mls/hr Piperacillin Sod/Tazobactam Sod (Zosyn 4.5gm Ivpb (Pre-Docked)) 100 mls @ 200 mls/hr IVPB Q6H-IV [facility] PRN Reason: Protocol Last Admin: 08/30/16 09:20 Dose: 200 mls/hr Magnesium Sulfate 4 gm/Insulin Human Regular 20 units / Thiamine HCl 100 mg/ Sodium Chloride 60 meq/ Potassium Chloride 10 meq/ Multivitamins /Minerals 10 ml / Potassium Phosphate 40 mm/ Folic Acid 1 mg/ Chromium/Copper/Manganese/Seleni/ Zn 1 ml/ Sterile Water/Amino Acids/ Dextrose 1,500 mls @ 62.5 mls/hr IVPB DAILY @1600 [facility] Stop: 08/30/16 17:00 Last Admin: 08/29/16 16:45 Dose: 62.5 mls/hr Insulin Aspart (Novolog Vial Sliding Scale -) 1 vial SQ ACHS [facility] PRN Reason: Protocol Last Admin: 08/30/16 11:50 Dose: 4 units Insulin Detemir (Levemir Vial) 18 units SQ HS [facility] Miscellaneous (Duragesic Patch Waste) 1 each TD PRN PRN PRN Reason: PAIN Last Admin: 08/29/16 14:22 Dose: 1 each Morphine Sulfate (Morphine Injection -) 2 mg IVPUSH Q4H PRN PRN Reason: PAIN Ofloxacin (Ocuflox 0.3% Eye Drops -) 1 drop OD Q4HWA [facility] Last Admin: 08/30/16 13:53 Dose: 1 drop Prednisolone Acetate (Pred Forte 1% -) 1 drop OD BID [facility] Last Admin: 08/30/16 09:22 Dose: 1 drop - Objective Vital Signs: Vital Signs Temperature 99.5 F 08/30/16 10:30 Pulse Rate 106 H 08/30/16 10:30 Respiratory Rate 23 08/30/16 10:42 Blood Pressure 129/94 08/30/16 10:30 O2 Sat by Pulse Oximetry (%) 96 08/27/16 22:00 Labs: CBC, BMP 08/30/16 06:00 08/30/16 06:00 INR, PTT INR 1.31 (0.82-1.09) H 08/28/16 10:30 Fibrinogen > 700.0 mg/dL (238-498) H 07/31/16 05:40 Problem List - Problems (1) Abdominal pain Code(s): R10.9 - UNSPECIFIED ABDOMINAL PAIN Qualifiers: Abdominal location: periumbilical Qualified Code(s): R10.33 - Periumbilical pain (2) Perforated abdominal viscus Code(s): [id number] - (3) Perforated viscus Code(s): R19.8 - OTH SYMPTOMS AND SIGNS INVOLVING THE DGSTV SYS AND ABDOMEN (4) Hypertension Code(s): I10 - ESSENTIAL (PRIMARY) HYPERTENSION Qualifiers: Hypertension type: essential hypertension Qualified Code(s): I10 - Essential (primary) hypertension Assessment/Plan Surgery: patient has a G tube placed by radiology. Tolerating G tube feeding. Remove nasogastric tube. Albumin 1.5 grams. Abdominal wound , healing slowly. Gangrene of both hands and toes. 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 WBC is normal.
[2016-08-30] MEDS: morphine CARPU-JECT 2 MG/1 ML DISP.SYRIN IVPUSH PRN (15:57)
[2016-08-30] MEDS: INSULIN REGULAR IVPB SCH (16:00)
[2016-08-30] MEDS: [UNRECOGNIZED DRUG - OTHER] IVPB SCH (16:00)
[2016-08-30] MEDS: MAGNESIUM SULFATE IVPB SCH (16:00)
[2016-08-30] MEDS: THIAMINE HCL IVPB SCH (16:00)
[2016-08-30] MEDS: INSULIN DETEMIR 100 UNITS/ML MDV SQ SCH (22:27)
[2016-08-31] MEDS: morphine CARPU-JECT 2 MG/1 ML DISP.SYRIN IVPUSH PRN ×2 (01:02→13:46)
[2016-08-31] MEDS: PIPERACILLIN/TAZOB 4.5 GM 100 ML IVPB SCH ×4 (02:42→23:12)
[2016-08-31] MEDS: OFLOXACIN 0.3% OPHTHALMIC SOLUTION 5 ML BOTTLE OD SCH ×5 (06:40→23:13)
[2016-08-31] MEDS: INSULIN SLIDING SCALE (NOVOLOG) 1 VIAL SQ SCH ×4 (06:41→23:13)
[2016-08-31] MEDS ORDERED: INSULIN (NOVOLOG) ASPART 100 UNITS/ML 10ML VIAL ONE (06:59)
[2016-08-31] MEDS ORDERED: PT OWN MED DRAWER 7, Y5N ONE ×2 (07:40→22:25)
[2016-08-31 09:01] LABS: BASOPHIL 1.2 % (0-2.0); EOSINOPHIL 3.4 % (0-4.5); MCH 29.9 pg (25.7-33.7); MCHC 33.7 g/dl (32.0-36.0); MEAN CELL VOLUME 88.8 fl (80-96); NEUTROPHILS 53.6 % (42.8-82.8); PLATELET COUNT 441 K/MM3 (134-434); RDW 14.9 % (11.6-15.6); WHITE BLOOD COUNT 8.4 K/mm3 (4.0-10.0)
[2016-08-31 09:17] LABS: ALBUMIN 1.6 g/dl (3.4-5.0); ANION GAP 8 (8-16); CALCIUM 9.3 mg/dL (8.5-10.1); CO2 31 mmol/L (21-32); CREATININE 0.4 mg/dL (0.55-1.02); GLUCOSE,RANDOM 123 mg/dL (74-106); SGOT/AST 19 U/L (15-37); SGPT/ALT 17 U/L (12-78)
[2016-08-31] MEDS: FUROSEMIDE 20 MG TABLET (FP) GT SCH (09:17)
[2016-08-31] MEDS: ENOXAPARIN NA (PORCINE) 40 MG/0.4 ML DISP.SYRIN SQ SCH ×2 (09:17→23:12)
[2016-08-31] MEDS: prednisoLONE ACETATE 1% OPHTH SUSP 5 ML BOTTLE OD SCH (09:18)
[2016-08-31] MEDS: CHLORHEXIDINE GLUCONATE 0.12% 15ML CUP MM SCH ×2 (09:18→23:14)
[2016-08-31 09:20] LABS: ALK PHOS 197 U/L (45-117); BILIRUBIN,TOTAL 0.5 mg/dL (0.2-1.0); TOT PROT 6.9 g/dl (6.4-8.2)
[2016-08-31] MEDS: FAMOTIDINE 20 MG/50 ML IVPB 50 ML IVPB SCH (09:58)
[2016-08-31] MEDS: FLUCONAZOLE 200 MG/D5W 100 ML IVPB SCH (10:54)
--- NOTE | 2016-08-31 15:12 | PN ---
Progress Note (short form) - Note Progress Note: NAD on AC mode of vent, 40% FiO2. Appears to be tolerating enteral feeds. Intake & Output 08/28/16 08/29/16 08/30/16 08/31/16 23:59 23:59 23:59 23:59 Intake Total 2140 3314.2 1785 620 Output Total 1910 2160 1470 150 Balance 230 1154.2 315 470 Last Vital Signs Temp Pulse Resp BP Pulse Ox 99.2 F 95 H 20 114/69 96 08/31/16 13:16 08/31/16 13:16 08/31/16 14:37 08/31/16 13:16 08/27/16 22:00 Active Medications Acetaminophen (Ofirmev Injection -) 1,000 mg IVPB Q6H PRN PRN Reason: FEVER Last Admin: 08/29/16 16:45 Dose: 1,000 mg Chlorhexidine Gluconate (Peridex -) 15 ml MM BID [facility] Last Admin: 08/31/16 09:18 Dose: 15 ml Dextrose (D50w (Vial) -) 50 ml IVPUSH Q15M PRN PRN Reason: BLOOD SUGAR < 60 Enoxaparin Sodium (Lovenox -) 40 mg SQ BID [facility] Last Admin: 08/31/16 09:17 Dose: 40 mg Fentanyl (Duragesic 25mcg Patch -) 1 patch TD Q72H [facility] Last Admin: 08/29/16 14:18 Dose: 1 patch Furosemide (Lasix -) 20 mg GT DAILY [facility] Last Admin: 08/31/16 09:17 Dose: 20 mg Famotidine/Sodium Chloride (Pepcid 20 Mg Premixed Ivpb -) 50 mls @ 100 mls/hr IVPB BID [facility] Last Admin: 08/31/16 09:58 Dose: 100 mls/hr Fluconazole (Diflucan 200 Mg/D5w Premixed Ivpb -) 100 mls @ 100 mls/hr IVPB DAILY [facility] Last Admin: 08/31/16 10:54 Dose: 100 mls/hr Piperacillin Sod/Tazobactam Sod (Zosyn 4.5gm Ivpb (Pre-Docked)) 100 mls @ 200 mls/hr IVPB Q6H-IV [facility] PRN Reason: Protocol Last Admin: 08/31/16 14:08 Dose: 200 mls/hr Insulin Aspart (Novolog Vial Sliding Scale -) 1 vial SQ ACHS [facility] PRN Reason: Protocol Last Admin: 08/31/16 12:00 Dose: Not Given Insulin Detemir (Levemir Vial) 18 units SQ HS [facility] Last Admin: 08/30/16 22:27 Dose: 18 units Miscellaneous (Duragesic Patch Waste) 1 each TD PRN PRN PRN Reason: PAIN Last Admin: 08/29/16 14:22 Dose: 1 each Morphine Sulfate (Morphine Injection -) 2 mg IVPUSH Q4H PRN PRN Reason: PAIN Last Admin: 08/31/16 13:46 Dose: 2 mg Ofloxacin (Ocuflox 0.3% Eye Drops -) 1 drop OD Q4HWA [facility] Last Admin: 08/31/16 13:47 Dose: 1 drop Prednisolone Acetate (Pred Forte 1% -) 1 drop OD BID [facility] Last Admin: 08/31/16 09:18 Dose: 1 drop Gen: Trached, arousable Heart: RRR Lung: scattered rhonchi Abd: soft, dressings intact Ext: cold, hypoperfused, blackened Laboratory Results - last 24 hr 08/30/16 08/30/16 08/31/16 16:02 21:18 06:19 WBC RBC Hgb Hct MCV MCHC RDW Plt Count MPV Neutrophils % Lymphocytes % Monocytes % Eosinophils % Basophils % Sodium Potassium Chloride Carbon Dioxide Anion Gap BUN Creatinine Creat Clearance w eGFR POC Glucometer 113 194 137 Random Glucose Calcium Total Bilirubin AST ALT Alkaline Phosphatase Total Protein Albumin 08/31/16 08/31/16 08/31/16 08:00 08:00 12:04 WBC 8.4 RBC 2.85 L Hgb 8.5 L Hct 25.3 L MCV 88.8 MCHC 33.7 RDW 14.9 Plt Count 441 H MPV 8.0 Neutrophils % 53.6 Lymphocytes % 29.7 D Monocytes % 12.1 H Eosinophils % 3.4 Basophils % 1.2 Sodium 140 Potassium 4.2 Chloride 101 Carbon Dioxide 31 Anion Gap 8 BUN 17 Creatinine 0.4 L Creat Clearance w eGFR > 60 POC Glucometer 136 Random Glucose 123 H D Calcium 9.3 Total Bilirubin 0.5 D AST 19 ALT 17 Alkaline Phosphatase 197 H Total Protein 6.9 Albumin 1.6 L ASSESSMENT AND PLAN: Perforated Duodenal Ulcer Peritonitis s/p ex-lap/omental patch repair 07/16 Acute Respiratory Failure Septic Shock Acute Kidney Injury Lactic Acidosis Leukopenia/Thrombocytopenia likely from sepsis DM Encephalopathy -> etiology to be determined - Maintain current vent settings - ABX per ID - taper FiO2 to keep Spo2 >90% - DVT/GI prophylaxis - Enteral feeds to be maximized as tolerated Dr Dubon
--- NOTE | 2016-08-31 17:33 | PN ---
Progress Note, Physician Chief Complaint: Remained at her base line , , low grade fever , opens eye to verbal command, on Vent Saturating well. FS are better controlled, no extremities movement. History of Present Illness: 65-year-old F H/O hypertension, hypercholesterolemia, T2DM, ETOH abuse, was presented to ED with abd pain and weight loss underwent exploratory laprotomy for perforated duodenal ulcer on 07/21/16 developed hypotention and sepsis intubate now on trach, colostomy and TPN.on Vent and IV abxfor [facility]., abdominal wound still pus discharge with. FS are better controlled underwent G Tube placement tolerating feeding.. - Current Medication List Current Medications: Active Medications Acetaminophen (Ofirmev Injection -) 1,000 mg IVPB Q6H PRN PRN Reason: FEVER Last Admin: 08/29/16 16:45 Dose: 1,000 mg Chlorhexidine Gluconate (Peridex -) 15 ml MM BID [facility] Last Admin: 08/31/16 09:18 Dose: 15 ml Dextrose (D50w (Vial) -) 50 ml IVPUSH Q15M PRN PRN Reason: BLOOD SUGAR < 60 Enoxaparin Sodium (Lovenox -) 40 mg SQ BID [facility] Last Admin: 08/31/16 09:17 Dose: 40 mg Fentanyl (Duragesic 25mcg Patch -) 1 patch TD Q72H [facility] Last Admin: 08/29/16 14:18 Dose: 1 patch Furosemide (Lasix -) 20 mg GT DAILY [facility] Last Admin: 08/31/16 09:17 Dose: 20 mg Famotidine/Sodium Chloride (Pepcid 20 Mg Premixed Ivpb -) 50 mls @ 100 mls/hr IVPB BID [facility] Last Admin: 08/31/16 09:58 Dose: 100 mls/hr Fluconazole (Diflucan 200 Mg/D5w Premixed Ivpb -) 100 mls @ 100 mls/hr IVPB DAILY [facility] Last Admin: 08/31/16 10:54 Dose: 100 mls/hr Piperacillin Sod/Tazobactam Sod (Zosyn 4.5gm Ivpb (Pre-Docked)) 100 mls @ 200 mls/hr IVPB Q6H-IV [facility] PRN Reason: Protocol Last Admin: 08/31/16 14:08 Dose: 200 mls/hr Insulin Aspart (Novolog Vial Sliding Scale -) 1 vial SQ ACHS [facility] PRN Reason: Protocol Last Admin: 08/31/16 16:24 Dose: Not Given Insulin Detemir (Levemir Vial) 18 units SQ HS [facility] Last Admin: 08/30/16 22:27 Dose: 18 units Miscellaneous (Duragesic Patch Waste) 1 each TD PRN PRN PRN Reason: PAIN Last Admin: 08/29/16 14:22 Dose: 1 each Morphine Sulfate (Morphine Injection -) 2 mg IVPUSH Q4H PRN PRN Reason: PAIN Last Admin: 08/31/16 13:46 Dose: 2 mg Ofloxacin (Ocuflox 0.3% Eye Drops -) 1 drop OD Q4HWA [facility] Last Admin: 08/31/16 13:47 Dose: 1 drop Prednisolone Acetate (Pred Forte 1% -) 1 drop OD BID [facility] Last Admin: 08/31/16 09:18 Dose: 1 drop - Objective Vital Signs: Vital Signs Temperature 99.2 F 08/31/16 13:16 Pulse Rate 95 H 08/31/16 13:16 Respiratory Rate 20 08/31/16 14:37 Blood Pressure 114/69 08/31/16 13:16 O2 Sat by Pulse Oximetry (%) 96 08/27/16 22:00 P Exam Patient remained altered minimally responsive, on Vent HEENT: Trach at the place, need intermittent Vent support, mm most, anemia NECK; Rt Subclavian at place, due for change, no JVD CHEST: Good AE minimal crepts ABD; S/P PEG tube, minimal discharge from wound drainage, colostomy at place, stapes removed, BS + EXT; extensive edema, skin peeling and gangrene of distal extremities 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 Derm; gradually healing extensive skin peeling and gangrene of fingers and toes , Labs: CBC, BMP 08/31/16 08:00 08/31/16 08:00 INR, PTT INR 1.31 (0.82-1.09) H 08/28/16 10:30 Fibrinogen > 700.0 mg/dL (238-498) H 07/31/16 05:40 Problem List - Problems (1) Perforated abdominal viscus Assessment/Plan: Patient was presented with Rt UQ pain and with free air, Duodenal ulcer perforation s/p surgery. now fistula formation draining exudates.fistula still has discharge evaluate by surgery. and GI consult, patient has colostomy bag at place, abdominal wound discharging on IV abx.. Code(s): [id number] - (2) Acute metabolic encephalopathy Assessment/Plan: Secondary to hypoperfusion due to septic shock, at present no significant improvement , most likely hypoxic encephalopathy. Code(s): G93.41 - METABOLIC ENCEPHALOPATHY (3) Ischemia of extremity Assessment/Plan: Ischemia off all extremities due to prolonged vasopressor use, patient needed pressure to maintain BP, now off pressors wound care healing slowly. Code(s): I99.8 - OTHER DISORDER OF CIRCULATORY SYSTEM (4) Sepsis Assessment/Plan: Due to perforated gastric now off pressors, on I V fluconazole and Zosyn F/U cultures.Prognosis is guarded. TWBC normal. Code(s): A41.9 - SEPSIS, UNSPECIFIED ORGANISM (5) Severe malnutrition Assessment/Plan: S/P PG tolerating feeding remove NG tube, Nutrition consult.. Code(s): E43 - UNSPECIFIED SEVERE PROTEIN-CALORIE MALNUTRITION (6) Hepatic abscess Assessment/Plan: SUB capsular hepatic abscess I and D drain at place. Code(s): K75.0 - ABSCESS OF LIVER (7) Diabetes mellitus Assessment/Plan: Better controlled add basal insulin Levimir 18 units FS are better controlled. Code(s): E11.9 - TYPE 2 DIABETES MELLITUS WITHOUT COMPLICATIONS Qualifiers: Diabetes mellitus type: type 2
[2016-08-31] MEDS: INSULIN DETEMIR 100 UNITS/ML MDV SQ SCH (23:14)
[2016-09-01] MEDS: FAMOTIDINE 20 MG/50 ML IVPB 50 ML IVPB SCH ×3 (00:48→23:51)
[2016-09-01] MEDS: prednisoLONE ACETATE 1% OPHTH SUSP 5 ML BOTTLE OD SCH ×2 (00:49→09:30)
[2016-09-01] MEDS: PIPERACILLIN/TAZOB 4.5 GM 100 ML IVPB SCH ×4 (03:20→22:00)
[2016-09-01] MEDS: OFLOXACIN 0.3% OPHTHALMIC SOLUTION 5 ML BOTTLE OD SCH ×5 (06:43→23:52)
[2016-09-01] MEDS: INSULIN SLIDING SCALE (NOVOLOG) 1 VIAL SQ SCH ×3 (06:52→18:44)
[2016-09-01 08:16] LABS: EOSINOPHIL 3.4 % (0-4.5); MCH 29.8 pg (25.7-33.7); MCHC 33.8 g/dl (32.0-36.0); MEAN CELL VOLUME 88.2 fl (80-96); MEAN PLT VOLUME 7.8 fl (7.5-11.1); NEUTROPHILS 56.3 % (42.8-82.8); PLATELET COUNT 427 K/MM3 (134-434); RDW 14.9 % (11.6-15.6); WHITE BLOOD COUNT 9.8 K/mm3 (4.0-10.0)
[2016-09-01 08:22] LABS: ALBUMIN 1.6 g/dl (3.4-5.0); ANION GAP 8 (8-16); CALCIUM 9.6 mg/dL (8.5-10.1); CO2 31 mmol/L (21-32); CREATININE 0.4 mg/dL (0.55-1.02); GLUCOSE,RANDOM 103 mg/dL (74-106); SGOT/AST 21 U/L (15-37); SGPT/ALT 19 U/L (12-78)
[2016-09-01 08:24] LABS: ALK PHOS 194 U/L (45-117); BILIRUBIN,TOTAL 0.4 mg/dL (0.2-1.0); TOT PROT 6.8 g/dl (6.4-8.2)
--- NOTE | 2016-09-01 08:43 | PN ---
Progress Note, Physician Chief Complaint: Noted to have fever on and off. Blood and urine cultures were done yesterday History of Present Illness: On respirator.Noted to have diarrhea on tube feeding - Current Medication List Current Medications: Active Medications Acetaminophen (Ofirmev Injection -) 1,000 mg IVPB Q6H PRN PRN Reason: FEVER Last Admin: 08/29/16 16:45 Dose: 1,000 mg Chlorhexidine Gluconate (Peridex -) 15 ml MM BID [facility] Last Admin: 08/31/16 23:14 Dose: 15 ml Dextrose (D50w (Vial) -) 50 ml IVPUSH Q15M PRN PRN Reason: BLOOD SUGAR < 60 Enoxaparin Sodium (Lovenox -) 40 mg SQ BID [facility] Last Admin: 08/31/16 23:12 Dose: 40 mg Fentanyl (Duragesic 25mcg Patch -) 1 patch TD Q72H [facility] Last Admin: 08/29/16 14:18 Dose: 1 patch Furosemide (Lasix -) 20 mg GT DAILY [facility] Last Admin: 08/31/16 09:17 Dose: 20 mg Famotidine/Sodium Chloride (Pepcid 20 Mg Premixed Ivpb -) 50 mls @ 100 mls/hr IVPB BID [facility] Last Admin: 09/01/16 00:48 Dose: 100 mls/hr Fluconazole (Diflucan 200 Mg/D5w Premixed Ivpb -) 100 mls @ 100 mls/hr IVPB DAILY [facility] Last Admin: 08/31/16 10:54 Dose: 100 mls/hr Piperacillin Sod/Tazobactam Sod (Zosyn 4.5gm Ivpb (Pre-Docked)) 100 mls @ 200 mls/hr IVPB Q6H-IV [facility] PRN Reason: Protocol Last Admin: 09/01/16 03:20 Dose: 200 mls/hr Insulin Aspart (Novolog Vial Sliding Scale -) 1 vial SQ ACHS [facility] PRN Reason: Protocol Last Admin: 09/01/16 06:52 Dose: Not Given Insulin Detemir (Levemir Vial) 18 units SQ HS [facility] Last Admin: 08/31/16 23:14 Dose: 18 units Miscellaneous (Duragesic Patch Waste) 1 each TD PRN PRN PRN Reason: PAIN Last Admin: 08/29/16 14:22 Dose: 1 each Morphine Sulfate (Morphine Injection -) 2 mg IVPUSH Q4H PRN PRN Reason: PAIN Last Admin: 08/31/16 13:46 Dose: 2 mg Ofloxacin (Ocuflox 0.3% Eye Drops -) 1 drop OD Q4HWA [facility] Last Admin: 09/01/16 06:43 Dose: 1 drop Prednisolone Acetate (Pred Forte 1% -) 1 drop OD BID [facility] Last Admin: 09/01/16 00:49 Dose: 1 drop - Objective Vital Signs: Vital Signs Temperature 98.9 F 08/31/16 18:00 Pulse Rate 88 08/31/16 18:00 Respiratory Rate 16 09/01/16 06:41 Blood Pressure 121/64 08/31/16 18:00 O2 Sat by Pulse Oximetry (%) 96 08/27/16 22:00 Constitutional: Yes: Mild Distress Eyes: Yes: WNL HENT: Yes: WNL Neck: Yes: WNL Cardiovascular: Yes: WNL Respiratory: Yes: Mechanically Ventilated Gastrointestinal: Yes: Soft ...Rectal Exam: Yes: Deferred Genitourinary: Yes: WNL, Bacon Present Edema: No Neurological: Yes: Other (minimal response to verbal commands) Labs: INR, PTT INR 1.31 (0.82-1.09) H 08/28/16 10:30 Fibrinogen > 700.0 mg/dL (238-498) H 07/31/16 05:40 Assessment/Plan continue same trt
[2016-09-01] MEDS: CHLORHEXIDINE GLUCONATE 0.12% 15ML CUP MM SCH ×2 (09:30→23:53)
[2016-09-01] MEDS: morphine CARPU-JECT 2 MG/1 ML DISP.SYRIN IVPUSH PRN (10:05)
[2016-09-01] MEDS: FUROSEMIDE 20 MG TABLET (FP) GT SCH (11:16)
--- NOTE | 2016-09-01 12:34 | PN ---
Progress Note (short form) - Note Progress Note: PULMONARY CHART REVIEWED NO CHANGE IN OVERALL EXAM ALARMING HIGH PRESSURES AND INTERMITTENT LOW TIDAL VOLUMES MEDS/LABS/RADIOGRAPHS/MICRO/NOTES REVIEWED A/P Perforated Duodenal Ulcer Peritonitis s/p ex-lap/omental patch repair 07/16 Enterocutaneous Fistula Acute Respiratory Failure/trach/mvv Septic Shock Lactic Acidosis Leukopenia/Thrombocytopenia likely from sepsis DM DVT Gangrene - antibiotics per ID - taper Fio2 to keep Spo2 >90% - continue anticoagulation - nutrition - have adjusted vent settings - DVT/GI prophylaxis - ENT lulu STARR MD
[2016-09-01] MEDS: ENOXAPARIN NA (PORCINE) 40 MG/0.4 ML DISP.SYRIN SQ SCH ×2 (13:07→23:51)
[2016-09-01] MEDS: FLUCONAZOLE 200 MG/D5W 100 ML IVPB SCH (13:08)
--- NOTE | 2016-09-01 13:56 | PN ---
Progress Note, Physician History of Present Illness: patient still continues ot have off and on fevers also vent settings adjusted - Current Medication List Current Medications: Active Medications Acetaminophen (Ofirmev Injection -) 1,000 mg IVPB Q6H PRN PRN Reason: FEVER Last Admin: 08/29/16 16:45 Dose: 1,000 mg Albuterol Sulfate (Ventolin 0.083% Nebulizer Soln -) 1 amp NEB QIDR [facility] Chlorhexidine Gluconate (Peridex -) 15 ml MM BID [facility] Last Admin: 09/01/16 09:30 Dose: 15 ml Dextrose (D50w (Vial) -) 50 ml IVPUSH Q15M PRN PRN Reason: BLOOD SUGAR < 60 Enoxaparin Sodium (Lovenox -) 40 mg SQ BID [facility] Last Admin: 09/01/16 13:07 Dose: 40 mg Fentanyl (Duragesic 25mcg Patch -) 1 patch TD Q72H [facility] Last Admin: 08/29/16 14:18 Dose: 1 patch Furosemide (Lasix -) 20 mg GT DAILY [facility] Last Admin: 09/01/16 11:16 Dose: 20 mg Famotidine/Sodium Chloride (Pepcid 20 Mg Premixed Ivpb -) 50 mls @ 100 mls/hr IVPB BID [facility] Last Admin: 09/01/16 11:18 Dose: 100 mls/hr Fluconazole (Diflucan 200 Mg/D5w Premixed Ivpb -) 100 mls @ 100 mls/hr IVPB DAILY [facility] Last Admin: 09/01/16 13:08 Dose: 100 mls/hr Piperacillin Sod/Tazobactam Sod (Zosyn 4.5gm Ivpb (Pre-Docked)) 100 mls @ 200 mls/hr IVPB Q6H-IV [facility] PRN Reason: Protocol Last Admin: 09/01/16 09:58 Dose: 200 mls/hr Insulin Aspart (Novolog Vial Sliding Scale -) 1 vial SQ ACHS [facility] PRN Reason: Protocol Last Admin: 09/01/16 11:44 Dose: Not Given Insulin Detemir (Levemir Vial) 18 units SQ HS [facility] Last Admin: 08/31/16 23:14 Dose: 18 units Miscellaneous (Duragesic Patch Waste) 1 each TD PRN PRN PRN Reason: PAIN Last Admin: 08/29/16 14:22 Dose: 1 each Morphine Sulfate (Morphine Injection -) 2 mg IVPUSH Q4H PRN PRN Reason: PAIN Last Admin: 09/01/16 10:05 Dose: 2 mg Ofloxacin (Ocuflox 0.3% Eye Drops -) 1 drop OD Q4HWA [facility] Last Admin: 09/01/16 09:30 Dose: 1 drop Prednisolone Acetate (Pred Forte 1% -) 1 drop OD BID [facility] Last Admin: 09/01/16 09:30 Dose: 1 drop - Objective Vital Signs: Vital Signs Temperature 100.3 F H 09/01/16 10:00 Pulse Rate 96 H 09/01/16 10:00 Respiratory Rate 22 09/01/16 10:00 Blood Pressure 116/60 09/01/16 10:00 O2 Sat by Pulse Oximetry (%) 96 08/27/16 22:00 Constitutional: Yes: Calm Cardiovascular: Yes: Regular Rate and Rhythm Respiratory: Yes: Mechanically Ventilated, Rhonchi, Other Gastrointestinal: Yes: Normal Bowel Sounds, Other (feeding tube) Musculoskeletal: Yes: Other Extremities: Yes: Other (dry gangrene) Neurological: Yes: Alert, Other Labs: CBC, BMP 09/01/16 06:55 09/01/16 06:55 INR, PTT INR 1.31 (0.82-1.09) H 08/28/16 10:30 Fibrinogen > 700.0 mg/dL (238-498) H 07/31/16 05:40 Assessment/Plan Problem List - Problems (1) Abdominal pain Code(s): R10.9 - UNSPECIFIED ABDOMINAL PAIN Qualifiers: Qualified Code(s): R10.33 - Periumbilical pain (2) Perforated abdominal viscus Code(s): CLW6221 - (3) Perforated viscus Code(s): R19.8 - OTH SYMPTOMS AND SIGNS INVOLVING THE DGSTV SYS AND ABDOMEN (4) Hypertension Code(s): I10 - ESSENTIAL (PRIMARY) HYPERTENSION Qualifiers: Qualified Code(s): I10 - Essential (primary) hypertension lactic acidosis fevers generalized swelling gangrene of the tip of the fingers noted pseudomonas pneumonia patient still spiking cultures resend plan patient stable await for final results if still secretions then will re cx rest as per family
[2016-09-01] MEDS: FENTANYL PATCH WASTE TD PRN (14:55)
[2016-09-01] MEDS: fentaNYL 25mcg/hr PATCH.TD72 TD SCH (14:55)
[2016-09-01] MEDS: ALBUTEROL SO4 0.083% IH SOL 2.5 MG/3 ML VIAL.NEB. NEB SCH ×2 (18:45→23:44)
[2016-09-01] MEDS ORDERED: PT OWN MED DRAWER 7, Y5N ONE ×2 (19:43→21:54)
[2016-09-01] MEDS ORDERED: INSULIN (NOVOLOG) ASPART 100 UNITS/ML 10ML VIAL ONE (19:43)
--- NOTE | 2016-09-01 22:22 | PN ---
Progress Note, Physician Chief Complaint: The patient seen in her bed. Vent supported. Minimally responsive. Maintains good urine output- Dark. TPN infusing Minimally responsive. Afebrile. - Current Medication List Current Medications: Active Medications Acetaminophen (Ofirmev Injection -) 1,000 mg IVPB Q6H PRN PRN Reason: FEVER Last Admin: 08/29/16 16:45 Dose: 1,000 mg Albuterol Sulfate (Ventolin 0.083% Nebulizer Soln -) 1 amp NEB QIDR [facility] Last Admin: 09/01/16 18:45 Dose: 1 amp Chlorhexidine Gluconate (Peridex -) 15 ml MM BID [facility] Last Admin: 09/01/16 09:30 Dose: 15 ml Dextrose (D50w (Vial) -) 50 ml IVPUSH Q15M PRN PRN Reason: BLOOD SUGAR < 60 Enoxaparin Sodium (Lovenox -) 40 mg SQ BID [facility] Last Admin: 09/01/16 13:07 Dose: 40 mg Fentanyl (Duragesic 25mcg Patch -) 1 patch TD Q72H [facility] Last Admin: 09/01/16 14:55 Dose: 1 patch Furosemide (Lasix -) 20 mg GT DAILY [facility] Last Admin: 09/01/16 11:16 Dose: 20 mg Famotidine/Sodium Chloride (Pepcid 20 Mg Premixed Ivpb -) 50 mls @ 100 mls/hr IVPB BID [facility] Last Admin: 09/01/16 11:18 Dose: 100 mls/hr Fluconazole (Diflucan 200 Mg/D5w Premixed Ivpb -) 100 mls @ 100 mls/hr IVPB DAILY [facility] Last Admin: 09/01/16 13:08 Dose: 100 mls/hr Piperacillin Sod/Tazobactam Sod (Zosyn 4.5gm Ivpb (Pre-Docked)) 100 mls @ 200 mls/hr IVPB Q6H-IV [facility] PRN Reason: Protocol Last Admin: 09/01/16 22:00 Dose: 200 mls/hr Insulin Aspart (Novolog Vial Sliding Scale -) 1 vial SQ ACHS [facility] PRN Reason: Protocol Last Admin: 09/01/16 18:44 Dose: 2 units Insulin Detemir (Levemir Vial) 18 units SQ HS [facility] Last Admin: 08/31/16 23:14 Dose: 18 units Miscellaneous (Duragesic Patch Waste) 1 each TD PRN PRN PRN Reason: PAIN Last Admin: 09/01/16 14:55 Dose: 1 each Morphine Sulfate (Morphine Injection -) 2 mg IVPUSH Q4H PRN PRN Reason: PAIN Last Admin: 09/01/16 10:05 Dose: 2 mg Ofloxacin (Ocuflox 0.3% Eye Drops -) 1 drop OD Q4HWA [facility] Last Admin: 09/01/16 18:45 Dose: 1 drop Prednisolone Acetate (Pred Forte 1% -) 1 drop OD BID [facility] Last Admin: 09/01/16 09:30 Dose: 1 drop - Objective Vital Signs: Vital Signs Temperature 98.8 F 09/01/16 18:00 Pulse Rate 68 09/01/16 18:00 Respiratory Rate 17 09/01/16 18:45 Blood Pressure 118/68 09/01/16 18:00 O2 Sat by Pulse Oximetry (%) 96 08/27/16 22:00 Constitutional: Yes: Cachectic, Pallor Neck: Yes: Trachea Midline (S/p Tracheostomy) Cardiovascular: Yes: S1, S2 Respiratory: Yes: Diminished, Rhonchi Gastrointestinal: Yes: Normal Bowel Sounds Genitourinary: No: Bladder Distention, Hematuria Extremities: Yes: Other (Gangrene of the finfers and toes) Neurological: Yes: Other (Minimally responsive) Labs: CBC, BMP 09/01/16 06:55 09/01/16 06:55 INR, PTT INR 1.31 (0.82-1.09) H 08/28/16 10:30 Fibrinogen > 700.0 mg/dL (238-498) H 07/31/16 05:40 Problem List - Problems (1) Perforated abdominal viscus Code(s): OQL7661 - (2) ZAHIRA (acute kidney injury) Code(s): N17.9 - ACUTE KIDNEY FAILURE, UNSPECIFIED (3) Hypomagnesemia Code(s): E83.42 - HYPOMAGNESEMIA (4) Metabolic acidemia Code(s): E87.2 - ACIDOSIS (5) Metabolic acidosis Code(s): E87.2 - ACIDOSIS Assessment/Plan 65 y/o female with recent ZAHIRA. Renal functions improved since. S/p Perforated viscus, s/p colectomy. Receiving TPN for nutritional supplements. TPN well tolerated. Remains profoundly Hypoalbuminemic. Electrolyte profile within acceptable range. Afebrile. No specific changes in treatments suggested at this point. Will follow the elctrolyte and renal functions. Katty Singer MD
[2016-09-02] MEDS: INSULIN DETEMIR 100 UNITS/ML MDV SQ SCH ×2 (00:09→22:40)
[2016-09-02] MEDS: INSULIN SLIDING SCALE (NOVOLOG) 1 VIAL SQ SCH ×5 (00:10→22:40)
[2016-09-02] MEDS: prednisoLONE ACETATE 1% OPHTH SUSP 5 ML BOTTLE OD SCH ×3 (00:15→22:49)
[2016-09-02] MEDS: OFLOXACIN 0.3% OPHTHALMIC SOLUTION 5 ML BOTTLE OD SCH ×6 (00:15→22:41)
[2016-09-02] MEDS: PIPERACILLIN/TAZOB 4.5 GM 100 ML IVPB SCH ×4 (03:50→22:18)
[2016-09-02] MEDS: ALBUTEROL SO4 0.083% IH SOL 2.5 MG/3 ML VIAL.NEB. NEB SCH ×4 (06:52→23:20)
--- NOTE | 2016-09-02 08:57 | PN ---
Progress Note, Physician Chief Complaint: No new complaints History of Present Illness: On respirator - Current Medication List Current Medications: Active Medications Acetaminophen (Ofirmev Injection -) 1,000 mg IVPB Q6H PRN PRN Reason: FEVER Last Admin: 08/29/16 16:45 Dose: 1,000 mg Albuterol Sulfate (Ventolin 0.083% Nebulizer Soln -) 1 amp NEB QIDR [facility] Last Admin: 09/02/16 06:52 Dose: 1 amp Chlorhexidine Gluconate (Peridex -) 15 ml MM BID [facility] Last Admin: 09/01/16 23:53 Dose: Not Given Dextrose (D50w (Vial) -) 50 ml IVPUSH Q15M PRN PRN Reason: BLOOD SUGAR < 60 Enoxaparin Sodium (Lovenox -) 40 mg SQ BID [facility] Last Admin: 09/01/16 23:51 Dose: 40 mg Fentanyl (Duragesic 25mcg Patch -) 1 patch TD Q72H [facility] Last Admin: 09/01/16 14:55 Dose: 1 patch Furosemide (Lasix -) 20 mg GT DAILY [facility] Last Admin: 09/01/16 11:16 Dose: 20 mg Famotidine/Sodium Chloride (Pepcid 20 Mg Premixed Ivpb -) 50 mls @ 100 mls/hr IVPB BID [facility] Last Admin: 09/01/16 23:51 Dose: 100 mls/hr Fluconazole (Diflucan 200 Mg/D5w Premixed Ivpb -) 100 mls @ 100 mls/hr IVPB DAILY [facility] Last Admin: 09/01/16 13:08 Dose: 100 mls/hr Piperacillin Sod/Tazobactam Sod (Zosyn 4.5gm Ivpb (Pre-Docked)) 100 mls @ 200 mls/hr IVPB Q6H-IV [facility] PRN Reason: Protocol Last Admin: 09/02/16 03:50 Dose: 200 mls/hr Insulin Aspart (Novolog Vial Sliding Scale -) 1 vial SQ ACHS [facility] PRN Reason: Protocol Last Admin: 09/02/16 07:10 Dose: Not Given Insulin Detemir (Levemir Vial) 18 units SQ HS [facility] Last Admin: 09/02/16 00:09 Dose: 18 units Miscellaneous (Duragesic Patch Waste) 1 each TD PRN PRN PRN Reason: PAIN Last Admin: 09/01/16 14:55 Dose: 1 each Morphine Sulfate (Morphine Injection -) 2 mg IVPUSH Q4H PRN PRN Reason: PAIN Last Admin: 09/01/16 10:05 Dose: 2 mg Ofloxacin (Ocuflox 0.3% Eye Drops -) 1 drop OD Q4HWA [facility] Last Admin: 09/02/16 07:01 Dose: Not Given Prednisolone Acetate (Pred Forte 1% -) 1 drop OD BID [facility] Last Admin: 09/02/16 00:15 Dose: Not Given - Objective Vital Signs: Vital Signs Temperature 100 F H 09/02/16 04:12 Pulse Rate 80 09/01/16 22:25 Respiratory Rate 20 09/02/16 06:52 Blood Pressure 120/57 09/01/16 22:25 O2 Sat by Pulse Oximetry (%) 96 08/27/16 22:00 Constitutional: Yes: Mild Distress Eyes: Yes: WNL HENT: Yes: WNL Neck: Yes: WNL Cardiovascular: Yes: WNL Respiratory: Yes: Mechanically Ventilated Gastrointestinal: Yes: WNL ...Rectal Exam: Yes: Deferred Genitourinary: Yes: WNL, Bacon Present Edema: No Peripheral Pulses WNL: Yes Integumentary: Yes: WNL Neurological: Yes: Alert Labs: CBC, BMP 09/01/16 06:55 09/01/16 06:55 INR, PTT INR 1.31 (0.82-1.09) H 08/28/16 10:30 Fibrinogen > 700.0 mg/dL (238-498) H 07/31/16 05:40 Assessment/Plan Start on IMV
--- NOTE | 2016-09-02 09:17 | CON.ENT ---
Consult Consult Specialty:: ENT Referred by:: Dr Partida Reason for Consultation:: Evaluation of tracheostomy tube - History of Present Illness Chief Complaint: Ventilator keeps alarming, trouble passing suction catheter History of Present Illness: 65 yo female with multiple medical issues, ventilator dependent, s/p tracheostomy by Dr Louise a few weeks ago, with trouble suctioning of tube and alarming of ventilator. Pt in no distress and able to maintain O2 sats. Asked to evaluate end of tube. - History Source History Provided By: Medical Record Limitations to Obtaining History: Clinical Condition - Past Medical History [employer]: Yes: Dementia ...: No - Alcohol/Substance Use Hx Alcohol Use: Yes (2 beers daily) - Smoking History Smoking history: Never smoked Have you smoked in the past 12 months: No If you are a former smoker, when did you quit?: ONE YRS AGO - Social History Usual Living Arrangement: With Spouse Home Medications - Allergies Allergies/Adverse Reactions: Allergies Allergy/AdvReac Type Severity Reaction Status Date / Time No Known Drug Allergies Allergy Verified 07/16/16 09:56 - Home Medications Home Medications: Ambulatory Orders Glipizide Xl [Glucotrol Xl -] 5 mg PO DAILY 01/30/16 Lisinopril [Zestril] 30 mg PO DAILY 01/30/16 Metformin HCl [Metformin HCl ER] 1,000 mg PO BIDAC 01/30/16 Simvastatin 10 mg PO HS 01/30/16 Aspirin Coated [Ecotrin -] 81 mg PO DAILY 04/15/16 Physical Exam-ENT Vital Signs: Vital Signs Temperature 100 F H 09/02/16 04:12 Pulse Rate 80 09/01/16 22:25 Respiratory Rate 20 09/02/16 06:52 Blood Pressure 120/57 09/01/16 22:25 O2 Sat by Pulse Oximetry (%) 96 08/27/16 22:00 Constitutional: Yes: No Distress Neck: Yes: Other (tracheostomy tube secure, no air leak) Problem List - Problems (1) Ventilator dependence Assessment/Plan: Pt s/p tracheostomy with excess granulation at tip of tube causing blockage with alarming of ventilator. Recommend changing to longer tube to bypass area of narrowing. Discussed with nursing and Dr Miranda. Dr Louise to be contacted. Code(s): Z99.11 - DEPENDENCE ON RESPIRATOR [VENTILATOR] STATUS Procedure Note Procedure: Flexible fiberoptic scope passed via tracheostomy tube with assistance of RN. Tube patent, excess granulation tissue noted at end of tube. Unable to visualize past tissue. Did not forcefully try to pass to avoid bleeding.
--- NOTE | 2016-09-02 10:01 | PN ---
Progress Note, Physician - Current Medication List Current Medications: Active Medications Acetaminophen (Ofirmev Injection -) 1,000 mg IVPB Q6H PRN PRN Reason: FEVER Last Admin: 08/29/16 16:45 Dose: 1,000 mg Albuterol Sulfate (Ventolin 0.083% Nebulizer Soln -) 1 amp NEB QIDR [facility] Last Admin: 09/02/16 06:52 Dose: 1 amp Chlorhexidine Gluconate (Peridex -) 15 ml MM BID [facility] Last Admin: 09/01/16 23:53 Dose: Not Given Dextrose (D50w (Vial) -) 50 ml IVPUSH Q15M PRN PRN Reason: BLOOD SUGAR < 60 Enoxaparin Sodium (Lovenox -) 40 mg SQ BID [facility] Last Admin: 09/01/16 23:51 Dose: 40 mg Fentanyl (Duragesic 25mcg Patch -) 1 patch TD Q72H [facility] Last Admin: 09/01/16 14:55 Dose: 1 patch Furosemide (Lasix -) 20 mg GT DAILY [facility] Last Admin: 09/01/16 11:16 Dose: 20 mg Famotidine/Sodium Chloride (Pepcid 20 Mg Premixed Ivpb -) 50 mls @ 100 mls/hr IVPB BID [facility] Last Admin: 09/01/16 23:51 Dose: 100 mls/hr Fluconazole (Diflucan 200 Mg/D5w Premixed Ivpb -) 100 mls @ 100 mls/hr IVPB DAILY [facility] Last Admin: 09/01/16 13:08 Dose: 100 mls/hr Piperacillin Sod/Tazobactam Sod (Zosyn 4.5gm Ivpb (Pre-Docked)) 100 mls @ 200 mls/hr IVPB Q6H-IV [facility] PRN Reason: Protocol Last Admin: 09/02/16 03:50 Dose: 200 mls/hr Insulin Aspart (Novolog Vial Sliding Scale -) 1 vial SQ ACHS [facility] PRN Reason: Protocol Last Admin: 09/02/16 07:10 Dose: Not Given Insulin Detemir (Levemir Vial) 18 units SQ HS [facility] Last Admin: 09/02/16 00:09 Dose: 18 units Miscellaneous (Duragesic Patch Waste) 1 each TD PRN PRN PRN Reason: PAIN Last Admin: 09/01/16 14:55 Dose: 1 each Ofloxacin (Ocuflox 0.3% Eye Drops -) 1 drop OD Q4HWA [facility] Last Admin: 09/02/16 07:01 Dose: Not Given Prednisolone Acetate (Pred Forte 1% -) 1 drop OD BID [facility] Last Admin: 09/02/16 00:15 Dose: Not Given - Objective Vital Signs: Vital Signs Temperature 100 F H 09/02/16 04:12 Pulse Rate 80 09/01/16 22:25 Respiratory Rate 20 09/02/16 06:52 Blood Pressure 120/57 09/01/16 22:25 O2 Sat by Pulse Oximetry (%) 96 08/27/16 22:00 Labs: CBC, BMP 09/01/16 06:55 09/01/16 06:55 INR, PTT INR 1.31 (0.82-1.09) H 08/28/16 10:30 Fibrinogen > 700.0 mg/dL (238-498) H 07/31/16 05:40 Problem List - Problems (1) Abdominal pain Code(s): R10.9 - UNSPECIFIED ABDOMINAL PAIN Qualifiers: Abdominal location: periumbilical Qualified Code(s): R10.33 - Periumbilical pain (2) Perforated abdominal viscus Code(s): [id number] - (3) Perforated viscus Code(s): R19.8 - OTH SYMPTOMS AND SIGNS INVOLVING THE DGSTV SYS AND ABDOMEN (4) Hypertension Code(s): I10 - ESSENTIAL (PRIMARY) HYPERTENSION Qualifiers: Hypertension type: essential hypertension Qualified Code(s): I10 - Essential (primary) hypertension Assessment/Plan Surgery: Patient is tolerating tube feeding. Abdominal wound and drain site , granulation and necrotic tissue excised with scissors. Wound is clean after debridement. Tracheostomy site inspected, tube is clean. Suction catheter is passed beyond the tip of the tracheostomy tube into the trachea. Consider pulonary follow up to do tracheobrochoscopy , to evaluate for inspissated sputum. Drainage fro drain site has stopped, ? healing enteric fistula.
[2016-09-02] MEDS: FUROSEMIDE 20 MG TABLET (FP) GT SCH (10:30)
[2016-09-02] MEDS: FLUCONAZOLE 200 MG/D5W 100 ML IVPB SCH (10:30)
[2016-09-02] MEDS: ENOXAPARIN NA (PORCINE) 40 MG/0.4 ML DISP.SYRIN SQ SCH ×2 (10:30→22:21)
[2016-09-02] MEDS: FAMOTIDINE 20 MG/50 ML IVPB 50 ML IVPB SCH ×2 (11:00→22:21)
[2016-09-02] MEDS: CHLORHEXIDINE GLUCONATE 0.12% 15ML CUP MM SCH ×2 (11:24→22:41)
--- NOTE | 2016-09-02 12:17 | PN ---
Progress Note (short form) - Note Progress Note: NAD on AC mode of vent, 40% FiO2. ENT consult noted -> Excessive granulation tissue just distal to the Trach tube. CXR : I do not appreciate an gross change in minimal bibasilar atelectasis. Intake & Output 08/30/16 08/31/16 09/01/16 09/02/16 23:59 23:59 23:59 23:59 Intake Total 1785 1650 1450 750 Output Total 1470 560 670 Balance 315 1090 780 750 Last Vital Signs Temp Pulse Resp BP Pulse Ox 100 F H 80 17 120/57 96 09/02/16 04:12 09/01/16 22:25 09/02/16 10:32 09/01/16 22:25 08/27/16 22:00 Active Medications Acetaminophen (Ofirmev Injection -) 1,000 mg IVPB Q6H PRN PRN Reason: FEVER Last Admin: 08/29/16 16:45 Dose: 1,000 mg Albuterol Sulfate (Ventolin 0.083% Nebulizer Soln -) 1 amp NEB QIDR [facility] Last Admin: 09/02/16 06:52 Dose: 1 amp Chlorhexidine Gluconate (Peridex -) 15 ml MM BID [facility] Last Admin: 09/02/16 11:24 Dose: 15 ml Dextrose (D50w (Vial) -) 50 ml IVPUSH Q15M PRN PRN Reason: BLOOD SUGAR < 60 Enoxaparin Sodium (Lovenox -) 40 mg SQ BID [facility] Last Admin: 09/02/16 10:30 Dose: 40 mg Fentanyl (Duragesic 25mcg Patch -) 1 patch TD Q72H [facility] Last Admin: 09/01/16 14:55 Dose: 1 patch Furosemide (Lasix -) 20 mg GT DAILY [facility] Last Admin: 09/02/16 10:30 Dose: 20 mg Famotidine/Sodium Chloride (Pepcid 20 Mg Premixed Ivpb -) 50 mls @ 100 mls/hr IVPB BID [facility] Last Admin: 09/02/16 11:00 Dose: 100 mls/hr Fluconazole (Diflucan 200 Mg/D5w Premixed Ivpb -) 100 mls @ 100 mls/hr IVPB DAILY [facility] Last Admin: 09/02/16 10:30 Dose: 100 mls/hr Piperacillin Sod/Tazobactam Sod (Zosyn 4.5gm Ivpb (Pre-Docked)) 100 mls @ 200 mls/hr IVPB Q6H-IV [facility] PRN Reason: Protocol Last Admin: 09/02/16 09:00 Dose: 200 mls/hr Insulin Aspart (Novolog Vial Sliding Scale -) 1 vial SQ ACHS [facility] PRN Reason: Protocol Last Admin: 09/02/16 07:10 Dose: Not Given Insulin Detemir (Levemir Vial) 18 units SQ HS [facility] Last Admin: 09/02/16 00:09 Dose: 18 units Miscellaneous (Duragesic Patch Waste) 1 each TD PRN PRN PRN Reason: PAIN Last Admin: 09/01/16 14:55 Dose: 1 each Ofloxacin (Ocuflox 0.3% Eye Drops -) 1 drop OD Q4HWA [facility] Last Admin: 09/02/16 07:01 Dose: Not Given Prednisolone Acetate (Pred Forte 1% -) 1 drop OD BID [facility] Last Admin: 09/02/16 00:15 Dose: Not Given Gen: Trached, arousable Heart: RRR Lung: scattered rhonchi Abd: soft, dressings intact Ext: cold, hypoperfused, blackened Laboratory Results - last 24 hr 09/01/16 09/02/16 09/02/16 18:40 00:04 00:08 POC Glucometer 183 40 219 09/02/16 07:08 POC Glucometer 107 ASSESSMENT AND PLAN: Perforated Duodenal Ulcer Peritonitis s/p ex-lap/omental patch repair 07/16 Acute Respiratory Failure Septic Shock Acute Kidney Injury Lactic Acidosis Leukopenia/Thrombocytopenia likely from sepsis DM Encephalopathy - There would be no clinical benefit from bronchoscopy at this time. ENT visualized excessive granulation tissue on fiberoptic inspection. CXR does not show significant areas of atelectasis that would warrant the risks of a brochcoscopy in this frail patient. ENT recommended possible XL trach to be inserted based on surgical discretion. Caution with suctioning due to risk of bleeding. - Maintain current vent settings - ABX per ID - taper FiO2 to keep Spo2 >90% - DVT/GI prophylaxis - Enteral feeds to be maximized as tolerated Dr Dubon
--- NOTE | 2016-09-02 13:13 | PN ---
Progress Note, Physician Chief Complaint: The patient seen in her bed. Vent supported. Maintains good urine output TPN infusing Minimally responsive. Low grade fever. - Current Medication List Current Medications: Active Medications Acetaminophen (Ofirmev Injection -) 1,000 mg IVPB Q6H PRN PRN Reason: FEVER Last Admin: 08/29/16 16:45 Dose: 1,000 mg Albuterol Sulfate (Ventolin 0.083% Nebulizer Soln -) 1 amp NEB QIDR [facility] Last Admin: 09/02/16 06:52 Dose: 1 amp Chlorhexidine Gluconate (Peridex -) 15 ml MM BID [facility] Last Admin: 09/02/16 11:24 Dose: 15 ml Dextrose (D50w (Vial) -) 50 ml IVPUSH Q15M PRN PRN Reason: BLOOD SUGAR < 60 Enoxaparin Sodium (Lovenox -) 40 mg SQ BID [facility] Last Admin: 09/02/16 10:30 Dose: 40 mg Fentanyl (Duragesic 25mcg Patch -) 1 patch TD Q72H [facility] Last Admin: 09/01/16 14:55 Dose: 1 patch Furosemide (Lasix -) 20 mg GT DAILY [facility] Last Admin: 09/02/16 10:30 Dose: 20 mg Famotidine/Sodium Chloride (Pepcid 20 Mg Premixed Ivpb -) 50 mls @ 100 mls/hr IVPB BID [facility] Last Admin: 09/02/16 11:00 Dose: 100 mls/hr Fluconazole (Diflucan 200 Mg/D5w Premixed Ivpb -) 100 mls @ 100 mls/hr IVPB DAILY [facility] Last Admin: 09/02/16 10:30 Dose: 100 mls/hr Piperacillin Sod/Tazobactam Sod (Zosyn 4.5gm Ivpb (Pre-Docked)) 100 mls @ 200 mls/hr IVPB Q6H-IV [facility] PRN Reason: Protocol Last Admin: 09/02/16 09:00 Dose: 200 mls/hr Insulin Aspart (Novolog Vial Sliding Scale -) 1 vial SQ ACHS [facility] PRN Reason: Protocol Last Admin: 09/02/16 07:10 Dose: Not Given Insulin Detemir (Levemir Vial) 18 units SQ HS [facility] Last Admin: 09/02/16 00:09 Dose: 18 units Miscellaneous (Duragesic Patch Waste) 1 each TD PRN PRN PRN Reason: PAIN Last Admin: 09/01/16 14:55 Dose: 1 each Ofloxacin (Ocuflox 0.3% Eye Drops -) 1 drop OD Q4HWA [facility] Last Admin: 09/02/16 07:01 Dose: Not Given Prednisolone Acetate (Pred Forte 1% -) 1 drop OD BID [facility] Last Admin: 09/02/16 00:15 Dose: Not Given - Objective Vital Signs: Vital Signs Temperature 100 F H 09/02/16 04:12 Pulse Rate 80 09/01/16 22:25 Respiratory Rate 17 09/02/16 10:32 Blood Pressure 120/57 09/01/16 22:25 O2 Sat by Pulse Oximetry (%) 96 08/27/16 22:00 Constitutional: Yes: Calm Neck: Yes: Trachea Midline (S/p Tracheostomy and vent suppport.) Cardiovascular: Yes: S1, S2 Respiratory: Yes: Mechanically Ventilated Gastrointestinal: Yes: Soft Extremities: Yes: Other (gangrene) Labs: CBC, BMP 09/01/16 06:55 09/01/16 06:55 INR, PTT INR 1.31 (0.82-1.09) H 08/28/16 10:30 Fibrinogen > 700.0 mg/dL (238-498) H 07/31/16 05:40 Problem List - Problems (1) Perforated abdominal viscus Code(s): [id number] - (2) ZAHIRA (acute kidney injury) Code(s): N17.9 - ACUTE KIDNEY FAILURE, UNSPECIFIED (3) Hypomagnesemia Code(s): E83.42 - HYPOMAGNESEMIA (4) Metabolic acidemia Code(s): E87.2 - ACIDOSIS (5) Metabolic acidosis Code(s): E87.2 - ACIDOSIS Assessment/Plan 65 y/o female with recent ZAHIRA. Renal functions improved since. S/p Perforated viscus, s/p colectomy. Receiving TPN for nutritional supplements. TPN well tolerated. Remains profoundly Hypoalbuminemic. Electrolyte profile within acceptable range. Evaluation in progress regarding the Trache tube. Low grade fever noted. Concur with the Abx course. No specific changes in treatments suggested at this point from renal perspective. Will follow the electrolyte and renal functions. Katty Singer MD
--- NOTE | 2016-09-02 15:23 | PN ---
Progress Note, Physician History of Present Illness: patient stable still with fever await for cx results again - Current Medication List Current Medications: Active Medications Acetaminophen (Ofirmev Injection -) 1,000 mg IVPB Q6H PRN PRN Reason: FEVER Last Admin: 08/29/16 16:45 Dose: 1,000 mg Albuterol Sulfate (Ventolin 0.083% Nebulizer Soln -) 1 amp NEB QIDR [facility] Last Admin: 09/02/16 12:36 Dose: 1 amp Chlorhexidine Gluconate (Peridex -) 15 ml MM BID [facility] Last Admin: 09/02/16 11:24 Dose: 15 ml Dextrose (D50w (Vial) -) 50 ml IVPUSH Q15M PRN PRN Reason: BLOOD SUGAR < 60 Enoxaparin Sodium (Lovenox -) 40 mg SQ BID [facility] Last Admin: 09/02/16 10:30 Dose: 40 mg Fentanyl (Duragesic 25mcg Patch -) 1 patch TD Q72H [facility] Last Admin: 09/01/16 14:55 Dose: 1 patch Furosemide (Lasix -) 20 mg GT DAILY [facility] Last Admin: 09/02/16 10:30 Dose: 20 mg Famotidine/Sodium Chloride (Pepcid 20 Mg Premixed Ivpb -) 50 mls @ 100 mls/hr IVPB BID [facility] Last Admin: 09/02/16 11:00 Dose: 100 mls/hr Fluconazole (Diflucan 200 Mg/D5w Premixed Ivpb -) 100 mls @ 100 mls/hr IVPB DAILY [facility] Last Admin: 09/02/16 10:30 Dose: 100 mls/hr Piperacillin Sod/Tazobactam Sod (Zosyn 4.5gm Ivpb (Pre-Docked)) 100 mls @ 200 mls/hr IVPB Q6H-IV [facility] PRN Reason: Protocol Last Admin: 09/02/16 09:00 Dose: 200 mls/hr Insulin Aspart (Novolog Vial Sliding Scale -) 1 vial SQ ACHS [facility] PRN Reason: Protocol Last Admin: 09/02/16 14:59 Dose: Not Given Insulin Detemir (Levemir Vial) 18 units SQ HS [facility] Last Admin: 09/02/16 00:09 Dose: 18 units Miscellaneous (Duragesic Patch Waste) 1 each TD PRN PRN PRN Reason: PAIN Last Admin: 09/01/16 14:55 Dose: 1 each Ofloxacin (Ocuflox 0.3% Eye Drops -) 1 drop OD Q4HWA [facility] Last Admin: 09/02/16 07:01 Dose: Not Given Prednisolone Acetate (Pred Forte 1% -) 1 drop OD BID [facility] Last Admin: 09/02/16 00:15 Dose: Not Given - Objective Vital Signs: Vital Signs Temperature 99.4 F 09/02/16 14:30 Pulse Rate 97 H 09/02/16 14:30 Respiratory Rate 17 09/02/16 14:37 Blood Pressure 134/63 09/02/16 14:30 O2 Sat by Pulse Oximetry (%) 96 08/27/16 22:00 Constitutional: Yes: Other Cardiovascular: Yes: Regular Rate and Rhythm Respiratory: Yes: Mechanically Ventilated, Rhonchi, Other Gastrointestinal: Yes: Soft, Other (feeding tube in place) Musculoskeletal: Yes: Other Extremities: Yes: Other Neurological: Yes: Alert, Other Psychiatric: Yes: Alert Labs: CBC, BMP 09/01/16 06:55 09/01/16 06:55 INR, PTT INR 1.31 (0.82-1.09) H 08/28/16 10:30 Fibrinogen > 700.0 mg/dL (238-498) H 07/31/16 05:40 Assessment/Plan Problem List - Problems (1) Abdominal pain Code(s): R10.9 - UNSPECIFIED ABDOMINAL PAIN Qualifiers: Qualified Code(s): R10.33 - Periumbilical pain (2) Perforated abdominal viscus Code(s): [id number] - (3) Perforated viscus Code(s): R19.8 - OTH SYMPTOMS AND SIGNS INVOLVING THE DGSTV SYS AND ABDOMEN (4) Hypertension Code(s): I10 - ESSENTIAL (PRIMARY) HYPERTENSION Qualifiers: Qualified Code(s): I10 - Essential (primary) hypertension lactic acidosis fevers generalized swelling gangrene of the tip of the fingers noted pseudomonas pneumonia patient still spiking cultures resend plan patient stable await for final results cx results noted pending organism ct current abx
[2016-09-02] MEDS ORDERED: diphenhydrAMINE HCL 12.5 MG/5 ML UNIT-DOSE CUPS PO ONE (17:15)
[2016-09-03] MEDS: PIPERACILLIN/TAZOB 4.5 GM 100 ML IVPB SCH ×2 (03:56→08:32)
[2016-09-03] MEDS: INSULIN SLIDING SCALE (NOVOLOG) 1 VIAL SQ SCH ×4 (06:18→22:26)
[2016-09-03] MEDS: OFLOXACIN 0.3% OPHTHALMIC SOLUTION 5 ML BOTTLE OD SCH ×5 (06:19→21:53)
[2016-09-03 06:31] LABS: ALBUMIN 1.7 g/dl (3.4-5.0); ALK PHOS 162 U/L (45-117); ANION GAP 7 (8-16); BILIRUBIN,TOTAL 0.4 mg/dL (0.2-1.0); CO2 33 mmol/L (21-32); CREATININE 0.3 mg/dL (0.55-1.02); GLUCOSE,RANDOM 184 mg/dL (74-106); MAGNESIUM 1.3 mg/dL (1.8-2.4); PHOSPHOROUS 3.1 mg/dL (2.5-4.9); SGOT/AST 20 U/L (15-37); SGPT/ALT 20 U/L (12-78); TOT PROT 6.6 g/dl (6.4-8.2)
[2016-09-03] MEDS: ALBUTEROL SO4 0.083% IH SOL 2.5 MG/3 ML VIAL.NEB. NEB SCH ×3 (06:50→17:37)
[2016-09-03] MEDS ORDERED: MAGNESIUM SULF 50% (8.12 MEQ/2 ML-1 GM VIAL) IVPB ONE ×3 (08:45→11:45)
[2016-09-03] MEDS ORDERED: PT OWN MED DRAWER 7, Y5N ONE ×3 (10:53→20:49)
[2016-09-03] MEDS: FLUCONAZOLE 200 MG/D5W 100 ML IVPB SCH (11:00)
[2016-09-03] MEDS: FAMOTIDINE 20 MG/50 ML IVPB 50 ML IVPB SCH ×2 (11:00→21:45)
[2016-09-03] MEDS: ENOXAPARIN NA (PORCINE) 40 MG/0.4 ML DISP.SYRIN SQ SCH ×2 (11:00→21:45)
[2016-09-03] MEDS: FUROSEMIDE 20 MG TABLET (FP) GT SCH (11:00)
[2016-09-03] MEDS: prednisoLONE ACETATE 1% OPHTH SUSP 5 ML BOTTLE OD SCH ×2 (11:01→21:52)
[2016-09-03] MEDS: CHLORHEXIDINE GLUCONATE 0.12% 15ML CUP MM SCH ×2 (11:01→21:53)
--- NOTE | 2016-09-03 13:07 | PN ---
Progress Note, Physician Chief Complaint: The patient seen in her bed. Vent supported. Seems more alert. Maintains good urine output TPN infusing. temp 99.9 - Current Medication List Current Medications: Active Medications Acetaminophen (Ofirmev Injection -) 1,000 mg IVPB Q6H PRN PRN Reason: FEVER Last Admin: 08/29/16 16:45 Dose: 1,000 mg Albuterol Sulfate (Ventolin 0.083% Nebulizer Soln -) 1 amp NEB QIDR [facility] Last Admin: 09/03/16 11:04 Dose: 1 amp Chlorhexidine Gluconate (Peridex -) 15 ml MM BID [facility] Last Admin: 09/03/16 11:01 Dose: 15 ml Dextrose (D50w (Vial) -) 50 ml IVPUSH Q15M PRN PRN Reason: BLOOD SUGAR < 60 Enoxaparin Sodium (Lovenox -) 40 mg SQ BID [facility] Last Admin: 09/03/16 11:00 Dose: 40 mg Fentanyl (Duragesic 25mcg Patch -) 1 patch TD Q72H [facility] Last Admin: 09/01/16 14:55 Dose: 1 patch Furosemide (Lasix -) 20 mg GT DAILY [facility] Last Admin: 09/03/16 11:00 Dose: 20 mg Famotidine/Sodium Chloride (Pepcid 20 Mg Premixed Ivpb -) 50 mls @ 100 mls/hr IVPB BID [facility] Last Admin: 09/03/16 11:00 Dose: 100 mls/hr Fluconazole (Diflucan 200 Mg/D5w Premixed Ivpb -) 100 mls @ 100 mls/hr IVPB DAILY [facility] Last Admin: 09/03/16 11:00 Dose: 100 mls/hr Piperacillin Sod/Tazobactam Sod (Zosyn 4.5gm Ivpb (Pre-Docked)) 100 mls @ 200 mls/hr IVPB Q6H-IV [facility] PRN Reason: Protocol Last Admin: 09/03/16 08:32 Dose: 200 mls/hr Insulin Aspart (Novolog Vial Sliding Scale -) 1 vial SQ ACHS [facility] PRN Reason: Protocol Last Admin: 09/03/16 11:43 Dose: 2 units Insulin Detemir (Levemir Vial) 18 units SQ HS [facility] Last Admin: 09/02/16 22:40 Dose: 18 units Miscellaneous (Duragesic Patch Waste) 1 each TD PRN PRN PRN Reason: PAIN Last Admin: 09/01/16 14:55 Dose: 1 each Morphine Sulfate (Morphine Injection -) 2 mg IVPUSH Q6H PRN PRN Reason: PAIN Ofloxacin (Ocuflox 0.3% Eye Drops -) 1 drop OD Q4HWA [facility] Last Admin: 09/03/16 11:02 Dose: 1 drop Prednisolone Acetate (Pred Forte 1% -) 1 drop OD BID [facility] Last Admin: 09/03/16 11:01 Dose: 1 drop - Objective Vital Signs: Vital Signs Temperature 99.9 F H 09/02/16 22:00 Pulse Rate 96 H 09/02/16 17:56 Respiratory Rate 15 09/03/16 10:32 Blood Pressure 122/69 09/02/16 22:00 O2 Sat by Pulse Oximetry (%) 98 09/02/16 09:00 Neck: Yes: Trachea Midline, Other (s/p Tracheostomy) Cardiovascular: Yes: S1, S2 Respiratory: Yes: Diminished, Rhonchi Gastrointestinal: Yes: Soft, Other (G tube in place. Tube feeding in progress.) Extremities: Yes: Other (gangrenes) Labs: CBC, BMP 09/01/16 06:55 09/03/16 05:45 INR, PTT INR 1.31 (0.82-1.09) H 08/28/16 10:30 Fibrinogen > 700.0 mg/dL (238-498) H 07/31/16 05:40 Problem List - Problems (1) Perforated abdominal viscus Code(s): [id number] - (2) ZAHIRA (acute kidney injury) Code(s): N17.9 - ACUTE KIDNEY FAILURE, UNSPECIFIED (3) Hypomagnesemia Code(s): E83.42 - HYPOMAGNESEMIA (4) Metabolic acidemia Code(s): E87.2 - ACIDOSIS (5) Metabolic acidosis Code(s): E87.2 - ACIDOSIS Assessment/Plan 65 y/o female with recent ZAHIRA. Renal functions improved since. S/p Perforated viscus, s/p colectomy. Tube feeding. TPN well tolerated. Remains profoundly Hypoalbuminemic. Tendency for Hypercalcemia. ? Due to immobilization. Will monitor. HypoMagnesemia...Was given MgSo4 IV Low grade fever noted. Concur with the Abx course. No specific changes in treatments suggested at this point from renal perspective. Will follow the electrolyte and renal functions. Katty Singer MD
[2016-09-03] MEDS: CEFTAZIDIME PENTAHYDRATE 1 GM in DEXTROSE 5%-WATER - 50 ML IVPB SCH ×2 (16:53→17:07)
[2016-09-03 17:23] LABS: BASOPHIL 0.3 % (0-2.0); MCH 28.7 pg (25.7-33.7); MCHC 33.4 g/dl (32.0-36.0); MEAN CELL VOLUME 85.9 fl (80-96); MEAN PLT VOLUME 7.7 fl (7.5-11.1); NEUTROPHILS 68.8 % (42.8-82.8); PLATELET COUNT 450 K/MM3 (134-434); WHITE BLOOD COUNT 10.9 K/mm3 (4.0-10.0)
[2016-09-03] MEDS: INSULIN DETEMIR 100 UNITS/ML MDV SQ SCH (22:26)
[2016-09-04] MEDS: ALBUTEROL SO4 0.083% IH SOL 2.5 MG/3 ML VIAL.NEB. NEB SCH ×5 (00:10→23:10)
[2016-09-04] MEDS: CEFTAZIDIME PENTAHYDRATE 1 GM in DEXTROSE 5%-WATER - 50 ML IVPB SCH ×3 (01:55→17:53)
[2016-09-04] MEDS: INSULIN SLIDING SCALE (NOVOLOG) 1 VIAL SQ SCH ×4 (06:41→23:17)
[2016-09-04] MEDS: ACETAMINOPHEN 1000 MG/100 ML VIAL (NON FORMULARY) IVPB PRN (07:07)
[2016-09-04] MEDS: OFLOXACIN 0.3% OPHTHALMIC SOLUTION 5 ML BOTTLE OD SCH ×5 (07:08→23:10)
--- NOTE | 2016-09-04 08:43 | PN ---
Progress Note, Physician Chief Complaint: No new complaints History of Present Illness: S/P perforated duodenal ulcer,septic shock ,draining fistula and S/P drainage warren hepatic abscess - Current Medication List Current Medications: Active Medications Acetaminophen (Ofirmev Injection -) 1,000 mg IVPB Q6H PRN PRN Reason: FEVER Last Admin: 09/04/16 07:07 Dose: 1,000 mg Albuterol Sulfate (Ventolin 0.083% Nebulizer Soln -) 1 amp NEB QIDR [facility] Last Admin: 09/04/16 06:45 Dose: 1 amp Chlorhexidine Gluconate (Peridex -) 15 ml MM BID [facility] Last Admin: 09/03/16 21:53 Dose: 15 ml Dextrose (D50w (Vial) -) 50 ml IVPUSH Q15M PRN PRN Reason: BLOOD SUGAR < 60 Enoxaparin Sodium (Lovenox -) 40 mg SQ BID [facility] Last Admin: 09/03/16 21:45 Dose: 40 mg Fentanyl (Duragesic 25mcg Patch -) 1 patch TD Q72H [facility] Last Admin: 09/01/16 14:55 Dose: 1 patch Furosemide (Lasix -) 20 mg GT DAILY [facility] Last Admin: 09/03/16 11:00 Dose: 20 mg Famotidine/Sodium Chloride (Pepcid 20 Mg Premixed Ivpb -) 50 mls @ 100 mls/hr IVPB BID [facility] Last Admin: 09/03/16 21:45 Dose: 100 mls/hr Fluconazole (Diflucan 200 Mg/D5w Premixed Ivpb -) 100 mls @ 100 mls/hr IVPB DAILY [facility] Last Admin: 09/03/16 11:00 Dose: 100 mls/hr Ceftazidime 1 gm/ Dextrose 50 mls @ 100 mls/hr IVPB Q8H-IV [facility] PRN Reason: Protocol Last Admin: 09/04/16 01:55 Dose: 100 mls/hr Insulin Aspart (Novolog Vial Sliding Scale -) 1 vial SQ ACHS [facility] PRN Reason: Protocol Last Admin: 09/04/16 06:41 Dose: Not Given Insulin Detemir (Levemir Vial) 18 units SQ HS [facility] Last Admin: 09/03/16 22:26 Dose: 18 units Miscellaneous (Duragesic Patch Waste) 1 each TD PRN PRN PRN Reason: PAIN Last Admin: 09/01/16 14:55 Dose: 1 each Morphine Sulfate (Morphine Injection -) 2 mg IVPUSH Q6H PRN PRN Reason: PAIN Ofloxacin (Ocuflox 0.3% Eye Drops -) 1 drop OD Q4HWA [facility] Last Admin: 09/04/16 07:08 Dose: 1 drop Prednisolone Acetate (Pred Forte 1% -) 1 drop OD BID [facility] Last Admin: 09/03/16 21:52 Dose: 1 drop - Objective Vital Signs: Vital Signs Temperature 100.5 F H 09/04/16 06:54 Pulse Rate 105 H 09/04/16 06:54 Respiratory Rate 20 09/04/16 06:54 Blood Pressure 133/70 09/04/16 06:54 O2 Sat by Pulse Oximetry (%) 98 09/02/16 09:00 Constitutional: Yes: Mild Distress Eyes: Yes: WNL, Occular Prosthesis Neck: Yes: WNL Cardiovascular: Yes: WNL Respiratory: Yes: Mechanically Ventilated Gastrointestinal: Yes: Normal Bowel Sounds ...Rectal Exam: Yes: Deferred Genitourinary: Yes: Bacon Present Musculoskeletal: Yes: Muscle Weakness Edema: No Peripheral Pulses WNL: Yes Neurological: Yes: Alert Psychiatric: Yes: Oriented Labs: CBC, BMP 09/03/16 16:50 09/03/16 05:45 INR, PTT INR 1.31 (0.82-1.09) H 08/28/16 10:30 Fibrinogen > 700.0 mg/dL (238-498) H 07/31/16 05:40 Assessment/Plan DC IV tylenol and IV pepcid
[2016-09-04 08:52] LABS: MAGNESIUM 1.5 mg/dL (1.8-2.4); PHOSPHOROUS 2.9 mg/dL (2.5-4.9)
[2016-09-04] MEDS ORDERED: PT OWN MED DRAWER 7, Y5N ONE ×3 (10:11→17:38)
[2016-09-04] MEDS: morphine CARPU-JECT 2 MG/1 ML DISP.SYRIN IVPUSH PRN (10:19)
[2016-09-04] MEDS: FLUCONAZOLE 200 MG/D5W 100 ML IVPB SCH (10:21)
[2016-09-04] MEDS: FUROSEMIDE 20 MG TABLET (FP) GT SCH (10:21)
[2016-09-04] MEDS: CHLORHEXIDINE GLUCONATE 0.12% 15ML CUP MM SCH ×2 (10:22→23:09)
[2016-09-04] MEDS: ENOXAPARIN NA (PORCINE) 40 MG/0.4 ML DISP.SYRIN SQ SCH ×2 (10:22→23:09)
[2016-09-04] MEDS: RANITIDINE HCL 150 MG/10 ML UNIT-DOSE CUP PO SCH ×2 (10:23→23:09)
[2016-09-04] MEDS: prednisoLONE ACETATE 1% OPHTH SUSP 5 ML BOTTLE OD SCH ×2 (10:24→23:10)
--- NOTE | 2016-09-04 10:40 | PN ---
Progress Note (short form) - Note Progress Note: Awake. Noted vent alarm for high pressure and low exhaled VT. Patient's neck was repositioned by hyperextension and the suction catether was passed completely. Scant but thick material retrieved (? Granulation tissue and some secretions). Intake & Output 09/01/16 09/02/16 09/03/16 09/04/16 23:59 23:59 23:59 23:59 Intake Total 1450 1950 1100 700 Output Total 670 505 620 520 Balance 780 1445 480 180 Weight 146 lb 6.4 oz Last Vital Signs Temp Pulse Resp BP Pulse Ox 100.5 F H 105 H 20 133/70 98 09/04/16 06:54 09/04/16 06:54 09/04/16 06:54 09/04/16 06:54 09/02/16 09:00 Active Medications Acetaminophen (Tylenol Oral Solution -) 650 mg PO Q6H PRN PRN Reason: FEVER OR PAIN Albuterol Sulfate (Ventolin 0.083% Nebulizer Soln -) 1 amp NEB QIDR [facility] Last Admin: 09/04/16 06:45 Dose: 1 amp Chlorhexidine Gluconate (Peridex -) 15 ml MM BID [facility] Last Admin: 09/04/16 10:22 Dose: 15 ml Dextrose (D50w (Vial) -) 50 ml IVPUSH Q15M PRN PRN Reason: BLOOD SUGAR < 60 Enoxaparin Sodium (Lovenox -) 40 mg SQ BID [facility] Last Admin: 09/04/16 10:22 Dose: 40 mg Fentanyl (Duragesic 25mcg Patch -) 1 patch TD Q72H [facility] Last Admin: 09/01/16 14:55 Dose: 1 patch Furosemide (Lasix -) 20 mg GT DAILY [facility] Last Admin: 09/04/16 10:21 Dose: 20 mg Fluconazole (Diflucan 200 Mg/D5w Premixed Ivpb -) 100 mls @ 100 mls/hr IVPB DAILY [facility] Last Admin: 09/04/16 10:21 Dose: 100 mls/hr Ceftazidime 1 gm/ Dextrose 50 mls @ 100 mls/hr IVPB Q8H-IV [facility] PRN Reason: Protocol Last Admin: 09/04/16 10:21 Dose: 100 mls/hr Insulin Aspart (Novolog Vial Sliding Scale -) 1 vial SQ ACHS [facility] PRN Reason: Protocol Last Admin: 09/04/16 06:41 Dose: Not Given Insulin Detemir (Levemir Vial) 18 units SQ HS [facility] Last Admin: 09/03/16 22:26 Dose: 18 units Miscellaneous (Duragesic Patch Waste) 1 each TD PRN PRN PRN Reason: PAIN Last Admin: 09/01/16 14:55 Dose: 1 each Morphine Sulfate (Morphine Injection -) 2 mg IVPUSH Q6H PRN PRN Reason: PAIN Last Admin: 09/04/16 10:19 Dose: 2 mg Ofloxacin (Ocuflox 0.3% Eye Drops -) 1 drop OD Q4HWA [facility] Last Admin: 09/04/16 10:24 Dose: 1 drop Prednisolone Acetate (Pred Forte 1% -) 1 drop OD BID [facility] Last Admin: 09/04/16 10:24 Dose: 1 drop Ranitidine HCl (Zantac Oral Solution -) 150 mg PO BID [facility] Last Admin: 09/04/16 10:23 Dose: 150 mg Gen: Trached, awake Heart: RRR Lung: Few scattered rhonchi Abd: soft, dressings intact Ext: cold, hypoperfused, blackened Laboratory Results - last 24 hr 09/03/16 09/03/16 09/03/16 11:38 16:50 16:56 WBC 10.9 H RBC 2.80 L Hgb 8.0 L Hct 24.0 L MCV 85.9 MCHC 33.4 RDW 15.0 Plt Count 450 H MPV 7.7 Neutrophils % 68.8 D Lymphocytes % 21.0 D Monocytes % 7.9 Eosinophils % 2.0 Basophils % 0.3 POC Glucometer 188 169 Phosphorus Magnesium 09/03/16 09/04/16 09/04/16 21:59 06:34 06:38 WBC RBC Hgb Hct MCV MCHC RDW Plt Count MPV Neutrophils % Lymphocytes % Monocytes % Eosinophils % Basophils % POC Glucometer 167 40 124 Phosphorus Magnesium 09/04/16 08:00 WBC RBC Hgb Hct MCV MCHC RDW Plt Count MPV Neutrophils % Lymphocytes % Monocytes % Eosinophils % Basophils % POC Glucometer Phosphorus 2.9 Magnesium 1.5 L ASSESSMENT AND PLAN: Perforated Duodenal Ulcer Peritonitis s/p ex-lap/omental patch repair 07/16 Acute Respiratory Failure Septic Shock Acute Kidney Injury Lactic Acidosis Leukopenia/Thrombocytopenia likely from sepsis DM Encephalopathy - There would be no clinical benefit from bronchoscopy at this time. ENT visualized excessive granulation tissue on fiberoptic inspection. Previous CXR does not show significant areas of atelectasis that would warrant the risks of a brochcoscopy in this frail patient. ENT recommended possible XL trach to be inserted based on surgical discretion. Caution with suctioning due to risk of bleeding. Need to position the patient in a hyperextended neck position. Nurses were shown/instructed at the bedside. - Xaxax PRN - Maintain current vent settings - ABX per ID - taper FiO2 to keep Spo2 >90% - DVT/GI prophylaxis - Enteral feeds to be maximized as tolerated - Would continue to discuss with the family GOC Dr Dubon
[2016-09-04] MEDS ORDERED: INSULIN (NOVOLOG) ASPART 100 UNITS/ML 10ML VIAL ONE ×2 (10:49→21:00)
[2016-09-04] MEDS: ALPRAZolam 0.25 MG TABLET PO PRN (10:50)
--- NOTE | 2016-09-04 11:59 | PN ---
Progress Note, Physician Chief Complaint: The patient seen in her bed. Vent supported. Alert, Maintains good urine output Tube feeding well tolerated. - Current Medication List Current Medications: Active Medications Acetaminophen (Tylenol Oral Solution -) 650 mg PO Q6H PRN PRN Reason: FEVER OR PAIN Albuterol Sulfate (Ventolin 0.083% Nebulizer Soln -) 1 amp NEB QIDR [facility] Last Admin: 09/04/16 06:45 Dose: 1 amp Alprazolam (Xanax -) 0.5 mg PO Q8H PRN PRN Reason: AGITATION Last Admin: 09/04/16 10:50 Dose: 0.5 mg Chlorhexidine Gluconate (Peridex -) 15 ml MM BID [facility] Last Admin: 09/04/16 10:22 Dose: 15 ml Dextrose (D50w (Vial) -) 50 ml IVPUSH Q15M PRN PRN Reason: BLOOD SUGAR < 60 Diphenhydramine HCl (Benadryl -) 50 mg PO ONCE ONE Stop: 09/04/16 12:01 Enoxaparin Sodium (Lovenox -) 40 mg SQ BID [facility] Last Admin: 09/04/16 10:22 Dose: 40 mg Fentanyl (Duragesic 25mcg Patch -) 1 patch TD Q72H [facility] Last Admin: 09/01/16 14:55 Dose: 1 patch Furosemide (Lasix -) 20 mg GT DAILY [facility] Last Admin: 09/04/16 10:21 Dose: 20 mg Fluconazole (Diflucan 200 Mg/D5w Premixed Ivpb -) 100 mls @ 100 mls/hr IVPB DAILY [facility] Last Admin: 09/04/16 10:21 Dose: 100 mls/hr Ceftazidime 1 gm/ Dextrose 50 mls @ 100 mls/hr IVPB Q8H-IV [facility] PRN Reason: Protocol Last Admin: 09/04/16 10:21 Dose: 100 mls/hr Insulin Aspart (Novolog Vial Sliding Scale -) 1 vial SQ ACHS [facility] PRN Reason: Protocol Last Admin: 09/04/16 06:41 Dose: Not Given Insulin Detemir (Levemir Vial) 18 units SQ HS [facility] Last Admin: 09/03/16 22:26 Dose: 18 units Magnesium Sulfate (Magnesium Sulfate) 1 gm IVPB ONCE ONE Stop: 09/04/16 11:54 Miscellaneous (Duragesic Patch Waste) 1 each TD PRN PRN PRN Reason: PAIN Last Admin: 09/01/16 14:55 Dose: 1 each Morphine Sulfate (Morphine Injection -) 2 mg IVPUSH Q6H PRN PRN Reason: PAIN Last Admin: 09/04/16 10:19 Dose: 2 mg Ofloxacin (Ocuflox 0.3% Eye Drops -) 1 drop OD Q4HWA [facility] Last Admin: 09/04/16 10:24 Dose: 1 drop Prednisolone Acetate (Pred Forte 1% -) 1 drop OD BID [facility] Last Admin: 09/04/16 10:24 Dose: 1 drop Ranitidine HCl (Zantac Oral Solution -) 150 mg PO BID [facility] Last Admin: 09/04/16 10:23 Dose: 150 mg - Objective Vital Signs: Vital Signs Temperature 99.9 F H 09/04/16 10:00 Pulse Rate 108 H 09/04/16 10:00 Respiratory Rate 20 09/04/16 10:00 Blood Pressure 138/80 09/04/16 10:00 O2 Sat by Pulse Oximetry (%) 98 09/02/16 09:00 Constitutional: Yes: Mild Distress Neck: Yes: Other (Tracheostomy) Cardiovascular: Yes: S1, S2 Respiratory: Yes: Diminished, Mechanically Ventilated, Rhonchi Gastrointestinal: Yes: Other (G tube in place.) Labs: CBC, BMP 09/03/16 16:50 09/03/16 05:45 INR, PTT INR 1.31 (0.82-1.09) H 08/28/16 10:30 Fibrinogen > 700.0 mg/dL (238-498) H 07/31/16 05:40 Problem List - Problems (1) Perforated abdominal viscus Code(s): [id number] - (2) ZAHIRA (acute kidney injury) Code(s): N17.9 - ACUTE KIDNEY FAILURE, UNSPECIFIED (3) Hypomagnesemia Code(s): E83.42 - HYPOMAGNESEMIA (4) Metabolic acidemia Code(s): E87.2 - ACIDOSIS (5) Metabolic acidosis Code(s): E87.2 - ACIDOSIS Assessment/Plan 65 y/o female with recent ZAHIRA. Renal functions improved since. S/p Perforated viscus, s/p colectomy. Tube feeding well tolerated. HypoMagnesemia...Will give another dose of MgSo4 Low grade fever noted. Concur with the Abx course. No specific changes in treatments suggested at this point from renal perspective. Will follow the electrolyte and renal functions. Katty Singer MD
[2016-09-04] MEDS ORDERED: diphenhydrAMINE HCL 50 MG CAPSULE PO ONE (12:00)
[2016-09-04] MEDS ORDERED: diphenhydrAMINE HCL 25 MG CAPSULE (FP) PO ONE (12:02)
[2016-09-04] MEDS ORDERED: MAGNESIUM SULF 50% (8.12 MEQ/2 ML-1 GM VIAL) IVPB ONE (13:00)
[2016-09-04] MEDS: fentaNYL 25mcg/hr PATCH.TD72 TD SCH (15:10)
[2016-09-04] MEDS: FENTANYL PATCH WASTE TD PRN (15:13)
--- NOTE | 2016-09-04 17:15 | PN ---
Progress Note, Physician History of Present Illness: patient stable cx results noted status quo feeding increased - Current Medication List Current Medications: Active Medications Acetaminophen (Tylenol Oral Solution -) 650 mg PO Q6H PRN PRN Reason: FEVER OR PAIN Albuterol Sulfate (Ventolin 0.083% Nebulizer Soln -) 1 amp NEB QIDR [facility] Last Admin: 09/04/16 12:00 Dose: 1 amp Alprazolam (Xanax -) 0.5 mg PO Q8H PRN PRN Reason: AGITATION Last Admin: 09/04/16 10:50 Dose: 0.5 mg Chlorhexidine Gluconate (Peridex -) 15 ml MM BID [facility] Last Admin: 09/04/16 10:22 Dose: 15 ml Dextrose (D50w (Vial) -) 50 ml IVPUSH Q15M PRN PRN Reason: BLOOD SUGAR < 60 Enoxaparin Sodium (Lovenox -) 40 mg SQ BID [facility] Last Admin: 09/04/16 10:22 Dose: 40 mg Fentanyl (Duragesic 25mcg Patch -) 1 patch TD Q72H [facility] Last Admin: 09/04/16 15:10 Dose: 1 patch Furosemide (Lasix -) 20 mg GT DAILY [facility] Last Admin: 09/04/16 10:21 Dose: 20 mg Fluconazole (Diflucan 200 Mg/D5w Premixed Ivpb -) 100 mls @ 100 mls/hr IVPB DAILY [facility] Last Admin: 09/04/16 10:21 Dose: 100 mls/hr Ceftazidime 1 gm/ Dextrose 50 mls @ 100 mls/hr IVPB Q8H-IV [facility] PRN Reason: Protocol Last Admin: 09/04/16 10:21 Dose: 100 mls/hr Insulin Aspart (Novolog Vial Sliding Scale -) 1 vial SQ ACHS [facility] PRN Reason: Protocol Last Admin: 09/04/16 12:09 Dose: 4 units Insulin Detemir (Levemir Vial) 18 units SQ HS [facility] Last Admin: 09/03/16 22:26 Dose: 18 units Miscellaneous (Duragesic Patch Waste) 1 each TD PRN PRN PRN Reason: PAIN Last Admin: 09/04/16 15:13 Dose: 1 each Morphine Sulfate (Morphine Injection -) 2 mg IVPUSH Q6H PRN PRN Reason: PAIN Last Admin: 09/04/16 10:19 Dose: 2 mg Ofloxacin (Ocuflox 0.3% Eye Drops -) 1 drop OD Q4HWA [facility] Last Admin: 09/04/16 15:10 Dose: 1 drop Prednisolone Acetate (Pred Forte 1% -) 1 drop OD BID [facility] Last Admin: 09/04/16 10:24 Dose: 1 drop Ranitidine HCl (Zantac Oral Solution -) 150 mg PO BID [facility] Last Admin: 09/04/16 10:23 Dose: 150 mg - Objective Vital Signs: Vital Signs Temperature 99.8 F H 09/04/16 14:11 Pulse Rate 96 H 09/04/16 14:11 Respiratory Rate 24 09/04/16 14:11 Blood Pressure 126/73 09/04/16 14:11 O2 Sat by Pulse Oximetry (%) 98 09/02/16 09:00 Constitutional: Yes: Other Cardiovascular: Yes: Regular Rate and Rhythm Respiratory: Yes: Mechanically Ventilated, Other Gastrointestinal: Yes: Soft, Other (feeding tube in place) Musculoskeletal: Yes: Other Extremities: Yes: Other (dry gangrene) Neurological: Yes: Alert, Other Psychiatric: Yes: Alert Labs: CBC, BMP 09/03/16 16:50 09/03/16 05:45 INR, PTT INR 1.31 (0.82-1.09) H 08/28/16 10:30 Fibrinogen > 700.0 mg/dL (238-498) H 07/31/16 05:40 Assessment/Plan Problem List - Problems (1) Abdominal pain Code(s): R10.9 - UNSPECIFIED ABDOMINAL PAIN Qualifiers: Qualified Code(s): R10.33 - Periumbilical pain (2) Perforated abdominal viscus Code(s): [id number] - (3) Perforated viscus Code(s): R19.8 - OTH SYMPTOMS AND SIGNS INVOLVING THE DGSTV SYS AND ABDOMEN (4) Hypertension Code(s): I10 - ESSENTIAL (PRIMARY) HYPERTENSION Qualifiers: Qualified Code(s): I10 - Essential (primary) hypertension lactic acidosis fevers generalized swelling gangrene of the tip of the fingers noted pseudomonas pneumonia patient still spiking cultures resend plan patient stable cx results notes abx changed conitnue suctioning
--- NOTE | 2016-09-04 17:19 | PN ---
Progress Note, Physician History of Present Illness: events noted still with thick secretion ent and pul note noted patient now with low grade fever - Current Medication List Current Medications: Active Medications Acetaminophen (Tylenol Oral Solution -) 650 mg PO Q6H PRN PRN Reason: FEVER OR PAIN Albuterol Sulfate (Ventolin 0.083% Nebulizer Soln -) 1 amp NEB QIDR [facility] Last Admin: 09/04/16 12:00 Dose: 1 amp Alprazolam (Xanax -) 0.5 mg PO Q8H PRN PRN Reason: AGITATION Last Admin: 09/04/16 10:50 Dose: 0.5 mg Chlorhexidine Gluconate (Peridex -) 15 ml MM BID [facility] Last Admin: 09/04/16 10:22 Dose: 15 ml Dextrose (D50w (Vial) -) 50 ml IVPUSH Q15M PRN PRN Reason: BLOOD SUGAR < 60 Enoxaparin Sodium (Lovenox -) 40 mg SQ BID [facility] Last Admin: 09/04/16 10:22 Dose: 40 mg Fentanyl (Duragesic 25mcg Patch -) 1 patch TD Q72H [facility] Last Admin: 09/04/16 15:10 Dose: 1 patch Furosemide (Lasix -) 20 mg GT DAILY [facility] Last Admin: 09/04/16 10:21 Dose: 20 mg Fluconazole (Diflucan 200 Mg/D5w Premixed Ivpb -) 100 mls @ 100 mls/hr IVPB DAILY [facility] Last Admin: 09/04/16 10:21 Dose: 100 mls/hr Ceftazidime 1 gm/ Dextrose 50 mls @ 100 mls/hr IVPB Q8H-IV [facility] PRN Reason: Protocol Last Admin: 09/04/16 10:21 Dose: 100 mls/hr Insulin Aspart (Novolog Vial Sliding Scale -) 1 vial SQ ACHS [facility] PRN Reason: Protocol Last Admin: 09/04/16 12:09 Dose: 4 units Insulin Detemir (Levemir Vial) 18 units SQ HS [facility] Last Admin: 09/03/16 22:26 Dose: 18 units Miscellaneous (Duragesic Patch Waste) 1 each TD PRN PRN PRN Reason: PAIN Last Admin: 09/04/16 15:13 Dose: 1 each Morphine Sulfate (Morphine Injection -) 2 mg IVPUSH Q6H PRN PRN Reason: PAIN Last Admin: 09/04/16 10:19 Dose: 2 mg Ofloxacin (Ocuflox 0.3% Eye Drops -) 1 drop OD Q4HWA [facility] Last Admin: 09/04/16 15:10 Dose: 1 drop Prednisolone Acetate (Pred Forte 1% -) 1 drop OD BID [facility] Last Admin: 09/04/16 10:24 Dose: 1 drop Ranitidine HCl (Zantac Oral Solution -) 150 mg PO BID [facility] Last Admin: 09/04/16 10:23 Dose: 150 mg - Objective Vital Signs: Vital Signs Temperature 99.8 F H 09/04/16 14:11 Pulse Rate 96 H 09/04/16 14:11 Respiratory Rate 24 09/04/16 14:11 Blood Pressure 126/73 09/04/16 14:11 O2 Sat by Pulse Oximetry (%) 98 09/02/16 09:00 Constitutional: Yes: Other Cardiovascular: Yes: Regular Rate and Rhythm Respiratory: Yes: Mechanically Ventilated, Other Gastrointestinal: Yes: Soft, Other (peg in place) Musculoskeletal: Yes: Other Extremities: Yes: Other Neurological: Yes: Alert Psychiatric: Yes: Alert Labs: CBC, BMP 09/03/16 16:50 09/03/16 05:45 INR, PTT INR 1.31 (0.82-1.09) H 08/28/16 10:30 Fibrinogen > 700.0 mg/dL (238-498) H 07/31/16 05:40 Assessment/Plan Problem List - Problems (1) Abdominal pain Code(s): R10.9 - UNSPECIFIED ABDOMINAL PAIN Qualifiers: Qualified Code(s): R10.33 - Periumbilical pain (2) Perforated abdominal viscus Code(s): [id number] - (3) Perforated viscus Code(s): R19.8 - OTH SYMPTOMS AND SIGNS INVOLVING THE DGSTV SYS AND ABDOMEN (4) Hypertension Code(s): I10 - ESSENTIAL (PRIMARY) HYPERTENSION Qualifiers: Qualified Code(s): I10 - Essential (primary) hypertension lactic acidosis fevers generalized swelling gangrene of the tip of the fingers noted pseudomonas pneumonia patient still spiking cultures resend plan conitnue abx continue as per pul careful suctioning rest as per primary team
[2016-09-04] MEDS: ACETAMINOPHEN 650 MG/20.3 ML ORAL SOLUTION (CUPS) PO PRN (18:40)
[2016-09-04] MEDS: INSULIN DETEMIR 100 UNITS/ML MDV SQ SCH (23:09)
[2016-09-05] MEDS: CEFTAZIDIME PENTAHYDRATE 1 GM in DEXTROSE 5%-WATER - 50 ML IVPB SCH ×3 (02:21→18:25)
[2016-09-05] MEDS: morphine CARPU-JECT 2 MG/1 ML DISP.SYRIN IVPUSH PRN (02:21)
[2016-09-05] MEDS: INSULIN SLIDING SCALE (NOVOLOG) 1 VIAL SQ SCH ×4 (06:20→23:13)
[2016-09-05] MEDS: OFLOXACIN 0.3% OPHTHALMIC SOLUTION 5 ML BOTTLE OD SCH ×5 (06:20→22:43)
[2016-09-05] MEDS: ALBUTEROL SO4 0.083% IH SOL 2.5 MG/3 ML VIAL.NEB. NEB SCH ×3 (06:36→18:05)
[2016-09-05 08:03] LABS: ALBUMIN 1.8 g/dl (3.4-5.0); ANION GAP 8 (8-16); CO2 33 mmol/L (21-32); CREATININE 0.3 mg/dL (0.55-1.02); GLUCOSE,RANDOM 170 mg/dL (74-106); MAGNESIUM 1.7 mg/dL (1.8-2.4); SGOT/AST 23 U/L (15-37); SGPT/ALT 27 U/L (12-78); TOT PROT 6.9 g/dl (6.4-8.2)
[2016-09-05 08:04] LABS: ALK PHOS 151 U/L (45-117); BILIRUBIN,TOTAL 0.3 mg/dL (0.2-1.0)
[2016-09-05] MEDS ORDERED: PT OWN MED DRAWER 7, Y5N ONE ×3 (08:59→22:22)
--- NOTE | 2016-09-05 09:09 | PN ---
Progress Note, Physician Chief Complaint: No new complaints - Current Medication List Current Medications: Active Medications Acetaminophen (Tylenol Oral Solution -) 650 mg PO Q6H PRN PRN Reason: FEVER OR PAIN Last Admin: 09/04/16 18:40 Dose: 650 mg Albuterol Sulfate (Ventolin 0.083% Nebulizer Soln -) 1 amp NEB QIDR [facility] Last Admin: 09/05/16 06:36 Dose: 1 amp Alprazolam (Xanax -) 0.5 mg PO Q8H PRN PRN Reason: AGITATION Last Admin: 09/04/16 10:50 Dose: 0.5 mg Chlorhexidine Gluconate (Peridex -) 15 ml MM BID [facility] Last Admin: 09/04/16 23:09 Dose: 15 ml Dextrose (D50w (Vial) -) 50 ml IVPUSH Q15M PRN PRN Reason: BLOOD SUGAR < 60 Enoxaparin Sodium (Lovenox -) 40 mg SQ BID [facility] Last Admin: 09/04/16 23:09 Dose: 40 mg Fentanyl (Duragesic 25mcg Patch -) 1 patch TD Q72H [facility] Last Admin: 09/04/16 15:10 Dose: 1 patch Furosemide (Lasix -) 20 mg GT DAILY [facility] Last Admin: 09/04/16 10:21 Dose: 20 mg Fluconazole (Diflucan 200 Mg/D5w Premixed Ivpb -) 100 mls @ 100 mls/hr IVPB DAILY [facility] Last Admin: 09/04/16 10:21 Dose: 100 mls/hr Ceftazidime 1 gm/ Dextrose 50 mls @ 100 mls/hr IVPB Q8H-IV [facility] PRN Reason: Protocol Last Admin: 09/05/16 02:21 Dose: 100 mls/hr Insulin Aspart (Novolog Vial Sliding Scale -) 1 vial SQ ACHS [facility] PRN Reason: Protocol Last Admin: 09/05/16 06:20 Dose: 2 units Insulin Detemir (Levemir Vial) 18 units SQ HS [facility] Last Admin: 09/04/16 23:09 Dose: 18 units Miscellaneous (Duragesic Patch Waste) 1 each TD PRN PRN PRN Reason: PAIN Last Admin: 09/04/16 15:13 Dose: 1 each Morphine Sulfate (Morphine Injection -) 2 mg IVPUSH Q6H PRN PRN Reason: PAIN Last Admin: 09/05/16 02:21 Dose: 2 mg Ofloxacin (Ocuflox 0.3% Eye Drops -) 1 drop OD Q4HWA [facility] Last Admin: 09/05/16 06:20 Dose: 1 drop Prednisolone Acetate (Pred Forte 1% -) 1 drop OD BID [facility] Last Admin: 09/04/16 23:10 Dose: 1 drop Ranitidine HCl (Zantac Oral Solution -) 150 mg PO BID [facility] Last Admin: 09/04/16 23:09 Dose: 150 mg - Objective Vital Signs: Vital Signs Temperature 98.4 F 09/05/16 05:46 Pulse Rate 98 H 09/05/16 05:46 Respiratory Rate 20 09/05/16 06:37 Blood Pressure 129/50 09/05/16 05:46 O2 Sat by Pulse Oximetry (%) 98 09/02/16 09:00 Constitutional: Yes: Mild Distress Eyes: Yes: WNL HENT: Yes: WNL Neck: Yes: WNL Cardiovascular: Yes: WNL Respiratory: Yes: Mechanically Ventilated Gastrointestinal: Yes: Normal Bowel Sounds Genitourinary: Yes: Bacon Present Musculoskeletal: Yes: WNL Edema: No Psychiatric: Yes: Alert Labs: CBC, BMP 09/03/16 16:50 09/05/16 06:23 INR, PTT INR 1.31 (0.82-1.09) H 08/28/16 10:30 Fibrinogen > 700.0 mg/dL (238-498) H 07/31/16 05:40 Assessment/Plan Feeding rate increased to 60 cc/ hr
[2016-09-05] MEDS: RANITIDINE HCL 150 MG/10 ML UNIT-DOSE CUP PO SCH ×2 (09:45→22:43)
[2016-09-05] MEDS: FLUCONAZOLE 200 MG/D5W 100 ML IVPB SCH (09:46)
[2016-09-05] MEDS: FUROSEMIDE 20 MG TABLET (FP) GT SCH (09:46)
[2016-09-05] MEDS: ENOXAPARIN NA (PORCINE) 40 MG/0.4 ML DISP.SYRIN SQ SCH ×2 (09:46→22:43)
[2016-09-05] MEDS: prednisoLONE ACETATE 1% OPHTH SUSP 5 ML BOTTLE OD SCH ×2 (09:47→22:44)
[2016-09-05] MEDS: CHLORHEXIDINE GLUCONATE 0.12% 15ML CUP MM SCH ×2 (09:47→22:43)
--- NOTE | 2016-09-05 12:48 | PN ---
Progress Note, Physician Chief Complaint: The patient seen in her bed. Vent supported. Maintains good urine output. Tube feeding is well tolerated. Clinical status essentially unchanged. - Current Medication List Current Medications: Active Medications Acetaminophen (Tylenol Oral Solution -) 650 mg PO Q6H PRN PRN Reason: FEVER OR PAIN Last Admin: 09/04/16 18:40 Dose: 650 mg Albuterol Sulfate (Ventolin 0.083% Nebulizer Soln -) 1 amp NEB QIDR [facility] Last Admin: 09/05/16 11:49 Dose: 1 amp Alprazolam (Xanax -) 0.5 mg PO Q8H PRN PRN Reason: AGITATION Last Admin: 09/04/16 10:50 Dose: 0.5 mg Chlorhexidine Gluconate (Peridex -) 15 ml MM BID [facility] Last Admin: 09/05/16 09:47 Dose: 15 ml Dextrose (D50w (Vial) -) 50 ml IVPUSH Q15M PRN PRN Reason: BLOOD SUGAR < 60 Enoxaparin Sodium (Lovenox -) 40 mg SQ BID [facility] Last Admin: 09/05/16 09:46 Dose: 40 mg Fentanyl (Duragesic 25mcg Patch -) 1 patch TD Q72H [facility] Last Admin: 09/04/16 15:10 Dose: 1 patch Furosemide (Lasix -) 20 mg GT DAILY [facility] Last Admin: 09/05/16 09:46 Dose: 20 mg Fluconazole (Diflucan 200 Mg/D5w Premixed Ivpb -) 100 mls @ 100 mls/hr IVPB DAILY [facility] Last Admin: 09/05/16 09:46 Dose: 100 mls/hr Ceftazidime 1 gm/ Dextrose 50 mls @ 100 mls/hr IVPB Q8H-IV [facility] PRN Reason: Protocol Last Admin: 09/05/16 09:45 Dose: 100 mls/hr Insulin Aspart (Novolog Vial Sliding Scale -) 1 vial SQ ACHS [facility] PRN Reason: Protocol Last Admin: 09/05/16 06:20 Dose: 2 units Insulin Detemir (Levemir Vial) 18 units SQ HS [facility] Last Admin: 09/04/16 23:09 Dose: 18 units Miscellaneous (Duragesic Patch Waste) 1 each TD PRN PRN PRN Reason: PAIN Last Admin: 09/04/16 15:13 Dose: 1 each Morphine Sulfate (Morphine Injection -) 2 mg IVPUSH Q6H PRN PRN Reason: PAIN Last Admin: 09/05/16 02:21 Dose: 2 mg Ofloxacin (Ocuflox 0.3% Eye Drops -) 1 drop OD Q4HWA [facility] Last Admin: 09/05/16 09:48 Dose: 1 drop Prednisolone Acetate (Pred Forte 1% -) 1 drop OD BID [facility] Last Admin: 09/05/16 09:47 Dose: 1 drop Ranitidine HCl (Zantac Oral Solution -) 150 mg PO BID [facility] Last Admin: 09/05/16 09:45 Dose: 150 mg - Objective Vital Signs: Vital Signs Temperature 98.4 F 09/05/16 05:46 Pulse Rate 98 H 09/05/16 05:46 Respiratory Rate 44 H 09/05/16 10:53 Blood Pressure 129/50 09/05/16 05:46 O2 Sat by Pulse Oximetry (%) 98 09/02/16 09:00 HENT: Yes: Normocephalic Neck: Yes: Trachea Midline (s/p Tracheostomy) Cardiovascular: Yes: S1, S2 Respiratory: Yes: Regular, Poor Air Entry Gastrointestinal: Yes: Normal Bowel Sounds (G Tube in place), Other Genitourinary: Yes: Bacon Present Labs: CBC, BMP 09/03/16 16:50 09/05/16 06:23 INR, PTT INR 1.31 (0.82-1.09) H 08/28/16 10:30 Fibrinogen > 700.0 mg/dL (238-498) H 07/31/16 05:40 Problem List - Problems (1) Perforated abdominal viscus Code(s): [id number] - (2) ZAHIRA (acute kidney injury) Code(s): N17.9 - ACUTE KIDNEY FAILURE, UNSPECIFIED (3) Hypomagnesemia Code(s): E83.42 - HYPOMAGNESEMIA (4) Metabolic acidemia Code(s): E87.2 - ACIDOSIS (5) Metabolic acidosis Code(s): E87.2 - ACIDOSIS Assessment/Plan 65 y/o female with recent ZAHIRA. Renal functions improved since. S/p Perforated viscus, s/p colectomy. Tube feeding well tolerated. Afebrile . Concur with the current management. Tube feeding dose increased. No specific changes in treatments suggested at this point from renal perspective. Will follow the electrolyte and renal functions. Katty Singer MD
--- NOTE | 2016-09-05 15:01 | PN ---
Progress Note (short form) - Note Progress Note: PULMONARY CHART REVIEWED NO CHANGE IN OVERALL EXAM VENT AND POSITIONING OF PATIENT ADJUSTED WITH NO FURTHER ALARMING BY VENT MEDS/LABS/RADIOGRAPHS/MICRO/NOTES REVIEWED A/P Perforated Duodenal Ulcer Peritonitis s/p ex-lap/omental patch repair 07/16 Enterocutaneous Fistula Acute Respiratory Failure/trach/mvv Septic Shock Lactic Acidosis Leukopenia/Thrombocytopenia likely from sepsis DM DVT Gangrene - antibiotics per ID - taper Fio2 to keep Spo2 >90% - continue anticoagulation - nutrition - have adjusted vent settings - DVT/GI prophylaxis - ENT lulu STARR MD
[2016-09-05 15:18] LABS: BASOPHIL 0.6 % (0-2.0); EOSINOPHIL 1.1 % (0-4.5); MCH 29.5 pg (25.7-33.7); MCHC 33.1 g/dl (32.0-36.0); MEAN PLT VOLUME 7.9 fl (7.5-11.1); NEUTROPHILS 69.2 % (42.8-82.8); PLATELET COUNT 443 K/MM3 (134-434); RDW 15.6 % (11.6-15.6); WHITE BLOOD COUNT 13.3 K/mm3 (4.0-10.0)
--- NOTE | 2016-09-05 16:49 | PN ---
Progress Note, Physician History of Present Illness: still spiking fevers patient spiked to 101 has been afebrile now for couple of hrs - Current Medication List Current Medications: Active Medications Acetaminophen (Tylenol Oral Solution -) 650 mg PO Q6H PRN PRN Reason: FEVER OR PAIN Last Admin: 09/04/16 18:40 Dose: 650 mg Albuterol Sulfate (Ventolin 0.083% Nebulizer Soln -) 1 amp NEB QIDR [facility] Last Admin: 09/05/16 11:49 Dose: 1 amp Alprazolam (Xanax -) 0.5 mg PO Q8H PRN PRN Reason: AGITATION Last Admin: 09/04/16 10:50 Dose: 0.5 mg Chlorhexidine Gluconate (Peridex -) 15 ml MM BID [facility] Last Admin: 09/05/16 09:47 Dose: 15 ml Dextrose (D50w (Vial) -) 50 ml IVPUSH Q15M PRN PRN Reason: BLOOD SUGAR < 60 Enoxaparin Sodium (Lovenox -) 40 mg SQ BID [facility] Last Admin: 09/05/16 09:46 Dose: 40 mg Fentanyl (Duragesic 25mcg Patch -) 1 patch TD Q72H [facility] Last Admin: 09/04/16 15:10 Dose: 1 patch Furosemide (Lasix -) 20 mg GT DAILY [facility] Last Admin: 09/05/16 09:46 Dose: 20 mg Fluconazole (Diflucan 200 Mg/D5w Premixed Ivpb -) 100 mls @ 100 mls/hr IVPB DAILY [facility] Last Admin: 09/05/16 09:46 Dose: 100 mls/hr Ceftazidime 1 gm/ Dextrose 50 mls @ 100 mls/hr IVPB Q8H-IV [facility] PRN Reason: Protocol Last Admin: 09/05/16 09:45 Dose: 100 mls/hr Insulin Aspart (Novolog Vial Sliding Scale -) 1 vial SQ ACHS [facility] PRN Reason: Protocol Last Admin: 09/05/16 13:31 Dose: 4 units Insulin Detemir (Levemir Vial) 18 units SQ HS [facility] Last Admin: 09/04/16 23:09 Dose: 18 units Miscellaneous (Duragesic Patch Waste) 1 each TD PRN PRN PRN Reason: PAIN Last Admin: 09/04/16 15:13 Dose: 1 each Morphine Sulfate (Morphine Injection -) 2 mg IVPUSH Q6H PRN PRN Reason: PAIN Last Admin: 09/05/16 02:21 Dose: 2 mg Ofloxacin (Ocuflox 0.3% Eye Drops -) 1 drop OD Q4HWA [facility] Last Admin: 09/05/16 15:52 Dose: 1 drop Prednisolone Acetate (Pred Forte 1% -) 1 drop OD BID [facility] Last Admin: 09/05/16 09:47 Dose: 1 drop Ranitidine HCl (Zantac Oral Solution -) 150 mg PO BID [facility] Last Admin: 09/05/16 09:45 Dose: 150 mg - Objective Vital Signs: Vital Signs Temperature 98.6 F 09/05/16 15:48 Pulse Rate 120 H 09/05/16 15:48 Respiratory Rate 14 09/05/16 15:48 Blood Pressure 150/90 09/05/16 15:48 O2 Sat by Pulse Oximetry (%) 98 09/02/16 09:00 Constitutional: Yes: No Distress, Calm Cardiovascular: Yes: Regular Rate and Rhythm Respiratory: Yes: Mechanically Ventilated, Rhonchi, Other Gastrointestinal: Yes: Normal Bowel Sounds, Soft, Other (feeding tube in place) Musculoskeletal: Yes: Other Extremities: Yes: Other Neurological: Yes: Alert, Other Psychiatric: Yes: Alert, Other Labs: CBC, BMP 09/05/16 13:30 09/05/16 06:23 INR, PTT INR 1.31 (0.82-1.09) H 08/28/16 10:30 Fibrinogen > 700.0 mg/dL (238-498) H 07/31/16 05:40 Assessment/Plan Problem List - Problems (1) Abdominal pain Code(s): R10.9 - UNSPECIFIED ABDOMINAL PAIN Qualifiers: Qualified Code(s): R10.33 - Periumbilical pain (2) Perforated abdominal viscus Code(s): [id number] - (3) Perforated viscus Code(s): R19.8 - OTH SYMPTOMS AND SIGNS INVOLVING THE DGSTV SYS AND ABDOMEN (4) Hypertension Code(s): I10 - ESSENTIAL (PRIMARY) HYPERTENSION Qualifiers: Qualified Code(s): I10 - Essential (primary) hypertension lactic acidosis fevers generalized swelling gangrene of the tip of the fingers noted pseudomonas pneumonia plan conitnue abx continue as per pul suctioning wbc has started to increases close watch if it increases then will have to scan her tube feeds have increased
[2016-09-05] MEDS ORDERED: INSULIN (NOVOLOG) ASPART 100 UNITS/ML 10ML VIAL ONE (18:37)
[2016-09-05] MEDS: INSULIN DETEMIR 100 UNITS/ML MDV SQ SCH (23:14)
[2016-09-06] MEDS: ALBUTEROL SO4 0.083% IH SOL 2.5 MG/3 ML VIAL.NEB. NEB SCH ×4 (00:10→17:30)
[2016-09-06] MEDS ORDERED: PT OWN MED DRAWER 7, Y5N ONE ×3 (00:56→17:41)
[2016-09-06] MEDS: CEFTAZIDIME PENTAHYDRATE 1 GM in DEXTROSE 5%-WATER - 50 ML IVPB SCH ×3 (01:58→18:06)
[2016-09-06] MEDS: ALPRAZolam 0.25 MG TABLET PO PRN ×3 (04:12→21:09)
[2016-09-06] MEDS: OFLOXACIN 0.3% OPHTHALMIC SOLUTION 5 ML BOTTLE OD SCH ×5 (06:50→21:10)
[2016-09-06] MEDS: INSULIN SLIDING SCALE (NOVOLOG) 1 VIAL SQ SCH ×4 (06:52→21:09)
[2016-09-06] MEDS: ACETAMINOPHEN 650 MG/20.3 ML ORAL SOLUTION (CUPS) PO PRN ×2 (06:56→13:53)
[2016-09-06] MEDS: FUROSEMIDE 20 MG TABLET (FP) GT SCH (10:54)
[2016-09-06] MEDS: RANITIDINE HCL 150 MG/10 ML UNIT-DOSE CUP PO SCH ×2 (10:54→21:09)
[2016-09-06] MEDS: prednisoLONE ACETATE 1% OPHTH SUSP 5 ML BOTTLE OD SCH ×2 (10:55→21:10)
[2016-09-06] MEDS: CHLORHEXIDINE GLUCONATE 0.12% 15ML CUP MM SCH ×2 (10:55→21:10)
[2016-09-06] MEDS: ENOXAPARIN NA (PORCINE) 40 MG/0.4 ML DISP.SYRIN SQ SCH ×2 (10:55→21:09)
[2016-09-06] MEDS: FLUCONAZOLE 200 MG/D5W 100 ML IVPB SCH (12:12)
--- NOTE | 2016-09-06 12:13 | PN ---
Progress Note (short form) - Note Progress Note: PULMONARY CHART REVIEWED REMAINS INTERMITTANTLY FEBRILE NO CHANGE IN OVERALL EXAM VENT AND POSITIONING OF PATIENT ADJUSTED WITH NO FURTHER ALARMING BY VENT MEDS/LABS/RADIOGRAPHS/MICRO/NOTES REVIEWED A/P Perforated Duodenal Ulcer Peritonitis s/p ex-lap/omental patch repair 07/16 Enterocutaneous Fistula Acute Respiratory Failure/trach/mvv Septic Shock Lactic Acidosis Leukopenia/Thrombocytopenia likely from sepsis DM DVT Gangrene - antibiotics per ID - taper Fio2 to keep Spo2 >90% - continue anticoagulation - nutrition - have adjusted vent settings - DVT/GI prophylaxis - ENT lulu STARR MD
--- NOTE | 2016-09-06 12:33 | PN ---
Progress Note, Physician Chief Complaint: The patient seen in her bed. Vent supported. Maintains good urine output. Low grade fever persists. - Current Medication List Current Medications: Active Medications Acetaminophen (Tylenol Oral Solution -) 650 mg PO Q6H PRN PRN Reason: FEVER OR PAIN Last Admin: 09/06/16 06:56 Dose: 650 mg Albuterol Sulfate (Ventolin 0.083% Nebulizer Soln -) 1 amp NEB QIDR [facility] Last Admin: 09/06/16 07:00 Dose: 1 amp Alprazolam (Xanax -) 0.5 mg PO Q6H PRN PRN Reason: AGITATION Chlorhexidine Gluconate (Peridex -) 15 ml MM BID [facility] Last Admin: 09/06/16 10:55 Dose: 15 ml Dextrose (D50w (Vial) -) 50 ml IVPUSH Q15M PRN PRN Reason: BLOOD SUGAR < 60 Enoxaparin Sodium (Lovenox -) 40 mg SQ BID [facility] Last Admin: 09/06/16 10:55 Dose: 40 mg Fentanyl (Duragesic 25mcg Patch -) 1 patch TD Q72H [facility] Last Admin: 09/04/16 15:10 Dose: 1 patch Furosemide (Lasix -) 20 mg GT DAILY [facility] Last Admin: 09/06/16 10:54 Dose: 20 mg Fluconazole (Diflucan 200 Mg/D5w Premixed Ivpb -) 100 mls @ 100 mls/hr IVPB DAILY [facility] Last Admin: 09/06/16 12:12 Dose: 100 mls/hr Ceftazidime 1 gm/ Dextrose 50 mls @ 100 mls/hr IVPB Q8H-IV [facility] PRN Reason: Protocol Last Admin: 09/06/16 10:54 Dose: 100 mls/hr Insulin Aspart (Novolog Vial Sliding Scale -) 1 vial SQ ACHS [facility] PRN Reason: Protocol Last Admin: 09/06/16 12:19 Dose: 4 units Insulin Detemir (Levemir Vial) 18 units SQ HS [facility] Last Admin: 09/05/16 23:14 Dose: 18 units Miscellaneous (Duragesic Patch Waste) 1 each TD PRN PRN PRN Reason: PAIN Last Admin: 09/04/16 15:13 Dose: 1 each Ofloxacin (Ocuflox 0.3% Eye Drops -) 1 drop OD Q4HWA [facility] Last Admin: 09/06/16 10:55 Dose: 1 drop Prednisolone Acetate (Pred Forte 1% -) 1 drop OD BID [facility] Last Admin: 09/06/16 10:55 Dose: 1 drop Ranitidine HCl (Zantac Oral Solution -) 150 mg PO BID [facility] Last Admin: 09/06/16 10:54 Dose: 150 mg - Objective Vital Signs: Vital Signs Temperature 99.4 F 09/06/16 06:13 Pulse Rate 106 H 09/06/16 02:04 Respiratory Rate 18 09/06/16 06:50 Blood Pressure 131/88 09/06/16 02:04 O2 Sat by Pulse Oximetry (%) 96 09/06/16 09:40 Cardiovascular: Yes: Regular Rate and Rhythm, S1, S2 Respiratory: Yes: Diminished, Rhonchi Gastrointestinal: Yes: Soft (G tube in place.) Genitourinary: Yes: Bacon Present Labs: CBC, BMP 09/05/16 13:30 09/05/16 06:23 INR, PTT INR 1.31 (0.82-1.09) H 08/28/16 10:30 Fibrinogen > 700.0 mg/dL (238-498) H 07/31/16 05:40 Problem List - Problems (1) Perforated abdominal viscus Code(s): [id number] - (2) ZAHIRA (acute kidney injury) Code(s): N17.9 - ACUTE KIDNEY FAILURE, UNSPECIFIED (3) Hypomagnesemia Code(s): E83.42 - HYPOMAGNESEMIA (4) Metabolic acidemia Code(s): E87.2 - ACIDOSIS (5) Metabolic acidosis Code(s): E87.2 - ACIDOSIS Assessment/Plan 65 y/o female with recent ZAHIRA. Renal functions improved since. S/p Perforated viscus, s/p colectomy. Tube feeding well tolerated. Irregular fever spikes. On IV Abx. Tube feeding dose increased. No specific changes in treatments suggested at this point from renal perspective. Will follow the electrolyte and renal functions PRN. Katty Singer MD
--- NOTE | 2016-09-06 13:28 | PN ---
Progress Note, Physician - Current Medication List Current Medications: Active Medications Acetaminophen (Tylenol Oral Solution -) 650 mg PO Q6H PRN PRN Reason: FEVER OR PAIN Last Admin: 09/06/16 06:56 Dose: 650 mg Albuterol Sulfate (Ventolin 0.083% Nebulizer Soln -) 1 amp NEB QIDR [facility] Last Admin: 09/06/16 07:00 Dose: 1 amp Alprazolam (Xanax -) 0.5 mg PO Q6H PRN PRN Reason: AGITATION Chlorhexidine Gluconate (Peridex -) 15 ml MM BID [facility] Last Admin: 09/06/16 10:55 Dose: 15 ml Dextrose (D50w (Vial) -) 50 ml IVPUSH Q15M PRN PRN Reason: BLOOD SUGAR < 60 Enoxaparin Sodium (Lovenox -) 40 mg SQ BID [facility] Last Admin: 09/06/16 10:55 Dose: 40 mg Fentanyl (Duragesic 25mcg Patch -) 1 patch TD Q72H [facility] Last Admin: 09/04/16 15:10 Dose: 1 patch Furosemide (Lasix -) 20 mg GT DAILY [facility] Last Admin: 09/06/16 10:54 Dose: 20 mg Fluconazole (Diflucan 200 Mg/D5w Premixed Ivpb -) 100 mls @ 100 mls/hr IVPB DAILY [facility] Last Admin: 09/06/16 12:12 Dose: 100 mls/hr Ceftazidime 1 gm/ Dextrose 50 mls @ 100 mls/hr IVPB Q8H-IV [facility] PRN Reason: Protocol Last Admin: 09/06/16 10:54 Dose: 100 mls/hr Insulin Aspart (Novolog Vial Sliding Scale -) 1 vial SQ ACHS [facility] PRN Reason: Protocol Last Admin: 09/06/16 12:19 Dose: 4 units Insulin Detemir (Levemir Vial) 18 units SQ HS [facility] Last Admin: 09/05/16 23:14 Dose: 18 units Miscellaneous (Duragesic Patch Waste) 1 each TD PRN PRN PRN Reason: PAIN Last Admin: 09/04/16 15:13 Dose: 1 each Ofloxacin (Ocuflox 0.3% Eye Drops -) 1 drop OD Q4HWA [facility] Last Admin: 09/06/16 10:55 Dose: 1 drop Prednisolone Acetate (Pred Forte 1% -) 1 drop OD BID [facility] Last Admin: 09/06/16 10:55 Dose: 1 drop Ranitidine HCl (Zantac Oral Solution -) 150 mg PO BID [facility] Last Admin: 09/06/16 10:54 Dose: 150 mg - Objective Vital Signs: Vital Signs Temperature 99.4 F 09/06/16 06:13 Pulse Rate 106 H 09/06/16 02:04 Respiratory Rate 18 09/06/16 06:50 Blood Pressure 131/88 09/06/16 02:04 O2 Sat by Pulse Oximetry (%) 96 09/06/16 09:40 Labs: CBC, BMP 09/05/16 13:30 09/05/16 06:23 INR, PTT INR 1.31 (0.82-1.09) H 08/28/16 10:30 Fibrinogen > 700.0 mg/dL (238-498) H 07/31/16 05:40 Problem List - Problems (1) Abdominal pain Code(s): R10.9 - UNSPECIFIED ABDOMINAL PAIN Qualifiers: Qualified Code(s): R10.33 - Periumbilical pain (2) Perforated abdominal viscus Code(s): [id number] - (3) Perforated viscus Code(s): R19.8 - OTH SYMPTOMS AND SIGNS INVOLVING THE DGSTV SYS AND ABDOMEN (4) Hypertension Code(s): I10 - ESSENTIAL (PRIMARY) HYPERTENSION Qualifiers: Qualified Code(s): I10 - Essential (primary) hypertension Assessment/Plan Surgery: patient is tolerating g-tube feeding with 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 Albumin [place] slowly improving. WBc [id number]. Abdominal wound granulating , with some slough. Continue nutritional support.
--- NOTE | 2016-09-06 15:47 | PN ---
Progress Note, Physician Chief Complaint: No new complaints - Current Medication List Current Medications: Active Medications Acetaminophen (Tylenol Oral Solution -) 650 mg PO Q6H PRN PRN Reason: FEVER OR PAIN Last Admin: 09/06/16 13:53 Dose: 650 mg Albuterol Sulfate (Ventolin 0.083% Nebulizer Soln -) 1 amp NEB QIDR [facility] Last Admin: 09/06/16 11:15 Dose: 1 amp Alprazolam (Xanax -) 0.5 mg PO Q6H PRN PRN Reason: AGITATION Chlorhexidine Gluconate (Peridex -) 15 ml MM BID [facility] [place] Last Admin: 09/06/16 10:55 Dose: 15 ml Dextrose (D50w (Vial) -) 50 ml IVPUSH Q15M PRN PRN Reason: BLOOD SUGAR < 60 Enoxaparin Sodium (Lovenox -) 40 mg SQ BID [facility] [place] Last Admin: 09/06/16 10:55 Dose: 40 mg Fentanyl (Duragesic 25mcg Patch -) 1 patch TD Q72H [facility] [place] Last Admin: 09/04/16 15:10 Dose: 1 patch Furosemide (Lasix -) 20 mg GT DAILY [facility] [place] Last Admin: 09/06/16 10:54 Dose: 20 mg Fluconazole (Diflucan 200 Mg/D5w Premixed Ivpb -) 100 mls @ 100 mls/hr IVPB DAILY [facility] [place] Last Admin: 09/06/16 12:12 Dose: 100 mls/hr Ceftazidime 1 gm/ Dextrose 50 mls @ 100 mls/hr IVPB Q8H-IV [facility] PRN Reason: Protocol Last Admin: 09/06/16 10:54 Dose: 100 mls/hr Insulin Aspart (Novolog Vial Sliding Scale -) 1 vial SQ ACHS [facility] PRN Reason: Protocol Last Admin: 09/06/16 12:19 Dose: 4 units Insulin Detemir (Levemir Vial) 18 units SQ HS [facility] [place] Last Admin: 09/05/16 23:14 Dose: 18 units Miscellaneous (Duragesic Patch Waste) 1 each TD PRN PRN PRN Reason: PAIN Last Admin: 09/04/16 15:13 Dose: 1 each Ofloxacin (Ocuflox 0.3% Eye Drops -) 1 drop OD Q4HWA [facility] [place] Last Admin: 09/06/16 10:55 Dose: 1 drop Prednisolone Acetate (Pred Forte 1% -) 1 drop OD BID [facility] [place] Last Admin: 09/06/16 10:55 Dose: 1 drop Ranitidine HCl (Zantac Oral Solution -) 150 mg PO BID [facility] [place] Last Admin: 09/06/16 10:54 Dose: 150 mg - Objective Vital Signs: Vital Signs Temperature 99.4 F 09/06/16 06:13 Pulse Rate 106 H 09/06/16 02:04 Respiratory Rate 18 09/06/16 06:50 Blood Pressure 131/88 09/06/16 02:04 O2 Sat by Pulse Oximetry (%) 96 09/06/16 09:40 Constitutional: Yes: Mild Distress Eyes: Yes: WNL HENT: Yes: WNL Neck: Yes: WNL Cardiovascular: Yes: Tachycardia Respiratory: Yes: Mechanically Ventilated Gastrointestinal: Yes: Normal Bowel Sounds Labs: CBC, BMP 09/05/16 13:30 09/05/16 06:23 INR, PTT INR 1.31 (0.82-1.09) H 08/28/16 10:30 Fibrinogen > 700.0 mg/dL (238-498) H 07/31/16 05:40 - ....Imaging X-ray: Report Reviewed
[2016-09-06] MEDS: morphine CARPU-JECT 2 MG/1 ML DISP.SYRIN IVPUSH PRN (17:14)
--- NOTE | 2016-09-06 17:26 | PN ---
Progress Note, Physician History of Present Illness: fevers improving patient stable minimal secretions patient has loose stools - Current Medication List Current Medications: Active Medications Acetaminophen (Tylenol Oral Solution -) 650 mg PO Q6H PRN PRN Reason: FEVER OR PAIN Last Admin: 09/06/16 13:53 Dose: 650 mg Albuterol Sulfate (Ventolin 0.083% Nebulizer Soln -) 1 amp NEB QIDR [facility] Last Admin: 09/06/16 11:15 Dose: 1 amp Alprazolam (Xanax -) 0.5 mg PO Q6H PRN PRN Reason: AGITATION Chlorhexidine Gluconate (Peridex -) 15 ml MM BID [facility] Last Admin: 09/06/16 10:55 Dose: 15 ml Dextrose (D50w (Vial) -) 50 ml IVPUSH Q15M PRN PRN Reason: BLOOD SUGAR < 60 Enoxaparin Sodium (Lovenox -) 40 mg SQ BID [facility] Last Admin: 09/06/16 10:55 Dose: 40 mg Fentanyl (Duragesic 25mcg Patch -) 1 patch TD Q72H [facility] Last Admin: 09/04/16 15:10 Dose: 1 patch Furosemide (Lasix -) 20 mg GT DAILY [facility] Last Admin: 09/06/16 10:54 Dose: 20 mg Fluconazole (Diflucan 200 Mg/D5w Premixed Ivpb -) 100 mls @ 100 mls/hr IVPB DAILY [facility] Last Admin: 09/06/16 12:12 Dose: 100 mls/hr Ceftazidime 1 gm/ Dextrose 50 mls @ 100 mls/hr IVPB Q8H-IV [facility] PRN Reason: Protocol Last Admin: 09/06/16 10:54 Dose: 100 mls/hr Insulin Aspart (Novolog Vial Sliding Scale -) 1 vial SQ ACHS [facility] PRN Reason: Protocol Last Admin: 09/06/16 12:19 Dose: 4 units Insulin Detemir (Levemir Vial) 18 units SQ HS [facility] Last Admin: 09/05/16 23:14 Dose: 18 units Miscellaneous (Duragesic Patch Waste) 1 each TD PRN PRN PRN Reason: PAIN Last Admin: 09/04/16 15:13 Dose: 1 each Morphine Sulfate (Morphine Injection -) 2 mg IVPUSH Q4H PRN PRN Reason: PAIN Ofloxacin (Ocuflox 0.3% Eye Drops -) 1 drop OD Q4HWA [facility] Last Admin: 09/06/16 10:55 Dose: 1 drop Prednisolone Acetate (Pred Forte 1% -) 1 drop OD BID [facility] Last Admin: 09/06/16 10:55 Dose: 1 drop Ranitidine HCl (Zantac Oral Solution -) 150 mg PO BID [facility] Last Admin: 09/06/16 10:54 Dose: 150 mg - Objective Vital Signs: Vital Signs Temperature 99.8 F H 09/06/16 14:36 Pulse Rate 88 09/06/16 14:36 Respiratory Rate 14 09/06/16 14:36 Blood Pressure 113/53 09/06/16 14:36 O2 Sat by Pulse Oximetry (%) 96 09/06/16 09:40 Constitutional: Yes: Other HENT: Yes: Other (trach in place) Neck: Yes: Other Cardiovascular: Yes: Regular Rate and Rhythm Respiratory: Yes: Mechanically Ventilated, Other (trach) Gastrointestinal: Yes: Normal Bowel Sounds, Soft Musculoskeletal: Yes: Other Extremities: Yes: Other (gangrene) Neurological: Yes: Alert Psychiatric: Yes: Alert Labs: CBC, BMP 09/05/16 13:30 09/05/16 06:23 INR, PTT INR 1.31 (0.82-1.09) H 08/28/16 10:30 Fibrinogen > 700.0 mg/dL (238-498) H 07/31/16 05:40 Assessment/Plan Problem List - Problems (1) Abdominal pain Code(s): R10.9 - UNSPECIFIED ABDOMINAL PAIN Qualifiers: Qualified Code(s): R10.33 - Periumbilical pain (2) Perforated abdominal viscus Code(s): HSO0007 - (3) Perforated viscus Code(s): R19.8 - OTH SYMPTOMS AND SIGNS INVOLVING THE DGSTV SYS AND ABDOMEN (4) Hypertension Code(s): I10 - ESSENTIAL (PRIMARY) HYPERTENSION Qualifiers: Qualified Code(s): I10 - Essential (primary) hypertension lactic acidosis fevers generalized swelling gangrene of the tip of the fingers noted pseudomonas pneumonia plan conitnue abx continue as per pul suctioning
[2016-09-06] MEDS: INSULIN DETEMIR 100 UNITS/ML MDV SQ SCH (21:09)
[2016-09-07] MEDS: CEFTAZIDIME PENTAHYDRATE 1 GM in DEXTROSE 5%-WATER - 50 ML IVPB SCH ×3 (01:19→17:56)
[2016-09-07] MEDS: morphine CARPU-JECT 2 MG/1 ML DISP.SYRIN IVPUSH PRN ×3 (01:20→17:44)
[2016-09-07] MEDS: OFLOXACIN 0.3% OPHTHALMIC SOLUTION 5 ML BOTTLE OD SCH ×5 (05:13→23:00)
[2016-09-07] MEDS: ALPRAZolam 0.25 MG TABLET PO PRN ×3 (05:22→17:38)
[2016-09-07] MEDS: ACETAMINOPHEN 650 MG/20.3 ML ORAL SOLUTION (CUPS) PO PRN (05:22)
[2016-09-07] MEDS: INSULIN SLIDING SCALE (NOVOLOG) 1 VIAL SQ SCH ×4 (06:29→23:00)
[2016-09-07] MEDS ORDERED: PT OWN MED DRAWER 7, Y5N ONE ×2 (11:31→17:54)
[2016-09-07] MEDS: FLUCONAZOLE 200 MG/D5W 100 ML IVPB SCH (11:43)
[2016-09-07] MEDS: RANITIDINE HCL 150 MG/10 ML UNIT-DOSE CUP PO SCH ×2 (11:49→23:00)
[2016-09-07] MEDS: FUROSEMIDE 20 MG TABLET (FP) GT SCH (11:49)
[2016-09-07] MEDS: ENOXAPARIN NA (PORCINE) 40 MG/0.4 ML DISP.SYRIN SQ SCH ×2 (11:50→23:00)
[2016-09-07] MEDS: CHLORHEXIDINE GLUCONATE 0.12% 15ML CUP MM SCH ×2 (11:50→23:00)
--- NOTE | 2016-09-07 11:59 | PN ---
Progress Note (short form) - Note Progress Note: PULMONARY CHART REVIEWED REMAINS INTERMITTENTLY FEBRILE NO CHANGE IN OVERALL EXAM VENT AND POSITIONING OF PATIENT ADJUSTED WITH NO FURTHER ALARMING BY VENT MEDS/LABS/RADIOGRAPHS/MICRO/NOTES REVIEWED A/P Perforated Duodenal Ulcer Peritonitis s/p ex-lap/omental patch repair 07/16 Enterocutaneous Fistula Acute Respiratory Failure/trach/mvv Septic Shock Lactic Acidosis Leukopenia/Thrombocytopenia likely from sepsis DM DVT Gangrene - antibiotics per ID - taper Fio2 to keep Spo2 >90% - continue anticoagulation - nutrition - have adjusted vent settings - DVT/GI prophylaxis - ENT lulu STARR MD
[2016-09-07] MEDS: prednisoLONE ACETATE 1% OPHTH SUSP 5 ML BOTTLE OD SCH ×2 (12:13→23:00)
--- NOTE | 2016-09-07 13:04 | PN ---
Progress Note, Physician Chief Complaint: No new complaints - Current Medication List Current Medications: Active Medications Acetaminophen (Tylenol Oral Solution -) 650 mg PO Q6H PRN PRN Reason: FEVER OR PAIN Last Admin: 09/07/16 05:22 Dose: 650 mg Alprazolam (Xanax -) 0.5 mg PO Q6H PRN PRN Reason: AGITATION Last Admin: 09/07/16 05:22 Dose: 0.5 mg Chlorhexidine Gluconate (Peridex -) 15 ml MM BID [facility] Last Admin: 09/07/16 11:50 Dose: 15 ml Dextrose (D50w (Vial) -) 50 ml IVPUSH Q15M PRN PRN Reason: BLOOD SUGAR < 60 Enoxaparin Sodium (Lovenox -) 40 mg SQ BID [facility] Last Admin: 09/07/16 11:50 Dose: 40 mg Fentanyl (Duragesic 25mcg Patch -) 1 patch TD Q72H [facility] Last Admin: 09/04/16 15:10 Dose: 1 patch Furosemide (Lasix -) 20 mg GT DAILY [facility] Last Admin: 09/07/16 11:49 Dose: 20 mg Fluconazole (Diflucan 200 Mg/D5w Premixed Ivpb -) 100 mls @ 100 mls/hr IVPB DAILY [facility] Last Admin: 09/07/16 11:43 Dose: 100 mls/hr Ceftazidime 1 gm/ Dextrose 50 mls @ 100 mls/hr IVPB Q8H-IV [facility] PRN Reason: Protocol Last Admin: 09/07/16 11:43 Dose: 100 mls/hr Insulin Aspart (Novolog Vial Sliding Scale -) 1 vial SQ ACHS [facility] PRN Reason: Protocol Last Admin: 09/07/16 11:43 Dose: Not Given Insulin Detemir (Levemir Vial) 18 units SQ HS [facility] Last Admin: 09/06/16 21:09 Dose: 18 units Miscellaneous (Duragesic Patch Waste) 1 each TD PRN PRN PRN Reason: PAIN Last Admin: 09/04/16 15:13 Dose: 1 each Morphine Sulfate (Morphine Injection -) 2 mg IVPUSH Q4H PRN PRN Reason: PAIN Last Admin: 09/07/16 01:20 Dose: 2 mg Ofloxacin (Ocuflox 0.3% Eye Drops -) 1 drop OD Q4HWA [facility] Last Admin: 09/07/16 10:13 Dose: 1 drop Prednisolone Acetate (Pred Forte 1% -) 1 drop OD BID [facility] Last Admin: 09/07/16 12:13 Dose: 1 drop Ranitidine HCl (Zantac Oral Solution -) 150 mg PO BID [facility] Last Admin: 09/07/16 11:49 Dose: 150 mg - Objective Vital Signs: Vital Signs Temperature 101.0 F H 09/07/16 05:00 Pulse Rate 81 09/07/16 06:00 Respiratory Rate 20 09/07/16 10:00 Blood Pressure 110/63 09/07/16 06:00 O2 Sat by Pulse Oximetry (%) 96 09/06/16 09:40 Constitutional: Yes: Mild Distress Eyes: Yes: WNL HENT: Yes: WNL Neck: Yes: WNL Cardiovascular: Yes: Regular Rate and Rhythm Respiratory: Yes: Mechanically Ventilated Gastrointestinal: Yes: Normal Bowel Sounds ...Rectal Exam: Yes: WNL Genitourinary: Yes: Bacon Present Edema: No Neurological: Yes: Oriented Labs: CBC, BMP 09/05/16 13:30 09/05/16 06:23 INR, PTT INR 1.31 (0.82-1.09) H 08/28/16 10:30 Fibrinogen > 700.0 mg/dL (238-498) H 07/31/16 05:40 Assessment/Plan Continue same trt
--- NOTE | 2016-09-07 16:57 | PN ---
Progress Note, Physician History of Present Illness: clinically no change patient status quo - Current Medication List Current Medications: Active Medications Acetaminophen (Tylenol Oral Solution -) 650 mg PO Q6H PRN PRN Reason: FEVER OR PAIN Last Admin: 09/07/16 05:22 Dose: 650 mg Alprazolam (Xanax -) 0.5 mg PO Q6H PRN PRN Reason: AGITATION Last Admin: 09/07/16 05:22 Dose: 0.5 mg Chlorhexidine Gluconate (Peridex -) 15 ml MM BID [facility] Last Admin: 09/07/16 11:50 Dose: 15 ml Dextrose (D50w (Vial) -) 50 ml IVPUSH Q15M PRN PRN Reason: BLOOD SUGAR < 60 Enoxaparin Sodium (Lovenox -) 40 mg SQ BID [facility] Last Admin: 09/07/16 11:50 Dose: 40 mg Enoxaparin Sodium (Lovenox -) 40 mg SQ BID [facility] Fluconazole (Diflucan -) 100 mg PO DAILY [facility] Furosemide (Lasix -) 20 mg GT DAILY [facility] Last Admin: 09/07/16 11:49 Dose: 20 mg Fluconazole (Diflucan 200 Mg/D5w Premixed Ivpb -) 100 mls @ 100 mls/hr IVPB DAILY [facility] Last Admin: 09/07/16 11:43 Dose: 100 mls/hr Ceftazidime 1 gm/ Dextrose 50 mls @ 100 mls/hr IVPB Q8H-IV [facility] PRN Reason: Protocol Last Admin: 09/07/16 11:43 Dose: 100 mls/hr Insulin Aspart (Novolog Vial Sliding Scale -) 1 vial SQ ACHS [facility] PRN Reason: Protocol Last Admin: 09/07/16 11:43 Dose: Not Given Insulin Detemir (Levemir Vial) 18 units SQ HS [facility] Last Admin: 09/06/16 21:09 Dose: 18 units Miscellaneous (Duragesic Patch Waste) 1 each TD PRN PRN PRN Reason: PAIN Last Admin: 09/04/16 15:13 Dose: 1 each Morphine Sulfate (Morphine Injection -) 2 mg IVPUSH Q4H PRN PRN Reason: PAIN Last Admin: 09/07/16 13:35 Dose: 2 mg Ofloxacin (Ocuflox 0.3% Eye Drops -) 1 drop OD Q4HWA [facility] Last Admin: 09/07/16 10:13 Dose: 1 drop Prednisolone Acetate (Pred Forte 1% -) 1 drop OD BID [facility] Last Admin: 09/07/16 12:13 Dose: 1 drop Ranitidine HCl (Zantac Oral Solution -) 150 mg PO BID [facility] Last Admin: 09/07/16 11:49 Dose: 150 mg - Objective Vital Signs: Vital Signs Temperature 97.7 F 09/07/16 16:02 Pulse Rate 101 H 09/07/16 16:02 Respiratory Rate 19 09/07/16 16:02 Blood Pressure 117/56 09/07/16 16:02 O2 Sat by Pulse Oximetry (%) 96 09/06/16 09:40 Constitutional: Yes: Other Neck: Yes: Other Cardiovascular: Yes: Regular Rate and Rhythm Respiratory: Yes: Mechanically Ventilated, Other Gastrointestinal: Yes: Soft Musculoskeletal: Yes: Other Extremities: Yes: Other Neurological: Yes: Alert, Other Labs: CBC, BMP 09/05/16 13:30 09/05/16 06:23 INR, PTT INR 1.31 (0.82-1.09) H 08/28/16 10:30 Fibrinogen > 700.0 mg/dL (238-498) H 07/31/16 05:40 Assessment/Plan Problem List - Problems (1) Abdominal pain Code(s): R10.9 - UNSPECIFIED ABDOMINAL PAIN Qualifiers: Qualified Code(s): R10.33 - Periumbilical pain (2) Perforated abdominal viscus Code(s): AII3008 - (3) Perforated viscus Code(s): R19.8 - OTH SYMPTOMS AND SIGNS INVOLVING THE DGSTV SYS AND ABDOMEN (4) Hypertension Code(s): I10 - ESSENTIAL (PRIMARY) HYPERTENSION Qualifiers: Qualified Code(s): I10 - Essential (primary) hypertension lactic acidosis fevers generalized swelling gangrene of the tip of the fingers noted pseudomonas pneumonia plan conitnue abx continue as per pul suctioning
[2016-09-07] MEDS: FENTANYL PATCH WASTE TD PRN (19:14)
--- NOTE | 2016-09-07 21:51 | RAPID ---
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 Patient is on a trach and ventilator. Code 99 was called when patient was found unresponsive by the nurse. I responded and CPR was initiated and conducted as per ACLS protocol. Total Duration was 5 minutes Initially patient's heart rhythm was found to be PEA. ACLS was started at 21: 27. First Epinephrine was given at 21:30 with ROSC at 21:32. Heart Rhythm was sinus tachycardia in the 120's. BP: 127/83 TEMP: 98.0 Rectally Drugs given: Epinephrine x1 @21:30 No intubation required as patient is already has a tracheostomy and ventilated No lines placed Result of code: ROSC Next of Kin notified PCP notified LABS ordered: -CBC -CMP -Phosphorous -Magnesium -INR -Cardiac profile -Lactic Acid -ABG -EKG -CXR -KUB Critical Care Total Critical Care Time (in minutes): 45 Critical Care Statement: The care of this patient involved high complexity decision making to prevent further life threatening deterioration of the patient 's condition and/or to evalute & treat vital organ system(s) failure or risk of failure.
[2016-09-07 21:58] LABS: ARTERIAL BLOOD GAS pH 7.13 (7.35-7.45)
[2016-09-07 21:59] LABS: ALLENS TEST POSITIVE; ART PUNCT SITE RIGHT BRACHIAL; ARTERIAL BLD GAS O2 SATURATION 98.5 % (90-98.9); ARTERIAL BLOOD GAS BASE EXCESS -1.9 meq/l (-2-2); ARTERIAL BLOOD GAS HCO3 27.9 meq/L (22-26); LPM/O2% 100%; MECH. VENT. Y; PT. ON O2? YES; TYPE OF O2 VENT; VENT RATE 12; VT/PRESS 15
[2016-09-07] MEDS: INSULIN DETEMIR 100 UNITS/ML MDV SQ SCH (22:00)
--- NOTE | 2016-09-07 22:23 | HOSP ---
Subjective - Review of Symptoms Subjective: CODE 99 called for PEA EPI X1 given ROSC Physical: VS: Vital Signs Period Temp Pulse Resp BP Sys/Major Pulse Ox Last 24 Hr 97.6 F-101.0 F 81-101 14-22 110-117/56-63 GEN: [id number] HEENT: Trach in place, PERRRL CARD: S tach S1, S2 Abd: BSx4 EXT: Necrotic toes, Radial pulses intact Pt. transferred to ICU Dr. Miranda and family need to be notified. 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
[2016-09-07] MEDS ORDERED: ALBUTEROL SO4 0.083% IH SOL 2.5 MG/3 ML VIAL.NEB. NEB ONE (22:52)
[2016-09-07 23:11] LABS: MCH 27.4 pg (25.7-33.7); MCHC 31.1 g/dl (32.0-36.0); MEAN CELL VOLUME 88.1 fl (80-96); MEAN PLT VOLUME 7.7 fl (7.5-11.1); PLATELET COUNT 455 K/MM3 (134-434); RDW 16.2 % (11.6-15.6); WHITE BLOOD COUNT 21.6 K/mm3 (4.0-10.0)
--- NOTE | 2016-09-07 23:18 | CONSULT ---
Consult Consult Specialty:: Pulm/CCM MEMBERSHIP SOLICITOR - History of Present Illness Chief Complaint: PEA arrest m/l 2/2 severe respiratory acidosis History of Present Illness: 65yow with PMHx of DMII, HTN, Dementia who has had a long and complicated hospital course including a perforated viscous c/b peritonitis and a gastric/ duodenal fistula requiring a long ICU stay for septic shock which was c/b extremity ischemia and necrosis , difficult vent wean s/p trach with continuous vent support. Her course is also complicated by MDR pseudomonas and acineterbacter PNA and abd wound infection. Now transferred to ICU s/p PEA arrest in the setting of acute on chronic hypercarbic respiratory failure with ROSC after ~6mins CPR and EPI x1. As per report pt has had repeated episodes of difficult ventilation with high peak pressures in setting of large amt of tracheal secretions. Today pt became unresponsive after turning for cleaning and a code 99 was called. Pt was pulseless on exam by the hospitalists and CPR was started. ROSC was acheived after 1dose of epinephrine with HR 120's BP 127/83 O2 sat 98%. ABG at the time 7.13, 87, 158. She was transferred to ICU. In ICU pt HD stable but with one episode of bradycardia to 50. Pt difficult to bag with minimal air movement and wheeze.PIP>100. Albuterol nebs started. Ambu bag , lavage and suctioned for moderate amt thick blood tinged secretions but with difficulty passing suction cath. CXR showed diffuse opacities and bilat effusion. Able to ambu and suction to PIP50's-60's. [id number]'s Called pt's Teodoro and spoke to him and her daughter Polly. Told them her prognosis is worse and that she had a high risk of arresting again.They confirmed that they would like to make the effort at resuscitation if her heart stopped again. Hypotensive o/n 2L LR given. 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 Cardio/Vascular: Yes: HTN Gastrointestinal: Yes: Other (Perforated viscus) ...: No - Past Surgical History Past Surgical History: Yes: Colostomy - Alcohol/Substance Use Hx Alcohol Use: Yes (2 beers daily) - Smoking History Smoking history: Never smoked Have you smoked in the past 12 months: No If you are a former smoker, when did you quit?: ONE YRS AGO - Social History Usual Living Arrangement: With Spouse Home Medications - Allergies Allergies/Adverse Reactions: Allergies Allergy/AdvReac Type Severity Reaction Status Date / Time No Known Drug Allergies Allergy Verified 07/16/16 09:56 - Home Medications Home Medications: Ambulatory Orders Glipizide Xl [Glucotrol Xl -] 5 mg PO DAILY 01/30/16 Lisinopril [Zestril] 30 mg PO DAILY 01/30/16 Metformin HCl [Metformin HCl ER] 1,000 mg PO BIDAC 01/30/16 Simvastatin 10 mg PO HS 01/30/16 Aspirin Coated [Ecotrin -] 81 mg PO DAILY 04/15/16 Family Disease History - Family Disease History Family History: Unable to Obtain Review of Systems Unable to obtain ROS, reason: Trach, unresponsive Physical Exam Vital Signs: Vital Signs Temperature 97.6 F 09/07/16 18:37 Pulse Rate 81 09/07/16 18:37 Respiratory Rate 16 09/07/16 18:37 Blood Pressure 111/62 09/07/16 18:37 O2 Sat by Pulse Oximetry (%) 96 09/06/16 09:40 Constitutional: Yes: Diaphoresis Eyes: Yes: PERRL HENT: Yes: Normocephalic Neck: Yes: Trachea Midline Cardiovascular: Yes: Tachycardia (sinus tach) Respiratory: Yes: Diminished, Mechanically Ventilated, Poor Air Entry, Wheezes Gastrointestinal: Yes: Soft, Other (midline abd wound with purulence, fistula to bag with liquid drain, NILA to bulb suction.) Musculoskeletal: Yes: Other Extremities: Yes: Other (dry necrosis of BUE and BLE, open ulcers with vaseline gauze) Edema: No Peripheral Pulses WNL: Yes Integumentary: Yes: Pressure Ulcer Wound/Incision: Yes: Dressing Removed, Other (purulent drainage) Neurological: Yes: Unresponsive Labs: CBC, BMP 09/05/16 13:30 09/05/16 06:23 CBC,CMP WBC 21.6 K/mm3 (4.0-10.0) H D 09/07/16 22:45 RBC 3.03 M/mm3 (3.60-5.2) L 09/07/16 22:45 Hgb 8.3 GM/dL (10.7-15.3) L 09/07/16 22:45 Hct 26.7 % (32.4-45.2) L 09/07/16 22:45 MCV 88.1 fl (80-96) 09/07/16 22:45 MCHC 31.1 g/dl (32.0-36.0) L 09/07/16 22:45 RDW 16.2 % (11.6-15.6) H 09/07/16 22:45 Plt Count 455 K/MM3 (134-434) H 09/07/16 22:45 MPV 7.7 fl (7.5-11.1) 09/07/16 22:45 Neutrophils % 51.0 % (42.8-82.8) D 09/07/16 22:45 Lymphocytes % 40.0 % (8-40) D 09/07/16 22:45 Monocytes % 4.0 % (3.8-10.2) 09/07/16 22:45 Eosinophils % 3.0 % (0-4.5) D 09/07/16 22:45 Basophils % 0.6 % (0-2.0) 09/05/16 13:30 Band Neutrophils 2.0 % (0-10) D 09/07/16 22:45 Metamyelocytes 3 % (0-2) H D 08/07/16 05:30 Myelocytes 1 % (0-2) D 08/13/16 05:30 Nucleated RBCs 1 % (0-0) H 08/03/16 05:20 Differential Comment Manual diff done 08/13/16 05:30 Reactive Lymphocytes 1 % (0-80) 07/29/16 05:30 Plasma Cells 1 (0-20) 08/01/16 10:00 Smudge Cells 1 08/03/16 05:20 Toxic Granulation 1+ 07/20/16 05:30 Dohle Bodies 2+ 07/20/16 05:30 Platelet Estimate Increased (NORMAL) 08/19/16 05:30 Platelet Comment No clumping noted 08/03/16 05:20 Platelet Comment No clotting detected 08/02/16 05:40 Polychromasia 1+ 08/02/16 05:40 Hypochromic-Microcytic 1+ 08/18/16 01:37 Poikilocytosis 1+ 08/02/16 05:40 Anisocytosis 1+ 08/18/16 01:37 Target Cells 2+ 07/28/16 05:35 Cary Cells 1+ 07/20/16 05:30 Haptoglobin 269 mg/dL (34-200) H 07/24/16 05:30 Sodium 146 mmol/L (136-145) H 09/07/16 22:45 Potassium 3.9 mmol/L (3.5-5.1) 09/07/16 22:45 Chloride 106 mmol/L (98-107) 09/07/16 22:45 Carbon Dioxide 33 mmol/L (21-32) H 09/07/16 22:45 Anion Gap 7 (8-16) L 09/07/16 22:45 BUN 15 mg/dL (7-18) D 09/07/16 22:45 Creatinine 0.3 mg/dL (0.55-1.02) L 09/07/16 22:45 Creat Clearance w eGFR > 60 (>60) 09/07/16 22:45 POC Glucometer 195 UNITS (()) 09/07/16 21:48 Random Glucose 153 mg/dL (74-106) H 09/07/16 22:45 Hemoglobin A1c % 7.4 % (4.8-6.0) H D 08/27/16 06:30 Lactic Acid 1.6 mmol/L (0.4-2.0) 09/07/16 22:45 Calcium 8.9 mg/dL (8.5-10.1) 09/07/16 22:45 Phosphorus 5.3 mg/dL (2.5-4.9) H D 09/07/16 22:45 Magnesium 1.6 mg/dL (1.8-2.4) L 09/07/16 22:45 Direct Bilirubin 0.2 mg/dL (0.0-0.2) D 08/05/16 05:30 Total Bilirubin 0.2 mg/dL (0.2-1.0) D 09/07/16 22:45 AST 45 U/L (15-37) H D 09/07/16 22:45 ALT 36 U/L (12-78) D 09/07/16 22:45 Alkaline Phosphatase 143 U/L (45-117) H 09/07/16 22:45 Ammonia 16.87 umol/L (11-32) 07/25/16 14:45 LD Total 562 U/L (84-246) H 07/24/16 05:30 CK-MB (CK-2) 4.85 ng/ml (0.5-3.6) H 07/16/16 10:42 Creatine Kinase 80 IU/L (26-192) 09/07/16 22:45 Troponin I 0.26 ng/ml (0.00-0.05) H 09/07/16 22:45 Total Protein 6.5 g/dl (6.4-8.2) 09/07/16 22:45 Albumin 1.7 g/dl (3.4-5.0) L 09/07/16 22:45 Triglycerides 215 mg/dL (35-160) H 08/05/16 05:30 Lipase 128 U/L (73-393) 07/16/16 10:19 Cortisol AM Sample 9.5 ug/dL (.) 07/19/16 05:30 Imaging - Results Chest X-ray: Report Reviewed (Bilat diffuse opacities; bilateral effusions) Assessment/Plan 65yow with long complicated hospital course after surgical repair of perforated viscus now admitted to ICU post PEA arrest in the setting of unable to adequate ventilate/respiratory arrest d/t tracheal obstruction +/- mucous plugging +/- worsening pneumonia Plan: Pulm: Hypercarbia in setting tracheomalacia+/- mucous plugging +/- worsening PNA -Cont vent support AC/VC with peak flow 80 and rate14 -ENT consult to assess for tracheomalacia; may need longer trach -Aggressive pulmonary toilet, CPT and suctioning -Continue antibiotics for MDR pseudomonas and acinetebacter respiratory infection -Monitor trach positin with turning ID: Uptrending leukocytosis; new diarrhea, known resp and wound PSA and acinetebacter infections -Monitor WBC temps -f/u stool cutures -Continue antibiotics as per ID -Monitor lactate CV: Post cardiac/respiratory arrest in setting of hypercarbia; ROSC ~6mins; -Therpeutic hypothermia not required -Fluid bolus 2L for hypotension -Vasopressors as needed for MAP>60 -Monitor lactate -TTE post arrest -Monitor troponin GOC: Poor prognosis Being followed by Palliative -Continue GOC discussion with family Renal: Stable; respiratory acidosis; insensible fluid loss with abd drains, diarrhea, etc -Monitor BMP and UOP -Adequate hydration -Replete electrolytes Proph Hep sq/ PPI Melissa Rivers, ACNP consult time 45mins
[2016-09-07 23:45] LABS: ALBUMIN 1.7 g/dl (3.4-5.0); ANION GAP 7 (8-16); BILIRUBIN,TOTAL 0.2 mg/dL (0.2-1.0); CALCIUM 8.9 mg/dL (8.5-10.1); CO2 33 mmol/L (21-32); CREATININE 0.3 mg/dL (0.55-1.02); GLUCOSE,RANDOM 153 mg/dL (74-106); MAGNESIUM 1.6 mg/dL (1.8-2.4); PHOSPHOROUS 5.3 mg/dL (2.5-4.9); SGOT/AST 45 U/L (15-37); SGPT/ALT 36 U/L (12-78); TOT PROT 6.5 g/dl (6.4-8.2)
[2016-09-07 23:47] LABS: ALK PHOS 143 U/L (45-117); TROPONIN I 0.26 ng/ml (0.00-0.05)
[2016-09-07 23:49] LABS: INR 1.14 (0.82-1.09); PROTHROMBIN TIME (PATIENT) 12.6 SEC (9.98-11.88)
[2016-09-08 00:05] LABS: ARTERIAL BLOOD GAS BASE EXCESS 0.6 meq/l (-2-2); ARTERIAL BLOOD GAS HCO3 28.4 meq/L (22-26); ARTERIAL BLOOD GAS pH 7.24 (7.35-7.45)
[2016-09-08] MEDS ORDERED: LACTATED RINGERS SOLUTION 1,000 ML IV STA ×2 (00:05→01:31)
[2016-09-08 00:08] LABS: ALLENS TEST POSITIVE; ART PUNCT SITE LEFT RADIAL; LPM/O2% 100%; MECH. VENT. Y; PT. ON O2? YES; TYPE OF O2 VENT; VENT RATE 12; VT/PRESS 25
[2016-09-08] MEDS: PHENYLEPHRINE HCL 20,000 MCG in SODIUM CHLORIDE 248 ML IVPB SCH (02:00)
[2016-09-08] MEDS: CEFTAZIDIME PENTAHYDRATE 1 GM in DEXTROSE 5%-WATER - 50 ML IVPB SCH ×3 (02:17→18:36)
[2016-09-08] MEDS ORDERED: PHENYLEPHRINE HCL 10 MG/1 ML SINGLE DOSE VIAL ONE ×2 (03:28→19:50)
[2016-09-08 06:05] LABS: MCH 27.5 pg (25.7-33.7); MCHC 31.8 g/dl (32.0-36.0); MEAN CELL VOLUME 86.3 fl (80-96); MEAN PLT VOLUME 7.6 fl (7.5-11.1); PLATELET COUNT 407 K/MM3 (134-434); RDW 15.6 % (11.6-15.6); WHITE BLOOD COUNT 16.5 K/mm3 (4.0-10.0)
[2016-09-08 06:27] LABS: ALBUMIN 1.6 g/dl (3.4-5.0); ANION GAP 10 (8-16); BILIRUBIN,TOTAL 0.2 mg/dL (0.2-1.0); CALCIUM 9.2 mg/dL (8.5-10.1); CO2 30 mmol/L (21-32); CREATININE 0.4 mg/dL (0.55-1.02); GLUCOSE,RANDOM 174 mg/dL (74-106); SGOT/AST 38 U/L (15-37); SGPT/ALT 30 U/L (12-78)
[2016-09-08 06:43] LABS: ALK PHOS 128 U/L (45-117)
[2016-09-08] MEDS: OFLOXACIN 0.3% OPHTHALMIC SOLUTION 5 ML BOTTLE OD SCH ×5 (06:56→22:07)
[2016-09-08] MEDS: INSULIN SLIDING SCALE (NOVOLOG) 1 VIAL SQ SCH ×4 (06:56→22:07)
[2016-09-08 07:12] LABS: TROPONIN I 3.34 ng/ml (0.00-0.05)
[2016-09-08 07:18] LABS: ARTERIAL BLOOD GAS BASE EXCESS 5.6 meq/l (-2-2); ARTERIAL BLOOD GAS HCO3 28.8 meq/L (22-26); ARTERIAL BLOOD GAS pH 7.51 (7.35-7.45)
[2016-09-08 07:19] LABS: ALLENS TEST POSITIVE; ART PUNCT SITE RIGHT BRACHIAL; LPM/O2% 80%; MECH. VENT. Y; PT. ON O2? YES; TYPE OF O2 VENT; VENT RATE 14; VT/PRESS 400
[2016-09-08] MEDS ORDERED: PT OWN MED DRAWER 7, Y5N ONE ×2 (08:30→18:29)
--- NOTE | 2016-09-08 09:06 | PN ---
Progress Note, Physician Chief Complaint: S/P code 99 ,CPR and transferred here to ICU History of Present Illness: S/P CPR in ICU now on respirator - Current Medication List Current Medications: Active Medications Acetaminophen (Tylenol Oral Solution -) 650 mg PO Q6H PRN PRN Reason: FEVER OR PAIN Last Admin: 09/07/16 05:22 Dose: 650 mg Alprazolam (Xanax -) 0.5 mg PO Q6H PRN PRN Reason: AGITATION Last Admin: 09/07/16 17:38 Dose: 0.5 mg Chlorhexidine Gluconate (Peridex -) 15 ml MM BID [facility] Last Admin: 09/07/16 23:00 Dose: 15 ml Dextrose (D50w (Vial) -) 50 ml IVPUSH Q15M PRN PRN Reason: BLOOD SUGAR < 60 Enoxaparin Sodium (Lovenox -) 40 mg SQ BID [facility] Last Admin: 09/07/16 23:00 Dose: 40 mg Fluconazole (Diflucan -) 100 mg PO DAILY [facility] Furosemide (Lasix -) 20 mg GT DAILY [facility] Last Admin: 09/07/16 11:49 Dose: 20 mg Fluconazole (Diflucan 200 Mg/D5w Premixed Ivpb -) 100 mls @ 100 mls/hr IVPB DAILY [facility] Last Admin: 09/07/16 11:43 Dose: 100 mls/hr Ceftazidime 1 gm/ Dextrose 50 mls @ 100 mls/hr IVPB Q8H-IV [facility] PRN Reason: Protocol Last Admin: 09/08/16 02:17 Dose: 100 mls/hr Phenylephrine HCl 20,000 mcg/ (Sodium Chloride) 250 mls @ 37.5 mls/hr IVPB ASDIR [facility]; 50 MCG/MIN PRN Reason: Protocol Last Admin: 09/08/16 02:00 Dose: 37.5 mls/hr Insulin Aspart (Novolog Vial Sliding Scale -) 1 vial SQ ACHS [facility] PRN Reason: Protocol Last Admin: 09/08/16 06:56 Dose: 4 units Insulin Detemir (Levemir Vial) 18 units SQ HS [facility] Last Admin: 09/07/16 22:00 Dose: Not Given Miscellaneous (Duragesic Patch Waste) 1 each TD PRN PRN PRN Reason: PAIN Last Admin: 09/07/16 19:14 Dose: 1 each Morphine Sulfate (Morphine Injection -) 2 mg IVPUSH Q4H PRN PRN Reason: PAIN Last Admin: 09/07/16 17:44 Dose: 2 mg Ofloxacin (Ocuflox 0.3% Eye Drops -) 1 drop OD Q4HWA [facility] Last Admin: 09/08/16 06:56 Dose: 1 drop Prednisolone Acetate (Pred Forte 1% -) 1 drop OD BID [facility] Last Admin: 09/07/16 23:00 Dose: 1 drop Ranitidine HCl (Zantac Oral Solution -) 150 mg PO BID [facility] Last Admin: 09/07/16 23:00 Dose: Not Given - Objective Vital Signs: Vital Signs Temperature 97.1 F L 09/08/16 06:00 Pulse Rate 79 09/08/16 08:41 Respiratory Rate 20 09/08/16 08:42 Blood Pressure 90/46 09/08/16 08:41 O2 Sat by Pulse Oximetry (%) 96 09/06/16 09:40 Constitutional: Yes: Mild Distress Eyes: Yes: WNL HENT: Yes: WNL Neck: Yes: WNL Cardiovascular: Yes: Tachycardia Respiratory: Yes: Mechanically Ventilated Gastrointestinal: Yes: Soft ...Rectal Exam: Yes: Deferred Genitourinary: Yes: Bacon Present Breast(s): Yes: WNL Musculoskeletal: Yes: Muscle Weakness Edema: No Peripheral Pulses WNL: No Neurological: Yes: Lethargy Labs: CBC, BMP 09/08/16 05:40 09/08/16 05:40 INR, PTT INR 1.14 (0.82-1.09) 09/07/16 22:45 Fibrinogen > 700.0 mg/dL (238-498) H 07/31/16 05:40 - ....Imaging Chest X-ray: Report Reviewed Assessment/Plan Will discuss with her family regarding DNR
--- NOTE | 2016-09-08 09:09 | PN ---
Progress Note, Physician - Current Medication List Current Medications: Active Medications Acetaminophen (Tylenol Oral Solution -) 650 mg PO Q6H PRN PRN Reason: FEVER OR PAIN Last Admin: 09/07/16 05:22 Dose: 650 mg Alprazolam (Xanax -) 0.5 mg PO Q6H PRN PRN Reason: AGITATION Last Admin: 09/07/16 17:38 Dose: 0.5 mg Chlorhexidine Gluconate (Peridex -) 15 ml MM BID [facility] Last Admin: 09/07/16 23:00 Dose: 15 ml Dextrose (D50w (Vial) -) 50 ml IVPUSH Q15M PRN PRN Reason: BLOOD SUGAR < 60 Enoxaparin Sodium (Lovenox -) 40 mg SQ BID [facility] Last Admin: 09/07/16 23:00 Dose: 40 mg Fluconazole (Diflucan -) 100 mg PO DAILY [facility] Furosemide (Lasix -) 20 mg GT DAILY [facility] Last Admin: 09/07/16 11:49 Dose: 20 mg Fluconazole (Diflucan 200 Mg/D5w Premixed Ivpb -) 100 mls @ 100 mls/hr IVPB DAILY [facility] Last Admin: 09/07/16 11:43 Dose: 100 mls/hr Ceftazidime 1 gm/ Dextrose 50 mls @ 100 mls/hr IVPB Q8H-IV [facility] PRN Reason: Protocol Last Admin: 09/08/16 02:17 Dose: 100 mls/hr Phenylephrine HCl 20,000 mcg/ (Sodium Chloride) 250 mls @ 37.5 mls/hr IVPB ASDIR [facility]; 50 MCG/MIN PRN Reason: Protocol Last Admin: 09/08/16 02:00 Dose: 37.5 mls/hr Insulin Aspart (Novolog Vial Sliding Scale -) 1 vial SQ ACHS [facility] PRN Reason: Protocol Last Admin: 09/08/16 06:56 Dose: 4 units Insulin Detemir (Levemir Vial) 18 units SQ HS [facility] Last Admin: 09/07/16 22:00 Dose: Not Given Miscellaneous (Duragesic Patch Waste) 1 each TD PRN PRN PRN Reason: PAIN Last Admin: 09/07/16 19:14 Dose: 1 each Morphine Sulfate (Morphine Injection -) 2 mg IVPUSH Q4H PRN PRN Reason: PAIN Last Admin: 09/07/16 17:44 Dose: 2 mg Ofloxacin (Ocuflox 0.3% Eye Drops -) 1 drop OD Q4HWA [facility] Last Admin: 09/08/16 06:56 Dose: 1 drop Prednisolone Acetate (Pred Forte 1% -) 1 drop OD BID [facility] Last Admin: 09/07/16 23:00 Dose: 1 drop Ranitidine HCl (Zantac Oral Solution -) 150 mg PO BID [facility] Last Admin: 09/07/16 23:00 Dose: Not Given - Objective Vital Signs: Vital Signs Temperature 97.1 F L 09/08/16 06:00 Pulse Rate 79 09/08/16 08:41 Respiratory Rate 20 09/08/16 08:42 Blood Pressure 90/46 09/08/16 08:41 O2 Sat by Pulse Oximetry (%) 96 09/06/16 09:40 Labs: CBC, BMP 09/08/16 05:40 09/08/16 05:40 INR, PTT INR 1.14 (0.82-1.09) 09/07/16 22:45 Fibrinogen > 700.0 mg/dL (238-498) H 07/31/16 05:40
[2016-09-08] MEDS: RANITIDINE HCL 150 MG/10 ML UNIT-DOSE CUP PO SCH ×2 (09:38→22:05)
[2016-09-08] MEDS: ENOXAPARIN NA (PORCINE) 40 MG/0.4 ML DISP.SYRIN SQ SCH ×2 (09:38→22:05)
[2016-09-08] MEDS: FLUCONAZOLE 100 MG TABLET (UD) PO SCH (09:39)
[2016-09-08] MEDS: FLUCONAZOLE 200 MG/D5W 100 ML IVPB SCH (09:39)
[2016-09-08] MEDS: CHLORHEXIDINE GLUCONATE 0.12% 15ML CUP MM SCH ×2 (09:40→22:05)
[2016-09-08] MEDS: FUROSEMIDE 20 MG TABLET (FP) GT SCH (09:40)
[2016-09-08] MEDS: prednisoLONE ACETATE 1% OPHTH SUSP 5 ML BOTTLE OD SCH ×2 (09:41→22:06)
--- NOTE | 2016-09-08 12:00 | PN ---
Physical Exam: SUBJECTIVE: Patient is on vent with possible obstruction due to inability to suction the trach. Patient is full code, Dr. Miranda has been attempting to contact family for suggested change to DNR status. OBJECTIVE: Vital Signs Period Temp Pulse Resp BP Sys/Major Pulse Ox Last 24 Hr 97 F-97.7 F 79-130 14-24 78-117/44-83 99-99 GENERAL: The patient is arousable but not oriented to time, place, or person. HEAD: No signs of trauma, temporal wasting noted EYES: PERRL ENT: Ears normal, nares patent, oropharynx clear without exudates, moist mucous membranes. NECK: Trachea midline, full range of motion, supple. LUNGS: Breath sounds equal, clear to auscultation bilaterally, breathing on vent HEART: Sinus rhythm, S1, S2 without murmur, rub or gallop. ABDOMEN: Soft, nontender, nondistended, normoactive bowel sounds, no guarding, no rebound, no hepatosplenomegaly, no masses, surgical scars noted on abdomen EXTREMITIES: Gangrenous tissue noted in bilateral upper extremities distally on hands as well as in bilateral lower extremities on feet NEUROLOGICAL: Neurologically not intact, patient does not respond to commands. Reflexes are intact SKIN: Gangrene noted in b/l upper and lower extremities distally CBCD WBC 16.5 K/mm3 (4.0-10.0) H 09/08/16 05:40 RBC 2.70 M/mm3 (3.60-5.2) L 09/08/16 05:40 Hgb 7.4 GM/dL (10.7-15.3) L D 09/08/16 05:40 Hct 23.3 % (32.4-45.2) L 09/08/16 05:40 MCV 86.3 fl (80-96) 09/08/16 05:40 MCHC 31.8 g/dl (32.0-36.0) L 09/08/16 05:40 RDW 15.6 % (11.6-15.6) 09/08/16 05:40 Plt Count 407 K/MM3 (134-434) 09/08/16 05:40 MPV 7.6 fl (7.5-11.1) 09/08/16 05:40 CMP Sodium 145 mmol/L (136-145) 09/08/16 05:40 Potassium 4.0 mmol/L (3.5-5.1) 09/08/16 05:40 Chloride 105 mmol/L (98-107) 09/08/16 05:40 Carbon Dioxide 30 mmol/L (21-32) 09/08/16 05:40 Anion Gap 10 (8-16) 09/08/16 05:40 BUN 18 mg/dL (7-18) 09/08/16 05:40 Creatinine 0.4 mg/dL (0.55-1.02) L D 09/08/16 05:40 Creat Clearance w eGFR > 60 (>60) 09/08/16 05:40 Calcium 9.2 mg/dL (8.5-10.1) 09/08/16 05:40 Total Bilirubin 0.2 mg/dL (0.2-1.0) 09/08/16 05:40 AST 38 U/L (15-37) H 09/08/16 05:40 ALT 30 U/L (12-78) 09/08/16 05:40 Alkaline Phosphatase 128 U/L (45-117) H 09/08/16 05:40 Total Protein 6.0 g/dl (6.4-8.2) L 09/08/16 05:40 Albumin 1.6 g/dl (3.4-5.0) L 09/08/16 05:40 Troponin, BNP 09/07/16 09/08/16 22:45 05:40 Troponin I 0.26 H 3.34 H* Intake & Output 09/07/16 09/08/16 09/08/16 23:59 07:59 15:59 Intake Total 2250 Output Total 560 660 Balance -560 1590 Active Medications Generic Name Dose Route Start Last Admin Trade Name Freq PRN Reason Stop Dose Admin Acetaminophen 650 mg 09/04/16 08:48 09/07/16 05:22 Tylenol Oral Solution - PO 650 mg Q6H PRN Administration FEVER OR PAIN Alprazolam 0.5 mg 09/06/16 12:09 09/07/16 17:38 Xanax - PO 0.5 mg Q6H PRN Administration AGITATION Chlorhexidine Gluconate 15 ml 08/13/16 22:00 09/08/16 09:40 Peridex - MM 15 ml BID [facility] Administration Dextrose 50 ml 08/13/16 19:11 D50w (Vial) - IVPUSH Q15M PRN BLOOD SUGAR < 60 Enoxaparin Sodium 40 mg 09/07/16 22:00 09/08/16 09:38 Lovenox - SQ 40 mg BID [facility] Administration Fluconazole 100 mg 09/08/16 10:00 09/08/16 09:39 Diflucan - PO Not Given DAILY [facility] Furosemide 20 mg 08/30/16 10:00 09/08/16 09:40 Lasix - GT 20 mg DAILY [facility] Administration Fluconazole 100 mls @ 100 mls/hr 08/21/16 15:45 09/08/16 09:39 Diflucan 200 Mg/D5w Premixed Ivpb - IVPB 100 mls/hr DAILY [facility] Administration Ceftazidime 1 gm/ Dextrose 50 mls @ 100 mls/hr 09/03/16 15:00 09/08/16 09:39 IVPB 100 mls/hr Q8H-IV [facility] Administration Protocol Phenylephrine HCl 20,000 mcg/ 250 mls @ 37.5 mls/hr 09/08/16 02:00 09/08/16 02: 00 Sodium Chloride IVPB 37.5 mls/hr ASDIR [facility] Administration Protocol 50 MCG/MIN Insulin Aspart 1 vial 08/13/16 22:00 09/08/16 06:56 Novolog Vial Sliding Scale - SQ 4 units ACHS [facility] Administration Protocol Insulin Detemir 18 units 08/30/16 12:50 09/07/16 22:00 Levemir Vial SQ Not Given HS [facility] Miscellaneous 1 each 08/13/16 19:11 09/07/16 19:14 Duragesic Patch Waste TD 1 each PRN PRN Administration PAIN Morphine Sulfate 2 mg 09/06/16 15:49 09/07/16 17:44 Morphine Injection - IVPUSH 2 mg Q4H PRN Administration PAIN Ofloxacin 1 drop 08/27/16 14:00 09/08/16 10:00 Ocuflox 0.3% Eye Drops - OD 1 drop Q4HWA [facility] Administration Prednisolone Acetate 1 drop 08/27/16 14:00 09/08/16 09:41 Pred Forte 1% - OD 1 drop BID [facility] Administration Ranitidine HCl 150 mg 09/04/16 10:00 07/03/17 09:38 Zantac Oral Solution - PO 150 mg BID [facility] Administration ASSESSMENT/PLAN: Pt is a 66 year old female with a long hospital course s/p perforated duodenal ulcer w/ septic shock secondary to peritonitis. Patient transferred to ICU s/p cardiac arrest in PEA, for which ACLS was performed for a total of 5 minutes before return of spontaneous circulation. Cardiac: s/p cardiac arrest in PEA Patient's heart rate and blood pressure are stable at 82bpm and 105/55. -Continue furosemide 20mg QD -f/u with DNR status -started on phenylephrine ggt -monitor troponins -vasopressors MAP > 60 Pulmonary: hypercarbia/mucus plugging of trach Patient is on vent at rate 14, PEEP 5, pressure support 400, oxygenation 80% -patient is not a candidate for re-insertion of trach in the OR due unstable status -continue monitoring respiratory status -continue suctioning trach -continue abx for respiratory infx ID: diarrhea in the setting of respiratory infx -continue abx according to ID recommendations -lactate normalized -stool culture neg Dispo: Continue current management -f/u with family on DNR status -palliative is following pt Problem List - Problems (1) Cardiac arrest due to respiratory disorder Code(s): J98.9 - RESPIRATORY DISORDER, UNSPECIFIED I46.8 - CARDIAC ARREST DUE TO OTHER UNDERLYING CONDITION Visit type - Emergency Visit Emergency Visit: No - New Patient This patient is new to me today: No - Critical Care Critical Care patient: Yes Total Critical Care Time (in minutes): 45 Critical Care Statement: The care of this patient involved high complexity decision making to prevent further life threatening deterioration of the patient 's condition and/or to evalute & treat vital organ system(s) failure or risk of failure.
--- NOTE | 2016-09-08 12:20 | PN ---
Teaching Attending Note Name of Resident: Jer Joseph ATTENDING PHYSICIAN STATEMENT I saw and evaluated the patient. I reviewed the resident's note and discussed the case with the resident. I agree with the resident's findings and plan as documented. SUBJECTIVE: Pt seen and examined in the ICU. s/p PEA cardiac arrest. Started on phenylephrine gtt. Remains vented, poorly responsive. OBJECTIVE: Last Vital Signs Temp Pulse Resp BP Pulse Ox 97.1 F L 86 14 90/46 99 09/08/16 06:00 09/08/16 09:50 09/08/16 09:20 09/08/16 08:41 09/08/16 09:50 Intake & Output 09/05/16 09/06/16 09/07/16 09/08/16 23:59 23:59 23:59 23:59 Intake Total 1840 1760 1850 2250 Output Total 585 093 6335 660 Balance 890 5766 170 0117 Gen: vented, poorly responsive, cachectic Heart: RRR Lung: scattered rhonchi Abd: soft, nontender Ext: + edema, gangrenous hands, feet CBC, BMP 09/08/16 05:40 09/08/16 05:40 Active Medications Acetaminophen (Tylenol Oral Solution -) 650 mg PO Q6H PRN PRN Reason: FEVER OR PAIN Last Admin: 09/07/16 05:22 Dose: 650 mg Alprazolam (Xanax -) 0.5 mg PO Q6H PRN PRN Reason: AGITATION Last Admin: 09/07/16 17:38 Dose: 0.5 mg Chlorhexidine Gluconate (Peridex -) 15 ml MM BID [facility] Last Admin: 09/08/16 09:40 Dose: 15 ml Dextrose (D50w (Vial) -) 50 ml IVPUSH Q15M PRN PRN Reason: BLOOD SUGAR < 60 Enoxaparin Sodium (Lovenox -) 40 mg SQ BID [facility] Last Admin: 09/08/16 09:38 Dose: 40 mg Fluconazole (Diflucan -) 100 mg PO DAILY [facility] Last Admin: 09/08/16 09:39 Dose: Not Given Furosemide (Lasix -) 20 mg GT DAILY [facility] Last Admin: 09/08/16 09:40 Dose: 20 mg Fluconazole (Diflucan 200 Mg/D5w Premixed Ivpb -) 100 mls @ 100 mls/hr IVPB DAILY [facility] Last Admin: 09/08/16 09:39 Dose: 100 mls/hr Ceftazidime 1 gm/ Dextrose 50 mls @ 100 mls/hr IVPB Q8H-IV [facility] PRN Reason: Protocol Last Admin: 09/08/16 09:39 Dose: 100 mls/hr Phenylephrine HCl 20,000 mcg/ (Sodium Chloride) 250 mls @ 37.5 mls/hr IVPB ASDIR [facility]; 50 MCG/MIN PRN Reason: Protocol Last Admin: 09/08/16 02:00 Dose: 37.5 mls/hr Insulin Aspart (Novolog Vial Sliding Scale -) 1 vial SQ ACHS [facility] PRN Reason: Protocol Last Admin: 09/08/16 06:56 Dose: 4 units Insulin Detemir (Levemir Vial) 18 units SQ HS [facility] Last Admin: 09/07/16 22:00 Dose: Not Given Miscellaneous (Duragesic Patch Waste) 1 each TD PRN PRN PRN Reason: PAIN Last Admin: 09/07/16 19:14 Dose: 1 each Morphine Sulfate (Morphine Injection -) 2 mg IVPUSH Q4H PRN PRN Reason: PAIN Last Admin: 09/07/16 17:44 Dose: 2 mg Ofloxacin (Ocuflox 0.3% Eye Drops -) 1 drop OD Q4HWA [facility] Last Admin: 09/08/16 10:00 Dose: 1 drop Prednisolone Acetate (Pred Forte 1% -) 1 drop OD BID [facility] Last Admin: 09/08/16 09:41 Dose: 1 drop Ranitidine HCl (Zantac Oral Solution -) 150 mg PO BID [facility] Last Admin: 09/08/16 09:38 Dose: 150 mg ASSESSMENT AND PLAN: Perforated Duodenal Ulcer Peritonitis s/p ex-lap/omental patch repair 07/16 Enterocutaneous Fistula Acute Respiratory Failure s/p Tracheostomy s/p Septic Shock DM DVT Gangrene s/p PEA Cardiac Arrest - pressors to maintain MAP >65 - IVF - antibiotics per ID - taper Fio2 to keep Spo2 >90% - continue anticoagulation - enteral feeds as tolerated - volume assist control - DVT/GI prophylaxis - prognosis is poor, continue discussions regarding advanced directives and goals of care - recommend palliative due to failure to wean, anticipated amputations, poor quality of life
--- NOTE | 2016-09-08 15:20 | PN ---
Progress Note, Physician History of Present Illness: events noted from last night patient went into resp arrest patient was resucicated now in icu - Current Medication List Current Medications: Active Medications Acetaminophen (Tylenol Oral Solution -) 650 mg PO Q6H PRN PRN Reason: FEVER OR PAIN Last Admin: 09/07/16 05:22 Dose: 650 mg Alprazolam (Xanax -) 0.5 mg PO Q6H PRN PRN Reason: AGITATION Last Admin: 09/07/16 17:38 Dose: 0.5 mg Chlorhexidine Gluconate (Peridex -) 15 ml MM BID [facility] Last Admin: 09/08/16 09:40 Dose: 15 ml Dextrose (D50w (Vial) -) 50 ml IVPUSH Q15M PRN PRN Reason: BLOOD SUGAR < 60 Enoxaparin Sodium (Lovenox -) 40 mg SQ BID [facility] Last Admin: 09/08/16 09:38 Dose: 40 mg Fluconazole (Diflucan -) 100 mg PO DAILY [facility] Last Admin: 09/08/16 09:39 Dose: Not Given Furosemide (Lasix -) 20 mg GT DAILY [facility] Last Admin: 09/08/16 09:40 Dose: 20 mg Fluconazole (Diflucan 200 Mg/D5w Premixed Ivpb -) 100 mls @ 100 mls/hr IVPB DAILY [facility] Last Admin: 09/08/16 09:39 Dose: 100 mls/hr Ceftazidime 1 gm/ Dextrose 50 mls @ 100 mls/hr IVPB Q8H-IV [facility] PRN Reason: Protocol Last Admin: 09/08/16 09:39 Dose: 100 mls/hr Phenylephrine HCl 20,000 mcg/ (Sodium Chloride) 250 mls @ 37.5 mls/hr IVPB ASDIR [facility]; 50 MCG/MIN PRN Reason: Protocol Last Admin: 09/08/16 02:00 Dose: 37.5 mls/hr Insulin Aspart (Novolog Vial Sliding Scale -) 1 vial SQ ACHS [facility] PRN Reason: Protocol Last Admin: 09/08/16 12:00 Dose: Not Given Insulin Detemir (Levemir Vial) 18 units SQ HS [facility] Last Admin: 09/07/16 22:00 Dose: Not Given Miscellaneous (Duragesic Patch Waste) 1 each TD PRN PRN PRN Reason: PAIN Last Admin: 09/07/16 19:14 Dose: 1 each Morphine Sulfate (Morphine Injection -) 2 mg IVPUSH Q4H PRN PRN Reason: PAIN Last Admin: 09/07/16 17:44 Dose: 2 mg Ofloxacin (Ocuflox 0.3% Eye Drops -) 1 drop OD Q4HWA [facility] Last Admin: 09/08/16 10:00 Dose: 1 drop Prednisolone Acetate (Pred Forte 1% -) 1 drop OD BID [facility] Last Admin: 09/08/16 09:41 Dose: 1 drop Ranitidine HCl (Zantac Oral Solution -) 150 mg PO BID [facility] Last Admin: 09/08/16 09:38 Dose: 150 mg - Objective Vital Signs: Vital Signs Temperature 97.1 F L 09/08/16 06:00 Pulse Rate 86 09/08/16 09:50 Respiratory Rate 14 09/08/16 11:55 Blood Pressure 90/46 09/08/16 08:41 O2 Sat by Pulse Oximetry (%) 99 09/08/16 09:50 Constitutional: Yes: No Distress, Calm Neck: Yes: Other Cardiovascular: Yes: Regular Rate and Rhythm Respiratory: Yes: Mechanically Ventilated, Other (trach) Gastrointestinal: Yes: Normal Bowel Sounds, Soft, Other (feeding tube in place) Musculoskeletal: Yes: Other Extremities: Yes: Other (gangrene of the fingers) Neurological: Yes: Alert Psychiatric: Yes: Alert Labs: CBC, BMP 09/08/16 05:40 09/08/16 05:40 INR, PTT INR 1.14 (0.82-1.09) 09/07/16 22:45 Fibrinogen > 700.0 mg/dL (238-498) H 07/31/16 05:40 Assessment/Plan Problem List - Problems (1) Abdominal pain Code(s): R10.9 - UNSPECIFIED ABDOMINAL PAIN Qualifiers: Qualified Code(s): R10.33 - Periumbilical pain (2) Perforated abdominal viscus Code(s): [id number] - (3) Perforated viscus Code(s): R19.8 - OTH SYMPTOMS AND SIGNS INVOLVING THE DGSTV SYS AND ABDOMEN (4) Hypertension Code(s): I10 - ESSENTIAL (PRIMARY) HYPERTENSION Qualifiers: Qualified Code(s): I10 - Essential (primary) hypertension lactic acidosis fevers generalized swelling gangrene of the tip of the fingers noted pseudomonas pneumonia plan conitnue abx continue close monitoring await for all cx reports rest as per icu mgmt hydration nutrition cc time 40 min
[2016-09-08 17:41] LABS: TROPONIN I 3.1 ng/ml (0.00-0.05)
[2016-09-08] MEDS: ACETAMINOPHEN 650 MG/20.3 ML ORAL SOLUTION (CUPS) PO PRN (18:36)
[2016-09-08] MEDS: INSULIN DETEMIR 100 UNITS/ML MDV SQ SCH (22:07)
[2016-09-08] MEDS: ACETAMINOPHEN 1000 MG/100 ML VIAL (NON FORMULARY) IVPB PRN (23:18)
[2016-09-09] MEDS: PHENYLEPHRINE HCL 20,000 MCG in SODIUM CHLORIDE 248 ML IVPB SCH
[2016-09-09] MEDS ORDERED: PT OWN MED DRAWER 7, Y5N ONE ×2 (01:10→18:20)
[2016-09-09] MEDS: CEFTAZIDIME PENTAHYDRATE 1 GM in DEXTROSE 5%-WATER - 50 ML IVPB SCH ×3 (01:13→18:23)
[2016-09-09] MEDS: OFLOXACIN 0.3% OPHTHALMIC SOLUTION 5 ML BOTTLE OD SCH ×5 (05:43→21:47)
[2016-09-09] MEDS: INSULIN SLIDING SCALE (NOVOLOG) 1 VIAL SQ SCH ×4 (06:09→21:48)
[2016-09-09 06:22] LABS: BASOPHIL 0.5 % (0-2.0); EOSINOPHIL 2.4 % (0-4.5); MCH 28.6 pg (25.7-33.7); MCHC 33.2 g/dl (32.0-36.0); MEAN CELL VOLUME 86.3 fl (80-96); MEAN PLT VOLUME 7.8 fl (7.5-11.1); NEUTROPHILS 51.1 % (42.8-82.8); PLATELET COUNT 422 K/MM3 (134-434); RDW 15.7 % (11.6-15.6); WHITE BLOOD COUNT 10.2 K/mm3 (4.0-10.0)
[2016-09-09 06:49] LABS: ALBUMIN 1.7 g/dl (3.4-5.0); ANION GAP 9 (8-16); CALCIUM 9.3 mg/dL (8.5-10.1); CO2 30 mmol/L (21-32); GLUCOSE,RANDOM 127 mg/dL (74-106); MAGNESIUM 1.4 mg/dL (1.8-2.4); PHOSPHOROUS 2.5 mg/dL (2.5-4.9)
[2016-09-09 06:51] LABS: ALK PHOS 116 U/L (45-117); BILIRUBIN,TOTAL 0.4 mg/dL (0.2-1.0); CREATININE 0.3 mg/dL (0.55-1.02); SGOT/AST 26 U/L (15-37); SGPT/ALT 24 U/L (12-78); TOT PROT 6.2 g/dl (6.4-8.2)
[2016-09-09 09:15] LABS: TROPONIN I 2.08 ng/ml (0.00-0.05)
--- NOTE | 2016-09-09 10:06 | PN ---
Progress Note (short form) - Note Progress Note: PULMONARY/CCM Pt seen and examined in the ICU. Remains on low dose phenylephrine gtt. Vented on volume assist control with 80% FiO2. Remains poorly responsive. Last Vital Signs Temp Pulse Resp BP Pulse Ox 98.4 F 90 18 109/86 100 09/09/16 06:34 09/09/16 09:57 09/09/16 09:00 09/09/16 08:00 09/09/16 10:02 Intake & Output 09/06/16 09/07/16 09/08/16 09/09/16 23:59 23:59 23:59 23:59 Intake Total 1760 1850 2690 270 Output Total 700 1182 1070 300 Balance 0318 050 0538 -30 Weight 135 lb 2.294 oz Gen: vented, poorly responsive Heart: tachycardic, regular Lung: scattered rhonchi Abd: soft, nontender Ext: multiple ulcers, dry gangrene of bilateral feet, fingers CBC, BMP 09/09/16 05:50 09/09/16 05:50 Active Medications Acetaminophen (Tylenol Oral Solution -) 650 mg PO Q6H PRN PRN Reason: FEVER OR PAIN Last Admin: 09/08/16 18:36 Dose: 650 mg Acetaminophen (Ofirmev Injection -) 1,000 mg IVPB Q6H PRN PRN Reason: FEVER OR PAIN Stop: 09/09/16 16:30 Last Admin: 09/08/16 23:18 Dose: 1,000 mg Alprazolam (Xanax -) 0.5 mg PO Q6H PRN PRN Reason: AGITATION Last Admin: 09/07/16 17:38 Dose: 0.5 mg Chlorhexidine Gluconate (Peridex -) 15 ml MM BID [facility] Last Admin: 09/08/16 22:05 Dose: 15 ml Dextrose (D50w (Vial) -) 50 ml IVPUSH Q15M PRN PRN Reason: BLOOD SUGAR < 60 Enoxaparin Sodium (Lovenox -) 40 mg SQ BID [facility] Last Admin: 09/08/16 22:05 Dose: 40 mg Fluconazole (Diflucan -) 100 mg PO DAILY [facility] Last Admin: 09/08/16 09:39 Dose: Not Given Furosemide (Lasix -) 20 mg GT DAILY [facility] Last Admin: 09/08/16 09:40 Dose: 20 mg Fluconazole (Diflucan 200 Mg/D5w Premixed Ivpb -) 100 mls @ 100 mls/hr IVPB DAILY [facility] Last Admin: 09/08/16 09:39 Dose: 100 mls/hr Ceftazidime 1 gm/ Dextrose 50 mls @ 100 mls/hr IVPB Q8H-IV [facility] PRN Reason: Protocol Last Admin: 09/09/16 01:13 Dose: 100 mls/hr Phenylephrine HCl 20,000 mcg/ (Sodium Chloride) 250 mls @ 37.5 mls/hr IVPB ASDIR [facility]; 50 MCG/MIN PRN Reason: Protocol Last Admin: 09/09/16 00:00 Dose: 10 mls/hr Insulin Aspart (Novolog Vial Sliding Scale -) 1 vial SQ ACHS [facility] PRN Reason: Protocol Last Admin: 09/09/16 06:09 Dose: Not Given Insulin Detemir (Levemir Vial) 18 units SQ HS [facility] Last Admin: 09/08/16 22:07 Dose: Not Given Miscellaneous (Duragesic Patch Waste) 1 each TD PRN PRN PRN Reason: PAIN Last Admin: 09/07/16 19:14 Dose: 1 each Morphine Sulfate (Morphine Injection -) 2 mg IVPUSH Q4H PRN PRN Reason: PAIN Last Admin: 09/07/16 17:44 Dose: 2 mg Ofloxacin (Ocuflox 0.3% Eye Drops -) 1 drop OD Q4HWA [facility] Last Admin: 09/09/16 05:43 Dose: 1 drop Prednisolone Acetate (Pred Forte 1% -) 1 drop OD BID [facility] Last Admin: 09/08/16 22:06 Dose: 1 drop Ranitidine HCl (Zantac Oral Solution -) 150 mg PO BID [facility] Last Admin: 09/08/16 22:05 Dose: 150 mg A/P Perforated Duodenal Ulcer Peritonitis s/p ex-lap/omental patch repair 07/16 Enterocutaneous Fistula Acute Respiratory Failure s/p Tracheostomy s/p Septic Shock DM DVT Gangrene s/p PEA Cardiac Arrest - taper off pressors, maintain MAP >65 - IVF - antibiotics per ID - taper Fio2 to keep Spo2 >90% - continue anticoagulation - enteral feeds as tolerated - volume assist control - DVT/GI prophylaxis - prognosis is poor, continue discussions regarding advanced directives and goals of care - recommend palliative due to failure to wean, anticipated amputations, poor quality of life
[2016-09-09] MEDS: FLUCONAZOLE 200 MG/D5W 100 ML IVPB SCH (10:19)
[2016-09-09] MEDS: FLUCONAZOLE 100 MG TABLET (UD) PO SCH ×2 (10:20→10:31)
[2016-09-09] MEDS: RANITIDINE HCL 150 MG/10 ML UNIT-DOSE CUP PO SCH ×2 (10:20→21:39)
[2016-09-09] MEDS: ENOXAPARIN NA (PORCINE) 40 MG/0.4 ML DISP.SYRIN SQ SCH ×2 (10:20→21:39)
[2016-09-09] MEDS: FUROSEMIDE 20 MG TABLET (FP) GT SCH (11:00)
[2016-09-09] MEDS: CHLORHEXIDINE GLUCONATE 0.12% 15ML CUP MM SCH ×2 (11:00→21:40)
[2016-09-09] MEDS: prednisoLONE ACETATE 1% OPHTH SUSP 5 ML BOTTLE OD SCH ×2 (11:00→21:47)
[2016-09-09] MEDS ORDERED: POTASSIUM CHLORIDE ORAL LIQUID 20 MEQ/15 ML ONE (11:08)
[2016-09-09] MEDS ORDERED: MAGNESIUM SULF 50% (8.12 MEQ/2 ML-1 GM VIAL) ONE (11:08)
[2016-09-09] MEDS: POTASSIUM CHLORIDE ORAL LIQUID 20 MEQ/15 ML NGT SCH ×2 (12:00→14:56)
--- NOTE | 2016-09-09 12:11 | PN ---
Progress Note, Physician History of Present Illness: continues to be on vent thro trach low dose pressors - Current Medication List Current Medications: Active Medications Acetaminophen (Tylenol Oral Solution -) 650 mg PO Q6H PRN PRN Reason: FEVER OR PAIN Last Admin: 09/08/16 18:36 Dose: 650 mg Acetaminophen (Ofirmev Injection -) 1,000 mg IVPB Q6H PRN PRN Reason: FEVER OR PAIN Stop: 09/09/16 16:30 Last Admin: 09/08/16 23:18 Dose: 1,000 mg Chlorhexidine Gluconate (Peridex -) 15 ml MM BID [facility] Last Admin: 09/09/16 11:00 Dose: 15 ml Dextrose (D50w (Vial) -) 50 ml IVPUSH Q15M PRN PRN Reason: BLOOD SUGAR < 60 Enoxaparin Sodium (Lovenox -) 40 mg SQ BID [facility] Last Admin: 09/09/16 10:20 Dose: 40 mg Fluconazole (Diflucan -) 100 mg PO DAILY [facility] Last Admin: 09/09/16 10:31 Dose: Not Given Furosemide (Lasix -) 20 mg GT DAILY [facility] Last Admin: 09/09/16 11:00 Dose: 20 mg Fluconazole (Diflucan 200 Mg/D5w Premixed Ivpb -) 100 mls @ 100 mls/hr IVPB DAILY [facility] Last Admin: 09/09/16 10:19 Dose: 100 mls/hr Ceftazidime 1 gm/ Dextrose 50 mls @ 100 mls/hr IVPB Q8H-IV [facility] PRN Reason: Protocol Last Admin: 09/09/16 10:28 Dose: 100 mls/hr Phenylephrine HCl 20,000 mcg/ (Sodium Chloride) 250 mls @ 37.5 mls/hr IVPB ASDIR [facility]; 50 MCG/MIN PRN Reason: Protocol Last Titration: 09/09/16 11:26 Dose: 0 mcg/min Insulin Aspart (Novolog Vial Sliding Scale -) 1 vial SQ ACHS [facility] PRN Reason: Protocol Last Admin: 09/09/16 06:09 Dose: Not Given Insulin Detemir (Levemir Vial) 18 units SQ HS [facility] Last Admin: 09/08/16 22:07 Dose: Not Given Magnesium Sulfate (Magnesium Sulfate) 2 gm IVPB ONCE ONE Stop: 09/09/16 13:01 Miscellaneous (Duragesic Patch Waste) 1 each TD PRN PRN PRN Reason: PAIN Last Admin: 09/07/16 19:14 Dose: 1 each Morphine Sulfate (Morphine Injection -) 2 mg IVPUSH Q4H PRN PRN Reason: PAIN Last Admin: 09/07/16 17:44 Dose: 2 mg Ofloxacin (Ocuflox 0.3% Eye Drops -) 1 drop OD Q4HWA [facility] Last Admin: 09/09/16 10:45 Dose: 1 drop Potassium Chloride (Potassium Chloride Oral Liquid) 20 meq NGT Q2H [facility] Stop: 09/09/16 14:31 Prednisolone Acetate (Pred Forte 1% -) 1 drop OD BID [facility] Last Admin: 09/09/16 11:00 Dose: 1 drop Ranitidine HCl (Zantac Oral Solution -) 150 mg PO BID [facility] Last Admin: 09/09/16 10:20 Dose: 150 mg - Objective Vital Signs: Vital Signs Temperature 98.4 F 09/09/16 06:34 Pulse Rate 95 H 09/09/16 11:26 Respiratory Rate 16 09/09/16 11:50 Blood Pressure 130/67 09/09/16 11:26 O2 Sat by Pulse Oximetry (%) 100 09/09/16 10:02 Constitutional: Yes: Calm Cardiovascular: Yes: Regular Rate and Rhythm Respiratory: Yes: Mechanically Ventilated, Other (trach) Gastrointestinal: Yes: Normal Bowel Sounds, Soft Musculoskeletal: Yes: Other Extremities: Yes: Other (dry gangrene) Integumentary: Yes: Other Neurological: Yes: Alert Psychiatric: Yes: Alert Labs: CBC, BMP 09/09/16 05:50 09/09/16 05:50 INR, PTT INR 1.14 (0.82-1.09) 09/07/16 22:45 Fibrinogen > 700.0 mg/dL (238-498) H 07/31/16 05:40 Assessment/Plan Problem List - Problems (1) Abdominal pain Code(s): R10.9 - UNSPECIFIED ABDOMINAL PAIN Qualifiers: Qualified Code(s): R10.33 - Periumbilical pain (2) Perforated abdominal viscus Code(s): [id number] - (3) Perforated viscus Code(s): R19.8 - OTH SYMPTOMS AND SIGNS INVOLVING THE DGSTV SYS AND ABDOMEN (4) Hypertension Code(s): I10 - ESSENTIAL (PRIMARY) HYPERTENSION Qualifiers: Qualified Code(s): I10 - Essential (primary) hypertension lactic acidosis fevers generalized swelling gangrene of the tip of the fingers noted pseudomonas pneumonia plan conitnue abx continue close monitoring rest as per icu mgmt hydration nutrition cc time 40 min
[2016-09-09] MEDS ORDERED: MAGNESIUM SULF 50% (8.12 MEQ/2 ML-1 GM VIAL) IVPB ONE (13:00)
[2016-09-09] MEDS: ACETAMINOPHEN 1000 MG/100 ML VIAL (NON FORMULARY) IVPB PRN (14:00)
--- NOTE | 2016-09-09 14:31 | PN ---
Progress Note, Physician Chief Complaint: The patient seen in her bed. Unresponsive. No change in clinical status. Maintains good urine output. Low grade fever persists. - Current Medication List Current Medications: Active Medications Acetaminophen (Tylenol Oral Solution -) 650 mg PO Q6H PRN PRN Reason: FEVER OR PAIN Last Admin: 09/08/16 18:36 Dose: 650 mg Acetaminophen (Ofirmev Injection -) 1,000 mg IVPB Q6H PRN PRN Reason: FEVER OR PAIN Stop: 09/09/16 16:30 Last Admin: 09/08/16 23:18 Dose: 1,000 mg Chlorhexidine Gluconate (Peridex -) 15 ml MM BID [facility] Last Admin: 09/09/16 11:00 Dose: 15 ml Dextrose (D50w (Vial) -) 50 ml IVPUSH Q15M PRN PRN Reason: BLOOD SUGAR < 60 Enoxaparin Sodium (Lovenox -) 40 mg SQ BID [facility] Last Admin: 09/09/16 10:20 Dose: 40 mg Fluconazole (Diflucan -) 100 mg PO DAILY [facility] Last Admin: 09/09/16 10:31 Dose: Not Given Furosemide (Lasix -) 20 mg GT DAILY [facility] Last Admin: 09/09/16 11:00 Dose: 20 mg Fluconazole (Diflucan 200 Mg/D5w Premixed Ivpb -) 100 mls @ 100 mls/hr IVPB DAILY [facility] Last Admin: 09/09/16 10:19 Dose: 100 mls/hr Ceftazidime 1 gm/ Dextrose 50 mls @ 100 mls/hr IVPB Q8H-IV [facility] PRN Reason: Protocol Last Admin: 09/09/16 10:28 Dose: 100 mls/hr Phenylephrine HCl 20,000 mcg/ (Sodium Chloride) 250 mls @ 37.5 mls/hr IVPB ASDIR [facility]; 50 MCG/MIN PRN Reason: Protocol Last Titration: 09/09/16 11:26 Dose: 0 mcg/min Insulin Aspart (Novolog Vial Sliding Scale -) 1 vial SQ ACHS [facility] PRN Reason: Protocol Last Admin: 09/09/16 13:00 Dose: 2 units Insulin Detemir (Levemir Vial) 18 units SQ HS [facility] Last Admin: 09/08/16 22:07 Dose: Not Given Miscellaneous (Duragesic Patch Waste) 1 each TD PRN PRN PRN Reason: PAIN Last Admin: 09/07/16 19:14 Dose: 1 each Morphine Sulfate (Morphine Injection -) 2 mg IVPUSH Q4H PRN PRN Reason: PAIN Last Admin: 09/07/16 17:44 Dose: 2 mg Ofloxacin (Ocuflox 0.3% Eye Drops -) 1 drop OD Q4HWA [facility] Last Admin: 09/09/16 10:45 Dose: 1 drop Potassium Chloride (Potassium Chloride Oral Liquid) 20 meq NGT Q2H [facility] Stop: 09/09/16 14:31 Last Admin: 09/09/16 12:00 Dose: 20 meq Prednisolone Acetate (Pred Forte 1% -) 1 drop OD BID [facility] Last Admin: 09/09/16 11:00 Dose: 1 drop Ranitidine HCl (Zantac Oral Solution -) 150 mg PO BID [facility] Last Admin: 09/09/16 10:20 Dose: 150 mg - Objective Vital Signs: Vital Signs Temperature 100.6 F H 09/09/16 13:12 Pulse Rate 86 09/09/16 13:12 Respiratory Rate 16 09/09/16 13:12 Blood Pressure 145/69 09/09/16 13:12 O2 Sat by Pulse Oximetry (%) 100 09/09/16 10:02 Neck: Yes: Trachea Midline (tracheostomy) Cardiovascular: Yes: S1, S2 Respiratory: Yes: Regular, Mechanically Ventilated Gastrointestinal: Yes: Soft (G tube in place) Edema: No Neurological: Yes: Unresponsive Labs: CBC, BMP 09/09/16 05:50 09/09/16 05:50 INR, PTT INR 1.14 (0.82-1.09) 09/07/16 22:45 Fibrinogen > 700.0 mg/dL (238-498) H 07/31/16 05:40 Problem List - Problems (1) Perforated abdominal viscus Code(s): VFW0387 - (2) JAQUELINE (acute kidney injury) Code(s): N17.9 - ACUTE KIDNEY FAILURE, UNSPECIFIED (3) Hypomagnesemia Code(s): E83.42 - HYPOMAGNESEMIA (4) Metabolic acidemia Code(s): E87.2 - ACIDOSIS (5) Metabolic acidosis Code(s): E87.2 - ACIDOSIS (6) Hypokalemia Code(s): E87.6 - HYPOKALEMIA Assessment/Plan 65 y/o female with s/p Jaqueline. Renal functions improved since. S/p Perforated viscus, s/p colectomy. Tube feeding well tolerated. S/p respiratory failure, Vent. dependent. Irregular fever spikes. On IV Abx. Multiple gangrenous digits. Tube feeding dose increased. No specific changes in treatments suggested at this point from renal perspective. Any degree of aggressive modalities of therapy is unlikely to change the grave prognosis of this patient. Katty Singer MD
[2016-09-09] MEDS: INSULIN DETEMIR 100 UNITS/ML MDV SQ SCH (21:53)
[2016-09-10] MEDS: CEFTAZIDIME PENTAHYDRATE 1 GM in DEXTROSE 5%-WATER - 50 ML IVPB SCH ×3 (02:50→17:28)
[2016-09-10] MEDS: INSULIN SLIDING SCALE (NOVOLOG) 1 VIAL SQ SCH ×4 (06:07→21:47)
[2016-09-10] MEDS: OFLOXACIN 0.3% OPHTHALMIC SOLUTION 5 ML BOTTLE OD SCH ×4 (06:08→21:40)
[2016-09-10 06:16] LABS: BASOPHIL 0.6 % (0-2.0); EOSINOPHIL 1.9 % (0-4.5); MCH 27.8 pg (25.7-33.7); MCHC 32.1 g/dl (32.0-36.0); MEAN CELL VOLUME 86.6 fl (80-96); MEAN PLT VOLUME 7.9 fl (7.5-11.1); NEUTROPHILS 53.8 % (42.8-82.8); PLATELET COUNT 398 K/MM3 (134-434); RDW 15.7 % (11.6-15.6); WHITE BLOOD COUNT 9.7 K/mm3 (4.0-10.0)
[2016-09-10 06:47] LABS: ALBUMIN 1.6 g/dl (3.4-5.0); ALK PHOS 117 U/L (45-117); ANION GAP 9 (8-16); BILIRUBIN,TOTAL 0.2 mg/dL (0.2-1.0); CALCIUM 9.1 mg/dL (8.5-10.1); CO2 30 mmol/L (21-32); CREATININE 0.3 mg/dL (0.55-1.02); GLUCOSE,RANDOM 129 mg/dL (74-106); MAGNESIUM 1.5 mg/dL (1.8-2.4); PHOSPHOROUS 2.6 mg/dL (2.5-4.9); SGOT/AST 21 U/L (15-37); SGPT/ALT 20 U/L (12-78); TOT PROT 6.1 g/dl (6.4-8.2)
[2016-09-10] MEDS ORDERED: MAGNESIUM SULF 50% (8.12 MEQ/2 ML-1 GM VIAL) IVPB ONE (08:00)
--- NOTE | 2016-09-10 08:55 | PN ---
Physical Exam: SUBJECTIVE: 66 year old female s/p cardiac arrest and ROSC after 6 min ACLS. Pt is impoving today. She opens her eyes and is minimally able to respond to verbal commands by mouthing "yes" and "no". Improved to be able to move her arms. Patient is on a vent and in no acute distress. OBJECTIVE: Vital Signs Period Temp Pulse Resp BP Sys/Major Pulse Ox Last 24 Hr 99.3 F-100.6 F 84-98 12-25 118-145/57-80 96-100 GENERAL: The patient is awake, alert, and in no acute distress. Is not oriented to time, place, person HEAD: Normal with no signs of trauma. EYES: PERRL, extraocular movements intact, sclera anicteric, conjunctiva clear. No ptosis. ENT: Ears normal, nares patent, patient is on a trach and breathing on a vent NECK: Trachea midline, full range of motion, supple. Trach is noted LUNGS: Breath sounds equal, clear to auscultation bilaterally. Patient breathing on vent (AC) HEART: Regular rate and rhythm, S1, S2 without murmur, rub or gallop. ABDOMEN: Soft, nontender, nondistended, normoactive bowel sounds, no guarding, no rebound, no hepatosplenomegaly, no masses. EXTREMITIES: Gangrenous tissue noted on bilateral upper and lower extremities distally on hands and feet NEUROLOGICAL: Cranial nerves unable to be examined due to mental status PSYCH: Normal mood, normal affect. SKIN: Gangrene on b/l upper and lower extremities distally CBC,CMP WBC 9.7 K/mm3 (4.0-10.0) 09/10/16 05:45 RBC 2.62 M/mm3 (3.60-5.2) L 09/10/16 05:45 Hgb 7.3 GM/dL (10.7-15.3) L 09/10/16 05:45 Hct 22.7 % (32.4-45.2) L 09/10/16 05:45 MCV 86.6 fl (80-96) 09/10/16 05:45 MCHC 32.1 g/dl (32.0-36.0) 09/10/16 05:45 RDW 15.7 % (11.6-15.6) H 09/10/16 05:45 Plt Count 398 K/MM3 (134-434) 09/10/16 05:45 MPV 7.9 fl (7.5-11.1) 09/10/16 05:45 Neutrophils % 53.8 % (42.8-82.8) 09/10/16 05:45 Lymphocytes % 34.8 % (8-40) 09/10/16 05:45 Monocytes % 8.9 % (3.8-10.2) 09/10/16 05:45 Eosinophils % 1.9 % (0-4.5) 09/10/16 05:45 Basophils % 0.6 % (0-2.0) 09/10/16 05:45 Band Neutrophils 2.0 % (0-10) D 09/07/16 22:45 Metamyelocytes 3 % (0-2) H D 08/07/16 05:30 Myelocytes 1 % (0-2) D 08/13/16 05:30 Nucleated RBCs 1 % (0-0) H 08/03/16 05:20 Differential Comment Manual diff done 08/13/16 05:30 Reactive Lymphocytes 1 % (0-80) 07/29/16 05:30 Plasma Cells 1 (0-20) 08/01/16 10:00 Smudge Cells 1 08/03/16 05:20 Toxic Granulation 1+ 07/20/16 05:30 Dohle Bodies 2+ 07/20/16 05:30 Platelet Estimate Increased (NORMAL) 08/19/16 05:30 Platelet Comment No clumping noted 08/03/16 05:20 Platelet Comment No clotting detected 08/02/16 05:40 Polychromasia 1+ 08/02/16 05:40 Hypochromic-Microcytic 1+ 08/18/16 01:37 Poikilocytosis 1+ 08/02/16 05:40 Anisocytosis 1+ 08/18/16 01:37 Target Cells 2+ 07/28/16 05:35 [place] Cells 1+ 07/20/16 05:30 Haptoglobin 269 mg/dL (34-200) H 07/24/16 05:30 Sodium 145 mmol/L (136-145) 09/10/16 05:45 Potassium 3.6 mmol/L (3.5-5.1) 09/10/16 05:45 Chloride 106 mmol/L (98-107) 09/10/16 05:45 Carbon Dioxide 30 mmol/L (21-32) 09/10/16 05:45 Anion Gap 9 (8-16) 09/10/16 05:45 BUN 8 mg/dL (7-18) D 09/10/16 05:45 Creatinine 0.3 mg/dL (0.55-1.02) L 09/10/16 05:45 Creat Clearance w eGFR > 60 (>60) 09/10/16 05:45 POC Glucometer 141.44241 UNITS (()) 09/09/16 06:08 Random Glucose 129 mg/dL (74-106) H 09/10/16 05:45 Hemoglobin A1c % 7.4 % (4.8-6.0) H D 08/27/16 06:30 Lactic Acid 1.6 mmol/L (0.4-2.0) 09/07/16 22:45 Calcium 9.1 mg/dL (8.5-10.1) 09/10/16 05:45 Phosphorus 2.6 mg/dL (2.5-4.9) 09/10/16 05:45 Magnesium 1.5 mg/dL (1.8-2.4) L 09/10/16 05:45 Direct Bilirubin 0.2 mg/dL (0.0-0.2) D 08/05/16 05:30 Total Bilirubin 0.2 mg/dL (0.2-1.0) D 09/10/16 05:45 AST 21 U/L (15-37) 09/10/16 05:45 ALT 20 U/L (12-78) 09/10/16 05:45 Alkaline Phosphatase 117 U/L (45-117) 09/10/16 05:45 LD Total 562 U/L (84-246) H 07/24/16 05:30 CK-MB (CK-2) 4.85 ng/ml (0.5-3.6) H 07/16/16 10:42 Ammonia 64.01 umol/L (11-32) H 09/07/16 22:45 Creatine Kinase 51 IU/L (26-192) 09/09/16 05:50 Troponin I 1.39 ng/ml (0.00-0.05) H* 09/09/16 21:45 Total Protein 6.1 g/dl (6.4-8.2) L 09/10/16 05:45 Albumin 1.6 g/dl (3.4-5.0) L 09/10/16 05:45 Triglycerides 215 mg/dL (35-160) H 08/05/16 05:30 Lipase 128 U/L (73-393) 07/16/16 10:19 Cortisol AM Sample 9.5 ug/dL (.) 07/19/16 05:30 Active Medications Generic Name Dose Route Start Last Admin Trade Name Freq PRN Reason Stop Dose Admin Acetaminophen 650 mg 09/04/16 08:48 09/08/16 18:36 Tylenol Oral Solution - PO 650 mg Q6H PRN Administration FEVER OR PAIN Chlorhexidine Gluconate 15 ml 08/13/16 22:00 09/09/16 21:40 Peridex - MM 15 ml BID [facility] Administration Dextrose 50 ml 08/13/16 19:11 D50w (Vial) - IVPUSH Q15M PRN BLOOD SUGAR < 60 Enoxaparin Sodium 40 mg 09/07/16 22:00 09/09/16 21:39 Lovenox - SQ 40 mg BID [facility] Administration Furosemide 20 mg 08/30/16 10:00 09/09/16 11:00 Lasix - GT 20 mg DAILY [facility] Administration Ceftazidime 1 gm/ Dextrose 50 mls @ 100 mls/hr 09/03/16 15:00 09/10/16 02:50 IVPB 100 mls/hr Q8H-IV [facility] Administration Protocol Insulin Aspart 1 vial 08/13/16 22:00 09/10/16 06:07 Novolog Vial Sliding Scale - SQ Not Given ACHS [facility] Protocol Insulin Detemir 18 units 08/30/16 12:50 09/09/16 21:53 Levemir Vial SQ 18 units HS [facility] Administration Miscellaneous 1 each 08/13/16 19:11 09/07/16 19:14 Duragesic Patch Waste TD 1 each PRN PRN Administration PAIN Ofloxacin 1 drop 08/27/16 14:00 09/10/16 06:08 Ocuflox 0.3% Eye Drops - OD 1 drop Q4HWA [facility] Administration Prednisolone Acetate 1 drop 08/27/16 14:00 09/09/16 21:47 Pred Forte 1% - OD 1 drop BID [facility] Administration Ranitidine HCl 150 mg 09/04/16 10:00 09/09/16 21:39 Zantac Oral Solution - PO 150 mg BID [facility] Administration ASSESSMENT/PLAN: 66 year old female s/p cardiac arrest in PEA and ROSC after 6 min ACLS. Patient is doing well on vent and is pending transfer to [address] [place] [address]. Pulmonary: patient breathing on vent/ac. -monitor breathing Cardiac: -patient is off pressors -monitor BP FEN: -as per nurse, patient's feeding tube is leaking - unsure if pt is receiving any of her feeds Dispo: -transfer to [address] [place] [address] -continue all medications from ICU Problem List - Problems (1) Cardiac arrest due to respiratory disorder Code(s): J98.9 - RESPIRATORY DISORDER, UNSPECIFIED I46.8 - CARDIAC ARREST DUE TO OTHER UNDERLYING CONDITION Visit type - Emergency Visit Emergency Visit: No - New Patient This patient is new to me today: No - Critical Care Critical Care patient: Yes Total Critical Care Time (in minutes): 120 Critical Care Statement: The care of this patient involved high complexity decision making to prevent further life threatening deterioration of the patient 's condition and/or to evalute & treat vital organ system(s) failure or risk of failure.
[2016-09-10] MEDS: CHLORHEXIDINE GLUCONATE 0.12% 15ML CUP MM SCH ×2 (09:13→21:20)
[2016-09-10] MEDS: RANITIDINE HCL 150 MG/10 ML UNIT-DOSE CUP PO SCH ×2 (09:13→21:20)
[2016-09-10] MEDS: ENOXAPARIN NA (PORCINE) 40 MG/0.4 ML DISP.SYRIN SQ SCH ×2 (09:13→21:19)
[2016-09-10] MEDS: FUROSEMIDE 20 MG TABLET (FP) GT SCH (09:14)
[2016-09-10] MEDS: prednisoLONE ACETATE 1% OPHTH SUSP 5 ML BOTTLE OD SCH ×2 (10:13→21:40)
--- NOTE | 2016-09-10 10:48 | PN ---
Teaching Attending Note Name of Resident: Jer Joseph ATTENDING PHYSICIAN STATEMENT I saw and evaluated the patient. I reviewed the resident's note and discussed the case with the resident. I agree with the resident's findings and plan as documented. SUBJECTIVE: Pt seen and examined in the ICU. Remains vented, more awake today. Off pressors. OBJECTIVE: Last Vital Signs Temp Pulse Resp BP Pulse Ox 99.6 F 81 18 117/65 96 09/10/16 10:00 09/10/16 10:00 09/10/16 10:00 09/10/16 10:00 09/09/16 22:06 Intake & Output 09/07/16 09/08/16 09/09/16 09/10/16 23:59 23:59 23:59 23:59 Intake Total 1850 2690 870 530 Output Total 1182 1070 940 600 Balance 668 1620 -70 -70 Weight 135 lb 2.294 oz 129 lb 12.8 oz Gen: vented, more awake Heart: RRR Lung: decreased breath sounds at the bases Abd: soft, nontender Ext: no edema, gangrenous feet, fingers CBC, BMP 09/10/16 05:45 09/10/16 05:45 Active Medications Acetaminophen (Tylenol Oral Solution -) 650 mg PO Q6H PRN PRN Reason: FEVER OR PAIN Last Admin: 09/08/16 18:36 Dose: 650 mg Chlorhexidine Gluconate (Peridex -) 15 ml MM BID [facility] Last Admin: 09/10/16 09:13 Dose: 15 ml Dextrose (D50w (Vial) -) 50 ml IVPUSH Q15M PRN PRN Reason: BLOOD SUGAR < 60 Enoxaparin Sodium (Lovenox -) 40 mg SQ BID [facility] Last Admin: 09/10/16 09:13 Dose: 40 mg Furosemide (Lasix -) 20 mg GT DAILY [facility] Last Admin: 09/10/16 09:14 Dose: 20 mg Ceftazidime 1 gm/ Dextrose 50 mls @ 100 mls/hr IVPB Q8H-IV [facility] PRN Reason: Protocol Last Admin: 09/10/16 10:12 Dose: 100 mls/hr Insulin Aspart (Novolog Vial Sliding Scale -) 1 vial SQ ACHS [facility] PRN Reason: Protocol Last Admin: 09/10/16 06:07 Dose: Not Given Insulin Detemir (Levemir Vial) 18 units SQ HS [facility] Last Admin: 09/09/16 21:53 Dose: 18 units Miscellaneous (Duragesic Patch Waste) 1 each TD PRN PRN PRN Reason: PAIN Last Admin: 09/07/16 19:14 Dose: 1 each Ofloxacin (Ocuflox 0.3% Eye Drops -) 1 drop OD Q4HWA [facility] Last Admin: 09/10/16 10:13 Dose: 1 drop Prednisolone Acetate (Pred Forte 1% -) 1 drop OD BID [facility] Last Admin: 09/10/16 10:13 Dose: 1 drop Ranitidine HCl (Zantac Oral Solution -) 150 mg PO BID [facility] Last Admin: 09/10/16 09:13 Dose: 150 mg ASSESSMENT AND PLAN: Perforated Duodenal Ulcer Peritonitis s/p ex-lap/omental patch repair 07/16 Enterocutaneous Fistula Acute Respiratory Failure s/p Tracheostomy s/p Septic Shock DM DVT Gangrene s/p PEA Cardiac Arrest - monitoring off pressors, maintain MAP >65 - antibiotics per ID - taper Fio2 to keep Spo2 >90% - continue anticoagulation - enteral feeds as tolerated - placed on SIMV, wean as tolerated - DVT/GI prophylaxis - prognosis is poor, continue discussions regarding advanced directives and goals of care - recommend palliative due to failure to wean, anticipated amputations, poor quality of life
--- NOTE | 2016-09-10 11:56 | PN ---
Progress Note (short form) - Note Progress Note: Renal Follow up for ZAHIRA/Metabolic acidosis Pt seen and examined in the ICU awake and alert but confused as per ICU nursing staff remains on vent via trach FiO2 is 40% no diarrhea good urine output on G-tube feeds Vital Signs Temperature 99.6 F 09/10/16 10:00 Pulse Rate 80 09/10/16 11:48 Respiratory Rate 18 09/10/16 11:48 Blood Pressure 116/61 09/10/16 11:48 O2 Sat by Pulse Oximetry (%) 99 09/10/16 11:28 Intake & Output 09/07/16 09/08/16 09/09/16 09/10/16 23:59 23:59 23:59 23:59 Intake Total 1850 2690 870 530 Output Total 1182 1070 940 600 Balance 668 1620 -70 -70 Weight 135 lb 2.294 oz 129 lb 12.8 oz Gen: on Vent, NAD CVS: RRR, No M/R Lungs: Dec BS b/l lung andino Ext: no edema in LE or at the sacrum CBC, BMP 09/10/16 05:45 09/10/16 05:45 Laboratory Tests 09/10/16 05:45 Calcium 9.1 Phosphorus 2.6 Magnesium 1.5 L Albumin 1.6 L Current Medications Acetaminophen (Tylenol Oral Solution -) 650 mg PO Q6H PRN PRN Reason: FEVER OR PAIN Last Admin: 09/08/16 18:36 Dose: 650 mg Chlorhexidine Gluconate (Peridex -) 15 ml MM BID [facility] Last Admin: 09/10/16 09:13 Dose: 15 ml Dextrose (D50w (Vial) -) 50 ml IVPUSH Q15M PRN PRN Reason: BLOOD SUGAR < 60 Enoxaparin Sodium (Lovenox -) 40 mg SQ BID [facility] Last Admin: 09/10/16 09:13 Dose: 40 mg Furosemide (Lasix -) 20 mg GT DAILY [facility] Last Admin: 09/10/16 09:14 Dose: 20 mg Ceftazidime 1 gm/ Dextrose 50 mls @ 100 mls/hr IVPB Q8H-IV [facility] PRN Reason: Protocol Last Admin: 09/10/16 10:12 Dose: 100 mls/hr Insulin Aspart (Novolog Vial Sliding Scale -) 1 vial SQ ACHS [facility] PRN Reason: Protocol Last Admin: 09/10/16 06:07 Dose: Not Given Insulin Detemir (Levemir Vial) 18 units SQ HS [facility] Last Admin: 09/09/16 21:53 Dose: 18 units Miscellaneous (Duragesic Patch Waste) 1 each TD PRN PRN PRN Reason: PAIN Last Admin: 09/07/16 19:14 Dose: 1 each Ofloxacin (Ocuflox 0.3% Eye Drops -) 1 drop OD Q4HWA [facility] Last Admin: 09/10/16 10:13 Dose: 1 drop Prednisolone Acetate (Pred Forte 1% -) 1 drop OD BID [facility] Last Admin: 09/10/16 10:13 Dose: 1 drop Ranitidine HCl (Zantac Oral Solution -) 150 mg PO BID [facility] Last Admin: 09/10/16 09:13 Dose: 150 mg A/P 65 year old woman with PMhx of hypertension, hypercholesterolemia, diabetes mellitus who presented with Abd pain and found to have perforated Abd viscus s/ p emergent Sx now with Septic Shock, ZAHIRA and Metabolic Acidosis. #Sepsis/Perforated Abd Viscus/Abscess ICU monitoring Vent support Abx as per ID Surgical follow up #Hypomagnesemia S/p IV supplementation No currently on PPI that could lower absorption of Mg #Edema/Pulmonary vascular congestion continue Lasix via G-tube if pulmonary vascular congestion does not improve and pt continues to fail weaning trials can consider increasing the dose Cyril Tubbs DO
--- NOTE | 2016-09-10 15:06 | PN ---
Progress Note, Physician Chief Complaint: No new complaints History of Present Illness: On respirator - Current Medication List Current Medications: Active Medications Acetaminophen (Tylenol Oral Solution -) 650 mg PO Q6H PRN PRN Reason: FEVER OR PAIN Last Admin: 09/08/16 18:36 Dose: 650 mg Chlorhexidine Gluconate (Peridex -) 15 ml MM BID [facility] Last Admin: 09/10/16 09:13 Dose: 15 ml Dextrose (D50w (Vial) -) 50 ml IVPUSH Q15M PRN PRN Reason: BLOOD SUGAR < 60 Enoxaparin Sodium (Lovenox -) 40 mg SQ BID [facility] Last Admin: 09/10/16 09:13 Dose: 40 mg Furosemide (Lasix -) 20 mg GT DAILY [facility] Last Admin: 09/10/16 09:14 Dose: 20 mg Ceftazidime 1 gm/ Dextrose 50 mls @ 100 mls/hr IVPB Q8H-IV [facility] PRN Reason: Protocol Last Admin: 09/10/16 10:12 Dose: 100 mls/hr Insulin Aspart (Novolog Vial Sliding Scale -) 1 vial SQ ACHS [facility] PRN Reason: Protocol Last Admin: 09/10/16 12:20 Dose: Not Given Insulin Detemir (Levemir Vial) 18 units SQ HS [facility] Last Admin: 09/09/16 21:53 Dose: 18 units Miscellaneous (Duragesic Patch Waste) 1 each TD PRN PRN PRN Reason: PAIN Last Admin: 09/07/16 19:14 Dose: 1 each Ofloxacin (Ocuflox 0.3% Eye Drops -) 1 drop OD Q4HWA [facility] Last Admin: 09/10/16 10:13 Dose: 1 drop Prednisolone Acetate (Pred Forte 1% -) 1 drop OD BID [facility] Last Admin: 09/10/16 10:13 Dose: 1 drop Ranitidine HCl (Zantac Oral Solution -) 150 mg PO BID [facility] Last Admin: 09/10/16 09:13 Dose: 150 mg - Objective Vital Signs: Vital Signs Temperature 100.3 F H 09/10/16 14:00 Pulse Rate 85 09/10/16 14:00 Respiratory Rate 13 09/10/16 14:26 Blood Pressure 117/57 09/10/16 14:00 O2 Sat by Pulse Oximetry (%) 99 09/10/16 11:28 Constitutional: Yes: Moderate Distress Eyes: Yes: WNL, Conjunctiva Clear HENT: Yes: WNL Neck: Yes: Other (Tracheostomy tube in place) Respiratory: Yes: Mechanically Ventilated Gastrointestinal: Yes: Normal Bowel Sounds ...Rectal Exam: Yes: Deferred Edema: No Labs: CBC, BMP 09/10/16 05:45 09/10/16 05:45 INR, PTT INR 1.14 (0.82-1.09) 09/07/16 22:45 Fibrinogen > 700.0 mg/dL (238-498) H 07/31/16 05:40 Assessment/Plan Continue same trt Can be transferred to regular floor
[2016-09-10] MEDS ORDERED: morphine CARPU-JECT 2 MG/1 ML DISP.SYRIN IVPUSH ONE (16:25)
[2016-09-10] MEDS ORDERED: morphine CARPU-JECT 2 MG/1 ML DISP.SYRIN ONE (16:26)
[2016-09-10] MEDS ORDERED: PT OWN MED DRAWER 7, Y5N ONE (17:28)
[2016-09-10] MEDS: INSULIN DETEMIR 100 UNITS/ML MDV SQ SCH (21:48)
[2016-09-11] MEDS: CEFTAZIDIME PENTAHYDRATE 1 GM in DEXTROSE 5%-WATER - 50 ML IVPB SCH ×3 (01:16→18:05)
[2016-09-11] MEDS: OFLOXACIN 0.3% OPHTHALMIC SOLUTION 5 ML BOTTLE OD SCH ×5 (06:31→22:48)
[2016-09-11] MEDS: INSULIN SLIDING SCALE (NOVOLOG) 1 VIAL SQ SCH ×4 (06:31→23:01)
--- NOTE | 2016-09-11 08:23 | PN ---
Physical Exam: SUBJECTIVE: 66 year old female s/p cardiac arrest and ROSC after 6 min ACLS. Pt is unchanged today compared to yesterday. She opens her eyes and is minimally able to respond to verbal commands by mouthing "yes" and "no". Able to move her arms. Patient is on a vent and in no acute distress. OBJECTIVE: Vital Signs Period Temp Pulse Resp BP Sys/Major Pulse Ox Last 24 Hr 99.6 F-100.3 F 70-87 12-19 111-133/57-66 98-100 GENERAL: The patient is awake, alert, and in no acute distress. Is not oriented to time, place, person HEAD: Normal with no signs of trauma. EYES: PERRL, extraocular movements intact, sclera anicteric, conjunctiva clear. No ptosis. ENT: Ears normal, nares patent, patient is on a trach and breathing on a vent NECK: Trachea midline, full range of motion, supple. Trach is noted LUNGS: Breath sounds equal, clear to auscultation bilaterally. Patient breathing on vent (AC) HEART: Regular rate and rhythm, S1, S2 without murmur, rub or gallop. ABDOMEN: Soft, nontender, nondistended, normoactive bowel sounds, no guarding, no rebound, no hepatosplenomegaly, no masses. EXTREMITIES: Gangrenous tissue noted on bilateral upper and lower extremities distally on hands and feet NEUROLOGICAL: Cranial nerves unable to be examined due to mental status PSYCH: Normal mood, normal affect. SKIN: Gangrene on b/l upper and lower extremities distally Labs: 09/11 labs pending Active Medications Generic Name Dose Route Start Last Admin Trade Name Sigifredo PRN Reason Stop Dose Admin Acetaminophen 650 mg 09/04/16 08:48 09/08/16 18:36 Tylenol Oral Solution - PO 650 mg Q6H PRN Administration FEVER OR PAIN Chlorhexidine Gluconate 15 ml 08/13/16 22:00 09/10/16 21:20 Peridex - MM 15 ml BID [facility] Administration Dextrose 50 ml 08/13/16 19:11 D50w (Vial) - IVPUSH Q15M PRN BLOOD SUGAR < 60 Enoxaparin Sodium 40 mg 09/07/16 22:00 09/10/16 21:19 Lovenox - SQ 40 mg BID [facility] Administration Furosemide 20 mg 08/30/16 10:00 09/10/16 09:14 Lasix - GT 20 mg DAILY [facility] Administration Ceftazidime 1 gm/ Dextrose 50 mls @ 100 mls/hr 09/03/16 15:00 09/11/16 01:16 IVPB 100 mls/hr Q8H-IV [facility] Administration Protocol Insulin Aspart 1 vial 08/13/16 22:00 09/11/16 06:31 Novolog Vial Sliding Scale - SQ Not Given ACHS [facility] Protocol Insulin Detemir 18 units 08/30/16 12:50 09/10/16 21:48 Levemir Vial SQ 18 units HS [facility] Administration Miscellaneous 1 each 08/13/16 19:11 09/07/16 19:14 Duragesic Patch Waste TD 1 each PRN PRN Administration PAIN Ofloxacin 1 drop 08/27/16 14:00 09/11/16 06:31 Ocuflox 0.3% Eye Drops - OD 1 drop Q4HWA [facility] Administration Prednisolone Acetate 1 drop 08/27/16 14:00 09/10/16 21:40 Pred Forte 1% - OD 1 drop BID [facility] Administration Ranitidine HCl 150 mg 09/04/16 10:00 09/10/16 21:20 Zantac Oral Solution - PO 150 mg BID [facility] Administration ASSESSMENT/PLAN: 66 year old female s/p cardiac arrest in PEA and ROSC after 6 min ACLS. Patient is doing well on vent. Mental status is mildly improved. 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 -awaiting new tube to be placed by [employer] tomorrow -monitor breathing Cardiac: -patient is off pressors -monitor BP FEN: -patient's feeding tube is leaking, GI will wait until trach procedure before attempting to Dispo: -patient is awaiting new breathing tube tomorrow, family is arriving at 12pm tomorrow (09/12) -continue all medications Problem List - Problems (1) Cardiac arrest due to respiratory disorder Code(s): J98.9 - RESPIRATORY DISORDER, UNSPECIFIED I46.8 - CARDIAC ARREST DUE TO OTHER UNDERLYING CONDITION Visit type - Emergency Visit Emergency Visit: No - New Patient This patient is new to me today: No - Critical Care Critical Care patient: Yes Total Critical Care Time (in minutes): 120 Critical Care Statement: The care of this patient involved high complexity decision making to prevent further life threatening deterioration of the patient 's condition and/or to evalute & treat vital organ system(s) failure or risk of failure.
[2016-09-11] MEDS ORDERED: PT OWN MED DRAWER 7, Y5N ONE ×2 (09:01→18:04)
[2016-09-11 09:13] LABS: MCH 28.1 pg (25.7-33.7); MCHC 32.6 g/dl (32.0-36.0); MEAN CELL VOLUME 86.2 fl (80-96); MEAN PLT VOLUME 7.6 fl (7.5-11.1); PLATELET COUNT 405 K/MM3 (134-434); RDW 15.8 % (11.6-15.6); WHITE BLOOD COUNT 10.4 K/mm3 (4.0-10.0)
[2016-09-11] MEDS: RANITIDINE HCL 150 MG/10 ML UNIT-DOSE CUP PO SCH ×2 (09:15→22:49)
[2016-09-11] MEDS: ACETAMINOPHEN 650 MG/20.3 ML ORAL SOLUTION (CUPS) PO PRN ×2 (09:15→22:49)
[2016-09-11] MEDS: ENOXAPARIN NA (PORCINE) 40 MG/0.4 ML DISP.SYRIN SQ SCH ×2 (09:15→22:49)
[2016-09-11] MEDS: FUROSEMIDE 20 MG TABLET (FP) GT SCH (09:16)
[2016-09-11] MEDS: prednisoLONE ACETATE 1% OPHTH SUSP 5 ML BOTTLE OD SCH ×2 (09:16→22:48)
[2016-09-11 09:42] LABS: ANION GAP 5 (8-16); CALCIUM 9.2 mg/dL (8.5-10.1); CO2 32 mmol/L (21-32); CREATININE 0.3 mg/dL (0.55-1.02); GLUCOSE,RANDOM 143 mg/dL (74-106); MAGNESIUM 1.5 mg/dL (1.8-2.4)
[2016-09-11] MEDS: CHLORHEXIDINE GLUCONATE 0.12% 15ML CUP MM SCH ×2 (10:00→22:49)
--- NOTE | 2016-09-11 12:17 | PN ---
Progress Note (short form) - Note Progress Note: Renal Follow up for ZAHIRA/Metabolic acidosis Pt seen and examined in the ICU febrile this am BP stable on Vent Vital Signs Temperature 100.9 F H 09/11/16 10:00 Pulse Rate 88 09/11/16 11:46 Respiratory Rate 12 09/11/16 11:46 Blood Pressure 144/67 09/11/16 11:46 O2 Sat by Pulse Oximetry (%) 97 09/11/16 10:45 Intake & Output 09/08/16 09/09/16 09/10/16 09/11/16 23:59 23:59 23:59 23:59 Intake Total 2690 870 1010 480 Output Total 8108 184 6822 250 Balance 9810 -70 -805 230 Weight 135 lb 2.294 oz 129 lb 12.8 oz 130 lb Gen: on Vent, NAD CVS: RRR, No M/R Lungs: Dec BS b/l lung andino Ext: no edema in LE or at the sacrum CBC, BMP 09/11/16 09:00 09/11/16 09:00 Current Medications Acetaminophen (Tylenol Oral Solution -) 650 mg PO Q6H PRN PRN Reason: FEVER OR PAIN Last Admin: 09/11/16 09:15 Dose: 650 mg Chlorhexidine Gluconate (Peridex -) 15 ml MM BID [facility] Last Admin: 09/10/16 21:20 Dose: 15 ml Dextrose (D50w (Vial) -) 50 ml IVPUSH Q15M PRN PRN Reason: BLOOD SUGAR < 60 Enoxaparin Sodium (Lovenox -) 40 mg SQ BID [facility] Last Admin: 09/11/16 09:15 Dose: 40 mg Furosemide (Lasix -) 20 mg GT DAILY [facility] Last Admin: 09/11/16 09:16 Dose: 20 mg Ceftazidime 1 gm/ Dextrose 50 mls @ 100 mls/hr IVPB Q8H-IV [facility] PRN Reason: Protocol Last Admin: 09/11/16 09:14 Dose: 100 mls/hr Magnesium Sulfate 4 gm/ (Miscellaneous) 100 mls @ 100 mls/hr IVPB ONCE ONE Stop: 09/11/16 13:13 Insulin Aspart (Novolog Vial Sliding Scale -) 1 vial SQ ACHS [facility] PRN Reason: Protocol Last Admin: 09/11/16 06:31 Dose: Not Given Insulin Detemir (Levemir Vial) 18 units SQ HS [facility] Last Admin: 09/10/16 21:48 Dose: 18 units Magnesium Oxide (Mag-Ox -) 400 mg GT BID [facility] Miscellaneous (Duragesic Patch Waste) 1 each TD PRN PRN PRN Reason: PAIN Last Admin: 09/07/16 19:14 Dose: 1 each Ofloxacin (Ocuflox 0.3% Eye Drops -) 1 drop OD Q4HWA [facility] Last Admin: 09/11/16 09:15 Dose: 1 drop Prednisolone Acetate (Pred Forte 1% -) 1 drop OD BID [facility] Last Admin: 09/11/16 09:16 Dose: 1 drop Ranitidine HCl (Zantac Oral Solution -) 150 mg PO BID [facility] Last Admin: 09/11/16 09:15 Dose: 150 mg A/P 65 year old woman with PMhx of hypertension, hypercholesterolemia, diabetes mellitus who presented with Abd pain and found to have perforated Abd viscus s/ p emergent Sx now with Septic Shock, ZAHIRA and Metabolic Acidosis. #Sepsis/Perforated Abd Viscus/Abscess ICU monitoring Vent support Abx as per ID Surgical follow up #Hypomagnesemia will give IV mag sulfate 4g IV today start oral mag oxide 400mg BId via Gt #Edema/Pulmonary vascular congestion continue Lasix via G-tube if pulmonary vascular congestion does not improve and pt continues to fail weaning trials can consider increasing the dose Cyril Tubbs DO
[2016-09-11] MEDS ORDERED: ACETAMINOPHEN 1000 MG/100 ML VIAL (NON FORMULARY) IVPB PRN (13:07)
[2016-09-11] MEDS ORDERED: FENTANYL PATCH WASTE TD PRN (13:16)
--- NOTE | 2016-09-11 13:21 | PN ---
Teaching Attending Note Name of Resident: Jer Joseph ATTENDING PHYSICIAN STATEMENT I saw and evaluated the patient. I reviewed the resident's note and discussed the case with the resident. I agree with the resident's findings and plan as documented. SUBJECTIVE: Patient seen and examined in the ICU. Awake on AC mode of vent. Off pressors. Vent with high PIP (40's). Adequate VT and minute ventilation on current settings. OBJECTIVE: Intake & Output 09/08/16 09/09/16 09/10/16 09/11/16 23:59 23:59 23:59 23:59 Intake Total 2690 870 1010 480 Output Total 2019 729 6943 250 Balance 3690 70 -795 230 Weight 135 lb 2.294 oz 129 lb 12.8 oz 130 lb Last Vital Signs Temp Pulse Resp BP Pulse Ox 100.9 F H 88 12 144/67 97 09/11/16 10:00 09/11/16 11:46 09/11/16 11:46 09/11/16 11:46 09/11/16 10:45 Active Medications Acetaminophen (Tylenol Oral Solution -) 650 mg PO Q6H PRN PRN Reason: FEVER OR PAIN Last Admin: 09/11/16 09:15 Dose: 650 mg Acetaminophen (Ofirmev Injection -) 1,000 mg IVPB Q6H PRN PRN Reason: FEVER OR PAIN Stop: 09/12/16 07:08 Chlorhexidine Gluconate (Peridex -) 15 ml MM BID [facility] Last Admin: 09/10/16 21:20 Dose: 15 ml Dextrose (D50w (Vial) -) 50 ml IVPUSH Q15M PRN PRN Reason: BLOOD SUGAR < 60 Enoxaparin Sodium (Lovenox -) 40 mg SQ BID [facility] Last Admin: 09/11/16 09:15 Dose: 40 mg Fentanyl (Duragesic 25mcg Patch -) 1 patch TD Q72H [facility] Stop: 09/18/16 13:17 Furosemide (Lasix -) 20 mg GT DAILY [facility] Last Admin: 09/11/16 09:16 Dose: 20 mg Ceftazidime 1 gm/ Dextrose 50 mls @ 100 mls/hr IVPB Q8H-IV [facility] PRN Reason: Protocol Last Admin: 09/11/16 09:14 Dose: 100 mls/hr Magnesium Sulfate 4 gm/ (Miscellaneous) 100 mls @ 100 mls/hr IVPB ONCE ONE Stop: 09/11/16 13:13 Insulin Aspart (Novolog Vial Sliding Scale -) 1 vial SQ ACHS [facility] PRN Reason: Protocol Last Admin: 09/11/16 06:31 Dose: Not Given Insulin Detemir (Levemir Vial) 18 units SQ HS [facility] Last Admin: 09/10/16 21:48 Dose: 18 units Magnesium Oxide (Mag-Ox -) 400 mg GT BID [facility] Miscellaneous (Duragesic Patch Waste) 1 each TD PRN PRN PRN Reason: PAIN Last Admin: 09/07/16 19:14 Dose: 1 each Miscellaneous (Duragesic Patch Waste) 1 each MC PRN PRN PRN Reason: PAIN Ofloxacin (Ocuflox 0.3% Eye Drops -) 1 drop OD Q4HWA [facility] Last Admin: 09/11/16 09:15 Dose: 1 drop Prednisolone Acetate (Pred Forte 1% -) 1 drop OD BID [facility] Last Admin: 09/11/16 09:16 Dose: 1 drop Ranitidine HCl (Zantac Oral Solution -) 150 mg PO BID [facility] Last Admin: 09/11/16 09:15 Dose: 150 mg Gen: vented, awake Heart: RRR Lung: decreased breath sounds at the bases, few rhonchi Abd: soft, (+) BS, intact feeding tube Ext: no edema, gangrenous feet, fingers Laboratory Results - last 24 hr 09/10/16 09/10/16 09/11/16 16:10 21:43 06:27 WBC RBC Hgb Hct MCV MCHC RDW Plt Count MPV Sodium Potassium Chloride Carbon Dioxide Anion Gap BUN Creatinine POC Glucometer 143.41676 140.88116 117.17543 Random Glucose Calcium Magnesium 09/11/16 09/11/16 09/11/16 09:00 09:00 12:44 WBC 10.4 H RBC 2.76 L Hgb 7.8 L Hct 23.8 L MCV 86.2 MCHC 32.6 RDW 15.8 H Plt Count 405 MPV 7.6 Sodium 145 Potassium 3.5 Chloride 108 H Carbon Dioxide 32 Anion Gap 5 L BUN 8 Creatinine 0.3 L POC Glucometer 180.77416 Random Glucose 143 H Calcium 9.2 Magnesium 1.5 L ASSESSMENT AND PLAN: Perforated Duodenal Ulcer Peritonitis s/p ex-lap/omental patch repair 07/16 Enterocutaneous Fistula Acute Respiratory Failure s/p Tracheostomy s/p Septic Shock DM DVT Gangrene s/p PEA Cardiac Arrest Tracheal granulation tissue - ABX per ID - taper Fio2 to keep Spo2 >90% - AC - enteral feeds as tolerated - XL Trach ordered - DVT/GI prophylaxis - prognosis is poor, continue discussions regarding advanced directives and goals of care - recommend palliative care due to failure to wean, anticipated amputations, poor quality of life. previously stated that Crystal would not want to live in a chronic care facility on chronic mechanical support. Dr Dubon critical care time spent in reviewing chart, evaluating patient and formulating plan 35 min
[2016-09-11] MEDS: fentaNYL 25mcg/hr PATCH.TD72 TD SCH (14:02)
[2016-09-11] MEDS: MAGNESIUM SULF 50% (8.12 MEQ/2 ML-1 GM VIAL) IVPB SCH ×2 (14:03→15:05)
[2016-09-11] MEDS: MAGNESIUM OXIDE 400 MG TABLET (FP) GT SCH (22:54)
[2016-09-11] MEDS: INSULIN DETEMIR 100 UNITS/ML MDV SQ SCH (23:01)
[2016-09-12] MEDS: CEFTAZIDIME PENTAHYDRATE 1 GM in DEXTROSE 5%-WATER - 50 ML IVPB SCH ×3 (01:16→17:51)
[2016-09-12 05:41] LABS: MCH 27.5 pg (25.7-33.7); MCHC 31.8 g/dl (32.0-36.0); MEAN CELL VOLUME 86.5 fl (80-96); MEAN PLT VOLUME 7.6 fl (7.5-11.1); PLATELET COUNT 404 K/MM3 (134-434); RDW 15.5 % (11.6-15.6); WHITE BLOOD COUNT 10.9 K/mm3 (4.0-10.0)
[2016-09-12 06:02] LABS: ANION GAP 7 (8-16); CALCIUM 8.9 mg/dL (8.5-10.1); CO2 33 mmol/L (21-32); CREATININE 0.2 mg/dL (0.55-1.02); GLUCOSE,RANDOM 68 mg/dL (74-106)
[2016-09-12] MEDS: OFLOXACIN 0.3% OPHTHALMIC SOLUTION 5 ML BOTTLE OD SCH ×5 (06:42→21:45)
--- NOTE | 2016-09-12 08:20 | PN ---
Physical Exam: SUBJECTIVE: 66 year old female s/p cardiac arrest in PEA Patient is on vent that occasionally decreases tidal volume due to trach obstruction from granulation tissue. Mental status is mildly improved. OBJECTIVE: Vital Signs Period Temp Pulse Resp BP Sys/Major Pulse Ox Last 24 Hr 98.6 F-100.9 F 75-99 12-18 96-144/45-88 97-98 GENERAL: The patient is awake, alert, and in no acute distress. Is not oriented to time, place, person HEAD: Normal with no signs of trauma. EYES: PERRL, extraocular movements intact, sclera anicteric, conjunctiva clear. No ptosis. ENT: Ears normal, nares patent, patient is on a trach and breathing on a vent NECK: Trachea midline, full range of motion, supple. Trach is noted LUNGS: Breath sounds equal, clear to auscultation bilaterally. Patient breathing on vent (AC) HEART: Regular rate and rhythm, S1, S2 without murmur, rub or gallop. ABDOMEN: Soft, nontender, nondistended, normoactive bowel sounds, no guarding, no rebound, no hepatosplenomegaly, no masses. EXTREMITIES: Gangrenous tissue noted on bilateral upper and lower extremities distally on hands and feet NEUROLOGICAL: Cranial nerves unable to be examined due to mental status PSYCH: Normal mood, normal affect. SKIN: Gangrene on b/l upper and lower extremities distally CBC, BMP 09/12/16 05:15 09/12/16 05:15 Active Medications Generic Name Dose Route Start Last Admin Trade Name Freq PRN Reason Stop Dose Admin Acetaminophen 650 mg 09/04/16 08:48 09/11/16 22:49 Tylenol Oral Solution - PO 650 mg Q6H PRN Administration FEVER OR PAIN Chlorhexidine Gluconate 15 ml 08/13/16 22:00 09/11/16 22:49 Peridex - MM 15 ml BID [facility] Administration Dextrose 50 ml 08/13/16 19:11 D50w (Vial) - IVPUSH Q15M PRN BLOOD SUGAR < 60 Enoxaparin Sodium 40 mg 09/07/16 22:00 09/11/16 22:49 Lovenox - SQ 40 mg BID [facility] Administration Fentanyl 1 patch 09/11/16 13:30 09/11/16 14:02 Duragesic 25mcg Patch - TD 09/18/16 13:17 1 patch Q72H [facility] Administration Furosemide 20 mg 08/30/16 10:00 09/11/16 09:16 Lasix - GT 20 mg DAILY [facility] Administration Ceftazidime 1 gm/ Dextrose 50 mls @ 100 mls/hr 09/03/16 15:00 09/12/16 01:16 IVPB 100 mls/hr Q8H-IV [facility] Administration Protocol Insulin Aspart 1 vial 08/13/16 22:00 09/11/16 23:01 Novolog Vial Sliding Scale - SQ 2 units ACHS [facility] Administration Protocol Insulin Detemir 18 units 08/30/16 12:50 09/11/16 23:01 Levemir Vial SQ 18 units HS [facility] Administration Magnesium Oxide 400 mg 09/11/16 22:00 09/11/16 22:54 Mag-Ox - GT 400 mg BID [facility] Administration Miscellaneous 1 each 08/13/16 19:11 09/07/16 19:14 Duragesic Patch Waste TD 1 each PRN PRN Administration PAIN Miscellaneous 1 each 09/11/16 13:16 Duragesic Patch Waste TD PRN PRN PAIN Ofloxacin 1 drop 08/27/16 14:00 09/12/16 06:42 Ocuflox 0.3% Eye Drops - OD 1 drop Q4HWA [facility] Administration Prednisolone Acetate 1 drop 08/27/16 14:00 09/11/16 22:48 Pred Forte 1% - OD 1 drop BID [facility] Administration Ranitidine HCl 150 mg 09/04/16 10:00 09/11/16 22:49 Zantac Oral Solution - PO 150 mg BID [facility] Administration ASSESSMENT/PLAN: 66 year old female on vent s/p cardiac arrest in PEA. Pulmonary: patient breathing on vent/ac. -plan on Dr. Dubon inserting a larger trach to bypass the granulation tissue -monitor breathing -xray AM Cardiac: -monitor BP -monitor cardiac rhythm FEN: -patient's feeding tube is leaking, GI will wait until trach procedure before attempting to fix -replete K with KCl 40mEq BID -start Free H2O in G-tube Dispo: -patient is awaiting new breathing tube tomorrow, family is arriving at 12pm today (09/12) -continue all medications Problem List - Problems (1) Cardiac arrest due to respiratory disorder Code(s): J98.9 - RESPIRATORY DISORDER, UNSPECIFIED I46.8 - CARDIAC ARREST DUE TO OTHER UNDERLYING CONDITION Visit type - Emergency Visit Emergency Visit: No - New Patient This patient is new to me today: No - Critical Care Critical Care patient: Yes Total Critical Care Time (in minutes): 45 Critical Care Statement: The care of this patient involved high complexity decision making to prevent further life threatening deterioration of the patient 's condition and/or to evalute & treat vital organ system(s) failure or risk of failure.
[2016-09-12] MEDS: INSULIN SLIDING SCALE (NOVOLOG) 1 VIAL SQ SCH ×4 (08:26→22:27)
[2016-09-12] MEDS ORDERED: PT OWN MED DRAWER 7, Y5N ONE (09:40)
[2016-09-12] MEDS: RANITIDINE HCL 150 MG/10 ML UNIT-DOSE CUP PO SCH ×2 (09:45→21:44)
[2016-09-12] MEDS: MAGNESIUM OXIDE 400 MG TABLET (FP) GT SCH ×2 (09:45→21:43)
[2016-09-12] MEDS: ENOXAPARIN NA (PORCINE) 40 MG/0.4 ML DISP.SYRIN SQ SCH ×2 (09:45→21:43)
[2016-09-12] MEDS: FUROSEMIDE 20 MG TABLET (FP) GT SCH (09:45)
[2016-09-12] MEDS: prednisoLONE ACETATE 1% OPHTH SUSP 5 ML BOTTLE OD SCH ×2 (09:46→21:44)
[2016-09-12] MEDS: CHLORHEXIDINE GLUCONATE 0.12% 15ML CUP MM SCH ×2 (09:46→21:43)
[2016-09-12] MEDS: POTASSIUM CHLORIDE ORAL LIQUID 20 MEQ/15 ML GT SCH ×2 (12:19→21:44)
--- NOTE | 2016-09-12 14:13 | PN ---
Progress Note (short form) - Note Progress Note: Renal Follow up for ZAHIRA/Metabolic acidosis Pt seen and examined in the ICU remains on the vent no overnight events has loose stools Vital Signs Temperature 99.4 F 09/12/16 13:31 Pulse Rate 86 09/12/16 13:31 Respiratory Rate 14 09/12/16 13:31 Blood Pressure 103/63 09/12/16 13:31 O2 Sat by Pulse Oximetry (%) 98 09/12/16 10:47 Intake & Output 09/09/16 09/10/16 09/11/16 09/12/16 23:59 23:59 23:59 23:59 Intake Total 870 1010 1820 380 Output Total 940 1725 893 200 Balance -70 -715 927 180 Weight 135 lb 2.294 oz 129 lb 12.8 oz 130 lb 128 lb 4 oz Gen: on Vent, NAD CVS: RRR, No M/R Lungs: Dec BS b/l lung andino Ext: no edema in LE or at the sacrum CBC, BMP 09/12/16 05:15 09/12/16 05:15 Current Medications Acetaminophen (Tylenol Oral Solution -) 650 mg PO Q6H PRN PRN Reason: FEVER OR PAIN Last Admin: 09/11/16 22:49 Dose: 650 mg Chlorhexidine Gluconate (Peridex -) 15 ml MM BID [facility] Last Admin: 09/12/16 09:46 Dose: 15 ml Dextrose (D50w (Vial) -) 50 ml IVPUSH Q15M PRN PRN Reason: BLOOD SUGAR < 60 Enoxaparin Sodium (Lovenox -) 40 mg SQ BID [facility] Last Admin: 09/12/16 09:45 Dose: 40 mg Fentanyl (Duragesic 25mcg Patch -) 1 patch TD Q72H [facility] Stop: 09/18/16 13:17 Last Admin: 09/11/16 14:02 Dose: 1 patch Furosemide (Lasix -) 20 mg GT DAILY [facility] Last Admin: 09/12/16 09:45 Dose: 20 mg Ceftazidime 1 gm/ Dextrose 50 mls @ 100 mls/hr IVPB Q8H-IV [facility] PRN Reason: Protocol Last Admin: 09/12/16 09:44 Dose: 100 mls/hr Insulin Aspart (Novolog Vial Sliding Scale -) 1 vial SQ ACHS [facility] PRN Reason: Protocol Last Admin: 09/12/16 12:33 Dose: Not Given Insulin Detemir (Levemir Vial) 18 units SQ HS [facility] Last Admin: 09/11/16 23:01 Dose: 18 units Magnesium Oxide (Mag-Ox -) 400 mg GT BID [facility] Last Admin: 09/12/16 09:45 Dose: 400 mg Miscellaneous (Duragesic Patch Waste) 1 each TD PRN PRN PRN Reason: PAIN Last Admin: 09/07/16 19:14 Dose: 1 each Miscellaneous (Duragesic Patch Waste) 1 each TD PRN PRN PRN Reason: PAIN Ofloxacin (Ocuflox 0.3% Eye Drops -) 1 drop OD Q4HWA [facility] Last Admin: 09/12/16 09:47 Dose: 1 drop Potassium Chloride (Potassium Chloride Oral Liquid) 40 meq GT BID [facility] Last Admin: 09/12/16 12:19 Dose: 40 meq Prednisolone Acetate (Pred Forte 1% -) 1 drop OD BID [facility] Last Admin: 09/12/16 09:46 Dose: 1 drop Ranitidine HCl (Zantac Oral Solution -) 150 mg PO BID [facility] Last Admin: 09/12/16 09:45 Dose: 150 mg A/P 65 year old woman with PMhx of hypertension, hypercholesterolemia, diabetes mellitus who presented with Abd pain and found to have perforated Abd viscus s/ p emergent Sx now with Septic Shock, ZAHIRA and Metabolic Acidosis. #Sepsis/Perforated Abd Viscus/Abscess ICU monitoring Vent support Abx as per ID Surgical follow up #Hypomagnesemia/Hypokalemia supplament to keep K > 3.5 and Mg > 2 #Hypernatremia Increase free water as G tube feeds are titrated up #Edema/Pulmonary vascular congestion continue Lasix via G-tube Cyril Tubbs DO
--- NOTE | 2016-09-12 15:47 | PN ---
Progress Note, Physician History of Present Illness: patient stable off of pressors responds - Current Medication List Current Medications: Active Medications Acetaminophen (Tylenol Oral Solution -) 650 mg PO Q6H PRN PRN Reason: FEVER OR PAIN Last Admin: 09/11/16 22:49 Dose: 650 mg Chlorhexidine Gluconate (Peridex -) 15 ml MM BID [facility] Last Admin: 09/12/16 09:46 Dose: 15 ml Dextrose (D50w (Vial) -) 50 ml IVPUSH Q15M PRN PRN Reason: BLOOD SUGAR < 60 Enoxaparin Sodium (Lovenox -) 40 mg SQ BID [facility] Last Admin: 09/12/16 09:45 Dose: 40 mg Fentanyl (Duragesic 25mcg Patch -) 1 patch TD Q72H [facility] Stop: 09/18/16 13:17 Last Admin: 09/11/16 14:02 Dose: 1 patch Furosemide (Lasix -) 20 mg GT DAILY [facility] Last Admin: 09/12/16 09:45 Dose: 20 mg Ceftazidime 1 gm/ Dextrose 50 mls @ 100 mls/hr IVPB Q8H-IV [facility] PRN Reason: Protocol Last Admin: 09/12/16 09:44 Dose: 100 mls/hr Insulin Aspart (Novolog Vial Sliding Scale -) 1 vial SQ ACHS [facility] PRN Reason: Protocol Last Admin: 09/12/16 12:33 Dose: Not Given Insulin Detemir (Levemir Vial) 18 units SQ HS [facility] Last Admin: 09/11/16 23:01 Dose: 18 units Magnesium Oxide (Mag-Ox -) 400 mg GT BID [facility] Last Admin: 09/12/16 09:45 Dose: 400 mg Miscellaneous (Duragesic Patch Waste) 1 each TD PRN PRN PRN Reason: PAIN Last Admin: 09/07/16 19:14 Dose: 1 each Miscellaneous (Duragesic Patch Waste) 1 each TD PRN PRN PRN Reason: PAIN Ofloxacin (Ocuflox 0.3% Eye Drops -) 1 drop OD Q4HWA [facility] Last Admin: 09/12/16 14:53 Dose: 1 drop Potassium Chloride (Potassium Chloride Oral Liquid) 40 meq GT BID [facility] Last Admin: 09/12/16 12:19 Dose: 40 meq Prednisolone Acetate (Pred Forte 1% -) 1 drop OD BID [facility] Last Admin: 09/12/16 09:46 Dose: 1 drop Ranitidine HCl (Zantac Oral Solution -) 150 mg PO BID [facility] Last Admin: 09/12/16 09:45 Dose: 150 mg - Objective Vital Signs: Vital Signs Temperature 99.5 F 09/12/16 14:00 Pulse Rate 87 09/12/16 14:00 Respiratory Rate 14 09/12/16 14:05 Blood Pressure 129/81 09/12/16 14:00 O2 Sat by Pulse Oximetry (%) 98 09/12/16 10:47 Constitutional: Yes: No Distress, Calm Cardiovascular: Yes: Regular Rate and Rhythm Respiratory: Yes: Mechanically Ventilated, Other (trach) Gastrointestinal: Yes: Normal Bowel Sounds, Soft Musculoskeletal: Yes: Other Extremities: Yes: Other Neurological: Yes: Alert, Other Psychiatric: Yes: Alert Labs: CBC, BMP 09/12/16 05:15 09/12/16 05:15 INR, PTT INR 1.14 (0.82-1.09) 09/07/16 22:45 Fibrinogen > 700.0 mg/dL (238-498) H 07/31/16 05:40 Assessment/Plan Problem List - Problems (1) Abdominal pain Code(s): R10.9 - UNSPECIFIED ABDOMINAL PAIN Qualifiers: Qualified Code(s): R10.33 - Periumbilical pain (2) Perforated abdominal viscus Code(s): [id number] - (3) Perforated viscus Code(s): R19.8 - OTH SYMPTOMS AND SIGNS INVOLVING THE DGSTV SYS AND ABDOMEN (4) Hypertension Code(s): I10 - ESSENTIAL (PRIMARY) HYPERTENSION Qualifiers: Qualified Code(s): I10 - Essential (primary) hypertension lactic acidosis fevers generalized swelling gangrene of the tip of the fingers noted pseudomonas pneumonia patient having loose stools plan conitnue abx continue close monitoring rest as per icu mgmt hydration nutrition cc time 40 min
--- NOTE | 2016-09-12 15:50 | PN ---
Progress Note, Physician History of Present Illness: contineus to maintain pressure off of pressors no specific change loose stools feeding tube and getting tube feeds responds - Current Medication List Current Medications: Active Medications Acetaminophen (Tylenol Oral Solution -) 650 mg PO Q6H PRN PRN Reason: FEVER OR PAIN Last Admin: 09/11/16 22:49 Dose: 650 mg Chlorhexidine Gluconate (Peridex -) 15 ml MM BID [facility] Last Admin: 09/12/16 09:46 Dose: 15 ml Dextrose (D50w (Vial) -) 50 ml IVPUSH Q15M PRN PRN Reason: BLOOD SUGAR < 60 Enoxaparin Sodium (Lovenox -) 40 mg SQ BID [facility] Last Admin: 09/12/16 09:45 Dose: 40 mg Fentanyl (Duragesic 25mcg Patch -) 1 patch TD Q72H [facility] Stop: 09/18/16 13:17 Last Admin: 09/11/16 14:02 Dose: 1 patch Furosemide (Lasix -) 20 mg GT DAILY [facility] Last Admin: 09/12/16 09:45 Dose: 20 mg Ceftazidime 1 gm/ Dextrose 50 mls @ 100 mls/hr IVPB Q8H-IV [facility] PRN Reason: Protocol Last Admin: 09/12/16 09:44 Dose: 100 mls/hr Insulin Aspart (Novolog Vial Sliding Scale -) 1 vial SQ ACHS [facility] PRN Reason: Protocol Last Admin: 09/12/16 12:33 Dose: Not Given Insulin Detemir (Levemir Vial) 18 units SQ HS [facility] Last Admin: 09/11/16 23:01 Dose: 18 units Magnesium Oxide (Mag-Ox -) 400 mg GT BID [facility] Last Admin: 09/12/16 09:45 Dose: 400 mg Miscellaneous (Duragesic Patch Waste) 1 each TD PRN PRN PRN Reason: PAIN Last Admin: 09/07/16 19:14 Dose: 1 each Miscellaneous (Duragesic Patch Waste) 1 each TD PRN PRN PRN Reason: PAIN Ofloxacin (Ocuflox 0.3% Eye Drops -) 1 drop OD Q4HWA [facility] Last Admin: 09/12/16 14:53 Dose: 1 drop Potassium Chloride (Potassium Chloride Oral Liquid) 40 meq GT BID [facility] Last Admin: 09/12/16 12:19 Dose: 40 meq Prednisolone Acetate (Pred Forte 1% -) 1 drop OD BID [facility] Last Admin: 09/12/16 09:46 Dose: 1 drop Ranitidine HCl (Zantac Oral Solution -) 150 mg PO BID [facility] Last Admin: 09/12/16 09:45 Dose: 150 mg - Objective Vital Signs: Vital Signs Temperature 99.5 F 09/12/16 14:00 Pulse Rate 87 09/12/16 14:00 Respiratory Rate 14 09/12/16 14:05 Blood Pressure 129/81 09/12/16 14:00 O2 Sat by Pulse Oximetry (%) 98 09/12/16 10:47 Constitutional: Yes: No Distress, Calm Cardiovascular: Yes: Regular Rate and Rhythm Respiratory: Yes: Mechanically Ventilated, Other (trach) Gastrointestinal: Yes: Normal Bowel Sounds, Soft, Other (feeding tube in place) Extremities: Yes: Other (gangrene) Neurological: Yes: Alert, Other Labs: CBC, BMP 09/12/16 05:15 09/12/16 05:15 INR, PTT INR 1.14 (0.82-1.09) 09/07/16 22:45 Fibrinogen > 700.0 mg/dL (238-498) H 07/31/16 05:40 Assessment/Plan Problem List - Problems (1) Abdominal pain Code(s): R10.9 - UNSPECIFIED ABDOMINAL PAIN Qualifiers: Qualified Code(s): R10.33 - Periumbilical pain (2) Perforated abdominal viscus Code(s): [id number] - (3) Perforated viscus Code(s): R19.8 - OTH SYMPTOMS AND SIGNS INVOLVING THE DGSTV SYS AND ABDOMEN (4) Hypertension Code(s): I10 - ESSENTIAL (PRIMARY) HYPERTENSION Qualifiers: Qualified Code(s): I10 - Essential (primary) hypertension lactic acidosis fevers generalized swelling gangrene of the tip of the fingers noted pseudomonas pneumonia patient having loose stools plan conitnue abx continue close monitoring rest as per icu mgmt hydration nutrition i think we might consider sending cdiff cc time 40 min
--- NOTE | 2016-09-12 15:52 | PN ---
Progress Note, Physician History of Present Illness: stable no new issues plan is for changing the trach tube if family decided - Current Medication List Current Medications: Active Medications Acetaminophen (Tylenol Oral Solution -) 650 mg PO Q6H PRN PRN Reason: FEVER OR PAIN Last Admin: 09/11/16 22:49 Dose: 650 mg Chlorhexidine Gluconate (Peridex -) 15 ml MM BID [facility] Last Admin: 09/12/16 09:46 Dose: 15 ml Dextrose (D50w (Vial) -) 50 ml IVPUSH Q15M PRN PRN Reason: BLOOD SUGAR < 60 Enoxaparin Sodium (Lovenox -) 40 mg SQ BID [facility] Last Admin: 09/12/16 09:45 Dose: 40 mg Fentanyl (Duragesic 25mcg Patch -) 1 patch TD Q72H [facility] Stop: 09/18/16 13:17 Last Admin: 09/11/16 14:02 Dose: 1 patch Furosemide (Lasix -) 20 mg GT DAILY [facility] Last Admin: 09/12/16 09:45 Dose: 20 mg Ceftazidime 1 gm/ Dextrose 50 mls @ 100 mls/hr IVPB Q8H-IV [facility] PRN Reason: Protocol Last Admin: 09/12/16 09:44 Dose: 100 mls/hr Insulin Aspart (Novolog Vial Sliding Scale -) 1 vial SQ ACHS [facility] PRN Reason: Protocol Last Admin: 09/12/16 12:33 Dose: Not Given Insulin Detemir (Levemir Vial) 18 units SQ HS [facility] Last Admin: 09/11/16 23:01 Dose: 18 units Magnesium Oxide (Mag-Ox -) 400 mg GT BID [facility] Last Admin: 09/12/16 09:45 Dose: 400 mg Miscellaneous (Duragesic Patch Waste) 1 each TD PRN PRN PRN Reason: PAIN Last Admin: 09/07/16 19:14 Dose: 1 each Miscellaneous (Duragesic Patch Waste) 1 each TD PRN PRN PRN Reason: PAIN Ofloxacin (Ocuflox 0.3% Eye Drops -) 1 drop OD Q4HWA [facility] Last Admin: 09/12/16 14:53 Dose: 1 drop Potassium Chloride (Potassium Chloride Oral Liquid) 40 meq GT BID [facility] Last Admin: 09/12/16 12:19 Dose: 40 meq Prednisolone Acetate (Pred Forte 1% -) 1 drop OD BID [facility] Last Admin: 09/12/16 09:46 Dose: 1 drop Ranitidine HCl (Zantac Oral Solution -) 150 mg PO BID [facility] Last Admin: 09/12/16 09:45 Dose: 150 mg - Objective Vital Signs: Vital Signs Temperature 99.5 F 09/12/16 14:00 Pulse Rate 87 09/12/16 14:00 Respiratory Rate 14 09/12/16 14:05 Blood Pressure 129/81 09/12/16 14:00 O2 Sat by Pulse Oximetry (%) 98 09/12/16 10:47 Constitutional: Yes: No Distress, Calm Cardiovascular: Yes: Regular Rate and Rhythm Respiratory: Yes: Mechanically Ventilated, Other (trach) Gastrointestinal: Yes: Normal Bowel Sounds, Soft Extremities: Yes: Other (dry gangrene) Neurological: Yes: Alert, Other Labs: CBC, BMP 09/12/16 05:15 09/12/16 05:15 INR, PTT INR 1.14 (0.82-1.09) 09/07/16 22:45 Fibrinogen > 700.0 mg/dL (238-498) H 07/31/16 05:40 Assessment/Plan Problem List - Problems (1) Abdominal pain Code(s): R10.9 - UNSPECIFIED ABDOMINAL PAIN Qualifiers: Qualified Code(s): R10.33 - Periumbilical pain (2) Perforated abdominal viscus Code(s): [id number] - (3) Perforated viscus Code(s): R19.8 - OTH SYMPTOMS AND SIGNS INVOLVING THE DGSTV SYS AND ABDOMEN (4) Hypertension Code(s): I10 - ESSENTIAL (PRIMARY) HYPERTENSION Qualifiers: Qualified Code(s): I10 - Essential (primary) hypertension lactic acidosis fevers generalized swelling gangrene of the tip of the fingers noted pseudomonas pneumonia patient having loose stools plan we willc ontinue monitoring await for family plan for changing the tube continue abx for now patients temp fluctuates will decide after family makes decision on further plan rest as per icu cdiff cc time 40 min
[2016-09-12] MEDS: ACETAMINOPHEN 650 MG/20.3 ML ORAL SOLUTION (CUPS) PO PRN (17:51)
--- NOTE | 2016-09-12 18:48 | PN ---
Progress Note, Physician Chief Complaint: Remained at her base line , , low grade fever , opens eye to verbal command, on Vent Saturating well. FS are better controlled, no extremities movement s/p PEA cardiac arrest reviewed now on Vent. remained afebrile. History of Present Illness: 65-year-old F H/O hypertension, hypercholesterolemia, T2DM, ETOH abuse, was presented to ED with abd pain and weight loss underwent exploratory laprotomy for perforated duodenal ulcer on 07/21/16 developed hypotention and sepsis intubate now on trach, colostomy and TPN.on Vent and IV abxfor [facility]., abdominal wound still pus discharge with. FS are better controlled underwent G Tube placement tolerating feeding. Developed Cardiac arrest and sepsis with PEA resuscitated. - Current Medication List Current Medications: Active Medications Acetaminophen (Tylenol Oral Solution -) 650 mg PO Q6H PRN PRN Reason: FEVER OR PAIN Last Admin: 09/12/16 17:51 Dose: 650 mg Chlorhexidine Gluconate (Peridex -) 15 ml MM BID [facility] Last Admin: 09/12/16 09:46 Dose: 15 ml Dextrose (D50w (Vial) -) 50 ml IVPUSH Q15M PRN PRN Reason: BLOOD SUGAR < 60 Enoxaparin Sodium (Lovenox -) 40 mg SQ BID [facility] Last Admin: 09/12/16 09:45 Dose: 40 mg Fentanyl (Duragesic 25mcg Patch -) 1 patch TD Q72H [facility] Stop: 09/18/16 13:17 Last Admin: 09/11/16 14:02 Dose: 1 patch Furosemide (Lasix -) 20 mg GT DAILY [facility] Last Admin: 09/12/16 09:45 Dose: 20 mg Ceftazidime 1 gm/ Dextrose 50 mls @ 100 mls/hr IVPB Q8H-IV [facility] PRN Reason: Protocol Last Admin: 09/12/16 17:51 Dose: 100 mls/hr Insulin Aspart (Novolog Vial Sliding Scale -) 1 vial SQ ACHS [facility] PRN Reason: Protocol Last Admin: 09/12/16 17:58 Dose: Not Given Insulin Detemir (Levemir Vial) 18 units SQ HS [facility] Last Admin: 09/11/16 23:01 Dose: 18 units Magnesium Oxide (Mag-Ox -) 400 mg GT BID [facility] Last Admin: 09/12/16 09:45 Dose: 400 mg Miscellaneous (Duragesic Patch Waste) 1 each TD PRN PRN PRN Reason: PAIN Last Admin: 09/07/16 19:14 Dose: 1 each Miscellaneous (Duragesic Patch Waste) 1 each TD PRN PRN PRN Reason: PAIN Ofloxacin (Ocuflox 0.3% Eye Drops -) 1 drop OD Q4HWA [facility] Last Admin: 09/12/16 17:52 Dose: 1 drop Potassium Chloride (Potassium Chloride Oral Liquid) 40 meq GT BID [facility] Last Admin: 09/12/16 12:19 Dose: 40 meq Prednisolone Acetate (Pred Forte 1% -) 1 drop OD BID [facility] Last Admin: 09/12/16 09:46 Dose: 1 drop Ranitidine HCl (Zantac Oral Solution -) 150 mg PO BID [facility] Last Admin: 09/12/16 09:45 Dose: 150 mg - Objective Vital Signs: Vital Signs Temperature 100.2 F H 09/12/16 18:00 Pulse Rate 83 09/12/16 18:00 Respiratory Rate 14 09/12/16 18:36 Blood Pressure 102/50 09/12/16 18:00 O2 Sat by Pulse Oximetry (%) 98 09/12/16 10:47 P Exam; Patient remained altered minimally responsive, on Vent HEENT: Trach at the place on Vent , need intermittent Vent support, mm most, anemia NECK; IJJ at place, no JVD CHEST: Good AE minimal crepts ABD; Colostomy bag at place, discahrge from abd fistula, discharge +, BS + , EXT; extensive edema, skin peeling and gangrene of distal extremities [employer]; 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 Derm; Extensive skin peeling and gangrene of fingers and toes, p Constitutional: Yes: No Distress Neck: Yes: Other (trach at place) Cardiovascular: Yes: Regular Rate and Rhythm, S1, S2. No: Gallop, Murmur Respiratory: Yes: CTA Bilaterally Gastrointestinal: Yes: Normal Bowel Sounds, Other (S/P PEG and surgical wound) Labs: CBC, BMP 09/12/16 05:15 09/12/16 05:15 INR, PTT INR 1.14 (0.82-1.09) 09/07/16 22:45 Fibrinogen > 700.0 mg/dL (238-498) H 07/31/16 05:40 Problem List - Problems (1) Perforated abdominal viscus Assessment/Plan: Patient was presented with Rt UQ pain and with free air, Duodenal ulcer perforation s/p surgery. now fistula formation draining exudates.fistula still has discharge evaluate by surgery. and GI consult, patient has colostomy bag at place, abdominal wound discharging on IV abx.. Code(s): [id number] - (2) Acute metabolic encephalopathy Assessment/Plan: Secondary to hypoperfusion due to septic shock, at present no significant improvement , most likely hypoxic encephalopathy. Code(s): G93.41 - METABOLIC ENCEPHALOPATHY (3) Ischemia of extremity Assessment/Plan: Ischemia off all extremities due to prolonged vasopressor use, patient needed pressure to maintain BP, now off pressors wound care healing slowly. Code(s): I99.8 - OTHER DISORDER OF CIRCULATORY SYSTEM (4) Sepsis Assessment/Plan: Due to perforated gastric now off pressors, on I V fluconazole and Zosyn F/U cultures.Prognosis is guarded. TWBC normal. Code(s): A41.9 - SEPSIS, UNSPECIFIED ORGANISM (5) Severe malnutrition Assessment/Plan: S/P PG tolerating feeding remove NG tube, Nutrition consult.. Code(s): E43 - UNSPECIFIED SEVERE PROTEIN-CALORIE MALNUTRITION (6) Diabetes mellitus Assessment/Plan: Better controlled add basal insulin Levimir 18 units FS are better controlled. Code(s): E11.9 - TYPE 2 DIABETES MELLITUS WITHOUT COMPLICATIONS Qualifiers: Diabetes mellitus type: type 2 (7) Cardiac arrest due to respiratory disorder Assessment/Plan: S/P resuuciation Code(s): J98.9 - RESPIRATORY DISORDER, UNSPECIFIED I46.8 - CARDIAC ARREST DUE TO OTHER UNDERLYING CONDITION
[2016-09-12] MEDS: INSULIN DETEMIR 100 UNITS/ML MDV SQ SCH (22:27)
[2016-09-13] MEDS: CEFTAZIDIME PENTAHYDRATE 1 GM in DEXTROSE 5%-WATER - 50 ML IVPB SCH ×3 (01:06→17:28)
[2016-09-13] MEDS: ACETAMINOPHEN 650 MG/20.3 ML ORAL SOLUTION (CUPS) PO PRN ×3 (01:07→21:59)
[2016-09-13] MEDS: OFLOXACIN 0.3% OPHTHALMIC SOLUTION 5 ML BOTTLE OD SCH ×5 (06:00→21:59)
[2016-09-13] MEDS: INSULIN SLIDING SCALE (NOVOLOG) 1 VIAL SQ SCH ×4 (07:00→23:09)
[2016-09-13] MEDS ORDERED: PT OWN MED DRAWER 7, Y5N ONE ×3 (08:24→20:19)
--- NOTE | 2016-09-13 09:31 | PN ---
Progress Note (short form) - Note Progress Note: PULMONARY/CCM Pt seen and examined in the ICU. Vented on volume assist control with 70% FiO2. Remains poorly responsive but grimacing in pain. Last Vital Signs Temp Pulse Resp BP Pulse Ox 100.5 F H 114 H 17 117/53 96 09/13/16 06:00 09/13/16 08:00 09/13/16 08:00 09/13/16 08:00 09/12/16 22:00 Intake & Output 09/10/16 09/11/16 09/12/16 09/13/16 23:59 23:59 23:59 23:59 Intake Total 1010 1820 1400 620 Output Total 1725 893 900 150 Balance -715 927 500 470 Weight 129 lb 12.8 oz 130 lb 128 lb 4 oz 126 lb 3.2 oz Gen: vented, poorly responsive, uncomfortable Heart: tachycardic, regular Lung: bilateral rhonchi Abd: soft, nontender, +fistula drainage Ext: multiple ulcers, dry gangrene of bilateral feet, fingers CBC, BMP 09/12/16 05:15 09/12/16 05:15 Active Medications Acetaminophen (Tylenol Oral Solution -) 650 mg PO Q6H PRN PRN Reason: FEVER OR PAIN Last Admin: 09/13/16 08:00 Dose: 650 mg Chlorhexidine Gluconate (Peridex -) 15 ml MM BID [facility] Last Admin: 09/12/16 21:43 Dose: 15 ml Dextrose (D50w (Vial) -) 50 ml IVPUSH Q15M PRN PRN Reason: BLOOD SUGAR < 60 Enoxaparin Sodium (Lovenox -) 40 mg SQ BID [facility] Last Admin: 09/12/16 21:43 Dose: 40 mg Fentanyl (Duragesic 25mcg Patch -) 1 patch TD Q72H [facility] Stop: 09/18/16 13:17 Last Admin: 09/11/16 14:02 Dose: 1 patch Furosemide (Lasix -) 20 mg GT DAILY [facility] Last Admin: 09/12/16 09:45 Dose: 20 mg Ceftazidime 1 gm/ Dextrose 50 mls @ 100 mls/hr IVPB Q8H-IV [facility] PRN Reason: Protocol Last Admin: 09/13/16 01:06 Dose: 100 mls/hr Insulin Aspart (Novolog Vial Sliding Scale -) 1 vial SQ ACHS [facility] PRN Reason: Protocol Last Admin: 09/13/16 07:00 Dose: 2 units Insulin Detemir (Levemir Vial) 18 units SQ HS [facility] Last Admin: 09/12/16 22:27 Dose: 18 units Magnesium Oxide (Mag-Ox -) 400 mg GT BID [facility] Last Admin: 09/12/16 21:43 Dose: 400 mg Miscellaneous (Duragesic Patch Waste) 1 each TD PRN PRN PRN Reason: PAIN Last Admin: 09/07/16 19:14 Dose: 1 each Miscellaneous (Duragesic Patch Waste) 1 each TD PRN PRN PRN Reason: PAIN Ofloxacin (Ocuflox 0.3% Eye Drops -) 1 drop OD Q4HWA [facility] Last Admin: 09/13/16 06:00 Dose: 1 drop Potassium Chloride (Potassium Chloride Oral Liquid) 40 meq GT BID [facility] Last Admin: 09/12/16 21:44 Dose: 40 meq Prednisolone Acetate (Pred Forte 1% -) 1 drop OD BID [facility] Last Admin: 09/12/16 21:44 Dose: 1 drop Ranitidine HCl (Zantac Oral Solution -) 150 mg PO BID [facility] Last Admin: 09/12/16 21:44 Dose: 150 mg A/P Perforated Duodenal Ulcer Peritonitis s/p ex-lap/omental patch repair 07/16 Enterocutaneous Fistula Acute Respiratory Failure s/p Tracheostomy s/p Septic Shock DM DVT Gangrene s/p PEA Cardiac Arrest - antibiotics per ID - taper Fio2 to keep Spo2 >90% - continue anticoagulation - start morphine for comfort - enteral feeds as tolerated - volume assist control, poor candidate for weaning - DVT/GI prophylaxis - prognosis is poor, continue discussions regarding advanced directives and goals of care - recommend palliative due to failure to wean, anticipated amputations, poor quality of life critical care time spent in reviewing chart, evaluating patient and formulating plan 35 min
[2016-09-13] MEDS ORDERED: morphine CARPU-JECT 4 MG/1 ML DISP.SYRIN IVPUSH PRN (09:33)
[2016-09-13] MEDS ORDERED: morphine CARPU-JECT 4 MG/1 ML DISP.SYRIN ONE (09:34)
[2016-09-13] MEDS: MAGNESIUM OXIDE 400 MG TABLET (FP) GT SCH ×2 (09:36→21:41)
[2016-09-13] MEDS: FUROSEMIDE 20 MG TABLET (FP) GT SCH (09:36)
[2016-09-13] MEDS: RANITIDINE HCL 150 MG/10 ML UNIT-DOSE CUP PO SCH ×2 (09:36→21:57)
[2016-09-13] MEDS: ENOXAPARIN NA (PORCINE) 40 MG/0.4 ML DISP.SYRIN SQ SCH ×2 (09:36→21:40)
[2016-09-13] MEDS: POTASSIUM CHLORIDE ORAL LIQUID 20 MEQ/15 ML GT SCH ×2 (09:37→21:56)
[2016-09-13] MEDS: CHLORHEXIDINE GLUCONATE 0.12% 15ML CUP MM SCH ×2 (09:38→21:41)
[2016-09-13] MEDS: prednisoLONE ACETATE 1% OPHTH SUSP 5 ML BOTTLE OD SCH ×2 (10:19→21:58)
--- NOTE | 2016-09-13 11:30 | PN ---
Progress Note, Physician Chief Complaint: Remained at her base line , , low grade fever , opens eye to verbal command, on Vent Saturating well. FS are better controlled, no extremities movement s/p PEA cardiac arrest reviewed now on Vent. remained afebrile. History of Present Illness: 65-year-old F H/O hypertension, hypercholesterolemia, T2DM, ETOH abuse, was presented to ED with abd pain and weight loss underwent exploratory laprotomy for perforated duodenal ulcer on 07/21/16 developed hypotention and sepsis intubate now on trach, colostomy and TPN.on Vent and IV abxfor [facility]., abdominal wound still pus discharge with. FS are better controlled underwent G Tube placement tolerating feeding.. - Current Medication List Current Medications: Active Medications Acetaminophen (Tylenol Oral Solution -) 650 mg PO Q6H PRN PRN Reason: FEVER OR PAIN Last Admin: 09/13/16 08:00 Dose: 650 mg Chlorhexidine Gluconate (Peridex -) 15 ml MM BID [facility] Last Admin: 09/13/16 09:38 Dose: 15 ml Dextrose (D50w (Vial) -) 50 ml IVPUSH Q15M PRN PRN Reason: BLOOD SUGAR < 60 Enoxaparin Sodium (Lovenox -) 40 mg SQ BID [facility] Last Admin: 09/13/16 09:36 Dose: 40 mg Fentanyl (Duragesic 25mcg Patch -) 1 patch TD Q72H [facility] Stop: 09/18/16 13:17 Last Admin: 09/11/16 14:02 Dose: 1 patch Furosemide (Lasix -) 20 mg GT DAILY [facility] Last Admin: 09/13/16 09:36 Dose: 20 mg Ceftazidime 1 gm/ Dextrose 50 mls @ 100 mls/hr IVPB Q8H-IV [facility] PRN Reason: Protocol Last Admin: 09/13/16 10:17 Dose: 100 mls/hr Insulin Aspart (Novolog Vial Sliding Scale -) 1 vial SQ ACHS [facility] PRN Reason: Protocol Last Admin: 09/13/16 07:00 Dose: 2 units Insulin Detemir (Levemir Vial) 18 units SQ HS [facility] Last Admin: 09/12/16 22:27 Dose: 18 units Magnesium Oxide (Mag-Ox -) 400 mg GT BID [facility] Last Admin: 09/13/16 09:36 Dose: 400 mg Miscellaneous (Duragesic Patch Waste) 1 each TD PRN PRN PRN Reason: PAIN Last Admin: 09/07/16 19:14 Dose: 1 each Miscellaneous (Duragesic Patch Waste) 1 each TD PRN PRN PRN Reason: PAIN Morphine Sulfate (Morphine Injection -) 4 mg IVPUSH Q4H PRN PRN Reason: PAIN Last Admin: 09/13/16 09:38 Dose: 4 mg Ofloxacin (Ocuflox 0.3% Eye Drops -) 1 drop OD Q4HWA [facility] Last Admin: 09/13/16 10:19 Dose: 1 drop Potassium Chloride (Potassium Chloride Oral Liquid) 40 meq GT BID [facility] Last Admin: 09/13/16 09:37 Dose: 40 meq Prednisolone Acetate (Pred Forte 1% -) 1 drop OD BID [facility] Last Admin: 09/13/16 10:19 Dose: 1 drop Ranitidine HCl (Zantac Oral Solution -) 150 mg PO BID [facility] Last Admin: 09/13/16 09:36 Dose: 150 mg - Objective Vital Signs: Vital Signs Temperature 100.5 F H 09/13/16 06:00 Pulse Rate 101 H 09/13/16 10:40 Respiratory Rate 15 09/13/16 10:24 Blood Pressure 117/53 09/13/16 08:00 O2 Sat by Pulse Oximetry (%) 95 09/13/16 10:40 P Exam; Patient remained altered minimally responsive, on Vent HEENT: Trach at the place on Vent , need intermittent Vent support, mm most, anemia NECK; IJJ at place, no JVD CHEST: Good AE minimal crepts ABD; Colostomy bag at place, discahrge from abd fistula, discharge +, BS + , EXT; extensive edema, skin peeling and gangrene of distal extremities 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 Derm; Extensive skin peeling and gangrene of fingers and toes, p Labs: CBC, BMP 09/12/16 05:15 09/12/16 05:15 INR, PTT INR 1.14 (0.82-1.09) 09/07/16 22:45 Fibrinogen > 700.0 mg/dL (238-498) H 07/31/16 05:40 Problem List - Problems (1) Perforated abdominal viscus Assessment/Plan: Patient was presented with Rt UQ pain and with free air, Duodenal ulcer perforation s/p surgery. now fistula formation draining exudates.fistula still has discharge evaluate by surgery. and GI consult, patient has colostomy bag at place, abdominal wound discharging on IV abx.. Code(s): [id number] - (2) Acute metabolic encephalopathy Assessment/Plan: Secondary to hypoperfusion due to septic shock, at present no significant improvement , most likely hypoxic encephalopathy. Code(s): G93.41 - METABOLIC ENCEPHALOPATHY (3) Ischemia of extremity Assessment/Plan: Ischemia off all extremities due to prolonged vasopressor use, patient needed pressure to maintain BP, now off pressors wound care healing slowly. Code(s): I99.8 - OTHER DISORDER OF CIRCULATORY SYSTEM (4) Sepsis Assessment/Plan: Due to perforated gastric now off pressors, on I V fluconazole and Zosyn F/U cultures.Prognosis is guarded. TWBC normal. Code(s): A41.9 - SEPSIS, UNSPECIFIED ORGANISM (5) Severe malnutrition Assessment/Plan: S/P PG tolerating feeding remove NG tube, Nutrition consult.. Code(s): E43 - UNSPECIFIED SEVERE PROTEIN-CALORIE MALNUTRITION (6) Hepatic abscess Assessment/Plan: SUB capsular hepatic abscess I and D drain at place. Code(s): K75.0 - ABSCESS OF LIVER (7) Diabetes mellitus Assessment/Plan: Better controlled add basal insulin Levimir 18 units FS are better controlled. Code(s): E11.9 - TYPE 2 DIABETES MELLITUS WITHOUT COMPLICATIONS Qualifiers: Diabetes mellitus type: type 2 (8) Cardiac arrest due to respiratory disorder Assessment/Plan: S/P resuuciation Code(s): J98.9 - RESPIRATORY DISORDER, UNSPECIFIED I46.8 - CARDIAC ARREST DUE TO OTHER UNDERLYING CONDITION
--- NOTE | 2016-09-13 13:02 | PN ---
Progress Note, Physician History of Present Illness: low grade fevers events noted patient restles was given some morphine now calmer - Current Medication List Current Medications: Active Medications Acetaminophen (Tylenol Oral Solution -) 650 mg PO Q6H PRN PRN Reason: FEVER OR PAIN Last Admin: 09/13/16 08:00 Dose: 650 mg Chlorhexidine Gluconate (Peridex -) 15 ml MM BID [facility] Last Admin: 09/13/16 09:38 Dose: 15 ml Dextrose (D50w (Vial) -) 50 ml IVPUSH Q15M PRN PRN Reason: BLOOD SUGAR < 60 Enoxaparin Sodium (Lovenox -) 40 mg SQ BID [facility] Last Admin: 09/13/16 09:36 Dose: 40 mg Fentanyl (Duragesic 25mcg Patch -) 1 patch TD Q72H [facility] Stop: 09/18/16 13:17 Last Admin: 09/11/16 14:02 Dose: 1 patch Furosemide (Lasix -) 20 mg GT DAILY [facility] Last Admin: 09/13/16 09:36 Dose: 20 mg Ceftazidime 1 gm/ Dextrose 50 mls @ 100 mls/hr IVPB Q8H-IV [facility] PRN Reason: Protocol Last Admin: 09/13/16 10:17 Dose: 100 mls/hr Insulin Aspart (Novolog Vial Sliding Scale -) 1 vial SQ ACHS [facility] PRN Reason: Protocol Last Admin: 09/13/16 12:02 Dose: 2 units Insulin Detemir (Levemir Vial) 18 units SQ HS [facility] Last Admin: 09/12/16 22:27 Dose: 18 units Magnesium Oxide (Mag-Ox -) 400 mg GT BID [facility] Last Admin: 09/13/16 09:36 Dose: 400 mg Miscellaneous (Duragesic Patch Waste) 1 each TD PRN PRN PRN Reason: PAIN Last Admin: 09/07/16 19:14 Dose: 1 each Miscellaneous (Duragesic Patch Waste) 1 each TD PRN PRN PRN Reason: PAIN Morphine Sulfate (Morphine Injection -) 2 mg IVPUSH Q4H PRN PRN Reason: PAIN Ofloxacin (Ocuflox 0.3% Eye Drops -) 1 drop OD Q4HWA [facility] Last Admin: 09/13/16 10:19 Dose: 1 drop Potassium Chloride (Potassium Chloride Oral Liquid) 40 meq GT BID [facility] Last Admin: 09/13/16 09:37 Dose: 40 meq Prednisolone Acetate (Pred Forte 1% -) 1 drop OD BID [facility] Last Admin: 09/13/16 10:19 Dose: 1 drop Ranitidine HCl (Zantac Oral Solution -) 150 mg PO BID [facility] Last Admin: 09/13/16 09:36 Dose: 150 mg - Objective Vital Signs: Vital Signs Temperature 97.5 F L 09/13/16 12:00 Pulse Rate 83 09/13/16 12:00 Respiratory Rate 16 09/13/16 12:00 Blood Pressure 93/47 09/13/16 12:00 O2 Sat by Pulse Oximetry (%) 95 09/13/16 10:40 Constitutional: Yes: Calm, Other Neck: Yes: Supple, Other Cardiovascular: Yes: S1, S2 Respiratory: Yes: Mechanically Ventilated, Other Gastrointestinal: Yes: Normal Bowel Sounds, Soft, Other (peg in place) Musculoskeletal: Yes: Other Extremities: Yes: Other (gangrene) Integumentary: Yes: Other Wound/Incision: Yes: Other Neurological: Yes: Other (responds to verbal) Labs: CBC, BMP 09/12/16 05:15 09/12/16 05:15 INR, PTT INR 1.14 (0.82-1.09) 09/07/16 22:45 Fibrinogen > 700.0 mg/dL (238-498) H 07/31/16 05:40 Assessment/Plan Problem List - Problems (1) Abdominal pain Code(s): R10.9 - UNSPECIFIED ABDOMINAL PAIN Qualifiers: Qualified Code(s): R10.33 - Periumbilical pain (2) Perforated abdominal viscus Code(s): [id number] - (3) Perforated viscus Code(s): R19.8 - OTH SYMPTOMS AND SIGNS INVOLVING THE DGSTV SYS AND ABDOMEN (4) Hypertension Code(s): I10 - ESSENTIAL (PRIMARY) HYPERTENSION Qualifiers: Qualified Code(s): I10 - Essential (primary) hypertension lactic acidosis fevers generalized swelling gangrene of the tip of the fingers noted pseudomonas pneumonia patient having loose stools plan we will continue monitoring final plan awaited about the tube continue abx for now patients temp fluctuates will decide after family makes decision on further plan rest as per icu cc time 40 min
[2016-09-13] MEDS: morphine CARPU-JECT 2 MG/1 ML DISP.SYRIN IVPUSH PRN (21:57)
[2016-09-13] MEDS: INSULIN DETEMIR 100 UNITS/ML MDV SQ SCH (23:09)
[2016-09-14] MEDS: CEFTAZIDIME PENTAHYDRATE 1 GM in DEXTROSE 5%-WATER - 50 ML IVPB SCH ×3 (01:05→17:52)
[2016-09-14 05:47] LABS: BASOPHIL 0.5 % (0-2.0); EOSINOPHIL 4.3 % (0-4.5); MCH 28.1 pg (25.7-33.7); MCHC 31.9 g/dl (32.0-36.0); MEAN CELL VOLUME 87.9 fl (80-96); NEUTROPHILS 53.1 % (42.8-82.8); PLATELET COUNT 374 K/MM3 (134-434); RDW 16.1 % (11.6-15.6); WHITE BLOOD COUNT 8.8 K/mm3 (4.0-10.0)
[2016-09-14] MEDS: OFLOXACIN 0.3% OPHTHALMIC SOLUTION 5 ML BOTTLE OD SCH ×5 (06:01→21:17)
[2016-09-14] MEDS: INSULIN SLIDING SCALE (NOVOLOG) 1 VIAL SQ SCH ×4 (06:01→21:12)
[2016-09-14 06:18] LABS: ALBUMIN 1.6 g/dl (3.4-5.0); ANION GAP 3 (8-16); CALCIUM 9.1 mg/dL (8.5-10.1); CO2 32 mmol/L (21-32); CREATININE 0.3 mg/dL (0.55-1.02); GLUCOSE,RANDOM 162 mg/dL (74-106); MAGNESIUM 1.5 mg/dL (1.8-2.4); PHOSPHOROUS 2.6 mg/dL (2.5-4.9); SGOT/AST 17 U/L (15-37); SGPT/ALT 14 U/L (12-78)
[2016-09-14 06:20] LABS: ALK PHOS 107 U/L (45-117); BILIRUBIN,TOTAL 0.1 mg/dL (0.2-1.0); TOT PROT 5.9 g/dl (6.4-8.2)
[2016-09-14] MEDS: MAGNESIUM OXIDE 400 MG TABLET (FP) GT SCH ×2 (09:11→21:14)
[2016-09-14] MEDS: RANITIDINE HCL 150 MG/10 ML UNIT-DOSE CUP PO SCH ×2 (09:11→21:14)
[2016-09-14] MEDS: POTASSIUM CHLORIDE ORAL LIQUID 20 MEQ/15 ML GT SCH ×2 (09:11→21:14)
[2016-09-14] MEDS: ENOXAPARIN NA (PORCINE) 40 MG/0.4 ML DISP.SYRIN SQ SCH ×2 (09:12→21:13)
[2016-09-14] MEDS: CHLORHEXIDINE GLUCONATE 0.12% 15ML CUP MM SCH ×2 (09:12→21:14)
[2016-09-14] MEDS: FUROSEMIDE 20 MG TABLET (FP) GT SCH (09:13)
[2016-09-14] MEDS: prednisoLONE ACETATE 1% OPHTH SUSP 5 ML BOTTLE OD SCH ×2 (09:14→21:18)
--- NOTE | 2016-09-14 09:43 | PN ---
Progress Note (short form) - Note Progress Note: PULMONARY/CCM Pt seen and examined in the ICU. Vented on volume assist control with 60% FiO2. Remains poorly responsive. Low grade temp overnight. Last Vital Signs Temp Pulse Resp BP Pulse Ox 99.6 F 80 15 99/46 97 09/14/16 06:00 09/14/16 08:00 09/14/16 08:00 09/14/16 08:00 09/13/16 22:00 Intake & Output 09/11/16 09/12/16 09/13/16 09/14/16 23:59 23:59 23:59 23:59 Intake Total 1820 1400 2120 620 Output Total 893 900 450 200 Balance 727 541 1972 420 Weight 130 lb 128 lb 4 oz 126 lb 3.2 oz 127 lb 11.2 oz Gen: vented, poorly responsive Heart: tachycardic, regular Lung: bilateral rhonchi Abd: soft, nontender, +fistula drainage Ext: multiple ulcers, dry gangrene of bilateral feet, fingers CBC, BMP 09/14/16 05:15 09/14/16 05:15 Active Medications Acetaminophen (Tylenol Oral Solution -) 650 mg PO Q6H PRN PRN Reason: FEVER OR PAIN Last Admin: 09/13/16 21:59 Dose: 650 mg Chlorhexidine Gluconate (Peridex -) 15 ml MM BID [facility] Last Admin: 09/14/16 09:12 Dose: 15 ml Dextrose (D50w (Vial) -) 50 ml IVPUSH Q15M PRN PRN Reason: BLOOD SUGAR < 60 Enoxaparin Sodium (Lovenox -) 40 mg SQ BID [facility] Last Admin: 09/14/16 09:12 Dose: 40 mg Fentanyl (Duragesic 25mcg Patch -) 1 patch TD Q72H [facility] Stop: 09/18/16 13:17 Last Admin: 09/11/16 14:02 Dose: 1 patch Furosemide (Lasix -) 20 mg GT DAILY [facility] Last Admin: 09/14/16 09:13 Dose: 20 mg Ceftazidime 1 gm/ Dextrose 50 mls @ 100 mls/hr IVPB Q8H-IV [facility] PRN Reason: Protocol Last Admin: 09/14/16 09:11 Dose: 100 mls/hr Insulin Aspart (Novolog Vial Sliding Scale -) 1 vial SQ ACHS [facility] PRN Reason: Protocol Last Admin: 09/14/16 06:01 Dose: Not Given Insulin Detemir (Levemir Vial) 18 units SQ HS [facility] Last Admin: 09/13/16 23:09 Dose: 18 units Magnesium Oxide (Mag-Ox -) 400 mg GT BID [facility] Last Admin: 09/14/16 09:11 Dose: 400 mg Miscellaneous (Duragesic Patch Waste) 1 each TD PRN PRN PRN Reason: PAIN Last Admin: 09/07/16 19:14 Dose: 1 each Miscellaneous (Duragesic Patch Waste) 1 each TD PRN PRN PRN Reason: PAIN Morphine Sulfate (Morphine Injection -) 2 mg IVPUSH Q4H PRN PRN Reason: PAIN Last Admin: 09/13/16 21:57 Dose: 2 mg Ofloxacin (Ocuflox 0.3% Eye Drops -) 1 drop OD Q4HWA [facility] Last Admin: 09/14/16 09:15 Dose: 1 drop Potassium Chloride (Potassium Chloride Oral Liquid) 40 meq GT BID [facility] Last Admin: 09/14/16 09:11 Dose: 40 meq Prednisolone Acetate (Pred Forte 1% -) 1 drop OD BID [facility] Last Admin: 09/14/16 09:14 Dose: 1 drop Ranitidine HCl (Zantac Oral Solution -) 150 mg PO BID [facility] Last Admin: 09/14/16 09:11 Dose: 150 mg A/P Perforated Duodenal Ulcer Peritonitis s/p ex-lap/omental patch repair 07/16 Enterocutaneous Fistula Acute Respiratory Failure s/p Tracheostomy s/p Septic Shock DM DVT Gangrene s/p PEA Cardiac Arrest - antibiotics per ID - taper Fio2 to keep Spo2 >90% - continue anticoagulation - transfuse PRBC - morphine for comfort - enteral feeds as tolerated - volume assist control, poor candidate for weaning - DVT/GI prophylaxis - prognosis is poor, continue discussions regarding advanced directives and goals of care - recommend palliative due to failure to wean, anticipated amputations, poor quality of life critical care time spent in reviewing chart, evaluating patient and formulating plan 35 min
[2016-09-14] MEDS ORDERED: MAGNESIUM SULF 50% (8.12 MEQ/2 ML-1 GM VIAL) IVPB ONE (10:15)
[2016-09-14] MEDS ORDERED: MAGNESIUM SULF 50% (8.12 MEQ/2 ML-1 GM VIAL) ONE (12:27)
[2016-09-14] MEDS: ACETAMINOPHEN 650 MG/20.3 ML ORAL SOLUTION (CUPS) PO PRN ×2 (12:28→21:15)
--- NOTE | 2016-09-14 13:14 | PN ---
Progress Note, Physician Chief Complaint: Remained at her base line , , low grade fever , opens eye to verbal command, on Vent Saturating well. FS are better controlled, no extremities movement s/p PEA cardiac arrest reviewed now on Vent. remained afebrile. History of Present Illness: 65-year-old F H/O hypertension, hypercholesterolemia, T2DM, ETOH abuse, was presented to ED with abd pain and weight loss underwent exploratory laprotomy for perforated duodenal ulcer on 07/21/16 developed hypotention and sepsis intubate now on trach, colostomy and TPN.on Vent and IV abxfor [facility] abdominal wound still pus discharge with. FS are better controlled underwent G Tube placement tolerating feeding.patient had PEA arrested with sepsis. - Current Medication List Current Medications: Active Medications Acetaminophen (Tylenol Oral Solution -) 650 mg PO Q6H PRN PRN Reason: FEVER OR PAIN Last Admin: 09/14/16 12:28 Dose: 650 mg Chlorhexidine Gluconate (Peridex -) 15 ml MM BID [facility] Last Admin: 09/14/16 09:12 Dose: 15 ml Dextrose (D50w (Vial) -) 50 ml IVPUSH Q15M PRN PRN Reason: BLOOD SUGAR < 60 Enoxaparin Sodium (Lovenox -) 40 mg SQ BID [facility] Last Admin: 09/14/16 09:12 Dose: 40 mg Fentanyl (Duragesic 25mcg Patch -) 1 patch TD Q72H [facility] Stop: 09/18/16 13:17 Last Admin: 09/11/16 14:02 Dose: 1 patch Furosemide (Lasix -) 20 mg GT DAILY [facility] Last Admin: 09/14/16 09:13 Dose: 20 mg Ceftazidime 1 gm/ Dextrose 50 mls @ 100 mls/hr IVPB Q8H-IV [facility] PRN Reason: Protocol Last Admin: 09/14/16 09:11 Dose: 100 mls/hr Insulin Aspart (Novolog Vial Sliding Scale -) 1 vial SQ ACHS [facility] PRN Reason: Protocol Last Admin: 09/14/16 11:30 Dose: 2 units Insulin Detemir (Levemir Vial) 18 units SQ HS [facility] Last Admin: 09/13/16 23:09 Dose: 18 units Magnesium Oxide (Mag-Ox -) 400 mg GT BID [facility] Last Admin: 09/14/16 09:11 Dose: 400 mg Miscellaneous (Duragesic Patch Waste) 1 each TD PRN PRN PRN Reason: PAIN Last Admin: 09/07/16 19:14 Dose: 1 each Miscellaneous (Duragesic Patch Waste) 1 each TD PRN PRN PRN Reason: PAIN Morphine Sulfate (Morphine Injection -) 2 mg IVPUSH Q4H PRN PRN Reason: PAIN Last Admin: 09/13/16 21:57 Dose: 2 mg Ofloxacin (Ocuflox 0.3% Eye Drops -) 1 drop OD Q4HWA [facility] Last Admin: 09/14/16 09:15 Dose: 1 drop Potassium Chloride (Potassium Chloride Oral Liquid) 40 meq GT BID [facility] Last Admin: 09/14/16 09:11 Dose: 40 meq Prednisolone Acetate (Pred Forte 1% -) 1 drop OD BID [facility] Last Admin: 09/14/16 09:14 Dose: 1 drop Ranitidine HCl (Zantac Oral Solution -) 150 mg PO BID [facility] Last Admin: 09/14/16 09:11 Dose: 150 mg - Objective Vital Signs: Vital Signs Temperature 99.6 F 09/14/16 06:00 Pulse Rate 80 09/14/16 08:00 Respiratory Rate 20 09/14/16 10:00 Blood Pressure 99/46 09/14/16 08:00 O2 Sat by Pulse Oximetry (%) 100 09/14/16 09:00 P Exam; Patient remained altered minimally responsive, on Vent HEENT: Trach at the place on Vent , need intermittent Vent support, mm most, anemia NECK; IJJ at place, no JVD CHEST: Good AE minimal crepts ABD; Colostomy bag at place, 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 Derm; Extensive skin peeling and gangrene of fingers and toes, p Labs: CBC, BMP 09/14/16 05:15 09/14/16 05:15 INR, PTT INR 1.14 (0.82-1.09) 09/07/16 22:45 Fibrinogen > 700.0 mg/dL (238-498) H 07/31/16 05:40 Problem List - Problems (1) Perforated abdominal viscus Assessment/Plan: Patient was presented with Rt UQ pain and with free air, Duodenal ulcer perforation s/p surgery. now fistula formation draining exudates.fistula still has discharge evaluate by surgery. and GI consult, patient has colostomy bag at place, abdominal wound discharging on IV abx.. Code(s): [id number] - (2) Acute metabolic encephalopathy Assessment/Plan: Secondary to hypoperfusion due to septic shock, at present no significant improvement , most likely hypoxic encephalopathy. Code(s): G93.41 - METABOLIC ENCEPHALOPATHY (3) Ischemia of extremity Assessment/Plan: Ischemia off all extremities due to prolonged vasopressor use, patient needed pressure to maintain BP, now off pressors wound care healing slowly. Code(s): I99.8 - OTHER DISORDER OF CIRCULATORY SYSTEM (4) Sepsis Assessment/Plan: Due to perforated gastric now off pressors, on I V fluconazole and Zosyn F/U cultures.Prognosis is guarded. TWBC normal. Code(s): A41.9 - SEPSIS, UNSPECIFIED ORGANISM (5) Severe malnutrition Assessment/Plan: S/P PG tolerating feeding remove NG tube, Nutrition consult.. Code(s): E43 - UNSPECIFIED SEVERE PROTEIN-CALORIE MALNUTRITION (6) Diabetes mellitus Code(s): E11.9 - TYPE 2 DIABETES MELLITUS WITHOUT COMPLICATIONS Qualifiers: Diabetes mellitus type: type 2 (7) Cardiac arrest due to respiratory disorder Assessment/Plan: S/P resuuciation Code(s): J98.9 - RESPIRATORY DISORDER, UNSPECIFIED I46.8 - CARDIAC ARREST DUE TO OTHER UNDERLYING CONDITION (8) Anemia Assessment/Plan: Drop in H/H 2 unit PRBC F/U H/H after transfusion. Code(s): D64.9 - ANEMIA, UNSPECIFIED
[2016-09-14] MEDS: fentaNYL 25mcg/hr PATCH.TD72 TD SCH (14:30)
--- NOTE | 2016-09-14 14:38 | PN ---
Progress Note, Physician History of Present Illness: patient much more awake and alert restless family in room low grade temp - Current Medication List Current Medications: Active Medications Acetaminophen (Tylenol Oral Solution -) 650 mg PO Q6H PRN PRN Reason: FEVER OR PAIN Last Admin: 09/14/16 12:28 Dose: 650 mg Chlorhexidine Gluconate (Peridex -) 15 ml MM BID [facility] Last Admin: 09/14/16 09:12 Dose: 15 ml Dextrose (D50w (Vial) -) 50 ml IVPUSH Q15M PRN PRN Reason: BLOOD SUGAR < 60 Enoxaparin Sodium (Lovenox -) 40 mg SQ BID [facility] Last Admin: 09/14/16 09:12 Dose: 40 mg Fentanyl (Duragesic 25mcg Patch -) 1 patch TD Q72H [facility] Stop: 09/18/16 13:17 Last Admin: 09/11/16 14:02 Dose: 1 patch Furosemide (Lasix -) 20 mg GT DAILY [facility] Last Admin: 09/14/16 09:13 Dose: 20 mg Ceftazidime 1 gm/ Dextrose 50 mls @ 100 mls/hr IVPB Q8H-IV [facility] PRN Reason: Protocol Last Admin: 09/14/16 09:11 Dose: 100 mls/hr Insulin Aspart (Novolog Vial Sliding Scale -) 1 vial SQ ACHS [facility] PRN Reason: Protocol Last Admin: 09/14/16 11:30 Dose: 2 units Insulin Detemir (Levemir Vial) 18 units SQ HS [facility] Last Admin: 09/13/16 23:09 Dose: 18 units Magnesium Oxide (Mag-Ox -) 400 mg GT BID [facility] Last Admin: 09/14/16 09:11 Dose: 400 mg Miscellaneous (Duragesic Patch Waste) 1 each TD PRN PRN PRN Reason: PAIN Last Admin: 09/07/16 19:14 Dose: 1 each Miscellaneous (Duragesic Patch Waste) 1 each TD PRN PRN PRN Reason: PAIN Morphine Sulfate (Morphine Injection -) 2 mg IVPUSH Q4H PRN PRN Reason: PAIN Last Admin: 09/13/16 21:57 Dose: 2 mg Ofloxacin (Ocuflox 0.3% Eye Drops -) 1 drop OD Q4HWA [facility] Last Admin: 09/14/16 09:15 Dose: 1 drop Potassium Chloride (Potassium Chloride Oral Liquid) 40 meq GT BID [facility] Last Admin: 09/14/16 09:11 Dose: 40 meq Prednisolone Acetate (Pred Forte 1% -) 1 drop OD BID [facility] Last Admin: 09/14/16 09:14 Dose: 1 drop Ranitidine HCl (Zantac Oral Solution -) 150 mg PO BID [facility] Last Admin: 09/14/16 09:11 Dose: 150 mg - Objective Vital Signs: Vital Signs Temperature 100.4 F H 09/14/16 12:00 Pulse Rate 90 09/14/16 12:00 Respiratory Rate 16 09/14/16 12:00 Blood Pressure 105/54 09/14/16 12:00 O2 Sat by Pulse Oximetry (%) 100 09/14/16 10:00 Constitutional: Yes: Anxious, Other Cardiovascular: Yes: Regular Rate and Rhythm Respiratory: Yes: Mechanically Ventilated, Poor Air Entry, Other (trach) Gastrointestinal: Yes: Normal Bowel Sounds, Soft, Other (peg in place) Musculoskeletal: Yes: Other Extremities: Yes: Other (dry gangrene) Neurological: Yes: Alert, Other Psychiatric: Yes: Alert Labs: CBC, BMP 09/14/16 05:15 09/14/16 05:15 INR, PTT INR 1.14 (0.82-1.09) 09/07/16 22:45 Fibrinogen > 700.0 mg/dL (238-498) H 07/31/16 05:40 Assessment/Plan Problem List - Problems (1) Abdominal pain Code(s): R10.9 - UNSPECIFIED ABDOMINAL PAIN Qualifiers: Qualified Code(s): R10.33 - Periumbilical pain (2) Perforated abdominal viscus Code(s): [id number] - (3) Perforated viscus Code(s): R19.8 - OTH SYMPTOMS AND SIGNS INVOLVING THE DGSTV SYS AND ABDOMEN (4) Hypertension Code(s): I10 - ESSENTIAL (PRIMARY) HYPERTENSION Qualifiers: Qualified Code(s): I10 - Essential (primary) hypertension lactic acidosis fevers generalized swelling gangrene of the tip of the fingers noted pseudomonas pneumonia patient having loose stools plan we will continue monitoring final plan awaited about the trach tube continue abx for now patients temp fluctuates i am leaning towards stopping abx but still spiking low grade fevers will ahve to see what family decision is regarding trach cc time 40 min
[2016-09-14] MEDS: morphine CARPU-JECT 2 MG/1 ML DISP.SYRIN IVPUSH PRN ×2 (15:10→22:27)
[2016-09-14] MEDS ORDERED: PT OWN MED DRAWER 7, Y5N ONE (17:42)
[2016-09-14] MEDS: INSULIN DETEMIR 100 UNITS/ML MDV SQ SCH (21:13)
[2016-09-15] MEDS: CEFTAZIDIME PENTAHYDRATE 1 GM in DEXTROSE 5%-WATER - 50 ML IVPB SCH ×3 (01:45→17:38)
[2016-09-15 05:39] LABS: BASOPHIL 0.6 % (0-2.0); EOSINOPHIL 3.8 % (0-4.5); MCH 28.1 pg (25.7-33.7); MCHC 33.4 g/dl (32.0-36.0); MEAN CELL VOLUME 84.2 fl (80-96); MEAN PLT VOLUME 7.7 fl (7.5-11.1); NEUTROPHILS 52.2 % (42.8-82.8); PLATELET COUNT 376 K/MM3 (134-434); RDW 17.3 % (11.6-15.6); WHITE BLOOD COUNT 9.3 K/mm3 (4.0-10.0)
[2016-09-15] MEDS: OFLOXACIN 0.3% OPHTHALMIC SOLUTION 5 ML BOTTLE OD SCH ×5 (05:59→23:07)
[2016-09-15] MEDS: INSULIN SLIDING SCALE (NOVOLOG) 1 VIAL SQ SCH ×4 (06:00→23:51)
[2016-09-15 06:34] LABS: ALBUMIN 1.7 g/dl (3.4-5.0); ALK PHOS 101 U/L (45-117); ANION GAP 6 (8-16); BILIRUBIN,TOTAL 0.3 mg/dL (0.2-1.0); CALCIUM 9.3 mg/dL (8.5-10.1); CO2 32 mmol/L (21-32); CREATININE 0.2 mg/dL (0.55-1.02); GLUCOSE,RANDOM 107 mg/dL (74-106); MAGNESIUM 1.5 mg/dL (1.8-2.4); PHOSPHOROUS 3.1 mg/dL (2.5-4.9); SGOT/AST 16 U/L (15-37); SGPT/ALT 13 U/L (12-78); TOT PROT 5.9 g/dl (6.4-8.2)
[2016-09-15] MEDS ORDERED: PT OWN MED DRAWER 7, Y5N ONE ×2 (07:47→17:36)
[2016-09-15] MEDS: POTASSIUM CHLORIDE ORAL LIQUID 20 MEQ/15 ML GT SCH ×3 (10:00→23:53)
[2016-09-15] MEDS: ENOXAPARIN NA (PORCINE) 40 MG/0.4 ML DISP.SYRIN SQ SCH ×2 (10:18→23:06)
[2016-09-15] MEDS: FUROSEMIDE 20 MG TABLET (FP) GT SCH (10:19)
[2016-09-15] MEDS: MAGNESIUM OXIDE 400 MG TABLET (FP) GT SCH ×3 (10:19→23:53)
[2016-09-15] MEDS: RANITIDINE HCL 150 MG/10 ML UNIT-DOSE CUP PO SCH ×3 (10:19→23:53)
[2016-09-15] MEDS: CHLORHEXIDINE GLUCONATE 0.12% 15ML CUP MM SCH (10:20)
[2016-09-15] MEDS: prednisoLONE ACETATE 1% OPHTH SUSP 5 ML BOTTLE OD SCH ×2 (10:28→23:25)
--- NOTE | 2016-09-15 11:42 | PN ---
Progress Note (short form) - Note Progress Note: Renal Follow up for ZAHIRA/Metabolic acidosis Pt seen and examined in the ICU on vent, 40% FiO2 Febrile yesterday Vital Signs Temperature 99.4 F 09/15/16 09:30 Pulse Rate 82 09/15/16 09:30 Respiratory Rate 15 09/15/16 11:09 Blood Pressure 119/57 09/15/16 09:30 O2 Sat by Pulse Oximetry (%) 100 09/15/16 09:30 Intake & Output 09/12/16 09/13/16 09/14/16 09/15/16 23:59 23:59 23:59 23:59 Intake Total 1400 2120 3180 690 Output Total 977 456 5913 355 Balance 500 1670 1955 335 Weight 128 lb 4 oz 126 lb 3.2 oz 127 lb 11.2 oz 130 lb 8 oz Gen: on Vent, NAD CVS: RRR, No M/R Lungs: Dec BS b/l lung andino Ext: no edema in LE or at the sacrum CBC, BMP 09/15/16 05:05 09/15/16 05:05 Laboratory Tests 09/15/16 09/15/16 05:05 05:05 MCV 84.2 Calcium 9.3 Phosphorus 3.1 Magnesium 1.5 L Albumin 1.7 L Current Medications Acetaminophen (Tylenol Oral Solution -) 650 mg PO Q6H PRN PRN Reason: FEVER OR PAIN Last Admin: 09/14/16 21:15 Dose: 650 mg Chlorhexidine Gluconate (Peridex -) 15 ml MM BID [facility] Last Admin: 09/15/16 10:20 Dose: 15 ml Dextrose (D50w (Vial) -) 50 ml IVPUSH Q15M PRN PRN Reason: BLOOD SUGAR < 60 Enoxaparin Sodium (Lovenox -) 40 mg SQ BID [facility] Last Admin: 09/15/16 10:18 Dose: 40 mg Fentanyl (Duragesic 25mcg Patch -) 1 patch TD Q72H [facility] Stop: 09/18/16 13:17 Last Admin: 09/14/16 14:30 Dose: 1 patch Furosemide (Lasix -) 20 mg GT DAILY [facility] Last Admin: 09/15/16 10:19 Dose: 20 mg Ceftazidime 1 gm/ Dextrose 50 mls @ 100 mls/hr IVPB Q8H-IV [facility] PRN Reason: Protocol Last Admin: 09/15/16 10:18 Dose: 100 mls/hr Insulin Aspart (Novolog Vial Sliding Scale -) 1 vial SQ ACHS [facility] PRN Reason: Protocol Last Admin: 09/15/16 06:00 Dose: Not Given Insulin Detemir (Levemir Vial) 18 units SQ HS [facility] Last Admin: 09/14/16 21:13 Dose: 18 units Magnesium Oxide (Mag-Ox -) 400 mg GT BID [facility] Last Admin: 09/15/16 10:19 Dose: 400 mg Miscellaneous (Duragesic Patch Waste) 1 each TD PRN PRN PRN Reason: PAIN Last Admin: 09/07/16 19:14 Dose: 1 each Miscellaneous (Duragesic Patch Waste) 1 each TD PRN PRN PRN Reason: PAIN Last Admin: 09/14/16 14:30 Dose: 1 each Morphine Sulfate (Morphine Injection -) 2 mg IVPUSH Q4H PRN PRN Reason: PAIN Last Admin: 09/14/16 22:27 Dose: 2 mg Ofloxacin (Ocuflox 0.3% Eye Drops -) 1 drop OD Q4HWA [facility] Last Admin: 09/15/16 10:20 Dose: 1 drop Potassium Chloride (Potassium Chloride Oral Liquid) 40 meq GT BID [facility] Last Admin: 09/15/16 10:00 Dose: 40 meq Prednisolone Acetate (Pred Forte 1% -) 1 drop OD BID [facility] Last Admin: 09/15/16 10:28 Dose: 1 drop Ranitidine HCl (Zantac Oral Solution -) 150 mg PO BID [facility] Last Admin: 09/15/16 10:19 Dose: 150 mg A/P 65 year old woman with PMhx of hypertension, hypercholesterolemia, diabetes mellitus who presented with Abd pain and found to have perforated Abd viscus s/ p emergent Sx now with Septic Shock, ZAHIRA and Metabolic Acidosis. #Sepsis/Perforated Abd Viscus/Abscess ICU monitoring, Vent support Abx as per ID #Hypomagnesemia/Hypokalemia supplement to keep K > 3.5 and Mg > 2 continue Oral Mg Oxide Give IV Mag Sulfate today as Mg is 1.5 #Hypernatremia Increase free water as G tube feeds are titrated up #Edema/Pulmonary vascular congestion continue Lasix via G-tube will sign off pt at this time please call back with any questions or concerns Cyril Tubbs DO
--- NOTE | 2016-09-15 11:57 | PN ---
Teaching Attending Note Name of Resident: Miles Leon ATTENDING PHYSICIAN STATEMENT I saw and evaluated the patient. I reviewed the resident's note and discussed the case with the resident. I agree with the resident's findings and plan as documented. SUBJECTIVE: Pt seen and examined in the ICU. Vented on volume assist control. Peak pressures within normal range. Poorly responsive. Intermittent temps. OBJECTIVE: Last Vital Signs Temp Pulse Resp BP Pulse Ox 99.4 F 82 15 119/57 100 09/15/16 09:30 09/15/16 09:30 09/15/16 11:09 09/15/16 09:30 09/15/16 09:30 Intake & Output 09/12/16 09/13/16 09/14/16 09/15/16 23:59 23:59 23:59 23:59 Intake Total 1400 2120 3180 690 Output Total 893 004 2424 355 Balance 500 1670 1955 335 Weight 128 lb 4 oz 126 lb 3.2 oz 127 lb 11.2 oz 130 lb 8 oz Gen: vented, poorly responsive Heart: RRR Lung: scattered rhonchi Abd: soft, nontender Ext: no edema CBC, BMP 09/15/16 05:05 09/15/16 05:05 Active Medications Acetaminophen (Tylenol Oral Solution -) 650 mg PO Q6H PRN PRN Reason: FEVER OR PAIN Last Admin: 09/14/16 21:15 Dose: 650 mg Chlorhexidine Gluconate (Peridex -) 15 ml MM BID [facility] Last Admin: 09/15/16 10:20 Dose: 15 ml Dextrose (D50w (Vial) -) 50 ml IVPUSH Q15M PRN PRN Reason: BLOOD SUGAR < 60 Enoxaparin Sodium (Lovenox -) 40 mg SQ BID [facility] Last Admin: 09/15/16 10:18 Dose: 40 mg Fentanyl (Duragesic 25mcg Patch -) 1 patch TD Q72H [facility] Stop: 09/18/16 13:17 Last Admin: 09/14/16 14:30 Dose: 1 patch Furosemide (Lasix -) 20 mg GT DAILY [facility] Last Admin: 09/15/16 10:19 Dose: 20 mg Ceftazidime 1 gm/ Dextrose 50 mls @ 100 mls/hr IVPB Q8H-IV [facility] PRN Reason: Protocol Last Admin: 09/15/16 10:18 Dose: 100 mls/hr Insulin Aspart (Novolog Vial Sliding Scale -) 1 vial SQ ACHS [facility] PRN Reason: Protocol Last Admin: 09/15/16 06:00 Dose: Not Given Insulin Detemir (Levemir Vial) 18 units SQ HS [facility] Last Admin: 09/14/16 21:13 Dose: 18 units Magnesium Oxide (Mag-Ox -) 400 mg GT BID [facility] Last Admin: 09/15/16 10:19 Dose: 400 mg Magnesium Sulfate (Magnesium Sulfate) 2 gm IVPB ONCE ONE Stop: 09/15/16 12:01 Miscellaneous (Duragesic Patch Waste) 1 each TD PRN PRN PRN Reason: PAIN Last Admin: 09/07/16 19:14 Dose: 1 each Miscellaneous (Duragesic Patch Waste) 1 each TD PRN PRN PRN Reason: PAIN Last Admin: 09/14/16 14:30 Dose: 1 each Morphine Sulfate (Morphine Injection -) 2 mg IVPUSH Q4H PRN PRN Reason: PAIN Last Admin: 09/14/16 22:27 Dose: 2 mg Ofloxacin (Ocuflox 0.3% Eye Drops -) 1 drop OD Q4HWA [facility] Last Admin: 09/15/16 10:20 Dose: 1 drop Potassium Chloride (Potassium Chloride Oral Liquid) 40 meq GT BID [facility] Last Admin: 09/15/16 10:00 Dose: 40 meq Prednisolone Acetate (Pred Forte 1% -) 1 drop OD BID [facility] Last Admin: 09/15/16 10:28 Dose: 1 drop Ranitidine HCl (Zantac Oral Solution -) 150 mg PO BID [facility] Last Admin: 09/15/16 10:19 Dose: 150 mg ASSESSMENT AND PLAN: Perforated Duodenal Ulcer Peritonitis s/p ex-lap/omental patch repair 07/16 Enterocutaneous Fistula Acute Respiratory Failure s/p Tracheostomy s/p Septic Shock DM DVT Gangrene s/p PEA Cardiac Arrest - antibiotics per ID - taper Fio2 to keep Spo2 >90% - continue anticoagulation - morphine for comfort - enteral feeds as tolerated - volume assist control, poor candidate for weaning - DVT/GI prophylaxis - prognosis is poor, continue discussions regarding advanced directives and goals of care - recommend palliative due to failure to wean, anticipated amputations, poor quality of life - can monitor on vent floor
[2016-09-15] MEDS ORDERED: MAGNESIUM SULF 50% (8.12 MEQ/2 ML-1 GM VIAL) IVPB ONE ×2 (12:00→12:35)
--- NOTE | 2016-09-15 13:26 | PN ---
Physical Exam: SUBJECTIVE: Patient seen and examined at bedside. Pt w/trach and on vent. History unobtainable from patient. Spoke with patient's who states he would not like trach changed at this time. I also explained to that patient is stable for transfer to med/ surg floor. OBJECTIVE: Vital Signs Temperature 99.4 F 09/15/16 09:30 Pulse Rate 82 09/15/16 09:30 Respiratory Rate 15 09/15/16 11:09 Blood Pressure 119/57 09/15/16 09:30 O2 Sat by Pulse Oximetry (%) 100 09/15/16 09:30 GENERAL: The patient is awake, on vent. ENT: Ears normal, nares patent NECK: Trachea midline LUNGS: Some coarse breath sounds noted. On vent. HEART: Regular rate and rhythm, S1, S2 without murmur, rub or gallop. ABDOMEN: Soft, nontender, nondistended, normoactive bowel sounds, no guarding, no rebound, no hepatosplenomegaly, no masses. EXTREMITIES: Gangrenous hands and feet. SKIN: Warm, gangrenous hands and feet. Laboratory Results - last 24 hr 09/12/16 09/12/16 09/14/16 12:05 12:09 10:45 WBC RBC Hgb Hct MCV MCH MCHC RDW Plt Count MPV Neutrophils % Lymphocytes % Monocytes % Eosinophils % Basophils % Sodium Potassium Chloride Carbon Dioxide Anion Gap BUN Creatinine Creat Clearance w eGFR POC Glucometer > 400 > 400 Random Glucose Calcium Phosphorus Magnesium Total Bilirubin AST ALT Alkaline Phosphatase Total Protein Albumin Blood Type O POSITIVE Antibody Screen Negative Crossmatch See Detail 09/14/16 09/14/16 09/15/16 11:06 21:06 05:05 WBC 9.3 RBC 3.24 L D Hgb 9.1 L D Hct 27.3 L D MCV 84.2 MCH 28.1 MCHC 33.4 RDW 17.3 H Plt Count 376 MPV 7.7 Neutrophils % 52.2 Lymphocytes % 33.5 Monocytes % 9.9 Eosinophils % 3.8 Basophils % 0.6 Sodium Potassium Chloride Carbon Dioxide Anion Gap BUN Creatinine Creat Clearance w eGFR POC Glucometer 182.39008 175.94012 Random Glucose Calcium Phosphorus Magnesium Total Bilirubin AST ALT Alkaline Phosphatase Total Protein Albumin Blood Type Antibody Screen Crossmatch 09/15/16 09/15/16 05:05 05:29 WBC RBC Hgb Hct MCV MCH MCHC RDW Plt Count MPV Neutrophils % Lymphocytes % Monocytes % Eosinophils % Basophils % Sodium 143 Potassium 4.6 Chloride 105 Carbon Dioxide 32 Anion Gap 6 L BUN 11 Creatinine 0.2 L D Creat Clearance w eGFR > 60 POC Glucometer 129.71622 Random Glucose 107 H D Calcium 9.3 Phosphorus 3.1 Magnesium 1.5 L Total Bilirubin 0.3 D AST 16 ALT 13 Alkaline Phosphatase 101 Total Protein 5.9 L Albumin 1.7 L Blood Type Antibody Screen Crossmatch Active Medications Generic Name Dose Route Start Last Admin Trade Name Freq PRN Reason Stop Dose Admin Acetaminophen 650 mg 09/04/16 08:48 09/14/16 21:15 Tylenol Oral Solution - PO 650 mg Q6H PRN Administration FEVER OR PAIN Chlorhexidine Gluconate 15 ml 08/13/16 22:00 09/15/16 10:20 Peridex - MM 15 ml BID [facility] Administration Dextrose 50 ml 08/13/16 19:11 D50w (Vial) - IVPUSH Q15M PRN BLOOD SUGAR < 60 Enoxaparin Sodium 40 mg 09/07/16 22:00 09/15/16 10:18 Lovenox - SQ 40 mg BID [facility] Administration Fentanyl 1 patch 09/11/16 13:30 09/14/16 14:30 Duragesic 25mcg Patch - TD 09/18/16 13:17 1 patch Q72H [facility] Administration Furosemide 20 mg 08/30/16 10:00 09/15/16 10:19 Lasix - GT 20 mg DAILY [facility] Administration Ceftazidime 1 gm/ Dextrose 50 mls @ 100 mls/hr 09/03/16 15:00 09/15/16 10:18 IVPB 100 mls/hr Q8H-IV [facility] Administration Protocol Insulin Aspart 1 vial 08/13/16 22:00 09/15/16 06:00 Novolog Vial Sliding Scale - SQ Not Given ACHS [facility] Protocol Insulin Detemir 18 units 08/30/16 12:50 09/14/16 21:13 Levemir Vial SQ 18 units HS [facility] Administration Magnesium Oxide 400 mg 09/11/16 22:00 09/15/16 10:19 Mag-Ox - GT 400 mg BID [facility] Administration Miscellaneous 1 each 08/13/16 19:11 09/07/16 19:14 Duragesic Patch Waste TD 1 each PRN PRN Administration PAIN Miscellaneous 1 each 09/11/16 13:16 09/14/16 14:30 Duragesic Patch Waste TD 1 each PRN PRN Administration PAIN Morphine Sulfate 2 mg 09/13/16 12:45 09/14/16 22:27 Morphine Injection - IVPUSH 2 mg Q4H PRN Administration PAIN Ofloxacin 1 drop 08/27/16 14:00 09/15/16 10:20 Ocuflox 0.3% Eye Drops - OD 1 drop Q4HWA [facility] Administration Potassium Chloride 40 meq 09/12/16 11:15 09/15/16 10:00 Potassium Chloride Oral Liquid GT 40 meq BID [facility] Administration Prednisolone Acetate 1 drop 08/27/16 14:00 09/15/16 10:28 Pred Forte 1% - OD 1 drop BID [facility] Administration Ranitidine HCl 150 mg 09/04/16 10:00 09/15/16 10:19 Zantac Oral Solution - PO 150 mg BID [facility] Administration ASSESSMENT/PLAN: 66 year old female w/PMH of HTN, HLD, DM, found to have perforated abdominal ulcer, s/p ex-lap, s/p septic shock and admitted to ICU. -Neuro -Not following basic commands -Pulmonary: -Acute respiratory failure, s/p tracheostomy -on vent, maintain O2 saturation above 90% -awaiting family's decision change of trach tube -GI -perforated duodenal ulcer, peritonitis, s/p ex lap on 07/16/16 -c/w ceftazidime 1 gm iv q8h -c/w ranitidine 150 mg po bid -pain control with fentanyl patch 25 mcg q72h, morphine 2mg IV q4h PRN -Endocrine: -DM -ISS ACHS -Levemir 18 units sq qhs -Prophylaxis -DVT: lovenox 40 mg sq bid -FEN: -No fluids at this time -Hypomagnesemia - repleted with Mg sulfate 2g IV once -Vital 1.2 @ 60cc/hr with 20ml/hr flush -Dispo: -Spoke with patient's who states he would not like trach changed at this time. I also explained to that patient is stable for transfer to med/surg floor. -Transfer to floors -Code status: -full code Problem List - Problems (1) Acute metabolic encephalopathy Code(s): G93.41 - METABOLIC ENCEPHALOPATHY (2) Acute respiratory failure Code(s): J96.00 - ACUTE RESPIRATORY FAILURE, UNSP W HYPOXIA OR HYPERCAPNIA (3) Anemia Code(s): D64.9 - ANEMIA, UNSPECIFIED (4) Cardiac arrest due to respiratory disorder Code(s): J98.9 - RESPIRATORY DISORDER, UNSPECIFIED I46.8 - CARDIAC ARREST DUE TO OTHER UNDERLYING CONDITION (5) Diabetes mellitus Code(s): E11.9 - TYPE 2 DIABETES MELLITUS WITHOUT COMPLICATIONS Qualifiers: Diabetes mellitus type: type 2 (6) Hypomagnesemia Code(s): E83.42 - HYPOMAGNESEMIA (7) Ventilator dependence Code(s): Z99.11 - DEPENDENCE ON RESPIRATOR [VENTILATOR] STATUS Visit type - Emergency Visit Emergency Visit: Yes ED Registration Date: 07/16/16 Care time: The patient presented to the Emergency Department on the above date and was hospitalized for further evaluation of their emergent condition. - New Patient This patient is new to me today: No - Critical Care Critical Care patient: Yes Total Critical Care Time (in minutes): 40 Critical Care Statement: The care of this patient involved high complexity decision making to prevent further life threatening deterioration of the patient 's condition and/or to evalute & treat vital organ system(s) failure or risk of failure.
[2016-09-15] MEDS: morphine CARPU-JECT 2 MG/1 ML DISP.SYRIN IVPUSH PRN (14:00)
[2016-09-15] MEDS ORDERED: FENTANYL PATCH WASTE TD PRN ×2 (18:26)
[2016-09-15] MEDS ORDERED: DEXTROSE 50%-WATER - 25 GM/50 ML VIAL IVPUSH PRN (18:26)
--- NOTE | 2016-09-15 18:40 | PN ---
Progress Note, Physician History of Present Illness: continues to be status quo no new issues - Current Medication List Current Medications: Active Medications Acetaminophen (Tylenol Oral Solution -) 650 mg PO Q6H PRN PRN Reason: FEVER OR PAIN Chlorhexidine Gluconate (Peridex -) 15 ml MM BID COUNT [facility]CLUDES [facility] Dextrose (D50w (Vial) -) gm IVPUSH Q15M PRN PRN Reason: BLOOD SUGAR < 60 Enoxaparin Sodium (Lovenox -) 40 mg SQ BID [facility] Fentanyl (Duragesic 25mcg Patch -) 1 patch TD Q72H [facility] Stop: 09/18/16 13:17 Furosemide (Lasix -) 20 mg GT DAILY COUNT [facility] Ceftazidime 1 gm/ Dextrose 50 mls @ 100 mls/hr IVPB Q8H-IV [facility] PRN Reason: Protocol Insulin Aspart (Novolog Vial Sliding Scale -) 1 vial SQ ACHS [facility] PRN Reason: Protocol Insulin Detemir (Levemir Vial) 18 units SQ HS [facility] Magnesium Oxide (Mag-Ox -) 400 mg GT BID COUNT [facility] Miscellaneous (Duragesic Patch Waste) 1 each TD PRN PRN PRN Reason: PAIN Miscellaneous (Duragesic Patch Waste) 1 each TD PRN PRN PRN Reason: PAIN Miscellaneous (Duragesic Patch Waste) 1 each MC PRN PRN PRN Reason: PAIN Morphine Sulfate (Morphine Injection -) 2 mg IVPUSH Q4H PRN PRN Reason: PAIN Ofloxacin (Ocuflox 0.3% Eye Drops -) 1 drop OD Q4HWA COUNT [facility]CLUD[facility] Potassium Chloride (Potassium Chloride Oral Liquid) 40 meq GT BID COUNT [facility] Prednisolone Acetate (Pred Forte 1% -) 1 drop OD BID [facility] Ranitidine HCl (Zantac Oral Solution -) 150 mg PO BID [facility] - Objective Vital Signs: Vital Signs Temperature 99.6 F 09/15/16 13:59 Pulse Rate 79 09/15/16 16:00 Respiratory Rate 15 09/15/16 16:49 Blood Pressure 102/47 09/15/16 16:00 O2 Sat by Pulse Oximetry (%) 100 09/15/16 18:00 Constitutional: Yes: Other Neck: Yes: Other Cardiovascular: Yes: Regular Rate and Rhythm Respiratory: Yes: Mechanically Ventilated, Poor Air Entry Gastrointestinal: Yes: Normal Bowel Sounds, Soft, Other (peg in place) Musculoskeletal: Yes: Other Extremities: Yes: Other (gangrene of the toes and fingers) Neurological: Yes: Alert, Other Labs: CBC, BMP 09/15/16 05:05 09/15/16 05:05 INR, PTT INR 1.14 (0.82-1.09) 09/07/16 22:45 Fibrinogen > 700.0 mg/dL (238-498) H 07/31/16 05:40 Assessment/Plan Problem List - Problems (1) Abdominal pain Code(s): R10.9 - UNSPECIFIED ABDOMINAL PAIN Qualifiers: Qualified Code(s): R10.33 - Periumbilical pain (2) Perforated abdominal viscus Code(s): HBZ0001 - (3) Perforated viscus Code(s): R19.8 - OTH SYMPTOMS AND SIGNS INVOLVING THE DGSTV SYS AND ABDOMEN (4) Hypertension Code(s): I10 - ESSENTIAL (PRIMARY) HYPERTENSION Qualifiers: Qualified Code(s): I10 - Essential (primary) hypertension lactic acidosis fevers generalized swelling gangrene of the tip of the fingers noted pseudomonas pneumonia patient having loose stools plan continue abx continue monitoring rest as per primary final plan needs to be made
--- NOTE | 2016-09-15 20:04 | PN ---
Progress Note, Physician Chief Complaint: No new complaints History of Present Illness: On respirator - Current Medication List Current Medications: Active Medications Acetaminophen (Tylenol Oral Solution -) 650 mg PO Q6H PRN PRN Reason: FEVER OR PAIN Dextrose (D50w (Vial) -) 50 gm IVPUSH Q15M PRN PRN Reason: BLOOD SUGAR < 60 Enoxaparin Sodium (Lovenox -) 40 mg SQ BID [facility] Fentanyl (Duragesic 25mcg Patch -) 1 patch TD Q72H [facility] Stop: 09/18/16 13:17 Furosemide (Lasix -) 20 mg GT DAILY [facility] Ceftazidime 1 gm/ Dextrose 50 mls @ 100 mls/hr IVPB Q8H-IV [facility] PRN Reason: Protocol Insulin Aspart (Novolog Vial Sliding Scale -) 1 vial SQ ACHS [facility] PRN Reason: Protocol Insulin Detemir (Levemir Vial) 18 units SQ HS [facility] Magnesium Oxide (Mag-Ox -) 400 mg GT BID [facility] Miscellaneous (Duragesic Patch Waste) 1 each TD PRN PRN PRN Reason: PAIN Morphine Sulfate (Morphine Injection -) 2 mg IVPUSH Q4H PRN PRN Reason: PAIN Ofloxacin (Ocuflox 0.3% Eye Drops -) 1 drop OD Q4HWA [facility] Potassium Chloride (Potassium Chloride Oral Liquid) 40 meq GT BID [facility] Prednisolone Acetate (Pred Forte 1% -) 1 drop OD BID [facility] Ranitidine HCl (Zantac Oral Solution -) 150 mg PO BID [facility] - Objective Vital Signs: Vital Signs Temperature 99.6 F 09/15/16 13:59 Pulse Rate 79 09/15/16 16:00 Respiratory Rate 13 09/15/16 18:44 Blood Pressure 102/47 09/15/16 16:00 O2 Sat by Pulse Oximetry (%) 100 09/15/16 18:00 Constitutional: Yes: Mild Distress Eyes: Yes: WNL HENT: Yes: WNL Neck: Yes: WNL Cardiovascular: Yes: WNL Respiratory: Yes: Mechanically Ventilated Gastrointestinal: Yes: Normal Bowel Sounds Genitourinary: Yes: WNL Musculoskeletal: Yes: WNL Edema: No Neurological: Yes: Alert Labs: CBC, BMP 09/15/16 05:05 09/15/16 05:05 INR, PTT INR 1.14 (0.82-1.09) 09/07/16 22:45 Fibrinogen > 700.0 mg/dL (238-498) H 07/31/16 05:40 Assessment/Plan Continue same trt
[2016-09-15] MEDS ORDERED: INSULIN (NOVOLOG) ASPART 100 UNITS/ML 10ML VIAL ONE (20:38)
[2016-09-15] MEDS ORDERED: CHLORHEXIDINE GLUCONATE 0.12% 15ML CUP MM SCH (22:00)
[2016-09-15] MEDS: INSULIN DETEMIR 100 UNITS/ML MDV SQ SCH ×2 (23:04→23:53)
[2016-09-16] MEDS: CEFTAZIDIME PENTAHYDRATE 1 GM in DEXTROSE 5%-WATER - 50 ML IVPB SCH ×3 (03:00→18:42)
[2016-09-16] MEDS: OFLOXACIN 0.3% OPHTHALMIC SOLUTION 5 ML BOTTLE OD SCH ×5 (06:57→22:27)
[2016-09-16] MEDS: INSULIN SLIDING SCALE (NOVOLOG) 1 VIAL SQ SCH ×3 (06:57→18:43)
[2016-09-16 07:10] LABS: BASOPHIL 0.6 % (0-2.0); EOSINOPHIL 1.3 % (0-4.5); MEAN CELL VOLUME 85.1 fl (80-96); MEAN PLT VOLUME 8.4 fl (7.5-11.1); NEUTROPHILS 53.9 % (42.8-82.8); PLATELET COUNT 393 K/MM3 (134-434); RDW 16.6 % (11.6-15.6); WHITE BLOOD COUNT 11.6 K/mm3 (4.0-10.0)
[2016-09-16 07:48] LABS: ALBUMIN 1.9 g/dl (3.4-5.0); ANION GAP 5 (8-16); BILIRUBIN,TOTAL 0.3 mg/dL (0.2-1.0); CALCIUM 10.2 mg/dL (8.5-10.1); CO2 33 mmol/L (21-32); CREATININE 0.3 mg/dL (0.55-1.02); GLUCOSE,RANDOM 126 mg/dL (74-106); SGOT/AST 18 U/L (15-37); SGPT/ALT 15 U/L (12-78); TOT PROT 6.6 g/dl (6.4-8.2)
[2016-09-16 07:49] LABS: ALK PHOS 114 U/L (45-117)
[2016-09-16] MEDS ORDERED: PT OWN MED DRAWER 7, Y5N ONE ×3 (08:51→20:55)
--- NOTE | 2016-09-16 09:36 | PN ---
Progress Note, Physician Chief Complaint: GT tube not working History of Present Illness: on respirator - Current Medication List Current Medications: Active Medications Acetaminophen (Tylenol Oral Solution -) 650 mg PO Q6H PRN PRN Reason: FEVER OR PAIN Dextrose (D50w (Vial) -) 50 gm IVPUSH Q15M PRN PRN Reason: BLOOD SUGAR < 60 Enoxaparin Sodium (Lovenox -) 40 mg SQ BID [facility] Last Admin: 09/15/16 23:06 Dose: 40 mg Fentanyl (Duragesic 25mcg Patch -) 1 patch TD Q72H [facility] Stop: 09/18/16 13:17 Furosemide (Lasix -) 20 mg GT DAILY [facility] Ceftazidime 1 gm/ Dextrose 50 mls @ 100 mls/hr IVPB Q8H-IV [facility] PRN Reason: Protocol Last Admin: 09/16/16 03:00 Dose: 100 mls/hr Insulin Aspart (Novolog Vial Sliding Scale -) 1 vial SQ ACHS [facility] PRN Reason: Protocol Last Admin: 09/16/16 06:57 Dose: Not Given Insulin Detemir (Levemir Vial) 18 units SQ HS [facility] Last Admin: 09/15/16 23:53 Dose: Not Given Magnesium Oxide (Mag-Ox -) 400 mg GT BID [facility] Last Admin: 09/15/16 23:53 Dose: Not Given Miscellaneous (Duragesic Patch Waste) 1 each TD PRN PRN PRN Reason: PAIN Morphine Sulfate (Morphine Injection -) 2 mg IVPUSH Q4H PRN PRN Reason: PAIN Ofloxacin (Ocuflox 0.3% Eye Drops -) 1 drop OD Q4HWA [facility] Last Admin: 09/16/16 06:57 Dose: 1 drop Potassium Chloride (Potassium Chloride Oral Liquid) 40 meq GT BID [facility] Last Admin: 09/15/16 23:53 Dose: Not Given Prednisolone Acetate (Pred Forte 1% -) 1 drop OD BID [facility] Last Admin: 09/15/16 23:25 Dose: 1 drp Ranitidine HCl (Zantac Oral Solution -) 150 mg PO BID [facility] Last Admin: 09/15/16 23:53 Dose: Not Given - Objective Vital Signs: Vital Signs Temperature 99.2 F 09/16/16 06:00 Pulse Rate 100 H 09/16/16 06:00 Respiratory Rate 19 09/16/16 06:19 Blood Pressure 130/62 09/16/16 06:00 O2 Sat by Pulse Oximetry (%) 100 09/15/16 18:00 Constitutional: Yes: No Distress Eyes: Yes: WNL HENT: Yes: WNL Neck: Yes: Trachea Midline Cardiovascular: Yes: WNL Respiratory: Yes: Mechanically Ventilated Gastrointestinal: Yes: Normal Bowel Sounds ...Rectal Exam: Yes: Deferred Genitourinary: Yes: WNL Labs: CBC, BMP 09/16/16 06:25 09/16/16 06:25 INR, PTT INR 1.14 (0.82-1.09) 09/07/16 22:45 Fibrinogen > 700.0 mg/dL (238-498) H 07/31/16 05:40 Assessment/Plan GT tube working Resume feeding
[2016-09-16] MEDS: POTASSIUM CHLORIDE ORAL LIQUID 20 MEQ/15 ML GT SCH ×2 (09:57→22:28)
[2016-09-16] MEDS: MAGNESIUM OXIDE 400 MG TABLET (FP) GT SCH ×2 (09:57→22:27)
[2016-09-16] MEDS: FUROSEMIDE 20 MG TABLET (FP) GT SCH (09:57)
[2016-09-16] MEDS: RANITIDINE HCL 150 MG/10 ML UNIT-DOSE CUP PO SCH ×2 (09:57→22:29)
[2016-09-16] MEDS: morphine CARPU-JECT 2 MG/1 ML DISP.SYRIN IVPUSH PRN (11:45)
[2016-09-16] MEDS: ENOXAPARIN NA (PORCINE) 40 MG/0.4 ML DISP.SYRIN SQ SCH ×2 (11:47→22:26)
[2016-09-16] MEDS: ACETAMINOPHEN 650 MG/20.3 ML ORAL SOLUTION (CUPS) PO PRN (11:47)
--- NOTE | 2016-09-16 11:47 | PN ---
Progress Note, Physician History of Present Illness: PULMONARY POORLY RESPONSIVE ON VENT SUPPORT,AC MODE -RESP DISTRESS - Current Medication List Current Medications: Active Medications Acetaminophen (Tylenol Oral Solution -) 650 mg PO Q6H PRN PRN Reason: FEVER OR PAIN Dextrose (D50w (Vial) -) 50 gm IVPUSH Q15M PRN PRN Reason: BLOOD SUGAR < 60 Enoxaparin Sodium (Lovenox -) 40 mg SQ BID [facility] Last Admin: 09/15/16 23:06 Dose: 40 mg Fentanyl (Duragesic 25mcg Patch -) 1 patch TD Q72H [facility] Stop: 09/18/16 13:17 Furosemide (Lasix -) 20 mg GT DAILY [facility] Last Admin: 09/16/16 09:57 Dose: 20 mg Ceftazidime 1 gm/ Dextrose 50 mls @ 100 mls/hr IVPB Q8H-IV [facility] PRN Reason: Protocol Last Admin: 09/16/16 03:00 Dose: 100 mls/hr Insulin Aspart (Novolog Vial Sliding Scale -) 1 vial SQ ACHS [facility] PRN Reason: Protocol Last Admin: 09/16/16 06:57 Dose: Not Given Insulin Detemir (Levemir Vial) 18 units SQ HS [facility] Last Admin: 09/15/16 23:53 Dose: Not Given Magnesium Oxide (Mag-Ox -) 400 mg GT BID [facility] Last Admin: 09/16/16 09:57 Dose: 400 mg Miscellaneous (Duragesic Patch Waste) 1 each TD PRN PRN PRN Reason: PAIN Morphine Sulfate (Morphine Injection -) 2 mg IVPUSH Q4H PRN PRN Reason: PAIN Ofloxacin (Ocuflox 0.3% Eye Drops -) 1 drop OD Q4HWA [facility] Last Admin: 09/16/16 06:57 Dose: 1 drop Potassium Chloride (Potassium Chloride Oral Liquid) 40 meq GT BID [facility] Last Admin: 09/16/16 09:57 Dose: 40 meq Prednisolone Acetate (Pred Forte 1% -) 1 drop OD BID [facility] Last Admin: 09/15/16 23:25 Dose: 1 drp Ranitidine HCl (Zantac Oral Solution -) 150 mg PO BID [facility] Last Admin: 09/16/16 09:57 Dose: 150 mg - Objective Vital Signs: Vital Signs Temperature 99.2 F 09/16/16 06:00 Pulse Rate 100 H 09/16/16 06:00 Respiratory Rate 16 09/16/16 09:30 Blood Pressure 130/62 09/16/16 06:00 O2 Sat by Pulse Oximetry (%) 100 09/15/16 18:00 Constitutional: Yes: Calm, Thin Eyes: Yes: WNL HENT: Yes: WNL Neck: Yes: Supple (TRACH) Cardiovascular: Yes: Regular Rate and Rhythm, S1, S2 Respiratory: Yes: Rhonchi (FEW SCATTERED RHONCHI) Gastrointestinal: Yes: Normal Bowel Sounds, Soft Extremities: Yes: Cool, Other (GANGRENE HANDS AND FEET) Labs: CBC, BMP 09/16/16 06:25 09/16/16 06:25 INR, PTT INR 1.14 (0.82-1.09) 09/07/16 22:45 Fibrinogen > 700.0 mg/dL (238-498) H 07/31/16 05:40 Problem List - Problems (1) ZAHIRA (acute kidney injury) Code(s): N17.9 - ACUTE KIDNEY FAILURE, UNSPECIFIED (2) Acute metabolic encephalopathy Code(s): G93.41 - METABOLIC ENCEPHALOPATHY (3) Ischemia of extremity Code(s): I99.8 - OTHER DISORDER OF CIRCULATORY SYSTEM (4) Metabolic acidemia Code(s): E87.2 - ACIDOSIS (5) Perforated abdominal viscus Code(s): GSU6238 - (6) Sepsis Code(s): A41.9 - SEPSIS, UNSPECIFIED ORGANISM (7) Acute respiratory failure Code(s): J96.00 - ACUTE RESPIRATORY FAILURE, UNSP W HYPOXIA OR HYPERCAPNIA Assessment/Plan ASSESSMENT AND PLAN: Perforated Duodenal Ulcer Peritonitis s/p ex-lap/omental patch repair 07/16 Enterocutaneous Fistula Acute Respiratory Failure s/p Tracheostomy s/p Septic Shock DM DVT Gangrene s/p PEA Cardiac Arrest - antibiotics per ID - taper Fio2 to keep Spo2 >90% - continue anticoagulation - morphine for comfort - enteral feeds as tolerated - volume assist control, poor candidate for weaning - DVT/GI prophylaxis - recommend palliative due to failure to wean, anticipated amputations, poor quality of life DR OSEI
[2016-09-16] MEDS: prednisoLONE ACETATE 1% OPHTH SUSP 5 ML BOTTLE OD SCH ×2 (13:02→22:28)
--- NOTE | 2016-09-16 15:20 | PN ---
Progress Note, Physician History of Present Illness: no big changes poorly responsive - Current Medication List Current Medications: Active Medications Acetaminophen (Tylenol Oral Solution -) 650 mg PO Q6H PRN PRN Reason: FEVER OR PAIN Last Admin: 09/16/16 11:47 Dose: 650 mg Dextrose (D50w (Vial) -) 50 gm IVPUSH Q15M PRN PRN Reason: BLOOD SUGAR < 60 Enoxaparin Sodium (Lovenox -) 40 mg SQ BID [facility] Last Admin: 09/16/16 11:47 Dose: 40 mg Fentanyl (Duragesic 25mcg Patch -) 1 patch TD Q72H [facility] Stop: 09/18/16 13:17 Furosemide (Lasix -) 20 mg GT DAILY [facility] Last Admin: 09/16/16 09:57 Dose: 20 mg IV Flush (Triple Lumen Flush) 4 ml IVPUSH PRN PRN PRN Reason: Protocol Ceftazidime 1 gm/ Dextrose 50 mls @ 100 mls/hr IVPB Q8H-IV [facility] PRN Reason: Protocol Last Admin: 09/16/16 13:01 Dose: 100 mls/hr Insulin Aspart (Novolog Vial Sliding Scale -) 1 vial SQ BIDAC [facility] PRN Reason: Protocol Insulin Detemir (Levemir Vial) 18 units SQ HS [facility] Last Admin: 09/15/16 23:53 Dose: Not Given Magnesium Oxide (Mag-Ox -) 400 mg GT BID [facility] Last Admin: 09/16/16 09:57 Dose: 400 mg Miscellaneous (Duragesic Patch Waste) 1 each TD PRN PRN PRN Reason: PAIN Morphine Sulfate (Morphine Injection -) 2 mg IVPUSH Q4H PRN PRN Reason: PAIN Last Admin: 09/16/16 11:45 Dose: 2 mg Ofloxacin (Ocuflox 0.3% Eye Drops -) 1 drop OD Q4HWA [facility] Last Admin: 09/16/16 13:01 Dose: 1 drop Potassium Chloride (Potassium Chloride Oral Liquid) 40 meq GT BID [facility] Last Admin: 09/16/16 09:57 Dose: 40 meq Prednisolone Acetate (Pred Forte 1% -) 1 drop OD BID [facility] Last Admin: 09/16/16 13:02 Dose: 1 drp Ranitidine HCl (Zantac Oral Solution -) 150 mg PO BID [facility] Last Admin: 09/16/16 09:57 Dose: 150 mg - Objective Vital Signs: Vital Signs Temperature 99.7 F H 09/16/16 10:00 Pulse Rate 90 09/16/16 10:00 Respiratory Rate 19 09/16/16 14:17 Blood Pressure 119/72 09/16/16 10:00 O2 Sat by Pulse Oximetry (%) 100 09/15/16 18:00 Constitutional: Yes: Other Cardiovascular: Yes: Regular Rate and Rhythm Respiratory: Yes: Mechanically Ventilated, Other Gastrointestinal: Yes: Normal Bowel Sounds, Soft, Other (peg in place) Musculoskeletal: Yes: Other Extremities: Yes: Other (gangrene) Neurological: Yes: Other (opens eyes) Labs: CBC, BMP 09/16/16 06:25 09/16/16 06:25 INR, PTT INR 1.14 (0.82-1.09) 09/07/16 22:45 Fibrinogen > 700.0 mg/dL (238-498) H 07/31/16 05:40 Assessment/Plan Problem List - Problems (1) Abdominal pain Code(s): R10.9 - UNSPECIFIED ABDOMINAL PAIN Qualifiers: Qualified Code(s): R10.33 - Periumbilical pain (2) Perforated abdominal viscus Code(s): [id number] - (3) Perforated viscus Code(s): R19.8 - OTH SYMPTOMS AND SIGNS INVOLVING THE DGSTV SYS AND ABDOMEN (4) Hypertension Code(s): I10 - ESSENTIAL (PRIMARY) HYPERTENSION Qualifiers: Qualified Code(s): I10 - Essential (primary) hypertension lactic acidosis fevers generalized swelling gangrene of the tip of the fingers noted pseudomonas pneumonia patient having loose stools plan we will continue monitoring will stop abx on the we will watch after that rest ct as per primary
--- NOTE | 2016-09-16 17:55 | PN ---
Progress Note (short form) - Note Progress Note: VAscular Surgery Pt seen and examined. Stage 4 sacral ulcer with slough. offload area. Santyl to area daily If does not get better might need debridement. Jeff Leon DO
[2016-09-16] MEDS ORDERED: INSULIN (NOVOLOG) ASPART 100 UNITS/ML 10ML VIAL ONE (18:39)
[2016-09-16] MEDS: INSULIN DETEMIR 100 UNITS/ML MDV SQ SCH (22:25)
[2016-09-16] MEDS: COLLAGENASE CLOSTRIDIUM HIST. 30 GRAMS TUBE TP SCH (22:32)
[2016-09-17] MEDS: CEFTAZIDIME PENTAHYDRATE 1 GM in DEXTROSE 5%-WATER - 50 ML IVPB SCH ×3 (03:00→18:20)
[2016-09-17] MEDS ORDERED: PT OWN MED DRAWER 7, Y5N ONE ×3 (03:31→20:10)
[2016-09-17] MEDS ORDERED: INSULIN (NOVOLOG) ASPART 100 UNITS/ML 10ML VIAL ONE (06:19)
[2016-09-17] MEDS: OFLOXACIN 0.3% OPHTHALMIC SOLUTION 5 ML BOTTLE OD SCH ×5 (06:39→22:49)
[2016-09-17] MEDS: INSULIN SLIDING SCALE (NOVOLOG) 1 VIAL SQ SCH ×2 (06:39→18:38)
[2016-09-17] MEDS: POTASSIUM CHLORIDE ORAL LIQUID 20 MEQ/15 ML GT SCH ×2 (12:07→22:50)
[2016-09-17] MEDS: ENOXAPARIN NA (PORCINE) 40 MG/0.4 ML DISP.SYRIN SQ SCH ×2 (12:08→22:47)
[2016-09-17] MEDS: FUROSEMIDE 20 MG TABLET (FP) GT SCH (12:08)
[2016-09-17] MEDS: MAGNESIUM OXIDE 400 MG TABLET (FP) GT SCH ×2 (12:09→22:48)
[2016-09-17] MEDS: prednisoLONE ACETATE 1% OPHTH SUSP 5 ML BOTTLE OD SCH ×2 (12:10→22:50)
[2016-09-17] MEDS: RANITIDINE HCL 150 MG/10 ML UNIT-DOSE CUP PO SCH ×2 (12:13→22:50)
[2016-09-17] MEDS: COLLAGENASE CLOSTRIDIUM HIST. 30 GRAMS TUBE TP SCH (12:14)
[2016-09-17] MEDS: TRIPLE LUMEN FLUSH 4 ML ML IVPUSH PRN ×2 (12:30→18:27)
--- NOTE | 2016-09-17 12:48 | PN ---
Progress Note, Physician History of Present Illness: pulmonary awake on vent support ac mode - Current Medication List Current Medications: Active Medications Acetaminophen (Tylenol Oral Solution -) 650 mg PO Q6H PRN PRN Reason: FEVER OR PAIN Last Admin: 09/16/16 11:47 Dose: 650 mg Collagenase (Santyl -) 1 applic TP DAILY [facility] Last Admin: 09/17/16 12:14 Dose: 1 applic Dextrose (D50w (Vial) -) 50 gm IVPUSH Q15M PRN PRN Reason: BLOOD SUGAR < 60 Enoxaparin Sodium (Lovenox -) 40 mg SQ BID [facility] Last Admin: 09/17/16 12:08 Dose: 40 mg Fentanyl (Duragesic 25mcg Patch -) 1 patch TD Q72H [facility] Stop: 09/18/16 13:17 Furosemide (Lasix -) 20 mg GT DAILY [facility] Last Admin: 09/17/16 12:08 Dose: 20 mg IV Flush (Triple Lumen Flush) 4 ml IVPUSH PRN PRN PRN Reason: Protocol Last Admin: 09/17/16 12:30 Dose: 4 ml Ceftazidime 1 gm/ Dextrose 50 mls @ 100 mls/hr IVPB Q8H-IV [facility] PRN Reason: Protocol Last Admin: 09/17/16 12:07 Dose: 100 mls/hr Insulin Aspart (Novolog Vial Sliding Scale -) 1 vial SQ BIDAC [facility] PRN Reason: Protocol Last Admin: 09/17/16 06:39 Dose: Not Given Insulin Detemir (Levemir Vial) 18 units SQ HS [facility] Last Admin: 09/16/16 22:25 Dose: 18 units Magnesium Oxide (Mag-Ox -) 400 mg GT BID [facility] Last Admin: 09/17/16 12:09 Dose: 400 mg Miscellaneous (Duragesic Patch Waste) 1 each TD PRN PRN PRN Reason: PAIN Morphine Sulfate (Morphine Injection -) 2 mg IVPUSH Q4H PRN PRN Reason: PAIN Last Admin: 09/16/16 11:45 Dose: 2 mg Ofloxacin (Ocuflox 0.3% Eye Drops -) 1 drop OD Q4HWA [facility] Last Admin: 09/17/16 12:09 Dose: 1 drop Potassium Chloride (Potassium Chloride Oral Liquid) 40 meq GT BID [facility] Last Admin: 09/17/16 12:07 Dose: 40 meq Prednisolone Acetate (Pred Forte 1% -) 1 drop OD BID [facility] Last Admin: 09/17/16 12:10 Dose: 1 drp Ranitidine HCl (Zantac Oral Solution -) 150 mg PO BID [facility] Last Admin: 09/17/16 12:13 Dose: 150 mg - Objective Vital Signs: Vital Signs Temperature 98.8 F 09/17/16 10:00 Pulse Rate 96 H 09/17/16 10:00 Respiratory Rate 16 09/17/16 10:00 Blood Pressure 129/62 09/17/16 10:00 O2 Sat by Pulse Oximetry (%) 100 09/15/16 18:00 Constitutional: Yes: Calm, Thin Eyes: Yes: WNL HENT: Yes: WNL Neck: Yes: Supple (trach) Cardiovascular: Yes: Regular Rate and Rhythm, S1, S2 Respiratory: Yes: Rhonchi (scattered elia rhonchi) Gastrointestinal: Yes: Normal Bowel Sounds, Soft Extremities: Yes: Other (gangrene hands and feet) Problem List - Problems (1) ZAHIRA (acute kidney injury) Code(s): N17.9 - ACUTE KIDNEY FAILURE, UNSPECIFIED (2) Acute metabolic encephalopathy Code(s): G93.41 - METABOLIC ENCEPHALOPATHY (3) Ischemia of extremity Code(s): I99.8 - OTHER DISORDER OF CIRCULATORY SYSTEM (4) Metabolic acidemia Code(s): E87.2 - ACIDOSIS (5) Perforated abdominal viscus Code(s): [id number] - (6) Sepsis Code(s): A41.9 - SEPSIS, UNSPECIFIED ORGANISM (7) Acute respiratory failure Code(s): J96.00 - ACUTE RESPIRATORY FAILURE, UNSP W HYPOXIA OR HYPERCAPNIA Assessment/Plan ASSESSMENT AND PLAN: Perforated Duodenal Ulcer Peritonitis s/p ex-lap/omental patch repair 07/16 Enterocutaneous Fistula Acute Respiratory Failure s/p Tracheostomy s/p Septic Shock DM DVT Gangrene s/p PEA Cardiac Arrest - antibiotics per ID - taper Fio2 to keep Spo2 >90% - continue anticoagulation - morphine for comfort - enteral feeds as tolerated - volume assist control, poor candidate for weaning - DVT/GI prophylaxis - recommend palliative due to failure to wean, anticipated amputations, poor quality of life DR OSEI
[2016-09-17] MEDS ORDERED: fentaNYL 25mcg/hr PATCH.TD72 TD SCH (13:30)
--- NOTE | 2016-09-17 14:06 | PN ---
Progress Note, Physician History of Present Illness: continues to be status quo no new issues patients g tube is leaking - Current Medication List Current Medications: Active Medications Acetaminophen (Tylenol Oral Solution -) 650 mg PO Q6H PRN PRN Reason: FEVER OR PAIN Last Admin: 09/16/16 11:47 Dose: 650 mg Collagenase (Santyl -) 1 applic TP DAILY [facility] Last Admin: 09/17/16 12:14 Dose: 1 applic Dextrose (D50w (Vial) -) 50 gm IVPUSH Q15M PRN PRN Reason: BLOOD SUGAR < 60 Enoxaparin Sodium (Lovenox -) 40 mg SQ BID [facility] Last Admin: 09/17/16 12:08 Dose: 40 mg Fentanyl (Duragesic 25mcg Patch -) 1 patch TD Q72H [facility] Stop: 09/18/16 13:17 Furosemide (Lasix -) 20 mg GT DAILY [facility] Last Admin: 09/17/16 12:08 Dose: 20 mg IV Flush (Triple Lumen Flush) 4 ml IVPUSH PRN PRN PRN Reason: Protocol Last Admin: 09/17/16 12:30 Dose: 4 ml Ceftazidime 1 gm/ Dextrose 50 mls @ 100 mls/hr IVPB Q8H-IV [facility] PRN Reason: Protocol Last Admin: 09/17/16 12:07 Dose: 100 mls/hr Insulin Aspart (Novolog Vial Sliding Scale -) 1 vial SQ BIDAC [facility] PRN Reason: Protocol Last Admin: 09/17/16 06:39 Dose: Not Given Insulin Detemir (Levemir Vial) 18 units SQ HS [facility] Last Admin: 09/16/16 22:25 Dose: 18 units Magnesium Oxide (Mag-Ox -) 400 mg GT BID [facility] Last Admin: 09/17/16 12:09 Dose: 400 mg Miscellaneous (Duragesic Patch Waste) 1 each TD PRN PRN PRN Reason: PAIN Morphine Sulfate (Morphine Injection -) 2 mg IVPUSH Q4H PRN PRN Reason: PAIN Last Admin: 09/16/16 11:45 Dose: 2 mg Ofloxacin (Ocuflox 0.3% Eye Drops -) 1 drop OD Q4HWA [facility] Last Admin: 09/17/16 12:09 Dose: 1 drop Potassium Chloride (Potassium Chloride Oral Liquid) 40 meq GT BID [facility] Last Admin: 09/17/16 12:07 Dose: 40 meq Prednisolone Acetate (Pred Forte 1% -) 1 drop OD BID [facility] Last Admin: 09/17/16 12:10 Dose: 1 drp Ranitidine HCl (Zantac Oral Solution -) 150 mg PO BID [facility] Last Admin: 09/17/16 12:13 Dose: 150 mg - Objective Vital Signs: Vital Signs Temperature 98.8 F 09/17/16 10:00 Pulse Rate 96 H 09/17/16 10:00 Respiratory Rate 16 09/17/16 10:00 Blood Pressure 129/62 09/17/16 10:00 O2 Sat by Pulse Oximetry (%) 100 09/15/16 18:00 Constitutional: Yes: Calm, Other Cardiovascular: Yes: Regular Rate and Rhythm Respiratory: Yes: Mechanically Ventilated, Poor Air Entry Gastrointestinal: Yes: Normal Bowel Sounds, Soft, Other (peg tube in place) Musculoskeletal: Yes: Other Neurological: Yes: Alert Psychiatric: Yes: Alert Labs: CBC, BMP 09/16/16 06:25 09/16/16 06:25 INR, PTT INR 1.14 (0.82-1.09) 09/07/16 22:45 Fibrinogen > 700.0 mg/dL (238-498) H 07/31/16 05:40 Assessment/Plan Problem List - Problems (1) Abdominal pain Code(s): R10.9 - UNSPECIFIED ABDOMINAL PAIN Qualifiers: Qualified Code(s): R10.33 - Periumbilical pain (2) Perforated abdominal viscus Code(s): [id number] - (3) Perforated viscus Code(s): R19.8 - OTH SYMPTOMS AND SIGNS INVOLVING THE DGSTV SYS AND ABDOMEN (4) Hypertension Code(s): I10 - ESSENTIAL (PRIMARY) HYPERTENSION Qualifiers: Qualified Code(s): I10 - Essential (primary) hypertension lactic acidosis fevers generalized swelling gangrene of the tip of the fingers noted pseudomonas pneumonia patient having loose stools plan continue abx as planned hold the tube feeding will get gastrograffin studies to see where the leak is from rest as per primary
[2016-09-17] MEDS: morphine CARPU-JECT 2 MG/1 ML DISP.SYRIN IVPUSH PRN (18:24)
[2016-09-17] MEDS: INSULIN DETEMIR 100 UNITS/ML MDV SQ SCH (22:46)
[2016-09-18] MEDS ORDERED: PT OWN MED DRAWER 7, Y5N ONE ×3 (01:40→16:58)
[2016-09-18] MEDS: CEFTAZIDIME PENTAHYDRATE 1 GM in DEXTROSE 5%-WATER - 50 ML IVPB SCH ×3 (01:43→17:25)
[2016-09-18] MEDS: OFLOXACIN 0.3% OPHTHALMIC SOLUTION 5 ML BOTTLE OD SCH ×5 (06:19→21:27)
[2016-09-18] MEDS: INSULIN SLIDING SCALE (NOVOLOG) 1 VIAL SQ SCH ×2 (06:25→17:37)
--- NOTE | 2016-09-18 08:57 | PN ---
Progress Note, Physician Chief Complaint: On respirator History of Present Illness: Start wean from respirator - Current Medication List Current Medications: Active Medications Acetaminophen (Tylenol Oral Solution -) 650 mg PO Q6H PRN PRN Reason: FEVER OR PAIN Last Admin: 09/16/16 11:47 Dose: 650 mg Collagenase (Santyl -) 1 applic TP DAILY [facility] Last Admin: 09/17/16 12:14 Dose: 1 applic Dextrose (D50w (Vial) -) 50 gm IVPUSH Q15M PRN PRN Reason: BLOOD SUGAR < 60 Enoxaparin Sodium (Lovenox -) 40 mg SQ BID [facility] Last Admin: 09/17/16 22:47 Dose: 40 mg Fentanyl (Duragesic 25mcg Patch -) 1 patch TD Q72H [facility] Stop: 09/18/16 13:17 Last Admin: 09/17/16 15:00 Dose: 1 patch Furosemide (Lasix -) 20 mg GT DAILY [facility] Last Admin: 09/17/16 12:08 Dose: 20 mg IV Flush (Triple Lumen Flush) 4 ml IVPUSH PRN PRN PRN Reason: Protocol Last Admin: 09/17/16 18:27 Dose: 4 ml Ceftazidime 1 gm/ Dextrose 50 mls @ 100 mls/hr IVPB Q8H-IV [facility] PRN Reason: Protocol Last Admin: 09/18/16 01:43 Dose: 100 mls/hr Insulin Aspart (Novolog Vial Sliding Scale -) 1 vial SQ BIDAC [facility] PRN Reason: Protocol Last Admin: 09/18/16 06:25 Dose: 2 units Insulin Detemir (Levemir Vial) 18 units SQ HS [facility] Last Admin: 09/17/16 22:46 Dose: 18 units Magnesium Oxide (Mag-Ox -) 400 mg GT BID [facility] Last Admin: 09/17/16 22:48 Dose: 400 mg Miscellaneous (Duragesic Patch Waste) 1 each TD PRN PRN PRN Reason: PAIN Morphine Sulfate (Morphine Injection -) 2 mg IVPUSH Q4H PRN PRN Reason: PAIN Last Admin: 09/17/16 18:24 Dose: 2 mg Ofloxacin (Ocuflox 0.3% Eye Drops -) 1 drop OD Q4HWA [facility] Last Admin: 09/18/16 06:19 Dose: 1 drop Potassium Chloride (Potassium Chloride Oral Liquid) 40 meq GT BID [facility] Last Admin: 09/17/16 22:50 Dose: 40 meq Prednisolone Acetate (Pred Forte 1% -) 1 drop OD BID [facility] Last Admin: 09/17/16 22:50 Dose: 1 drp Ranitidine HCl (Zantac Oral Solution -) 150 mg PO BID [facility] Last Admin: 09/17/16 22:50 Dose: 150 mg - Objective Vital Signs: Vital Signs Temperature 98.4 F 09/18/16 06:00 Pulse Rate 94 H 09/18/16 06:00 Respiratory Rate 16 09/18/16 06:12 Blood Pressure 134/65 09/18/16 06:00 O2 Sat by Pulse Oximetry (%) 100 09/15/16 18:00 Constitutional: Yes: No Distress Eyes: Yes: WNL HENT: Yes: WNL Neck: Yes: WNL Cardiovascular: Yes: Pulse Irregular Respiratory: Yes: Mechanically Ventilated Gastrointestinal: Yes: Normal Bowel Sounds ...Rectal Exam: Yes: Deferred Genitourinary: Yes: Bacon Present Breast(s): Yes: WNL Musculoskeletal: Yes: Muscle Weakness Psychiatric: Yes: Oriented Labs: CBC, BMP 09/16/16 06:25 09/16/16 06:25 INR, PTT INR 1.14 (0.82-1.09) 09/07/16 22:45 Fibrinogen > 700.0 mg/dL (238-498) H 07/31/16 05:40 Assessment/Plan Wean from respirator
[2016-09-18] MEDS: ENOXAPARIN NA (PORCINE) 40 MG/0.4 ML DISP.SYRIN SQ SCH ×2 (11:00→21:25)
[2016-09-18] MEDS: prednisoLONE ACETATE 1% OPHTH SUSP 5 ML BOTTLE OD SCH ×2 (11:01→23:37)
[2016-09-18] MEDS: FUROSEMIDE 20 MG TABLET (FP) GT SCH (11:02)
[2016-09-18] MEDS: RANITIDINE HCL 150 MG/10 ML UNIT-DOSE CUP PO SCH ×2 (11:02→21:29)
[2016-09-18] MEDS: POTASSIUM CHLORIDE ORAL LIQUID 20 MEQ/15 ML GT SCH ×2 (11:02→21:27)
[2016-09-18] MEDS: MAGNESIUM OXIDE 400 MG TABLET (FP) GT SCH ×2 (11:03→21:26)
[2016-09-18] MEDS: TRIPLE LUMEN FLUSH 4 ML ML IVPUSH PRN (11:20)
--- NOTE | 2016-09-18 12:07 | PN ---
Progress Note (short form) - Note Progress Note: PULMONARY On CPAP/PS 12/11. Remains poorly responsive. No fevers recorded. Last Vital Signs Temp Pulse Resp BP Pulse Ox 98.6 F 90 16 119/68 100 09/18/16 10:00 09/18/16 10:00 09/18/16 10:00 09/18/16 10:00 09/15/16 18:00 Gen: vented, poorly responsive Heart: tachycardic, regular Lung: bilateral rhonchi Abd: soft, nontender, +fistula drainage Ext: multiple ulcers, dry gangrene of bilateral feet, fingers CBC, BMP 09/16/16 06:25 09/16/16 06:25 Active Medications Acetaminophen (Tylenol Oral Solution -) 650 mg PO Q6H PRN PRN Reason: FEVER OR PAIN Last Admin: 09/16/16 11:47 Dose: 650 mg Collagenase (Santyl -) 1 applic TP DAILY [facility] Last Admin: 09/17/16 12:14 Dose: 1 applic Dextrose (D50w (Vial) -) 50 gm IVPUSH Q15M PRN PRN Reason: BLOOD SUGAR < 60 Enoxaparin Sodium (Lovenox -) 40 mg SQ BID [facility] Last Admin: 09/18/16 11:00 Dose: 40 mg Fentanyl (Duragesic 25mcg Patch -) 1 patch TD Q72H [facility] Stop: 09/18/16 13:17 Last Admin: 09/17/16 15:00 Dose: 1 patch Furosemide (Lasix -) 20 mg GT DAILY [facility] Last Admin: 09/18/16 11:02 Dose: 20 mg IV Flush (Triple Lumen Flush) 4 ml IVPUSH PRN PRN PRN Reason: Protocol Last Admin: 09/18/16 11:20 Dose: 4 ml Ceftazidime 1 gm/ Dextrose 50 mls @ 100 mls/hr IVPB Q8H-IV [facility] PRN Reason: Protocol Last Admin: 09/18/16 11:00 Dose: 100 mls/hr Insulin Aspart (Novolog Vial Sliding Scale -) 1 vial SQ BIDAC [facility] PRN Reason: Protocol Last Admin: 09/18/16 06:25 Dose: 2 units Insulin Detemir (Levemir Vial) 18 units SQ HS [facility] Last Admin: 09/17/16 22:46 Dose: 18 units Magnesium Oxide (Mag-Ox -) 400 mg GT BID [facility] Last Admin: 09/18/16 11:03 Dose: 400 mg Miscellaneous (Duragesic Patch Waste) 1 each TD PRN PRN PRN Reason: PAIN Morphine Sulfate (Morphine Injection -) 2 mg IVPUSH Q4H PRN PRN Reason: PAIN Last Admin: 09/17/16 18:24 Dose: 2 mg Ofloxacin (Ocuflox 0.3% Eye Drops -) 1 drop OD Q4HWA [facility] Last Admin: 09/18/16 11:03 Dose: 1 drop Potassium Chloride (Potassium Chloride Oral Liquid) 40 meq GT BID [facility] Last Admin: 09/18/16 11:02 Dose: 40 meq Prednisolone Acetate (Pred Forte 1% -) 1 drop OD BID [facility] Last Admin: 09/18/16 11:01 Dose: 1 drp Ranitidine HCl (Zantac Oral Solution -) 150 mg PO BID [facility] Last Admin: 09/18/16 11:02 Dose: 150 mg A/P Perforated Duodenal Ulcer Peritonitis s/p ex-lap/omental patch repair 07/16 Enterocutaneous Fistula Acute Respiratory Failure s/p Tracheostomy s/p Septic Shock DM DVT Gangrene s/p PEA Cardiac Arrest - antibiotics per ID - taper Fio2 to keep Spo2 >90% - continue anticoagulation - morphine for comfort - enteral feeds as tolerated - spontaneous breathing trials as tolerated - DVT/GI prophylaxis - prognosis is poor, continue discussions regarding advanced directives and goals of care - recommend palliative due to failure to wean, anticipated amputations, poor quality of life
[2016-09-18] MEDS: COLLAGENASE CLOSTRIDIUM HIST. 30 GRAMS TUBE TP SCH (14:13)
[2016-09-18] MEDS: morphine CARPU-JECT 2 MG/1 ML DISP.SYRIN IVPUSH PRN (15:36)
--- NOTE | 2016-09-18 16:54 | PN ---
Progress Note, Physician History of Present Illness: continues to be status quo no new issues tube continues to leak patient calm - Current Medication List Current Medications: Active Medications Acetaminophen (Tylenol Oral Solution -) 650 mg PO Q6H PRN PRN Reason: FEVER OR PAIN Last Admin: 09/16/16 11:47 Dose: 650 mg Collagenase (Santyl -) 1 applic TP DAILY [facility] Last Admin: 09/18/16 14:13 Dose: 1 applic Dextrose (D50w (Vial) -) 50 gm IVPUSH Q15M PRN PRN Reason: BLOOD SUGAR < 60 Enoxaparin Sodium (Lovenox -) 40 mg SQ BID [facility] Last Admin: 09/18/16 11:00 Dose: 40 mg Furosemide (Lasix -) 20 mg GT DAILY [facility] Last Admin: 09/18/16 11:02 Dose: 20 mg IV Flush (Triple Lumen Flush) 4 ml IVPUSH PRN PRN PRN Reason: Protocol Last Admin: 09/18/16 11:20 Dose: 4 ml Ceftazidime 1 gm/ Dextrose 50 mls @ 100 mls/hr IVPB Q8H-IV [facility] PRN Reason: Protocol Last Admin: 09/18/16 11:00 Dose: 100 mls/hr Insulin Aspart (Novolog Vial Sliding Scale -) 1 vial SQ BIDAC [facility] PRN Reason: Protocol Last Admin: 09/18/16 06:25 Dose: 2 units Insulin Detemir (Levemir Vial) 18 units SQ HS [facility] Last Admin: 09/17/16 22:46 Dose: 18 units Magnesium Oxide (Mag-Ox -) 400 mg GT BID [facility] Last Admin: 09/18/16 11:03 Dose: 400 mg Miscellaneous (Duragesic Patch Waste) 1 each TD PRN PRN PRN Reason: PAIN Morphine Sulfate (Morphine Injection -) 2 mg IVPUSH Q4H PRN PRN Reason: PAIN Last Admin: 09/18/16 15:36 Dose: 2 mg Ofloxacin (Ocuflox 0.3% Eye Drops -) 1 drop OD Q4HWA [facility] Last Admin: 09/18/16 14:12 Dose: 1 drop Potassium Chloride (Potassium Chloride Oral Liquid) 40 meq GT BID [facility] Last Admin: 09/18/16 11:02 Dose: 40 meq Prednisolone Acetate (Pred Forte 1% -) 1 drop OD BID [facility] Last Admin: 09/18/16 11:01 Dose: 1 drp Ranitidine HCl (Zantac Oral Solution -) 150 mg PO BID [facility] Last Admin: 09/18/16 11:02 Dose: 150 mg - Objective Vital Signs: Vital Signs Temperature 98.5 F 09/18/16 14:34 Pulse Rate 97 H 09/18/16 14:34 Respiratory Rate 18 09/18/16 14:34 Blood Pressure 108/61 09/18/16 14:34 O2 Sat by Pulse Oximetry (%) 100 09/15/16 18:00 Constitutional: Yes: No Distress, Calm Cardiovascular: Yes: Regular Rate and Rhythm Respiratory: Yes: Mechanically Ventilated, Other (trach in place) Gastrointestinal: Yes: Normal Bowel Sounds, Soft, Other (peg in place) Musculoskeletal: Yes: Other Extremities: Yes: Other Neurological: Yes: Alert, Other Labs: CBC, BMP 09/16/16 06:25 09/16/16 06:25 INR, PTT INR 1.14 (0.82-1.09) 09/07/16 22:45 Fibrinogen > 700.0 mg/dL (238-498) H 07/31/16 05:40 Assessment/Plan Problem List - Problems (1) Abdominal pain Code(s): R10.9 - UNSPECIFIED ABDOMINAL PAIN Qualifiers: Qualified Code(s): R10.33 - Periumbilical pain (2) Perforated abdominal viscus Code(s): [id number] - (3) Perforated viscus Code(s): R19.8 - OTH SYMPTOMS AND SIGNS INVOLVING THE DGSTV SYS AND ABDOMEN (4) Hypertension Code(s): I10 - ESSENTIAL (PRIMARY) HYPERTENSION Qualifiers: Qualified Code(s): I10 - Essential (primary) hypertension lactic acidosis fevers generalized swelling gangrene of the tip of the fingers noted pseudomonas pneumonia plan stable off of abx continue to monitor rest as per surgery nutrition consider increasing trach size as planned
[2016-09-18] MEDS: INSULIN DETEMIR 100 UNITS/ML MDV SQ SCH (21:24)
[2016-09-19] MEDS: CEFTAZIDIME PENTAHYDRATE 1 GM in DEXTROSE 5%-WATER - 50 ML IVPB SCH ×2 (01:50→09:18)
[2016-09-19] MEDS: TRIPLE LUMEN FLUSH 4 ML ML IVPUSH PRN ×3 (06:39→17:03)
[2016-09-19] MEDS: INSULIN SLIDING SCALE (NOVOLOG) 1 VIAL SQ SCH ×2 (06:39→17:07)
[2016-09-19] MEDS: OFLOXACIN 0.3% OPHTHALMIC SOLUTION 5 ML BOTTLE OD SCH ×5 (06:39→21:12)
[2016-09-19] MEDS ORDERED: PT OWN MED DRAWER 7, Y5N ONE ×2 (09:09→18:41)
[2016-09-19] MEDS: FUROSEMIDE 20 MG TABLET (FP) GT SCH (09:17)
[2016-09-19] MEDS: MAGNESIUM OXIDE 400 MG TABLET (FP) GT SCH ×2 (09:17→21:12)
[2016-09-19] MEDS: POTASSIUM CHLORIDE ORAL LIQUID 20 MEQ/15 ML GT SCH ×2 (09:17→21:12)
[2016-09-19] MEDS: RANITIDINE HCL 150 MG/10 ML UNIT-DOSE CUP PO SCH ×2 (09:17→21:15)
[2016-09-19] MEDS: ENOXAPARIN NA (PORCINE) 40 MG/0.4 ML DISP.SYRIN SQ SCH ×2 (09:17→21:11)
[2016-09-19] MEDS: prednisoLONE ACETATE 1% OPHTH SUSP 5 ML BOTTLE OD SCH ×2 (09:19→21:13)
[2016-09-19] MEDS: COLLAGENASE CLOSTRIDIUM HIST. 30 GRAMS TUBE TP SCH (09:20)
--- NOTE | 2016-09-19 09:29 | PN ---
Progress Note, Physician Chief Complaint: Feels OK History of Present Illness: On CPAP well tolerated - Current Medication List Current Medications: Active Medications Acetaminophen (Tylenol Oral Solution -) 650 mg PO Q6H PRN PRN Reason: FEVER OR PAIN Last Admin: 09/16/16 11:47 Dose: 650 mg Collagenase (Santyl -) 1 applic TP DAILY [facility] Last Admin: 09/19/16 09:20 Dose: 1 applic Dextrose (D50w (Vial) -) 50 gm IVPUSH Q15M PRN PRN Reason: BLOOD SUGAR < 60 Enoxaparin Sodium (Lovenox -) 40 mg SQ BID [facility] Last Admin: 09/19/16 09:17 Dose: 40 mg Furosemide (Lasix -) 20 mg GT DAILY [facility] Last Admin: 09/19/16 09:17 Dose: 20 mg IV Flush (Triple Lumen Flush) 4 ml IVPUSH PRN PRN PRN Reason: Protocol Last Admin: 09/19/16 06:39 Dose: 4 ml Ceftazidime 1 gm/ Dextrose 50 mls @ 100 mls/hr IVPB Q8H-IV [facility] PRN Reason: Protocol Last Admin: 09/19/16 09:18 Dose: 100 mls/hr Insulin Aspart (Novolog Vial Sliding Scale -) 1 vial SQ BIDAC [facility] PRN Reason: Protocol Last Admin: 09/19/16 06:39 Dose: Not Given Insulin Detemir (Levemir Vial) 18 units SQ HS [facility] Last Admin: 09/18/16 21:24 Dose: 18 units Magnesium Oxide (Mag-Ox -) 400 mg GT BID [facility] Last Admin: 09/19/16 09:17 Dose: 400 mg Miscellaneous (Duragesic Patch Waste) 1 each TD PRN PRN PRN Reason: PAIN Ofloxacin (Ocuflox 0.3% Eye Drops -) 1 drop OD Q4HWA [facility] Last Admin: 09/19/16 09:18 Dose: 1 drop Potassium Chloride (Potassium Chloride Oral Liquid) 40 meq GT BID [facility] Last Admin: 09/19/16 09:17 Dose: 40 meq Prednisolone Acetate (Pred Forte 1% -) 1 drop OD BID [facility] Last Admin: 09/19/16 09:19 Dose: 1 drp Ranitidine HCl (Zantac Oral Solution -) 150 mg PO BID [facility] Last Admin: 07/14/17 09:17 Dose: 150 mg - Objective Vital Signs: Vital Signs Temperature 99.4 F 09/19/16 06:00 Pulse Rate 94 H 09/19/16 06:00 Respiratory Rate 19 09/19/16 06:28 Blood Pressure 108/68 09/19/16 06:00 O2 Sat by Pulse Oximetry (%) 100 09/15/16 18:00 Constitutional: Yes: No Distress Eyes: Yes: WNL HENT: Yes: WNL Neck: Yes: WNL Cardiovascular: Yes: WNL Respiratory: Yes: WNL, Mechanically Ventilated Gastrointestinal: Yes: WNL ...Rectal Exam: Yes: Other (rectal tube in place) Edema: No Neurological: Yes: Alert Labs: CBC, BMP 09/16/16 06:25 09/16/16 06:25 INR, PTT INR 1.14 (0.82-1.09) 09/07/16 22:45 Fibrinogen > 700.0 mg/dL (238-498) H 07/31/16 05:40 Assessment/Plan Continue same trt
[2016-09-19] MEDS ORDERED: morphine CARPU-JECT 2 MG/1 ML DISP.SYRIN IVPUSH PRN (11:35)
[2016-09-19] MEDS ORDERED: diphenhydrAMINE HCL 12.5 MG/5 ML UNIT-DOSE CUPS PO ONE (11:45)
--- NOTE | 2016-09-19 11:55 | PN ---
Progress Note, Physician History of Present Illness: pulkmonary awake,on vent support ac mode - Current Medication List Current Medications: Active Medications Acetaminophen (Tylenol Oral Solution -) 650 mg PO Q6H PRN PRN Reason: FEVER OR PAIN Last Admin: 09/16/16 11:47 Dose: 650 mg Collagenase (Santyl -) 1 applic TP DAILY [facility] Last Admin: 09/19/16 09:20 Dose: 1 applic Dextrose (D50w (Vial) -) 50 gm IVPUSH Q15M PRN PRN Reason: BLOOD SUGAR < 60 Enoxaparin Sodium (Lovenox -) 40 mg SQ BID [facility] Last Admin: 09/19/16 09:17 Dose: 40 mg Furosemide (Lasix -) 20 mg GT DAILY [facility] Last Admin: 09/19/16 09:17 Dose: 20 mg IV Flush (Triple Lumen Flush) 4 ml IVPUSH PRN PRN PRN Reason: Protocol Last Admin: 09/19/16 09:30 Dose: 4 ml Ceftazidime 1 gm/ Dextrose 50 mls @ 100 mls/hr IVPB Q8H-IV [facility] PRN Reason: Protocol Last Admin: 09/19/16 09:18 Dose: 100 mls/hr Insulin Aspart (Novolog Vial Sliding Scale -) 1 vial SQ BIDAC [facility] PRN Reason: Protocol Last Admin: 09/19/16 06:39 Dose: Not Given Insulin Detemir (Levemir Vial) 18 units SQ HS [facility] Last Admin: 09/18/16 21:24 Dose: 18 units Magnesium Oxide (Mag-Ox -) 400 mg GT BID [facility] Last Admin: 09/19/16 09:17 Dose: 400 mg Miscellaneous (Duragesic Patch Waste) 1 each TD PRN PRN PRN Reason: PAIN Morphine Sulfate (Morphine Injection -) 2 mg IVPUSH Q4H PRN PRN Reason: PAIN Ofloxacin (Ocuflox 0.3% Eye Drops -) 1 drop OD Q4HWA [facility] Last Admin: 09/19/16 09:18 Dose: 1 drop Potassium Chloride (Potassium Chloride Oral Liquid) 40 meq GT BID [facility] Last Admin: 09/19/16 09:17 Dose: 40 meq Prednisolone Acetate (Pred Forte 1% -) 1 drop OD BID [facility] Last Admin: 09/19/16 09:19 Dose: 1 drp Ranitidine HCl (Zantac Oral Solution -) 150 mg PO BID [facility] Last Admin: 09/19/16 09:17 Dose: 150 mg - Objective Vital Signs: Vital Signs Temperature 99.4 F 09/19/16 06:00 Pulse Rate 94 H 09/19/16 06:00 Respiratory Rate 25 H 09/19/16 10:33 Blood Pressure 108/68 09/19/16 06:00 O2 Sat by Pulse Oximetry (%) 100 09/15/16 18:00 Constitutional: Yes: Calm, Thin Eyes: Yes: WNL HENT: Yes: WNL Neck: Yes: WNL Cardiovascular: Yes: Regular Rate and Rhythm, S1 Respiratory: Yes: Rhonchi (scattered elia rhonchi) Gastrointestinal: Yes: Normal Bowel Sounds, Soft Extremities: Yes: Other (elia gangrene hands and feet) Edema: Yes Labs: CBC, BMP Problem List - Problems (1) ZAHIRA (acute kidney injury) Code(s): N17.9 - ACUTE KIDNEY FAILURE, UNSPECIFIED (2) Acute metabolic encephalopathy Code(s): G93.41 - METABOLIC ENCEPHALOPATHY (3) Ischemia of extremity Code(s): I99.8 - OTHER DISORDER OF CIRCULATORY SYSTEM (4) Metabolic acidemia Code(s): E87.2 - ACIDOSIS (5) Perforated abdominal viscus Code(s): [id number] - (6) Sepsis Code(s): A41.9 - SEPSIS, UNSPECIFIED ORGANISM (7) Acute respiratory failure Code(s): J96.00 - ACUTE RESPIRATORY FAILURE, UNSP W HYPOXIA OR HYPERCAPNIA Assessment/Plan ASSESSMENT AND PLAN: Perforated Duodenal Ulcer Peritonitis s/p ex-lap/omental patch repair 07/16 Enterocutaneous Fistula Acute Respiratory Failure s/p Tracheostomy s/p Septic Shock DM DVT Gangrene s/p PEA Cardiac Arrest - antibiotics per ID - taper Fio2 to keep Spo2 >90% - continue anticoagulation - morphine for comfort - enteral feeds as tolerated - volume assist control, poor candidate for weaning - DVT/GI prophylaxis - recommend palliative due to failure to wean, anticipated amputations, poor quality of life DR OSEI
--- NOTE | 2016-09-19 15:32 | PN ---
Progress Note, Physician History of Present Illness: continues to be status quo no new issues - Current Medication List Current Medications: Active Medications Acetaminophen (Tylenol Oral Solution -) 650 mg PO Q6H PRN PRN Reason: FEVER OR PAIN Last Admin: 09/16/16 11:47 Dose: 650 mg Collagenase (Santyl -) 1 applic TP DAILY [facility] Last Admin: 09/19/16 09:20 Dose: 1 applic Dextrose (D50w (Vial) -) 50 gm IVPUSH Q15M PRN PRN Reason: BLOOD SUGAR < 60 Enoxaparin Sodium (Lovenox -) 40 mg SQ BID [facility] Last Admin: 09/19/16 09:17 Dose: 40 mg Furosemide (Lasix -) 20 mg GT DAILY [facility] Last Admin: 09/19/16 09:17 Dose: 20 mg IV Flush (Triple Lumen Flush) 4 ml IVPUSH PRN PRN PRN Reason: Protocol Last Admin: 09/19/16 09:30 Dose: 4 ml Insulin Aspart (Novolog Vial Sliding Scale -) 1 vial SQ BIDAC [facility] PRN Reason: Protocol Last Admin: 09/19/16 06:39 Dose: Not Given Insulin Detemir (Levemir Vial) 18 units SQ HS [facility] Last Admin: 09/18/16 21:24 Dose: 18 units Magnesium Oxide (Mag-Ox -) 400 mg GT BID [facility] Last Admin: 09/19/16 09:17 Dose: 400 mg Miscellaneous (Duragesic Patch Waste) 1 each TD PRN PRN PRN Reason: PAIN Morphine Sulfate (Morphine Injection -) 2 mg IVPUSH Q4H PRN PRN Reason: PAIN Ofloxacin (Ocuflox 0.3% Eye Drops -) 1 drop OD Q4HWA [facility] Last Admin: 09/19/16 09:18 Dose: 1 drop Potassium Chloride (Potassium Chloride Oral Liquid) 40 meq GT BID [facility] Last Admin: 09/19/16 09:17 Dose: 40 meq Prednisolone Acetate (Pred Forte 1% -) 1 drop OD BID [facility] Last Admin: 09/19/16 09:19 Dose: 1 drp Ranitidine HCl (Zantac Oral Solution -) 150 mg PO BID [facility] Last Admin: 09/19/16 09:17 Dose: 150 mg - Objective Vital Signs: Vital Signs Temperature 96.9 F L 09/19/16 14:53 Pulse Rate 102 H 09/19/16 14:53 Respiratory Rate 19 09/19/16 14:53 Blood Pressure 109/55 09/19/16 14:53 O2 Sat by Pulse Oximetry (%) 98 09/19/16 09:00 Constitutional: Yes: Calm, Other Cardiovascular: Yes: S1, S2 Respiratory: Yes: Mechanically Ventilated, Other (trach) Gastrointestinal: Yes: Normal Bowel Sounds, Soft, Other (peg tube in place) Musculoskeletal: Yes: Other Extremities: Yes: Other Neurological: Yes: Alert, Other Labs: CBC, BMP 09/16/16 06:25 09/16/16 06:25 INR, PTT INR 1.14 (0.82-1.09) 09/07/16 22:45 Fibrinogen > 700.0 mg/dL (238-498) H 07/31/16 05:40 Assessment/Plan Problem List - Problems (1) Abdominal pain Code(s): R10.9 - UNSPECIFIED ABDOMINAL PAIN Qualifiers: Qualified Code(s): R10.33 - Periumbilical pain (2) Perforated abdominal viscus Code(s): [id number] - (3) Perforated viscus Code(s): R19.8 - OTH SYMPTOMS AND SIGNS INVOLVING THE DGSTV SYS AND ABDOMEN (4) Hypertension Code(s): I10 - ESSENTIAL (PRIMARY) HYPERTENSION Qualifiers: Qualified Code(s): I10 - Essential (primary) hypertension lactic acidosis fevers generalized swelling gangrene of the tip of the fingers noted pseudomonas pneumonia plan continue to monitor nutrition will need peg changed rest as per the team
[2016-09-19] MEDS: INSULIN DETEMIR 100 UNITS/ML MDV SQ SCH (21:11)
[2016-09-20] MEDS: OFLOXACIN 0.3% OPHTHALMIC SOLUTION 5 ML BOTTLE OD SCH ×5 (06:41→22:07)
[2016-09-20] MEDS: INSULIN SLIDING SCALE (NOVOLOG) 1 VIAL SQ SCH ×2 (06:41→17:55)
[2016-09-20 07:21] LABS: BASOPHIL 1.2 % (0-2.0); EOSINOPHIL 3.9 % (0-4.5); MCH 28.8 pg (25.7-33.7); MCHC 33.4 g/dl (32.0-36.0); MEAN CELL VOLUME 86.3 fl (80-96); MEAN PLT VOLUME 8.3 fl (7.5-11.1); NEUTROPHILS 44.2 % (42.8-82.8); PLATELET COUNT 428 K/MM3 (134-434); RDW 16.3 % (11.6-15.6); WHITE BLOOD COUNT 8.5 K/mm3 (4.0-10.0)
[2016-09-20 07:50] LABS: ALBUMIN 2.2 g/dl (3.4-5.0); GLUCOSE,RANDOM 178 mg/dL (74-106)
[2016-09-20 07:53] LABS: ALK PHOS 114 U/L (45-117); ANION GAP 6 (8-16); BILIRUBIN,TOTAL 0.5 mg/dL (0.2-1.0); CALCIUM 10.5 mg/dL (8.5-10.1); CO2 34 mmol/L (21-32); CREATININE 0.4 mg/dL (0.55-1.02); SGOT/AST 16 U/L (15-37); SGPT/ALT 14 U/L (12-78); TOT PROT 7.1 g/dl (6.4-8.2)
--- NOTE | 2016-09-20 08:07 | PN ---
Progress Note, Physician Chief Complaint: Was restless on weaning mode,put back on AC mode History of Present Illness: Sleeping comfortable - Current Medication List Current Medications: Active Medications Acetaminophen (Tylenol Oral Solution -) 650 mg PO Q6H PRN PRN Reason: FEVER OR PAIN Last Admin: 09/16/16 11:47 Dose: 650 mg Collagenase (Santyl -) 1 applic TP DAILY [facility] Last Admin: 09/19/16 09:20 Dose: 1 applic Dextrose (D50w (Vial) -) 50 gm IVPUSH Q15M PRN PRN Reason: BLOOD SUGAR < 60 Enoxaparin Sodium (Lovenox -) 40 mg SQ BID [facility] Last Admin: 09/19/16 21:11 Dose: 40 mg Furosemide (Lasix -) 20 mg GT DAILY [facility] Last Admin: 09/19/16 09:17 Dose: 20 mg IV Flush (Triple Lumen Flush) 4 ml IVPUSH PRN PRN PRN Reason: Protocol Last Admin: 09/19/16 17:03 Dose: 4 ml Insulin Aspart (Novolog Vial Sliding Scale -) 1 vial SQ BIDAC [facility] PRN Reason: Protocol Last Admin: 09/20/16 06:41 Dose: 2 units Insulin Detemir (Levemir Vial) 18 units SQ HS [facility] Last Admin: 09/19/16 21:11 Dose: 18 units Magnesium Oxide (Mag-Ox -) 400 mg GT BID [facility] Last Admin: 09/19/16 21:12 Dose: 400 mg Miscellaneous (Duragesic Patch Waste) 1 each TD PRN PRN PRN Reason: PAIN Morphine Sulfate (Morphine Injection -) 2 mg IVPUSH Q4H PRN PRN Reason: PAIN Ofloxacin (Ocuflox 0.3% Eye Drops -) 1 drop OD Q4HWA [facility] Last Admin: 09/20/16 06:41 Dose: 1 drop Potassium Chloride (Potassium Chloride Oral Liquid) 40 meq GT BID [facility] Last Admin: 09/19/16 21:12 Dose: 40 meq Prednisolone Acetate (Pred Forte 1% -) 1 drop OD BID [facility] Last Admin: 09/19/16 21:13 Dose: 1 drp Ranitidine HCl (Zantac Oral Solution -) 150 mg PO BID [facility] Last Admin: 09/19/16 21:15 Dose: 150 mg - Objective Vital Signs: Vital Signs Temperature 97.9 F 09/20/16 06:00 Pulse Rate 95 H 09/20/16 06:00 Respiratory Rate 16 09/20/16 06:35 Blood Pressure 137/79 09/20/16 06:00 O2 Sat by Pulse Oximetry (%) 98 09/19/16 09:00 Constitutional: Yes: No Distress Eyes: Yes: WNL HENT: Yes: WNL Neck: Yes: WNL Cardiovascular: Yes: Pulse Irregular Respiratory: Yes: Mechanically Ventilated Gastrointestinal: Yes: Normal Bowel Sounds ...Rectal Exam: Yes: Deferred Genitourinary: Yes: WNL, Bacon Present Musculoskeletal: Yes: Muscle Weakness Neurological: Yes: Oriented Labs: CBC, BMP 09/20/16 06:00 09/20/16 06:00 INR, PTT INR 1.14 (0.82-1.09) 09/07/16 22:45 Fibrinogen > 700.0 mg/dL (238-498) H 07/31/16 05:40 Assessment/Plan continue weaning
[2016-09-20] MEDS ORDERED: PT OWN MED DRAWER 7, Y5N ONE (09:53)
[2016-09-20] MEDS: ENOXAPARIN NA (PORCINE) 40 MG/0.4 ML DISP.SYRIN SQ SCH ×2 (09:54→22:06)
[2016-09-20] MEDS: FUROSEMIDE 20 MG TABLET (FP) GT SCH (09:54)
[2016-09-20] MEDS: RANITIDINE HCL 150 MG/10 ML UNIT-DOSE CUP PO SCH ×2 (09:54→22:08)
[2016-09-20] MEDS: MAGNESIUM OXIDE 400 MG TABLET (FP) GT SCH ×2 (09:54→22:07)
[2016-09-20] MEDS: POTASSIUM CHLORIDE ORAL LIQUID 20 MEQ/15 ML GT SCH ×2 (09:54→22:08)
[2016-09-20] MEDS: prednisoLONE ACETATE 1% OPHTH SUSP 5 ML BOTTLE OD SCH ×2 (10:00→22:08)
[2016-09-20] MEDS: COLLAGENASE CLOSTRIDIUM HIST. 30 GRAMS TUBE TP SCH (10:51)
--- NOTE | 2016-09-20 11:11 | PN ---
Progress Note, Physician History of Present Illness: pulmonary awake on vent support,on cpap - Current Medication List Current Medications: Active Medications Acetaminophen (Tylenol Oral Solution -) 650 mg PO Q6H PRN PRN Reason: FEVER OR PAIN Last Admin: 09/16/16 11:47 Dose: 650 mg Collagenase (Santyl -) 1 applic TP DAILY [facility] Last Admin: 09/20/16 10:51 Dose: 1 applic Dextrose (D50w (Vial) -) 50 gm IVPUSH Q15M PRN PRN Reason: BLOOD SUGAR < 60 Enoxaparin Sodium (Lovenox -) 40 mg SQ BID [facility] Last Admin: 09/20/16 09:54 Dose: 40 mg Furosemide (Lasix -) 20 mg GT DAILY [facility] Last Admin: 09/20/16 09:54 Dose: 20 mg IV Flush (Triple Lumen Flush) 4 ml IVPUSH PRN PRN PRN Reason: Protocol Last Admin: 09/19/16 17:03 Dose: 4 ml Insulin Aspart (Novolog Vial Sliding Scale -) 1 vial SQ BIDAC [facility] PRN Reason: Protocol Last Admin: 09/20/16 06:41 Dose: 2 units Insulin Detemir (Levemir Vial) 18 units SQ HS [facility] Last Admin: 09/19/16 21:11 Dose: 18 units Magnesium Oxide (Mag-Ox -) 400 mg GT BID [facility] Last Admin: 09/20/16 09:54 Dose: 400 mg Miscellaneous (Duragesic Patch Waste) 1 each TD PRN PRN PRN Reason: PAIN Morphine Sulfate (Morphine Injection -) 2 mg IVPUSH Q4H PRN PRN Reason: PAIN Last Admin: 09/20/16 10:50 Dose: 2 mg Ofloxacin (Ocuflox 0.3% Eye Drops -) 1 drop OD Q4HWA [facility] Last Admin: 09/20/16 06:41 Dose: 1 drop Potassium Chloride (Potassium Chloride Oral Liquid) 40 meq GT BID [facility] Last Admin: 09/20/16 09:54 Dose: 40 meq Prednisolone Acetate (Pred Forte 1% -) 1 drop OD BID [facility] Last Admin: 09/19/16 21:13 Dose: 1 drp Ranitidine HCl (Zantac Oral Solution -) 150 mg PO BID [facility] Last Admin: 09/20/16 09:54 Dose: 150 mg - Objective Vital Signs: Vital Signs Temperature 97.9 F 09/20/16 06:00 Pulse Rate 95 H 09/20/16 06:00 Respiratory Rate 16 09/20/16 06:35 Blood Pressure 137/79 09/20/16 06:00 O2 Sat by Pulse Oximetry (%) 98 09/19/16 09:00 Constitutional: Yes: Well Nourished, Calm Eyes: Yes: WNL HENT: Yes: WNL Neck: Yes: Supple (+ trach) Cardiovascular: Yes: Regular Rate and Rhythm, S1, S2 Respiratory: Yes: Diminished Gastrointestinal: Yes: Normal Bowel Sounds, Soft Extremities: Yes: Other (elia gangene hands and feet) Edema: No Labs: CBC, BMP 09/20/16 06:00 09/20/16 06:00 INR, PTT INR 1.14 (0.82-1.09) 09/07/16 22:45 Fibrinogen > 700.0 mg/dL (238-498) H 07/31/16 05:40 Problem List - Problems (1) ZAHIRA (acute kidney injury) Code(s): N17.9 - ACUTE KIDNEY FAILURE, UNSPECIFIED (2) Acute metabolic encephalopathy Code(s): G93.41 - METABOLIC ENCEPHALOPATHY (3) Ischemia of extremity Code(s): I99.8 - OTHER DISORDER OF CIRCULATORY SYSTEM (4) Metabolic acidemia Code(s): E87.2 - ACIDOSIS (5) Perforated abdominal viscus Code(s): [id number] - (6) Sepsis Code(s): A41.9 - SEPSIS, UNSPECIFIED ORGANISM (7) Acute respiratory failure Code(s): J96.00 - ACUTE RESPIRATORY FAILURE, UNSP W HYPOXIA OR HYPERCAPNIA Assessment/Plan ASSESSMENT AND PLAN: Perforated Duodenal Ulcer Peritonitis s/p ex-lap/omental patch repair 07/16 Enterocutaneous Fistula Acute Respiratory Failure s/p Tracheostomy s/p Septic Shock DM DVT Gangrene s/p PEA Cardiac Arrest - antibiotics per ID - taper Fio2 to keep Spo2 >90% - anticoagulation - morphine for comfort - enteral feeds as tolerated - volume assist control, poor candidate for weaning - DVT/GI prophylaxis - recommend palliative due to failure to wean, anticipated amputations, poor quality of life DR OSEI
--- NOTE | 2016-09-20 13:08 | PN ---
Progress Note, Physician History of Present Illness: continues to be status quo no new issues tube continues to leak - Current Medication List Current Medications: Active Medications Acetaminophen (Tylenol Oral Solution -) 650 mg PO Q6H PRN PRN Reason: FEVER OR PAIN Last Admin: 09/16/16 11:47 Dose: 650 mg Collagenase (Santyl -) 1 applic TP DAILY [facility] Last Admin: 09/20/16 10:51 Dose: 1 applic Dextrose (D50w (Vial) -) 50 gm IVPUSH Q15M PRN PRN Reason: BLOOD SUGAR < 60 Enoxaparin Sodium (Lovenox -) 40 mg SQ BID [facility] Last Admin: 09/20/16 09:54 Dose: 40 mg Furosemide (Lasix -) 20 mg GT DAILY [facility] Last Admin: 09/20/16 09:54 Dose: 20 mg IV Flush (Triple Lumen Flush) 4 ml IVPUSH PRN PRN PRN Reason: Protocol Last Admin: 09/19/16 17:03 Dose: 4 ml Insulin Aspart (Novolog Vial Sliding Scale -) 1 vial SQ BIDAC [facility] PRN Reason: Protocol Last Admin: 09/20/16 06:41 Dose: 2 units Insulin Detemir (Levemir Vial) 18 units SQ HS [facility] Last Admin: 09/19/16 21:11 Dose: 18 units Magnesium Oxide (Mag-Ox -) 400 mg GT BID [facility] Last Admin: 09/20/16 09:54 Dose: 400 mg Miscellaneous (Duragesic Patch Waste) 1 each TD PRN PRN PRN Reason: PAIN Morphine Sulfate (Morphine Injection -) 2 mg IVPUSH Q4H PRN PRN Reason: PAIN Last Admin: 09/20/16 10:50 Dose: 2 mg Ofloxacin (Ocuflox 0.3% Eye Drops -) 1 drop OD Q4HWA [facility] Last Admin: 09/20/16 06:41 Dose: 1 drop Potassium Chloride (Potassium Chloride Oral Liquid) 40 meq GT BID [facility] Last Admin: 09/20/16 09:54 Dose: 40 meq Prednisolone Acetate (Pred Forte 1% -) 1 drop OD BID [facility] Last Admin: 09/19/16 21:13 Dose: 1 drp Ranitidine HCl (Zantac Oral Solution -) 150 mg PO BID [facility] Last Admin: 09/20/16 09:54 Dose: 150 mg - Objective Vital Signs: Vital Signs Temperature 97.9 F 09/20/16 06:00 Pulse Rate 95 H 09/20/16 06:00 Respiratory Rate 21 09/20/16 11:27 Blood Pressure 137/79 09/20/16 06:00 O2 Sat by Pulse Oximetry (%) 98 09/19/16 09:00 Constitutional: Yes: No Distress, Calm Cardiovascular: Yes: Regular Rate and Rhythm Respiratory: Yes: Regular, CTA Bilaterally Gastrointestinal: Yes: Soft, Other (peg tube in place still leaking) Musculoskeletal: Yes: Other Extremities: Yes: Other Wound/Incision: Yes: Dressing Dry and Intact Neurological: Yes: Alert, Other Psychiatric: Yes: Other Labs: CBC, BMP 09/20/16 06:00 09/20/16 06:00 INR, PTT INR 1.14 (0.82-1.09) 09/07/16 22:45 Fibrinogen > 700.0 mg/dL (238-498) H 07/31/16 05:40 Assessment/Plan Problem List - Problems (1) Abdominal pain Code(s): R10.9 - UNSPECIFIED ABDOMINAL PAIN Qualifiers: Qualified Code(s): R10.33 - Periumbilical pain (2) Perforated abdominal viscus Code(s): [id number] - (3) Perforated viscus Code(s): R19.8 - OTH SYMPTOMS AND SIGNS INVOLVING THE DGSTV SYS AND ABDOMEN (4) Hypertension Code(s): I10 - ESSENTIAL (PRIMARY) HYPERTENSION Qualifiers: Qualified Code(s): I10 - Essential (primary) hypertension lactic acidosis fevers generalized swelling gangrene of the tip of the fingers noted pseudomonas pneumonia plan stable off of abx continue to monitor rest as per surgery nutrition
[2016-09-20] MEDS: fentaNYL 25mcg/hr PATCH.TD72 TD SCH (17:42)
[2016-09-20] MEDS: FENTANYL PATCH WASTE TD PRN (17:44)
[2016-09-20] MEDS: INSULIN DETEMIR 100 UNITS/ML MDV SQ SCH (22:05)
[2016-09-21] MEDS: OFLOXACIN 0.3% OPHTHALMIC SOLUTION 5 ML BOTTLE OD SCH ×5 (06:29→21:57)
[2016-09-21] MEDS: INSULIN SLIDING SCALE (NOVOLOG) 1 VIAL SQ SCH ×2 (06:29→16:32)
[2016-09-21] MEDS ORDERED: PT OWN MED DRAWER 7, Y5N ONE ×2 (09:06→14:29)
[2016-09-21] MEDS: RANITIDINE HCL 150 MG/10 ML UNIT-DOSE CUP PO SCH ×2 (09:09→21:58)
[2016-09-21] MEDS: ENOXAPARIN NA (PORCINE) 40 MG/0.4 ML DISP.SYRIN SQ SCH ×2 (09:09→21:56)
[2016-09-21] MEDS: POTASSIUM CHLORIDE ORAL LIQUID 20 MEQ/15 ML GT SCH ×2 (09:09→21:57)
[2016-09-21] MEDS: FUROSEMIDE 20 MG TABLET (FP) GT SCH (09:09)
[2016-09-21] MEDS: MAGNESIUM OXIDE 400 MG TABLET (FP) GT SCH ×2 (09:09→21:57)
[2016-09-21] MEDS: prednisoLONE ACETATE 1% OPHTH SUSP 5 ML BOTTLE OD SCH ×2 (09:11→21:57)
[2016-09-21] MEDS: COLLAGENASE CLOSTRIDIUM HIST. 30 GRAMS TUBE TP SCH (09:12)
--- NOTE | 2016-09-21 11:06 | PN ---
Progress Note, Physician History of Present Illness: PULMONARY AWAKE ON VENT SUPPORT AC MODE UNABLE TO TOLERATE CPAP - Current Medication List Current Medications: Active Medications Acetaminophen (Tylenol Oral Solution -) 650 mg PO Q6H PRN PRN Reason: FEVER OR PAIN Last Admin: 09/16/16 11:47 Dose: 650 mg Collagenase (Santyl -) 1 applic TP DAILY [facility] Last Admin: 09/21/16 09:12 Dose: 1 applic Dextrose (D50w (Vial) -) 50 gm IVPUSH Q15M PRN PRN Reason: BLOOD SUGAR < 60 Enoxaparin Sodium (Lovenox -) 40 mg SQ BID [facility] Last Admin: 09/21/16 09:09 Dose: 40 mg Fentanyl (Duragesic 25mcg Patch -) 1 patch TD Q72H [facility] Last Admin: 09/20/16 17:42 Dose: 1 patch Furosemide (Lasix -) 20 mg GT DAILY [facility] Last Admin: 09/21/16 09:09 Dose: 20 mg IV Flush (Triple Lumen Flush) 4 ml IVPUSH PRN PRN PRN Reason: Protocol Last Admin: 09/19/16 17:03 Dose: 4 ml Insulin Aspart (Novolog Vial Sliding Scale -) 1 vial SQ BIDAC [facility] PRN Reason: Protocol Last Admin: 09/21/16 06:29 Dose: 2 units Insulin Detemir (Levemir Vial) 18 units SQ HS [facility] Last Admin: 09/20/16 22:05 Dose: 18 units Magnesium Oxide (Mag-Ox -) 400 mg GT BID [facility] Last Admin: 09/21/16 09:09 Dose: 400 mg Miscellaneous (Duragesic Patch Waste) 1 each TD PRN PRN PRN Reason: PAIN Last Admin: 09/20/16 17:44 Dose: 1 each Morphine Sulfate (Morphine Injection -) 2 mg IVPUSH Q4H PRN PRN Reason: PAIN Last Admin: 09/20/16 10:50 Dose: 2 mg Ofloxacin (Ocuflox 0.3% Eye Drops -) 1 drop OD Q4HWA [facility] Last Admin: 09/21/16 09:10 Dose: 1 drop Potassium Chloride (Potassium Chloride Oral Liquid) 40 meq GT BID [facility] Last Admin: 09/21/16 09:09 Dose: 40 meq Prednisolone Acetate (Pred Forte 1% -) 1 drop OD BID [facility] Last Admin: 09/21/16 09:11 Dose: 1 drp Ranitidine HCl (Zantac Oral Solution -) 150 mg PO BID [facility] Last Admin: 09/21/16 09:09 Dose: 150 mg - Objective Vital Signs: Vital Signs Temperature 99.2 F 09/21/16 06:00 Pulse Rate 103 H 09/21/16 06:00 Respiratory Rate 12 09/21/16 10:45 Blood Pressure 134/77 09/21/16 06:00 O2 Sat by Pulse Oximetry (%) 98 09/19/16 09:00 Constitutional: Yes: Well Nourished, Calm Eyes: Yes: WNL HENT: Yes: WNL Neck: Yes: Supple (TRACH) Cardiovascular: Yes: Regular Rate and Rhythm, S1, S2 Respiratory: Yes: Rhonchi (FEW RHONCHI) Gastrointestinal: Yes: Normal Bowel Sounds, Soft Extremities: Yes: Other (BILATERAL GANGRENE HANDS AND FEET) Labs: CBC, BMP 09/20/16 06:00 09/20/16 06:00 INR, PTT INR 1.14 (0.82-1.09) 09/07/16 22:45 Fibrinogen > 700.0 mg/dL (238-498) H 07/31/16 05:40 Problem List - Problems (1) ZAHIRA (acute kidney injury) Code(s): N17.9 - ACUTE KIDNEY FAILURE, UNSPECIFIED (2) Acute metabolic encephalopathy Code(s): G93.41 - METABOLIC ENCEPHALOPATHY (3) Ischemia of extremity Code(s): I99.8 - OTHER DISORDER OF CIRCULATORY SYSTEM (4) Metabolic acidemia Code(s): E87.2 - ACIDOSIS (5) Perforated abdominal viscus Code(s): [id number] - (6) Sepsis Code(s): A41.9 - SEPSIS, UNSPECIFIED ORGANISM (7) Acute respiratory failure Code(s): J96.00 - ACUTE RESPIRATORY FAILURE, UNSP W HYPOXIA OR HYPERCAPNIA Assessment/Plan ASSESSMENT AND PLAN: Perforated Duodenal Ulcer Peritonitis s/p ex-lap/omental patch repair 07/16 Enterocutaneous Fistula Acute Respiratory Failure s/p Tracheostomy s/p Septic Shock DM DVT Gangrene s/p PEA Cardiac Arrest - antibiotics per ID - Fio2 to keep Spo2 >90% - anticoagulation - morphine for comfort - enteral feeds as tolerated - volume assist control, poor candidate for weaning - DVT/GI prophylaxis - recommend palliative due to failure to wean, anticipated amputations, poor quality of life DR OSEI
--- NOTE | 2016-09-21 12:34 | PN ---
Progress Note, Physician Chief Complaint: Remained at her base line , , low grade fever , opens eye to verbal command, on Vent Saturating well. FS are better controlled, no extremities movement s/p PEA cardiac arrest reviewed now on Vent. remained afebrile. History of Present Illness: 65-year-old F H/O hypertension, hypercholesterolemia, T2DM, ETOH abuse, was presented to ED with abd pain and weight loss underwent exploratory laprotomy for perforated duodenal ulcer on 07/21/16 developed hypotention and sepsis intubate now on trach, colostomy and TPN.on Vent and IV abxfor [facility]., abdominal wound still pus discharge with. FS are better controlled underwent G Tube placement tolerating feeding.patient had PEA arrested with sepsis.Now resolved transferred to floor. - Current Medication List Current Medications: Active Medications Acetaminophen (Tylenol Oral Solution -) 650 mg PO Q6H PRN PRN Reason: FEVER OR PAIN Last Admin: 09/16/16 11:47 Dose: 650 mg Collagenase (Santyl -) 1 applic TP DAILY [facility] Last Admin: 09/21/16 09:12 Dose: 1 applic Dextrose (D50w (Vial) -) 50 gm IVPUSH Q15M PRN PRN Reason: BLOOD SUGAR < 60 Enoxaparin Sodium (Lovenox -) 40 mg SQ BID [facility] Last Admin: 09/21/16 09:09 Dose: 40 mg Fentanyl (Duragesic 25mcg Patch -) 1 patch TD Q72H [facility] Last Admin: 09/20/16 17:42 Dose: 1 patch Furosemide (Lasix -) 20 mg GT DAILY [facility] Last Admin: 09/21/16 09:09 Dose: 20 mg IV Flush (Triple Lumen Flush) 4 ml IVPUSH PRN PRN PRN Reason: Protocol Last Admin: 09/19/16 17:03 Dose: 4 ml Insulin Aspart (Novolog Vial Sliding Scale -) 1 vial SQ BIDAC [facility] PRN Reason: Protocol Last Admin: 09/21/16 06:29 Dose: 2 units Insulin Detemir (Levemir Vial) 18 units SQ HS [facility] Last Admin: 09/20/16 22:05 Dose: 18 units Magnesium Oxide (Mag-Ox -) 400 mg GT BID [facility] Last Admin: 09/21/16 09:09 Dose: 400 mg Miscellaneous (Duragesic Patch Waste) 1 each TD PRN PRN PRN Reason: PAIN Last Admin: 09/20/16 17:44 Dose: 1 each Morphine Sulfate (Morphine Injection -) 2 mg IVPUSH Q4H PRN PRN Reason: PAIN Last Admin: 09/20/16 10:50 Dose: 2 mg Ofloxacin (Ocuflox 0.3% Eye Drops -) 1 drop OD Q4HWA [facility] Last Admin: 09/21/16 09:10 Dose: 1 drop Potassium Chloride (Potassium Chloride Oral Liquid) 40 meq GT BID [facility] Last Admin: 09/21/16 09:09 Dose: 40 meq Prednisolone Acetate (Pred Forte 1% -) 1 drop OD BID [facility] Last Admin: 09/21/16 09:11 Dose: 1 drp Ranitidine HCl (Zantac Oral Solution -) 150 mg PO BID [facility] Last Admin: 09/21/16 09:09 Dose: 150 mg - Objective Vital Signs: Vital Signs Temperature 98.8 F 09/21/16 10:00 Pulse Rate 101 H 09/21/16 10:00 Respiratory Rate 12 09/21/16 10:45 Blood Pressure 136/63 09/21/16 10:00 O2 Sat by Pulse Oximetry (%) 98 09/19/16 09:00 Patient remained altered minimally responsive, on Vent HEENT: Trach at the place on Vent , need intermittent Vent support, mm most, anemia NECK; IJJ at place, no JVD CHEST: Good AE minimal crepts ABD; Colostomy bag at place, discharge from abd fistula, discharge +, BS + , EXT; extensive edema, skin peeling and gangrene of distal extremities 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 Derm; Extensive skin peeling and gangrene of fingers and toes, p Labs: CBC, BMP 09/20/16 06:00 09/20/16 06:00 INR, PTT INR 1.14 (0.82-1.09) 09/07/16 22:45 Fibrinogen > 700.0 mg/dL (238-498) H 07/31/16 05:40 Problem List - Problems (1) Perforated abdominal viscus Assessment/Plan: Patient was presented with Rt UQ pain and with free air, Duodenal ulcer perforation s/p surgery. now fistula formation draining exudates.fistula still has discharge evaluate by surgery. and GI consult, patient has colostomy bag at place, at present off abx... (2) Acute metabolic encephalopathy Assessment/Plan: Secondary to hypoperfusion due to septic shock, at present no significant improvement , most likely hypoxic encephalopathy. Code(s): G93.41 - METABOLIC ENCEPHALOPATHY (3) Ischemia of extremity Assessment/Plan: Ischemia off all extremities due to prolonged vasopressor use, patient needed pressure to maintain BP, now off pressors wound care healing slowly. Code(s): I99.8 - OTHER DISORDER OF CIRCULATORY SYSTEM (4) Sepsis Code(s): A41.9 - SEPSIS, UNSPECIFIED ORGANISM (5) Severe malnutrition Assessment/Plan: S/P PG tolerating feeding remove NG tube, Nutrition consult.. Code(s): E43 - UNSPECIFIED SEVERE PROTEIN-CALORIE MALNUTRITION (6) Diabetes mellitus Assessment/Plan: Better controlled add basal insulin Levimir 18 units FS are better controlled. Code(s): E11.9 - TYPE 2 DIABETES MELLITUS WITHOUT COMPLICATIONS Qualifiers: Diabetes mellitus type: type 2 (7) Cardiac arrest due to respiratory disorder Assessment/Plan: S/P resuuciation Code(s): J98.9 - RESPIRATORY DISORDER, UNSPECIFIED I46.8 - CARDIAC ARREST DUE TO OTHER UNDERLYING CONDITION
--- NOTE | 2016-09-21 14:11 | PN ---
Progress Note, Physician History of Present Illness: patient stable family and in the room discussed in detail with them about the goals and what further they want to do - Current Medication List Current Medications: Active Medications Acetaminophen (Tylenol Oral Solution -) 650 mg PO Q6H PRN PRN Reason: FEVER OR PAIN Last Admin: 09/16/16 11:47 Dose: 650 mg Collagenase (Santyl -) 1 applic TP DAILY [facility] Last Admin: 09/21/16 09:12 Dose: 1 applic Dextrose (D50w (Vial) -) 50 gm IVPUSH Q15M PRN PRN Reason: BLOOD SUGAR < 60 Enoxaparin Sodium (Lovenox -) 40 mg SQ BID [facility] Last Admin: 09/21/16 09:09 Dose: 40 mg Fentanyl (Duragesic 25mcg Patch -) 1 patch TD Q72H [facility] Last Admin: 09/20/16 17:42 Dose: 1 patch Furosemide (Lasix -) 20 mg GT DAILY [facility] Last Admin: 09/21/16 09:09 Dose: 20 mg IV Flush (Triple Lumen Flush) 4 ml IVPUSH PRN PRN PRN Reason: Protocol Last Admin: 09/19/16 17:03 Dose: 4 ml Insulin Aspart (Novolog Vial Sliding Scale -) 1 vial SQ BIDAC [facility] PRN Reason: Protocol Last Admin: 09/21/16 06:29 Dose: 2 units Insulin Detemir (Levemir Vial) 18 units SQ HS [facility] Last Admin: 09/20/16 22:05 Dose: 18 units Magnesium Oxide (Mag-Ox -) 400 mg GT BID [facility] Last Admin: 09/21/16 09:09 Dose: 400 mg Miscellaneous (Duragesic Patch Waste) 1 each TD PRN PRN PRN Reason: PAIN Last Admin: 09/20/16 17:44 Dose: 1 each Morphine Sulfate (Morphine Injection -) 2 mg IVPUSH Q4H PRN PRN Reason: PAIN Last Admin: 09/20/16 10:50 Dose: 2 mg Ofloxacin (Ocuflox 0.3% Eye Drops -) 1 drop OD Q4HWA [facility] Last Admin: 09/21/16 14:06 Dose: 1 drop Potassium Chloride (Potassium Chloride Oral Liquid) 40 meq GT BID [facility] Last Admin: 09/21/16 09:09 Dose: 40 meq Prednisolone Acetate (Pred Forte 1% -) 1 drop OD BID [facility] Last Admin: 09/21/16 09:11 Dose: 1 drp Ranitidine HCl (Zantac Oral Solution -) 150 mg PO BID [facility] Last Admin: 09/21/16 09:09 Dose: 150 mg - Objective Vital Signs: Vital Signs Temperature 98.8 F 09/21/16 10:00 Pulse Rate 101 H 09/21/16 10:00 Respiratory Rate 20 09/21/16 13:43 Blood Pressure 136/63 09/21/16 10:00 O2 Sat by Pulse Oximetry (%) 98 09/19/16 09:00 Constitutional: Yes: No Distress, Calm Cardiovascular: Yes: Regular Rate and Rhythm, S1 Respiratory: Yes: Mechanically Ventilated, Other Gastrointestinal: Yes: Normal Bowel Sounds, Soft, Other (peg in place) Musculoskeletal: Yes: Other Extremities: Yes: Other Neurological: Yes: Alert, Other Psychiatric: Yes: Alert Labs: CBC, BMP 09/20/16 06:00 09/20/16 06:00 INR, PTT INR 1.14 (0.82-1.09) 09/07/16 22:45 Fibrinogen > 700.0 mg/dL (238-498) H 07/31/16 05:40 Assessment/Plan Problem List - Problems (1) Abdominal pain Code(s): R10.9 - UNSPECIFIED ABDOMINAL PAIN Qualifiers: Qualified Code(s): R10.33 - Periumbilical pain (2) Perforated abdominal viscus Code(s): [id number] - (3) Perforated viscus Code(s): R19.8 - OTH SYMPTOMS AND SIGNS INVOLVING THE DGSTV SYS AND ABDOMEN (4) Hypertension Code(s): I10 - ESSENTIAL (PRIMARY) HYPERTENSION Qualifiers: Qualified Code(s): I10 - Essential (primary) hypertension lactic acidosis fevers generalized swelling gangrene of the tip of the fingers noted pseudomonas pneumonia plan continue to monitor nutrition will need peg changed rest as per the team family going to make the decision about the increasing the size of the trach
[2016-09-21] MEDS: ACETAMINOPHEN 650 MG/20.3 ML ORAL SOLUTION (CUPS) PO PRN (17:16)
[2016-09-21] MEDS ORDERED: INSULIN (NOVOLOG) ASPART 100 UNITS/ML 10ML VIAL ONE (17:28)
[2016-09-21] MEDS: INSULIN DETEMIR 100 UNITS/ML MDV SQ SCH (21:56)
[2016-09-22] MEDS: OFLOXACIN 0.3% OPHTHALMIC SOLUTION 5 ML BOTTLE OD SCH ×5 (06:16→23:13)
[2016-09-22] MEDS: INSULIN SLIDING SCALE (NOVOLOG) 1 VIAL SQ SCH ×2 (06:30→18:00)
[2016-09-22 08:34] LABS: BASOPHIL 0.6 % (0-2.0); EOSINOPHIL 3.3 % (0-4.5); MCH 27.8 pg (25.7-33.7); MCHC 31.9 g/dl (32.0-36.0); MEAN CELL VOLUME 87.2 fl (80-96); MEAN PLT VOLUME 8.4 fl (7.5-11.1); NEUTROPHILS 51.7 % (42.8-82.8); PLATELET COUNT 445 K/MM3 (134-434); RDW 16.5 % (11.6-15.6); WHITE BLOOD COUNT 11.1 K/mm3 (4.0-10.0)
--- NOTE | 2016-09-22 08:43 | PN ---
Progress Note, Physician Chief Complaint: Awake History of Present Illness: On respirator - Current Medication List Current Medications: Active Medications Acetaminophen (Tylenol Oral Solution -) 650 mg PO Q6H PRN PRN Reason: FEVER OR PAIN Last Admin: 09/21/16 17:16 Dose: 650 mg Collagenase (Santyl -) 1 applic TP DAILY [facility] Last Admin: 09/21/16 09:12 Dose: 1 applic Dextrose (D50w (Vial) -) 50 gm IVPUSH Q15M PRN PRN Reason: BLOOD SUGAR < 60 Enoxaparin Sodium (Lovenox -) 40 mg SQ BID [facility] Last Admin: 09/21/16 21:56 Dose: 40 mg Fentanyl (Duragesic 25mcg Patch -) 1 patch TD Q72H [facility] Last Admin: 09/20/16 17:42 Dose: 1 patch Furosemide (Lasix -) 20 mg GT DAILY [facility] Last Admin: 09/21/16 09:09 Dose: 20 mg IV Flush (Triple Lumen Flush) 4 ml IVPUSH PRN PRN PRN Reason: Protocol Last Admin: 09/19/16 17:03 Dose: 4 ml Insulin Aspart (Novolog Vial Sliding Scale -) 1 vial SQ BIDAC [facility] PRN Reason: Protocol Last Admin: 09/22/16 06:30 Dose: 4 units Insulin Detemir (Levemir Vial) 18 units SQ HS [facility] Last Admin: 09/21/16 21:56 Dose: 18 units Magnesium Oxide (Mag-Ox -) 400 mg GT BID [facility] Last Admin: 09/21/16 21:57 Dose: 400 mg Miscellaneous (Duragesic Patch Waste) 1 each TD PRN PRN PRN Reason: PAIN Last Admin: 09/20/16 17:44 Dose: 1 each Morphine Sulfate (Morphine Injection -) 2 mg IVPUSH Q4H PRN PRN Reason: PAIN Last Admin: 09/20/16 10:50 Dose: 2 mg Ofloxacin (Ocuflox 0.3% Eye Drops -) 1 drop OD Q4HWA [facility] Last Admin: 09/22/16 06:16 Dose: 1 drop Potassium Chloride (Potassium Chloride Oral Liquid) 40 meq GT BID [facility] Last Admin: 09/21/16 21:57 Dose: 40 meq Prednisolone Acetate (Pred Forte 1% -) 1 drop OD BID [facility] Last Admin: 09/21/16 21:57 Dose: 1 drp Ranitidine HCl (Zantac Oral Solution -) 150 mg PO BID [facility] Last Admin: 09/21/16 21:58 Dose: 150 mg - Objective Vital Signs: Vital Signs Temperature 98.8 F 09/22/16 06:00 Pulse Rate 100 H 09/22/16 06:00 Respiratory Rate 20 09/22/16 06:12 Blood Pressure 146/70 09/22/16 06:00 O2 Sat by Pulse Oximetry (%) 98 09/19/16 09:00 Constitutional: Yes: Calm Eyes: Yes: WNL HENT: Yes: WNL Neck: Yes: WNL Cardiovascular: Yes: Tachycardia Respiratory: Yes: Mechanically Ventilated Gastrointestinal: Yes: Normal Bowel Sounds ...Rectal Exam: Yes: Deferred Genitourinary: Yes: Bacon Present Extremities: Yes: Cool Edema: No Integumentary: Yes: Pressure Ulcer Psychiatric: Yes: Alert Labs: INR, PTT INR 1.14 (0.82-1.09) 09/07/16 22:45 Fibrinogen > 700.0 mg/dL (238-498) H 07/31/16 05:40 Assessment/Plan Attempt weaning
[2016-09-22 08:55] LABS: ALBUMIN 2.3 g/dl (3.4-5.0); ALK PHOS 118 U/L (45-117); ANION GAP 5 (8-16); BILIRUBIN,TOTAL 0.2 mg/dL (0.2-1.0); CALCIUM 10.3 mg/dL (8.5-10.1); CO2 32 mmol/L (21-32); CREATININE 0.4 mg/dL (0.55-1.02); GLUCOSE,RANDOM 227 mg/dL (74-106); SGOT/AST 15 U/L (15-37); SGPT/ALT 12 U/L (12-78); TOT PROT 7.2 g/dl (6.4-8.2)
[2016-09-22] MEDS ORDERED: PT OWN MED DRAWER 7, Y5N ONE ×2 (09:27→14:32)
[2016-09-22] MEDS: MAGNESIUM OXIDE 400 MG TABLET (FP) GT SCH ×2 (09:30→23:10)
[2016-09-22] MEDS: FUROSEMIDE 20 MG TABLET (FP) GT SCH (09:30)
[2016-09-22] MEDS: POTASSIUM CHLORIDE ORAL LIQUID 20 MEQ/15 ML GT SCH ×2 (09:30→23:14)
[2016-09-22] MEDS: COLLAGENASE CLOSTRIDIUM HIST. 30 GRAMS TUBE TP SCH (09:30)
[2016-09-22] MEDS: RANITIDINE HCL 150 MG/10 ML UNIT-DOSE CUP PO SCH ×2 (09:31→23:14)
[2016-09-22] MEDS: prednisoLONE ACETATE 1% OPHTH SUSP 5 ML BOTTLE OD SCH ×2 (09:31→23:14)
[2016-09-22] MEDS: ENOXAPARIN NA (PORCINE) 40 MG/0.4 ML DISP.SYRIN SQ SCH ×2 (09:31→23:09)
--- NOTE | 2016-09-22 13:47 | PN ---
Progress Note, Physician History of Present Illness: continues to be stable status quo no gross changes - Current Medication List Current Medications: Active Medications Acetaminophen (Tylenol Oral Solution -) 650 mg PO Q6H PRN PRN Reason: FEVER OR PAIN Last Admin: 09/21/16 17:16 Dose: 650 mg Collagenase (Santyl -) 1 applic TP DAILY [facility] Last Admin: 09/22/16 09:30 Dose: 1 applic Dextrose (D50w (Vial) -) 50 gm IVPUSH Q15M PRN PRN Reason: BLOOD SUGAR < 60 Enoxaparin Sodium (Lovenox -) 40 mg SQ BID [facility] Fentanyl (Duragesic 25mcg Patch -) 1 patch TD Q72H [facility] Last Admin: 09/20/16 17:42 Dose: 1 patch Furosemide (Lasix -) 20 mg GT DAILY [facility] Last Admin: 09/22/16 09:30 Dose: 20 mg IV Flush (Triple Lumen Flush) 4 ml IVPUSH PRN PRN PRN Reason: Protocol Last Admin: 09/19/16 17:03 Dose: 4 ml Insulin Aspart (Novolog Vial Sliding Scale -) 1 vial SQ BIDAC [facility] PRN Reason: Protocol Last Admin: 09/22/16 06:30 Dose: 4 units Insulin Detemir (Levemir Vial) 18 units SQ HS [facility] Last Admin: 09/21/16 21:56 Dose: 18 units Magnesium Oxide (Mag-Ox -) 400 mg GT BID [facility] Last Admin: 09/22/16 09:30 Dose: 400 mg Miscellaneous (Duragesic Patch Waste) 1 each TD PRN PRN PRN Reason: PAIN Last Admin: 09/20/16 17:44 Dose: 1 each Morphine Sulfate (Morphine Injection -) 2 mg IVPUSH Q4H PRN PRN Reason: PAIN Ofloxacin (Ocuflox 0.3% Eye Drops -) 1 drop OD Q4HWA [facility] Last Admin: 09/22/16 09:31 Dose: 1 drop Potassium Chloride (Potassium Chloride Oral Liquid) 40 meq GT BID [facility] Last Admin: 09/22/16 09:30 Dose: 40 meq Prednisolone Acetate (Pred Forte 1% -) 1 drop OD BID [facility] Last Admin: 09/22/16 09:31 Dose: 1 drp Ranitidine HCl (Zantac Oral Solution -) 150 mg PO BID [facility] Last Admin: 09/22/16 09:31 Dose: 150 mg - Objective Vital Signs: Vital Signs Temperature 98.8 F 09/22/16 10:00 Pulse Rate 105 H 09/22/16 10:00 Respiratory Rate 15 09/22/16 10:00 Blood Pressure 126/74 09/22/16 10:00 O2 Sat by Pulse Oximetry (%) 98 09/19/16 09:00 Constitutional: Yes: Calm Neck: Yes: Other Cardiovascular: Yes: S1, S2 Respiratory: Yes: Mechanically Ventilated, Other (trach) Gastrointestinal: Yes: Normal Bowel Sounds, Soft, Other (peg) Musculoskeletal: Yes: Other Extremities: Yes: Other Neurological: Yes: Alert, Other Labs: CBC, BMP 09/22/16 06:30 09/22/16 06:30 INR, PTT INR 1.14 (0.82-1.09) 09/07/16 22:45 Fibrinogen > 700.0 mg/dL (238-498) H 07/31/16 05:40 Assessment/Plan Problem List - Problems (1) Abdominal pain Code(s): R10.9 - UNSPECIFIED ABDOMINAL PAIN Qualifiers: Qualified Code(s): R10.33 - Periumbilical pain (2) Perforated abdominal viscus Code(s): [id number] - (3) Perforated viscus Code(s): R19.8 - OTH SYMPTOMS AND SIGNS INVOLVING THE DGSTV SYS AND ABDOMEN (4) Hypertension Code(s): I10 - ESSENTIAL (PRIMARY) HYPERTENSION Qualifiers: Qualified Code(s): I10 - Essential (primary) hypertension lactic acidosis fevers generalized swelling gangrene of the tip of the fingers noted pseudomonas pneumonia plan continue current mgmt nutrition
--- NOTE | 2016-09-22 13:57 | PN ---
Progress Note, Physician History of Present Illness: pulmonary drowsy,on vent support ac mode - Current Medication List Current Medications: Active Medications Acetaminophen (Tylenol Oral Solution -) 650 mg PO Q6H PRN PRN Reason: FEVER OR PAIN Last Admin: 09/21/16 17:16 Dose: 650 mg Collagenase (Santyl -) 1 applic TP DAILY [facility] Last Admin: 09/22/16 09:30 Dose: 1 applic Dextrose (D50w (Vial) -) 50 gm IVPUSH Q15M PRN PRN Reason: BLOOD SUGAR < 60 Enoxaparin Sodium (Lovenox -) 40 mg SQ BID [facility] Fentanyl (Duragesic 25mcg Patch -) 1 patch TD Q72H [facility] Last Admin: 09/20/16 17:42 Dose: 1 patch Furosemide (Lasix -) 20 mg GT DAILY [facility] Last Admin: 09/22/16 09:30 Dose: 20 mg IV Flush (Triple Lumen Flush) 4 ml IVPUSH PRN PRN PRN Reason: Protocol Last Admin: 09/19/16 17:03 Dose: 4 ml Insulin Aspart (Novolog Vial Sliding Scale -) 1 vial SQ BIDAC [facility] PRN Reason: Protocol Last Admin: 09/22/16 06:30 Dose: 4 units Insulin Detemir (Levemir Vial) 18 units SQ HS [facility] Last Admin: 09/21/16 21:56 Dose: 18 units Magnesium Oxide (Mag-Ox -) 400 mg GT BID [facility] Last Admin: 09/22/16 09:30 Dose: 400 mg Miscellaneous (Duragesic Patch Waste) 1 each TD PRN PRN PRN Reason: PAIN Last Admin: 09/20/16 17:44 Dose: 1 each Morphine Sulfate (Morphine Injection -) 2 mg IVPUSH Q4H PRN PRN Reason: PAIN Ofloxacin (Ocuflox 0.3% Eye Drops -) 1 drop OD Q4HWA [facility] Last Admin: 09/22/16 09:31 Dose: 1 drop Potassium Chloride (Potassium Chloride Oral Liquid) 40 meq GT BID [facility] Last Admin: 09/22/16 09:30 Dose: 40 meq Prednisolone Acetate (Pred Forte 1% -) 1 drop OD BID [facility] Last Admin: 09/22/16 09:31 Dose: 1 drp Ranitidine HCl (Zantac Oral Solution -) 150 mg PO BID [facility] Last Admin: 09/22/16 09:31 Dose: 150 mg - Objective Vital Signs: Vital Signs Temperature 98.8 F 09/22/16 10:00 Pulse Rate 105 H 09/22/16 10:00 Respiratory Rate 15 09/22/16 10:00 Blood Pressure 126/74 09/22/16 10:00 O2 Sat by Pulse Oximetry (%) 98 09/19/16 09:00 Constitutional: Yes: Well Nourished, Other (drowsy) Eyes: Yes: WNL HENT: Yes: WNL Neck: Yes: Supple (trach) Cardiovascular: Yes: Regular Rate and Rhythm, S1, S2 Respiratory: Yes: Rhonchi (scattered elia rhonchi) Gastrointestinal: Yes: Normal Bowel Sounds, Soft Extremities: Yes: Other (gangrene elia hands and feet) Edema: No Labs: CBC, BMP 09/22/16 06:30 09/22/16 06:30 INR, PTT INR 1.14 (0.82-1.09) 09/07/16 22:45 Fibrinogen > 700.0 mg/dL (238-498) H 07/31/16 05:40 Problem List - Problems (1) ZAHIRA (acute kidney injury) Code(s): N17.9 - ACUTE KIDNEY FAILURE, UNSPECIFIED (2) Acute metabolic encephalopathy Code(s): G93.41 - METABOLIC ENCEPHALOPATHY (3) Ischemia of extremity Code(s): I99.8 - OTHER DISORDER OF CIRCULATORY SYSTEM (4) Metabolic acidemia Code(s): E87.2 - ACIDOSIS (5) Perforated abdominal viscus Code(s): [id number] - (6) Sepsis Code(s): A41.9 - SEPSIS, UNSPECIFIED ORGANISM (7) Acute respiratory failure Code(s): J96.00 - ACUTE RESPIRATORY FAILURE, UNSP W HYPOXIA OR HYPERCAPNIA Assessment/Plan ASSESSMENT AND PLAN: Perforated Duodenal Ulcer Peritonitis s/p ex-lap/omental patch repair 07/16 Enterocutaneous Fistula Acute Respiratory Failure s/p Tracheostomy s/p Septic Shock DM DVT Gangrene s/p PEA Cardiac Arrest - Fio2 to keep Spo2 >90% - anticoagulation - morphine for comfort - enteral feeds as tolerated - volume assist control,pt is not a candidate for weaning at this time - DVT/GI prophylaxis - recommend palliative due to failure to wean, anticipated amputations, poor quality of life DR OSEI
[2016-09-22] MEDS ORDERED: INSULIN (NOVOLOG) ASPART 100 UNITS/ML 10ML VIAL ONE (18:27)
[2016-09-22] MEDS ORDERED: POTASSIUM CHLORIDE ORAL LIQUID 20 MEQ/15 ML ONE (22:55)
[2016-09-22] MEDS: INSULIN DETEMIR 100 UNITS/ML MDV SQ SCH (23:09)
[2016-09-22] MEDS: morphine CARPU-JECT 2 MG/1 ML DISP.SYRIN IVPUSH PRN (23:14)
[2016-09-23] MEDS: OFLOXACIN 0.3% OPHTHALMIC SOLUTION 5 ML BOTTLE OD SCH ×5 (06:49→22:08)
[2016-09-23] MEDS: INSULIN SLIDING SCALE (NOVOLOG) 1 VIAL SQ SCH ×2 (06:50→16:54)
--- NOTE | 2016-09-23 09:24 | PN ---
Progress Note, Physician Chief Complaint: On respirator History of Present Illness: Weaning process slow - Current Medication List Current Medications: Active Medications Acetaminophen (Tylenol Oral Solution -) 650 mg PO Q6H PRN PRN Reason: FEVER OR PAIN Last Admin: 09/21/16 17:16 Dose: 650 mg Collagenase (Santyl -) 1 applic TP DAILY [facility] Last Admin: 09/22/16 09:30 Dose: 1 applic Dextrose (D50w (Vial) -) 50 gm IVPUSH Q15M PRN PRN Reason: BLOOD SUGAR < 60 Enoxaparin Sodium (Lovenox -) 40 mg SQ BID [facility] Last Admin: 09/22/16 23:09 Dose: 40 mg Fentanyl (Duragesic 25mcg Patch -) 1 patch TD Q72H [facility] Last Admin: 09/20/16 17:42 Dose: 1 patch Furosemide (Lasix -) 20 mg GT DAILY [facility] Last Admin: 09/22/16 09:30 Dose: 20 mg IV Flush (Triple Lumen Flush) 4 ml IVPUSH PRN PRN PRN Reason: Protocol Last Admin: 09/19/16 17:03 Dose: 4 ml Insulin Aspart (Novolog Vial Sliding Scale -) 1 vial SQ BIDAC [facility] PRN Reason: Protocol Last Admin: 09/23/16 06:50 Dose: 4 units Insulin Detemir (Levemir Vial) 18 units SQ HS [facility] Last Admin: 09/22/16 23:09 Dose: 18 units Magnesium Oxide (Mag-Ox -) 400 mg GT BID [facility] Last Admin: 09/22/16 23:10 Dose: 400 mg Miscellaneous (Duragesic Patch Waste) 1 each TD PRN PRN PRN Reason: PAIN Last Admin: 09/20/16 17:44 Dose: 1 each Morphine Sulfate (Morphine Injection -) 2 mg IVPUSH Q4H PRN PRN Reason: PAIN Last Admin: 09/22/16 23:14 Dose: 2 mg Ofloxacin (Ocuflox 0.3% Eye Drops -) 1 drop OD Q4HWA [facility] Last Admin: 09/23/16 06:49 Dose: 1 drop Potassium Chloride (Potassium Chloride Oral Liquid) 40 meq GT BID [facility] Last Admin: 09/22/16 23:14 Dose: 40 meq Prednisolone Acetate (Pred Forte 1% -) 1 drop OD BID [facility] Last Admin: 09/22/16 23:14 Dose: 1 drp Ranitidine HCl (Zantac Oral Solution -) 150 mg PO BID [facility] Last Admin: 09/22/16 23:14 Dose: 150 mg - Objective Vital Signs: Vital Signs Temperature 98.8 F 09/23/16 06:00 Pulse Rate 86 09/23/16 06:00 Respiratory Rate 17 09/23/16 06:33 Blood Pressure 112/76 09/23/16 06:00 O2 Sat by Pulse Oximetry (%) 98 09/19/16 09:00 Constitutional: Yes: Calm Eyes: Yes: WNL HENT: Yes: WNL Neck: Yes: Other (tracheostomy site OK) Cardiovascular: Yes: Regular Rate and Rhythm Respiratory: Yes: Mechanically Ventilated Gastrointestinal: Yes: Normal Bowel Sounds ...Rectal Exam: Yes: Deferred Genitourinary: Yes: Bacon Present Edema: No Neurological: Yes: Other (awake) Labs: CBC, BMP 09/22/16 06:30 09/22/16 06:30 INR, PTT INR 1.14 (0.82-1.09) 09/07/16 22:45 Fibrinogen > 700.0 mg/dL (238-498) H 07/31/16 05:40 Assessment/Plan Continue same trt
[2016-09-23] MEDS: MAGNESIUM OXIDE 400 MG TABLET (FP) GT SCH ×2 (11:03→22:07)
[2016-09-23] MEDS: FUROSEMIDE 20 MG TABLET (FP) GT SCH (11:03)
[2016-09-23] MEDS: POTASSIUM CHLORIDE ORAL LIQUID 20 MEQ/15 ML GT SCH ×2 (11:04→22:07)
[2016-09-23] MEDS: ENOXAPARIN NA (PORCINE) 40 MG/0.4 ML DISP.SYRIN SQ SCH ×2 (11:04→22:07)
[2016-09-23] MEDS: prednisoLONE ACETATE 1% OPHTH SUSP 5 ML BOTTLE OD SCH ×2 (11:05→22:08)
[2016-09-23] MEDS: RANITIDINE HCL 150 MG/10 ML UNIT-DOSE CUP PO SCH ×2 (11:05→22:07)
--- NOTE | 2016-09-23 12:01 | PN ---
Progress Note, Physician Chief Complaint: PULMOPNARY AWAKE,ON VENT SUPPORT AC MODE - Current Medication List Current Medications: Active Medications Acetaminophen (Tylenol Oral Solution -) 650 mg PO Q6H PRN PRN Reason: FEVER OR PAIN Last Admin: 09/21/16 17:16 Dose: 650 mg Collagenase (Santyl -) 1 applic TP DAILY [facility] Last Admin: 09/22/16 09:30 Dose: 1 applic Dextrose (D50w (Vial) -) 50 gm IVPUSH Q15M PRN PRN Reason: BLOOD SUGAR < 60 Enoxaparin Sodium (Lovenox -) 40 mg SQ BID [facility] Last Admin: 09/23/16 11:04 Dose: 40 mg Fentanyl (Duragesic 25mcg Patch -) 1 patch TD Q72H [facility] Last Admin: 09/20/16 17:42 Dose: 1 patch Furosemide (Lasix -) 20 mg GT DAILY [facility] Last Admin: 09/23/16 11:03 Dose: 20 mg IV Flush (Triple Lumen Flush) 4 ml IVPUSH PRN PRN PRN Reason: Protocol Last Admin: 09/19/16 17:03 Dose: 4 ml Insulin Aspart (Novolog Vial Sliding Scale -) 1 vial SQ BIDAC [facility] PRN Reason: Protocol Last Admin: 09/23/16 06:50 Dose: 4 units Insulin Detemir (Levemir Vial) 18 units SQ HS [facility] Last Admin: 09/22/16 23:09 Dose: 18 units Magnesium Oxide (Mag-Ox -) 400 mg GT BID [facility] Last Admin: 09/23/16 11:03 Dose: 400 mg Miscellaneous (Duragesic Patch Waste) 1 each TD PRN PRN PRN Reason: PAIN Last Admin: 09/20/16 17:44 Dose: 1 each Morphine Sulfate (Morphine Injection -) 2 mg IVPUSH Q4H PRN PRN Reason: PAIN Last Admin: 09/22/16 23:14 Dose: 2 mg Ofloxacin (Ocuflox 0.3% Eye Drops -) 1 drop OD Q4HWA [facility] Last Admin: 09/23/16 11:04 Dose: 1 drop Potassium Chloride (Potassium Chloride Oral Liquid) 40 meq GT BID [facility] Last Admin: 09/23/16 11:04 Dose: 40 meq Prednisolone Acetate (Pred Forte 1% -) 1 drop OD BID [facility] Last Admin: 09/23/16 11:05 Dose: 1 drp Ranitidine HCl (Zantac Oral Solution -) 150 mg PO BID [facility] Last Admin: 09/23/16 11:05 Dose: 150 mg - Objective Vital Signs: Vital Signs Temperature 99.8 F H 09/23/16 10:00 Pulse Rate 102 H 09/23/16 10:00 Respiratory Rate 18 09/23/16 10:00 Blood Pressure 134/92 09/23/16 10:00 O2 Sat by Pulse Oximetry (%) 98 09/19/16 09:00 Constitutional: Yes: Well Nourished, No Distress, Calm Eyes: Yes: WNL HENT: Yes: WNL Neck: Yes: Supple (TRACH) Cardiovascular: Yes: Pulse Irregular, S1, S2 Respiratory: Yes: Rhonchi (FEW RHONCHI) Gastrointestinal: Yes: Normal Bowel Sounds, Soft Extremities: Yes: Other ([place] HANDS AND FEET) Edema: No Problem List - Problems (1) ZAHIRA (acute kidney injury) Code(s): N17.9 - ACUTE KIDNEY FAILURE, UNSPECIFIED (2) Acute metabolic encephalopathy Code(s): G93.41 - METABOLIC ENCEPHALOPATHY (3) Ischemia of extremity Code(s): I99.8 - OTHER DISORDER OF CIRCULATORY SYSTEM (4) Metabolic acidemia Code(s): E87.2 - ACIDOSIS (5) Perforated abdominal viscus Code(s): [id number] - (6) Sepsis Code(s): A41.9 - SEPSIS, UNSPECIFIED ORGANISM (7) Acute respiratory failure Code(s): J96.00 - ACUTE RESPIRATORY FAILURE, UNSP W HYPOXIA OR HYPERCAPNIA Assessment/Plan ASSESSMENT AND PLAN: Perforated Duodenal Ulcer Peritonitis s/p ex-lap/omental patch repair 07/16 Enterocutaneous Fistula Acute Respiratory Failure s/p Tracheostomy s/p Septic Shock DM DVT Gangrene s/p PEA Cardiac Arrest - Fio2 to keep Spo2 >90% - anticoagulation - morphine for comfort - enteral feeds as tolerated - volume assist control,pt is not a candidate for weaning at this time - DVT/GI prophylaxis - recommend palliative due to failure to wean, anticipated amputations, poor quality of life DR OSEI
--- NOTE | 2016-09-23 12:53 | PN ---
Progress Note (short form) - Note Progress Note: Covering for Dr. Louise consulted for possible tracheostomy tube exchange ENT consult reviewed - granulation tissue distal to T-tube Patient not in respiratory distress with no persistent ventilator alarm Recommend to hold off on tube exchange as the problem seems to be complex and may require special equipment. D/W Dr. Miranda and agrees with holding off until Dr. Louise returns. Also suggested ENT f/u.
[2016-09-23] MEDS: morphine CARPU-JECT 2 MG/1 ML DISP.SYRIN IVPUSH PRN ×2 (13:35→18:14)
[2016-09-23] MEDS: TRIPLE LUMEN FLUSH 4 ML ML IVPUSH PRN (13:39)
--- NOTE | 2016-09-23 15:21 | PN ---
Progress Note, Physician History of Present Illness: continues to be same family has made a decision regarding trach tube - Current Medication List Current Medications: Active Medications Acetaminophen (Tylenol Oral Solution -) 650 mg PO Q6H PRN PRN Reason: FEVER OR PAIN Last Admin: 09/21/16 17:16 Dose: 650 mg Collagenase (Santyl -) 1 applic TP DAILY [facility] Last Admin: 09/22/16 09:30 Dose: 1 applic Dextrose (D50w (Vial) -) 50 gm IVPUSH Q15M PRN PRN Reason: BLOOD SUGAR < 60 Enoxaparin Sodium (Lovenox -) 40 mg SQ BID [facility] Last Admin: 09/23/16 11:04 Dose: 40 mg Fentanyl (Duragesic 25mcg Patch -) 1 patch TD Q72H [facility] Last Admin: 09/20/16 17:42 Dose: 1 patch Furosemide (Lasix -) 20 mg GT DAILY [facility] Last Admin: 09/23/16 11:03 Dose: 20 mg IV Flush (Triple Lumen Flush) 4 ml IVPUSH PRN PRN PRN Reason: Protocol Last Admin: 09/23/16 13:39 Dose: 4 ml Insulin Aspart (Novolog Vial Sliding Scale -) 1 vial SQ BIDAC [facility] PRN Reason: Protocol Last Admin: 09/23/16 06:50 Dose: 4 units Insulin Detemir (Levemir Vial) 18 units SQ HS [facility] Last Admin: 09/22/16 23:09 Dose: 18 units Magnesium Oxide (Mag-Ox -) 400 mg GT BID [facility] Last Admin: 09/23/16 11:03 Dose: 400 mg Miscellaneous (Duragesic Patch Waste) 1 each TD PRN PRN PRN Reason: PAIN Last Admin: 09/20/16 17:44 Dose: 1 each Morphine Sulfate (Morphine Injection -) 2 mg IVPUSH Q4H PRN PRN Reason: PAIN Last Admin: 09/23/16 13:35 Dose: 2 mg Ofloxacin (Ocuflox 0.3% Eye Drops -) 1 drop OD Q4HWA [facility] Last Admin: 09/23/16 11:04 Dose: 1 drop Potassium Chloride (Potassium Chloride Oral Liquid) 40 meq GT BID [facility] Last Admin: 09/23/16 11:04 Dose: 40 meq Prednisolone Acetate (Pred Forte 1% -) 1 drop OD BID [facility] Last Admin: 09/23/16 11:05 Dose: 1 drp Ranitidine HCl (Zantac Oral Solution -) 150 mg PO BID [facility] Last Admin: 09/23/16 11:05 Dose: 150 mg - Objective Vital Signs: Vital Signs Temperature 99.8 F H 09/23/16 10:00 Pulse Rate 102 H 09/23/16 10:00 Respiratory Rate 16 09/23/16 13:34 Blood Pressure 134/92 09/23/16 10:00 O2 Sat by Pulse Oximetry (%) 98 09/19/16 09:00 Constitutional: Yes: Calm HENT: Yes: Other Neck: Yes: Supple Cardiovascular: Yes: Regular Rate and Rhythm Respiratory: Yes: Mechanically Ventilated Gastrointestinal: Yes: Normal Bowel Sounds, Soft, Other (peg in place) Extremities: Yes: Other Neurological: Yes: Alert Psychiatric: Yes: Alert Labs: CBC, BMP 09/22/16 06:30 09/22/16 06:30 INR, PTT INR 1.14 (0.82-1.09) 09/07/16 22:45 Fibrinogen > 700.0 mg/dL (238-498) H 07/31/16 05:40 Assessment/Plan Problem List - Problems (1) Abdominal pain Code(s): R10.9 - UNSPECIFIED ABDOMINAL PAIN Qualifiers: Qualified Code(s): R10.33 - Periumbilical pain (2) Perforated abdominal viscus Code(s): [id number] - (3) Perforated viscus Code(s): R19.8 - OTH SYMPTOMS AND SIGNS INVOLVING THE DGSTV SYS AND ABDOMEN (4) Hypertension Code(s): I10 - ESSENTIAL (PRIMARY) HYPERTENSION Qualifiers: Qualified Code(s): I10 - Essential (primary) hypertension lactic acidosis fevers generalized swelling gangrene of the tip of the fingers noted pseudomonas pneumonia plan continue current mgmt nutrition await for increasing size of trach plan
[2016-09-23] MEDS: fentaNYL 25mcg/hr PATCH.TD72 TD SCH (15:22)
[2016-09-23] MEDS: FENTANYL PATCH WASTE TD PRN (15:59)
[2016-09-23] MEDS: COLLAGENASE CLOSTRIDIUM HIST. 30 GRAMS TUBE TP SCH (17:10)
[2016-09-23] MEDS: INSULIN DETEMIR 100 UNITS/ML MDV SQ SCH (22:06)
[2016-09-24] MEDS: ACETAMINOPHEN 650 MG/20.3 ML ORAL SOLUTION (CUPS) PO PRN ×2 (03:18→16:15)
[2016-09-24] MEDS: INSULIN SLIDING SCALE (NOVOLOG) 1 VIAL SQ SCH ×2 (06:36→16:30)
[2016-09-24] MEDS: OFLOXACIN 0.3% OPHTHALMIC SOLUTION 5 ML BOTTLE OD SCH ×5 (06:36→23:27)
[2016-09-24] MEDS ORDERED: INSULIN (NOVOLOG) ASPART 100 UNITS/ML 10ML VIAL ONE (07:02)
[2016-09-24] MEDS ORDERED: INSULIN DETEMIR 100 UNITS/ML MDV SQ ONE (07:02)
--- NOTE | 2016-09-24 09:07 | PN ---
Progress Note, Physician Chief Complaint: On respirator,AC History of Present Illness: Case discussed with Dr Gamino regarding the ET tube changing - Current Medication List Current Medications: Active Medications Acetaminophen (Tylenol Oral Solution -) 650 mg PO Q6H PRN PRN Reason: FEVER OR PAIN Last Admin: 09/24/16 03:18 Dose: 650 mg Collagenase (Santyl -) 1 applic TP DAILY [facility] Last Admin: 09/23/16 17:10 Dose: 1 applic Dextrose (D50w (Vial) -) 50 gm IVPUSH Q15M PRN PRN Reason: BLOOD SUGAR < 60 Enoxaparin Sodium (Lovenox -) 40 mg SQ BID [facility] Last Admin: 09/23/16 22:07 Dose: 40 mg Fentanyl (Duragesic 25mcg Patch -) 1 patch TD Q72H [facility] Last Admin: 09/23/16 15:22 Dose: 1 patch Furosemide (Lasix -) 20 mg GT DAILY [facility] Last Admin: 09/23/16 11:03 Dose: 20 mg IV Flush (Triple Lumen Flush) 4 ml IVPUSH PRN PRN PRN Reason: Protocol Last Admin: 09/23/16 13:39 Dose: 4 ml Insulin Aspart (Novolog Vial Sliding Scale -) 1 vial SQ BIDAC [facility] PRN Reason: Protocol Last Admin: 09/24/16 06:36 Dose: 8 units Insulin Detemir (Levemir Vial) 18 units SQ HS [facility] Last Admin: 09/23/16 22:06 Dose: 18 units Magnesium Oxide (Mag-Ox -) 400 mg GT BID [facility] Last Admin: 09/23/16 22:07 Dose: 400 mg Miscellaneous (Duragesic Patch Waste) 1 each TD PRN PRN PRN Reason: PAIN Last Admin: 09/23/16 15:59 Dose: 1 each Morphine Sulfate (Morphine Injection -) 2 mg IVPUSH Q4H PRN PRN Reason: PAIN Last Admin: 09/23/16 18:14 Dose: 2 mg Ofloxacin (Ocuflox 0.3% Eye Drops -) 1 drop OD Q4HWA [facility] Last Admin: 09/24/16 06:36 Dose: 1 drop Potassium Chloride (Potassium Chloride Oral Liquid) 40 meq GT BID [facility] Last Admin: 09/23/16 22:07 Dose: 40 meq Prednisolone Acetate (Pred Forte 1% -) 1 drop OD BID [facility] Last Admin: 09/23/16 22:08 Dose: 1 drp Ranitidine HCl (Zantac Oral Solution -) 150 mg PO BID [facility] Last Admin: 09/23/16 22:07 Dose: 150 mg - Objective Vital Signs: Vital Signs Temperature 100.8 F H 09/24/16 02:00 Pulse Rate 101 H 09/24/16 02:00 Respiratory Rate 18 09/24/16 06:25 Blood Pressure 137/67 09/24/16 02:00 O2 Sat by Pulse Oximetry (%) 98 09/19/16 09:00 Constitutional: Yes: No Distress Eyes: Yes: WNL HENT: Yes: WNL Neck: Yes: Other (Tracheostomy site OK) Cardiovascular: Yes: Regular Rate and Rhythm Respiratory: Yes: Mechanically Ventilated ...Rectal Exam: Yes: Deferred Edema: No Labs: CBC, BMP 09/22/16 06:30 09/22/16 06:30 INR, PTT INR 1.14 (0.82-1.09) 09/07/16 22:45 Fibrinogen > 700.0 mg/dL (238-498) H 07/31/16 05:40 Assessment/Plan Wean from respirator
[2016-09-24] MEDS: morphine CARPU-JECT 2 MG/1 ML DISP.SYRIN IVPUSH PRN (10:19)
[2016-09-24] MEDS: ENOXAPARIN NA (PORCINE) 40 MG/0.4 ML DISP.SYRIN SQ SCH ×2 (10:19→23:24)
[2016-09-24] MEDS: FUROSEMIDE 20 MG TABLET (FP) GT SCH (10:19)
[2016-09-24] MEDS: POTASSIUM CHLORIDE ORAL LIQUID 20 MEQ/15 ML GT SCH ×2 (10:19→23:26)
[2016-09-24] MEDS: MAGNESIUM OXIDE 400 MG TABLET (FP) GT SCH ×2 (10:19→23:25)
[2016-09-24] MEDS: RANITIDINE HCL 150 MG/10 ML UNIT-DOSE CUP PO SCH ×2 (10:43→23:26)
[2016-09-24] MEDS: prednisoLONE ACETATE 1% OPHTH SUSP 5 ML BOTTLE OD SCH ×2 (10:43→23:26)
[2016-09-24] MEDS: TRIPLE LUMEN FLUSH 4 ML ML IVPUSH PRN (10:44)
[2016-09-24] MEDS: COLLAGENASE CLOSTRIDIUM HIST. 30 GRAMS TUBE TP SCH (11:20)
--- NOTE | 2016-09-24 14:04 | PN ---
Progress Note, Physician History of Present Illness: PULMONARY AWAKE ON VENT SUPPORT AC MODE,FEBRILE - Current Medication List Current Medications: Active Medications Acetaminophen (Tylenol Oral Solution -) 650 mg PO Q6H PRN PRN Reason: FEVER OR PAIN Last Admin: 09/24/16 03:18 Dose: 650 mg Collagenase (Santyl -) 1 applic TP DAILY [facility] Last Admin: 09/23/16 17:10 Dose: 1 applic Dextrose (D50w (Vial) -) 50 gm IVPUSH Q15M PRN PRN Reason: BLOOD SUGAR < 60 Enoxaparin Sodium (Lovenox -) 40 mg SQ BID [facility] Last Admin: 09/24/16 10:19 Dose: 40 mg Fentanyl (Duragesic 25mcg Patch -) 1 patch TD Q72H [facility] Last Admin: 09/23/16 15:22 Dose: 1 patch Furosemide (Lasix -) 20 mg GT DAILY [facility] Last Admin: 09/24/16 10:19 Dose: 20 mg IV Flush (Triple Lumen Flush) 4 ml IVPUSH PRN PRN PRN Reason: Protocol Last Admin: 09/24/16 10:44 Dose: 4 ml Insulin Aspart (Novolog Vial Sliding Scale -) 1 vial SQ BIDAC [facility] PRN Reason: Protocol Last Admin: 09/24/16 06:36 Dose: 8 units Insulin Detemir (Levemir Vial) 22 units SQ [facility] Magnesium Oxide (Mag-Ox -) 400 mg GT BID [facility] Last Admin: 09/24/16 10:19 Dose: 400 mg Miscellaneous (Duragesic Patch Waste) 1 each TD PRN PRN PRN Reason: PAIN Last Admin: 09/23/16 15:59 Dose: 1 each Morphine Sulfate (Morphine Injection -) 2 mg IVPUSH Q4H PRN PRN Reason: PAIN Last Admin: 09/24/16 10:19 Dose: 2 mg Ofloxacin (Ocuflox 0.3% Eye Drops -) 1 drop OD Q4HWA [facility] Last Admin: 09/24/16 10:42 Dose: 1 drop Potassium Chloride (Potassium Chloride Oral Liquid) 40 meq GT BID [facility] Last Admin: 09/24/16 10:19 Dose: 40 meq Prednisolone Acetate (Pred Forte 1% -) 1 drop OD BID [facility] Last Admin: 09/24/16 10:43 Dose: 1 drp Ranitidine HCl (Zantac Oral Solution -) 150 mg PO BID [facility] Last Admin: 09/24/16 10:43 Dose: 150 mg - Objective Vital Signs: Vital Signs Temperature 100 F H 09/24/16 10:00 Pulse Rate 96 H 09/24/16 10:00 Respiratory Rate 09/24/16 10:22 Blood Pressure 146/73 09/24/16 10:00 O2 Sat by Pulse Oximetry (%) 98 09/19/16 09:00 Constitutional: Yes: Well Nourished, Calm Eyes: Yes: WNL HENT: Yes: WNL Neck: Yes: Supple Cardiovascular: Yes: Regular Rate and Rhythm, S1, S2 Respiratory: Yes: Rhonchi (FEW SCATTERED RHONCHI) Gastrointestinal: Yes: Normal Bowel Sounds, Soft Extremities: Yes: Other (GANGRENE MARYBEL HANDS AND FEET) Edema: No Labs: CBC, BMP 09/22/16 06:30 Problem List - Problems (1) ZAHIRA (acute kidney injury) Code(s): N17.9 - ACUTE KIDNEY FAILURE, UNSPECIFIED (2) Acute metabolic encephalopathy Code(s): G93.41 - METABOLIC ENCEPHALOPATHY (3) Ischemia of extremity Code(s): I99.8 - OTHER DISORDER OF CIRCULATORY SYSTEM (4) Metabolic acidemia Code(s): E87.2 - ACIDOSIS (5) Perforated abdominal viscus Code(s): UAF7228 - (6) Sepsis Code(s): A41.9 - SEPSIS, UNSPECIFIED ORGANISM (7) Acute respiratory failure Code(s): J96.00 - ACUTE RESPIRATORY FAILURE, UNSP W HYPOXIA OR HYPERCAPNIA Assessment/Plan ASSESSMENT AND PLAN: Perforated Duodenal Ulcer Peritonitis s/p ex-lap/omental patch repair 07/16 Enterocutaneous Fistula Acute Respiratory Failure s/p Tracheostomy s/p Septic Shock DM DVT Gangrene s/p PEA Cardiac Arrest - Fio2 to keep Spo2 >90% - anticoagulation - morphine for comfort - enteral feeds as tolerated - volume assist control,pt is not a candidate for weaning at this time - DVT/GI prophylaxis - recommend palliative due to failure to wean, anticipated amputations, poor quality of life DR OSEI
--- NOTE | 2016-09-24 17:56 | PN ---
Progress Note, Physician History of Present Illness: no new events low grade temp - Current Medication List Current Medications: Active Medications Acetaminophen (Tylenol Oral Solution -) 650 mg PO Q6H PRN PRN Reason: FEVER OR PAIN Last Admin: 09/24/16 16:15 Dose: 650 mg Collagenase (Santyl -) 1 applic TP DAILY [facility] Last Admin: 09/24/16 11:20 Dose: 1 applic Dextrose (D50w (Vial) -) 50 gm IVPUSH Q15M PRN PRN Reason: BLOOD SUGAR < 60 Enoxaparin Sodium (Lovenox -) 40 mg SQ BID [facility] Last Admin: 09/24/16 10:19 Dose: 40 mg Fentanyl (Duragesic 25mcg Patch -) 1 patch TD Q72H [facility] Last Admin: 09/23/16 15:22 Dose: 1 patch Furosemide (Lasix -) 20 mg GT DAILY [facility] Last Admin: 09/24/16 10:19 Dose: 20 mg IV Flush (Triple Lumen Flush) 4 ml IVPUSH PRN PRN PRN Reason: Protocol Last Admin: 09/24/16 10:44 Dose: 4 ml Insulin Aspart (Novolog Vial Sliding Scale -) 1 vial SQ BIDAC [facility] PRN Reason: Protocol Last Admin: 09/24/16 16:30 Dose: 8 units Insulin Detemir (Levemir Vial) 22 units SQ [facility] Magnesium Oxide (Mag-Ox -) 400 mg GT BID [facility] Last Admin: 09/24/16 10:19 Dose: 400 mg Miscellaneous (Duragesic Patch Waste) 1 each TD PRN PRN PRN Reason: PAIN Last Admin: 09/23/16 15:59 Dose: 1 each Morphine Sulfate (Morphine Injection -) 2 mg IVPUSH Q4H PRN PRN Reason: PAIN Last Admin: 09/24/16 10:19 Dose: 2 mg Ofloxacin (Ocuflox 0.3% Eye Drops -) 1 drop OD Q4HWA [facility] Last Admin: 09/24/16 14:29 Dose: 1 drop Potassium Chloride (Potassium Chloride Oral Liquid) 40 meq GT BID [facility] Last Admin: 09/24/16 10:19 Dose: 40 meq Prednisolone Acetate (Pred Forte 1% -) 1 drop OD BID [facility] Last Admin: 09/24/16 10:43 Dose: 1 drp Ranitidine HCl (Zantac Oral Solution -) 150 mg PO BID [facility] Last Admin: 09/24/16 10:43 Dose: 150 mg - Objective Vital Signs: Vital Signs Temperature 100.6 F H 09/24/16 14:47 Pulse Rate 108 H 09/24/16 14:47 Respiratory Rate 13 09/24/16 14:47 Blood Pressure 124/65 09/24/16 14:47 O2 Sat by Pulse Oximetry (%) 98 09/19/16 09:00 Constitutional: Yes: Other Cardiovascular: Yes: Regular Rate and Rhythm Respiratory: Yes: Mechanically Ventilated, Poor Air Entry Gastrointestinal: Yes: Normal Bowel Sounds, Soft, Other (peg in place) Extremities: Yes: Other Neurological: Yes: Alert, Other Labs: CBC, BMP 09/22/16 06:30 09/22/16 06:30 INR, PTT INR 1.14 (0.82-1.09) 09/07/16 22:45 Fibrinogen > 700.0 mg/dL (238-498) H 07/31/16 05:40 Assessment/Plan Problem List - Problems (1) Abdominal pain Code(s): R10.9 - UNSPECIFIED ABDOMINAL PAIN Qualifiers: Qualified Code(s): R10.33 - Periumbilical pain (2) Perforated abdominal viscus Code(s): [id number] - (3) Perforated viscus Code(s): R19.8 - OTH SYMPTOMS AND SIGNS INVOLVING THE DGSTV SYS AND ABDOMEN (4) Hypertension Code(s): I10 - ESSENTIAL (PRIMARY) HYPERTENSION Qualifiers: Qualified Code(s): I10 - Essential (primary) hypertension lactic acidosis fevers generalized swelling gangrene of the tip of the fingers noted pseudomonas pneumonia plan continue current mgmt nutrition awaiting final plan
[2016-09-24] MEDS: INSULIN DETEMIR 100 UNITS/ML MDV SQ SCH (23:23)
[2016-09-25] MEDS: OFLOXACIN 0.3% OPHTHALMIC SOLUTION 5 ML BOTTLE OD SCH ×4 (06:34→22:00)
[2016-09-25] MEDS: INSULIN SLIDING SCALE (NOVOLOG) 1 VIAL SQ SCH ×2 (06:35→16:58)
[2016-09-25] MEDS ORDERED: PT OWN MED DRAWER 7, Y5N ONE (10:12)
[2016-09-25] MEDS: RANITIDINE HCL 150 MG/10 ML UNIT-DOSE CUP PO SCH ×2 (10:21→21:59)
[2016-09-25] MEDS: COLLAGENASE CLOSTRIDIUM HIST. 30 GRAMS TUBE TP SCH (10:21)
[2016-09-25] MEDS: MAGNESIUM OXIDE 400 MG TABLET (FP) GT SCH ×2 (10:21→21:59)
[2016-09-25] MEDS: ENOXAPARIN NA (PORCINE) 40 MG/0.4 ML DISP.SYRIN SQ SCH ×2 (10:21→21:59)
[2016-09-25] MEDS: FUROSEMIDE 20 MG TABLET (FP) GT SCH (10:21)
[2016-09-25] MEDS: prednisoLONE ACETATE 1% OPHTH SUSP 5 ML BOTTLE OD SCH ×2 (10:37→22:00)
[2016-09-25] MEDS: POTASSIUM CHLORIDE ORAL LIQUID 20 MEQ/15 ML GT SCH ×2 (11:00→21:59)
--- NOTE | 2016-09-25 11:47 | PN ---
Progress Note (short form) - Note Progress Note: PULMONARY Remains poorly responsive. Intermittent low grade temps. Last Vital Signs Temp Pulse Resp BP Pulse Ox 100.0 F H 100 H 19 98/66 98 09/25/16 10:00 09/25/16 10:10 09/25/16 10:10 09/25/16 10:00 09/25/16 10:10 Gen: vented, poorly responsive Heart: tachycardic, regular Lung: bilateral rhonchi Abd: soft, nontender, +fistula drainage Ext: multiple ulcers, dry gangrene of bilateral feet, fingers CBC, BMP 09/22/16 06:30 09/22/16 06:30 Active Medications Acetaminophen (Tylenol Oral Solution -) 650 mg PO Q6H PRN PRN Reason: FEVER OR PAIN Last Admin: 09/24/16 16:15 Dose: 650 mg Collagenase (Santyl -) 1 applic TP DAILY [facility] Last Admin: 09/25/16 10:21 Dose: 1 applic Dextrose (D50w (Vial) -) 50 gm IVPUSH Q15M PRN PRN Reason: BLOOD SUGAR < 60 Enoxaparin Sodium (Lovenox -) 40 mg SQ BID [facility] Last Admin: 09/25/16 10:21 Dose: 40 mg Fentanyl (Duragesic 25mcg Patch -) 1 patch TD Q72H [facility] Last Admin: 09/23/16 15:22 Dose: 1 patch Furosemide (Lasix -) 20 mg GT DAILY [facility] Last Admin: 09/25/16 10:21 Dose: 20 mg IV Flush (Triple Lumen Flush) 4 ml IVPUSH PRN PRN PRN Reason: Protocol Last Admin: 09/24/16 10:44 Dose: 4 ml Insulin Aspart (Novolog Vial Sliding Scale -) 1 vial SQ BIDAC [facility] PRN Reason: Protocol Last Admin: 09/25/16 06:35 Dose: 6 units Insulin Detemir (Levemir Vial) 22 units SQ HS [facility] Last Admin: 09/24/16 23:23 Dose: 22 units Magnesium Oxide (Mag-Ox -) 400 mg GT BID [facility] Last Admin: 09/25/16 10:21 Dose: 400 mg Miscellaneous (Duragesic Patch Waste) 1 each TD PRN PRN PRN Reason: PAIN Last Admin: 09/23/16 15:59 Dose: 1 each Ofloxacin (Ocuflox 0.3% Eye Drops -) 1 drop OD Q4HWA [facility] Last Admin: 09/25/16 10:37 Dose: 1 drop Potassium Chloride (Potassium Chloride Oral Liquid) 40 meq GT BID [facility] Last Admin: 09/24/16 23:26 Dose: 40 meq Prednisolone Acetate (Pred Forte 1% -) 1 drop OD BID [facility] Last Admin: 09/25/16 10:37 Dose: 1 drp Ranitidine HCl (Zantac Oral Solution -) 150 mg PO BID [facility] Last Admin: 09/25/16 10:21 Dose: 150 mg A/P Perforated Duodenal Ulcer Peritonitis s/p ex-lap/omental patch repair 07/16 Enterocutaneous Fistula Acute Respiratory Failure s/p Tracheostomy s/p Septic Shock DM DVT Gangrene s/p PEA Cardiac Arrest - continue anticoagulation - morphine for comfort - enteral feeds as tolerated - spontaneous breathing trials as tolerated - DVT/GI prophylaxis - prognosis is poor, continue discussions regarding advanced directives and goals of care - recommend palliative due to failure to wean, anticipated amputations, poor quality of life
--- NOTE | 2016-09-25 12:23 | PN ---
Progress Note, Physician Chief Complaint: Remained at her base line , , low grade fever , opens eye to verbal command, on Vent Saturating well. FS are better controlled, no extremities movement s/p PEA cardiac arrest reviewed now on Vent. remained afebrile. History of Present Illness: 65-year-old F H/O hypertension, hypercholesterolemia, T2DM, ETOH abuse, was presented to ED with abd pain and weight loss underwent exploratory laprotomy for perforated duodenal ulcer on 07/21/16 developed hypotention and sepsis intubate now on trach, colostomy and TPN.on Vent and IV abxfor [place]., abdominal wound still pus discharge with. FS are better controlled underwent G Tube placement tolerating feeding.patient had PEA arrested with sepsis.Now resolved transferred to floor. - Current Medication List Current Medications: Active Medications Acetaminophen (Tylenol Oral Solution -) 650 mg PO Q6H PRN PRN Reason: FEVER OR PAIN Last Admin: 09/24/16 16:15 Dose: 650 mg Collagenase (Santyl -) 1 applic TP DAILY [facility] Last Admin: 09/25/16 10:21 Dose: 1 applic Dextrose (D50w (Vial) -) 50 gm IVPUSH Q15M PRN PRN Reason: BLOOD SUGAR < 60 Enoxaparin Sodium (Lovenox -) 40 mg SQ BID [facility] Last Admin: 09/25/16 10:21 Dose: 40 mg Fentanyl (Duragesic 25mcg Patch -) 1 patch TD Q72H [facility] Last Admin: 09/23/16 15:22 Dose: 1 patch Furosemide (Lasix -) 20 mg GT DAILY [facility] Last Admin: 09/25/16 10:21 Dose: 20 mg IV Flush (Triple Lumen Flush) 4 ml IVPUSH PRN PRN PRN Reason: Protocol Last Admin: 09/24/16 10:44 Dose: 4 ml Insulin Aspart (Novolog Vial Sliding Scale -) 1 vial SQ [facility]IDAC [facility] PRN Reason: Protocol Last Admin: 09/25/16 06:35 Dose: 6 units Insulin Detemir (Levemir Vial) 22 units SQ HS [facility] Last Admin: 09/24/16 23:23 Dose: 22 units Magnesium Oxide (Mag-Ox -) 400 mg GT BID [facility] Last Admin: 09/25/16 10:21 Dose: 400 mg Miscellaneous (Duragesic Patch Waste) 1 each TD PRN PRN PRN Reason: PAIN Last Admin: 09/23/16 15:59 Dose: 1 each Ofloxacin (Ocuflox 0.3% Eye Drops -) 1 drop OD Q4HWA [facility] Last Admin: 09/25/16 10:37 Dose: 1 drop Potassium Chloride (Potassium Chloride Oral Liquid) 40 meq GT BID [facility] Last Admin: 09/24/16 23:26 Dose: 40 meq Prednisolone Acetate (Pred Forte 1% -) 1 drop OD BID [facility] Last Admin: 09/25/16 10:37 Dose: 1 drp Ranitidine HCl (Zantac Oral Solution -) 150 mg PO BID [facility] Last Admin: 09/25/16 10:21 Dose: 150 mg - Objective Vital Signs: Vital Signs Temperature 100.0 F H 09/25/16 10:00 Pulse Rate 100 H 09/25/16 10:10 Respiratory Rate 19 09/25/16 10:10 Blood Pressure 98/66 09/25/16 10:00 O2 Sat by Pulse Oximetry (%) 98 09/25/16 10:10 Patient remained altered minimally responsive, on Vent HEENT: Trach at the place on Vent , need intermittent Vent support, mm most, anemia NECK; IJJ at place, no JVD CHEST: Good AE minimal crepts ABD; Colostomy bag at place, discharge from abd fistula, discharge +, BS + , EXT; extensive edema, skin peeling and gangrene of distal extremities MOLD BREAKER; 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 Derm; Extensive skin peeling and gangrene of fingers and toes, p Labs: CBC, BMP 09/22/16 06:30 09/22/16 06:30 INR, PTT INR 1.14 (0.82-1.09) 09/07/16 22:45 Fibrinogen > 700.0 mg/dL (238-498) H 07/31/16 05:40 Problem List - Problems (1) Perforated abdominal viscus (2) Acute metabolic encephalopathy Code(s): G93.41 - METABOLIC ENCEPHALOPATHY (3) Ischemia of extremity Code(s): I99.8 - OTHER DISORDER OF CIRCULATORY SYSTEM (4) Sepsis Code(s): A41.9 - SEPSIS, UNSPECIFIED ORGANISM (5) Severe malnutrition Code(s): E43 - UNSPECIFIED SEVERE PROTEIN-CALORIE MALNUTRITION (6) Diabetes mellitus Code(s): E11.9 - TYPE 2 DIABETES MELLITUS WITHOUT COMPLICATIONS Qualifiers: Diabetes mellitus type: type 2 (7) Cardiac arrest due to respiratory disorder Code(s): J98.9 - RESPIRATORY DISORDER, UNSPECIFIED I46.8 - CARDIAC ARREST DUE TO OTHER UNDERLYING CONDITION
--- NOTE | 2016-09-25 14:57 | PN ---
Progress Note, Physician History of Present Illness: patient has started spiking fevers otherwise status quo still o ventilator minimal secretions - Current Medication List Current Medications: Active Medications Acetaminophen (Tylenol Oral Solution -) 650 mg PO Q6H PRN PRN Reason: FEVER OR PAIN Last Admin: 09/24/16 16:15 Dose: 650 mg Collagenase (Santyl -) 1 applic TP DAILY [facility] Last Admin: 09/25/16 10:21 Dose: 1 applic Dextrose (D50w (Vial) -) 50 gm IVPUSH Q15M PRN PRN Reason: BLOOD SUGAR < 60 Enoxaparin Sodium (Lovenox -) 40 mg SQ BID [facility] Last Admin: 09/25/16 10:21 Dose: 40 mg Fentanyl (Duragesic 25mcg Patch -) 1 patch TD Q72H [facility] Last Admin: 09/23/16 15:22 Dose: 1 patch Furosemide (Lasix -) 20 mg GT DAILY [facility] Last Admin: 09/25/16 10:21 Dose: 20 mg IV Flush (Triple Lumen Flush) 4 ml IVPUSH PRN PRN PRN Reason: Protocol Last Admin: 09/24/16 10:44 Dose: 4 ml Insulin Aspart (Novolog Vial Sliding Scale -) 1 vial SQ BIDAC [facility] PRN Reason: Protocol Last Admin: 09/25/16 06:35 Dose: 6 units Insulin Detemir (Levemir Vial) 22 units SQ HS [facility] Last Admin: 09/24/16 23:23 Dose: 22 units Magnesium Oxide (Mag-Ox -) 400 mg GT BID [facility] Last Admin: 09/25/16 10:21 Dose: 400 mg Miscellaneous (Duragesic Patch Waste) 1 each TD PRN PRN PRN Reason: PAIN Last Admin: 09/23/16 15:59 Dose: 1 each Ofloxacin (Ocuflox 0.3% Eye Drops -) 1 drop OD Q4HWA [facility] Last Admin: 09/25/16 10:37 Dose: 1 drop Potassium Chloride (Potassium Chloride Oral Liquid) 40 meq GT BID [facility] Last Admin: 09/24/16 23:26 Dose: 40 meq Prednisolone Acetate (Pred Forte 1% -) 1 drop OD BID [facility] Last Admin: 09/25/16 10:37 Dose: 1 drp Ranitidine HCl (Zantac Oral Solution -) 150 mg PO BID [facility] Last Admin: 09/25/16 10:21 Dose: 150 mg - Objective Vital Signs: Vital Signs Temperature 101.9 F H 09/25/16 14:20 Pulse Rate 100 H 09/25/16 14:20 Respiratory Rate 19 09/25/16 14:41 Blood Pressure 110/51 09/25/16 14:20 O2 Sat by Pulse Oximetry (%) 98 09/25/16 10:10 Constitutional: Yes: No Distress, Calm Cardiovascular: Yes: Regular Rate and Rhythm Respiratory: Yes: Mechanically Ventilated, Poor Air Entry, Rhonchi Gastrointestinal: Yes: Normal Bowel Sounds, Soft, Other (peg tube with leakage outside) Musculoskeletal: Yes: Other Extremities: Yes: Other Neurological: Yes: Alert, Oriented Psychiatric: Yes: Alert, Oriented Labs: CBC, BMP 09/22/16 06:30 09/22/16 06:30 INR, PTT INR 1.14 (0.82-1.09) 09/07/16 22:45 Fibrinogen > 700.0 mg/dL (238-498) H 07/31/16 05:40 Assessment/Plan Problem List - Problems (1) Abdominal pain Code(s): R10.9 - UNSPECIFIED ABDOMINAL PAIN Qualifiers: Qualified Code(s): R10.33 - Periumbilical pain (2) Perforated abdominal viscus Code(s): ANA1106 - (3) Perforated viscus Code(s): R19.8 - OTH SYMPTOMS AND SIGNS INVOLVING THE DGSTV SYS AND ABDOMEN (4) Hypertension Code(s): I10 - ESSENTIAL (PRIMARY) HYPERTENSION Qualifiers: Qualified Code(s): I10 - Essential (primary) hypertension lactic acidosis fevers generalized swelling gangrene of the tip of the fingers noted pseudomonas pneumonia plan continue current mgmt nutrition will send blood cx will do cbc and bmp
[2016-09-25] MEDS: ACETAMINOPHEN 650 MG/20.3 ML ORAL SOLUTION (CUPS) PO PRN (14:59)
[2016-09-25] MEDS ORDERED: INSULIN (NOVOLOG) ASPART 100 UNITS/ML 10ML VIAL ONE (16:54)
[2016-09-25] MEDS: INSULIN DETEMIR 100 UNITS/ML MDV SQ SCH (22:06)
[2016-09-26] MEDS ORDERED: INSULIN (NOVOLOG) ASPART 100 UNITS/ML 10ML VIAL ONE (06:03)
[2016-09-26] MEDS: INSULIN SLIDING SCALE (NOVOLOG) 1 VIAL SQ SCH ×2 (06:36→16:37)
[2016-09-26] MEDS: ACETAMINOPHEN 650 MG/20.3 ML ORAL SOLUTION (CUPS) PO PRN ×2 (06:36→18:23)
[2016-09-26] MEDS: OFLOXACIN 0.3% OPHTHALMIC SOLUTION 5 ML BOTTLE OD SCH ×6 (06:36→22:56)
[2016-09-26 07:41] LABS: BASOPHIL 0.7 % (0-2.0); MCH 27.9 pg (25.7-33.7); MCHC 32.2 g/dl (32.0-36.0); MEAN CELL VOLUME 86.8 fl (80-96); MEAN PLT VOLUME 8.6 fl (7.5-11.1); NEUTROPHILS 54.4 % (42.8-82.8); PLATELET COUNT 371 K/MM3 (134-434); RDW 16.6 % (11.6-15.6); WHITE BLOOD COUNT 10.8 K/mm3 (4.0-10.0)
[2016-09-26 08:15] LABS: ALBUMIN 2.3 g/dl (3.4-5.0); ALK PHOS 101 U/L (45-117); ANION GAP 7 (8-16); BILIRUBIN,TOTAL 0.6 mg/dL (0.2-1.0); CALCIUM 10.2 mg/dL (8.5-10.1); CO2 31 mmol/L (21-32); CREATININE 0.4 mg/dL (0.55-1.02); GLUCOSE,RANDOM 293 mg/dL (74-106); SGOT/AST 15 U/L (15-37); SGPT/ALT 14 U/L (12-78); TOT PROT 7.1 g/dl (6.4-8.2)
--- NOTE | 2016-09-26 08:41 | PN ---
Progress Note, Physician Chief Complaint: Awake on respirator - Current Medication List Current Medications: Active Medications Acetaminophen (Tylenol Oral Solution -) 650 mg PO Q6H PRN PRN Reason: FEVER OR PAIN Last Admin: 09/26/16 06:36 Dose: 650 mg Collagenase (Santyl -) 1 applic TP DAILY [facility] Last Admin: 09/25/16 10:21 Dose: 1 applic Dextrose (D50w (Vial) -) 50 gm IVPUSH Q15M PRN PRN Reason: BLOOD SUGAR < 60 Enoxaparin Sodium (Lovenox -) 40 mg SQ BID [facility] Last Admin: 09/25/16 21:59 Dose: 40 mg Fentanyl (Duragesic 25mcg Patch -) 1 patch TD Q72H [facility] Last Admin: 09/23/16 15:22 Dose: 1 patch Furosemide (Lasix -) 20 mg GT DAILY [facility] Last Admin: 09/25/16 10:21 Dose: 20 mg IV Flush (Triple Lumen Flush) 4 ml IVPUSH PRN PRN PRN Reason: Protocol Last Admin: 09/24/16 10:44 Dose: 4 ml Insulin Aspart (Novolog Vial Sliding Scale -) 1 vial SQ [facility] PRN Reason: Protocol Last Admin: 09/26/16 06:36 Dose: 6 units Insulin Detemir (Levemir Vial) 22 units SQ HS [facility] Last Admin: 09/25/16 22:06 Dose: 22 units Magnesium Oxide (Mag-Ox -) 400 mg GT BID [facility] Last Admin: 09/25/16 21:59 Dose: 400 mg Miscellaneous (Duragesic Patch Waste) 1 each TD PRN PRN PRN Reason: PAIN Last Admin: 09/23/16 15:59 Dose: 1 each Ofloxacin (Ocuflox 0.3% Eye Drops -) 1 drop OD Q4HWA [facility] Last Admin: 09/26/16 06:36 Dose: 1 drop Potassium Chloride (Potassium Chloride Oral Liquid) 40 meq GT BID [facility] Last Admin: 09/25/16 21:59 Dose: 40 meq Prednisolone Acetate (Pred Forte 1% -) 1 drop OD BID [facility] Last Admin: 09/25/16 22:00 Dose: 1 drp Ranitidine HCl (Zantac Oral Solution -) 150 mg PO BID [facility] Last Admin: 09/25/16 21:59 Dose: 150 mg - Objective Vital Signs: Vital Signs Temperature 100.6 F H 09/26/16 06:00 Pulse Rate 99 H 09/26/16 06:00 Respiratory Rate 21 09/26/16 06:15 Blood Pressure 151/65 09/26/16 06:00 O2 Sat by Pulse Oximetry (%) 98 09/25/16 10:10 Constitutional: Yes: No Distress Eyes: Yes: WNL HENT: Yes: WNL Neck: Yes: WNL Cardiovascular: Yes: Regular Rate and Rhythm Respiratory: Yes: Mechanically Ventilated ...Rectal Exam: Yes: Deferred Breast(s): Yes: WNL Musculoskeletal: Yes: Muscle Weakness Neurological: Yes: Alert Labs: CBC, BMP 09/26/16 06:00 09/26/16 06:00 INR, PTT INR 1.14 (0.82-1.09) 09/07/16 22:45 Fibrinogen > 700.0 mg/dL (238-498) H 07/31/16 05:40 Assessment/Plan Will speak to pulmonary regarding
[2016-09-26] MEDS: POTASSIUM CHLORIDE ORAL LIQUID 20 MEQ/15 ML GT SCH ×3 (10:20→22:17)
[2016-09-26] MEDS: FUROSEMIDE 20 MG TABLET (FP) GT SCH (10:41)
[2016-09-26] MEDS: MAGNESIUM OXIDE 400 MG TABLET (FP) GT SCH ×2 (10:41→22:16)
[2016-09-26] MEDS: ENOXAPARIN NA (PORCINE) 40 MG/0.4 ML DISP.SYRIN SQ SCH ×2 (10:41→22:16)
[2016-09-26] MEDS: RANITIDINE HCL 150 MG/10 ML UNIT-DOSE CUP PO SCH ×2 (10:41→22:16)
[2016-09-26] MEDS: prednisoLONE ACETATE 1% OPHTH SUSP 5 ML BOTTLE OD SCH ×2 (10:42→22:51)
--- NOTE | 2016-09-26 12:25 | PN ---
Progress Note, Physician History of Present Illness: pulmonary awake,on vent support ac mode - Current Medication List Current Medications: Active Medications Acetaminophen (Tylenol Oral Solution -) 650 mg PO Q6H PRN PRN Reason: FEVER OR PAIN Last Admin: 09/26/16 06:36 Dose: 650 mg Collagenase (Santyl -) 1 applic TP DAILY [facility] Last Admin: 09/25/16 10:21 Dose: 1 applic Dextrose (D50w (Vial) -) 50 gm IVPUSH Q15M PRN PRN Reason: BLOOD SUGAR < 60 Enoxaparin Sodium (Lovenox -) 40 mg SQ BID [facility] Last Admin: 09/26/16 10:41 Dose: 40 mg Fentanyl (Duragesic 25mcg Patch -) 1 patch TD Q72H [facility] Last Admin: 09/23/16 15:22 Dose: 1 patch Furosemide (Lasix -) 20 mg GT DAILY [facility] Last Admin: 09/26/16 10:41 Dose: 20 mg IV Flush (Triple Lumen Flush) 4 ml IVPUSH PRN PRN PRN Reason: Protocol Last Admin: 09/24/16 10:44 Dose: 4 ml Insulin Aspart (Novolog Vial Sliding Scale -) 1 vial SQ BIDAC [facility] PRN Reason: Protocol Last Admin: 09/26/16 06:36 Dose: 6 units Insulin Detemir (Levemir Vial) 22 units SQ HS [facility] Last Admin: 09/25/16 22:06 Dose: 22 units Magnesium Oxide (Mag-Ox -) 400 mg GT BID [facility] Last Admin: 09/26/16 10:41 Dose: 400 mg Miscellaneous (Duragesic Patch Waste) 1 each TD PRN PRN PRN Reason: PAIN Last Admin: 09/23/16 15:59 Dose: 1 each Morphine Sulfate (Morphine Injection -) 2 mg IVPUSH Q4H PRN PRN Reason: PAIN Ofloxacin (Ocuflox 0.3% Eye Drops -) 1 drop OD Q4HWA [facility] Last Admin: 09/26/16 10:41 Dose: 1 drop Potassium Chloride (Potassium Chloride Oral Liquid) 40 meq GT BID [facility] Last Admin: 09/25/16 21:59 Dose: 40 meq Prednisolone Acetate (Pred Forte 1% -) 1 drop OD BID [facility] Last Admin: 09/26/16 10:42 Dose: 1 drp Ranitidine HCl (Zantac Oral Solution -) 150 mg PO BID [facility] Last Admin: 09/26/16 10:41 Dose: 150 mg - Objective Vital Signs: Vital Signs Temperature 99.3 F 09/26/16 10:00 Pulse Rate 98 H 09/26/16 10:00 Respiratory Rate 19 09/26/16 10:44 Blood Pressure 133/66 09/26/16 10:00 O2 Sat by Pulse Oximetry (%) 98 09/25/16 10:10 Constitutional: Yes: Calm, Thin Eyes: Yes: WNL HENT: Yes: WNL Neck: Yes: Supple (trach) Cardiovascular: Yes: Regular Rate and Rhythm, S1 Respiratory: Yes: Rhonchi (few rhonchi) Gastrointestinal: Yes: Normal Bowel Sounds, Soft Extremities: Yes: Other (bilateral gangrene hands and feet) Edema: No Labs: CBC, BMP 09/26/16 06:00 09/26/16 06:00 INR, PTT INR 1.14 (0.82-1.09) 09/07/16 22:45 Fibrinogen > 700.0 mg/dL (238-498) H 07/31/16 05:40 Problem List - Problems (1) ZAHIRA (acute kidney injury) Code(s): N17.9 - ACUTE KIDNEY FAILURE, UNSPECIFIED (2) Acute metabolic encephalopathy Code(s): G93.41 - METABOLIC ENCEPHALOPATHY (3) Ischemia of extremity Code(s): I99.8 - OTHER DISORDER OF CIRCULATORY SYSTEM (4) Metabolic acidemia Code(s): E87.2 - ACIDOSIS (5) Perforated abdominal viscus Code(s): GCU5372 - (6) Sepsis Code(s): A41.9 - SEPSIS, UNSPECIFIED ORGANISM (7) Acute respiratory failure Code(s): J96.00 - ACUTE RESPIRATORY FAILURE, UNSP W HYPOXIA OR HYPERCAPNIA Assessment/Plan ASSESSMENT AND PLAN: Perforated Duodenal Ulcer Peritonitis s/p ex-lap/omental patch repair 07/16 Enterocutaneous Fistula Acute Respiratory Failure s/p Tracheostomy s/p Septic Shock DM DVT Gangrene s/p PEA Cardiac Arrest - Fio2 to keep Spo2 >90% - anticoagulation - morphine for comfort - enteral feeds as tolerated - weaning trails as tolerated - DVT/GI prophylaxis - recommend palliative due to failure to wean, anticipated amputations, poor quality of life DR OSEI
[2016-09-26] MEDS: COLLAGENASE CLOSTRIDIUM HIST. 30 GRAMS TUBE TP SCH (15:18)
--- NOTE | 2016-09-26 15:37 | PN ---
Progress Note, Physician History of Present Illness: low grade temp clinically no change - Current Medication List Current Medications: Active Medications Acetaminophen (Tylenol Oral Solution -) 650 mg PO Q6H PRN PRN Reason: FEVER OR PAIN Last Admin: 09/26/16 06:36 Dose: 650 mg Collagenase (Santyl -) 1 applic TP DAILY [facility] Last Admin: 09/26/16 15:18 Dose: 1 applic Dextrose (D50w (Vial) -) 50 gm IVPUSH Q15M PRN PRN Reason: BLOOD SUGAR < 60 Enoxaparin Sodium (Lovenox -) 40 mg SQ BID [facility] Last Admin: 09/26/16 10:41 Dose: 40 mg Fentanyl (Duragesic 25mcg Patch -) 1 patch TD Q72H [facility] Last Admin: 09/23/16 15:22 Dose: 1 patch Furosemide (Lasix -) 20 mg GT DAILY [facility] Last Admin: 09/26/16 10:41 Dose: 20 mg IV Flush (Triple Lumen Flush) 4 ml IVPUSH PRN PRN PRN Reason: Protocol Last Admin: 09/24/16 10:44 Dose: 4 ml Insulin Aspart (Novolog Vial Sliding Scale -) 1 vial SQ BIDAC [facility] PRN Reason: Protocol Last Admin: 09/26/16 06:36 Dose: 6 units Insulin Detemir (Levemir Vial) 22 units SQ HS [facility] Last Admin: 09/25/16 22:06 Dose: 22 units Magnesium Oxide (Mag-Ox -) 400 mg GT BID [facility] Last Admin: 09/26/16 10:41 Dose: 400 mg Miscellaneous (Duragesic Patch Waste) 1 each TD PRN PRN PRN Reason: PAIN Last Admin: 09/23/16 15:59 Dose: 1 each Morphine Sulfate (Morphine Injection -) 2 mg IVPUSH Q4H PRN PRN Reason: PAIN Ofloxacin (Ocuflox 0.3% Eye Drops -) 1 drop OD Q4HWA [facility] Last Admin: 09/26/16 13:19 Dose: 1 drop Potassium Chloride (Potassium Chloride Oral Liquid) 40 meq GT BID [facility] Last Admin: 09/26/16 13:20 Dose: 40 meq Prednisolone Acetate (Pred Forte 1% -) 1 drop OD BID [facility] Last Admin: 09/26/16 10:42 Dose: 1 drp Ranitidine HCl (Zantac Oral Solution -) 150 mg PO BID [facility] Last Admin: 09/26/16 10:41 Dose: 150 mg - Objective Vital Signs: Vital Signs Temperature 98.9 F 09/26/16 15:28 Pulse Rate 99 H 09/26/16 15:28 Respiratory Rate 16 09/26/16 15:28 Blood Pressure 119/57 09/26/16 15:28 O2 Sat by Pulse Oximetry (%) 98 09/25/16 10:10 Constitutional: Yes: No Distress, Calm Cardiovascular: Yes: Regular Rate and Rhythm Respiratory: Yes: Mechanically Ventilated, Other Gastrointestinal: Yes: Normal Bowel Sounds, Soft, Other (peg tube in place) Musculoskeletal: Yes: WNL Extremities: Yes: WNL Neurological: Yes: Alert Psychiatric: Yes: Alert Labs: CBC, BMP 09/26/16 06:00 09/26/16 06:00 INR, PTT INR 1.14 (0.82-1.09) 09/07/16 22:45 Fibrinogen > 700.0 mg/dL (238-498) H 07/31/16 05:40 Assessment/Plan Problem List - Problems (1) Abdominal pain Code(s): R10.9 - UNSPECIFIED ABDOMINAL PAIN Qualifiers: Qualified Code(s): R10.33 - Periumbilical pain (2) Perforated abdominal viscus Code(s): EPU5228 - (3) Perforated viscus Code(s): R19.8 - OTH SYMPTOMS AND SIGNS INVOLVING THE DGSTV SYS AND ABDOMEN (4) Hypertension Code(s): I10 - ESSENTIAL (PRIMARY) HYPERTENSION Qualifiers: Qualified Code(s): I10 - Essential (primary) hypertension lactic acidosis fevers generalized swelling gangrene of the tip of the fingers noted pseudomonas pneumonia plan continue current mgmt nutrition await for blood cx no abx at this time
[2016-09-26] MEDS: fentaNYL 25mcg/hr PATCH.TD72 TD SCH (15:39)
[2016-09-26] MEDS: FENTANYL PATCH WASTE TD PRN (15:41)
[2016-09-26] MEDS: INSULIN DETEMIR 100 UNITS/ML MDV SQ SCH (22:21)
[2016-09-27] MEDS: INSULIN SLIDING SCALE (NOVOLOG) 1 VIAL SQ SCH ×2 (06:01→17:29)
[2016-09-27] MEDS: OFLOXACIN 0.3% OPHTHALMIC SOLUTION 5 ML BOTTLE OD SCH ×5 (06:02→22:59)
--- NOTE | 2016-09-27 08:46 | PN ---
Progress Note, Physician Chief Complaint: On respirator - Current Medication List Current Medications: Active Medications Acetaminophen (Tylenol Oral Solution -) 650 mg PO Q6H PRN PRN Reason: FEVER OR PAIN Last Admin: 09/26/16 18:23 Dose: 650 mg Collagenase (Santyl -) 1 applic TP DAILY [facility] Last Admin: 09/26/16 15:18 Dose: 1 applic Dextrose (D50w (Vial) -) 50 gm IVPUSH Q15M PRN PRN Reason: BLOOD SUGAR < 60 Enoxaparin Sodium (Lovenox -) 40 mg SQ BID [facility] Last Admin: 09/26/16 22:16 Dose: 40 mg Fentanyl (Duragesic 25mcg Patch -) 1 patch TD Q72H [facility] Last Admin: 09/26/16 15:39 Dose: 1 patch Furosemide (Lasix -) 20 mg GT DAILY [facility] Last Admin: 09/26/16 10:41 Dose: 20 mg IV Flush (Triple Lumen Flush) 4 ml IVPUSH PRN PRN PRN Reason: Protocol Last Admin: 09/24/16 10:44 Dose: 4 ml Insulin Aspart (Novolog Vial Sliding Scale -) 1 vial SQ BIDAC [facility] PRN Reason: Protocol Last Admin: 09/27/16 06:01 Dose: 8 units Insulin Detemir (Levemir Vial) 22 units SQ HS [facility] Last Admin: 09/26/16 22:21 Dose: 22 units Magnesium Oxide (Mag-Ox -) 400 mg GT BID [facility] Last Admin: 09/26/16 22:16 Dose: 400 mg Miscellaneous (Duragesic Patch Waste) 1 each TD PRN PRN PRN Reason: PAIN Last Admin: 09/26/16 15:41 Dose: 1 each Morphine Sulfate (Morphine Injection -) 2 mg IVPUSH Q4H PRN PRN Reason: PAIN Ofloxacin (Ocuflox 0.3% Eye Drops -) 1 drop OD Q4HWA [facility] Last Admin: 09/27/16 06:02 Dose: 1 drop Potassium Chloride (Potassium Chloride Oral Liquid) 40 meq GT BID [facility] Last Admin: 09/26/16 22:17 Dose: 40 meq Prednisolone Acetate (Pred Forte 1% -) 1 drop OD BID [facility] Last Admin: 09/26/16 22:51 Dose: 1 drp Ranitidine HCl (Zantac Oral Solution -) 150 mg PO BID [facility] Last Admin: 09/26/16 22:16 Dose: 150 mg - Objective Vital Signs: Vital Signs Temperature 99 F 09/27/16 02:00 Pulse Rate 101 H 09/27/16 06:00 Respiratory Rate 15 09/27/16 06:55 Blood Pressure 139/77 09/27/16 06:00 O2 Sat by Pulse Oximetry (%) 98 09/25/16 10:10 Constitutional: Yes: Calm Eyes: Yes: WNL HENT: Yes: WNL Neck: Yes: WNL Cardiovascular: Yes: WNL Respiratory: Yes: Mechanically Ventilated Gastrointestinal: Yes: Soft ...Rectal Exam: Yes: WNL Psychiatric: Yes: Other (Awake not responding to verbal commands) Labs: CBC, BMP 09/26/16 06:00 09/26/16 06:00 INR, PTT INR 1.14 (0.82-1.09) 09/07/16 22:45 Fibrinogen > 700.0 mg/dL (238-498) H 07/31/16 05:40 Assessment/Plan Continue same trt
[2016-09-27] MEDS: ENOXAPARIN NA (PORCINE) 40 MG/0.4 ML DISP.SYRIN SQ SCH ×2 (10:28→22:58)
[2016-09-27] MEDS: MAGNESIUM OXIDE 400 MG TABLET (FP) GT SCH ×2 (10:29→22:58)
[2016-09-27] MEDS: COLLAGENASE CLOSTRIDIUM HIST. 30 GRAMS TUBE TP SCH (10:29)
[2016-09-27] MEDS: FUROSEMIDE 20 MG TABLET (FP) GT SCH (10:29)
[2016-09-27] MEDS: RANITIDINE HCL 150 MG/10 ML UNIT-DOSE CUP PO SCH ×2 (10:29→22:58)
[2016-09-27] MEDS: prednisoLONE ACETATE 1% OPHTH SUSP 5 ML BOTTLE OD SCH ×2 (10:30→22:59)
--- NOTE | 2016-09-27 11:34 | PN ---
Progress Note (short form) - Note Progress Note: NAD on AC Mode of vent. Not tolerating weaning trials, which we anticipated. Intermittent low grade temps. Intake & Output 09/24/16 09/25/16 09/26/16 09/27/16 23:59 23:59 23:59 23:59 Intake Total 2280 1980 2030 1050 Output Total 500 30 100 Balance 1780 1950 1930 1050 Last Vital Signs Temp Pulse Resp BP Pulse Ox 99 F 94 H 20 120/57 98 09/27/16 10:00 09/27/16 10:00 09/27/16 10:35 09/27/16 10:00 09/25/16 10:10 Active Medications Acetaminophen (Tylenol Oral Solution -) 650 mg PO Q6H PRN PRN Reason: FEVER OR PAIN Last Admin: 09/26/16 18:23 Dose: 650 mg Collagenase (Santyl -) 1 applic TP DAILY [facility] Last Admin: 09/27/16 10:29 Dose: 1 applic Dextrose (D50w (Vial) -) 50 gm IVPUSH Q15M PRN PRN Reason: BLOOD SUGAR < 60 Enoxaparin Sodium (Lovenox -) 40 mg SQ BID [facility] Last Admin: 09/27/16 10:28 Dose: 40 mg Fentanyl (Duragesic 25mcg Patch -) 1 patch TD Q72H [facility] Last Admin: 09/26/16 15:39 Dose: 1 patch Furosemide (Lasix -) 20 mg GT DAILY [facility] Last Admin: 09/27/16 10:29 Dose: 20 mg IV Flush (Triple Lumen Flush) 4 ml IVPUSH PRN PRN PRN Reason: Protocol Last Admin: 09/24/16 10:44 Dose: 4 ml Insulin Aspart (Novolog Vial Sliding Scale -) 1 vial SQ BIDAC [facility] PRN Reason: Protocol Last Admin: 09/27/16 06:01 Dose: 8 units Insulin Detemir (Levemir Vial) 22 units SQ HS [facility] Last Admin: 09/26/16 22:21 Dose: 22 units Magnesium Oxide (Mag-Ox -) 400 mg GT BID [facility] Last Admin: 09/27/16 10:29 Dose: 400 mg Miscellaneous (Duragesic Patch Waste) 1 each TD PRN PRN PRN Reason: PAIN Last Admin: 09/26/16 15:41 Dose: 1 each Morphine Sulfate (Morphine Injection -) 2 mg IVPUSH Q4H PRN PRN Reason: PAIN Ofloxacin (Ocuflox 0.3% Eye Drops -) 1 drop OD Q4HWA [facility] Last Admin: 09/27/16 10:30 Dose: 1 drop Potassium Chloride (Potassium Chloride Oral Liquid) 40 meq GT BID [facility] Last Admin: 09/26/16 22:17 Dose: 40 meq Prednisolone Acetate (Pred Forte 1% -) 1 drop OD BID [facility] Last Admin: 09/27/16 10:30 Dose: 1 drp Ranitidine HCl (Zantac Oral Solution -) 150 mg PO BID [facility] Last Admin: 09/27/16 10:29 Dose: 150 mg Gen: NAD, vented Heart: S1S2 Lung: bilateral scattered rhonchi Abd: soft, nontender, +fistula drainage, (+) Feeding tube Ext: multiple ulcers, dry gangrene of bilateral feet, fingers Laboratory Results - last 24 hr 09/26/16 09/27/16 16:32 05:35 POC Glucometer 260 325 A/P Perforated Duodenal Ulcer Peritonitis s/p ex-lap/omental patch repair 07/16 Enterocutaneous Fistula Acute Respiratory Failure s/p Tracheostomy s/p Septic Shock DM DVT Gangrene s/p PEA Cardiac Arrest - continue anticoagulation - morphine for comfort - enteral feeds as tolerated - Patient is not tolerating spontaneous breathing trials - DVT/GI prophylaxis - prognosis is poor, continue discussions regarding advanced directives and goals of care - recommend palliative due to failure to wean, anticipated amputations, poor quality of life. Day #[address] Dubon
[2016-09-27] MEDS: POTASSIUM CHLORIDE ORAL LIQUID 20 MEQ/15 ML GT SCH ×2 (12:00→22:58)
[2016-09-27] MEDS: ACETAMINOPHEN 650 MG/20.3 ML ORAL SOLUTION (CUPS) PO PRN (16:00)
--- NOTE | 2016-09-27 17:05 | PN ---
Progress Note, Physician History of Present Illness: Pt noted to have Tmax 100.6F Easily arousable, not following directions, no acute distress s/p tracheostomy, without current resp distress - Current Medication List Current Medications: Active Medications Acetaminophen (Tylenol Oral Solution -) 650 mg PO Q6H PRN PRN Reason: FEVER OR PAIN Last Admin: 09/26/16 18:23 Dose: 650 mg Collagenase (Santyl -) 1 applic TP DAILY [facility] Last Admin: 09/27/16 10:29 Dose: 1 applic Dextrose (D50w (Vial) -) 50 gm IVPUSH Q15M PRN PRN Reason: BLOOD SUGAR < 60 Enoxaparin Sodium (Lovenox -) 40 mg SQ BID [facility] Last Admin: 09/27/16 10:28 Dose: 40 mg Furosemide (Lasix -) 20 mg GT DAILY [facility] Last Admin: 09/27/16 10:29 Dose: 20 mg IV Flush (Triple Lumen Flush) 4 ml IVPUSH PRN PRN PRN Reason: Protocol Last Admin: 09/24/16 10:44 Dose: 4 ml Insulin Aspart (Novolog Vial Sliding Scale -) 1 vial SQ BIDAC [facility] PRN Reason: Protocol Last Admin: 09/27/16 06:01 Dose: 8 units Insulin Detemir (Levemir Vial) 22 units SQ HS [facility] Last Admin: 09/26/16 22:21 Dose: 22 units Magnesium Oxide (Mag-Ox -) 400 mg GT BID [facility] Last Admin: 09/27/16 10:29 Dose: 400 mg Miscellaneous (Duragesic Patch Waste) 1 each TD PRN PRN PRN Reason: PAIN Last Admin: 09/26/16 15:41 Dose: 1 each Morphine Sulfate (Morphine Injection -) 2 mg IVPUSH Q4H PRN PRN Reason: PAIN Ofloxacin (Ocuflox 0.3% Eye Drops -) 1 drop OD Q4HWA [facility] Last Admin: 09/27/16 10:30 Dose: 1 drop Potassium Chloride (Potassium Chloride Oral Liquid) 40 meq GT BID [facility] Last Admin: 09/26/16 22:17 Dose: 40 meq Prednisolone Acetate (Pred Forte 1% -) 1 drop OD BID [facility] Last Admin: 09/27/16 10:30 Dose: 1 drp Ranitidine HCl (Zantac Oral Solution -) 150 mg PO BID [facility] Last Admin: 09/27/16 10:29 Dose: 150 mg - Objective Vital Signs: Vital Signs Temperature 101.6 F H 09/27/16 14:50 Pulse Rate 97 H 09/27/16 14:50 Respiratory Rate 17 09/27/16 14:50 Blood Pressure 130/81 09/27/16 14:50 O2 Sat by Pulse Oximetry (%) 98 09/25/16 10:10 Constitutional: Yes: No Distress Neck: Yes: Other (tracheostomy) Cardiovascular: Yes: Regular Rate and Rhythm Respiratory: Yes: Regular, Other (b/l air entry, no rhonchi) Gastrointestinal: Yes: Normal Bowel Sounds, Soft ...Rectal Exam: Yes: Other (rectal tube with loose stool) Extremities: Yes: Other (necrotic rt hand, left fingertips) Wound/Incision: Yes: Clean/Dry Labs: CBC, [facility] 09/26/16 06:00 09/26/16 06:00 INR, PTT INR 1.14 (0.82-1.09) 09/07/16 22:45 Fibrinogen > 700.0 mg/dL (238-498) H 07/31/16 05:40 Problem List - Problems (1) Cardiac arrest due to respiratory disorder Code(s): J98.9 - RESPIRATORY DISORDER, UNSPECIFIED I46.8 - CARDIAC ARREST DUE TO OTHER UNDERLYING CONDITION (2) Diabetes mellitus Code(s): E11.9 - TYPE 2 DIABETES MELLITUS WITHOUT COMPLICATIONS Qualifiers: Diabetes mellitus type: type 2 (3) Perforated abdominal viscus Code(s): [id number] - (4) Sepsis Code(s): A41.9 - SEPSIS, UNSPECIFIED ORGANISM Assessment/Plan Fever, etiology unclear Cardiac Arrest/Respiratory failure s/p trach Duodenal Perforation s/p resection Enterocutaneous fistula / colostomy - low grade fever, continue monitor temp off antibiotics for now - if fever persists will restart empiric antibiotics pending workup - currently stable CBC, BMP 09/26/16 06:00 09/26/16 06:00 Microbiology 09/25/16 16:00 Blood Culture - Preliminary Blood - Peripheral Venous NO GROWTH OBTAINED AFTER 48 HOURS, INCUBATION TO CONTINUE FOR 3 DAYS. 09/25/16 16:00 Blood Culture - Preliminary Blood - Peripheral Venous NO GROWTH OBTAINED AFTER 48 HOURS, INCUBATION TO CONTINUE FOR 3 DAYS.
[2016-09-27] MEDS: morphine CARPU-JECT 4 MG/1 ML DISP.SYRIN IVPUSH PRN (22:58)
[2016-09-27] MEDS: INSULIN DETEMIR 100 UNITS/ML MDV SQ SCH (23:00)
[2016-09-28] MEDS: OFLOXACIN 0.3% OPHTHALMIC SOLUTION 5 ML BOTTLE OD SCH ×5 (06:03→23:01)
[2016-09-28] MEDS: INSULIN SLIDING SCALE (NOVOLOG) 1 VIAL SQ SCH ×2 (06:03→19:09)
[2016-09-28] MEDS: RANITIDINE HCL 150 MG/10 ML UNIT-DOSE CUP PO SCH ×2 (10:26→22:56)
[2016-09-28] MEDS: FUROSEMIDE 20 MG TABLET (FP) GT SCH (10:26)
[2016-09-28] MEDS: POTASSIUM CHLORIDE ORAL LIQUID 20 MEQ/15 ML GT SCH ×2 (10:27→22:56)
[2016-09-28] MEDS: ENOXAPARIN NA (PORCINE) 40 MG/0.4 ML DISP.SYRIN SQ SCH ×2 (10:27→22:56)
[2016-09-28] MEDS: MAGNESIUM OXIDE 400 MG TABLET (FP) GT SCH ×2 (10:27→22:56)
[2016-09-28] MEDS: prednisoLONE ACETATE 1% OPHTH SUSP 5 ML BOTTLE OD SCH ×2 (10:28→22:56)
--- NOTE | 2016-09-28 11:42 | PN ---
Progress Note (short form) - Note Progress Note: NAD on AC Mode of vent. Tolerated some CPAP wean yesterday but then needed to be changed to AC Mode. Intermittent low grade temps. Intake & Output 09/25/16 09/26/16 09/27/16 09/28/16 23:59 23:59 23:59 23:59 Intake Total 1979 2029 2350 980 Output Total 30 100 0 5 Balance 1950 0 2350 975 Last Vital Signs Temp Pulse Resp BP Pulse Ox 98.9 F 96 H 17 131/63 98 09/28/16 06:00 09/28/16 06:00 09/28/16 10:35 09/28/16 06:00 09/25/16 10:10 Active Medications Acetaminophen (Tylenol Oral Solution -) 650 mg PO Q6H PRN PRN Reason: FEVER OR PAIN Last Admin: 09/27/16 16:00 Dose: 650 mg Collagenase (Santyl -) 1 applic TP DAILY [facility] Last Admin: 09/27/16 10:29 Dose: 1 applic Dextrose (D50w (Vial) -) 50 gm IVPUSH Q15M PRN PRN Reason: BLOOD SUGAR < 60 Enoxaparin Sodium (Lovenox -) 40 mg SQ BID [facility] Last Admin: 09/27/16 22:58 Dose: 40 mg Furosemide (Lasix -) 20 mg GT DAILY [facility] Last Admin: 09/27/16 10:29 Dose: 20 mg IV Flush (Triple Lumen Flush) 4 ml IVPUSH PRN PRN PRN Reason: Protocol Last Admin: 09/24/16 10:44 Dose: 4 ml Insulin Aspart (Novolog Vial Sliding Scale -) 1 vial SQ BIDAC [facility] PRN Reason: Protocol Last Admin: 09/28/16 06:03 Dose: 10 units Insulin Detemir (Levemir Vial) 22 units SQ HS [facility] Last Admin: 09/27/16 23:00 Dose: 22 units Magnesium Oxide (Mag-Ox -) 400 mg GT BID [facility] Last Admin: 09/27/16 22:58 Dose: 400 mg Miscellaneous (Duragesic Patch Waste) 1 each TD PRN PRN PRN Reason: PAIN Last Admin: 09/26/16 15:41 Dose: 1 each Morphine Sulfate (Morphine Injection -) 2 mg IVPUSH Q4H PRN PRN Reason: PAIN Last Admin: 09/27/16 22:58 Dose: 2 mg Ofloxacin (Ocuflox 0.3% Eye Drops -) 1 drop OD Q4HWA [facility] Last Admin: 09/28/16 06:03 Dose: 1 drop Potassium Chloride (Potassium Chloride Oral Liquid) 40 meq GT BID [facility] Last Admin: 09/27/16 22:58 Dose: 40 meq Prednisolone Acetate (Pred Forte 1% -) 1 drop OD BID [facility] Last Admin: 09/27/16 22:59 Dose: 1 drp Ranitidine HCl (Zantac Oral Solution -) 150 mg PO BID [facility] Last Admin: 09/27/16 22:58 Dose: 150 mg Gen: NAD, vented Heart: S1S2 Lung: bilateral scattered rhonchi Abd: soft, nontender, +fistula drainage, (+) Feeding tube Ext: multiple ulcers, dry gangrene of bilateral feet, fingers Laboratory Results - last 24 hr 09/27/16 09/27/16 09/28/16 17:28 23:10 06:02 POC Glucometer 326 211 354 A/P Perforated Duodenal Ulcer Peritonitis s/p ex-lap/omental patch repair 07/16 Enterocutaneous Fistula Acute Respiratory Failure s/p Tracheostomy s/p Septic Shock DM DVT Gangrene s/p PEA Cardiac Arrest - continue anticoagulation - morphine for comfort - enteral feeds as tolerated - Patient is not tolerating spontaneous breathing trials - DVT/GI prophylaxis - prognosis is poor, continue discussions regarding advanced directives and goals of care - recommend palliative due to failure to wean, anticipated amputations, poor quality of life. Day #[address] Dubon
[2016-09-28] MEDS: COLLAGENASE CLOSTRIDIUM HIST. 30 GRAMS TUBE TP SCH (12:28)
--- NOTE | 2016-09-28 12:33 | PN ---
Progress Note, Physician Chief Complaint: On respirator History of Present Illness: Blood sugar running high - Current Medication List Current Medications: Active Medications Acetaminophen (Tylenol Oral Solution -) 650 mg PO Q6H PRN PRN Reason: FEVER OR PAIN Last Admin: 09/27/16 16:00 Dose: 650 mg Collagenase (Santyl -) 1 applic TP DAILY [facility] Last Admin: 09/27/16 10:29 Dose: 1 applic Dextrose (D50w (Vial) -) 50 gm IVPUSH Q15M PRN PRN Reason: BLOOD SUGAR < 60 Enoxaparin Sodium (Lovenox -) 40 mg SQ BID [facility] Last Admin: 09/27/16 22:58 Dose: 40 mg Furosemide (Lasix -) 20 mg GT DAILY [facility] Last Admin: 09/27/16 10:29 Dose: 20 mg IV Flush (Triple Lumen Flush) 4 ml IVPUSH PRN PRN PRN Reason: Protocol Last Admin: 09/24/16 10:44 Dose: 4 ml Insulin Aspart (Novolog Vial Sliding Scale -) 1 vial SQ BIDAC [facility] PRN Reason: Protocol Last Admin: 09/28/16 06:03 Dose: 10 units Insulin Detemir (Levemir Vial) 22 units SQ HS [facility] Last Admin: 09/27/16 23:00 Dose: 22 units Magnesium Oxide (Mag-Ox -) 400 mg GT BID [facility] Last Admin: 09/27/16 22:58 Dose: 400 mg Miscellaneous (Duragesic Patch Waste) 1 each TD PRN PRN PRN Reason: PAIN Last Admin: 09/26/16 15:41 Dose: 1 each Morphine Sulfate (Morphine Injection -) 2 mg IVPUSH Q4H PRN PRN Reason: PAIN Last Admin: 09/27/16 22:58 Dose: 2 mg Ofloxacin (Ocuflox 0.3% Eye Drops -) 1 drop OD Q4HWA [facility] Last Admin: 09/28/16 06:03 Dose: 1 drop Potassium Chloride (Potassium Chloride Oral Liquid) 40 meq GT BID [facility] Last Admin: 09/27/16 22:58 Dose: 40 meq Prednisolone Acetate (Pred Forte 1% -) 1 drop OD BID [facility] Last Admin: 09/27/16 22:59 Dose: 1 drp Ranitidine HCl (Zantac Oral Solution -) 150 mg PO BID [facility] Last Admin: 09/27/16 22:58 Dose: 150 mg - Objective Vital Signs: Vital Signs Temperature 98.9 F 09/28/16 06:00 Pulse Rate 96 H 09/28/16 06:00 Respiratory Rate 09/28/16 10:35 Blood Pressure 131/63 09/28/16 06:00 O2 Sat by Pulse Oximetry (%) 98 09/25/16 10:10 Constitutional: Yes: Calm Eyes: Yes: WNL HENT: Yes: WNL Neck: Yes: WNL Cardiovascular: Yes: WNL Respiratory: Yes: Mechanically Ventilated Gastrointestinal: Yes: WNL ...Rectal Exam: Yes: Other (Has rectal tube) Labs: CBC, BMP 09/26/16 06:00 09/26/16 06:00 INR, PTT INR 1.14 (0.82-1.09) 09/07/16 22:45 Fibrinogen > 700.0 mg/dL (238-498) H 07/31/16 05:40 Assessment/Plan levmir increased
--- NOTE | 2016-09-28 15:42 | PN ---
Progress Note, Physician History of Present Illness: Pt alert A/C mode vent No respiratory distress intermittent mild temp elevations - Current Medication List Current Medications: Active Medications Acetaminophen (Tylenol Oral Solution -) 650 mg PO Q6H PRN PRN Reason: FEVER OR PAIN Last Admin: 09/27/16 16:00 Dose: 650 mg Clotrimazole (Lotrisone Cream (Small Tube)) 1 applic TP BID [facility] Collagenase (Santyl -) 1 applic TP DAILY [facility] Last Admin: 09/28/16 12:28 Dose: 1 applic Dextrose (D50w (Vial) -) 50 gm IVPUSH Q15M PRN PRN Reason: BLOOD SUGAR < 60 Enoxaparin Sodium (Lovenox -) 40 mg SQ BID [facility] Last Admin: 09/28/16 10:27 Dose: 40 mg Furosemide (Lasix -) 20 mg GT DAILY [facility] Last Admin: 09/28/16 10:26 Dose: 20 mg IV Flush (Triple Lumen Flush) 4 ml IVPUSH PRN PRN PRN Reason: Protocol Last Admin: 09/24/16 10:44 Dose: 4 ml Insulin Aspart (Novolog Vial Sliding Scale -) 1 vial SQ BIDAC [facility] PRN Reason: Protocol Last Admin: 09/28/16 06:03 Dose: 10 units Insulin Detemir (Levemir Vial) 28 units SQ HS [facility] Magnesium Oxide (Mag-Ox -) 400 mg GT BID [facility] Last Admin: 09/28/16 10:27 Dose: 400 mg Miscellaneous (Duragesic Patch Waste) 1 each TD PRN PRN PRN Reason: PAIN Last Admin: 09/26/16 15:41 Dose: 1 each Morphine Sulfate (Morphine Injection -) 2 mg IVPUSH Q4H PRN PRN Reason: PAIN Last Admin: 09/27/16 22:58 Dose: 2 mg Ofloxacin (Ocuflox 0.3% Eye Drops -) 1 drop OD Q4HWA [facility] Last Admin: 09/28/16 10:27 Dose: 1 drop Potassium Chloride (Potassium Chloride Oral Liquid) 40 meq GT BID [facility] Last Admin: 09/28/16 10:27 Dose: 40 meq Prednisolone Acetate (Pred Forte 1% -) 1 drop OD BID [facility] Last Admin: 09/28/16 10:28 Dose: 1 drp Ranitidine HCl (Zantac Oral Solution -) 150 mg PO BID [facility] Last Admin: 09/28/16 10:26 Dose: 150 mg - Objective Vital Signs: Vital Signs Temperature 98.9 F 09/28/16 06:00 Pulse Rate 96 H 09/28/16 06:00 Respiratory Rate 54 H 09/28/16 14:27 Blood Pressure 131/63 09/28/16 06:00 O2 Sat by Pulse Oximetry (%) 98 09/25/16 10:10 Constitutional: Yes: No Distress Respiratory: Yes: Other (vent a/c mode chest tube without significant drainage) Extremities: Yes: Other (gangrenous hand/feet) Labs: CBC, BMP 09/26/16 06:00 09/26/16 06:00 INR, PTT INR 1.14 (0.82-1.09) 09/07/16 22:45 Fibrinogen > 700.0 mg/dL (238-498) H 07/31/16 05:40 Problem List - Problems (1) Cardiac arrest due to respiratory disorder Code(s): J98.9 - RESPIRATORY DISORDER, UNSPECIFIED I46.8 - CARDIAC ARREST DUE TO OTHER UNDERLYING CONDITION (2) Diabetes mellitus Code(s): E11.9 - TYPE 2 DIABETES MELLITUS WITHOUT COMPLICATIONS Qualifiers: Diabetes mellitus type: type 2 (3) Perforated abdominal viscus Code(s): [id number] - (4) Sepsis Code(s): A41.9 - SEPSIS, UNSPECIFIED ORGANISM Assessment/Plan - continue monitor for now off antibiotics - no clinical change noted
[2016-09-28] MEDS: ACETAMINOPHEN 650 MG/20.3 ML ORAL SOLUTION (CUPS) PO PRN ×2 (18:00→23:00)
[2016-09-28] MEDS ORDERED: [UNRECOGNIZED DRUG - OTHER] IVPB ONE (20:00)
[2016-09-28] MEDS ORDERED: CEFTAZIDIME 1 GM IVPB ONE (20:00)
[2016-09-28] MEDS: CLOTRIMAZOLE/BETAMET DIPROP 15 GM TUBE TP SCH (22:56)
[2016-09-28] MEDS: morphine CARPU-JECT 4 MG/1 ML DISP.SYRIN IVPUSH PRN (22:57)
[2016-09-28] MEDS: INSULIN DETEMIR 100 UNITS/ML MDV SQ SCH (23:01)
[2016-09-29] MEDS: ACETAMINOPHEN 650 MG/20.3 ML ORAL SOLUTION (CUPS) PO PRN ×2 (06:23→18:11)
[2016-09-29] MEDS: INSULIN SLIDING SCALE (NOVOLOG) 1 VIAL SQ SCH ×3 (06:24→17:40)
[2016-09-29] MEDS: OFLOXACIN 0.3% OPHTHALMIC SOLUTION 5 ML BOTTLE OD SCH ×4 (06:24→17:43)
--- NOTE | 2016-09-29 09:30 | PN ---
Progress Note, Physician Chief Complaint: No new complaints - Current Medication List Current Medications: Active Medications Acetaminophen (Tylenol Oral Solution -) 650 mg PO Q6H PRN PRN Reason: FEVER OR PAIN Last Admin: 09/29/16 06:23 Dose: 650 mg Clotrimazole (Lotrisone Cream (Small Tube)) 1 applic TP BID [facility] Last Admin: 09/28/16 22:56 Dose: 1 applic Collagenase (Santyl -) 1 applic TP DAILY [facility] Last Admin: 09/28/16 12:28 Dose: 1 applic Dextrose (D50w (Vial) -) 50 gm IVPUSH Q15M PRN PRN Reason: BLOOD SUGAR < 60 Enoxaparin Sodium (Lovenox -) 40 mg SQ BID [facility] Last Admin: 09/28/16 22:56 Dose: 40 mg Furosemide (Lasix -) 20 mg GT DAILY [facility] Last Admin: 09/28/16 10:26 Dose: 20 mg IV Flush (Triple Lumen Flush) 4 ml IVPUSH PRN PRN PRN Reason: Protocol Last Admin: 09/24/16 10:44 Dose: 4 ml Insulin Aspart (Novolog Vial Sliding Scale -) 1 vial SQ BIDAC [facility] PRN Reason: Protocol Last Admin: 09/29/16 06:24 Dose: 10 units Insulin Detemir (Levemir Vial) 28 units SQ HS [facility] Last Admin: 09/28/16 23:01 Dose: 28 units Magnesium Oxide (Mag-Ox -) 400 mg GT BID [facility] Last Admin: 09/28/16 22:56 Dose: 400 mg Miscellaneous (Duragesic Patch Waste) 1 each TD PRN PRN PRN Reason: PAIN Last Admin: 09/26/16 15:41 Dose: 1 each Morphine Sulfate (Morphine Injection -) 2 mg IVPUSH Q4H PRN PRN Reason: PAIN Last Admin: 09/28/16 22:57 Dose: 2 mg Ofloxacin (Ocuflox 0.3% Eye Drops -) 1 drop OD Q4HWA [facility] Last Admin: 09/29/16 06:24 Dose: 1 drop Potassium Chloride (Potassium Chloride Oral Liquid) 40 meq GT BID [facility] Last Admin: 09/28/16 22:56 Dose: 40 meq Prednisolone Acetate (Pred Forte 1% -) 1 drop OD BID [facility] Last Admin: 09/28/16 22:56 Dose: 1 drp Ranitidine HCl (Zantac Oral Solution -) 150 mg PO BID [facility] Last Admin: 09/28/16 22:56 Dose: 150 mg - Objective Vital Signs: Vital Signs Temperature 101.6 F H 09/29/16 06:00 Pulse Rate 101 H 09/29/16 06:00 Respiratory Rate 16 09/29/16 06:58 Blood Pressure 133/71 09/29/16 06:00 O2 Sat by Pulse Oximetry (%) 98 09/25/16 10:10 Constitutional: Yes: Mild Distress Eyes: Yes: WNL HENT: Yes: WNL Neck: Yes: WNL Cardiovascular: Yes: Regular Rate and Rhythm Respiratory: Yes: Mechanically Ventilated Gastrointestinal: Yes: Normal Bowel Sounds Neurological: Yes: Lethargy Labs: CBC, BMP 09/26/16 06:00 09/26/16 06:00 INR, PTT INR 1.14 (0.82-1.09) 09/07/16 22:45 Fibrinogen > 700.0 mg/dL (238-498) H 07/31/16 05:40 Assessment/Plan Increase insulin coverage
[2016-09-29] MEDS: morphine CARPU-JECT 4 MG/1 ML DISP.SYRIN IVPUSH PRN (10:11)
[2016-09-29] MEDS: RANITIDINE HCL 150 MG/10 ML UNIT-DOSE CUP PO SCH (10:11)
[2016-09-29] MEDS: POTASSIUM CHLORIDE ORAL LIQUID 20 MEQ/15 ML GT SCH (10:11)
[2016-09-29] MEDS: MAGNESIUM OXIDE 400 MG TABLET (FP) GT SCH (10:11)
[2016-09-29] MEDS: FUROSEMIDE 20 MG TABLET (FP) GT SCH (10:11)
[2016-09-29] MEDS: ENOXAPARIN NA (PORCINE) 40 MG/0.4 ML DISP.SYRIN SQ SCH (10:11)
[2016-09-29] MEDS: CLOTRIMAZOLE/BETAMET DIPROP 15 GM TUBE TP SCH (10:20)
[2016-09-29] MEDS ORDERED: PT OWN MED DRAWER 7, Y5N ONE ×2 (10:20→18:32)
[2016-09-29] MEDS: COLLAGENASE CLOSTRIDIUM HIST. 30 GRAMS TUBE TP SCH (10:21)
[2016-09-29] MEDS: prednisoLONE ACETATE 1% OPHTH SUSP 5 ML BOTTLE OD SCH (10:24)
[2016-09-29] MEDS ORDERED: INSULIN (NOVOLOG) ASPART 100 UNITS/ML 10ML VIAL ONE ×2 (11:09→18:32)
--- NOTE | 2016-09-29 11:55 | PN ---
Progress Note, Physician History of Present Illness: PULMONBARY LETHARGIC ON VENT SUPPORT ON VENT SUPPORT AC MODE NOT TOLERATING WEANING ATTEMPTS. FEBRILE - Current Medication List Current Medications: Active Medications Acetaminophen (Tylenol Oral Solution -) 650 mg PO Q6H PRN PRN Reason: FEVER OR PAIN Last Admin: 09/29/16 06:23 Dose: 650 mg Clotrimazole (Lotrisone Cream (Small Tube)) 1 applic TP BID [facility] Last Admin: 09/29/16 10:20 Dose: 1 applic Collagenase (Santyl -) 1 applic TP DAILY [facility] Last Admin: 09/29/16 10:21 Dose: 1 applic Dextrose (D50w (Vial) -) 50 gm IVPUSH Q15M PRN PRN Reason: BLOOD SUGAR < 60 Enoxaparin Sodium (Lovenox -) 40 mg SQ BID [facility] Last Admin: 09/29/16 10:11 Dose: 40 mg Furosemide (Lasix -) 20 mg GT DAILY [facility] Last Admin: 09/29/16 10:11 Dose: 20 mg IV Flush (Triple Lumen Flush) 4 ml IVPUSH PRN PRN PRN Reason: Protocol Last Admin: 09/24/16 10:44 Dose: 4 ml Insulin Aspart (Novolog Vial Sliding Scale -) 1 vial SQ ACHS [facility] PRN Reason: Protocol Last Admin: 09/29/16 11:48 Dose: 20 units Insulin Detemir (Levemir Vial) 28 units SQ HS [facility] Last Admin: 09/28/16 23:01 Dose: 28 units Magnesium Oxide (Mag-Ox -) 400 mg GT BID [facility] Last Admin: 09/29/16 10:11 Dose: 400 mg Miscellaneous (Duragesic Patch Waste) 1 each TD PRN PRN PRN Reason: PAIN Last Admin: 09/26/16 15:41 Dose: 1 each Ofloxacin (Ocuflox 0.3% Eye Drops -) 1 drop OD Q4HWA [facility] Last Admin: 09/29/16 10:26 Dose: 1 drop Potassium Chloride (Potassium Chloride Oral Liquid) 40 meq GT BID [facility] Last Admin: 09/29/16 10:11 Dose: 40 meq Prednisolone Acetate (Pred Forte 1% -) 1 drop OD BID [facility] Last Admin: 09/29/16 10:24 Dose: 1 drp Ranitidine HCl (Zantac Oral Solution -) 150 mg PO BID [facility] Last Admin: 09/29/16 10:11 Dose: 150 mg - Objective Vital Signs: Vital Signs Temperature 101.6 F H 09/29/16 06:00 Pulse Rate 102 H 09/29/16 10:25 Respiratory Rate 15 09/29/16 10:25 Blood Pressure 133/71 09/29/16 06:00 O2 Sat by Pulse Oximetry (%) 98 09/29/16 10:25 Constitutional: Yes: Thin, Other (LETHARGIC) Eyes: Yes: WNL HENT: Yes: WNL Neck: Yes: Supple (TRACH) Cardiovascular: Yes: Regular Rate and Rhythm, S1, S2 Respiratory: Yes: Rhonchi (FEW SCATTERED RHONCHI) Gastrointestinal: Yes: Normal Bowel Sounds, Soft Extremities: Yes: Other (BILATERAL GANGRENE HANDS AND FEET) Edema: No Labs: CBC, BMP Problem List - Problems (1) ZAHIRA (acute kidney injury) Code(s): N17.9 - ACUTE KIDNEY FAILURE, UNSPECIFIED (2) Acute metabolic encephalopathy Code(s): G93.41 - METABOLIC ENCEPHALOPATHY (3) Ischemia of extremity Code(s): I99.8 - OTHER DISORDER OF CIRCULATORY SYSTEM (4) Metabolic acidemia Code(s): E87.2 - ACIDOSIS (5) Perforated abdominal viscus Code(s): [id number] - (6) Sepsis Code(s): A41.9 - SEPSIS, UNSPECIFIED ORGANISM (7) Acute respiratory failure Code(s): J96.00 - ACUTE RESPIRATORY FAILURE, UNSP W HYPOXIA OR HYPERCAPNIA Assessment/Plan ASSESSMENT AND PLAN: Perforated Duodenal Ulcer Peritonitis s/p ex-lap/omental patch repair 07/16 Enterocutaneous Fistula Acute Respiratory Failure s/p Tracheostomy s/p Septic Shock DM DVT Gangrene s/p PEA Cardiac Arrest - Fio2 to keep Spo2 >90% - anticoagulation - morphine for comfort - enteral feeds as tolerated - DVT/GI prophylaxis - recommend palliative due to failure to wean, anticipated amputations, poor quality of life DR OSEI
--- NOTE | 2016-09-29 17:30 | PN ---
Progress Note, Physician History of Present Illness: patient started to spike fevers again high grade fevers sputum production increasing and viscous - Current Medication List Current Medications: Active Medications Acetaminophen (Tylenol Oral Solution -) 650 mg PO Q6H PRN PRN Reason: FEVER OR PAIN Last Admin: 09/29/16 06:23 Dose: 650 mg Clotrimazole (Lotrisone Cream (Small Tube)) 1 applic TP BID [facility] Last Admin: 09/29/16 10:20 Dose: 1 applic Collagenase (Santyl -) 1 applic TP DAILY [facility] Last Admin: 09/29/16 10:21 Dose: 1 applic Dextrose (D50w (Vial) -) 50 gm IVPUSH Q15M PRN PRN Reason: BLOOD SUGAR < 60 Enoxaparin Sodium (Lovenox -) 40 mg SQ BID [facility] Last Admin: 09/29/16 10:11 Dose: 40 mg Furosemide (Lasix -) 20 mg GT DAILY [facility] Last Admin: 09/29/16 10:11 Dose: 20 mg IV Flush (Triple Lumen Flush) 4 ml IVPUSH PRN PRN PRN Reason: Protocol Last Admin: 09/24/16 10:44 Dose: 4 ml Ceftazidime 1 gm/ Dextrose 100 mls @ 200 mls/hr IVPB Q8H-IV [facility] PRN Reason: Protocol Insulin Aspart (Novolog Vial Sliding Scale -) 1 vial SQ ACHS [facility] PRN Reason: Protocol Last Admin: 09/29/16 11:48 Dose: 20 units Insulin Detemir (Levemir Vial) 28 units SQ HS [facility] Last Admin: 09/28/16 23:01 Dose: 28 units Magnesium Oxide (Mag-Ox -) 400 mg GT BID [facility] Last Admin: 09/29/16 10:11 Dose: 400 mg Miscellaneous (Duragesic Patch Waste) 1 each TD PRN PRN PRN Reason: PAIN Last Admin: 09/26/16 15:41 Dose: 1 each Ofloxacin (Ocuflox 0.3% Eye Drops -) 1 drop OD Q4HWA [facility] Last Admin: 09/29/16 13:35 Dose: 1 drop Potassium Chloride (Potassium Chloride Oral Liquid) 40 meq GT BID [facility] Last Admin: 09/29/16 10:11 Dose: 40 meq Prednisolone Acetate (Pred Forte 1% -) 1 drop OD BID [facility] Last Admin: 09/29/16 10:24 Dose: 1 drp Ranitidine HCl (Zantac Oral Solution -) 150 mg PO BID [facility] Last Admin: 09/29/16 10:11 Dose: 150 mg - Objective Vital Signs: Vital Signs Temperature 102.2 F H 09/29/16 15:18 Pulse Rate 71 09/29/16 15:18 Respiratory Rate 18 09/29/16 15:18 Blood Pressure 156/67 09/29/16 15:18 O2 Sat by Pulse Oximetry (%) 98 09/29/16 10:25 Constitutional: Yes: No Distress, Calm Cardiovascular: Yes: Regular Rate and Rhythm Respiratory: Yes: Regular, Poor Air Entry, Rhonchi Gastrointestinal: Yes: Normal Bowel Sounds, Soft, Other (peg) Musculoskeletal: Yes: Other Extremities: Yes: Other (gangrene of the ext) Neurological: Yes: Alert Psychiatric: Yes: Alert Labs: CBC, BMP 09/26/16 06:00 09/26/16 06:00 INR, PTT INR 1.14 (0.82-1.09) 09/07/16 22:45 Fibrinogen > 700.0 mg/dL (238-498) H 07/31/16 05:40 Assessment/Plan Problem List - Problems (1) Abdominal pain Code(s): R10.9 - UNSPECIFIED ABDOMINAL PAIN Qualifiers: Qualified Code(s): R10.33 - Periumbilical pain (2) Perforated abdominal viscus Code(s): [id number] - (3) Perforated viscus Code(s): R19.8 - OTH SYMPTOMS AND SIGNS INVOLVING THE DGSTV SYS AND ABDOMEN (4) Hypertension Code(s): I10 - ESSENTIAL (PRIMARY) HYPERTENSION Qualifiers: Qualified Code(s): I10 - Essential (primary) hypertension lactic acidosis fevers generalized swelling gangrene of the tip of the fingers noted pseudomonas pneumonia plan continue current mgmt nutrition await for blood cx restarted on abx await for sputum cx
[2016-09-29] MEDS: CEFTAZIDIME PENTAHYDRATE 1 GM in DEXTROSE 5%-WATER - 50 ML IVPB SCH (17:59)
[2016-09-30] MEDS: MAGNESIUM OXIDE 400 MG TABLET (FP) GT SCH ×2 (00:38→12:09)
[2016-09-30] MEDS: POTASSIUM CHLORIDE ORAL LIQUID 20 MEQ/15 ML GT SCH ×2 (00:38→12:08)
[2016-09-30] MEDS: RANITIDINE HCL 150 MG/10 ML UNIT-DOSE CUP PO SCH ×2 (00:38→12:08)
[2016-09-30] MEDS: prednisoLONE ACETATE 1% OPHTH SUSP 5 ML BOTTLE OD SCH ×2 (00:44→12:12)
[2016-09-30] MEDS: OFLOXACIN 0.3% OPHTHALMIC SOLUTION 5 ML BOTTLE OD SCH ×5 (00:44→17:16)
[2016-09-30] MEDS ORDERED: ENOXAPARIN NA (PORCINE) 40 MG/0.4 ML DISP.SYRIN SQ SCH (00:45)
[2016-09-30] MEDS: ENOXAPARIN NA (PORCINE) 40 MG/0.4 ML DISP.SYRIN SQ SCH (00:52)
[2016-09-30] MEDS: INSULIN DETEMIR 100 UNITS/ML MDV SQ SCH (01:11)
[2016-09-30] MEDS: CLOTRIMAZOLE/BETAMET DIPROP 15 GM TUBE TP SCH ×2 (01:11→10:11)
[2016-09-30] MEDS: INSULIN SLIDING SCALE (NOVOLOG) 1 VIAL SQ SCH ×4 (01:12→17:12)
[2016-09-30] MEDS ORDERED: PT OWN MED DRAWER 7, Y5N ONE ×3 (02:51→19:12)
[2016-09-30] MEDS: CEFTAZIDIME PENTAHYDRATE 1 GM in DEXTROSE 5%-WATER - 50 ML IVPB SCH ×3 (03:52→17:16)
[2016-09-30] MEDS: ACETAMINOPHEN 650 MG/20.3 ML ORAL SOLUTION (CUPS) PO PRN ×2 (07:04→15:45)
--- NOTE | 2016-09-30 08:53 | PN ---
Progress Note, Physician Chief Complaint: Not responding to verbal commands History of Present Illness: maria esther Mercedes note noted,spiked fever ,back on antibiotics - Current Medication List Current Medications: Active Medications Acetaminophen (Tylenol Oral Solution -) 650 mg PO Q6H PRN PRN Reason: FEVER OR PAIN Last Admin: 09/30/16 07:04 Dose: 650 mg Clotrimazole (Lotrisone Cream (Small Tube)) 1 applic TP BID [facility] Last Admin: 09/30/16 01:11 Dose: 1 applic Collagenase (Santyl -) 1 applic TP DAILY [facility] Last Admin: 09/29/16 10:21 Dose: 1 applic Dextrose (D50w (Vial) -) 50 gm IVPUSH Q15M PRN PRN Reason: BLOOD SUGAR < 60 Furosemide (Lasix -) 20 mg GT DAILY [facility] Last Admin: 09/29/16 10:11 Dose: 20 mg IV Flush (Triple Lumen Flush) 4 ml IVPUSH PRN PRN PRN Reason: Protocol Last Admin: 09/24/16 10:44 Dose: 4 ml Ceftazidime 1 gm/ Dextrose 50 mls @ 100 mls/hr IVPB Q8H-IV [facility] PRN Reason: Protocol Last Admin: 09/30/16 03:52 Dose: 100 mls/hr Insulin Aspart (Novolog Vial Sliding Scale -) 1 vial SQ ACHS [facility] PRN Reason: Protocol Last Admin: 09/30/16 07:08 Dose: 12 units Insulin Detemir (Levemir Vial) 28 units SQ HS [facility] Last Admin: 09/30/16 01:11 Dose: 28 units Magnesium Oxide (Mag-Ox -) 400 mg GT BID [facility] Last Admin: 09/30/16 00:38 Dose: 400 mg Miscellaneous (Duragesic Patch Waste) 1 each TD PRN PRN PRN Reason: PAIN Last Admin: 09/26/16 15:41 Dose: 1 each Ofloxacin (Ocuflox 0.3% Eye Drops -) 1 drop OD Q4HWA [facility] Last Admin: 09/30/16 07:04 Dose: 1 drop Potassium Chloride (Potassium Chloride Oral Liquid) 40 meq GT BID [facility] Last Admin: 09/30/16 00:38 Dose: 40 meq Prednisolone Acetate (Pred Forte 1% -) 1 drop OD BID [facility] Last Admin: 09/30/16 00:44 Dose: Not Given Ranitidine HCl (Zantac Oral Solution -) 150 mg PO BID [facility] Last Admin: 09/30/16 00:38 Dose: 150 mg - Objective Vital Signs: Vital Signs Temperature 100.2 F H 09/30/16 06:00 Pulse Rate 100 H 09/30/16 06:00 Respiratory Rate 17 09/30/16 06:30 Blood Pressure 157/71 09/30/16 06:00 O2 Sat by Pulse Oximetry (%) 98 09/29/16 10:25 Constitutional: Yes: Calm Eyes: Yes: WNL HENT: Yes: WNL Neck: Yes: WNL Cardiovascular: Yes: Regular Rate and Rhythm Respiratory: Yes: Mechanically Ventilated Gastrointestinal: Yes: Soft ...Rectal Exam: Yes: Other (rectal tube in place) Labs: CBC, BMP 09/26/16 06:00 09/26/16 06:00 INR, PTT INR 1.14 (0.82-1.09) 09/07/16 22:45 Fibrinogen > 700.0 mg/dL (238-498) H 07/31/16 05:40 Assessment/Plan continue same trt
[2016-09-30] MEDS ORDERED: INSULIN (NOVOLOG) ASPART 100 UNITS/ML 10ML VIAL ONE ×3 (09:44→19:11)
[2016-09-30] MEDS: COLLAGENASE CLOSTRIDIUM HIST. 30 GRAMS TUBE TP SCH (10:55)
--- NOTE | 2016-09-30 11:19 | PN ---
Progress Note (short form) - Note Progress Note: Low grade temperatures/fevers persist. AC Mode of vent. Intermittently placed on CPAP/SIMV but not able to adequately wean. Hospital day #76. Intake & Output 09/27/16 09/28/16 09/29/16 09/30/16 23:59 23:59 23:59 23:59 Intake Total 2350 2080 2260 Output Total 0 5 1200 Balance 2350 2075 1060 Weight 132 lb 9.6 oz Last Vital Signs Temp Pulse Resp BP Pulse Ox 100.2 F H 100 H 17 157/71 98 09/30/16 06:00 09/30/16 06:00 09/30/16 06:30 09/30/16 06:00 09/29/16 10:25 Active Medications Acetaminophen (Tylenol Oral Solution -) 650 mg PO Q6H PRN PRN Reason: FEVER OR PAIN Last Admin: 09/30/16 07:04 Dose: 650 mg Clotrimazole (Lotrisone Cream (Small Tube)) 1 applic TP BID [facility] Last Admin: 09/30/16 01:11 Dose: 1 applic Collagenase (Santyl -) 1 applic TP DAILY [facility] Last Admin: 09/29/16 10:21 Dose: 1 applic Dextrose (D50w (Vial) -) 50 gm IVPUSH Q15M PRN PRN Reason: BLOOD SUGAR < 60 Furosemide (Lasix -) 20 mg GT DAILY [facility] Last Admin: 09/29/16 10:11 Dose: 20 mg IV Flush (Triple Lumen Flush) 4 ml IVPUSH PRN PRN PRN Reason: Protocol Last Admin: 09/24/16 10:44 Dose: 4 ml Ceftazidime 1 gm/ Dextrose 50 mls @ 100 mls/hr IVPB Q8H-IV [facility] PRN Reason: Protocol Last Admin: 09/30/16 03:52 Dose: 100 mls/hr Insulin Aspart (Novolog Vial Sliding Scale -) 1 vial SQ ACHS [facility] PRN Reason: Protocol Last Admin: 09/30/16 07:08 Dose: 12 units Insulin Detemir (Levemir Vial) 28 units SQ HS [facility] Last Admin: 09/30/16 01:11 Dose: 28 units Magnesium Oxide (Mag-Ox -) 400 mg GT BID [facility] Last Admin: 09/30/16 00:38 Dose: 400 mg Miscellaneous (Duragesic Patch Waste) 1 each TD PRN PRN PRN Reason: PAIN Last Admin: 09/26/16 15:41 Dose: 1 each Ofloxacin (Ocuflox 0.3% Eye Drops -) 1 drop OD Q4HWA [facility] Last Admin: 09/30/16 07:04 Dose: 1 drop Potassium Chloride (Potassium Chloride Oral Liquid) 40 meq GT BID [facility] Last Admin: 09/30/16 00:38 Dose: 40 meq Prednisolone Acetate (Pred Forte 1% -) 1 drop OD BID [facility] Last Admin: 09/30/16 00:44 Dose: Not Given Ranitidine HCl (Zantac Oral Solution -) 150 mg PO BID [facility] Last Admin: 09/30/16 00:38 Dose: 150 mg Gen: NAD, ented Heart: S1S2 Lung: bilateral scattered rhonchi Abd: soft, nontender, +fistula drainage, (+) Feeding tube Ext: multiple ulcers, dry gangrene of bilateral feet, fingers Laboratory Results - last 24 hr 09/29/16 09/29/16 09/30/16 11:12 17:40 01:09 POC Glucometer 305 175 260 09/30/16 07:07 POC Glucometer 261 A/P Perforated Duodenal Ulcer Peritonitis s/p ex-lap/omental patch repair 07/16 Enterocutaneous Fistula Acute Respiratory Failure s/p Tracheostomy s/p Septic Shock DM DVT Gangrene s/p PEA Cardiac Arrest - Check CXR - AC - morphine for comfort - enteral feeds as tolerated - Patient is not adequately tolerating spontaneous breathing trials - prognosis is poor, continue discussions regarding advanced directives and goals of care - recommend palliative/supportive care due to failure to wean, anticipated amputations, poor quality of life. Dr Dubon
[2016-09-30] MEDS: FUROSEMIDE 20 MG TABLET (FP) GT SCH (12:08)
--- NOTE | 2016-09-30 15:34 | PN ---
Progress Note, Physician History of Present Illness: continuous spike of fevers secretions - Current Medication List Current Medications: Active Medications Acetaminophen (Tylenol Oral Solution -) 650 mg PO Q6H PRN PRN Reason: FEVER OR PAIN Last Admin: 09/30/16 07:04 Dose: 650 mg Clotrimazole (Lotrisone Cream (Small Tube)) 1 applic TP BID [facility] Last Admin: 09/30/16 10:11 Dose: 1 applic Collagenase (Santyl -) 1 applic TP DAILY [facility] Last Admin: 09/30/16 10:55 Dose: 1 applic Dextrose (D50w (Vial) -) 50 gm IVPUSH Q15M PRN PRN Reason: BLOOD SUGAR < 60 Furosemide (Lasix -) 20 mg GT DAILY [facility] Last Admin: 09/30/16 12:08 Dose: 20 mg IV Flush (Triple Lumen Flush) 4 ml IVPUSH PRN PRN PRN Reason: Protocol Last Admin: 09/24/16 10:44 Dose: 4 ml Ceftazidime 1 gm/ Dextrose 50 mls @ 100 mls/hr IVPB Q8H-IV [facility] PRN Reason: Protocol Last Admin: 09/30/16 11:00 Dose: 100 mls/hr Vancomycin HCl 1,250 mg/ (Dextrose) 250 mls @ 250 mls/hr IVPB DAILY [facility] PRN Reason: Protocol Insulin Aspart (Novolog Vial Sliding Scale -) 1 vial SQ ACHS [facility] PRN Reason: Protocol Last Admin: 09/30/16 12:19 Dose: 20 units Insulin Detemir (Levemir Vial) 28 units SQ HS [facility] Last Admin: 09/30/16 01:11 Dose: 28 units Magnesium Oxide (Mag-Ox -) 400 mg GT BID [facility] Last Admin: 09/30/16 12:09 Dose: 400 mg Miscellaneous (Duragesic Patch Waste) 1 each TD PRN PRN PRN Reason: PAIN Last Admin: 09/26/16 15:41 Dose: 1 each Ofloxacin (Ocuflox 0.3% Eye Drops -) 1 drop OD Q4HWA [facility] Last Admin: 09/30/16 12:09 Dose: 1 drop Potassium Chloride (Potassium Chloride Oral Liquid) 40 meq GT BID [facility] Last Admin: 09/30/16 12:08 Dose: 40 meq Prednisolone Acetate (Pred Forte 1% -) 1 drop OD BID [facility] Last Admin: 09/30/16 12:12 Dose: 1 drp Ranitidine HCl (Zantac Oral Solution -) 150 mg PO BID [facility] Last Admin: 09/30/16 12:08 Dose: 150 mg - Objective Vital Signs: Vital Signs Temperature 102.8 F H 09/30/16 14:58 Pulse Rate 110 H 09/30/16 14:58 Respiratory Rate 18 09/30/16 14:58 Blood Pressure 115/60 09/30/16 14:58 O2 Sat by Pulse Oximetry (%) 98 09/30/16 10:25 Constitutional: Yes: No Distress, Calm Cardiovascular: Yes: Regular Rate and Rhythm Respiratory: Yes: Mechanically Ventilated, Poor Air Entry, Rhonchi Gastrointestinal: Yes: Normal Bowel Sounds, Soft, Other (peg in place) Musculoskeletal: Yes: Other Extremities: Yes: Other Wound/Incision: Yes: Other Neurological: Yes: Alert, Other Psychiatric: Yes: Other Labs: CBC, BMP 09/26/16 06:00 09/26/16 06:00 INR, PTT INR 1.14 (0.82-1.09) 09/07/16 22:45 Fibrinogen > 700.0 mg/dL (238-498) H 07/31/16 05:40 Assessment/Plan Problem List - Problems (1) Abdominal pain Code(s): R10.9 - UNSPECIFIED ABDOMINAL PAIN Qualifiers: Qualified Code(s): R10.33 - Periumbilical pain (2) Perforated abdominal viscus Code(s): [id number] - (3) Perforated viscus Code(s): R19.8 - OTH SYMPTOMS AND SIGNS INVOLVING THE DGSTV SYS AND ABDOMEN (4) Hypertension Code(s): I10 - ESSENTIAL (PRIMARY) HYPERTENSION Qualifiers: Qualified Code(s): I10 - Essential (primary) hypertension lactic acidosis fevers generalized swelling gangrene of the tip of the fingers noted pseudomonas pneumonia patients sputum again showing multipl organism patient spiking fever because of pneumonia as far as i thinkl plan continue current mgmt nutrition continue abx added vanco to the regimen
[2016-09-30] MEDS ORDERED: VANCOMYCIN 1,250 MG in DEXTROSE 5%-WATER - 250 ML IVPB SCH (15:45)
[2016-09-30] MEDS: VANCOMYCIN 1,250 MG in DEXTROSE 5%-WATER - 250 ML IVPB SCH (16:28)
[2016-10-01] MEDS: RANITIDINE HCL 150 MG/10 ML UNIT-DOSE CUP PO SCH ×3 (00:01→23:16)
[2016-10-01] MEDS: POTASSIUM CHLORIDE ORAL LIQUID 20 MEQ/15 ML GT SCH ×3 (00:01→23:14)
[2016-10-01] MEDS: MAGNESIUM OXIDE 400 MG TABLET (FP) GT SCH ×3 (00:02→23:13)
[2016-10-01] MEDS: CLOTRIMAZOLE/BETAMET DIPROP 15 GM TUBE TP SCH ×3 (00:04→23:11)
[2016-10-01] MEDS: prednisoLONE ACETATE 1% OPHTH SUSP 5 ML BOTTLE OD SCH ×3 (00:06→23:15)
[2016-10-01] MEDS: OFLOXACIN 0.3% OPHTHALMIC SOLUTION 5 ML BOTTLE OD SCH ×6 (00:06→23:14)
[2016-10-01] MEDS: INSULIN DETEMIR 100 UNITS/ML MDV SQ SCH ×2 (00:11→23:11)
[2016-10-01] MEDS: ENOXAPARIN NA (PORCINE) 40 MG/0.4 ML DISP.SYRIN SQ SCH ×2 (01:41→23:13)
[2016-10-01] MEDS: ACETAMINOPHEN 650 MG/20.3 ML ORAL SOLUTION (CUPS) PO PRN ×3 (01:41→15:28)
[2016-10-01] MEDS: INSULIN SLIDING SCALE (NOVOLOG) 1 VIAL SQ SCH ×5 (01:42→23:12)
[2016-10-01] MEDS ORDERED: PT OWN MED DRAWER 7, Y5N ONE ×4 (03:27→18:15)
[2016-10-01] MEDS: CEFTAZIDIME PENTAHYDRATE 1 GM in DEXTROSE 5%-WATER - 50 ML IVPB SCH ×3 (03:29→17:27)
--- NOTE | 2016-10-01 09:17 | PN ---
Progress Note, Physician Chief Complaint: Continues to spike fever History of Present Illness: Respiratory failure on respirator - Current Medication List Current Medications: Active Medications Acetaminophen (Tylenol Oral Solution -) 650 mg PO Q6H PRN PRN Reason: FEVER OR PAIN Last Admin: 10/01/16 01:41 Dose: 650 mg Clotrimazole (Lotrisone Cream (Small Tube)) 1 applic TP BID [facility] Last Admin: 10/01/16 00:04 Dose: Not Given Collagenase (Santyl -) 1 applic TP DAILY [facility] Last Admin: 09/30/16 10:55 Dose: 1 applic Dextrose (D50w (Vial) -) 50 gm IVPUSH Q15M PRN PRN Reason: BLOOD SUGAR < 60 Enoxaparin Sodium (Lovenox -) 40 mg SQ BID [facility] Last Admin: 10/01/16 01:41 Dose: 40 mg Furosemide (Lasix -) 20 mg GT DAILY [facility] Last Admin: 09/30/16 12:08 Dose: 20 mg IV Flush (Triple Lumen Flush) 4 ml IVPUSH PRN PRN PRN Reason: Protocol Last Admin: 09/24/16 10:44 Dose: 4 ml Ceftazidime 1 gm/ Dextrose 50 mls @ 100 mls/hr IVPB Q8H-IV [facility] PRN Reason: Protocol Last Admin: 10/01/16 03:29 Dose: 100 mls/hr Vancomycin HCl 1,250 mg/ (Dextrose) 250 mls @ 166.667 mls/hr IVPB Q24H [facility] PRN Reason: Protocol Last Admin: 09/30/16 16:28 Dose: 166.667 mls/hr Insulin Aspart (Novolog Vial Sliding Scale -) 1 vial SQ ACHS [facility] PRN Reason: Protocol Last Admin: 10/01/16 07:50 Dose: 20 units Insulin Detemir (Levemir Vial) 28 units SQ HS [facility] Last Admin: 10/01/16 00:11 Dose: 28 units Magnesium Oxide (Mag-Ox -) 400 mg GT BID [facility] Last Admin: 10/01/16 00:02 Dose: 400 mg Miscellaneous (Duragesic Patch Waste) 1 each TD PRN PRN PRN Reason: PAIN Last Admin: 09/26/16 15:41 Dose: 1 each Ofloxacin (Ocuflox 0.3% Eye Drops -) 1 drop OD Q4HWA [facility] Last Admin: 10/01/16 07:20 Dose: Not Given Potassium Chloride (Potassium Chloride Oral Liquid) 40 meq GT BID [facility] Last Admin: 10/01/16 00:01 Dose: 40 meq Prednisolone Acetate (Pred Forte 1% -) 1 drop OD BID [facility] Last Admin: 10/01/16 00:06 Dose: Not Given Ranitidine HCl (Zantac Oral Solution -) 150 mg PO BID [facility] Last Admin: 10/01/16 00:01 Dose: 150 mg - Objective Vital Signs: Vital Signs Temperature 98.8 F 10/01/16 07:00 Pulse Rate 86 10/01/16 07:00 Respiratory Rate 16 10/01/16 07:00 Blood Pressure 130/66 10/01/16 07:00 O2 Sat by Pulse Oximetry (%) 98 09/30/16 10:25 Constitutional: Yes: Mild Distress Eyes: Yes: WNL HENT: Yes: WNL Neck: Yes: Supple Cardiovascular: Yes: WNL Respiratory: Yes: Mechanically Ventilated Gastrointestinal: Yes: Normal Bowel Sounds ...Rectal Exam: Yes: Deferred Genitourinary: Yes: Incontinence Neurological: Yes: Oriented, Lethargy Labs: CBC, BMP 09/26/16 06:00 09/26/16 06:00 INR, PTT INR 1.14 (0.82-1.09) 09/07/16 22:45 Fibrinogen > 700.0 mg/dL (238-498) H 07/31/16 05:40 Assessment/Plan Continue IV antibiotics as per ID
[2016-10-01] MEDS: FUROSEMIDE 20 MG TABLET (FP) GT SCH (10:04)
[2016-10-01] MEDS ORDERED: INSULIN (NOVOLOG) ASPART 100 UNITS/ML 10ML VIAL ONE ×3 (11:55→21:02)
--- NOTE | 2016-10-01 12:09 | PN ---
Progress Note (short form) - Note Progress Note: PULMONARY CHART REVIEWED REMAINS INTERMITTENTLY FEBRILE NO CHANGE IN OVERALL EXAM MEDS/LABS/RADIOGRAPHS/MICRO/NOTES REVIEWED A/P Perforated Duodenal Ulcer Peritonitis s/p ex-lap/omental patch repair 07/16 Enterocutaneous Fistula Acute Respiratory Failure/trach/mvv Septic Shock Lactic Acidosis Leukopenia/Thrombocytopenia likely from sepsis DM DVT Gangrene - antibiotics per ID - taper Fio2 to keep Spo2 >90% - continue anticoagulation - nutrition - will adjust vent settings as needed - DVT/GI prophylaxis Rhonda STARR MD
--- NOTE | 2016-10-01 14:57 | PN ---
Progress Note, Physician History of Present Illness: still with fevers having loose stools - Current Medication List Current Medications: Active Medications Acetaminophen (Tylenol Oral Solution -) 650 mg PO Q6H PRN PRN Reason: FEVER OR PAIN Last Admin: 10/01/16 10:04 Dose: 650 mg Clotrimazole (Lotrisone Cream (Small Tube)) 1 applic TP BID [facility] Last Admin: 10/01/16 10:07 Dose: 1 applic Collagenase (Santyl -) 1 applic TP DAILY [facility] Last Admin: 09/30/16 10:55 Dose: 1 applic Dextrose (D50w (Vial) -) 50 gm IVPUSH Q15M PRN PRN Reason: BLOOD SUGAR < 60 Enoxaparin Sodium (Lovenox -) 40 mg SQ BID [facility] Last Admin: 10/01/16 01:41 Dose: 40 mg Furosemide (Lasix -) 20 mg GT DAILY [facility] Last Admin: 10/01/16 10:04 Dose: 20 mg IV Flush (Triple Lumen Flush) 4 ml IVPUSH PRN PRN PRN Reason: Protocol Last Admin: 09/24/16 10:44 Dose: 4 ml Ceftazidime 1 gm/ Dextrose 50 mls @ 100 mls/hr IVPB Q8H-IV [facility] PRN Reason: Protocol Last Admin: 10/01/16 10:04 Dose: 100 mls/hr Vancomycin HCl 1,250 mg/ (Dextrose) 250 mls @ 166.667 mls/hr IVPB Q24H [facility] PRN Reason: Protocol Last Admin: 09/30/16 16:28 Dose: 166.667 mls/hr Insulin Aspart (Novolog Vial Sliding Scale -) 1 vial SQ ACHS [facility] PRN Reason: Protocol Last Admin: 10/01/16 12:23 Dose: 20 units Insulin Detemir (Levemir Vial) 28 units SQ HS [facility] Last Admin: 10/01/16 00:11 Dose: 28 units Magnesium Oxide (Mag-Ox -) 400 mg GT BID [facility] Last Admin: 10/01/16 10:06 Dose: 400 mg Miscellaneous (Duragesic Patch Waste) 1 each TD PRN PRN PRN Reason: PAIN Last Admin: 09/26/16 15:41 Dose: 1 each Ofloxacin (Ocuflox 0.3% Eye Drops -) 1 drop OD Q4HWA [facility] Last Admin: 10/01/16 10:07 Dose: 1 drop Potassium Chloride (Potassium Chloride Oral Liquid) 40 meq GT BID [facility] Last Admin: 10/01/16 10:06 Dose: 40 meq Prednisolone Acetate (Pred Forte 1% -) 1 drop OD BID [facility] Last Admin: 10/01/16 10:06 Dose: 1 drp Ranitidine HCl (Zantac Oral Solution -) 150 mg PO BID [facility] Last Admin: 10/01/16 10:05 Dose: 150 mg - Objective Vital Signs: Vital Signs Temperature 102.9 F H 10/01/16 09:00 Pulse Rate 104 H 10/01/16 09:00 Respiratory Rate 24 10/01/16 14:17 Blood Pressure 137/65 10/01/16 09:00 O2 Sat by Pulse Oximetry (%) 98 09/30/16 10:25 Constitutional: Yes: No Distress, Calm Cardiovascular: Yes: Regular Rate and Rhythm Respiratory: Yes: Poor Air Entry, Rhonchi Gastrointestinal: Yes: Normal Bowel Sounds, Soft, Other (peg in place) Musculoskeletal: Yes: Other Extremities: Yes: Other Neurological: Yes: Alert Psychiatric: Yes: Alert Labs: CBC, BMP 09/26/16 06:00 09/26/16 06:00 INR, PTT INR 1.14 (0.82-1.09) 09/07/16 22:45 Fibrinogen > 700.0 mg/dL (238-498) H 07/31/16 05:40 Assessment/Plan Problem List - Problems (1) Abdominal pain Code(s): R10.9 - UNSPECIFIED ABDOMINAL PAIN Qualifiers: Qualified Code(s): R10.33 - Periumbilical pain (2) Perforated abdominal viscus Code(s): [id number] - (3) Perforated viscus Code(s): R19.8 - OTH SYMPTOMS AND SIGNS INVOLVING THE DGSTV SYS AND ABDOMEN (4) Hypertension Code(s): I10 - ESSENTIAL (PRIMARY) HYPERTENSION Qualifiers: Qualified Code(s): I10 - Essential (primary) hypertension lactic acidosis fevers generalized swelling gangrene of the tip of the fingers noted pseudomonas pneumonia patients sputum again showing multipl organism patient spiking fever because of pneumonia as far as i thinkl plan continue current mgmt nutrition continue abx continue suctioning
[2016-10-01] MEDS: VANCOMYCIN 1,250 MG in DEXTROSE 5%-WATER - 250 ML IVPB SCH (15:28)
[2016-10-01] MEDS: COLLAGENASE CLOSTRIDIUM HIST. 30 GRAMS TUBE TP SCH (15:29)
[2016-10-01] MEDS ORDERED: INSULIN DETEMIR 100 UNITS/ML MDV SQ ONE (18:15)
[2016-10-02] MEDS: ACETAMINOPHEN 650 MG/20.3 ML ORAL SOLUTION (CUPS) PO PRN ×3 (00:04→12:30)
[2016-10-02] MEDS: CEFTAZIDIME PENTAHYDRATE 1 GM in DEXTROSE 5%-WATER - 50 ML IVPB SCH ×3 (02:04→19:46)
[2016-10-02] MEDS: OFLOXACIN 0.3% OPHTHALMIC SOLUTION 5 ML BOTTLE OD SCH ×5 (07:06→22:34)
[2016-10-02] MEDS: INSULIN SLIDING SCALE (NOVOLOG) 1 VIAL SQ SCH ×4 (07:07→22:50)
[2016-10-02] MEDS ORDERED: INSULIN (NOVOLOG) ASPART 100 UNITS/ML 10ML VIAL ONE ×2 (07:20→11:12)
[2016-10-02 07:42] LABS: BASOPHIL 1.3 % (0-2.0); EOSINOPHIL 0.4 % (0-4.5); MCH 28.1 pg (25.7-33.7); MCHC 31.5 g/dl (32.0-36.0); MEAN CELL VOLUME 89.3 fl (80-96); NEUTROPHILS 65.4 % (42.8-82.8); PLATELET COUNT 294 K/MM3 (134-434); RDW 16.5 % (11.6-15.6); WHITE BLOOD COUNT 13.8 K/mm3 (4.0-10.0)
[2016-10-02 08:14] LABS: ALBUMIN 2.3 g/dl (3.4-5.0); ALK PHOS 72 U/L (45-117); ANION GAP 8 (8-16); BILIRUBIN,TOTAL 0.5 mg/dL (0.2-1.0); CALCIUM 9.7 mg/dL (8.5-10.1); CO2 30 mmol/L (21-32); CREATININE 0.6 mg/dL (0.55-1.02); SGOT/AST 22 U/L (15-37); SGPT/ALT 30 U/L (12-78)
[2016-10-02 08:27] LABS: GLUCOSE,RANDOM 374 mg/dL (74-106)
--- NOTE | 2016-10-02 09:29 | PN ---
Progress Note, Physician History of Present Illness: Blood sugar high - Current Medication List Current Medications: Active Medications Acetaminophen (Tylenol Oral Solution -) 650 mg PO Q6H PRN PRN Reason: FEVER OR PAIN Last Admin: 10/02/16 05:49 Dose: 650 mg Clotrimazole (Lotrisone Cream (Small Tube)) 1 applic TP BID [facility] Last Admin: 10/01/16 23:11 Dose: 1 applic Collagenase (Santyl -) 1 applic TP DAILY [facility] Last Admin: 10/01/16 15:29 Dose: 1 applic Dextrose (D50w (Vial) -) 50 gm IVPUSH Q15M PRN PRN Reason: BLOOD SUGAR < 60 Enoxaparin Sodium (Lovenox -) 40 mg SQ BID [facility] Last Admin: 10/01/16 23:13 Dose: 40 mg Furosemide (Lasix -) 20 mg GT DAILY [facility] Last Admin: 10/01/16 10:04 Dose: 20 mg Ceftazidime 1 gm/ Dextrose 50 mls @ 100 mls/hr IVPB Q8H-IV [facility] PRN Reason: Protocol Last Admin: 10/02/16 02:04 Dose: 100 mls/hr Vancomycin HCl 1,250 mg/ (Dextrose) 250 mls @ 166.667 mls/hr IVPB Q24H [facility] PRN Reason: Protocol Last Admin: 10/01/16 15:28 Dose: 166.667 mls/hr Insulin Aspart (Novolog Vial Sliding Scale -) 1 vial SQ ACHS [facility] PRN Reason: Protocol Last Admin: 10/02/16 07:07 Dose: 20 units Insulin Detemir (Levemir Vial) 35 units SQ HS [facility] Magnesium Oxide (Mag-Ox -) 400 mg GT BID [facility] Last Admin: 10/01/16 23:13 Dose: 400 mg Miscellaneous (Duragesic Patch Waste) 1 each TD PRN PRN PRN Reason: PAIN Last Admin: 09/26/16 15:41 Dose: 1 each Ofloxacin (Ocuflox 0.3% Eye Drops -) 1 drop OD Q4HWA [facility] Last Admin: 10/02/16 07:06 Dose: 1 drop Potassium Chloride (Potassium Chloride Oral Liquid) 40 meq GT BID [facility] Last Admin: 10/01/16 23:14 Dose: 40 meq Prednisolone Acetate (Pred Forte 1% -) 1 drop OD BID [facility] Last Admin: 10/01/16 23:15 Dose: 1 drp Ranitidine HCl (Zantac Oral Solution -) 150 mg PO BID [facility] Last Admin: 10/01/16 23:16 Dose: 150 mg - Objective Vital Signs: Vital Signs Temperature 103.4 F H 10/02/16 06:00 Pulse Rate 107 H 10/02/16 06:00 Respiratory Rate 16 10/02/16 06:41 Blood Pressure 139/74 10/02/16 06:00 O2 Sat by Pulse Oximetry (%) 98 09/30/16 10:25 Constitutional: Yes: Calm Eyes: Yes: WNL HENT: Yes: WNL Neck: Yes: WNL Cardiovascular: Yes: Regular Rate and Rhythm Respiratory: Yes: Mechanically Ventilated Gastrointestinal: Yes: Soft ...Rectal Exam: Yes: Deferred Genitourinary: Yes: Incontinence Edema: No Labs: CBC, BMP 10/02/16 06:20 10/02/16 06:20 INR, PTT INR 1.14 (0.82-1.09) 09/07/16 22:45 Fibrinogen > 700.0 mg/dL (238-498) H 07/31/16 05:40 Assessment/Plan Levmir increased to 35 u daily
--- NOTE | 2016-10-02 10:58 | PN ---
Progress Note (short form) - Note Progress Note: Fever. Did not tolerate CPAP wean with high PS this AM. No overall clinical improvement noted. Intake & Output 09/29/16 09/30/16 10/01/16 10/02/16 23:59 23:59 23:59 23:59 Intake Total 2260 1650 2720 950 Output Total 1200 Balance 1060 1650 2720 950 Weight 132 lb 9.6 oz 127 lb 12.8 oz Last Vital Signs Temp Pulse Resp BP Pulse Ox 103.4 F H 107 H 14 139/74 98 10/02/16 06:00 10/02/16 06:00 10/02/16 10:18 10/02/16 06:00 09/30/16 10:25 Active Medications Acetaminophen (Tylenol Oral Solution -) 650 mg PO Q6H PRN PRN Reason: FEVER OR PAIN Last Admin: 10/02/16 05:49 Dose: 650 mg Clotrimazole (Lotrisone Cream (Small Tube)) 1 applic TP BID [facility] Last Admin: 10/01/16 23:11 Dose: 1 applic Collagenase (Santyl -) 1 applic TP DAILY [facility] Last Admin: 10/01/16 15:29 Dose: 1 applic Dextrose (D50w (Vial) -) 50 gm IVPUSH Q15M PRN PRN Reason: BLOOD SUGAR < 60 Enoxaparin Sodium (Lovenox -) 40 mg SQ BID [facility] Last Admin: 10/01/16 23:13 Dose: 40 mg Furosemide (Lasix -) 20 mg GT DAILY [facility] Last Admin: 10/01/16 10:04 Dose: 20 mg Ceftazidime 1 gm/ Dextrose 50 mls @ 100 mls/hr IVPB Q8H-IV [facility] PRN Reason: Protocol Last Admin: 10/02/16 02:04 Dose: 100 mls/hr Vancomycin HCl 1,250 mg/ (Dextrose) 250 mls @ 166.667 mls/hr IVPB Q24H [facility] PRN Reason: Protocol Last Admin: 10/01/16 15:28 Dose: 166.667 mls/hr Insulin Aspart (Novolog Vial Sliding Scale -) 1 vial SQ ACHS [facility] PRN Reason: Protocol Last Admin: 10/02/16 07:07 Dose: 20 units Insulin Detemir (Levemir Vial) 35 units SQ HS [facility] Magnesium Oxide (Mag-Ox -) 400 mg GT BID [facility] Last Admin: 10/01/16 23:13 Dose: 400 mg Miscellaneous (Duragesic Patch Waste) 1 each TD PRN PRN PRN Reason: PAIN Last Admin: 09/26/16 15:41 Dose: 1 each Ofloxacin (Ocuflox 0.3% Eye Drops -) 1 drop OD Q4HWA [facility] Last Admin: 10/02/16 07:06 Dose: 1 drop Potassium Chloride (Potassium Chloride Oral Liquid) 40 meq GT BID [facility] Last Admin: 10/01/16 23:14 Dose: 40 meq Prednisolone Acetate (Pred Forte 1% -) 1 drop OD BID [facility] Last Admin: 10/01/16 23:15 Dose: 1 drp Ranitidine HCl (Zantac Oral Solution -) 150 mg PO BID [facility] Last Admin: 10/01/16 23:16 Dose: 150 mg Gen: NAD, vented Heart: S1S2 Lung: bilateral scattered rhonchi Abd: soft, nontender, +fistula drainage, (+) Feeding tube Ext: multiple ulcers, dry gangrene of bilateral feet, fingers Laboratory Results - last 24 hr 10/01/16 10/01/16 10/01/16 12:22 16:20 21:58 WBC RBC Hgb Hct MCV MCH MCHC RDW Plt Count MPV Neutrophils % Lymphocytes % Monocytes % Eosinophils % Basophils % Sodium Potassium Chloride Carbon Dioxide Anion Gap BUN Creatinine Creat Clearance w eGFR POC Glucometer 390 257 291 Random Glucose Hemoglobin A1c % Calcium Total Bilirubin AST ALT Alkaline Phosphatase Total Protein Albumin 10/02/16 10/02/16 10/02/16 06:03 06:20 06:20 WBC 13.8 H RBC 3.74 Hgb 10.5 L Hct 33.4 MCV 89.3 MCH 28.1 MCHC 31.5 L RDW 16.5 H Plt Count 294 D MPV 9.0 Neutrophils % 65.4 D Lymphocytes % 25.1 D Monocytes % 7.8 Eosinophils % 0.4 D Basophils % 1.3 Sodium 150 H Potassium 4.6 Chloride 112 H Carbon Dioxide 30 Anion Gap 8 BUN 31 H D Creatinine 0.6 D Creat Clearance w eGFR > 60 POC Glucometer 343 Random Glucose 374 H* D Hemoglobin A1c % Calcium 9.7 Total Bilirubin 0.5 AST 22 D ALT 30 D Alkaline Phosphatase 72 D Total Protein 7.0 Albumin 2.3 L 10/02/16 06:20 WBC RBC Hgb Hct MCV MCH MCHC RDW Plt Count MPV Neutrophils % Lymphocytes % Monocytes % Eosinophils % Basophils % Sodium Potassium Chloride Carbon Dioxide Anion Gap BUN Creatinine Creat Clearance w eGFR POC Glucometer Random Glucose Hemoglobin A1c % 7.6 H D Calcium Total Bilirubin AST ALT Alkaline Phosphatase Total Protein Albumin A/P Bibasilar atelectasis -> does not account for high grade fever Perforated Duodenal Ulcer Peritonitis s/p ex-lap/omental patch repair 07/16 Enterocutaneous Fistula Acute Respiratory Failure s/p Tracheostomy s/p Septic Shock DM DVT Gangrene s/p PEA Cardiac Arrest - ABX Per ID - Lovenox BID - morphine for comfort - enteral feeds as tolerated - Patient is not adequately tolerating spontaneous breathing trials - prognosis is poor, continue discussions regarding advanced directives and goals of care - recommend palliative/supportive care due to failure to wean, anticipated amputations, poor quality of life, evolving medical issues Dr Dubon
[2016-10-02] MEDS: MAGNESIUM OXIDE 400 MG TABLET (FP) GT SCH (11:27)
[2016-10-02] MEDS: RANITIDINE HCL 150 MG/10 ML UNIT-DOSE CUP PO SCH (11:27)
[2016-10-02] MEDS: POTASSIUM CHLORIDE ORAL LIQUID 20 MEQ/15 ML GT SCH (11:27)
[2016-10-02] MEDS: FUROSEMIDE 20 MG TABLET (FP) GT SCH (11:28)
[2016-10-02] MEDS: CLOTRIMAZOLE/BETAMET DIPROP 15 GM TUBE TP SCH ×2 (11:28→22:34)
[2016-10-02] MEDS: ENOXAPARIN NA (PORCINE) 40 MG/0.4 ML DISP.SYRIN SQ SCH ×2 (11:28→22:25)
[2016-10-02] MEDS: prednisoLONE ACETATE 1% OPHTH SUSP 5 ML BOTTLE OD SCH ×2 (11:30→22:51)
[2016-10-02] MEDS: COLLAGENASE CLOSTRIDIUM HIST. 30 GRAMS TUBE TP SCH (13:25)
[2016-10-02] MEDS: VANCOMYCIN 1,250 MG in DEXTROSE 5%-WATER - 250 ML IVPB SCH (15:52)
--- NOTE | 2016-10-02 15:54 | PN ---
Progress Note, Physician History of Present Illness: patient still spiking fevers awaiting for final cx other cx noted - Current Medication List Current Medications: Active Medications Acetaminophen (Tylenol Oral Solution -) 650 mg PO Q6H PRN PRN Reason: FEVER OR PAIN Last Admin: 10/02/16 12:30 Dose: 650 mg Clotrimazole (Lotrisone Cream (Small Tube)) 1 applic TP BID [facility] Last Admin: 10/02/16 11:28 Dose: 1 applic Collagenase (Santyl -) 1 applic TP DAILY [facility] Last Admin: 10/02/16 13:25 Dose: 1 applic Dextrose (D50w (Vial) -) 50 gm IVPUSH Q15M PRN PRN Reason: BLOOD SUGAR < 60 Enoxaparin Sodium (Lovenox -) 40 mg SQ BID [facility] Last Admin: 10/02/16 11:28 Dose: 40 mg Furosemide (Lasix -) 20 mg GT DAILY [facility] Last Admin: 10/02/16 11:28 Dose: 20 mg Ceftazidime 1 gm/ Dextrose 50 mls @ 100 mls/hr IVPB Q8H-IV [facility] PRN Reason: Protocol Last Admin: 10/02/16 11:28 Dose: 100 mls/hr Vancomycin HCl 1,250 mg/ (Dextrose) 250 mls @ 166.667 mls/hr IVPB Q24H [facility] PRN Reason: Protocol Last Admin: 10/01/16 15:28 Dose: 166.667 mls/hr Insulin Aspart (Novolog Vial Sliding Scale -) 1 vial SQ ACHS [facility] PRN Reason: Protocol Last Admin: 10/02/16 11:19 Dose: 8 units Insulin Detemir (Levemir Vial) 35 units SQ HS [facility] Magnesium Oxide (Mag-Ox -) 400 mg GT BID [facility] Last Admin: 10/02/16 11:27 Dose: 400 mg Miscellaneous (Duragesic Patch Waste) 1 each TD PRN PRN PRN Reason: PAIN Last Admin: 09/26/16 15:41 Dose: 1 each Ofloxacin (Ocuflox 0.3% Eye Drops -) 1 drop OD Q4HWA [facility] Last Admin: 10/02/16 13:25 Dose: 1 drop Potassium Chloride (Potassium Chloride Oral Liquid) 40 meq GT BID [facility] Last Admin: 10/02/16 11:27 Dose: 40 meq Prednisolone Acetate (Pred Forte 1% -) 1 drop OD BID [facility] Last Admin: 10/02/16 11:30 Dose: 1 drp Ranitidine HCl (Zantac Oral Solution -) 150 mg PO BID [facility] Last Admin: 10/02/16 11:27 Dose: 150 mg - Objective Vital Signs: Vital Signs Temperature 100.9 F H 10/02/16 14:40 Pulse Rate 107 H 10/02/16 14:40 Respiratory Rate 25 H 10/02/16 14:40 Blood Pressure 111/66 10/02/16 14:40 O2 Sat by Pulse Oximetry (%) 98 09/30/16 10:25 Constitutional: Yes: Other Neck: Yes: Other Cardiovascular: Yes: Regular Rate and Rhythm Respiratory: Yes: Mechanically Ventilated, Other (tracheostomy) Gastrointestinal: Yes: Normal Bowel Sounds, Soft, Other (peg) Musculoskeletal: Yes: Other Extremities: Yes: Other Neurological: Yes: Alert Psychiatric: Yes: Other Labs: CBC, BMP 10/02/16 06:20 10/02/16 06:20 INR, PTT INR 1.14 (0.82-1.09) 09/07/16 22:45 Fibrinogen > 700.0 mg/dL (238-498) H 07/31/16 05:40 Assessment/Plan Problem List - Problems (1) Abdominal pain Code(s): R10.9 - UNSPECIFIED ABDOMINAL PAIN Qualifiers: Qualified Code(s): R10.33 - Periumbilical pain (2) Perforated abdominal viscus Code(s): [id number] - (3) Perforated viscus Code(s): R19.8 - OTH SYMPTOMS AND SIGNS INVOLVING THE DGSTV SYS AND ABDOMEN (4) Hypertension Code(s): I10 - ESSENTIAL (PRIMARY) HYPERTENSION Qualifiers: Qualified Code(s): I10 - Essential (primary) hypertension lactic acidosis fevers generalized swelling gangrene of the tip of the fingers noted pseudomonas pneumonia plan continue current mgmt nutrition continue abx continue suctioning [facility] have to add another abx
[2016-10-02] MEDS ORDERED: ACETAMINOPHEN 1000 MG/100 ML VIAL (NON FORMULARY) IVPB ONE (18:30)
[2016-10-02] MEDS ORDERED: INSULIN DETEMIR 100 UNITS/ML MDV SQ SCH (22:00)
[2016-10-02] MEDS: morphine CARPU-JECT 2 MG/1 ML DISP.SYRIN IVPUSH PRN (22:28)
[2016-10-02] MEDS ORDERED: PT OWN MED DRAWER 7, Y5N ONE (22:31)
[2016-10-03] MEDS ORDERED: ACETAMINOPHEN 1000 MG/100 ML VIAL (NON FORMULARY) IVPB ONE ×2 (01:45→07:15)
[2016-10-03] MEDS: CEFTAZIDIME PENTAHYDRATE 1 GM in DEXTROSE 5%-WATER - 50 ML IVPB SCH ×3 (01:59→18:41)
[2016-10-03] MEDS: INSULIN SLIDING SCALE (NOVOLOG) 1 VIAL SQ SCH ×3 (06:11→17:35)
[2016-10-03] MEDS: OFLOXACIN 0.3% OPHTHALMIC SOLUTION 5 ML BOTTLE OD SCH ×5 (06:11→23:55)
[2016-10-03] MEDS ORDERED: INSULIN DETEMIR 100 UNITS/ML MDV SQ ONE (06:45)
[2016-10-03] MEDS ORDERED: INSULIN (NOVOLOG) ASPART 100 UNITS/ML 10ML VIAL ONE ×2 (06:45→11:03)
--- NOTE | 2016-10-03 09:23 | PN ---
Progress Note, Physician Chief Complaint: GT tube came out History of Present Illness: Continues to spike fever GT tube is out,Dr Butts called to re insert - Current Medication List Current Medications: Active Medications Acetaminophen (Tylenol Oral Solution -) 650 mg PO Q6H PRN PRN Reason: FEVER OR PAIN Last Admin: 10/02/16 12:30 Dose: 650 mg Clotrimazole (Lotrisone Cream (Small Tube)) 1 applic TP BID [facility] Last Admin: 10/02/16 22:34 Dose: 1 applic Collagenase (Santyl -) 1 applic TP DAILY [facility] Last Admin: 10/02/16 13:25 Dose: 1 applic Dextrose (D50w (Vial) -) 50 gm IVPUSH Q15M PRN PRN Reason: BLOOD SUGAR < 60 Enoxaparin Sodium (Lovenox -) 40 mg SQ BID [facility] Last Admin: 10/02/16 22:25 Dose: 40 mg Furosemide (Lasix -) 20 mg GT DAILY [facility] Last Admin: 10/02/16 11:28 Dose: 20 mg Ceftazidime 1 gm/ Dextrose 50 mls @ 100 mls/hr IVPB Q8H-IV [facility] PRN Reason: Protocol Last Admin: 10/03/16 01:59 Dose: 100 mls/hr Vancomycin HCl 1,250 mg/ (Dextrose) 250 mls @ 166.667 mls/hr IVPB Q24H [facility] PRN Reason: Protocol Last Admin: 10/02/16 15:52 Dose: 166.667 mls/hr Insulin Aspart (Novolog Vial Sliding Scale -) 1 vial SQ ACHS [facility] PRN Reason: Protocol Last Admin: 10/03/16 06:11 Dose: 12 units Insulin Detemir (Levemir Vial) 35 units SQ HS [facility] Magnesium Oxide (Mag-Ox -) 400 mg GT BID [facility] [place] Last Admin: 10/02/16 11:27 Dose: 400 mg Miscellaneous (Duragesic Patch Waste) 1 each TD PRN PRN PRN Reason: PAIN Last Admin: 09/26/16 15:41 Dose: 1 each Morphine Sulfate (Morphine Injection -) 2 mg IVPUSH Q4H PRN PRN Reason: PAIN Last Admin: 10/02/16 22:28 Dose: 2 mg Ofloxacin (Ocuflox 0.3% Eye Drops -) 1 drop OD Q4HWA [facility] [place] Last Admin: 10/03/16 06:11 Dose: 1 drop Potassium Chloride (Potassium Chloride Oral Liquid) 40 meq GT BID [facility] [place] Last Admin: 10/02/16 11:27 Dose: 40 meq Prednisolone Acetate (Pred Forte 1% -) 1 drop OD BID [facility] Last Admin: 10/02/16 22:51 Dose: 1 drp Ranitidine HCl (Zantac Oral Solution -) 150 mg PO BID [facility] Last Admin: 10/02/16 11:27 Dose: 150 mg - Objective Vital Signs: Vital Signs Temperature 101.6 F H 10/03/16 06:59 Pulse Rate 92 H 10/03/16 06:59 Respiratory Rate 16 10/03/16 06:59 Blood Pressure 134/64 10/03/16 06:59 O2 Sat by Pulse Oximetry (%) 98 09/30/16 10:25 Constitutional: Yes: Calm Eyes: Yes: WNL HENT: Yes: WNL Neck: Yes: WNL Cardiovascular: Yes: WNL Respiratory: Yes: Mechanically Ventilated Gastrointestinal: Yes: Other (GT tube to be reinseted) Labs: CBC, BMP 10/02/16 06:20 10/02/16 06:20 INR, PTT INR 1.14 (0.82-1.09) 09/07/16 22:45 Fibrinogen > 700.0 mg/dL (238-498) H 07/31/16 05:40
[2016-10-03] MEDS: CLOTRIMAZOLE/BETAMET DIPROP 15 GM TUBE TP SCH ×2 (11:07→23:55)
[2016-10-03] MEDS: ENOXAPARIN NA (PORCINE) 40 MG/0.4 ML DISP.SYRIN SQ SCH ×2 (11:08→23:54)
[2016-10-03] MEDS: prednisoLONE ACETATE 1% OPHTH SUSP 5 ML BOTTLE OD SCH ×2 (11:10→23:56)
[2016-10-03] MEDS: POTASSIUM CHLORIDE ORAL LIQUID 20 MEQ/15 ML GT SCH ×2 (13:18→23:54)
[2016-10-03] MEDS: FUROSEMIDE 20 MG TABLET (FP) GT SCH (13:18)
[2016-10-03] MEDS: COLLAGENASE CLOSTRIDIUM HIST. 30 GRAMS TUBE TP SCH (13:18)
[2016-10-03] MEDS: MAGNESIUM OXIDE 400 MG TABLET (FP) GT SCH ×2 (13:19→23:54)
--- NOTE | 2016-10-03 14:22 | PN ---
Progress Note, Physician History of Present Illness: continues to remain febrile loose stools - Current Medication List Current Medications: Active Medications Acetaminophen (Tylenol Oral Solution -) 650 mg PO Q6H PRN PRN Reason: FEVER OR PAIN Last Admin: 10/02/16 12:30 Dose: 650 mg Clotrimazole (Lotrisone Cream (Small Tube)) 1 applic TP BID [facility] Last Admin: 10/03/16 11:07 Dose: 1 applic Collagenase (Santyl -) 1 applic TP DAILY [facility] Last Admin: 10/03/16 13:18 Dose: 1 applic Dextrose (D50w (Vial) -) 50 gm IVPUSH Q15M PRN PRN Reason: BLOOD SUGAR < 60 Enoxaparin Sodium (Lovenox -) 40 mg SQ BID [facility] Last Admin: 10/03/16 11:08 Dose: Not Given Furosemide (Lasix -) 20 mg GT DAILY [facility] Last Admin: 10/03/16 13:18 Dose: 20 mg Ceftazidime 1 gm/ Dextrose 50 mls @ 100 mls/hr IVPB Q8H-IV [facility] PRN Reason: Protocol Last Admin: 10/03/16 11:06 Dose: 100 mls/hr Vancomycin HCl 1,250 mg/ (Dextrose) 250 mls @ 166.667 mls/hr IVPB Q24H [facility] PRN Reason: Protocol Last Admin: 10/02/16 15:52 Dose: 166.667 mls/hr Insulin Aspart (Novolog Vial Sliding Scale -) 1 vial SQ ACHS [facility] PRN Reason: Protocol Last Admin: 10/03/16 13:20 Dose: 4 units Insulin Detemir (Levemir Vial) 35 units SQ HS [facility] Magnesium Oxide (Mag-Ox -) 400 mg GT BID [facility] Last Admin: 10/03/16 13:19 Dose: 400 mg Miscellaneous (Duragesic Patch Waste) 1 each TD PRN PRN PRN Reason: PAIN Last Admin: 09/26/16 15:41 Dose: 1 each Morphine Sulfate (Morphine Injection -) 2 mg IVPUSH Q4H PRN PRN Reason: PAIN Last Admin: 10/02/16 22:28 Dose: 2 mg Ofloxacin (Ocuflox 0.3% Eye Drops -) 1 drop OD Q4HWA [facility] Last Admin: 10/03/16 13:24 Dose: 1 drop Potassium Chloride (Potassium Chloride Oral Liquid) 40 meq GT BID [facility] Last Admin: 10/03/16 13:18 Dose: 40 meq Prednisolone Acetate (Pred Forte 1% -) 1 drop OD BID [facility] Last Admin: 10/03/16 11:10 Dose: 1 drp Ranitidine HCl (Zantac Oral Solution -) 150 mg PO BID [facility] Last Admin: 10/02/16 11:27 Dose: 150 mg - Objective Vital Signs: Vital Signs Temperature 99.6 F 10/03/16 10:00 Pulse Rate 92 H 10/03/16 12:19 Respiratory Rate 23 10/03/16 13:48 Blood Pressure 124/60 10/03/16 12:19 O2 Sat by Pulse Oximetry (%) 100 10/03/16 12:19 Constitutional: Yes: Other Neck: Yes: Supple Cardiovascular: Yes: Regular Rate and Rhythm Respiratory: Yes: Mechanically Ventilated, Other (poor entry) Gastrointestinal: Yes: Normal Bowel Sounds, Soft, Other (peg in place) Genitourinary: Yes: Anuria Musculoskeletal: Yes: Other Extremities: Yes: Other Neurological: Yes: Alert, Other Labs: CBC, BMP 10/02/16 06:20 10/02/16 06:20 INR, PTT INR 1.14 (0.82-1.09) 09/07/16 22:45 Fibrinogen > 700.0 mg/dL (238-498) H 07/31/16 05:40 Assessment/Plan Problem List - Problems (1) Abdominal pain Code(s): R10.9 - UNSPECIFIED ABDOMINAL PAIN Qualifiers: Qualified Code(s): R10.33 - Periumbilical pain (2) Perforated abdominal viscus Code(s): OGB0441 - (3) Perforated viscus Code(s): R19.8 - OTH SYMPTOMS AND SIGNS INVOLVING THE DGSTV SYS AND ABDOMEN (4) Hypertension Code(s): I10 - ESSENTIAL (PRIMARY) HYPERTENSION Qualifiers: Qualified Code(s): I10 - Essential (primary) hypertension lactic acidosis fevers generalized swelling gangrene of the tip of the fingers noted pseudomonas pneumonia plan continue current mgmt nutrition continue abx continue suctioning will send cdiff will check vanco trough
[2016-10-03] MEDS: VANCOMYCIN 1,250 MG in DEXTROSE 5%-WATER - 250 ML IVPB SCH (15:28)
[2016-10-03] MEDS: ACETAMINOPHEN 650 MG/20.3 ML ORAL SOLUTION (CUPS) PO PRN (23:54)
[2016-10-03] MEDS: morphine CARPU-JECT 2 MG/1 ML DISP.SYRIN IVPUSH PRN (23:55)
[2016-10-04] MEDS: CEFTAZIDIME PENTAHYDRATE 1 GM in DEXTROSE 5%-WATER - 50 ML IVPB SCH ×3 (02:31→18:45)
[2016-10-04] MEDS: OFLOXACIN 0.3% OPHTHALMIC SOLUTION 5 ML BOTTLE OD SCH ×5 (06:30→21:58)
[2016-10-04] MEDS: INSULIN SLIDING SCALE (NOVOLOG) 1 VIAL SQ SCH ×5 (06:45→21:55)
--- NOTE | 2016-10-04 10:44 | PN ---
Progress Note, Physician History of Present Illness: still with fever but the curve is better peg tube changed - Current Medication List Current Medications: Active Medications Acetaminophen (Tylenol Oral Solution -) 650 mg PO Q6H PRN PRN Reason: FEVER OR PAIN Last Admin: 10/03/16 23:54 Dose: 650 mg Clotrimazole (Lotrisone Cream (Small Tube)) 1 applic TP BID [facility] Last Admin: 10/03/16 23:55 Dose: 1 applic Collagenase (Santyl -) 1 applic TP DAILY [facility] Last Admin: 10/03/16 13:18 Dose: 1 applic Dextrose (D50w (Vial) -) 50 gm IVPUSH Q15M PRN PRN Reason: BLOOD SUGAR < 60 Enoxaparin Sodium (Lovenox -) 40 mg SQ BID [facility] Last Admin: 10/03/16 23:54 Dose: 40 mg Furosemide (Lasix -) 20 mg GT DAILY [facility] Last Admin: 10/03/16 13:18 Dose: 20 mg Ceftazidime 1 gm/ Dextrose 50 mls @ 100 mls/hr IVPB Q8H-IV [facility] PRN Reason: Protocol Last Admin: 10/04/16 02:31 Dose: 100 mls/hr Vancomycin HCl 1,250 mg/ (Dextrose) 250 mls @ 166.667 mls/hr IVPB Q24H [facility] PRN Reason: Protocol Last Admin: 10/03/16 15:28 Dose: 166.667 mls/hr Insulin Aspart (Novolog Vial Sliding Scale -) 1 vial SQ ACHS [facility] PRN Reason: Protocol Last Admin: 10/04/16 06:45 Dose: 20 units Insulin Detemir (Levemir Vial) 35 units SQ HS [facility] Last Admin: 10/03/16 23:56 Dose: 35 units Magnesium Oxide (Mag-Ox -) 400 mg GT BID [facility] Last Admin: 10/03/16 23:54 Dose: 400 mg Miscellaneous (Duragesic Patch Waste) 1 each TD PRN PRN PRN Reason: PAIN Last Admin: 09/26/16 15:41 Dose: 1 each Morphine Sulfate (Morphine Injection -) 2 mg IVPUSH Q4H PRN PRN Reason: PAIN Last Admin: 10/03/16 23:55 Dose: 2 mg Ofloxacin (Ocuflox 0.3% Eye Drops -) 1 drop OD Q4HWA [facility] Last Admin: 10/04/16 06:30 Dose: 1 drop Potassium Chloride (Potassium Chloride Oral Liquid) 40 meq GT BID [facility] Last Admin: 10/03/16 23:54 Dose: 40 meq Prednisolone Acetate (Pred Forte 1% -) 1 drop OD BID [facility] Last Admin: 10/03/16 23:56 Dose: 1 drp Ranitidine HCl (Zantac Oral Solution -) 150 mg PO BID [facility] Last Admin: 10/02/16 11:27 Dose: 150 mg - Objective Vital Signs: Vital Signs Temperature 98.4 F 10/04/16 06:00 Pulse Rate 85 10/04/16 06:00 Respiratory Rate 19 10/04/16 06:45 Blood Pressure 108/47 10/04/16 06:00 O2 Sat by Pulse Oximetry (%) 100 10/03/16 12:19 Constitutional: Yes: Calm, Other Neck: Yes: Other Cardiovascular: Yes: Regular Rate and Rhythm Respiratory: Yes: Mechanically Ventilated, Poor Air Entry Gastrointestinal: Yes: Normal Bowel Sounds, Soft, Other (peg in place) Musculoskeletal: Yes: WNL Extremities: Yes: WNL Neurological: Yes: Alert, Oriented Labs: CBC, BMP 10/02/16 06:20 10/02/16 06:20 INR, PTT INR 1.14 (0.82-1.09) 09/07/16 22:45 Fibrinogen > 700.0 mg/dL (238-498) H 07/31/16 05:40 Assessment/Plan Problem List - Problems (1) Abdominal pain Code(s): R10.9 - UNSPECIFIED ABDOMINAL PAIN Qualifiers: Qualified Code(s): R10.33 - Periumbilical pain (2) Perforated abdominal viscus Code(s): [id number] - (3) Perforated viscus Code(s): R19.8 - OTH SYMPTOMS AND SIGNS INVOLVING THE DGSTV SYS AND ABDOMEN (4) Hypertension Code(s): I10 - ESSENTIAL (PRIMARY) HYPERTENSION Qualifiers: Qualified Code(s): I10 - Essential (primary) hypertension lactic acidosis fevers generalized swelling gangrene of the tip of the fingers noted pseudomonas pneumonia plan continue current mgmt nutrition continue abx continue suctioning await for cdiff results
[2016-10-04] MEDS ORDERED: PT OWN MED DRAWER 7, Y5N ONE ×2 (10:51→16:42)
--- NOTE | 2016-10-04 11:08 | PN ---
Progress Note, Physician Chief Complaint: No new complaints History of Present Illness: PEG changed - Current Medication List Current Medications: Active Medications Acetaminophen (Tylenol Oral Solution -) 650 mg PO Q6H PRN PRN Reason: FEVER OR PAIN Last Admin: 10/03/16 23:54 Dose: 650 mg Clotrimazole (Lotrisone Cream (Small Tube)) 1 applic TP BID [facility] Last Admin: 10/03/16 23:55 Dose: 1 applic Collagenase (Santyl -) 1 applic TP DAILY [facility] Last Admin: 10/03/16 13:18 Dose: 1 applic Dextrose (D50w (Vial) -) 50 gm IVPUSH Q15M PRN PRN Reason: BLOOD SUGAR < 60 Enoxaparin Sodium (Lovenox -) 40 mg SQ BID [facility] Last Admin: 10/03/16 23:54 Dose: 40 mg Furosemide (Lasix -) 20 mg GT DAILY [facility] Last Admin: 10/03/16 13:18 Dose: 20 mg Ceftazidime 1 gm/ Dextrose 50 mls @ 100 mls/hr IVPB Q8H-IV [facility] PRN Reason: Protocol Last Admin: 10/04/16 02:31 Dose: 100 mls/hr Vancomycin HCl 1,250 mg/ (Dextrose) 250 mls @ 166.667 mls/hr IVPB Q24H [facility] PRN Reason: Protocol Last Admin: 10/03/16 15:28 Dose: 166.667 mls/hr Insulin Aspart (Novolog Vial Sliding Scale -) 1 vial SQ ACHS [facility] PRN Reason: Protocol Last Admin: 10/04/16 06:45 Dose: 20 units Insulin Detemir (Levemir Vial) 35 units SQ HS [facility] Last Admin: 10/03/16 23:56 Dose: 35 units Magnesium Oxide (Mag-Ox -) 400 mg GT BID [facility] Last Admin: 10/03/16 23:54 Dose: 400 mg Miscellaneous (Duragesic Patch Waste) 1 each TD PRN PRN PRN Reason: PAIN Last Admin: 09/26/16 15:41 Dose: 1 each Morphine Sulfate (Morphine Injection -) 2 mg IVPUSH Q4H PRN PRN Reason: PAIN Last Admin: 10/03/16 23:55 Dose: 2 mg Ofloxacin (Ocuflox 0.3% Eye Drops -) 1 drop OD Q4HWA [facility] Last Admin: 10/04/16 06:30 Dose: 1 drop Potassium Chloride (Potassium Chloride Oral Liquid) 40 meq GT BID [facility] Last Admin: 10/03/16 23:54 Dose: 40 meq Prednisolone Acetate (Pred Forte 1% -) 1 drop OD BID [facility] Last Admin: 10/03/16 23:56 Dose: 1 drp Ranitidine HCl (Zantac Oral Solution -) 150 mg PO BID [facility] Last Admin: 10/02/16 11:27 Dose: 150 mg - Objective Vital Signs: Vital Signs Temperature 98.4 F 10/04/16 06:00 Pulse Rate 85 10/04/16 06:00 Respiratory Rate 19 10/04/16 06:45 Blood Pressure 108/47 10/04/16 06:00 O2 Sat by Pulse Oximetry (%) 100 10/03/16 12:19 Constitutional: Yes: No Distress Eyes: Yes: WNL Neck: Yes: Supple Cardiovascular: Yes: Regular Rate and Rhythm Respiratory: Yes: Mechanically Ventilated Gastrointestinal: Yes: Normal Bowel Sounds ...Rectal Exam: Yes: Deferred Extremities: Yes: Cyanosis Wound/Incision: Yes: Clean/Dry Neurological: Yes: Oriented Labs: CBC, BMP 10/02/16 06:20 10/02/16 06:20 INR, PTT INR 1.14 (0.82-1.09) 09/07/16 22:45 Fibrinogen > 700.0 mg/dL (238-498) H 07/31/16 05:40 Assessment/Plan Increase Lantus insulin
[2016-10-04] MEDS: CLOTRIMAZOLE/BETAMET DIPROP 15 GM TUBE TP SCH ×2 (11:30→21:57)
[2016-10-04] MEDS: RANITIDINE HCL 150 MG/10 ML UNIT-DOSE CUP PO SCH ×2 (11:30→21:54)
[2016-10-04] MEDS: POTASSIUM CHLORIDE ORAL LIQUID 20 MEQ/15 ML GT SCH ×2 (11:30→21:53)
[2016-10-04] MEDS: prednisoLONE ACETATE 1% OPHTH SUSP 5 ML BOTTLE OD SCH ×2 (11:30→21:58)
[2016-10-04] MEDS: COLLAGENASE CLOSTRIDIUM HIST. 30 GRAMS TUBE TP SCH (11:30)
[2016-10-04] MEDS: FUROSEMIDE 20 MG TABLET (FP) GT SCH (11:30)
[2016-10-04] MEDS: MAGNESIUM OXIDE 400 MG TABLET (FP) GT SCH ×2 (11:31→21:53)
[2016-10-04] MEDS: ENOXAPARIN NA (PORCINE) 40 MG/0.4 ML DISP.SYRIN SQ SCH ×2 (11:31→21:54)
[2016-10-04] MEDS: ACETAMINOPHEN 650 MG/20.3 ML ORAL SOLUTION (CUPS) PO PRN (11:33)
[2016-10-04] MEDS: morphine CARPU-JECT 4 MG/1 ML DISP.SYRIN IVPUSH PRN ×3 (12:03→23:15)
[2016-10-04] MEDS ORDERED: INSULIN (NOVOLOG) ASPART 100 UNITS/ML 10ML VIAL ONE ×2 (12:41→18:24)
[2016-10-04] MEDS: VANCOMYCIN 1,250 MG in DEXTROSE 5%-WATER - 250 ML IVPB SCH (17:21)
[2016-10-04] MEDS: INSULIN DETEMIR 100 UNITS/ML MDV SQ SCH (21:54)
[2016-10-05] MEDS ORDERED: PT OWN MED DRAWER 7, Y5N ONE ×5 (01:57→22:10)
[2016-10-05] MEDS: CEFTAZIDIME PENTAHYDRATE 1 GM in DEXTROSE 5%-WATER - 50 ML IVPB SCH ×3 (02:09→18:22)
[2016-10-05] MEDS: OFLOXACIN 0.3% OPHTHALMIC SOLUTION 5 ML BOTTLE OD SCH ×5 (06:56→23:00)
[2016-10-05] MEDS: INSULIN SLIDING SCALE (NOVOLOG) 1 VIAL SQ SCH ×4 (06:56→22:24)
[2016-10-05] MEDS: ACETAMINOPHEN 650 MG/20.3 ML ORAL SOLUTION (CUPS) PO PRN ×2 (07:54→13:27)
[2016-10-05] MEDS: morphine CARPU-JECT 4 MG/1 ML DISP.SYRIN IVPUSH PRN ×3 (10:28→22:48)
[2016-10-05] MEDS: FUROSEMIDE 20 MG TABLET (FP) GT SCH (10:29)
[2016-10-05] MEDS: ENOXAPARIN NA (PORCINE) 40 MG/0.4 ML DISP.SYRIN SQ SCH ×2 (10:29→22:29)
[2016-10-05] MEDS: MAGNESIUM OXIDE 400 MG TABLET (FP) GT SCH ×2 (10:29→22:26)
[2016-10-05] MEDS: RANITIDINE HCL 150 MG/10 ML UNIT-DOSE CUP PO SCH ×2 (10:29→22:26)
[2016-10-05] MEDS: POTASSIUM CHLORIDE ORAL LIQUID 20 MEQ/15 ML GT SCH ×2 (10:29→22:26)
[2016-10-05] MEDS: prednisoLONE ACETATE 1% OPHTH SUSP 5 ML BOTTLE OD SCH ×2 (10:30→22:27)
--- NOTE | 2016-10-05 10:40 | PN ---
Progress Note, Physician History of Present Illness: Has fever on and off - Current Medication List Current Medications: Active Medications Acetaminophen (Tylenol Oral Solution -) 650 mg PO Q6H PRN PRN Reason: FEVER OR PAIN Last Admin: 10/05/16 07:54 Dose: 650 mg Clotrimazole (Lotrisone Cream (Small Tube)) 1 applic TP BID [facility] Last Admin: 10/04/16 21:57 Dose: 1 applic Collagenase (Santyl -) 1 applic TP DAILY [facility] Last Admin: 10/04/16 11:30 Dose: 1 applic Dextrose (D50w (Vial) -) 50 gm IVPUSH Q15M PRN PRN Reason: BLOOD SUGAR < 60 Enoxaparin Sodium (Lovenox -) 40 mg SQ BID [facility] Last Admin: 10/05/16 10:29 Dose: 40 mg Furosemide (Lasix -) 20 mg GT DAILY [facility] Last Admin: 10/05/16 10:29 Dose: 20 mg Ceftazidime 1 gm/ Dextrose 50 mls @ 100 mls/hr IVPB Q8H-IV [facility] PRN Reason: Protocol Last Admin: 10/05/16 10:27 Dose: 100 mls/hr Vancomycin HCl 1,250 mg/ (Dextrose) 250 mls @ 166.667 mls/hr IVPB Q24H [facility] PRN Reason: Protocol Last Admin: 10/04/16 17:21 Dose: 166.667 mls/hr Insulin Aspart (Novolog Vial Sliding Scale -) 1 vial SQ ACHS [facility] PRN Reason: Protocol Last Admin: 10/05/16 06:56 Dose: 8 units Insulin Detemir (Levemir Vial) 40 units SQ HS [facility] Last Admin: 10/04/16 21:54 Dose: 40 units Magnesium Oxide (Mag-Ox -) 400 mg GT BID [facility] Last Admin: 10/05/16 10:29 Dose: 400 mg Miscellaneous (Duragesic Patch Waste) 1 each TD PRN PRN PRN Reason: PAIN Last Admin: 09/26/16 15:41 Dose: 1 each Morphine Sulfate (Morphine Injection -) 2 mg IVPUSH Q4H PRN PRN Reason: PAIN Last Admin: 10/05/16 10:28 Dose: 2 mg Ofloxacin (Ocuflox 0.3% Eye Drops -) 1 drop OD Q4HWA [facility] Last Admin: 10/05/16 10:30 Dose: 1 drop Potassium Chloride (Potassium Chloride Oral Liquid) 40 meq GT BID [facility] Last Admin: 10/05/16 10:29 Dose: 40 meq Prednisolone Acetate (Pred Forte 1% -) 1 drop OD BID [facility] Last Admin: 10/05/16 10:30 Dose: 1 drp Ranitidine HCl (Zantac Oral Solution -) 150 mg PO BID [facility] Last Admin: 10/05/16 10:29 Dose: 150 mg - Objective Vital Signs: Vital Signs Temperature 101.4 F H 10/05/16 06:00 Pulse Rate 90 10/05/16 06:00 Respiratory Rate 18 10/05/16 06:45 Blood Pressure 106/53 10/05/16 06:00 O2 Sat by Pulse Oximetry (%) 100 10/03/16 12:19 Constitutional: Yes: No Distress Eyes: Yes: WNL HENT: Yes: WNL Neck: Yes: WNL Cardiovascular: Yes: WNL Respiratory: Yes: Mechanically Ventilated Gastrointestinal: Yes: Normal Bowel Sounds ...Rectal Exam: Yes: Other (has rectal tube in place) Genitourinary: Yes: Incontinence Breast(s): Yes: WNL Edema: No Integumentary: Yes: Pressure Ulcer Neurological: Yes: Lethargy Labs: CBC, BMP 10/02/16 06:20 10/02/16 06:20 INR, PTT INR 1.14 (0.82-1.09) 09/07/16 22:45 Fibrinogen > 700.0 mg/dL (238-498) H 07/31/16 05:40 Assessment/Plan continue same trt
--- NOTE | 2016-10-05 11:27 | PN ---
Progress Note, Physician History of Present Illness: still with fever no changes - Current Medication List Current Medications: Active Medications Acetaminophen (Tylenol Oral Solution -) 650 mg PO Q6H PRN PRN Reason: FEVER OR PAIN Last Admin: 10/05/16 07:54 Dose: 650 mg Clotrimazole (Lotrisone Cream (Small Tube)) 1 applic TP BID [facility] Last Admin: 10/04/16 21:57 Dose: 1 applic Collagenase (Santyl -) 1 applic TP DAILY [facility] Last Admin: 10/04/16 11:30 Dose: 1 applic Dextrose (D50w (Vial) -) 50 gm IVPUSH Q15M PRN PRN Reason: BLOOD SUGAR < 60 Enoxaparin Sodium (Lovenox -) 40 mg SQ BID [facility] Last Admin: 10/05/16 10:29 Dose: 40 mg Furosemide (Lasix -) 20 mg GT DAILY [facility] Last Admin: 10/05/16 10:29 Dose: 20 mg Ceftazidime 1 gm/ Dextrose 50 mls @ 100 mls/hr IVPB Q8H-IV [facility] PRN Reason: Protocol Last Admin: 10/05/16 10:27 Dose: 100 mls/hr Vancomycin HCl 1,250 mg/ (Dextrose) 250 mls @ 166.667 mls/hr IVPB Q24H [facility] PRN Reason: Protocol Last Admin: 10/04/16 17:21 Dose: 166.667 mls/hr Insulin Aspart (Novolog Vial Sliding Scale -) 1 vial SQ ACHS [facility] PRN Reason: Protocol Last Admin: 10/05/16 06:56 Dose: 8 units Insulin Detemir (Levemir Vial) 40 units SQ HS [facility] Last Admin: 10/04/16 21:54 Dose: 40 units Magnesium Oxide (Mag-Ox -) 400 mg GT BID [facility] Last Admin: 10/05/16 10:29 Dose: 400 mg Miscellaneous (Duragesic Patch Waste) 1 each TD PRN PRN PRN Reason: PAIN Last Admin: 09/26/16 15:41 Dose: 1 each Morphine Sulfate (Morphine Injection -) 2 mg IVPUSH Q4H PRN PRN Reason: PAIN Last Admin: 10/05/16 10:28 Dose: 2 mg Ofloxacin (Ocuflox 0.3% Eye Drops -) 1 drop OD Q4HWA [facility] Last Admin: 10/05/16 10:30 Dose: 1 drop Potassium Chloride (Potassium Chloride Oral Liquid) 40 meq GT BID [facility] Last Admin: 10/05/16 10:29 Dose: 40 meq Prednisolone Acetate (Pred Forte 1% -) 1 drop OD BID [facility] Last Admin: 10/05/16 10:30 Dose: 1 drp Ranitidine HCl (Zantac Oral Solution -) 150 mg PO BID [facility] Last Admin: 10/05/16 10:29 Dose: 150 mg - Objective Vital Signs: Vital Signs Temperature 101.4 F H 10/05/16 06:00 Pulse Rate 90 10/05/16 06:00 Respiratory Rate 17 10/05/16 10:45 Blood Pressure 106/53 10/05/16 06:00 O2 Sat by Pulse Oximetry (%) 100 10/03/16 12:19 Constitutional: Yes: No Distress Cardiovascular: Yes: Regular Rate and Rhythm Respiratory: Yes: Mechanically Ventilated, Other Gastrointestinal: Yes: Normal Bowel Sounds, Soft, Other (peg in place) Musculoskeletal: Yes: Other Extremities: Yes: Other Neurological: Yes: Alert, Other Psychiatric: Yes: Alert, Other Labs: CBC, BMP 10/02/16 06:20 10/02/16 06:20 INR, PTT INR 1.14 (0.82-1.09) 09/07/16 22:45 Fibrinogen > 700.0 mg/dL (238-498) H 07/31/16 05:40 Assessment/Plan Problem List - Problems (1) Abdominal pain Code(s): R10.9 - UNSPECIFIED ABDOMINAL PAIN Qualifiers: Qualified Code(s): R10.33 - Periumbilical pain (2) Perforated abdominal viscus Code(s): [id number] - (3) Perforated viscus Code(s): R19.8 - OTH SYMPTOMS AND SIGNS INVOLVING THE DGSTV SYS AND ABDOMEN (4) Hypertension Code(s): I10 - ESSENTIAL (PRIMARY) HYPERTENSION Qualifiers: Qualified Code(s): I10 - Essential (primary) hypertension lactic acidosis fevers generalized swelling gangrene of the tip of the fingers noted pseudomonas pneumonia plan continue current mgmt nutrition continue abx continue suctioning await for cdiff results
[2016-10-05] MEDS: CLOTRIMAZOLE/BETAMET DIPROP 15 GM TUBE TP SCH ×2 (11:46→22:28)
[2016-10-05] MEDS: COLLAGENASE CLOSTRIDIUM HIST. 30 GRAMS TUBE TP SCH (11:46)
[2016-10-05] MEDS: VANCOMYCIN 1,250 MG in DEXTROSE 5%-WATER - 250 ML IVPB SCH (15:30)
[2016-10-05] MEDS: INSULIN DETEMIR 100 UNITS/ML MDV SQ SCH (22:25)
[2016-10-06] MEDS ORDERED: PT OWN MED DRAWER 7, Y5N ONE ×5 (02:10→18:46)
[2016-10-06] MEDS: CEFTAZIDIME PENTAHYDRATE 1 GM in DEXTROSE 5%-WATER - 50 ML IVPB SCH ×3 (02:11→19:57)
[2016-10-06] MEDS: ACETAMINOPHEN 650 MG/20.3 ML ORAL SOLUTION (CUPS) PO PRN ×2 (02:22→17:27)
[2016-10-06] MEDS: INSULIN SLIDING SCALE (NOVOLOG) 1 VIAL SQ SCH ×4 (07:01→22:05)
[2016-10-06] MEDS: OFLOXACIN 0.3% OPHTHALMIC SOLUTION 5 ML BOTTLE OD SCH ×5 (07:02→22:06)
[2016-10-06] MEDS: morphine CARPU-JECT 4 MG/1 ML DISP.SYRIN IVPUSH PRN (08:47)
--- NOTE | 2016-10-06 08:52 | PN ---
Progress Note, Physician Chief Complaint: No new complaints History of Present Illness: Noticed problems with tracheostomy - Current Medication List Current Medications: Active Medications Acetaminophen (Tylenol Oral Solution -) 650 mg PO Q4H PRN PRN Reason: FEVER OR PAIN Last Admin: 10/06/16 02:22 Dose: 650 mg Clotrimazole (Lotrisone Cream (Small Tube)) 1 applic TP BID [facility] Last Admin: 10/05/16 22:28 Dose: 1 applic Collagenase (Santyl -) 1 applic TP DAILY [facility] Last Admin: 10/05/16 11:46 Dose: 1 applic Dextrose (D50w (Vial) -) 50 gm IVPUSH Q15M PRN PRN Reason: BLOOD SUGAR < 60 Enoxaparin Sodium (Lovenox -) 40 mg SQ BID [facility] Last Admin: 10/05/16 22:29 Dose: 40 mg Furosemide (Lasix -) 20 mg GT DAILY [facility] Last Admin: 10/05/16 10:29 Dose: 20 mg Ceftazidime 1 gm/ Dextrose 50 mls @ 100 mls/hr IVPB Q8H-IV [facility] PRN Reason: Protocol Last Admin: 10/06/16 02:11 Dose: 100 mls/hr Vancomycin HCl 1,250 mg/ (Dextrose) 250 mls @ 166.667 mls/hr IVPB Q24H [facility] PRN Reason: Protocol Last Admin: 10/05/16 15:30 Dose: 166.667 mls/hr Insulin Aspart (Novolog Vial Sliding Scale -) 1 vial SQ ACHS [facility] PRN Reason: Protocol Last Admin: 10/06/16 07:01 Dose: 8 units Insulin Detemir (Levemir Vial) 40 units SQ HS [facility] Last Admin: 10/05/16 22:25 Dose: 40 units Magnesium Oxide (Mag-Ox -) 400 mg GT BID [facility] Last Admin: 10/05/16 22:26 Dose: 400 mg Miscellaneous (Duragesic Patch Waste) 1 each TD PRN PRN PRN Reason: PAIN Last Admin: 09/26/16 15:41 Dose: 1 each Morphine Sulfate (Morphine Injection -) 2 mg IVPUSH Q4H PRN PRN Reason: PAIN Last Admin: 10/05/16 22:48 Dose: 2 mg Ofloxacin (Ocuflox 0.3% Eye Drops -) 1 drop OD Q4HWA [facility] Last Admin: 10/06/16 07:02 Dose: 1 drop Potassium Chloride (Potassium Chloride Oral Liquid) 40 meq GT BID [facility] Last Admin: 10/05/16 22:26 Dose: 40 meq Prednisolone Acetate (Pred Forte 1% -) 1 drop OD BID [facility] Last Admin: 10/05/16 22:27 Dose: 1 drp Ranitidine HCl (Zantac Oral Solution -) 150 mg PO BID [facility] Last Admin: 10/05/16 22:26 Dose: 150 mg - Objective Vital Signs: Vital Signs Temperature 99.9 F H 10/06/16 06:00 Pulse Rate 96 H 10/06/16 06:00 Respiratory Rate 19 10/06/16 06:12 Blood Pressure 130/75 10/06/16 06:00 O2 Sat by Pulse Oximetry (%) 100 10/03/16 12:19 Constitutional: Yes: Calm Eyes: Yes: WNL HENT: Yes: WNL Neck: Yes: WNL Cardiovascular: Yes: Regular Rate and Rhythm Respiratory: Yes: Mechanically Ventilated Gastrointestinal: Yes: Normal Bowel Sounds Genitourinary: Yes: Incontinence Breast(s): Yes: WNL Extremities: Yes: Cyanosis Integumentary: Yes: WNL Neurological: Yes: Oriented Labs: CBC, BMP 10/02/16 06:20 10/02/16 06:20 INR, PTT INR 1.14 (0.82-1.09) 09/07/16 22:45 Fibrinogen > 700.0 mg/dL (238-498) H 07/31/16 05:40 Assessment/Plan Will discuss with Dr Louise regarding changing the Trachostomy
[2016-10-06] MEDS: COLLAGENASE CLOSTRIDIUM HIST. 30 GRAMS TUBE TP SCH (11:20)
[2016-10-06] MEDS: POTASSIUM CHLORIDE ORAL LIQUID 20 MEQ/15 ML GT SCH ×2 (12:01→22:07)
[2016-10-06] MEDS: MAGNESIUM OXIDE 400 MG TABLET (FP) GT SCH ×2 (12:02→22:05)
[2016-10-06] MEDS: FUROSEMIDE 20 MG TABLET (FP) GT SCH (12:02)
[2016-10-06] MEDS: ENOXAPARIN NA (PORCINE) 40 MG/0.4 ML DISP.SYRIN SQ SCH ×2 (12:02→22:05)
[2016-10-06] MEDS: RANITIDINE HCL 150 MG/10 ML UNIT-DOSE CUP PO SCH ×2 (12:03→22:08)
[2016-10-06] MEDS: prednisoLONE ACETATE 1% OPHTH SUSP 5 ML BOTTLE OD SCH ×2 (12:03→22:07)
--- NOTE | 2016-10-06 13:52 | PN ---
Progress Note, Physician History of Present Illness: continues to have fever no specific changes - Current Medication List Current Medications: Active Medications Acetaminophen (Tylenol Oral Solution -) 650 mg PO Q4H PRN PRN Reason: FEVER OR PAIN Last Admin: 10/06/16 02:22 Dose: 650 mg Clotrimazole (Lotrisone Cream (Small Tube)) 1 applic TP BID [facility] Last Admin: 10/05/16 22:28 Dose: 1 applic Collagenase (Santyl -) 1 applic TP DAILY [facility] Last Admin: 10/05/16 11:46 Dose: 1 applic Dextrose (D50w (Vial) -) 50 gm IVPUSH Q15M PRN PRN Reason: BLOOD SUGAR < 60 Enoxaparin Sodium (Lovenox -) 40 mg SQ BID [facility] Last Admin: 10/06/16 12:02 Dose: 40 mg Furosemide (Lasix -) 20 mg GT DAILY [facility] Last Admin: 10/06/16 12:02 Dose: 20 mg Ceftazidime 1 gm/ Dextrose 50 mls @ 100 mls/hr IVPB Q8H-IV [facility] PRN Reason: Protocol Last Admin: 10/06/16 12:02 Dose: 100 mls/hr Vancomycin HCl 1,250 mg/ (Dextrose) 250 mls @ 166.667 mls/hr IVPB Q24H [facility] PRN Reason: Protocol Last Admin: 10/05/16 15:30 Dose: 166.667 mls/hr Insulin Aspart (Novolog Vial Sliding Scale -) 1 vial SQ ACHS [facility] PRN Reason: Protocol Last Admin: 10/06/16 12:03 Dose: 8 units Insulin Detemir (Levemir Vial) 40 units SQ HS [facility] Last Admin: 10/05/16 22:25 Dose: 40 units Magnesium Oxide (Mag-Ox -) 400 mg GT BID [facility] Last Admin: 10/06/16 12:02 Dose: 400 mg Miscellaneous (Duragesic Patch Waste) 1 each TD PRN PRN PRN Reason: PAIN Last Admin: 09/26/16 15:41 Dose: 1 each Morphine Sulfate (Morphine Injection -) 2 mg IVPUSH Q4H PRN PRN Reason: PAIN Last Admin: 10/06/16 08:47 Dose: 2 mg Ofloxacin (Ocuflox 0.3% Eye Drops -) 1 drop OD Q4HWA [facility] Last Admin: 10/06/16 12:04 Dose: 1 drop Potassium Chloride (Potassium Chloride Oral Liquid) 40 meq GT BID [facility] Last Admin: 10/06/16 12:01 Dose: 40 meq Prednisolone Acetate (Pred Forte 1% -) 1 drop OD BID [facility] Last Admin: 10/06/16 12:03 Dose: 1 drp Ranitidine HCl (Zantac Oral Solution -) 150 mg PO BID [facility] Last Admin: 10/06/16 12:03 Dose: 150 mg - Objective Vital Signs: Vital Signs Temperature 99.2 F 10/06/16 08:54 Pulse Rate 94 H 10/06/16 08:54 Respiratory Rate 14 10/06/16 10:24 Blood Pressure 125/65 10/06/16 08:54 O2 Sat by Pulse Oximetry (%) 100 10/03/16 12:19 Constitutional: Yes: No Distress Cardiovascular: Yes: Regular Rate and Rhythm, S1, S2 Respiratory: Yes: Poor Air Entry, Other Gastrointestinal: Yes: Normal Bowel Sounds, Soft, Other (peg in place) Musculoskeletal: Yes: Other Extremities: Yes: Other Neurological: Yes: Alert, Other Psychiatric: Yes: Alert, Other Labs: CBC, BMP 10/02/16 06:20 10/02/16 06:20 INR, PTT INR 1.14 (0.82-1.09) 09/07/16 22:45 Fibrinogen > 700.0 mg/dL (238-498) H 07/31/16 05:40 Assessment/Plan Problem List - Problems (1) Abdominal pain Code(s): R10.9 - UNSPECIFIED ABDOMINAL PAIN Qualifiers: Qualified Code(s): R10.33 - Periumbilical pain (2) Perforated abdominal viscus Code(s): PPS3763 - (3) Perforated viscus Code(s): R19.8 - OTH SYMPTOMS AND SIGNS INVOLVING THE DGSTV SYS AND ABDOMEN (4) Hypertension Code(s): I10 - ESSENTIAL (PRIMARY) HYPERTENSION Qualifiers: Qualified Code(s): I10 - Essential (primary) hypertension lactic acidosis fevers generalized swelling gangrene of the tip of the fingers noted pseudomonas pneumonia plan continue current mgmt nutrition continue abx continue suctioning cdiff result negative
--- NOTE | 2016-10-06 13:59 | PN ---
Progress Note (short form) - Note Progress Note: PULMONARY Remains poorly responsive. Intermittent fevers. Last Vital Signs Temp Pulse Resp BP Pulse Ox 99.2 F 94 H 15 125/65 100 10/06/16 08:54 10/06/16 08:54 10/06/16 13:53 10/06/16 08:54 10/03/16 12:19 Gen: vented, poorly responsive Heart: tachycardic, regular Lung: bilateral rhonchi Abd: soft, nontender, +fistula drainage Ext: multiple ulcers, dry gangrene of bilateral feet, fingers CBC, BMP 10/02/16 06:20 10/02/16 06:20 Active Medications Acetaminophen (Tylenol Oral Solution -) 650 mg PO Q4H PRN PRN Reason: FEVER OR PAIN Last Admin: 10/06/16 02:22 Dose: 650 mg Clotrimazole (Lotrisone Cream (Small Tube)) 1 applic TP BID [facility] Last Admin: 10/05/16 22:28 Dose: 1 applic Collagenase (Santyl -) 1 applic TP DAILY [facility] Last Admin: 10/05/16 11:46 Dose: 1 applic Dextrose (D50w (Vial) -) 50 gm IVPUSH Q15M PRN PRN Reason: BLOOD SUGAR < 60 Enoxaparin Sodium (Lovenox -) 40 mg SQ BID [facility] Last Admin: 10/06/16 12:02 Dose: 40 mg Furosemide (Lasix -) 20 mg GT DAILY [facility] Last Admin: 10/06/16 12:02 Dose: 20 mg Ceftazidime 1 gm/ Dextrose 50 mls @ 100 mls/hr IVPB Q8H-IV [facility] PRN Reason: Protocol Last Admin: 10/06/16 12:02 Dose: 100 mls/hr Vancomycin HCl 1,250 mg/ (Dextrose) 250 mls @ 166.667 mls/hr IVPB Q24H [facility] PRN Reason: Protocol Last Admin: 10/05/16 15:30 Dose: 166.667 mls/hr Insulin Aspart (Novolog Vial Sliding Scale -) 1 vial SQ ACHS [facility] PRN Reason: Protocol Last Admin: 10/06/16 12:03 Dose: 8 units Insulin Detemir (Levemir Vial) 40 units SQ HS [facility] Last Admin: 10/05/16 22:25 Dose: 40 units Magnesium Oxide (Mag-Ox -) 400 mg GT BID [facility] Last Admin: 10/06/16 12:02 Dose: 400 mg Miscellaneous (Duragesic Patch Waste) 1 each TD PRN PRN PRN Reason: PAIN Last Admin: 09/26/16 15:41 Dose: 1 each Morphine Sulfate (Morphine Injection -) 2 mg IVPUSH Q4H PRN PRN Reason: PAIN Last Admin: 10/06/16 08:47 Dose: 2 mg Ofloxacin (Ocuflox 0.3% Eye Drops -) 1 drop OD Q4HWA [facility] Last Admin: 10/06/16 12:04 Dose: 1 drop Potassium Chloride (Potassium Chloride Oral Liquid) 40 meq GT BID [facility] Last Admin: 10/06/16 12:01 Dose: 40 meq Prednisolone Acetate (Pred Forte 1% -) 1 drop OD BID [facility] Last Admin: 10/06/16 12:03 Dose: 1 drp Ranitidine HCl (Zantac Oral Solution -) 150 mg PO BID [facility] Last Admin: 10/06/16 12:03 Dose: 150 mg A/P Perforated Duodenal Ulcer Peritonitis s/p ex-lap/omental patch repair 07/16 Enterocutaneous Fistula Acute Respiratory Failure s/p Tracheostomy s/p Septic Shock DM DVT Gangrene s/p PEA Cardiac Arrest - continue anticoagulation - morphine for comfort - enteral feeds as tolerated - spontaneous breathing trials as tolerated - DVT/GI prophylaxis - prognosis is poor, continue discussions regarding advanced directives and goals of care - recommend palliative due to failure to wean, anticipated amputations, poor quality of life
[2016-10-06] MEDS: CLOTRIMAZOLE/BETAMET DIPROP 15 GM TUBE TP SCH ×2 (14:56→22:04)
[2016-10-06] MEDS: VANCOMYCIN 1,250 MG in DEXTROSE 5%-WATER - 250 ML IVPB SCH (17:24)
[2016-10-06] MEDS: INSULIN DETEMIR 100 UNITS/ML MDV SQ SCH (22:02)
[2016-10-07] MEDS: CEFTAZIDIME PENTAHYDRATE 1 GM in DEXTROSE 5%-WATER - 50 ML IVPB SCH ×3 (01:40→18:48)
[2016-10-07] MEDS: OFLOXACIN 0.3% OPHTHALMIC SOLUTION 5 ML BOTTLE OD SCH ×5 (06:17→23:04)
[2016-10-07] MEDS: INSULIN SLIDING SCALE (NOVOLOG) 1 VIAL SQ SCH ×4 (06:20→23:08)
[2016-10-07] MEDS ORDERED: PT OWN MED DRAWER 7, Y5N ONE (06:52)
--- NOTE | 2016-10-07 08:24 | PN ---
Progress Note, Physician Chief Complaint: Has minimal response to verbal commands History of Present Illness: S/P duodenal perforation repair Septic shock ,respiratory failure on respirator - Current Medication List Current Medications: Active Medications Acetaminophen (Tylenol Oral Solution -) 650 mg PO Q4H PRN PRN Reason: FEVER OR PAIN Last Admin: 10/06/16 17:27 Dose: 650 mg Clotrimazole (Lotrisone Cream (Small Tube)) 1 applic TP BID [facility] Last Admin: 10/06/16 22:04 Dose: 1 applic Collagenase (Santyl -) 1 applic TP DAILY [facility] Last Admin: 10/06/16 11:20 Dose: 1 applic Dextrose (D50w (Vial) -) 50 gm IVPUSH Q15M PRN PRN Reason: BLOOD SUGAR < 60 Enoxaparin Sodium (Lovenox -) 40 mg SQ BID [facility] Last Admin: 10/06/16 22:05 Dose: 40 mg Furosemide (Lasix -) 20 mg GT DAILY [facility] Last Admin: 10/06/16 12:02 Dose: 20 mg Ceftazidime 1 gm/ Dextrose 50 mls @ 100 mls/hr IVPB Q8H-IV [facility] PRN Reason: Protocol Last Admin: 10/07/16 01:40 Dose: 100 mls/hr Vancomycin HCl 1,250 mg/ (Dextrose) 250 mls @ 166.667 mls/hr IVPB Q24H [facility] PRN Reason: Protocol Last Admin: 10/06/16 17:24 Dose: 166.667 mls/hr Insulin Aspart (Novolog Vial Sliding Scale -) 1 vial SQ ACHS [facility] PRN Reason: Protocol Last Admin: 10/07/16 06:20 Dose: 8 units Insulin Detemir (Levemir Vial) 40 units SQ HS [facility] Last Admin: 10/06/16 22:02 Dose: 40 units Magnesium Oxide (Mag-Ox -) 400 mg GT BID [facility] Last Admin: 10/06/16 22:05 Dose: 400 mg Miscellaneous (Duragesic Patch Waste) 1 each TD PRN PRN PRN Reason: PAIN Last Admin: 09/26/16 15:41 Dose: 1 each Morphine Sulfate (Morphine Injection -) 2 mg IVPUSH Q4H PRN PRN Reason: PAIN Last Admin: 10/06/16 08:47 Dose: 2 mg Ofloxacin (Ocuflox 0.3% Eye Drops -) 1 drop OD Q4HWA [facility] Last Admin: 10/07/16 06:17 Dose: 1 drop Potassium Chloride (Potassium Chloride Oral Liquid) 40 meq GT BID [facility] Last Admin: 10/06/16 22:07 Dose: 40 meq Prednisolone Acetate (Pred Forte 1% -) 1 drop OD BID [facility] Last Admin: 10/06/16 22:07 Dose: 1 drp Ranitidine HCl (Zantac Oral Solution -) 150 mg PO BID [facility] Last Admin: 10/06/16 22:08 Dose: 150 mg - Objective Vital Signs: Vital Signs Temperature 99.9 F H 10/07/16 06:00 Pulse Rate 88 10/07/16 06:00 Respiratory Rate 19 10/07/16 06:38 Blood Pressure 108/54 10/07/16 06:00 O2 Sat by Pulse Oximetry (%) 100 10/03/16 12:19 Constitutional: Yes: No Distress Eyes: Yes: WNL HENT: Yes: WNL Neck: Yes: WNL Cardiovascular: Yes: WNL Respiratory: Yes: Mechanically Ventilated ...Rectal Exam: Yes: Deferred Genitourinary: Yes: Incontinence Musculoskeletal: Yes: Muscle Weakness Neurological: Yes: Oriented Labs: CBC, BMP 10/02/16 06:20 10/02/16 06:20 INR, PTT INR 1.14 (0.82-1.09) 09/07/16 22:45 Fibrinogen > 700.0 mg/dL (238-498) H 07/31/16 05:40 Assessment/Plan Continue same trt
[2016-10-07] MEDS: morphine CARPU-JECT 4 MG/1 ML DISP.SYRIN IVPUSH PRN ×2 (09:42→23:04)
[2016-10-07] MEDS: POTASSIUM CHLORIDE ORAL LIQUID 20 MEQ/15 ML GT SCH ×2 (09:46→23:03)
[2016-10-07] MEDS: FUROSEMIDE 20 MG TABLET (FP) GT SCH (09:46)
[2016-10-07] MEDS: MAGNESIUM OXIDE 400 MG TABLET (FP) GT SCH ×2 (09:46→23:03)
[2016-10-07] MEDS: RANITIDINE HCL 150 MG/10 ML UNIT-DOSE CUP PO SCH ×2 (09:46→23:03)
[2016-10-07] MEDS: ENOXAPARIN NA (PORCINE) 40 MG/0.4 ML DISP.SYRIN SQ SCH ×2 (09:47→23:03)
[2016-10-07] MEDS: prednisoLONE ACETATE 1% OPHTH SUSP 5 ML BOTTLE OD SCH ×2 (09:48→23:04)
[2016-10-07] MEDS: CLOTRIMAZOLE/BETAMET DIPROP 15 GM TUBE TP SCH ×2 (09:48→23:05)
[2016-10-07] MEDS ORDERED: INSULIN (NOVOLOG) ASPART 100 UNITS/ML 10ML VIAL ONE ×2 (11:22→16:17)
--- NOTE | 2016-10-07 11:23 | PN ---
Progress Note (short form) - Note Progress Note: PULMONARY Vented on volume assist control. Remains poorly responsive. low grade temps yesterday Last Vital Signs Temp Pulse Resp BP Pulse Ox 99.5 F 82 18 117/60 100 10/07/16 10:00 10/07/16 10:00 10/07/16 10:00 10/07/16 10:00 10/03/16 12:19 Gen: vented, poorly responsive Heart: tachycardic, regular Lung: bilateral rhonchi Abd: soft, nontender, +fistula drainage Ext: multiple ulcers, dry gangrene of bilateral feet, fingers CBC, BMP 10/02/16 06:20 10/02/16 06:20 Active Medications Acetaminophen (Tylenol Oral Solution -) 650 mg PO Q4H PRN PRN Reason: FEVER OR PAIN Last Admin: 10/06/16 17:27 Dose: 650 mg Clotrimazole (Lotrisone Cream (Small Tube)) 1 applic TP BID [facility] Last Admin: 10/07/16 09:48 Dose: 1 applic Collagenase (Santyl -) 1 applic TP DAILY [facility] Last Admin: 10/06/16 11:20 Dose: 1 applic Dextrose (D50w (Vial) -) 50 gm IVPUSH Q15M PRN PRN Reason: BLOOD SUGAR < 60 Enoxaparin Sodium (Lovenox -) 40 mg SQ BID [facility] Furosemide (Lasix -) 20 mg GT DAILY [facility] Last Admin: 10/07/16 09:46 Dose: 20 mg Ceftazidime 1 gm/ Dextrose 50 mls @ 100 mls/hr IVPB Q8H-IV [facility] PRN Reason: Protocol Last Admin: 10/07/16 09:47 Dose: 100 mls/hr Vancomycin HCl 1,250 mg/ (Dextrose) 250 mls @ 166.667 mls/hr IVPB Q24H [facility] PRN Reason: Protocol Last Admin: 10/06/16 17:24 Dose: 166.667 mls/hr Insulin Aspart (Novolog Vial Sliding Scale -) 1 vial SQ ACHS [facility] PRN Reason: Protocol Last Admin: 10/07/16 06:20 Dose: 8 units Insulin Detemir (Levemir Vial) 40 units SQ HS [facility] Last Admin: 10/06/16 22:02 Dose: 40 units Magnesium Oxide (Mag-Ox -) 400 mg GT BID [facility] Last Admin: 10/07/16 09:46 Dose: 400 mg Miscellaneous (Duragesic Patch Waste) 1 each TD PRN PRN PRN Reason: PAIN Last Admin: 09/26/16 15:41 Dose: 1 each Morphine Sulfate (Morphine Injection -) 2 mg IVPUSH Q4H PRN PRN Reason: PAIN Ofloxacin (Ocuflox 0.3% Eye Drops -) 1 drop OD Q4HWA [facility] Last Admin: 10/07/16 09:48 Dose: 1 drop Potassium Chloride (Potassium Chloride Oral Liquid) 40 meq GT BID [facility] Last Admin: 10/07/16 09:46 Dose: 40 meq Prednisolone Acetate (Pred Forte 1% -) 1 drop OD BID [facility] Last Admin: 10/07/16 09:48 Dose: 1 drp Ranitidine HCl (Zantac Oral Solution -) 150 mg PO BID [facility] Last Admin: 10/07/16 09:46 Dose: 150 mg A/P Perforated Duodenal Ulcer Peritonitis s/p ex-lap/omental patch repair 07/16 Enterocutaneous Fistula Acute Respiratory Failure s/p Tracheostomy s/p Septic Shock DM DVT Gangrene s/p PEA Cardiac Arrest - continue anticoagulation - morphine for comfort - enteral feeds as tolerated - spontaneous breathing trials as tolerated but poor candidate for weaning - DVT/GI prophylaxis - prognosis is poor, continue discussions regarding advanced directives and goals of care - recommend palliative due to failure to wean, anticipated amputations, poor quality of life
[2016-10-07] MEDS: COLLAGENASE CLOSTRIDIUM HIST. 30 GRAMS TUBE TP SCH (12:54)
--- NOTE | 2016-10-07 14:01 | PN ---
Progress Note, Physician History of Present Illness: patient continues to be the same poorly responsive still with low grade fever - Current Medication List Current Medications: Active Medications Acetaminophen (Tylenol Oral Solution -) 650 mg PO Q4H PRN PRN Reason: FEVER OR PAIN Last Admin: 10/06/16 17:27 Dose: 650 mg Clotrimazole (Lotrisone Cream (Small Tube)) 1 applic TP BID [facility] Last Admin: 10/07/16 09:48 Dose: 1 applic Collagenase (Santyl -) 1 applic TP DAILY [facility] Last Admin: 10/07/16 12:54 Dose: 1 applic Dextrose (D50w (Vial) -) 50 gm IVPUSH Q15M PRN PRN Reason: BLOOD SUGAR < 60 Enoxaparin Sodium (Lovenox -) 40 mg SQ BID [facility] Furosemide (Lasix -) 20 mg GT DAILY [facility] Last Admin: 10/07/16 09:46 Dose: 20 mg Ceftazidime 1 gm/ Dextrose 50 mls @ 100 mls/hr IVPB Q8H-IV [facility] PRN Reason: Protocol Last Admin: 10/07/16 09:47 Dose: 100 mls/hr Vancomycin HCl 1,250 mg/ (Dextrose) 250 mls @ 166.667 mls/hr IVPB Q24H [facility] PRN Reason: Protocol Last Admin: 10/06/16 17:24 Dose: 166.667 mls/hr Insulin Aspart (Novolog Vial Sliding Scale -) 1 vial SQ ACHS [facility] PRN Reason: Protocol Last Admin: 10/07/16 11:27 Dose: 8 units Insulin Detemir (Levemir Vial) 40 units SQ HS [facility] Last Admin: 10/06/16 22:02 Dose: 40 units Magnesium Oxide (Mag-Ox -) 400 mg GT BID [facility] Last Admin: 10/07/16 09:46 Dose: 400 mg Miscellaneous (Duragesic Patch Waste) 1 each TD PRN PRN PRN Reason: PAIN Last Admin: 09/26/16 15:41 Dose: 1 each Morphine Sulfate (Morphine Injection -) 2 mg IVPUSH Q4H PRN PRN Reason: PAIN Ofloxacin (Ocuflox 0.3% Eye Drops -) 1 drop OD Q4HWA [facility] Last Admin: 10/07/16 09:48 Dose: 1 drop Potassium Chloride (Potassium Chloride Oral Liquid) 40 meq GT BID [facility] Last Admin: 10/07/16 09:46 Dose: 40 meq Prednisolone Acetate (Pred Forte 1% -) 1 drop OD BID [facility] Last Admin: 10/07/16 09:48 Dose: 1 drp Ranitidine HCl (Zantac Oral Solution -) 150 mg PO BID [facility] Last Admin: 10/07/16 09:46 Dose: 150 mg - Objective Vital Signs: Vital Signs Temperature 99.5 F 10/07/16 10:00 Pulse Rate 82 10/07/16 10:00 Respiratory Rate 34 H 10/07/16 10:40 Blood Pressure 117/60 10/07/16 10:00 O2 Sat by Pulse Oximetry (%) 100 10/03/16 12:19 Constitutional: Yes: Calm, Other Cardiovascular: Yes: Regular Rate and Rhythm Respiratory: Yes: Mechanically Ventilated, Other (trach) Gastrointestinal: Yes: Normal Bowel Sounds, Soft, Other (peg in place) Musculoskeletal: Yes: Other Extremities: Yes: Other Wound/Incision: Yes: Other Neurological: Yes: Alert, Other Psychiatric: Yes: Other Labs: CBC, BMP 10/02/16 06:20 10/02/16 06:20 INR, PTT INR 1.14 (0.82-1.09) 09/07/16 22:45 Fibrinogen > 700.0 mg/dL (238-498) H 07/31/16 05:40 Assessment/Plan Problem List - Problems (1) Abdominal pain Code(s): R10.9 - UNSPECIFIED ABDOMINAL PAIN Qualifiers: Qualified Code(s): R10.33 - Periumbilical pain (2) Perforated abdominal viscus Code(s): [id number] - (3) Perforated viscus Code(s): R19.8 - OTH SYMPTOMS AND SIGNS INVOLVING THE DGSTV SYS AND ABDOMEN (4) Hypertension Code(s): I10 - ESSENTIAL (PRIMARY) HYPERTENSION Qualifiers: Qualified Code(s): I10 - Essential (primary) hypertension lactic acidosis fevers generalized swelling gangrene of the tip of the fingers noted pseudomonas pneumonia plan continue current mgmt nutrition continue abx continue suctioning all supportive measures
[2016-10-07] MEDS: VANCOMYCIN 1,250 MG in DEXTROSE 5%-WATER - 250 ML IVPB SCH (15:21)
[2016-10-07] MEDS: INSULIN DETEMIR 100 UNITS/ML MDV SQ SCH (23:05)
[2016-10-07] MEDS: ACETAMINOPHEN 650 MG/20.3 ML ORAL SOLUTION (CUPS) PO PRN (23:11)
[2016-10-08] MEDS: CEFTAZIDIME PENTAHYDRATE 1 GM in DEXTROSE 5%-WATER - 50 ML IVPB SCH ×3 (02:23→17:51)
[2016-10-08] MEDS: OFLOXACIN 0.3% OPHTHALMIC SOLUTION 5 ML BOTTLE OD SCH ×5 (06:01→23:23)
[2016-10-08] MEDS: INSULIN SLIDING SCALE (NOVOLOG) 1 VIAL SQ SCH ×4 (06:02→23:22)
--- NOTE | 2016-10-08 08:45 | PN ---
Progress Note, Physician Chief Complaint: Has minimal response to verbal commands History of Present Illness: Low grade fever persists - Current Medication List Current Medications: Active Medications Acetaminophen (Tylenol Oral Solution -) 650 mg PO Q4H PRN PRN Reason: FEVER OR PAIN Last Admin: 10/07/16 23:11 Dose: 650 mg Clotrimazole (Lotrisone Cream (Small Tube)) 1 applic TP BID [facility] Last Admin: 10/07/16 23:05 Dose: 1 applic Collagenase (Santyl -) 1 applic TP DAILY [facility] Last Admin: 10/07/16 12:54 Dose: 1 applic Dextrose (D50w (Vial) -) 50 gm IVPUSH Q15M PRN PRN Reason: BLOOD SUGAR < 60 Enoxaparin Sodium (Lovenox -) 40 mg SQ BID [facility] Last Admin: 10/07/16 23:03 Dose: 40 mg Furosemide (Lasix -) 20 mg GT DAILY [facility] Last Admin: 10/07/16 09:46 Dose: 20 mg Ceftazidime 1 gm/ Dextrose 50 mls @ 100 mls/hr IVPB Q8H-IV [facility] PRN Reason: Protocol Last Admin: 10/08/16 02:23 Dose: 100 mls/hr Vancomycin HCl 1,250 mg/ (Dextrose) 250 mls @ 166.667 mls/hr IVPB Q24H [facility] PRN Reason: Protocol Last Admin: 10/07/16 15:21 Dose: 166.667 mls/hr Insulin Aspart (Novolog Vial Sliding Scale -) 1 vial SQ ACHS [facility] PRN Reason: Protocol Last Admin: 10/08/16 06:02 Dose: 8 units Insulin Detemir (Levemir Vial) 40 units SQ HS [facility] Last Admin: 10/07/16 23:05 Dose: 40 units Magnesium Oxide (Mag-Ox -) 400 mg GT BID [facility] Last Admin: 10/07/16 23:03 Dose: 400 mg Miscellaneous (Duragesic Patch Waste) 1 each TD PRN PRN PRN Reason: PAIN Last Admin: 09/26/16 15:41 Dose: 1 each Morphine Sulfate (Morphine Injection -) 2 mg IVPUSH Q4H PRN PRN Reason: PAIN Last Admin: 10/07/16 23:04 Dose: 2 mg Ofloxacin (Ocuflox 0.3% Eye Drops -) 1 drop OD Q4HWA [facility] Last Admin: 10/08/16 06:01 Dose: 1 drop Potassium Chloride (Potassium Chloride Oral Liquid) 40 meq GT BID [facility] Last Admin: 10/07/16 23:03 Dose: 40 meq Prednisolone Acetate (Pred Forte 1% -) 1 drop OD BID [facility] Last Admin: 10/07/16 23:04 Dose: 1 drp Ranitidine HCl (Zantac Oral Solution -) 150 mg PO BID [facility] Last Admin: 10/07/16 23:03 Dose: 150 mg - Objective Vital Signs: Vital Signs Temperature 99.8 F H 10/08/16 06:00 Pulse Rate 81 10/08/16 06:00 Respiratory Rate 14 10/08/16 06:53 Blood Pressure 125/54 10/08/16 06:00 O2 Sat by Pulse Oximetry (%) 100 10/03/16 12:19 Constitutional: Yes: No Distress Eyes: Yes: WNL HENT: Yes: WNL Cardiovascular: Yes: Regular Rate and Rhythm Respiratory: Yes: Mechanically Ventilated ...Rectal Exam: Yes: Other (Has rectal tube) Genitourinary: Yes: Incontinence Neurological: Yes: Alert Labs: CBC, BMP 10/02/16 06:20 10/02/16 06:20 INR, PTT INR 1.14 (0.82-1.09) 09/07/16 22:45 Fibrinogen > 700.0 mg/dL (238-498) H 07/31/16 05:40 Assessment/Plan Will increase Lantus dose Respiratory settings changed to IMV
[2016-10-08] MEDS: morphine CARPU-JECT 4 MG/1 ML DISP.SYRIN IVPUSH PRN ×3 (10:44→23:23)
[2016-10-08] MEDS ORDERED: PT OWN MED DRAWER 7, Y5N ONE ×3 (11:39→18:19)
[2016-10-08] MEDS: POTASSIUM CHLORIDE ORAL LIQUID 20 MEQ/15 ML GT SCH ×2 (11:41→23:22)
[2016-10-08] MEDS: RANITIDINE HCL 150 MG/10 ML UNIT-DOSE CUP PO SCH ×2 (11:41→23:22)
[2016-10-08] MEDS: FUROSEMIDE 20 MG TABLET (FP) GT SCH (11:42)
[2016-10-08] MEDS: CLOTRIMAZOLE/BETAMET DIPROP 15 GM TUBE TP SCH ×2 (11:42→23:23)
[2016-10-08] MEDS: MAGNESIUM OXIDE 400 MG TABLET (FP) GT SCH ×2 (11:42→23:22)
[2016-10-08] MEDS: ENOXAPARIN NA (PORCINE) 40 MG/0.4 ML DISP.SYRIN SQ SCH ×2 (11:42→23:22)
[2016-10-08] MEDS: prednisoLONE ACETATE 1% OPHTH SUSP 5 ML BOTTLE OD SCH ×2 (11:43→23:23)
--- NOTE | 2016-10-08 13:16 | PN ---
Progress Note, Physician History of Present Illness: PULMONARY LETHARGIC ON VENT SUPPORT,AC MODE - Current Medication List Current Medications: Active Medications Acetaminophen (Tylenol Oral Solution -) 650 mg PO Q4H PRN PRN Reason: FEVER OR PAIN Last Admin: 10/07/16 23:11 Dose: 650 mg Clotrimazole (Lotrisone Cream (Small Tube)) 1 applic TP BID [facility] Last Admin: 10/08/16 11:42 Dose: 1 applic Collagenase (Santyl -) 1 applic TP DAILY [facility] Last Admin: 10/07/16 12:54 Dose: 1 applic Dextrose (D50w (Vial) -) 50 gm IVPUSH Q15M PRN PRN Reason: BLOOD SUGAR < 60 Enoxaparin Sodium (Lovenox -) 40 mg SQ BID [facility] Last Admin: 10/08/16 11:42 Dose: 40 mg Furosemide (Lasix -) 20 mg GT DAILY [facility] Last Admin: 10/08/16 11:42 Dose: 20 mg Ceftazidime 1 gm/ Dextrose 50 mls @ 100 mls/hr IVPB Q8H-IV [facility] PRN Reason: Protocol Last Admin: 10/08/16 11:41 Dose: 100 mls/hr Vancomycin HCl 1,250 mg/ (Dextrose) 250 mls @ 166.667 mls/hr IVPB Q24H [facility] PRN Reason: Protocol Last Admin: 10/07/16 15:21 Dose: 166.667 mls/hr Insulin Aspart (Novolog Vial Sliding Scale -) 1 vial SQ ACHS [facility] PRN Reason: Protocol Last Admin: 10/08/16 12:33 Dose: 4 units Insulin Detemir (Levemir Vial) 40 units SQ HS [facility] Last Admin: 10/07/16 23:05 Dose: 40 units Magnesium Oxide (Mag-Ox -) 400 mg GT BID [facility] Last Admin: 10/08/16 11:42 Dose: 400 mg Miscellaneous (Duragesic Patch Waste) 1 each TD PRN PRN PRN Reason: PAIN Last Admin: 09/26/16 15:41 Dose: 1 each Morphine Sulfate (Morphine Injection -) 2 mg IVPUSH Q4H PRN PRN Reason: PAIN Last Admin: 10/08/16 10:44 Dose: 2 mg Ofloxacin (Ocuflox 0.3% Eye Drops -) 1 drop OD Q4HWA [facility] Last Admin: 10/08/16 11:43 Dose: 1 drop Potassium Chloride (Potassium Chloride Oral Liquid) 40 meq GT BID [facility] Last Admin: 10/08/16 11:41 Dose: 40 meq Prednisolone Acetate (Pred Forte 1% -) 1 drop OD BID [facility] Last Admin: 10/08/16 11:43 Dose: 1 drp Ranitidine HCl (Zantac Oral Solution -) 150 mg PO BID [facility] Last Admin: 10/08/16 11:41 Dose: 150 mg - Objective Vital Signs: Vital Signs Temperature 97 F L 10/08/16 12:00 Pulse Rate 90 10/08/16 10:43 Respiratory Rate 15 10/08/16 10:43 Blood Pressure 138/68 10/08/16 10:43 O2 Sat by Pulse Oximetry (%) 100 10/03/16 12:19 Constitutional: Yes: Thin, Other (LETHARGIC) Eyes: Yes: WNL HENT: Yes: WNL Neck: Yes: Supple (TRACH) Cardiovascular: Yes: Regular Rate and Rhythm, S1, S2 Respiratory: Yes: Rhonchi (FEW SCATTERED RHONCHI) Gastrointestinal: Yes: Normal Bowel Sounds, Soft Extremities: Yes: Other (BILATERAL GANGRENE FEET AND HANDS) Edema: No Labs: CBC, BMP 10/02/16 06:20 10/02/16 06:20 INR, PTT INR 1.14 (0.82-1.09) 09/07/16 22:45 Fibrinogen > 700.0 mg/dL (238-498) H 07/31/16 05:40 Problem List - Problems (1) ZAHIRA (acute kidney injury) Code(s): N17.9 - ACUTE KIDNEY FAILURE, UNSPECIFIED (2) Acute metabolic encephalopathy Code(s): G93.41 - METABOLIC ENCEPHALOPATHY (3) Ischemia of extremity Code(s): I99.8 - OTHER DISORDER OF CIRCULATORY SYSTEM (4) Metabolic acidemia Code(s): E87.2 - ACIDOSIS (5) Perforated abdominal viscus Code(s): [id number] - (6) Sepsis Code(s): A41.9 - SEPSIS, UNSPECIFIED ORGANISM (7) Acute respiratory failure Code(s): J96.00 - ACUTE RESPIRATORY FAILURE, UNSP W HYPOXIA OR HYPERCAPNIA Assessment/Plan ASSESSMENT AND PLAN: Perforated Duodenal Ulcer Peritonitis s/p ex-lap/omental patch repair 07/16 Enterocutaneous Fistula Acute Respiratory Failure s/p Tracheostomy s/p Septic Shock DM DVT Gangrene s/p PEA Cardiac Arrest - Fio2 to keep Spo2 >90% - anticoagulation - morphine for comfort - enteral feeds as tolerated - DVT/GI prophylaxis - antibiotics - recommend palliative due to failure to wean, anticipated amputations, poor quality of life DR OSEI
--- NOTE | 2016-10-08 14:41 | PN ---
Progress Note, Physician History of Present Illness: patient continues to be stable no new changes fever curve becoming better - Current Medication List Current Medications: Active Medications Acetaminophen (Tylenol Oral Solution -) 650 mg PO Q4H PRN PRN Reason: FEVER OR PAIN Last Admin: 10/07/16 23:11 Dose: 650 mg Clotrimazole (Lotrisone Cream (Small Tube)) 1 applic TP BID [facility] Last Admin: 10/08/16 11:42 Dose: 1 applic Collagenase (Santyl -) 1 applic TP DAILY [facility] Last Admin: 10/07/16 12:54 Dose: 1 applic Dextrose (D50w (Vial) -) 50 gm IVPUSH Q15M PRN PRN Reason: BLOOD SUGAR < 60 Enoxaparin Sodium (Lovenox -) 40 mg SQ BID [facility] Last Admin: 10/08/16 11:42 Dose: 40 mg Furosemide (Lasix -) 20 mg GT DAILY [facility] Last Admin: 10/08/16 11:42 Dose: 20 mg Ceftazidime 1 gm/ Dextrose 50 mls @ 100 mls/hr IVPB Q8H-IV [facility] PRN Reason: Protocol Last Admin: 10/08/16 11:41 Dose: 100 mls/hr Vancomycin HCl 1,250 mg/ (Dextrose) 250 mls @ 166.667 mls/hr IVPB Q24H [facility] PRN Reason: Protocol Last Admin: 10/07/16 15:21 Dose: 166.667 mls/hr Insulin Aspart (Novolog Vial Sliding Scale -) 1 vial SQ ACHS [facility] PRN Reason: Protocol Last Admin: 10/08/16 12:33 Dose: 4 units Insulin Detemir (Levemir Vial) 40 units SQ HS [facility] Last Admin: 10/07/16 23:05 Dose: 40 units Magnesium Oxide (Mag-Ox -) 400 mg GT BID [facility] Last Admin: 10/08/16 11:42 Dose: 400 mg Miscellaneous (Duragesic Patch Waste) 1 each TD PRN PRN PRN Reason: PAIN Last Admin: 09/26/16 15:41 Dose: 1 each Morphine Sulfate (Morphine Injection -) 2 mg IVPUSH Q4H PRN PRN Reason: PAIN Last Admin: 10/08/16 10:44 Dose: 2 mg Ofloxacin (Ocuflox 0.3% Eye Drops -) 1 drop OD Q4HWA [facility] Last Admin: 10/08/16 14:31 Dose: 1 drop Potassium Chloride (Potassium Chloride Oral Liquid) 40 meq GT BID [facility] Last Admin: 10/08/16 11:41 Dose: 40 meq Prednisolone Acetate (Pred Forte 1% -) 1 drop OD BID [facility] Last Admin: 10/08/16 11:43 Dose: 1 drp Ranitidine HCl (Zantac Oral Solution -) 150 mg PO BID [facility] Last Admin: 10/08/16 11:41 Dose: 150 mg - Objective Vital Signs: Vital Signs Temperature 97 F L 10/08/16 12:00 Pulse Rate 90 10/08/16 10:43 Respiratory Rate 18 10/08/16 13:57 Blood Pressure 138/68 10/08/16 10:43 O2 Sat by Pulse Oximetry (%) 100 10/03/16 12:19 Constitutional: Yes: No Distress, Calm Eyes: Yes: Conjunctiva Clear HENT: Yes: Atraumatic Cardiovascular: Yes: Regular Rate and Rhythm Musculoskeletal: Yes: Other Extremities: Yes: Other Neurological: Yes: Alert Labs: CBC, BMP 10/02/16 06:20 10/02/16 06:20 INR, PTT INR 1.14 (0.82-1.09) 09/07/16 22:45 Fibrinogen > 700.0 mg/dL (238-498) H 07/31/16 05:40 Assessment/Plan Problem List - Problems (1) Abdominal pain Code(s): R10.9 - UNSPECIFIED ABDOMINAL PAIN Qualifiers: Qualified Code(s): R10.33 - Periumbilical pain (2) Perforated abdominal viscus Code(s): [id number] - (3) Perforated viscus Code(s): R19.8 - OTH SYMPTOMS AND SIGNS INVOLVING THE DGSTV SYS AND ABDOMEN (4) Hypertension Code(s): I10 - ESSENTIAL (PRIMARY) HYPERTENSION Qualifiers: Qualified Code(s): I10 - Essential (primary) hypertension lactic acidosis fevers generalized swelling gangrene of the tip of the fingers noted pseudomonas pneumonia plan continue current mgmt nutrition continue abx continue suctioning all supportive measures
[2016-10-08] MEDS: VANCOMYCIN 1,250 MG in DEXTROSE 5%-WATER - 250 ML IVPB SCH (17:51)
[2016-10-08] MEDS: COLLAGENASE CLOSTRIDIUM HIST. 30 GRAMS TUBE TP SCH (18:32)
[2016-10-08] MEDS: INSULIN DETEMIR 100 UNITS/ML MDV SQ SCH (23:23)
[2016-10-09] MEDS: CEFTAZIDIME PENTAHYDRATE 1 GM in DEXTROSE 5%-WATER - 50 ML IVPB SCH ×4 (02:17→20:26)
[2016-10-09] MEDS: OFLOXACIN 0.3% OPHTHALMIC SOLUTION 5 ML BOTTLE OD SCH ×5 (06:46→21:52)
[2016-10-09] MEDS: INSULIN SLIDING SCALE (NOVOLOG) 1 VIAL SQ SCH ×4 (06:52→21:51)
--- NOTE | 2016-10-09 09:33 | PN ---
Progress Note, Physician Chief Complaint: No new complaints - Current Medication List Current Medications: Active Medications Acetaminophen (Tylenol Oral Solution -) 650 mg PO Q4H PRN PRN Reason: FEVER OR PAIN Last Admin: 10/07/16 23:11 Dose: 650 mg Clotrimazole (Lotrisone Cream (Small Tube)) 1 applic TP BID [facility] Last Admin: 10/08/16 23:23 Dose: 1 applic Collagenase (Santyl -) 1 applic TP DAILY [facility] Last Admin: 10/08/16 18:32 Dose: 1 applic Dextrose (D50w (Vial) -) 50 gm IVPUSH Q15M PRN PRN Reason: BLOOD SUGAR < 60 Enoxaparin Sodium (Lovenox -) 40 mg SQ BID [facility] Last Admin: 10/08/16 23:22 Dose: 40 mg Furosemide (Lasix -) 20 mg GT DAILY [facility] Last Admin: 10/08/16 11:42 Dose: 20 mg Ceftazidime 1 gm/ Dextrose 50 mls @ 100 mls/hr IVPB Q8H-IV [facility] PRN Reason: Protocol Last Admin: 10/09/16 02:17 Dose: 100 mls/hr Vancomycin HCl 1,250 mg/ (Dextrose) 250 mls @ 166.667 mls/hr IVPB Q24H [facility] PRN Reason: Protocol Last Admin: 10/08/16 17:51 Dose: 166.667 mls/hr Insulin Aspart (Novolog Vial Sliding Scale -) 1 vial SQ ACHS [facility] PRN Reason: Protocol Last Admin: 10/09/16 06:52 Dose: 12 units Insulin Detemir (Levemir Vial) 40 units SQ HS [facility] Last Admin: 10/08/16 23:23 Dose: 40 units Magnesium Oxide (Mag-Ox -) 400 mg GT BID [facility] Last Admin: 10/08/16 23:22 Dose: 400 mg Miscellaneous (Duragesic Patch Waste) 1 each TD PRN PRN PRN Reason: PAIN Last Admin: 09/26/16 15:41 Dose: 1 each Morphine Sulfate (Morphine Injection -) 2 mg IVPUSH Q4H PRN PRN Reason: PAIN Last Admin: 10/08/16 23:23 Dose: 2 mg Ofloxacin (Ocuflox 0.3% Eye Drops -) 1 drop OD Q4HWA [facility] Last Admin: 10/09/16 06:46 Dose: 1 drop Potassium Chloride (Potassium Chloride Oral Liquid) 40 meq GT BID [facility] Last Admin: 10/08/16 23:22 Dose: 40 meq Prednisolone Acetate (Pred Forte 1% -) 1 drop OD BID [facility] Last Admin: 10/08/16 23:23 Dose: 1 drp Ranitidine HCl (Zantac Oral Solution -) 150 mg PO BID [facility] Last Admin: 10/08/16 23:22 Dose: 150 mg - Objective Vital Signs: Vital Signs Temperature 98.9 F 10/09/16 06:00 Pulse Rate 101 H 10/09/16 06:00 Respiratory Rate 10/09/16 08:40 Blood Pressure 100/55 10/09/16 06:00 O2 Sat by Pulse Oximetry (%) 100 10/03/16 12:19 Constitutional: Yes: Calm Eyes: Yes: WNL HENT: Yes: WNL Neck: Yes: WNL Cardiovascular: Yes: WNL Respiratory: Yes: Mechanically Ventilated Gastrointestinal: Yes: Normal Bowel Sounds Genitourinary: Yes: Incontinence Edema: No Neurological: Yes: Alert Labs: CBC, BMP 10/02/16 06:20 10/02/16 06:20 INR, PTT INR 1.14 (0.82-1.09) 09/07/16 22:45 Fibrinogen > 700.0 mg/dL (238-498) H 07/31/16 05:40 Assessment/Plan Continue same trt
--- NOTE | 2016-10-09 10:41 | PN ---
Progress Note (short form) - Note Progress Note: PULMONARY Vented on volume assist control. Remains poorly responsive. low grade temp yesterday Last Vital Signs Temp Pulse Resp BP Pulse Ox 98.9 F 101 H 17 100/55 100 10/09/16 06:00 10/09/16 06:00 10/09/16 08:40 10/09/16 06:00 10/03/16 12:19 Gen: vented, poorly responsive Heart: tachycardic, regular Lung: bilateral rhonchi Abd: soft, nontender, +fistula drainage Ext: multiple ulcers, dry gangrene of bilateral feet, fingers CBC, BMP 10/02/16 06:20 10/02/16 06:20 Active Medications Acetaminophen (Tylenol Oral Solution -) 650 mg PO Q4H PRN PRN Reason: FEVER OR PAIN Last Admin: 10/07/16 23:11 Dose: 650 mg Clotrimazole (Lotrisone Cream (Small Tube)) 1 applic TP BID [facility] Last Admin: 10/08/16 23:23 Dose: 1 applic Collagenase (Santyl -) 1 applic TP DAILY [facility] Last Admin: 10/08/16 18:32 Dose: 1 applic Dextrose (D50w (Vial) -) 50 gm IVPUSH Q15M PRN PRN Reason: BLOOD SUGAR < 60 Enoxaparin Sodium (Lovenox -) 40 mg SQ BID [facility] Last Admin: 10/08/16 23:22 Dose: 40 mg Furosemide (Lasix -) 20 mg GT DAILY [facility] Last Admin: 10/08/16 11:42 Dose: 20 mg Ceftazidime 1 gm/ Dextrose 50 mls @ 100 mls/hr IVPB Q8H-IV [facility] PRN Reason: Protocol Last Admin: 10/09/16 02:17 Dose: 100 mls/hr Vancomycin HCl 1,250 mg/ (Dextrose) 250 mls @ 166.667 mls/hr IVPB Q24H [facility] PRN Reason: Protocol Last Admin: 10/08/16 17:51 Dose: 166.667 mls/hr Insulin Aspart (Novolog Vial Sliding Scale -) 1 vial SQ ACHS [facility] PRN Reason: Protocol Last Admin: 10/09/16 06:52 Dose: 12 units Insulin Detemir (Levemir Vial) 40 units SQ HS [facility] Last Admin: 10/08/16 23:23 Dose: 40 units Magnesium Oxide (Mag-Ox -) 400 mg GT BID [facility] Last Admin: 10/08/16 23:22 Dose: 400 mg Miscellaneous (Duragesic Patch Waste) 1 each TD PRN PRN PRN Reason: PAIN Last Admin: 09/26/16 15:41 Dose: 1 each Morphine Sulfate (Morphine Injection -) 2 mg IVPUSH Q4H PRN PRN Reason: PAIN Last Admin: 10/08/16 23:23 Dose: 2 mg Ofloxacin (Ocuflox 0.3% Eye Drops -) 1 drop OD Q4HWA [facility] Last Admin: 10/09/16 06:46 Dose: 1 drop Potassium Chloride (Potassium Chloride Oral Liquid) 40 meq GT BID [facility] Last Admin: 10/08/16 23:22 Dose: 40 meq Prednisolone Acetate (Pred Forte 1% -) 1 drop OD BID [facility] Last Admin: 10/08/16 23:23 Dose: 1 drp Ranitidine HCl (Zantac Oral Solution -) 150 mg PO BID [facility] Last Admin: 10/08/16 23:22 Dose: 150 mg A/P Perforated Duodenal Ulcer Peritonitis s/p ex-lap/omental patch repair 07/16 Enterocutaneous Fistula Acute Respiratory Failure s/p Tracheostomy s/p Septic Shock DM DVT Gangrene s/p PEA Cardiac Arrest - continue anticoagulation - morphine for comfort - enteral feeds as tolerated - spontaneous breathing trials as tolerated but poor candidate for weaning - DVT/GI prophylaxis - prognosis is poor, continue discussions regarding advanced directives and goals of care - recommend palliative due to failure to wean, anticipated amputations, poor quality of life
[2016-10-09] MEDS ORDERED: PT OWN MED DRAWER 7, Y5N ONE ×4 (10:53→20:11)
[2016-10-09] MEDS: POTASSIUM CHLORIDE ORAL LIQUID 20 MEQ/15 ML GT SCH ×2 (11:05→21:52)
[2016-10-09] MEDS: FUROSEMIDE 20 MG TABLET (FP) GT SCH (11:06)
[2016-10-09] MEDS: MAGNESIUM OXIDE 400 MG TABLET (FP) GT SCH ×2 (11:06→21:50)
[2016-10-09] MEDS: ENOXAPARIN NA (PORCINE) 40 MG/0.4 ML DISP.SYRIN SQ SCH ×2 (11:06→21:51)
[2016-10-09] MEDS: prednisoLONE ACETATE 1% OPHTH SUSP 5 ML BOTTLE OD SCH ×2 (11:07→21:53)
[2016-10-09] MEDS ORDERED: INSULIN (NOVOLOG) ASPART 100 UNITS/ML 10ML VIAL ONE ×2 (12:30→14:20)
[2016-10-09] MEDS: RANITIDINE HCL 150 MG/10 ML UNIT-DOSE CUP PO SCH ×2 (12:31→21:53)
[2016-10-09] MEDS: morphine CARPU-JECT 4 MG/1 ML DISP.SYRIN IVPUSH PRN ×2 (13:00→20:21)
--- NOTE | 2016-10-09 13:27 | PN ---
Progress Note, Physician History of Present Illness: patient with not specific changes\ fevers under control vanco trough noted vanco dose adjusted - Current Medication List Current Medications: Active Medications Acetaminophen (Tylenol Oral Solution -) 650 mg PO Q4H PRN PRN Reason: FEVER OR PAIN Last Admin: 10/07/16 23:11 Dose: 650 mg Clotrimazole (Lotrisone Cream (Small Tube)) 1 applic TP BID [facility] Last Admin: 10/08/16 23:23 Dose: 1 applic Collagenase (Santyl -) 1 applic TP DAILY [facility] Last Admin: 10/08/16 18:32 Dose: 1 applic Dextrose (D50w (Vial) -) 50 gm IVPUSH Q15M PRN PRN Reason: BLOOD SUGAR < 60 Enoxaparin Sodium (Lovenox -) 40 mg SQ BID [facility] Last Admin: 10/09/16 11:06 Dose: 40 mg Furosemide (Lasix -) 20 mg GT DAILY [facility] Last Admin: 10/09/16 11:06 Dose: 20 mg Ceftazidime 1 gm/ Dextrose 50 mls @ 100 mls/hr IVPB Q8H-IV [facility] PRN Reason: Protocol Last Admin: 10/09/16 11:06 Dose: 100 mls/hr Insulin Aspart (Novolog Vial Sliding Scale -) 1 vial SQ ACHS [facility] PRN Reason: Protocol Last Admin: 10/09/16 12:30 Dose: 8 units Insulin Detemir (Levemir Vial) 40 units SQ HS [facility] Last Admin: 10/08/16 23:23 Dose: 40 units Magnesium Oxide (Mag-Ox -) 400 mg GT BID [facility] Last Admin: 10/09/16 11:06 Dose: 400 mg Miscellaneous (Duragesic Patch Waste) 1 each TD PRN PRN PRN Reason: PAIN Last Admin: 09/26/16 15:41 Dose: 1 each Morphine Sulfate (Morphine Injection -) 2 mg IVPUSH Q4H PRN PRN Reason: PAIN Last Admin: 10/09/16 13:00 Dose: 2 mg Ofloxacin (Ocuflox 0.3% Eye Drops -) 1 drop OD Q4HWA [facility] Last Admin: 10/09/16 11:08 Dose: 1 drop Potassium Chloride (Potassium Chloride Oral Liquid) 40 meq GT BID [facility] Last Admin: 10/09/16 11:05 Dose: 40 meq Prednisolone Acetate (Pred Forte 1% -) 1 drop OD BID [facility] Last Admin: 10/09/16 11:07 Dose: 1 drp Ranitidine HCl (Zantac Oral Solution -) 150 mg PO BID [facility] Last Admin: 10/09/16 12:31 Dose: 150 mg - Objective Vital Signs: Vital Signs Temperature 98.4 F 10/09/16 11:05 Pulse Rate 84 10/09/16 11:05 Respiratory Rate 20 10/09/16 11:05 Blood Pressure 118/50 10/09/16 11:05 O2 Sat by Pulse Oximetry (%) 100 10/03/16 12:19 Constitutional: Yes: Other Cardiovascular: Yes: Regular Rate and Rhythm Respiratory: Yes: Mechanically Ventilated, Rhonchi, Other Gastrointestinal: Yes: Normal Bowel Sounds, Soft, Other (peg in place) Musculoskeletal: Yes: Other Extremities: Yes: Other Neurological: Yes: Alert, Other Psychiatric: Yes: Other Labs: CBC, BMP 10/02/16 06:20 10/02/16 06:20 INR, PTT INR 1.14 (0.82-1.09) 09/07/16 22:45 Fibrinogen > 700.0 mg/dL (238-498) H 07/31/16 05:40 Assessment/Plan Problem List - Problems (1) Abdominal pain Code(s): R10.9 - UNSPECIFIED ABDOMINAL PAIN Qualifiers: Qualified Code(s): R10.33 - Periumbilical pain (2) Perforated abdominal viscus Code(s): FOR4019 - (3) Perforated viscus Code(s): R19.8 - OTH SYMPTOMS AND SIGNS INVOLVING THE DGSTV SYS AND ABDOMEN (4) Hypertension Code(s): I10 - ESSENTIAL (PRIMARY) HYPERTENSION Qualifiers: Qualified Code(s): I10 - Essential (primary) hypertension lactic acidosis fevers generalized swelling gangrene of the tip of the fingers noted pseudomonas pneumonia plan continue current mgmt nutrition continue abx continue suctioning all supportive measures vanco dose adjusted
[2016-10-09] MEDS: COLLAGENASE CLOSTRIDIUM HIST. 30 GRAMS TUBE TP SCH (15:31)
[2016-10-09] MEDS: CLOTRIMAZOLE/BETAMET DIPROP 15 GM TUBE TP SCH ×2 (15:31→21:50)
[2016-10-09] MEDS: VANCOMYCIN 1,250 MG in DEXTROSE 5%-WATER - 250 ML IVPB SCH (17:19)
[2016-10-09] MEDS: INSULIN DETEMIR 100 UNITS/ML MDV SQ SCH (21:49)
[2016-10-10] MEDS ORDERED: PT OWN MED DRAWER 7, Y5N ONE ×5 (02:14→21:41)
[2016-10-10] MEDS: CEFTAZIDIME PENTAHYDRATE 1 GM in DEXTROSE 5%-WATER - 50 ML IVPB SCH ×3 (02:17→18:10)
[2016-10-10] MEDS: VANCOMYCIN 1,250 MG in DEXTROSE 5%-WATER - 250 ML IVPB SCH ×2 (03:07→15:57)
[2016-10-10] MEDS: INSULIN SLIDING SCALE (NOVOLOG) 1 VIAL SQ SCH ×4 (06:22→22:59)
[2016-10-10] MEDS: OFLOXACIN 0.3% OPHTHALMIC SOLUTION 5 ML BOTTLE OD SCH ×5 (06:23→22:57)
[2016-10-10] MEDS ORDERED: INSULIN DETEMIR 100 UNITS/ML MDV SQ ONE (06:53)
[2016-10-10] MEDS ORDERED: INSULIN (NOVOLOG) ASPART 100 UNITS/ML 10ML VIAL ONE ×3 (06:53→22:59)
--- NOTE | 2016-10-10 08:20 | PN ---
Progress Note, Physician Chief Complaint: No new complaints History of Present Illness: On respirator - Current Medication List Current Medications: Active Medications Acetaminophen (Tylenol Oral Solution -) 650 mg PO Q4H PRN PRN Reason: FEVER OR PAIN Last Admin: 10/07/16 23:11 Dose: 650 mg Clotrimazole (Lotrisone Cream (Small Tube)) 1 applic TP BID [facility] Last Admin: 10/09/16 21:50 Dose: 1 applic Collagenase (Santyl -) 1 applic TP DAILY [facility] Last Admin: 10/09/16 15:31 Dose: 1 applic Dextrose (D50w (Vial) -) 50 gm IVPUSH Q15M PRN PRN Reason: BLOOD SUGAR < 60 Enoxaparin Sodium (Lovenox -) 40 mg SQ BID [facility] Last Admin: 10/09/16 21:51 Dose: 40 mg Furosemide (Lasix -) 20 mg GT DAILY [facility] Last Admin: 10/09/16 11:06 Dose: 20 mg Ceftazidime 1 gm/ Dextrose 50 mls @ 100 mls/hr IVPB Q8H-IV [facility] PRN Reason: Protocol Last Admin: 10/10/16 02:17 Dose: 100 mls/hr Vancomycin HCl 1,250 mg/ (Dextrose) 250 mls @ 166.667 mls/hr IVPB BID@0400, 1600 [facility] PRN Reason: Protocol Last Admin: 10/10/16 03:07 Dose: 166.667 mls/hr Insulin Aspart (Novolog Vial Sliding Scale -) 1 vial SQ ACHS [facility] PRN Reason: Protocol Last Admin: 10/10/16 06:22 Dose: 8 units Insulin Detemir (Levemir Vial) 40 units SQ HS [facility] Last Admin: 10/09/16 21:49 Dose: 40 units Magnesium Oxide (Mag-Ox -) 400 mg GT BID [facility] Last Admin: 10/09/16 21:50 Dose: 400 mg Miscellaneous (Duragesic Patch Waste) 1 each TD PRN PRN PRN Reason: PAIN Last Admin: 09/26/16 15:41 Dose: 1 each Morphine Sulfate (Morphine Injection -) 2 mg IVPUSH Q4H PRN PRN Reason: PAIN Last Admin: 10/09/16 20:21 Dose: 2 mg Ofloxacin (Ocuflox 0.3% Eye Drops -) 1 drop OD Q4HWA [facility] Last Admin: 10/10/16 06:23 Dose: 1 drop Potassium Chloride (Potassium Chloride Oral Liquid) 40 meq GT BID [facility] Last Admin: 10/09/16 21:52 Dose: 40 meq Prednisolone Acetate (Pred Forte 1% -) 1 drop OD BID [facility] Last Admin: 10/09/16 21:53 Dose: 1 drp Ranitidine HCl (Zantac Oral Solution -) 150 mg PO BID [facility] Last Admin: 10/09/16 21:53 Dose: 150 mg - Objective Vital Signs: Vital Signs Temperature 98.1 F 10/10/16 07:23 Pulse Rate 77 10/10/16 07:23 Respiratory Rate 16 10/10/16 07:23 Blood Pressure 101/45 10/10/16 07:23 O2 Sat by Pulse Oximetry (%) 100 10/03/16 12:19 Constitutional: Yes: Mild Distress Eyes: Yes: WNL HENT: Yes: WNL Neck: Yes: WNL Cardiovascular: Yes: Regular Rate and Rhythm Respiratory: Yes: Mechanically Ventilated Gastrointestinal: Yes: Normal Bowel Sounds Genitourinary: Yes: Incontinence Edema: No Labs: CBC, BMP 10/02/16 06:20 10/02/16 06:20 INR, PTT INR 1.14 (0.82-1.09) 09/07/16 22:45 Fibrinogen > 700.0 mg/dL (238-498) H 07/31/16 05:40 Assessment/Plan Will discuss hospice care with family
[2016-10-10] MEDS: RANITIDINE HCL 150 MG/10 ML UNIT-DOSE CUP PO SCH ×2 (10:25→22:57)
[2016-10-10] MEDS: ENOXAPARIN NA (PORCINE) 40 MG/0.4 ML DISP.SYRIN SQ SCH ×2 (10:25→22:50)
[2016-10-10] MEDS: CLOTRIMAZOLE/BETAMET DIPROP 15 GM TUBE TP SCH ×2 (10:25→22:49)
[2016-10-10] MEDS: MAGNESIUM OXIDE 400 MG TABLET (FP) GT SCH ×2 (10:25→22:50)
[2016-10-10] MEDS: POTASSIUM CHLORIDE ORAL LIQUID 20 MEQ/15 ML GT SCH ×2 (10:25→22:57)
[2016-10-10] MEDS: FUROSEMIDE 20 MG TABLET (FP) GT SCH (10:25)
[2016-10-10] MEDS: prednisoLONE ACETATE 1% OPHTH SUSP 5 ML BOTTLE OD SCH ×2 (10:26→22:58)
[2016-10-10] MEDS: COLLAGENASE CLOSTRIDIUM HIST. 30 GRAMS TUBE TP SCH (10:27)
[2016-10-10] MEDS: morphine CARPU-JECT 4 MG/1 ML DISP.SYRIN IVPUSH PRN ×2 (12:53→23:06)
--- NOTE | 2016-10-10 14:05 | PN ---
Progress Note, Physician History of Present Illness: PULMONARY NO CHANGE,LETHARGIC ON VENT SUPPORT ON VENT SUPPORT - Current Medication List Current Medications: Active Medications Acetaminophen (Tylenol Oral Solution -) 650 mg PO Q4H PRN PRN Reason: FEVER OR PAIN Last Admin: 10/07/16 23:11 Dose: 650 mg Clotrimazole (Lotrisone Cream (Small Tube)) 1 applic TP BID [facility] Last Admin: 10/10/16 10:25 Dose: 1 applic Collagenase (Santyl -) 1 applic TP DAILY [facility] Last Admin: 10/10/16 10:27 Dose: 1 applic Dextrose (D50w (Vial) -) 50 gm IVPUSH Q15M PRN PRN Reason: BLOOD SUGAR < 60 Enoxaparin Sodium (Lovenox -) 40 mg SQ BID [facility] Last Admin: 10/10/16 10:25 Dose: 40 mg Furosemide (Lasix -) 20 mg GT DAILY [facility] Last Admin: 10/10/16 10:25 Dose: 20 mg Ceftazidime 1 gm/ Dextrose 50 mls @ 100 mls/hr IVPB Q8H-IV [facility] PRN Reason: Protocol Last Admin: 10/10/16 10:25 Dose: 100 mls/hr Vancomycin HCl 1,250 mg/ (Dextrose) 250 mls @ 166.667 mls/hr IVPB BID@0400, 1600 [facility] PRN Reason: Protocol Last Admin: 10/10/16 03:07 Dose: 166.667 mls/hr Insulin Aspart (Novolog Vial Sliding Scale -) 1 vial SQ ACHS [facility] PRN Reason: Protocol Last Admin: 10/10/16 13:01 Dose: 4 units Insulin Detemir (Levemir Vial) 40 units SQ HS [facility] Last Admin: 10/09/16 21:49 Dose: 40 units Magnesium Oxide (Mag-Ox -) 400 mg GT BID [facility] Last Admin: 10/10/16 10:25 Dose: 400 mg Miscellaneous (Duragesic Patch Waste) 1 each TD PRN PRN PRN Reason: PAIN Last Admin: 09/26/16 15:41 Dose: 1 each Morphine Sulfate (Morphine Injection -) 2 mg IVPUSH Q4H PRN Last Admin: 10/10/16 12:53 Dose: 2 mg Ofloxacin (Ocuflox 0.3% Eye Drops -) 1 drop OD Q4HWA [facility] Last Admin: 10/10/16 13:02 Dose: 1 drop Potassium Chloride (Potassium Chloride Oral Liquid) 40 meq GT BID [facility] Last Admin: 10/10/16 10:25 Dose: 40 meq Prednisolone Acetate (Pred Forte 1% -) 1 drop OD BID [facility] Last Admin: 10/10/16 10:26 Dose: 1 drp Ranitidine HCl (Zantac Oral Solution -) 150 mg PO BID [facility] Last Admin: 10/10/16 10:25 Dose: 150 mg - Objective Vital Signs: Vital Signs Temperature 98.2 F 10/10/16 13:43 Pulse Rate 78 10/10/16 13:43 Respiratory Rate 16 10/10/16 13:43 Blood Pressure 102/52 10/10/16 13:43 O2 Sat by Pulse Oximetry (%) 100 10/03/16 12:19 Constitutional: Yes: Thin, Other (LETHARGIC) Eyes: Yes: WNL HENT: Yes: WNL Neck: Yes: Supple (TRACH) Cardiovascular: Yes: Regular Rate and Rhythm, S1, S2 Respiratory: Yes: Rhonchi (FEW RHONCHI) Gastrointestinal: Yes: Normal Bowel Sounds, Soft Extremities: Yes: Other (BILATERAL GANGRENE HANDS AND FEET) Edema: No Labs: CBC, BMP Problem List - Problems (1) ZAHIRA (acute kidney injury) Code(s): N17.9 - ACUTE KIDNEY FAILURE, UNSPECIFIED (2) Acute metabolic encephalopathy Code(s): G93.41 - METABOLIC ENCEPHALOPATHY (3) Ischemia of extremity Code(s): I99.8 - OTHER DISORDER OF CIRCULATORY SYSTEM (4) Metabolic acidemia Code(s): E87.2 - ACIDOSIS (5) Perforated abdominal viscus Code(s): [id number] - (6) Sepsis Code(s): A41.9 - SEPSIS, UNSPECIFIED ORGANISM (7) Acute respiratory failure Code(s): J96.00 - ACUTE RESPIRATORY FAILURE, UNSP W HYPOXIA OR HYPERCAPNIA Assessment/Plan ASSESSMENT AND PLAN: Perforated Duodenal Ulcer Peritonitis s/p ex-lap/omental patch repair 07/16 Enterocutaneous Fistula Acute Respiratory Failure s/p Tracheostomy s/p Septic Shock DM DVT Gangrene s/p PEA Cardiac Arrest - Fio2 to keep Spo2 >90% - anticoagulation - morphine for comfort - enteral feeds as tolerated - DVT/GI prophylaxis - antibiotics - recommend palliative due to failure to wean, anticipated amputations, poor quality of life DR OSEI
--- NOTE | 2016-10-10 14:08 | PN ---
Progress Note, Physician History of Present Illness: Patient is responsive to stimulii. Tracheostomy site is clean, Fingers with dry gangrene, abdominal wound with no drainage, tolerating feeding. - Current Medication List Current Medications: Active Medications Acetaminophen (Tylenol Oral Solution -) 650 mg PO Q4H PRN PRN Reason: FEVER OR PAIN Last Admin: 10/07/16 23:11 Dose: 650 mg Clotrimazole (Lotrisone Cream (Small Tube)) 1 applic TP BID [facility] [place] Last Admin: 10/10/16 10:25 Dose: 1 applic Collagenase (Santyl -) 1 applic TP DAILY [facility] Last Admin: 10/10/16 10:27 Dose: 1 applic Dextrose (D50w (Vial) -) 50 gm IVPUSH Q15M PRN PRN Reason: BLOOD SUGAR < 60 Enoxaparin Sodium (Lovenox -) 40 mg SQ BID [facility] Last Admin: 10/10/16 10:25 Dose: 40 mg Furosemide (Lasix -) 20 mg GT DAILY [facility] [place] Last Admin: 10/10/16 10:25 Dose: 20 mg Ceftazidime 1 gm/ Dextrose 50 mls @ 100 mls/hr IVPB Q8H-IV [facility] PRN Reason: Protocol Last Admin: 10/10/16 10:25 Dose: 100 mls/hr Vancomycin HCl 1,250 mg/ (Dextrose) 250 mls @ 166.667 mls/hr IVPB BID@0400, 1600 [facility] PRN Reason: Protocol Last Admin: 10/10/16 03:07 Dose: 166.667 mls/hr Insulin Aspart (Novolog Vial Sliding Scale -) 1 vial SQ ACHS [facility] [place] PRN Reason: Protocol Last Admin: 10/10/16 13:01 Dose: 4 units Insulin Detemir (Levemir Vial) 40 units SQ HS [facility] [place] Last Admin: 10/09/16 21:49 Dose: 40 units Magnesium Oxide (Mag-Ox -) 400 mg GT BID [facility] [place] Last Admin: 10/10/16 10:25 Dose: 400 mg Miscellaneous (Duragesic Patch Waste) 1 each TD PRN PRN PRN Reason: PAIN Last Admin: 09/26/16 15:41 Dose: 1 each Morphine Sulfate (Morphine Injection -) 2 mg IVPUSH Q4H PRN Last Admin: 10/10/16 12:53 Dose: 2 mg Ofloxacin (Ocuflox 0.3% Eye Drops -) 1 drop OD Q4HWA [facility] Last Admin: 10/10/16 13:02 Dose: 1 drop Potassium Chloride (Potassium Chloride Oral Liquid) 40 meq GT BID [facility] Last Admin: 10/10/16 10:25 Dose: 40 meq Prednisolone Acetate (Pred Forte 1% -) 1 drop OD BID [facility] [place] Last Admin: 10/10/16 10:26 Dose: 1 drp Ranitidine HCl (Zantac Oral Solution -) 150 mg PO BID [facility] Last Admin: 10/10/16 10:25 Dose: 150 mg - Objective Vital Signs: Vital Signs Temperature 98.2 F 10/10/16 13:43 Pulse Rate 78 10/10/16 13:43 Respiratory Rate 16 10/10/16 13:43 Blood Pressure 102/52 10/10/16 13:43 O2 Sat by Pulse Oximetry (%) 100 10/03/16 12:19 Labs: CBC, BMP 10/02/16 06:20 10/02/16 06:20 INR, PTT INR 1.14 (0.82-1.09) 09/07/16 22:45 Fibrinogen > 700.0 mg/dL (238-498) H 07/31/16 05:40 Problem List - Problems (1) Abdominal pain Code(s): R10.9 - UNSPECIFIED ABDOMINAL PAIN Qualifiers: Abdominal location: periumbilical Qualified Code(s): R10.33 - Periumbilical pain (2) Perforated abdominal viscus Code(s): [id number] - (3) Perforated viscus Code(s): R19.8 - OTH SYMPTOMS AND SIGNS INVOLVING THE DGSTV SYS AND ABDOMEN (4) Hypertension Code(s): I10 - ESSENTIAL (PRIMARY) HYPERTENSION Qualifiers: Hypertension type: essential hypertension Qualified Code(s): I10 - Essential (primary) hypertension
--- NOTE | 2016-10-10 16:01 | PN ---
Progress Note, Physician History of Present Illness: patient much more awake and alert has remained afebrile - Current Medication List Current Medications: Active Medications Acetaminophen (Tylenol Oral Solution -) 650 mg PO Q4H PRN PRN Reason: FEVER OR PAIN Last Admin: 10/07/16 23:11 Dose: 650 mg Clotrimazole (Lotrisone Cream (Small Tube)) 1 applic TP BID [facility] Last Admin: 10/10/16 10:25 Dose: 1 applic Collagenase (Santyl -) 1 applic TP DAILY [facility] Last Admin: 10/10/16 10:27 Dose: 1 applic Dextrose (D50w (Vial) -) 50 gm IVPUSH Q15M PRN PRN Reason: BLOOD SUGAR < 60 Enoxaparin Sodium (Lovenox -) 40 mg SQ BID [facility] Last Admin: 10/10/16 10:25 Dose: 40 mg Furosemide (Lasix -) 20 mg GT DAILY [facility] Last Admin: 10/10/16 10:25 Dose: 20 mg Ceftazidime 1 gm/ Dextrose 50 mls @ 100 mls/hr IVPB Q8H-IV [facility] PRN Reason: Protocol Last Admin: 10/10/16 10:25 Dose: 100 mls/hr Vancomycin HCl 1,250 mg/ (Dextrose) 250 mls @ 166.667 mls/hr IVPB BID@0400, 1600 [facility] PRN Reason: Protocol Last Admin: 10/10/16 15:57 Dose: 166.667 mls/hr Insulin Aspart (Novolog Vial Sliding Scale -) 1 vial SQ ACHS [facility] PRN Reason: Protocol Last Admin: 10/10/16 13:01 Dose: 4 units Insulin Detemir (Levemir Vial) 40 units SQ HS [facility] Last Admin: 10/09/16 21:49 Dose: 40 units Magnesium Oxide (Mag-Ox -) 400 mg GT BID [facility] Last Admin: 10/10/16 10:25 Dose: 400 mg Miscellaneous (Duragesic Patch Waste) 1 each TD PRN PRN PRN Reason: PAIN Last Admin: 09/26/16 15:41 Dose: 1 each Morphine Sulfate (Morphine Injection -) 2 mg IVPUSH Q4H PRN Last Admin: 10/10/16 12:53 Dose: 2 mg Ofloxacin (Ocuflox 0.3% Eye Drops -) 1 drop OD Q4HWA [facility] Last Admin: 10/10/16 13:02 Dose: 1 drop Potassium Chloride (Potassium Chloride Oral Liquid) 40 meq GT BID [facility] Last Admin: 10/10/16 10:25 Dose: 40 meq Prednisolone Acetate (Pred Forte 1% -) 1 drop OD BID [facility] Last Admin: 10/10/16 10:26 Dose: 1 drp Ranitidine HCl (Zantac Oral Solution -) 150 mg PO BID [facility] Last Admin: 10/10/16 10:25 Dose: 150 mg - Objective Vital Signs: Vital Signs Temperature 98.2 F 10/10/16 13:43 Pulse Rate 78 10/10/16 13:43 Respiratory Rate 18 10/10/16 14:28 Blood Pressure 102/52 10/10/16 13:43 O2 Sat by Pulse Oximetry (%) 100 10/03/16 12:19 Constitutional: Yes: No Distress, Calm Cardiovascular: Yes: Regular Rate and Rhythm Respiratory: Yes: Regular, Poor Air Entry, Rhonchi Gastrointestinal: Yes: Normal Bowel Sounds, Soft, Other (peg in place) Musculoskeletal: Yes: Other Extremities: Yes: Other (fingers are showing signs of improving) Neurological: Yes: Alert, Other Psychiatric: Yes: Alert, Other Labs: CBC, BMP 10/02/16 06:20 10/02/16 06:20 INR, PTT INR 1.14 (0.82-1.09) 09/07/16 22:45 Fibrinogen > 700.0 mg/dL (238-498) H 07/31/16 05:40 Assessment/Plan Problem List - Problems (1) Abdominal pain Code(s): R10.9 - UNSPECIFIED ABDOMINAL PAIN Qualifiers: Qualified Code(s): R10.33 - Periumbilical pain (2) Perforated abdominal viscus Code(s): [id number] - (3) Perforated viscus Code(s): R19.8 - OTH SYMPTOMS AND SIGNS INVOLVING THE DGSTV SYS AND ABDOMEN (4) Hypertension Code(s): I10 - ESSENTIAL (PRIMARY) HYPERTENSION Qualifiers: Qualified Code(s): I10 - Essential (primary) hypertension lactic acidosis fevers generalized swelling gangrene of the tip of the fingers noted pseudomonas pneumonia plan continue current mgmt nutrition continue abx continue suctioning all supportive measures patient remaining afebrile patient is stable enough to be transferred to penitentiary
[2016-10-10] MEDS: INSULIN DETEMIR 100 UNITS/ML MDV SQ SCH (22:47)
[2016-10-11] MEDS ORDERED: PT OWN MED DRAWER 7, Y5N ONE ×8 (02:29→19:05)
[2016-10-11] MEDS: CEFTAZIDIME PENTAHYDRATE 1 GM in DEXTROSE 5%-WATER - 50 ML IVPB SCH ×3 (02:32→17:00)
[2016-10-11] MEDS: VANCOMYCIN 1,250 MG in DEXTROSE 5%-WATER - 250 ML IVPB SCH ×2 (04:14→17:01)
[2016-10-11] MEDS: INSULIN SLIDING SCALE (NOVOLOG) 1 VIAL SQ SCH ×4 (06:55→22:08)
[2016-10-11] MEDS: OFLOXACIN 0.3% OPHTHALMIC SOLUTION 5 ML BOTTLE OD SCH ×5 (06:56→22:08)
[2016-10-11] MEDS ORDERED: INSULIN DETEMIR 100 UNITS/ML MDV SQ ONE (07:08)
[2016-10-11] MEDS ORDERED: INSULIN (NOVOLOG) ASPART 100 UNITS/ML 10ML VIAL ONE (07:08)
--- NOTE | 2016-10-11 08:27 | PN ---
Progress Note, Physician Chief Complaint: No new complaints History of Present Illness: Has difficulty in weaning - Current Medication List Current Medications: Active Medications Acetaminophen (Tylenol Oral Solution -) 650 mg PO Q4H PRN PRN Reason: FEVER OR PAIN Last Admin: 10/07/16 23:11 Dose: 650 mg Clotrimazole (Lotrisone Cream (Small Tube)) 1 applic TP BID [facility] Last Admin: 10/10/16 22:49 Dose: 1 applic Collagenase (Santyl -) 1 applic TP DAILY [facility] Last Admin: 10/10/16 10:27 Dose: 1 applic Dextrose (D50w (Vial) -) 50 gm IVPUSH Q15M PRN PRN Reason: BLOOD SUGAR < 60 Enoxaparin Sodium (Lovenox -) 40 mg SQ BID [facility] Last Admin: 10/10/16 22:50 Dose: 40 mg Furosemide (Lasix -) 20 mg GT DAILY [facility] Last Admin: 10/10/16 10:25 Dose: 20 mg Ceftazidime 1 gm/ Dextrose 50 mls @ 100 mls/hr IVPB Q8H-IV [facility] PRN Reason: Protocol Last Admin: 10/11/16 02:32 Dose: 100 mls/hr Vancomycin HCl 1,250 mg/ (Dextrose) 250 mls @ 166.667 mls/hr IVPB BID@0400, 1600 [facility] PRN Reason: Protocol Last Admin: 10/11/16 04:14 Dose: 166.667 mls/hr Insulin Aspart (Novolog Vial Sliding Scale -) 1 vial SQ ACHS [facility] PRN Reason: Protocol Last Admin: 10/11/16 06:55 Dose: 8 units Insulin Detemir (Levemir Vial) 40 units SQ HS [facility] Last Admin: 10/10/16 22:47 Dose: 40 units Magnesium Oxide (Mag-Ox -) 400 mg GT BID [facility] Last Admin: 10/10/16 22:50 Dose: 400 mg Miscellaneous (Duragesic Patch Waste) 1 each TD PRN PRN PRN Reason: PAIN Last Admin: 09/26/16 15:41 Dose: 1 each Morphine Sulfate (Morphine Injection -) 2 mg IVPUSH Q4H PRN Last Admin: 10/10/16 23:06 Dose: 2 mg Ofloxacin (Ocuflox 0.3% Eye Drops -) 1 drop OD Q4HWA [facility] Last Admin: 10/11/16 06:56 Dose: 1 drop Potassium Chloride (Potassium Chloride Oral Liquid) 40 meq GT BID [facility] Last Admin: 10/10/16 22:57 Dose: 40 meq Prednisolone Acetate (Pred Forte 1% -) 1 drop OD BID [facility] Last Admin: 10/10/16 22:58 Dose: 1 drp Ranitidine HCl (Zantac Oral Solution -) 150 mg PO BID [facility] Last Admin: 10/10/16 22:57 Dose: 150 mg - Objective Vital Signs: Vital Signs Temperature 98.0 F 10/11/16 06:00 Pulse Rate 78 10/11/16 06:00 Respiratory Rate 19 10/11/16 07:00 Blood Pressure 100/54 10/11/16 06:00 O2 Sat by Pulse Oximetry (%) 100 10/03/16 12:19 Constitutional: Yes: Calm Eyes: Yes: WNL HENT: Yes: WNL Neck: Yes: WNL Cardiovascular: Yes: Regular Rate and Rhythm Respiratory: Yes: Mechanically Ventilated Gastrointestinal: Yes: Normal Bowel Sounds Genitourinary: Yes: Incontinence Edema: No Wound/Incision: Yes: Clean/Dry Neurological: Yes: Alert Labs: CBC, BMP 10/02/16 06:20 10/02/16 06:20 INR, PTT INR 1.14 (0.82-1.09) 09/07/16 22:45 Fibrinogen > 700.0 mg/dL (238-498) H 07/31/16 05:40 Assessment/Plan will attempt weaning
--- NOTE | 2016-10-11 10:56 | PN ---
Progress Note, Physician History of Present Illness: pulmonary awake,alert today on vent support,-resp distress - Current Medication List Current Medications: Active Medications Acetaminophen (Tylenol Oral Solution -) 650 mg PO Q4H PRN PRN Reason: FEVER OR PAIN Last Admin: 10/07/16 23:11 Dose: 650 mg Clotrimazole (Lotrisone Cream (Small Tube)) 1 applic TP BID [facility] Last Admin: 10/10/16 22:49 Dose: 1 applic Collagenase (Santyl -) 1 applic TP DAILY [facility] Last Admin: 10/10/16 10:27 Dose: 1 applic Dextrose (D50w (Vial) -) 50 gm IVPUSH Q15M PRN PRN Reason: BLOOD SUGAR < 60 Enoxaparin Sodium (Lovenox -) 40 mg SQ BID [facility] Last Admin: 10/10/16 22:50 Dose: 40 mg Furosemide (Lasix -) 20 mg GT DAILY [facility] Last Admin: 10/10/16 10:25 Dose: 20 mg Ceftazidime 1 gm/ Dextrose 50 mls @ 100 mls/hr IVPB Q8H-IV [facility] PRN Reason: Protocol Last Admin: 10/11/16 09:02 Dose: 100 mls/hr Vancomycin HCl 1,250 mg/ (Dextrose) 250 mls @ 166.667 mls/hr IVPB BID@0400, 1600 [facility] PRN Reason: Protocol Last Admin: 10/11/16 04:14 Dose: 166.667 mls/hr Insulin Aspart (Novolog Vial Sliding Scale -) 1 vial SQ ACHS [facility] PRN Reason: Protocol Last Admin: 10/11/16 06:55 Dose: 8 units Insulin Detemir (Levemir Vial) 40 units SQ HS [facility] Last Admin: 10/10/16 22:47 Dose: 40 units Magnesium Oxide (Mag-Ox -) 400 mg GT BID [facility] Last Admin: 10/10/16 22:50 Dose: 400 mg Miscellaneous (Duragesic Patch Waste) 1 each TD PRN PRN PRN Reason: PAIN Last Admin: 09/26/16 15:41 Dose: 1 each Morphine Sulfate (Morphine Injection -) 2 mg IVPUSH Q4H PRN Last Admin: 10/10/16 23:06 Dose: 2 mg Ofloxacin (Ocuflox 0.3% Eye Drops -) 1 drop OD Q4HWA [facility] Last Admin: 10/11/16 06:56 Dose: 1 drop Potassium Chloride (Potassium Chloride Oral Liquid) 40 meq GT BID [facility] Last Admin: 10/10/16 22:57 Dose: 40 meq Prednisolone Acetate (Pred Forte 1% -) 1 drop OD BID [facility] Last Admin: 10/10/16 22:58 Dose: 1 drp Ranitidine HCl (Zantac Oral Solution -) 150 mg PO BID [facility] Last Admin: 10/10/16 22:57 Dose: 150 mg - Objective Vital Signs: Vital Signs Temperature 98.0 F 10/11/16 06:00 Pulse Rate 78 10/11/16 06:00 Respiratory Rate 19 10/11/16 07:00 Blood Pressure 100/54 10/11/16 06:00 O2 Sat by Pulse Oximetry (%) 100 10/03/16 12:19 Constitutional: Yes: Calm, Thin Eyes: Yes: WNL HENT: Yes: WNL Neck: Yes: Supple (trach) Cardiovascular: Yes: Regular Rate and Rhythm, S1, S2 Respiratory: Yes: Rhonchi (few rhonchi) Gastrointestinal: Yes: Normal Bowel Sounds, Soft Extremities: Yes: Other (elia gangrenehands and feet) Labs: CBC, BMP 10/02/16 06:20 10/02/16 06:20 INR, PTT INR 1.14 (0.82-1.09) 09/07/16 22:45 Fibrinogen > 700.0 mg/dL (238-498) H 07/31/16 05:40 Problem List - Problems (1) ZAHIRA (acute kidney injury) Code(s): N17.9 - ACUTE KIDNEY FAILURE, UNSPECIFIED (2) Acute metabolic encephalopathy Code(s): G93.41 - METABOLIC ENCEPHALOPATHY (3) Ischemia of extremity Code(s): I99.8 - OTHER DISORDER OF CIRCULATORY SYSTEM (4) Metabolic acidemia Code(s): E87.2 - ACIDOSIS (5) Perforated abdominal viscus Code(s): [id number] - (6) Sepsis Code(s): A41.9 - SEPSIS, UNSPECIFIED ORGANISM (7) Acute respiratory failure Code(s): J96.00 - ACUTE RESPIRATORY FAILURE, UNSP W HYPOXIA OR HYPERCAPNIA Assessment/Plan ASSESSMENT AND PLAN: Perforated Duodenal Ulcer Peritonitis s/p ex-lap/omental patch repair 07/16 Enterocutaneous Fistula Acute Respiratory Failure s/p Tracheostomy s/p Septic Shock DM DVT Gangrene s/p PEA Cardiac Arrest - Fio2 to keep Spo2 >90% - anticoagulation - morphine for comfort - enteral feeds as tolerated - DVT/GI prophylaxis - antibiotics - recommend palliative due to failure to wean, anticipated amputations, poor quality of life DR OSEI
--- NOTE | 2016-10-11 11:36 | PN ---
Progress Note, Physician Chief Complaint: ID follow up History of Present Illness: Pt arousable, without distress on vent - Current Medication List Current Medications: Active Medications Acetaminophen (Tylenol Oral Solution -) 650 mg PO Q4H PRN PRN Reason: FEVER OR PAIN Last Admin: 10/07/16 23:11 Dose: 650 mg Clotrimazole (Lotrisone Cream (Small Tube)) 1 applic TP BID [facility] Last Admin: 10/10/16 22:49 Dose: 1 applic Collagenase (Santyl -) 1 applic TP DAILY [facility] Last Admin: 10/10/16 10:27 Dose: 1 applic Dextrose (D50w (Vial) -) 50 gm IVPUSH Q15M PRN PRN Reason: BLOOD SUGAR < 60 Enoxaparin Sodium (Lovenox -) 40 mg SQ BID [facility] Last Admin: 10/10/16 22:50 Dose: 40 mg Furosemide (Lasix -) 20 mg GT DAILY [facility] Last Admin: 10/10/16 10:25 Dose: 20 mg Ceftazidime 1 gm/ Dextrose 50 mls @ 100 mls/hr IVPB Q8H-IV [facility] PRN Reason: Protocol Last Admin: 10/11/16 09:02 Dose: 100 mls/hr Vancomycin HCl 1,250 mg/ (Dextrose) 250 mls @ 166.667 mls/hr IVPB BID@0400, 1600 [facility] PRN Reason: Protocol Last Admin: 10/11/16 04:14 Dose: 166.667 mls/hr Insulin Aspart (Novolog Vial Sliding Scale -) 1 vial SQ ACHS [facility] PRN Reason: Protocol Last Admin: 10/11/16 06:55 Dose: 8 units Insulin Detemir (Levemir Vial) 40 units SQ HS [facility] Last Admin: 10/10/16 22:47 Dose: 40 units Magnesium Oxide (Mag-Ox -) 400 mg GT BID [facility] Last Admin: 10/10/16 22:50 Dose: 400 mg Miscellaneous (Duragesic Patch Waste) 1 each TD PRN PRN PRN Reason: PAIN Last Admin: 09/26/16 15:41 Dose: 1 each Morphine Sulfate (Morphine Injection -) 2 mg IVPUSH Q4H PRN Last Admin: 10/10/16 23:06 Dose: 2 mg Ofloxacin (Ocuflox 0.3% Eye Drops -) 1 drop OD Q4HWA [facility] Last Admin: 10/11/16 06:56 Dose: 1 drop Potassium Chloride (Potassium Chloride Oral Liquid) 40 meq GT BID [facility] Last Admin: 10/10/16 22:57 Dose: 40 meq Prednisolone Acetate (Pred Forte 1% -) 1 drop OD BID [facility] Last Admin: 10/10/16 22:58 Dose: 1 drp Ranitidine HCl (Zantac Oral Solution -) 150 mg PO BID [facility] Last Admin: 10/10/16 22:57 Dose: 150 mg - Objective Vital Signs: Vital Signs Temperature 98.0 F 10/11/16 06:00 Pulse Rate 78 10/11/16 06:00 Respiratory Rate 19 10/11/16 07:00 Blood Pressure 100/54 10/11/16 06:00 O2 Sat by Pulse Oximetry (%) 100 10/03/16 12:19 Constitutional: Yes: No Distress Cardiovascular: Yes: Regular Rate and Rhythm Respiratory: Yes: Mechanically Ventilated, Rhonchi Gastrointestinal: Yes: Normal Bowel Sounds, Soft Extremities: Yes: Other (gangrenous feet and toes b/l) Labs: CBC, BMP 10/02/16 06:20 10/02/16 06:20 INR, PTT INR 1.14 (0.82-1.09) 09/07/16 22:45 Fibrinogen > 700.0 mg/dL (238-498) H 07/31/16 05:40 Problem List - Problems (1) Cardiac arrest due to respiratory disorder Code(s): J98.9 - RESPIRATORY DISORDER, UNSPECIFIED I46.8 - CARDIAC ARREST DUE TO OTHER UNDERLYING CONDITION (2) Diabetes mellitus Code(s): E11.9 - TYPE 2 DIABETES MELLITUS WITHOUT COMPLICATIONS Qualifiers: Diabetes mellitus type: type 2 (3) Perforated abdominal viscus Code(s): CDC7783 - (4) Sepsis Code(s): A41.9 - SEPSIS, UNSPECIFIED ORGANISM (5) Pseudomonas pneumonia Code(s): J15.1 - PNEUMONIA DUE TO PSEUDOMONAS (6) Respiratory failure Code(s): J96.90 - RESPIRATORY FAILURE, UNSP, UNSP W HYPOXIA OR HYPERCAPNIA Assessment/Plan - PNA on Vent s/p Sepsis ---continue antibiotics pt afebrile, stable
[2016-10-11] MEDS: ENOXAPARIN NA (PORCINE) 40 MG/0.4 ML DISP.SYRIN SQ SCH ×2 (12:01→22:07)
[2016-10-11] MEDS: POTASSIUM CHLORIDE ORAL LIQUID 20 MEQ/15 ML GT SCH ×2 (12:02→22:09)
[2016-10-11] MEDS: RANITIDINE HCL 150 MG/10 ML UNIT-DOSE CUP PO SCH ×2 (12:02→22:09)
[2016-10-11] MEDS: MAGNESIUM OXIDE 400 MG TABLET (FP) GT SCH ×2 (12:02→22:07)
[2016-10-11] MEDS: CLOTRIMAZOLE/BETAMET DIPROP 15 GM TUBE TP SCH ×2 (12:03→22:07)
[2016-10-11] MEDS: FUROSEMIDE 20 MG TABLET (FP) GT SCH (12:03)
[2016-10-11] MEDS: prednisoLONE ACETATE 1% OPHTH SUSP 5 ML BOTTLE OD SCH ×2 (12:04→22:09)
[2016-10-11] MEDS: COLLAGENASE CLOSTRIDIUM HIST. 30 GRAMS TUBE TP SCH (18:50)
[2016-10-11] MEDS: INSULIN DETEMIR 100 UNITS/ML MDV SQ SCH (22:06)
[2016-10-12] MEDS: CEFTAZIDIME PENTAHYDRATE 1 GM in DEXTROSE 5%-WATER - 50 ML IVPB SCH ×4 (01:54→18:51)
[2016-10-12] MEDS: VANCOMYCIN 1,250 MG in DEXTROSE 5%-WATER - 250 ML IVPB SCH ×2 (04:23→16:16)
[2016-10-12] MEDS: INSULIN SLIDING SCALE (NOVOLOG) 1 VIAL SQ SCH ×4 (06:29→21:58)
[2016-10-12] MEDS: OFLOXACIN 0.3% OPHTHALMIC SOLUTION 5 ML BOTTLE OD SCH ×5 (06:30→21:58)
[2016-10-12] MEDS ORDERED: INSULIN (NOVOLOG) ASPART 100 UNITS/ML 10ML VIAL ONE ×4 (06:32→20:45)
--- NOTE | 2016-10-12 10:27 | PN ---
Progress Note, Physician History of Present Illness: pulmonary alert on vent support ac mode - Current Medication List Current Medications: Active Medications Acetaminophen (Tylenol Oral Solution -) 650 mg PO Q4H PRN PRN Reason: FEVER OR PAIN Last Admin: 10/07/16 23:11 Dose: 650 mg Clotrimazole (Lotrisone Cream (Small Tube)) 1 applic TP BID [facility] Last Admin: 10/11/16 22:07 Dose: 1 applic Collagenase (Santyl -) 1 applic TP DAILY [facility] Last Admin: 10/11/16 18:50 Dose: 1 applic Dextrose (D50w (Vial) -) 50 gm IVPUSH Q15M PRN PRN Reason: BLOOD SUGAR < 60 Enoxaparin Sodium (Lovenox -) 40 mg SQ BID [facility] Last Admin: 10/11/16 22:07 Dose: 40 mg Furosemide (Lasix -) 20 mg GT DAILY [facility] Last Admin: 10/11/16 12:03 Dose: Not Given Ceftazidime 1 gm/ Dextrose 50 mls @ 100 mls/hr IVPB Q8H-IV [facility] PRN Reason: Protocol Last Admin: 10/12/16 01:54 Dose: 100 mls/hr Vancomycin HCl 1,250 mg/ (Dextrose) 250 mls @ 166.667 mls/hr IVPB BID@0400, 1600 [facility] PRN Reason: Protocol Last Admin: 10/12/16 04:23 Dose: 166.667 mls/hr Insulin Aspart (Novolog Vial Sliding Scale -) 1 vial SQ ACHS [facility] PRN Reason: Protocol Last Admin: 10/12/16 06:29 Dose: 8 units Insulin Detemir (Levemir Vial) 40 units SQ HS [facility] Last Admin: 10/11/16 22:06 Dose: 40 units Magnesium Oxide (Mag-Ox -) 400 mg GT BID [facility] Last Admin: 10/11/16 22:07 Dose: 400 mg Miscellaneous (Duragesic Patch Waste) 1 each TD PRN PRN PRN Reason: PAIN Last Admin: 09/26/16 15:41 Dose: 1 each Morphine Sulfate (Morphine Injection -) 2 mg IVPUSH Q4H PRN Last Admin: 10/10/16 23:06 Dose: 2 mg Ofloxacin (Ocuflox 0.3% Eye Drops -) 1 drop OD Q4HWA [facility] Last Admin: 10/12/16 06:30 Dose: 1 drop Potassium Chloride (Potassium Chloride Oral Liquid) 40 meq GT BID [facility] Last Admin: 10/11/16 22:09 Dose: 40 meq Prednisolone Acetate (Pred Forte 1% -) 1 drop OD BID [facility] Last Admin: 10/11/16 22:09 Dose: 1 drp Ranitidine HCl (Zantac Oral Solution -) 150 mg PO BID [facility] Last Admin: 10/11/16 22:09 Dose: 150 mg - Objective Vital Signs: Vital Signs Temperature 97.9 F 10/12/16 06:00 Pulse Rate 78 10/12/16 06:00 Respiratory Rate 16 10/12/16 06:25 Blood Pressure 112/43 10/12/16 06:00 O2 Sat by Pulse Oximetry (%) 100 10/03/16 12:19 Constitutional: Yes: Calm, Thin Eyes: Yes: WNL HENT: Yes: WNL Neck: Yes: Supple Cardiovascular: Yes: Regular Rate and Rhythm, S1, S2 Respiratory: Yes: Rhonchi (few rhonchi) Gastrointestinal: Yes: Normal Bowel Sounds, Soft Extremities: Yes: Other (bilateral gangrene hands and feet) Edema: No Labs: CBC, BMP Problem List - Problems (1) ZAHIRA (acute kidney injury) Code(s): N17.9 - ACUTE KIDNEY FAILURE, UNSPECIFIED (2) Acute metabolic encephalopathy Code(s): G93.41 - METABOLIC ENCEPHALOPATHY (3) Ischemia of extremity Code(s): I99.8 - OTHER DISORDER OF CIRCULATORY SYSTEM (4) Metabolic acidemia Code(s): E87.2 - ACIDOSIS (5) Perforated abdominal viscus Code(s): [id number] - (6) Sepsis Code(s): A41.9 - SEPSIS, UNSPECIFIED ORGANISM (7) Acute respiratory failure Code(s): J96.00 - ACUTE RESPIRATORY FAILURE, UNSP W HYPOXIA OR HYPERCAPNIA Assessment/Plan ASSESSMENT AND PLAN: Perforated Duodenal Ulcer Peritonitis s/p ex-lap/omental patch repair 07/16 Enterocutaneous Fistula Acute Respiratory Failure s/p Tracheostomy s/p Septic Shock DM DVT Gangrene s/p PEA Cardiac Arrest - Fio2 to keep Spo2 >90% - anticoagulation - morphine for comfort - enteral feeds as tolerated - DVT/GI prophylaxis - antibiotics - recommend palliative due to failure to wean, anticipated amputations, poor quality of life DR OSEI
[2016-10-12] MEDS ORDERED: PT OWN MED DRAWER 7, Y5N ONE ×4 (11:05→19:36)
--- NOTE | 2016-10-12 11:06 | PN ---
Progress Note, Physician Chief Complaint: On respirator History of Present Illness: Weaning from respirator attempted - Current Medication List Current Medications: Active Medications Acetaminophen (Tylenol Oral Solution -) 650 mg PO Q4H PRN PRN Reason: FEVER OR PAIN Last Admin: 10/07/16 23:11 Dose: 650 mg Clotrimazole (Lotrisone Cream (Small Tube)) 1 applic TP BID [facility] Last Admin: 10/11/16 22:07 Dose: 1 applic Collagenase (Santyl -) 1 applic TP DAILY [facility] Last Admin: 10/11/16 18:50 Dose: 1 applic Dextrose (D50w (Vial) -) 50 gm IVPUSH Q15M PRN PRN Reason: BLOOD SUGAR < 60 Enoxaparin Sodium (Lovenox -) 40 mg SQ BID [facility] Last Admin: 10/11/16 22:07 Dose: 40 mg Furosemide (Lasix -) 20 mg GT DAILY [facility] Last Admin: 10/11/16 12:03 Dose: Not Given Ceftazidime 1 gm/ Dextrose 50 mls @ 100 mls/hr IVPB Q8H-IV [facility] PRN Reason: Protocol Last Admin: 10/12/16 01:54 Dose: 100 mls/hr Vancomycin HCl 1,250 mg/ (Dextrose) 250 mls @ 166.667 mls/hr IVPB BID@0400, 1600 [facility] PRN Reason: Protocol Last Admin: 10/12/16 04:23 Dose: 166.667 mls/hr Insulin Aspart (Novolog Vial Sliding Scale -) 1 vial SQ ACHS [facility] PRN Reason: Protocol Last Admin: 10/12/16 06:29 Dose: 8 units Insulin Detemir (Levemir Vial) 40 units SQ HS [facility] Last Admin: 10/11/16 22:06 Dose: 40 units Magnesium Oxide (Mag-Ox -) 400 mg GT BID [facility] Last Admin: 10/11/16 22:07 Dose: 400 mg Miscellaneous (Duragesic Patch Waste) 1 each TD PRN PRN PRN Reason: PAIN Last Admin: 09/26/16 15:41 Dose: 1 each Morphine Sulfate (Morphine Injection -) 2 mg IVPUSH Q4H PRN Last Admin: 10/10/16 23:06 Dose: 2 mg Ofloxacin (Ocuflox 0.3% Eye Drops -) 1 drop OD Q4HWA [facility] Last Admin: 10/12/16 06:30 Dose: 1 drop Potassium Chloride (Potassium Chloride Oral Liquid) 40 meq GT BID [facility] Last Admin: 10/11/16 22:09 Dose: 40 meq Prednisolone Acetate (Pred Forte 1% -) 1 drop OD BID [facility] Last Admin: 10/11/16 22:09 Dose: 1 drp Ranitidine HCl (Zantac Oral Solution -) 150 mg PO BID [facility] Last Admin: 10/11/16 22:09 Dose: 150 mg - Objective Vital Signs: Vital Signs Temperature 97.9 F 10/12/16 06:00 Pulse Rate 78 10/12/16 06:00 Respiratory Rate 22 10/12/16 10:48 Blood Pressure 112/43 10/12/16 06:00 O2 Sat by Pulse Oximetry (%) 100 10/03/16 12:19 Constitutional: Yes: Moderate Distress Eyes: Yes: WNL HENT: Yes: WNL Neck: Yes: Other (Trachacheostomy working OK) Cardiovascular: Yes: Regular Rate and Rhythm Gastrointestinal: Yes: Normal Bowel Sounds ...Rectal Exam: Yes: Deferred Genitourinary: Yes: Incontinence Extremities: Yes: Deformity Neurological: Yes: Alert Labs: CBC, BMP 10/02/16 06:20 10/02/16 06:20 INR, PTT INR 1.14 (0.82-1.09) 09/07/16 22:45 Fibrinogen > 700.0 mg/dL (238-498) H 07/31/16 05:40
[2016-10-12] MEDS: MAGNESIUM OXIDE 400 MG TABLET (FP) GT SCH ×2 (11:07→21:58)
[2016-10-12] MEDS: ENOXAPARIN NA (PORCINE) 40 MG/0.4 ML DISP.SYRIN SQ SCH ×3 (11:07→21:57)
[2016-10-12] MEDS: RANITIDINE HCL 150 MG/10 ML UNIT-DOSE CUP PO SCH ×2 (11:08→21:59)
[2016-10-12] MEDS: POTASSIUM CHLORIDE ORAL LIQUID 20 MEQ/15 ML GT SCH ×2 (11:09→21:59)
[2016-10-12] MEDS: prednisoLONE ACETATE 1% OPHTH SUSP 5 ML BOTTLE OD SCH ×2 (11:09→21:59)
[2016-10-12] MEDS: FUROSEMIDE 20 MG TABLET (FP) GT SCH (11:10)
[2016-10-12] MEDS: CLOTRIMAZOLE/BETAMET DIPROP 15 GM TUBE TP SCH ×2 (11:10→21:57)
[2016-10-12] MEDS: COLLAGENASE CLOSTRIDIUM HIST. 30 GRAMS TUBE TP SCH (11:11)
--- NOTE | 2016-10-12 19:17 | PN ---
Progress Note, Physician History of Present Illness: Pt remains alert, afebrile No new events on MV - Current Medication List Current Medications: Active Medications Acetaminophen (Tylenol Oral Solution -) 650 mg PO Q4H PRN PRN Reason: FEVER OR PAIN Last Admin: 10/07/16 23:11 Dose: 650 mg Clotrimazole (Lotrisone Cream (Small Tube)) 1 applic TP BID [facility] Last Admin: 10/12/16 11:10 Dose: 1 applic Collagenase (Santyl -) 1 applic TP DAILY [facility] Last Admin: 10/12/16 11:11 Dose: 1 applic Dextrose (D50w (Vial) -) 50 gm IVPUSH Q15M PRN PRN Reason: BLOOD SUGAR < 60 Enoxaparin Sodium (Lovenox -) 40 mg SQ BID [facility] Last Admin: 10/12/16 11:08 Dose: 40 mg Furosemide (Lasix -) 20 mg GT DAILY [facility] Last Admin: 10/12/16 11:10 Dose: 20 mg Ceftazidime 1 gm/ Dextrose 50 mls @ 100 mls/hr IVPB Q8H-IV [facility] PRN Reason: Protocol Last Admin: 10/12/16 18:51 Dose: Not Given Vancomycin HCl 1,250 mg/ (Dextrose) 250 mls @ 166.667 mls/hr IVPB BID@0400, 1600 [facility] PRN Reason: Protocol Last Admin: 10/12/16 16:16 Dose: 166.667 mls/hr Insulin Aspart (Novolog Vial Sliding Scale -) 1 vial SQ [facility] PRN Reason: Protocol Last Admin: 10/12/16 18:13 Dose: 8 units Insulin Detemir (Levemir Vial) 40 units SQ HS [facility] Last Admin: 10/11/16 22:06 Dose: 40 units Magnesium Oxide (Mag-Ox -) 400 mg GT BID [facility] Last Admin: 10/12/16 11:07 Dose: 400 mg Miscellaneous (Duragesic Patch Waste) 1 each TD PRN PRN PRN Reason: PAIN Last Admin: 09/26/16 15:41 Dose: 1 each Morphine Sulfate (Morphine Injection -) 2 mg IVPUSH Q4H PRN Last Admin: 10/10/16 23:06 Dose: 2 mg Ofloxacin (Ocuflox 0.3% Eye Drops -) 1 drop OD Q4HWA [facility] Last Admin: 10/12/16 18:13 Dose: 1 drop Potassium Chloride (Potassium Chloride Oral Liquid) 40 meq GT BID [facility] Last Admin: 10/12/16 11:09 Dose: 40 meq Prednisolone Acetate (Pred Forte 1% -) 1 drop OD BID [facility] Last Admin: 10/12/16 11:09 Dose: 1 drp Ranitidine HCl (Zantac Oral Solution -) 150 mg PO BID [facility] Last Admin: 10/12/16 11:08 Dose: 150 mg - Objective Vital Signs: Vital Signs Temperature 98.1 F 10/12/16 15:37 Pulse Rate 84 10/12/16 15:37 Respiratory Rate 21 10/12/16 15:37 Blood Pressure 116/55 10/12/16 15:37 O2 Sat by Pulse Oximetry (%) 100 10/03/16 12:19 Constitutional: Yes: No Distress Cardiovascular: Yes: Regular Rate and Rhythm Respiratory: Yes: Mechanically Ventilated Gastrointestinal: Yes: Normal Bowel Sounds, Soft, Other (RUQ drain, +peg) Extremities: Yes: Other (gangrenous feet and fingers) Labs: CBC, BMP 10/02/16 06:20 10/02/16 06:20 INR, PTT INR 1.14 (0.82-1.09) 09/07/16 22:45 Fibrinogen > 700.0 mg/dL (238-498) H 07/31/16 05:40 Problem List - Problems (1) Cardiac arrest due to respiratory disorder Code(s): J98.9 - RESPIRATORY DISORDER, UNSPECIFIED I46.8 - CARDIAC ARREST DUE TO OTHER UNDERLYING CONDITION (2) Diabetes mellitus Code(s): E11.9 - TYPE 2 DIABETES MELLITUS WITHOUT COMPLICATIONS Qualifiers: Diabetes mellitus type: type 2 (3) Perforated abdominal viscus Code(s): [id number] - (4) Sepsis Code(s): A41.9 - SEPSIS, UNSPECIFIED ORGANISM (5) Pseudomonas pneumonia Code(s): J15.1 - PNEUMONIA DUE TO PSEUDOMONAS (6) Respiratory failure Code(s): J96.90 - RESPIRATORY FAILURE, UNSP, UNSP W HYPOXIA OR HYPERCAPNIA Assessment/Plan PNA/Sepsis - continue Ceftaz/Vancomycin - clinically the same continue monitor
[2016-10-12] MEDS: INSULIN DETEMIR 100 UNITS/ML MDV SQ SCH (21:56)
[2016-10-13] MEDS: morphine CARPU-JECT 4 MG/1 ML DISP.SYRIN IVPUSH PRN (00:24)
[2016-10-13] MEDS: CEFTAZIDIME PENTAHYDRATE 1 GM in DEXTROSE 5%-WATER - 50 ML IVPB SCH ×3 (02:09→18:11)
[2016-10-13] MEDS: VANCOMYCIN 1,250 MG in DEXTROSE 5%-WATER - 250 ML IVPB SCH ×2 (04:04→16:46)
[2016-10-13] MEDS: OFLOXACIN 0.3% OPHTHALMIC SOLUTION 5 ML BOTTLE OD SCH ×5 (06:14→22:56)
[2016-10-13] MEDS: INSULIN SLIDING SCALE (NOVOLOG) 1 VIAL SQ SCH ×4 (06:15→22:56)
[2016-10-13] MEDS ORDERED: INSULIN (NOVOLOG) ASPART 100 UNITS/ML 10ML VIAL ONE ×3 (06:17→17:21)
--- NOTE | 2016-10-13 08:30 | PN ---
Progress Note, Physician Chief Complaint: No complaints History of Present Illness: On respirator - Current Medication List Current Medications: Active Medications Acetaminophen (Tylenol Oral Solution -) 650 mg PO Q4H PRN PRN Reason: FEVER OR PAIN Last Admin: 10/07/16 23:11 Dose: 650 mg Clotrimazole (Lotrisone Cream (Small Tube)) 1 applic TP BID [facility] Last Admin: 10/12/16 21:57 Dose: 1 applic Collagenase (Santyl -) 1 applic TP DAILY [facility] Last Admin: 10/12/16 11:11 Dose: 1 applic Dextrose (D50w (Vial) -) 50 gm IVPUSH Q15M PRN PRN Reason: BLOOD SUGAR < 60 Enoxaparin Sodium (Lovenox -) 40 mg SQ BID [facility] Last Admin: 10/12/16 21:57 Dose: 40 mg Furosemide (Lasix -) 20 mg GT DAILY [facility] Last Admin: 10/12/16 11:10 Dose: 20 mg Ceftazidime 1 gm/ Dextrose 50 mls @ 100 mls/hr IVPB Q8H-IV [facility] PRN Reason: Protocol Last Admin: 10/13/16 02:09 Dose: 100 mls/hr Vancomycin HCl 1,250 mg/ (Dextrose) 250 mls @ 166.667 mls/hr IVPB BID@0400, 1600 [facility] PRN Reason: Protocol Last Admin: 10/13/16 04:04 Dose: 166.667 mls/hr Insulin Aspart (Novolog Vial Sliding Scale -) 1 vial SQ ACHS [facility] PRN Reason: Protocol Last Admin: 10/13/16 06:15 Dose: 12 units Insulin Detemir (Levemir Vial) 40 units SQ HS [facility] Last Admin: 10/12/16 21:56 Dose: 40 units Magnesium Oxide (Mag-Ox -) 400 mg GT BID [facility] Last Admin: 10/12/16 21:58 Dose: 400 mg Miscellaneous (Duragesic Patch Waste) 1 each TD PRN PRN PRN Reason: PAIN Last Admin: 09/26/16 15:41 Dose: 1 each Morphine Sulfate (Morphine Injection -) 2 mg IVPUSH Q4H PRN Last Admin: 10/13/16 00:24 Dose: 2 mg Ofloxacin (Ocuflox 0.3% Eye Drops -) 1 drop OD Q4HWA [facility] Last Admin: 10/13/16 06:14 Dose: 1 drop Potassium Chloride (Potassium Chloride Oral Liquid) 40 meq GT BID [facility] Last Admin: 10/12/16 21:59 Dose: 40 meq Prednisolone Acetate (Pred Forte 1% -) 1 drop OD BID [facility] Last Admin: 10/12/16 21:59 Dose: 1 drp Ranitidine HCl (Zantac Oral Solution -) 150 mg PO BID [facility] Last Admin: 10/12/16 21:59 Dose: 150 mg - Objective Vital Signs: Vital Signs Temperature 97.3 F L 10/13/16 06:00 Pulse Rate 73 10/13/16 06:00 Respiratory Rate 16 10/13/16 07:06 Blood Pressure 113/53 10/13/16 06:00 O2 Sat by Pulse Oximetry (%) 100 10/03/16 12:19 Constitutional: Yes: No Distress Eyes: Yes: WNL HENT: Yes: WNL Neck: Yes: WNL Respiratory: Yes: Mechanically Ventilated Gastrointestinal: Yes: WNL Genitourinary: Yes: Incontinence Breast(s): Yes: WNL Edema: No Wound/Incision: Yes: Clean/Dry Labs: CBC, BMP 10/02/16 06:20 10/02/16 06:20 INR, PTT INR 1.14 (0.82-1.09) 09/07/16 22:45 Fibrinogen > 700.0 mg/dL (238-498) H 07/31/16 05:40 Assessment/Plan Continue same trt
[2016-10-13] MEDS: RANITIDINE HCL 150 MG/10 ML UNIT-DOSE CUP PO SCH ×2 (10:51→22:55)
[2016-10-13] MEDS: FUROSEMIDE 20 MG TABLET (FP) GT SCH (10:51)
[2016-10-13] MEDS: MAGNESIUM OXIDE 400 MG TABLET (FP) GT SCH ×2 (10:51→22:55)
[2016-10-13] MEDS: POTASSIUM CHLORIDE ORAL LIQUID 20 MEQ/15 ML GT SCH ×2 (10:51→22:55)
[2016-10-13] MEDS: ENOXAPARIN NA (PORCINE) 40 MG/0.4 ML DISP.SYRIN SQ SCH ×2 (10:51→22:55)
[2016-10-13] MEDS: CLOTRIMAZOLE/BETAMET DIPROP 15 GM TUBE TP SCH ×2 (10:52→22:55)
[2016-10-13] MEDS: COLLAGENASE CLOSTRIDIUM HIST. 30 GRAMS TUBE TP SCH (10:52)
[2016-10-13] MEDS: prednisoLONE ACETATE 1% OPHTH SUSP 5 ML BOTTLE OD SCH ×2 (10:54→22:56)
--- NOTE | 2016-10-13 12:18 | PN ---
Progress Note, Physician History of Present Illness: pulmonary alert,on vent support ac mode ,unable to tolerate weaning today - Current Medication List Current Medications: Active Medications Acetaminophen (Tylenol Oral Solution -) 650 mg PO Q4H PRN PRN Reason: FEVER OR PAIN Last Admin: 10/07/16 23:11 Dose: 650 mg Clotrimazole (Lotrisone Cream (Small Tube)) 1 applic TP BID [facility] Last Admin: 10/13/16 10:52 Dose: 1 applic Collagenase (Santyl -) 1 applic TP DAILY [facility] Last Admin: 10/13/16 10:52 Dose: 1 applic Dextrose (D50w (Vial) -) 50 gm IVPUSH Q15M PRN PRN Reason: BLOOD SUGAR < 60 Enoxaparin Sodium (Lovenox -) 40 mg SQ BID [facility] Last Admin: 10/13/16 10:51 Dose: 40 mg Furosemide (Lasix -) 20 mg GT DAILY [facility] Last Admin: 10/13/16 10:51 Dose: 20 mg Ceftazidime 1 gm/ Dextrose 50 mls @ 100 mls/hr IVPB Q8H-IV [facility]ERY PRN Reason: Protocol Last Admin: 10/13/16 10:50 Dose: 100 mls/hr Vancomycin HCl 1,250 mg/ (Dextrose) 250 mls @ 166.667 mls/hr IVPB BID@0400, 1600 [facility]ERY PRN Reason: Protocol Last Admin: 10/13/16 04:04 Dose: 166.667 mls/hr Insulin Aspart (Novolog Vial Sliding Scale -) 1 vial SQ ACHS [facility] PRN Reason: Protocol Last Admin: 10/13/16 11:34 Dose: Not Given Insulin Detemir (Levemir Vial) 40 units SQ HS [facility] Last Admin: 10/12/16 21:56 Dose: 40 units Magnesium Oxide (Mag-Ox -) 400 mg GT BID [facility] Last Admin: 10/13/16 10:51 Dose: 400 mg Miscellaneous (Duragesic Patch Waste) 1 each TD PRN PRN PRN Reason: PAIN Last Admin: 09/26/16 15:41 Dose: 1 each Ofloxacin (Ocuflox 0.3% Eye Drops -) 1 drop OD Q4HWA [facility] Last Admin: 10/13/16 10:53 Dose: 1 drop Potassium Chloride (Potassium Chloride Oral Liquid) 40 meq GT BID [facility] Last Admin: 10/13/16 10:51 Dose: 40 meq Prednisolone Acetate (Pred Forte 1% -) 1 drop OD BID [facility] Last Admin: 10/13/16 10:54 Dose: 1 drp Ranitidine HCl (Zantac Oral Solution -) 150 mg PO BID [facility] Last Admin: 10/13/16 10:51 Dose: 150 mg - Objective Vital Signs: Vital Signs Temperature 97.3 F L 10/13/16 06:00 Pulse Rate 73 10/13/16 06:00 Respiratory Rate 20 10/13/16 10:20 Blood Pressure 113/53 10/13/16 06:00 O2 Sat by Pulse Oximetry (%) 100 10/03/16 12:19 Constitutional: Yes: Calm, Thin Eyes: Yes: WNL HENT: Yes: WNL Neck: Yes: Supple (trach) Cardiovascular: Yes: Regular Rate and Rhythm, S1, S2 Respiratory: Yes: Rhonchi (few rhonchi) Gastrointestinal: Yes: Normal Bowel Sounds, Soft Extremities: Yes: Other (gangrene eila hands and feet) Labs: Problem List - Problems (1) ZAHIRA (acute kidney injury) Code(s): N17.9 - ACUTE KIDNEY FAILURE, UNSPECIFIED (2) Acute metabolic encephalopathy Code(s): G93.41 - METABOLIC ENCEPHALOPATHY (3) Ischemia of extremity Code(s): I99.8 - OTHER DISORDER OF CIRCULATORY SYSTEM (4) Metabolic acidemia Code(s): E87.2 - ACIDOSIS (5) Perforated abdominal viscus Code(s): [id number] - (6) Sepsis Code(s): A41.9 - SEPSIS, UNSPECIFIED ORGANISM (7) Acute respiratory failure Code(s): J96.00 - ACUTE RESPIRATORY FAILURE, UNSP W HYPOXIA OR HYPERCAPNIA Assessment/Plan ASSESSMENT AND PLAN: Perforated Duodenal Ulcer Peritonitis s/p ex-lap/omental patch repair 07/16 Enterocutaneous Fistula Acute Respiratory Failure s/p Tracheostomy s/p Septic Shock DM DVT Gangrene s/p PEA Cardiac Arrest - Fio2 to keep Spo2 >90% - anticoagulation - morphine for comfort - enteral feeds as tolerated - DVT/GI prophylaxis - antibiotics - recommend palliative due to failure to wean, anticipated amputations, poor quality of life DR OSEI
--- NOTE | 2016-10-13 13:04 | PN ---
Progress Note, Physician History of Present Illness: continues to have secretions in the room no change in status - Current Medication List Current Medications: Active Medications Acetaminophen (Tylenol Oral Solution -) 650 mg PO Q4H PRN PRN Reason: FEVER OR PAIN Last Admin: 10/07/16 23:11 Dose: 650 mg Clotrimazole (Lotrisone Cream (Small Tube)) 1 applic TP BID [facility] Last Admin: 10/13/16 10:52 Dose: 1 applic Collagenase (Santyl -) 1 applic TP DAILY [facility] Last Admin: 10/13/16 10:52 Dose: 1 applic Dextrose (D50w (Vial) -) 50 gm IVPUSH Q15M PRN PRN Reason: BLOOD SUGAR < 60 Enoxaparin Sodium (Lovenox -) 40 mg SQ BID [facility] Last Admin: 10/13/16 10:51 Dose: 40 mg Furosemide (Lasix -) 20 mg GT DAILY [facility] Last Admin: 10/13/16 10:51 Dose: 20 mg Ceftazidime 1 gm/ Dextrose 50 mls @ 100 mls/hr IVPB Q8H-IV [facility] PRN Reason: Protocol Last Admin: 10/13/16 10:50 Dose: 100 mls/hr Vancomycin HCl 1,250 mg/ (Dextrose) 250 mls @ 166.667 mls/hr IVPB BID@0400, 1600 AVERY PRN Reason: Protocol Last Admin: 10/13/16 04:04 Dose: 166.667 mls/hr Insulin Aspart (Novolog Vial Sliding Scale -) 1 vial SQ ACHS [facility] PRN Reason: Protocol Last Admin: 10/13/16 11:34 Dose: Not Given Insulin Detemir (Levemir Vial) 40 units SQ HS [facility] Last Admin: 10/12/16 21:56 Dose: 40 units Magnesium Oxide (Mag-Ox -) 400 mg GT BID [facility] Last Admin: 10/13/16 10:51 Dose: 400 mg Miscellaneous (Duragesic Patch Waste) 1 each TD PRN PRN PRN Reason: PAIN Last Admin: 09/26/16 15:41 Dose: 1 each Ofloxacin (Ocuflox 0.3% Eye Drops -) 1 drop OD Q4HWA [facility] Last Admin: 10/13/16 10:53 Dose: 1 drop Potassium Chloride (Potassium Chloride Oral Liquid) 40 meq GT BID [facility] Last Admin: 10/13/16 10:51 Dose: 40 meq Prednisolone Acetate (Pred Forte 1% -) 1 drop OD BID [facility] Last Admin: 10/13/16 10:54 Dose: 1 drp Ranitidine HCl (Zantac Oral Solution -) 150 mg PO BID [facility] Last Admin: 10/13/16 10:51 Dose: 150 mg - Objective Vital Signs: Vital Signs Temperature 98.4 F 10/13/16 10:00 Pulse Rate 78 10/13/16 10:00 Respiratory Rate 20 10/13/16 10:20 Blood Pressure 110/60 10/13/16 10:00 O2 Sat by Pulse Oximetry (%) 100 10/03/16 12:19 Constitutional: Yes: No Distress, Calm Neck: Yes: Other Cardiovascular: Yes: Regular Rate and Rhythm Respiratory: Yes: Mechanically Ventilated, Other (secretions) Gastrointestinal: Yes: Normal Bowel Sounds, Soft, Other (peg in place) Musculoskeletal: Yes: Other Extremities: Yes: Other (mummification of the feet and hands) Neurological: Yes: Alert Psychiatric: Yes: Alert Labs: CBC, BMP 10/02/16 06:20 10/02/16 06:20 INR, PTT INR 1.14 (0.82-1.09) 09/07/16 22:45 Fibrinogen > 700.0 mg/dL (238-498) H 07/31/16 05:40 Assessment/Plan Problem List - Problems (1) Abdominal pain Code(s): R10.9 - UNSPECIFIED ABDOMINAL PAIN Qualifiers: Qualified Code(s): R10.33 - Periumbilical pain (2) Perforated abdominal viscus Code(s): [id number] - (3) Perforated viscus Code(s): R19.8 - OTH SYMPTOMS AND SIGNS INVOLVING THE DGSTV SYS AND ABDOMEN (4) Hypertension Code(s): I10 - ESSENTIAL (PRIMARY) HYPERTENSION Qualifiers: Qualified Code(s): I10 - Essential (primary) hypertension lactic acidosis fevers generalized swelling gangrene of the tip of the fingers noted pseudomonas pneumonia plan continue current mgmt nutrition continue abx continue suctioning d/w the
[2016-10-13] MEDS ORDERED: PT OWN MED DRAWER 7, Y5N ONE (16:45)
[2016-10-13] MEDS: INSULIN DETEMIR 100 UNITS/ML MDV SQ SCH (22:55)
[2016-10-14] MEDS: CEFTAZIDIME PENTAHYDRATE 1 GM in DEXTROSE 5%-WATER - 50 ML IVPB SCH ×3 (02:39→18:25)
[2016-10-14] MEDS: VANCOMYCIN 1,250 MG in DEXTROSE 5%-WATER - 250 ML IVPB SCH ×2 (03:14→16:45)
[2016-10-14] MEDS: OFLOXACIN 0.3% OPHTHALMIC SOLUTION 5 ML BOTTLE OD SCH ×5 (06:48→21:18)
[2016-10-14] MEDS: INSULIN SLIDING SCALE (NOVOLOG) 1 VIAL SQ SCH ×4 (07:02→21:22)
[2016-10-14] MEDS ORDERED: PT OWN MED DRAWER 7, Y5N ONE ×5 (11:00→20:29)
[2016-10-14] MEDS: POTASSIUM CHLORIDE ORAL LIQUID 20 MEQ/15 ML GT SCH ×2 (11:06→21:16)
[2016-10-14] MEDS: MAGNESIUM OXIDE 400 MG TABLET (FP) GT SCH ×2 (11:06→21:18)
[2016-10-14] MEDS: ENOXAPARIN NA (PORCINE) 40 MG/0.4 ML DISP.SYRIN SQ SCH ×2 (11:06→21:16)
[2016-10-14] MEDS: FUROSEMIDE 20 MG TABLET (FP) GT SCH (11:06)
[2016-10-14] MEDS: RANITIDINE HCL 150 MG/10 ML UNIT-DOSE CUP PO SCH ×2 (11:06→21:16)
[2016-10-14] MEDS: CLOTRIMAZOLE/BETAMET DIPROP 15 GM TUBE TP SCH ×2 (11:08→21:16)
[2016-10-14] MEDS: COLLAGENASE CLOSTRIDIUM HIST. 30 GRAMS TUBE TP SCH (11:09)
[2016-10-14] MEDS: prednisoLONE ACETATE 1% OPHTH SUSP 5 ML BOTTLE OD SCH ×2 (11:10→21:18)
--- NOTE | 2016-10-14 12:02 | PN ---
Progress Note, Physician Chief Complaint: Remained at her base line , , low grade fever , opens eye to verbal command, on Vent Saturating well, no extremities movement s/p PEA cardiac arrest reviewed now on Vent. remained afebrile. History of Present Illness: 65-year-old F H/O hypertension, hypercholesterolemia, T2DM, ETOH abuse, admitted with perforated duodenal ulcer with sepsis, prolonged complicated course with respiratory failure s/p incubation, tracheostomy on vent dependent and PEG - Current Medication List Current Medications: Active Medications Acetaminophen (Tylenol Oral Solution -) 650 mg PO Q4H PRN PRN Reason: FEVER OR PAIN Last Admin: 10/07/16 23:11 Dose: 650 mg Clotrimazole (Lotrisone Cream (Small Tube)) [address] [facility] Last Admin: 10/14/16 11:08 Dose: 1 applic Collagenase (Santyl -) [address] [facility] Last Admin: 10/14/16 11:09 Dose: 1 applic Dextrose (D50w (Vial) -) 50 gm IVPUSH Q15M PRN PRN Reason: BLOOD SUGAR < 60 Enoxaparin Sodium (Lovenox -) [address] [facility] Last Admin: 10/14/16 11:06 Dose: 40 mg Furosemide (Lasix -) [address] [facility] Last Admin: 10/14/16 11:06 Dose: 20 mg Ceftazidime 1 gm/ Dextrose 50 mls @ 100 mls/hr IVPB Q8H-IV [facility] PRN Reason: Protocol Last Admin: 10/14/16 11:07 Dose: 100 mls/hr Vancomycin HCl 1,250 mg/ (Dextrose) 250 mls @ 166.667 mls/hr IVPB BID@0400, 1600 [facility]ERY PRN Reason: Protocol Last Admin: 10/14/16 03:14 Dose: 166.667 mls/hr Insulin Aspart (Novolog Vial Sliding Scale -) 1 vial SQ ACHS [facility] PRN Reason: Protocol Last Admin: 10/14/16 07:02 Dose: 8 units Insulin Detemir (Levemir Vial) [address] [facility] Last Admin: 10/13/16 22:55 Dose: 40 units Magnesium Oxide (Mag-Ox -) [address] [facility] Last Admin: 10/14/16 11:06 Dose: 400 mg Miscellaneous (Duragesic Patch Waste) 1 each TD PRN PRN PRN Reason: PAIN Last Admin: 09/26/16 15:41 Dose: 1 each Ofloxacin (Ocuflox 0.3% Eye Drops -) [address] [facility] Last Admin: 10/14/16 11:11 Dose: 1 drop Potassium Chloride (Potassium Chloride Oral Liquid) [address] [facility] Last Admin: 10/14/16 11:06 Dose: 40 meq Prednisolone Acetate (Pred Forte 1% -) [address] [facility] Last Admin: 10/14/16 11:10 Dose: 1 drp Ranitidine HCl (Zantac Oral Solution -) [address] [facility] Last Admin: 10/14/16 11:06 Dose: 150 mg - Objective Vital Signs: Vital Signs Temperature 98 F 10/14/16 07:19 Pulse Rate 898 H 10/14/16 07:19 Respiratory Rate 21 10/14/16 10:25 Blood Pressure 109/50 10/14/16 07:19 O2 Sat by Pulse Oximetry (%) 100 10/03/16 12:19 Patient remained altered minimally responsive, on Vent HEENT: Trach at the place, need intermittent Vent support, mm most, anemia NECK; No JVD No Bruit CHEST: Good AE minimal crests ABD; S/P PEG tube, minimal discharge from wound, colostomy at place BS + EXT; extensive edema, skin peeling and gangrene of distal extremities 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 DERM; gradually healing extensive skin peeling and gangrene of fingers and toes Labs: Problem List - Problems (1) Perforated abdominal viscus Assessment/Plan: Patient was presented with Rt UQ pain and with free air, Duodenal ulcer perforation s/p surgery. now fistula formation draining exudates.fistula still has discharge evaluate by surgery. and GI consult, patient has colostomy bag at place. (2) Acute metabolic encephalopathy Assessment/Plan: Secondary to hypoperfusion due to septic shock, at present no significant improvement , most likely hypoxic encephalopathy. Code(s): G93.41 - METABOLIC ENCEPHALOPATHY (3) Ischemia of extremity Assessment/Plan: Ischemia off all extremities due to prolonged vasopressor use, patient needed pressure to maintain BP, now off pressors, cont wound care, healing slowly. Code(s): I99.8 - OTHER DISORDER OF CIRCULATORY SYSTEM (4) Sepsis Assessment/Plan: Due to perforated gastric now off pressors, on I V fluconazole and Zosyn F/U cultures.Prognosis is guarded. TWBC normal. Code(s): A41.9 - SEPSIS, UNSPECIFIED ORGANISM (5) Severe malnutrition Assessment/Plan: S/P PG tolerating feeding remove NG tube, Nutrition consult.. Code(s): E43 - UNSPECIFIED SEVERE PROTEIN-CALORIE MALNUTRITION (6) Diabetes mellitus Assessment/Plan: Optimize Glycemic control cont accu checks Code(s): E11.9 - TYPE 2 DIABETES MELLITUS WITHOUT COMPLICATIONS Qualifiers: Diabetes mellitus type: type 2
--- NOTE | 2016-10-14 13:46 | PN ---
Progress Note, Physician History of Present Illness: pulmonary awake on vent support ac mode - Current Medication List Current Medications: Active Medications Acetaminophen (Tylenol Oral Solution -) 650 mg PO Q4H PRN PRN Reason: FEVER OR PAIN Last Admin: 10/07/16 23:11 Dose: 650 mg Clotrimazole (Lotrisone Cream (Small Tube)) 1 applic TP BID [facility] Last Admin: 10/14/16 11:08 Dose: 1 applic Collagenase (Santyl -) 1 applic TP DAILY [facility] Last Admin: 10/14/16 11:09 Dose: 1 applic Dextrose (D50w (Vial) -) 50 gm IVPUSH Q15M PRN PRN Reason: BLOOD SUGAR < 60 Enoxaparin Sodium (Lovenox -) 40 mg SQ BID [facility] Last Admin: 10/14/16 11:06 Dose: 40 mg Furosemide (Lasix -) 20 mg GT DAILY [facility] Last Admin: 10/14/16 11:06 Dose: 20 mg Ceftazidime 1 gm/ Dextrose 50 mls @ 100 mls/hr IVPB Q8H-IV [facility] PRN Reason: Protocol Last Admin: 10/14/16 11:07 Dose: 100 mls/hr Vancomycin HCl 1,250 mg/ (Dextrose) 250 mls @ 166.667 mls/hr IVPB BID@0400, 1600 [facility]ERY PRN Reason: Protocol Last Admin: 10/14/16 03:14 Dose: 166.667 mls/hr Insulin Aspart (Novolog Vial Sliding Scale -) 1 vial SQ ACHS [facility] PRN Reason: Protocol Last Admin: 10/14/16 12:38 Dose: 4 units Insulin Detemir (Levemir Vial) 40 units SQ HS [facility] Last Admin: 10/13/16 22:55 Dose: 40 units Magnesium Oxide (Mag-Ox -) 400 mg GT BID [facility] Last Admin: 10/14/16 11:06 Dose: 400 mg Miscellaneous (Duragesic Patch Waste) 1 each TD PRN PRN PRN Reason: PAIN Last Admin: 09/26/16 15:41 Dose: 1 each Ofloxacin (Ocuflox 0.3% Eye Drops -) 1 drop OD Q4HWA [facility] Last Admin: 10/14/16 11:11 Dose: 1 drop Potassium Chloride (Potassium Chloride Oral Liquid) 40 meq GT BID [facility] Last Admin: 10/14/16 11:06 Dose: 40 meq Prednisolone Acetate (Pred Forte 1% -) 1 drop OD BID [facility] Last Admin: 10/14/16 11:10 Dose: 1 drp Ranitidine HCl (Zantac Oral Solution -) 150 mg PO BID [facility] Last Admin: 10/14/16 11:06 Dose: 150 mg - Objective Vital Signs: Vital Signs Temperature 97.4 F L 10/14/16 09:00 Pulse Rate 86 10/14/16 09:00 Respiratory Rate 21 10/14/16 10:25 Blood Pressure 125/85 10/14/16 09:00 O2 Sat by Pulse Oximetry (%) 100 10/03/16 12:19 Constitutional: Yes: Calm, Thin Eyes: Yes: WNL HENT: Yes: WNL Neck: Yes: Supple (trach) Cardiovascular: Yes: Regular Rate and Rhythm, S1, S2 Respiratory: Yes: Rhonchi (few rhonchi) Gastrointestinal: Yes: Normal Bowel Sounds, Soft Extremities: Yes: Other (bilateral gangrene hand and feet) Labs: CBC, BMP Problem List - Problems (1) ZAHIRA (acute kidney injury) Code(s): N17.9 - ACUTE KIDNEY FAILURE, UNSPECIFIED (2) Acute metabolic encephalopathy Code(s): G93.41 - METABOLIC ENCEPHALOPATHY (3) Ischemia of extremity Code(s): I99.8 - OTHER DISORDER OF CIRCULATORY SYSTEM (4) Metabolic acidemia Code(s): E87.2 - ACIDOSIS (5) Perforated abdominal viscus Code(s): [id number] - (6) Sepsis Code(s): A41.9 - SEPSIS, UNSPECIFIED ORGANISM (7) Acute respiratory failure Code(s): J96.00 - ACUTE RESPIRATORY FAILURE, UNSP W HYPOXIA OR HYPERCAPNIA Assessment/Plan ASSESSMENT AND PLAN: Perforated Duodenal Ulcer Peritonitis s/p ex-lap/omental patch repair 07/16 Enterocutaneous Fistula Acute Respiratory Failure s/p Tracheostomy s/p Septic Shock DM DVT Gangrene s/p PEA Cardiac Arrest - Fio2 to keep Spo2 >90% - anticoagulation - morphine for comfort - enteral feeds as tolerated - DVT/GI prophylaxis - antibiotics as per ID - recommend palliative due to failure to wean, anticipated amputations, poor quality of life DR OSEI
--- NOTE | 2016-10-14 15:17 | PN ---
Progress Note, Physician History of Present Illness: awake on vent secretions improving - Current Medication List Current Medications: Active Medications Acetaminophen (Tylenol Oral Solution -) 650 mg PO Q4H PRN PRN Reason: FEVER OR PAIN Last Admin: 10/07/16 23:11 Dose: 650 mg Clotrimazole (Lotrisone Cream (Small Tube)) 1 applic TP BID [facility] Last Admin: 10/14/16 11:08 Dose: 1 applic Collagenase (Santyl -) 1 applic TP DAILY [facility] Last Admin: 10/14/16 11:09 Dose: 1 applic Dextrose (D50w (Vial) -) 50 gm IVPUSH Q15M PRN PRN Reason: BLOOD SUGAR < 60 Enoxaparin Sodium (Lovenox -) 40 mg SQ BID [facility] Last Admin: 10/14/16 11:06 Dose: 40 mg Furosemide (Lasix -) 20 mg GT DAILY [facility] Last Admin: 10/14/16 11:06 Dose: 20 mg Ceftazidime 1 gm/ Dextrose 50 mls @ 100 mls/hr IVPB Q8H-IV [facility] PRN Reason: Protocol Last Admin: 10/14/16 11:07 Dose: 100 mls/hr Vancomycin HCl 1,250 mg/ (Dextrose) 250 mls @ 166.667 mls/hr IVPB BID@0400, 1600 AVERY PRN Reason: Protocol Last Admin: 10/14/16 03:14 Dose: 166.667 mls/hr Insulin Aspart (Novolog Vial Sliding Scale -) 1 vial SQ ACHS [facility] PRN Reason: Protocol Last Admin: 10/14/16 12:38 Dose: 4 units Insulin Detemir (Levemir Vial) 40 units SQ HS [facility] Last Admin: 10/13/16 22:55 Dose: 40 units Magnesium Oxide (Mag-Ox -) 400 mg GT BID [facility] Last Admin: 10/14/16 11:06 Dose: 400 mg Miscellaneous (Duragesic Patch Waste) 1 each TD PRN PRN PRN Reason: PAIN Last Admin: 09/26/16 15:41 Dose: 1 each Ofloxacin (Ocuflox 0.3% Eye Drops -) 1 drop OD Q4HWA [facility] Last Admin: 10/14/16 14:24 Dose: 1 drop Potassium Chloride (Potassium Chloride Oral Liquid) 40 meq GT BID [facility] Last Admin: 10/14/16 11:06 Dose: 40 meq Prednisolone Acetate (Pred Forte 1% -) 1 drop OD BID [facility] Last Admin: 10/14/16 11:10 Dose: 1 drp Ranitidine HCl (Zantac Oral Solution -) 150 mg PO BID [facility] Last Admin: 10/14/16 11:06 Dose: 150 mg - Objective Vital Signs: Vital Signs Temperature 97.4 F L 10/14/16 09:00 Pulse Rate 86 10/14/16 09:00 Respiratory Rate 15 10/14/16 14:10 Blood Pressure 125/85 10/14/16 09:00 O2 Sat by Pulse Oximetry (%) 100 10/03/16 12:19 Constitutional: Yes: No Distress, Calm Neck: Yes: Other Cardiovascular: Yes: Regular Rate and Rhythm Respiratory: Yes: Mechanically Ventilated, Other (trachestomy) Gastrointestinal: Yes: Normal Bowel Sounds, Soft, Other (peg in place) Musculoskeletal: Yes: Other Extremities: Yes: Other Neurological: Yes: Alert, Oriented Psychiatric: Yes: Alert Labs: CBC, BMP 10/02/16 06:20 10/02/16 06:20 INR, PTT INR 1.14 (0.82-1.09) 09/07/16 22:45 Fibrinogen > 700.0 mg/dL (238-498) H 07/31/16 05:40 Assessment/Plan Problem List - Problems (1) Abdominal pain Code(s): R10.9 - UNSPECIFIED ABDOMINAL PAIN Qualifiers: Qualified Code(s): R10.33 - Periumbilical pain (2) Perforated abdominal viscus Code(s): [id number] - (3) Perforated viscus Code(s): R19.8 - OTH SYMPTOMS AND SIGNS INVOLVING THE DGSTV SYS AND ABDOMEN (4) Hypertension Code(s): I10 - ESSENTIAL (PRIMARY) HYPERTENSION Qualifiers: Qualified Code(s): I10 - Essential (primary) hypertension lactic acidosis fevers generalized swelling gangrene of the tip of the fingers noted pseudomonas pneumonia plan continue current mgmt nutrition continue abx continue suctioning await for final plan
[2016-10-14] MEDS ORDERED: INSULIN (NOVOLOG) ASPART 100 UNITS/ML 10ML VIAL ONE (16:40)
[2016-10-14] MEDS: INSULIN DETEMIR 100 UNITS/ML MDV SQ SCH (21:17)
[2016-10-15] MEDS: CEFTAZIDIME PENTAHYDRATE 1 GM in DEXTROSE 5%-WATER - 50 ML IVPB SCH ×3 (02:00→18:33)
[2016-10-15] MEDS: VANCOMYCIN 1,250 MG in DEXTROSE 5%-WATER - 250 ML IVPB SCH ×2 (03:07→22:23)
[2016-10-15] MEDS: OFLOXACIN 0.3% OPHTHALMIC SOLUTION 5 ML BOTTLE OD SCH ×5 (06:06→22:30)
[2016-10-15] MEDS: INSULIN SLIDING SCALE (NOVOLOG) 1 VIAL SQ SCH ×4 (06:06→22:49)
[2016-10-15 07:53] LABS: BASOPHIL 0.9 % (0-2.0); EOSINOPHIL 2.2 % (0-4.5); MCH 28.8 pg (25.7-33.7); MCHC 32.5 g/dl (32.0-36.0); MEAN CELL VOLUME 88.7 fl (80-96); MEAN PLT VOLUME 7.7 fl (7.5-11.1); NEUTROPHILS 52.6 % (42.8-82.8); PLATELET COUNT 424 K/MM3 (134-434); RDW 17.6 % (11.6-15.6); WHITE BLOOD COUNT 7.7 K/mm3 (4.0-10.0)
[2016-10-15 08:26] LABS: ALBUMIN 2.3 g/dl (3.4-5.0); ANION GAP 10 (8-16); CALCIUM 10.1 mg/dL (8.5-10.1); CO2 30 mmol/L (21-32); CREATININE 0.3 mg/dL (0.55-1.02); GLUCOSE,RANDOM 174 mg/dL (74-106); SGOT/AST 11 U/L (15-37); SGPT/ALT 15 U/L (12-78)
[2016-10-15 08:28] LABS: ALK PHOS 85 U/L (45-117); BILIRUBIN,TOTAL 0.3 mg/dL (0.2-1.0); TOT PROT 6.2 g/dl (6.4-8.2)
[2016-10-15] MEDS ORDERED: PT OWN MED DRAWER 7, Y5N ONE ×4 (10:55→18:18)
[2016-10-15] MEDS: FUROSEMIDE 20 MG TABLET (FP) GT SCH (10:56)
[2016-10-15] MEDS: MAGNESIUM OXIDE 400 MG TABLET (FP) GT SCH ×2 (10:56→22:34)
[2016-10-15] MEDS: RANITIDINE HCL 150 MG/10 ML UNIT-DOSE CUP PO SCH ×2 (10:56→22:28)
[2016-10-15] MEDS: POTASSIUM CHLORIDE ORAL LIQUID 20 MEQ/15 ML GT SCH ×2 (10:57→22:28)
[2016-10-15] MEDS: ENOXAPARIN NA (PORCINE) 40 MG/0.4 ML DISP.SYRIN SQ SCH ×2 (10:58→22:33)
[2016-10-15] MEDS: prednisoLONE ACETATE 1% OPHTH SUSP 5 ML BOTTLE OD SCH ×2 (11:14→22:28)
[2016-10-15] MEDS: CLOTRIMAZOLE/BETAMET DIPROP 15 GM TUBE TP SCH ×2 (11:14→22:31)
[2016-10-15] MEDS: COLLAGENASE CLOSTRIDIUM HIST. 30 GRAMS TUBE TP SCH (11:15)
--- NOTE | 2016-10-15 12:30 | PN ---
Progress Note, Physician Chief Complaint: Remained at her base line , , low grade fever , opens eye to verbal command, on Vent Saturating well. FS are better controlled, no extremities movement s/p PEA cardiac arrest reviewed now on Vent. remained afebrile. History of Present Illness: 65-year-old F H/O hypertension, hypercholesterolemia, T2DM, ETOH abuse, admitted with perforated duodenal ulcer with sepsis, prolonged complicated course with respiratory failure s/p incubation, tracheostomy on vent dependent and PEG - Current Medication List Current Medications: Active Medications Acetaminophen (Tylenol Oral Solution -) 650 mg PO Q4H PRN PRN Reason: FEVER OR PAIN Last Admin: 10/07/16 23:11 Dose: 650 mg Clotrimazole (Lotrisone Cream (Small Tube)) 1 applic TP BID [facility] Last Admin: 10/15/16 11:14 Dose: 1 applic Collagenase (Santyl -) 1 applic TP DAILY [facility] Last Admin: 10/15/16 11:15 Dose: Not Given Dextrose (D50w (Vial) -) 50 gm IVPUSH Q15M PRN PRN Reason: BLOOD SUGAR < 60 Enoxaparin Sodium (Lovenox -) 40 mg SQ BID [facility] Last Admin: 10/15/16 10:58 Dose: 40 mg Furosemide (Lasix -) 20 mg GT DAILY [facility] Last Admin: 10/15/16 10:56 Dose: 20 mg Ceftazidime 1 gm/ Dextrose 50 mls @ 100 mls/hr IVPB Q8H-IV [facility] PRN Reason: Protocol Last Admin: 10/15/16 10:58 Dose: 100 mls/hr Vancomycin HCl 1,250 mg/ (Dextrose) 250 mls @ 166.667 mls/hr IVPB BID@0400, 1600 [facility]ERY PRN Reason: Protocol Last Admin: 10/15/16 03:07 Dose: 166.667 mls/hr Insulin Aspart (Novolog Vial Sliding Scale -) 1 vial SQ ACHS [facility] PRN Reason: Protocol Last Admin: 10/15/16 12:03 Dose: Not Given Insulin Detemir (Levemir Vial) 40 units SQ HS [facility] Last Admin: 10/14/16 21:17 Dose: 40 units Magnesium Oxide (Mag-Ox -) 400 mg GT BID [facility] Last Admin: 10/15/16 10:56 Dose: 400 mg Miscellaneous (Duragesic Patch Waste) 1 each TD PRN PRN PRN Reason: PAIN Last Admin: 09/26/16 15:41 Dose: 1 each Ofloxacin (Ocuflox 0.3% Eye Drops -) 1 drop OD Q4HWA [facility] Last Admin: 10/15/16 11:14 Dose: 1 drop Potassium Chloride (Potassium Chloride Oral Liquid) 40 meq GT BID [facility] Last Admin: 10/15/16 10:57 Dose: 40 meq Prednisolone Acetate (Pred Forte 1% -) 1 drop OD BID [facility] Last Admin: 10/15/16 11:14 Dose: 1 drp Ranitidine HCl (Zantac Oral Solution -) 150 mg PO BID [facility] Last Admin: 10/15/16 10:56 Dose: 150 mg - Objective Vital Signs: Vital Signs Temperature 98.0 F 10/15/16 10:00 Pulse Rate 78 10/15/16 10:00 Respiratory Rate 17 10/15/16 10:00 Blood Pressure 121/63 10/15/16 10:00 O2 Sat by Pulse Oximetry (%) 100 10/03/16 12:19 atient remained altered minimally responsive, on Vent HEENT: Trach at the place, need intermittent Vent support, mm most, anemia NECK; No JVD No Bruit CHEST: Good AE minimal crests ABD; S/P PEG tube, minimal discharge from wound, colostomy at place BS + EXT; extensive edema, skin peeling and gangrene of distal 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 DERM; gradually healing extensive skin peeling and gangrene of fingers and toes Labs: CBC, BMP 10/15/16 07:00 10/15/16 07:00 INR, PTT INR 1.14 (0.82-1.09) 09/07/16 22:45 Fibrinogen > 700.0 mg/dL (238-498) H 07/31/16 05:40 Problem List - Problems (1) Perforated abdominal viscus Assessment/Plan: Patient was presented with Rt UQ pain and with free air, Duodenal ulcer perforation s/p surgery. now fistula formation draining exudates.fistula still has discharge evaluate by surgery. and GI consult, patient has colostomy bag at place.. (2) Acute metabolic encephalopathy Assessment/Plan: Secondary to hypoperfusion due to septic shock, at present no significant improvement , most likely hypoxic encephalopathy. Code(s): G93.41 - METABOLIC ENCEPHALOPATHY (3) Ischemia of extremity Assessment/Plan: Ischemia off all extremities due to prolonged vasopressor use, patient needed pressure to maintain BP, now off pressors wound care healing slowly. Code(s): I99.8 - OTHER DISORDER OF CIRCULATORY SYSTEM (4) Sepsis Assessment/Plan: Due to perforated gastric now off pressors, on Vancomycin and Ceftizidime F/U cultures. TWBC normal. Code(s): A41.9 - SEPSIS, UNSPECIFIED ORGANISM (5) Severe malnutrition Assessment/Plan: S/P PG tolerating feeding remove NG tube, Nutrition consult.. Code(s): E43 - UNSPECIFIED SEVERE PROTEIN-CALORIE MALNUTRITION (6) Diabetes mellitus Assessment/Plan: Better controlled add basal insulin Levimir 40 units and correction dose insulin. Code(s): E11.9 - TYPE 2 DIABETES MELLITUS WITHOUT COMPLICATIONS Qualifiers: Diabetes mellitus type: type 2
--- NOTE | 2016-10-15 12:54 | PN ---
Progress Note, Physician History of Present Illness: pulmonary awake,on vent support ,tolerated IMV earlier - Current Medication List Current Medications: Active Medications Acetaminophen (Tylenol Oral Solution -) 650 mg PO Q4H PRN PRN Reason: FEVER OR PAIN Last Admin: 10/07/16 23:11 Dose: 650 mg Clotrimazole (Lotrisone Cream (Small Tube)) 1 applic TP BID [facility] Last Admin: 10/15/16 11:14 Dose: 1 applic Collagenase (Santyl -) 1 applic TP DAILY [facility] Last Admin: 10/15/16 11:15 Dose: Not Given Dextrose (D50w (Vial) -) 50 gm IVPUSH Q15M PRN PRN Reason: BLOOD SUGAR < 60 Enoxaparin Sodium (Lovenox -) 40 mg SQ BID [facility] Last Admin: 10/15/16 10:58 Dose: 40 mg Furosemide (Lasix -) 20 mg GT DAILY [facility] Last Admin: 10/15/16 10:56 Dose: 20 mg Ceftazidime 1 gm/ Dextrose 50 mls @ 100 mls/hr IVPB Q8H-IV [facility] PRN Reason: Protocol Last Admin: 10/15/16 10:58 Dose: 100 mls/hr Vancomycin HCl 1,250 mg/ (Dextrose) 250 mls @ 166.667 mls/hr IVPB BID@0400, 1600 [facility] PRN Reason: Protocol Last Admin: 10/15/16 03:07 Dose: 166.667 mls/hr Insulin Aspart (Novolog Vial Sliding Scale -) 1 vial SQ ACHS [facility] PRN Reason: Protocol Last Admin: 10/15/16 12:03 Dose: Not Given Insulin Detemir (Levemir Vial) 40 units SQ HS [facility] Last Admin: 10/14/16 21:17 Dose: 40 units Magnesium Oxide (Mag-Ox -) 400 mg GT BID [facility] Last Admin: 10/15/16 10:56 Dose: 400 mg Miscellaneous (Duragesic Patch Waste) 1 each TD PRN PRN PRN Reason: PAIN Last Admin: 09/26/16 15:41 Dose: 1 each Ofloxacin (Ocuflox 0.3% Eye Drops -) 1 drop OD Q4HWA [facility] Last Admin: 10/15/16 11:14 Dose: 1 drop Potassium Chloride (Potassium Chloride Oral Liquid) 40 meq GT BID [facility] Last Admin: 10/15/16 10:57 Dose: 40 meq Prednisolone Acetate (Pred Forte 1% -) 1 drop OD BID [facility] Last Admin: 10/15/16 11:14 Dose: 1 drp Ranitidine HCl (Zantac Oral Solution -) 150 mg PO BID [facility] Last Admin: 10/15/16 10:56 Dose: 150 mg - Objective Vital Signs: Vital Signs Temperature 98.0 F 10/15/16 10:00 Pulse Rate 78 10/15/16 10:00 Respiratory Rate 10/15/16 10:00 Blood Pressure 121/63 10/15/16 10:00 O2 Sat by Pulse Oximetry (%) 100 10/03/16 12:19 Constitutional: Yes: Calm, Thin Eyes: Yes: WNL HENT: Yes: WNL Neck: Yes: Supple (TRACH) Cardiovascular: Yes: Regular Rate and Rhythm, S1, S2 Respiratory: Yes: Rhonchi (FEW RHONCHI) Gastrointestinal: Yes: Normal Bowel Sounds, Soft Extremities: Yes: Other (BILATERAL GANGRENE FEET AND HANDS) Edema: No Labs: CBC, BMP 10/15/16 07:00 10/15/16 07:00 INR, PTT INR 1.14 (0.82-1.09) 09/07/16 22:45 Fibrinogen > 700.0 mg/dL (238-498) H 07/31/16 05:40 Problem List - Problems (1) ZAHIRA (acute kidney injury) Code(s): N17.9 - ACUTE KIDNEY FAILURE, UNSPECIFIED (2) Acute metabolic encephalopathy Code(s): G93.41 - METABOLIC ENCEPHALOPATHY (3) Ischemia of extremity Code(s): I99.8 - OTHER DISORDER OF CIRCULATORY SYSTEM (4) Metabolic acidemia Code(s): E87.2 - ACIDOSIS (5) Perforated abdominal viscus Code(s): NAS6856 - (6) Sepsis Code(s): A41.9 - SEPSIS, UNSPECIFIED ORGANISM (7) Acute respiratory failure Code(s): J96.00 - ACUTE RESPIRATORY FAILURE, UNSP W HYPOXIA OR HYPERCAPNIA Assessment/Plan ASSESSMENT AND PLAN: Perforated Duodenal Ulcer Peritonitis s/p ex-lap/omental patch repair 07/16 Enterocutaneous Fistula Acute Respiratory Failure s/p Tracheostomy s/p Septic Shock DM DVT Gangrene s/p PEA Cardiac Arrest - Fio2 to keep Spo2 >90% - anticoagulation - morphine for comfort - enteral feeds as tolerated - DVT/GI prophylaxis - IMV as tolerated alt with AC - antibiotics as per ID - recommend palliative due to failure to wean, anticipated amputations, poor quality of life DR OSEI
--- NOTE | 2016-10-15 16:14 | PN ---
Progress Note, Physician History of Present Illness: awake on vent secretions improving patient has remained afebrile - Current Medication List Current Medications: Active Medications Acetaminophen (Tylenol Oral Solution -) 650 mg PO Q4H PRN PRN Reason: FEVER OR PAIN Last Admin: 10/07/16 23:11 Dose: 650 mg Clotrimazole (Lotrisone Cream (Small Tube)) 1 applic TP BID [facility] Last Admin: 10/15/16 11:14 Dose: 1 applic Collagenase (Santyl -) 1 applic TP DAILY [facility] Last Admin: 10/15/16 11:15 Dose: Not Given Dextrose (D50w (Vial) -) 50 gm IVPUSH Q15M PRN PRN Reason: BLOOD SUGAR < 60 Enoxaparin Sodium (Lovenox -) 40 mg SQ BID [facility] Last Admin: 10/15/16 10:58 Dose: 40 mg Furosemide (Lasix -) 20 mg GT DAILY [facility] Last Admin: 10/15/16 10:56 Dose: 20 mg Ceftazidime 1 gm/ Dextrose 50 mls @ 100 mls/hr IVPB Q8H-IV [facility] PRN Reason: Protocol Last Admin: 10/15/16 10:58 Dose: 100 mls/hr Vancomycin HCl 1,250 mg/ (Dextrose) 250 mls @ 166.667 mls/hr IVPB BID@0400, 1600 [facility] PRN Reason: Protocol Last Admin: 10/15/16 03:07 Dose: 166.667 mls/hr Insulin Aspart (Novolog Vial Sliding Scale -) 1 vial SQ ACHS [facility] PRN Reason: Protocol Last Admin: 10/15/16 12:03 Dose: Not Given Insulin Detemir (Levemir Vial) 40 units SQ HS [facility] Last Admin: 10/14/16 21:17 Dose: 40 units Magnesium Oxide (Mag-Ox -) 400 mg GT BID [facility] Last Admin: 10/15/16 10:56 Dose: 400 mg Miscellaneous (Duragesic Patch Waste) 1 each TD PRN PRN PRN Reason: PAIN Last Admin: 09/26/16 15:41 Dose: 1 each Ofloxacin (Ocuflox 0.3% Eye Drops -) 1 drop OD Q4HWA [facility] Last Admin: 10/15/16 15:21 Dose: 1 drop Potassium Chloride (Potassium Chloride Oral Liquid) 40 meq GT BID [facility] Last Admin: 10/15/16 10:57 Dose: 40 meq Prednisolone Acetate (Pred Forte 1% -) 1 drop OD BID [facility] Last Admin: 10/15/16 11:14 Dose: 1 drp Ranitidine HCl (Zantac Oral Solution -) 150 mg PO BID [facility] Last Admin: 10/15/16 10:56 Dose: 150 mg - Objective Vital Signs: Vital Signs Temperature 98.4 F 10/15/16 14:56 Pulse Rate 88 10/15/16 14:56 Respiratory Rate 25 H 10/15/16 14:56 Blood Pressure 136/63 10/15/16 14:56 O2 Sat by Pulse Oximetry (%) 100 10/03/16 12:19 Constitutional: Yes: No Distress, Calm Cardiovascular: Yes: Regular Rate and Rhythm Respiratory: Yes: Mechanically Ventilated, Other (tracheostomy) Gastrointestinal: Yes: Normal Bowel Sounds, Soft, Other (peg in place) Musculoskeletal: Yes: Other Extremities: Yes: Other Neurological: Yes: Alert, Other Psychiatric: Yes: Alert, Other Labs: CBC, BMP 10/15/16 07:00 10/15/16 07:00 INR, PTT INR 1.14 (0.82-1.09) 09/07/16 22:45 Fibrinogen > 700.0 mg/dL (238-498) H 07/31/16 05:40 Assessment/Plan Problem List - Problems (1) Abdominal pain Code(s): R10.9 - UNSPECIFIED ABDOMINAL PAIN Qualifiers: Qualified Code(s): R10.33 - Periumbilical pain (2) Perforated abdominal viscus Code(s): [id number] - (3) Perforated viscus Code(s): R19.8 - OTH SYMPTOMS AND SIGNS INVOLVING THE DGSTV SYS AND ABDOMEN (4) Hypertension Code(s): I10 - ESSENTIAL (PRIMARY) HYPERTENSION Qualifiers: Qualified Code(s): I10 - Essential (primary) hypertension lactic acidosis fevers generalized swelling gangrene of the tip of the fingers noted pseudomonas pneumonia plan continue current mgmt nutrition continue abx continue suctioning await for final plan patient will need another week of abx for now await for [facility]
[2016-10-15] MEDS: INSULIN DETEMIR 100 UNITS/ML MDV SQ SCH (22:30)
[2016-10-16] MEDS: CEFTAZIDIME PENTAHYDRATE 1 GM in DEXTROSE 5%-WATER - 50 ML IVPB SCH ×3 (01:35→18:22)
[2016-10-16] MEDS: OFLOXACIN 0.3% OPHTHALMIC SOLUTION 5 ML BOTTLE OD SCH ×5 (05:26→21:37)
[2016-10-16] MEDS: INSULIN SLIDING SCALE (NOVOLOG) 1 VIAL SQ SCH ×4 (06:22→21:30)
[2016-10-16] MEDS ORDERED: VANCOMYCIN 1,250 MG in DEXTROSE 5%-WATER - 250 ML IVPB SCH (10:00)
--- NOTE | 2016-10-16 10:21 | PN ---
Progress Note, Physician Chief Complaint: Remained at her base line , , low grade fever , opens eye to verbal command, on Vent Saturating well, no extremities movement s/p PEA cardiac arrest reviewed now on Vent. remained afebrile. History of Present Illness: 65-year-old F H/O hypertension, hypercholesterolemia, T2DM, ETOH abuse, admitted with perforated duodenal ulcer with sepsis, prolonged complicated course with respiratory failure s/p incubation, tracheostomy osiel vent dependent and PEG - Current Medication List Current Medications: Active Medications Acetaminophen (Tylenol Oral Solution -) 650 mg PO Q4H PRN PRN Reason: FEVER OR PAIN Last Admin: 10/07/16 23:11 Dose: 650 mg Clotrimazole (Lotrisone Cream (Small Tube)) 1 applic TP BID [facility] Last Admin: 10/15/16 22:31 Dose: 1 applic Collagenase (Santyl -) 1 applic TP DAILY [facility] Last Admin: 10/15/16 11:15 Dose: Not Given Dextrose (D50w (Vial) -) 50 gm IVPUSH Q15M PRN PRN Reason: BLOOD SUGAR < 60 Enoxaparin Sodium (Lovenox -) 40 mg SQ BID [facility] Last Admin: 10/15/16 22:33 Dose: 40 mg Furosemide (Lasix -) 20 mg GT DAILY [facility] Last Admin: 10/15/16 10:56 Dose: 20 mg IV Flush (Picc Line Flush) 8 ml IVPUSH PRN PRN PRN Reason: Protocol Ceftazidime 1 gm/ Dextrose 50 mls @ 100 mls/hr IVPB Q8H-IV [facility] PRN Reason: Protocol Last Admin: 10/16/16 01:35 Dose: 100 mls/hr Vancomycin HCl 1,250 mg/ (Dextrose) 250 mls @ 166.667 mls/hr IVPB BID [facility] PRN Reason: Protocol Insulin Aspart (Novolog Vial Sliding Scale -) 1 vial SQ ACHS [facility] PRN Reason: Protocol Last Admin: 10/16/16 06:22 Dose: 4 units Insulin Detemir (Levemir Vial) 40 units SQ HS [facility] Last Admin: 10/15/16 22:30 Dose: 40 units Magnesium Oxide (Mag-Ox -) 400 mg GT BID [facility] Last Admin: 10/15/16 22:34 Dose: 400 mg Miscellaneous (Duragesic Patch Waste) 1 each TD PRN PRN PRN Reason: PAIN Last Admin: 09/26/16 15:41 Dose: 1 each Ofloxacin (Ocuflox 0.3% Eye Drops -) 1 drop OD Q4HWA [facility] Last Admin: 10/16/16 05:26 Dose: 1 drop Potassium Chloride (Potassium Chloride Oral Liquid) 40 meq GT BID [facility] Last Admin: 10/15/16 22:28 Dose: 40 meq Prednisolone Acetate (Pred Forte 1% -) 1 drop OD BID [facility] Last Admin: 10/15/16 22:28 Dose: 1 drp Ranitidine HCl (Zantac Oral Solution -) 150 mg PO BID [facility] Last Admin: 10/15/16 22:28 Dose: 150 mg - Objective Vital Signs: Vital Signs Temperature 98.2 F 10/16/16 06:00 Pulse Rate 83 10/16/16 06:00 Respiratory Rate 18 10/16/16 09:33 Blood Pressure 110/56 10/16/16 06:00 O2 Sat by Pulse Oximetry (%) 100 10/03/16 12:19 Patient remained altered minimally responsive, on Vent HEENT: Trach at the place, need intermittent Vent support, mm most, anemia NECK; No JVD No Bruit CHEST: Good AE minimal crests ABD; S/P PEG tube, minimal discharge from wound, colostomy at place BS + EXT; extensive edema, skin peeling and gangrene of distal extremities [employer]; 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 DERM; gradually healing extensive skin peeling and gangrene of fingers and toes Labs: CBC, BMP 10/15/16 07:00 10/15/16 07:00 INR, PTT INR 1.14 (0.82-1.09) 09/07/16 22:45 Fibrinogen > 700.0 mg/dL (238-498) H 07/31/16 05:40 Problem List - Problems (1) Perforated abdominal viscus Assessment/Plan: Patient was presented with Rt UQ pain and with free air, Duodenal ulcer perforation s/p surgery. now fistula formation draining exudates.fistula still has discharge evaluate by surgery. and GI consult, patient has colostomy bag at place. (2) Acute metabolic encephalopathy Assessment/Plan: Secondary to hypoperfusion due to septic shock, at present no significant improvement , most likely hypoxic encephalopathy. Code(s): G93.41 - METABOLIC ENCEPHALOPATHY (3) Ischemia of extremity Assessment/Plan: Ischemia off all extremities due to prolonged vasopressor use, patient needed pressure to maintain BP, now off pressors wound care healing slowly. Code(s): I99.8 - OTHER DISORDER OF CIRCULATORY SYSTEM (4) Sepsis Assessment/Plan: Due to perforated gastric now off pressors, on Vancomycine and CeftizidimeF/U cultures.Prognosis is guarded. TWBC normal. Code(s): A41.9 - SEPSIS, UNSPECIFIED ORGANISM (5) Severe malnutrition Assessment/Plan: S/P PG tolerating feeding remove NG tube, Nutrition consult.. Code(s): E43 - UNSPECIFIED SEVERE PROTEIN-CALORIE MALNUTRITION (6) Diabetes mellitus Assessment/Plan: Better controlled add basal insulin Levimir 40 units and correction dose insulin. Code(s): E11.9 - TYPE 2 DIABETES MELLITUS WITHOUT COMPLICATIONS Qualifiers: Diabetes mellitus type: type 2
[2016-10-16] MEDS ORDERED: PT OWN MED DRAWER 7, Y5N ONE ×2 (11:21→18:20)
[2016-10-16] MEDS: FUROSEMIDE 20 MG TABLET (FP) GT SCH (11:22)
[2016-10-16] MEDS: POTASSIUM CHLORIDE ORAL LIQUID 20 MEQ/15 ML GT SCH ×2 (11:24→21:35)
[2016-10-16] MEDS: ENOXAPARIN NA (PORCINE) 40 MG/0.4 ML DISP.SYRIN SQ SCH ×2 (11:25→21:35)
[2016-10-16] MEDS: MAGNESIUM OXIDE 400 MG TABLET (FP) GT SCH ×2 (11:26→21:37)
[2016-10-16] MEDS: prednisoLONE ACETATE 1% OPHTH SUSP 5 ML BOTTLE OD SCH ×2 (11:26→21:37)
[2016-10-16] MEDS: CLOTRIMAZOLE/BETAMET DIPROP 15 GM TUBE TP SCH ×2 (11:27→21:36)
[2016-10-16] MEDS: RANITIDINE HCL 150 MG/10 ML UNIT-DOSE CUP PO SCH ×2 (11:27→21:35)
[2016-10-16] MEDS ORDERED: INSULIN (NOVOLOG) ASPART 100 UNITS/ML 10ML VIAL ONE (12:20)
--- NOTE | 2016-10-16 13:46 | PN ---
Progress Note, Physician History of Present Illness: awake on vent patient continues to be stable - Current Medication List Current Medications: Active Medications Acetaminophen (Tylenol Oral Solution -) 650 mg PO Q4H PRN PRN Reason: FEVER OR PAIN Last Admin: 10/07/16 23:11 Dose: 650 mg Clotrimazole (Lotrisone Cream (Small Tube)) 1 applic TP BID [facility] Last Admin: 10/16/16 11:27 Dose: 1 applic Collagenase (Santyl -) 1 applic TP DAILY [facility] Last Admin: 10/15/16 11:15 Dose: Not Given Dextrose (D50w (Vial) -) 50 gm IVPUSH Q15M PRN PRN Reason: BLOOD SUGAR < 60 Enoxaparin Sodium (Lovenox -) 40 mg SQ BID [facility] Last Admin: 10/16/16 11:25 Dose: 40 mg Furosemide (Lasix -) 20 mg GT DAILY [facility] Last Admin: 10/16/16 11:22 Dose: Not Given IV Flush (Picc Line Flush) 8 ml IVPUSH PRN PRN PRN Reason: Protocol Ceftazidime 1 gm/ Dextrose 50 mls @ 100 mls/hr IVPB Q8H-IV [facility] PRN Reason: Protocol Last Admin: 10/16/16 11:25 Dose: 100 mls/hr Vancomycin HCl 1,250 mg/ (Dextrose) 250 mls @ 166.667 mls/hr IVPB BID [facility] PRN Reason: Protocol Last Admin: 10/16/16 12:23 Dose: 166.667 mls/hr Insulin Aspart (Novolog Vial Sliding Scale -) 1 vial SQ ACHS [facility] PRN Reason: Protocol Last Admin: 10/16/16 12:24 Dose: 4 units Insulin Detemir (Levemir Vial) 40 units SQ HS [facility] Last Admin: 10/15/16 22:30 Dose: 40 units Magnesium Oxide (Mag-Ox -) 400 mg GT BID [facility] Last Admin: 10/16/16 11:26 Dose: 400 mg Miscellaneous (Duragesic Patch Waste) 1 each TD PRN PRN PRN Reason: PAIN Last Admin: 09/26/16 15:41 Dose: 1 each Ofloxacin (Ocuflox 0.3% Eye Drops -) 1 drop OD Q4HWA [facility] Last Admin: 10/16/16 11:27 Dose: 1 drop Potassium Chloride (Potassium Chloride Oral Liquid) 40 meq GT BID [facility] Last Admin: 10/16/16 11:24 Dose: 40 meq Prednisolone Acetate (Pred Forte 1% -) 1 drop OD BID [facility] Last Admin: 10/16/16 11:26 Dose: 1 drp Ranitidine HCl (Zantac Oral Solution -) 150 mg PO BID [facility] Last Admin: 10/16/16 11:27 Dose: 150 mg - Objective Vital Signs: Vital Signs Temperature 98.4 F 10/16/16 10:00 Pulse Rate 94 H 10/16/16 10:00 Respiratory Rate 25 H 10/16/16 12:40 Blood Pressure 100/54 10/16/16 10:00 O2 Sat by Pulse Oximetry (%) 100 10/03/16 12:19 Constitutional: Yes: No Distress, Calm Cardiovascular: Yes: Regular Rate and Rhythm Respiratory: Yes: Regular, Rhonchi, Other (trachestomy) Gastrointestinal: Yes: Normal Bowel Sounds, Soft, Other (peg in place) Musculoskeletal: Yes: Other Extremities: Yes: Other Wound/Incision: Yes: Other (gangrene) Neurological: Yes: Alert Psychiatric: Yes: Alert, Other Labs: CBC, BMP 10/15/16 07:00 10/15/16 07:00 INR, PTT INR 1.14 (0.82-1.09) 09/07/16 22:45 Fibrinogen > 700.0 mg/dL (238-498) H 07/31/16 05:40 Assessment/Plan Problem List - Problems (1) Abdominal pain Code(s): R10.9 - UNSPECIFIED ABDOMINAL PAIN Qualifiers: Qualified Code(s): R10.33 - Periumbilical pain (2) Perforated abdominal viscus Code(s): [id number] - (3) Perforated viscus Code(s): R19.8 - OTH SYMPTOMS AND SIGNS INVOLVING THE DGSTV SYS AND ABDOMEN (4) Hypertension Code(s): I10 - ESSENTIAL (PRIMARY) HYPERTENSION Qualifiers: Qualified Code(s): I10 - Essential (primary) hypertension lactic acidosis fevers generalized swelling gangrene of the tip of the fingers noted pseudomonas pneumonia plan continue current mgmt nutrition continue abx continue suctioning await for final plan patient will need another week of abx for now [facility] noted
--- NOTE | 2016-10-16 13:58 | PN ---
Progress Note, Physician History of Present Illness: pulmonary sleeping ,-resp distress on ac mode - Current Medication List Current Medications: Active Medications Acetaminophen (Tylenol Oral Solution -) 650 mg PO Q4H PRN PRN Reason: FEVER OR PAIN Last Admin: 10/07/16 23:11 Dose: 650 mg Clotrimazole (Lotrisone Cream (Small Tube)) 1 applic TP BID [facility] Last Admin: 10/16/16 11:27 Dose: 1 applic Collagenase (Santyl -) 1 applic TP DAILY [facility] Last Admin: 10/15/16 11:15 Dose: Not Given Dextrose (D50w (Vial) -) 50 gm IVPUSH Q15M PRN PRN Reason: BLOOD SUGAR < 60 Enoxaparin Sodium (Lovenox -) 40 mg SQ BID [facility] Last Admin: 10/16/16 11:25 Dose: 40 mg Furosemide (Lasix -) 20 mg GT DAILY [facility] Last Admin: 10/16/16 11:22 Dose: Not Given IV Flush (Picc Line Flush) 8 ml IVPUSH PRN PRN PRN Reason: Protocol Ceftazidime 1 gm/ Dextrose 50 mls @ 100 mls/hr IVPB Q8H-IV [facility] PRN Reason: Protocol Last Admin: 10/16/16 11:25 Dose: 100 mls/hr Vancomycin HCl 1,000 mg/ (Dextrose) 250 mls @ 166.667 mls/hr IVPB BID [facility] PRN Reason: Protocol Insulin Aspart (Novolog Vial Sliding Scale -) 1 vial SQ ACHS [facility] PRN Reason: Protocol Last Admin: 10/16/16 12:24 Dose: 4 units Insulin Detemir (Levemir Vial) 40 units SQ HS [facility] Last Admin: 10/15/16 22:30 Dose: 40 units Magnesium Oxide (Mag-Ox -) 400 mg GT BID [facility] Last Admin: 10/16/16 11:26 Dose: 400 mg Miscellaneous (Duragesic Patch Waste) 1 each TD PRN PRN PRN Reason: PAIN Last Admin: 09/26/16 15:41 Dose: 1 each Ofloxacin (Ocuflox 0.3% Eye Drops -) 1 drop OD Q4HWA [facility] Last Admin: 10/16/16 11:27 Dose: 1 drop Potassium Chloride (Potassium Chloride Oral Liquid) 40 meq GT BID [facility] Last Admin: 10/16/16 11:24 Dose: 40 meq Prednisolone Acetate (Pred Forte 1% -) 1 drop OD BID [facility] Last Admin: 10/16/16 11:26 Dose: 1 drp Ranitidine HCl (Zantac Oral Solution -) 150 mg PO BID [facility] Last Admin: 10/16/16 11:27 Dose: 150 mg - Objective Vital Signs: Vital Signs Temperature 98.4 F 10/16/16 10:00 Pulse Rate 94 H 10/16/16 10:00 Respiratory Rate 25 H 10/16/16 12:40 Blood Pressure 100/54 10/16/16 10:00 O2 Sat by Pulse Oximetry (%) 100 10/03/16 12:19 Constitutional: Yes: Thin, Other (sleeping) Eyes: Yes: WNL HENT: Yes: WNL Neck: Yes: Supple (trach) Cardiovascular: Yes: Regular Rate and Rhythm, S1, S2 Respiratory: Yes: Rhonchi (few rhonchi) Gastrointestinal: Yes: Normal Bowel Sounds, Soft Extremities: Yes: Other (bilateral gangrene hands and feet) Labs: Problem List - Problems (1) ZAHIRA (acute kidney injury) Code(s): N17.9 - ACUTE KIDNEY FAILURE, UNSPECIFIED (2) Acute metabolic encephalopathy Code(s): G93.41 - METABOLIC ENCEPHALOPATHY (3) Ischemia of extremity Code(s): I99.8 - OTHER DISORDER OF CIRCULATORY SYSTEM (4) Metabolic acidemia Code(s): E87.2 - ACIDOSIS (5) Perforated abdominal viscus Code(s): [id number] - (6) Sepsis Code(s): A41.9 - SEPSIS, UNSPECIFIED ORGANISM (7) Acute respiratory failure Code(s): J96.00 - ACUTE RESPIRATORY FAILURE, UNSP W HYPOXIA OR HYPERCAPNIA Assessment/Plan ASSESSMENT AND PLAN: Perforated Duodenal Ulcer Peritonitis s/p ex-lap/omental patch repair 07/16 Enterocutaneous Fistula Acute Respiratory Failure s/p Tracheostomy s/p Septic Shock DM DVT Gangrene s/p PEA Cardiac Arrest - Fio2 to keep Spo2 >90% - anticoagulation - morphine for comfort - enteral feeds as tolerated - DVT/GI prophylaxis - IMV as tolerated alt with AC - antibiotics as per ID - recommend palliative due to failure to wean, anticipated amputations, poor quality of life DR OSEI
[2016-10-16] MEDS: VANCOMYCIN 1 GRAM (PRE-DOCKED) 250 ML IVPB SCH ×2 (15:04→21:35)
[2016-10-16] MEDS: COLLAGENASE CLOSTRIDIUM HIST. 30 GRAMS TUBE TP SCH (18:04)
[2016-10-16] MEDS: INSULIN DETEMIR 100 UNITS/ML MDV SQ SCH (21:37)
[2016-10-17] MEDS: CEFTAZIDIME PENTAHYDRATE 1 GM in DEXTROSE 5%-WATER - 50 ML IVPB SCH ×3 (01:12→18:12)
[2016-10-17] MEDS: INSULIN SLIDING SCALE (NOVOLOG) 1 VIAL SQ SCH ×4 (06:33→21:54)
[2016-10-17] MEDS: OFLOXACIN 0.3% OPHTHALMIC SOLUTION 5 ML BOTTLE OD SCH ×5 (06:34→21:50)
--- NOTE | 2016-10-17 09:16 | PN ---
Progress Note, Physician History of Present Illness: No new complaints - Current Medication List Current Medications: Active Medications Acetaminophen (Tylenol Oral Solution -) 650 mg PO Q4H PRN PRN Reason: FEVER OR PAIN Last Admin: 10/07/16 23:11 Dose: 650 mg Clotrimazole (Lotrisone Cream (Small Tube)) 1 applic TP BID [facility] Last Admin: 10/16/16 21:36 Dose: 1 applic Collagenase (Santyl -) 1 applic TP DAILY [facility] Last Admin: 10/16/16 18:04 Dose: 1 applic Dextrose (D50w (Vial) -) 50 gm IVPUSH Q15M PRN PRN Reason: BLOOD SUGAR < 60 Enoxaparin Sodium (Lovenox -) 40 mg SQ BID [facility] Last Admin: 10/16/16 21:35 Dose: 40 mg Furosemide (Lasix -) 20 mg GT DAILY [facility] Last Admin: 10/16/16 11:22 Dose: Not Given IV Flush (Picc Line Flush) 8 ml IVPUSH PRN PRN PRN Reason: Protocol Ceftazidime 1 gm/ Dextrose 50 mls @ 100 mls/hr IVPB Q8H-IV [facility] PRN Reason: Protocol Last Admin: 10/17/16 01:12 Dose: 100 mls/hr Vancomycin HCl (Vancomycin (Pre-Docked)) 250 mls @ 166.667 mls/hr IVPB BID@1000 ,2200 [facility] PRN Reason: Protocol Last Admin: 10/16/16 21:35 Dose: 166.667 mls/hr Insulin Aspart (Novolog Vial Sliding Scale -) 1 vial SQ ACHS [facility] PRN Reason: Protocol Last Admin: 10/17/16 06:33 Dose: 4 units Insulin Detemir (Levemir Vial) 40 units SQ HS [facility] Last Admin: 10/16/16 21:37 Dose: 40 units Magnesium Oxide (Mag-Ox -) 400 mg GT BID [facility] Last Admin: 10/16/16 21:37 Dose: 400 mg Miscellaneous (Duragesic Patch Waste) 1 each TD PRN PRN PRN Reason: PAIN Last Admin: 09/26/16 15:41 Dose: 1 each Ofloxacin (Ocuflox 0.3% Eye Drops -) 1 drop OD Q4HWA [facility] Last Admin: 10/17/16 06:34 Dose: 1 drop Potassium Chloride (Potassium Chloride Oral Liquid) 40 meq GT BID [facility] Last Admin: 10/16/16 21:35 Dose: 40 meq Prednisolone Acetate (Pred Forte 1% -) 1 drop OD BID [facility] Last Admin: 10/16/16 21:37 Dose: 1 drp Ranitidine HCl (Zantac Oral Solution -) 150 mg PO BID [facility] Last Admin: 10/16/16 21:35 Dose: 150 mg - Objective Vital Signs: Vital Signs Temperature 97.9 F 10/17/16 02:00 Pulse Rate 81 10/17/16 02:00 Respiratory Rate 13 10/17/16 06:42 Blood Pressure 109/60 10/17/16 02:00 O2 Sat by Pulse Oximetry (%) 100 10/03/16 12:19 Constitutional: Yes: No Distress Eyes: Yes: WNL HENT: Yes: WNL Neck: Yes: WNL Cardiovascular: Yes: Regular Rate and Rhythm Respiratory: Yes: Mechanically Ventilated Gastrointestinal: Yes: Normal Bowel Sounds ...Rectal Exam: Yes: WNL Genitourinary: Yes: WNL Edema: No Neurological: Yes: Alert Labs: CBC, BMP 10/15/16 07:00 10/15/16 07:00 INR, PTT INR 1.14 (0.82-1.09) 09/07/16 22:45 Fibrinogen > 700.0 mg/dL (238-498) H 07/31/16 05:40 Assessment/Plan Wean from respirator
[2016-10-17] MEDS: CLOTRIMAZOLE/BETAMET DIPROP 15 GM TUBE TP SCH ×2 (10:29→21:50)
[2016-10-17] MEDS: FUROSEMIDE 20 MG TABLET (FP) GT SCH (10:30)
[2016-10-17] MEDS: POTASSIUM CHLORIDE ORAL LIQUID 20 MEQ/15 ML GT SCH ×2 (10:30→21:50)
[2016-10-17] MEDS: MAGNESIUM OXIDE 400 MG TABLET (FP) GT SCH ×2 (10:30→21:50)
[2016-10-17] MEDS: RANITIDINE HCL 150 MG/10 ML UNIT-DOSE CUP PO SCH ×2 (10:30→21:50)
[2016-10-17] MEDS: prednisoLONE ACETATE 1% OPHTH SUSP 5 ML BOTTLE OD SCH ×2 (10:31→21:51)
[2016-10-17] MEDS: ENOXAPARIN NA (PORCINE) 40 MG/0.4 ML DISP.SYRIN SQ SCH ×2 (11:56→21:50)
[2016-10-17] MEDS: COLLAGENASE CLOSTRIDIUM HIST. 30 GRAMS TUBE TP SCH (11:56)
[2016-10-17] MEDS: VANCOMYCIN 1 GRAM (PRE-DOCKED) 250 ML IVPB SCH ×2 (11:56→21:51)
[2016-10-17] MEDS ORDERED: INSULIN (NOVOLOG) ASPART 100 UNITS/ML 10ML VIAL ONE (12:30)
--- NOTE | 2016-10-17 13:43 | PN ---
Progress Note, Physician History of Present Illness: PULMONARY AWAKE ON VENT SUPPORT IMV - Current Medication List Current Medications: Active Medications Acetaminophen (Tylenol Oral Solution -) 650 mg PO Q4H PRN PRN Reason: FEVER OR PAIN Last Admin: 10/07/16 23:11 Dose: 650 mg Clotrimazole (Lotrisone Cream (Small Tube)) 1 applic TP BID [facility] Last Admin: 10/17/16 10:29 Dose: 1 applic Collagenase (Santyl -) 1 applic TP DAILY [facility] Last Admin: 10/17/16 11:56 Dose: 1 applic Dextrose (D50w (Vial) -) 50 gm IVPUSH Q15M PRN PRN Reason: BLOOD SUGAR < 60 Enoxaparin Sodium (Lovenox -) 40 mg SQ BID [facility] Last Admin: 10/17/16 11:56 Dose: 40 mg Furosemide (Lasix -) 20 mg GT DAILY [facility] Last Admin: 10/17/16 10:30 Dose: 20 mg IV Flush (Picc Line Flush) 8 ml IVPUSH PRN PRN PRN Reason: Protocol Ceftazidime 1 gm/ Dextrose 50 mls @ 100 mls/hr IVPB Q8H-IV [facility] PRN Reason: Protocol Last Admin: 10/17/16 10:30 Dose: 100 mls/hr Vancomycin HCl (Vancomycin (Pre-Docked)) 250 mls @ 166.667 mls/hr IVPB BID@1000 ,2200 [facility] PRN Reason: Protocol Last Admin: 10/17/16 11:56 Dose: 166.667 mls/hr Insulin Aspart (Novolog Vial Sliding Scale -) 1 vial SQ ACHS [facility] PRN Reason: Protocol Last Admin: 10/17/16 12:35 Dose: 4 units Insulin Detemir (Levemir Vial) 40 units SQ HS [facility] Last Admin: 10/16/16 21:37 Dose: 40 units Magnesium Oxide (Mag-Ox -) 400 mg GT BID [facility] Last Admin: 10/17/16 10:30 Dose: 400 mg Miscellaneous (Duragesic Patch Waste) 1 each TD PRN PRN PRN Reason: PAIN Last Admin: 09/26/16 15:41 Dose: 1 each Ofloxacin (Ocuflox 0.3% Eye Drops -) 1 drop OD Q4HWA [facility] Last Admin: 10/17/16 10:31 Dose: 1 drop Potassium Chloride (Potassium Chloride Oral Liquid) 40 meq GT BID [facility] Last Admin: 10/17/16 10:30 Dose: 40 meq Prednisolone Acetate (Pred Forte 1% -) 1 drop OD BID [facility] Last Admin: 10/17/16 10:31 Dose: 1 drp Ranitidine HCl (Zantac Oral Solution -) 150 mg PO BID [facility] Last Admin: 10/17/16 10:30 Dose: 150 mg - Objective Vital Signs: Vital Signs Temperature 99 F 10/17/16 10:00 Pulse Rate 86 10/17/16 10:00 Respiratory Rate 24 10/17/16 10:20 Blood Pressure 108/69 10/17/16 10:00 O2 Sat by Pulse Oximetry (%) 100 10/03/16 12:19 Constitutional: Yes: Calm, Thin Eyes: Yes: WNL HENT: Yes: WNL Neck: Yes: Supple (TRACH) Cardiovascular: Yes: Regular Rate and Rhythm, S1, S2 Respiratory: Yes: Rhonchi (FEW RHONCHI BILATERALLY) Gastrointestinal: Yes: Normal Bowel Sounds, Soft Extremities: Yes: Other ([place] [place] HANDS AND FEET) Edema: No Labs: CBC, BMP Problem List - Problems (1) ZAHIRA (acute kidney injury) Code(s): N17.9 - ACUTE KIDNEY FAILURE, UNSPECIFIED (2) Acute metabolic encephalopathy Code(s): G93.41 - METABOLIC ENCEPHALOPATHY (3) Ischemia of extremity Code(s): I99.8 - OTHER DISORDER OF CIRCULATORY SYSTEM (4) Metabolic acidemia Code(s): E87.2 - ACIDOSIS (5) Perforated abdominal viscus Code(s): ZEP8141 - (6) Sepsis Code(s): A41.9 - SEPSIS, UNSPECIFIED ORGANISM (7) Acute respiratory failure Code(s): J96.00 - ACUTE RESPIRATORY FAILURE, UNSP W HYPOXIA OR HYPERCAPNIA Assessment/Plan ASSESSMENT AND PLAN: Perforated Duodenal Ulcer Peritonitis s/p ex-lap/omental patch repair 07/16 Enterocutaneous Fistula Acute Respiratory Failure s/p Tracheostomy s/p Septic Shock DM DVT Gangrene s/p PEA Cardiac Arrest - Fio2 to keep Spo2 >90% - anticoagulation - morphine for comfort - enteral feeds as tolerated - DVT/GI prophylaxis - IMV as tolerated alt with AC - antibiotics as per ID - recommend palliative due to failure to wean, anticipated amputations, poor quality of life DR OSEI
--- NOTE | 2016-10-17 14:59 | PN ---
Progress Note, Physician History of Present Illness: awake on vent patient continues to be stable awake and alert comfortable - Current Medication List Current Medications: Active Medications Acetaminophen (Tylenol Oral Solution -) 650 mg PO Q4H PRN PRN Reason: FEVER OR PAIN Last Admin: 10/07/16 23:11 Dose: 650 mg Clotrimazole (Lotrisone Cream (Small Tube)) 1 applic TP BID [facility] Last Admin: 10/17/16 10:29 Dose: 1 applic Collagenase (Santyl -) 1 applic TP DAILY [facility] Last Admin: 10/17/16 11:56 Dose: 1 applic Dextrose (D50w (Vial) -) 50 gm IVPUSH Q15M PRN PRN Reason: BLOOD SUGAR < 60 Enoxaparin Sodium (Lovenox -) 40 mg SQ BID [facility] Last Admin: 10/17/16 11:56 Dose: 40 mg Furosemide (Lasix -) 20 mg GT DAILY [facility] Last Admin: 10/17/16 10:30 Dose: 20 mg IV Flush (Picc Line Flush) 8 ml IVPUSH PRN PRN PRN Reason: Protocol Ceftazidime 1 gm/ Dextrose 50 mls @ 100 mls/hr IVPB Q8H-IV [facility] PRN Reason: Protocol Last Admin: 10/17/16 10:30 Dose: 100 mls/hr Vancomycin HCl (Vancomycin (Pre-Docked)) 250 mls @ 166.667 mls/hr IVPB BID@1000 ,2200 [facility] PRN Reason: Protocol Last Admin: 10/17/16 11:56 Dose: 166.667 mls/hr Insulin Aspart (Novolog Vial Sliding Scale -) 1 vial SQ ACHS [facility] PRN Reason: Protocol Last Admin: 10/17/16 12:35 Dose: 4 units Insulin Detemir (Levemir Vial) 40 units SQ HS [facility] Last Admin: 10/16/16 21:37 Dose: 40 units Magnesium Oxide (Mag-Ox -) 400 mg GT BID [facility] Last Admin: 10/17/16 10:30 Dose: 400 mg Miscellaneous (Duragesic Patch Waste) 1 each TD PRN PRN PRN Reason: PAIN Last Admin: 09/26/16 15:41 Dose: 1 each Ofloxacin (Ocuflox 0.3% Eye Drops -) 1 drop OD Q4HWA [facility] Last Admin: 10/17/16 14:54 Dose: 1 drop Potassium Chloride (Potassium Chloride Oral Liquid) 40 meq GT BID [facility] Last Admin: 10/17/16 10:30 Dose: 40 meq Prednisolone Acetate (Pred Forte 1% -) 1 drop OD BID [facility] Last Admin: 10/17/16 10:31 Dose: 1 drp Ranitidine HCl (Zantac Oral Solution -) 150 mg PO BID [facility] Last Admin: 10/17/16 10:30 Dose: 150 mg - Objective Vital Signs: Vital Signs Temperature 99 F 10/17/16 10:00 Pulse Rate 86 10/17/16 10:00 Respiratory Rate 24 10/17/16 10:20 Blood Pressure 108/69 10/17/16 10:00 O2 Sat by Pulse Oximetry (%) 100 10/03/16 12:19 Constitutional: Yes: No Distress, Calm Cardiovascular: Yes: Regular Rate and Rhythm Respiratory: Yes: Mechanically Ventilated, Other Gastrointestinal: Yes: Normal Bowel Sounds, Soft Musculoskeletal: Yes: Other Extremities: Yes: Other Integumentary: Yes: Other (gangrene of the digits of the hands and toes) Neurological: Yes: Alert Psychiatric: Yes: Alert Labs: CBC, BMP 10/15/16 07:00 10/15/16 07:00 INR, PTT INR 1.14 (0.82-1.09) 09/07/16 22:45 Fibrinogen > 700.0 mg/dL (238-498) H 07/31/16 05:40 Assessment/Plan Problem List - Problems (1) Abdominal pain Code(s): R10.9 - UNSPECIFIED ABDOMINAL PAIN Qualifiers: Qualified Code(s): R10.33 - Periumbilical pain (2) Perforated abdominal viscus Code(s): [id number] - (3) Perforated viscus Code(s): R19.8 - OTH SYMPTOMS AND SIGNS INVOLVING THE DGSTV SYS AND ABDOMEN (4) Hypertension Code(s): I10 - ESSENTIAL (PRIMARY) HYPERTENSION Qualifiers: Qualified Code(s): I10 - Essential (primary) hypertension lactic acidosis fevers generalized swelling gangrene of the tip of the fingers noted pseudomonas pneumonia plan continue current mgmt nutrition continue abx continue suctioning await for final plan abx for 6 more days
[2016-10-17] MEDS: ACETAMINOPHEN 650 MG/20.3 ML ORAL SOLUTION (CUPS) PO PRN (18:17)
[2016-10-17] MEDS: INSULIN DETEMIR 100 UNITS/ML MDV SQ SCH (21:53)
[2016-10-18] MEDS: CEFTAZIDIME PENTAHYDRATE 1 GM in DEXTROSE 5%-WATER - 50 ML IVPB SCH ×3 (01:56→17:14)
[2016-10-18] MEDS: OFLOXACIN 0.3% OPHTHALMIC SOLUTION 5 ML BOTTLE OD SCH ×5 (06:16→22:46)
[2016-10-18] MEDS: INSULIN SLIDING SCALE (NOVOLOG) 1 VIAL SQ SCH ×4 (06:21→22:51)
[2016-10-18] MEDS: VANCOMYCIN 1 GRAM (PRE-DOCKED) 250 ML IVPB SCH ×2 (10:11→22:43)
[2016-10-18] MEDS: RANITIDINE HCL 150 MG/10 ML UNIT-DOSE CUP PO SCH ×2 (10:12→22:45)
[2016-10-18] MEDS: CLOTRIMAZOLE/BETAMET DIPROP 15 GM TUBE TP SCH ×2 (10:12→22:46)
[2016-10-18] MEDS: FUROSEMIDE 20 MG TABLET (FP) GT SCH (10:12)
[2016-10-18] MEDS: MAGNESIUM OXIDE 400 MG TABLET (FP) GT SCH ×2 (10:12→22:51)
[2016-10-18] MEDS: POTASSIUM CHLORIDE ORAL LIQUID 20 MEQ/15 ML GT SCH ×2 (10:12→22:45)
[2016-10-18] MEDS: prednisoLONE ACETATE 1% OPHTH SUSP 5 ML BOTTLE OD SCH ×2 (10:13→22:45)
[2016-10-18] MEDS: ENOXAPARIN NA (PORCINE) 40 MG/0.4 ML DISP.SYRIN SQ SCH ×2 (10:13→22:45)
[2016-10-18] MEDS: COLLAGENASE CLOSTRIDIUM HIST. 30 GRAMS TUBE TP SCH (10:13)
--- NOTE | 2016-10-18 12:27 | PN ---
Progress Note, Physician Chief Complaint: No new complaints History of Present Illness: On respirator IMV - Current Medication List Current Medications: Active Medications Acetaminophen (Tylenol Oral Solution -) 650 mg PO Q4H PRN PRN Reason: FEVER OR PAIN Last Admin: 10/17/16 18:17 Dose: 650 mg Clotrimazole (Lotrisone Cream (Small Tube)) 1 applic TP BID [facility] Last Admin: 10/18/16 10:12 Dose: 1 applic Collagenase (Santyl -) 1 applic TP DAILY [facility] Last Admin: 10/18/16 10:13 Dose: 1 drop Dextrose (D50w (Vial) -) 50 gm IVPUSH Q15M PRN PRN Reason: BLOOD SUGAR < 60 Enoxaparin Sodium (Lovenox -) 40 mg SQ BID [facility] Last Admin: 10/18/16 10:13 Dose: 40 mg Furosemide (Lasix -) 20 mg GT DAILY [facility] Last Admin: 10/18/16 10:12 Dose: 20 mg IV Flush (Picc Line Flush) 8 ml IVPUSH PRN PRN PRN Reason: Protocol Ceftazidime 1 gm/ Dextrose 50 mls @ 100 mls/hr IVPB Q8H-IV [facility] PRN Reason: Protocol Last Admin: 10/18/16 10:11 Dose: 100 mls/hr Vancomycin HCl (Vancomycin (Pre-Docked)) 250 mls @ 166.667 mls/hr IVPB BID@1000 ,2200 [facility] PRN Reason: Protocol Last Admin: 10/18/16 10:11 Dose: 166.667 mls/hr Insulin Aspart (Novolog Vial Sliding Scale -) 1 vial SQ ACHS [facility] PRN Reason: Protocol Last Admin: 10/18/16 06:21 Dose: 8 units Insulin Detemir (Levemir Vial) 40 units SQ HS [facility] Last Admin: 10/17/16 21:53 Dose: 40 units Magnesium Oxide (Mag-Ox -) 400 mg GT BID [facility] Last Admin: 10/18/16 10:12 Dose: 400 mg Miscellaneous (Duragesic Patch Waste) 1 each TD PRN PRN PRN Reason: PAIN Last Admin: 09/26/16 15:41 Dose: 1 each Ofloxacin (Ocuflox 0.3% Eye Drops -) 1 drop OD Q4HWA [facility] Last Admin: 10/18/16 10:12 Dose: 1 drop Potassium Chloride (Potassium Chloride Oral Liquid) 40 meq GT BID [facility] Last Admin: 10/18/16 10:12 Dose: 40 meq Prednisolone Acetate (Pred Forte 1% -) 1 drop OD BID [facility] Last Admin: 10/18/16 10:13 Dose: 1 drp Ranitidine HCl (Zantac Oral Solution -) 150 mg PO BID [facility] Last Admin: 10/18/16 10:12 Dose: 150 mg - Objective Vital Signs: Vital Signs Temperature 99.1 F 10/18/16 06:00 Pulse Rate 96 H 10/18/16 06:00 Respiratory Rate 31 H 10/18/16 11:04 Blood Pressure 109/57 10/18/16 06:00 O2 Sat by Pulse Oximetry (%) 100 10/03/16 12:19 Constitutional: Yes: No Distress Eyes: Yes: WNL HENT: Yes: WNL Neck: Yes: WNL Cardiovascular: Yes: Regular Rate and Rhythm Respiratory: Yes: Mechanically Ventilated Gastrointestinal: Yes: Normal Bowel Sounds ...Rectal Exam: Yes: Deferred Musculoskeletal: Yes: Muscle Weakness Neurological: Yes: Alert Labs: CBC, BMP 10/15/16 07:00 10/15/16 07:00 INR, PTT INR 1.14 (0.82-1.09) 09/07/16 22:45 Fibrinogen > 700.0 mg/dL (238-498) H 07/31/16 05:40 Assessment/Plan Continue same trt
--- NOTE | 2016-10-18 13:00 | PN ---
Progress Note (short form) - Note Progress Note: NAD. Intermittently tolerating IMV. No significant overall clinical improvement noted. Intake & Output 10/15/16 10/16/16 10/17/16 10/18/16 23:59 23:59 23:59 23:59 Intake Total 2640 2775 2740 1630 Output Total 0 Balance 2640 2775 2740 1630 Weight 129 lb 8 oz Last Vital Signs Temp Pulse Resp BP Pulse Ox 98.2 F 104 H 31 H 138/54 100 10/18/16 10:00 10/18/16 10:00 10/18/16 11:04 10/18/16 10:00 10/03/16 12:19 Active Medications Acetaminophen (Tylenol Oral Solution -) 650 mg PO Q4H PRN PRN Reason: FEVER OR PAIN Last Admin: 10/17/16 18:17 Dose: 650 mg Clotrimazole (Lotrisone Cream (Small Tube)) 1 applic TP BID [facility] Last Admin: 10/18/16 10:12 Dose: 1 applic Collagenase (Santyl -) 1 applic TP DAILY [facility] Last Admin: 10/18/16 10:13 Dose: 1 drop Dextrose (D50w (Vial) -) 50 gm IVPUSH Q15M PRN PRN Reason: BLOOD SUGAR < 60 Enoxaparin Sodium (Lovenox -) 40 mg SQ BID [facility] Last Admin: 10/18/16 10:13 Dose: 40 mg Furosemide (Lasix -) 20 mg GT DAILY [facility] Last Admin: 10/18/16 10:12 Dose: 20 mg IV Flush (Picc Line Flush) 8 ml IVPUSH PRN PRN PRN Reason: Protocol Ceftazidime 1 gm/ Dextrose 50 mls @ 100 mls/hr IVPB Q8H-IV [facility] PRN Reason: Protocol Last Admin: 10/18/16 10:11 Dose: 100 mls/hr Vancomycin HCl (Vancomycin (Pre-Docked)) 250 mls @ 166.667 mls/hr IVPB BID@1000 ,2200 [facility] PRN Reason: Protocol Last Admin: 10/18/16 10:11 Dose: 166.667 mls/hr Insulin Aspart (Novolog Vial Sliding Scale -) 1 vial SQ ACHS [facility] PRN Reason: Protocol Last Admin: 10/18/16 12:41 Dose: 4 units Insulin Detemir (Levemir Vial) 40 units SQ HS [facility] Last Admin: 10/17/16 21:53 Dose: 40 units Magnesium Oxide (Mag-Ox -) 400 mg GT BID [facility] Last Admin: 10/18/16 10:12 Dose: 400 mg Miscellaneous (Duragesic Patch Waste) 1 each TD PRN PRN PRN Reason: PAIN Last Admin: 09/26/16 15:41 Dose: 1 each Ofloxacin (Ocuflox 0.3% Eye Drops -) 1 drop OD Q4HWA [facility] Last Admin: 10/18/16 10:12 Dose: 1 drop Potassium Chloride (Potassium Chloride Oral Liquid) 40 meq GT BID [facility] Last Admin: 10/18/16 10:12 Dose: 40 meq Prednisolone Acetate (Pred Forte 1% -) 1 drop OD BID [facility] Last Admin: 10/18/16 10:13 Dose: 1 drp Ranitidine HCl (Zantac Oral Solution -) 150 mg PO BID [facility] Last Admin: 10/18/16 10:12 Dose: 150 mg Gen: NAD, vented Heart: S1S2 Lung: bilateral scattered rhonchi Abd: soft, nontender, +fistula drainage, (+) Feeding tube Ext: multiple ulcers, dry gangrene of bilateral feet, fingers Laboratory Results - last 24 hr 10/17/16 10/17/16 10/18/16 16:32 21:52 06:18 POC Glucometer 154 190 208 10/18/16 12:02 POC Glucometer 168 A/P Bibasilar atelectasis Perforated Duodenal Ulcer Peritonitis s/p ex-lap/omental patch repair 07/16 Enterocutaneous Fistula Acute Respiratory Failure s/p Tracheostomy s/p Septic Shock DM DVT Gangrene s/p PEA Cardiac Arrest - ABX Per ID - AC - morphine for comfort - enteral feeds as tolerated - SBTs as tolerated - continued discussions regarding advanced directives and goals of care - recommend palliative/supportive care due to failure to wean, anticipated amputations, poor quality of life, evolving medical issues Dr Dubon
--- NOTE | 2016-10-18 13:10 | PN ---
Progress Note, Physician History of Present Illness: no new issues status quo - Current Medication List Current Medications: Active Medications Acetaminophen (Tylenol Oral Solution -) 650 mg PO Q4H PRN PRN Reason: FEVER OR PAIN Last Admin: 10/17/16 18:17 Dose: 650 mg Clotrimazole (Lotrisone Cream (Small Tube)) 1 applic TP BID [facility] Last Admin: 10/18/16 10:12 Dose: 1 applic Collagenase (Santyl -) 1 applic TP DAILY [facility] Last Admin: 10/18/16 10:13 Dose: 1 drop Dextrose (D50w (Vial) -) 50 gm IVPUSH Q15M PRN PRN Reason: BLOOD SUGAR < 60 Enoxaparin Sodium (Lovenox -) 40 mg SQ BID [facility] Last Admin: 10/18/16 10:13 Dose: 40 mg Furosemide (Lasix -) 20 mg GT DAILY [facility] Last Admin: 10/18/16 10:12 Dose: 20 mg IV Flush (Picc Line Flush) 8 ml IVPUSH PRN PRN PRN Reason: Protocol Ceftazidime 1 gm/ Dextrose 50 mls @ 100 mls/hr IVPB Q8H-IV [facility] PRN Reason: Protocol Last Admin: 10/18/16 10:11 Dose: 100 mls/hr Vancomycin HCl (Vancomycin (Pre-Docked)) 250 mls @ 166.667 mls/hr IVPB BID@1000 ,2200 [facility] PRN Reason: Protocol Last Admin: 10/18/16 10:11 Dose: 166.667 mls/hr Insulin Aspart (Novolog Vial Sliding Scale -) 1 vial SQ ACHS [facility] PRN Reason: Protocol Last Admin: 10/18/16 12:41 Dose: 4 units Insulin Detemir (Levemir Vial) 40 units SQ HS [facility] Last Admin: 10/17/16 21:53 Dose: 40 units Magnesium Oxide (Mag-Ox -) 400 mg GT BID [facility] Last Admin: 10/18/16 10:12 Dose: 400 mg Miscellaneous (Duragesic Patch Waste) 1 each TD PRN PRN PRN Reason: PAIN Last Admin: 09/26/16 15:41 Dose: 1 each Ofloxacin (Ocuflox 0.3% Eye Drops -) 1 drop OD Q4HWA [facility] Last Admin: 10/18/16 10:12 Dose: 1 drop Potassium Chloride (Potassium Chloride Oral Liquid) 40 meq GT BID [facility] Last Admin: 10/18/16 10:12 Dose: 40 meq Prednisolone Acetate (Pred Forte 1% -) 1 drop OD BID [facility] Last Admin: 10/18/16 10:13 Dose: 1 drp Ranitidine HCl (Zantac Oral Solution -) 150 mg PO BID [facility] Last Admin: 10/18/16 10:12 Dose: 150 mg - Objective Vital Signs: Vital Signs Temperature 98.2 F 10/18/16 10:00 Pulse Rate 104 H 10/18/16 10:00 Respiratory Rate 31 H 10/18/16 11:04 Blood Pressure 138/54 10/18/16 10:00 O2 Sat by Pulse Oximetry (%) 100 10/03/16 12:19 Constitutional: Yes: No Distress, Calm Cardiovascular: Yes: Regular Rate and Rhythm Respiratory: Yes: Mechanically Ventilated, Other Gastrointestinal: Yes: Normal Bowel Sounds, Soft, Other (peg in place) Musculoskeletal: Yes: Other Extremities: Yes: Other Integumentary: Yes: Other Wound/Incision: Yes: Other Neurological: Yes: Alert Labs: CBC, BMP 10/15/16 07:00 10/15/16 07:00 INR, PTT INR 1.14 (0.82-1.09) 09/07/16 22:45 Fibrinogen > 700.0 mg/dL (238-498) H 07/31/16 05:40 Assessment/Plan Problem List - Problems (1) Abdominal pain Code(s): R10.9 - UNSPECIFIED ABDOMINAL PAIN Qualifiers: Qualified Code(s): R10.33 - Periumbilical pain (2) Perforated abdominal viscus Code(s): [id number] - (3) Perforated viscus Code(s): R19.8 - OTH SYMPTOMS AND SIGNS INVOLVING THE DGSTV SYS AND ABDOMEN (4) Hypertension Code(s): I10 - ESSENTIAL (PRIMARY) HYPERTENSION Qualifiers: Qualified Code(s): I10 - Essential (primary) hypertension lactic acidosis fevers generalized swelling gangrene of the tip of the fingers noted pseudomonas pneumonia plan continue current mgmt nutrition continue abx continue suctioning abx for 5 more days
[2016-10-18] MEDS ORDERED: ALPRAZolam 0.25 MG TABLET PO ONE (15:45)
[2016-10-18] MEDS ORDERED: PT OWN MED DRAWER 7, Y5N ONE (17:11)
[2016-10-18] MEDS: INSULIN DETEMIR 100 UNITS/ML MDV SQ SCH (22:52)
[2016-10-19] MEDS: CEFTAZIDIME PENTAHYDRATE 1 GM in DEXTROSE 5%-WATER - 50 ML IVPB SCH ×3 (01:57→17:46)
[2016-10-19] MEDS: OFLOXACIN 0.3% OPHTHALMIC SOLUTION 5 ML BOTTLE OD SCH ×5 (06:17→21:40)
[2016-10-19] MEDS: INSULIN SLIDING SCALE (NOVOLOG) 1 VIAL SQ SCH ×4 (06:20→21:34)
[2016-10-19] MEDS: POTASSIUM CHLORIDE ORAL LIQUID 20 MEQ/15 ML GT SCH ×2 (09:59→21:36)
[2016-10-19] MEDS: COLLAGENASE CLOSTRIDIUM HIST. 30 GRAMS TUBE TP SCH (09:59)
[2016-10-19] MEDS: MAGNESIUM OXIDE 400 MG TABLET (FP) GT SCH ×2 (10:00→21:37)
[2016-10-19] MEDS: ENOXAPARIN NA (PORCINE) 40 MG/0.4 ML DISP.SYRIN SQ SCH ×2 (10:00→21:37)
[2016-10-19] MEDS: FUROSEMIDE 20 MG TABLET (FP) GT SCH (10:00)
[2016-10-19] MEDS: CLOTRIMAZOLE/BETAMET DIPROP 15 GM TUBE TP SCH ×2 (10:02→21:39)
[2016-10-19] MEDS: prednisoLONE ACETATE 1% OPHTH SUSP 5 ML BOTTLE OD SCH ×2 (10:03→21:39)
[2016-10-19] MEDS: ACETAMINOPHEN 650 MG/20.3 ML ORAL SOLUTION (CUPS) PO PRN (10:03)
[2016-10-19] MEDS: VANCOMYCIN 1 GRAM (PRE-DOCKED) 250 ML IVPB SCH ×2 (12:00→21:36)
[2016-10-19] MEDS: RANITIDINE HCL 150 MG/10 ML UNIT-DOSE CUP PO SCH ×2 (12:00→21:37)
[2016-10-19] MEDS ORDERED: ALPRAZolam 0.25 MG TABLET GT ONE (12:30)
--- NOTE | 2016-10-19 12:59 | PN ---
Progress Note (short form) - Note Progress Note: Mildly tachypneic on AC MOde of vent. Periods of agitation and subsequent dysynchrony with MV. No significant overall clinical improvement noted. Intake & Output 10/16/16 10/17/16 10/18/16 10/19/16 23:59 23:59 23:59 23:59 Intake Total 2775 2740 3340 Output Total 0 Balance 2775 2740 3340 Weight 129 lb 8 oz Last Vital Signs Temp Pulse Resp BP Pulse Ox 97.9 F 88 28 H 115/62 100 10/19/16 10:00 10/19/16 10:00 10/19/16 10:15 10/19/16 10:00 10/03/16 12:19 Active Medications Acetaminophen (Tylenol Oral Solution -) 650 mg PO Q4H PRN PRN Reason: FEVER OR PAIN Last Admin: 10/19/16 10:03 Dose: 650 mg Clotrimazole (Lotrisone Cream (Small Tube)) 1 applic TP BID [facility] Last Admin: 10/19/16 10:02 Dose: 1 applic Collagenase (Santyl -) 1 applic TP DAILY [facility] Last Admin: 10/19/16 09:59 Dose: 1 applic Dextrose (D50w (Vial) -) 50 gm IVPUSH Q15M PRN PRN Reason: BLOOD SUGAR < 60 Enoxaparin Sodium (Lovenox -) 40 mg SQ BID [facility] Last Admin: 10/19/16 10:00 Dose: 40 mg Furosemide (Lasix -) 20 mg GT DAILY [facility] Last Admin: 10/19/16 10:00 Dose: 20 mg IV Flush (Picc Line Flush) 8 ml IVPUSH PRN PRN PRN Reason: Protocol Ceftazidime 1 gm/ Dextrose 50 mls @ 100 mls/hr IVPB Q8H-IV [facility] PRN Reason: Protocol Last Admin: 10/19/16 10:02 Dose: 100 mls/hr Vancomycin HCl (Vancomycin (Pre-Docked)) 250 mls @ 166.667 mls/hr IVPB BID@1000 ,2200 [facility] PRN Reason: Protocol Last Admin: 10/19/16 12:00 Dose: 166.667 mls/hr Insulin Aspart (Novolog Vial Sliding Scale -) 1 vial SQ ACHS [facility] PRN Reason: Protocol Last Admin: 10/19/16 12:01 Dose: 4 units Insulin Detemir (Levemir Vial) 40 units SQ HS [facility] Last Admin: 10/18/16 22:52 Dose: 40 units Magnesium Oxide (Mag-Ox -) 400 mg GT BID [facility] Last Admin: 10/19/16 10:00 Dose: 400 mg Miscellaneous (Duragesic Patch Waste) 1 each TD PRN PRN PRN Reason: PAIN Last Admin: 09/26/16 15:41 Dose: 1 each Ofloxacin (Ocuflox 0.3% Eye Drops -) 1 drop OD Q4HWA [facility] Last Admin: 10/19/16 10:00 Dose: 1 drop Potassium Chloride (Potassium Chloride Oral Liquid) 40 meq GT BID [facility] Last Admin: 10/19/16 09:59 Dose: 40 meq Prednisolone Acetate (Pred Forte 1% -) 1 drop OD BID [facility] Last Admin: 10/19/16 10:03 Dose: 1 drp Ranitidine HCl (Zantac Oral Solution -) 150 mg PO BID [facility] Last Admin: 10/19/16 12:00 Dose: 150 mg Gen: Awake, vented Heart: S1S2 Lung: bilateral scattered rhonchi Abd: soft, nontender, +fistula drainage, (+) Feeding tube Ext: multiple ulcers, dry gangrene of bilateral feet, fingers Laboratory Results - last 24 hr 10/18/16 10/18/16 10/19/16 17:21 22:49 06:19 POC Glucometer 137 192 197 10/19/16 11:27 POC Glucometer 166 IMP: Bibasilar atelectasis Perforated Duodenal Ulcer Peritonitis s/p ex-lap/omental patch repair 07/16 Enterocutaneous Fistula Acute Respiratory Failure s/p Tracheostomy s/p Septic Shock DM DVT Gangrene s/p PEA Cardiac Arrest - ABX Per ID - AC - Xanax PRN for periods of agitation - enteral feeds as tolerated - SBTs as tolerated - continued discussions regarding advanced directives and goals of care - recommend palliative/supportive care due to failure to wean, anticipated amputations, poor quality of life, evolving medical issues Dr Dubon
--- NOTE | 2016-10-19 13:01 | PN ---
Progress Note, Physician History of Present Illness: no new issues status quo breathing well - Current Medication List Current Medications: Active Medications Acetaminophen (Tylenol Oral Solution -) 650 mg PO Q4H PRN PRN Reason: FEVER OR PAIN Last Admin: 10/19/16 10:03 Dose: 650 mg Clotrimazole (Lotrisone Cream (Small Tube)) 1 applic TP BID [facility] Last Admin: 10/19/16 10:02 Dose: 1 applic Collagenase (Santyl -) 1 applic TP DAILY [facility] Last Admin: 10/19/16 09:59 Dose: 1 applic Dextrose (D50w (Vial) -) 50 gm IVPUSH Q15M PRN PRN Reason: BLOOD SUGAR < 60 Enoxaparin Sodium (Lovenox -) 40 mg SQ BID [facility] Last Admin: 10/19/16 10:00 Dose: 40 mg Furosemide (Lasix -) 20 mg GT DAILY [facility] Last Admin: 10/19/16 10:00 Dose: 20 mg IV Flush (Picc Line Flush) 8 ml IVPUSH PRN PRN PRN Reason: Protocol Ceftazidime 1 gm/ Dextrose 50 mls @ 100 mls/hr IVPB Q8H-IV [facility] PRN Reason: Protocol Last Admin: 10/19/16 10:02 Dose: 100 mls/hr Vancomycin HCl (Vancomycin (Pre-Docked)) 250 mls @ 166.667 mls/hr IVPB BID@1000 ,2200 [facility] PRN Reason: Protocol Last Admin: 10/19/16 12:00 Dose: 166.667 mls/hr Insulin Aspart (Novolog Vial Sliding Scale -) 1 vial SQ ACHS [facility] PRN Reason: Protocol Last Admin: 10/19/16 12:01 Dose: 4 units Insulin Detemir (Levemir Vial) 40 units SQ HS [facility] Last Admin: 10/18/16 22:52 Dose: 40 units Magnesium Oxide (Mag-Ox -) 400 mg GT BID [facility] Last Admin: 10/19/16 10:00 Dose: 400 mg Miscellaneous (Duragesic Patch Waste) 1 each TD PRN PRN PRN Reason: PAIN Last Admin: 09/26/16 15:41 Dose: 1 each Ofloxacin (Ocuflox 0.3% Eye Drops -) 1 drop OD Q4HWA [facility] Last Admin: 10/19/16 10:00 Dose: 1 drop Potassium Chloride (Potassium Chloride Oral Liquid) 40 meq GT BID [facility] Last Admin: 10/19/16 09:59 Dose: 40 meq Prednisolone Acetate (Pred Forte 1% -) 1 drop OD BID [facility] Last Admin: 10/19/16 10:03 Dose: 1 drp Ranitidine HCl (Zantac Oral Solution -) 150 mg PO BID [facility] Last Admin: 10/19/16 12:00 Dose: 150 mg - Objective Vital Signs: Vital Signs Temperature 97.9 F 10/19/16 10:00 Pulse Rate 88 10/19/16 10:00 Respiratory Rate 28 H 10/19/16 10:15 Blood Pressure 115/62 10/19/16 10:00 O2 Sat by Pulse Oximetry (%) 100 10/03/16 12:19 Constitutional: Yes: No Distress, Calm Neck: Yes: Other Cardiovascular: Yes: Regular Rate and Rhythm Respiratory: Yes: Regular, Mechanically Ventilated, Other (tracheostomy) Gastrointestinal: Yes: Normal Bowel Sounds, Soft, Other (peg in place) Musculoskeletal: Yes: Other (dry gangrene of the digits of the leg and hands) Extremities: Yes: Other Neurological: Yes: Alert Psychiatric: Yes: Alert Labs: CBC, BMP 10/15/16 07:00 10/15/16 07:00 INR, PTT INR 1.14 (0.82-1.09) 09/07/16 22:45 Fibrinogen > 700.0 mg/dL (238-498) H 07/31/16 05:40 Assessment/Plan Problem List - Problems (1) Abdominal pain Code(s): R10.9 - UNSPECIFIED ABDOMINAL PAIN Qualifiers: Qualified Code(s): R10.33 - Periumbilical pain (2) Perforated abdominal viscus Code(s): [id number] - (3) Perforated viscus Code(s): R19.8 - OTH SYMPTOMS AND SIGNS INVOLVING THE DGSTV SYS AND ABDOMEN (4) Hypertension Code(s): I10 - ESSENTIAL (PRIMARY) HYPERTENSION Qualifiers: Qualified Code(s): I10 - Essential (primary) hypertension lactic acidosis fevers generalized swelling gangrene of the tip of the fingers noted pseudomonas pneumonia plan continue current mgmt nutrition continue abx continue suctioning abx for 4 more days
--- NOTE | 2016-10-19 16:26 | PN ---
Progress Note, Physician Chief Complaint: No new complaints History of Present Illness: On respirator ,Weaning attempted - Current Medication List Current Medications: Active Medications Acetaminophen (Tylenol Oral Solution -) 650 mg PO Q4H PRN PRN Reason: FEVER OR PAIN Last Admin: 10/19/16 10:03 Dose: 650 mg Alprazolam (Xanax -) 0.5 mg PO Q8H PRN PRN Reason: AGITATION Clotrimazole (Lotrisone Cream (Small Tube)) 1 applic TP BID [facility] Last Admin: 10/19/16 10:02 Dose: 1 applic Collagenase (Santyl -) 1 applic TP DAILY [facility] Last Admin: 10/19/16 09:59 Dose: 1 applic Dextrose (D50w (Vial) -) 50 gm IVPUSH Q15M PRN PRN Reason: BLOOD SUGAR < 60 Enoxaparin Sodium (Lovenox -) 40 mg SQ BID [facility] Last Admin: 10/19/16 10:00 Dose: 40 mg Furosemide (Lasix -) 20 mg GT DAILY [facility] Last Admin: 10/19/16 10:00 Dose: 20 mg IV Flush (Picc Line Flush) 8 ml IVPUSH PRN PRN PRN Reason: Protocol Ceftazidime 1 gm/ Dextrose 50 mls @ 100 mls/hr IVPB Q8H-IV [facility] PRN Reason: Protocol Last Admin: 10/19/16 10:02 Dose: 100 mls/hr Vancomycin HCl (Vancomycin (Pre-Docked)) 250 mls @ 166.667 mls/hr IVPB BID@1000 ,2200 [facility] PRN Reason: Protocol Last Admin: 10/19/16 12:00 Dose: 166.667 mls/hr Insulin Aspart (Novolog Vial Sliding Scale -) 1 vial SQ ACHS [facility] PRN Reason: Protocol Last Admin: 10/19/16 12:01 Dose: 4 units Insulin Detemir (Levemir Vial) 40 units SQ HS [facility] Last Admin: 10/18/16 22:52 Dose: 40 units Magnesium Oxide (Mag-Ox -) 400 mg GT BID [facility] Last Admin: 10/19/16 10:00 Dose: 400 mg Miscellaneous (Duragesic Patch Waste) 1 each TD PRN PRN PRN Reason: PAIN Last Admin: 09/26/16 15:41 Dose: 1 each Ofloxacin (Ocuflox 0.3% Eye Drops -) 1 drop OD Q4HWA [facility] Last Admin: 10/19/16 13:46 Dose: 1 drop Potassium Chloride (Potassium Chloride Oral Liquid) 40 meq GT BID [facility] Last Admin: 10/19/16 09:59 Dose: 40 meq Prednisolone Acetate (Pred Forte 1% -) 1 drop OD BID [facility] Last Admin: 10/19/16 10:03 Dose: 1 drp Ranitidine HCl (Zantac Oral Solution -) 150 mg PO BID [facility] Last Admin: 10/19/16 12:00 Dose: 150 mg - Objective Vital Signs: Vital Signs Temperature 98.3 F 10/19/16 15:33 Pulse Rate 99 H 10/19/16 15:33 Respiratory Rate 18 10/19/16 15:33 Blood Pressure 130/94 10/19/16 15:33 O2 Sat by Pulse Oximetry (%) 100 10/03/16 12:19 Constitutional: Yes: Moderate Distress Eyes: Yes: WNL HENT: Yes: WNL Neck: Yes: WNL Cardiovascular: Yes: Regular Rate and Rhythm Respiratory: Yes: Mechanically Ventilated Gastrointestinal: Yes: Normal Bowel Sounds Genitourinary: Yes: Incontinence Musculoskeletal: Yes: Muscle Weakness Wound/Incision: Yes: Clean/Dry Neurological: Yes: Oriented Labs: CBC, BMP 10/15/16 07:00 10/15/16 07:00 INR, PTT INR 1.14 (0.82-1.09) 09/07/16 22:45 Fibrinogen > 700.0 mg/dL (238-498) H 07/31/16 05:40
[2016-10-19] MEDS: INSULIN DETEMIR 100 UNITS/ML MDV SQ SCH (21:32)
[2016-10-19] MEDS: ALPRAZolam 0.25 MG TABLET PO PRN (21:37)
[2016-10-20] MEDS: CEFTAZIDIME PENTAHYDRATE 1 GM in DEXTROSE 5%-WATER - 50 ML IVPB SCH ×3 (01:16→17:48)
[2016-10-20] MEDS ORDERED: PT OWN MED DRAWER 7, Y5N ONE ×2 (06:32→20:03)
[2016-10-20] MEDS: INSULIN SLIDING SCALE (NOVOLOG) 1 VIAL SQ SCH ×4 (06:37→22:37)
[2016-10-20] MEDS: OFLOXACIN 0.3% OPHTHALMIC SOLUTION 5 ML BOTTLE OD SCH ×5 (06:37→22:28)
[2016-10-20] MEDS: ALPRAZolam 0.25 MG TABLET PO PRN (07:56)
--- NOTE | 2016-10-20 09:26 | DS ---
Physical Examination Vital Signs: Vital Signs Temperature 99.2 F 10/20/16 06:00 Pulse Rate 80 10/20/16 06:00 Respiratory Rate 16 10/20/16 06:33 Blood Pressure 99/48 10/20/16 06:00 O2 Sat by Pulse Oximetry (%) 99 10/19/16 21:00 Findings/Remarks: Admitted to hospital with perforated duodenal ulcer Had surgery immediately Post op she was in septic shock,went into respiratory failure requiring tracheotomy She also developed gangrenous changes on hands and foot Constitutional: Yes: Calm Eyes: Yes: WNL HENT: Yes: WNL Neck: Yes: WNL, Thyromegaly, Other (traquostomy) Respiratory: Yes: Mechanically Ventilated Gastrointestinal: Yes: WNL ...Rectal Exam: Yes: Deferred Renal/: Yes: WNL Neurological: Yes: Alert Labs: CBC, BMP 10/15/16 07:00 10/15/16 07:00 Discharge Summary Reason For Visit: ABD PAIN,JAUNDICE Current Active Problems ZAHIRA (acute kidney injury) (Acute) Abdominal pain (Acute) Acute metabolic encephalopathy (Acute) Acute respiratory failure (Acute) Anemia (Acute) Cardiac arrest due to respiratory disorder (Acute) Diabetes mellitus (Acute) Hepatic abscess (Acute) Hypertension (Acute) Hypokalemia (Acute) Hypomagnesemia (Acute) Ischemia of extremity (Acute) Jaundice (Acute) Metabolic acidemia (Acute) Metabolic acidosis (Acute) Perforated abdominal viscus (Acute) Perforated viscus (Acute) Pseudomonas pneumonia (Acute) Respiratory failure (Acute) Sepsis (Acute) Severe malnutrition (Acute) Thrombocytopenia (Acute) Ventilator dependence (Acute) Condition: Guarded - Instructions Referrals: Larry Miranda MD [Primary Care Provider] - - Home Medications Comprehensive Discharge Medication List: Ambulatory Orders Glipizide Xl [Glucotrol Xl -] 5 mg PO DAILY 01/30/16 Lisinopril [Zestril] 30 mg PO DAILY 01/30/16 Metformin HCl [Metformin HCl ER] 1,000 mg PO BIDAC 01/30/16 Simvastatin 10 mg PO HS 01/30/16 Aspirin Coated [Ecotrin -] 81 mg PO DAILY 04/15/16
[2016-10-20] MEDS: FUROSEMIDE 20 MG TABLET (FP) GT SCH (10:14)
[2016-10-20] MEDS: MAGNESIUM OXIDE 400 MG TABLET (FP) GT SCH ×2 (10:14→22:28)
[2016-10-20] MEDS: RANITIDINE HCL 150 MG/10 ML UNIT-DOSE CUP PO SCH ×2 (10:15→22:30)
[2016-10-20] MEDS: ENOXAPARIN NA (PORCINE) 40 MG/0.4 ML DISP.SYRIN SQ SCH ×2 (10:15→22:28)
[2016-10-20] MEDS: POTASSIUM CHLORIDE ORAL LIQUID 20 MEQ/15 ML GT SCH ×2 (10:15→22:29)
[2016-10-20] MEDS: prednisoLONE ACETATE 1% OPHTH SUSP 5 ML BOTTLE OD SCH ×2 (10:23→22:29)
[2016-10-20] MEDS: CLOTRIMAZOLE/BETAMET DIPROP 15 GM TUBE TP SCH ×2 (10:24→22:27)
[2016-10-20] MEDS ORDERED: INSULIN (NOVOLOG) ASPART 100 UNITS/ML 10ML VIAL ONE ×2 (11:26→20:03)
--- NOTE | 2016-10-20 11:29 | PN ---
Progress Note (short form) - Note Progress Note: PULMONARY Vented on volume assist control. Remains poorly responsive but more alert today. No fevers recorded. Last Vital Signs Temp Pulse Resp BP Pulse Ox 99.2 F 80 16 99/48 99 10/20/16 06:00 10/20/16 06:00 10/20/16 09:16 10/20/16 06:00 10/19/16 21:00 Gen: vented, poorly responsive Heart: tachycardic, regular Lung: bilateral rhonchi Abd: soft, nontender, +fistula drainage Ext: multiple ulcers, dry gangrene of bilateral feet, fingers CBC, BMP 10/15/16 07:00 10/15/16 07:00 Active Medications Acetaminophen (Tylenol Oral Solution -) 650 mg PO Q4H PRN PRN Reason: FEVER OR PAIN Last Admin: 10/19/16 10:03 Dose: 650 mg Alprazolam (Xanax -) 0.5 mg PO Q8H PRN PRN Reason: AGITATION Last Admin: 10/20/16 07:56 Dose: 0.5 mg Clotrimazole (Lotrisone Cream (Small Tube)) 1 applic TP BID [facility] Last Admin: 10/20/16 10:24 Dose: 1 applic Collagenase (Santyl -) 1 applic TP DAILY [facility] Last Admin: 10/19/16 09:59 Dose: 1 applic Dextrose (D50w (Vial) -) 50 gm IVPUSH Q15M PRN PRN Reason: BLOOD SUGAR < 60 Enoxaparin Sodium (Lovenox -) 40 mg SQ BID [facility] Last Admin: 10/20/16 10:15 Dose: 40 mg Furosemide (Lasix -) 20 mg GT DAILY [facility] Last Admin: 10/20/16 10:14 Dose: 20 mg IV Flush (Picc Line Flush) 8 ml IVPUSH PRN PRN PRN Reason: Protocol Ceftazidime 1 gm/ Dextrose 50 mls @ 100 mls/hr IVPB Q8H-IV [facility] PRN Reason: Protocol Last Admin: 10/20/16 10:15 Dose: 100 mls/hr Vancomycin HCl (Vancomycin (Pre-Docked)) 250 mls @ 166.667 mls/hr IVPB BID@1000 ,2200 [facility] PRN Reason: Protocol Last Admin: 10/19/16 21:36 Dose: 166.667 mls/hr Insulin Aspart (Novolog Vial Sliding Scale -) 1 vial SQ ACHS [facility] PRN Reason: Protocol Last Admin: 10/20/16 06:37 Dose: Not Given Insulin Detemir (Levemir Vial) 40 units SQ HS [facility] Last Admin: 10/19/16 21:32 Dose: 40 units Magnesium Oxide (Mag-Ox -) 400 mg GT BID [facility] Last Admin: 10/20/16 10:14 Dose: 400 mg Miscellaneous (Duragesic Patch Waste) 1 each TD PRN PRN PRN Reason: PAIN Last Admin: 09/26/16 15:41 Dose: 1 each Ofloxacin (Ocuflox 0.3% Eye Drops -) 1 drop OD Q4HWA [facility] Last Admin: 10/20/16 10:24 Dose: 1 drop Potassium Chloride (Potassium Chloride Oral Liquid) 40 meq GT BID [facility] Last Admin: 10/20/16 10:15 Dose: 40 meq Prednisolone Acetate (Pred Forte 1% -) 1 drop OD BID [facility] Last Admin: 10/20/16 10:23 Dose: 1 drp Ranitidine HCl (Zantac Oral Solution -) 150 mg PO BID [facility] Last Admin: 10/20/16 10:15 Dose: 150 mg A/P Perforated Duodenal Ulcer Peritonitis s/p ex-lap/omental patch repair 07/16 Enterocutaneous Fistula Acute Respiratory Failure s/p Tracheostomy s/p Septic Shock DM DVT Gangrene s/p PEA Cardiac Arrest - continue anticoagulation - morphine for comfort - enteral feeds as tolerated - spontaneous breathing trials as tolerated but poor candidate for weaning - DVT/GI prophylaxis - prognosis is poor, continue discussions regarding advanced directives and goals of care - recommend palliative due to failure to wean, anticipated amputations, poor quality of life - d/c planning in progress
[2016-10-20] MEDS: VANCOMYCIN 1 GRAM (PRE-DOCKED) 250 ML IVPB SCH ×2 (13:12→22:29)
[2016-10-20] MEDS: COLLAGENASE CLOSTRIDIUM HIST. 30 GRAMS TUBE TP SCH (15:22)
--- NOTE | 2016-10-20 16:00 | PN ---
Progress Note, Physician History of Present Illness: stable no new issues no changes picc line placed - Current Medication List Current Medications: Active Medications Acetaminophen (Tylenol Oral Solution -) 650 mg PO Q4H PRN PRN Reason: FEVER OR PAIN Last Admin: 10/19/16 10:03 Dose: 650 mg Alprazolam (Xanax -) 0.5 mg PO Q8H PRN PRN Reason: AGITATION Last Admin: 10/20/16 07:56 Dose: 0.5 mg Clotrimazole (Lotrisone Cream (Small Tube)) 1 applic TP BID [facility] Last Admin: 10/20/16 10:24 Dose: 1 applic Collagenase (Santyl -) 1 applic TP DAILY [facility] Last Admin: 10/20/16 15:22 Dose: 1 applic Dextrose (D50w (Vial) -) 50 gm IVPUSH Q15M PRN PRN Reason: BLOOD SUGAR < 60 Enoxaparin Sodium (Lovenox -) 40 mg SQ BID [facility] Last Admin: 10/20/16 10:15 Dose: 40 mg Furosemide (Lasix -) 20 mg GT DAILY [facility] Last Admin: 10/20/16 10:14 Dose: 20 mg IV Flush (Picc Line Flush) 8 ml IVPUSH PRN PRN PRN Reason: Protocol Ceftazidime 1 gm/ Dextrose 50 mls @ 100 mls/hr IVPB Q8H-IV [facility] PRN Reason: Protocol Last Admin: 10/20/16 10:15 Dose: 100 mls/hr Vancomycin HCl (Vancomycin (Pre-Docked)) 250 mls @ 166.667 mls/hr IVPB BID@1000 ,2200 [facility] PRN Reason: Protocol Last Admin: 10/20/16 13:12 Dose: 166.667 mls/hr Insulin Aspart (Novolog Vial Sliding Scale -) 1 vial SQ ACHS [facility] PRN Reason: Protocol Last Admin: 10/20/16 13:13 Dose: Not Given Insulin Detemir (Levemir Vial) 40 units SQ HS [facility] Last Admin: 10/19/16 21:32 Dose: 40 units Magnesium Oxide (Mag-Ox -) 400 mg GT BID [facility] Last Admin: 10/20/16 10:14 Dose: 400 mg Miscellaneous (Duragesic Patch Waste) 1 each TD PRN PRN PRN Reason: PAIN Last Admin: 09/26/16 15:41 Dose: 1 each Ofloxacin (Ocuflox 0.3% Eye Drops -) 1 drop OD Q4HWA [facility] Last Admin: 10/20/16 13:13 Dose: 1 drop Potassium Chloride (Potassium Chloride Oral Liquid) 40 meq GT BID [facility] Last Admin: 10/20/16 10:15 Dose: 40 meq Prednisolone Acetate (Pred Forte 1% -) 1 drop OD BID [facility] Last Admin: 10/20/16 10:23 Dose: 1 drp Ranitidine HCl (Zantac Oral Solution -) 150 mg PO BID [facility] Last Admin: 10/20/16 10:15 Dose: 150 mg - Objective Vital Signs: Vital Signs Temperature 98.2 F 10/20/16 15:51 Pulse Rate 71 10/20/16 15:51 Respiratory Rate 16 10/20/16 15:51 Blood Pressure 105/52 10/20/16 15:51 O2 Sat by Pulse Oximetry (%) 99 10/19/16 21:00 Constitutional: Yes: No Distress, Calm Cardiovascular: Yes: Regular Rate and Rhythm Respiratory: Yes: Regular, Mechanically Ventilated Gastrointestinal: Yes: Normal Bowel Sounds, Soft, Other (peg in place) Musculoskeletal: Yes: Other Extremities: Yes: Other (gangrene of the toes and hands) Neurological: Yes: Alert Labs: CBC, BMP 10/15/16 07:00 10/15/16 07:00 INR, PTT INR 1.14 (0.82-1.09) 09/07/16 22:45 Fibrinogen > 700.0 mg/dL (238-498) H 07/31/16 05:40 Assessment/Plan Problem List - Problems (1) Abdominal pain Code(s): R10.9 - UNSPECIFIED ABDOMINAL PAIN Qualifiers: Qualified Code(s): R10.33 - Periumbilical pain (2) Perforated abdominal viscus Code(s): [id number] - (3) Perforated viscus Code(s): R19.8 - OTH SYMPTOMS AND SIGNS INVOLVING THE DGSTV SYS AND ABDOMEN (4) Hypertension Code(s): I10 - ESSENTIAL (PRIMARY) HYPERTENSION Qualifiers: Qualified Code(s): I10 - Essential (primary) hypertension lactic acidosis fevers generalized swelling gangrene of the tip of the fingers noted pseudomonas pneumonia plan continue current mgmt nutrition continue abx continue suctioning abx for 3 more days
[2016-10-20] MEDS: INSULIN DETEMIR 100 UNITS/ML MDV SQ SCH (22:35)
[2016-10-21] MEDS ORDERED: PT OWN MED DRAWER 7, Y5N ONE ×4 (02:20→17:30)
[2016-10-21] MEDS: CEFTAZIDIME PENTAHYDRATE 1 GM in DEXTROSE 5%-WATER - 50 ML IVPB SCH ×3 (02:24→17:34)
[2016-10-21] MEDS: OFLOXACIN 0.3% OPHTHALMIC SOLUTION 5 ML BOTTLE OD SCH ×4 (06:08→17:34)
[2016-10-21] MEDS: INSULIN SLIDING SCALE (NOVOLOG) 1 VIAL SQ SCH ×3 (06:10→17:36)
[2016-10-21] MEDS: RANITIDINE HCL 150 MG/10 ML UNIT-DOSE CUP PO SCH (10:21)
[2016-10-21] MEDS: POTASSIUM CHLORIDE ORAL LIQUID 20 MEQ/15 ML GT SCH (10:21)
[2016-10-21] MEDS: VANCOMYCIN 1 GRAM (PRE-DOCKED) 250 ML IVPB SCH (10:21)
[2016-10-21] MEDS: ALPRAZolam 0.25 MG TABLET PO PRN (10:22)
[2016-10-21] MEDS: FUROSEMIDE 20 MG TABLET (FP) GT SCH (10:22)
[2016-10-21] MEDS: MAGNESIUM OXIDE 400 MG TABLET (FP) GT SCH (10:22)
[2016-10-21] MEDS: ENOXAPARIN NA (PORCINE) 40 MG/0.4 ML DISP.SYRIN SQ SCH (10:23)
[2016-10-21] MEDS: CLOTRIMAZOLE/BETAMET DIPROP 15 GM TUBE TP SCH (10:24)
[2016-10-21] MEDS: prednisoLONE ACETATE 1% OPHTH SUSP 5 ML BOTTLE OD SCH (10:26)
[2016-10-21] MEDS: COLLAGENASE CLOSTRIDIUM HIST. 30 GRAMS TUBE TP SCH (10:27)
[2016-10-21] MEDS ORDERED: INSULIN (NOVOLOG) ASPART 100 UNITS/ML 10ML VIAL ONE (11:07)
--- NOTE | 2016-10-21 11:54 | PN ---
Progress Note (short form) - Note Progress Note: PULMONARY Vented on volume assist control. Remains poorly responsive. No fevers recorded. Last Vital Signs Temp Pulse Resp BP Pulse Ox 98.1 F 83 21 127/58 99 10/21/16 10:00 10/21/16 10:00 10/21/16 10:15 10/21/16 10:00 10/19/16 21:00 Gen: vented, poorly responsive Heart: tachycardic, regular Lung: bilateral rhonchi Abd: soft, nontender, +fistula drainage Ext: multiple ulcers, dry gangrene of bilateral feet, fingers CBC, BMP 10/15/16 07:00 10/15/16 07:00 Active Medications Acetaminophen (Tylenol Oral Solution -) 650 mg PO Q4H PRN PRN Reason: FEVER OR PAIN Last Admin: 10/19/16 10:03 Dose: 650 mg Alprazolam (Xanax -) 0.5 mg PO Q8H PRN PRN Reason: AGITATION Last Admin: 10/21/16 10:22 Dose: 0.5 mg Clotrimazole (Lotrisone Cream (Small Tube)) 1 applic TP BID [facility] Last Admin: 10/21/16 10:24 Dose: 1 applic Collagenase (Santyl -) 1 applic TP DAILY [facility] Last Admin: 10/21/16 10:27 Dose: 1 applic Dextrose (D50w (Vial) -) 50 gm IVPUSH Q15M PRN PRN Reason: BLOOD SUGAR < 60 Enoxaparin Sodium (Lovenox -) 40 mg SQ BID [facility] Last Admin: 10/21/16 10:23 Dose: 40 mg Furosemide (Lasix -) 20 mg GT DAILY [facility] Last Admin: 10/21/16 10:22 Dose: 20 mg IV Flush (Picc Line Flush) 8 ml IVPUSH PRN PRN PRN Reason: Protocol Ceftazidime 1 gm/ Dextrose 50 mls @ 100 mls/hr IVPB Q8H-IV [facility] PRN Reason: Protocol Last Admin: 10/21/16 10:21 Dose: 100 mls/hr Vancomycin HCl (Vancomycin (Pre-Docked)) 250 mls @ 166.667 mls/hr IVPB BID@1000 ,2200 [facility] PRN Reason: Protocol Last Admin: 10/21/16 10:21 Dose: 166.667 mls/hr Insulin Aspart (Novolog Vial Sliding Scale -) 1 vial SQ ACHS [facility] PRN Reason: Protocol Last Admin: 10/21/16 11:24 Dose: 4 units Insulin Detemir (Levemir Vial) 40 units SQ HS [facility] Last Admin: 10/20/16 22:35 Dose: 40 units Magnesium Oxide (Mag-Ox -) 400 mg GT BID [facility] Last Admin: 10/21/16 10:22 Dose: 400 mg Miscellaneous (Duragesic Patch Waste) 1 each TD PRN PRN PRN Reason: PAIN Last Admin: 09/26/16 15:41 Dose: 1 each Ofloxacin (Ocuflox 0.3% Eye Drops -) 1 drop OD Q4HWA [facility] Last Admin: 10/21/16 10:25 Dose: 1 drop Potassium Chloride (Potassium Chloride Oral Liquid) 40 meq GT BID [facility] Last Admin: 10/21/16 10:21 Dose: 40 meq Prednisolone Acetate (Pred Forte 1% -) 1 drop OD BID [facility] Last Admin: 10/21/16 10:26 Dose: 1 drp Ranitidine HCl (Zantac Oral Solution -) 150 mg PO BID [facility] Last Admin: 10/21/16 10:21 Dose: 150 mg A/P Perforated Duodenal Ulcer Peritonitis s/p ex-lap/omental patch repair 07/16 Enterocutaneous Fistula Acute Respiratory Failure s/p Tracheostomy s/p Septic Shock DM DVT Gangrene s/p PEA Cardiac Arrest - continue anticoagulation - morphine for comfort - enteral feeds as tolerated - spontaneous breathing trials as tolerated but poor candidate for weaning - DVT/GI prophylaxis - prognosis is poor, continue discussions regarding advanced directives and goals of care - recommend palliative due to failure to wean, anticipated amputations, poor quality of life - d/c planning in progress
--- NOTE | 2016-10-21 14:18 | PN ---
Progress Note, Physician History of Present Illness: stable no new issues - Current Medication List Current Medications: Active Medications Acetaminophen (Tylenol Oral Solution -) 650 mg PO Q4H PRN PRN Reason: FEVER OR PAIN Last Admin: 10/19/16 10:03 Dose: 650 mg Alprazolam (Xanax -) 0.5 mg PO Q8H PRN PRN Reason: AGITATION Last Admin: 10/21/16 10:22 Dose: 0.5 mg Clotrimazole (Lotrisone Cream (Small Tube)) 1 applic TP BID [facility] Last Admin: 10/21/16 10:24 Dose: 1 applic Collagenase (Santyl -) 1 applic TP DAILY [facility] Last Admin: 10/21/16 10:27 Dose: 1 applic Dextrose (D50w (Vial) -) 50 gm IVPUSH Q15M PRN PRN Reason: BLOOD SUGAR < 60 Enoxaparin Sodium (Lovenox -) 40 mg SQ BID [facility] Last Admin: 10/21/16 10:23 Dose: 40 mg Furosemide (Lasix -) 20 mg GT DAILY [facility] Last Admin: 10/21/16 10:22 Dose: 20 mg IV Flush (Picc Line Flush) 8 ml IVPUSH PRN PRN PRN Reason: Protocol Ceftazidime 1 gm/ Dextrose 50 mls @ 100 mls/hr IVPB Q8H-IV [facility] PRN Reason: Protocol Last Admin: 10/21/16 10:21 Dose: 100 mls/hr Vancomycin HCl (Vancomycin (Pre-Docked)) 250 mls @ 166.667 mls/hr IVPB BID@1000 ,2200 [facility] PRN Reason: Protocol Last Admin: 10/21/16 10:21 Dose: 166.667 mls/hr Insulin Aspart (Novolog Vial Sliding Scale -) 1 vial SQ ACHS [facility] PRN Reason: Protocol Last Admin: 10/21/16 11:24 Dose: 4 units Insulin Detemir (Levemir Vial) 40 units SQ HS [facility] Last Admin: 10/20/16 22:35 Dose: 40 units Magnesium Oxide (Mag-Ox -) 400 mg GT BID [facility] Last Admin: 10/21/16 10:22 Dose: 400 mg Miscellaneous (Duragesic Patch Waste) 1 each TD PRN PRN PRN Reason: PAIN Last Admin: 09/26/16 15:41 Dose: 1 each Ofloxacin (Ocuflox 0.3% Eye Drops -) 1 drop OD Q4HWA [facility] Last Admin: 10/21/16 13:48 Dose: 1 drop Potassium Chloride (Potassium Chloride Oral Liquid) 40 meq GT BID [facility] Last Admin: 10/21/16 10:21 Dose: 40 meq Prednisolone Acetate (Pred Forte 1% -) 1 drop OD BID [facility] Last Admin: 10/21/16 10:26 Dose: 1 drp Ranitidine HCl (Zantac Oral Solution -) 150 mg PO BID [facility] Last Admin: 10/21/16 10:21 Dose: 150 mg - Objective Vital Signs: Vital Signs Temperature 98.1 F 10/21/16 10:00 Pulse Rate 83 10/21/16 10:00 Respiratory Rate 21 10/21/16 10:15 Blood Pressure 127/58 10/21/16 10:00 O2 Sat by Pulse Oximetry (%) 99 10/19/16 21:00 Constitutional: Yes: No Distress, Calm Cardiovascular: Yes: Regular Rate and Rhythm Respiratory: Yes: Mechanically Ventilated, Other (trach) Gastrointestinal: Yes: Normal Bowel Sounds, Soft, Other (peg in place) Musculoskeletal: Yes: WNL Extremities: Yes: Other (dry gangrene) Integumentary: Yes: Other Wound/Incision: Yes: Other Neurological: Yes: Alert Psychiatric: Yes: Alert Labs: CBC, BMP 10/15/16 07:00 10/15/16 07:00 INR, PTT INR 1.14 (0.82-1.09) 09/07/16 22:45 Fibrinogen > 700.0 mg/dL (238-498) H 07/31/16 05:40 Assessment/Plan Problem List - Problems (1) Abdominal pain Code(s): R10.9 - UNSPECIFIED ABDOMINAL PAIN Qualifiers: Qualified Code(s): R10.33 - Periumbilical pain (2) Perforated abdominal viscus Code(s): [id number] - (3) Perforated viscus Code(s): R19.8 - OTH SYMPTOMS AND SIGNS INVOLVING THE DGSTV SYS AND ABDOMEN (4) Hypertension Code(s): I10 - ESSENTIAL (PRIMARY) HYPERTENSION Qualifiers: Qualified Code(s): I10 - Essential (primary) hypertension lactic acidosis fevers generalized swelling gangrene of the tip of the fingers noted pseudomonas pneumonia plan continue current mgmt nutrition continue abx continue suctioning abx for 2 more days
[2016-10-22] MEDS ORDERED: PT OWN MED DRAWER 7, Y5N ONE ×5 (00:24→19:00)
[2016-10-22] MEDS: MAGNESIUM OXIDE 400 MG TABLET (FP) GT SCH ×3 (00:29→22:29)
[2016-10-22] MEDS: POTASSIUM CHLORIDE ORAL LIQUID 20 MEQ/15 ML GT SCH ×3 (00:29→22:30)
[2016-10-22] MEDS: VANCOMYCIN 1 GRAM (PRE-DOCKED) 250 ML IVPB SCH ×3 (00:30→22:30)
[2016-10-22] MEDS: CLOTRIMAZOLE/BETAMET DIPROP 15 GM TUBE TP SCH ×3 (00:30→22:25)
[2016-10-22] MEDS: ENOXAPARIN NA (PORCINE) 40 MG/0.4 ML DISP.SYRIN SQ SCH ×3 (00:30→22:27)
[2016-10-22] MEDS: OFLOXACIN 0.3% OPHTHALMIC SOLUTION 5 ML BOTTLE OD SCH ×6 (00:31→22:30)
[2016-10-22] MEDS: prednisoLONE ACETATE 1% OPHTH SUSP 5 ML BOTTLE OD SCH ×3 (00:31→22:30)
[2016-10-22] MEDS: INSULIN DETEMIR 100 UNITS/ML MDV SQ SCH ×2 (00:32→22:25)
[2016-10-22] MEDS: INSULIN SLIDING SCALE (NOVOLOG) 1 VIAL SQ SCH ×5 (00:39→22:29)
[2016-10-22] MEDS: RANITIDINE HCL 150 MG/10 ML UNIT-DOSE CUP PO SCH ×3 (00:39→22:43)
[2016-10-22] MEDS: CEFTAZIDIME PENTAHYDRATE 1 GM in DEXTROSE 5%-WATER - 50 ML IVPB SCH ×3 (02:48→19:01)
--- NOTE | 2016-10-22 09:13 | PN ---
Progress Note, Physician Chief Complaint: Awaiting transfer - Current Medication List Current Medications: Active Medications Acetaminophen (Tylenol Oral Solution -) 650 mg PO Q4H PRN PRN Reason: FEVER OR PAIN Last Admin: 10/19/16 10:03 Dose: 650 mg Alprazolam (Xanax -) 0.5 mg PO Q8H PRN PRN Reason: AGITATION Last Admin: 10/21/16 10:22 Dose: 0.5 mg Clotrimazole (Lotrisone Cream (Small Tube)) 1 applic TP BID [facility] Last Admin: 10/22/16 00:30 Dose: 1 applic Collagenase (Santyl -) 1 applic TP DAILY [facility] Last Admin: 10/21/16 10:27 Dose: 1 applic Dextrose (D50w (Vial) -) 50 gm IVPUSH Q15M PRN PRN Reason: BLOOD SUGAR < 60 Enoxaparin Sodium (Lovenox -) 40 mg SQ BID [facility] Last Admin: 10/22/16 00:30 Dose: 40 mg Furosemide (Lasix -) 20 mg GT DAILY [facility] Last Admin: 10/21/16 10:22 Dose: 20 mg IV Flush (Picc Line Flush) 8 ml IVPUSH PRN PRN PRN Reason: Protocol Ceftazidime 1 gm/ Dextrose 50 mls @ 100 mls/hr IVPB Q8H-IV [facility] PRN Reason: Protocol Last Admin: 10/22/16 02:48 Dose: 100 mls/hr Vancomycin HCl (Vancomycin (Pre-Docked)) 250 mls @ 166.667 mls/hr IVPB BID@1000 ,2200 [facility] PRN Reason: Protocol Last Admin: 10/22/16 00:30 Dose: 166.667 mls/hr Insulin Aspart (Novolog Vial Sliding Scale -) 1 vial SQ ACHS [facility] PRN Reason: Protocol Last Admin: 10/22/16 06:00 Dose: 4 units Insulin Detemir (Levemir Vial) 40 units SQ HS [facility] Last Admin: 10/22/16 00:32 Dose: 40 units Magnesium Oxide (Mag-Ox -) 400 mg GT BID [facility] Last Admin: 10/22/16 00:29 Dose: 400 mg Miscellaneous (Duragesic Patch Waste) 1 each TD PRN PRN PRN Reason: PAIN Last Admin: 09/26/16 15:41 Dose: 1 each Ofloxacin (Ocuflox 0.3% Eye Drops -) 1 drop OD Q4HWA [facility] Last Admin: 10/22/16 05:53 Dose: 1 drop Potassium Chloride (Potassium Chloride Oral Liquid) 40 meq GT BID [facility] Last Admin: 10/22/16 00:29 Dose: 40 meq Prednisolone Acetate (Pred Forte 1% -) 1 drop OD BID [facility] Last Admin: 10/22/16 00:31 Dose: 1 drp Ranitidine HCl (Zantac Oral Solution -) 150 mg PO BID [facility] Last Admin: 10/22/16 00:39 Dose: 150 mg - Objective Vital Signs: Vital Signs Temperature 97.7 F 10/22/16 06:00 Pulse Rate 78 10/22/16 06:00 Respiratory Rate 20 10/22/16 07:00 Blood Pressure 104/55 10/22/16 06:00 O2 Sat by Pulse Oximetry (%) 99 10/19/16 21:00 Constitutional: Yes: No Distress Eyes: Yes: WNL HENT: Yes: WNL Neck: Yes: WNL Cardiovascular: Yes: WNL Respiratory: Yes: Mechanically Ventilated Gastrointestinal: Yes: Normal Bowel Sounds ...Rectal Exam: Yes: Deferred Genitourinary: Yes: Incontinence Edema: No Wound/Incision: Yes: Clean/Dry Labs: CBC, BMP 10/15/16 07:00 10/15/16 07:00 INR, PTT INR 1.14 (0.82-1.09) 09/07/16 22:45 Fibrinogen > 700.0 mg/dL (238-498) H 07/31/16 05:40 Assessment/Plan If bed available She will go
[2016-10-22] MEDS: FUROSEMIDE 20 MG TABLET (FP) GT SCH (11:00)
[2016-10-22] MEDS: PICC LINE 8 ML FLUSH PROTOCOL IVPUSH PRN ×3 (11:19→19:05)
--- NOTE | 2016-10-22 11:58 | PN ---
Progress Note (short form) - Note Progress Note: PULMONARY Remains afebrile. Vented on volume assist control. Remains poorly responsive. Last Vital Signs Temp Pulse Resp BP Pulse Ox 97.7 F 78 20 104/55 99 10/22/16 06:00 10/22/16 06:00 10/22/16 07:00 10/22/16 06:00 10/19/16 21:00 Gen: vented, poorly responsive Heart: RRR Lung: bilateral rhonchi Abd: soft, nontender, +fistula drainage Ext: multiple ulcers, dry gangrene of bilateral feet, fingers CBC, BMP 10/15/16 07:00 10/15/16 07:00 Active Medications Acetaminophen (Tylenol Oral Solution -) 650 mg PO Q4H PRN PRN Reason: FEVER OR PAIN Last Admin: 10/19/16 10:03 Dose: 650 mg Alprazolam (Xanax -) 0.5 mg PO Q8H PRN PRN Reason: AGITATION Last Admin: 10/21/16 10:22 Dose: 0.5 mg Clotrimazole (Lotrisone Cream (Small Tube)) 1 applic TP BID [facility] Last Admin: 10/22/16 00:30 Dose: 1 applic Collagenase (Santyl -) 1 applic TP DAILY [facility] Last Admin: 10/21/16 10:27 Dose: 1 applic Dextrose (D50w (Vial) -) 50 gm IVPUSH Q15M PRN PRN Reason: BLOOD SUGAR < 60 Enoxaparin Sodium (Lovenox -) 40 mg SQ BID [facility] Last Admin: 10/22/16 00:30 Dose: 40 mg Furosemide (Lasix -) 20 mg GT DAILY [facility] Last Admin: 10/21/16 10:22 Dose: 20 mg IV Flush (Picc Line Flush) 8 ml IVPUSH PRN PRN PRN Reason: Protocol Ceftazidime 1 gm/ Dextrose 50 mls @ 100 mls/hr IVPB Q8H-IV [facility] PRN Reason: Protocol Last Admin: 10/22/16 02:48 Dose: 100 mls/hr Vancomycin HCl (Vancomycin (Pre-Docked)) 250 mls @ 166.667 mls/hr IVPB BID@1000 ,2200 [facility] PRN Reason: Protocol Last Admin: 10/22/16 00:30 Dose: 166.667 mls/hr Insulin Aspart (Novolog Vial Sliding Scale -) 1 vial SQ ACHS [facility] PRN Reason: Protocol Last Admin: 10/22/16 06:00 Dose: 4 units Insulin Detemir (Levemir Vial) 40 units SQ HS [facility] Last Admin: 10/22/16 00:32 Dose: 40 units Magnesium Oxide (Mag-Ox -) 400 mg GT BID [facility] Last Admin: 10/22/16 00:29 Dose: 400 mg Miscellaneous (Duragesic Patch Waste) 1 each TD PRN PRN PRN Reason: PAIN Last Admin: 09/26/16 15:41 Dose: 1 each Ofloxacin (Ocuflox 0.3% Eye Drops -) 1 drop OD Q4HWA [facility] Last Admin: 10/22/16 05:53 Dose: 1 drop Potassium Chloride (Potassium Chloride Oral Liquid) 40 meq GT BID [facility] Last Admin: 10/22/16 00:29 Dose: 40 meq Prednisolone Acetate (Pred Forte 1% -) 1 drop OD BID [facility] Last Admin: 10/22/16 00:31 Dose: 1 drp Ranitidine HCl (Zantac Oral Solution -) 150 mg PO BID [facility] Last Admin: 10/22/16 00:39 Dose: 150 mg A/P Perforated Duodenal Ulcer Peritonitis s/p ex-lap/omental patch repair 07/16 Enterocutaneous Fistula Acute Respiratory Failure s/p Tracheostomy s/p Septic Shock DM DVT Gangrene s/p PEA Cardiac Arrest - continue anticoagulation - enteral feeds as tolerated - spontaneous breathing trials as tolerated but poor candidate for weaning - DVT/GI prophylaxis - prognosis is poor, continue discussions regarding advanced directives and goals of care - recommend palliative due to failure to wean, anticipated amputations, poor quality of life - d/c planning in progress
[2016-10-22] MEDS: COLLAGENASE CLOSTRIDIUM HIST. 30 GRAMS TUBE TP SCH (12:17)
--- NOTE | 2016-10-22 15:14 | PN ---
Progress Note, Physician History of Present Illness: stable no new issues - Current Medication List Current Medications: Active Medications Acetaminophen (Tylenol Oral Solution -) 650 mg PO Q4H PRN PRN Reason: FEVER OR PAIN Last Admin: 10/19/16 10:03 Dose: 650 mg Clotrimazole (Lotrisone Cream (Small Tube)) 1 applic TP BID [facility] Last Admin: 10/22/16 11:00 Dose: 1 applic Collagenase (Santyl -) 1 applic TP DAILY [facility] Last Admin: 10/22/16 12:17 Dose: 1 applic Dextrose (D50w (Vial) -) 50 gm IVPUSH Q15M PRN PRN Reason: BLOOD SUGAR < 60 Enoxaparin Sodium (Lovenox -) 40 mg SQ BID [facility] Last Admin: 10/22/16 11:00 Dose: 40 mg Furosemide (Lasix -) 20 mg GT DAILY [facility] Last Admin: 10/22/16 11:00 Dose: 20 mg IV Flush (Picc Line Flush) 8 ml IVPUSH PRN PRN PRN Reason: Protocol Last Admin: 10/22/16 14:32 Dose: 8 ml Ceftazidime 1 gm/ Dextrose 50 mls @ 100 mls/hr IVPB Q8H-IV [facility] PRN Reason: Protocol Last Admin: 10/22/16 11:00 Dose: 100 mls/hr Vancomycin HCl (Vancomycin (Pre-Docked)) 250 mls @ 166.667 mls/hr IVPB BID@1000 ,2200 [facility] PRN Reason: Protocol Last Admin: 10/22/16 11:00 Dose: 166.667 mls/hr Insulin Aspart (Novolog Vial Sliding Scale -) 1 vial SQ ACHS [facility] PRN Reason: Protocol Last Admin: 10/22/16 12:23 Dose: Not Given Insulin Detemir (Levemir Vial) 40 units SQ HS [facility] Last Admin: 10/22/16 00:32 Dose: 40 units Magnesium Oxide (Mag-Ox -) 400 mg GT BID [facility] Last Admin: 10/22/16 11:00 Dose: 400 mg Miscellaneous (Duragesic Patch Waste) 1 each TD PRN PRN PRN Reason: PAIN Last Admin: 09/26/16 15:41 Dose: 1 each Ofloxacin (Ocuflox 0.3% Eye Drops -) 1 drop OD Q4HWA [facility] Last Admin: 10/22/16 11:00 Dose: 1 drop Potassium Chloride (Potassium Chloride Oral Liquid) 40 meq GT BID [facility] Last Admin: 10/22/16 11:00 Dose: 40 meq Prednisolone Acetate (Pred Forte 1% -) 1 drop OD BID [facility] Last Admin: 10/22/16 11:00 Dose: 1 drp Ranitidine HCl (Zantac Oral Solution -) 150 mg PO BID [facility] Last Admin: 10/22/16 11:00 Dose: 150 mg - Objective Vital Signs: Vital Signs Temperature 99.2 F 10/22/16 14:44 Pulse Rate 84 10/22/16 14:44 Respiratory Rate 19 10/22/16 14:44 Blood Pressure 135/66 10/22/16 14:44 O2 Sat by Pulse Oximetry (%) 99 10/19/16 21:00 Constitutional: Yes: No Distress, Calm Cardiovascular: Yes: Regular Rate and Rhythm Respiratory: Yes: Mechanically Ventilated, Other Gastrointestinal: Yes: Normal Bowel Sounds, Soft, Other (peg in place) Musculoskeletal: Yes: Other Extremities: Yes: Other (gangrene of toes and feet) Neurological: Yes: Alert, Other Psychiatric: Yes: Other Labs: CBC, BMP 10/15/16 07:00 10/15/16 07:00 INR, PTT INR 1.14 (0.82-1.09) 09/07/16 22:45 Fibrinogen > 700.0 mg/dL (238-498) H 07/31/16 05:40 Assessment/Plan Problem List - Problems (1) Abdominal pain Code(s): R10.9 - UNSPECIFIED ABDOMINAL PAIN Qualifiers: Qualified Code(s): R10.33 - Periumbilical pain (2) Perforated abdominal viscus Code(s): QOD9605 - (3) Perforated viscus Code(s): R19.8 - OTH SYMPTOMS AND SIGNS INVOLVING THE DGSTV SYS AND ABDOMEN (4) Hypertension Code(s): I10 - ESSENTIAL (PRIMARY) HYPERTENSION Qualifiers: Qualified Code(s): I10 - Essential (primary) hypertension lactic acidosis fevers generalized swelling gangrene of the tip of the fingers noted pseudomonas pneumonia plan continue current mgmt nutrition continue abx continue suctioning abx for 1 more day
[2016-10-23] MEDS: CEFTAZIDIME PENTAHYDRATE 1 GM in DEXTROSE 5%-WATER - 50 ML IVPB SCH ×3 (02:24→18:31)
[2016-10-23] MEDS: OFLOXACIN 0.3% OPHTHALMIC SOLUTION 5 ML BOTTLE OD SCH ×5 (06:36→21:28)
[2016-10-23] MEDS: INSULIN SLIDING SCALE (NOVOLOG) 1 VIAL SQ SCH ×4 (06:36→21:27)
[2016-10-23] MEDS ORDERED: INSULIN (NOVOLOG) ASPART 100 UNITS/ML 10ML VIAL ONE ×3 (06:41→20:37)
--- NOTE | 2016-10-23 09:26 | PN ---
Progress Note, Physician History of Present Illness: Awake and talking - Current Medication List Current Medications: Active Medications Acetaminophen (Tylenol Oral Solution -) 650 mg PO Q4H PRN PRN Reason: FEVER OR PAIN Last Admin: 10/19/16 10:03 Dose: 650 mg Clotrimazole (Lotrisone Cream (Small Tube)) 1 applic TP BID [facility] Last Admin: 10/22/16 22:25 Dose: 1 applic Collagenase (Santyl -) 1 applic TP DAILY [facility] Last Admin: 10/22/16 12:17 Dose: 1 applic Dextrose (D50w (Vial) -) 50 gm IVPUSH Q15M PRN PRN Reason: BLOOD SUGAR < 60 Enoxaparin Sodium (Lovenox -) 40 mg SQ BID [facility] Last Admin: 10/22/16 22:27 Dose: 40 mg Furosemide (Lasix -) 20 mg GT DAILY [facility] Last Admin: 10/22/16 11:00 Dose: 20 mg IV Flush (Picc Line Flush) 8 ml IVPUSH PRN PRN PRN Reason: Protocol Last Admin: 10/22/16 19:05 Dose: 8 ml Ceftazidime 1 gm/ Dextrose 50 mls @ 100 mls/hr IVPB Q8H-IV [facility] PRN Reason: Protocol Last Admin: 10/23/16 02:24 Dose: 100 mls/hr Vancomycin HCl (Vancomycin (Pre-Docked)) 250 mls @ 166.667 mls/hr IVPB BID@1000 ,2200 [facility] PRN Reason: Protocol Last Admin: 10/22/16 22:30 Dose: 166.667 mls/hr Insulin Aspart (Novolog Vial Sliding Scale -) 1 vial SQ ACHS [facility] PRN Reason: Protocol Last Admin: 10/23/16 06:36 Dose: Not Given Insulin Detemir (Levemir Vial) 40 units SQ HS [facility] Last Admin: 10/22/16 22:25 Dose: 40 units Magnesium Oxide (Mag-Ox -) 400 mg GT BID [facility] Last Admin: 10/22/16 22:29 Dose: 400 mg Miscellaneous (Duragesic Patch Waste) 1 each TD PRN PRN PRN Reason: PAIN Last Admin: 09/26/16 15:41 Dose: 1 each Ofloxacin (Ocuflox 0.3% Eye Drops -) 1 drop OD Q4HWA [facility] Last Admin: 10/23/16 06:36 Dose: 1 drop Potassium Chloride (Potassium Chloride Oral Liquid) 40 meq GT BID [facility] Last Admin: 10/22/16 22:30 Dose: 40 meq Prednisolone Acetate (Pred Forte 1% -) 1 drop OD BID [facility] Last Admin: 10/22/16 22:30 Dose: 1 drp Ranitidine HCl (Zantac Oral Solution -) 150 mg PO BID [facility] Last Admin: 10/22/16 22:43 Dose: 150 mg - Objective Vital Signs: Vital Signs Temperature 98.7 F 10/23/16 06:00 Pulse Rate 70 10/23/16 06:00 Respiratory Rate 15 10/23/16 06:51 Blood Pressure 104/54 10/23/16 06:00 O2 Sat by Pulse Oximetry (%) 99 10/19/16 21:00 Constitutional: Yes: No Distress Eyes: Yes: WNL HENT: Yes: WNL Neck: Yes: WNL Cardiovascular: Yes: WNL Respiratory: Yes: Mechanically Ventilated Gastrointestinal: Yes: WNL ...Rectal Exam: Yes: Deferred Genitourinary: Yes: Incontinence Edema: No Wound/Incision: Yes: Clean/Dry Neurological: Yes: Alert Labs: CBC, BMP 10/15/16 07:00 10/15/16 07:00 INR, PTT INR 1.14 (0.82-1.09) 09/07/16 22:45 Fibrinogen > 700.0 mg/dL (238-498) H 07/31/16 05:40 Assessment/Plan Continue same trt
[2016-10-23] MEDS ORDERED: PT OWN MED DRAWER 7, Y5N ONE ×3 (10:58→18:30)
[2016-10-23] MEDS: ENOXAPARIN NA (PORCINE) 40 MG/0.4 ML DISP.SYRIN SQ SCH ×2 (11:03→21:27)
[2016-10-23] MEDS: RANITIDINE HCL 150 MG/10 ML UNIT-DOSE CUP PO SCH ×2 (11:03→21:27)
[2016-10-23] MEDS: VANCOMYCIN 1 GRAM (PRE-DOCKED) 250 ML IVPB SCH ×2 (11:04→21:14)
[2016-10-23] MEDS: POTASSIUM CHLORIDE ORAL LIQUID 20 MEQ/15 ML GT SCH ×2 (11:04→21:27)
[2016-10-23] MEDS: prednisoLONE ACETATE 1% OPHTH SUSP 5 ML BOTTLE OD SCH ×2 (11:05→21:28)
[2016-10-23] MEDS: COLLAGENASE CLOSTRIDIUM HIST. 30 GRAMS TUBE TP SCH (11:10)
[2016-10-23] MEDS: MAGNESIUM OXIDE 400 MG TABLET (FP) GT SCH ×2 (11:11→21:27)
[2016-10-23] MEDS: FUROSEMIDE 20 MG TABLET (FP) GT SCH (11:11)
[2016-10-23] MEDS: CLOTRIMAZOLE/BETAMET DIPROP 15 GM TUBE TP SCH (11:11)
--- NOTE | 2016-10-23 11:50 | PN ---
Progress Note (short form) - Note Progress Note: PULMONARY Remains afebrile. Vented on volume assist control. More awake today. Last Vital Signs Temp Pulse Resp BP Pulse Ox 98.7 F 70 14 104/54 99 10/23/16 06:00 10/23/16 06:00 10/23/16 09:10 10/23/16 06:00 10/19/16 21:00 Gen: vented, poorly responsive Heart: RRR Lung: bilateral rhonchi Abd: soft, nontender, +fistula drainage Ext: multiple ulcers, dry gangrene of bilateral feet, fingers CBC, BMP 10/15/16 07:00 10/15/16 07:00 Active Medications Acetaminophen (Tylenol Oral Solution -) 650 mg PO Q4H PRN PRN Reason: FEVER OR PAIN Last Admin: 10/19/16 10:03 Dose: 650 mg Clotrimazole (Lotrisone Cream (Small Tube)) 1 applic TP BID [facility] Last Admin: 10/23/16 11:11 Dose: 1 applic Collagenase (Santyl -) 1 applic TP DAILY [facility] Last Admin: 10/23/16 11:10 Dose: 1 applic Dextrose (D50w (Vial) -) 50 gm IVPUSH Q15M PRN PRN Reason: BLOOD SUGAR < 60 Enoxaparin Sodium (Lovenox -) 40 mg SQ BID [facility] Last Admin: 10/23/16 11:03 Dose: 40 mg Furosemide (Lasix -) 20 mg GT DAILY [facility] Last Admin: 10/23/16 11:11 Dose: 20 mg IV Flush (Picc Line Flush) 8 ml IVPUSH PRN PRN PRN Reason: Protocol Last Admin: 10/22/16 19:05 Dose: 8 ml Ceftazidime 1 gm/ Dextrose 50 mls @ 100 mls/hr IVPB Q8H-IV [facility] PRN Reason: Protocol Last Admin: 10/23/16 11:11 Dose: 100 mls/hr Vancomycin HCl (Vancomycin (Pre-Docked)) 250 mls @ 166.667 mls/hr IVPB BID@1000 ,2200 [facility] PRN Reason: Protocol Last Admin: 10/23/16 11:04 Dose: 166.667 mls/hr Insulin Aspart (Novolog Vial Sliding Scale -) 1 vial SQ ACHS [facility] PRN Reason: Protocol Last Admin: 10/23/16 11:28 Dose: 4 units Insulin Detemir (Levemir Vial) 40 units SQ HS [facility] Last Admin: 10/22/16 22:25 Dose: 40 units Magnesium Oxide (Mag-Ox -) 400 mg GT BID [facility] Last Admin: 10/23/16 11:11 Dose: 400 mg Miscellaneous (Duragesic Patch Waste) 1 each TD PRN PRN PRN Reason: PAIN Last Admin: 09/26/16 15:41 Dose: 1 each Ofloxacin (Ocuflox 0.3% Eye Drops -) 1 drop OD Q4HWA [facility] Last Admin: 10/23/16 11:05 Dose: 1 drop Potassium Chloride (Potassium Chloride Oral Liquid) 40 meq GT BID [facility] Last Admin: 10/23/16 11:04 Dose: 40 meq Prednisolone Acetate (Pred Forte 1% -) 1 drop OD BID [facility] Last Admin: 10/23/16 11:05 Dose: 1 drp Ranitidine HCl (Zantac Oral Solution -) 150 mg PO BID [facility] Last Admin: 10/23/16 11:03 Dose: 150 mg A/P Perforated Duodenal Ulcer Peritonitis s/p ex-lap/omental patch repair 07/16 Enterocutaneous Fistula Acute Respiratory Failure s/p Tracheostomy s/p Septic Shock DM DVT Gangrene s/p PEA Cardiac Arrest - continue anticoagulation - enteral feeds - spontaneous breathing trials as tolerated but poor candidate for weaning - DVT/GI prophylaxis - prognosis is poor, continue discussions regarding advanced directives and goals of care - recommend palliative due to failure to wean, anticipated amputations, poor quality of life - d/c planning in progress
--- NOTE | 2016-10-23 12:04 | CONSULT ---
Admitting History and Physical - Primary Care Physician PCP: Larry Miranda - Admission History of Present Illness: Admitted July 18, 2016 with PMhx of hypertension, hypercholesterolemia, diabetes mellitus who presented with Abd pain and found to have perforated Abd viscus s/p emergent Sx now with Septic Shock, ZAHIRA and Metabolic Acidosis. Pt s/ p Exploratory laparotomy with Repair of perforated duodenal ulcer. Pt with hypotension during Sx and during hospital course. Perforated Duodenal Ulcer Peritonitis s/p ex-lap/omental patch repair 07/16 Enterocutaneous Fistula Acute Respiratory Failure s/p Tracheostomy s/p Septic Shock DM DVT Gangrene s/p PEA Cardiac Arrest On ventilator, now more alert and attempting to communicate. 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 DEVELOPMENT CONSULTANT: Yes: Dementia Cardiovascular: Yes: HTN Gastrointestinal: Yes: Other (Perforated viscus) ...: No - Past Surgical History Past Surgical History: Yes: Colostomy - Smoking History Smoking history: Never smoked Have you smoked in the past 12 months: No If you are a former smoker, when did you quit?: ONE YRS AGO - Alcohol/Substance Use Hx Alcohol Use: Yes (2 beers daily) History - Admission Reason For Visit: ABD PAIN,JAUNDICE - Diagnostics X-ray: Report Reviewed - General Mental Status: Awake and Alert, Confused Attention: Distractible Ability to Follow Directions: Fair Head/Neck Control: Fair - Hearing Hearing: Normal Hearing Aide: No With Patient: No Speech Evaluation - Communication Primary Language: SAO TOMEAN Communication: Yes: Non-Communicable (intubated) - Speech Production Able to Make Needs Known: Yes: Severely Impaired - Swallow Evaluation/Bedside Assessment Current Nutritional Intake: G Tube Oral Secretions: Yes: Copious Secretions (suctioned repeatedly by RT, until clear.) Dentition: Yes: Edentulous Facial Symmetry at Rest: Symmetrical Facial Symmetry on Retraction: Symmetrical Lingual Movement: Symmetric (Limited cooperation. Seemed symmetric. Coated?) Lingual Speed of Movement: Normal Lingual Movement Strgth Against Opposition: Normal Laryngeal Movement: Able to Palpate Labial Seal: WFL Timing of Swallow: Delayed Coughing/Throat Clear: No Recommendations - Speech Evaluation, Impression/Plan Impression: Trial of puree with cuff deflated during PMV evaluation. Resistent to PO trials. Accepted small amounts of applesaucwe with much encouragement. Overtly tolerated with brisk swallow. I suspect pt can tolerate PO trials. Silent asp can not be r/o at bedside - Dysphagia Impressions/Plan Dysphagia Impressions: Ongoing Evaluation *Silent aspiration: cannot be R/O at bedside Recommendations: Modified Barium Swallow, Passy Center Valve
--- NOTE | 2016-10-23 13:12 | CONSULT ---
Passy-Blair Valve Eval - Assessment Prior to PMV Placement Patient and/or family educated re PMV: Yes Mental Status: Awake, Alert, Attempting to Communicate Secretions: Moderate Amount Patient on Ventilator: Yes Patient on Trach Collar: No Suctioned: Yes Trach Type: Portex Trach Size: 7.0 Cuff Status: Inflated Passy-Blair Valve in Place - Speech Characteristics Able to Phonate with PMV in place: Yes Voice Loudness: Normal Voice Pitch: Normal Voice Phonatory-based Quality: Normal Speech Pattern: Impaired Speech Clarity: < 50% Nasal Resonance: Normal Articulation: Precise Rate of Speech: Too Fast - Assessment with PMV in Place O2 Sat by Pulse Oximetry (%): 100 Change in Mental Status with PMV in Place: No Able to Manage Secretions: Yes Length of time with PMV in place: 20 min - Recommendations Recommendations: PMV as tolerated, Remove PMV while sleeping, Monitor Pulse Ox PMV on, Supervision while PMV on, Other (mbs to assess swallowing function)
--- NOTE | 2016-10-23 13:16 | PN ---
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 Excellent candidate for PMV use, for communication, improved airway function, and to expedite weaning from trach. Suggest increasing time on PMV, as tolerated, especially with family and staff present. Suction very well before use, deflate cuff, monitor o2 sat. MBS to initiate PO trials with safety.
--- NOTE | 2016-10-23 15:50 | PN ---
Progress Note, Physician History of Present Illness: patient doing very well pacim valve placed able to converse maintaining good oxygen sat - Current Medication List Current Medications: Active Medications Acetaminophen (Tylenol Oral Solution -) 650 mg PO Q4H PRN PRN Reason: FEVER OR PAIN Last Admin: 10/19/16 10:03 Dose: 650 mg Clotrimazole (Lotrisone Cream (Small Tube)) 1 applic TP BID [facility] Last Admin: 10/23/16 11:11 Dose: 1 applic Collagenase (Santyl -) 1 applic TP DAILY [facility] Last Admin: 10/23/16 11:10 Dose: 1 applic Dextrose (D50w (Vial) -) 50 gm IVPUSH Q15M PRN PRN Reason: BLOOD SUGAR < 60 Enoxaparin Sodium (Lovenox -) 40 mg SQ BID [facility] Last Admin: 10/23/16 11:03 Dose: 40 mg Furosemide (Lasix -) 20 mg GT DAILY [facility] Last Admin: 10/23/16 11:11 Dose: 20 mg IV Flush (Picc Line Flush) 8 ml IVPUSH PRN PRN PRN Reason: Protocol Last Admin: 10/22/16 19:05 Dose: 8 ml Ceftazidime 1 gm/ Dextrose 50 mls @ 100 mls/hr IVPB Q8H-IV [facility] PRN Reason: Protocol Last Admin: 10/23/16 11:11 Dose: 100 mls/hr Vancomycin HCl (Vancomycin (Pre-Docked)) 250 mls @ 166.667 mls/hr IVPB BID@1000 ,2200 [facility] PRN Reason: Protocol Last Admin: 10/23/16 11:04 Dose: 166.667 mls/hr Insulin Aspart (Novolog Vial Sliding Scale -) 1 vial SQ ACHS [facility] PRN Reason: Protocol Last Admin: 10/23/16 11:28 Dose: 4 units Insulin Detemir (Levemir Vial) 40 units SQ HS [facility] Last Admin: 10/22/16 22:25 Dose: 40 units Magnesium Oxide (Mag-Ox -) 400 mg GT BID [facility] Last Admin: 10/23/16 11:11 Dose: 400 mg Miscellaneous (Duragesic Patch Waste) 1 each TD PRN PRN PRN Reason: PAIN Last Admin: 09/26/16 15:41 Dose: 1 each Ofloxacin (Ocuflox 0.3% Eye Drops -) 1 drop OD Q4HWA [facility] Last Admin: 10/23/16 11:05 Dose: 1 drop Potassium Chloride (Potassium Chloride Oral Liquid) 40 meq GT BID [facility] Last Admin: 10/23/16 11:04 Dose: 40 meq Prednisolone Acetate (Pred Forte 1% -) 1 drop OD BID [facility] Last Admin: 10/23/16 11:05 Dose: 1 drp Ranitidine HCl (Zantac Oral Solution -) 150 mg PO BID [facility] Last Admin: 10/23/16 11:03 Dose: 150 mg - Objective Vital Signs: Vital Signs Temperature 98.7 F 10/23/16 15:03 Pulse Rate 76 10/23/16 15:03 Respiratory Rate 24 10/23/16 15:23 Blood Pressure 145/62 10/23/16 15:03 O2 Sat by Pulse Oximetry (%) 100 10/23/16 13:11 Constitutional: Yes: No Distress, Calm Cardiovascular: Yes: Regular Rate and Rhythm Respiratory: Yes: Regular, Poor Air Entry, Other Gastrointestinal: Yes: Normal Bowel Sounds, Soft, Other (peg in place) Musculoskeletal: Yes: Other Extremities: Yes: Other (dry gangrene) Neurological: Yes: Alert, Oriented Psychiatric: Yes: Alert Labs: CBC, BMP 10/15/16 07:00 10/15/16 07:00 INR, PTT INR 1.14 (0.82-1.09) 09/07/16 22:45 Fibrinogen > 700.0 mg/dL (238-498) H 07/31/16 05:40 Assessment/Plan Problem List - Problems (1) Abdominal pain Code(s): R10.9 - UNSPECIFIED ABDOMINAL PAIN Qualifiers: Qualified Code(s): R10.33 - Periumbilical pain (2) Perforated abdominal viscus Code(s): [id number] - (3) Perforated viscus Code(s): R19.8 - OTH SYMPTOMS AND SIGNS INVOLVING THE DGSTV SYS AND ABDOMEN (4) Hypertension Code(s): I10 - ESSENTIAL (PRIMARY) HYPERTENSION Qualifiers: Qualified Code(s): I10 - Essential (primary) hypertension lactic acidosis fevers generalized swelling gangrene of the tip of the fingers noted pseudomonas pneumonia plan continue current mgmt nutrition continue abx continue suctioning will stop all abx tomorrow
[2016-10-23] MEDS: INSULIN DETEMIR 100 UNITS/ML MDV SQ SCH (21:27)
[2016-10-24] MEDS: CEFTAZIDIME PENTAHYDRATE 1 GM in DEXTROSE 5%-WATER - 50 ML IVPB SCH ×2 (01:36→09:10)
[2016-10-24] MEDS: CLOTRIMAZOLE/BETAMET DIPROP 15 GM TUBE TP SCH ×3 (01:49→21:18)
[2016-10-24] MEDS: OFLOXACIN 0.3% OPHTHALMIC SOLUTION 5 ML BOTTLE OD SCH ×5 (05:33→21:17)
[2016-10-24] MEDS: INSULIN SLIDING SCALE (NOVOLOG) 1 VIAL SQ SCH ×4 (06:06→21:24)
[2016-10-24] MEDS ORDERED: PT OWN MED DRAWER 7, Y5N ONE ×4 (09:03→22:15)
[2016-10-24] MEDS: FUROSEMIDE 20 MG TABLET (FP) GT SCH (09:08)
[2016-10-24] MEDS: POTASSIUM CHLORIDE ORAL LIQUID 20 MEQ/15 ML GT SCH ×2 (09:08→21:14)
[2016-10-24] MEDS: ENOXAPARIN NA (PORCINE) 40 MG/0.4 ML DISP.SYRIN SQ SCH ×2 (09:08→21:15)
[2016-10-24] MEDS: RANITIDINE HCL 150 MG/10 ML UNIT-DOSE CUP PO SCH ×2 (09:08→21:15)
[2016-10-24] MEDS: MAGNESIUM OXIDE 400 MG TABLET (FP) GT SCH ×2 (09:08→21:15)
[2016-10-24] MEDS: COLLAGENASE CLOSTRIDIUM HIST. 30 GRAMS TUBE TP SCH (09:09)
[2016-10-24] MEDS: prednisoLONE ACETATE 1% OPHTH SUSP 5 ML BOTTLE OD SCH ×2 (09:09→21:18)
[2016-10-24] MEDS: PICC LINE 8 ML FLUSH PROTOCOL IVPUSH PRN (09:10)
[2016-10-24] MEDS: VANCOMYCIN 1 GRAM (PRE-DOCKED) 250 ML IVPB SCH (09:10)
--- NOTE | 2016-10-24 09:29 | PN ---
Progress Note, Physician Chief Complaint: Patient gradually improving , no fever still on abx and vent . History of Present Illness: 65-year-old F H/O hypertension, hypercholesterolemia, T2DM, ETOH abuse, admitted with perforated duodenal ulcer with sepsis, prolonged complicated course with respiratory failure s/p incubation, tracheostomy on vent dependent and G tube feeding. - Current Medication List Current Medications: Active Medications Acetaminophen (Tylenol Oral Solution -) 650 mg PO Q4H PRN PRN Reason: FEVER OR PAIN Last Admin: 10/19/16 10:03 Dose: 650 mg Clotrimazole (Lotrisone Cream (Small Tube)) 1 applic TP BID [facility] Last Admin: 10/24/16 09:09 Dose: 1 applic Collagenase (Santyl -) 1 applic TP DAILY [facility] Last Admin: 10/24/16 09:09 Dose: 1 applic Dextrose (D50w (Vial) -) 50 gm IVPUSH Q15M PRN PRN Reason: BLOOD SUGAR < 60 Enoxaparin Sodium (Lovenox -) 40 mg SQ BID [facility] Last Admin: 10/24/16 09:08 Dose: 40 mg Furosemide (Lasix -) 20 mg GT DAILY [facility] Last Admin: 10/24/16 09:08 Dose: 20 mg IV Flush (Picc Line Flush) 8 ml IVPUSH PRN PRN PRN Reason: Protocol Last Admin: 10/24/16 09:10 Dose: 8 ml Ceftazidime 1 gm/ Dextrose 50 mls @ 100 mls/hr IVPB Q8H-IV [facility] PRN Reason: Protocol Last Admin: 10/24/16 09:10 Dose: 100 mls/hr Vancomycin HCl (Vancomycin (Pre-Docked)) 250 mls @ 166.667 mls/hr IVPB BID@1000 ,2200 [facility] PRN Reason: Protocol Last Admin: 10/24/16 09:10 Dose: 166.667 mls/hr Insulin Aspart (Novolog Vial Sliding Scale -) 1 vial SQ ACHS [facility] PRN Reason: Protocol Last Admin: 10/24/16 06:06 Dose: Not Given Insulin Detemir (Levemir Vial) 40 units SQ HS [facility] Last Admin: 10/23/16 21:27 Dose: 40 units Magnesium Oxide (Mag-Ox -) 400 mg GT BID [facility] Last Admin: 10/24/16 09:08 Dose: 400 mg Miscellaneous (Duragesic Patch Waste) 1 each TD PRN PRN PRN Reason: PAIN Last Admin: 09/26/16 15:41 Dose: 1 each Ofloxacin (Ocuflox 0.3% Eye Drops -) 1 drop OD Q4HWA [facility] Last Admin: 10/24/16 09:09 Dose: 1 drop Potassium Chloride (Potassium Chloride Oral Liquid) 40 meq GT BID [facility] Last Admin: 10/24/16 09:08 Dose: 40 meq Prednisolone Acetate (Pred Forte 1% -) 1 drop OD BID [facility] Last Admin: 10/24/16 09:09 Dose: 1 drp Ranitidine HCl (Zantac Oral Solution -) 150 mg PO BID [facility] Last Admin: 10/24/16 09:08 Dose: 150 mg - Objective Vital Signs: Vital Signs Temperature 98.1 F 10/24/16 09:05 Pulse Rate 76 10/24/16 09:05 Respiratory Rate 20 10/24/16 09:05 Blood Pressure 122/58 10/24/16 09:05 O2 Sat by Pulse Oximetry (%) 100 10/23/16 21:35 Patient remained altered minimally responsive, on Vent HEENT: Trach at the place, need intermittent Vent support, mm most, anemia NECK; No JVD No Bruit CHEST: Good AE minimal crests ABD; S/P PEG tube, minimal discharge from wound, colostomy at place BS + EXT; extensive edema, skin peeling and gangrene of distal extremities 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 DERM; gradually healing extensive skin peeling and gangrene of fingers and toes Labs: CBC, BMP 10/15/16 07:00 10/15/16 07:00 INR, PTT INR 1.14 (0.82-1.09) 09/07/16 22:45 Fibrinogen > 700.0 mg/dL (238-498) H 07/31/16 05:40 Problem List - Problems (1) Perforated abdominal viscus Assessment/Plan: Patient was presented with Rt UQ pain and with free air, Duodenal ulcer perforation s/p surgery. now fistula formation draining exudates.fistula still has discharge, patient has colostomy bag at place. (2) Acute metabolic encephalopathy Assessment/Plan: Secondary to hypoperfusion due to septic shock, at present no significant improvement , most likely hypoxic encephalopathy. gradually improving Code(s): G93.41 - METABOLIC ENCEPHALOPATHY (3) Ischemia of extremity Assessment/Plan: Ischemia off all extremities due to prolonged vasopressor use, patient needed pressure to maintain BP, now off pressors wound care healing slowly. Code(s): I99.8 - OTHER DISORDER OF CIRCULATORY SYSTEM (4) Sepsis Assessment/Plan: Due to perforated gastric now off pressors, on Vancomycine and CeftizidimeF/U cultures.Prognosis is guarded. TWBC normal. Code(s): A41.9 - SEPSIS, UNSPECIFIED ORGANISM (5) Severe malnutrition Assessment/Plan: S/P PG tolerating feeding remove NG tube, Nutrition consult.. Code(s): E43 - UNSPECIFIED SEVERE PROTEIN-CALORIE MALNUTRITION (6) Diabetes mellitus Assessment/Plan: Better controlled add basal insulin Levimir and correction dose insulin. Code(s): E11.9 - TYPE 2 DIABETES MELLITUS WITHOUT COMPLICATIONS Qualifiers: Diabetes mellitus type: type 2
--- NOTE | 2016-10-24 12:28 | PN ---
Progress Note, LAB INTERN - Note Progress Note: Pt tolerating PMV well, with o2 saturation at 100%. Not verbalizing for RT. I suspected oral pooling of saliva. With OC, resuctioned, pt began to speak. Speech is precise and euphonic. Daily use of PMV to improve upper airway function and facilitate weaning from ventilator. Suggest MBS Thursday
--- NOTE | 2016-10-24 15:07 | PN ---
Progress Note, Physician History of Present Illness: patient looking very well no issues able to converse - Current Medication List Current Medications: Active Medications Acetaminophen (Tylenol Oral Solution -) 650 mg PO Q4H PRN PRN Reason: FEVER OR PAIN Last Admin: 10/19/16 10:03 Dose: 650 mg Clotrimazole (Lotrisone Cream (Small Tube)) 1 applic TP BID [facility] Last Admin: 10/24/16 09:09 Dose: 1 applic Collagenase (Santyl -) 1 applic TP DAILY [facility] Last Admin: 10/24/16 09:09 Dose: 1 applic Dextrose (D50w (Vial) -) 50 gm IVPUSH Q15M PRN PRN Reason: BLOOD SUGAR < 60 Enoxaparin Sodium (Lovenox -) 40 mg SQ BID [facility] Last Admin: 10/24/16 09:08 Dose: 40 mg Furosemide (Lasix -) 20 mg GT DAILY [facility] Last Admin: 10/24/16 09:08 Dose: 20 mg IV Flush (Picc Line Flush) 8 ml IVPUSH PRN PRN PRN Reason: Protocol Last Admin: 10/24/16 09:10 Dose: 8 ml Insulin Aspart (Novolog Vial Sliding Scale -) 1 vial SQ ACHS [facility] PRN Reason: Protocol Last Admin: 10/24/16 11:42 Dose: 4 units Insulin Detemir (Levemir Vial) 40 units SQ HS [facility] Last Admin: 10/23/16 21:27 Dose: 40 units Magnesium Oxide (Mag-Ox -) 400 mg GT BID [facility] Last Admin: 10/24/16 09:08 Dose: 400 mg Miscellaneous (Duragesic Patch Waste) 1 each TD PRN PRN PRN Reason: PAIN Last Admin: 09/26/16 15:41 Dose: 1 each Ofloxacin (Ocuflox 0.3% Eye Drops -) 1 drop OD Q4HWA [facility] Last Admin: 10/24/16 13:59 Dose: 1 drop Potassium Chloride (Potassium Chloride Oral Liquid) 40 meq GT BID [facility] Last Admin: 10/24/16 09:08 Dose: 40 meq Prednisolone Acetate (Pred Forte 1% -) 1 drop OD BID [facility] Last Admin: 10/24/16 09:09 Dose: 1 drp Ranitidine HCl (Zantac Oral Solution -) 150 mg PO BID [facility] Last Admin: 10/24/16 09:08 Dose: 150 mg - Objective Vital Signs: Vital Signs Temperature 98.1 F 10/24/16 09:05 Pulse Rate 76 10/24/16 09:05 Respiratory Rate 23 10/24/16 09:40 Blood Pressure 122/58 10/24/16 09:05 O2 Sat by Pulse Oximetry (%) 100 10/24/16 09:40 Constitutional: Yes: No Distress, Calm Cardiovascular: Yes: Regular Rate and Rhythm Respiratory: Yes: Regular, Rhonchi Gastrointestinal: Yes: Normal Bowel Sounds, Soft Musculoskeletal: Yes: WNL Extremities: Yes: Other (gangrene of the digits) Wound/Incision: Yes: Other Neurological: Yes: Alert, Oriented Labs: CBC, BMP 10/15/16 07:00 10/15/16 07:00 INR, PTT INR 1.14 (0.82-1.09) 09/07/16 22:45 Fibrinogen > 700.0 mg/dL (238-498) H 07/31/16 05:40 Assessment/Plan Problem List - Problems (1) Abdominal pain Code(s): R10.9 - UNSPECIFIED ABDOMINAL PAIN Qualifiers: Qualified Code(s): R10.33 - Periumbilical pain (2) Perforated abdominal viscus Code(s): ERG0365 - (3) Perforated viscus Code(s): R19.8 - OTH SYMPTOMS AND SIGNS INVOLVING THE DGSTV SYS AND ABDOMEN (4) Hypertension Code(s): I10 - ESSENTIAL (PRIMARY) HYPERTENSION Qualifiers: Qualified Code(s): I10 - Essential (primary) hypertension lactic acidosis fevers generalized swelling gangrene of the tip of the fingers noted pseudomonas pneumonia plan stopped all abx can remove the picc line nutrition hydration
[2016-10-24] MEDS: INSULIN DETEMIR 100 UNITS/ML MDV SQ SCH (21:16)
[2016-10-25] MEDS ORDERED: PT OWN MED DRAWER 7, Y5N ONE ×3 (05:58→22:23)
[2016-10-25] MEDS: OFLOXACIN 0.3% OPHTHALMIC SOLUTION 5 ML BOTTLE OD SCH ×5 (06:20→22:53)
[2016-10-25] MEDS: INSULIN SLIDING SCALE (NOVOLOG) 1 VIAL SQ SCH ×4 (06:20→22:53)
[2016-10-25] MEDS ORDERED: INSULIN (NOVOLOG) ASPART 100 UNITS/ML 10ML VIAL ONE (08:11)
[2016-10-25] MEDS ORDERED: INSULIN (NOVOLOG MIX 70/30) 100 UNITS/ML MDV SQ ONE (08:11)
[2016-10-25] MEDS ORDERED: INSULIN DETEMIR 100 UNITS/ML MDV SQ ONE (08:11)
[2016-10-25 09:09] LABS: BASOPHIL 0.5 % (0-2.0); EOSINOPHIL 5.3 % (0-4.5); MCH 29.8 pg (25.7-33.7); MCHC 33.7 g/dl (32.0-36.0); MEAN CELL VOLUME 88.6 fl (80-96); MEAN PLT VOLUME 7.3 fl (7.5-11.1); NEUTROPHILS 56.2 % (42.8-82.8); PLATELET COUNT 310 K/MM3 (134-434); RDW 15.9 % (11.6-15.6); WHITE BLOOD COUNT 7.2 K/mm3 (4.0-10.0)
[2016-10-25 09:13] LABS: ALBUMIN 2.5 g/dl (3.4-5.0); ANION GAP 9 (8-16); CALCIUM 10.9 mg/dL (8.5-10.1); CO2 30 mmol/L (21-32); CREATININE 0.3 mg/dL (0.55-1.02); GLUCOSE,RANDOM 102 mg/dL (74-106); SGOT/AST 13 U/L (15-37); SGPT/ALT 18 U/L (12-78)
[2016-10-25 09:14] LABS: ALK PHOS 97 U/L (45-117); BILIRUBIN,TOTAL 0.3 mg/dL (0.2-1.0); TOT PROT 6.8 g/dl (6.4-8.2)
[2016-10-25] MEDS: RANITIDINE HCL 150 MG/10 ML UNIT-DOSE CUP PO SCH ×2 (11:00→22:51)
[2016-10-25] MEDS: MAGNESIUM OXIDE 400 MG TABLET (FP) GT SCH ×2 (11:00→22:52)
[2016-10-25] MEDS: POTASSIUM CHLORIDE ORAL LIQUID 20 MEQ/15 ML GT SCH ×2 (11:00→22:51)
[2016-10-25] MEDS: ENOXAPARIN NA (PORCINE) 40 MG/0.4 ML DISP.SYRIN SQ SCH ×2 (11:00→22:52)
[2016-10-25] MEDS: COLLAGENASE CLOSTRIDIUM HIST. 30 GRAMS TUBE TP SCH (11:52)
[2016-10-25] MEDS: FUROSEMIDE 20 MG TABLET (FP) GT SCH (11:52)
[2016-10-25] MEDS: prednisoLONE ACETATE 1% OPHTH SUSP 5 ML BOTTLE OD SCH ×2 (11:53→22:53)
[2016-10-25] MEDS: CLOTRIMAZOLE/BETAMET DIPROP 15 GM TUBE TP SCH ×2 (11:53→22:51)
--- NOTE | 2016-10-25 13:07 | PN ---
Progress Note, Physician Chief Complaint: Remained at her base line , , low grade fever , opens eye to verbal command, on Vent Saturating well , intermittent IMV mode.yesterday abx stopped. History of Present Illness: 65-year-old F H/O hypertension, hypercholesterolemia, T2DM, ETOH abuse, admitted with perforated duodenal ulcer with sepsis, prolonged complicated course with respiratory failure s/p incubation, tracheostomy on Vent. - Current Medication List Current Medications: Active Medications Acetaminophen (Tylenol Oral Solution -) 650 mg PO Q4H PRN PRN Reason: FEVER OR PAIN Last Admin: 10/19/16 10:03 Dose: 650 mg Clotrimazole (Lotrisone Cream (Small Tube)) 1 applic TP BID [facility] Last Admin: 10/25/16 11:53 Dose: 1 applic Collagenase (Santyl -) 1 applic TP DAILY [facility] Last Admin: 10/25/16 11:52 Dose: 1 applic Dextrose (D50w (Vial) -) 50 gm IVPUSH Q15M PRN PRN Reason: BLOOD SUGAR < 60 Enoxaparin Sodium (Lovenox -) 40 mg SQ BID [facility] Last Admin: 10/25/16 11:00 Dose: 40 mg Furosemide (Lasix -) 20 mg GT DAILY [facility] Last Admin: 10/25/16 11:52 Dose: 20 mg IV Flush (Picc Line Flush) 8 ml IVPUSH PRN PRN PRN Reason: Protocol Last Admin: 10/24/16 09:10 Dose: 8 ml Insulin Aspart (Novolog Vial Sliding Scale -) 1 vial SQ ACHS [facility] PRN Reason: Protocol Last Admin: 10/25/16 12:09 Dose: Not Given Insulin Detemir (Levemir Vial) 40 units SQ HS [facility] Last Admin: 10/24/16 21:16 Dose: 40 units Magnesium Oxide (Mag-Ox -) 400 mg GT BID [facility] Last Admin: 10/25/16 11:00 Dose: 400 mg Miscellaneous (Duragesic Patch Waste) 1 each TD PRN PRN PRN Reason: PAIN Last Admin: 09/26/16 15:41 Dose: 1 each Ofloxacin (Ocuflox 0.3% Eye Drops -) 1 drop OD Q4HWA [facility] Last Admin: 10/25/16 11:53 Dose: Not Given Potassium Chloride (Potassium Chloride Oral Liquid) 40 meq GT BID [facility] Last Admin: 10/25/16 11:00 Dose: 40 meq Prednisolone Acetate (Pred Forte 1% -) 1 drop OD BID [facility] Last Admin: 10/25/16 11:53 Dose: Not Given Ranitidine HCl (Zantac Oral Solution -) 150 mg PO BID [facility] Last Admin: 10/25/16 11:00 Dose: 150 mg - Objective Vital Signs: Vital Signs Temperature 98.2 F 10/25/16 06:00 Pulse Rate 68 10/25/16 06:00 Respiratory Rate 14 10/25/16 10:08 Blood Pressure 119/61 10/25/16 06:00 O2 Sat by Pulse Oximetry (%) 100 10/24/16 21:00 Patient more alert. 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 DERM; gradually healing extensive skin peeling and gangrene of fingers and toes Labs: CBC, BMP 10/25/16 08:00 10/25/16 08:00 INR, PTT INR 1.14 (0.82-1.09) 09/07/16 22:45 Fibrinogen > 700.0 mg/dL (238-498) H 07/31/16 05:40 Problem List - Problems (1) Perforated abdominal viscus Assessment/Plan: Patient was presented with Rt UQ pain and with free air, Duodenal ulcer perforation s/p surgery. now fistula formation draining exudates.fistula still has discharge, patient has colostomy bag at place. (2) Acute metabolic encephalopathy Assessment/Plan: Secondary to hypoperfusion due to septic shoc , most likely hypoxic encephalopathy. Code(s): G93.41 - METABOLIC ENCEPHALOPATHY (3) Ischemia of extremity Assessment/Plan: Ischemia off all extremities due to prolonged vasopressor use, patient needed pressure to maintain BP, now off pressors wound care healing slowly. Code(s): I99.8 - OTHER DISORDER OF CIRCULATORY SYSTEM (4) Sepsis Assessment/Plan: Due to perforated gastric now off pressor and abx. Code(s): A41.9 - SEPSIS, UNSPECIFIED ORGANISM (5) Severe malnutrition Assessment/Plan: S/P PG tolerating feeding remove NG tube, Nutrition consult.. Code(s): E43 - UNSPECIFIED SEVERE PROTEIN-CALORIE MALNUTRITION (6) Diabetes mellitus Assessment/Plan: Better controlled add basal insulin Levimir and correction dose insulin. Code(s): E11.9 - TYPE 2 DIABETES MELLITUS WITHOUT COMPLICATIONS Qualifiers: Diabetes mellitus type: type 2
--- NOTE | 2016-10-25 14:14 | PN ---
Progress Note (short form) - Note Progress Note: PULMONARY No fevers recorded. Vented on volume assist control. More awake today. Last Vital Signs Temp Pulse Resp BP Pulse Ox 98.2 F 68 14 119/61 100 10/25/16 06:00 10/25/16 06:00 10/25/16 10:08 10/25/16 06:00 10/24/16 21:00 Gen: vented, poorly responsive Heart: RRR Lung: bilateral rhonchi Abd: soft, nontender, +fistula drainage Ext: multiple ulcers, dry gangrene of bilateral feet, fingers CBC, BMP 10/25/16 08:00 10/25/16 08:00 Active Medications Acetaminophen (Tylenol Oral Solution -) 650 mg PO Q4H PRN PRN Reason: FEVER OR PAIN Last Admin: 10/19/16 10:03 Dose: 650 mg Clotrimazole (Lotrisone Cream (Small Tube)) 1 applic TP BID [facility] Last Admin: 10/25/16 11:53 Dose: 1 applic Collagenase (Santyl -) 1 applic TP DAILY [facility] Last Admin: 10/25/16 11:52 Dose: 1 applic Dextrose (D50w (Vial) -) 50 gm IVPUSH Q15M PRN PRN Reason: BLOOD SUGAR < 60 Enoxaparin Sodium (Lovenox -) 40 mg SQ BID [facility] Last Admin: 10/25/16 11:00 Dose: 40 mg Furosemide (Lasix -) 20 mg GT DAILY [facility] Last Admin: 10/25/16 11:52 Dose: 20 mg IV Flush (Picc Line Flush) 8 ml IVPUSH PRN PRN PRN Reason: Protocol Last Admin: 10/24/16 09:10 Dose: 8 ml Insulin Aspart (Novolog Vial Sliding Scale -) 1 vial SQ ACHS [facility] PRN Reason: Protocol Last Admin: 10/25/16 12:09 Dose: Not Given Insulin Detemir (Levemir Vial) 40 units SQ HS [facility] Last Admin: 10/24/16 21:16 Dose: 40 units Magnesium Oxide (Mag-Ox -) 400 mg GT BID [facility] Last Admin: 10/25/16 11:00 Dose: 400 mg Miscellaneous (Duragesic Patch Waste) 1 each TD PRN PRN PRN Reason: PAIN Last Admin: 09/26/16 15:41 Dose: 1 each Ofloxacin (Ocuflox 0.3% Eye Drops -) 1 drop OD Q4HWA [facility] Last Admin: 10/25/16 11:53 Dose: Not Given Potassium Chloride (Potassium Chloride Oral Liquid) 40 meq GT BID [facility] Last Admin: 10/25/16 11:00 Dose: 40 meq Prednisolone Acetate (Pred Forte 1% -) 1 drop OD BID [facility] Last Admin: 10/25/16 11:53 Dose: Not Given Ranitidine HCl (Zantac Oral Solution -) 150 mg PO BID [facility] Last Admin: 10/25/16 11:00 Dose: 150 mg A/P Perforated Duodenal Ulcer Peritonitis s/p ex-lap/omental patch repair 07/16 Enterocutaneous Fistula Acute Respiratory Failure s/p Tracheostomy s/p Septic Shock DM DVT Gangrene s/p PEA Cardiac Arrest - continue anticoagulation - enteral feeds - spontaneous breathing trials as tolerated but poor candidate for weaning - DVT/GI prophylaxis - d/c planning in progress
--- NOTE | 2016-10-25 15:17 | PN ---
Progress Note, Physician History of Present Illness: Pt alert and fully responsive. Denies any specific complaints. - Current Medication List Current Medications: Active Medications Acetaminophen (Tylenol Oral Solution -) 650 mg PO Q4H PRN PRN Reason: FEVER OR PAIN Last Admin: 10/19/16 10:03 Dose: 650 mg Clotrimazole (Lotrisone Cream (Small Tube)) 1 applic TP BID [facility] Last Admin: 10/25/16 11:53 Dose: 1 applic Collagenase (Santyl -) 1 applic TP DAILY [facility] Last Admin: 10/25/16 11:52 Dose: 1 applic Dextrose (D50w (Vial) -) 50 gm IVPUSH Q15M PRN PRN Reason: BLOOD SUGAR < 60 Enoxaparin Sodium (Lovenox -) 40 mg SQ BID [facility] Last Admin: 10/25/16 11:00 Dose: 40 mg Furosemide (Lasix -) 20 mg GT DAILY [facility] Last Admin: 10/25/16 11:52 Dose: 20 mg IV Flush (Picc Line Flush) 8 ml IVPUSH PRN PRN PRN Reason: Protocol Last Admin: 10/24/16 09:10 Dose: 8 ml Insulin Aspart (Novolog Vial Sliding Scale -) 1 vial SQ ACHS [facility] PRN Reason: Protocol Last Admin: 10/25/16 12:09 Dose: Not Given Insulin Detemir (Levemir Vial) 40 units SQ HS [facility] Last Admin: 10/24/16 21:16 Dose: 40 units Magnesium Oxide (Mag-Ox -) 400 mg GT BID [facility] Last Admin: 10/25/16 11:00 Dose: 400 mg Miscellaneous (Duragesic Patch Waste) 1 each TD PRN PRN PRN Reason: PAIN Last Admin: 09/26/16 15:41 Dose: 1 each Ofloxacin (Ocuflox 0.3% Eye Drops -) 1 drop OD Q4HWA [facility] Last Admin: 10/25/16 11:53 Dose: Not Given Potassium Chloride (Potassium Chloride Oral Liquid) 40 meq GT BID [facility] Last Admin: 10/25/16 11:00 Dose: 40 meq Prednisolone Acetate (Pred Forte 1% -) 1 drop OD BID [facility] Last Admin: 10/25/16 11:53 Dose: Not Given Ranitidine HCl (Zantac Oral Solution -) 150 mg PO BID [facility] Last Admin: 10/25/16 11:00 Dose: 150 mg - Objective Vital Signs: Vital Signs Temperature 100.5 F H 10/25/16 14:50 Pulse Rate 78 10/25/16 14:50 Respiratory Rate 14 10/25/16 14:10 Blood Pressure 113/43 10/25/16 14:50 O2 Sat by Pulse Oximetry (%) 100 10/24/16 21:00 Constitutional: Yes: No Distress HENT: Yes: WNL Cardiovascular: Yes: Regular Rate and Rhythm Respiratory: Yes: Regular Gastrointestinal: Yes: Normal Bowel Sounds, Soft Extremities: Yes: Other (gangrenous fingers/feet) Neurological: Yes: Alert Labs: CBC, BMP 10/25/16 08:00 10/25/16 08:00 INR, PTT INR 1.14 (0.82-1.09) 09/07/16 22:45 Fibrinogen > 700.0 mg/dL (238-498) H 07/31/16 05:40 Problem List - Problems (1) Cardiac arrest due to respiratory disorder Code(s): J98.9 - RESPIRATORY DISORDER, UNSPECIFIED I46.8 - CARDIAC ARREST DUE TO OTHER UNDERLYING CONDITION (2) Diabetes mellitus Code(s): E11.9 - TYPE 2 DIABETES MELLITUS WITHOUT COMPLICATIONS Qualifiers: Diabetes mellitus type: type 2 (3) Perforated abdominal viscus Code(s): [id number] - (4) Sepsis Code(s): A41.9 - SEPSIS, UNSPECIFIED ORGANISM (5) Pseudomonas pneumonia Code(s): J15.1 - PNEUMONIA DUE TO PSEUDOMONAS (6) Respiratory failure Code(s): J96.90 - RESPIRATORY FAILURE, UNSP, UNSP W HYPOXIA OR HYPERCAPNIA Assessment/Plan Pt remains clinically stable cont. monitor off antibiotics
[2016-10-25] MEDS: INSULIN DETEMIR 100 UNITS/ML MDV SQ SCH (22:58)
[2016-10-26] MEDS ORDERED: PT OWN MED DRAWER 7, Y5N ONE (06:46)
[2016-10-26] MEDS: INSULIN SLIDING SCALE (NOVOLOG) 1 VIAL SQ SCH ×4 (06:48→22:39)
[2016-10-26] MEDS: OFLOXACIN 0.3% OPHTHALMIC SOLUTION 5 ML BOTTLE OD SCH ×4 (06:48→22:36)
--- NOTE | 2016-10-26 08:49 | PN ---
Progress Note, Physician Chief Complaint: More alert low grade fever , opens eye to verbal command, on Vent Saturating well, History of Present Illness: 65-year-old F H/O hypertension, hypercholesterolemia, T2DM, ETOH abuse, admitted with perforated duodenal ulcer with sepsis, prolonged complicated course with respiratory failure s/p incubation, tracheostomy osiel vent dependent and PEG - Current Medication List Current Medications: Active Medications Acetaminophen (Tylenol Oral Solution -) 650 mg PO Q4H PRN PRN Reason: FEVER OR PAIN Last Admin: 10/19/16 10:03 Dose: 650 mg Clotrimazole (Lotrisone Cream (Small Tube)) 1 applic TP BID [facility] Last Admin: 10/25/16 22:51 Dose: 1 applic Collagenase (Santyl -) 1 applic TP DAILY [facility] Last Admin: 10/25/16 11:52 Dose: 1 applic Dextrose (D50w (Vial) -) 50 gm IVPUSH Q15M PRN PRN Reason: BLOOD SUGAR < 60 Enoxaparin Sodium (Lovenox -) 40 mg SQ BID [facility] Last Admin: 10/25/16 22:52 Dose: 40 mg Furosemide (Lasix -) 20 mg GT DAILY [facility] Last Admin: 10/25/16 11:52 Dose: 20 mg IV Flush (Picc Line Flush) 8 ml IVPUSH PRN PRN PRN Reason: Protocol Last Admin: 10/24/16 09:10 Dose: 8 ml Insulin Aspart (Novolog Vial Sliding Scale -) 1 vial SQ ACHS [facility] PRN Reason: Protocol Last Admin: 10/26/16 06:48 Dose: 4 units Insulin Detemir (Levemir Vial) 40 units SQ HS [facility] Last Admin: 10/25/16 22:58 Dose: 40 units Magnesium Oxide (Mag-Ox -) 400 mg GT BID [facility] Last Admin: 10/25/16 22:52 Dose: 400 mg Miscellaneous (Duragesic Patch Waste) 1 each TD PRN PRN PRN Reason: PAIN Last Admin: 09/26/16 15:41 Dose: 1 each Ofloxacin (Ocuflox 0.3% Eye Drops -) 1 drop OD Q4HWA [facility] Last Admin: 10/26/16 06:48 Dose: 1 drop Potassium Chloride (Potassium Chloride Oral Liquid) 40 meq GT BID [facility] Last Admin: 10/25/16 22:51 Dose: 40 meq Prednisolone Acetate (Pred Forte 1% -) 1 drop OD BID [facility] Last Admin: 10/25/16 22:53 Dose: 1 drp Ranitidine HCl (Zantac Oral Solution -) 150 mg PO BID [facility] Last Admin: 10/25/16 22:51 Dose: 150 mg - Objective Vital Signs: Vital Signs Temperature 99.3 F 10/26/16 06:00 Pulse Rate 84 10/26/16 06:00 Respiratory Rate 12 10/26/16 06:26 Blood Pressure 105/65 10/26/16 06:00 O2 Sat by Pulse Oximetry (%) 100 10/25/16 21:00 Patient more responsive, on Vent HEENT: Trach at the place, need intermittent Vent support, mm most, anemia NECK; No JVD No Bruit CHEST: Good AE minimal crests ABD; S/P PEG tube, minimal discharge from wound, colostomy at place BS + EXT; extensive edema, skin peeling and gangrene of distal extremities 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 DERM; gradually healing extensive skin peeling and gangrene of fingers and toes Labs: CBC, BMP 10/25/16 08:00 10/25/16 08:00 INR, PTT INR 1.14 (0.82-1.09) 09/07/16 22:45 Fibrinogen > 700.0 mg/dL (238-498) H 07/31/16 05:40 Problem List - Problems (1) Perforated abdominal viscus Assessment/Plan: Patient was presented with Rt UQ pain and with free air, Duodenal ulcer perforation s/p surgery. now fistula formation draining exudates.fistula still has discharge , patient has colostomy bag at place. (2) Acute metabolic encephalopathy Assessment/Plan: Secondary to hypoperfusion due to septic shock, gradually improving, most likely hypoxic encephalopathy. Code(s): G93.41 - METABOLIC ENCEPHALOPATHY (3) Ischemia of extremity Assessment/Plan: Ischemia off all extremities due to prolonged vasopressor use, patient needed pressure to maintain BP, now off pressors wound care healing slowly. Code(s): I99.8 - OTHER DISORDER OF CIRCULATORY SYSTEM (4) Sepsis Assessment/Plan: Due to perforated gastric now off pressors, now off abx day 2nd.. Code(s): A41.9 - SEPSIS, UNSPECIFIED ORGANISM (5) Severe malnutrition Assessment/Plan: S/P PG tolerating feeding remove NG tube, Nutrition consult.. Code(s): E43 - UNSPECIFIED SEVERE PROTEIN-CALORIE MALNUTRITION (6) Diabetes mellitus Assessment/Plan: Better controlled add basal insulin Levimir and correction dose insulin. Code(s): E11.9 - TYPE 2 DIABETES MELLITUS WITHOUT COMPLICATIONS Qualifiers: Diabetes mellitus type: type 2
[2016-10-26] MEDS: RANITIDINE HCL 150 MG/10 ML UNIT-DOSE CUP PO SCH ×2 (11:55→22:30)
[2016-10-26] MEDS: POTASSIUM CHLORIDE ORAL LIQUID 20 MEQ/15 ML GT SCH ×2 (11:56→22:30)
[2016-10-26] MEDS: ENOXAPARIN NA (PORCINE) 40 MG/0.4 ML DISP.SYRIN SQ SCH ×2 (11:56→22:37)
[2016-10-26] MEDS: MAGNESIUM OXIDE 400 MG TABLET (FP) GT SCH ×2 (11:56→22:31)
[2016-10-26] MEDS: FUROSEMIDE 20 MG TABLET (FP) GT SCH (11:56)
[2016-10-26] MEDS: prednisoLONE ACETATE 1% OPHTH SUSP 5 ML BOTTLE OD SCH ×2 (11:59→22:36)
[2016-10-26] MEDS: COLLAGENASE CLOSTRIDIUM HIST. 30 GRAMS TUBE TP SCH (11:59)
[2016-10-26] MEDS: CLOTRIMAZOLE/BETAMET DIPROP 15 GM TUBE TP SCH ×2 (11:59→22:36)
--- NOTE | 2016-10-26 12:11 | PN ---
Progress Note (short form) - Note Progress Note: PULMONARY No fevers recorded. Tolerating CPAP/PS. Last Vital Signs Temp Pulse Resp BP Pulse Ox 99.3 F 84 12 105/65 100 10/26/16 06:00 10/26/16 11:13 10/26/16 11:13 10/26/16 06:00 10/26/16 11:13 Gen: vented, awake Heart: RRR Lung: bilateral rhonchi Abd: soft, nontender, +fistula drainage Ext: multiple ulcers, dry gangrene of bilateral feet, fingers CBC, BMP 10/25/16 08:00 10/25/16 08:00 Active Medications Acetaminophen (Tylenol Oral Solution -) 650 mg PO Q4H PRN PRN Reason: FEVER OR PAIN Last Admin: 10/19/16 10:03 Dose: 650 mg Clotrimazole (Lotrisone Cream (Small Tube)) 1 applic TP BID [facility] Last Admin: 10/26/16 11:59 Dose: 1 applic Collagenase (Santyl -) 1 applic TP DAILY [facility] Last Admin: 10/26/16 11:59 Dose: 1 applic Dextrose (D50w (Vial) -) 50 gm IVPUSH Q15M PRN PRN Reason: BLOOD SUGAR < 60 Enoxaparin Sodium (Lovenox -) 40 mg SQ BID [facility] Last Admin: 10/26/16 11:56 Dose: 40 mg Furosemide (Lasix -) 20 mg GT DAILY [facility] Last Admin: 10/26/16 11:56 Dose: 20 mg IV Flush (Picc Line Flush) 8 ml IVPUSH PRN PRN PRN Reason: Protocol Last Admin: 10/24/16 09:10 Dose: 8 ml Insulin Aspart (Novolog Vial Sliding Scale -) 1 vial SQ ACHS [facility] PRN Reason: Protocol Last Admin: 10/26/16 12:05 Dose: Not Given Insulin Detemir (Levemir Vial) 40 units SQ HS [facility] Last Admin: 10/25/16 22:58 Dose: 40 units Magnesium Oxide (Mag-Ox -) 400 mg GT BID [facility] Last Admin: 10/26/16 11:56 Dose: 400 mg Miscellaneous (Duragesic Patch Waste) 1 each TD PRN PRN PRN Reason: PAIN Last Admin: 09/26/16 15:41 Dose: 1 each Ofloxacin (Ocuflox 0.3% Eye Drops -) 1 drop OD Q4HWA [facility] Last Admin: 10/26/16 11:59 Dose: 1 drop Potassium Chloride (Potassium Chloride Oral Liquid) 40 meq GT BID [facility] Last Admin: 10/26/16 11:56 Dose: 40 meq Prednisolone Acetate (Pred Forte 1% -) 1 drop OD BID [facility] Last Admin: 10/26/16 11:59 Dose: 1 drp Ranitidine HCl (Zantac Oral Solution -) 150 mg PO BID [facility] Last Admin: 10/26/16 11:55 Dose: 150 mg A/P Perforated Duodenal Ulcer Peritonitis s/p ex-lap/omental patch repair 07/16 Enterocutaneous Fistula Acute Respiratory Failure s/p Tracheostomy s/p Septic Shock DM DVT Gangrene s/p PEA Cardiac Arrest - continue anticoagulation - enteral feeds - spontaneous breathing trials as tolerated - DVT/GI prophylaxis - d/c planning in progress
--- NOTE | 2016-10-26 15:12 | PN ---
Progress Note, Physician History of Present Illness: Pt arousable, without distress. Mild temperature elevations. Noted to have loose BM. - Current Medication List Current Medications: Active Medications Acetaminophen (Tylenol Oral Solution -) 650 mg PO Q4H PRN PRN Reason: FEVER OR PAIN Last Admin: 10/19/16 10:03 Dose: 650 mg Clotrimazole (Lotrisone Cream (Small Tube)) 1 applic TP BID [facility] Last Admin: 10/26/16 11:59 Dose: 1 applic Collagenase (Santyl -) 1 applic TP DAILY [facility] Last Admin: 10/26/16 11:59 Dose: 1 applic Dextrose (D50w (Vial) -) 50 gm IVPUSH Q15M PRN PRN Reason: BLOOD SUGAR < 60 Enoxaparin Sodium (Lovenox -) 40 mg SQ BID [facility] Last Admin: 10/26/16 11:56 Dose: 40 mg Furosemide (Lasix -) 20 mg GT DAILY [facility] Last Admin: 10/26/16 11:56 Dose: 20 mg IV Flush (Picc Line Flush) 8 ml IVPUSH PRN PRN PRN Reason: Protocol Last Admin: 10/24/16 09:10 Dose: 8 ml Insulin Aspart (Novolog Vial Sliding Scale -) 1 vial SQ ACHS [facility] PRN Reason: Protocol Last Admin: 10/26/16 12:05 Dose: Not Given Insulin Detemir (Levemir Vial) 40 units SQ HS [facility] Last Admin: 10/25/16 22:58 Dose: 40 units Magnesium Oxide (Mag-Ox -) 400 mg GT BID [facility] Last Admin: 10/26/16 11:56 Dose: 400 mg Miscellaneous (Duragesic Patch Waste) 1 each TD PRN PRN PRN Reason: PAIN Last Admin: 09/26/16 15:41 Dose: 1 each Ofloxacin (Ocuflox 0.3% Eye Drops -) 1 drop OD Q4HWA [facility] Last Admin: 10/26/16 11:59 Dose: 1 drop Potassium Chloride (Potassium Chloride Oral Liquid) 40 meq GT BID [facility] Last Admin: 10/26/16 11:56 Dose: 40 meq Prednisolone Acetate (Pred Forte 1% -) 1 drop OD BID [facility] Last Admin: 10/26/16 11:59 Dose: 1 drp Ranitidine HCl (Zantac Oral Solution -) 150 mg PO BID [facility] Last Admin: 10/26/16 11:55 Dose: 150 mg - Objective Vital Signs: Vital Signs Temperature 98.4 F 10/26/16 14:31 Pulse Rate 95 H 10/26/16 14:31 Respiratory Rate 12 10/26/16 14:31 Blood Pressure 105/58 10/26/16 14:31 O2 Sat by Pulse Oximetry (%) 100 10/26/16 12:33 Constitutional: Yes: No Distress Neck: Yes: Supple Cardiovascular: Yes: Regular Rate and Rhythm Respiratory: Yes: CTA Bilaterally Gastrointestinal: Yes: Normal Bowel Sounds, Soft, Other (+loose stool) Extremities: Yes: Other (gangrene of hands/toes) Integumentary: Yes: WNL Labs: CBC, BMP 10/25/16 08:00 10/25/16 08:00 INR, PTT INR 1.14 (0.82-1.09) 09/07/16 22:45 Fibrinogen > 700.0 mg/dL (238-498) H 07/31/16 05:40 Problem List - Problems (1) Cardiac arrest due to respiratory disorder Code(s): J98.9 - RESPIRATORY DISORDER, UNSPECIFIED I46.8 - CARDIAC ARREST DUE TO OTHER UNDERLYING CONDITION (2) Diabetes mellitus Code(s): E11.9 - TYPE 2 DIABETES MELLITUS WITHOUT COMPLICATIONS Qualifiers: Diabetes mellitus type: type 2 (3) Perforated abdominal viscus Code(s): [id number] - (4) Sepsis Code(s): A41.9 - SEPSIS, UNSPECIFIED ORGANISM (5) Pseudomonas pneumonia Code(s): J15.1 - PNEUMONIA DUE TO PSEUDOMONAS (6) Respiratory failure Code(s): J96.90 - RESPIRATORY FAILURE, UNSP, UNSP W HYPOXIA OR HYPERCAPNIA Assessment/Plan Loose BM Low grade fever r/o C. difficile - continue monitor off antibiotics for now - send stool for c. dif testing - cbc ordered for tomorrow - continue supportive care
[2016-10-26] MEDS: INSULIN DETEMIR 100 UNITS/ML MDV SQ SCH (22:31)
[2016-10-26] MEDS: ACETAMINOPHEN 650 MG/20.3 ML ORAL SOLUTION (CUPS) PO PRN (22:31)
[2016-10-26] MEDS ORDERED: INSULIN (NOVOLOG) ASPART 100 UNITS/ML 10ML VIAL ONE (22:38)
[2016-10-27] MEDS: OFLOXACIN 0.3% OPHTHALMIC SOLUTION 5 ML BOTTLE OD SCH ×5 (06:41→22:23)
[2016-10-27] MEDS: INSULIN SLIDING SCALE (NOVOLOG) 1 VIAL SQ SCH ×4 (06:41→22:19)
[2016-10-27] MEDS ORDERED: PT OWN MED DRAWER 7, Y5N ONE ×2 (06:46→10:25)
[2016-10-27] MEDS ORDERED: INSULIN (NOVOLOG) ASPART 100 UNITS/ML 10ML VIAL ONE (06:46)
--- NOTE | 2016-10-27 08:29 | PN ---
Progress Note, Physician Chief Complaint: Remained at her base line , , low grade fever , opens eye to verbal command, on Vent Saturating well, + extremities movement s/p PEA cardiac arrest reviewed now on Vent. remained afebrile. History of Present Illness: 65-year-old F H/O hypertension, hypercholesterolemia, T2DM, ETOH abuse, admitted with perforated duodenal ulcer with sepsis, prolonged complicated course with respiratory failure s/p incubation, tracheostomy now vent dependent and PEG - Current Medication List Current Medications: Active Medications Acetaminophen (Tylenol Oral Solution -) 650 mg PO Q4H PRN PRN Reason: FEVER OR PAIN Last Admin: 10/26/16 22:31 Dose: 650 mg Clotrimazole (Lotrisone Cream (Small Tube)) 1 applic TP BID [facility] Last Admin: 10/26/16 22:36 Dose: 1 applic Collagenase (Santyl -) 1 applic TP DAILY [facility] Last Admin: 10/26/16 11:59 Dose: 1 applic Dextrose (D50w (Vial) -) 50 gm IVPUSH Q15M PRN PRN Reason: BLOOD SUGAR < 60 Enoxaparin Sodium (Lovenox -) 40 mg SQ BID [facility] Last Admin: 10/26/16 22:37 Dose: 40 mg Furosemide (Lasix -) 20 mg GT DAILY [facility] Last Admin: 10/26/16 11:56 Dose: 20 mg IV Flush (Picc Line Flush) 8 ml IVPUSH PRN PRN PRN Reason: Protocol Last Admin: 10/24/16 09:10 Dose: 8 ml Insulin Aspart (Novolog Vial Sliding Scale -) 1 vial SQ ACHS [facility] PRN Reason: Protocol Last Admin: 10/27/16 06:41 Dose: Not Given Insulin Detemir (Levemir Vial) 40 units SQ HS [facility] Last Admin: 10/26/16 22:31 Dose: 40 units Magnesium Oxide (Mag-Ox -) 400 mg GT BID [facility] Last Admin: 10/26/16 22:31 Dose: 400 mg Miscellaneous (Duragesic Patch Waste) 1 each TD PRN PRN PRN Reason: PAIN Last Admin: 09/26/16 15:41 Dose: 1 each Ofloxacin (Ocuflox 0.3% Eye Drops -) 1 drop OD Q4HWA [facility] Last Admin: 10/27/16 06:41 Dose: 1 drop Potassium Chloride (Potassium Chloride Oral Liquid) 40 meq GT BID [facility] Last Admin: 10/26/16 22:30 Dose: 40 meq Prednisolone Acetate (Pred Forte 1% -) 1 drop OD BID [facility] Last Admin: 10/26/16 22:36 Dose: 1 drp Ranitidine HCl (Zantac Oral Solution -) 150 mg PO BID [facility] Last Admin: 10/26/16 22:30 Dose: 150 mg - Objective Vital Signs: Vital Signs Temperature 98.3 F 10/27/16 06:00 Pulse Rate 79 10/27/16 06:00 Respiratory Rate 16 10/27/16 06:00 Blood Pressure 107/52 10/27/16 06:00 O2 Sat by Pulse Oximetry (%) 99 10/27/16 02:34 Patient remained altered responding to verbal command. 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 DERM; gradually healing extensive skin peeling and gangrene of fingers and toes Labs: CBC, BMP 10/25/16 08:00 10/25/16 08:00 INR, PTT INR 1.14 (0.82-1.09) 09/07/16 22:45 Fibrinogen > 700.0 mg/dL (238-498) H 07/31/16 05:40 Problem List - Problems (1) Perforated abdominal viscus Assessment/Plan: Patient was presented with Rt UQ pain and with free air, Duodenal ulcer perforation s/p surgery. now fistula formation draining exudates.fistula still has discharge evaluate by surgery. and GI consult, patient has colostomy bag at place. (2) Acute metabolic encephalopathy Assessment/Plan: Secondary to hypoperfusion due to septic shock, at present no significant improvement , most likely hypoxic encephalopathy. Code(s): G93.41 - METABOLIC ENCEPHALOPATHY (3) Ischemia of extremity Assessment/Plan: Ischemia off all extremities due to prolonged vasopressor use, patient needed pressure to maintain BP, now off pressors wound care healing slowly. Code(s): I99.8 - OTHER DISORDER OF CIRCULATORY SYSTEM (4) Sepsis Assessment/Plan: Due to perforated gastric now off pressors, now off abx day2nd.. Code(s): A41.9 - SEPSIS, UNSPECIFIED ORGANISM (5) Severe malnutrition Assessment/Plan: S/P PG tolerating feeding remove NG tube, Nutrition consult.. Code(s): E43 - UNSPECIFIED SEVERE PROTEIN-CALORIE MALNUTRITION (6) Diabetes mellitus Assessment/Plan: Better controlled add basal insulin Levimir 40 units and correction dose insulin. Code(s): E11.9 - TYPE 2 DIABETES MELLITUS WITHOUT COMPLICATIONS Qualifiers: Diabetes mellitus type: type 2
[2016-10-27 09:11] LABS: BASOPHIL 1.2 % (0-2.0); EOSINOPHIL 5.2 % (0-4.5); MCH 29.7 pg (25.7-33.7); MCHC 33.1 g/dl (32.0-36.0); MEAN CELL VOLUME 89.7 fl (80-96); MEAN PLT VOLUME 7.1 fl (7.5-11.1); NEUTROPHILS 56.5 % (42.8-82.8); PLATELET COUNT 341 K/MM3 (134-434); RDW 15.8 % (11.6-15.6); WHITE BLOOD COUNT 7.5 K/mm3 (4.0-10.0)
[2016-10-27] MEDS: POTASSIUM CHLORIDE ORAL LIQUID 20 MEQ/15 ML GT SCH ×2 (10:48→23:07)
[2016-10-27] MEDS: MAGNESIUM OXIDE 400 MG TABLET (FP) GT SCH ×2 (10:48→22:22)
[2016-10-27] MEDS: FUROSEMIDE 20 MG TABLET (FP) GT SCH (10:48)
[2016-10-27] MEDS: RANITIDINE HCL 150 MG/10 ML UNIT-DOSE CUP PO SCH ×2 (10:48→23:07)
[2016-10-27] MEDS: prednisoLONE ACETATE 1% OPHTH SUSP 5 ML BOTTLE OD SCH ×2 (10:49→22:23)
[2016-10-27] MEDS: ENOXAPARIN NA (PORCINE) 40 MG/0.4 ML DISP.SYRIN SQ SCH ×2 (10:50→22:21)
[2016-10-27] MEDS: COLLAGENASE CLOSTRIDIUM HIST. 30 GRAMS TUBE TP SCH (10:50)
[2016-10-27] MEDS: CLOTRIMAZOLE/BETAMET DIPROP 15 GM TUBE TP SCH ×2 (10:50→22:22)
--- NOTE | 2016-10-27 14:09 | PN ---
Progress Note, Physician History of Present Illness: continue current mgmt patient doing well - Current Medication List Current Medications: Active Medications Acetaminophen (Tylenol Oral Solution -) 650 mg PO Q4H PRN PRN Reason: FEVER OR PAIN Last Admin: 10/26/16 22:31 Dose: 650 mg Clotrimazole (Lotrisone Cream (Small Tube)) 1 applic TP BID [facility] Last Admin: 10/27/16 10:50 Dose: 1 applic Collagenase (Santyl -) 1 applic TP DAILY [facility] Last Admin: 10/27/16 10:50 Dose: 1 applic Dextrose (D50w (Vial) -) 50 gm IVPUSH Q15M PRN PRN Reason: BLOOD SUGAR < 60 Enoxaparin Sodium (Lovenox -) 40 mg SQ BID [facility] Last Admin: 10/27/16 10:50 Dose: 40 mg Furosemide (Lasix -) 20 mg GT DAILY [facility] Last Admin: 10/27/16 10:48 Dose: 20 mg IV Flush (Picc Line Flush) 8 ml IVPUSH PRN PRN PRN Reason: Protocol Last Admin: 10/24/16 09:10 Dose: 8 ml Insulin Aspart (Novolog Vial Sliding Scale -) 1 vial SQ ACHS [facility] PRN Reason: Protocol Last Admin: 10/27/16 12:19 Dose: Not Given Insulin Detemir (Levemir Vial) 40 units SQ HS [facility] Last Admin: 10/26/16 22:31 Dose: 40 units Magnesium Oxide (Mag-Ox -) 400 mg GT BID [facility] Last Admin: 10/27/16 10:48 Dose: 400 mg Miscellaneous (Duragesic Patch Waste) 1 each TD PRN PRN PRN Reason: PAIN Last Admin: 09/26/16 15:41 Dose: 1 each Ofloxacin (Ocuflox 0.3% Eye Drops -) 1 drop OD Q4HWA [facility] Last Admin: 10/27/16 10:50 Dose: 1 drop Potassium Chloride (Potassium Chloride Oral Liquid) 40 meq GT BID [facility] Last Admin: 10/27/16 10:48 Dose: 40 meq Prednisolone Acetate (Pred Forte 1% -) 1 drop OD BID [facility] Last Admin: 10/27/16 10:49 Dose: 1 drp Ranitidine HCl (Zantac Oral Solution -) 150 mg PO BID [facility] Last Admin: 10/27/16 10:48 Dose: 150 mg - Objective Vital Signs: Vital Signs Temperature 99.3 F 10/27/16 09:01 Pulse Rate 82 10/27/16 09:35 Respiratory Rate 20 10/27/16 10:00 Blood Pressure 118/53 10/27/16 09:01 O2 Sat by Pulse Oximetry (%) 100 10/27/16 10:00 Constitutional: Yes: No Distress, Calm Cardiovascular: Yes: Regular Rate and Rhythm Respiratory: Yes: Poor Air Entry, Rhonchi, Other (pacc valve in place) Gastrointestinal: Yes: Normal Bowel Sounds, Soft, Other (peg tube in place) Musculoskeletal: Yes: WNL Extremities: Yes: Other Wound/Incision: Yes: Other Neurological: Yes: Alert, Other Labs: CBC, BMP 10/27/16 08:45 10/25/16 08:00 INR, PTT INR 1.14 (0.82-1.09) 09/07/16 22:45 Fibrinogen > 700.0 mg/dL (238-498) H 07/31/16 05:40 Assessment/Plan Problem List - Problems (1) Abdominal pain Code(s): R10.9 - UNSPECIFIED ABDOMINAL PAIN Qualifiers: Qualified Code(s): R10.33 - Periumbilical pain (2) Perforated abdominal viscus Code(s): [id number] - (3) Perforated viscus Code(s): R19.8 - OTH SYMPTOMS AND SIGNS INVOLVING THE DGSTV SYS AND ABDOMEN (4) Hypertension Code(s): I10 - ESSENTIAL (PRIMARY) HYPERTENSION Qualifiers: Qualified Code(s): I10 - Essential (primary) hypertension lactic acidosis fevers generalized swelling gangrene of the tip of the fingers noted pseudomonas pneumonia plan patient passed ab swallow i think we should encourage to start orally and remove the peg tube eventually digits probably will end up getting auto amputated
--- NOTE | 2016-10-27 15:39 | PN ---
Progress Note, Physician History of Present Illness: pulmoary alert,nad on vent support - Current Medication List Current Medications: Active Medications Acetaminophen (Tylenol Oral Solution -) 650 mg PO Q4H PRN PRN Reason: FEVER OR PAIN Last Admin: 10/26/16 22:31 Dose: 650 mg Clotrimazole (Lotrisone Cream (Small Tube)) 1 applic TP BID [facility] Last Admin: 10/27/16 10:50 Dose: 1 applic Collagenase (Santyl -) 1 applic TP DAILY [facility] Last Admin: 10/27/16 10:50 Dose: 1 applic Dextrose (D50w (Vial) -) 50 gm IVPUSH Q15M PRN PRN Reason: BLOOD SUGAR < 60 Enoxaparin Sodium (Lovenox -) 40 mg SQ BID [facility] Last Admin: 10/27/16 10:50 Dose: 40 mg Furosemide (Lasix -) 20 mg GT DAILY [facility] Last Admin: 10/27/16 10:48 Dose: 20 mg IV Flush (Picc Line Flush) 8 ml IVPUSH PRN PRN PRN Reason: Protocol Last Admin: 10/24/16 09:10 Dose: 8 ml Insulin Aspart (Novolog Vial Sliding Scale -) 1 vial SQ ACHS [facility] PRN Reason: Protocol Last Admin: 10/27/16 12:19 Dose: Not Given Insulin Detemir (Levemir Vial) 40 units SQ HS [facility] Last Admin: 10/26/16 22:31 Dose: 40 units Magnesium Oxide (Mag-Ox -) 400 mg GT BID [facility] Last Admin: 10/27/16 10:48 Dose: 400 mg Miscellaneous (Duragesic Patch Waste) 1 each TD PRN PRN PRN Reason: PAIN Last Admin: 09/26/16 15:41 Dose: 1 each Ofloxacin (Ocuflox 0.3% Eye Drops -) 1 drop OD Q4HWA [facility] Last Admin: 10/27/16 14:26 Dose: 1 drop Potassium Chloride (Potassium Chloride Oral Liquid) 40 meq GT BID [facility] Last Admin: 10/27/16 10:48 Dose: 40 meq Prednisolone Acetate (Pred Forte 1% -) 1 drop OD BID [facility] Last Admin: 10/27/16 10:49 Dose: 1 drp Ranitidine HCl (Zantac Oral Solution -) 150 mg PO BID [facility] Last Admin: 10/27/16 10:48 Dose: 150 mg - Objective Vital Signs: Vital Signs Temperature 98.3 F 10/27/16 14:00 Pulse Rate 86 10/27/16 14:00 Respiratory Rate 20 10/27/16 14:00 Blood Pressure 119/70 10/27/16 14:00 O2 Sat by Pulse Oximetry (%) 100 10/27/16 10:00 Constitutional: Yes: Calm, Thin Eyes: Yes: WNL HENT: Yes: WNL Neck: Yes: Supple (trach) Cardiovascular: Yes: Regular Rate and Rhythm, S1, S2 Respiratory: Yes: Rhonchi (few scattered elia rhonchi) Gastrointestinal: Yes: Normal Bowel Sounds, Soft Extremities: Yes: Other (elia gangrene sofia and feet) Edema: No Labs: CBC, BMP 10/27/16 08:45 10/25/16 08:00 INR, PTT INR 1.14 (0.82-1.09) 09/07/16 22:45 Fibrinogen > 700.0 mg/dL (238-498) H 07/31/16 05:40 Problem List - Problems (1) ZAHIRA (acute kidney injury) Code(s): N17.9 - ACUTE KIDNEY FAILURE, UNSPECIFIED (2) Acute metabolic encephalopathy Code(s): G93.41 - METABOLIC ENCEPHALOPATHY (3) Ischemia of extremity Code(s): I99.8 - OTHER DISORDER OF CIRCULATORY SYSTEM (4) Metabolic acidemia Code(s): E87.2 - ACIDOSIS (5) Perforated abdominal viscus Code(s): [id number] - (6) Sepsis Code(s): A41.9 - SEPSIS, UNSPECIFIED ORGANISM (7) Acute respiratory failure Code(s): J96.00 - ACUTE RESPIRATORY FAILURE, UNSP W HYPOXIA OR HYPERCAPNIA Assessment/Plan ASSESSMENT AND PLAN: Perforated Duodenal Ulcer Peritonitis s/p ex-lap/omental patch repair 07/16 Enterocutaneous Fistula Acute Respiratory Failure s/p Tracheostomy s/p Septic Shock DM DVT Gangrene s/p PEA Cardiac Arrest - Fio2 to keep Spo2 >90% - anticoagulation - morphine for comfort - enteral feeds as tolerated - DVT/GI prophylaxis - wean as tolerated - placement DR OSEI
[2016-10-27] MEDS: INSULIN DETEMIR 100 UNITS/ML MDV SQ SCH (22:20)
[2016-10-28] MEDS: INSULIN SLIDING SCALE (NOVOLOG) 1 VIAL SQ SCH ×4 (06:14→22:27)
[2016-10-28] MEDS: OFLOXACIN 0.3% OPHTHALMIC SOLUTION 5 ML BOTTLE OD SCH ×5 (06:14→22:28)
[2016-10-28] MEDS ORDERED: PT OWN MED DRAWER 7, Y5N ONE ×2 (09:10→18:26)
[2016-10-28] MEDS: MAGNESIUM OXIDE 400 MG TABLET (FP) GT SCH ×2 (09:11→22:28)
[2016-10-28] MEDS: RANITIDINE HCL 150 MG/10 ML UNIT-DOSE CUP PO SCH ×2 (09:11→22:28)
[2016-10-28] MEDS: POTASSIUM CHLORIDE ORAL LIQUID 20 MEQ/15 ML GT SCH ×2 (09:11→22:28)
[2016-10-28] MEDS: FUROSEMIDE 20 MG TABLET (FP) GT SCH (09:11)
[2016-10-28] MEDS: CLOTRIMAZOLE/BETAMET DIPROP 15 GM TUBE TP SCH ×2 (09:12→22:28)
[2016-10-28] MEDS: ENOXAPARIN NA (PORCINE) 40 MG/0.4 ML DISP.SYRIN SQ SCH ×2 (09:13→22:28)
[2016-10-28] MEDS: prednisoLONE ACETATE 1% OPHTH SUSP 5 ML BOTTLE OD SCH ×2 (09:26→22:28)
[2016-10-28] MEDS: COLLAGENASE CLOSTRIDIUM HIST. 30 GRAMS TUBE TP SCH (09:26)
--- NOTE | 2016-10-28 10:23 | PN ---
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 Pt is an excellent candidate for continued use of PMV and PO initiation with goal to wean from ventilator and tube feeding. I believe prognosis is good for both. Selected Entries 10/27/16 10/27/16 10/27/16 02:00 02:34 06:00 Supper NPO Temperature 97.8 F 98.3 F 10/27/16 10/27/16 10/27/16 09:01 14:00 18:45 Supper Temperature 99.3 F 98.3 F 99.0 F 10/27/16 10/28/16 20:05 06:00 Supper NPO Temperature 98.0 F Laboratory Tests 10/27/16 08:45 WBC 7.5 REC follow up by speech pathology for PMV/swallowing f/u/cognitive rehabilitation.
[2016-10-28] MEDS ORDERED: INSULIN (NOVOLOG) ASPART 100 UNITS/ML 10ML VIAL ONE ×2 (13:20→18:26)
--- NOTE | 2016-10-28 15:02 | PN ---
Progress Note, Physician History of Present Illness: pulmonary awake on IMV mode,- resp distress - Current Medication List Current Medications: Active Medications Acetaminophen (Tylenol Oral Solution -) 650 mg PO Q4H PRN PRN Reason: FEVER OR PAIN Last Admin: 10/26/16 22:31 Dose: 650 mg Clotrimazole (Lotrisone Cream (Small Tube)) 1 applic TP BID [facility] Last Admin: 10/28/16 09:12 Dose: 1 applic Collagenase (Santyl -) 1 applic TP DAILY [facility] Last Admin: 10/28/16 09:26 Dose: 1 applic Dextrose (D50w (Vial) -) 50 gm IVPUSH Q15M PRN PRN Reason: BLOOD SUGAR < 60 Enoxaparin Sodium (Lovenox -) 40 mg SQ BID [facility] Last Admin: 10/28/16 09:13 Dose: 40 mg Furosemide (Lasix -) 20 mg GT DAILY [facility] Last Admin: 10/28/16 09:11 Dose: 20 mg IV Flush (Picc Line Flush) 8 ml IVPUSH PRN PRN PRN Reason: Protocol Last Admin: 10/24/16 09:10 Dose: 8 ml Insulin Aspart (Novolog Vial Sliding Scale -) 1 vial SQ ACHS [facility] PRN Reason: Protocol Last Admin: 10/28/16 13:24 Dose: Not Given Insulin Detemir (Levemir Vial) 40 units SQ HS [facility] Last Admin: 10/27/16 22:20 Dose: 40 units Magnesium Oxide (Mag-Ox -) 400 mg GT BID [facility] Last Admin: 10/28/16 09:11 Dose: 400 mg Miscellaneous (Duragesic Patch Waste) 1 each TD PRN PRN PRN Reason: PAIN Last Admin: 09/26/16 15:41 Dose: 1 each Ofloxacin (Ocuflox 0.3% Eye Drops -) 1 drop OD Q4HWA [facility] Last Admin: 10/28/16 13:22 Dose: 1 drop Potassium Chloride (Potassium Chloride Oral Liquid) 40 meq GT BID [facility] Last Admin: 10/28/16 09:11 Dose: 40 meq Prednisolone Acetate (Pred Forte 1% -) 1 drop OD BID [facility] Last Admin: 10/28/16 09:26 Dose: 1 drp Ranitidine HCl (Zantac Oral Solution -) 150 mg PO BID [facility] Last Admin: 10/28/16 09:11 Dose: 150 mg - Objective Vital Signs: Vital Signs Temperature 99.2 F 10/28/16 09:30 Pulse Rate 96 H 10/28/16 12:45 Respiratory Rate 21 10/28/16 14:25 Blood Pressure 102/53 10/28/16 12:45 O2 Sat by Pulse Oximetry (%) 100 10/28/16 10:35 Constitutional: Yes: Calm, Thin Eyes: Yes: WNL HENT: Yes: WNL Neck: Yes: Supple (trach) Cardiovascular: Yes: Regular Rate and Rhythm, S1, S2 Respiratory: Yes: Rhonchi (few rhonchi) Gastrointestinal: Yes: Normal Bowel Sounds, Soft Extremities: Yes: Other (bilateral gangrene hands and feet) Edema: No Problem List - Problems (1) ZAHIRA (acute kidney injury) Code(s): N17.9 - ACUTE KIDNEY FAILURE, UNSPECIFIED (2) Acute metabolic encephalopathy Code(s): G93.41 - METABOLIC ENCEPHALOPATHY (3) Ischemia of extremity Code(s): I99.8 - OTHER DISORDER OF CIRCULATORY SYSTEM (4) Metabolic acidemia Code(s): E87.2 - ACIDOSIS (5) Perforated abdominal viscus Code(s): [id number] - (6) Sepsis Code(s): A41.9 - SEPSIS, UNSPECIFIED ORGANISM (7) Acute respiratory failure Code(s): J96.00 - ACUTE RESPIRATORY FAILURE, UNSP W HYPOXIA OR HYPERCAPNIA Assessment/Plan ASSESSMENT AND PLAN: Perforated Duodenal Ulcer Peritonitis s/p ex-lap/omental patch repair 07/16 Enterocutaneous Fistula Acute Respiratory Failure s/p Tracheostomy s/p Septic Shock DM DVT Gangrene s/p PEA Cardiac Arrest - Fio2 to keep Spo2 >90% - anticoagulation - morphine for comfort - enteral feeds as tolerated - DVT/GI prophylaxis - wean as tolerated - placement DR OSEI
--- NOTE | 2016-10-28 15:47 | PN ---
Progress Note, Physician History of Present Illness: continue current mgmt patient doing well no new issues - Current Medication List Current Medications: Active Medications Acetaminophen (Tylenol Oral Solution -) 650 mg PO Q4H PRN PRN Reason: FEVER OR PAIN Last Admin: 10/26/16 22:31 Dose: 650 mg Clotrimazole (Lotrisone Cream (Small Tube)) 1 applic TP BID [facility] Last Admin: 10/28/16 09:12 Dose: 1 applic Collagenase (Santyl -) 1 applic TP DAILY [facility] Last Admin: 10/28/16 09:26 Dose: 1 applic Dextrose (D50w (Vial) -) 50 gm IVPUSH Q15M PRN PRN Reason: BLOOD SUGAR < 60 Enoxaparin Sodium (Lovenox -) 40 mg SQ BID [facility] Last Admin: 10/28/16 09:13 Dose: 40 mg Furosemide (Lasix -) 20 mg GT DAILY [facility] Last Admin: 10/28/16 09:11 Dose: 20 mg IV Flush (Picc Line Flush) 8 ml IVPUSH PRN PRN PRN Reason: Protocol Last Admin: 10/24/16 09:10 Dose: 8 ml Insulin Aspart (Novolog Vial Sliding Scale -) 1 vial SQ ACHS [facility] PRN Reason: Protocol Last Admin: 10/28/16 13:24 Dose: Not Given Insulin Detemir (Levemir Vial) 40 units SQ HS [facility] Last Admin: 10/27/16 22:20 Dose: 40 units Magnesium Oxide (Mag-Ox -) 400 mg GT BID [facility] Last Admin: 10/28/16 09:11 Dose: 400 mg Miscellaneous (Duragesic Patch Waste) 1 each TD PRN PRN PRN Reason: PAIN Last Admin: 09/26/16 15:41 Dose: 1 each Ofloxacin (Ocuflox 0.3% Eye Drops -) 1 drop OD Q4HWA [facility] Last Admin: 10/28/16 13:22 Dose: 1 drop Potassium Chloride (Potassium Chloride Oral Liquid) 40 meq GT BID [facility] Last Admin: 10/28/16 09:11 Dose: 40 meq Prednisolone Acetate (Pred Forte 1% -) 1 drop OD BID [facility] Last Admin: 10/28/16 09:26 Dose: 1 drp Ranitidine HCl (Zantac Oral Solution -) 150 mg PO BID [facility] Last Admin: 10/28/16 09:11 Dose: 150 mg - Objective Vital Signs: Vital Signs Temperature 97.6 F 10/28/16 14:25 Pulse Rate 93 H 10/28/16 14:25 Respiratory Rate 93 H 10/28/16 14:25 Blood Pressure 127/58 10/28/16 14:25 O2 Sat by Pulse Oximetry (%) 100 10/28/16 10:35 Constitutional: Yes: No Distress, Calm Cardiovascular: Yes: Regular Rate and Rhythm Respiratory: Yes: Regular, Other (pacc valve) Gastrointestinal: Yes: Normal Bowel Sounds, Soft, Other (peg in place) Musculoskeletal: Yes: Other Extremities: Yes: Other (dry gangrene) Neurological: Yes: Alert Psychiatric: Yes: Alert Labs: CBC, BMP 10/27/16 08:45 10/25/16 08:00 INR, PTT INR 1.14 (0.82-1.09) 09/07/16 22:45 Fibrinogen > 700.0 mg/dL (238-498) H 07/31/16 05:40 Assessment/Plan Problem List - Problems (1) Abdominal pain Code(s): R10.9 - UNSPECIFIED ABDOMINAL PAIN Qualifiers: Qualified Code(s): R10.33 - Periumbilical pain (2) Perforated abdominal viscus Code(s): [id number] - (3) Perforated viscus Code(s): R19.8 - OTH SYMPTOMS AND SIGNS INVOLVING THE DGSTV SYS AND ABDOMEN (4) Hypertension Code(s): I10 - ESSENTIAL (PRIMARY) HYPERTENSION Qualifiers: Qualified Code(s): I10 - Essential (primary) hypertension lactic acidosis fevers generalized swelling gangrene of the tip of the fingers noted pseudomonas pneumonia plan continue current mgmt nutrition rest as per primary team wound care
--- NOTE | 2016-10-28 17:19 | PN ---
Progress Note, Physician Chief Complaint: Improving MS , cleared by speech and swallow for feeding trial. History of Present Illness: 65-year-old F H/O hypertension, hypercholesterolemia, T2DM, ETOH abuse, admitted with perforated duodenal ulcer with sepsis, prolonged complicated course with respiratory failure s/p incubation, tracheostomy now on IMV mode , cleared by speech and swallow. - Current Medication List Current Medications: Active Medications Acetaminophen (Tylenol Oral Solution -) 650 mg PO Q4H PRN PRN Reason: FEVER OR PAIN Last Admin: 10/26/16 22:31 Dose: 650 mg Clotrimazole (Lotrisone Cream (Small Tube)) 1 applic TP BID [facility] Last Admin: 10/28/16 09:12 Dose: 1 applic Collagenase (Santyl -) 1 applic TP DAILY [facility] Last Admin: 10/28/16 09:26 Dose: 1 applic Dextrose (D50w (Vial) -) 50 gm IVPUSH Q15M PRN PRN Reason: BLOOD SUGAR < 60 Enoxaparin Sodium (Lovenox -) 40 mg SQ BID [facility] Last Admin: 10/28/16 09:13 Dose: 40 mg Furosemide (Lasix -) 20 mg GT DAILY [facility] Last Admin: 10/28/16 09:11 Dose: 20 mg IV Flush (Picc Line Flush) 8 ml IVPUSH PRN PRN PRN Reason: Protocol Last Admin: 10/24/16 09:10 Dose: 8 ml Insulin Aspart (Novolog Vial Sliding Scale -) 1 vial SQ ACHS [facility] PRN Reason: Protocol Last Admin: 10/28/16 13:24 Dose: Not Given Insulin Detemir (Levemir Vial) 40 units SQ HS [facility] Last Admin: 10/27/16 22:20 Dose: 40 units Magnesium Oxide (Mag-Ox -) 400 mg GT BID [facility] Last Admin: 10/28/16 09:11 Dose: 400 mg Miscellaneous (Duragesic Patch Waste) 1 each TD PRN PRN PRN Reason: PAIN Last Admin: 09/26/16 15:41 Dose: 1 each Ofloxacin (Ocuflox 0.3% Eye Drops -) 1 drop OD Q4HWA [facility] Last Admin: 10/28/16 13:22 Dose: 1 drop Potassium Chloride (Potassium Chloride Oral Liquid) 40 meq GT BID [facility] Last Admin: 10/28/16 09:11 Dose: 40 meq Prednisolone Acetate (Pred Forte 1% -) 1 drop OD BID [facility] Last Admin: 10/28/16 09:26 Dose: 1 drp Ranitidine HCl (Zantac Oral Solution -) 150 mg PO BID [facility] Last Admin: 10/28/16 09:11 Dose: 150 mg - Objective Vital Signs: Vital Signs Temperature 97.6 F 10/28/16 14:25 Pulse Rate 93 H 10/28/16 14:25 Respiratory Rate 93 H 10/28/16 14:25 Blood Pressure 127/58 10/28/16 14:25 O2 Sat by Pulse Oximetry (%) 100 10/28/16 10:35 Patient remained slow, responsive, on Vent HEENT: Trach at the place, need intermittent Vent support, mm most, anemia NECK; No JVD No Bruit CHEST: Good AE minimal crests ABD; S/P PEG tube, minimal discharge from wound, colostomy at place BS + EXT; extensive edema, skin peeling and gangrene of distal extremities 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 DERM; gradually healing extensive skin peeling and gangrene of fingers and toes Labs: CBC, BMP 10/27/16 08:45 10/25/16 08:00 INR, PTT INR 1.14 (0.82-1.09) 09/07/16 22:45 Fibrinogen > 700.0 mg/dL (238-498) H 07/31/16 05:40 Problem List - Problems (1) Perforated abdominal viscus Assessment/Plan: Patient was presented with Rt UQ pain and with free air, Duodenal ulcer perforation s/p surgery. now fistula formation draining exudates.fistula still has discharge e, patient has colostomy bag at place. (2) Acute metabolic encephalopathy Assessment/Plan: Secondary to hypoperfusion due to septic shock, , most likely hypoxic encephalopathy. Code(s): G93.41 - METABOLIC ENCEPHALOPATHY (3) Ischemia of extremity Assessment/Plan: Ischemia off all extremities due to prolonged vasopressor use, patient needed pressure to maintain BP, now off pressors wound care healing slowly. Code(s): I99.8 - OTHER DISORDER OF CIRCULATORY SYSTEM (4) Sepsis Assessment/Plan: Due to perforated gastric now off pressors, now off abx day 3nd.. Code(s): A41.9 - SEPSIS, UNSPECIFIED ORGANISM (5) Severe malnutrition Assessment/Plan: S/P PG tolerating feeding remove NG tube, Nutrition consult.. Code(s): E43 - UNSPECIFIED SEVERE PROTEIN-CALORIE MALNUTRITION (6) Diabetes mellitus Code(s): E11.9 - TYPE 2 DIABETES MELLITUS WITHOUT COMPLICATIONS Qualifiers: Diabetes mellitus type: type 2
[2016-10-28] MEDS: ACETAMINOPHEN 650 MG/20.3 ML ORAL SOLUTION (CUPS) PO PRN (17:59)
[2016-10-28] MEDS: INSULIN DETEMIR 100 UNITS/ML MDV SQ SCH (22:27)
[2016-10-29 07:39] LABS: BASOPHIL 1.1 % (0-2.0); EOSINOPHIL 4.4 % (0-4.5); MCHC 32.3 g/dl (32.0-36.0); MEAN CELL VOLUME 89.8 fl (80-96); MEAN PLT VOLUME 7.3 fl (7.5-11.1); NEUTROPHILS 56.2 % (42.8-82.8); PLATELET COUNT 364 K/MM3 (134-434); RDW 15.7 % (11.6-15.6); WHITE BLOOD COUNT 8.7 K/mm3 (4.0-10.0)
[2016-10-29 08:10] LABS: ALBUMIN 2.6 g/dl (3.4-5.0); ANION GAP 9 (8-16); CALCIUM 10.1 mg/dL (8.5-10.1); CO2 30 mmol/L (21-32); CREATININE 0.3 mg/dL (0.55-1.02); GLUCOSE,RANDOM 137 mg/dL (74-106); SGOT/AST 13 U/L (15-37); SGPT/ALT 17 U/L (12-78); TOT PROT 6.7 g/dl (6.4-8.2)
[2016-10-29 08:12] LABS: ALK PHOS 95 U/L (45-117); BILIRUBIN,TOTAL 0.2 mg/dL (0.2-1.0)
[2016-10-29] MEDS: OFLOXACIN 0.3% OPHTHALMIC SOLUTION 5 ML BOTTLE OD SCH ×5 (08:27→22:31)
[2016-10-29] MEDS: INSULIN SLIDING SCALE (NOVOLOG) 1 VIAL SQ SCH ×4 (08:27→22:11)
--- NOTE | 2016-10-29 09:23 | PN ---
Progress Note, Physician Chief Complaint: Improving MS , cleared by speech and swallow for feeding trial. History of Present Illness: 65-year-old F H/O hypertension, hypercholesterolemia, T2DM, ETOH abuse, admitted with perforated duodenal ulcer with sepsis, prolonged complicated course with respiratory failure s/p incubation, tracheostomy now on IMV mode , cleared by speech and swallow. - Current Medication List Current Medications: Active Medications Acetaminophen (Tylenol Oral Solution -) 650 mg PO Q4H PRN PRN Reason: FEVER OR PAIN Last Admin: 10/28/16 17:59 Dose: 650 mg Clotrimazole (Lotrisone Cream (Small Tube)) 1 applic TP BID [facility] Last Admin: 10/28/16 22:28 Dose: 1 applic Collagenase (Santyl -) 1 applic TP DAILY [facility] Last Admin: 10/28/16 09:26 Dose: 1 applic Dextrose (D50w (Vial) -) 50 gm IVPUSH Q15M PRN PRN Reason: BLOOD SUGAR < 60 Enoxaparin Sodium (Lovenox -) 40 mg SQ BID [facility] Last Admin: 10/28/16 22:28 Dose: 40 mg Furosemide (Lasix -) 20 mg GT DAILY [facility] Last Admin: 10/28/16 09:11 Dose: 20 mg IV Flush (Picc Line Flush) 8 ml IVPUSH PRN PRN PRN Reason: Protocol Last Admin: 10/24/16 09:10 Dose: 8 ml Insulin Aspart (Novolog Vial Sliding Scale -) 1 vial SQ ACHS [facility] PRN Reason: Protocol Last Admin: 10/29/16 08:27 Dose: Not Given Insulin Detemir (Levemir Vial) 40 units SQ HS [facility] Last Admin: 10/28/16 22:27 Dose: 40 units Magnesium Oxide (Mag-Ox -) 400 mg GT BID [facility] Last Admin: 10/28/16 22:28 Dose: 400 mg Miscellaneous (Duragesic Patch Waste) 1 each TD PRN PRN PRN Reason: PAIN Last Admin: 09/26/16 15:41 Dose: 1 each Ofloxacin (Ocuflox 0.3% Eye Drops -) 1 drop OD Q4HWA [facility] Last Admin: 10/29/16 08:27 Dose: 1 drop Potassium Chloride (Potassium Chloride Oral Liquid) 40 meq GT BID [facility] Last Admin: 10/28/16 22:28 Dose: 40 meq Prednisolone Acetate (Pred Forte 1% -) 1 drop OD BID [facility] Last Admin: 10/28/16 22:28 Dose: 1 drop Ranitidine HCl (Zantac Oral Solution -) 150 mg PO BID [facility] Last Admin: 10/28/16 22:28 Dose: 150 mg - Objective Vital Signs: Vital Signs Temperature 99.2 F 10/29/16 06:00 Pulse Rate 90 10/29/16 06:00 Respiratory Rate 14 10/29/16 06:00 Blood Pressure 106/71 10/29/16 06:00 O2 Sat by Pulse Oximetry (%) 100 10/28/16 10:35 Labs: CBC, BMP 10/29/16 06:38 INR, PTT INR 1.14 (0.82-1.09) 09/07/16 22:45 Fibrinogen > 700.0 mg/dL (238-498) H 07/31/16 05:40 Problem List - Problems (1) Perforated abdominal viscus (2) Acute metabolic encephalopathy Code(s): G93.41 - METABOLIC ENCEPHALOPATHY (3) Ischemia of extremity Code(s): I99.8 - OTHER DISORDER OF CIRCULATORY SYSTEM (4) Sepsis Code(s): A41.9 - SEPSIS, UNSPECIFIED ORGANISM (5) Severe malnutrition Code(s): E43 - UNSPECIFIED SEVERE PROTEIN-CALORIE MALNUTRITION (6) Diabetes mellitus Code(s): E11.9 - TYPE 2 DIABETES MELLITUS WITHOUT COMPLICATIONS Qualifiers: Diabetes mellitus type: type 2
[2016-10-29] MEDS ORDERED: PT OWN MED DRAWER 7, Y5N ONE ×3 (10:01→23:19)
[2016-10-29] MEDS: POTASSIUM CHLORIDE ORAL LIQUID 20 MEQ/15 ML GT SCH ×2 (10:08→22:26)
[2016-10-29] MEDS: RANITIDINE HCL 150 MG/10 ML UNIT-DOSE CUP PO SCH ×2 (10:08→22:26)
[2016-10-29] MEDS: FUROSEMIDE 20 MG TABLET (FP) GT SCH (10:08)
[2016-10-29] MEDS: MAGNESIUM OXIDE 400 MG TABLET (FP) GT SCH ×2 (10:08→22:11)
[2016-10-29] MEDS: ENOXAPARIN NA (PORCINE) 40 MG/0.4 ML DISP.SYRIN SQ SCH ×2 (10:09→22:10)
[2016-10-29] MEDS: CLOTRIMAZOLE/BETAMET DIPROP 15 GM TUBE TP SCH ×2 (10:43→22:10)
[2016-10-29] MEDS: COLLAGENASE CLOSTRIDIUM HIST. 30 GRAMS TUBE TP SCH (10:43)
[2016-10-29] MEDS: prednisoLONE ACETATE 1% OPHTH SUSP 5 ML BOTTLE OD SCH ×2 (10:44→22:30)
[2016-10-29] MEDS ORDERED: INSULIN (NOVOLOG) ASPART 100 UNITS/ML 10ML VIAL ONE (12:09)
--- NOTE | 2016-10-29 12:42 | PN ---
Progress Note (short form) - Note Progress Note: PULMONARY CHART REVIEWED REMAINS INTERMITTENTLY FEBRILE NO CHANGE IN OVERALL EXAM MEDS/LABS/RADIOGRAPHS/MICRO/NOTES REVIEWED A/P Perforated Duodenal Ulcer Peritonitis s/p ex-lap/omental patch repair 07/16 Enterocutaneous Fistula Acute Respiratory Failure/trach/mvv Septic Shock Lactic Acidosis Leukopenia/Thrombocytopenia likely from sepsis DM DVT Gangrene - taper Fio2 to keep Spo2 >90% - continue anticoagulation - nutrition - will adjust vent settings as needed - DVT/GI prophylaxis Rhonda STARR MD
--- NOTE | 2016-10-29 13:09 | PN ---
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 Pt is an excellent candidate for continued use of PMV and PO initiation with goal to wean from ventilator and tube feeding. I believe prognosis is good for both. Selected Entries 10/27/16 10/27/16 10/27/16 02:00 02:34 06:00 Supper NPO Temperature 97.8 F 98.3 F 10/27/16 10/27/16 10/27/16 09:01 14:00 18:45 Supper Temperature 99.3 F 98.3 F 99.0 F 10/27/16 10/28/16 20:05 06:00 Supper NPO Temperature 98.0 F Laboratory Tests 10/27/16 08:45 WBC 7.5 PO diet ordered. However, pt refusing most trials. Continue GT feedings and trials, as desired and tolerated. REC follow up by speech pathology for PMV/swallowing f/u/cognitive rehabilitation.
--- NOTE | 2016-10-29 16:20 | PN ---
Progress Note, Physician History of Present Illness: doing well no new issues - Current Medication List Current Medications: Active Medications Acetaminophen (Tylenol Oral Solution -) 650 mg PO Q4H PRN PRN Reason: FEVER OR PAIN Last Admin: 10/28/16 17:59 Dose: 650 mg Clotrimazole (Lotrisone Cream (Small Tube)) 1 applic TP BID [facility] Last Admin: 10/29/16 10:43 Dose: 1 applic Collagenase (Santyl -) 1 applic TP DAILY [facility] Last Admin: 10/29/16 10:43 Dose: 1 applic Dextrose (D50w (Vial) -) 50 gm IVPUSH Q15M PRN PRN Reason: BLOOD SUGAR < 60 Enoxaparin Sodium (Lovenox -) 40 mg SQ BID [facility] Last Admin: 10/29/16 10:09 Dose: 40 mg Furosemide (Lasix -) 20 mg GT DAILY [facility] Last Admin: 10/29/16 10:08 Dose: 20 mg IV Flush (Picc Line Flush) 8 ml IVPUSH PRN PRN PRN Reason: Protocol Last Admin: 10/24/16 09:10 Dose: 8 ml Insulin Aspart (Novolog Vial Sliding Scale -) 1 vial SQ ACHS [facility] PRN Reason: Protocol Last Admin: 10/29/16 12:09 Dose: 4 units Insulin Detemir (Levemir Vial) 40 units SQ HS [facility] Last Admin: 10/28/16 22:27 Dose: 40 units Magnesium Oxide (Mag-Ox -) 400 mg GT BID [facility] Last Admin: 10/29/16 10:08 Dose: 400 mg Miscellaneous (Duragesic Patch Waste) 1 each TD PRN PRN PRN Reason: PAIN Last Admin: 09/26/16 15:41 Dose: 1 each Ofloxacin (Ocuflox 0.3% Eye Drops -) 1 drop OD Q4HWA [facility] Last Admin: 10/29/16 15:11 Dose: 1 drop Potassium Chloride (Potassium Chloride Oral Liquid) 40 meq GT BID [facility] Last Admin: 10/29/16 10:08 Dose: 40 meq Prednisolone Acetate (Pred Forte 1% -) 1 drop OD BID [facility] Last Admin: 10/29/16 10:44 Dose: 1 drop Ranitidine HCl (Zantac Oral Solution -) 150 mg PO BID [facility] Last Admin: 10/29/16 10:08 Dose: 150 mg - Objective Vital Signs: Vital Signs Temperature 98.9 F 10/29/16 14:08 Pulse Rate 86 10/29/16 14:08 Respiratory Rate 18 10/29/16 14:11 Blood Pressure 92/56 10/29/16 14:08 O2 Sat by Pulse Oximetry (%) 99 10/29/16 09:00 Constitutional: Yes: No Distress, Calm Neck: Yes: Supple Cardiovascular: Yes: Regular Rate and Rhythm Respiratory: Yes: Mechanically Ventilated, Other (pacci valve) Gastrointestinal: Yes: Normal Bowel Sounds, Soft, Other (peg in place) Musculoskeletal: Yes: Other Extremities: Yes: Other Neurological: Yes: Alert, Oriented Psychiatric: Yes: Alert, Oriented Labs: CBC, BMP 10/29/16 06:38 10/29/16 06:38 INR, PTT INR 1.14 (0.82-1.09) 09/07/16 22:45 Fibrinogen > 700.0 mg/dL (238-498) H 07/31/16 05:40 Assessment/Plan Problem List - Problems (1) Abdominal pain Code(s): R10.9 - UNSPECIFIED ABDOMINAL PAIN Qualifiers: Qualified Code(s): R10.33 - Periumbilical pain (2) Perforated abdominal viscus Code(s): [id number] - (3) Perforated viscus Code(s): R19.8 - OTH SYMPTOMS AND SIGNS INVOLVING THE DGSTV SYS AND ABDOMEN (4) Hypertension Code(s): I10 - ESSENTIAL (PRIMARY) HYPERTENSION Qualifiers: Qualified Code(s): I10 - Essential (primary) hypertension lactic acidosis fevers generalized swelling gangrene of the tip of the fingers noted pseudomonas pneumonia plan continue current mgmt nutrition rest as per primary team wound care patient was able to tolerate a little diet
[2016-10-29] MEDS: INSULIN DETEMIR 100 UNITS/ML MDV SQ SCH (22:07)
[2016-10-30] MEDS ORDERED: INSULIN (NOVOLOG) ASPART 100 UNITS/ML 10ML VIAL ONE ×2 (05:52→11:24)
[2016-10-30] MEDS: OFLOXACIN 0.3% OPHTHALMIC SOLUTION 5 ML BOTTLE OD SCH ×4 (06:11→17:38)
[2016-10-30] MEDS: INSULIN SLIDING SCALE (NOVOLOG) 1 VIAL SQ SCH ×4 (06:12→22:41)
[2016-10-30] MEDS: ACETAMINOPHEN 650 MG/20.3 ML ORAL SOLUTION (CUPS) PO PRN ×2 (06:12→10:26)
--- NOTE | 2016-10-30 09:09 | PN ---
Progress Note, Physician Chief Complaint: Improving MS , cleared by speech and swallow for feeding trial. History of Present Illness: 65-year-old F H/O hypertension, hypercholesterolemia, T2DM, ETOH abuse, admitted with perforated duodenal ulcer with sepsis, prolonged complicated course with respiratory failure s/p incubation, tracheostomy now on IMV mode , cleared by speech and swallow. - Current Medication List Current Medications: Active Medications Acetaminophen (Tylenol Oral Solution -) 650 mg PO Q4H PRN PRN Reason: FEVER OR PAIN Last Admin: 10/30/16 06:12 Dose: 650 mg Clotrimazole (Lotrisone Cream (Small Tube)) 1 applic TP BID [facility] Last Admin: 10/29/16 22:10 Dose: 1 applic Collagenase (Santyl -) 1 applic TP DAILY [facility] Last Admin: 10/29/16 10:43 Dose: 1 applic Dextrose (D50w (Vial) -) 50 gm IVPUSH Q15M PRN PRN Reason: BLOOD SUGAR < 60 Enoxaparin Sodium (Lovenox -) 40 mg SQ BID [facility] Last Admin: 10/29/16 22:10 Dose: 40 mg Furosemide (Lasix -) 20 mg GT DAILY [facility] Last Admin: 10/29/16 10:08 Dose: 20 mg IV Flush (Picc Line Flush) 8 ml IVPUSH PRN PRN PRN Reason: Protocol Last Admin: 10/24/16 09:10 Dose: 8 ml Insulin Aspart (Novolog Vial Sliding Scale -) 1 vial SQ ACHS [facility] PRN Reason: Protocol Last Admin: 10/30/16 06:12 Dose: 8 units Insulin Detemir (Levemir Vial) 40 units SQ HS [facility] Last Admin: 10/29/16 22:07 Dose: 40 units Magnesium Oxide (Mag-Ox -) 400 mg GT BID [facility] Last Admin: 10/29/16 22:11 Dose: 400 mg Miscellaneous (Duragesic Patch Waste) 1 each TD PRN PRN PRN Reason: PAIN Last Admin: 09/26/16 15:41 Dose: 1 each Ofloxacin (Ocuflox 0.3% Eye Drops -) 1 drop OD Q4HWA [facility] Last Admin: 10/30/16 06:11 Dose: 1 drop Potassium Chloride (Potassium Chloride Oral Liquid) 40 meq GT BID [facility] Last Admin: 10/29/16 22:26 Dose: 40 meq Prednisolone Acetate (Pred Forte 1% -) 1 drop OD BID [facility] Last Admin: 10/29/16 22:30 Dose: 1 drop Ranitidine HCl (Zantac Oral Solution -) 150 mg PO BID [facility] Last Admin: 10/29/16 22:26 Dose: 150 mg - Objective Vital Signs: Vital Signs Temperature 100.0 F H 10/30/16 06:00 Pulse Rate 83 10/30/16 06:00 Respiratory Rate 16 10/30/16 07:00 Blood Pressure 127/57 10/30/16 06:00 O2 Sat by Pulse Oximetry (%) 99 10/29/16 21:00 Labs: CBC, BMP 10/29/16 06:38 10/29/16 06:38 INR, PTT INR 1.14 (0.82-1.09) 09/07/16 22:45 Fibrinogen > 700.0 mg/dL (238-498) H 07/31/16 05:40 Problem List - Problems (1) Perforated abdominal viscus (2) Acute metabolic encephalopathy Code(s): G93.41 - METABOLIC ENCEPHALOPATHY (3) Ischemia of extremity Code(s): I99.8 - OTHER DISORDER OF CIRCULATORY SYSTEM (4) Sepsis Code(s): A41.9 - SEPSIS, UNSPECIFIED ORGANISM (5) Severe malnutrition Code(s): E43 - UNSPECIFIED SEVERE PROTEIN-CALORIE MALNUTRITION (6) Diabetes mellitus Code(s): E11.9 - TYPE 2 DIABETES MELLITUS WITHOUT COMPLICATIONS Qualifiers: Diabetes mellitus type: type 2
[2016-10-30] MEDS: RANITIDINE HCL 150 MG/10 ML UNIT-DOSE CUP PO SCH ×2 (10:11→22:23)
[2016-10-30] MEDS: POTASSIUM CHLORIDE ORAL LIQUID 20 MEQ/15 ML GT SCH ×2 (10:11→22:23)
[2016-10-30] MEDS: ENOXAPARIN NA (PORCINE) 40 MG/0.4 ML DISP.SYRIN SQ SCH ×2 (10:11→22:27)
[2016-10-30] MEDS: FUROSEMIDE 20 MG TABLET (FP) GT SCH (10:11)
[2016-10-30] MEDS: MAGNESIUM OXIDE 400 MG TABLET (FP) GT SCH ×2 (10:11→22:24)
[2016-10-30] MEDS ORDERED: PT OWN MED DRAWER 7, Y5N ONE (10:15)
[2016-10-30] MEDS: CLOTRIMAZOLE/BETAMET DIPROP 15 GM TUBE TP SCH ×2 (10:17→22:27)
[2016-10-30] MEDS: COLLAGENASE CLOSTRIDIUM HIST. 30 GRAMS TUBE TP SCH (10:19)
[2016-10-30] MEDS: prednisoLONE ACETATE 1% OPHTH SUSP 5 ML BOTTLE OD SCH (10:19)
--- NOTE | 2016-10-30 12:17 | PN ---
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 Intermittent fevers noted. RD f/u regarding possibly nocturnal TF, allowing pt to eat more by mouth meal time. Supplements by mouth, b/n meals. Pt with DM. RD recommendation appreciated.
--- NOTE | 2016-10-30 12:31 | PN ---
Progress Note, Physician History of Present Illness: PULMONARY ALERT ON VENT SUPPORT,AC MODE -RESP DISTRESS - Current Medication List Current Medications: Active Medications Acetaminophen (Tylenol Oral Solution -) 650 mg PO Q4H PRN PRN Reason: FEVER OR PAIN Last Admin: 10/30/16 10:26 Dose: 650 mg Clotrimazole (Lotrisone Cream (Small Tube)) 1 applic TP BID [facility] Last Admin: 10/30/16 10:17 Dose: 1 applic Collagenase (Santyl -) 1 applic TP DAILY [facility] Last Admin: 10/30/16 10:19 Dose: 1 applic Dextrose (D50w (Vial) -) 50 gm IVPUSH Q15M PRN PRN Reason: BLOOD SUGAR < 60 Enoxaparin Sodium (Lovenox -) 40 mg SQ BID [facility] Last Admin: 10/30/16 10:11 Dose: 40 mg Furosemide (Lasix -) 20 mg GT DAILY [facility] Last Admin: 10/30/16 10:11 Dose: 20 mg IV Flush (Picc Line Flush) 8 ml IVPUSH PRN PRN PRN Reason: Protocol Last Admin: 10/24/16 09:10 Dose: 8 ml Insulin Aspart (Novolog Vial Sliding Scale -) 1 vial SQ ACHS [facility] PRN Reason: Protocol Last Admin: 10/30/16 11:49 Dose: Not Given Insulin Detemir (Levemir Vial) 40 units SQ HS [facility] Last Admin: 10/29/16 22:07 Dose: 40 units Magnesium Oxide (Mag-Ox -) 400 mg GT BID [facility] Last Admin: 10/30/16 10:11 Dose: 400 mg Miscellaneous (Duragesic Patch Waste) 1 each TD PRN PRN PRN Reason: PAIN Last Admin: 09/26/16 15:41 Dose: 1 each Ofloxacin (Ocuflox 0.3% Eye Drops -) 1 drop OD Q4HWA [facility] Last Admin: 10/30/16 10:19 Dose: 1 drop Potassium Chloride (Potassium Chloride Oral Liquid) 40 meq GT BID [facility] Last Admin: 10/30/16 10:11 Dose: 40 meq Prednisolone Acetate (Pred Forte 1% -) 1 drop OD BID [facility] Last Admin: 10/30/16 10:19 Dose: 1 drop Ranitidine HCl (Zantac Oral Solution -) 150 mg PO BID [facility] Last Admin: 10/30/16 10:11 Dose: 150 mg - Objective Vital Signs: Vital Signs Temperature 100.0 F H 10/30/16 06:00 Pulse Rate 83 10/30/16 10:00 Respiratory Rate 19 10/30/16 10:00 Blood Pressure 127/57 10/30/16 06:00 O2 Sat by Pulse Oximetry (%) 99 10/30/16 10:00 Constitutional: Yes: Calm, Thin Eyes: Yes: WNL HENT: Yes: WNL Neck: Yes: Supple (TRACH) Cardiovascular: Yes: Regular Rate and Rhythm, S1, S2 Respiratory: Yes: Diminished Gastrointestinal: Yes: Normal Bowel Sounds, Soft Extremities: Yes: Other ([employer]) Edema: No Problem List - Problems (1) ZAHIRA (acute kidney injury) Code(s): N17.9 - ACUTE KIDNEY FAILURE, UNSPECIFIED (2) Acute metabolic encephalopathy Code(s): G93.41 - METABOLIC ENCEPHALOPATHY (3) Ischemia of extremity Code(s): I99.8 - OTHER DISORDER OF CIRCULATORY SYSTEM (4) Metabolic acidemia Code(s): E87.2 - ACIDOSIS (5) Perforated abdominal viscus Code(s): [id number] - (6) Sepsis Code(s): A41.9 - SEPSIS, UNSPECIFIED ORGANISM (7) Acute respiratory failure Code(s): J96.00 - ACUTE RESPIRATORY FAILURE, UNSP W HYPOXIA OR HYPERCAPNIA Assessment/Plan ASSESSMENT AND PLAN: Perforated Duodenal Ulcer Peritonitis s/p ex-lap/omental patch repair 07/16 Enterocutaneous Fistula Acute Respiratory Failure s/p Tracheostomy s/p Septic Shock DM DVT Gangrene s/p PEA Cardiac Arrest - Fio2 to keep Spo2 >90% - anticoagulation - enteral feeds as tolerated - DVT/GI prophylaxis - wean as tolerated - placement DR OSEI
--- NOTE | 2016-10-30 15:35 | PN ---
Progress Note, Physician History of Present Illness: stable - Current Medication List Current Medications: Active Medications Acetaminophen (Tylenol Oral Solution -) 650 mg PO Q4H PRN PRN Reason: FEVER OR PAIN Last Admin: 10/30/16 10:26 Dose: 650 mg Clotrimazole (Lotrisone Cream (Small Tube)) 1 applic TP BID [facility] Last Admin: 10/30/16 10:17 Dose: 1 applic Collagenase (Santyl -) 1 applic TP DAILY [facility] Last Admin: 10/30/16 10:19 Dose: 1 applic Dextrose (D50w (Vial) -) 50 gm IVPUSH Q15M PRN PRN Reason: BLOOD SUGAR < 60 Enoxaparin Sodium (Lovenox -) 40 mg SQ BID [facility] Last Admin: 10/30/16 10:11 Dose: 40 mg Furosemide (Lasix -) 20 mg GT DAILY [facility] Last Admin: 10/30/16 10:11 Dose: 20 mg IV Flush (Picc Line Flush) 8 ml IVPUSH PRN PRN PRN Reason: Protocol Last Admin: 10/24/16 09:10 Dose: 8 ml Insulin Aspart (Novolog Vial Sliding Scale -) 1 vial SQ ACHS [facility] PRN Reason: Protocol Last Admin: 10/30/16 11:49 Dose: Not Given Insulin Detemir (Levemir Vial) 40 units SQ HS [facility] Last Admin: 10/29/16 22:07 Dose: 40 units Magnesium Oxide (Mag-Ox -) 400 mg GT BID [facility] Last Admin: 10/30/16 10:11 Dose: 400 mg Miscellaneous (Duragesic Patch Waste) 1 each TD PRN PRN PRN Reason: PAIN Last Admin: 09/26/16 15:41 Dose: 1 each Ofloxacin (Ocuflox 0.3% Eye Drops -) 1 drop OD Q4HWA [facility] Last Admin: 10/30/16 13:06 Dose: 1 drop Potassium Chloride (Potassium Chloride Oral Liquid) 40 meq GT BID [facility] Last Admin: 10/30/16 10:11 Dose: 40 meq Prednisolone Acetate (Pred Forte 1% -) 1 drop OD BID [facility] Last Admin: 10/30/16 10:19 Dose: 1 drop Ranitidine HCl (Zantac Oral Solution -) 150 mg PO BID [facility] Last Admin: 10/30/16 10:11 Dose: 150 mg - Objective Vital Signs: Vital Signs Temperature 100.0 F H 10/30/16 06:00 Pulse Rate 83 10/30/16 10:00 Respiratory Rate 19 10/30/16 14:01 Blood Pressure 127/57 10/30/16 06:00 O2 Sat by Pulse Oximetry (%) 99 10/30/16 10:00 Constitutional: Yes: No Distress, Calm Cardiovascular: Yes: Regular Rate and Rhythm Respiratory: Yes: Mechanically Ventilated, Other Gastrointestinal: Yes: Normal Bowel Sounds, Soft, Other (peg in place) Musculoskeletal: Yes: Other Extremities: Yes: Other Neurological: Yes: Alert, Oriented Psychiatric: Yes: Alert Labs: CBC, BMP 10/29/16 06:38 10/29/16 06:38 INR, PTT INR 1.14 (0.82-1.09) 09/07/16 22:45 Fibrinogen > 700.0 mg/dL (238-498) H 07/31/16 05:40 Assessment/Plan Problem List - Problems (1) Abdominal pain Code(s): R10.9 - UNSPECIFIED ABDOMINAL PAIN Qualifiers: Qualified Code(s): R10.33 - Periumbilical pain (2) Perforated abdominal viscus Code(s): [id number] - (3) Perforated viscus Code(s): R19.8 - OTH SYMPTOMS AND SIGNS INVOLVING THE DGSTV SYS AND ABDOMEN (4) Hypertension Code(s): I10 - ESSENTIAL (PRIMARY) HYPERTENSION Qualifiers: Qualified Code(s): I10 - Essential (primary) hypertension lactic acidosis fevers generalized swelling gangrene of the tip of the fingers noted pseudomonas pneumonia plan continue current mgmt nutrition rest as per primary team wound care advance as tolerated orally
[2016-10-30] MEDS: INSULIN DETEMIR 100 UNITS/ML MDV SQ SCH (22:41)
[2016-10-31] MEDS: ACETAMINOPHEN 650 MG/20.3 ML ORAL SOLUTION (CUPS) PO PRN (05:40)
[2016-10-31] MEDS: INSULIN SLIDING SCALE (NOVOLOG) 1 VIAL SQ SCH ×4 (06:02→22:58)
[2016-10-31] MEDS: RANITIDINE HCL 150 MG/10 ML UNIT-DOSE CUP PO SCH ×2 (11:00→22:53)
[2016-10-31] MEDS: ENOXAPARIN NA (PORCINE) 40 MG/0.4 ML DISP.SYRIN SQ SCH ×2 (11:00→22:53)
[2016-10-31] MEDS: POTASSIUM CHLORIDE ORAL LIQUID 20 MEQ/15 ML GT SCH ×2 (11:07→22:53)
[2016-10-31] MEDS: FUROSEMIDE 20 MG TABLET (FP) GT SCH (11:10)
[2016-10-31] MEDS ORDERED: PT OWN MED DRAWER 7, Y5N ONE ×2 (11:45→20:41)
--- NOTE | 2016-10-31 12:08 | PN ---
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 Plan is for nocturnal TF and PO supplement b/n meals. PMV on throughout the day , as toleratd, especially meal time.Voice is euphonic. Tolerating PO trials well. Pt had all of oatmeal and half of yogurt today. Excellent potential for weaning from TF and hopefully ventilator as well. Selected Entries 10/31/16 10/31/16 03:00 06:00 Temperature 97.9 F 98.6 F Laboratory Tests 10/29/16 06:38 WBC 8.7
[2016-10-31] MEDS: COLLAGENASE CLOSTRIDIUM HIST. 30 GRAMS TUBE TP SCH (12:09)
[2016-10-31] MEDS: MAGNESIUM OXIDE 400 MG TABLET (FP) GT SCH (12:09)
[2016-10-31] MEDS: CLOTRIMAZOLE/BETAMET DIPROP 15 GM TUBE TP SCH ×2 (12:09→22:53)
--- NOTE | 2016-10-31 14:32 | PN ---
Progress Note, Physician History of Present Illness: stable no new issues - Current Medication List Current Medications: Active Medications Acetaminophen (Tylenol Oral Solution -) 650 mg PO Q4H PRN PRN Reason: FEVER OR PAIN Last Admin: 10/31/16 05:40 Dose: 650 mg Clotrimazole (Lotrisone Cream (Small Tube)) 1 applic TP BID [facility] Last Admin: 10/31/16 12:09 Dose: 1 applic Collagenase (Santyl -) 1 applic TP DAILY [facility] Last Admin: 10/31/16 12:09 Dose: 1 applic Dextrose (D50w (Vial) -) 50 gm IVPUSH Q15M PRN PRN Reason: BLOOD SUGAR < 60 Enoxaparin Sodium (Lovenox -) 40 mg SQ BID [facility] Last Admin: 10/31/16 11:00 Dose: 40 mg Furosemide (Lasix -) 20 mg GT DAILY [facility] Last Admin: 10/31/16 11:10 Dose: 20 mg IV Flush (Picc Line Flush) 8 ml IVPUSH PRN PRN PRN Reason: Protocol Last Admin: 10/24/16 09:10 Dose: 8 ml Insulin Aspart (Novolog Vial Sliding Scale -) 1 vial SQ ACHS [facility] PRN Reason: Protocol Last Admin: 10/31/16 12:14 Dose: 8 units Insulin Detemir (Levemir Vial) 40 units SQ HS [facility] Last Admin: 10/30/16 22:41 Dose: Not Given Magnesium Oxide (Mag-Ox -) 400 mg GT BID [facility] Last Admin: 10/31/16 12:09 Dose: Not Given Miscellaneous (Duragesic Patch Waste) 1 each TD PRN PRN PRN Reason: PAIN Last Admin: 09/26/16 15:41 Dose: 1 each Potassium Chloride (Potassium Chloride Oral Liquid) 40 meq GT BID [facility] Last Admin: 10/31/16 11:07 Dose: 40 meq Ranitidine HCl (Zantac Oral Solution -) 150 mg PO BID [facility] Last Admin: 10/31/16 11:00 Dose: 150 mg - Objective Vital Signs: Vital Signs Temperature 98.6 F 10/31/16 11:00 Pulse Rate 85 10/31/16 11:00 Respiratory Rate 20 10/31/16 11:00 Blood Pressure 120/65 10/31/16 11:00 O2 Sat by Pulse Oximetry (%) 98 10/31/16 09:40 Constitutional: Yes: No Distress, Calm Cardiovascular: Yes: Regular Rate and Rhythm Respiratory: Yes: Regular, Mechanically Ventilated Gastrointestinal: Yes: Normal Bowel Sounds, Soft, Other (peg in place) Musculoskeletal: Yes: Other Extremities: Yes: Other Neurological: Yes: Alert, Oriented Psychiatric: Yes: Alert Labs: CBC, BMP 10/29/16 06:38 10/29/16 06:38 INR, PTT INR 1.14 (0.82-1.09) 09/07/16 22:45 Fibrinogen > 700.0 mg/dL (238-498) H 07/31/16 05:40 Assessment/Plan Problem List - Problems (1) Abdominal pain Code(s): R10.9 - UNSPECIFIED ABDOMINAL PAIN Qualifiers: Qualified Code(s): R10.33 - Periumbilical pain (2) Perforated abdominal viscus Code(s): [id number] - (3) Perforated viscus Code(s): R19.8 - OTH SYMPTOMS AND SIGNS INVOLVING THE DGSTV SYS AND ABDOMEN (4) Hypertension Code(s): I10 - ESSENTIAL (PRIMARY) HYPERTENSION Qualifiers: Qualified Code(s): I10 - Essential (primary) hypertension lactic acidosis fevers generalized swelling gangrene of the tip of the fingers noted pseudomonas pneumonia plan continue current mgmt nutrition rest as per primary team wound care patient tolerating food advance as tolerated orally
--- NOTE | 2016-10-31 18:33 | PN ---
Progress Note, Physician Chief Complaint: Improving MS , cleared by speech and swallow for feeding trial. History of Present Illness: 65-year-old F H/O hypertension, hypercholesterolemia, T2DM, ETOH abuse, admitted with perforated duodenal ulcer with sepsis, prolonged complicated course with respiratory failure s/p incubation, tracheostomy now on IMV mode , cleared by speech and swallow. - Current Medication List Current Medications: Active Medications Acetaminophen (Tylenol Oral Solution -) 650 mg PO Q4H PRN PRN Reason: FEVER OR PAIN Last Admin: 10/31/16 05:40 Dose: 650 mg Clotrimazole (Lotrisone Cream (Small Tube)) 1 applic TP BID [facility] Last Admin: 10/31/16 12:09 Dose: 1 applic Collagenase (Santyl -) 1 applic TP DAILY [facility] Last Admin: 10/31/16 12:09 Dose: 1 applic Dextrose (D50w (Vial) -) 50 gm IVPUSH Q15M PRN PRN Reason: BLOOD SUGAR < 60 Enoxaparin Sodium (Lovenox -) 40 mg SQ BID [facility] Last Admin: 10/31/16 11:00 Dose: 40 mg Furosemide (Lasix -) 20 mg GT DAILY [facility] Last Admin: 10/31/16 11:10 Dose: 20 mg IV Flush (Picc Line Flush) 8 ml IVPUSH PRN PRN PRN Reason: Protocol Last Admin: 10/24/16 09:10 Dose: 8 ml Insulin Aspart (Novolog Vial Sliding Scale -) 1 vial SQ ACHS [facility] PRN Reason: Protocol Last Admin: 10/31/16 12:14 Dose: 8 units Insulin Detemir (Levemir Vial) 40 units SQ HS [facility] Last Admin: 10/30/16 22:41 Dose: Not Given Magnesium Oxide (Mag-Ox -) 400 mg GT BID [facility] Last Admin: 10/31/16 12:09 Dose: Not Given Miscellaneous (Duragesic Patch Waste) 1 each TD PRN PRN PRN Reason: PAIN Last Admin: 09/26/16 15:41 Dose: 1 each Potassium Chloride (Potassium Chloride Oral Liquid) 40 meq GT BID [facility] Last Admin: 10/31/16 11:07 Dose: 40 meq Ranitidine HCl (Zantac Oral Solution -) 150 mg PO BID [facility] Last Admin: 10/31/16 11:00 Dose: 150 mg - Objective Vital Signs: Vital Signs Temperature 99.5 F 10/31/16 18:00 Pulse Rate 79 10/31/16 18:00 Respiratory Rate 14 10/31/16 18:16 Blood Pressure 108/62 10/31/16 18:00 O2 Sat by Pulse Oximetry (%) 98 10/31/16 09:40 Labs: CBC, BMP 10/29/16 06:38 10/29/16 06:38 INR, PTT INR 1.14 (0.82-1.09) 09/07/16 22:45 Fibrinogen > 700.0 mg/dL (238-498) H 07/31/16 05:40 Problem List - Problems (1) Perforated abdominal viscus (2) Acute metabolic encephalopathy Code(s): G93.41 - METABOLIC ENCEPHALOPATHY (3) Ischemia of extremity Code(s): I99.8 - OTHER DISORDER OF CIRCULATORY SYSTEM (4) Sepsis Code(s): A41.9 - SEPSIS, UNSPECIFIED ORGANISM (5) Severe malnutrition Code(s): E43 - UNSPECIFIED SEVERE PROTEIN-CALORIE MALNUTRITION (6) Diabetes mellitus Code(s): E11.9 - TYPE 2 DIABETES MELLITUS WITHOUT COMPLICATIONS Qualifiers: Diabetes mellitus type: type 2
[2016-10-31] MEDS: INSULIN DETEMIR 100 UNITS/ML MDV SQ SCH (22:58)
[2016-11-01] MEDS: INSULIN SLIDING SCALE (NOVOLOG) 1 VIAL SQ SCH ×4 (06:47→21:40)
[2016-11-01 07:09] LABS: BASOPHIL 0.7 % (0-2.0); EOSINOPHIL 4.1 % (0-4.5); MCH 29.5 pg (25.7-33.7); MCHC 32.8 g/dl (32.0-36.0); MEAN CELL VOLUME 90.1 fl (80-96); MEAN PLT VOLUME 6.9 fl (7.5-11.1); NEUTROPHILS 54.1 % (42.8-82.8); PLATELET COUNT 422 K/MM3 (134-434); RDW 15.1 % (11.6-15.6); WHITE BLOOD COUNT 8.5 K/mm3 (4.0-10.0)
[2016-11-01 07:20] LABS: ALBUMIN 2.5 g/dl (3.4-5.0); ALK PHOS 90 U/L (45-117); ANION GAP 6 (8-16); BILIRUBIN,TOTAL 0.2 mg/dL (0.2-1.0); CALCIUM 9.8 mg/dL (8.5-10.1); CO2 31 mmol/L (21-32); CREATININE 0.3 mg/dL (0.55-1.02); GLUCOSE,RANDOM 119 mg/dL (74-106); SGOT/AST 11 U/L (15-37); SGPT/ALT 16 U/L (12-78); TOT PROT 6.4 g/dl (6.4-8.2)
--- NOTE | 2016-11-01 08:44 | PN ---
Progress Note, Physician Chief Complaint: Improving MS , tolerating feeds remained afebrile. History of Present Illness: 65-year-old F H/O hypertension, hypercholesterolemia, T2DM, ETOH abuse, admitted with perforated duodenal ulcer with sepsis, prolonged complicated course with respiratory failure s/p incubation, tracheostomy now on IMV mode , cleared by speech and swallow, tolerating PO remained afebrile. - Current Medication List Current Medications: Active Medications Acetaminophen (Tylenol Oral Solution -) 650 mg PO Q4H PRN PRN Reason: FEVER OR PAIN Last Admin: 10/31/16 05:40 Dose: 650 mg Clotrimazole (Lotrisone Cream (Small Tube)) 1 applic TP BID [facility] Last Admin: 10/31/16 22:53 Dose: 1 applic Collagenase (Santyl -) 1 applic TP DAILY [facility] Last Admin: 10/31/16 12:09 Dose: 1 applic Dextrose (D50w (Vial) -) 50 gm IVPUSH Q15M PRN PRN Reason: BLOOD SUGAR < 60 Enoxaparin Sodium (Lovenox -) 40 mg SQ BID [facility] Last Admin: 10/31/16 22:53 Dose: 40 mg Furosemide (Lasix -) 20 mg GT DAILY [facility] Last Admin: 10/31/16 11:10 Dose: 20 mg IV Flush (Picc Line Flush) 8 ml IVPUSH PRN PRN PRN Reason: Protocol Last Admin: 10/24/16 09:10 Dose: 8 ml Insulin Aspart (Novolog Vial Sliding Scale -) 1 vial SQ ACHS [facility] PRN Reason: Protocol Last Admin: 11/01/16 06:47 Dose: Not Given Insulin Detemir (Levemir Vial) 40 units SQ HS [facility] Last Admin: 10/31/16 22:58 Dose: 40 units Miscellaneous (Duragesic Patch Waste) 1 each TD PRN PRN PRN Reason: PAIN Last Admin: 09/26/16 15:41 Dose: 1 each Potassium Chloride (Potassium Chloride Oral Liquid) 40 meq GT BID [facility] Last Admin: 10/31/16 22:53 Dose: 40 meq Ranitidine HCl (Zantac Oral Solution -) 150 mg PO BID [facility] Last Admin: 10/31/16 22:53 Dose: 150 mg - Objective Vital Signs: Vital Signs Temperature 97.9 F 11/01/16 04:00 Pulse Rate 88 11/01/16 04:00 Respiratory Rate 20 11/01/16 06:15 Blood Pressure 131/60 11/01/16 04:00 O2 Sat by Pulse Oximetry (%) 97 10/31/16 21:00 Middle aged F gradually improving. 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 DERM; gradually healing extensive skin peeling and gangrene of fingers and toes Labs: CBC, BMP 11/01/16 06:00 11/01/16 06:00 INR, PTT INR 1.14 (0.82-1.09) 09/07/16 22:45 Fibrinogen > 700.0 mg/dL (238-498) H 07/31/16 05:40 Problem List - Problems (1) Perforated abdominal viscus Assessment/Plan: Patient was presented with Rt UQ pain and with free air, Duodenal ulcer perforation s/p surgery. now fistula formation draining exudates.fistula still has discharge e, patient has colostomy bag at place. drainage tube it out will F /U with Surgery team. (2) Acute metabolic encephalopathy Assessment/Plan: Gradually improving Secondary to hypoperfusion due to septic shock. Code(s): G93.41 - METABOLIC ENCEPHALOPATHY (3) Ischemia of extremity Assessment/Plan: Ischemia off all extremities due to prolonged vasopressor use, patient needed pressure to maintain BP, wound care healing slowly. Code(s): I99.8 - OTHER DISORDER OF CIRCULATORY SYSTEM (4) Severe malnutrition Assessment/Plan: S/P PG tolerating feeding remove NG tube, Nutrition consult.. Sr albumin improving. Code(s): E43 - UNSPECIFIED SEVERE PROTEIN-CALORIE MALNUTRITION (5) Diabetes mellitus Assessment/Plan: Better controlled add basal insulin Levimir 40 units and correction dose insulin. Code(s): E11.9 - TYPE 2 DIABETES MELLITUS WITHOUT COMPLICATIONS Qualifiers: Diabetes mellitus type: type 2
[2016-11-01] MEDS: ENOXAPARIN NA (PORCINE) 40 MG/0.4 ML DISP.SYRIN SQ SCH ×2 (10:33→21:39)
[2016-11-01] MEDS: POTASSIUM CHLORIDE ORAL LIQUID 20 MEQ/15 ML GT SCH ×2 (10:33→21:39)
[2016-11-01] MEDS: COLLAGENASE CLOSTRIDIUM HIST. 30 GRAMS TUBE TP SCH (10:33)
[2016-11-01] MEDS: RANITIDINE HCL 150 MG/10 ML UNIT-DOSE CUP PO SCH ×2 (10:33→21:39)
[2016-11-01] MEDS: FUROSEMIDE 20 MG TABLET (FP) GT SCH (10:33)
[2016-11-01] MEDS: CLOTRIMAZOLE/BETAMET DIPROP 15 GM TUBE TP SCH ×2 (10:34→21:40)
--- NOTE | 2016-11-01 12:42 | PN ---
Progress Note, Physician History of Present Illness: stable patient pulled out drain by mistake patient doing well tolerating feeds - Current Medication List Current Medications: Active Medications Acetaminophen (Tylenol Oral Solution -) 650 mg PO Q4H PRN PRN Reason: FEVER OR PAIN Last Admin: 10/31/16 05:40 Dose: 650 mg Clotrimazole (Lotrisone Cream (Small Tube)) 1 applic TP BID [facility] Last Admin: 11/01/16 10:34 Dose: 1 applic Collagenase (Santyl -) 1 applic TP DAILY [facility] Last Admin: 11/01/16 10:33 Dose: 1 applic Dextrose (D50w (Vial) -) 50 gm IVPUSH Q15M PRN PRN Reason: BLOOD SUGAR < 60 Enoxaparin Sodium (Lovenox -) 40 mg SQ BID [facility] Last Admin: 11/01/16 10:33 Dose: 40 mg Furosemide (Lasix -) 20 mg GT DAILY [facility] Last Admin: 11/01/16 10:33 Dose: 20 mg IV Flush (Picc Line Flush) 8 ml IVPUSH PRN PRN PRN Reason: Protocol Last Admin: 10/24/16 09:10 Dose: 8 ml Insulin Aspart (Novolog Vial Sliding Scale -) 1 vial SQ ACHS [facility] PRN Reason: Protocol Last Admin: 11/01/16 11:38 Dose: 4 units Insulin Detemir (Levemir Vial) 40 units SQ HS [facility] Last Admin: 10/31/16 22:58 Dose: 40 units Miscellaneous (Duragesic Patch Waste) 1 each TD PRN PRN PRN Reason: PAIN Last Admin: 09/26/16 15:41 Dose: 1 each Potassium Chloride (Potassium Chloride Oral Liquid) 40 meq GT BID [facility] Last Admin: 11/01/16 10:33 Dose: 40 meq Ranitidine HCl (Zantac Oral Solution -) 150 mg PO BID [facility] Last Admin: 11/01/16 10:33 Dose: 150 mg - Objective Vital Signs: Vital Signs Temperature 98.1 F 11/01/16 10:00 Pulse Rate 80 11/01/16 10:00 Respiratory Rate 21 11/01/16 11:54 Blood Pressure 103/52 11/01/16 10:00 O2 Sat by Pulse Oximetry (%) 100 11/01/16 10:00 Constitutional: Yes: No Distress, Calm Cardiovascular: Yes: Regular Rate and Rhythm Respiratory: Yes: Regular, Rhonchi Gastrointestinal: Yes: Normal Bowel Sounds, Soft, Other (peg in place) Musculoskeletal: Yes: Other Extremities: Yes: Other Neurological: Yes: Alert, Oriented Psychiatric: Yes: Alert, Oriented Labs: CBC, BMP 11/01/16 06:00 11/01/16 06:00 INR, PTT INR 1.14 (0.82-1.09) 09/07/16 22:45 Fibrinogen > 700.0 mg/dL (238-498) H 07/31/16 05:40 Assessment/Plan Problem List - Problems (1) Abdominal pain Code(s): R10.9 - UNSPECIFIED ABDOMINAL PAIN Qualifiers: Qualified Code(s): R10.33 - Periumbilical pain (2) Perforated abdominal viscus Code(s): [id number] - (3) Perforated viscus Code(s): R19.8 - OTH SYMPTOMS AND SIGNS INVOLVING THE DGSTV SYS AND ABDOMEN (4) Hypertension Code(s): I10 - ESSENTIAL (PRIMARY) HYPERTENSION Qualifiers: Qualified Code(s): I10 - Essential (primary) hypertension lactic acidosis fevers generalized swelling gangrene of the tip of the fingers noted pseudomonas pneumonia plan continue current mgmt nutrition rest as per primary team wound care patient tolerating food advance as tolerated orally surgery to decide about the drainage tube
[2016-11-01] MEDS ORDERED: PT OWN MED DRAWER 7, Y5N ONE (17:01)
[2016-11-01] MEDS: INSULIN DETEMIR 100 UNITS/ML MDV SQ SCH (21:40)
[2016-11-02] MEDS: INSULIN SLIDING SCALE (NOVOLOG) 1 VIAL SQ SCH ×4 (06:08→22:10)
[2016-11-02] MEDS ORDERED: PT OWN MED DRAWER 7, Y5N ONE (10:35)
[2016-11-02] MEDS: POTASSIUM CHLORIDE ORAL LIQUID 20 MEQ/15 ML GT SCH ×2 (10:53→21:24)
[2016-11-02] MEDS: FUROSEMIDE 20 MG TABLET (FP) GT SCH (10:53)
[2016-11-02] MEDS: RANITIDINE HCL 150 MG/10 ML UNIT-DOSE CUP PO SCH ×2 (10:53→21:24)
[2016-11-02] MEDS: COLLAGENASE CLOSTRIDIUM HIST. 30 GRAMS TUBE TP SCH (10:54)
[2016-11-02] MEDS: ENOXAPARIN NA (PORCINE) 40 MG/0.4 ML DISP.SYRIN SQ SCH ×2 (10:54→21:24)
[2016-11-02] MEDS: CLOTRIMAZOLE/BETAMET DIPROP 15 GM TUBE TP SCH ×2 (10:54→21:25)
--- NOTE | 2016-11-02 13:01 | PN ---
Progress Note, Physician History of Present Illness: stable no new issues - Current Medication List Current Medications: Active Medications Acetaminophen (Tylenol Oral Solution -) 650 mg PO Q4H PRN PRN Reason: FEVER OR PAIN Last Admin: 10/31/16 05:40 Dose: 650 mg Clotrimazole (Lotrisone Cream (Small Tube)) 1 applic TP BID [facility] Last Admin: 11/02/16 10:54 Dose: 1 applic Collagenase (Santyl -) 1 applic TP DAILY [facility] Last Admin: 11/02/16 10:54 Dose: 1 applic Dextrose (D50w (Vial) -) 50 gm IVPUSH Q15M PRN PRN Reason: BLOOD SUGAR < 60 Enoxaparin Sodium (Lovenox -) 40 mg SQ BID [facility] Last Admin: 11/02/16 10:54 Dose: 40 mg Furosemide (Lasix -) 20 mg GT DAILY [facility] Last Admin: 11/02/16 10:53 Dose: 20 mg IV Flush (Picc Line Flush) 8 ml IVPUSH PRN PRN PRN Reason: Protocol Last Admin: 10/24/16 09:10 Dose: 8 ml Insulin Aspart (Novolog Vial Sliding Scale -) 1 vial SQ ACHS [facility] PRN Reason: Protocol Last Admin: 11/02/16 12:14 Dose: 4 units Insulin Detemir (Levemir Vial) 40 units SQ HS [facility] Last Admin: 11/01/16 21:40 Dose: 40 units Miscellaneous (Duragesic Patch Waste) 1 each TD PRN PRN PRN Reason: PAIN Last Admin: 09/26/16 15:41 Dose: 1 each Potassium Chloride (Potassium Chloride Oral Liquid) 40 meq GT BID [facility] Last Admin: 11/02/16 10:53 Dose: 40 meq Ranitidine HCl (Zantac Oral Solution -) 150 mg PO BID [facility] Last Admin: 11/02/16 10:53 Dose: 150 mg - Objective Vital Signs: Vital Signs Temperature 98.4 F 11/02/16 10:00 Pulse Rate 85 11/02/16 10:00 Respiratory Rate 19 11/02/16 10:02 Blood Pressure 104/57 11/02/16 10:00 O2 Sat by Pulse Oximetry (%) 100 11/02/16 10:00 Constitutional: Yes: No Distress, Calm Cardiovascular: Yes: Regular Rate and Rhythm Respiratory: Yes: Regular, CTA Bilaterally Gastrointestinal: Yes: Normal Bowel Sounds, Soft, Other (peg tube in place) Musculoskeletal: Yes: WNL Extremities: Yes: Other Integumentary: Yes: Other (dry gangrene) Neurological: Yes: Alert, Oriented Psychiatric: Yes: Alert, Oriented Labs: CBC, BMP 11/01/16 06:00 11/01/16 06:00 INR, PTT INR 1.14 (0.82-1.09) 09/07/16 22:45 Fibrinogen > 700.0 mg/dL (238-498) H 07/31/16 05:40 Assessment/Plan Problem List - Problems (1) Abdominal pain Code(s): R10.9 - UNSPECIFIED ABDOMINAL PAIN Qualifiers: Qualified Code(s): R10.33 - Periumbilical pain (2) Perforated abdominal viscus Code(s): [id number] - (3) Perforated viscus Code(s): R19.8 - OTH SYMPTOMS AND SIGNS INVOLVING THE DGSTV SYS AND ABDOMEN (4) Hypertension Code(s): I10 - ESSENTIAL (PRIMARY) HYPERTENSION Qualifiers: Qualified Code(s): I10 - Essential (primary) hypertension lactic acidosis fevers generalized swelling gangrene of the tip of the fingers noted pseudomonas pneumonia plan continue current mgmt nutrition rest as per primary team wound care patient tolerating food advance as tolerated orally
--- NOTE | 2016-11-02 14:27 | PN ---
Progress Note, Physician Chief Complaint: Improving MS , tolerating feeds remained afebrile. History of Present Illness: 65-year-old F H/O hypertension, hypercholesterolemia, T2DM, ETOH abuse, admitted with perforated duodenal ulcer with sepsis, prolonged complicated course with respiratory failure s/p incubation, tracheostomy now on IMV mode , cleared by speech and swallow, tolerating PO remained afebrile. - Current Medication List Current Medications: Active Medications Acetaminophen (Tylenol Oral Solution -) 650 mg PO Q4H PRN PRN Reason: FEVER OR PAIN Last Admin: 10/31/16 05:40 Dose: 650 mg Clotrimazole (Lotrisone Cream (Small Tube)) 1 applic TP BID [facility] Last Admin: 11/02/16 10:54 Dose: 1 applic Collagenase (Santyl -) 1 applic TP DAILY [facility] Last Admin: 11/02/16 10:54 Dose: 1 applic Dextrose (D50w (Vial) -) 50 gm IVPUSH Q15M PRN PRN Reason: BLOOD SUGAR < 60 Enoxaparin Sodium (Lovenox -) 40 mg SQ BID [facility] Last Admin: 11/02/16 10:54 Dose: 40 mg Furosemide (Lasix -) 20 mg GT DAILY [facility] Last Admin: 11/02/16 10:53 Dose: 20 mg IV Flush (Picc Line Flush) 8 ml IVPUSH PRN PRN PRN Reason: Protocol Last Admin: 10/24/16 09:10 Dose: 8 ml Insulin Aspart (Novolog Vial Sliding Scale -) 1 vial SQ ACHS [facility] PRN Reason: Protocol Last Admin: 11/02/16 12:14 Dose: 4 units Insulin Detemir (Levemir Vial) 40 units SQ HS [facility] Last Admin: 11/01/16 21:40 Dose: 40 units Miscellaneous (Duragesic Patch Waste) 1 each TD PRN PRN PRN Reason: PAIN Last Admin: 09/26/16 15:41 Dose: 1 each Potassium Chloride (Potassium Chloride Oral Liquid) 40 meq GT BID [facility] Last Admin: 11/02/16 10:53 Dose: 40 meq Ranitidine HCl (Zantac Oral Solution -) 150 mg PO BID [facility] Last Admin: 11/02/16 10:53 Dose: 150 mg - Objective Vital Signs: Vital Signs Temperature 98.4 F 11/02/16 10:00 Pulse Rate 90 11/02/16 14:22 Respiratory Rate 24 11/02/16 14:22 Blood Pressure 104/57 11/02/16 10:00 O2 Sat by Pulse Oximetry (%) 100 11/02/16 14:22 Middle aged F gradually improving. 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 DERM; gradually healing extensive skin peeling and gangrene of fingers and toes Labs: CBC, BMP 11/01/16 06:00 11/01/16 06:00 INR, PTT INR 1.14 (0.82-1.09) 09/07/16 22:45 Fibrinogen > 700.0 mg/dL (238-498) H 07/31/16 05:40 Problem List - Problems (1) Perforated abdominal viscus Assessment/Plan: Patient was presented with Rt UQ pain and with free air, Duodenal ulcer perforation s/p surgery. now fistula formation draining exudates.fistula still has discharge e, patient has colostomy bag at place. drainage tube it out will F /U with Surgery team. (2) Acute metabolic encephalopathy Assessment/Plan: Gradually improving Secondary to hypoperfusion due to septic shock. Code(s): G93.41 - METABOLIC ENCEPHALOPATHY (3) Ischemia of extremity Assessment/Plan: Ischemia off all extremities due to prolonged vasopressor use, patient needed pressure to maintain BP, wound care healing slowly. Code(s): I99.8 - OTHER DISORDER OF CIRCULATORY SYSTEM (4) Severe malnutrition Assessment/Plan: S/P PG tolerating feeding remove NG tube, Nutrition consult.. Sr albumin improving. Code(s): E43 - UNSPECIFIED SEVERE PROTEIN-CALORIE MALNUTRITION (5) Diabetes mellitus Assessment/Plan: Better controlled add basal insulin Levimir 40 units and correction dose insulin. Code(s): E11.9 - TYPE 2 DIABETES MELLITUS WITHOUT COMPLICATIONS Qualifiers: Diabetes mellitus type: type 2
[2016-11-02] MEDS ORDERED: INSULIN (NOVOLOG) ASPART 100 UNITS/ML 10ML VIAL ONE (20:04)
[2016-11-02] MEDS: INSULIN DETEMIR 100 UNITS/ML MDV SQ SCH (21:25)
[2016-11-03] MEDS: INSULIN SLIDING SCALE (NOVOLOG) 1 VIAL SQ SCH ×2 (06:00→11:24)
[2016-11-03 07:05] LABS: BASOPHIL 0.9 % (0-2.0); EOSINOPHIL 4.3 % (0-4.5); MCH 29.2 pg (25.7-33.7); MEAN CELL VOLUME 88.3 fl (80-96); MEAN PLT VOLUME 7.3 fl (7.5-11.1); NEUTROPHILS 49.8 % (42.8-82.8); PLATELET COUNT 440 K/MM3 (134-434); RDW 14.9 % (11.6-15.6); WHITE BLOOD COUNT 7.9 K/mm3 (4.0-10.0)
[2016-11-03 07:28] LABS: ALBUMIN 2.4 g/dl (3.4-5.0); ANION GAP 7 (8-16); CALCIUM 9.7 mg/dL (8.5-10.1); CO2 30 mmol/L (21-32); GLUCOSE,RANDOM 87 mg/dL (74-106); SGOT/AST 11 U/L (15-37); SGPT/ALT 18 U/L (12-78)
[2016-11-03 07:30] LABS: ALK PHOS 83 U/L (45-117); BILIRUBIN,TOTAL 0.2 mg/dL (0.2-1.0); CREATININE 0.2 mg/dL (0.55-1.02); TOT PROT 6.3 g/dl (6.4-8.2)
--- NOTE | 2016-11-03 09:15 | PN ---
Progress Note, Physician Chief Complaint: Improving MS , tolerating feeds remained afebrile. History of Present Illness: 65-year-old F H/O hypertension, hypercholesterolemia, T2DM, ETOH abuse, admitted with perforated duodenal ulcer with sepsis, prolonged complicated course with respiratory failure s/p incubation, tracheostomy now on IMV mode , cleared by speech and swallow, tolerating PO remained afebrile. - Current Medication List Current Medications: Active Medications Acetaminophen (Tylenol Oral Solution -) 650 mg PO Q4H PRN PRN Reason: FEVER OR PAIN Last Admin: 10/31/16 05:40 Dose: 650 mg Clotrimazole (Lotrisone Cream (Small Tube)) 1 applic TP BID [facility] Last Admin: 11/02/16 21:25 Dose: 1 applic Collagenase (Santyl -) 1 applic TP DAILY [facility] Last Admin: 11/02/16 10:54 Dose: 1 applic Dextrose (D50w (Vial) -) 50 gm IVPUSH Q15M PRN PRN Reason: BLOOD SUGAR < 60 Enoxaparin Sodium (Lovenox -) 40 mg SQ BID [facility] Last Admin: 11/02/16 21:24 Dose: 40 mg Furosemide (Lasix -) 20 mg GT DAILY [facility] Last Admin: 11/02/16 10:53 Dose: 20 mg IV Flush (Picc Line Flush) 8 ml IVPUSH PRN PRN PRN Reason: Protocol Last Admin: 10/24/16 09:10 Dose: 8 ml Insulin Aspart (Novolog Vial Sliding Scale -) 1 vial SQ ACHS [facility] PRN Reason: Protocol Last Admin: 11/03/16 06:00 Dose: Not Given Insulin Detemir (Levemir Vial) 40 units SQ HS [facility] Last Admin: 11/02/16 21:25 Dose: 40 units Miscellaneous (Duragesic Patch Waste) 1 each TD PRN PRN PRN Reason: PAIN Last Admin: 09/26/16 15:41 Dose: 1 each Potassium Chloride (Potassium Chloride Oral Liquid) 40 meq GT BID [facility] Last Admin: 11/02/16 21:24 Dose: 40 meq Ranitidine HCl (Zantac Oral Solution -) 150 mg PO BID [facility] Last Admin: 11/02/16 21:24 Dose: 150 mg - Objective Vital Signs: Vital Signs Temperature 98.7 F 11/03/16 02:00 Pulse Rate 69 11/03/16 02:00 Respiratory Rate 16 11/03/16 06:05 Blood Pressure 111/50 11/03/16 02:00 O2 Sat by Pulse Oximetry (%) 100 11/02/16 14:22 Middle aged F gradually improving. 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 DERM; gradually healing extensive skin peeling and gangrene of fingers and toes Labs: CBC, BMP 11/03/16 06:10 11/03/16 06:10 INR, PTT INR 1.14 (0.82-1.09) 09/07/16 22:45 Fibrinogen > 700.0 mg/dL (238-498) H 07/31/16 05:40 Problem List - Problems (1) Perforated abdominal viscus (2) Acute metabolic encephalopathy Code(s): G93.41 - METABOLIC ENCEPHALOPATHY (3) Ischemia of extremity Code(s): I99.8 - OTHER DISORDER OF CIRCULATORY SYSTEM (4) Severe malnutrition Code(s): E43 - UNSPECIFIED SEVERE PROTEIN-CALORIE MALNUTRITION (5) Diabetes mellitus Code(s): E11.9 - TYPE 2 DIABETES MELLITUS WITHOUT COMPLICATIONS Qualifiers: Diabetes mellitus type: type 2
[2016-11-03] MEDS ORDERED: PT OWN MED DRAWER 7, Y5N ONE (10:53)
[2016-11-03] MEDS: POTASSIUM CHLORIDE ORAL LIQUID 20 MEQ/15 ML GT SCH (10:55)
[2016-11-03] MEDS: FUROSEMIDE 20 MG TABLET (FP) GT SCH (10:56)
[2016-11-03] MEDS: COLLAGENASE CLOSTRIDIUM HIST. 30 GRAMS TUBE TP SCH (10:56)
[2016-11-03] MEDS: CLOTRIMAZOLE/BETAMET DIPROP 15 GM TUBE TP SCH (10:56)
[2016-11-03] MEDS: RANITIDINE HCL 150 MG/10 ML UNIT-DOSE CUP PO SCH (10:56)
[2016-11-03] MEDS: ENOXAPARIN NA (PORCINE) 40 MG/0.4 ML DISP.SYRIN SQ SCH (10:56)
[2016-11-03] MEDS ORDERED: INSULIN (NOVOLOG) ASPART 100 UNITS/ML 10ML VIAL ONE (11:22)
--- NOTE | 2016-11-03 12:42 | PN ---
Progress Note, Physician History of Present Illness: pulmonary alert on vent support,ac mode,-resp distress - Current Medication List Current Medications: Active Medications Acetaminophen (Tylenol Oral Solution -) 650 mg PO Q4H PRN PRN Reason: FEVER OR PAIN Last Admin: 10/31/16 05:40 Dose: 650 mg Clotrimazole (Lotrisone Cream (Small Tube)) 1 applic TP BID [facility] Last Admin: 11/03/16 10:56 Dose: 1 applic Collagenase (Santyl -) 1 applic TP DAILY [facility] Last Admin: 11/03/16 10:56 Dose: 1 applic Dextrose (D50w (Vial) -) 50 gm IVPUSH Q15M PRN PRN Reason: BLOOD SUGAR < 60 Enoxaparin Sodium (Lovenox -) 40 mg SQ BID [facility] Last Admin: 11/03/16 10:56 Dose: 40 mg Furosemide (Lasix -) 20 mg GT DAILY [facility] Last Admin: 11/03/16 10:56 Dose: 20 mg IV Flush (Picc Line Flush) 8 ml IVPUSH PRN PRN PRN Reason: Protocol Last Admin: 10/24/16 09:10 Dose: 8 ml Insulin Aspart (Novolog Vial Sliding Scale -) 1 vial SQ ACHS [facility] PRN Reason: Protocol Last Admin: 11/03/16 11:24 Dose: 4 units Insulin Detemir (Levemir Vial) 40 units SQ HS [facility] Last Admin: 11/02/16 21:25 Dose: 40 units Miscellaneous (Duragesic Patch Waste) 1 each TD PRN PRN PRN Reason: PAIN Last Admin: 09/26/16 15:41 Dose: 1 each Potassium Chloride (Potassium Chloride Oral Liquid) 40 meq GT BID [facility] Last Admin: 11/03/16 10:55 Dose: 40 meq Ranitidine HCl (Zantac Oral Solution -) 150 mg PO BID [facility] Last Admin: 11/03/16 10:56 Dose: 150 mg - Objective Vital Signs: Vital Signs Temperature 98.7 F 11/03/16 02:00 Pulse Rate 70 11/03/16 09:38 Respiratory Rate 14 11/03/16 09:37 Blood Pressure 111/50 11/03/16 02:00 O2 Sat by Pulse Oximetry (%) 100 11/03/16 11:04 Constitutional: Yes: Calm, Thin Eyes: Yes: WNL HENT: Yes: WNL Neck: Yes: Supple (trach) Cardiovascular: Yes: Regular Rate and Rhythm, S1, S2 Respiratory: Yes: Diminished Gastrointestinal: Yes: Normal Bowel Sounds, Soft Extremities: Yes: Other (elia gangrene feet and hands) Edema: No Labs: CBC, BMP 11/03/16 06:10 11/03/16 06:10 INR, PTT INR 1.14 (0.82-1.09) 09/07/16 22:45 Fibrinogen > 700.0 mg/dL (238-498) H 07/31/16 05:40 Problem List - Problems (1) ZAHIRA (acute kidney injury) Code(s): N17.9 - ACUTE KIDNEY FAILURE, UNSPECIFIED (2) Acute metabolic encephalopathy Code(s): G93.41 - METABOLIC ENCEPHALOPATHY (3) Ischemia of extremity Code(s): I99.8 - OTHER DISORDER OF CIRCULATORY SYSTEM (4) Metabolic acidemia Code(s): E87.2 - ACIDOSIS (5) Perforated abdominal viscus Code(s): QEO5612 - (6) Sepsis Code(s): A41.9 - SEPSIS, UNSPECIFIED ORGANISM (7) Acute respiratory failure Code(s): J96.00 - ACUTE RESPIRATORY FAILURE, UNSP W HYPOXIA OR HYPERCAPNIA Assessment/Plan ASSESSMENT AND PLAN: Perforated Duodenal Ulcer Peritonitis s/p ex-lap/omental patch repair 07/16 Enterocutaneous Fistula Acute Respiratory Failure s/p Tracheostomy s/p Septic Shock DM DVT Gangrene s/p PEA Cardiac Arrest - Fio2 to keep Spo2 >90% - anticoagulation - DVT/GI prophylaxis - wean as tolerated - po as tolerated - placement DR OSEI
--- NOTE | 2016-11-03 12:43 | PN ---
Progress Note, Physician History of Present Illness: stable no new issues awake and alert talkng tolerating diet - Current Medication List Current Medications: Active Medications Acetaminophen (Tylenol Oral Solution -) 650 mg PO Q4H PRN PRN Reason: FEVER OR PAIN Last Admin: 10/31/16 05:40 Dose: 650 mg Clotrimazole (Lotrisone Cream (Small Tube)) 1 applic TP BID [facility] Last Admin: 11/03/16 10:56 Dose: 1 applic Collagenase (Santyl -) 1 applic TP DAILY [facility] Last Admin: 11/03/16 10:56 Dose: 1 applic Dextrose (D50w (Vial) -) 50 gm IVPUSH Q15M PRN PRN Reason: BLOOD SUGAR < 60 Enoxaparin Sodium (Lovenox -) 40 mg SQ BID [facility] Last Admin: 11/03/16 10:56 Dose: 40 mg Furosemide (Lasix -) 20 mg GT DAILY [facility] Last Admin: 11/03/16 10:56 Dose: 20 mg IV Flush (Picc Line Flush) 8 ml IVPUSH PRN PRN PRN Reason: Protocol Last Admin: 10/24/16 09:10 Dose: 8 ml Insulin Aspart (Novolog Vial Sliding Scale -) 1 vial SQ ACHS [facility] PRN Reason: Protocol Last Admin: 11/03/16 11:24 Dose: 4 units Insulin Detemir (Levemir Vial) 40 units SQ HS [facility] Last Admin: 11/02/16 21:25 Dose: 40 units Miscellaneous (Duragesic Patch Waste) 1 each TD PRN PRN PRN Reason: PAIN Last Admin: 09/26/16 15:41 Dose: 1 each Potassium Chloride (Potassium Chloride Oral Liquid) 40 meq GT BID [facility] Last Admin: 11/03/16 10:55 Dose: 40 meq Ranitidine HCl (Zantac Oral Solution -) 150 mg PO BID [facility] Last Admin: 11/03/16 10:56 Dose: 150 mg - Objective Vital Signs: Vital Signs Temperature 98.7 F 11/03/16 02:00 Pulse Rate 70 11/03/16 09:38 Respiratory Rate 14 11/03/16 09:37 Blood Pressure 111/50 11/03/16 02:00 O2 Sat by Pulse Oximetry (%) 100 11/03/16 11:04 Constitutional: Yes: No Distress, Calm Cardiovascular: Yes: Regular Rate and Rhythm Respiratory: Yes: Regular, Mechanically Ventilated, Other Gastrointestinal: Yes: Normal Bowel Sounds, Soft, Other (peg in place) Musculoskeletal: Yes: Other Extremities: Yes: Other (dry gangrene of the toes and digits) Neurological: Yes: Alert, Oriented Psychiatric: Yes: Alert Labs: CBC, BMP 11/03/16 06:10 11/03/16 06:10 INR, PTT INR 1.14 (0.82-1.09) 09/07/16 22:45 Fibrinogen > 700.0 mg/dL (238-498) H 07/31/16 05:40 Assessment/Plan Problem List - Problems (1) Abdominal pain Code(s): R10.9 - UNSPECIFIED ABDOMINAL PAIN Qualifiers: Qualified Code(s): R10.33 - Periumbilical pain (2) Perforated abdominal viscus Code(s): TLM2549 - (3) Perforated viscus Code(s): R19.8 - OTH SYMPTOMS AND SIGNS INVOLVING THE DGSTV SYS AND ABDOMEN (4) Hypertension Code(s): I10 - ESSENTIAL (PRIMARY) HYPERTENSION Qualifiers: Qualified Code(s): I10 - Essential (primary) hypertension lactic acidosis fevers generalized swelling gangrene of the tip of the fingers noted pseudomonas pneumonia plan continue current mgmt nutrition rest as per primary team wound care patient tolerating food advance as tolerated orally patient has completed treatment for both mrsa pna and pseudomonas patient can be off of isolation in the [facility]
--- NOTE | 2016-11-03 13:06 | PN ---
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 Consider thin liquids, oral liquid supplements per RD.
[2016-11-03 15:50] VITALS: BP 109/53; PULSE 85; TEMP 99.8
--- NOTE | 2016-11-03 17:58 | DS ---
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 DERM; Sacral Decubitus stage 2, gradually healing extensive skin peeling and gangrene of fingers and toes Findings/Remarks: Patient admitted with bdominal pain jaundice w/o shows ruptured Duodenal ulcer , underwent , exploratory laprotomy developed septic shock, patient was on multiple vasspressors, to maintain BP developed extremities ischemia, , had an episode of cardiac arrest s/p resuscitation, also developed Hypoxic encephalopathy that is improving, underwent G Tube placement, at present patient is breathing spontaneously, G tube in plaace fr feeding, Post Op fistla with colostomy bag and fecal collection tube making great progress, afebrile .CBC BMP are at base line, needs wound care and Labs: CBC, BMP 11/03/16 06:10 11/03/16 06:10 CBC,CMP WBC 7.9 K/mm3 (4.0-10.0) 11/03/16 06:10 RBC 3.02 M/mm3 (3.60-5.2) L 11/03/16 06:10 Hgb 8.8 GM/dL (10.7-15.3) L 11/03/16 06:10 Hct 26.6 % (32.4-45.2) L 11/03/16 06:10 MCV 88.3 fl (80-96) 11/03/16 06:10 MCH 29.2 pg (25.7-33.7) 11/03/16 06:10 MCHC 33.0 g/dl (32.0-36.0) 11/03/16 06:10 RDW 14.9 % (11.6-15.6) 11/03/16 06:10 Plt Count 440 K/MM3 (134-434) H 11/03/16 06:10 MPV 7.3 fl (7.5-11.1) L 11/03/16 06:10 Neutrophils % 49.8 % (42.8-82.8) 11/03/16 06:10 Lymphocytes % 35.4 % (8-40) 11/03/16 06:10 Monocytes % 9.6 % (3.8-10.2) 11/03/16 06:10 Eosinophils % 4.3 % (0-4.5) 11/03/16 06:10 Basophils % 0.9 % (0-2.0) 11/03/16 06:10 Band Neutrophils 2.0 % (0-10) D 09/07/16 22:45 Metamyelocytes 3 % (0-2) H D 08/07/16 05:30 Myelocytes 1 % (0-2) D 08/13/16 05:30 Nucleated RBCs 1 % (0-0) H 08/03/16 05:20 Differential Comment Manual diff done 08/13/16 05:30 Reactive Lymphocytes 1 % (0-80) 07/29/16 05:30 Plasma Cells 1 (0-20) 08/01/16 10:00 Smudge Cells 1 08/03/16 05:20 Toxic Granulation 1+ 07/20/16 05:30 Dohle Bodies 2+ 07/20/16 05:30 Platelet Estimate Increased (NORMAL) 08/19/16 05:30 Platelet Comment No clumping noted 08/03/16 05:20 Platelet Comment No clotting detected 08/02/16 05:40 Polychromasia 1+ 08/02/16 05:40 Hypochromic-Microcytic 1+ 08/18/16 01:37 Poikilocytosis 1+ 08/02/16 05:40 Anisocytosis 1+ 08/18/16 01:37 Target Cells 2+ 07/28/16 05:35 Norris Cells 1+ 07/20/16 05:30 Haptoglobin 269 mg/dL (34-200) H 07/24/16 05:30 Sodium 138 mmol/L (136-145) 11/03/16 06:10 Potassium 4.4 mmol/L (3.5-5.1) 11/03/16 06:10 Chloride 101 mmol/L (98-107) 11/03/16 06:10 Carbon Dioxide 30 mmol/L (21-32) 11/03/16 06:10 Anion Gap 7 (8-16) L 11/03/16 06:10 BUN 16 mg/dL (7-18) D 11/03/16 06:10 Creatinine 0.2 mg/dL (0.55-1.02) L D 11/03/16 06:10 Creat Clearance w eGFR > 60 (>60) 11/03/16 06:10 POC Glucometer 188 UNITS (()) 11/03/16 11:20 Random Glucose 87 mg/dL (74-106) D 11/03/16 06:10 Hemoglobin A1c % 7.6 % (4.8-6.0) H D 10/02/16 06:20 Lactic Acid 1.6 mmol/L (0.4-2.0) 09/07/16 22:45 Calcium 9.7 mg/dL (8.5-10.1) 11/03/16 06:10 Phosphorus 3.1 mg/dL (2.5-4.9) 09/15/16 05:05 Magnesium 1.7 mg/dL (1.8-2.4) L 10/31/16 19:00 Direct Bilirubin 0.2 mg/dL (0.0-0.2) D 08/05/16 05:30 Total Bilirubin 0.2 mg/dL (0.2-1.0) 11/03/16 06:10 AST 11 U/L (15-37) L 11/03/16 06:10 ALT 18 U/L (12-78) 11/03/16 06:10 Alkaline Phosphatase 83 U/L (45-117) 11/03/16 06:10 LD Total 562 U/L (84-246) H 07/24/16 05:30 CK-MB (CK-2) 4.85 ng/ml (0.5-3.6) H 07/16/16 10:42 Ammonia 64.01 umol/L (11-32) H 09/07/16 22:45 Creatine Kinase 51 IU/L (26-192) 09/09/16 05:50 Troponin I 1.39 ng/ml (0.00-0.05) H* 09/09/16 21:45 Total Protein 6.3 g/dl (6.4-8.2) L 11/03/16 06:10 Albumin 2.4 g/dl (3.4-5.0) L 11/03/16 06:10 Triglycerides 215 mg/dL (35-160) H 08/05/16 05:30 Lipase 128 U/L (73-393) 07/16/16 10:19 Cortisol AM Sample 9.5 ug/dL (.) 07/19/16 05:30 Discharge Summary Reason For Visit: ABD PAIN,JAUNDICE Current Active Problems ZAHIRA (acute kidney injury) (Acute) Abdominal pain (Acute) Acute metabolic encephalopathy (Acute) Acute respiratory failure (Acute) Anemia (Acute) Cardiac arrest due to respiratory disorder (Acute) Diabetes mellitus (Acute) Hepatic abscess (Acute) Hypertension (Acute) Hypokalemia (Acute) Hypomagnesemia (Acute) Ischemia of extremity (Acute) Jaundice (Acute) Metabolic acidemia (Acute) Metabolic acidosis (Acute) Perforated abdominal viscus (Acute) Perforated viscus (Acute) Pseudomonas pneumonia (Acute) Respiratory failure (Acute) Sepsis (Acute) Severe malnutrition (Acute) Thrombocytopenia (Acute) Ventilator dependence (Acute) Procedures: Principal: Underwent exploratory laprotomy for ruptured duodenal ulcer with sepsis, septic shock,. Rt IJ line. G Tube. Tracheostomy Condition: Improved - Instructions Diet, Activity, Other Instructions: G Tube feeding during day and oral feeding as recommonded by speech and swallow. Referrals: Larry Miranda MD [Primary Care Provider] - Disposition: ASSISTED FACILITY - Home Medications Comprehensive Discharge Medication List: Ambulatory Orders Glipizide Xl [Glucotrol Xl -] 5 mg PO DAILY 01/30/16 Lisinopril [Zestril] 30 mg PO DAILY 01/30/16 Metformin HCl [Metformin HCl ER] 1,000 mg PO BIDAC 01/30/16 Simvastatin 10 mg PO HS 01/30/16 Aspirin Coated [Ecotrin -] 81 mg PO DAILY 04/15/16 Alprazolam [Xanax] 0.5 mg GT Q8H PRN #0 tablet MDD 1.5 10/21/16 Collagenase Clostridium Hist. [Santyl -] 1 applic TP DAILY #0 tube 10/28/16 Insulin (Levemir) [Levemir Vial] 40 units SQ HS #0 ml 10/28/16 Enoxaparin [Lovenox -] 40 mg SQ DAILY #0 amp 11/03/16 Insulin Sliding Scale [Novolog Vial Sliding Scale -] 1 vial SQ ACHS #0 units Potassium Chloride [Potassium Chloride Oral Liquid] 20 meq GT BID #60 tab Ranitidine Oral Solution [Zantac Oral Solution -] 150 mg PO DAILY #30 tab
== END 2016-11-03 18:57 | DRG 3 ==
LOC: JER 09:50 → JERBED 14:58 → JICU 21:40 → J5S 08-13 21:05 → JICU 09-07 22:20 → J5S 09-15 18:10
PROVIDERS: ADMIT Internal Medicine; ATTEND Internal Medicine
PROC: 0DU907Z Supplement Duodenum with Autologous Tissue Substitute, Open Approach (ICD-10-PCS; 2016-07-16)
PROC: 5A1955Z Respiratory Ventilation, Greater than 96 Consecutive Hours (ICD-10-PCS; 2016-07-16)
PROC: 0WJJ0ZZ Inspection of Pelvic Cavity, Open Approach (ICD-10-PCS; 2016-07-16)
PROC: 0FN00ZZ Release Liver, Open Approach (ICD-10-PCS; 2016-07-16)
PROC: 0FN40ZZ Release Gallbladder, Open Approach (ICD-10-PCS; 2016-07-16)
PROC: 3E1M38Z Irrigation of Peritoneal Cavity using Irrigating Substance, Percutaneous Approach (ICD-10-PCS; 2016-07-16)
PROC: 0BH17EZ Insertion of Endotracheal Airway into Trachea, Via Natural or Artificial Opening (ICD-10-PCS; 2016-07-16)
PROC: 30233R1 Transfusion of Nonautologous Platelets into Peripheral Vein, Percutaneous Approach (ICD-10-PCS; 2016-07-19)
PROC: 3E0G76Z Introduction of Nutritional Substance into Upper GI, Via Natural or Artificial Opening (ICD-10-PCS; 2016-07-25)
PROC: 05HN33Z Insertion of Infusion Device into Left Internal Jugular Vein, Percutaneous Approach (ICD-10-PCS; 2016-07-31)
PROC: B544ZZA Ultrasonography of Left Jugular Veins, Guidance (ICD-10-PCS; 2016-07-31)
PROC: 3E0436Z Introduction of Nutritional Substance into Central Vein, Percutaneous Approach (ICD-10-PCS; 2016-07-31)
PROC: 05H533Z Insertion of Infusion Device into Right Subclavian Vein, Percutaneous Approach (ICD-10-PCS; 2016-08-08)
PROC: B516ZZA Fluoroscopy of Right Subclavian Vein, Guidance (ICD-10-PCS; 2016-08-08)
PROC: 0B113F4 Bypass Trachea to Cutaneous with Tracheostomy Device, Percutaneous Approach (ICD-10-PCS; principal; 2016-08-08 12:30)
PROC: 0F903ZZ Drainage of Liver, Percutaneous Approach (ICD-10-PCS; 2016-08-26)
PROC: 0D20XUZ Change Feeding Device in Upper Intestinal Tract, External Approach (ICD-10-PCS; 2016-08-29)
PROC: 30233N1 Transfusion of Nonautologous Red Blood Cells into Peripheral Vein, Percutaneous Approach (ICD-10-PCS; 2016-09-14)
DX: K26.5 Chronic or unspecified duodenal ulcer with perforation (principal); A41.9 Sepsis, unspecified organism; K65.0 Generalized (acute) peritonitis; R65.21 Severe sepsis with septic shock; J96.00 Acute respiratory failure, unspecified whether with hypoxia or hypercapnia; G93.41 Metabolic encephalopathy; J15.1 Pneumonia due to Pseudomonas; E43 Unspecified severe protein-calorie malnutrition; K75.0 Abscess of liver; I46.9 Cardiac arrest, cause unspecified; L89.154 Pressure ulcer of sacral region, stage 4; K31.6 Fistula of stomach and duodenum; E87.4 Mixed disorder of acid-base balance; N17.9 Acute kidney failure, unspecified; J90 Pleural effusion, not elsewhere classified; J98.11 Atelectasis; I96 Gangrene, not elsewhere classified; R64 Cachexia; D68.9 Coagulation defect, unspecified; T82.868A Thrombosis due to vascular prosthetic devices, implants and grafts, initial encounter; I82.611 Acute embolism and thrombosis of superficial veins of right upper extremity; I82.C11 Acute embolism and thrombosis of right internal jugular vein; G93.1 Anoxic brain damage, not elsewhere classified; L89.102 Pressure ulcer of unspecified part of back, stage 2; K82.8 Other specified diseases of gallbladder; K66.0 Peritoneal adhesions (postprocedural) (postinfection); I10 Essential (primary) hypertension; E11.9 Type 2 diabetes mellitus without complications; F10.10 Alcohol abuse, uncomplicated; F03.90 Unspecified dementia, unspecified severity, without behavioral disturbance, psychotic disturbance, mood disturbance, and anxiety; R63.4 Abnormal weight loss; Z68.30 Body mass index [BMI] 30.0-30.9, adult; E83.39 Other disorders of phosphorus metabolism; E87.6 Hypokalemia; E83.42 Hypomagnesemia; D69.59 Other secondary thrombocytopenia; E83.51 Hypocalcemia; D70.9 Neutropenia, unspecified; E56.1 Deficiency of vitamin K; I25.10 Atherosclerotic heart disease of native coronary artery without angina pectoris; E78.00 Pure hypercholesterolemia, unspecified; F17.220 Nicotine dependence, chewing tobacco, uncomplicated; E86.1 Hypovolemia; Z79.84 Long term (current) use of oral hypoglycemic drugs; I95.9 Hypotension, unspecified; D63.8 Anemia in other chronic diseases classified elsewhere; Z78.1 Physical restraint status; Y84.8 Other medical procedures as the cause of abnormal reaction of the patient, or of later complication, without mention of misadventure at the time of the procedure; Y92.230 Patient room in hospital as the place of occurrence of the external cause; D64.9 Anemia, unspecified; R23.0 Cyanosis; E87.8 Other disorders of electrolyte and fluid balance, not elsewhere classified; R60.9 Edema, unspecified; R06.89 Other abnormalities of breathing; Y90.9 Presence of alcohol in blood, level not specified
CPT/HCPCS: 36415; 36430; 36511; 36556; 36569; 36580; 36600; 49406; 49440; 49450; 70450-TC; 71010-TC; 71250-TC; 74000-TC; 74176-TC; 74230-TC; 76000-TC; 76705-TC; 77001-TC; 80048; 80053; 80076; 81003; 81015; 82140; 82533; 82550; 82553; 82570; 82803; 82947; 83010; 83036; 83605; 83615; 83690; 83735; 84100; 84300; 84478; 84484; 84630; 85025; 85027; 85384; 85610; 85730; 86022; 86850; 86900; 86901; 86922; 87040; 87070; 87075; 87077; 87081; 87086; 87116; 87186; 87205; 87206; 87324; 87449; 92611-GN; 93005; 93010; 93306-TC; 93970-TC; 94002; 94640; 94760; 97162-GP; 99285-25; C1729; C1751; C1769; C1887; G0480; P9034; P9038; P9058; Q9967